=== PATIENT | male | born 1960 | race Caucasian/White ===

== ENCOUNTER 2016-07-14 14:32 | Inpatient (IN) | payer OTHER ==
[2016-07-14] MEDS ORDERED: LORazepam 1 MG TAB PO STA (15:02)
[2016-07-14] MEDS ORDERED: SODIUM CHLORIDE 0.9% 1,000 ML with MVI, ADULT NO.4 WITH VIT K 10 ML, THIAMINE 100 MG, F... IV ONE ×4 (15:30)
[2016-07-14 15:39] LABS: Basophils # (A) 0.1 k/uL (0-0.2); Basophils % (A) 1 %; CH 34.1; CHCM 32.8; Eosinophils # (A) 0.1 k/uL (0-0.7); Eosinophils % (A) 2 %; HCT 47.3 % (39.0-53.0); HDW 2.07; HGB 15.2 gm/dL (13.0-17.5); Luc # (Auto) 0.29; Luc % (Auto) 4; Lymphocytes # (A) 1.9 k/uL (1.0-4.8); Lymphocytes % (A) 24 %; MCH 33.6 pg (25.0-35.0); MCHC 32.3 g/dL (31.0-37.0); MCV 104.2 fL (80.0-100.0); Macrocytosis Moderate; Mean Platelet Volume 6.5; Monocytes # (A) 0.5 k/uL (0-1.0); Monocytes % (A) 6 %; Neutrophils # (A) 5.1 k/uL (1.3-7.7); Neutrophils % (A) 64 %; RBC 4.54 m/uL (4.30-5.90); RDW 14.6 % (11.5-15.5)
[2016-07-14] MEDS ORDERED: ZIPRASIDONE 20 MG VIAL IM STA (15:41)
[2016-07-14 15:44] LABS: Prothrombin Time 10.6 sec (9.0-12.0)
[2016-07-14 15:54] LABS: ALT 37 U/L (21-72); AST 37 U/L (17-59); Alkaline Phosphatase 118 U/L (38-126); Anion Gap 19 mmol/L; Blood Urea Nitrogen 12 mg/dL (9-20); Calcium 8.3 mg/dL (8.4-10.2); Carbon Dioxide 15 mmol/L (22-30); Chloride 101 mmol/L (98-107); Glucose 88 mg/dL (74-99); Magnesium 1.9 mg/dL (1.6-2.3); Non-African American GFR(MDRD) 57 (>60 ml/min/1.73 sqM); Potassium 4.6 mmol/L (3.5-5.1); Sodium 135 mmol/L (137-145); Total Bilirubin 0.7 mg/dL (0.2-1.3)
[2016-07-14 16:12] LABS: Alcohol 365 mg/dL
--- NOTE | 2016-07-14 16:19 | ED ---
Psych HPI - General Chief Complaint: Psychiatric Symptoms Stated Complaint: Mental Health Time Seen by Provider: 07/14/16 14:45 Source: patient, police, RN notes reviewed Mode of arrival: ambulatory - History of Present Illness Initial Comments: This is a 56-year-old male history of alcoholism was brought in by [place] police department for evaluation for hallucinations. Patient apparently is a known drinker but he call police today because he stated people were in his house worshiping Satan and he was trying to get them on of his living room. He was brought in under petition. He denies any abnormalities at this time denies any fevers chills or sweats does admit to drinking. Denies any trauma denies any other problems. MD Complaint: altered mental status - Related Data Home Medications Medication Instructions Recorded Confirmed busPIRone HCL 15 mg PO 5XD 04/22/16 07/14/16 LORazepam [Ativan] 1 mg PO BID 07/14/16 07/14/16 Pantoprazole Sodium [Protonix] 40 mg PO DAILY 07/14/16 07/14/16 Zolpidem [Ambien] 10 mg PO HS 07/14/16 07/14/16 Allergies Allergy/AdvReac Type Severity Reaction Status Date / Time tramadol Allergy Mild Itching Verified 07/14/16 16:00 Review of Systems ROS Statement: Those systems with pertinent positive or pertinent negative responses have been documented in the HPI. ROS Other: All systems not noted in ROS Statement are negative. Past Medical History Past Medical History: GERD/Reflux, Osteoarthritis (OA), Seizure Disorder Additional Past Medical History / Comment(s): RECENT URI, DONE WITH ANTIBIOTICS , STILL ON STEROIDS. 1 SEIZURE APPROX 2010, alcoholism History of Any Multi-Drug Resistant Organisms: None Reported Past Surgical History: Appendectomy, Hernia Repair, Orthopedic Surgery, Tonsillectomy Additional Past Surgical History / Comment(s): multiple hernia surg., knee arthroscopies, Past Anesthesia/Blood Transfusion Reactions: No Reported Reaction Past Psychological History: Anxiety, Depression Additional Psychological History / Comment(s): Depression history and current depression from family issues currently Smoking Status: Former smoker Past Alcohol Use History: Abuse, Daily, Heavy Additional Past Alcohol Use History / Comment(s): States he stopped smoking and drinking . STATES HE IS DRINKING 2 BEERS A DAY. Past Drug Use History: Cocaine, Prescription Drug Abuse - Past Family History Father Family Medical History: Coronary Artery Disease (CAD), Myocardial Infarction (ID ) Mother Family Medical History: Cancer General Exam - General Exam Comments Initial Comments: This is a well-developed well-nourished awake alert oriented 3 male he is anxious. He does have the smell of alcohol on his breath Limitations: no limitations General appearance: alert, anxious Head exam: Present: atraumatic, normocephalic, normal inspection Eye exam: Present: normal appearance, PERRL, EOMI. Absent: scleral icterus, conjunctival injection, periorbital swelling ENT exam: Present: normal exam, mucous membranes moist Neck exam: Present: normal inspection. Absent: tenderness, meningismus, lymphadenopathy Respiratory exam: Present: normal lung sounds bilaterally. Absent: respiratory distress, wheezes, rales, rhonchi, stridor Cardiovascular Exam: Present: normal rhythm, tachycardia, normal heart sounds. Absent: systolic murmur, diastolic murmur, rubs, gallop, clicks GI/Abdominal exam: Present: soft, normal bowel sounds. Absent: distended, tenderness, guarding, rebound, rigid Extremities exam: Present: normal inspection, full ROM, normal capillary refill. Absent: tenderness, pedal edema, joint swelling, calf tenderness Back exam: Present: normal inspection Neurological exam: Present: alert, oriented X3, CN II-XII intact Psychiatric exam: Present: agitated, anxious, manic Skin exam: Present: warm, dry, intact, normal color. Absent: rash Course Vital Signs 07/14/16 14:36 Temperature 97.4 F L Pulse Rate 116 H Respiratory 20 Rate Blood Pressure 142/91 O2 Sat by Pulse 93 L Oximetry - Reevaluation(s) Reevaluation #1: 07/14/16 18:16 Patient did require chemical sedation due to erratic behavior and some threatening behavior toward staff. He did respond well to Geodon and Ativan. Medical Decision Making - Medical Decision Making I did discuss the findings with Dr. Sainz. Patient be admitted for evaluation for alcohol withdrawal syndrome hallucinosis and psychosis. She is a heavy drinker the fears for withdrawal syndrome. Due to the interstitial markings patient did state he smokes and likely has "bad lungs" shot of Rocephin. - Lab Data Result diagrams: 07/14/16 15:25 07/14/16 15:25 Lab Results 07/14/16 07/14/16 07/14/16 Range/Units 15:25 15:25 15:25 WBC 8.0 (3.8-10.6) k/uL RBC 4.54 (4.30-5.90) m/uL Hgb 15.2 (13.0-17.5) gm/dL Hct 47.3 (39.0-53.0) % MCV 104.2 H (80.0-100.0) fL MCH 33.6 (25.0-35.0) pg MCHC 32.3 (31.0-37.0) g/dL RDW 14.6 (11.5-15.5) % Plt Count 255 (150-450) k/uL Neutrophils % 64 % Lymphocytes % 24 % Monocytes % 6 % Eosinophils % 2 % Basophils % 1 % Neutrophils # 5.1 (1.3-7.7) k/uL Lymphocytes # 1.9 (1.0-4.8) k/uL Monocytes # 0.5 (0-1.0) k/uL Eosinophils # 0.1 (0-0.7) k/uL Basophils # 0.1 (0-0.2) k/uL Macrocytosis Moderate PT 10.6 (9.0-12.0) sec INR 1.0 (<1.1) Sodium 135 L (137-145) mmol/L Potassium 4.6 (3.5-5.1) mmol/L Chloride 101 (98-107) mmol/L Carbon Dioxide 15 L (22-30) mmol/L Anion Gap 19 mmol/L BUN 12 (9-20) mg/dL Creatinine 1.30 H (0.66-1.25) mg/dL Est GFR (MDRD) Af Amer >60 (>60 ml/min/1.73 sqM) Est GFR (MDRD) Non-Af 57 (>60 ml/min/1.73 sqM) Glucose 88 (74-99) mg/dL Calcium 8.3 L (8.4-10.2) mg/dL Magnesium 1.9 (1.6-2.3) mg/dL Total Bilirubin 0.7 (0.2-1.3) mg/dL AST 37 (17-59) U/L ALT 37 (21-72) U/L Alkaline Phosphatase 118 (38-126) U/L Ammonia (<30) umol/L Total Protein 7.0 (6.3-8.2) g/dL Albumin 4.0 (3.5-5.0) g/dL Serum Alcohol 365 mg/dL 07/14/16 Range/Units 15:25 WBC (3.8-10.6) k/uL RBC (4.30-5.90) m/uL Hgb (13.0-17.5) gm/dL Hct (39.0-53.0) % MCV (80.0-100.0) fL MCH (25.0-35.0) pg MCHC (31.0-37.0) g/dL RDW (11.5-15.5) % Plt Count (150-450) k/uL Neutrophils % % Lymphocytes % % Monocytes % % Eosinophils % % Basophils % % Neutrophils # (1.3-7.7) k/uL Lymphocytes # (1.0-4.8) k/uL Monocytes # (0-1.0) k/uL Eosinophils # (0-0.7) k/uL Basophils # (0-0.2) k/uL Macrocytosis PT (9.0-12.0) sec INR (<1.1) Sodium (137-145) mmol/L Potassium (3.5-5.1) mmol/L Chloride (98-107) mmol/L Carbon Dioxide (22-30) mmol/L Anion Gap mmol/L BUN (9-20) mg/dL Creatinine (0.66-1.25) mg/dL Est GFR (MDRD) Af Amer (>60 ml/min/1.73 sqM) Est GFR (MDRD) Non-Af (>60 ml/min/1.73 sqM) Glucose (74-99) mg/dL Calcium (8.4-10.2) mg/dL Magnesium (1.6-2.3) mg/dL Total Bilirubin (0.2-1.3) mg/dL AST (17-59) U/L ALT (21-72) U/L Alkaline Phosphatase (38-126) U/L Ammonia 21 (<30) umol/L Total Protein (6.3-8.2) g/dL Albumin (3.5-5.0) g/dL Serum Alcohol mg/dL - Radiology Data Radiology results: report reviewed (CAT scan was reviewed no acute findings. X- ray shows some evidence of increased interstitial markings.), image reviewed Disposition Clinical Impression: Acute psychosis, Alcohol withdrawal, Alcohol intoxication, Acute anxiety Disposition: ADMITTED IP TO THIS HOSP Condition: Stable
--- NOTE | 2016-07-14 18:05 | XR ---
EXAMINATION TYPE: XR chest 1V portable DATE OF EXAM: 07/14/2016 5:56 PM COMPARISON: 02/02/2016 HISTORY: Altered mental status TECHNIQUE: Single frontal view of the chest is obtained. FINDINGS: Heart size is normal. There is coarse interstitial density in both lungs with some optimal inspiration. There are no definite hilar masses. There is slight blunting of costophrenic angles. IMPRESSION: There are new interstitial pulmonary infiltrates and pleural reaction compared to last e xam. No gross heart failure.
--- NOTE | 2016-07-14 18:15 | CT ---
EXAMINATION TYPE: CT brain wo con DATE OF EXAM: 07/14/2016 6:06 PM COMPARISON: 12/21/2015 HISTORY: Patient unresponsive at time of exam. Altered mental status. CT DLP: 873.6 mGycm Automated exposure control for dose reduction was used. FINDINGS: There is cerebral cortical atrophy. There is no mass effect nor midline shift. There is mild enlargem ent of the ventricles. The calvarium is intact. There is no sign of intracranial hemorrhage. IMPRESSION: Cerebral atrophy and normal pressure type hydrocephalus. No acute intracranial abnormality. No change compared to last exam.
[2016-07-14] MEDS ORDERED: NALOXONE 0.4 MG/ML 1 ML VIAL IV PRN (18:19)
[2016-07-14] MEDS ORDERED: LORazepam 2 MG/ML SYRINGE IV PRN ×3 (18:22)
[2016-07-14] MEDS ORDERED: THIAMINE 100 MG/ML 2 ML VIAL IM STA (18:22)
[2016-07-14] MEDS ORDERED: ZIPRASIDONE 20 MG VIAL IM PRN (18:23)
[2016-07-14] MEDS ORDERED: SODIUM CHLORIDE 0.9% 1,000 ML IV SCH (18:30)
[2016-07-14] MEDS ORDERED: THIAMINE 100 MG TAB PO SCH (19:00)
[2016-07-15 03:31] LABS: Glucose,Whole Blood 47 mg/dL (75-99)
[2016-07-15 03:31] LABS: Glucose,Whole Blood 50 mg/dL (75-99)
[2016-07-15] MEDS: busPIRone HCl 5 MG TAB PO SCH ×3 (03:43→06:12)
[2016-07-15 03:52] LABS: Glucose,Whole Blood 66 mg/dL (75-99)
[2016-07-15 04:09] LABS: Glucose,Whole Blood 99 mg/dL (75-99)
[2016-07-15 07:28] LABS: Glucose,Whole Blood 74 mg/dL (75-99)
[2016-07-15] MEDS ORDERED: PANTOPRAZOLE 40 MG TABLET PO SCH (07:30)
[2016-07-15 09:01] VITALS: BP 115/68; PULSE 95; RESP 18; TEMP 99.4
--- NOTE | 2016-07-15 09:08 | P.CN ---
Psychiatric Consult - . Consult date: 07/15/16 Consult:: IDENTIFYING DATA: Mr. Villalpando is a 56-year-old male who has a history of alcohol use disorder. HISTORY OF PRESENT ILLNESS: The [place] police brought Mr. Villalpando to the ED for evaluation of hallucinations. According to the ED assessment he called the police because he stated people were just house worshiping Satan and he was trying to get them out of the home. The police completed a petition for hospitalization. Ms Villalpando stated that he stopped drinking about 2 days prior to admission. On the day of admission he alleged several people working on a lattice along his carport. He did not know where he believes that they're a fairly related with a local mu-ism. He stated that they were not helping him but would not leave his property. Therefore, he called the police. He stated that the people had left before the police arrived giving the police the impression that he was "hallucinating". During our interview he denied that these people were worshiping Satan. He admitted that he has had periods of confusion and "hallucinations" at other times his life when he stopped drinking alcohol. We talked about his alcohol use problems and his past history of substance abuse treatment. He stated he has no interest in reentering a substance abuse treatment program. PAST PSYCHIATRIC HISTORY: He denied psychiatric hospitalizations. He has met with a mental health professional "in the past". SUBSTANCE USE HISTORY: He has been using alcohol "most of my life." He usually consumes 12 cans of beer per day. As mentioned above he had attempted to stop alcohol use 2 days prior to his admission. He has been involved in "4 or 5" substance abuse treatment programs; the most recent was last summer briefly at [facility]. His longest period of abstinence was 8 months in [address] monitored for abstinence following a assault and battery conviction. He lost his [place] driver's license in 2000 following multiple DUI convictions. He has attended AA in the past but is no interest in further participation in Alcoholics Anonymous. He denied use of other drugs to get high, help him sleep or changes mood. LEGAL HISTORY: He has had 3 DUI convictions the last was in 2000. He had an assault and battery charge and 2014. He denied felony charges or imprisonments. SOCIAL HISTORY: He is and has adult children. He lives alone in a trailer. 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 He alleges that his fiance an employment assistant drive him and his equipment to the painting jobs. MENTAL STATUS EXAM: He presented as a casually groomed tremulous-appearing middle-aged male. He was pleasant on approach and attended to the interview. He had no distinguishing features or prominent abnormalities. He had a distressed facial expression. He was alert and oriented to person, place and time. He had a moderate hand tremor bilaterally. His speech was spontaneous, dysarthric with decreased volume and rhythm. His affect was blunted. He denied suicidal ideation or wishes. She denied homicidal ideation. He denied depressive cognitions such as hopelessness, helplessness and worthlessness. He did not express obsessions, phobias, ideas reference or paranoid ideation. His thinking was concrete but his associations are coherent and logical. He did not express clang associations, perseveration, neologisms or blocking. He denied hallucinations and did not appear to be responding to internal stimuli during our interview.. IMPRESSIONS: Alcohol use disorder severe (dependence), alcohol withdrawal with perceptual disturbances PLAN: Continue CIWA protocol, continue Geodon 20 mg by mouth or IM twice a day when necessary for acute agitation, encourage participation in substance abuse treatment program and if agrees social work may assist with referral. There is no indication for transfer to the psychiatric unit at this time. Thank you for the consult. 07/15/16 08:47
--- NOTE | 2016-07-15 09:33 | P.HPIM ---
History of Present Illness History of alcoholism and alcohol intoxication was brought to the emergency room by [facility] for evaluation of hallucinations. Patient will be admitted for treatment of withdrawals. Psychiatric consultation ordered. This morning patient awake and alert some babbling noted with conversation but orientated. Noted bilateral hand tremors. Noted pneumonitis on chest x-ray Rocephin will be re started Review of Systems Neurological: Reports change in mentation, Reports confusion Psychiatric: Reports hallucinations Past Medical History Past Medical History: GERD/Reflux, Osteoarthritis (OA), Seizure Disorder, Syncope Additional Past Medical History / Comment(s): 1 SEIZURE APPROX 2010, alcoholism , alcohol withdrawal syndrome, delirium tremors, past acute psychosis, DJD, diverticular disease, SBO 2ndary to incarcerated R inguinal hernia. History of Any Multi-Drug Resistant Organisms: None Reported Past Surgical History: Appendectomy, Heart Catheterization, Hernia Repair, Joint Replacement, Orthopedic Surgery, Tonsillectomy Additional Past Surgical History / Comment(s): Colonoscopies and polypectomies, 10/21/15 normal cardiac cath, multiple inguinal hernia surg., bilateral knee arthroscopies and pt states bilateral knee arthroplasties. Past Anesthesia/Blood Transfusion Reactions: No Reported Reaction Past Psychological History: Anxiety, Depression Additional Psychological History / Comment(s): Depression history-pt states depression "same as always". Denies suicidal thoughts/plans or wishing he were . Pt lives alone. He uses no assistive device. He does not drive, his fiancee takes him to appointments. Smoking Status: Former smoker Past Alcohol Use History: Abuse, Daily, Heavy Additional Past Alcohol Use History / Comment(s): Pt states he normally drinks a 12 pack of beer a day. He states he stopped drinking liquor. Pt started smoking in 1973 and quit in 2013. Past Drug Use History: Cocaine Additional Drug Use History / Comment(s): Pt states in the past he had used cocaine but none for years. He denies ever abusing prescription drugs. - Past Family History Father Family Medical History: Coronary Artery Disease (CAD), Myocardial Infarction (AK ) Additional Family Medical History / Comment(s): Father of a AK at the age of 73 yrs. Mother Family Medical History: Cancer Additional Family Medical History / Comment(s): Mother had breast cancer. She is 81 yrs old and now healthy. Medications and Allergies Home Medications Medication Instructions Recorded Confirmed Type busPIRone HCL 15 mg PO 5XD 04/22/16 07/14/16 History LORazepam [Ativan] 1 mg PO BID 07/14/16 07/14/16 History Pantoprazole Sodium [Protonix] 40 mg PO DAILY 07/14/16 07/14/16 History Zolpidem [Ambien] 10 mg PO HS 07/14/16 07/14/16 History Allergies Allergy/AdvReac Type Severity Reaction Status Date / Time tramadol Allergy Mild Itching Verified 07/14/16 16:00 Physical Exam Vitals: Vital Signs Temp Pulse Pulse Resp BP BP Pulse Ox 07/15/16 07:00 99.4 F 95 18 115/68 92 L 07/14/16 22:51 97.6 F 101 H 17 123/69 96 07/14/16 19:31 97 F L 97 17 136/88 98 07/14/16 18:42 98.0 F 89 20 98/58 96 Intake and Output 07/14/16 07/15/16 07/15/16 22:59 06:59 14:59 Intake Total 200 1470 Output Total 700 Balance 200 770 Intake: Intake, IV Titration 200 780 Amount Sodium Chloride 0.9% 1, 200 700 000 ml @ 100 mls/hr IV . Q10H7M ONE with Mvi, Adult No.4 with Vit K 10 ml with Thiamine 100 mg with Folic Acid 1 mg Rx#: [id number] Sodium Chloride 0.9% 1, 80 000 ml @ 80 mls/hr IV . [id number] [facility] Rx#:[id number] Oral 690 Output: Urine 700 Other: Voiding Method Urinal - Constitutional General appearance: average body habitus, mild distress - EENT Eyes: PERRLA Ears: bilateral: normal - Neck Neck: normal ROM - Respiratory Respiratory: bilateral: CTA - Cardiovascular Rhythm: regular - Integumentary Integumentary: normal - Neurologic Bilateral hand tremors Neurologic: CNII-XII intact - Musculoskeletal Musculoskeletal: generalized weakness - Psychiatric Psychiatric: A&O x's 3 Results CBC & Chem 7: 07/14/16 15:25 07/14/16 15:25 Labs: Abnormal Lab Results - Last 24 Hours (Table) 07/14/16 07/15/16 07/15/16 Range/Units 22:00 03:15 03:16 POC Glucose (mg/dL) 47 L 50 L (75-99) mg/dL U Benzodiazepines Scrn Detected H (NotDetected) 07/15/16 07/15/16 Range/Units 03:39 07:14 POC Glucose (mg/dL) 66 L 74 L (75-99) mg/dL U Benzodiazepines Scrn (NotDetected) Chest x-ray: report reviewed CT Scan - head: report reviewed Thrombosis Risk Factor Assmnt - Choose All That Apply Any of the Below Risk Factors Present?: Yes Each Factor Represents 1 point: Age 41-60 years Other Risk Factors: No Other congenital or acquired thrombophilia - If yes, enter type in comment: No Thrombosis Risk Factor Assessment Total Risk Factor Score: 1 Thrombosis Risk Factor Assessment Level: Low Risk Assessment and Plan Plan: Assessment Acute psychosis alcohol withdrawal alcohol intoxication 365 Anxiety disorder Alcoholism GERD Seizure disorder Pneumonitis Plan Continue psychiatric evaluation Support alcohol withdrawal Rocephin restarted for a pneumonitis
--- NOTE | 2016-07-16 11:52 | P.DS ---
Providers Date of admission: 07/14/16 18:22 Expected date of discharge: 07/15/16 Attending physician: Carlos Sainz Consults: 07/15/16 07:10 Consult Physician Routine Consulting Provider: Tejas Antonio Reason/Comments: psycosis Do you want consulting provider notified?: Already Contacted Primary care physician: Carlos Sainz Hospital Course: 56-year-old male was admitted to the emergency room with impending DTs. Patient acute occult excavation 365. Patient was evaluated by psychiatry. History of physical was completed at 02 18. The patient left the hospital AGAINST MEDICAL ADVICE Assessment Acute alcohol intoxication level of 365 Acute psychosis alcohol withdrawal Acute anxiety Pneumonitis GERD Seizure disorder Plan Patient left AGAINST MEDICAL ADVICE Patient Condition at Discharge: Stable Plan - Discharge Summary Discharge Medication List busPIRone HCL 15 mg PO 5XD 04/22/16 [History] LORazepam [Ativan] 1 mg PO BID 07/14/16 [History] Pantoprazole Sodium [Protonix] 40 mg PO DAILY 07/14/16 [History] Zolpidem [Ambien] 10 mg PO HS 07/14/16 [History] Follow up Appointment(s)/Referral(s): Carlos Sainz MD [Primary Care Provider] - 1-2 days Discharge Disposition: Left Against Medical Advice
== END 2016-07-15 10:40 | disposition left against medical advice (07) | DRG 894 ==
LOC: EC 14:32 → 5MS5E 18:22
PROVIDERS: ADMIT Family Medicine; ATTEND Family Medicine
DX: F10.232 Alcohol dependence with withdrawal with perceptual disturbance (principal); J18.9 Pneumonia, unspecified organism; F23 Brief psychotic disorder; F32.9 Major depressive disorder, single episode, unspecified; F17.200 Nicotine dependence, unspecified, uncomplicated; Y90.8 Blood alcohol level of 240 mg/100 ml or more; F41.9 Anxiety disorder, unspecified; G40.909 Epilepsy, unspecified, not intractable, without status epilepticus; K21.9 Gastro-esophageal reflux disease without esophagitis; Z82.49 Family history of ischemic heart disease and other diseases of the circulatory system; Z79.899 Other long term (current) drug therapy; Z88.6 Allergy status to analgesic agent
CPT/HCPCS: 36415; 70450; 71010; 80053; 80306; 80320; 82075; 82140; 83735; 85025; 85610; 96365; 96366; 96372; 99285

== ENCOUNTER 2016-07-18 19:56 | Emergency (ER) | payer OTHER ==
[2016-07-18 20:20] VITALS: RESP 18
[2016-07-18] MEDS ORDERED: SODIUM CHLORIDE 0.9% 500 ML IV STA (20:44)
[2016-07-18] MEDS ORDERED: DIPH,PERTUS(ACELL)TETVAC-LF 0.5 ML VIAL IM ONE (20:45)
--- NOTE | 2016-07-18 20:57 | ED ---
General Adult HPI <Rio Fisher - Last Filed: 07/18/16 21:55> - General Source: patient Mode of arrival: EMS Limitations: no limitations <Alexx Roblero - Last Filed: 07/18/16 22:23> - General Chief complaint: Fall Stated complaint: Fall-Face Lac Time Seen by Provider: 07/18/16 20:35 - History of Present Illness Initial comments: 56-year-old male regular drinker at least sixpack a day was found face down with multiple abrasions on his face. He does not recall when he went down or why. He did not wake until he was brought in by EMS in the hospital. He has no headaches no dizziness no focal numbness or weakness no fever chills previous one seizure in the past. He is trying to cut down his drinking but is not quite as yet. No chest pain abdominal pain is had a recent cough for the last several weeks with no fever or chills. He is concerned he has pneumonia. ( Alexx Roblero) - Related Data Home Medications Medication Instructions Recorded Confirmed busPIRone HCL 15 mg PO Q5H 04/22/16 07/18/16 LORazepam [Ativan] 1 mg PO BID 07/14/16 07/18/16 Pantoprazole Sodium [Protonix] 40 mg PO DAILY 07/14/16 07/18/16 Zolpidem [Ambien] 10 mg PO HS 07/14/16 07/18/16 Previous Rx's Medication Instructions Recorded PHENobarbital 30 mg PO DIRECTED #20 tablet 07/18/16 Allergies Allergy/AdvReac Type Severity Reaction Status Date / Time tramadol Allergy Mild Itching Verified 07/18/16 20:20 Review of Systems ROS Other: All systems not noted in ROS Statement are negative. <Rio Fisher - Last Filed: 07/18/16 21:55> ROS Other: All systems not noted in ROS Statement are negative. Constitutional: Denies: fever, weakness ENT: Denies: ear pain Respiratory: Reports: cough Cardiovascular: Reports: chest pain (Mild pain in the left lower ribs) Gastrointestinal: Denies: abdominal pain, nausea, vomiting Skin: Reports: other Neurological: Denies: headache Psychiatric: Denies: anxiety Hematological/Lymphatic: Denies: easy bleeding, easy bruising <Alexx Roblero - Last Filed: 07/18/16 22:23> ROS Statement: Those systems with pertinent positive or pertinent negative responses have been documented in the HPI. Past Medical History Past Medical History: GERD/Reflux, Osteoarthritis (OA), Seizure Disorder, Syncope Additional Past Medical History / Comment(s): 1 SEIZURE APPROX 2010, alcoholism , alcohol withdrawal syndrome, delirium tremors, past acute psychosis, DJD, diverticular disease, SBO 2ndary to incarcerated R inguinal hernia. History of Any Multi-Drug Resistant Organisms: None Reported Past Surgical History: Appendectomy, Heart Catheterization, Hernia Repair, Joint Replacement, Orthopedic Surgery, Tonsillectomy Additional Past Surgical History / Comment(s): Colonoscopies and polypectomies, 10/21/15 normal cardiac cath, multiple inguinal hernia surg., bilateral knee arthroscopies and pt states bilateral knee arthroplasties. Past Anesthesia/Blood Transfusion Reactions: No Reported Reaction Past Psychological History: Anxiety, Depression Additional Psychological History / Comment(s): Depression history-pt states depression "same as always". Denies suicidal thoughts/plans or wishing he were . Pt lives alone. He uses no assistive device. He does not drive, his fiancee takes him to appointments. Smoking Status: Former smoker Past Alcohol Use History: Abuse, Daily, Heavy Additional Past Alcohol Use History / Comment(s): Pt states he normally drinks a 12 pack of beer a day. He states he stopped drinking liquor. Pt started smoking in 1973 and quit in 2013. Past Drug Use History: Cocaine Additional Drug Use History / Comment(s): Pt states in the past he had used cocaine but none for years. He denies ever abusing prescription drugs. - Past Family History Father Family Medical History: Coronary Artery Disease (CAD), Myocardial Infarction ([place] ) Additional Family Medical History / Comment(s): Father of a [place] at the age of 73 yrs. Mother Family Medical History: Cancer Additional Family Medical History / Comment(s): Mother had breast cancer. She is 81 yrs old and now healthy. <Alexx Roblero - Last Filed: 07/18/16 22:23> General Exam Limitations: no limitations General appearance: alert, in no apparent distress Head exam: Present: atraumatic Eye exam: Present: PERRL, EOMI ENT exam: Present: normal oropharynx Respiratory exam: Present: normal lung sounds bilaterally Cardiovascular Exam: Present: regular rate, normal heart sounds GI/Abdominal exam: Present: soft. Absent: distended, tenderness Neurological exam: Present: alert, oriented X3 (Abrasions over and Tylenol nose chin face with laceration along the jawline), CN II-XII intact Psychiatric exam: Present: normal affect, normal mood Skin exam: Present: warm, dry, other (Abrasion nose chin face, one inch laceration left chin) <Alexx Roblero - Last Filed: 07/18/16 22:23> Procedures <Rio Fisher - Last Filed: 07/18/16 21:55> <Alexx Roblero - Last Filed: 07/18/16 22:23> - Procedures Initial comment: Patient declined sutures. Laceration underneath the chin measuring approximately 2 cm in total length. Linear laceration. Area prepped and cleaned with saline. Wound edges approximated and closed with Dermabond. He tolerated well. (Rio Fisher) Medical Decision Making - Lab Data Result diagrams: 07/18/16 21:05 07/18/16 21:05 <Rio Fisher - Last Filed: 07/18/16 21:55> - Lab Data Result diagrams: 07/18/16 21:05 07/18/16 21:05 - EKG Data -: EKG Interpreted by Me - Radiology Data Radiology results: report reviewed <Alexx Roblero - Last Filed: 07/18/16 22:23> - Medical Decision Making Vision wishes to go home is alert oriented we'll have him use Tylenol for his rib will have him follow-up in [address] him on phenobarbital to prevent further seizures. Declines sutures. (Alexx Roblero) - Lab Data Lab Results 07/18/16 07/18/16 07/18/16 Range/Units 21:05 21:05 21:05 WBC 7.6 (3.8-10.6) k/uL RBC 4.71 (4.30-5.90) m/uL Hgb 15.9 (13.0-17.5) gm/dL Hct 48.7 (39.0-53.0) % MCV 103.4 H (80.0-100.0) fL MCH 33.8 (25.0-35.0) pg MCHC 32.7 (31.0-37.0) g/dL RDW 14.7 (11.5-15.5) % Plt Count 297 (150-450) k/uL Neutrophils % 61 % Lymphocytes % 27 % Monocytes % 4 % Eosinophils % 2 % Basophils % 2 % Neutrophils # 4.7 (1.3-7.7) k/uL Lymphocytes # 2.1 (1.0-4.8) k/uL Monocytes # 0.3 (0-1.0) k/uL Eosinophils # 0.2 (0-0.7) k/uL Basophils # 0.2 (0-0.2) k/uL Macrocytosis Slight PT 10.1 (9.0-12.0) sec INR 1.0 (<1.1) APTT 21.4 L (22.0-30.0) sec Sodium 139 (137-145) mmol/L Potassium 4.0 (3.5-5.1) mmol/L Chloride 102 (98-107) mmol/L Carbon Dioxide 22 (22-30) mmol/L Anion Gap 15 mmol/L BUN 10 (9-20) mg/dL Creatinine 0.89 (0.66-1.25) mg/dL Est GFR (MDRD) Af Amer >60 (>60 ml/min/1.73 sqM) Est GFR (MDRD) Non-Af >60 (>60 ml/min/1.73 sqM) Glucose 130 H (74-99) mg/dL Calcium 8.6 (8.4-10.2) mg/dL Total Bilirubin 0.5 (0.2-1.3) mg/dL AST 56 (17-59) U/L ALT 33 (21-72) U/L Alkaline Phosphatase 102 (38-126) U/L Total Creatine Kinase (55-170) U/L CK-MB (CK-2) (0.0-2.4) ng/mL CK-MB (CK-2) Rel Index Troponin I (0.000-0.034) ng/mL Total Protein 6.8 (6.3-8.2) g/dL Albumin 3.7 (3.5-5.0) g/dL 07/18/16 Range/Units 21:05 WBC (3.8-10.6) k/uL RBC (4.30-5.90) m/uL Hgb (13.0-17.5) gm/dL Hct (39.0-53.0) % MCV (80.0-100.0) fL MCH (25.0-35.0) pg MCHC (31.0-37.0) g/dL RDW (11.5-15.5) % Plt Count (150-450) k/uL Neutrophils % % Lymphocytes % % Monocytes % % Eosinophils % % Basophils % % Neutrophils # (1.3-7.7) k/uL Lymphocytes # (1.0-4.8) k/uL Monocytes # (0-1.0) k/uL Eosinophils # (0-0.7) k/uL Basophils # (0-0.2) k/uL Macrocytosis PT (9.0-12.0) sec INR (<1.1) APTT (22.0-30.0) sec Sodium (137-145) mmol/L Potassium (3.5-5.1) mmol/L Chloride (98-107) mmol/L Carbon Dioxide (22-30) mmol/L Anion Gap mmol/L BUN (9-20) mg/dL Creatinine (0.66-1.25) mg/dL Est GFR (MDRD) Af Amer (>60 ml/min/1.73 sqM) Est GFR (MDRD) Non-Af (>60 ml/min/1.73 sqM) Glucose (74-99) mg/dL Calcium (8.4-10.2) mg/dL Total Bilirubin (0.2-1.3) mg/dL AST (17-59) U/L ALT (21-72) U/L Alkaline Phosphatase (38-126) U/L Total Creatine Kinase 104 (55-170) U/L CK-MB (CK-2) 2.2 (0.0-2.4) ng/mL CK-MB (CK-2) Rel Index 2.1 Troponin I <0.012 (0.000-0.034) ng/mL Total Protein (6.3-8.2) g/dL Albumin (3.5-5.0) g/dL 07/18/16 20:55 EKG 07/18/20162013 ventricular rate 90 bpm, TN interval 156 ms, QRS duration 84 ms QT interval 356 ms normal sinus rhythm low voltage EKG (Alexx Roblero) - Radiology Data Fracture eighth rib, CT brain no acute (Alexx Roblero) Disposition <Rio Fisher - Last Filed: 07/18/16 21:55> Time of Disposition: 22:17 <Alexx Roblero - Last Filed: 07/18/16 22:23> Clinical Impression: Seizure, Alcohol withdrawal, Fracture, rib, Laceration of chin, Multiple abrasions Disposition: HOME SELF-CARE Condition: Good Instructions: Alcohol Withdrawal (ED), Laceration (ED), Rib Fracture (ED) Prescriptions: PHENobarbital 30 mg PO DIRECTED #20 tablet
[2016-07-18 21:18] LABS: Basophils # (A) 0.2 k/uL (0-0.2); Basophils % (A) 2 %; CH 34.1; CHCM 33.1; Eosinophils # (A) 0.2 k/uL (0-0.7); Eosinophils % (A) 2 %; HCT 48.7 % (39.0-53.0); HDW 2.08; HGB 15.9 gm/dL (13.0-17.5); Luc # (Auto) 0.22; Luc % (Auto) 3; Lymphocytes # (A) 2.1 k/uL (1.0-4.8); Lymphocytes % (A) 27 %; MCH 33.8 pg (25.0-35.0); MCHC 32.7 g/dL (31.0-37.0); MCV 103.4 fL (80.0-100.0); Macrocytosis Slight; Mean Platelet Volume 7.3; Monocytes # (A) 0.3 k/uL (0-1.0); Monocytes % (A) 4 %; Neutrophils # (A) 4.7 k/uL (1.3-7.7); Neutrophils % (A) 61 %; RBC 4.71 m/uL (4.30-5.90); RDW 14.7 % (11.5-15.5); WBC 7.6 k/uL (3.8-10.6); WBC (Perox) 7.59
[2016-07-18] MEDS ORDERED: busPIRone HCl 10 MG TAB PO STA (21:26)
[2016-07-18 21:31] LABS: ALT 33 U/L (21-72); AST 56 U/L (17-59); Alkaline Phosphatase 102 U/L (38-126); Anion Gap 15 mmol/L; Blood Urea Nitrogen 10 mg/dL (9-20); Calcium 8.6 mg/dL (8.4-10.2); Carbon Dioxide 22 mmol/L (22-30); Chloride 102 mmol/L (98-107); Creatine Kinase 104 U/L (55-170); Glucose 130 mg/dL (74-99); Non-African American GFR(MDRD) >60 (>60 ml/min/1.73 sqM); Sodium 139 mmol/L (137-145); Total Bilirubin 0.5 mg/dL (0.2-1.3); Total Protein 6.8 g/dL (6.3-8.2)
[2016-07-18 21:34] VITALS: PULSE 101
[2016-07-18 21:34] LABS: Partial Thromboplastin Time 21.4 sec (22.0-30.0); Prothrombin Time 10.1 sec (9.0-12.0)
--- NOTE | 2016-07-18 21:36 | CT ---
EXAMINATION TYPE: CT brain wo con DATE OF EXAM: 07/18/2016 9:25 PM COMPARISON: 07/14/2016 HISTORY: 56-year-old male complains of syncopal episode today. Patient has multiple facial and body lacerations. TECHNIQUE: Examination was done in axial plane without intravenous contrast. Coronal and sagittal r econstructions performed. CT DLP: 760.5 mGycm Automated exposure control for dose reduction was used. FINDINGS: There is no evidence of acute intracranial hemorrhage, acute ischemic changes, mass, mass-effect, or extra-axial fluid collection. There is no effacement of cerebral sulci or basal subarachnoid cister ns. There is no midline shift. Otero-white matter distinction is preserved. There is mild generalized atrophy and mild periventricular white matter hypodensities. There is mild to moderate hydrocephalus redemonstrated with evidence ratio of 0.40. Paranasal sinuses and mastoid air cells are well pneumatized. Orbits and globes are intact. IMPRESSION: 1. No acute intracranial abnormality seen. 2. Stable cbfr-[id number]-[id number] ventriculomegaly probably in part due to central cerebral atrophy. Correla te for a component of NPH.
--- NOTE | 2016-07-18 21:38 | XR ---
EXAMINATION TYPE: XR chest 2V DATE OF EXAM: 07/18/2016 9:24 PM COMPARISON: 07/14/2016 HISTORY: 56-year-old male with syncope, fall today TECHNIQUE: Frontal and lateral views FINDINGS: There is a mildly displaced fracture of the eighth posterolateral left rib. Mild diffuse interstitial and peribronchial opacities persist. No nina consolidation or pleural effusion. No pneumothorax. IMPRESSION: 1. Mildly displaced fracture of the left posterolateral eighth rib. 2. No underlying pleural effusion or pneumothorax. 3. However, there are interstitial and peribronchial densities. Correlate for possible etiologies inc luding mild CHF, bronchitis, uncontrolled asthma, or atypical pneumonias.
[2016-07-18 21:44] LABS: Creatine Kinase MB 2.2 ng/mL (0.0-2.4); Troponin I <0.012 ng/mL (0.000-0.034)
[2016-07-18] MEDS ORDERED: TOPICAL SKIN ADHESIVE 1 EACH AMP TOPICAL ONE (21:51)
[2016-07-18 22:24] VITALS: BP 105/94; TEMP 98.2
[2016-07-20 04:23] LABS: Glucose,Whole Blood 123 mg/dL (75-99)
== END 2016-07-18 22:33 | disposition home or self-care (01) ==
LOC: EC 19:56
DX: S22.32XA Fracture of one rib, left side, initial encounter for closed fracture (principal); S01.81XA Laceration without foreign body of other part of head, initial encounter; R56.9 Unspecified convulsions; F10.239 Alcohol dependence with withdrawal, unspecified; K21.9 Gastro-esophageal reflux disease without esophagitis; M19.90 Unspecified osteoarthritis, unspecified site; F32.9 Major depressive disorder, single episode, unspecified; F41.9 Anxiety disorder, unspecified; Z23 Encounter for immunization; Z87.891 Personal history of nicotine dependence; Z79.899 Other long term (current) drug therapy; Z88.6 Allergy status to analgesic agent; W19.XXXA Unspecified fall, initial encounter; Y92.89 Other specified places as the place of occurrence of the external cause
CPT/HCPCS: 36415; 70450; 71020; 80053; 82550; 82553; 84484; 85025; 85610; 85730; 90471; 90715; 93005; 99285

== ENCOUNTER 2016-10-27 08:27 | Emergency (ER) | payer MEDICARE, OTHER ==
[2016-10-27] MEDS ORDERED: LORazepam 2 MG/ML SYRINGE IV STA (08:56)
[2016-10-27] MEDS ORDERED: ONDANSETRON 4 MG/2 ML VIAL IVP STA (08:56)
[2016-10-27] MEDS ORDERED: SODIUM CHLORIDE 0.9% 1,000 ML IV STA ×2 (08:56)
--- NOTE | 2016-10-27 09:17 | ED ---
General Adult HPI - General Chief complaint: Nausea/Vomiting/Diarrhea Stated complaint: vomiting 6 weeks Time Seen by Provider: 10/27/16 08:47 Source: patient, RN notes reviewed Mode of arrival: wheelchair Limitations: no limitations - History of Present Illness Initial comments: Patient is a 56-year-old male who presents emergency room today with a chief complaint of nausea vomiting on and off over the last 6 weeks. He does admit that he had a difficult time eating. Does admit to being a daily drinker. States last drink was last night. Patient states that has had increased nausea vomiting difficult time keeping anything down. Does admit some abdominal pain worse on the left side of the abdomen. He denies any other complaints or associated symptoms at this time. Patient denies any recent fever, chills, shortness of breath, chest pain, back pain, numbness or tingling, dysuria or hematuria, constipation or diarrhea, headaches or visual changes, or any other complaints. - Related Data Home Medications Medication Instructions Recorded Confirmed Pantoprazole Sodium [Protonix] 40 mg PO BID 07/14/16 10/27/16 Zolpidem [Ambien] 10 mg PO HS 07/14/16 10/27/16 Hydrocodone/Acetaminophen [[place] 1 tab PO DAILY PRN 10/27/16 10/27/16 7.5-325 Tablet] busPIRone HCl [Buspar] 10 mg PO BID 10/27/16 10/27/16 Previous Rx's Medication Instructions Recorded ALPRAZolam [Xanax] 1 mg PO Q8HR #10 tab 10/27/16 Ondansetron Odt [Zofran ODT] 4 mg PO Q8HR PRN #20 tab 10/27/16 cloNIDine HCL [Catapres] 0.1 mg PO BID #6 tab 10/27/16 Allergies Allergy/AdvReac Type Severity Reaction Status Date / Time tramadol AdvReac Mild Itching Verified 10/27/16 09:37 Review of Systems ROS Statement: Those systems with pertinent positive or pertinent negative responses have been documented in the HPI. ROS Other: All systems not noted in ROS Statement are negative. Past Medical History Past Medical History: GERD/Reflux, Osteoarthritis (OA), Seizure Disorder, Syncope Additional Past Medical History / Comment(s): 1 SEIZURE APPROX 2010, alcoholism , alcohol withdrawal syndrome, delirium tremors, past acute psychosis, DJD, diverticular disease, SBO 2ndary to incarcerated R inguinal hernia. History of Any Multi-Drug Resistant Organisms: None Reported Past Surgical History: Appendectomy, Heart Catheterization, Hernia Repair, Joint Replacement, Orthopedic Surgery, Tonsillectomy Additional Past Surgical History / Comment(s): Colonoscopies and polypectomies, 10/21/15 normal cardiac cath, multiple inguinal hernia surg., bilateral knee arthroscopies and pt states bilateral knee arthroplasties. Past Anesthesia/Blood Transfusion Reactions: No Reported Reaction Past Psychological History: Anxiety, Depression Additional Psychological History / Comment(s): Depression history-pt states depression "same as always". Denies suicidal thoughts/plans or wishing he were . Pt lives alone. He uses no assistive device. He does not drive, his fiancee takes him to appointments. Smoking Status: Former smoker Past Alcohol Use History: Abuse, Daily, Heavy Additional Past Alcohol Use History / Comment(s): Pt states he normally drinks a 12 pack of beer a day. He states he stopped drinking liquor. Pt started smoking in 1973 and quit in 2013. Past Drug Use History: Cocaine Additional Drug Use History / Comment(s): Pt states in the past he had used cocaine but none for years. He denies ever abusing prescription drugs. - Past Family History Father Family Medical History: Coronary Artery Disease (CAD), Myocardial Infarction ([place] ) Additional Family Medical History / Comment(s): Father of a [place] at the age of 73 yrs. Mother Family Medical History: Cancer Additional Family Medical History / Comment(s): Mother had breast cancer. She is 81 yrs old and now healthy. General Exam - General Exam Comments Initial Comments: General: The patient is awake and alert, in no distress, and does not appear acutely ill. Eye: Pupils are equal, round and reactive to light, extra-ocular movements are intact. No nystagmus. There is normal conjunctiva bilaterally. No signs of icterus. Ears, nose, mouth and throat: There are moist mucous membranes and no oral lesions. Neck: The neck is supple, there is no tenderness or JVD. Cardiovascular: There is a regular rate and rhythm. No murmur, rub or gallop is appreciated. Respiratory: Lungs are clear to auscultation, respirations are non-labored, breath sounds are equal. No wheezes, stridor, rales, or rhonchi. Gastrointestinal: Normal appearance abdomen. Normal bowel sounds. Abdomen soft on palpation. Patient does have mild tenderness left upper and lower quadrants. No rebound tenderness. No Guarding. No CVA tenderness. Musculoskeletal: Normal ROM, no tenderness. Strength 5/5. Sensation intact. Pulses equal bilaterally 2+. Neurological: A&O x 3. CN II-XII intact, There are no obvious motor or sensory deficits. Coordination appears grossly intact. Speech is normal. Skin: Skin is warm and dry and no rashes or lesions are noted. Psychiatric: Cooperative, appropriate mood & affect, normal judgment. Limitations: no limitations Course Vital Signs 10/27/16 08:28 Temperature 97.8 F Pulse Rate 75 Respiratory 20 Rate Blood Pressure 141/82 O2 Sat by Pulse 95 Oximetry Medical Decision Making - Medical Decision Making Patient's CT of the abdomen and pelvis reviewed and shows no significant new or acute findings to account for the patient's clinical symptoms. Clock diverticulosis demonstrated without convincing evidence for acute diverticulitis early. Possible duodenitis similar to prior study. Patient labs been reviewed patient does admit to feeling better here in the emergency room after nausea medication. Patient will be discharged home advised follow- up with his family doctor in the next 1-2 days. Advised return if any symptoms increase or worsen or for any other concerns. patient does admit to being a daily drinker. He does admit that like to try to stop drinking. Will be given short prescription of Xanax to help withdrawals along with Catapres. - Lab Data Result diagrams: 10/27/16 09:42 10/27/16 09:42 Lab Results 10/27/16 10/27/16 10/27/16 Range/Units 09:42 09:42 12:08 WBC 5.7 (3.8-10.6) k/uL RBC 4.04 L (4.30-5.90) m/uL Hgb 14.3 (13.0-17.5) gm/dL Hct 43.8 (39.0-53.0) % MCV 108.4 H (80.0-100.0) fL MCH 35.3 H (25.0-35.0) pg MCHC 32.6 (31.0-37.0) g/dL RDW 14.2 (11.5-15.5) % Plt Count 187 (150-450) k/uL Manual Slide Review Performed RBC Morphology Normal Macrocytosis Marked Sodium 144 (137-145) mmol/L Potassium 3.1 L (3.5-5.1) mmol/L Chloride 106 (98-107) mmol/L Carbon Dioxide 22 (22-30) mmol/L Anion Gap 16 mmol/L BUN 6 L (9-20) mg/dL Creatinine 0.80 (0.66-1.25) mg/dL Est GFR (MDRD) Af Amer >60 (>60 ml/min/1.73 sqM) Est GFR (MDRD) Non-Af >60 (>60 ml/min/1.73 sqM) Glucose 78 (74-99) mg/dL Calcium 7.9 L (8.4-10.2) mg/dL Total Bilirubin 1.1 (0.2-1.3) mg/dL AST 93 H (17-59) U/L ALT 46 (21-72) U/L Alkaline Phosphatase 120 (38-126) U/L Total Protein 6.5 (6.3-8.2) g/dL Albumin 3.6 (3.5-5.0) g/dL Amylase 65 (30-110) U/L Lipase 251 (23-300) U/L Urine Color Yellow Urine Appearance Clear (Clear) Urine pH 6.5 (5.0-8.0) Ur Specific [place] 1.027 (1.001-1.035) Urine Protein Trace H (Negative) Urine Glucose (UA) Negative (Negative) Urine Ketones 1+ H (Negative) Urine Blood Negative (Negative) Urine Nitrite Negative (Negative) Urine Bilirubin Negative (Negative) Urine Urobilinogen <2.0 (<2.0) mg/dL Ur Leukocyte Esterase Negative (Negative) Serum Alcohol 106 mg/dL Disposition Clinical Impression: Abdominal pain, Duodenitis, Alcoholism Disposition: HOME SELF-CARE Condition: Good Instructions: Abdominal Pain (ED) Additional Instructions: please continue previous to prescribed as reflux medication. Please use nausea medication as prescribed and medications of Xanax and clonidine for withdrawal type symptoms from alcohol. Please follow family doctor over the next 2 days. Please return for any other concerns. Prescriptions: ALPRAZolam [Xanax] 1 mg PO Q8HR #10 tab cloNIDine HCL [Catapres] 0.1 mg PO BID #6 tab Ondansetron Odt [Zofran ODT] 4 mg PO Q8HR PRN #20 tab PRN Reason: Nausea Referrals: Claudette Edward DO [Primary Care Provider] - 1-2 days Time of Disposition: 12:41
--- NOTE | 2016-10-27 09:50 | XR ---
EXAMINATION TYPE: XR KUB DATE OF EXAM ORDERED: 10/27/2016 HISTORY: abdominal pain. COMPARISON: Previous study dated 12/07/2015. FINDINGS: There is evidence of a previous ventral hernia repair. There is mild levoscoliosis. The abdominal gas pattern is normal. There is no evidence of obstruction or free air. No unusual calc ifications are seen. There is degenerative changes in the hips and spine. IMPRESSION: NO ACUTE INTRA-ABDOMINAL ABNORMALITY.
[2016-10-27 10:11] LABS: CH 35.2; CHCM 32.6; HCT 43.8 % (39.0-53.0); HDW 2.04; HGB 14.3 gm/dL (13.0-17.5); MCH 35.3 pg (25.0-35.0); MCHC 32.6 g/dL (31.0-37.0); MCV 108.4 fL (80.0-100.0); Macrocytosis Marked; Mean Platelet Volume 7.1; RBC 4.04 m/uL (4.30-5.90); RDW 14.2 % (11.5-15.5); WBC 5.7 k/uL (3.8-10.6)
[2016-10-27 10:22] LABS: ALT 46 U/L (21-72); AST 93 U/L (17-59); Alkaline Phosphatase 120 U/L (38-126); Amylase 65 U/L (30-110); Anion Gap 16 mmol/L; Blood Urea Nitrogen 6 mg/dL (9-20); Calcium 7.9 mg/dL (8.4-10.2); Carbon Dioxide 22 mmol/L (22-30); Chloride 106 mmol/L (98-107); Glucose 78 mg/dL (74-99); Non-African American GFR(MDRD) >60 (>60 ml/min/1.73 sqM); Potassium 3.1 mmol/L (3.5-5.1); Sodium 144 mmol/L (137-145); Total Bilirubin 1.1 mg/dL (0.2-1.3); Total Protein 6.5 g/dL (6.3-8.2)
[2016-10-27 10:32] LABS: Alcohol 106 mg/dL
[2016-10-27] MEDS ORDERED: RX INFO: IV CONTRAST WAS GIVEN 1 EACH MISC MISCELLANE PRN (10:55)
[2016-10-27 11:18] LABS: Manual Review Performed; RBC Morphology Normal
--- NOTE | 2016-10-27 11:37 | CT ---
EXAMINATION TYPE: CT abdomen pelvis w con DATE OF EXAM: 10/27/2016 COMPARISON: CT abdomen and pelvis October 05, 2015 HISTORY: nausea and vomiting for 6 weeks, abdominal pain CT DLP: 499.6 mGycm, Automated Exposure Control for Dose Reduction was Utilized. CONTRAST: CT scan of the abdomen and pelvis is performed with oral and with IV Contrast, patient injected with 100 mL of Omnipaque 300. FINDINGS: LUNG BASES: There is emphysematous change with basilar fibrosis. LIVER/GB: Liver remains low dense consistent with fatty infiltration. PANCREAS: No significant abnormality is seen. SPLEEN: No significant abnormality is seen. ADRENALS: No significant abnormality is seen. KIDNEYS: A few subcentimeter low dense lesions throughout both kidneys are too small to further nadja cterize per presumed benign. BOWEL: Evaluation bowel is suboptimal secondary to lack of enteric contrast. There is no suspicious s mall or large bowel dilatation. Small hiatal hernia is redemonstrated. There is persistent moderate w all thickening of third portion of duodenal, cannot exclude duodenitis. Finding is similar to prior e xam. There are scattered diverticula throughout the colon. There is prominent sigmoid colonic diverti culosis without convincing CT evidence for diverticulitis. PROSTATE/SEMINAL VESICLES: Some central zone calcifications are seen in normal size prostate gland. LYMPH NODES: No greater than 1cm abdominal or pelvic lymph nodes are appreciated. OSSEOUS STRUCTURES: Multilevel spurring and disc space narrowing in the lumbar spine. There is promin ent Schmorl node and mild height loss involving superior L2 and L4 endplates. There is facet arthropa thy lower lumbar spine. OTHER: Coils in the right lower quadrant may be related to prior inguinal hernia repair surgery. No r ecurrent hernia is evident. IMPRESSION: No significant new or acute finding is seen to account for patient's clinical symptoms. Colonic diverticulosis redemonstrated without convincing evidence for acute diverticulitis currently. Possible duodenitis similar to prior study, clinical correlation advised.
[2016-10-27] MEDS ORDERED: POTASSIUM CHLORIDE ER 20 MEQ TAB.ER PO STA (11:54)
[2016-10-27] MEDS ORDERED: LORazepam 1 MG TAB PO STA (12:18)
[2016-10-27] MEDS ORDERED: ONDANSETRON ODT 4 MG TAB PO STA (12:18)
[2016-10-27 12:27] LABS: Appearance,Urine Clear (Clear); Bilirubin,Urine Negative (Negative); Glucose,Urine (UA) Negative (Negative); Ketones,Urine 1+ (Negative); Leukocyte Esterase,Urine Negative (Negative); Nitrite,Urine Negative (Negative); PH, Urine 6.5 (5.0-8.0); Protein,Urine Trace (Negative); Specific Gravity,Urine 1.027 (1.001-1.035); UA Billing (MACRO vs. MICRO) CHEM; Urobilinogen,Urine <2.0 mg/dL (<2.0)
[2016-10-27 13:19] VITALS: BP 146/90; PULSE 96; RESP 18; TEMP 97.6
== END 2016-10-27 13:19 | disposition home or self-care (01) ==
LOC: EC 08:27
DX: K29.80 Duodenitis without bleeding (principal); F10.20 Alcohol dependence, uncomplicated; F41.9 Anxiety disorder, unspecified; Z87.891 Personal history of nicotine dependence; Z90.49 Acquired absence of other specified parts of digestive tract; Z88.6 Allergy status to analgesic agent; Z79.899 Other long term (current) drug therapy
CPT/HCPCS: 99284; 96374; 96375; 96361 ×4; 36415; 80053; 82150; 83690; 85025; 81003; 80306; 80320; 74000; 74177; J2060; J2405; Q9967

== ENCOUNTER 2017-01-11 11:31 | Inpatient (IN) | payer MEDICARE, OTHER ==
[2017-01-11] MEDS ORDERED: THIAMINE 100 MG/ML 2 ML VIAL IM STA (12:18)
[2017-01-11] MEDS ORDERED: SODIUM CHLORIDE 0.9% 1,000 ML IV ONE (12:20)
[2017-01-11] MEDS ORDERED: ONDANSETRON 4 MG/2 ML VIAL IVP STA (12:20)
[2017-01-11] MEDS: LORazepam 2 MG/ML SYRINGE IV PRN ×8 (12:32→22:44)
[2017-01-11 12:33] LABS: Basophils % (A) 1 %; CH 36.5; CHCM 34.1; Eosinophils % (A) 0 %; HCT 47.2 % (39.0-53.0); HDW 2.06; HGB 15.7 gm/dL (13.0-17.5); Luc # (Auto) 0.11; Luc % (Auto) 2; Lymphocytes # (A) 0.5 k/uL (1.0-4.8); Lymphocytes % (A) 8 %; MCH 35.6 pg (25.0-35.0); MCHC 33.2 g/dL (31.0-37.0); MCV 107.2 fL (80.0-100.0); Macrocytosis Moderate; Mean Platelet Volume 8.2; Monocytes # (A) 0.6 k/uL (0-1.0); Monocytes % (A) 8 %; Neutrophils # (A) 5.3 k/uL (1.3-7.7); Neutrophils % (A) 81 %; RBC 4.41 m/uL (4.30-5.90); RDW 14.4 % (11.5-15.5); WBC 6.6 k/uL (3.8-10.6); WBC (Perox) 6.27
[2017-01-11 12:45] LABS: ALT 72 U/L (21-72); AST 134 U/L (17-59); Alcohol <10 mg/dL; Alkaline Phosphatase 158 U/L (38-126); Anion Gap 13 mmol/L; Blood Urea Nitrogen 7 mg/dL (9-20); Calcium 7.8 mg/dL (8.4-10.2); Carbon Dioxide 30 mmol/L (22-30); Chloride 94 mmol/L (98-107); Glucose 193 mg/dL (74-99); Non-African American GFR(MDRD) >60 (>60 ml/min/1.73 sqM); Phosphorous 4.1 mg/dL (2.5-4.5); Sodium 137 mmol/L (137-145); Total Bilirubin 1.6 mg/dL (0.2-1.3); Total Protein 6.4 g/dL (6.3-8.2)
[2017-01-11 12:53] LABS: Magnesium 0.6 mg/dL (1.6-2.3)
[2017-01-11] MEDS ORDERED: POTASSIUM CHLORIDE ER 20 MEQ TAB.ER PO STA (12:57)
[2017-01-11] MEDS ORDERED: POTASSIUM BICARB-CITRIC ACID 25 MEQ TABLET.EFF PO STA (13:11)
[2017-01-11] MEDS ORDERED: NALOXONE 0.4 MG/ML 1 ML VIAL IV PRN (13:21)
[2017-01-11] MEDS ORDERED: ONDANSETRON 4 MG/2 ML VIAL IVP PRN (13:21)
--- NOTE | 2017-01-11 13:26 | ED ---
General Adult HPI - General Chief complaint: Alcohol Stated complaint: DT Source: EMS Mode of arrival: EMS Limitations: no limitations - History of Present Illness Initial comments: 56 yo male with a pmh of alcoholism presenting for evaluation of dizziness with fall and tremors. He states his last drink was last night. When he woke up this morning he felt as though he was starting to go into DTs and tried to take a drink of wine but symptoms continued and worsened. Dizziness became so severe he fell without resulting injury. He states he has gone through DTs in the past and resulted in seizures. He has taken no medications prior to coming to ED. - Related Data Home Medications Medication Instructions Recorded Confirmed Naltrexone HCl [Revia] 50 mg PO DAILY 01/11/17 01/11/17 QUEtiapine [SEROquel] 100 mg PO HS 01/11/17 01/11/17 Previous Rx's Medication Instructions Recorded Ondansetron Odt [Zofran ODT] 4 mg PO Q8HR PRN #20 tab 10/27/16 cloNIDine HCL [Catapres] 0.1 mg PO BID #6 tab 10/27/16 Allergies Allergy/AdvReac Type Severity Reaction Status Date / Time tramadol AdvReac Mild Itching Verified 01/11/17 11:47 Review of Systems ROS Statement: Those systems with pertinent positive or pertinent negative responses have been documented in the HPI. ROS Other: All systems not noted in ROS Statement are negative. Constitutional: Denies: fever, chills Eyes: Denies: eye pain, eye discharge ENT: Denies: ear pain, throat pain Respiratory: Denies: cough, dyspnea Cardiovascular: Denies: chest pain, palpitations, dyspnea on exertion Endocrine: Denies: polydipsia, polyuria Gastrointestinal: Reports: nausea, vomiting. Denies: abdominal pain, diarrhea, constipation Genitourinary: Denies: urgency Musculoskeletal: Denies: as per HPI, back pain, arthralgia, myalgia Skin: Denies: rash, lesions Neurological: Reports: vertigo, other (tremors). Denies: weakness, numbness, paresthesias, confusion Psychiatric: Denies: anxiety, depression Hematological/Lymphatic: Denies: easy bleeding, easy bruising Past Medical History Past Medical History: GERD/Reflux, Osteoarthritis (OA), Seizure Disorder, Syncope Additional Past Medical History / Comment(s): 1 SEIZURE APPROX 2010, alcoholism , alcohol withdrawal syndrome, delirium tremors, past acute psychosis, DJD, diverticular disease, SBO 2ndary to incarcerated R inguinal hernia. History of Any Multi-Drug Resistant Organisms: None Reported Past Surgical History: Appendectomy, Heart Catheterization, Hernia Repair, Joint Replacement, Orthopedic Surgery, Tonsillectomy Additional Past Surgical History / Comment(s): Colonoscopies and polypectomies, 10/21/15 normal cardiac cath, multiple inguinal hernia surg., bilateral knee arthroscopies and pt states bilateral knee arthroplasties. Past Anesthesia/Blood Transfusion Reactions: No Reported Reaction Past Psychological History: Anxiety, Depression Smoking Status: Former smoker Past Alcohol Use History: Abuse, Daily, Heavy Past Drug Use History: Cocaine - Past Family History Father Family Medical History: Coronary Artery Disease (CAD), Myocardial Infarction ([place] ) Additional Family Medical History / Comment(s): Father of a [place] at the age of 73 yrs. Mother Family Medical History: Cancer Additional Family Medical History / Comment(s): Mother had breast cancer. She is 81 yrs old and now healthy. General Exam Limitations: no limitations General appearance: alert, anxious, in distress Head exam: Present: atraumatic, normocephalic, normal inspection Eye exam: Present: normal appearance, PERRL, EOMI. Absent: scleral icterus, conjunctival injection, periorbital swelling ENT exam: Present: normal exam, mucous membranes moist Neck exam: Present: normal inspection. Absent: tenderness, meningismus, lymphadenopathy Respiratory exam: Present: normal lung sounds bilaterally. Absent: respiratory distress, wheezes, rales, rhonchi, stridor Cardiovascular Exam: Present: normal rhythm, tachycardia, normal heart sounds. Absent: regular rate GI/Abdominal exam: Present: soft, normal bowel sounds. Absent: distended, tenderness, guarding, rebound, rigid Rectal exam: Present: deferred Extremities exam: Present: normal inspection, full ROM, normal capillary refill. Absent: tenderness, pedal edema, joint swelling, calf tenderness Back exam: Present: normal inspection Neurological exam: Present: alert, oriented X3, CN II-XII intact Psychiatric exam: Present: normal affect, normal mood Skin exam: Present: warm, dry, intact, normal color. Absent: rash Course Vital Signs 01/11/17 01/11/17 12:00 14:22 Temperature 98.7 F 99 F Pulse Rate 103 H 98 Respiratory 20 18 Rate Blood Pressure 159/94 144/89 O2 Sat by Pulse 92 L 98 Oximetry EKG Findings - EKG Comments: EKG Findings:: EKG shows normal sinus rhythm with low-voltage QRS, prolonged QT , and a ventricular rate of 94, LAZARO 136, QRS 82, QT/QTC 414/517. Medical Decision Making - Medical Decision Making 56 yo male with a pmh of alcoholism and last EtOH drink yesterday presenting for evaluation of withdrawal and concern for going into DTs. On PE he is tachycardic with tremors and noticably distressed. There is no indication of trauma from his fall. Labs obtained and showed multiple abnormalities. Will admit for treatment and prevention of DT. Admission order placed and bed request submitted. - Lab Data Result diagrams: 01/11/17 12:08 01/11/17 18:53 Lab Results 01/11/17 01/11/17 01/11/17 Range/Units 12:08 12:08 12:08 WBC 6.6 (3.8-10.6) k/uL RBC 4.41 (4.30-5.90) m/uL Hgb 15.7 (13.0-17.5) gm/dL Hct 47.2 (39.0-53.0) % MCV 107.2 H (80.0-100.0) fL MCH 35.6 H (25.0-35.0) pg MCHC 33.2 (31.0-37.0) g/dL RDW 14.4 (11.5-15.5) % Plt Count 130 L (150-450) k/uL Neutrophils % 81 % Lymphocytes % 8 % Monocytes % 8 % Eosinophils % 0 % Basophils % 1 % Neutrophils # 5.3 (1.3-7.7) k/uL Lymphocytes # 0.5 L (1.0-4.8) k/uL Monocytes # 0.6 (0-1.0) k/uL Eosinophils # 0.0 (0-0.7) k/uL Basophils # 0.0 (0-0.2) k/uL Macrocytosis Moderate Sodium 137 (137-145) mmol/L Potassium 3.0 L* (3.5-5.1) mmol/L Chloride 94 L (98-107) mmol/L Carbon Dioxide 30 (22-30) mmol/L Anion Gap 13 mmol/L BUN 7 L (9-20) mg/dL Creatinine 0.87 (0.66-1.25) mg/dL Est GFR (MDRD) Af Amer >60 (>60 ml/min/1.73 sqM) Est GFR (MDRD) Non-Af >60 (>60 ml/min/1.73 sqM) Glucose 193 H (74-99) mg/dL Calcium 7.8 L (8.4-10.2) mg/dL Phosphorus 4.1 (2.5-4.5) mg/dL Magnesium 0.6 L* (1.6-2.3) mg/dL Total Bilirubin 1.6 H (0.2-1.3) mg/dL AST 134 H (17-59) U/L ALT 72 (21-72) U/L Alkaline Phosphatase 158 H (38-126) U/L Total Protein 6.4 (6.3-8.2) g/dL Albumin 3.6 (3.5-5.0) g/dL Lipase 224 (23-300) U/L Serum Alcohol <10 mg/dL Disposition Clinical Impression: Alcohol withdrawal, Tremors of nervous system Disposition: ADMITTED IP TO THIS [facility] Decision to Admit Reason: Admit from EC Decision Date: 01/11/17 Decision Time: 13:26
[2017-01-11] MEDS: MAGNESIUM SULFATE-D5W PMX 1 GM in DEXTROSE/WATER 1 100ML.BAG IVPB SCH ×3 (13:38→23:57)
[2017-01-11] MEDS: SODIUM CHLORIDE 0.9% 1,000 ML IV SCH ×2 (13:39→14:57)
--- NOTE | 2017-01-11 15:23 | P.HPIM ---
History of Present Illness H&P Date: 01/11/17 Chief Complaint: Alcohol withdrawal This is a 56-year-old male, patient of Dr. Edward. He has a known past medical history of alcoholism, previous hospitalization for alcohol withdrawal and DTs, seizure from alcohol withdrawal, hypertension, anxiety and depression. Patient reports that he had one glass of wine this morning. Some days he drinks heavier than others. His alcohol level on admission was less then 10. However patient is having active DTs. Hands are tremoring. He was slightly tachycardic with a heart rate of 103. EKG shows a normal sinus rhythm with a prolonged QT interval 414/517 ms. Patient initially admitted to the fifth floor. We'll transfer him up to the sixth floor with telemetry monitoring. Patient denies any fever or chills or sweats. He does admit to vomiting and having 1 looser stool. Does admit to having right upper quadrant abdominal pain. Denies any chest pain or shortness of breath. Denies any burning with urination. Review of Systems Please refer to HPI otherwise unremarkable Past Medical History Past Medical History: GERD/Reflux, Osteoarthritis (OA), Seizure Disorder, Syncope Additional Past Medical History / Comment(s): 1 SEIZURE APPROX 2010, alcoholism , alcohol withdrawal syndrome, delirium tremors, past acute psychosis, DJD, diverticular disease, SBO 2ndary to incarcerated R inguinal hernia. History of Any Multi-Drug Resistant Organisms: None Reported Past Surgical History: Appendectomy, Heart Catheterization, Hernia Repair, Joint Replacement, Orthopedic Surgery, Tonsillectomy Additional Past Surgical History / Comment(s): Colonoscopies and polypectomies, 10/21/15 normal cardiac cath, multiple inguinal hernia surg., bilateral knee arthroscopies and pt states bilateral knee arthroplasties. Past Anesthesia/Blood Transfusion Reactions: No Reported Reaction Past Psychological History: Anxiety, Depression Smoking Status: Former smoker Past Alcohol Use History: Abuse, Daily, Heavy Past Drug Use History: Cocaine - Past Family History Father Family Medical History: Coronary Artery Disease (CAD), Myocardial Infarction ([place] ) Additional Family Medical History / Comment(s): Father of a [place] at the age of 73 yrs. Mother Family Medical History: Cancer Additional Family Medical History / Comment(s): Mother had breast cancer. She is 81 yrs old and now healthy. Medications and Allergies Home Medications Medication Instructions Recorded Confirmed Type Naltrexone HCl [Revia] 50 mg PO DAILY 01/11/17 01/11/17 History QUEtiapine [SEROquel] 100 mg PO HS 01/11/17 01/11/17 History Allergies Allergy/AdvReac Type Severity Reaction Status Date / Time tramadol AdvReac Mild Itching Verified 01/11/17 11:47 Physical Exam Vitals: Vital Signs Temp Pulse Resp BP Pulse Ox 01/11/17 14:22 99 F 98 18 144/89 98 01/11/17 12:00 98.7 F 103 H 20 159/94 92 L Intake and Output 01/11/17 01/11/17 01/11/17 06:59 14:59 22:59 Other: Weight 70.307 kg Patient Weight 01/12/17 06:59 Weight 70.307 kg Head normocephalic Neck supple Lungs clear to auscultation bilaterally no wheezing or crackles Heart regular rate and rhythm S1-S2, no rub or gallop Abdomen is soft nontender nondistended positive bowel sounds no hepatosplenomegaly Extremities no edema Neuro alert and orientated to 3. Hand tremors noted bilaterally Results CBC & Chem 7: 01/11/17 12:08 01/11/17 12:08 Labs: Abnormal Lab Results - Last 24 Hours (Table) 01/11/17 01/11/17 Range/Units 12:08 12:08 MCV 107.2 H (80.0-100.0) fL MCH 35.6 H (25.0-35.0) pg Plt Count 130 L (150-450) k/uL Lymphocytes # 0.5 L (1.0-4.8) k/uL Potassium 3.0 L* (3.5-5.1) mmol/L Chloride 94 L (98-107) mmol/L BUN 7 L (9-20) mg/dL Glucose 193 H (74-99) mg/dL Calcium 7.8 L (8.4-10.2) mg/dL Magnesium 0.6 L* (1.6-2.3) mg/dL Total Bilirubin 1.6 H (0.2-1.3) mg/dL AST 134 H (17-59) U/L Alkaline Phosphatase 158 H (38-126) U/L Assessment and Plan Plan: 1. Alcoholism with alcohol withdrawal: Berto patient to the sixth floor with telemetry monitoring. Patient started on the CIWA protocol with Ativan when necessary. Continue thiamine, multivitamin and folic acid. Place patient on seizure precautions. Continue IV fluids 2. Hypokalemia: Patient receiving potassium supplement. recheck potassium level at 6 PM 3. Hypomagnesemia: Patient receiving supplement. Repeat magnesium level at 6 PM 4. Acute Alcoholic hepatitis: Repeat labs in a.m. Continue with IV fluids 5. Previous history of seizure from alcohol withdrawal 6. Thrombocytopenia secondary to patient's alcoholism. Repeat labs in a.m. GI prophylaxis Protonix and DVT prophylaxis SCDs because of the thrombocytopenia Time with Patient: Greater than 30 (Greater than 50% of the total time spent in counseling and coordination of care.I performed an examination of the patient and discussed their management with the physician Accredited Farm Manager. I have reviewed the Physician Accredited Farm Manager's notes and agree with the documented findings and plan of care)
[2017-01-11 16:42] LABS: Glucose,Whole Blood 116 mg/dL (75-99)
[2017-01-11] MEDS ORDERED: FUROSEMIDE 10 MG/ML 4 ML VIAL ONE (18:31)
[2017-01-11] MEDS: THIAMINE 100 MG TAB PO SCH (20:38)
[2017-01-11] MEDS: QUEtiapine 50 MG TAB PO SCH (22:18)
[2017-01-11] MEDS: cloNIDine HCL 0.1 MG TAB PO SCH (22:19)
[2017-01-11] MEDS ORDERED: Magnesium Replacement Protocol 1 EACH MISC MISCELLANE PRN (22:42)
[2017-01-12] MEDS: MAGNESIUM SULFATE-D5W PMX 1 GM in DEXTROSE/WATER 1 100ML.BAG IVPB SCH (01:16)
[2017-01-12 05:55] LABS: Basophils % (A) 1 %; CH 34.8; CHCM 32.8; Eosinophils # (A) 0.1 k/uL (0-0.7); Eosinophils % (A) 2 %; HCT 41.2 % (39.0-53.0); HDW 2.03; HGB 14.1 gm/dL (13.0-17.5); Luc # (Auto) 0.11; Luc % (Auto) 2; Lymphocytes # (A) 1.1 k/uL (1.0-4.8); Lymphocytes % (A) 21 %; MCH 36.5 pg (25.0-35.0); MCHC 34.2 g/dL (31.0-37.0); MCV 106.6 fL (80.0-100.0); Macrocytosis Moderate; Monocytes # (A) 0.5 k/uL (0-1.0); Monocytes % (A) 9 %; Neutrophils # (A) 3.4 k/uL (1.3-7.7); Neutrophils % (A) 65 %; RBC 3.87 m/uL (4.30-5.90); RDW 13.7 % (11.5-15.5); WBC 5.2 k/uL (3.8-10.6)
[2017-01-12 06:06] LABS: ALT 57 U/L (21-72); AST 99 U/L (17-59); Alkaline Phosphatase 131 U/L (38-126); Blood Urea Nitrogen 6 mg/dL (9-20); Calcium 7.7 mg/dL (8.4-10.2); Carbon Dioxide 28 mmol/L (22-30); Glucose 85 mg/dL (74-99); Magnesium 2.1 mg/dL (1.6-2.3); Non-African American GFR(MDRD) >60 (>60 ml/min/1.73 sqM); Phosphorous 3.3 mg/dL (2.5-4.5); Potassium 3.5 mmol/L (3.5-5.1); Sodium 137 mmol/L (137-145); Total Bilirubin 1.8 mg/dL (0.2-1.3); Total Protein 5.5 g/dL (6.3-8.2)
[2017-01-12 06:16] LABS: Anion Gap 9 mmol/L; Chloride 100 mmol/L (98-107)
[2017-01-12] MEDS ORDERED: Potassium Replacement Protocol 1 EACH MISC MISCELLANE PRN (07:00)
[2017-01-12] MEDS: PANTOPRAZOLE 40 MG TABLET PO SCH (08:44)
[2017-01-12] MEDS: POTASSIUM CHLORIDE 10 MEQ, LIDOCAINE 2% INJ 10 MG in SODIUM CHLORIDE 0.9% 100 ML IV SCH ×2 (08:44→09:22)
[2017-01-12] MEDS: SODIUM CHLORIDE 0.9% 1,000 ML IV SCH ×2 (08:44→18:57)
[2017-01-12] MEDS: cloNIDine HCL 0.1 MG TAB PO SCH ×2 (08:45→21:04)
--- NOTE | 2017-01-12 09:05 | P.CNPUL ---
History of Present Illness Consult date: 01/12/17 Reason for consult: other (Alcohol withdrawal and impending DTs) History of present illness: This patient was transferred from medical floor to the ICU for elevated fever protocol patient has a long-standing history of on-call consumption, he consumes about 8-10 cans of beer almost on a daily basis This is a 56-year-old male, patient of Dr. Edward. He has a known past medical history of alcoholism , previous hospitalization for alcohol withdrawal and DTs, seizure from alcohol withdrawal, hypertension, anxiety and depression. His alcohol level on admission was less then 10. However patient is having active DTs. Hands are tremoring. He was slightly tachycardic with a heart rate of 103. EKG shows a normal sinus rhythm with a prolonged QT interval 414/517 ms. Patient initially admitted to the fifth floor. He does admit to vomiting and having 1 looser stool. Does admit to having right upper quadrant abdominal pain. Denies any chest pain or shortness of breath. Denies any burning with urination. Patient has not been drinking water and rehydrating himself, his urine output is minimal a bladder scan revealed a small amount of urine patient refused a desire to pass urine also dateline Foleys catheter placement Review of Systems Please refer to HPI otherwise unremarkable Past Medical History Past Medical History: GERD/Reflux, Osteoarthritis (OA), Seizure Disorder, Syncope Additional Past Medical History / Comment(s): 1 SEIZURE APPROX 2010, alcoholism , alcohol withdrawal syndrome, delirium tremors, past acute psychosis, DJD, diverticular disease, SBO 2ndary to incarcerated R inguinal hernia. History of Any Multi-Drug Resistant Organisms: None Reported Past Surgical History: Appendectomy, Heart Catheterization, Hernia Repair, Joint Replacement, Orthopedic Surgery, Tonsillectomy Additional Past Surgical History / Comment(s): Colonoscopies and polypectomies, 10/21/15 normal cardiac cath, multiple inguinal hernia surg., bilateral knee arthroscopies and pt states bilateral knee arthroplasties. Past Anesthesia/Blood Transfusion Reactions: No Reported Reaction Past Psychological History: Anxiety, Depression Smoking Status: Former smoker Past Alcohol Use History: Abuse, Daily, Heavy Past Drug Use History: Cocaine - Past Family History Father Family Medical History: Coronary Artery Disease (CAD), Myocardial Infarction ([place] ) Additional Family Medical History / Comment(s): Father of a [place] at the age of 73 yrs. Mother Family Medical History: Cancer Additional Family Medical History / Comment(s): Mother had breast cancer. She is 81 yrs old and now healthy. Medications and Allergies Home Medications Medication Instructions Recorded Confirmed Type Naltrexone HCl [Revia] 50 mg PO DAILY 01/11/17 01/11/17 History QUEtiapine [SEROquel] 100 mg PO HS 01/11/17 01/11/17 History Allergies Allergy/AdvReac Type Severity Reaction Status Date / Time tramadol AdvReac Mild Itching Verified 01/11/17 11:47 Physical Exam Vitals: Vital Signs Temp Pulse Resp BP Pulse Ox 01/11/17 14:22 99 F 98 18 144/89 98 01/11/17 12:00 98.7 F 103 H 20 159/94 92 L Intake and Output 01/11/17 01/11/17 01/11/17 06:59 14:59 22:59 Other: Weight 70.307 kg Patient Weight 01/12/17 06:59 Weight 70.307 kg Head atraumatic normocephalic head, HEENT examination otherwise unremarkable oral mucosa is dry Neck supple, no lymphadenopathy neck veins are prominent but no JVD is present no bruits present no thyromegaly Lungs clear to auscultation bilaterally no wheezing or crackles Heart regular rate and rhythm S1-S2, no rub or gallop Abdomen is soft nontender nondistended positive bowel sounds no hepatosplenomegaly Extremities no edema good for a full pulses Neuro alert and orientated to 3. Slow coordination and Hand tremors noted bilaterally Results CBC & Chem 7: 01/11/17 12:08 01/11/17 12:08 Labs: Abnormal Lab Results - Last 24 Hours (Table) 01/11/17 01/11/17 Range/Units 12:08 12:08 MCV 107.2 H (80.0-100.0) fL MCH 35.6 H (25.0-35.0) pg Plt Count 130 L (150-450) k/uL Lymphocytes # 0.5 L (1.0-4.8) k/uL Potassium 3.0 L* (3.5-5.1) mmol/L Chloride 94 L (98-107) mmol/L BUN 7 L (9-20) mg/dL Glucose 193 H (74-99) mg/dL Calcium 7.8 L (8.4-10.2) mg/dL Magnesium 0.6 L* (1.6-2.3) mg/dL Total Bilirubin 1.6 H (0.2-1.3) mg/dL AST 134 H (17-59) U/L Alkaline Phosphatase 158 H (38-126) U/L Assessment and Plan Plan: 1. Impending DTs with a history of Alcoholism with possible alcohol withdrawal : Would recommend to continue telemetry monitoring. Patient started on the CIWA protocol with Ativan when necessary. Continue thiamine, multivitamin and folic acid. Place patient on seizure precautions. Continue IV fluids, and dynamic status is stable patient has been monitored overnight was removed to a medical floor with telemetry and consider 2. Severe Hypokalemia: Patient receiving potassium supplement. recheck potassium level as appropriate 3. Hypomagnesemia: Patient receiving supplement. Repeat magnesium level as appropriate 4. Acute Alcoholic hepatitis: Monitor closely patient has been counseled 5. Previous history of seizure from alcohol withdrawal, continue seizure precautions 6. Thrombocytopenia secondary to patient's alcoholism. Monitor observe closely GI prophylaxis Protonix and DVT prophylaxis SCDs because of the thrombocytopenia Time with Patient: Greater than 30 Review of Systems All systems: negative Constitutional: Denies chills, Denies fever Eyes: denies blurred vision, denies pain Ears, nose, mouth and throat: Denies headache, Denies sore throat Cardiovascular: Denies chest pain, Denies shortness of breath Respiratory: Denies cough Gastrointestinal: Denies abdominal pain, Denies diarrhea, Denies nausea, Denies vomiting Musculoskeletal: Denies myalgias Integumentary: Denies pruritus, Denies rash Neurological: Denies numbness, Denies weakness Psychiatric: Denies anxiety, Denies depression Endocrine: Denies fatigue, Denies weight change Past Medical History Past Medical History: GERD/Reflux, Osteoarthritis (OA), Seizure Disorder, Syncope Additional Past Medical History / Comment(s): 1 SEIZURE APPROX 2010, alcoholism , alcohol withdrawal syndrome, delirium tremors, past acute psychosis, DJD, diverticular disease, SBO 2ndary to incarcerated R inguinal hernia. History of Any Multi-Drug Resistant Organisms: None Reported Past Surgical History: Appendectomy, Heart Catheterization, Hernia Repair, Joint Replacement, Orthopedic Surgery, Tonsillectomy Additional Past Surgical History / Comment(s): Colonoscopies and polypectomies, 10/21/15 normal cardiac cath, multiple inguinal hernia surg., bilateral knee arthroscopies and pt states bilateral knee arthroplasties. Past Anesthesia/Blood Transfusion Reactions: No Reported Reaction Past Psychological History: Anxiety, Depression Smoking Status: Former smoker Past Alcohol Use History: Abuse, Daily, Heavy Past Drug Use History: Cocaine - Past Family History Father Family Medical History: Coronary Artery Disease (CAD), Myocardial Infarction ([place] ) Additional Family Medical History / Comment(s): Father of a [place] at the age of 73 yrs. Mother Family Medical History: Cancer Additional Family Medical History / Comment(s): Mother had breast cancer. She is 81 yrs old and now healthy. Medications and Allergies Home Medications Medication Instructions Recorded Confirmed Type Naltrexone HCl [Revia] 50 mg PO DAILY 01/11/17 01/11/17 History QUEtiapine [SEROquel] 100 mg PO HS 01/11/17 01/11/17 History Allergies Allergy/AdvReac Type Severity Reaction Status Date / Time tramadol AdvReac Mild Itching Verified 01/11/17 11:47 Physical Exam Vitals: Vital Signs Temp Pulse Pulse Pulse Resp BP BP 01/12/17 08:00 97.6 F 77 26 H 122/86 01/12/17 07:00 72 29 H 110/79 01/12/17 06:00 73 17 92/70 01/12/17 05:00 67 15 101/77 01/12/17 04:00 96.6 F L 76 16 118/90 01/12/17 03:00 77 12 110/77 01/12/17 02:00 84 18 84/68 01/12/17 01:00 81 14 122/83 01/12/17 00:00 97.9 F 113 H 19 110/82 01/11/17 23:00 117 H 14 117/85 01/11/17 22:00 99 25 H 120/88 01/11/17 21:00 89 26 H 123/84 01/11/17 20:00 99.1 F 92 26 H 95/84 01/11/17 19:00 96 25 H 112/76 01/11/17 18:00 103 H 23 112/84 01/11/17 17:00 89 32 H 111/81 01/11/17 16:39 98.7 F 91 28 H 122/87 01/11/17 16:03 96 30 H 125/79 01/11/17 15:15 98.2 F 104 H 33 H 141/86 01/11/17 14:22 99 F 98 18 144/89 01/11/17 12:00 98.7 F 103 H 20 159/94 Pulse Ox 01/12/17 08:00 98 01/12/17 07:00 100 01/12/17 06:00 100 01/12/17 05:00 100 01/12/17 04:00 98 01/12/17 03:00 100 01/12/17 02:00 100 01/12/17 01:00 100 01/12/17 00:00 100 01/11/17 23:00 94 L 01/11/17 22:00 95 01/11/17 21:00 97 01/11/17 20:00 99 01/11/17 19:00 99 01/11/17 18:00 94 L 01/11/17 17:00 95 01/11/17 16:39 01/11/17 16:03 93 L 01/11/17 15:15 01/11/17 14:22 98 01/11/17 12:00 92 L Intake and Output 01/11/17 01/12/17 01/12/17 22:59 06:59 14:59 Intake Total 1050 1200 125 Balance 1050 1200 125 Intake: Intake, IV Titration 750 1200 125 Amount Magnesium Sulfate-D5w Pmx 200 1 gm In Dextrose/Water 1 100ml.bag @ 100 mls/hr IVPB Q1H [facility] Rx#: [id number] Sodium Chloride 0.9% 1, 750 1000 125 000 ml @ 125 mls/hr IV . Q8H [facility] Rx#:[id number] Oral 300 Other: Voiding Method Bedside Commode Bedside Commode Urinal Urinal # Voids 1 # Bowel Movements 1 Weight 70.6 kg - Constitutional General appearance: no acute distress - EENT Eyes: EOMI - Neck Neck: no lymphadenopathy - Gastrointestinal General gastrointestinal: no organomegaly, soft, no tenderness Results - Laboratory Findings CBC and BMP: 01/12/17 05:23 01/12/17 05:28 Abnormal lab findings: Abnormal Labs 01/11/17 01/11/17 01/11/17 12:08 12:08 16:40 RBC MCV 107.2 H MCH 35.6 H Plt Count 130 L Lymphocytes # 0.5 L Potassium 3.0 L* Chloride 94 L BUN 7 L Glucose 193 H POC Glucose (mg/dL) 116 H Calcium 7.8 L Magnesium 0.6 L* Total Bilirubin 1.6 H AST 134 H Alkaline Phosphatase 158 H Total Protein Albumin 01/12/17 01/12/17 05:23 05:28 RBC 3.87 L MCV 106.6 H MCH 36.5 H Plt Count 112 L Lymphocytes # Potassium Chloride BUN 6 L Glucose POC Glucose (mg/dL) Calcium 7.7 L Magnesium Total Bilirubin 1.8 H AST 99 H Alkaline Phosphatase 131 H Total Protein 5.5 L Albumin 2.9 L
[2017-01-12] MEDS: LORazepam 2 MG/ML SYRINGE IV PRN ×5 (09:17→22:51)
[2017-01-12 10:29] VITALS: BMI 23.6
[2017-01-12] MEDS: THIAMINE 100 MG TAB PO SCH ×2 (13:09→17:27)
[2017-01-12] MEDS: FOLIC ACID 1 MG TAB PO SCH (13:10)
[2017-01-12] MEDS: MULTIVITAMINS, THERA 1 EACH TAB PO SCH (13:10)
--- NOTE | 2017-01-12 17:26 | P.PN ---
Subjective Principal diagnosis: Patient is doing better today he is alert, responsive slightly confused, having mild tremors, complaining of having frequency with urination otherwise no complaints at this time per patient. Objective - Vital Signs Vital signs: Vital Signs Temp 98.1 F 01/12/17 15:11 Pulse 89 01/12/17 15:11 Resp 16 01/12/17 15:11 BP 171/82 01/12/17 15:11 Pulse Ox 95 01/12/17 15:11 Intake & Output 01/11/17 01/12/17 01/12/17 18:59 06:59 18:59 Intake Total 250 2000 475 Output Total 300 Balance 250 2000 175 Weight 70.307 kg 70.6 kg 70.6 kg Intake: Intake, IV Titration 250 1700 475 Amount Magnesium Sulfate-D5w Pmx 200 1 gm In Dextrose/Water 1 100ml.bag @ 100 mls/hr IVPB Q1H [facility] Rx#: [id number] Potassium Chloride 10 meq 100 Lidocaine 2% Inj 10 mg In Sodium Chloride 0.9% 100 ml @ 100 mls/hr IV Q1HR [facility] Rx#:[id number] Sodium Chloride 0.9% 1, 250 1500 375 000 ml @ 125 mls/hr IV . Q8H [facility] Rx#:[id number] Oral 300 Output: Urine 300 Other: Voiding Method Bedside Commode Urinal Urinal # Voids 1 1 # Bowel Movements 1 1 - Exam HEENT head normocephalic and atraumatic Neck is supple no JVD no goiter no lymphadenopathy Chest exam reveals a few scattered rhonchi no wheezing Cardiac exam reveals regular heart sounds no murmurs Abdomen is soft nontender no organomegaly Extremity exam reveals no edema, no cyanosis or clubbing Neurological examination reveals [id number] generalized tremors otherwise no focal deficit - Labs CBC & Chem 7: 01/12/17 05:23 01/12/17 05:28 Labs: Abnormal Lab Results - Last 24 Hours (Table) 01/12/17 01/12/17 Range/Units 05:23 05:28 RBC 3.87 L (4.30-5.90) m/uL MCV 106.6 H (80.0-100.0) fL MCH 36.5 H (25.0-35.0) pg Plt Count 112 L (150-450) k/uL BUN 6 L (9-20) mg/dL Calcium 7.7 L (8.4-10.2) mg/dL Total Bilirubin 1.8 H (0.2-1.3) mg/dL AST 99 H (17-59) U/L Alkaline Phosphatase 131 H (38-126) U/L Total Protein 5.5 L (6.3-8.2) g/dL Albumin 2.9 L (3.5-5.0) g/dL Assessment and Plan Plan: 1. Alcoholism with alcohol withdrawa, transfer patient to medical floor with telemetry monitoring. Patient started on the CIWA protocol with Ativan when necessary. Continue thiamine, multivitamin and folic acid. Place patient on seizure precautions. Continue IV fluids. Counseled in length today in regards to quitting alcohol use. 2. Hypokalemia: Patient receiving potassium supplement. recheck potassium level at 6 PM 3. Hypomagnesemia: Patient receiving supplement. Repeat magnesium level at 6 PM 4. Acute Alcoholic hepatitis: Repeat labs in a.m. Continue with IV fluids 5. Previous history of seizure from alcohol withdrawal 6. Thrombocytopenia secondary to patient's alcoholism. Repeat labs in a.m.
[2017-01-12] MEDS: QUEtiapine 50 MG TAB PO SCH (21:04)
[2017-01-13] MEDS: SODIUM CHLORIDE 0.9% 1,000 ML IV SCH ×4 (03:16→21:08)
[2017-01-13] MEDS: LORazepam 2 MG/ML SYRINGE IV PRN ×5 (04:24→23:53)
[2017-01-13] MEDS: PANTOPRAZOLE 40 MG TABLET PO SCH (07:46)
[2017-01-13] MEDS: cloNIDine HCL 0.1 MG TAB PO SCH ×2 (07:46→21:03)
[2017-01-13 08:39] LABS: Anion Gap 9 mmol/L; Blood Urea Nitrogen 5 mg/dL (9-20); Calcium 8.3 mg/dL (8.4-10.2); Carbon Dioxide 23 mmol/L (22-30); Chloride 104 mmol/L (98-107); Glucose 83 mg/dL (74-99); Non-African American GFR(MDRD) >60 (>60 ml/min/1.73 sqM); Sodium 136 mmol/L (137-145)
[2017-01-13 08:57] LABS: Basophils % (A) 1 %; CH 35.3; Eosinophils # (A) 0.2 k/uL (0-0.7); Eosinophils % (A) 4 %; HCT 44.2 % (39.0-53.0); HDW 2.08; HGB 14.7 gm/dL (13.0-17.5); Luc % (Auto) 3; Lymphocytes # (A) 1.3 k/uL (1.0-4.8); Lymphocytes % (A) 23 %; MCH 35.8 pg (25.0-35.0); MCHC 33.4 g/dL (31.0-37.0); MCV 107.3 fL (80.0-100.0); Macrocytosis Moderate; Mean Platelet Volume 7.9; Monocytes # (A) 0.5 k/uL (0-1.0); Monocytes % (A) 8 %; Neutrophils # (A) 3.6 k/uL (1.3-7.7); Neutrophils % (A) 61 %; RBC 4.12 m/uL (4.30-5.90); RDW 13.6 % (11.5-15.5); WBC 5.9 k/uL (3.8-10.6); WBC (Perox) 6.01
[2017-01-13] MEDS: THIAMINE 100 MG TAB PO SCH ×2 (11:38→16:06)
[2017-01-13] MEDS: MULTIVITAMINS, THERA 1 EACH TAB PO SCH (11:38)
[2017-01-13] MEDS: FOLIC ACID 1 MG TAB PO SCH (11:38)
[2017-01-13] MEDS ORDERED: Potassium Replacement Protocol 1 EACH MISC MISCELLANE PRN ×2 (13:05→15:48)
--- NOTE | 2017-01-13 13:07 | P.PN ---
Subjective Principal diagnosis: Patient is doing better today he is alert, responsive slightly confused, having mild tremors, improved since yesterday complaining of having frequency with urination otherwise no complaints at this time per patient. Objective - Vital Signs Vital signs: Vital Signs Temp 97.9 F 01/13/17 08:02 Pulse 81 01/13/17 08:02 Resp 18 01/13/17 08:02 BP 127/85 01/13/17 08:02 Pulse Ox 93 L 01/13/17 08:02 Intake & Output 01/12/17 01/13/17 01/13/17 18:59 06:59 18:59 Intake Total 475 240 Output Total 600 Balance -125 240 Weight 70.6 kg Intake: Intake, IV Titration 475 Amount Potassium Chloride 10 meq 100 Lidocaine 2% Inj 10 mg In Sodium Chloride 0.9% 100 ml @ 100 mls/hr IV Q1HR [facility] Rx#:[id number] Sodium Chloride 0.9% 1, 375 000 ml @ 125 mls/hr IV . Q8H [facility] Rx#:[id number] Oral 240 Output: Urine 600 Other: Voiding Method Urinal Urinal Urinal Diaper Diaper Incontinent Incontinent # Voids 3 1 - Exam HEENT head normocephalic and atraumatic Neck is supple no JVD no goiter no lymphadenopathy Chest exam reveals a few scattered rhonchi no wheezing Cardiac exam reveals regular heart sounds no murmurs Abdomen is soft nontender no organomegaly Extremity exam reveals no edema, no cyanosis or clubbing Neurological examination reveals [id number]-[id number] generalized tremors otherwise no focal deficit - Labs CBC & Chem 7: 01/13/17 07:39 01/13/17 07:39 Labs: Abnormal Lab Results - Last 24 Hours (Table) 01/12/17 01/13/17 01/13/17 Range/Units 19:58 07:39 07:39 RBC 4.12 L (4.30-5.90) m/uL MCV 107.3 H (80.0-100.0) fL MCH 35.8 H (25.0-35.0) pg Plt Count 103 L (150-450) k/uL Sodium 136 L (137-145) mmol/L Potassium 3.0 L* (3.5-5.1) mmol/L BUN 5 L (9-20) mg/dL Calcium 8.3 L (8.4-10.2) mg/dL Magnesium 1.5 L (1.6-2.3) mg/dL Assessment and Plan Plan: 1. Alcoholism with alcohol withdrawa, transfer patient to medical floor with telemetry monitoring. Patient started on the CIWA protocol with Ativan when necessary. Continue thiamine, multivitamin and folic acid. Place patient on seizure precautions. Continue IV fluids. Counseled in length today in regards to quitting alcohol use. 2. Hypokalemia: Patient receiving potassium supplement. recheck potassium level in am 3. Hypomagnesemia: Patient receiving supplement. Repeat magnesium level at 6 PM 4. Acute Alcoholic hepatitis: Repeat labs in a.m. Continue with IV fluids 5. Previous history of seizure from alcohol withdrawal 6. Thrombocytopenia secondary to patient's alcoholism. Repeat labs in a.m.
[2017-01-13] MEDS: POTASSIUM CHLORIDE ER 20 MEQ TAB.ER PO SCH ×2 (16:13→17:20)
[2017-01-13] MEDS: QUEtiapine 50 MG TAB PO SCH (21:03)
[2017-01-14] MEDS: LORazepam 2 MG/ML SYRINGE IV PRN ×9 (02:10→23:38)
[2017-01-14] MEDS: chlordiazePOXIDE 25 MG CAP PO PRN ×2 (03:18→08:16)
[2017-01-14] MEDS: SODIUM CHLORIDE 0.9% 1,000 ML IV SCH ×2 (06:37→14:21)
[2017-01-14] MEDS: MULTIVITAMINS, THERA 1 EACH TAB PO SCH (08:09)
[2017-01-14] MEDS: PANTOPRAZOLE 40 MG TABLET PO SCH (08:09)
[2017-01-14] MEDS: cloNIDine HCL 0.1 MG TAB PO SCH ×3 (08:09→21:26)
[2017-01-14] MEDS: FOLIC ACID 1 MG TAB PO SCH (08:09)
[2017-01-14] MEDS: THIAMINE 100 MG TAB PO SCH ×2 (08:09→18:01)
[2017-01-14 09:33] LABS: ALT 36 U/L (21-72); AST 58 U/L (17-59); Alkaline Phosphatase 107 U/L (38-126); Anion Gap 11 mmol/L; Blood Urea Nitrogen 7 mg/dL (9-20); Carbon Dioxide 19 mmol/L (22-30); Chloride 106 mmol/L (98-107); Glucose 73 mg/dL (74-99); Non-African American GFR(MDRD) >60 (>60 ml/min/1.73 sqM); Sodium 136 mmol/L (137-145); Total Bilirubin 1.9 mg/dL (0.2-1.3); Total Protein 5.8 g/dL (6.3-8.2)
--- NOTE | 2017-01-14 09:37 | P.PN ---
Subjective Principal diagnosis: Patient seen and evaluated examined during the rounds he is overall less tremulous and anxious he is being monitored for alcohol withdrawal and impending DTs a sitter is present breathing comfortably no obvious hemodynamic distress is present Objective - Vital Signs Vital signs: Vital Signs Temp 98.4 F 01/13/17 21:30 Pulse 95 01/14/17 00:00 Resp 19 01/14/17 00:00 BP 134/96 01/13/17 21:30 Pulse Ox 93 L 01/13/17 21:30 Intake & Output 01/13/17 01/14/17 01/14/17 18:59 06:59 18:59 Intake Total 480 100 Output Total 300 Balance 180 100 Weight 70.6 kg 70.6 kg Intake: Oral 480 100 Output: Urine 300 Other: Voiding Method Urinal Urinal Diaper Diaper Incontinent Incontinent # Voids 1 1 - Exam HEENT head normocephalic and atraumatic Neck is supple no JVD no goiter no lymphadenopathy Chest exam reveals a few scattered rhonchi no wheezing Cardiac exam reveals regular heart sounds no murmurs Abdomen is soft nontender no organomegaly Extremity exam reveals no edema, no cyanosis or clubbing Neurological examination reveals [id number] generalized tremors otherwise no focal deficit - Labs CBC & Chem 7: 01/13/17 07:39 01/13/17 18:28 Labs: Abnormal Lab Results - Last 24 Hours (Table) 01/13/17 Range/Units 07:39 Sodium 136 L (137-145) mmol/L Potassium 3.0 L* (3.5-5.1) mmol/L BUN 5 L (9-20) mg/dL Calcium 8.3 L (8.4-10.2) mg/dL Assessment and Plan Plan: 1. Alcoholism with alcohol withdrawa, monitor and OBSERVE patient closely at medical floor with telemetry monitoring. Patient started on the CIWA protocol with Ativan when necessary. Continue thiamine, multivitamin and folic acid. Place patient on seizure precautions. Continue IV fluids. Counseled in length today in regards to quitting alcohol use. 2. Hypokalemia: Patient receiving potassium supplement. recheck potassium periodically 3. Hypomagnesemia: Patient receiving supplement. Repeat magnesium level at 6 PM 4. Acute Alcoholic hepatitis: Monitor and observe 5. Previous history of seizure from alcohol withdrawal 6. Thrombocytopenia secondary to patient's alcoholism. Time with Patient: Greater than 30
[2017-01-14 09:43] LABS: Potassium 3.9 mmol/L (3.5-5.1)
--- NOTE | 2017-01-14 10:40 | P.PN ---
Subjective This is a 56-year-old male, patient of Dr. Edward. He has a known past medical history of alcoholism, previous hospitalization for alcohol withdrawal and DTs, seizure from alcohol withdrawal, hypertension, anxiety and depression. Patient reports that he had one glass of wine this morning. Some days he drinks heavier than others. His alcohol level on admission was less then 10. However patient is having active DTs. Hands are tremoring. He was slightly tachycardic with a heart rate of 103. EKG shows a normal sinus rhythm with a prolonged QT interval 414/517 ms. Patient initially admitted to the fifth floor. We'll transfer him up to the sixth floor with telemetry monitoring. Patient denies any fever or chills or sweats. He does admit to vomiting and having 1 looser stool. Does admit to having right upper quadrant abdominal pain. Denies any chest pain or shortness of breath. Denies any burning with urination. 01/14/2017 patient still having some tremors. He was able to be transferred out of the ICU yesterday. He had episode of being combative through the night. He has been receiving IV antibiotics and. Any a sitter at bedside. Patient does have some slurring of his words but he did receive Ativan this morning. He denies any chest pain shortness of breath. Denies any nausea or vomiting. reports improvement in his abdominal pain. Objective - Vital Signs Vital signs: Vital Signs Temp 98.4 F 01/13/17 21:30 Pulse 95 01/14/17 00:00 Resp 19 01/14/17 00:00 BP 134/96 01/13/17 21:30 Pulse Ox 93 L 01/13/17 21:30 Intake & Output 01/13/17 01/14/17 01/14/17 18:59 06:59 18:59 Intake Total 480 100 Output Total 300 Balance 180 100 Weight 70.6 kg 70.6 kg 70.6 kg Intake: Oral 480 100 Output: Urine 300 Other: Voiding Method Urinal Urinal Diaper Diaper Incontinent Incontinent # Voids 1 1 - Exam Head normocephalic Neck supple Lungs clear to auscultation bilaterally no wheezing or crackles Heart regular rate and rhythm S1-S2, no rub or gallop Abdomen is soft nontender nondistended positive bowel sounds no hepatosplenomegaly Extremities no edema Neuro confused with slurring speech, patient just received Ativan this morning. Slight tremor noted in hands bilaterally. - Labs CBC & Chem 7: 01/13/17 07:39 01/14/17 08:46 Labs: Abnormal Lab Results - Last 24 Hours (Table) 01/14/17 Range/Units 08:46 Sodium 136 L (137-145) mmol/L Carbon Dioxide 19 L (22-30) mmol/L BUN 7 L (9-20) mg/dL Creatinine 0.64 L (0.66-1.25) mg/dL Glucose 73 L (74-99) mg/dL Calcium 8.0 L (8.4-10.2) mg/dL Total Bilirubin 1.9 H (0.2-1.3) mg/dL Total Protein 5.8 L (6.3-8.2) g/dL Albumin 2.9 L (3.5-5.0) g/dL Assessment and Plan Plan: 1. Alcoholism with alcohol withdrawal: Patient is out of the ICU. Continue the CIWA protocol with Ativan when necessary. Continue thiamine, multivitamin and folic acid. Place patient on seizure precautions. Continue IV fluids 2. Hypokalemia: Improved 3. Hypomagnesemia: Repeat magnesium level 4. Acute Alcoholic hepatitis: Liver enzymes have shown improvement 5. Previous history of seizure from alcohol withdrawal 6. Thrombocytopenia secondary to patient's alcoholism. Repeat labs in a.m. GI prophylaxis Protonix and DVT prophylaxis SCDs because of the thrombocytopenia I performed an examination of the patient and discussed their management with the physician Validation Manager. I have reviewed the Physician Validation Manager's notes and agree with the documented findings and plan of care
[2017-01-14 12:30] LABS: Aty Lym Flag Slight; CH 36.3; CHCM 33.9; HCT 47.3 % (39.0-53.0); HDW 2.11; HGB 15.7 gm/dL (13.0-17.5); MCH 35.7 pg (25.0-35.0); MCHC 33.2 g/dL (31.0-37.0); MCV 107.5 fL (80.0-100.0); Macrocytosis Moderate; Mean Platelet Volume 9.6; RDW 14.4 % (11.5-15.5); WBC 7.3 k/uL (3.8-10.6); WBC (Perox) 7.08
[2017-01-14 14:59] LABS: Add Differential Manual Differential
[2017-01-14 15:00] LABS: Nucleated Red Blood Cells 0 /100 WBC (0-0); Total Cells Counted 100
[2017-01-14 15:01] LABS: Manual Review Performed
[2017-01-14] MEDS: QUEtiapine 50 MG TAB PO SCH ×2 (21:25→21:27)
[2017-01-15] MEDS: chlordiazePOXIDE 25 MG CAP PO PRN ×2 (00:06→18:37)
[2017-01-15] MEDS: LORazepam 2 MG/ML SYRINGE IV PRN ×2 (01:09→13:52)
[2017-01-15] MEDS: SODIUM CHLORIDE 0.9% 1,000 ML IV SCH ×2 (01:09→09:31)
[2017-01-15 08:05] LABS: Aty Lym Flag Slight; CHCM 32.9; HCT 47.4 % (39.0-53.0); HDW 2.16; HGB 15.2 gm/dL (13.0-17.5); MCH 35.3 pg (25.0-35.0); MCHC 32.1 g/dL (31.0-37.0); MCV 109.8 fL (80.0-100.0); Macrocytosis Marked; Mean Platelet Volume 7.9; RBC 4.31 m/uL (4.30-5.90); RDW 14.3 % (11.5-15.5); WBC 9.3 k/uL (3.8-10.6); WBC (Perox) 9.25
[2017-01-15 08:19] LABS: ALT 36 U/L (21-72); AST 29 U/L (17-59); Alkaline Phosphatase 105 U/L (38-126); Anion Gap 13 mmol/L; Blood Urea Nitrogen 6 mg/dL (9-20); Calcium 7.1 mg/dL (8.4-10.2); Carbon Dioxide 15 mmol/L (22-30); Chloride 109 mmol/L (98-107); Glucose 88 mg/dL (74-99); Non-African American GFR(MDRD) >60 (>60 ml/min/1.73 sqM); Sodium 137 mmol/L (137-145); Total Bilirubin 1.6 mg/dL (0.2-1.3); Total Protein 5.3 g/dL (6.3-8.2)
[2017-01-15 08:23] LABS: Magnesium 0.8 mg/dL (1.6-2.3); Potassium 2.9 mmol/L (3.5-5.1)
[2017-01-15] MEDS ORDERED: Potassium Replacement Protocol 1 EACH MISC MISCELLANE PRN ×2 (08:30→18:41)
[2017-01-15] MEDS ORDERED: Magnesium Replacement Protocol 1 EACH MISC MISCELLANE PRN (08:32)
[2017-01-15] MEDS: MAGNESIUM SULFATE-D5W PMX 1 GM in DEXTROSE/WATER 1 100ML.BAG IVPB SCH ×4 (09:11→15:31)
[2017-01-15] MEDS: POTASSIUM CHLORIDE 10 MEQ, LIDOCAINE 2% INJ 10 MG in SODIUM CHLORIDE 0.9% 100 ML IV SCH ×5 (09:11→20:46)
--- NOTE | 2017-01-15 09:11 | XR ---
EXAMINATION TYPE: XR elbow complete RT DATE OF EXAM: 01/15/2017 COMPARISON: NONE HISTORY: Pain FINDINGS: Three views of the elbow are obtained and limited by positioning. Demonstrate no pathologic joint eff usion. The osseous structures are intact. There is no acute fracture or dislocation. IMPRESSION: 1. No acute fracture or dislocation. If symptoms persist follow-up study in 7 to 10 days could be ob tained.
[2017-01-15] MEDS: MULTIVITAMINS, THERA 1 EACH TAB PO SCH (09:13)
[2017-01-15] MEDS: cloNIDine HCL 0.1 MG TAB PO SCH ×2 (09:13→20:47)
[2017-01-15] MEDS: THIAMINE 100 MG TAB PO SCH ×2 (09:13→18:37)
[2017-01-15] MEDS: PANTOPRAZOLE 40 MG TABLET PO SCH (09:13)
[2017-01-15] MEDS: FOLIC ACID 1 MG TAB PO SCH (09:19)
[2017-01-15 10:31] LABS: Add Differential Manual Differential
[2017-01-15 10:33] LABS: Manual Review Performed; Nucleated Red Blood Cells 0 /100 WBC (0-0); Total Cells Counted 100
--- NOTE | 2017-01-15 10:57 | P.PN ---
Subjective This is a 56-year-old male, patient of Dr. Edward. He has a known past medical history of alcoholism, previous hospitalization for alcohol withdrawal and DTs, seizure from alcohol withdrawal, hypertension, anxiety and depression. Patient reports that he had one glass of wine this morning. Some days he drinks heavier than others. His alcohol level on admission was less then 10. However patient is having active DTs. Hands are tremoring. He was slightly tachycardic with a heart rate of 103. EKG shows a normal sinus rhythm with a prolonged QT interval 414/517 ms. Patient initially admitted to the fifth floor. We'll transfer him up to the sixth floor with telemetry monitoring. Patient denies any fever or chills or sweats. He does admit to vomiting and having 1 looser stool. Does admit to having right upper quadrant abdominal pain. Denies any chest pain or shortness of breath. Denies any burning with urination. 01/14/2017 patient still having some tremors. He was able to be transferred out of the ICU yesterday. He had episode of being combative through the night. He has been receiving IV antibiotics and. Any a sitter at bedside. Patient does have some slurring of his words but he did receive Ativan this morning. He denies any chest pain shortness of breath. Denies any nausea or vomiting. reports improvement in his abdominal pain. 01/15/2017 patient is more awake and alert today. He is complaining of right elbow pain. Apparently he fell before he came in. X-ray of the elbow completed showing no evidence of fracture. Awaiting psychiatry and social work evaluation. Potassium and magnesium being replaced today. Patient has no other complaints. He is eating and drinking appropriately fluids will be hep- locked Objective - Vital Signs Vital signs: Vital Signs Temp 98.3 F 01/15/17 07:00 Pulse 114 H 01/15/17 07:00 Resp 18 01/15/17 07:00 BP 117/81 01/15/17 07:00 Pulse Ox 94 L 01/15/17 07:00 Intake & Output 01/14/17 01/15/17 01/15/17 18:59 06:59 18:59 Intake Total 100 Output Total 300 Balance 100 -300 Weight 70.6 kg 70.6 kg Intake: Oral 100 Output: Urine 300 Other: Voiding Method Urinal Urinal Diaper Diaper Incontinent Incontinent # Voids 1 - Exam Head normocephalic Neck supple Lungs clear to auscultation bilaterally no wheezing or crackles Heart regular rate and rhythm S1-S2, no rub or gallop Abdomen is soft nontender nondistended positive bowel sounds no hepatosplenomegaly Extremities no edema Neuro awake and alert and orientated to 2 areas confused on date - Labs CBC & Chem 7: 01/15/17 07:42 01/15/17 07:42 Labs: Abnormal Lab Results - Last 24 Hours (Table) 01/14/17 01/15/17 01/15/17 Range/Units 08:46 07:42 07:42 MCV 107.5 H 109.8 H (80.0-100.0) fL MCH 35.7 H 35.3 H (25.0-35.0) pg Plt Count 126 L (150-450) k/uL Lymphocytes # (Manual) 0.95 L (1.0-4.8) k/uL Potassium 2.9 L* (3.5-5.1) mmol/L Chloride 109 H (98-107) mmol/L Carbon Dioxide 15 L (22-30) mmol/L BUN 6 L (9-20) mg/dL Creatinine 0.64 L (0.66-1.25) mg/dL Calcium 7.1 L (8.4-10.2) mg/dL Magnesium 0.8 L* (1.6-2.3) mg/dL Total Bilirubin 1.6 H (0.2-1.3) mg/dL Total Protein 5.3 L (6.3-8.2) g/dL Albumin 2.6 L (3.5-5.0) g/dL Assessment and Plan Plan: 1. Alcoholism with alcohol withdrawal: Patient is out of the ICU. Continue the CIWA protocol with Ativan when necessary. Continue thiamine, multivitamin and folic acid. Place patient on seizure precautions. Awaiting psychiatry and social work evaluation 2. Hypokalemia: Replace per protocol. Repeat labs in a.m. 3. Hypomagnesemia: Replaced per protocol. Repeat labs in a.m. 4. Acute Alcoholic hepatitis: Liver enzymes have shown improvement 5. Previous history of seizure from alcohol withdrawal 6. Thrombocytopenia secondary to patient's alcoholism. Repeat labs in a.m. 7. Right elbow pain. X-ray shows no evidence of fracture. Keep elbow elevated apply ice. We'll order [place] 5/325 one every 6 hours as needed for pain GI prophylaxis Protonix and DVT prophylaxis SCDs because of the thrombocytopenia I performed an examination of the patient and discussed their management with the physician Art Handler. I have reviewed the Physician Art Handler's notes and agree with the documented findings and plan of care
[2017-01-15] MEDS: HYDROcodone/APAP 5-325MG 1 EACH TAB PO PRN (12:06)
--- NOTE | 2017-01-15 14:01 | XR ---
EXAMINATION TYPE: XR forearm RT DATE OF EXAM: 01/15/2017 CLINICAL HISTORY: pain TECHNIQUE: Frontal and lateral images of the right forearm are obtained. COMPARISON: None. FINDINGS: There is no acute fracture/dislocation evident. The joint spaces appear within normal limi ts. The overlying soft tissue appears unremarkable. IMPRESSION: There is no acute fracture or dislocation. ICD 10 NO FRACTURE, INITIAL EVALUATION
--- NOTE | 2017-01-15 14:01 | XR ---
EXAMINATION TYPE: XR wrist complete RT DATE OF EXAM: 01/15/2017 CLINICAL HISTORY: pain TECHNIQUE: Frontal, lateral and oblique images of the right wrist are obtained. COMPARISON: None. FINDINGS: There is no acute fracture/dislocation evident. The joint spaces appear within normal limits. The o verlying soft tissue appears unremarkable. IMPRESSION: There is no acute fracture or dislocation seen. ICD 10 NO FRACTURE, INITIAL EVALUATION
--- NOTE | 2017-01-15 14:02 | P.PN ---
Subjective Principal diagnosis: Patient seen and evaluated examined during the rounds he is overall less tremulous and anxious he is being monitored for alcohol withdrawal and impending DTs a sitter is present breathing comfortably no obvious hemodynamic distress is present Overall continued to progressively well no obvious distress present his electrolyte imbalances being replaced, patient does have some pain in the right arm and elbow for which x-rays has been performed Objective - Vital Signs Vital signs: Vital Signs Temp 100.9 F H 01/15/17 12:00 Pulse 100 01/15/17 12:00 Resp 20 01/15/17 12:00 BP 107/76 01/15/17 12:00 Pulse Ox 94 L 01/15/17 12:00 Intake & Output 01/14/17 01/15/17 01/15/17 18:59 06:59 18:59 Intake Total 100 Output Total 300 Balance 100 -300 Weight 70.6 kg 70.6 kg Intake: Oral 100 Output: Urine 300 Other: Voiding Method Urinal Urinal Urinal Diaper Diaper Diaper Incontinent Incontinent Incontinent # Voids 1 - Exam HEENT head normocephalic and atraumatic Neck is supple no JVD no goiter no lymphadenopathy Chest exam reveals a few scattered rhonchi no wheezing Cardiac exam reveals regular heart sounds no murmurs Abdomen is soft nontender no organomegaly Extremity exam reveals no edema, no cyanosis or clubbing Neurological examination reveals [id number] generalized tremors otherwise no focal deficit - Labs CBC & Chem 7: 01/15/17 07:42 01/15/17 07:42 Labs: Abnormal Lab Results - Last 24 Hours (Table) 01/14/17 01/15/17 01/15/17 Range/Units 08:46 07:42 07:42 MCV 109.8 H (80.0-100.0) fL MCH 35.3 H (25.0-35.0) pg Lymphocytes # (Manual) 0.95 L (1.0-4.8) k/uL Potassium 2.9 L* (3.5-5.1) mmol/L Chloride 109 H (98-107) mmol/L Carbon Dioxide 15 L (22-30) mmol/L BUN 6 L (9-20) mg/dL Creatinine 0.64 L (0.66-1.25) mg/dL Calcium 7.1 L (8.4-10.2) mg/dL Magnesium 0.8 L* (1.6-2.3) mg/dL Total Bilirubin 1.6 H (0.2-1.3) mg/dL Total Protein 5.3 L (6.3-8.2) g/dL Albumin 2.6 L (3.5-5.0) g/dL Assessment and Plan Plan: 1. Alcoholism with alcohol withdrawa, monitor and OBSERVE patient closely at medical floor with telemetry monitoring. Patient started on the CIWA protocol with Ativan when necessary. Continue thiamine, multivitamin and folic acid. Place patient on seizure precautions. Continue IV fluids. Counseled in length today in regards to quitting alcohol use. 2. Hypokalemia: Patient receiving potassium supplement. recheck potassium periodically 3. Hypomagnesemia: Patient receiving supplement. Repeat magnesium level at 6 PM 4. Acute Alcoholic hepatitis: Monitor and observe 5. Previous history of seizure from alcohol withdrawal 6. Thrombocytopenia secondary to patient's alcoholism. Time with Patient: Greater than 30
[2017-01-15 16:31] LABS: Magnesium 2.4 mg/dL (1.6-2.3); Potassium 3.1 mmol/L (3.5-5.1)
[2017-01-15] MEDS: QUEtiapine 50 MG TAB PO SCH (20:47)
[2017-01-16 06:41] LABS: Aty Lym Flag Slight; CH 35.4; CHCM 33.7; HCT 45.3 % (39.0-53.0); HDW 2.22; HGB 15.6 gm/dL (13.0-17.5); MCH 36.3 pg (25.0-35.0); MCHC 34.4 g/dL (31.0-37.0); MCV 105.6 fL (80.0-100.0); Macrocytosis Moderate; Mean Platelet Volume 7.6; RBC 4.29 m/uL (4.30-5.90); RDW 13.9 % (11.5-15.5); WBC 7.7 k/uL (3.8-10.6); WBC (Perox) 7.69
[2017-01-16 08:05] LABS: Anion Gap 8 mmol/L; Calcium 7.9 mg/dL (8.4-10.2); Carbon Dioxide 19 mmol/L (22-30); Chloride 110 mmol/L (98-107); Glucose 83 mg/dL (74-99); Non-African American GFR(MDRD) >60 (>60 ml/min/1.73 sqM); Sodium 137 mmol/L (137-145); Total Bilirubin 1.7 mg/dL (0.2-1.3); Total Protein 5.1 g/dL (6.3-8.2)
[2017-01-16 08:17] LABS: ALT 25 U/L (21-72); AST 23 U/L (17-59); Alkaline Phosphatase 94 U/L (38-126); Blood Urea Nitrogen 9 mg/dL (9-20); Magnesium 1.6 mg/dL (1.6-2.3); Potassium 3.4 mmol/L (3.5-5.1)
[2017-01-16 08:32] LABS: Add Differential Manual Differential
[2017-01-16 08:34] LABS: Manual Review Performed; Nucleated Red Blood Cells 0 /100 WBC (0-0); Total Cells Counted 100
[2017-01-16] MEDS: PANTOPRAZOLE 40 MG TABLET PO SCH (08:45)
[2017-01-16] MEDS: cloNIDine HCL 0.1 MG TAB PO SCH ×2 (08:45→21:04)
--- NOTE | 2017-01-16 11:02 | CONS ---
PURPOSE FOR CONSULTATION: Evaluation for alcoholism and acute withdrawal. HISTORY OF PRESENTING ILLNESS: The patient is a 56 -year-old male, He has a diagnosis of alcoholism. He has had a history of withdrawal related hallucinations. There is an indication that he may have had past history of delirium tremens. He was admitted from home. Apparently had had been falling at home. He was not able to provide a clear history himself. His drinking history and other social issues are uncertain. The patient was to able to accurately give details. He did suggest that he fell and his statement broke my arm about a week before tis admission. He was not able to clarify details of his admission. It is noted that in general, vital signs have been relatively stable with mild tachycardia below 110 throughout the hospitalization. His blood alcohol level on admission was negligible. He has had some degree of confusion though Dr. Holland indicated on the day after admission, he was alert, responsive, slightly confused. Nursing staff had reported that generally he has been doing fairly well in terms of his overall behavior. Nursing staff indicated that he was fairly well oriented, "oriented times 3 this morning," with only some mild confusion. It is noted that his CIWA scores today have been 10 or below. Most below 5 though he did have one score of 14. MENTAL STATUS: When I talked to the patient, he had fair eye contact. He was slow in his responses. He was fairly calm. He only answered with brief responses. He gave generally appropriate answers. He seemed somewhat anxious. He did not demonstrate significant tremor. His mood was quiet. He did not appear to be distressed. He was able to say it was Wednesday and the . He had trouble coming up with the year. He first said 10 and then 20. After that he said it was near the end of 18. He was able to say that the President was [employer]. He had trouble coming up with where he was at. ASSESSMENT AND PLAN: The patient is diagnosed with alcohol dependence and acute alcohol withdrawal. It is not clear the patient meets criteria for delirium tremors on this admission given that for the most part his orientation has been fairly appropriate. 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 I do not have adequate past history to be able to clarify though certainly this would account for some of the issues the patient has had over several of his hospitalizations when he was in acute withdrawal. It is unclear what his baseline cognitive function is. I would raise concern that at 12 noon today his temp was 100.9. The two most concerning vital signs related to risk for DTs would be elevated temperature and diaphoresis. At this point, neither has been clearly present though we do need to monitor. I would agree with current medication regimen and ongoing treatment for acute withdrawal. It appears to be appropriate to continue the patient on his current dose of Seroquel . I would encourage staff to contact psychiatric again over the weekend if there are any immediate issues that need to be addressed. I will do a follow-up review on Wednesday. JEAN
[2017-01-16] MEDS: THIAMINE 100 MG TAB PO SCH ×2 (12:53→17:43)
[2017-01-16] MEDS: MULTIVITAMINS, THERA 1 EACH TAB PO SCH (12:53)
[2017-01-16] MEDS: FOLIC ACID 1 MG TAB PO SCH (12:53)
--- NOTE | 2017-01-16 12:53 | P.PN ---
Subjective Principal diagnosis: Patient seen and evaluated examined during the rounds he is overall less tremulous and anxious he is being monitored for alcohol withdrawal and impending DTs a sitter is present breathing comfortably no obvious hemodynamic distress is present Overall continued to progressively well no obvious distress present his electrolyte imbalances being replaced, patient does have some pain in the right arm and elbow for which x-rays has been performed, patient is being rather by psychiatric service for alcoholism and withdrawal, the right wrist and forearm x -ray failed to reveal any significant fracture Objective - Vital Signs Vital signs: Vital Signs Temp 98.8 F 01/16/17 07:00 Pulse 98 01/16/17 07:00 Resp 18 01/16/17 07:00 BP 127/85 01/16/17 07:00 Pulse Ox 95 01/16/17 07:00 Intake & Output 01/15/17 01/16/17 01/16/17 18:59 06:59 18:59 Other: Voiding Method Urinal Bedside Commode Bedside Commode Diaper Urinal Urinal Incontinent Diaper Diaper Incontinent Incontinent - Exam HEENT head normocephalic and atraumatic Neck is supple no JVD no goiter no lymphadenopathy Chest exam reveals a few scattered rhonchi no wheezing Cardiac exam reveals regular heart sounds no murmurs Abdomen is soft nontender no organomegaly Extremity exam reveals no edema, no cyanosis or clubbing Neurological examination reveals icis-rp-[id number] generalized tremors otherwise no focal deficit - Labs CBC & Chem 7: 01/16/17 06:09 01/16/17 06:09 Labs: Abnormal Lab Results - Last 24 Hours (Table) 01/15/17 01/16/17 01/16/17 Range/Units 16:02 06:09 06:09 RBC 4.29 L (4.30-5.90) m/uL MCV 105.6 H (80.0-100.0) fL MCH 36.3 H (25.0-35.0) pg Plt Count 126 L (150-450) k/uL Monocytes # (Manual) 1.23 H (0-1.0) k/uL Sodium 136 L (137-145) mmol/L Potassium 3.1 L 3.4 L (3.5-5.1) mmol/L Chloride 108 H 110 H (98-107) mmol/L Carbon Dioxide 19 L 19 L (22-30) mmol/L Calcium 7.9 L (8.4-10.2) mg/dL Magnesium 2.4 H (1.6-2.3) mg/dL Total Bilirubin 1.7 H (0.2-1.3) mg/dL Total Protein 5.1 L (6.3-8.2) g/dL Albumin 2.5 L (3.5-5.0) g/dL Assessment and Plan Plan: 1. Alcoholism with alcohol withdrawa, monitor and OBSERVE patient closely at medical floor with telemetry monitoring. Patient started on the CIWA protocol with Ativan when necessary. Continue thiamine, multivitamin and folic acid. Place patient on seizure precautions. Continue IV fluids. Counseled in length today in regards to quitting alcohol use. 2. Hypokalemia: Patient receiving potassium supplement. recheck potassium periodically 3. Hypomagnesemia: Patient receiving supplement. Repeat magnesium level at 6 PM 4. Acute Alcoholic hepatitis: Monitor and observe 5. Previous history of seizure from alcohol withdrawal 6. Thrombocytopenia secondary to patient's alcoholism. Time with Patient: Greater than 30
--- NOTE | 2017-01-16 14:45 | P.PN ---
Subjective Principal diagnosis: Patient is doing better today he is alert, responsive slightly confused, having mild tremors, improved since yesterday complaining of having frequency with urination otherwise no complaints at this time per patient. This is a 56-year-old male, patient of Dr. Edward. He has a known past medical history of alcoholism, previous hospitalization for alcohol withdrawal and DTs, seizure from alcohol withdrawal, hypertension, anxiety and depression. Patient reports that he had one glass of wine this morning. Some days he drinks heavier than others. His alcohol level on admission was less then 10. However patient is having active DTs. Hands are tremoring. He was slightly tachycardic with a heart rate of 103. EKG shows a normal sinus rhythm with a prolonged QT interval 414/517 ms. Patient initially admitted to the fifth floor. We'll transfer him up to the sixth floor with telemetry monitoring. Patient denies any fever or chills or sweats. He does admit to vomiting and having 1 looser stool. Does admit to having right upper quadrant abdominal pain. Denies any chest pain or shortness of breath. Denies any burning with urination. Objective - Vital Signs Vital signs: Vital Signs Temp 98.8 F 01/16/17 07:00 Pulse 98 01/16/17 07:00 Resp 18 01/16/17 07:00 BP 127/85 01/16/17 07:00 Pulse Ox 95 01/16/17 07:00 Intake & Output 01/15/17 01/16/17 01/16/17 18:59 06:59 18:59 Other: Voiding Method Urinal Bedside Commode Bedside Commode Diaper Urinal Urinal Incontinent Diaper Diaper Incontinent Incontinent - Exam HEENT head normocephalic and atraumatic Neck is supple no JVD no goiter no lymphadenopathy Chest exam reveals a few scattered rhonchi no wheezing Cardiac exam reveals regular heart sounds no murmurs Abdomen is soft nontender no organomegaly Extremity exam reveals no edema, no cyanosis or clubbing Neurological examination reveals [id number] generalized tremors otherwise no focal deficit - Labs CBC & Chem 7: 01/16/17 06:09 01/16/17 06:09 Labs: Abnormal Lab Results - Last 24 Hours (Table) 01/15/17 01/16/17 01/16/17 Range/Units 16:02 06:09 06:09 RBC 4.29 L (4.30-5.90) m/uL MCV 105.6 H (80.0-100.0) fL MCH 36.3 H (25.0-35.0) pg Plt Count 126 L (150-450) k/uL Monocytes # (Manual) 1.23 H (0-1.0) k/uL Sodium 136 L (137-145) mmol/L Potassium 3.1 L 3.4 L (3.5-5.1) mmol/L Chloride 108 H 110 H (98-107) mmol/L Carbon Dioxide 19 L 19 L (22-30) mmol/L Calcium 7.9 L (8.4-10.2) mg/dL Magnesium 2.4 H (1.6-2.3) mg/dL Total Bilirubin 1.7 H (0.2-1.3) mg/dL Total Protein 5.1 L (6.3-8.2) g/dL Albumin 2.5 L (3.5-5.0) g/dL Assessment and Plan Plan: 1. Alcoholism with alcohol withdrawa, transfer patient to medical floor with telemetry monitoring. Patient started on the CIWA protocol with Ativan when necessary. Continue thiamine, multivitamin and folic acid. Place patient on seizure precautions. Continue IV fluids. Counseled in length today in regards to quitting alcohol use. 2. Hypokalemia: Patient receiving potassium supplement. recheck potassium level in am 3. Hypomagnesemia: Patient receiving supplement. Repeat magnesium level at 6 PM 4. Acute Alcoholic hepatitis: Repeat labs in a.m. Continue with IV fluids 5. Previous history of seizure from alcohol withdrawal 6. Thrombocytopenia secondary to patient's alcoholism. Repeat labs in a.m. 7. Generalized weakness patient and able to stand or walk continue physical therapy and will reassess on Wednesday if patient need to be transferred to a rehab unit
[2017-01-16] MEDS: QUEtiapine 50 MG TAB PO SCH (20:31)
[2017-01-17] MEDS: chlordiazePOXIDE 25 MG CAP PO PRN (04:37)
[2017-01-17 07:30] LABS: Aty Lym Flag Slight; Basophils # (A) 0.1 k/uL (0-0.2); Basophils % (A) 1 %; CH 35.5; CHCM 32.1; Eosinophils # (A) 0.1 k/uL (0-0.7); Eosinophils % (A) 1 %; HCT 45.8 % (39.0-53.0); HGB 14.8 gm/dL (13.0-17.5); Luc # (Auto) 0.58; Luc % (Auto) 7; Lymphocytes # (A) 1.1 k/uL (1.0-4.8); Lymphocytes % (A) 13 %; MCH 35.7 pg (25.0-35.0); MCHC 32.2 g/dL (31.0-37.0); Macrocytosis Marked; Mean Platelet Volume 8.4; Monocytes # (A) 1.2 k/uL (0-1.0); Monocytes % (A) 14 %; Neutrophils # (A) 5.8 k/uL (1.3-7.7); Neutrophils % (A) 65 %; RBC 4.13 m/uL (4.30-5.90); RDW 14.3 % (11.5-15.5); WBC 8.9 k/uL (3.8-10.6); WBC (Perox) 8.61
[2017-01-17 07:40] LABS: MCV 110.9 fL (80.0-100.0)
[2017-01-17] MEDS: PANTOPRAZOLE 40 MG TABLET PO SCH (08:52)
[2017-01-17] MEDS: cloNIDine HCL 0.1 MG TAB PO SCH ×3 (08:52→21:50)
[2017-01-17 09:47] LABS: ALT 30 U/L (21-72); AST 20 U/L (17-59); Alkaline Phosphatase 100 U/L (38-126); Anion Gap 9 mmol/L; Blood Urea Nitrogen 8 mg/dL (9-20); Calcium 8.3 mg/dL (8.4-10.2); Carbon Dioxide 21 mmol/L (22-30); Chloride 106 mmol/L (98-107); Glucose 105 mg/dL (74-99); Magnesium 1.3 mg/dL (1.6-2.3); Non-African American GFR(MDRD) >60 (>60 ml/min/1.73 sqM); Potassium 3.2 mmol/L (3.5-5.1); Sodium 136 mmol/L (137-145); Total Bilirubin 2.2 mg/dL (0.2-1.3); Total Protein 5.3 g/dL (6.3-8.2)
[2017-01-17] MEDS ORDERED: Magnesium Replacement Protocol 1 EACH MISC MISCELLANE PRN (11:57)
[2017-01-17] MEDS ORDERED: Potassium Replacement Protocol 1 EACH MISC MISCELLANE PRN (11:57)
--- NOTE | 2017-01-17 12:45 | P.PN ---
Subjective Principal diagnosis: Patient seen and evaluated examined during the rounds he is overall less tremulous and anxious he is being monitored for alcohol withdrawal and impending DTs a sitter is present breathing comfortably no obvious hemodynamic distress is present Overall continued to progressively well no obvious distress present his electrolyte imbalances being replaced, patient does have some pain in the right arm and elbow for which x-rays has been performed, patient is being rather by psychiatric service for alcoholism and withdrawal, the right wrist and forearm x -ray failed to reveal any significant fracture Objective - Vital Signs Vital signs: Vital Signs Temp 98.9 F 01/17/17 07:00 Pulse 86 01/17/17 07:00 Resp 18 01/17/17 07:00 BP 121/77 01/17/17 07:00 Pulse Ox 93 L 01/17/17 07:00 Intake & Output 01/16/17 01/17/17 01/17/17 18:59 06:59 18:59 Other: Voiding Method Bedside Commode Bedside Commode Bedside Commode Urinal Urinal Urinal Diaper Diaper Diaper Incontinent Incontinent Incontinent - Exam HEENT head normocephalic and atraumatic Neck is supple no JVD no goiter no lymphadenopathy Chest exam reveals a few scattered rhonchi no wheezing Cardiac exam reveals regular heart sounds no murmurs Abdomen is soft nontender no organomegaly Extremity exam reveals no edema, no cyanosis or clubbing Neurological examination reveals cixn-rt-xshnxqdy generalized tremors otherwise no focal deficit - Labs CBC & Chem 7: 01/17/17 06:55 01/17/17 09:14 Labs: Abnormal Lab Results - Last 24 Hours (Table) 01/17/17 01/17/17 Range/Units 06:55 09:14 RBC 4.13 L (4.30-5.90) m/uL MCV 110.9 H D (80.0-100.0) fL MCH 35.7 H (25.0-35.0) pg Monocytes # 1.2 H (0-1.0) k/uL Sodium 136 L (137-145) mmol/L Potassium 3.2 L (3.5-5.1) mmol/L Carbon Dioxide 21 L (22-30) mmol/L BUN 8 L (9-20) mg/dL Glucose 105 H (74-99) mg/dL Calcium 8.3 L (8.4-10.2) mg/dL Magnesium 1.3 L (1.6-2.3) mg/dL Total Bilirubin 2.2 H (0.2-1.3) mg/dL Total Protein 5.3 L (6.3-8.2) g/dL Albumin 2.6 L (3.5-5.0) g/dL Assessment and Plan Plan: 1. Alcoholism with alcohol withdrawa, monitor and OBSERVE patient closely at medical floor with telemetry monitoring. Patient started on the CIWA protocol with Ativan when necessary. Continue thiamine, multivitamin and folic acid. Place patient on seizure precautions. Continue IV fluids. Counseled in length today in regards to quitting alcohol use. 2. Hypokalemia: Patient receiving potassium supplement. recheck potassium periodically 3. Hypomagnesemia: Patient receiving supplement. Repeat magnesium level at 6 PM 4. Acute Alcoholic hepatitis: Monitor and observe 5. Previous history of seizure from alcohol withdrawal 6. Thrombocytopenia secondary to patient's alcoholism. Time with Patient: Greater than 30
[2017-01-17] MEDS: MAGNESIUM SULFATE-D5W PMX 1 GM in DEXTROSE/WATER 1 100ML.BAG IVPB SCH ×3 (13:15→15:41)
[2017-01-17] MEDS: POTASSIUM CHLORIDE ER 20 MEQ TAB.ER PO SCH ×2 (13:15→14:57)
[2017-01-17] MEDS: MULTIVITAMINS, THERA 1 EACH TAB PO SCH (13:16)
[2017-01-17] MEDS: FOLIC ACID 1 MG TAB PO SCH (13:16)
[2017-01-17] MEDS: THIAMINE 100 MG TAB PO SCH ×2 (13:16→15:42)
--- NOTE | 2017-01-17 17:47 | P.PN ---
Subjective Principal diagnosis: Patient is doing better today he is alert, responsive slightly confused, having mild tremors, improved since yesterday complaining of having frequency with urination otherwise no complaints at this time per patient. This is a 56-year-old male, patient of Dr. Edward. He has a known past medical history of alcoholism, previous hospitalization for alcohol withdrawal and DTs, seizure from alcohol withdrawal, hypertension, anxiety and depression. Patient reports that he had one glass of wine this morning. Some days he drinks heavier than others. His alcohol level on admission was less then 10. However patient is having active DTs. Hands are tremoring. He was slightly tachycardic with a heart rate of 103. EKG shows a normal sinus rhythm with a prolonged QT interval 414/517 ms. Patient initially admitted to the fifth floor. We'll transfer him up to the sixth floor with telemetry monitoring. Patient denies any fever or chills or sweats. He does admit to vomiting and having 1 looser stool. Does admit to having right upper quadrant abdominal pain. Denies any chest pain or shortness of breath. Denies any burning with urination. Objective - Vital Signs Vital signs: Vital Signs Temp 98.9 F 01/17/17 15:00 Pulse 87 01/17/17 15:00 Resp 16 01/17/17 15:00 BP 105/72 01/17/17 15:00 Pulse Ox 93 L 01/17/17 15:00 Intake & Output 01/16/17 01/17/17 01/17/17 18:59 06:59 18:59 Other: Voiding Method Bedside Commode Bedside Commode Bedside Commode Urinal Urinal Urinal Diaper Diaper Diaper Incontinent Incontinent Incontinent - Exam HEENT head normocephalic and atraumatic Neck is supple no JVD no goiter no lymphadenopathy Chest exam reveals a few scattered rhonchi no wheezing Cardiac exam reveals regular heart sounds no murmurs Abdomen is soft nontender no organomegaly Extremity exam reveals no edema, no cyanosis or clubbing Neurological examination reveals [id number]-[id number] generalized tremors otherwise no focal deficit - Labs CBC & Chem 7: 01/17/17 06:55 01/17/17 09:14 Labs: Abnormal Lab Results - Last 24 Hours (Table) 01/17/17 01/17/17 Range/Units 06:55 09:14 RBC 4.13 L (4.30-5.90) m/uL MCV 110.9 H D (80.0-100.0) fL MCH 35.7 H (25.0-35.0) pg Monocytes # 1.2 H (0-1.0) k/uL Sodium 136 L (137-145) mmol/L Potassium 3.2 L (3.5-5.1) mmol/L Carbon Dioxide 21 L (22-30) mmol/L BUN 8 L (9-20) mg/dL Glucose 105 H (74-99) mg/dL Calcium 8.3 L (8.4-10.2) mg/dL Magnesium 1.3 L (1.6-2.3) mg/dL Total Bilirubin 2.2 H (0.2-1.3) mg/dL Total Protein 5.3 L (6.3-8.2) g/dL Albumin 2.6 L (3.5-5.0) g/dL Assessment and Plan Plan: 1. Alcoholism with alcohol withdrawa, transfer patient to medical floor with telemetry monitoring. Patient started on the CIWA protocol with Ativan when necessary. Continue thiamine, multivitamin and folic acid. Place patient on seizure precautions. Continue IV fluids. Counseled in length today in regards to quitting alcohol use. 2. Hypokalemia: Patient receiving potassium supplement. recheck potassium level in am 3. Hypomagnesemia: Patient receiving supplement. Repeat magnesium level at 6 PM 4. Acute Alcoholic hepatitis: Repeat labs in a.m. Continue with IV fluids 5. Previous history of seizure from alcohol withdrawal 6. Thrombocytopenia secondary to patient's alcoholism. Repeat labs in a.m. 7. Generalized weakness patient and able to stand or walk continue physical therapy and will reassess on Wednesday if patient need to be transferred to a rehab unit Patient is improving gradually he is still extremely weak he is having bladder and bowel incontinence continue was current management patient may need rehab. At one of the long term prior to going home
[2017-01-17] MEDS: QUEtiapine 50 MG TAB PO SCH (21:38)
[2017-01-18 08:25] LABS: Aty Lym Flag Slight; CH 36.2; CHCM 33.7; HCT 41.3 % (39.0-53.0); HDW 2.24; HGB 13.6 gm/dL (13.0-17.5); MCH 35.5 pg (25.0-35.0); MCV 107.6 fL (80.0-100.0); Macrocytosis Moderate; Mean Platelet Volume 7.7; RBC 3.84 m/uL (4.30-5.90); RDW 13.6 % (11.5-15.5); WBC 8.5 k/uL (3.8-10.6)
[2017-01-18] MEDS: HYDROcodone/APAP 5-325MG 1 EACH TAB PO PRN ×2 (09:00→15:39)
[2017-01-18] MEDS: cloNIDine HCL 0.1 MG TAB PO SCH ×2 (09:00→22:39)
[2017-01-18] MEDS: PANTOPRAZOLE 40 MG TABLET PO SCH (09:02)
[2017-01-18 09:33] LABS: ALT 28 U/L (21-72); AST 22 U/L (17-59); Alkaline Phosphatase 96 U/L (38-126); Anion Gap 10 mmol/L; Blood Urea Nitrogen 6 mg/dL (9-20); Calcium 7.9 mg/dL (8.4-10.2); Carbon Dioxide 21 mmol/L (22-30); Chloride 105 mmol/L (98-107); Glucose 87 mg/dL (74-99); Magnesium 1.4 mg/dL (1.6-2.3); Non-African American GFR(MDRD) >60 (>60 ml/min/1.73 sqM); Potassium 3.2 mmol/L (3.5-5.1); Sodium 136 mmol/L (137-145); Total Bilirubin 1.9 mg/dL (0.2-1.3); Total Protein 5.1 g/dL (6.3-8.2)
[2017-01-18 09:50] LABS: Add Differential Manual Differential
[2017-01-18 09:54] LABS: Nucleated Red Blood Cells 0 /100 WBC (0-0); Total Cells Counted 100
[2017-01-18 09:55] LABS: Manual Review Performed
--- NOTE | 2017-01-18 10:29 | P.PN ---
Subjective Patient is being seen examined and evaluated today during rounds. He continues to be monitored for alcohol withdrawal and impending DTs. Currently family at bedside. The patient has less tremors and less anxiousness today. Currently the patient is resting up in bed on room air denies any cough congestion or shortness of breath. He is hemodynamically stable. He continues on CIWA protocol as well as electrolyte replacement protocols. The patient continues to gradually improve slowly. Currently the patient is being worked up to go to rehab facility upon discharge. Objective - Vital Signs Vital signs: Vital Signs Temp 98.8 F 01/18/17 07:00 Pulse 107 H 01/18/17 07:00 Resp 18 01/18/17 07:14 BP 116/68 01/18/17 07:00 Pulse Ox 94 L 01/18/17 07:00 Intake & Output 01/17/17 01/18/17 01/18/17 18:59 06:59 18:59 Other: Voiding Method Bedside Commode Bedside Commode Bedside Commode Urinal Urinal Urinal Diaper Diaper Diaper Incontinent Incontinent Incontinent - Exam GENERAL EXAM: Alert, active, comfortable in no apparent distress. HEAD: Normocephalic. EYES: Normal reaction of pupils, equal size. NOSE: Clear with pink turbinates. THROAT: No erythema or exudates. NECK: No masses, no JVD. CHEST: No chest wall deformity. LUNGS: Equal air entry with no crackles, wheeze, rhonchi or dullness. Bases diminished CVS: S1 and S2 normal with no audible mumurs, regular rhythm. ABDOMEN: No hepatosplenomegaly, normal bowel sounds, no guarding or rigidity. EXTREMITIES: No edema noted, pedal pulses palpable. SKIN: No rashes CENTRAL NERVOUS SYSTEM: No focal deficits, tone is normal in all 4 extremities. Some faint generalized tremors noted - Labs CBC & Chem 7: 01/18/17 07:54 01/18/17 07:50 Labs: Abnormal Lab Results - Last 24 Hours (Table) 01/18/17 01/18/17 Range/Units 07:50 07:54 RBC 3.84 L (4.30-5.90) m/uL MCV 107.6 H (80.0-100.0) fL MCH 35.5 H (25.0-35.0) pg Sodium 136 L (137-145) mmol/L Potassium 3.2 L (3.5-5.1) mmol/L Carbon Dioxide 21 L (22-30) mmol/L BUN 6 L (9-20) mg/dL Creatinine 0.62 L (0.66-1.25) mg/dL Calcium 7.9 L (8.4-10.2) mg/dL Magnesium 1.4 L (1.6-2.3) mg/dL Total Bilirubin 1.9 H (0.2-1.3) mg/dL Total Protein 5.1 L (6.3-8.2) g/dL Albumin 2.5 L (3.5-5.0) g/dL Assessment and Plan Plan: Assessment Alcohol dependence with alcohol withdrawals, maintained on CIWA protocol for impending DTs Hypokalemia Hypomagnesemia Acute alcoholic hepatitis History of seizures with alcohol withdrawal Thrombocytopenia Plan Patient could be cleared from a pulmonary/critical care standpoint for discharge to a rehabilitation facility in the near future. Medications have been reviewed and will be continued as ordered. Continue with pulmonary hygiene , coughing and deep breathing exercises, and supportive care. Supplemental oxygen to maintain oxygen saturations of 92% or better. Continue nebulizer treatments. GI and DVT prophylaxis. We will continue to monitor labs/results and adjust treatment as necessary. Further recommendations pending. I performed an examination of the patient and discussed their management with the nurse practitioner. I have reviewed the nurse practitioner's note and agree with the documented findings and plan of care.
[2017-01-18] MEDS ORDERED: POTASSIUM CHLORIDE ER 20 MEQ TAB.ER PO STA (10:41)
--- NOTE | 2017-01-18 10:45 | P.PN ---
Subjective This is a 56-year-old male, patient of Dr. Edward. He has a known past medical history of alcoholism, previous hospitalization for alcohol withdrawal and DTs, seizure from alcohol withdrawal, hypertension, anxiety and depression. Patient reports that he had one glass of wine this morning. Some days he drinks heavier than others. His alcohol level on admission was less then 10. However patient is having active DTs. Hands are tremoring. He was slightly tachycardic with a heart rate of 103. EKG shows a normal sinus rhythm with a prolonged QT interval 414/517 ms. Patient initially admitted to the fifth floor. We'll transfer him up to the sixth floor with telemetry monitoring. Patient denies any fever or chills or sweats. He does admit to vomiting and having 1 looser stool. Does admit to having right upper quadrant abdominal pain. Denies any chest pain or shortness of breath. Denies any burning with urination. 01/14/2017 patient still having some tremors. He was able to be transferred out of the ICU yesterday. He had episode of being combative through the night. He has been receiving IV antibiotics and. Any a sitter at bedside. Patient does have some slurring of his words but he did receive Ativan this morning. He denies any chest pain shortness of breath. Denies any nausea or vomiting. reports improvement in his abdominal pain. 01/15/2017 patient is more awake and alert today. He is complaining of right elbow pain. Apparently he fell before he came in. X-ray of the elbow completed showing no evidence of fracture. Awaiting psychiatry and social work evaluation. Potassium and magnesium being replaced today. Patient has no other complaints. He is eating and drinking appropriately fluids will be hep- locked 01/18/2017 patient complaining of some back pain. He just received [place]. Lying in bed comfortably. No distress. Denies any chest pain shortness breath. Denies any nausea or vomiting. Denies any bowel movement changes or urinary symptoms. Objective - Vital Signs Vital signs: Vital Signs Temp 98.8 F 01/18/17 07:00 Pulse 107 H 01/18/17 07:00 Resp 18 01/18/17 07:14 BP 116/68 01/18/17 07:00 Pulse Ox 94 L 01/18/17 07:00 Intake & Output 08/01/18/17 01/18/17 18:59 06:59 18:59 Other: Voiding Method Bedside Commode Bedside Commode Bedside Commode Urinal Urinal Urinal Diaper Diaper Diaper Incontinent Incontinent Incontinent - Exam Head normocephalic Neck supple Lungs clear to auscultation bilaterally no wheezing or crackles Heart regular rate and rhythm S1-S2, no rub or gallop Abdomen is soft nontender nondistended positive bowel sounds no hepatosplenomegaly Extremities no edema Neuro still having some confusion - Labs CBC & Chem 7: 01/18/17 07:54 01/18/17 07:50 Labs: Abnormal Lab Results - Last 24 Hours (Table) 01/18/17 01/18/17 Range/Units 07:50 07:54 RBC 3.84 L (4.30-5.90) m/uL MCV 107.6 H (80.0-100.0) fL MCH 35.5 H (25.0-35.0) pg Sodium 136 L (137-145) mmol/L Potassium 3.2 L (3.5-5.1) mmol/L Carbon Dioxide 21 L (22-30) mmol/L BUN 6 L (9-20) mg/dL Creatinine 0.62 L (0.66-1.25) mg/dL Calcium 7.9 L (8.4-10.2) mg/dL Magnesium 1.4 L (1.6-2.3) mg/dL Total Bilirubin 1.9 H (0.2-1.3) mg/dL Total Protein 5.1 L (6.3-8.2) g/dL Albumin 2.5 L (3.5-5.0) g/dL Assessment and Plan Plan: 1. Alcoholism with alcohol withdrawal: Patient is out of the ICU. Continue the CIWA protocol with Ativan when necessary. Continue thiamine, multivitamin and folic acid. Place patient on seizure precautions. Psychiatry consult appreciated. They will reevaluate patient today 2. Hypokalemia: Give K Dur 40 mEq 1. Repeat labs in a.m. 3. Hypomagnesemia: Give magnesium sulfate 2 g 1. Repeat labs in a.m. 4. Acute Alcoholic hepatitis: Liver enzymes have shown improvement 5. Previous history of seizure from alcohol withdrawal 6. Thrombocytopenia secondary to patient's alcoholism. Repeat labs in a.m. 7. Right elbow pain. X-ray shows no evidence of fracture. Keep elbow elevated apply ice. We'll order [place] 5/325 one every 6 hours as needed for pain Anticipating possible discharge to ECF when patient is medically stable GI prophylaxis Protonix and DVT prophylaxis SCDs because of the thrombocytopenia I performed an examination of the patient and discussed their management with the physician Certified Ophthalmic Technologist. I have reviewed the Physician Certified Ophthalmic Technologist's notes and agree with the documented findings and plan of care
[2017-01-18] MEDS: MAGNESIUM SULFATE-D5W PMX 1 GM in DEXTROSE/WATER 1 100ML.BAG IVPB SCH ×2 (11:20→15:41)
[2017-01-18] MEDS: THIAMINE 100 MG TAB PO SCH ×2 (12:54→18:08)
[2017-01-18] MEDS: FOLIC ACID 1 MG TAB PO SCH (12:54)
[2017-01-18] MEDS: MULTIVITAMINS, THERA 1 EACH TAB PO SCH (12:54)
--- NOTE | 2017-01-18 17:17 | XR ---
EXAMINATION TYPE: XR chest 1V portable DATE OF EXAM: 01/18/2017 COMPARISON: 07/29/2016 HISTORY: Facility placement TECHNIQUE: Single frontal view of the chest is obtained. FINDINGS: Heart and mediastinum are normal. There is coarse interstitial density in the left lower l obe. The right lung is clear. Heart is shifted slightly to the left side. IMPRESSION: There is new interstitial infiltrate and atelectasis in the left lung compared to last e xam. Normal heart. No heart failure.
[2017-01-18 20:21] LABS: Potassium 3.6 mmol/L (3.5-5.1)
[2017-01-18] MEDS ORDERED: Potassium Replacement Protocol 1 EACH MISC MISCELLANE PRN (21:41)
[2017-01-18] MEDS ORDERED: POTASSIUM CHLORIDE ER 20 MEQ TAB.ER PO SCH (22:00)
[2017-01-18] MEDS: QUEtiapine 50 MG TAB PO SCH (22:38)
[2017-01-18] MEDS: LORazepam 2 MG/ML SYRINGE IV PRN (23:04)
[2017-01-19 08:24] LABS: ALT 20 U/L (21-72); AST 20 U/L (17-59); Alkaline Phosphatase 85 U/L (38-126); Anion Gap 8 mmol/L; Basophils # (A) 0.1 k/uL (0-0.2); Basophils % (A) 1 %; Blood Urea Nitrogen 9 mg/dL (9-20); CH 35.1; CHCM 32.7; Calcium 8.3 mg/dL (8.4-10.2); Carbon Dioxide 21 mmol/L (22-30); Chloride 108 mmol/L (98-107); Eosinophils # (A) 0.2 k/uL (0-0.7); Eosinophils % (A) 3 %; Glucose 87 mg/dL (74-99); HCT 39.2 % (39.0-53.0); HGB 13.4 gm/dL (13.0-17.5); Luc # (Auto) 0.31; Luc % (Auto) 4; Lymphocytes # (A) 1.2 k/uL (1.0-4.8); Lymphocytes % (A) 16 %; MCH 36.5 pg (25.0-35.0); MCV 107.4 fL (80.0-100.0); Macrocytosis Moderate; Magnesium 1.5 mg/dL (1.6-2.3); Mean Platelet Volume 7.1; Monocytes # (A) 0.5 k/uL (0-1.0); Monocytes % (A) 7 %; Neutrophils # (A) 5.3 k/uL (1.3-7.7); Neutrophils % (A) 69 %; Non-African American GFR(MDRD) >60 (>60 ml/min/1.73 sqM); Potassium 3.8 mmol/L (3.5-5.1); RBC 3.65 m/uL (4.30-5.90); RDW 13.4 % (11.5-15.5); Sodium 137 mmol/L (137-145); Total Bilirubin 0.9 mg/dL (0.2-1.3); Total Protein 4.8 g/dL (6.3-8.2); WBC 7.7 k/uL (3.8-10.6); WBC (Perox) 7.71
[2017-01-19] MEDS: cloNIDine HCL 0.1 MG TAB PO SCH ×2 (08:29→22:17)
[2017-01-19] MEDS: PANTOPRAZOLE 40 MG TABLET PO SCH (08:29)
--- NOTE | 2017-01-19 08:56 | XR ---
EXAMINATION TYPE: XR shoulder limited RT , 2 VIEWS DATE OF EXAM ORDERED: 01/19/2017 HISTORY: Patient unable to move, possible fracture. COMPARISON: None. FINDINGS: No fracture or dislocation is seen. There appears to be a chronic AC joint separation on t he right. IMPRESSION: FINDINGS CONSISTENT WITH A CHRONIC RIGHT ACROMIOCLAVICULAR SEPARATION.
[2017-01-19] MEDS: FOLIC ACID 1 MG TAB PO SCH (11:31)
[2017-01-19] MEDS: MULTIVITAMINS, THERA 1 EACH TAB PO SCH (11:31)
[2017-01-19] MEDS: THIAMINE 100 MG TAB PO SCH ×2 (11:31→16:42)
--- NOTE | 2017-01-19 12:08 | P.PN ---
Subjective 01/18/17- Patient is being seen examined and evaluated today during rounds. He continues to be monitored for alcohol withdrawal and impending DTs. Currently family at bedside. The patient has less tremors and less anxiousness today. Currently the patient is resting up in bed on room air denies any cough congestion or shortness of breath. He is hemodynamically stable. He continues on CIWA protocol as well as electrolyte replacement protocols. The patient continues to gradually improve slowly. Currently the patient is being worked up to go to rehab facility upon discharge. 01/19/17- patient has been seen examined and evaluated today during rounds on the fifth floor. She continues to be on CIWA protocol. His alcohol withdrawal assessment per CIWA scale have been low. Between 0 and 3. Upon examination the patient's resting up in bed on room air, does state he does have some shortness of breath with exertion, however denies any cough or congestion at this time. Patient did have a chest x-ray on 01/18/2017 which did show a new interstitial infiltrate and atelectasis of the left lung compared to last exam, normal heart, and no heart failure present. Patient was started on breathing treatments. Of note patient did have some pain and guarding to his right arm which medical had ordered a stat x-ray, x-ray findings consistent with a chronic right acromioclavicular separation, patient states he did not have this before, the pain is new. Patient denies any recent falls or injuries to the area. Ortho has been consult it. Objective - Vital Signs Vital signs: Vital Signs Temp 98.5 F 01/19/17 07:00 Pulse 82 01/19/17 08:00 Resp 18 01/19/17 08:00 BP 106/66 01/19/17 07:00 Pulse Ox 95 01/19/17 07:00 Intake & Output 01/18/17 01/19/17 01/19/17 18:59 06:59 18:59 Intake Total 100 590 360 Output Total 300 Balance -200 590 360 Weight 70.6 kg 70.6 kg Intake: Intake, IV Titration 100 Amount Magnesium Sulfate-D5w Pmx 100 1 gm In Dextrose/Water 1 100ml.bag @ 100 mls/hr IVPB Q1H [facility] Rx#: [id number] Oral 590 360 Output: Urine 300 Other: Voiding Method Bedside Commode Bedside Commode Bedside Commode Urinal Urinal Urinal Diaper Diaper Diaper Incontinent Incontinent Incontinent # Voids 1 3 - Exam GENERAL EXAM: Alert, active, comfortable in no apparent distress. HEAD: Normocephalic. EYES: Normal reaction of pupils, equal size. NOSE: Clear with pink turbinates. THROAT: No erythema or exudates. NECK: No masses, no JVD. CHEST: No chest wall deformity. LUNGS: Equal air entry with no crackles, wheeze, rhonchi or dullness. Bases diminished CVS: S1 and S2 normal with no audible mumurs, regular rhythm. ABDOMEN: No hepatosplenomegaly, normal bowel sounds, no guarding or rigidity. EXTREMITIES: No edema noted, pedal pulses palpable. SKIN: No rashes CENTRAL NERVOUS SYSTEM: No focal deficits, tone is normal in all 4 extremities. Some faint generalized tremors noted - Labs CBC & Chem 7: 01/19/17 07:33 01/19/17 07:33 Labs: Abnormal Lab Results - Last 24 Hours (Table) 01/19/17 01/19/17 Range/Units 07:33 07:33 RBC 3.65 L (4.30-5.90) m/uL MCV 107.4 H (80.0-100.0) fL MCH 36.5 H (25.0-35.0) pg Chloride 108 H (98-107) mmol/L Carbon Dioxide 21 L (22-30) mmol/L Creatinine 0.61 L (0.66-1.25) mg/dL Calcium 8.3 L (8.4-10.2) mg/dL Magnesium 1.5 L (1.6-2.3) mg/dL ALT 20 L (21-72) U/L Total Protein 4.8 L (6.3-8.2) g/dL Albumin 2.3 L (3.5-5.0) g/dL Assessment and Plan Plan: Assessment Alcohol dependence with alcohol withdrawals, maintained on CIWA protocol for impending DTs Hypokalemia Hypomagnesemia Acute alcoholic hepatitis History of seizures with alcohol withdrawal Thrombocytopenia Plan Patient could be cleared from a pulmonary/critical care standpoint for discharge to a rehabilitation facility in the near future. Also has been consulted. Medications have been reviewed and will be continued as ordered. Continue with pulmonary hygiene, coughing and deep breathing exercises, and supportive care. Supplemental oxygen to maintain oxygen saturations of 92% or better. Continue nebulizer treatments. GI and DVT prophylaxis. Increase activity and ambulation as tolerated. We will continue to monitor labs/results and adjust treatment as necessary. Further recommendations pending. I performed an examination of the patient and discussed their management with the nurse practitioner. I have reviewed the nurse practitioner's note and agree with the documented findings and plan of care.
--- NOTE | 2017-01-19 12:24 | CONS ---
DATE OF SERVICE: 01/18/2017 PURPOSE FOR CONSULTATION: Evaluate for alcoholism and acute withdrawal. INTERVAL HISTORY: Patient has been doing fairly well from the standpoint of his alcohol withdrawal. He remains mildly confused. He is oriented to place and person. He struggles some with date. He is generally aware of his treatment issues. He has not had significant signs of alcohol withdrawal. His vital signs remain stable. CIWA scores have been near zero. He has not had significant problems with mood. He has some mild anxiety. He has fair appetite. He has been cooperative. He is now 7 days into alcohol withdrawal. When I saw the patient he was resting. He gave fair eye contract. Psychomotor activity was a little slowed. He responded to a few questions. He did not say a lot. He was a little tangential in his responses. His mood was even. He smiled a little. He did not appear to be distress. ASSESSMENT: The patient continues in acute alcohol withdrawal. He is beyond the risk period for delirium tremens. He continues with some level of confusion, but likely related to underlying cognitive issues as opposed to something acute relating to withdrawal. 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 He is fairly stable from psychiatric standpoint. It is noted that he received Librium at 0437 on the twenty-. It is unclear what the purpose was for that given that he is on protocol for Ativan for alcohol withdrawal. The use of Librium is redundant and does increase risk for side effects, which mainly is impaired cognitive and motor performance. My understanding is patient will be discharged to care facility in the next few days. MTDD
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
--- NOTE | 2017-01-19 17:22 | P.PN ---
Subjective Principal diagnosis: Patient is doing better today he is alert, responsive slightly confused, having mild tremors, improved since yesterday complaining of having frequency with urination otherwise no complaints at this time per patient. This is a 56-year-old male, patient of Dr. Edward. He has a known past medical history of alcoholism, previous hospitalization for alcohol withdrawal and DTs, seizure from alcohol withdrawal, hypertension, anxiety and depression. Patient reports that he had one glass of wine this morning. Some days he drinks heavier than others. His alcohol level on admission was less then 10. However patient is having active DTs. Hands are tremoring. He was slightly tachycardic with a heart rate of 103. EKG shows a normal sinus rhythm with a prolonged QT interval 414/517 ms. Patient initially admitted to the fifth floor. We'll transfer him up to the sixth floor with telemetry monitoring. Patient denies any fever or chills or sweats. He does admit to vomiting and having 1 looser stool. Does admit to having right upper quadrant abdominal pain. Denies any chest pain or shortness of breath. Denies any burning with urination. Objective - Vital Signs Vital signs: Vital Signs Temp 97.7 F 01/19/17 15:00 Pulse 101 H 01/19/17 15:28 Resp 18 01/19/17 15:28 BP 95/65 01/19/17 15:00 Pulse Ox 91 L 01/19/17 15:00 Intake & Output 01/18/17 01/19/17 01/19/17 18:59 06:59 18:59 Intake Total 100 590 720 Output Total 300 Balance -200 590 720 Weight 70.6 kg 70.6 kg Intake: Intake, IV Titration 100 Amount Magnesium Sulfate-D5w Pmx 100 1 gm In Dextrose/Water 1 100ml.bag @ 100 mls/hr IVPB Q1H [facility] Rx#: [id number] Oral 590 720 Output: Urine 300 Other: Voiding Method Bedside Commode Bedside Commode Bedside Commode Urinal Urinal Urinal Diaper Diaper Diaper Incontinent Incontinent Incontinent # Voids 1 3 - Exam HEENT head normocephalic and atraumatic Neck is supple no JVD no goiter no lymphadenopathy Chest exam reveals a few scattered rhonchi no wheezing Cardiac exam reveals regular heart sounds no murmurs Abdomen is soft nontender no organomegaly Extremity exam reveals no edema, no cyanosis or clubbing Neurological examination reveals [id number] generalized tremors otherwise no focal deficit - Labs CBC & Chem 7: 01/19/17 07:33 01/19/17 07:33 Labs: Abnormal Lab Results - Last 24 Hours (Table) 01/19/17 01/19/17 Range/Units 07:33 07:33 RBC 3.65 L (4.30-5.90) m/uL MCV 107.4 H (80.0-100.0) fL MCH 36.5 H (25.0-35.0) pg Chloride 108 H (98-107) mmol/L Carbon Dioxide 21 L (22-30) mmol/L Creatinine 0.61 L (0.66-1.25) mg/dL Calcium 8.3 L (8.4-10.2) mg/dL Magnesium 1.5 L (1.6-2.3) mg/dL ALT 20 L (21-72) U/L Total Protein 4.8 L (6.3-8.2) g/dL Albumin 2.3 L (3.5-5.0) g/dL Assessment and Plan Plan: 1. Alcoholism with alcohol withdrawa, transfer patient to medical floor with telemetry monitoring. Patient started on the CIWA protocol with Ativan when necessary. Continue thiamine, multivitamin and folic acid. Place patient on seizure precautions. Continue IV fluids. Counseled in length today in regards to quitting alcohol use. 2. Hypokalemia: Patient receiving potassium supplement. recheck potassium level in am 3. Hypomagnesemia: Patient receiving supplement. Repeat magnesium level at 6 PM 4. Acute Alcoholic hepatitis: Repeat labs in a.m. Continue with IV fluids 5. Previous history of seizure from alcohol withdrawal 6. Thrombocytopenia secondary to patient's alcoholism. Repeat labs in a.m. 7. Generalized weakness patient and able to stand or walk continue physical therapy and will reassess on Wednesday if patient need to be transferred to a rehab unit 8. R shoulder pain X Ray done patient seen by Orthopedic surgery, no intervention recommended at this time. Patient is improving gradually he is still extremely weak he is having bladder and bowel incontinence continue was current management patient may need rehab. [facility] to going [facility]
[2017-01-19] MEDS: IPRATROPIUM-ALBUTEROL 3 ML NEB INHALATION SCH ×2 (19:41)
[2017-01-19] MEDS ORDERED: Magnesium Replacement Protocol 1 EACH MISC MISCELLANE PRN (21:16)
[2017-01-19] MEDS: QUEtiapine 50 MG TAB PO SCH (22:17)
[2017-01-19] MEDS: MAGNESIUM SULFATE-D5W PMX 1 GM in DEXTROSE/WATER 1 100ML.BAG IVPB SCH (23:25)
[2017-01-20] MEDS: MAGNESIUM SULFATE-D5W PMX 1 GM in DEXTROSE/WATER 1 100ML.BAG IVPB SCH (00:30)
[2017-01-20 07:41] VITALS: BP 108/66; RESP 18
[2017-01-20 08:21] LABS: ALT 29 U/L (21-72); AST 19 U/L (17-59); Alkaline Phosphatase 85 U/L (38-126); Anion Gap 9 mmol/L; Blood Urea Nitrogen 9 mg/dL (9-20); Calcium 8.2 mg/dL (8.4-10.2); Carbon Dioxide 21 mmol/L (22-30); Chloride 106 mmol/L (98-107); Glucose 97 mg/dL (74-99); Magnesium 1.6 mg/dL (1.6-2.3); Non-African American GFR(MDRD) >60 (>60 ml/min/1.73 sqM); Potassium 3.5 mmol/L (3.5-5.1); Sodium 136 mmol/L (137-145); Total Bilirubin 0.5 mg/dL (0.2-1.3)
[2017-01-20 08:39] VITALS: TEMP 97.7
--- NOTE | 2017-01-20 08:48 | P.PN ---
Subjective Principal diagnosis: Alcohol withdrawal, Right shoulder pain This is a 56-year-old male admitted for alcohol withdrawal. Orthopedics is consulted for complaints of right shoulder pain. Today patient states his right shoulder pain has improved and he has improved range of motion to the right upper extremity. Patient denies any new symptoms today and denies any numbness, weakness or tingling. Objective - Vital Signs Vital signs: Vital Signs Temp 97.7 F 01/20/17 08:38 Pulse 95 01/20/17 07:00 Resp 18 01/20/17 07:00 BP 108/66 01/20/17 07:00 Pulse Ox 90 L 01/20/17 07:00 Intake & Output 01/19/17 01/20/17 01/20/17 18:59 06:59 18:59 Intake Total 720 590 Balance 720 590 Weight 70.6 kg Intake: Oral 720 590 Other: Voiding Method Bedside Commode Bedside Commode Urinal Urinal Diaper Diaper Incontinent # Voids 2 - Exam On exam there is chronic deformity of the right shoulder at the acromioclavicular joint. Patient has improved range of motion with less pain today. No swelling, erythema or ecchymosis. Patient has full range of motion of the elbow, wrist, hand and fingers. Neurovascular status is intact. - Labs CBC & Chem 7: 01/19/17 07:33 01/20/17 07:25 Labs: Abnormal Lab Results - Last 24 Hours (Table) 01/20/17 Range/Units 07:25 Sodium 136 L (137-145) mmol/L Carbon Dioxide 21 L (22-30) mmol/L Creatinine 0.63 L (0.66-1.25) mg/dL Calcium 8.2 L (8.4-10.2) mg/dL Total Protein 5.0 L (6.3-8.2) g/dL Albumin 2.4 L (3.5-5.0) g/dL Assessment and Plan (1) Chronic right shoulder pain Status: Acute (2) Acute pain of right shoulder Status: Acute Plan: #1. Continue pain control. #2. Ice or heat to the right upper extremity. #3. No surgical intervention planned at this time. #4. Patient may follow up as an outpatient as needed.
[2017-01-20] MEDS: IPRATROPIUM-ALBUTEROL 3 ML NEB INHALATION SCH (09:09)
[2017-01-20 09:21] VITALS: PULSE 98
--- NOTE | 2017-01-20 09:49 | P.PN ---
Subjective 01/18/17- Patient is being seen examined and evaluated today during rounds. He continues to be monitored for alcohol withdrawal and impending DTs. Currently family at bedside. The patient has less tremors and less anxiousness today. Currently the patient is resting up in bed on room air denies any cough congestion or shortness of breath. He is hemodynamically stable. He continues on CIWA protocol as well as electrolyte replacement protocols. The patient continues to gradually improve slowly. Currently the patient is being worked up to go to rehab facility upon discharge. 01/19/17- patient has been seen examined and evaluated today during rounds on the fifth floor. She continues to be on CIWA protocol. His alcohol withdrawal assessment per CIWA scale have been low. Between 0 and 3. Upon examination the patient's resting up in bed on room air, does state he does have some shortness of breath with exertion, however denies any cough or congestion at this time. Patient did have a chest x-ray on 01/18/2017 which did show a new interstitial infiltrate and atelectasis of the left lung compared to last exam, normal heart, and no heart failure present. Patient was started on breathing treatments. Of note patient did have some pain and guarding to his right arm which medical had ordered a stat x-ray, x-ray findings consistent with a chronic right acromioclavicular separation, patient states he did not have this before, the pain is new. Patient denies any recent falls or injuries to the area. Ortho has been consult it. 01/20/17- patient is being seen examined and evaluated today during rounds. Patient has continued to have a 0-1, CIWA scale. He has not required any Ativan or when necessary medications, in over 24 hours for any withdrawal symptoms. Upon examination the patient is resting up in bed on room air, continues to have some shortness of breath with exertion however this as improved from yesterday. Denies any cough or congestion. Patient is being set up to go to a rehab facility upon discharge. He is afebrile, no overnight events. No further complaints. Objective - Vital Signs Vital signs: Vital Signs Temp 97.7 F 01/20/17 08:38 Pulse 98 01/20/17 09:20 Resp 18 01/20/17 09:09 BP 108/66 01/20/17 07:00 Pulse Ox 90 L 01/20/17 07:00 Intake & Output 01/19/17 01/20/17 01/20/17 18:59 06:59 18:59 Intake Total 720 590 Balance 720 590 Weight 70.6 kg Intake: Oral 720 590 Other: Voiding Method Bedside Commode Bedside Commode Urinal Urinal Diaper Diaper Incontinent # Voids 2 - Exam GENERAL EXAM: Alert, active, comfortable in no apparent distress. HEAD: Normocephalic. EYES: Normal reaction of pupils, equal size. NOSE: Clear with pink turbinates. THROAT: No erythema or exudates. NECK: No masses, no JVD. CHEST: No chest wall deformity. LUNGS: Equal air entry with no crackles, wheeze, rhonchi or dullness. Bases diminished CVS: S1 and S2 normal with no audible mumurs, regular rhythm. ABDOMEN: No hepatosplenomegaly, normal bowel sounds, no guarding or rigidity. EXTREMITIES: No edema noted, pedal pulses palpable. SKIN: No rashes CENTRAL NERVOUS SYSTEM: No focal deficits, tone is normal in all 4 extremities. Some faint generalized tremors noted - Labs CBC & Chem 7: 01/19/17 07:33 01/20/17 07:25 Labs: Abnormal Lab Results - Last 24 Hours (Table) 01/20/17 Range/Units 07:25 Sodium 136 L (137-145) mmol/L Carbon Dioxide 21 L (22-30) mmol/L Creatinine 0.63 L (0.66-1.25) mg/dL Calcium 8.2 L (8.4-10.2) mg/dL Total Protein 5.0 L (6.3-8.2) g/dL Albumin 2.4 L (3.5-5.0) g/dL Assessment and Plan Plan: Assessment Alcohol dependence with alcohol withdrawals, maintained on CIWA protocol for impending DTs Hypokalemia Hypomagnesemia Acute alcoholic hepatitis History of seizures with alcohol withdrawal Thrombocytopenia Plan Patient could be cleared from a pulmonary/critical care standpoint for discharge to a rehabilitation facility. Plans are to go to [facility] today. Ortho has been consulted. Medications have been reviewed and will be continued as ordered. Continue with pulmonary hygiene, coughing and deep breathing exercises, and supportive care. Supplemental oxygen to maintain oxygen saturations of 92% or better. Continue nebulizer treatments. GI and DVT prophylaxis. Increase activity and ambulation as tolerated. We will continue to monitor labs/results and adjust treatment as necessary. Further recommendations pending. I performed an examination of the patient and discussed their management with the nurse practitioner. I have reviewed the nurse practitioner's note and agree with the documented findings and plan of care.
[2017-01-20] MEDS: PANTOPRAZOLE 40 MG TABLET PO SCH (09:56)
[2017-01-20] MEDS: FOLIC ACID 1 MG TAB PO SCH (09:56)
[2017-01-20] MEDS: cloNIDine HCL 0.1 MG TAB PO SCH (09:56)
[2017-01-20] MEDS: MULTIVITAMINS, THERA 1 EACH TAB PO SCH (09:56)
[2017-01-20] MEDS: THIAMINE 100 MG TAB PO SCH (09:56)
[2017-01-20] MEDS: HYDROcodone/APAP 5-325MG 1 EACH TAB PO PRN ×2 (10:00→14:50)
--- NOTE | 2017-01-20 13:29 | P.DS ---
Providers Date of admission: 01/11/17 13:21 Expected date of discharge: 01/20/17 Attending physician: Benita Holland Consults: 01/11/17 16:01 Consult Physician Routine Consulting Provider: Rowdy Roberts Consult Reason/Comments: ICU managment Do you want consulting provider notified?: Yes 01/14/17 15:48 Consult Physician Routine Consulting Provider: Ricco Clinton Consult Reason/Comments: Etoh abuse, aggressive behavior Do you want consulting provider notified?: Yes 01/19/17 08:58 Consult Physician Routine Consulting Provider: Warren Mathew Consult Reason/Comments: Right Collar Bone Fracture Do you want consulting provider notified?: Already Contacted Primary care physician: Claudette Edward [facility]ds Hospital Course: Diagnoses on discharge: 1. Alcoholism with alcohol withdrawal: Patient is out of the ICU. Continue the CIWA protocol with Ativan when necessary. Continue thiamine, multivitamin and folic acid. Place patient on seizure precautions. Psychiatry consult appreciated. They will reevaluate patient today 2. Hypokalemia: Give K Dur 40 mEq 1. Repeat labs in a.m. 3. Hypomagnesemia: Give magnesium sulfate 2 g 1. Repeat labs in a.m. 4. Acute Alcoholic hepatitis: Liver enzymes have shown improvement 5. Previous history of seizure from alcohol withdrawal 6. Thrombocytopenia secondary to patient's alcoholism. Repeat labs in a.m. 7. Right elbow and shoulder pain. Multiple X-ray shows no evidence of fracture. Keep elbow elevated apply ice. We'll order [place] 5/325 one every 6 hours as needed for pain. Patient evaluated by orthopedic surgery, no recommendation for any intervention at this time. Hospital course: This is a 56-year-old male, patient of Dr. Edward. He has a known past medical history of alcoholism, previous hospitalization for alcohol withdrawal and DTs, seizure from alcohol withdrawal, hypertension, anxiety and depression. Patient reports that he had one glass of wine this morning. Some days he drinks heavier than others. His alcohol level on admission was less then 10. However patient is having active DTs. Hands are tremoring. He was slightly tachycardic with a heart rate of 103. EKG shows a normal sinus rhythm with a prolonged QT interval 414/517 ms. Patient initially admitted to the fifth floor. We'll transfer him up to the sixth floor with telemetry monitoring. Patient denies any fever or chills or sweats. He does admit to vomiting and having 1 looser stool. Does admit to having right upper quadrant abdominal pain. Denies any chest pain or shortness of breath. Denies any burning with urination. 01/14/2017 patient still having some tremors. He was able to be transferred out of the ICU yesterday. He had episode of being combative through the night. He has been receiving IV antibiotics and. Any a sitter at bedside. Patient does have some slurring of his words but he did receive Ativan this morning. He denies any chest pain shortness of breath. Denies any nausea or vomiting. reports improvement in his abdominal pain. 01/15/2017 patient is more awake and alert today. He is complaining of right elbow pain. Apparently he fell before he came in. X-ray of the elbow completed showing no evidence of fracture. Awaiting psychiatry and social work evaluation. Potassium and magnesium being replaced today. Patient has no other complaints. He is eating and drinking appropriately fluids will be hep- locked 01/18/2017 patient complaining of some back pain. He just received [place]. Lying in bed comfortably. No distress. Denies any chest pain shortness breath. Denies any nausea or vomiting. Denies any bowel movement changes or urinary symptoms. 01/19/2017 Patient alert more oriented, seen by nidhi, no intervention recommended at this time. on 01/20/2017 patient improving continue current management transfer to [facility] for rehab today. Plan - Discharge Summary New Discharge Prescriptions: New clonazePAM [KlonoPIN] 0.5 mg PO Q4HR PRN #100 tablet PRN Reason: Agitation Folic Acid 1 mg PO DAILY@1200 tab HYDROcodone/APAP 5-325MG [L[place] 5-325] 1 each PO Q6HR PRN tab PRN Reason: Moderate Pain Ipratropium-Albuterol Nebulize [Duoneb 0.5 mg-3 mg/3 ml Soln] 3 ml INHALATION RT-TID neb Multivitamins, Thera [Multivitamin (formulary)] 1 each PO DAILY@1200 tab Pantoprazole [Protonix] 40 mg PO AC-BRKFST tab Thiamine [Vitamin B-1] 100 mg PO BID@1200,1700 tab Continue cloNIDine HCL [Catapres] 0.1 mg PO BID #6 tab Naltrexone HCl [Revia] 50 mg PO DAILY QUEtiapine [SEROquel] 100 mg PO HS Discontinued Ondansetron Odt [Zofran ODT] 4 mg PO Q8HR PRN #20 tab PRN Reason: Nausea Discharge Medication List cloNIDine HCL [Catapres] 0.1 mg PO BID #6 tab 10/27/16 [Rx] Naltrexone HCl [Revia] 50 mg PO DAILY 01/11/17 [History] QUEtiapine [SEROquel] 100 mg PO HS 01/11/17 [History] Folic Acid 1 mg PO DAILY@1200 tab 01/20/17 [Rx] HYDROcodone/APAP 5-325MG [[place] 5-325] 1 each PO Q6HR PRN tab 01/20/17 [Rx] Ipratropium-Albuterol Nebulize [Duoneb 0.5 mg-3 mg/3 ml Soln] 3 ml INHALATION RT -TID neb 01/20/17 [Rx] Multivitamins, Thera [Multivitamin (formulary)] 1 each PO DAILY@1200 tab [Rx] Pantoprazole [Protonix] 40 mg PO AC-BRKFST tab 01/20/17 [Rx] Thiamine [Vitamin B-1] 100 mg PO BID@1200,1700 tab 01/20/17 [Rx] clonazePAM [KlonoPIN] 0.5 mg PO Q4HR PRN #100 tablet 01/20/17 [Rx] Follow up Appointment(s)/Referral(s): Claudette Edward DO [Primary Care Provider] - 1-2 days Rowdy Roberts MD [STAFF PHYSICIAN] - 1 Week Bassem Traylor DO [Doctor of Osteopathic Medicine] - As Needed
== END 2017-01-20 16:50 | DRG 897 ==
LOC: EC 11:31 → 5MS5E 13:21 → 6ICU 16:20 → 5MS5E 01-12 10:57
PROVIDERS: ADMIT Internal Medicine; ATTEND Internal Medicine
DX: F10.231 Alcohol dependence with withdrawal delirium (principal); D69.59 Other secondary thrombocytopenia; K70.10 Alcoholic hepatitis without ascites; J98.11 Atelectasis; E83.42 Hypomagnesemia; E87.6 Hypokalemia; K21.9 Gastro-esophageal reflux disease without esophagitis; I10 Essential (primary) hypertension; F32.9 Major depressive disorder, single episode, unspecified; F41.9 Anxiety disorder, unspecified; G40.909 Epilepsy, unspecified, not intractable, without status epilepticus; G89.29 Other chronic pain; M24.411 Recurrent dislocation, right shoulder; M25.521 Pain in right elbow; M19.91 Primary osteoarthritis, unspecified site; K57.90 Diverticulosis of intestine, part unspecified, without perforation or abscess without bleeding; Z79.899 Other long term (current) drug therapy; Z96.653 Presence of artificial knee joint, bilateral; Z90.49 Acquired absence of other specified parts of digestive tract; Z87.891 Personal history of nicotine dependence; Z88.5 Allergy status to narcotic agent; W19.XXXA Unspecified fall, initial encounter; Y90.0 Blood alcohol level of less than 20 mg/100 ml; Y92.009 Unspecified place in unspecified non-institutional (private) residence as the place of occurrence of the external cause
CPT/HCPCS: 36415; 71010; 80048; 80051; 80053; 80320; 83690; 83735; 84100; 84132; 85025; 93005; 94640; 96361; 96365; 96372; 96375; 99285

== ENCOUNTER → 2017-06-29 | Outpatient (CLI) | payer MEDICARE ==
--- NOTE | 2017-06-29 11:56 | ECHOF ---
Referral Reason:R06.0 Edema of lower extremity, J44.9 MEASUREMENTS -------- HEIGHT: 172.7 cm WEIGHT: 77.1 kg BP: RVIDd: 3.2 cm (< 3.3) IVSd: 1.1 cm (0.6 - 1.1) LVIDd: 4.2 cm (3.9 - 5.3) LVPWd: 1.1 cm (0.6 - 1.1) IVSs: 1.2 cm LVIDs: 3.1 cm LVPWs: 1.2 cm Ao Diam: 3.5 cm (2.0 - 3.7) AV Cusp: 1.6 cm (1.5 - 2.6) LA Diam: 3.5 cm (2.7 - 3.8) MV EXCURSION: 13.883 mm (> 18.000) MV EF SLOPE: 104 mm/s (70 - 150) EPSS: 0.5 cm MV E Ej: 0.49 m/s MV DecT: 140 ms MV A Ej: 0.72 m/s MV E/A Ratio: 0.68 RAP: 5.00 mmHg RVSP: 28.25 mmHg FINDINGS -------- Sinus rhythm. This was a technically adequate study. The left ventricular size is normal. Left ventricular wall thickness is normal. Overall left vent ricular systolic function is normal with, an EF between 55 - 60 %. The right ventricle is normal in size and function. The left atrium is normal in size. The right atrium is normal in size. The aortic valve is trileaflet, and appears structurally normal. No aortic stenosis or regurgitation. The mitral valve is normal. Trace tricuspid regurgitation present. The right ventricular systolic pressure, as measured by Dopp ler, is 28.25mmHg. Trace/mild (physiologic) pulmonic regurgitation. There is no pericardial effusion. CONCLUSIONS -------- 1. Sinus rhythm. 2. This was a technically adequate study. 3. The left ventricular size is normal. 4. Left ventricular wall thickness is normal. 5. Overall left ventricular systolic function is normal with, an EF between 55 - 60 %. 6. The left atrium is normal in size. 7. The aortic valve is trileaflet, and appears structurally normal. No aortic stenosis or regurgitati on. 8. The mitral valve is normal. 9. Trace tricuspid regurgitation present. 10. The right ventricular systolic pressure, as measured by Doppler, is 28.25mmHg. 11. Trace/mild (physiologic) pulmonic regurgitation. 12. There is no pericardial effusion. PATROL MOTHER: Angie العلي RDCS
== END | disposition home or self-care (01) ==
LOC: RADECHMAIN 11:17
PROVIDERS: ATTEND Internal Medicine Critical Care Medicine
DX: R60.0 Localized edema (principal)
CPT/HCPCS: 93306

== ENCOUNTER → 2017-06-30 | Outpatient (CLI) | payer MEDICARE ==
--- NOTE | 2017-07-01 09:06 | US ---
EXAMINATION TYPE: US chest DATE OF EXAM: 06/30/2017 COMPARISON: NONE CLINICAL HISTORY: J44.9 Chronic obstructive pulmonary disease, unspe. COPD EXAM MEASUREMENTS: Right side NOT MARKED for possible thoracentesis outside the dept. Left side NOT MARKED for possible thoracentesis outside the dept. Pulmonologists are able to review the images in the patient?s EMR. IMPRESSIONS: No sizable pleural effusion
== END | disposition home or self-care (01) ==
LOC: RADUSMAIN 15:48
PROVIDERS: ATTEND Internal Medicine Critical Care Medicine
DX: J44.9 Chronic obstructive pulmonary disease, unspecified (principal)
CPT/HCPCS: 76604

== ENCOUNTER 2017-09-26 03:48 | Inpatient (IN) | payer MEDICARE, OTHER ==
[2017-09-26] MEDS ORDERED: THIAMINE 100 MG/ML 2 ML VIAL IM STA ×2 (04:02→05:32)
[2017-09-26] MEDS ORDERED: LORazepam 2 MG/ML INJ IV STA ×3 (04:02→06:39)
[2017-09-26] MEDS ORDERED: SODIUM CHLORIDE 0.9% 1,000 ML IV STA (04:02)
[2017-09-26 04:24] LABS: Anisocytosis Slight; Basophils # (A) 0.1 k/uL (0-0.2); Basophils % (A) 1 %; Eosinophils # (A) 0.1 k/uL (0-0.7); Eosinophils % (A) 1 %; HCT 46.8 % (39.0-53.0); HGB 16.2 gm/dL (13.0-17.5); Lymphocytes % (A) 4 %; MCH 32.3 pg (25.0-35.0); MCHC 34.6 g/dL (31.0-37.0); MCV 93.4 fL (80.0-100.0); Mean Platelet Volume 6.7; Monocytes # (A) 0.8 k/uL (0-1.0); Monocytes % (A) 4 %; Neutrophils # (A) 19.1 k/uL (1.3-7.7); Neutrophils % (A) 90 %; Platelet Count 225 k/uL (150-450); RBC 5.01 m/uL (4.30-5.90); RDW 16.7 % (11.5-15.5); WBC 21.4 k/uL (3.8-10.6)
[2017-09-26] MEDS ORDERED: IPRATROPIUM-ALBUTEROL 3 ML NEB INHALATION STA (04:30)
[2017-09-26 04:34] LABS: ALT 35 U/L (21-72); AST 70 U/L (17-59); Albumin 4.4 g/dL (3.5-5.0); Alcohol 58 mg/dL; Alkaline Phosphatase 141 U/L (38-126); Amylase 76 U/L (30-110); Anion Gap 28 mmol/L; Blood Urea Nitrogen 14 mg/dL (9-20); Calcium 9.4 mg/dL (8.4-10.2); Carbon Dioxide 30 mmol/L (22-30); Chloride 88 mmol/L (98-107); Glucose 114 mg/dL (74-99); Lipase 131 U/L (23-300); Magnesium 1.1 mg/dL (1.6-2.3); Potassium 3.5 mmol/L (3.5-5.1); Sodium 146 mmol/L (137-145); Total Bilirubin 1.8 mg/dL (0.2-1.3); Total Protein 7.5 g/dL (6.3-8.2)
[2017-09-26] MEDS ORDERED: methylPREDNISolone SOD SUCCI 125 MG/2 ML VIAL IV STA (04:56)
[2017-09-26] MEDS ORDERED: MAGNESIUM SULFATE-D5W PMX 1 GM in DEXTROSE/WATER 1 100ML.BAG IVPB ONE (04:57)
--- NOTE | 2017-09-26 05:11 | ED ---
Alcohol HPI - General Chief Complaint: Nausea/Vomiting/Diarrhea Stated Complaint: ETOH Withdrawl/Nausea/Vomiting Time Seen by Provider: 09/26/17 03:51 Source: patient Mode of arrival: EMS Limitations: no limitations - History of Present Illness Initial Comments: This patient is a 57-year-old man who presents with complaint that he believes is withdrawing from alcohol. Patient states that he is been drinking approximately a fifth of alcohol per day for as long as she can remember. The patient states that he stopped drinking about 12 hours ago, now he states that he is feeling very shaky and that he is having persistent nausea and vomiting. He has noted some coffee-ground emesis. Patient denies history of varices. MD Complaint: alcohol withdrawal -: hour(s) Previous Visits for Alcohol Intoxication?: Yes Recent Trauma: No Associated Symptoms: nausea, vomiting Treatments Prior to Arrival: none Chronic Alcohol Use: Yes - Related Data Home Medications Medication Instructions Recorded Confirmed Budesonide/Formoterol Fumarate 2 puff INHALATION RT-BID 09/26/17 09/26/17 [Symbicort 160-4.5 Mcg Inhaler] Furosemide [Lasix] 40 mg PO DAILY 09/26/17 09/26/17 QUEtiapine FUMARATE [SEROquel] 300 mg PO HS 09/26/17 09/26/17 QUEtiapine [SEROquel] 100 mg PO HS 09/26/17 09/26/17 Allergies Allergy/AdvReac Type Severity Reaction Status Date / Time tramadol AdvReac Mild Itching Verified 09/26/17 11:42 Review of Systems ROS Statement: Those systems with pertinent positive or pertinent negative responses have been documented in the HPI. ROS Other: All systems not noted in ROS Statement are negative. Constitutional: Denies: fever, chills Eyes: Denies: vision change Respiratory: Reports: cough, wheezes. Denies: dyspnea, hemoptysis Cardiovascular: Reports: palpitations. Denies: chest pain, edema, syncope Gastrointestinal: Reports: nausea, vomiting. Denies: abdominal pain, diarrhea Genitourinary: Denies: hematuria Musculoskeletal: Denies: back pain Skin: Denies: rash Neurological: Denies: headache, weakness, numbness Psychiatric: Reports: anxiety Hematological/Lymphatic: Denies: easy bleeding Past Medical History Past Medical History: GERD/Reflux, Osteoarthritis (OA), Seizure Disorder, Syncope Additional Past Medical History / Comment(s): 1 SEIZURE APPROX 2010, alcoholism , alcohol withdrawal syndrome, delirium tremors, past acute psychosis, DJD, diverticular disease, SBO 2ndary to incarcerated R inguinal hernia. History of Any Multi-Drug Resistant Organisms: None Reported Past Surgical History: Appendectomy, Heart Catheterization, Hernia Repair, Joint Replacement, Orthopedic Surgery, Tonsillectomy Additional Past Surgical History / Comment(s): Colonoscopies and polypectomies, 10/21/15 normal cardiac cath, multiple inguinal hernia surg., bilateral knee arthroscopies and pt states bilateral knee arthroplasties. Past Anesthesia/Blood Transfusion Reactions: No Reported Reaction Past Psychological History: Anxiety, Depression Smoking Status: Current every day smoker Past Alcohol Use History: Abuse, Daily, Heavy Past Drug Use History: Cocaine - Past Family History Father Family Medical History: Coronary Artery Disease (CAD), Myocardial Infarction (IN ) Additional Family Medical History / Comment(s): Father of a IN at the age of 73 yrs. Mother Family Medical History: Cancer Additional Family Medical History / Comment(s): Mother had breast cancer. She is 81 yrs old and now healthy. General Exam Limitations: no limitations General appearance: alert, anxious, other (Tremulous) Head exam: Present: atraumatic, normocephalic Eye exam: Present: normal appearance. Absent: scleral icterus, conjunctival injection ENT exam: Present: mucous membranes dry Neck exam: Present: normal inspection Respiratory exam: Present: wheezes, rhonchi. Absent: rales, stridor, chest wall tenderness, accessory muscle use, decreased breath sounds, prolonged expiratory Cardiovascular Exam: Present: normal rhythm, tachycardia, normal heart sounds. Absent: systolic murmur, diastolic murmur, rubs, gallop GI/Abdominal exam: Present: soft. Absent: distended, tenderness, guarding, rebound, rigid, organomegaly, mass, pulsatile mass Extremities exam: Present: normal inspection, normal capillary refill. Absent: pedal edema, calf tenderness Back exam: Present: normal inspection. Absent: CVA tenderness (R), CVA tenderness (L) Neurological exam: Present: alert Psychiatric exam: Present: anxious. Absent: homicidal ideation, suicidal ideation Skin exam: Present: warm, dry, intact, normal color. Absent: rash Course Vital Signs 09/26/17 09/26/17 09/26/17 03:51 04:32 04:51 Temperature 97.9 F Pulse Rate 131 H 127 H 124 H Pulse Rate [ Site Safety Representative ] Respiratory 22 22 20 Rate Blood Pressure 140/96 162/93 Blood Pressure [Left Arm] O2 Sat by Pulse 91 L 96 Oximetry 09/26/17 09/26/17 09/26/17 04:58 05:11 05:40 Temperature Pulse Rate 126 H 133 H Pulse Rate [ Site Safety Representative ] Respiratory 20 24 22 Rate Blood Pressure 141/89 Blood Pressure [Left Arm] O2 Sat by Pulse 97 Oximetry 09/26/17 09/26/17 09/26/17 06:14 06:33 06:50 Temperature 97.6 F Pulse Rate 128 H 130 H 128 H Pulse Rate [ Site Safety Representative ] Respiratory 22 16 20 Rate Blood Pressure 156/97 178/108 154/97 Blood Pressure [Left Arm] O2 Sat by Pulse 98 97 94 L Oximetry 09/26/17 09/26/17 09/26/17 07:07 07:29 07:53 Temperature Pulse Rate 129 H 123 H 120 H Pulse Rate [ Site Safety Representative ] Respiratory 20 18 14 Rate Blood Pressure 165/100 148/92 126/85 Blood Pressure [Left Arm] O2 Sat by Pulse 98 98 Oximetry 09/26/17 09/26/17 09/26/17 08:18 08:26 08:39 Temperature 98.2 F Pulse Rate 115 H 114 H Pulse Rate [ 91 Site Safety Representative ] Respiratory 20 14 16 Rate Blood Pressure 115/84 112/82 Blood Pressure 95/72 [Left Arm] O2 Sat by Pulse 99 98 98 Oximetry 09/26/17 09/26/17 09:24 09:46 Temperature 98.0 F Pulse Rate 101 H 96 Pulse Rate [ Site Safety Representative ] Respiratory 14 Rate Blood Pressure 110/78 Blood Pressure [Left Arm] O2 Sat by Pulse 99 Oximetry Procedures - Intubation Time Out Performed: Yes Sedative: Etomidate Paralytic: Succinylcholine Laryngoscope: You Size: 3 ET Tube Size: 6.5 ET Tube Uncuffed: No Tube Secured Depth (cm): 24 Tube Secured Location: teeth Tube Placement Confirmation: equal breath sounds bilaterally, no breath sounds over epigastrium, confirmation by capnometry Intubation Complications: difficult intubation Medical Decision Making - Medical Decision Making This patient's 57-year-old man who presents with alcohol withdrawal as chief complaint. Over his course in emergency department, the patient's room air sats would decrease into the upper 80s, and he seemed to be developing some stridorous air sounds. In addition the patient was being given increasing doses of Ativan for the withdrawal symptoms and there were concerns about airway protection. After discussion with the patient he does give verbal consent for intubation. I did initially make an attempt to intubate the patient with a standard sized tube at 8.5, however under direct learned endoscopy and then subsequently with the glide scope, there does appear to be some moderate edema of the epiglottis. The patient did recover from the initial dose of etomidate and succinylcholine, while preparations were made for management of difficult intubation. The second attempt at intubation with 6.5 endotracheal tube is performed, without complication, successfully via direct laryngoscopy, and this is documented in the procedure note. Case is discussed with the admitting physician, Dr. Malik, as the patient does not have a primary physician. Case discussed with Dr. Peterson, will be the wild life photographer on-call today. The orogastric tube is placed and does show coffee-ground emesis, no bright red blood, total of 500 mls is obtained. Consult for gastroenterology is obtained. - Lab Data Result diagrams: 09/26/17 16:54 09/26/17 16:54 Lab Results 09/26/17 09/26/17 Range/Units 04:05 04:05 WBC 21.4 H (3.8-10.6) k/uL RBC 5.01 (4.30-5.90) m/uL Hgb 16.2 (13.0-17.5) gm/dL Hct 46.8 (39.0-53.0) % MCV 93.4 (80.0-100.0) fL MCH 32.3 (25.0-35.0) pg MCHC 34.6 (31.0-37.0) g/dL RDW 16.7 H (11.5-15.5) % Plt Count 225 (150-450) k/uL Neutrophils % 90 % Lymphocytes % 4 % Monocytes % 4 % Eosinophils % 1 % Basophils % 1 % Neutrophils # 19.1 H (1.3-7.7) k/uL Lymphocytes # 1.0 (1.0-4.8) k/uL Monocytes # 0.8 (0-1.0) k/uL Eosinophils # 0.1 (0-0.7) k/uL Basophils # 0.1 (0-0.2) k/uL Anisocytosis Slight Sodium 146 H (137-145) mmol/L Potassium 3.5 (3.5-5.1) mmol/L Chloride 88 L (98-107) mmol/L Carbon Dioxide 30 (22-30) mmol/L Anion Gap 28 mmol/L BUN 14 (9-20) mg/dL Creatinine 0.90 (0.66-1.25) mg/dL Est GFR (CKD-EPI)AfAm >90 (>60 ml/min/1.73 sqM) Est GFR (CKD-EPI)NonAf >90 (>60 ml/min/1.73 sqM) Glucose 114 H (74-99) mg/dL Calcium 9.4 (8.4-10.2) mg/dL Magnesium 1.1 L (1.6-2.3) mg/dL Total Bilirubin 1.8 H (0.2-1.3) mg/dL AST 70 H (17-59) U/L ALT 35 (21-72) U/L Alkaline Phosphatase 141 H (38-126) U/L Total Protein 7.5 (6.3-8.2) g/dL Albumin 4.4 (3.5-5.0) g/dL Amylase 76 (30-110) U/L Lipase 131 (23-300) U/L Serum Alcohol 58 mg/dL - EKG Data -: EKG Interpreted by Mo EKG shows normal: sinus rhythm, axis (Normal), intervals (Normal), QRS complexes (Normal) Rate: tachycardia (Rate approximately 140 bpm) Interpretation: nonspecific ST-T wave changes Critical Care Time Critical Care Time: Yes (60 minutes) Disposition Clinical Impression: Hypomagnesemia, Alcohol withdrawal, Respiratory failure, GI bleeding Disposition: ADMITTED IP TO THIS HOSP Condition: Critical Is patient prescribed a controlled substance at d/c from ED?: No
--- NOTE | 2017-09-26 06:01 | XR ---
EXAM: XR Chest, 1 View CLINICAL HISTORY: ITS.REASON XR Reason: cough TECHNIQUE: Frontal view of the chest. COMPARISON: 01/18/17 FINDINGS: Lungs: Unremarkable. No consolidation. Pleural space: Unremarkable. No pneumothorax. Heart: Unremarkable. No cardiomegaly. Mediastinum: Unremarkable. Bones/joints: Unremarkable. IMPRESSION: No lobar consolidation or pulmonary edema.
[2017-09-26] MEDS: LORazepam 2 MG/ML INJ IV PRN ×5 (06:20→22:36)
[2017-09-26] MEDS: ETOMIDATE 2 MG/ML 10 ML VIAL IVP STA ×2 (06:46→07:15)
[2017-09-26] MEDS: SUCCINYLCHOLINE CHLORIDE VIAL 200 MG/10 ML VIAL IV STA ×2 (06:47→07:15)
[2017-09-26] MEDS ORDERED: MORPHINE SULFATE 4 MG/ML SYRINGE IV STA (07:20)
[2017-09-26] MEDS ORDERED: PROPOFOL 1,000 MG in EMPTY BAG 1 BAG IV ONE (07:24)
[2017-09-26] MEDS ORDERED: IPRATROPIUM-ALBUTEROL 3 ML NEB INHALATION PRN (07:26)
[2017-09-26] MEDS ORDERED: ACETAMINOPHEN SUPPOSITORY 650 MG SUPP RECTAL PRN (07:26)
[2017-09-26] MEDS ORDERED: NALOXONE 0.4 MG/ML 1 ML VIAL IV PRN ×2 (07:26→08:57)
[2017-09-26] MEDS ORDERED: SODIUM CHLORIDE 0.9% 1,000 ML IV SCH (07:30)
[2017-09-26] MEDS ORDERED: diphenhydrAMINE 50 MG/ML 1 ML VIAL IVP STA (07:35)
--- NOTE | 2017-09-26 07:35 | XR ---
EXAMINATION TYPE: XR chest 1V confirm line plcde DATE OF EXAM: 09/26/2017 HISTORY: Pain. REFERENCE: Previous study dated 09/26/2017. FINDINGS: The patient has been intubated. ET tube is in satisfactory position approximately 5 cm from the adair. The heart is enlarged. The lungs appear clear. Pleural spaces are clear. IMPRESSION: 1. SATISFACTORY ET TUBE PLACEMENT. 2. CARDIOMEGALY.
[2017-09-26] MEDS ORDERED: MAGNESIUM SULFATE-D5W PMX 1 GM in DEXTROSE/WATER 1 100ML.BAG IVPB SCH (07:45)
[2017-09-26] MEDS ORDERED: PANTOPRAZOLE 40 MG/10 ML VIAL IVP STA (07:57)
[2017-09-26 08:15] LABS: ABG Base Excess 7.4 mmol/L; ABG HCO3 33 mmol/L (21-25); ABG PCO2 59 mmHg (35-45); ABG PH 7.36 (7.35-7.45); ABG PO2 >400 mmHg (83-108); ABG TCO2 35 mmol/L (19-24)
[2017-09-26 08:26] LABS: Amorphous Sediment,Urine Rare /hpf; Appearance,Urine Clear (Clear); Bilirubin,Urine Negative (Negative); Blood,Urine Negative (Negative); Color,Urine Yellow; Glucose,Urine (UA) Negative (Negative); Hyaline Casts,Urine 12 /lpf (0-2); Ketones,Urine 2+ (Negative); Leukocyte Esterase,Urine Negative (Negative); Mucus,Urine Rare /hpf; Nitrite,Urine Negative (Negative); PH, Urine 6.5 (5.0-8.0); Protein,Urine 2+ (Negative); Specific Gravity,Urine 1.025 (1.001-1.035); Squamous Epithelial Cell,Urine <1 /hpf (0-4); WBC,Urine 3 /hpf (0-5)
[2017-09-26] MEDS ORDERED: diphenhydrAMINE 50 MG/ML 1 ML VIAL IVP SCH (09:00)
[2017-09-26] MEDS ORDERED: FAMOTIDINE 20 MG/2 ML VIAL IV SCH ×2 (09:00→21:00)
[2017-09-26] MEDS ORDERED: Potassium Replacement Protocol 1 EACH MISC MISCELLANE PRN ×2 (09:30→13:45)
[2017-09-26] MEDS ORDERED: Magnesium Replacement Protocol 1 EACH MISC MISCELLANE PRN (09:31)
[2017-09-26 09:47] LABS: Glucose,Whole Blood 135 mg/dL (75-99)
--- NOTE | 2017-09-26 10:08 | XR ---
EXAMINATION TYPE: XR chest 1V portable DATE OF EXAM: 09/26/2017 HISTORY: Tube placement. REFERENCE: Previous study from earlier today. FINDINGS: The patient is ET tube remains in place, unchanged in appearance. An NG tube has been passe d. Its tip is coiled in the stomach. The heart is mildly enlarged. Lungs appear clear. Pleural spaces are clear. IMPRESSION: SATISFACTORY NG TUBE PLACEMENT.
--- NOTE | 2017-09-26 10:11 | P.CNPUL ---
History of Present Illness Consult date: 09/26/17 Reason for consult: dyspnea, other Chief complaint: Stridor, respiratory failure History of present illness: Pulmonary consult dated 09/26/2017 57-year-old male who was seen in the emergency department with possible alcohol withdrawal. He apparently drinks about a fifth of alcohol per day. He drank last about 18 hours ago. He apparently was feeling very shaky with persistent nausea vomiting. He also was found have some coffee ground emesis. The patient was also noted to have some respiratory difficulty and also some possible stridor. It's not clear whether or not stridor began in the emergency room or preceded the ER visit. Anyway, the ER physician attempted to intubate the patient for declining respiratory status and was unable to do so. He told me on the phone that the epiglottis was swollen but not [id number]-red such as infectious epiglottitis. Anyway, he was finally able to intubate the patient cannot get standard 8 or 8 have to been but only a 6-1/2 tube. This may have been somewhat of a traumatic intubation. The patient was fluid resuscitated in the emergency room and transferred up to the ICU. Currently, the patient's on the volume assist control mode, rate is 14, tidal volume is 500, FiO2 is now 50 % previously 100% and PEEP of 5. Arterial blood gases on 100% show a PaO2 of greater than 400, a PaCO2 of 59 and a pH 7.36. The patient's currently on propofol at 35 mics per kilogram per minute and a saline IV at 150. Chest x- ray here in the ICU was without abnormality. The patient will be placed on Decadron for airway edema. The patient was also placed on DuoNeb's every 4 [id number]. Labs x-rays and other testing is ordered for the morning. Review of Systems ROS unobtainable: due to endotracheal tube (No additional review of systems could be obtained from this patient because he is currently intubated but before he was intubated, the patient was apparently apparently complaining of being shaky with nausea and vomiting.) Past Medical History Past Medical History: GERD/Reflux, Osteoarthritis (OA), Seizure Disorder, Syncope Additional Past Medical History / Comment(s): 1 SEIZURE APPROX 2010, alcoholism , alcohol withdrawal syndrome, delirium tremors, past acute psychosis, DJD, diverticular disease, SBO 2ndary to incarcerated R inguinal hernia. History of Any Multi-Drug Resistant Organisms: None Reported Past Surgical History: Appendectomy, Heart Catheterization, Hernia Repair, Joint Replacement, Orthopedic Surgery, Tonsillectomy Additional Past Surgical History / Comment(s): Colonoscopies and polypectomies, 10/21/15 normal cardiac cath, multiple inguinal hernia surg., bilateral knee arthroscopies and pt states bilateral knee arthroplasties. Past Anesthesia/Blood Transfusion Reactions: No Reported Reaction Past Psychological History: Anxiety, Depression Smoking Status: Current every day smoker Past Alcohol Use History: Abuse, Daily, Heavy Past Drug Use History: Cocaine - Past Family History Father Family Medical History: Coronary Artery Disease (CAD), Myocardial Infarction ([place] ) Additional Family Medical History / Comment(s): Father of a [place] at the age of 73 yrs. Mother Family Medical History: Cancer Additional Family Medical History / Comment(s): Mother had breast cancer. She is 81 yrs old and now healthy. Medications and Allergies Home Medications Medication Instructions Recorded Confirmed Type cloNIDine HCL [Catapres] 0.1 mg PO BID #6 tab 10/27/16 01/11/17 Rx Naltrexone HCl [Revia] 50 mg PO DAILY 01/11/17 01/11/17 History QUEtiapine [SEROquel] 100 mg PO HS 01/11/17 01/11/17 History Folic Acid 1 mg PO DAILY@1200 tab 01/20/17 Rx HYDROcodone/APAP 5-325MG [Westley 1 each PO Q6HR PRN tab 01/20/17 Rx 5-325] Ipratropium-Albuterol Nebulize 3 ml INHALATION RT-TID neb 01/20/17 Rx [Duoneb 0.5 mg-3 mg/3 ml Soln] Multivitamins, Thera [Multivitamin 1 each PO DAILY@1200 tab 01/20/17 Rx (formulary)] Pantoprazole [Protonix] 40 mg PO AC-BRKFST tab 01/20/17 Rx Thiamine [Vitamin B-1] 100 mg PO BID@1200,1700 tab 01/20/17 Rx clonazePAM [KlonoPIN] 0.5 mg PO Q4HR PRN #100 tablet 01/20/17 Rx Allergies Allergy/AdvReac Type Severity Reaction Status Date / Time tramadol AdvReac Mild Itching Verified 01/11/17 11:47 Physical Exam Osteopathic Statement: *. No significant issues noted on an osteopathic structural exam other than those noted in the History and Physical/Consult. Vitals: Vital Signs Temp Pulse Resp BP Pulse Ox 09/26/17 09:24 98.0 F 101 H 14 110/78 99 09/26/17 08:26 114 H 14 112/82 98 09/26/17 08:18 115 H 20 115/84 99 09/26/17 07:53 120 H 14 126/85 09/26/17 07:29 123 H 18 148/92 98 09/26/17 07:07 129 H 20 165/100 98 09/26/17 06:50 128 H 20 154/97 94 L 09/26/17 06:33 97.6 F 130 H 16 178/108 97 09/26/17 06:14 128 H 22 156/97 98 09/26/17 05:40 133 H 22 141/89 97 09/26/17 05:11 24 09/26/17 04:58 126 H 20 09/26/17 04:51 124 H 20 09/26/17 04:32 127 H 22 162/93 96 09/26/17 03:51 97.9 F 131 H 22 140/96 91 L Intake and Output 09/25/17 09/26/17 09/26/17 22:59 06:59 14:59 Intake Total 6.232 Balance 6.232 Intake: Intake, IV Titration 6.232 Amount Propofol 1,000 mg In 6.232 Empty Bag 1 bag @ Titrate IV .Q0M ONE Rx#: [id number] Other: Weight 77.111 kg No acute distress, sedated, oral NG tube and endotracheal tube in place.. HEENT examination is grossly unremarkable. Mucous membranes are moist. Neck supple. Full range of motion. No adenopathy thyromegaly or neck vein distention. Cardiovascular examination reveals regular rhythm rate. S1-S2 normal. No S3 or S4. No discernible murmur noted. Lungs reveal clear breath sounds. Her sounds are equal bilaterally. No adventitious lung sounds including wheezes rhonchi or crackles. Abdomen soft bowel sounds are heard. No masses or tenderness. Extremities are intact. No cyanosis clubbing or edema. Skin is without rash or lesion. Neurologic examination could not be performed. Results - Laboratory Findings CBC and BMP: 09/26/17 04:05 09/26/17 04:05 ABG ABG pH 7.36 (7.35-7.45) 09/26/17 08:11 ABG pCO2 59 mmHg (35-45) H 09/26/17 08:11 ABG pO2 >400 mmHg (83-108) H 09/26/17 08:11 ABG O2 Saturation 100.0 % (94-97) H 09/26/17 08:11 Abnormal lab findings: Abnormal Labs 09/26/17 09/26/17 09/26/17 04:05 04:05 07:37 WBC 21.4 H RDW 16.7 H Neutrophils # 19.1 H ABG pCO2 ABG pO2 ABG HCO3 ABG Total CO2 ABG O2 Saturation Sodium 146 H Chloride 88 L Glucose 114 H POC Glucose (mg/dL) Magnesium 1.1 L Total Bilirubin 1.8 H AST 70 H Alkaline Phosphatase 141 H Urine Protein 2+ H Urine Ketones 2+ H Amorphous Sediment Rare H Hyaline Casts 12 H Urine Mucus Rare H 09/26/17 09/26/17 08:11 09:45 WBC RDW Neutrophils # ABG pCO2 59 H ABG pO2 >400 H ABG HCO3 33 H ABG Total CO2 35 H ABG O2 Saturation 100.0 H Sodium Chloride Glucose POC Glucose (mg/dL) 135 H Magnesium Total Bilirubin AST Alkaline Phosphatase Urine Protein Urine Ketones Amorphous Sediment Hyaline Casts Urine Mucus - Diagnostic Findings Chest x-ray: image reviewed (Labs x-rays a medications are all reviewed.) Assessment and Plan Assessment: Assessment History of alcohol withdrawal syndrome/potential for delirium tremens. Status post intubation and mechanical ventilation, with some difficulty, for impending respiratory failure. Respiratory distress with upper airway obstruction/stridor, of unclear etiology. Possibility of ALLERGIC reaction and/or infectious epiglottitis. History of heavy alcohol abuse Possible COPD from previous tobacco use. History of seizure disorder History of DJD History of GERD History of diverticular disease Plan: Plan dated 09/26/2017 The patient's medications labs and x-rays are all reviewed. The FiO2 was dropped from 100-50%. The patient's baseline 2 mmHg. The patient will remain on propofol for now. Change the IV to half-normal saline. We'll put the patient on Decadron 6 mg every 6 hours. Additional recommendations and suggestions are forthcoming. Prognosis is guarded. We'll continue on the scene with scale. We'll provide Ativan for any signs or symptoms of alcohol withdrawal. Time with Patient: Greater than 30
[2017-09-26] MEDS ORDERED: DEXAMETHASONE SOD PHOSPHATE 4 MG/ML 1 ML VIAL IV PRN (10:12)
[2017-09-26] MEDS: CHLORHEXIDINE GLUCONATE 15 ML CUP MUCOUS MEM SCH ×2 (10:24→20:00)
[2017-09-26] MEDS: MAGNESIUM SULFATE-D5W PMX 1 GM in DEXTROSE/WATER 1 100ML.BAG IVPB SCH ×3 (10:25→12:22)
[2017-09-26] MEDS: POTASSIUM BICARBONATE/CIT AC 20 MEQ TABLET.EFF NG-TUBE SCH (10:25)
[2017-09-26] MEDS: SODIUM CHLORIDE 0.45% 1,000 ML IV SCH ×2 (10:26→17:05)
[2017-09-26 10:32] LABS: Amphetamine Screen,Urine Not Detected (NotDetected); Barbiturate Screen,Urine Not Detected (NotDetected); Benzodiazepines Screen,Urine Not Detected (NotDetected); Cocaine Screen,Urine Not Detected (NotDetected); Methadone Screen, Urine Not Detected (NotDetected); Opiate Screen,Urine Not Detected (NotDetected); Oxycodone Screen, Urine Not Detected (NotDetected); Phencyclidine Screen,Urine Not Detected (NotDetected); Tricyclic Antidepressant,Urine Not Detected (NotDetected); Urn Cannabinoid Scrn Not Detected (NotDetected)
[2017-09-26] MEDS ORDERED: methylPREDNISolone SOD SUCCI 125 MG/2 ML VIAL IV SCH (11:00)
[2017-09-26] MEDS: IPRATROPIUM-ALBUTEROL 3 ML NEB INHALATION SCH ×3 (11:48→19:59)
[2017-09-26] MEDS: AMPICILLIN-SULBACTAM 1.5 GM in SODIUM CHLORIDE 0.9% 50 ML IVPB SCH ×2 (12:20→17:07)
[2017-09-26] MEDS: PROPOFOL 1,000 MG in EMPTY BAG 1 BAG IV SCH ×2 (12:55→20:01)
[2017-09-26] MEDS: diphenhydrAMINE 50 MG/ML 1 ML VIAL IVP SCH ×2 (13:52→19:59)
[2017-09-26] MEDS ORDERED: POTASSIUM BICARBONATE/CIT AC 20 MEQ TABLET.EFF NG-TUBE SCH (14:00)
--- NOTE | 2017-09-26 14:32 | P.HPIM ---
History of Present Illness 57-year-old male who was seen in the emergency department with possible alcohol withdrawal. He apparently drinks about a fifth of alcohol per day. He drank last about 18 hours ago. He apparently was feeling very shaky with persistent nausea vomiting. He also was found have some coffee ground emesis. The patient was also noted to have some respiratory difficulty and also some possible stridor. Patient was difficult to intubate was subsequently intubated found to have a swollen epiglottis patient has been throwing up for couple days. She is presently intubated sedated on propofol 30 mcg , Decadron. Patient is on assist-control ventilation with PEEP of 5 and FiO2 of around the 40% now Review of Systems Unable to obtain due to his clinical condition. Past Medical History Past Medical History: GERD/Reflux, Osteoarthritis (OA), Seizure Disorder, Syncope Additional Past Medical History / Comment(s): 1 SEIZURE APPROX 2010, alcoholism , alcohol withdrawal syndrome, delirium tremors, past acute psychosis, DJD, diverticular disease, SBO 2ndary to incarcerated R inguinal hernia. History of Any Multi-Drug Resistant Organisms: None Reported Past Surgical History: Appendectomy, Heart Catheterization, Hernia Repair, Joint Replacement, Orthopedic Surgery, Tonsillectomy Additional Past Surgical History / Comment(s): Colonoscopies and polypectomies, 10/21/15 normal cardiac cath, multiple inguinal hernia surg., bilateral knee arthroscopies and pt states bilateral knee arthroplasties. Past Anesthesia/Blood Transfusion Reactions: No Reported Reaction Past Psychological History: Anxiety, Depression Smoking Status: Current every day smoker Past Alcohol Use History: Abuse, Daily, Heavy Past Drug Use History: Cocaine - Past Family History Father Family Medical History: Coronary Artery Disease (CAD), Myocardial Infarction ([place] ) Additional Family Medical History / Comment(s): Father of a [place] at the age of 73 yrs. Mother Family Medical History: Cancer Additional Family Medical History / Comment(s): Mother had breast cancer. She is 81 yrs old and now healthy. Medications and Allergies Home Medications Medication Instructions Recorded Confirmed Type Budesonide/Formoterol Fumarate 2 puff INHALATION RT-BID 09/26/17 09/26/17 History [Symbicort 160-4.5 Mcg Inhaler] Furosemide [Lasix] 40 mg PO DAILY 09/26/17 09/26/17 History QUEtiapine FUMARATE [SEROquel] 300 mg PO HS 09/26/17 09/26/17 History QUEtiapine [SEROquel] 100 mg PO HS 09/26/17 09/26/17 History Allergies Allergy/AdvReac Type Severity Reaction Status Date / Time tramadol AdvReac Mild Itching Verified 09/26/17 11:42 Physical Exam Vitals: Vital Signs Temp Pulse Pulse Resp BP BP Pulse Ox 09/26/17 14:00 81 16 86/69 98 09/26/17 13:50 75 15 86/69 98 09/26/17 13:40 78 16 84/65 98 09/26/17 13:30 81 15 86/64 97 09/26/17 13:20 80 15 86/64 97 09/26/17 13:10 92 15 87/65 97 09/26/17 13:00 82 16 91/66 96 09/26/17 12:50 83 16 91/66 96 09/26/17 12:40 82 16 97/74 97 09/26/17 12:30 82 13 114/88 98 09/26/17 12:20 88 19 114/88 100 09/26/17 12:11 82 09/26/17 12:10 78 14 90/67 99 09/26/17 12:00 91 14 91/67 99 09/26/17 11:50 84 14 91/67 99 09/26/17 11:40 95 14 94/68 98 09/26/17 11:30 114 H 14 93/70 98 09/26/17 11:20 96 13 93/70 98 09/26/17 11:10 92 14 95/72 98 09/26/17 11:00 95 14 91/72 98 09/26/17 10:50 97 14 91/72 97 09/26/17 10:40 97 14 93/75 97 09/26/17 10:30 99 14 96/73 97 09/26/17 10:20 102 H 16 98/75 97 09/26/17 10:10 102 H 15 139/81 97 09/26/17 10:00 103 H 16 118/84 96 09/26/17 09:50 98.2 F 101 H 24 118/84 99 09/26/17 09:46 96 09/26/17 09:24 98.0 F 101 H 14 110/78 99 09/26/17 08:39 98.2 F 91 16 95/72 98 09/26/17 08:26 114 H 14 112/82 98 09/26/17 08:18 115 H 20 115/84 99 09/26/17 07:53 120 H 14 126/85 09/26/17 07:29 123 H 18 148/92 98 09/26/17 07:07 129 H 20 165/100 98 09/26/17 06:50 128 H 20 154/97 94 L 09/26/17 06:33 97.6 F 130 H 16 178/108 97 09/26/17 06:14 128 H 22 156/97 98 09/26/17 05:40 133 H 22 141/89 97 09/26/17 05:11 24 09/26/17 04:58 126 H 20 09/26/17 04:51 124 H 20 09/26/17 04:32 127 H 22 162/93 96 09/26/17 03:51 97.9 F 131 H 22 140/96 91 L Intake and Output 09/25/17 09/26/17 09/26/17 22:59 06:59 14:59 Intake Total 1756.232 Output Total 335 Balance 1421.232 Intake: IV 1750 0.9 1000 Propofol 1,000 mg In 150 Empty Bag 1 bag @ Titrate IV .Q0M ON LICENSE OF [facility] Rx#: [id number] Sodium Chloride 0.45% 1, 600 000 ml @ 150 mls/hr IV . Q6H40M ON LICENSE OF [facility] Rx#:[id number] Intake, IV Titration 6.232 Amount Propofol 1,000 mg In 6.232 Empty Bag 1 bag @ Titrate IV .Q0M [facility] Rx#: [id number] Output: Urine 335 Other: Voiding Method Indwelling Catheter Weight 77.111 kg 73.8 kg PHYSICAL EXAMINATION: GENERAL: Patient is intubated sedated on RASS score of around -2 HBEENT: Normocephalic, atraumatic. No pharyngeal erythema. No thyromegaly. CARDIOVASCULAR: S1 and S2 present. No murmurs, rubs, or gallops. PULMONARY: Chest is clear to auscultation, no wheezing or crackles. ABDOMEN: Soft, nontender, nondistended, normoactive bowel sounds. No palpable organomegaly. MUSCULOSKELETAL: No joint swelling or deformity. EXTREMITIES: No cyanosis, clubbing, or pedal edema. NEUROLOGICAL: Unable to assess at this time SKIN: No rashes. Results CBC & Chem 7: 09/26/17 04:05 09/26/17 13:07 Labs: Abnormal Lab Results - Last 24 Hours (Table) 09/26/17 09/26/17 09/26/17 Range/Units 04:05 04:05 07:37 WBC 21.4 H (3.8-10.6) k/uL RDW 16.7 H (11.5-15.5) % Neutrophils # 19.1 H (1.3-7.7) k/uL ABG pCO2 (35-45) mmHg ABG pO2 (83-108) mmHg ABG HCO3 (21-25) mmol/L ABG Total CO2 (19-24) mmol/L ABG O2 Saturation (94-97) % Sodium 146 H (137-145) mmol/L Chloride 88 L (98-107) mmol/L Glucose 114 H (74-99) mg/dL POC Glucose (mg/dL) (75-99) mg/dL Magnesium 1.1 L (1.6-2.3) mg/dL Total Bilirubin 1.8 H (0.2-1.3) mg/dL AST 70 H (17-59) U/L Alkaline Phosphatase 141 H (38-126) U/L Urine Protein 2+ H (Negative) Urine Ketones 2+ H (Negative) Amorphous Sediment Rare H (None) /hpf Hyaline Casts 12 H (0-2) /lpf Urine Mucus Rare H (None) /hpf 09/26/17 09/26/17 Range/Units 08:11 09:45 WBC (3.8-10.6) k/uL RDW (11.5-15.5) % Neutrophils # (1.3-7.7) k/uL ABG pCO2 59 H (35-45) mmHg ABG pO2 >400 H (83-108) mmHg ABG HCO3 33 H (21-25) mmol/L ABG Total CO2 35 H (19-24) mmol/L ABG O2 Saturation 100.0 H (94-97) % Sodium (137-145) mmol/L Chloride (98-107) mmol/L Glucose (74-99) mg/dL POC Glucose (mg/dL) 135 H (75-99) mg/dL Magnesium (1.6-2.3) mg/dL Total Bilirubin (0.2-1.3) mg/dL AST (17-59) U/L Alkaline Phosphatase (38-126) U/L Urine Protein (Negative) Urine Ketones (Negative) Amorphous Sediment (None) /hpf Hyaline Casts (0-2) /lpf Urine Mucus (None) /hpf Microbiology - Last 24 Hours (Table) 09/26/17 07:00 Sputum Culture - Preliminary Sputum Assessment and Plan Plan: -Acute or respiratory failure, ventilator dependent presently secondary to epiglottitis either infectious or secondary to gastric acid related inflammation. Alcohol withdrawal may be contributing to his respiratory failure -Alcohol abuse and possibility of alcohol withdrawal: Patient is presently on propofol will also use as needed Ativan -Epiglottitis either infectious or inflammatory from nausea vomiting, patient was started on Unasyn, Decadron. -Possible alcoholic gastritis: Patient is on Protonix to be continued -Alcohol withdrawal seizures in the past -History of diverticular disease
[2017-09-26 15:30] LABS: Glucose,Whole Blood 112 mg/dL (75-99)
[2017-09-26] MEDS ORDERED: SODIUM CHLORIDE 0.9% 1,000 ML IV ONE (15:38)
[2017-09-26] MEDS ORDERED: THIAMINE 100 MG TAB PO SCH (17:00)
[2017-09-26] MEDS: DEXAMETHASONE SOD PHOSPHATE 4 MG/ML 1 ML VIAL IV SCH (17:04)
[2017-09-26 17:08] LABS: Anisocytosis Slight; Basophils % (A) 0 %; Eosinophils # (A) 0.2 k/uL (0-0.7); Eosinophils % (A) 1 %; HCT 39.2 % (39.0-53.0); Lymphocytes # (A) 0.3 k/uL (1.0-4.8); Lymphocytes % (A) 2 %; MCH 30.8 pg (25.0-35.0); MCHC 32.1 g/dL (31.0-37.0); Mean Platelet Volume 7.4; Monocytes # (A) 0.4 k/uL (0-1.0); Monocytes % (A) 3 %; Neutrophils # (A) 14.9 k/uL (1.3-7.7); Neutrophils % (A) 94 %; Platelet Count 148 k/uL (150-450); RBC 4.08 m/uL (4.30-5.90); RDW 16.6 % (11.5-15.5); WBC 15.8 k/uL (3.8-10.6)
[2017-09-26 17:12] LABS: HGB 12.6 gm/dL (13.0-17.5)
[2017-09-27] MEDS: SODIUM CHLORIDE 0.45% 1,000 ML IV SCH ×4 (00:10→21:44)
[2017-09-27] MEDS: QUEtiapine 100 MG TAB PO SCH ×2 (00:10→21:45)
[2017-09-27] MEDS: DEXAMETHASONE SOD PHOSPHATE 4 MG/ML 1 ML VIAL IV SCH ×5 (00:10→23:51)
[2017-09-27 00:24] LABS: Glucose,Whole Blood 131 mg/dL (75-99)
[2017-09-27] MEDS: AMPICILLIN-SULBACTAM 1.5 GM in SODIUM CHLORIDE 0.9% 50 ML IVPB SCH ×5 (00:27→23:50)
[2017-09-27] MEDS: LORazepam 2 MG/ML INJ IV PRN ×3 (00:30→18:46)
[2017-09-27] MEDS: IPRATROPIUM-ALBUTEROL 3 ML NEB INHALATION SCH ×7 (00:58→23:33)
[2017-09-27] MEDS: PROPOFOL 1,000 MG in EMPTY BAG 1 BAG IV SCH ×5 (02:10→21:45)
[2017-09-27] MEDS: LACTATED RINGERS 1,000 ML IV SCH ×2 (02:10→04:10)
[2017-09-27] MEDS: diphenhydrAMINE 50 MG/ML 1 ML VIAL IVP SCH ×4 (02:12→21:46)
[2017-09-27 05:21] LABS: ABG Base Excess 6.6 mmol/L; ABG HCO3 31 mmol/L (21-25); ABG Oxygen Saturation 97.7 % (94-97); ABG PCO2 47 mmHg (35-45); ABG PH 7.42 (7.35-7.45); ABG PO2 102 mmHg (83-108); ABG TCO2 33 mmol/L (19-24)
[2017-09-27 06:00] LABS: Anisocytosis Slight; Basophils % (A) 0 %; Eosinophils % (A) 0 %; HCT 36.4 % (39.0-53.0); HGB 11.4 gm/dL (13.0-17.5); Lymphocytes # (A) 0.3 k/uL (1.0-4.8); Lymphocytes % (A) 2 %; MCH 30.6 pg (25.0-35.0); MCHC 31.3 g/dL (31.0-37.0); MCV 97.7 fL (80.0-100.0); Macrocytosis Slight; Mean Platelet Volume 7.5; Monocytes # (A) 0.4 k/uL (0-1.0); Monocytes % (A) 3 %; Neutrophils % (A) 94 %; Platelet Count 131 k/uL (150-450); RBC 3.73 m/uL (4.30-5.90); RDW 16.7 % (11.5-15.5); WBC 13.8 k/uL (3.8-10.6)
[2017-09-27 06:19] LABS: ALT 27 U/L (21-72); AST 27 U/L (17-59); Albumin 2.6 g/dL (3.5-5.0); Alkaline Phosphatase 74 U/L (38-126); Anion Gap 13 mmol/L; Blood Urea Nitrogen 21 mg/dL (9-20); Carbon Dioxide 28 mmol/L (22-30); Chloride 97 mmol/L (98-107); Glucose 139 mg/dL (74-99); Magnesium 1.9 mg/dL (1.6-2.3); Phosphorus 3.5 mg/dL (2.5-4.5); Potassium 3.5 mmol/L (3.5-5.1); Sodium 138 mmol/L (137-145); Total Bilirubin 0.9 mg/dL (0.2-1.3)
[2017-09-27 06:24] LABS: Calcium 6.6 mg/dL (8.4-10.2)
[2017-09-27] MEDS: MAGNESIUM SULFATE-D5W PMX 1 GM in DEXTROSE/WATER 1 100ML.BAG IVPB SCH ×2 (06:59→08:07)
[2017-09-27] MEDS: ENOXAPARIN 40 MG/0.4 ML SYRINGE SQ SCH (08:47)
[2017-09-27] MEDS: PANTOPRAZOLE 40 MG/10 ML VIAL IVP SCH (08:52)
[2017-09-27] MEDS: CHLORHEXIDINE GLUCONATE 15 ML CUP MUCOUS MEM SCH ×2 (08:52→21:45)
[2017-09-27] MEDS: THIAMINE 100 MG/ML 2 ML VIAL IVP SCH (08:53)
--- NOTE | 2017-09-27 08:53 | XR ---
EXAMINATION TYPE: XR chest 1V portable DATE OF EXAM: 09/27/2017 COMPARISON: 09/26/2017 HISTORY: Tube placement TECHNIQUE: Single frontal view of the chest is obtained. FINDINGS: ET and NG tubes stable. Bilateral infiltrate and small effusion on the left. Coarsened int erstitium stable. No pneumothorax. Chronic arthropathy of the shoulders. Heart size stable. IMPRESSION: 1. Bilateral infiltrate and small left effusion are stable. Interstitial pneumonitis or venous conges tion in the differential diagnosis.
[2017-09-27] MEDS: POTASSIUM BICARBONATE/CIT AC 20 MEQ TABLET.EFF NG-TUBE SCH ×2 (09:05→10:57)
--- NOTE | 2017-09-27 10:31 | P.PN ---
Subjective Progress Note Date: 09/27/17 57-year-old male who was seen in the emergency department with possible alcohol withdrawal. He apparently drinks about a fifth of alcohol per day. He drank last about 18 hours ago. He apparently was feeling very shaky with persistent nausea vomiting. He also was found have some coffee ground emesis. The patient was also noted to have some respiratory difficulty and also some possible stridor. It's not clear whether or not stridor began in the emergency room or preceded the ER visit. Anyway, the ER physician attempted to intubate the patient for declining respiratory status and was unable to do so. He told me on the phone that the epiglottis was swollen but not kebede-red such as infectious epiglottitis. Anyway, he was finally able to intubated with a 6-1/ 2 tube. This may have been somewhat of a traumatic intubation. The patient was fluid resuscitated in the emergency room and transferred up to the ICU. Currently, the patient's on the volume assist control mode, rate is 14, tidal volume is 500, FiO2 is now 50% previously 100% and PEEP of 5. Arterial blood gases on 100% show a PaO2 of greater than 400, a PaCO2 of 59 and a pH 7.36. The patient's currently on propofol at 35 mics per kilogram per minute and a saline IV at 150. Chest x-ray here in the ICU was without abnormality. The patient will be placed on Decadron for airway edema. The patient was also placed on DuoNeb's every 4 [id number]. Labs x-rays and other testing is ordered for the morning. On today's evaluation of 09/27/2017, the patient remains intubated on a mechanical ventilator. The patient is an assist-control mode at the rate of 14 , tidal volume of 500, FiO2 of 50% and a PEEP of 5. I reviewed the chest x-ray from today. There is development of bilateral lower lobe pulmonary infiltrates most on the left and there is also some hazy infiltration of the left lung. ET tube is in a good location. The patient is having rest or secretions minimal at this point in time. He is covered with antibiotics and currently is on Unasyn. He is sedated with Diprivan and is calm and comfortable. No significant agitation at this point. Diprivan is running at the rate of 40 mics per KG per minute. He is also getting Ativan on a when necessary basis. He is on a CIWA scale, receiving Ativan every hours, 1-2 hours as needed. IV fluids is in the form of half normal saline at the rate of 150 mL an hour. His urine output is adequate. He has peripheral lines a total of 3. He is also on Decadron 4 questionable epiglottitis and he is also on Benadryl. As mentioned earlier intubation itself was somewhat traumatic. NG tube is in place and the output was approximately 50 mL over night. The patient is afebrile. No other significant events overnight. No seizure activity. Objective - Vital Signs Vital signs: Vital Signs Temp 97.1 F L 09/27/17 08:00 Pulse 58 L 09/27/17 10:00 Resp 13 09/27/17 10:00 BP 90/67 09/27/17 10:00 Pulse Ox 98 09/27/17 10:00 Intake & Output 09/26/17 09/27/17 09/27/17 18:59 06:59 18:59 Intake Total 2506.232 2992.653 933.734 Output Total 505 395 190 Balance 2001.232 2597.653 743.734 Weight 73.8 kg 80.2 kg Intake: IV 2500 2800 600 Ampicillin-Sulbactam 1.5 150 gm In Sodium Chloride 0.9 % 50 ml @ 100 mls/hr IVPB Q6HR [facility] Rx#:[id number] LR bolus 1000 1000 Propofol 1,000 mg In 150 Empty Bag 1 bag @ Titrate IV .Q0M [facility] Rx#: [id number] Sodium Chloride 0.45% 1, 1350 1650 600 000 ml @ 150 mls/hr IV . Q6H40M [facility] Rx#:[id number] Intake, IV Titration 6.232 192.653 293.734 Amount Magnesium Sulfate-D5w Pmx 200 1 gm In Dextrose/Water 1 100ml.bag @ 100 mls/hr IVPB Q1H [facility] Rx#: [id number] Propofol 1,000 mg In 6.232 Empty Bag 1 bag @ Titrate IV .Q0M [facility] Rx#: [id number] Propofol 1,000 mg In 192.653 93.734 Empty Bag 1 bag @ Titrate IV .Q0M [facility] Rx#: [id number] Other 40 Output: Gastric Drainage 30 Urine 505 365 190 Other: Voiding Method Indwelling Catheter Indwelling Catheter # Bowel Movements 0 - Exam No acute distress, sedated, oral NG tube and endotracheal tube in place.. The patient is intubated by a #6-1/2 orotracheal tube. HEENT examination is grossly unremarkable. Mucous membranes are moist. Head exam was generally normal. There was no scleral icterus or corneal arcus. Mucous membranes were moist. Neck supple. Full range of motion. No adenopathy thyromegaly or neck vein distention.Neck was supple and without jugular venous distension, thyromegaly, or carotid bruits. Carotids were easily palpable bilaterally. There was no adenopathy. Cardiovascular examination reveals regular rhythm rate. S1-S2 normal. No S3 or S4. No discernible murmur noted. Lungs reveal clear breath sounds. Her sounds are equal bilaterally. No adventitious lung sounds including wheezes rhonchi or crackles. Abdomen soft bowel sounds are heard. No masses or tenderness.Abdominal exam revealed normal bowel sounds. The abdomen was soft, non-tender, and without masses, organomegaly, or appreciable enlargement of the abdominal aorta. Extremities are intact. No cyanosis clubbing or edema. Skin is without rash or lesion.Examination of the skin revealed no evidence of significant rashes, suspicious appearing nevi or other concerning lesions. Neurologic examination could not be performed.The patient is sedated. Neurologic exam is nonfocal. Moving all 4 extremities to painful stimul - Labs CBC & Chem 7: 09/27/17 05:18 09/27/17 05:18 Labs: Abnormal Lab Results - Last 24 Hours (Table) 09/26/17 09/26/17 09/27/17 Range/Units 15:27 16:54 00:21 WBC 15.8 H (3.8-10.6) k/uL RBC 4.08 L (4.30-5.90) m/uL Hgb 12.6 L D (13.0-17.5) gm/dL Hct (39.0-53.0) % RDW 16.6 H (11.5-15.5) % Plt Count 148 L (150-450) k/uL Neutrophils # 14.9 H (1.3-7.7) k/uL Lymphocytes # 0.3 L (1.0-4.8) k/uL ABG pCO2 (35-45) mmHg ABG HCO3 (21-25) mmol/L ABG Total CO2 (19-24) mmol/L ABG O2 Saturation (94-97) % Chloride (98-107) mmol/L BUN (9-20) mg/dL Glucose (74-99) mg/dL POC Glucose (mg/dL) 112 H 131 H (75-99) mg/dL Calcium (8.4-10.2) mg/dL Total Protein (6.3-8.2) g/dL Albumin (3.5-5.0) g/dL 09/27/17 09/27/17 09/27/17 Range/Units :18 : 05:18 WBC 13.8 H (3.8-10.6) k/uL RBC 3.73 L (4.30-5.90) m/uL Hgb 11.4 L (13.0-17.5) gm/dL Hct 36.4 L (39.0-53.0) % RDW 16.7 H (11.5-15.5) % Plt Count 131 L (150-450) k/uL Neutrophils # 13.0 H (1.3-7.7) k/uL Lymphocytes # 0.3 L (1.0-4.8) k/uL ABG pCO2 47 H (35-45) mmHg ABG HCO3 31 H (21-25) mmol/L ABG Total CO2 33 H (19-24) mmol/L ABG O2 Saturation 97.7 H (94-97) % Chloride 97 L (98-107) mmol/L BUN 21 H (9-20) mg/dL Glucose 139 H (74-99) mg/dL POC Glucose (mg/dL) (75-99) mg/dL Calcium 6.6 L (8.4-10.2) mg/dL Total Protein 5.0 L (6.3-8.2) g/dL Albumin 2.6 L (3.5-5.0) g/dL Microbiology - Last 24 Hours (Table) 09/26/17 07:37 Blood Culture - Preliminary Blood No Growth after 24 hours 09/26/17 07:00 Gram Stain - Preliminary Sputum Sputum Culture - Preliminary Assessment and Plan Plan: 1 Altered mentation secondary to delirium tremens/alcohol withdrawal. Patient is known to be alcoholic. 2 acute hypoxic respiratory failure, questionable stridor at a time of the intubation, questionable epiglottitis at time of intubation. The patient's current intubated by 6.5 orotracheal tube. There is evidence of bilateral lower lobe pneumonia more so on the left. 3 acute bilateral lower lobe pneumonia, possible aspiration 4 History of heavy alcohol abuse 5 COPD from previous tobacco use. 6 History of seizure disorder 7 History of DJD 8 History of GERD 9 History of diverticular disease 10 hypokalemia, and hypomagnesemia and magnesium K levels are being replaced 11 coffee-ground gastric aspirate, questionable low-grade upper GI bleed. Plan Continue IV fluids with half-normal saline at the rate of 150 mL an hour. Continue thiamine. Continue sedation with Diprivan and use Ativan only on an as -needed basis. IV Unasyn as an empiric antibiotic coverage. Continue Decadron. Lovenox for DVT prophylaxis. IV Protonix for GI prophylaxis. Keep the patient nothing by mouth for today and will follow-up his progress and make further decision on feeding with the next 24 hours. No plans to extubate this patient for today. We'll continue to follow. Continue antibiotics. Repeat chest x-ray in the morning. Continue supportive care. Replace electrolytes. We'll continue to follow no make further recommendations based on his progress. Amylase and lipase and liver function studies are all within normal limits. Critical care evaluation,, >30 min. Case was discussed with a fiance at the bedside. Time with Patient: Greater than 30
[2017-09-27 11:23] LABS: Hemoglobin A1C 5.6 % (4.0-6.0)
[2017-09-27 11:40] LABS: Glucose,Whole Blood 161 mg/dL (75-99)
--- NOTE | 2017-09-27 14:38 | CONS ---
CONSULTATION DATE OF SERVICE: 09/27/2017 Patient is a 57-year-old white male admitted to the hospital with history of heavy alcohol abuse, admitted to the hospital with shaking, nausea, vomiting secondary to alcohol withdrawal. Apparently, he was brought into the emergency room and had some respiratory difficulty and altered mental status and he was intubated and presently remains sedated and on the vent. After he was intubated, he had an NG tube placed and there was 300 mL of coffee ground emesis that was aspirated. His initial hemoglobin was 16 but subsequently dropped to 12 g/dL. He is presently intubated, sedated on the vent. Only 50 mL of in the last 12 hours. His mother is at the bedside and most of the history was obtained from her. He does not recall him having any upper GI bleed in the past. PAST MEDICAL HISTORY: Significant for GERD, seizure disorder, heavy alcohol abuse. PAST SURGICAL HISTORY: Cardiac cath, appendectomy, hernia repair, tonsillectomy, colonoscopy. MEDICATIONS: At home include Symbicort, Lasix, Seroquel. ALLERGIES: To TRAMADOL. SOCIAL HISTORY: Chronic smoker. Heavy alcohol abuse as mentioned above for 40 years. FAMILY HISTORY: Father has coronary artery disease and [place] in a healthy. REVIEW OF SYSTEMS: Could not be obtained as patient is current on the vent and sedated. PHYSICAL EXAMINATION: He appears comfortable. Vital signs, blood pressure is 97/72, pulse rate 58, temperature 97.6. HEENT examination unremarkable. Conjunctivae pink, sclerae nonicteric. Oral cavity, no lesions. Neck, no JVD or lymph node enlargement. Chest was clear to auscultation. HEAR Regular rate and rhythm. Abdomen was soft, it was nontender, nondistended. Liver and spleen were not palpable. Bowel sounds are positive. No organomegaly. EXTREMITIES No pedal edema. SKIN: No rashes. NEURO: Sedated on the vent. LAB: WBC was 21.4 this morning is 13.8, hemoglobin is 11.4, platelets are 131 ALT AST 08/19/1969 and 39 respectively, alkaline phosphatase a CT serum alcohol 58. IMPRESSION: 1. Altered mental status//acute alcohol withdrawal. Presently sedated on the vent. 2. Upper GI bleed/coffee-ground emesis. Presently has NG tube in place and 300 mL of coffee-grounds emesis met the last 24 hours, dropped hemoglobin 16-12.6, but most of it is dilutional to presently has very minimal amount of coffee-ground material 92, most likely we are dealing with gastritis related to either alcohol use gastritis related to his gastritis and also recent bleeding. RECOMMENDATION: 1. Continue with IV Protonix 40 mg q.12 hours. 2. CBC on a daily basis. 3. We will consider a evaluation during this hospitalization if needed. Thank you for this consultation. Will follow him closely during his hospital stay. HATTIE / SAMANTHA: [id number] /
--- NOTE | 2017-09-27 16:43 | P.PN ---
Subjective Patient is admitted for all call withdrawal intubated at this time patient probably has aspiration coffee-ground emesis, gastroenterology will evaluate the patient patient had stridor secondary to epiglottitis your infectious or secondary to gastric acid. Patient is presently on Unasyn, Decadron remains intubated requiring 40 g of propofol. No overnight events Objective - Vital Signs Vital signs: Vital Signs Temp 97.6 F 09/27/17 12:00 Pulse 63 09/27/17 15:49 Resp 15 09/27/17 15:00 BP 137/96 09/27/17 15:00 Pulse Ox 100 09/27/17 15:00 Intake & Output 09/26/17 09/27/17 09/27/17 18:59 06:59 18:59 Intake Total 2506.232 2992.653 2090.542 Output Total 023 892 0595 Balance 2001.232 2597.653 890.542 Weight 73.8 kg 80.2 kg 80.2 kg Intake: IV 2500 2800 1500 Ampicillin-Sulbactam 1.5 150 gm In Sodium Chloride 0.9 % 50 ml @ 100 mls/hr IVPB Q6HR [facility] Rx#:[id number] LR bolus 1000 1000 Propofol 1,000 mg In 150 Empty Bag 1 bag @ Titrate IV .Q0M [facility] Rx#: [id number] Sodium Chloride 0.45% 1, 1350 1650 1500 000 ml @ 150 mls/hr IV . Q6H40M [facility] Rx#:[id number] Intake, IV Titration 6.232 192.653 510.542 Amount Ampicillin-Sulbactam 1.5 50 gm In Sodium Chloride 0.9 % 50 ml @ 100 mls/hr IVPB Q6HR [facility] Rx#:[id number] Magnesium Sulfate-D5w Pmx 200 1 gm In Dextrose/Water 1 100ml.bag @ 100 mls/hr IVPB Q1H [facility] Rx#: [id number] Propofol 1,000 mg In 6.232 Empty Bag 1 bag @ Titrate IV .Q0M [facility] Rx#: [id number] Propofol 1,000 mg In 192.653 260.542 Empty Bag 1 bag @ Titrate IV .Q0M [facility] Rx#: [id number] Other 80 Output: Gastric Drainage 30 Urine 627 217 9227 Other: Voiding Method Indwelling Catheter Indwelling Catheter Indwelling Catheter # Bowel Movements 0 0 - Exam PHYSICAL EXAMINATION: GENERAL: Patient is intubated sedated on RASS score of around -1, coffee-ground emesis from the NG tube HBEENT: Normocephalic, atraumatic. No pharyngeal erythema. No thyromegaly. CARDIOVASCULAR: S1 and S2 present. No murmurs, rubs, or gallops. PULMONARY: Chest is clear to auscultation, no wheezing or crackles. ABDOMEN: Soft, nontender, nondistended, normoactive bowel sounds. No palpable organomegaly. MUSCULOSKELETAL: No joint swelling or deformity. EXTREMITIES: No cyanosis, clubbing, or pedal edema. NEUROLOGICAL: Unable to assess at this time SKIN: No rashes. - Labs CBC & Chem 7: 09/27/17 05:18 09/27/17 05:18 Labs: Abnormal Lab Results - Last 24 Hours (Table) 09/26/17 09/27/17 09/27/17 Range/Units 16:54 00:21 05:18 WBC 15.8 H 13.8 H (3.8-10.6) k/uL RBC 4.08 L 3.73 L (4.30-5.90) m/uL Hgb 12.6 L D 11.4 L (13.0-17.5) gm/dL Hct 36.4 L (39.0-53.0) % RDW 16.6 H 16.7 H (11.5-15.5) % Plt Count 148 L 131 L (150-450) k/uL Neutrophils # 14.9 H 13.0 H (1.3-7.7) k/uL Lymphocytes # 0.3 L 0.3 L (1.0-4.8) k/uL ABG pCO2 (35-45) mmHg ABG HCO3 (21-25) mmol/L ABG Total CO2 (19-24) mmol/L ABG O2 Saturation (94-97) % Chloride (98-107) mmol/L BUN (9-20) mg/dL Glucose (74-99) mg/dL POC Glucose (mg/dL) 131 H (75-99) mg/dL Calcium (8.4-10.2) mg/dL Total Protein (6.3-8.2) g/dL Albumin (3.5-5.0) g/dL 09/27/17 09/27/17 09/27/17 Range/Units :08 10: 11:38 WBC (3.8-10.6) k/uL RBC (4.30-5.90) m/uL Hgb (13.0-17.5) gm/dL Hct (39.0-53.0) % RDW (11.5-15.5) % Plt Count (150-450) k/uL Neutrophils # (1.3-7.7) k/uL Lymphocytes # (1.0-4.8) k/uL ABG pCO2 47 H (35-45) mmHg ABG HCO3 31 H (21-25) mmol/L ABG Total CO2 33 H (19-24) mmol/L ABG O2 Saturation 97.7 H (94-97) % Chloride 97 L (98-107) mmol/L BUN 21 H (9-20) mg/dL Glucose 139 H (74-99) mg/dL POC Glucose (mg/dL) 161 H (75-99) mg/dL Calcium 6.6 L (8.4-10.2) mg/dL Total Protein 5.0 L (6.3-8.2) g/dL Albumin 2.6 L (3.5-5.0) g/dL Microbiology - Last 24 Hours (Table) 09/26/17 07:37 Blood Culture - Preliminary Blood No Growth after 24 hours 09/26/17 07:00 Gram Stain - Preliminary Sputum Sputum Culture - Preliminary Assessment and Plan Plan: -Acute or respiratory failure, ventilator dependent presently secondary to epiglottitis either infectious or secondary to gastric acid related inflammation. Alcohol withdrawal may be contributing to his respiratory failure -Alcohol abuse and possibility of alcohol withdrawal: Patient is presently on propofol will also use as needed Ativan -Epiglottitis either infectious or inflammatory from nausea vomiting, patient was started on Unasyn, Decadron. -Possible alcoholic gastritis: Patient is on Protonix to be continued -Alcohol withdrawal seizures in the past -History of diverticular disease
[2017-09-27 18:00] LABS: Glucose,Whole Blood 132 mg/dL (75-99)
[2017-09-27 18:29] LABS: Magnesium 2.5 mg/dL (1.6-2.3)
[2017-09-27 23:50] LABS: Glucose,Whole Blood 147 mg/dL (75-99)
[2017-09-28] MEDS: PROPOFOL 1,000 MG in EMPTY BAG 1 BAG IV SCH ×3 (02:41→21:30)
[2017-09-28] MEDS: SODIUM CHLORIDE 0.45% 1,000 ML IV SCH ×4 (02:41→15:14)
[2017-09-28] MEDS: diphenhydrAMINE 50 MG/ML 1 ML VIAL IVP SCH ×4 (02:42→20:54)
[2017-09-28] MEDS: IPRATROPIUM-ALBUTEROL 3 ML NEB INHALATION SCH ×6 (03:34→23:57)
[2017-09-28] MEDS: LORazepam 2 MG/ML INJ IV PRN ×5 (03:50→20:50)
[2017-09-28 04:23] LABS: ABG Base Excess 5.7 mmol/L; ABG HCO3 29 mmol/L (21-25); ABG Oxygen Saturation 98.4 % (94-97); ABG PCO2 40 mmHg (35-45); ABG PH 7.47 (7.35-7.45); ABG PO2 114 mmHg (83-108); ABG TCO2 31 mmol/L (19-24)
[2017-09-28] MEDS: DEXAMETHASONE SOD PHOSPHATE 4 MG/ML 1 ML VIAL IV SCH ×3 (05:44→17:20)
[2017-09-28] MEDS: AMPICILLIN-SULBACTAM 1.5 GM in SODIUM CHLORIDE 0.9% 50 ML IVPB SCH ×3 (05:44→17:22)
[2017-09-28 06:53] LABS: Glucose,Whole Blood 133 mg/dL (75-99)
[2017-09-28 07:00] LABS: Anisocytosis Slight; Basophils % (A) 0 %; Eosinophils # (A) 0.1 k/uL (0-0.7); Eosinophils % (A) 0 %; HCT 41.2 % (39.0-53.0); HGB 12.9 gm/dL (13.0-17.5); Hypochromasia Slight; Lymphocytes # (A) 0.4 k/uL (1.0-4.8); Lymphocytes % (A) 3 %; MCH 31.2 pg (25.0-35.0); MCHC 31.3 g/dL (31.0-37.0); MCV 99.7 fL (80.0-100.0); Macrocytosis Slight; Monocytes # (A) 0.6 k/uL (0-1.0); Monocytes % (A) 5 %; Neutrophils # (A) 10.9 k/uL (1.3-7.7); Neutrophils % (A) 91 %; Platelet Count 140 k/uL (150-450); RBC 4.14 m/uL (4.30-5.90); RDW 16.6 % (11.5-15.5); WBC 11.9 k/uL (3.8-10.6)
--- NOTE | 2017-09-28 08:36 | XR ---
EXAMINATION TYPE: XR chest 1V portable DATE OF EXAM: 09/28/2017 COMPARISON: 09/27/2017 HISTORY: Tube placement TECHNIQUE: Single frontal view of the chest is obtained. FINDINGS: ET and NG tubes stable. Bilateral infiltrate and small effusion on the left. Coarsened int erstitium stable. No pneumothorax. Chronic arthropathy of the shoulders. Heart size stable. IMPRESSION: Bilateral infiltrate and small left effusion are stable. Interstitial pneumonitis or viet ous congestion in the differential diagnosis.
[2017-09-28] MEDS: ENOXAPARIN 40 MG/0.4 ML SYRINGE SQ SCH (08:42)
[2017-09-28] MEDS: CHLORHEXIDINE GLUCONATE 15 ML CUP MUCOUS MEM SCH ×2 (08:42→20:55)
[2017-09-28] MEDS: THIAMINE 100 MG/ML 2 ML VIAL IVP SCH (08:43)
[2017-09-28] MEDS: PANTOPRAZOLE 40 MG/10 ML VIAL IVP SCH ×3 (08:43→20:55)
[2017-09-28 08:54] LABS: ALT 26 U/L (21-72); AST 23 U/L (17-59); Albumin 2.7 g/dL (3.5-5.0); Alkaline Phosphatase 65 U/L (38-126); Anion Gap 9 mmol/L; Blood Urea Nitrogen 15 mg/dL (9-20); Calcium 6.6 mg/dL (8.4-10.2); Carbon Dioxide 27 mmol/L (22-30); Chloride 101 mmol/L (98-107); Glucose 142 mg/dL (74-99); Potassium 3.7 mmol/L (3.5-5.1); Sodium 137 mmol/L (137-145); Total Bilirubin 0.6 mg/dL (0.2-1.3); Total Protein 5.1 g/dL (6.3-8.2)
--- NOTE | 2017-09-28 09:31 | P.PN ---
Subjective Progress Note Date: 09/28/17 Principal diagnosis: Alcohol withdrawal Intubated sedated. No reports of melena or hematochezia. Coffee-ground flecks via NG tube. Hemoglobin stable at 12.9. Objective - Vital Signs Vital signs: Vital Signs Temp 97.8 F 09/28/17 03:00 Pulse 71 09/28/17 07:00 Resp 18 09/28/17 07:00 BP 131/88 09/28/17 07:00 Pulse Ox 100 09/28/17 07:00 Intake & Output 09/27/17 09/28/17 09/28/17 18:59 06:59 18:59 Intake Total 2390.542 2141.267 150 Output Total 1600 1730 125 Balance 790.542 411.267 25 Weight 80.2 kg Intake: IV 1800 1950 150 Ampicillin-Sulbactam 1.5 150 gm In Sodium Chloride 0.9 % 50 ml @ 100 mls/hr IVPB Q6HR [facility] Rx#:[id number] Sodium Chloride 0.45% 1, 1800 1800 150 000 ml @ 150 mls/hr IV . Q6H40M [facility] Rx#:[id number] Intake, IV Titration 510.542 191.267 Amount Ampicillin-Sulbactam 1.5 50 gm In Sodium Chloride 0.9 % 50 ml @ 100 mls/hr IVPB Q6HR [facility] Rx#:[id number] Magnesium Sulfate-D5w Pmx 200 1 gm In Dextrose/Water 1 100ml.bag @ 100 mls/hr IVPB Q1H [facility] Rx#: [id number] Propofol 1,000 mg In 260.542 191.267 Empty Bag 1 bag @ Titrate IV .Q0M [facility] Rx#: [id number] Other 80 Output: Gastric Drainage 100 Urine 1500 1730 125 Other: Voiding Method Indwelling Catheter Indwelling Catheter # Bowel Movements 0 0 - Exam General appearance: The patient is intubated sedated.. HET: Head is normocephalic and atraumatic. Pupils are equal and reactive. Oropharynx is clear without lesions. NG tube with watery coffee-ground flecks bilious fluid. Neck: Supple without lymphadenopathy. Trachea midline. Heart: S1 S2. Regular rate and rhythm. Lungs: No crackles or wheezes are heard. Endotracheal tube intact. Abdomen: Soft, nontender, nondistended with bowel sounds. No peritoneal signs. No palpable organomegaly or masses. Extremities: Normal skin color and turgor. No cyanosis, rash, ulceration, clubbing, or edema. Radial and pedal pulses are 2/4 bilaterally. [place] with clear ingrid urine. Neurological: No focal deficits. Intubated sedated. - Labs CBC & Chem 7: 09/28/17 06:40 09/28/17 08:40 Labs: Abnormal Lab Results - Last 24 Hours (Table) 09/27/17 09/27/17 09/27/17 Range/Units 11:38 17:59 18:04 WBC (3.8-10.6) k/uL RBC (4.30-5.90) m/uL Hgb (13.0-17.5) gm/dL RDW (11.5-15.5) % Plt Count (150-450) k/uL Neutrophils # (1.3-7.7) k/uL Lymphocytes # (1.0-4.8) k/uL ABG pH (7.35-7.45) ABG pO2 (83-108) mmHg ABG HCO3 (21-25) mmol/L ABG Total CO2 (19-24) mmol/L ABG O2 Saturation (94-97) % POC Glucose (mg/dL) 161 H 132 H (75-99) mg/dL Magnesium 2.5 H (1.6-2.3) mg/dL 09/27/17 09/28/17 09/28/17 Range/Units 23:48 04:17 06:40 WBC 11.9 H (3.8-10.6) k/uL RBC 4.14 L (4.30-5.90) m/uL Hgb 12.9 L (13.0-17.5) gm/dL RDW 16.6 H (11.5-15.5) % Plt Count 140 L (150-450) k/uL Neutrophils # 10.9 H (1.3-7.7) k/uL Lymphocytes # 0.4 L (1.0-4.8) k/uL ABG pH 7.47 H (7.35-7.45) ABG pO2 114 H (83-108) mmHg ABG HCO3 29 H (21-25) mmol/L ABG Total CO2 31 H (19-24) mmol/L ABG O2 Saturation 98.4 H (94-97) % POC Glucose (mg/dL) 147 H (75-99) mg/dL Magnesium (1.6-2.3) mg/dL 09/28/17 Range/Units 06:52 WBC (3.8-10.6) k/uL RBC (4.30-5.90) m/uL Hgb (13.0-17.5) gm/dL RDW (11.5-15.5) % Plt Count (150-450) k/uL Neutrophils # (1.3-7.7) k/uL Lymphocytes # (1.0-4.8) k/uL ABG pH (7.35-7.45) ABG pO2 (83-108) mmHg ABG HCO3 (21-25) mmol/L ABG Total CO2 (19-24) mmol/L ABG O2 Saturation (94-97) % POC Glucose (mg/dL) 133 H (75-99) mg/dL Magnesium (1.6-2.3) mg/dL Microbiology - Last 24 Hours (Table) 09/26/17 07:37 Blood Culture - Preliminary Blood No Growth after 24 hours Assessment and Plan (1) Coffee ground emesis Narrative/Plan: Alcohol gastritis no evidence of melena or hematochezia. Mild component of acute blood loss anemia. History of underlying GERD. Current Visit: Yes Status: Acute Code(s): K92.0 - HEMATEMESIS SNOMED Code( s): 140546415 (2) Alcohol withdrawal Narrative/Plan: Altered mentation secondary to delirium tremens alcohol withdrawal history of EtOH abuse. Current Visit: Yes Status: Acute Code(s): F10.239 - ALCOHOL DEPENDENCE WITH WITHDRAWAL, UNSPECIFIED SNOMED Code(s): 410963340 (3) Respiratory failure Narrative/Plan: Acute hypoxic respiratory failure intubation possible stridor possible epiglottitis at time of intubation Current Visit: Yes Status: Acute Code(s): J96.90 - RESPIRATORY FAILURE, UNSP , UNSP W HYPOXIA OR HYPERCAPNIA SNOMED Code(s): 745569188 (4) ETOH abuse Current Visit: Yes Status: Chronic Code(s): F10.10 - ALCOHOL ABUSE, UNCOMPLICATED SNOMED Code(s): 98806465 (5) Alcohol intoxication Current Visit: No Status: Acute Code(s): F10.129 - ALCOHOL ABUSE WITH INTOXICATION, UNSPECIFIED SNOMED Code(s): 86821968 Plan: 1. Protonix 40 mg IV twice daily. Agreeable for trickle feeds per resident care aide evaluation today. Inpatient EGD contingent on clinical course not planned at this time. We'll continue to follow with you. CBC monitoring. Assessment and plan a care discussed with Dr. Henson
[2017-09-28 10:47] LABS: Magnesium 2.2 mg/dL (1.6-2.3); Phosphorus 2.7 mg/dL (2.5-4.5)
[2017-09-28] MEDS ORDERED: POTASSIUM BICARBONATE/CIT AC 20 MEQ TABLET.EFF NG-TUBE SCH (12:00)
[2017-09-28 12:02] LABS: Glucose,Whole Blood 146 mg/dL (75-99)
--- NOTE | 2017-09-28 12:39 | P.PN ---
Subjective Progress Note Date: 09/28/17 57-year-old male who was seen in the emergency department with possible alcohol withdrawal. He apparently drinks about a fifth of alcohol per day. He drank last about 18 hours ago. He apparently was feeling very shaky with persistent nausea vomiting. He also was found have some coffee ground emesis. The patient was also noted to have some respiratory difficulty and also some possible stridor. It's not clear whether or not stridor began in the emergency room or preceded the ER visit. Anyway, the ER physician attempted to intubate the patient for declining respiratory status and was unable to do so. He told me on the phone that the epiglottis was swollen but not kebede-red such as infectious epiglottitis. Anyway, he was finally able to intubated with a 6-1/ 2 tube. This may have been somewhat of a traumatic intubation. The patient was fluid resuscitated in the emergency room and transferred up to the ICU. Currently, the patient's on the volume assist control mode, rate is 14, tidal volume is 500, FiO2 is now 50% previously 100% and PEEP of 5. Arterial blood gases on 100% show a PaO2 of greater than 400, a PaCO2 of 59 and a pH 7.36. The patient's currently on propofol at 35 mics per kilogram per minute and a saline IV at 150. Chest x-ray here in the ICU was without abnormality. The patient will be placed on Decadron for airway edema. The patient was also placed on DuoNeb's every 4 [id number]. Labs x-rays and other testing is ordered for the morning. On today's evaluation of 09/27/2017, the patient remains intubated on a mechanical ventilator. The patient is an assist-control mode at the rate of 14 , tidal volume of 500, FiO2 of 50% and a PEEP of 5. I reviewed the chest x-ray from today. There is development of bilateral lower lobe pulmonary infiltrates most on the left and there is also some hazy infiltration of the left lung. ET tube is in a good location. The patient is having rest or secretions minimal at this point in time. He is covered with antibiotics and currently is on Unasyn. He is sedated with Diprivan and is calm and comfortable. No significant agitation at this point. Diprivan is running at the rate of 40 mics per KG per minute. He is also getting Ativan on a when necessary basis. He is on a CIWA scale, receiving Ativan every hours, 1-2 hours as needed. IV fluids is in the form of half normal saline at the rate of 150 mL an hour. His urine output is adequate. He has peripheral lines a total of 3. He is also on Decadron 4 questionable epiglottitis and he is also on Benadryl. As mentioned earlier intubation itself was somewhat traumatic. NG tube is in place and the output was approximately 50 mL over night. The patient is afebrile. No other significant events overnight. No seizure activity. On 09/28/2017 I'm seeing this patient for a follow-up. He remains intubated on a mechanical ventilator. A brief sedation holiday was given and the patient was quite agitated and restless and thrashing and I think there may be a component of the delirium tremens. Based on that, the patient placed back on propofol and currently is well sedated. We'll try to get another sedation holiday with the next 24 hours. Meanwhile, is being treated for an aspiration pneumonia. He is remains on an assist-control mode at the rate of 14, tidal volume of 500 and FiO2 of 35% and a PEEP of 5. Chest x-ray shows improvement in a lower lobe pulmonary infiltrate and the patient remains on IV Unasyn. No fever or chills. No night sweats. No significant orotracheal secretions. The blood gases from today showed a pH of 7.47 with a pCO2 of 40 and pO2 114. Renal function remains stable with a creatinine of 0.5. The net fluid balance is positive for 0.5 L on 09/27 and and possibly 1.2 L on 09/28/2017. He is hemodynamically stable. He is receiving half-normal saline at the rate of 150 mL an hour. The patient remains nothing by mouth. Enteral feeding with tube feeds will be started today. He remains on IV Protonix. Hemodynamically stable. Objective - Vital Signs Vital signs: Vital Signs Temp 97.9 F 09/28/17 12:00 Pulse 65 09/28/17 12:00 Resp 14 09/28/17 12:00 BP 103/73 09/28/17 12:00 Pulse Ox 97 09/28/17 12:00 Intake & Output 09/27/17 09/28/17 09/28/17 18:59 06:59 18:59 Intake Total 2390.542 2141.267 1050 Output Total 1600 1730 1160 Balance 790.542 411.267 -110 Weight 80.2 kg 83 kg Intake: IV 1800 1950 900 Ampicillin-Sulbactam 1.5 150 50 gm In Sodium Chloride 0.9 % 50 ml @ 100 mls/hr IVPB Q6HR [facility] Rx#:[id number] Sodium Chloride 0.45% 1, 1800 1800 850 000 ml @ 150 mls/hr IV . Q6H40M [facility] Rx#:[id number] Intake, IV Titration 510.542 191.267 100 Amount Ampicillin-Sulbactam 1.5 50 gm In Sodium Chloride 0.9 % 50 ml @ 100 mls/hr IVPB Q6HR [facility] Rx#:[id number] Magnesium Sulfate-D5w Pmx 200 1 gm In Dextrose/Water 1 100ml.bag @ 100 mls/hr IVPB Q1H [facility] Rx#: [id number] Propofol 1,000 mg In 260.542 191.267 100 Empty Bag 1 bag @ Titrate IV .Q0M [facility] Rx#: [id number] Tube Feeding 20 Other 80 30 Output: Gastric Drainage 100 150 Urine 1500 1730 1010 Other: Voiding Method Indwelling Catheter Indwelling Catheter Indwelling Catheter # Bowel Movements 0 0 0 - Exam No acute distress, sedated, oral NG tube and endotracheal tube in place.. The patient is intubated by a #6-1/2 orotracheal tube. HEENT examination is grossly unremarkable. Mucous membranes are moist. Head exam was generally normal. There was no scleral icterus or corneal arcus. Mucous membranes were moist. Neck supple. Full range of motion. No adenopathy thyromegaly or neck vein distention.Neck was supple and without jugular venous distension, thyromegaly, or carotid bruits. Carotids were easily palpable bilaterally. There was no adenopathy. Cardiovascular examination reveals regular rhythm rate. S1-S2 normal. No S3 or S4. No discernible murmur noted. Lungs reveal clear breath sounds. Her sounds are equal bilaterally. No adventitious lung sounds including wheezes rhonchi or crackles. Abdomen soft bowel sounds are heard. No masses or tenderness.Abdominal exam revealed normal bowel sounds. The abdomen was soft, non-tender, and without masses, organomegaly, or appreciable enlargement of the abdominal aorta. Extremities are intact. No cyanosis clubbing or edema. Skin is without rash or lesion.Examination of the skin revealed no evidence of significant rashes, suspicious appearing nevi or other concerning lesions. Neurologic examination could not be performed.The patient is sedated. Neurologic exam is nonfocal. Moving all 4 extremities to painful stimul - Labs CBC & Chem 7: 09/28/17 06:40 09/28/17 08:40 Labs: Abnormal Lab Results - Last 24 Hours (Table) 09/27/17 09/27/17 09/27/17 Range/Units 17:59 18:04 23:48 WBC (3.8-10.6) k/uL RBC (4.30-5.90) m/uL Hgb (13.0-17.5) gm/dL RDW (11.5-15.5) % Plt Count (150-450) k/uL Neutrophils # (1.3-7.7) k/uL Lymphocytes # (1.0-4.8) k/uL ABG pH (7.35-7.45) ABG pO2 (83-108) mmHg ABG HCO3 (21-25) mmol/L ABG Total CO2 (19-24) mmol/L ABG O2 Saturation (94-97) % Creatinine (0.66-1.25) mg/dL Glucose (74-99) mg/dL POC Glucose (mg/dL) 132 H 147 H (75-99) mg/dL Calcium (8.4-10.2) mg/dL Magnesium 2.5 H (1.6-2.3) mg/dL Total Protein (6.3-8.2) g/dL Albumin (3.5-5.0) g/dL 09/28/17 09/28/17 09/28/17 Range/Units 04:17 06:40 06:52 WBC 11.9 H (3.8-10.6) k/uL RBC 4.14 L (4.30-5.90) m/uL Hgb 12.9 L (13.0-17.5) gm/dL RDW 16.6 H (11.5-15.5) % Plt Count 140 L (150-450) k/uL Neutrophils # 10.9 H (1.3-7.7) k/uL Lymphocytes # 0.4 L (1.0-4.8) k/uL ABG pH 7.47 H (7.35-7.45) ABG pO2 114 H (83-108) mmHg ABG HCO3 29 H (21-25) mmol/L ABG Total CO2 31 H (19-24) mmol/L ABG O2 Saturation 98.4 H (94-97) % Creatinine (0.66-1.25) mg/dL Glucose (74-99) mg/dL POC Glucose (mg/dL) 133 H (75-99) mg/dL Calcium (8.4-10.2) mg/dL Magnesium (1.6-2.3) mg/dL Total Protein (6.3-8.2) g/dL Albumin (3.5-5.0) g/dL 09/28/17 09/28/17 Range/Units 08:40 12:00 WBC (3.8-10.6) k/uL RBC (4.30-5.90) m/uL Hgb (13.0-17.5) gm/dL RDW (11.5-15.5) % Plt Count (150-450) k/uL Neutrophils # (1.3-7.7) k/uL Lymphocytes # (1.0-4.8) k/uL ABG pH (7.35-7.45) ABG pO2 (83-108) mmHg ABG HCO3 (21-25) mmol/L ABG Total CO2 (19-24) mmol/L ABG O2 Saturation (94-97) % Creatinine 0.58 L (0.66-1.25) mg/dL Glucose 142 H (74-99) mg/dL POC Glucose (mg/dL) 146 H (75-99) mg/dL Calcium 6.6 L (8.4-10.2) mg/dL Magnesium (1.6-2.3) mg/dL Total Protein 5.1 L (6.3-8.2) g/dL Albumin 2.7 L (3.5-5.0) g/dL Microbiology - Last 24 Hours (Table) 09/26/17 07:00 Gram Stain - Final Sputum Sputum Culture - Final 09/26/17 07:37 Blood Culture - Preliminary Blood No Growth after 48 hours Assessment and Plan Plan: 1 Altered mentation secondary to delirium tremens/alcohol withdrawal. Patient is known to be alcoholic. The patient is currently intubated on a mechanical ventilator. A sedation holiday was given and the patient woke up yet he was quite restless and agitated and thrashing. Based on that, no further weaning was done and the patient was started back on Diprivan for sedation. He is probably going through delirium tremens. The patient will need another 24 hours for further weaning. 2 acute hypoxic respiratory failure, questionable stridor at a time of the intubation, questionable epiglottitis at time of intubation. The patient's current intubated by 6.5 orotracheal tube. There is evidence of bilateral lower lobe pneumonia more so on the left. The chest x-ray from today shows improvement of the lower lobe bilateral pulmonary infiltrates. Oxidation is also stated the cough and the patient has possibly leak around the orotracheal tube. 3 acute bilateral lower lobe pneumonia, possible aspiration, currently on Unasyn , improving 4 History of heavy alcohol abuse 5 COPD from previous tobacco use. 6 History of seizure disorder 7 History of DJD 8 History of GERD 9 History of diverticular disease 10 hypokalemia, and hypomagnesemia, recovered 11 coffee-ground gastric aspirate, questionable low-grade upper GI bleed. Plan No plans to wean this patient off the mechanical ventilator today. Kept on IV fluids with half-normal saline today to 40 mL an hour. Initiate tube feeds. Monitor the electrolytes and replace magnesium and potassium levels accordingly. Continued IV Unasyn. Start the patient enteral feeding for nutritional support. I do not think we should have a major problem extubated this patient knowing that he has a positive cough leak as evaluated at the bedside today. Nevertheless, the concern is his altered mentation and possible I have not extubated this patient and I will give another 24 hours and do another sedation holiday in the morning. Meanwhile, we'll start the patient on tube feeds. We'll continue to follow. No vent changes for today. Continue IV Unasyn. Continue IV Protonix. We'll follow. Critical care evaluation, more than 30 minutes. Time with Patient: Greater than 30
[2017-09-28] MEDS: QUEtiapine 100 MG TAB PO SCH (21:50)
--- NOTE | 2017-09-28 22:00 | PN ---
PROGRESS NOTE DATE OF SERVICE: 09/28/2017. HISTORY: This 57-year-old gentleman admitted with acute alcohol withdrawal has also had acute respiratory failure. Patient mechanically intubated, after extubation the patient is agitated and the extubation was not successful. Patient is being closely monitored at this time. The patient has received Ativan. Patient is mildly hypertensive. PAST MEDICAL HISTORY AND REVIEW OF SYSTEMS: Could not be taken, the patient is on mechanical vision, settings are noted. CURRENT MEDICATIONS: 1. Tylenol suppository. 2. DuoNeb q.i.d. and p.r.n. 3. Unasyn 1.5 every 6 hours. 4. Peridex. 5. Decadron 6 mg IV every 6 hours. 6. Benadryl. 7. Lovenox 40 mg subcu daily. 8. Ativan 1 mg p.r.n. as per protocol. 9. Protonix 40 mg IV b.i.d. 10.Reglan 10 mg p.o. at bedtime. PHYSICAL EXAM: Patient is alert, oriented. Pulse 68, blood pressure 140/81, respirations 16, temperature 97.9, pulse ox 100% on mechanical ventilation, 35% FiO2. HEENT: Oral mucosa moist. NECK: No JVD. CARDIOVASCULAR: S1, S2. RESPIRATORY: Breath sounds diminished in the bases. No rhonchi and crackles. ABDOMEN: Soft, nontender. EXTREMITIES: Legs no edema, no swelling. NERVOUS SYSTEM: Higher functions as mentioned earlier. Moves all 4 limbs. LYMPHATICS: No lymph nodes palpable in the neck or axilla. SKIN: No rashes. LABS: WBC 11.9, hemoglobin 12.9. ASSESSMENT: 1. Acute alcoholic withdrawal with acute hypoxic respiratory failure on mechanical ventilation. 2. Alcohol abuse. 3. Epiglottitis. 4. History of alcoholic gastritis. 5. Alcohol withdrawal seizures in the past. 6. History of diverticular disease. RECOMMENDATIONS: Recommend to continue current management and continue symptomatic treatment. Continue mechanical ventilation. Continue with the rest of medications. Ativan p.r.n. Closely follow with Dr. Flynn. Prognosis guarded because of multiple complex medical. Discussed with staff. See orders for details. Repeat labs will be ordered. Further recommendations to follow. MMODL / IJN: [id number] /
[2017-09-29] MEDS: AMPICILLIN-SULBACTAM 1.5 GM in SODIUM CHLORIDE 0.9% 50 ML IVPB SCH ×5 (00:32→23:58)
[2017-09-29] MEDS: DEXAMETHASONE SOD PHOSPHATE 4 MG/ML 1 ML VIAL IV SCH ×5 (00:45→23:59)
[2017-09-29 01:20] LABS: Glucose,Whole Blood 123 mg/dL (75-99)
[2017-09-29] MEDS: diphenhydrAMINE 50 MG/ML 1 ML VIAL IVP SCH ×4 (02:08→20:46)
[2017-09-29] MEDS: IPRATROPIUM-ALBUTEROL 3 ML NEB INHALATION SCH ×6 (03:42→23:53)
[2017-09-29 04:34] LABS: ABG Base Excess 7.4 mmol/L; ABG HCO3 31 mmol/L (21-25); ABG Oxygen Saturation 98.1 % (94-97); ABG PCO2 39 mmHg (35-45); ABG PO2 93 mmHg (83-108); ABG TCO2 32 mmol/L (19-24)
[2017-09-29 04:35] LABS: Anisocytosis Slight; HCT 42.7 % (39.0-53.0); HGB 14.3 gm/dL (13.0-17.5); MCH 32.7 pg (25.0-35.0); MCHC 33.5 g/dL (31.0-37.0); MCV 97.7 fL (80.0-100.0); Macrocytosis Slight; Mean Platelet Volume 9.1; Platelet Count 147 k/uL (150-450); RBC 4.37 m/uL (4.30-5.90); RDW 16.7 % (11.5-15.5); WBC 14.9 k/uL (3.8-10.6)
[2017-09-29 04:42] LABS: ALT 16 U/L (21-72); AST 42 U/L (17-59); Albumin 2.8 g/dL (3.5-5.0); Alkaline Phosphatase 51 U/L (38-126); Anion Gap 11 mmol/L; Blood Urea Nitrogen 17 mg/dL (9-20); Calcium 7.4 mg/dL (8.4-10.2); Carbon Dioxide 25 mmol/L (22-30); Chloride 103 mmol/L (98-107); Glucose 133 mg/dL (74-99); Magnesium 2.2 mg/dL (1.6-2.3); Phosphorus 3.1 mg/dL (2.5-4.5); Sodium 139 mmol/L (137-145); Total Protein 5.8 g/dL (6.3-8.2)
[2017-09-29 04:44] LABS: Potassium 5.4 mmol/L (3.5-5.1)
[2017-09-29 04:53] LABS: Band Neutrophils % 4 %; Lymphocytes # (M) 0.89 k/uL (1.0-4.8); Monocytes # (M) 0.75 k/uL (0-1.0); Neutrophils % (M) 87 %; Nucleated Red Blood Cells 0 /100 WBC (0-0); Total Cells Counted 200
[2017-09-29 04:54] LABS: Toxic Vacuolation Present
[2017-09-29] MEDS: PROPOFOL 1,000 MG in EMPTY BAG 1 BAG IV SCH ×2 (06:43→07:08)
[2017-09-29] MEDS ORDERED: FUROSEMIDE 10 MG/ML 4 ML VIAL IV STA (08:23)
[2017-09-29] MEDS: PANTOPRAZOLE 40 MG/10 ML VIAL IVP SCH ×2 (08:41→20:46)
[2017-09-29] MEDS: ENOXAPARIN 40 MG/0.4 ML SYRINGE SQ SCH (08:41)
[2017-09-29] MEDS: CHLORHEXIDINE GLUCONATE 15 ML CUP MUCOUS MEM SCH (08:41)
[2017-09-29] MEDS: THIAMINE 100 MG/ML 2 ML VIAL IVP SCH (08:42)
--- NOTE | 2017-09-29 09:08 | XR ---
EXAMINATION TYPE: XR chest 1V portable DATE OF EXAM: 09/29/2017 COMPARISON: 09/28/2017 HISTORY: Tube placement TECHNIQUE: Single frontal view of the chest is obtained. FINDINGS: ET and NG tubes stable. Bilateral infiltrate and small effusion on the left. Coarsened int erstitium stable. No pneumothorax. Chronic arthropathy of the shoulders. Heart size stable. IMPRESSION: Bilateral infiltrate and small left effusion are stable. Interstitial pneumonitis or viet ous congestion in the differential diagnosis.
--- NOTE | 2017-09-29 09:57 | P.PN ---
Subjective Progress Note Date: 09/29/17 Principal diagnosis: Alcohol withdrawal Extubated earlier this morning. Awake. Alert self time and place. Slightly drowsy. Afebrile. No bleeding. Hemoglobin stable. Denies abdominal pain. Objective - Vital Signs Vital signs: Vital Signs Temp 97.8 F 09/29/17 08:00 Pulse 79 09/29/17 09:00 Resp 21 09/29/17 09:00 BP 157/102 09/29/17 09:00 Pulse Ox 100 09/29/17 09:00 Intake & Output 09/28/17 09/29/17 09/29/17 18:59 06:59 18:59 Intake Total 1540 870 210.717 Output Total 2145 1125 800 Balance -605 -255 -589.283 Weight 83 kg Intake: IV 1190 530 170 Ampicillin-Sulbactam 1.5 100 50 50 gm In Sodium Chloride 0.9 % 50 ml @ 100 mls/hr IVPB Q6HR [facility] Rx#:[id number] Sodium Chloride 0.45% 1, 1090 480 120 000 ml @ 40 mls/hr IV . Q24H [facility] Rx#:[id number] Intake, IV Titration 200 100 30.717 Amount Propofol 1,000 mg In 200 100 30.717 Empty Bag 1 bag @ Titrate IV .Q0M [facility] Rx#: [id number] Tube Feeding 80 150 10 Other 70 90 Output: Gastric Drainage 150 Urine 1995 1125 800 Other: Voiding Method Indwelling Catheter Indwelling Catheter # Bowel Movements 0 - Exam General appearance: The patient is alert and no acute distress slightly drowsy. HET: Head is normocephalic and atraumatic. Pupils are equal and reactive. Oropharynx is clear without lesions. Neck: Supple without lymphadenopathy. Trachea midline. Heart: S1 S2. Regular rate and rhythm. Lungs: No crackles or wheezes are heard. Abdomen: Soft, nontender, nondistended with bowel sounds. No peritoneal signs. No palpable organomegaly or masses. Extremities: Normal skin color and turgor. No cyanosis, rash, ulceration, clubbing, or edema. Radial and pedal pulses are 2/4 bilaterally. Blackwell with clear ingrid urine. Neurological: No focal deficits. - Labs CBC & Chem 7: 09/29/17 03:48 09/29/17 03:48 Labs: Abnormal Lab Results - Last 24 Hours (Table) 09/28/17 09/29/17 09/29/17 Range/Units 12:00 01:18 03:48 WBC 14.9 H (3.8-10.6) k/uL RDW 16.7 H (11.5-15.5) % Plt Count 147 L (150-450) k/uL Neutrophils # (Manual) 13.50 H (1.3-7.7) k/uL Lymphocytes # (Manual) 0.89 L (1.0-4.8) k/uL ABG pH (7.35-7.45) ABG HCO3 (21-25) mmol/L ABG Total CO2 (19-24) mmol/L ABG O2 Saturation (94-97) % Potassium (3.5-5.1) mmol/L Creatinine (0.66-1.25) mg/dL Glucose (74-99) mg/dL POC Glucose (mg/dL) 146 H 123 H (75-99) mg/dL Calcium (8.4-10.2) mg/dL ALT (21-72) U/L Total Protein (6.3-8.2) g/dL Albumin (3.5-5.0) g/dL 09/29/17 09/29/17 Range/Units 03:48 04:30 WBC (3.8-10.6) k/uL RDW (11.5-15.5) % Plt Count (150-450) k/uL Neutrophils # (Manual) (1.3-7.7) k/uL Lymphocytes # (Manual) (1.0-4.8) k/uL ABG pH 7.50 H (7.35-7.45) ABG HCO3 31 H (21-25) mmol/L ABG Total CO2 32 H (19-24) mmol/L ABG O2 Saturation 98.1 H (94-97) % Potassium 5.4 H (3.5-5.1) mmol/L Creatinine 0.60 L (0.66-1.25) mg/dL Glucose 133 H (74-99) mg/dL POC Glucose (mg/dL) (75-99) mg/dL Calcium 7.4 L (8.4-10.2) mg/dL ALT 16 L (21-72) U/L Total Protein 5.8 L (6.3-8.2) g/dL Albumin 2.8 L (3.5-5.0) g/dL Microbiology - Last 24 Hours (Table) 09/26/17 07:00 Gram Stain - Final Sputum Sputum Culture - Final 09/26/17 07:37 Blood Culture - Preliminary Blood No Growth after 48 hours Assessment and Plan (1) Coffee ground emesis Narrative/Plan: Alcohol gastritis no evidence of melena or hematochezia. Mild component of acute blood loss anemia. History of underlying GERD. Current Visit: Yes Status: Acute Code(s): K92.0 - HEMATEMESIS SNOMED Code( s): 553447081 (2) Alcohol withdrawal Narrative/Plan: Altered mentation secondary to delirium tremens alcohol withdrawal history of EtOH abuse. Current Visit: Yes Status: Acute Code(s): F10.239 - ALCOHOL DEPENDENCE WITH WITHDRAWAL, UNSPECIFIED SNOMED Code(s): 787729847 (3) Respiratory failure Narrative/Plan: Acute hypoxic respiratory failure intubation possible stridor possible epiglottitis at time of intubation Current Visit: Yes Status: Acute Code(s): J96.90 - RESPIRATORY FAILURE, UNSP , UNSP W HYPOXIA OR HYPERCAPNIA SNOMED Code(s): 769896355 (4) ETOH abuse Current Visit: Yes Status: Chronic Code(s): F10.10 - ALCOHOL ABUSE, UNCOMPLICATED SNOMED Code(s): 89157578 (5) Alcohol intoxication Current Visit: No Status: Acute Code(s): F10.129 - ALCOHOL ABUSE WITH INTOXICATION, UNSPECIFIED SNOMED Code(s): 13165027 Plan: 1. Continue GI prophylaxis. We'll check ammonia level. Initiation of diet slowly and advance as tolerated. Inpatient EGD not planned at this time but contingent on clinical course. We'll continue to follow with you. Assessment and plan a care discussed with Dr. Henson
[2017-09-29 12:15] LABS: Glucose,Whole Blood 118 mg/dL (75-99)
[2017-09-29] MEDS: SODIUM CHLORIDE 0.45% 1,000 ML IV SCH (12:23)
--- NOTE | 2017-09-29 13:20 | P.PN ---
Subjective Progress Note Date: 09/29/17 57-year-old male who was seen in the emergency department with possible alcohol withdrawal. He apparently drinks about a fifth of alcohol per day. He drank last about 18 hours ago. He apparently was feeling very shaky with persistent nausea vomiting. He also was found have some coffee ground emesis. The patient was also noted to have some respiratory difficulty and also some possible stridor. It's not clear whether or not stridor began in the emergency room or preceded the ER visit. Anyway, the ER physician attempted to intubate the patient for declining respiratory status and was unable to do so. He told me on the phone that the epiglottis was swollen but not kebede-red such as infectious epiglottitis. Anyway, he was finally able to intubated with a 6-1/ 2 tube. This may have been somewhat of a traumatic intubation. The patient was fluid resuscitated in the emergency room and transferred up to the ICU. Currently, the patient's on the volume assist control mode, rate is 14, tidal volume is 500, FiO2 is now 50% previously 100% and PEEP of 5. Arterial blood gases on 100% show a PaO2 of greater than 400, a PaCO2 of 59 and a pH 7.36. The patient's currently on propofol at 35 mics per kilogram per minute and a saline IV at 150. Chest x-ray here in the ICU was without abnormality. The patient will be placed on Decadron for airway edema. The patient was also placed on DuoNeb's every 4 [id number]. Labs x-rays and other testing is ordered for the morning. On today's evaluation of 09/27/2017, the patient remains intubated on a mechanical ventilator. The patient is an assist-control mode at the rate of 14 , tidal volume of 500, FiO2 of 50% and a PEEP of 5. I reviewed the chest x-ray from today. There is development of bilateral lower lobe pulmonary infiltrates most on the left and there is also some hazy infiltration of the left lung. ET tube is in a good location. The patient is having rest or secretions minimal at this point in time. He is covered with antibiotics and currently is on Unasyn. He is sedated with Diprivan and is calm and comfortable. No significant agitation at this point. Diprivan is running at the rate of 40 mics per KG per minute. He is also getting Ativan on a when necessary basis. He is on a CIWA scale, receiving Ativan every hours, 1-2 hours as needed. IV fluids is in the form of half normal saline at the rate of 150 mL an hour. His urine output is adequate. He has peripheral lines a total of 3. He is also on Decadron 4 questionable epiglottitis and he is also on Benadryl. As mentioned earlier intubation itself was somewhat traumatic. NG tube is in place and the output was approximately 50 mL over night. The patient is afebrile. No other significant events overnight. No seizure activity. On 09/28/2017 I'm seeing this patient for a follow-up. He remains intubated on a mechanical ventilator. A brief sedation holiday was given and the patient was quite agitated and restless and thrashing and I think there may be a component of the delirium tremens. Based on that, the patient placed back on propofol and currently is well sedated. We'll try to get another sedation holiday with the next 24 hours. Meanwhile, is being treated for an aspiration pneumonia. He is remains on an assist-control mode at the rate of 14, tidal volume of 500 and FiO2 of 35% and a PEEP of 5. Chest x-ray shows improvement in a lower lobe pulmonary infiltrate and the patient remains on IV Unasyn. No fever or chills. No night sweats. No significant orotracheal secretions. The blood gases from today showed a pH of 7.47 with a pCO2 of 40 and pO2 114. Renal function remains stable with a creatinine of 0.5. The net fluid balance is positive for 0.5 L on 09/27 thousand and 18 and possibly 1.2 L on 09/28/2017. He is hemodynamically stable. He is receiving half-normal saline at the rate of 150 mL an hour. The patient remains nothing by mouth. Enteral feeding with tube feeds will be started today. He remains on IV Protonix. Hemodynamically stable. On 09/29/2017, the patient is being seen in follow-up. As mentioned earlier, this sedation holiday was given to this patient yesterday failed that the patient was agitated and he was not following commands. I thought he was still having a component of delirium tremens. Based on that, the procedure was aborted and another sedation holiday was given this morning which were quite fine as the patient was found to be much more alert and awake and following some simple commands. Note that the patient was intubated by #6.5 ET tube. The cuff leak test was positive and the patient showed adequate leaking around the orotracheal tube. He was on assist control mode at the rate of 14, tidal volume of 500 with an FiO2 of 35% and a PEEP of 5. Chest x-ray showed mild pulmonary asked her congestion and the patient is on IV Unasyn. Based on that, the patient was taken off the propofol. The patient was given IV Lasix. When he parameters were checked and following that a short smoked is breathing trial was done for approximately 5-10 minutes with a pressure support of 5 and PEEP of 5 and subsequently patient was extubated. He tolerated the extubation well without any major difficulties. Enteral feeding was discontinued and the NG tube was also removed. He is currently hemodynamically stable. He is receiving half-normal saline at rate of 40 mL an hour. He is on IV Protonix. He is on IV Unasyn. Deepali is also on board for any signs of delirium tremens. No other significant events over the past 24 hours. Objective - Vital Signs Vital signs: Vital Signs Temp 97.4 F L 09/29/17 12:00 Pulse 79 09/29/17 12:00 Resp 21 09/29/17 12:00 BP 139/91 09/29/17 12:00 Pulse Ox 98 09/29/17 12:00 Intake & Output 09/28/17 09/29/17 09/29/17 18:59 06:59 18:59 Intake Total 1540 870 330.717 Output Total 2145 1125 3200 Balance -605 -255 -2869.283 Weight 83 kg Intake: IV 1190 530 290 Ampicillin-Sulbactam 1.5 100 50 50 gm In Sodium Chloride 0.9 % 50 ml @ 100 mls/hr IVPB Q6HR [facility] Rx#:[id number] Sodium Chloride 0.45% 1, 1090 480 240 000 ml @ 40 mls/hr IV . Q24H [facility] Rx#:[id number] Intake, IV Titration 200 100 30.717 Amount Propofol 1,000 mg In 200 100 30.717 Empty Bag 1 bag @ Titrate IV .Q0M [facility] Rx#: [id number] Tube Feeding 80 150 10 Other 70 90 Output: Gastric Drainage 150 Urine 1995 1125 3200 Other: Voiding Method Indwelling Catheter Indwelling Catheter Indwelling Catheter # Bowel Movements 0 - Exam Patient is extubated and is calm and comfortable likely distress. Orotracheal and orogastric tube are both removed. Head exam was generally normal. There was no scleral icterus or corneal arcus. Mucous membranes were moist. Neck was supple and without jugular venous distension, thyromegaly, or carotid bruits. Carotids were easily palpable bilaterally. There was no adenopathy. Lungs sounds are diminished bilaterally along with some few scattered expiratory wheezes and few crackles Cardiac exam revealed the PMI to be normally situated and sized. The rhythm was regular and no extrasystoles were noted during several minutes of auscultation. The first and second heart sounds were normal and physiologic splitting of the second heart sound was noted. There were no murmurs, rubs, clicks, or gallops. Abdominal exam revealed normal bowel sounds. The abdomen was soft, non-tender, and without masses, organomegaly, or appreciable enlargement of the abdominal aorta. Examination of the extremities revealed easily palpable radial, femoral and pedal pulses. There was no cyanosis, clubbing or edema. Examination of the skin revealed no evidence of significant rashes, suspicious appearing nevi or other concerning lesions. Neurologic the patient is awake and alert and is following commands and moving all 4 extremities without any limitation. Cranial nerves are also intact. - Labs CBC & Chem 7: 09/29/17 03:48 09/29/17 03:48 Labs: Abnormal Lab Results - Last 24 Hours (Table) 09/29/17 09/29/17 09/29/17 Range/Units 01:18 03:48 03:48 WBC 14.9 H (3.8-10.6) k/uL RDW 16.7 H (11.5-15.5) % Plt Count 147 L (150-450) k/uL Neutrophils # (Manual) 13.50 H (1.3-7.7) k/uL Lymphocytes # (Manual) 0.89 L (1.0-4.8) k/uL ABG pH (7.35-7.45) ABG HCO3 (21-25) mmol/L ABG Total CO2 (19-24) mmol/L ABG O2 Saturation (94-97) % Potassium 5.4 H (3.5-5.1) mmol/L Creatinine 0.60 L (0.66-1.25) mg/dL Glucose 133 H (74-99) mg/dL POC Glucose (mg/dL) 123 H (75-99) mg/dL Calcium 7.4 L (8.4-10.2) mg/dL ALT 16 L (21-72) U/L Total Protein 5.8 L (6.3-8.2) g/dL Albumin 2.8 L (3.5-5.0) g/dL 09/29/17 09/29/17 Range/Units 04:30 12:12 WBC (3.8-10.6) k/uL RDW (11.5-15.5) % Plt Count (150-450) k/uL Neutrophils # (Manual) (1.3-7.7) k/uL Lymphocytes # (Manual) (1.0-4.8) k/uL ABG pH 7.50 H (7.35-7.45) ABG HCO3 31 H (21-25) mmol/L ABG Total CO2 32 H (19-24) mmol/L ABG O2 Saturation 98.1 H (94-97) % Potassium (3.5-5.1) mmol/L Creatinine (0.66-1.25) mg/dL Glucose (74-99) mg/dL POC Glucose (mg/dL) 118 H (75-99) mg/dL Calcium (8.4-10.2) mg/dL ALT (21-72) U/L Total Protein (6.3-8.2) g/dL Albumin (3.5-5.0) g/dL Microbiology - Last 24 Hours (Table) 09/26/17 07:37 Blood Culture - Preliminary Blood No Growth after 72 hours 09/26/17 07:00 Gram Stain - Final Sputum Sputum Culture - Final Assessment and Plan Plan: 1 Altered mentation secondary to delirium tremens/alcohol withdrawal, recovered and the patient is currently off sedation and mentation is gradually improving. 2 acute hypoxic respiratory failure, questionable stridor at a time of the intubation, questionable epiglottitis at time of intubation. The patient was extubated today without any major difficulties. A spontaneous breathing trial was given. Weaning parameters were checked. Patient was extubated. 3 acute bilateral lower lobe pneumonia, possible aspiration, currently on Unasyn , improving 4 History of heavy alcohol abuse 5 COPD from previous tobacco use. 6 History of seizure disorder 7 History of DJD 8 History of GERD 9 History of diverticular disease 10 hypokalemia, and hypomagnesemia, recovered 11 coffee-ground gastric aspirate, questionable low-grade upper GI bleed. Plan No post extubation stridor. The patient is being watched very closely in the ICU. Postextubation. The patient was given a dose of Lasix 40 mg IV push. We' ll introduce diet gradually as the patient is confirmed to be stable. Monitor mental status and look for any signs of the and tremors and treat accordingly. We'll continue to follow. 13 IV Protonix for GI prophylaxis. Continue subcu Lovenox. Ativan as needed. We'll follow. There is a critically care evaluation and extubation process took more than 30 minutes. Time with Patient: Greater than 30
[2017-09-29 17:49] LABS: Glucose,Whole Blood 150 mg/dL (75-99)
--- NOTE | 2017-09-29 18:19 | PN ---
PROGRESS NOTE DATE OF SERVICE: 09/29/2017 HISTORY OF PRESENT ILLNESS: This 57-year-old gentleman who was admitted with acute respiratory failure with alcohol withdrawal and delirium tremens extubated today. The patient is still confused and patient is mumbling. The patient was also on a CIWA protocol. Dr. Flynn is following the patient closely. Patient being closely monitored in ICU at this time. The patient unable to give a coherent history at this time. The Ativan p.r.n. as noted. Patient also was found to be slightly hypertensive previously. PAST MEDICAL HISTORY: Reviewed. REVIEW OF SYSTEMS: Could not be taken, as mentioned earlier. CURRENT MEDICATIONS: Reviewed include current medications are reviewed: 1. Tylenol suppository. 2. DuoNeb q.i.d. and p.r.n. 3. Unasyn 1.5 mg. 4. Decadron 6 mg IV q.6 hours. 5. Benadryl. 6. Lovenox. 7. Ativan. 8. Replacement protocol. 10.Vitamin B1. PHYSICAL EXAM: The patient is drowsy, confused. Pulse is 81, blood pressure 140/81, respiratory rate 14, temperature normal, pulse ox 94% on 2 L. HEENT conjunctivae normal. Oral mucosa moist. Neck is no jugular venous distention. No carotid bruit. No lymph enlargement. Cardiovascular System: S1, S2 muffled. Respirations: Breath sounds diminished in the bases. A few scattered rhonchi and crackles. ABDOMEN: Soft, nontender. Legs are no edema. No swelling. Central nervous system: Diffusely weak. LABS: WBC 14.9, hemoglobin 14.3. ASSESSMENT: 1. Acute alcohol withdrawal with acute hypoxic respiratory failure status post mechanical ventilation. 2. Change in mental status, acute metabolic encephalopathy secondary from alcohol withdrawal and delirium tremens. 3. History of alcoholic abuse. 5. History of alcoholic gastritis. 6. History of alcohol-withdrawal seizures in the past. 7. History of diverticular disease. RECOMMENDATIONS AND DISCUSSION: Recommend to continue current management. Continue symptomatic treatment. Continue with CIWA protocol and continue with Ativan p.r.n. The blood pressure is stable at this time. Continue with ensuring oxygenation. DVT prophylaxis. The patient is on Lovenox. Empiric antibiotics in the form of Unasyn. Thiamin. Prognosis guarded because of multiple complex medical issues. Further recommendations to follow. MMODL / IJN: [id number] / MTDD
[2017-09-29 20:53] LABS: Glucose,Whole Blood 135 mg/dL (75-99)
[2017-09-29] MEDS: INSULIN ASPART 100 UNIT/ML 1 ML 10 ML VIAL SQ SCH (21:48)
[2017-09-29] MEDS: QUEtiapine 100 MG TAB PO SCH (21:48)
[2017-09-30] MEDS: diphenhydrAMINE 50 MG/ML 1 ML VIAL IVP SCH ×2 (02:00→08:26)
[2017-09-30] MEDS: IPRATROPIUM-ALBUTEROL 3 ML NEB INHALATION SCH ×5 (04:07→19:18)
[2017-09-30 04:35] LABS: Anisocytosis Slight; Basophils % (A) 0 %; Eosinophils % (A) 0 %; HCT 41.5 % (39.0-53.0); HGB 13.8 gm/dL (13.0-17.5); Lymphocytes # (A) 0.5 k/uL (1.0-4.8); Lymphocytes % (A) 6 %; MCH 31.5 pg (25.0-35.0); MCHC 33.3 g/dL (31.0-37.0); MCV 94.7 fL (80.0-100.0); Mean Platelet Volume 7.7; Monocytes # (A) 0.5 k/uL (0-1.0); Monocytes % (A) 5 %; Neutrophils # (A) 7.9 k/uL (1.3-7.7); Neutrophils % (A) 87 %; Platelet Count 165 k/uL (150-450); RBC 4.39 m/uL (4.30-5.90); RDW 16.4 % (11.5-15.5); WBC 9.2 k/uL (3.8-10.6)
[2017-09-30 04:44] LABS: ALT 25 U/L (21-72); AST 25 U/L (17-59); Albumin 2.9 g/dL (3.5-5.0); Alkaline Phosphatase 59 U/L (38-126); Anion Gap 11 mmol/L; Blood Urea Nitrogen 16 mg/dL (9-20); Calcium 7.5 mg/dL (8.4-10.2); Carbon Dioxide 31 mmol/L (22-30); Chloride 95 mmol/L (98-107); Glucose 131 mg/dL (74-99); Magnesium 1.6 mg/dL (1.6-2.3); Phosphorus 3.6 mg/dL (2.5-4.5); Sodium 137 mmol/L (137-145); Total Bilirubin 0.7 mg/dL (0.2-1.3); Total Protein 5.4 g/dL (6.3-8.2)
[2017-09-30 04:52] LABS: Potassium 2.9 mmol/L (3.5-5.1)
[2017-09-30] MEDS: POTASSIUM CHLORIDE ER 20 MEQ TAB.ER PO SCH ×3 (06:00→08:25)
[2017-09-30] MEDS: DEXAMETHASONE SOD PHOSPHATE 4 MG/ML 1 ML VIAL IV SCH (06:14)
[2017-09-30] MEDS: MAGNESIUM SULFATE-D5W PMX 1 GM in DEXTROSE/WATER 1 100ML.BAG IVPB SCH ×2 (06:14→07:03)
[2017-09-30 06:49] LABS: Glucose,Whole Blood 139 mg/dL (75-99)
[2017-09-30] MEDS: AMPICILLIN-SULBACTAM 1.5 GM in SODIUM CHLORIDE 0.9% 50 ML IVPB SCH (07:03)
[2017-09-30] MEDS: INSULIN ASPART 100 UNIT/ML 1 ML 10 ML VIAL SQ SCH ×2 (07:04→11:28)
[2017-09-30] MEDS: ENOXAPARIN 40 MG/0.4 ML SYRINGE SQ SCH (08:24)
[2017-09-30] MEDS: PANTOPRAZOLE 40 MG/10 ML VIAL IVP SCH (08:24)
[2017-09-30] MEDS: THIAMINE 100 MG/ML 2 ML VIAL IVP SCH (08:25)
--- NOTE | 2017-09-30 08:55 | XR ---
EXAMINATION TYPE: XR chest 1V portable DATE OF EXAM: 09/30/2017 COMPARISON: 09/29/2017 HISTORY: Tube removal TECHNIQUE: Single frontal view of the chest is obtained. FINDINGS: ET and NG tubes have been removed. Left lower lobe infiltrate and small effusion noted. No pneumothorax. Arthropathy of the shoulders. Atherosclerotic change aorta. No overt failure. Underlyi ng COPD suspected. IMPRESSION: Stable left lower lobe infiltrate and small effusion
[2017-09-30] MEDS ORDERED: Potassium Replacement Protocol 1 EACH MISC MISCELLANE PRN (09:16)
[2017-09-30] MEDS: LORazepam 2 MG/ML INJ IV PRN ×4 (09:19→19:24)
[2017-09-30 09:58] VITALS: BMI 29.9
[2017-09-30] MEDS ORDERED: POTASSIUM CHLORIDE ER 20 MEQ TAB.ER PO SCH (10:00)
[2017-09-30 11:04] LABS: Glucose,Whole Blood 123 mg/dL (75-99)
[2017-09-30] MEDS: AMOXIC-POT CLAV 875-125MG 1 EACH TAB PO SCH ×2 (11:17→20:48)
[2017-09-30] MEDS: SODIUM CHLORIDE 0.45% 1,000 ML IV SCH (11:26)
--- NOTE | 2017-09-30 11:43 | P.PN ---
Subjective Progress Note Date: 09/30/17 Principal diagnosis: Alcohol withdrawal Transfer to medical floor today. Tolerating diet. No bleeding. Denies abdominal pain. Hemoglobin 13.8. Objective - Vital Signs Vital signs: Vital Signs Temp 98.2 F 09/30/17 08:00 Pulse 89 09/30/17 09:00 Resp 12 09/30/17 09:00 BP 111/77 09/30/17 09:00 Pulse Ox 92 L 09/30/17 09:00 Intake & Output 09/29/17 09/30/17 09/30/17 18:59 06:59 18:59 Intake Total 780.717 850 100 Output Total 4360 1175 120 Balance -3579.283 -325 -20 Weight 84 kg 84 kg Intake: IV 740 850 100 Ampicillin-Sulbactam 1.5 100 100 gm In Sodium Chloride 0.9 % 50 ml @ 100 mls/hr IVPB Q6HR [facility] Rx#:[id number] Magnesium Sulfate-D5w Pmx 200 1 gm In Dextrose/Water 1 100ml.bag @ 100 mls/hr IVPB Q1H [facility] Rx#: [id number] Sodium Chloride 0.45% 1, 520 440 80 000 ml @ 40 mls/hr IV . Q24H [facility] Rx#:[id number] normal saline 0.9% at KVO 120 110 20 Intake, IV Titration 30.717 Amount Propofol 1,000 mg In 30.717 Empty Bag 1 bag @ Titrate IV .Q0M [facility] Rx#: [id number] Tube Feeding 10 Output: Urine 4360 1175 120 Other: Voiding Method Indwelling Catheter Indwelling Catheter Indwelling Catheter # Bowel Movements 1 1 - Exam General appearance: The patient is alert, oriented, in no acute distress. HET: Head is normocephalic and atraumatic. Pupils are equal and reactive. Oropharynx is clear without lesions. Neck: Supple without lymphadenopathy. Trachea midline. Heart: S1 S2. Regular rate and rhythm. Lungs: No crackles or wheezes are heard. Abdomen: Soft, nontender, nondistended with bowel sounds. No peritoneal signs. No palpable organomegaly or masses. Extremities: Normal skin color and turgor. No cyanosis, rash, ulceration, clubbing, or edema. Radial and pedal pulses are 2/4 bilaterally. Neurological: No focal deficits. Strength and sensation are grossly intact. - Labs CBC & Chem 7: 09/30/17 03:58 09/30/17 03:58 Labs: Abnormal Lab Results - Last 24 Hours (Table) 09/29/17 09/29/17 09/29/17 Range/Units 12:12 17:47 20:51 RDW (11.5-15.5) % Neutrophils # (1.3-7.7) k/uL Lymphocytes # (1.0-4.8) k/uL Potassium (3.5-5.1) mmol/L Chloride (98-107) mmol/L Carbon Dioxide (22-30) mmol/L Creatinine (0.66-1.25) mg/dL Glucose (74-99) mg/dL POC Glucose (mg/dL) 118 H 150 H 135 H (75-99) mg/dL Calcium (8.4-10.2) mg/dL Total Protein (6.3-8.2) g/dL Albumin (3.5-5.0) g/dL 09/30/17 09/30/17 09/30/17 Range/Units 03:58 03:58 06:47 RDW 16.4 H (11.5-15.5) % Neutrophils # 7.9 H (1.3-7.7) k/uL Lymphocytes # 0.5 L (1.0-4.8) k/uL Potassium 2.9 L* (3.5-5.1) mmol/L Chloride 95 L (98-107) mmol/L Carbon Dioxide 31 H (22-30) mmol/L Creatinine 0.60 L (0.66-1.25) mg/dL Glucose 131 H (74-99) mg/dL POC Glucose (mg/dL) 139 H (75-99) mg/dL Calcium 7.5 L (8.4-10.2) mg/dL Total Protein 5.4 L (6.3-8.2) g/dL Albumin 2.9 L (3.5-5.0) g/dL 09/30/17 Range/Units 11:00 RDW (11.5-15.5) % Neutrophils # (1.3-7.7) k/uL Lymphocytes # (1.0-4.8) k/uL Potassium (3.5-5.1) mmol/L Chloride (98-107) mmol/L Carbon Dioxide (22-30) mmol/L Creatinine (0.66-1.25) mg/dL Glucose (74-99) mg/dL POC Glucose (mg/dL) 123 H (75-99) mg/dL Calcium (8.4-10.2) mg/dL Total Protein (6.3-8.2) g/dL Albumin (3.5-5.0) g/dL Microbiology - Last 24 Hours (Table) 09/26/17 07:37 Blood Culture - Preliminary Blood No Growth after 96 hours Assessment and Plan (1) Coffee ground emesis Narrative/Plan: Alcohol gastritis no evidence of melena or hematochezia. Mild component of acute blood loss anemia. History of underlying GERD. Current Visit: Yes Status: Acute Code(s): K92.0 - HEMATEMESIS SNOMED Code( s): 720407871 (2) Alcohol withdrawal Narrative/Plan: Altered mentation secondary to delirium tremens alcohol withdrawal history of EtOH abuse. Current Visit: Yes Status: Acute Code(s): F10.239 - ALCOHOL DEPENDENCE WITH WITHDRAWAL, UNSPECIFIED SNOMED Code(s): 536059938 (3) Respiratory failure Narrative/Plan: Acute hypoxic respiratory failure intubation possible stridor possible epiglottitis at time of intubation. Status post extubation resolved. Current Visit: Yes Status: Acute Code(s): J96.90 - RESPIRATORY FAILURE, UNSP , UNSP W HYPOXIA OR HYPERCAPNIA SNOMED Code(s): 797502746 (4) ETOH abuse Current Visit: Yes Status: Chronic Code(s): F10.10 - ALCOHOL ABUSE, UNCOMPLICATED SNOMED Code(s): 70963589 (5) Alcohol intoxication Current Visit: No Status: Acute Code(s): F10.129 - ALCOHOL ABUSE WITH INTOXICATION, UNSPECIFIED SNOMED Code(s): 42127021 Plan: 1. Protonix 40 mg daily. Diet as tolerated. Alcohol abstinence reinforced. We'll follow as needed. Assessment and plan a care discussed with Dr. Henson
--- NOTE | 2017-09-30 12:37 | P.PN ---
Subjective Progress Note Date: 09/30/17 Principal diagnosis: Altered mentation secondary to delirium tremens/alcohol withdrawal, recovered Progress Note Date: 09/29/17 57-year-old male who was seen in the emergency department with possible alcohol withdrawal. He apparently drinks about a fifth of alcohol per day. He drank last about 18 hours ago. He apparently was feeling very shaky with persistent nausea vomiting. He also was found have some coffee ground emesis. The patient was also noted to have some respiratory difficulty and also some possible stridor. It's not clear whether or not stridor began in the emergency room or preceded the ER visit. Anyway, the ER physician attempted to intubate the patient for declining respiratory status and was unable to do so. He told me on the phone that the epiglottis was swollen but not kebede-red such as infectious epiglottitis. Anyway, he was finally able to intubated with a 6-1/ 2 tube. This may have been somewhat of a traumatic intubation. The patient was fluid resuscitated in the emergency room and transferred up to the ICU. Currently, the patient's on the volume assist control mode, rate is 14, tidal volume is 500, FiO2 is now 50% previously 100% and PEEP of 5. Arterial blood gases on 100% show a PaO2 of greater than 400, a PaCO2 of 59 and a pH 7.36. The patient's currently on propofol at 35 mics per kilogram per minute and a saline IV at 150. Chest x-ray here in the ICU was without abnormality. The patient will be placed on Decadron for airway edema. The patient was also placed on DuoNeb's every 4 [id number]. Labs x-rays and other testing is ordered for the morning. On today's evaluation of 09/27/2017, the patient remains intubated on a mechanical ventilator. The patient is an assist-control mode at the rate of 14 , tidal volume of 500, FiO2 of 50% and a PEEP of 5. I reviewed the chest x-ray from today. There is development of bilateral lower lobe pulmonary infiltrates most on the left and there is also some hazy infiltration of the left lung. ET tube is in a good location. The patient is having rest or secretions minimal at this point in time. He is covered with antibiotics and currently is on Unasyn. He is sedated with Diprivan and is calm and comfortable. No significant agitation at this point. Diprivan is running at the rate of 40 mics per KG per minute. He is also getting Ativan on a when necessary basis. He is on a CIWA scale, receiving Ativan every hours, 1-2 hours as needed. IV fluids is in the form of half normal saline at the rate of 150 mL an hour. His urine output is adequate. He has peripheral lines a total of 3. He is also on Decadron 4 questionable epiglottitis and he is also on Benadryl. As mentioned earlier intubation itself was somewhat traumatic. NG tube is in place and the output was approximately 50 mL over night. The patient is afebrile. No other significant events overnight. No seizure activity. On 09/28/2017 I'm seeing this patient for a follow-up. He remains intubated on a mechanical ventilator. A brief sedation holiday was given and the patient was quite agitated and restless and thrashing and I think there may be a component of the delirium tremens. Based on that, the patient placed back on propofol and currently is well sedated. We'll try to get another sedation holiday with the next 24 hours. Meanwhile, is being treated for an aspiration pneumonia. He is remains on an assist-control mode at the rate of 14, tidal volume of 500 and FiO2 of 35% and a PEEP of 5. Chest x-ray shows improvement in a lower lobe pulmonary infiltrate and the patient remains on IV Unasyn. No fever or chills. No night sweats. No significant orotracheal secretions. The blood gases from today showed a pH of 7.47 with a pCO2 of 40 and pO2 114. Renal function remains stable with a creatinine of 0.5. The net fluid balance is positive for 0.5 L on 09/27 thousand and 18 and possibly 1.2 L on 09/28/2017. He is hemodynamically stable. He is receiving half-normal saline at the rate of 150 mL an hour. The patient remains nothing by mouth. Enteral feeding with tube feeds will be started today. He remains on IV Protonix. Hemodynamically stable. On 09/29/2017, the patient is being seen in follow-up. As mentioned earlier, this sedation holiday was given to this patient yesterday failed that the patient was agitated and he was not following commands. I thought he was still having a component of delirium tremens. Based on that, the procedure was aborted and another sedation holiday was given this morning which were quite fine as the patient was found to be much more alert and awake and following some simple commands. Note that the patient was intubated by #6.5 ET tube. The cuff leak test was positive and the patient showed adequate leaking around the orotracheal tube. He was on assist control mode at the rate of 14, tidal volume of 500 with an FiO2 of 35% and a PEEP of 5. Chest x-ray showed mild pulmonary asked her congestion and the patient is on IV Unasyn. Based on that, the patient was taken off the propofol. The patient was given IV Lasix. When he parameters were checked and following that a short smoked is breathing trial was done for approximately 5-10 minutes with a pressure support of 5 and PEEP of 5 and subsequently patient was extubated. He tolerated the extubation well without any major difficulties. Enteral feeding was discontinued and the NG tube was also removed. He is currently hemodynamically stable. He is receiving half-normal saline at rate of 40 mL an hour. He is on IV Protonix. He is on IV Unasyn. Ativan is also on board for any signs of delirium tremens. No other significant events over the past 24 hours. On 09/30/2017 patient seen in follow-up in the intensive care unit. He was successfully extubated yesterday, and is tolerating extubation very well, currently on 2 L per nasal cannula with O2 sat 90%. Awake, alert, oriented 3. Slight shakiness with his hands, but no evidence of delirium, agitation. He is tolerating full liquid diet, lung sounds are positive for a few scattered crackles and wheezes. His chest x-ray shows stable left lower lobe infiltrate and small pleural effusion. he is afebrile. Blood and urine cultures show no growth to date. Patient continues on IV Unasyn, this will be switched over to oral Augmentin today. Continues on nebulized treatments. Patient is stable, and can move out of the intensive care unit today to regular medical surgical floor. Objective - Vital Signs Vital signs: Vital Signs Temp 98.2 F 09/30/17 08:00 Pulse 78 09/30/17 11:58 Resp 12 09/30/17 09:00 BP 111/77 09/30/17 09:00 Pulse Ox 92 L 09/30/17 09:00 Intake & Output 09/29/17 09/30/17 09/30/17 18:59 06:59 18:59 Intake Total 780.717 850 100 Output Total 4360 1175 120 Balance -3579.283 -325 -20 Weight 84 kg 84 kg Intake: IV 740 850 100 Ampicillin-Sulbactam 1.5 100 100 gm In Sodium Chloride 0.9 % 50 ml @ 100 mls/hr IVPB Q6HR [facility] Rx#:[id number] Magnesium Sulfate-D5w Pmx 200 1 gm In Dextrose/Water 1 100ml.bag @ 100 mls/hr IVPB Q1H [facility] Rx#: [id number] Sodium Chloride 0.45% 1, 520 440 80 000 ml @ 40 mls/hr IV . Q24H [facility] Rx#:[id number] normal saline 0.9% at KVO 120 110 20 Intake, IV Titration 30.717 Amount Propofol 1,000 mg In 30.717 Empty Bag 1 bag @ Titrate IV .Q0M [facility] Rx#: [id number] Tube Feeding 10 Output: Urine 4360 1175 120 Other: Voiding Method Indwelling Catheter Indwelling Catheter Indwelling Catheter # Bowel Movements 1 1 - Exam Patient is extubated and is calm and comfortable likely distress. Orotracheal and orogastric tube are both removed. Head exam was generally normal. There was no scleral icterus or corneal arcus. Mucous membranes were moist. Neck was supple and without jugular venous distension, thyromegaly, or carotid bruits. Carotids were easily palpable bilaterally. There was no adenopathy. Lungs sounds are diminished bilaterally along with some few scattered expiratory wheezes and few crackles Cardiac exam revealed the PMI to be normally situated and sized. The rhythm was regular and no extrasystoles were noted during several minutes of auscultation. The first and second heart sounds were normal and physiologic splitting of the second heart sound was noted. There were no murmurs, rubs, clicks, or gallops. Abdominal exam revealed normal bowel sounds. The abdomen was soft, non-tender, and without masses, organomegaly, or appreciable enlargement of the abdominal aorta. Examination of the extremities revealed easily palpable radial, femoral and pedal pulses. There was no cyanosis, clubbing or edema. Examination of the skin revealed no evidence of significant rashes, suspicious appearing nevi or other concerning lesions. Neurologic the patient is awake and alert and is following commands and moving all 4 extremities without any limitation. Cranial nerves are also intact. - Labs CBC & Chem 7: 09/30/17 03:58 09/30/17 03:58 Labs: Abnormal Lab Results - Last 24 Hours (Table) 09/29/17 09/29/17 09/30/17 Range/Units 17:47 20:51 03:58 RDW 16.4 H (11.5-15.5) % Neutrophils # 7.9 H (1.3-7.7) k/uL Lymphocytes # 0.5 L (1.0-4.8) k/uL Potassium (3.5-5.1) mmol/L Chloride (98-107) mmol/L Carbon Dioxide (22-30) mmol/L Creatinine (0.66-1.25) mg/dL Glucose (74-99) mg/dL POC Glucose (mg/dL) 150 H 135 H (75-99) mg/dL Calcium (8.4-10.2) mg/dL Total Protein (6.3-8.2) g/dL Albumin (3.5-5.0) g/dL 09/30/17 09/30/17 09/30/17 Range/Units 03:58 06:47 11:00 RDW (11.5-15.5) % Neutrophils # (1.3-7.7) k/uL Lymphocytes # (1.0-4.8) k/uL Potassium 2.9 L* (3.5-5.1) mmol/L Chloride 95 L (98-107) mmol/L Carbon Dioxide 31 H (22-30) mmol/L Creatinine 0.60 L (0.66-1.25) mg/dL Glucose 131 H (74-99) mg/dL POC Glucose (mg/dL) 139 H 123 H (75-99) mg/dL Calcium 7.5 L (8.4-10.2) mg/dL Total Protein 5.4 L (6.3-8.2) g/dL Albumin 2.9 L (3.5-5.0) g/dL Microbiology - Last 24 Hours (Table) 09/26/17 07:37 Blood Culture - Preliminary Blood No Growth after 96 hours Assessment and Plan Plan: Assessment: 1 Altered mentation secondary to delirium tremens/alcohol withdrawal, recovered and the patient is currently off sedation and mentation is gradually improving. 2 acute hypoxic respiratory failure, questionable stridor at a time of the intubation, questionable epiglottitis at time of intubation. The patient was extubated today without any major difficulties. A spontaneous breathing trial was given. Weaning parameters were checked. Patient was extubated. 3 acute bilateral lower lobe pneumonia, possible aspiration, currently on Unasyn , improving 4 History of heavy alcohol abuse 5 COPD from previous tobacco use. 6 History of seizure disorder 7 History of DJD 8 History of GERD 9 History of diverticular disease 10 hypokalemia, and hypomagnesemia, recovered 11 coffee-ground gastric aspirate, questionable low-grade upper GI bleed. Plan: Continue encouraging deep breathing and coughing, increase activity as tolerated. We'll switch Unasyn to oral Augmentin today. Vital signs are stable , patient is afebrile, cultures showed no growth to date. No evidence of delirium, or agitation. Give 1 dose of IV Lasix today, she is stable to move out of the intensive care unit today we'll continue to follow I performed a history & physical examination of the patient and discussed their management with my nurse practitioner, Yennifer Irby. I reviewed the nurse practitioner's note and agree with the documented findings and plan of care. Lung sounds are some crackles and scattered wheezes. The findings and the impression was discussed with the patient. I attest to the documentation by the nurse practitioner. Time with Patient: Greater than 30
[2017-09-30] MEDS: QUEtiapine 100 MG TAB PO SCH (20:48)
--- NOTE | 2017-09-30 21:52 | PN ---
PROGRESS NOTE DATE OF SERVICE: 09/30/2017 This 57-year-old gentleman who was admitted with acute alcohol withdrawal and acute hypoxic respiratory failure had mechanical ventilation. Patient is extubated. He is mildly confused. No chest pain. No palpitations. No fever. On exam, alert and oriented x3. Pulse is 80, blood pressure 125/82, respiration 18, temperature 98.6, pulse ox 97% on room air. HEENT: Conjunctivae normal. NECK: No jugular venous distention. CARDIOVASCULAR SYSTEM: S1, S2 muffled. RESPIRATORY SYSTEM: Breath sounds diminished at the bases. A few scattered rhonchi and crackles. ABDOMEN: Soft, non-tender. LEGS: No edema. No swelling. NERVOUS SYSTEM: No focal deficit. LABS: Potassium 2.9. Other labs are noted. ASSESSMENT: 1. Acute alcohol withdrawal with acute hypoxic respiratory failure, status post mechanical ventilation. 2. Change in mental status, acute metabolic encephalopathy with alcohol withdrawal and early delirium tremens. 3. History of alcohol abuse. 4. Alcoholic gastritis. 5. Alcohol withdrawal seizures in the past. 6. History of diverticular disease. 7. Hypokalemia. RECOMMENDATIONS AND DISCUSSION: I recommend to continue current medication, continue with symptomatic treatment. Supplement potassium. Guarded prognosis. Further recommendations to follow. MMODL / IJN: [id number] /
[2017-09-30 22:33] VITALS: RESP 16
[2017-10-01] MEDS: LORazepam 2 MG/ML INJ IV PRN (07:19)
[2017-10-01] MEDS ORDERED: PANTOPRAZOLE 40 MG TABLET PO SCH (07:30)
[2017-10-01 07:58] LABS: ALT 32 U/L (21-72); AST 45 U/L (17-59); Albumin 2.6 g/dL (3.5-5.0); Alkaline Phosphatase 42 U/L (38-126); Anion Gap 8 mmol/L; Blood Urea Nitrogen 19 mg/dL (9-20); Calcium 7.7 mg/dL (8.4-10.2); Carbon Dioxide 29 mmol/L (22-30); Chloride 102 mmol/L (98-107); Glucose 88 mg/dL (74-99); Magnesium 1.7 mg/dL (1.6-2.3); Phosphorus 3.4 mg/dL (2.5-4.5); Sodium 139 mmol/L (137-145); Total Bilirubin 0.9 mg/dL (0.2-1.3); Total Protein 5.1 g/dL (6.3-8.2)
[2017-10-01 08:03] LABS: Anisocytosis Slight; Basophils % (A) 0 %; Eosinophils # (A) 0.1 k/uL (0-0.7); Eosinophils % (A) 1 %; HCT 40.5 % (39.0-53.0); HGB 13.6 gm/dL (13.0-17.5); Lymphocytes # (A) 2.3 k/uL (1.0-4.8); Lymphocytes % (A) 25 %; MCH 31.4 pg (25.0-35.0); MCHC 33.5 g/dL (31.0-37.0); MCV 93.7 fL (80.0-100.0); Mean Platelet Volume 8.5; Monocytes # (A) 0.9 k/uL (0-1.0); Monocytes % (A) 10 %; Neutrophils % (A) 63 %; Platelet Count 167 k/uL (150-450); RBC 4.32 m/uL (4.30-5.90); RDW 16.5 % (11.5-15.5); WBC 9.5 k/uL (3.8-10.6)
[2017-10-01 08:07] LABS: Potassium 3.9 mmol/L (3.5-5.1)
[2017-10-01 08:50] LABS: Toxic Vacuolation Present
[2017-10-01] MEDS: THIAMINE 100 MG/ML 2 ML VIAL IVP SCH (08:55)
[2017-10-01] MEDS: ENOXAPARIN 40 MG/0.4 ML SYRINGE SQ SCH (08:56)
[2017-10-01] MEDS: AMOXIC-POT CLAV 875-125MG 1 EACH TAB PO SCH (08:56)
[2017-10-01] MEDS: IPRATROPIUM-ALBUTEROL 3 ML NEB INHALATION SCH ×3 (09:30→17:21)
[2017-10-01] MEDS ORDERED: LORazepam 1 MG TAB PO PRN (12:16)
--- NOTE | 2017-10-01 14:27 | P.PN ---
Subjective Progress Note Date: 10/01/17 Principal diagnosis: Altered mentation secondary to delirium tremens/alcohol withdrawal, recovered Progress Note Date: 09/29/17 57-year-old male who was seen in the emergency department with possible alcohol withdrawal. He apparently drinks about a fifth of alcohol per day. He drank last about 18 hours ago. He apparently was feeling very shaky with persistent nausea vomiting. He also was found have some coffee ground emesis. The patient was also noted to have some respiratory difficulty and also some possible stridor. It's not clear whether or not stridor began in the emergency room or preceded the ER visit. Anyway, the ER physician attempted to intubate the patient for declining respiratory status and was unable to do so. He told me on the phone that the epiglottis was swollen but not kebede-red such as infectious epiglottitis. Anyway, he was finally able to intubated with a 6-1/ 2 tube. This may have been somewhat of a traumatic intubation. The patient was fluid resuscitated in the emergency room and transferred up to the ICU. Currently, the patient's on the volume assist control mode, rate is 14, tidal volume is 500, FiO2 is now 50% previously 100% and PEEP of 5. Arterial blood gases on 100% show a PaO2 of greater than 400, a PaCO2 of 59 and a pH 7.36. The patient's currently on propofol at 35 mics per kilogram per minute and a saline IV at 150. Chest x-ray here in the ICU was without abnormality. The patient will be placed on Decadron for airway edema. The patient was also placed on DuoNeb's every 4 [id number]. Labs x-rays and other testing is ordered for the morning. On today's evaluation of 09/27/2017, the patient remains intubated on a mechanical ventilator. The patient is an assist-control mode at the rate of 14 , tidal volume of 500, FiO2 of 50% and a PEEP of 5. I reviewed the chest x-ray from today. There is development of bilateral lower lobe pulmonary infiltrates most on the left and there is also some hazy infiltration of the left lung. ET tube is in a good location. The patient is having rest or secretions minimal at this point in time. He is covered with antibiotics and currently is on Unasyn. He is sedated with Diprivan and is calm and comfortable. No significant agitation at this point. Diprivan is running at the rate of 40 mics per KG per minute. He is also getting Ativan on a when necessary basis. He is on a CIWA scale, receiving Ativan every hours, 1-2 hours as needed. IV fluids is in the form of half normal saline at the rate of 150 mL an hour. His urine output is adequate. He has peripheral lines a total of 3. He is also on Decadron 4 questionable epiglottitis and he is also on Benadryl. As mentioned earlier intubation itself was somewhat traumatic. NG tube is in place and the output was approximately 50 mL over night. The patient is afebrile. No other significant events overnight. No seizure activity. On 09/28/2017 I'm seeing this patient for a follow-up. He remains intubated on a mechanical ventilator. A brief sedation holiday was given and the patient was quite agitated and restless and thrashing and I think there may be a component of the delirium tremens. Based on that, the patient placed back on propofol and currently is well sedated. We'll try to get another sedation holiday with the next 24 hours. Meanwhile, is being treated for an aspiration pneumonia. He is remains on an assist-control mode at the rate of 14, tidal volume of 500 and FiO2 of 35% and a PEEP of 5. Chest x-ray shows improvement in a lower lobe pulmonary infiltrate and the patient remains on IV Unasyn. No fever or chills. No night sweats. No significant orotracheal secretions. The blood gases from today showed a pH of 7.47 with a pCO2 of 40 and pO2 114. Renal function remains stable with a creatinine of 0.5. The net fluid balance is positive for 0.5 L on 09/27 thousand and 18 and possibly 1.2 L on 09/28/2017. He is hemodynamically stable. He is receiving half-normal saline at the rate of 150 mL an hour. The patient remains nothing by mouth. Enteral feeding with tube feeds will be started today. He remains on IV Protonix. Hemodynamically stable. On 09/29/2017, the patient is being seen in follow-up. As mentioned earlier, this sedation holiday was given to this patient yesterday failed that the patient was agitated and he was not following commands. I thought he was still having a component of delirium tremens. Based on that, the procedure was aborted and another sedation holiday was given this morning which were quite fine as the patient was found to be much more alert and awake and following some simple commands. Note that the patient was intubated by #6.5 ET tube. The cuff leak test was positive and the patient showed adequate leaking around the orotracheal tube. He was on assist control mode at the rate of 14, tidal volume of 500 with an FiO2 of 35% and a PEEP of 5. Chest x-ray showed mild pulmonary asked her congestion and the patient is on IV Unasyn. Based on that, the patient was taken off the propofol. The patient was given IV Lasix. When he parameters were checked and following that a short smoked is breathing trial was done for approximately 5-10 minutes with a pressure support of 5 and PEEP of 5 and subsequently patient was extubated. He tolerated the extubation well without any major difficulties. Enteral feeding was discontinued and the NG tube was also removed. He is currently hemodynamically stable. He is receiving half-normal saline at rate of 40 mL an hour. He is on IV Protonix. He is on IV Unasyn. Ativan is also on board for any signs of delirium tremens. No other significant events over the past 24 hours. On 09/30/2017 patient seen in follow-up in the intensive care unit. He was successfully extubated yesterday, and is tolerating extubation very well, currently on 2 L per nasal cannula with O2 sat 90%. Awake, alert, oriented 3. Slight shakiness with his hands, but no evidence of delirium, agitation. He is tolerating full liquid diet, lung sounds are positive for a few scattered crackles and wheezes. His chest x-ray shows stable left lower lobe infiltrate and small pleural effusion. he is afebrile. Blood and urine cultures show no growth to date. Patient continues on IV Unasyn, this will be switched over to oral Augmentin today. Continues on nebulized treatments. Patient is stable, and can move out of the intensive care unit today to regular medical surgical floor. On 10/01/2017 patient seen again in follow-up on medical surgical floor. Resting in bed, remains generally weak, his is at the bedside, and she is assisting him with his feeding. Denies any worsening dyspnea, reports mild anxiety, but no acute distress. No evidence of delirium, no shakiness. She has a loose congested cough, some scattered rhonchi noted. No wheezing. Remains on 2 L per nasal cannula with O2 sat 93%, vital signs are stable. Blood and sputum cultures are negative to date. Patient continues on oral Augmentin, otherwise bronchodilators. Increase patient's activity as tolerated , he will need a PT consult in regards to his severe generalized weakness. Objective - Vital Signs Vital signs: Vital Signs Temp 97.1 F L 10/01/17 07:51 Pulse 92 10/01/17 11:12 Resp 16 10/01/17 07:51 BP 118/82 10/01/17 07:51 Pulse Ox 93 L 10/01/17 07:51 Intake & Output 09/30/17 10/01/17 10/01/17 18:59 06:59 18:59 Intake Total 420 960 200 Output Total 120 Balance 300 960 200 Weight 84 kg 65.5 kg Intake: IV 420 480 0 Sodium Chloride 0.45% 1, 400 480 0 000 ml @ 40 mls/hr IV . Q24H [facility] Rx#:[id number] normal saline 0.9% at KVO 20 Oral 480 200 Output: Urine 120 Other: Voiding Method Urinal Urinal Urinal Diaper # Voids 1 # Bowel Movements 1 - Exam Patient is extubated and is calm and comfortable likely distress. Orotracheal and orogastric tube are both removed. Head exam was generally normal. There was no scleral icterus or corneal arcus. Mucous membranes were moist. Neck was supple and without jugular venous distension, thyromegaly, or carotid bruits. Carotids were easily palpable bilaterally. There was no adenopathy. Lungs sounds are diminished bilaterally along with some scattered rhonchi, no wheezes, patient has a loose nonproductive cough. Cardiac exam revealed the PMI to be normally situated and sized. The rhythm was regular and no extrasystoles were noted during several minutes of auscultation. The first and second heart sounds were normal and physiologic splitting of the second heart sound was noted. There were no murmurs, rubs, clicks, or gallops. Abdominal exam revealed normal bowel sounds. The abdomen was soft, non-tender, and without masses, organomegaly, or appreciable enlargement of the abdominal aorta. Examination of the extremities revealed easily palpable radial, femoral and pedal pulses. There was no cyanosis, clubbing or edema. Examination of the skin revealed no evidence of significant rashes, suspicious appearing nevi or other concerning lesions. Neurologic the patient is awake and alert and is following commands and moving all 4 extremities without any limitation. Cranial nerves are also intact. - Labs CBC & Chem 7: 10/01/17 07:14 10/01/17 07:14 Labs: Abnormal Lab Results - Last 24 Hours (Table) 10/01/17 10/01/17 Range/Units 07:14 07:14 RDW 16.5 H (11.5-15.5) % Calcium 7.7 L (8.4-10.2) mg/dL Total Protein 5.1 L (6.3-8.2) g/dL Albumin 2.6 L (3.5-5.0) g/dL Microbiology - Last 24 Hours (Table) 09/26/17 07:37 Blood Culture - Preliminary Blood No Growth after 120 hours Assessment and Plan Plan: Assessment: 1 Altered mentation secondary to delirium tremens/alcohol withdrawal, recovered and the patient is currently off sedation and mentation is gradually improving. 2 acute hypoxic respiratory failure, questionable stridor at a time of the intubation, questionable epiglottitis at time of intubation. The patient was extubated today without any major difficulties. A spontaneous breathing trial was given. Weaning parameters were checked. Patient was extubated. 3 acute bilateral lower lobe pneumonia, possible aspiration, currently on Unasyn , improving 4 History of heavy alcohol abuse 5 COPD from previous tobacco use. 6 History of seizure disorder 7 History of DJD 8 History of GERD 9 History of diverticular disease 10 hypokalemia, and hypomagnesemia, recovered 11 coffee-ground gastric aspirate, questionable low-grade upper GI bleed. Plan: Patient is doing well on medical surgical floor, no worsening dyspnea, no wheezing. Incentive spirometer to bedside, encourage pulmonary toileting. Increase activity as tolerated, patient is very generally weak. Will need physical therapy consult. Continue with current antibiotic coverage, continue nebulized treatments. I performed a history & physical examination of the patient and discussed their management with my nurse practitioner, Yennifer Irby. I reviewed the nurse practitioner's note and agree with the documented findings and plan of care. Lung sounds are some scattered rhonchi.. The findings and the impression was discussed with the patient. I attest to the documentation by the nurse practitioner. Time with Patient: Less than 30
--- NOTE | 2017-10-01 14:44 | DS ---
DISCHARGE SUMMARY FINAL DIAGNOSES: 1. Acute alcohol withdrawal and acute hypoxic respiratory failure, status post mechanical ventilation. 2. Change in mental status secondary to metabolic encephalopathy with alcohol withdrawal and also delirium tremens. 3. History of alcohol abuse. 4. Alcoholic gastritis. 5. Gait dysfunction. 6. Alcohol withdrawal seizures in the past. 7. History of diverticular disease. 8. Hypokalemia. DISCHARGED DISPOSITION: Patient will be discharged in a stable condition with guarded prognosis. Total time taken 35 minutes. Patient will be transferred [facility]. HISTORY OF PRESENT ILLNESS: This is a 57-year-old gentleman with a past medial history of multiple medical problems was admitted with alcohol withdrawal and acute hypoxic respiratory failure. Patient mechanically intubated, patient extubated. Patient was extremely weak and tremulous and tired and Ativan was continued. Patient improved significantly. Patient will be discharged in a stable condition with guarded prognosis. Vitals are stable. CARDIOVASCULAR SYSTEM: S1, S2. ABDOMEN: Soft. NERVOUS SYSTEM: No focal deficits. Discharge diet is cardiac diet. Activity limited until followup. Follow up with primary physician in 2-3 days. MEDICATIONS ARE: 1. Tylenol 650 q.6 p.r.n. 2. Ventolin 2 puffs q.i.d. p.r.n. 3. Augmentin 875 mg 1 p.o. b.i.d. 4. Symbicort 2 puffs b.i.d. 5. Folic acid 1 mg daily. 6. Lasix 40 mg p.o. daily. 7. Ativan 1 mg p.o. t.i.d. p.r.n. 8. Multivitamin 1 p.o. daily. 9. Seroquel 400 mg q.h.s. 10.Thiamine 100 mg p.o. daily. MMODL / IJN: [id number] /
[2017-10-01 16:28] VITALS: BP 110/79; TEMP 97.9
[2017-10-01 17:22] VITALS: PULSE 86
== END 2017-10-01 17:56 | DRG 896 ==
LOC: EC 03:48 → 6ICU 07:29 → 5MS5E 09-30 10:37
PROVIDERS: ADMIT Internal Medicine; ATTEND Internal Medicine
PROC: 5A1945Z Respiratory Ventilation, 24-96 Consecutive Hours (ICD-10-PCS; principal; 2017-09-26)
PROC: 0BH18EZ Insertion of Endotracheal Airway into Trachea, Via Natural or Artificial Opening Endoscopic (ICD-10-PCS; 2017-09-26)
PROC: 0D9670Z Drainage of Stomach with Drainage Device, Via Natural or Artificial Opening (ICD-10-PCS; 2017-09-26)
PROC: 3E0G76Z Introduction of Nutritional Substance into Upper GI, Via Natural or Artificial Opening (ICD-10-PCS; 2017-09-27)
DX: F10.231 Alcohol dependence with withdrawal delirium (principal); J96.01 Acute respiratory failure with hypoxia; J69.0 Pneumonitis due to inhalation of food and vomit; G93.41 Metabolic encephalopathy; K29.21 Alcoholic gastritis with bleeding; J05.10 Acute epiglottitis without obstruction; D62 Acute posthemorrhagic anemia; E83.42 Hypomagnesemia; J44.9 Chronic obstructive pulmonary disease, unspecified; Z78.1 Physical restraint status; T88.4XXA Failed or difficult intubation, initial encounter; E87.6 Hypokalemia; G40.909 Epilepsy, unspecified, not intractable, without status epilepticus; K21.9 Gastro-esophageal reflux disease without esophagitis; F32.9 Major depressive disorder, single episode, unspecified; F41.9 Anxiety disorder, unspecified; K57.90 Diverticulosis of intestine, part unspecified, without perforation or abscess without bleeding; R26.9 Unspecified abnormalities of gait and mobility; F17.200 Nicotine dependence, unspecified, uncomplicated; M19.91 Primary osteoarthritis, unspecified site; Z79.51 Long term (current) use of inhaled steroids; Z79.899 Other long term (current) drug therapy; Z96.653 Presence of artificial knee joint, bilateral; Z86.59 Personal history of other mental and behavioral disorders; Z86.010 Personal history of colon polyps; Z88.5 Allergy status to narcotic agent; Z82.49 Family history of ischemic heart disease and other diseases of the circulatory system; Z80.3 Family history of malignant neoplasm of breast
CPT/HCPCS: 31500; 36415; 36600; 71045; 80053; 80306; 80320; 81001; 82140; 82150; 82805; 83036; 83690; 83735; 84100; 84132; 85025; 87040; 87070; 87205; 94002; 94003; 94640; 96361; 96365; 96372; 96374; 96375; 96376; 99291

== ENCOUNTER 2017-10-16 10:26 | Emergency (ER) | payer MEDICARE ==
[2017-10-16] MEDS ORDERED: ONDANSETRON 4 MG/2 ML VIAL IVP STA (10:42)
[2017-10-16] MEDS ORDERED: PANTOPRAZOLE 40 MG/10 ML VIAL IVP STA (10:42)
[2017-10-16] MEDS ORDERED: SODIUM CHLORIDE 0.9% 1,000 ML IV STA (10:42)
[2017-10-16 11:31] LABS: Anisocytosis Slight; Basophils # (A) 0.1 k/uL (0-0.2); Basophils % (A) 1 %; Eosinophils # (A) 0.1 k/uL (0-0.7); Eosinophils % (A) 1 %; HCT 44.1 % (39.0-53.0); HGB 14.5 gm/dL (13.0-17.5); Lymphocytes # (A) 1.3 k/uL (1.0-4.8); Lymphocytes % (A) 11 %; MCH 31.6 pg (25.0-35.0); MCHC 32.9 g/dL (31.0-37.0); Mean Platelet Volume 6.1; Monocytes # (A) 0.6 k/uL (0-1.0); Monocytes % (A) 5 %; Neutrophils % (A) 81 %; RDW 16.6 % (11.5-15.5); WBC 12.3 k/uL (3.8-10.6)
--- NOTE | 2017-10-16 11:31 | XR ---
EXAMINATION TYPE: XR chest 2V DATE OF EXAM: 10/16/2017 COMPARISON: 09/30/2017 HISTORY: Abdominal pain and vomiting TECHNIQUE: Frontal and lateral views of the chest are obtained. FINDINGS: There is no focal air space opacity, pleural effusion, or pneumothorax seen. Diffuse inter stitial prominence is new from the prior exam. Eventration of the right hemidiaphragm is again seen. The cardiac silhouette size is within normal limits. The osseous structures are intact. Chronic di slocation of the right acromio clavicular joint is noted. IMPRESSION: New diffuse interstitial prominence that may relate to early interstitial edema or atypi augie pneumonia.
[2017-10-16 11:32] LABS: Platelet Count 528 k/uL (150-450)
--- NOTE | 2017-10-16 11:36 | XR ---
EXAMINATION TYPE: XR KUB DATE OF EXAM: 10/16/2017 11:25 AM CLINICAL HISTORY: Abdominal pain and vomiting TECHNIQUE: Single upright image of the abdomen is obtained. COMPARISON: 10/27/2016 FINDINGS: Scattered gas is seen in non-distended small bowel loops. Gas and fecal material is seen in nondilated colon. There is no visceromegaly, pneumoperitoneum, or abnormal calcification appreciated . Overall there is a paucity of bowel gas. The lung bases are clear and the osseous structures are in tact. Surgical coils are noted within the pelvis. There is a levoscoliosis of the lumbar spine. Mild multilevel degenerative changes of the lumbar spine and femoral acetabular joints are seen. IMPRESSION: Nonobstructive bowel gas pattern.
[2017-10-16 11:41] LABS: INR 1.1 (<1.2); Partial Thromboplastin Time 24.2 sec (22.0-30.0); Prothrombin Time 10.5 sec (9.0-12.0)
[2017-10-16 11:42] LABS: Albumin 3.6 g/dL (3.5-5.0); Amylase 52 U/L (30-110); Anion Gap 15 mmol/L; Calcium 8.3 mg/dL (8.4-10.2); Carbon Dioxide 32 mmol/L (22-30); Chloride 93 mmol/L (98-107); Glucose 111 mg/dL (74-99); Lipase 60 U/L (23-300); Sodium 140 mmol/L (137-145); Total Bilirubin 0.9 mg/dL (0.2-1.3); Total Protein 6.3 g/dL (6.3-8.2)
[2017-10-16 11:43] LABS: Blood Urea Nitrogen 6 mg/dL (9-20); Potassium 4.1 mmol/L (3.5-5.1)
[2017-10-16 11:44] LABS: ALT 24 U/L (21-72); AST 25 U/L (17-59); Alkaline Phosphatase 113 U/L (38-126)
[2017-10-16 13:15] LABS: Appearance,Urine Clear (Clear); Bilirubin,Urine Negative (Negative); Blood,Urine Negative (Negative); Color,Urine Yellow; Glucose,Urine (UA) Negative (Negative); Hyaline Casts,Urine 7 /lpf (0-2); Ketones,Urine Negative (Negative); Leukocyte Esterase,Urine Trace (Negative); Mucus,Urine Few /hpf; Nitrite,Urine Negative (Negative); PH, Urine 7.5 (5.0-8.0); Protein,Urine 1+ (Negative); RBC,Urine <1 /hpf (0-5); Squamous Epithelial Cell,Urine <1 /hpf (0-4); WBC,Urine 6 /hpf (0-5)
[2017-10-16] MEDS ORDERED: FUROSEMIDE 10 MG/ML 4 ML VIAL IV STA (13:21)
--- NOTE | 2017-10-16 13:24 | ED ---
General Adult HPI - General Chief complaint: GI Bleed Stated complaint: Vomiting Time Seen by Provider: 10/16/17 10:38 Source: patient, RN notes reviewed Mode of arrival: wheelchair Limitations: no limitations - History of Present Illness Initial comments: Patient is a 57-year-old male presented to the emergency room today with chief complaint of nausea vomiting started last night. Patient does admit that the nausea is still present but vomiting seemed to be somewhat improving over the last hour. Patient denies any specific abdominal pain. Patient denies any other associated symptoms or complaints. He states he has had similar symptoms in the past. He does admit to being a daily drinker. Patient denies any recent fever, chills, shortness of breath, chest pain, back pain, numbness or tingling , dysuria or hematuria, constipation or diarrhea, headaches or visual changes, or any other complaints. - Related Data Home Medications Medication Instructions Recorded Confirmed Budesonide/Formoterol Fumarate 2 puff INHALATION RT-BID 09/26/17 10/16/17 [Symbicort 160-4.5 Mcg Inhaler] Furosemide [Lasix] 40 mg PO DAILY 09/26/17 10/16/17 QUEtiapine FUMARATE [SEROquel] 300 mg PO HS 09/26/17 10/16/17 QUEtiapine [SEROquel] 100 mg PO HS 09/26/17 10/16/17 Previous Rx's Medication Instructions Recorded Acetaminophen Suppository [Tylenol 650 mg RECTAL Q4HR PRN supp 10/01/17 Suppository] Albuterol Inhaler [Ventolin Hfa 2 puff INHALATION RT-Q8H #1 inhaler 10/01/17 Inhaler] Folic Acid 1 mg PO DAILY #30 tablet 10/01/17 LORazepam [Ativan] 1 mg PO TID PRN #20 tab 10/01/17 Multivitamins, Thera [Multivitamin] 1 tab PO DAILY #30 tablet 10/01/17 Thiamine [Vitamin B-1] 100 mg PO DAILY #30 tablet 10/01/17 Azithromycin [Zithromax Z-pack] 0 mg PO DIRECTED #6 tab 10/16/17 Ondansetron Odt [Zofran ODT] 4 mg PO Q8HR PRN #20 tab 10/16/17 Allergies Allergy/AdvReac Type Severity Reaction Status Date / Time tramadol AdvReac Mild Itching Verified 10/16/17 10:34 Review of Systems ROS Statement: Those systems with pertinent positive or pertinent negative responses have been documented in the HPI. ROS Other: All systems not noted in ROS Statement are negative. Past Medical History Past Medical History: GERD/Reflux, Osteoarthritis (OA), Seizure Disorder, Syncope Additional Past Medical History / Comment(s): 1 SEIZURE APPROX 2010, alcoholism , alcohol withdrawal syndrome, delirium tremors, past acute psychosis, DJD, diverticular disease, SBO 2ndary to incarcerated R inguinal hernia. History of Any Multi-Drug Resistant Organisms: None Reported Past Surgical History: Appendectomy, Heart Catheterization, Hernia Repair, Joint Replacement, Orthopedic Surgery, Tonsillectomy Additional Past Surgical History / Comment(s): Colonoscopies and polypectomies, 10/21/15 normal cardiac cath, multiple inguinal hernia surg., bilateral knee arthroscopies and pt states bilateral knee arthroplasties. Past Anesthesia/Blood Transfusion Reactions: No Reported Reaction Past Psychological History: Anxiety, Depression Smoking Status: Current every day smoker Past Alcohol Use History: Abuse, Daily, Heavy Past Drug Use History: Cocaine - Past Family History Father Family Medical History: Coronary Artery Disease (CAD), Myocardial Infarction (UT ) Additional Family Medical History / Comment(s): Father of a UT at the age of 73 yrs. Mother Family Medical History: Cancer Additional Family Medical History / Comment(s): Mother had breast cancer. She is 81 yrs old and now healthy. General Exam - General Exam Comments Initial Comments: General: The patient is awake and alert, in no distress, and does not appear acutely ill. Eye: Pupils are equal, round and reactive to light, extra-ocular movements are intact. No nystagmus. There is normal conjunctiva bilaterally. No signs of icterus. Ears, nose, mouth and throat: There are moist mucous membranes and no oral lesions. Neck: The neck is supple, there is no tenderness or JVD. Cardiovascular: There is a regular rate and rhythm. No murmur, rub or gallop is appreciated. Respiratory: Lungs are clear to auscultation, respirations are non-labored, breath sounds are equal. No wheezes, stridor, rales, or rhonchi. Gastrointestinal: Soft, non-distended, non-tender abdomen without masses or organomegaly noted. There is no rebound or guarding present. No CVA tenderness. Musculoskeletal: Normal ROM, no tenderness. Strength 5/5. Sensation intact. Pulses equal bilaterally 2+. Neurological: A&O x 3. CN II-XII intact, There are no obvious motor or sensory deficits. Coordination appears grossly intact. Speech is normal. Skin: Skin is warm and dry and no rashes or lesions are noted. Psychiatric: Cooperative, appropriate mood & affect, normal judgment. Limitations: no limitations Course Vital Signs 10/16/17 10/16/17 10/16/17 10:32 11:18 12:14 Temperature 98.2 F Pulse Rate 102 H 93 Respiratory 20 19 19 Rate Blood Pressure 139/92 121/84 O2 Sat by Pulse 96 98 Oximetry 10/16/17 13:10 Temperature Pulse Rate 82 Respiratory 17 Rate Blood Pressure 120/81 O2 Sat by Pulse 99 Oximetry Medical Decision Making - Medical Decision Making Case discussed in detail with attending physician Dr. Hill. Patient reexamined at this time shows no signs of distress resting comfortably. Patient's labs been reviewed. Patient doing well at this time. States he would like to be discharged home. Will be given nausea medication. Patient's chest x-ray does reduce reveal possible edema or early infiltrate. Patient does take Lasix was unable taken today due to the nausea vomiting. Given his 40 mg IV. He'll be discharged home on azithromycin. Advised return if any symptoms increase worsen. - Lab Data Result diagrams: 10/16/17 11:08 10/16/17 11:08 Lab Results 10/16/17 10/16/17 10/16/17 Range/Units 11:08 11:08 11:08 WBC 12.3 H (3.8-10.6) k/uL RBC 4.60 (4.30-5.90) m/uL Hgb 14.5 (13.0-17.5) gm/dL Hct 44.1 (39.0-53.0) % MCV 96.0 (80.0-100.0) fL MCH 31.6 (25.0-35.0) pg MCHC 32.9 (31.0-37.0) g/dL RDW 16.6 H (11.5-15.5) % Plt Count 528 H D (150-450) k/uL Neutrophils % 81 % Lymphocytes % 11 % Monocytes % 5 % Eosinophils % 1 % Basophils % 1 % Neutrophils # 10.0 H (1.3-7.7) k/uL Lymphocytes # 1.3 (1.0-4.8) k/uL Monocytes # 0.6 (0-1.0) k/uL Eosinophils # 0.1 (0-0.7) k/uL Basophils # 0.1 (0-0.2) k/uL Anisocytosis Slight PT 10.5 (9.0-12.0) sec INR 1.1 (<1.2) APTT 24.2 (22.0-30.0) sec Sodium 140 (137-145) mmol/L Potassium 4.1 (3.5-5.1) mmol/L Chloride 93 L (98-107) mmol/L Carbon Dioxide 32 H (22-30) mmol/L Anion Gap 15 mmol/L BUN 6 L (9-20) mg/dL Creatinine 0.72 (0.66-1.25) mg/dL Est GFR (CKD-EPI)AfAm >90 (>60 ml/min/1.73 sqM) Est GFR (CKD-EPI)NonAf >90 (>60 ml/min/1.73 sqM) Glucose 111 H (74-99) mg/dL Calcium 8.3 L (8.4-10.2) mg/dL Total Bilirubin 0.9 (0.2-1.3) mg/dL AST 25 (17-59) U/L ALT 24 (21-72) U/L Alkaline Phosphatase 113 (38-126) U/L Total Protein 6.3 (6.3-8.2) g/dL Albumin 3.6 (3.5-5.0) g/dL Amylase 52 (30-110) U/L Lipase 60 (23-300) U/L Urine Color Urine Appearance (Clear) Urine pH (5.0-8.0) Ur Specific [place] (1.001-1.035) Urine Protein (Negative) Urine Glucose (UA) (Negative) Urine Ketones (Negative) Urine Blood (Negative) Urine Nitrite (Negative) Urine Bilirubin (Negative) Urine Urobilinogen (<2.0) mg/dL Ur Leukocyte Esterase (Negative) Urine RBC (0-5) /hpf Urine WBC (0-5) /hpf Ur Squamous Epith Cells (0-4) /hpf Hyaline Casts (0-2) /lpf Urine Mucus (None) /hpf 10/16/17 Range/Units 13:00 WBC (3.8-10.6) k/uL RBC (4.30-5.90) m/uL Hgb (13.0-17.5) gm/dL Hct (39.0-53.0) % MCV (80.0-100.0) fL MCH (25.0-35.0) pg MCHC (31.0-37.0) g/dL RDW (11.5-15.5) % Plt Count (150-450) k/uL Neutrophils % % Lymphocytes % % Monocytes % % Eosinophils % % Basophils % % Neutrophils # (1.3-7.7) k/uL Lymphocytes # (1.0-4.8) k/uL Monocytes # (0-1.0) k/uL Eosinophils # (0-0.7) k/uL Basophils # (0-0.2) k/uL Anisocytosis PT (9.0-12.0) sec INR (<1.2) APTT (22.0-30.0) sec Sodium (137-145) mmol/L Potassium (3.5-5.1) mmol/L Chloride (98-107) mmol/L Carbon Dioxide (22-30) mmol/L Anion Gap mmol/L BUN (9-20) mg/dL Creatinine (0.66-1.25) mg/dL Est GFR (CKD-EPI)AfAm (>60 ml/min/1.73 sqM) Est GFR (CKD-EPI)NonAf (>60 ml/min/1.73 sqM) Glucose (74-99) mg/dL Calcium (8.4-10.2) mg/dL Total Bilirubin (0.2-1.3) mg/dL AST (17-59) U/L ALT (21-72) U/L Alkaline Phosphatase (38-126) U/L Total Protein (6.3-8.2) g/dL Albumin (3.5-5.0) g/dL Amylase (30-110) U/L Lipase (23-300) U/L Urine Color Yellow Urine Appearance Clear (Clear) Urine pH 7.5 (5.0-8.0) Ur Specific [place] 1.020 (1.001-1.035) Urine Protein 1+ H (Negative) Urine Glucose (UA) Negative (Negative) Urine Ketones Negative (Negative) Urine Blood Negative (Negative) Urine Nitrite Negative (Negative) Urine Bilirubin Negative (Negative) Urine Urobilinogen 3.0 (<2.0) mg/dL Ur Leukocyte Esterase Trace H (Negative) Urine RBC <1 (0-5) /hpf Urine WBC 6 H (0-5) /hpf Ur Squamous Epith Cells <1 (0-4) /hpf Hyaline Casts 7 H (0-2) /lpf Urine Mucus Few H (None) /hpf Disposition Clinical Impression: Nausea & vomiting, Community acquired pneumonia Disposition: HOME SELF-CARE Condition: Good Instructions: Acute Nausea and Vomiting (ED) Additional Instructions: Please use medication as discussed. Please follow-up with family doctor in the next 2 days of symptoms have not improved. Please return to emergency room if the symptoms increase or worsen or for any other concerns. Prescriptions: Azithromycin [Zithromax Z-pack] 0 mg PO DIRECTED #6 tab Ondansetron Odt [Zofran ODT] 4 mg PO Q8HR PRN #20 tab PRN Reason: Nausea Is patient prescribed a controlled substance at d/c from ED?: No Referrals: Claudette Edward DO [Primary Care Provider] - 1-2 days Time of Disposition: 13:23
[2017-10-16 13:42] VITALS: BP 125/77; PULSE 75; RESP 18; TEMP 98
== END 2017-10-16 13:42 | disposition home or self-care (01) ==
LOC: EC 10:26
DX: J18.9 Pneumonia, unspecified organism (principal); K21.9 Gastro-esophageal reflux disease without esophagitis; F32.9 Major depressive disorder, single episode, unspecified; F17.200 Nicotine dependence, unspecified, uncomplicated; Z95.818 Presence of other cardiac implants and grafts; Z79.51 Long term (current) use of inhaled steroids; Z79.899 Other long term (current) drug therapy; Z88.6 Allergy status to analgesic agent
CPT/HCPCS: 36415; 80053; 82150; 83690; 85025; 85610; 85730; 81001; 71046; 74018; 99284; 96374; 96375 ×2; 96361; J1940; J2405; C9113

== ENCOUNTER 2017-10-18 19:05 | Emergency (ER) | payer MEDICARE ==
[2017-10-18] MEDS ORDERED: THIAMINE 100 MG/ML 2 ML VIAL IM STA (19:22)
[2017-10-18] MEDS ORDERED: LORazepam 2 MG/ML INJ IV PRN ×3 (19:22)
[2017-10-18] MEDS ORDERED: ONDANSETRON 4 MG/2 ML VIAL IVP STA (19:22)
[2017-10-18] MEDS ORDERED: SODIUM CHLORIDE 0.9% 1,000 ML IV STA ×3 (19:23→21:58)
[2017-10-18] MEDS ORDERED: PANTOPRAZOLE 40 MG/10 ML VIAL IVP STA (19:24)
--- NOTE | 2017-10-18 19:26 | ED ---
Nausea/Vomiting/Diarrhea HPI - General Chief complaint: Nausea/Vomiting/Diarrhea Stated complaint: nausea/vomiting Time Seen by Provider: 10/18/17 19:08 Source: EMS, RN notes reviewed, old records reviewed Mode of arrival: EMS Limitations: no limitations - History of Present Illness Initial comments: Patient is a 57-year-old male with a history of chronic alcohol abuse presents the emergency department today with 2 days of nausea and vomiting. Patient reports that he was seen in the emergency department 2 days ago for similar complaints. Patient states that his last drink was yesterday evening but he is not sure. Patient reports that today he has been having the shakes. Denies any coffee-ground episodes. Patient relates that he has had a history of severe withdrawals in the past and due to severe nausea and vomiting and be intubated in the past. Patient relates that he does have history of COPD. He was recently discharged from the hospital and has been taking his antibiotics, azithromycin for community acquired pneumonia. - Related Data Home Medications Medication Instructions Recorded Confirmed Budesonide/Formoterol Fumarate 2 puff INHALATION RT-BID 09/26/17 10/16/17 [Symbicort 160-4.5 Mcg Inhaler] Furosemide [Lasix] 40 mg PO DAILY 09/26/17 10/16/17 QUEtiapine FUMARATE [SEROquel] 300 mg PO HS 09/26/17 10/16/17 QUEtiapine [SEROquel] 100 mg PO HS 09/26/17 10/16/17 Previous Rx's Medication Instructions Recorded Acetaminophen Suppository [Tylenol 650 mg RECTAL Q4HR PRN supp 10/01/17 Suppository] Albuterol Inhaler [Ventolin Hfa 2 puff INHALATION RT-Q8H #1 inhaler 10/01/17 Inhaler] Folic Acid 1 mg PO DAILY #30 tablet 10/01/17 LORazepam [Ativan] 1 mg PO TID PRN #20 tab 10/01/17 Multivitamins, Thera [Multivitamin] 1 tab PO DAILY #30 tablet 10/01/17 Thiamine [Vitamin B-1] 100 mg PO DAILY #30 tablet 10/01/17 Azithromycin [Zithromax Z-pack] 0 mg PO DIRECTED #6 tab 10/16/17 Ondansetron Odt [Zofran ODT] 4 mg PO Q8HR PRN #20 tab 10/16/17 Ondansetron Odt [Zofran Odt] 4 mg PO Q8HR PRN #12 tab 10/18/17 chlordiazePOXIDE HCl [Librium] 25 mg PO QID #10 capsule 10/18/17 Allergies Allergy/AdvReac Type Severity Reaction Status Date / Time tramadol AdvReac Mild Itching Verified 10/18/17 19:21 Review of Systems ROS Statement: Those systems with pertinent positive or pertinent negative responses have been documented in the HPI. ROS Other: All systems not noted in ROS Statement are negative. Past Medical History Past Medical History: GERD/Reflux, Osteoarthritis (OA), Seizure Disorder, Syncope Additional Past Medical History / Comment(s): 1 SEIZURE APPROX 2010, alcoholism , alcohol withdrawal syndrome, delirium tremors, past acute psychosis, DJD, diverticular disease, SBO 2ndary to incarcerated R inguinal hernia. History of Any Multi-Drug Resistant Organisms: None Reported Past Surgical History: Appendectomy, Heart Catheterization, Hernia Repair, Joint Replacement, Orthopedic Surgery, Tonsillectomy Additional Past Surgical History / Comment(s): Colonoscopies and polypectomies, 10/21/15 normal cardiac cath, multiple inguinal hernia surg., bilateral knee arthroscopies and pt states bilateral knee arthroplasties. Past Anesthesia/Blood Transfusion Reactions: No Reported Reaction Past Psychological History: Anxiety, Depression Smoking Status: Current every day smoker Past Alcohol Use History: Abuse, Daily, Heavy Past Drug Use History: Cocaine - Past Family History Father Family Medical History: Coronary Artery Disease (CAD), Myocardial Infarction ([place] ) Additional Family Medical History / Comment(s): Father of a [place] at the age of 73 yrs. Mother Family Medical History: Cancer Additional Family Medical History / Comment(s): Mother had breast cancer. She is 81 yrs old and now healthy. General Exam - General Exam Comments Initial Comments: This patient's a 57-year-old male. Alert and oriented. Limitations: no limitations General appearance: alert, in no apparent distress Head exam: Present: atraumatic, normocephalic, normal inspection Eye exam: Present: normal appearance, PERRL, EOMI. Absent: scleral icterus, conjunctival injection, periorbital swelling ENT exam: Present: normal exam, mucous membranes moist Neck exam: Present: normal inspection Respiratory exam: Present: wheezes. Absent: normal lung sounds bilaterally, respiratory distress, rales, rhonchi, stridor Cardiovascular Exam: Present: regular rate, normal rhythm, normal heart sounds. Absent: systolic murmur, diastolic murmur, rubs, gallop, clicks GI/Abdominal exam: Present: soft, normal bowel sounds, other (Bruise under her umbilicus.). Absent: distended, tenderness, guarding, rebound, rigid Extremities exam: Present: normal inspection, full ROM, normal capillary refill. Absent: tenderness, pedal edema, joint swelling, calf tenderness Back exam: Present: normal inspection Neurological exam: Present: alert, oriented X3, CN II-XII intact Course Vital Signs 10/18/17 10/18/17 10/18/17 19:10 20:20 21:00 Temperature 99.1 F Pulse Rate 118 H 107 H Respiratory 19 18 18 Rate Blood Pressure 90/67 112/78 O2 Sat by Pulse 91 L 96 100 Oximetry 10/18/17 10/18/17 10/18/17 21:56 23:01 23:24 Temperature 98.3 F Pulse Rate 97 95 96 Respiratory 18 18 18 Rate Blood Pressure 130/87 126/76 126/78 O2 Sat by Pulse 97 96 94 L Oximetry Medical Decision Making - Medical Decision Making Patient is a 57-year-old male with a history of chronic alcohol abuse presents the emergency department today with 2 days of nausea and vomiting. Patient reports that he was seen in the emergency department 2 days ago for similar complaints. Patient states that his last drink was yesterday evening but he is not sure. Patient reports that today he has been having the shakes. Patient labs were completed. He does have elevated alctic acid. ETOH of 107. Patient was given 2 L of fluids and zofran. He reports he feels better at this time, and wants to go home. I discussed wanted to repeat lactic and patietn refuses another blood draw. CXR shows no acute changes, KUB is normal. Patient was discharged with azithromycin 2 days ago. Patient advised to follow up and will be advised to stop drinking. Will discharge with librium. Patient will be discharged home at this tie. - Lab Data Result diagrams: 10/18/17 21:16 10/18/17 21:16 Lab Results 10/18/17 10/18/17 10/18/17 Range/Units 21:00 21:16 21:16 WBC 10.4 (3.8-10.6) k/uL RBC 4.49 (4.30-5.90) m/uL Hgb 14.1 (13.0-17.5) gm/dL Hct 43.8 (39.0-53.0) % MCV 97.7 (80.0-100.0) fL MCH 31.4 (25.0-35.0) pg MCHC 32.2 (31.0-37.0) g/dL RDW 17.0 H (11.5-15.5) % Plt Count 451 H (150-450) k/uL Neutrophils % 72 % Lymphocytes % 19 % Monocytes % 4 % Eosinophils % 2 % Basophils % 1 % Neutrophils # 7.4 (1.3-7.7) k/uL Lymphocytes # 1.9 (1.0-4.8) k/uL Monocytes # 0.4 (0-1.0) k/uL Eosinophils # 0.3 (0-0.7) k/uL Basophils # 0.1 (0-0.2) k/uL Anisocytosis Slight Macrocytosis Slight PT (9.0-12.0) sec INR (<1.2) APTT (22.0-30.0) sec Sodium 141 (137-145) mmol/L Potassium 3.3 L (3.5-5.1) mmol/L Chloride 94 L (98-107) mmol/L Carbon Dioxide 31 H (22-30) mmol/L Anion Gap 16 mmol/L BUN 5 L (9-20) mg/dL Creatinine 0.80 (0.66-1.25) mg/dL Est GFR (CKD-EPI)AfAm >90 (>60 ml/min/1.73 sqM) Est GFR (CKD-EPI)NonAf >90 (>60 ml/min/1.73 sqM) Glucose 93 (74-99) mg/dL Lactic Ac Sepsis Rflx Plasma Lactic Acid Chet (0.7-2.0) mmol/L Calcium 7.7 L (8.4-10.2) mg/dL Magnesium 1.3 L (1.6-2.3) mg/dL Total Bilirubin 0.3 (0.2-1.3) mg/dL AST 15 L (17-59) U/L ALT 19 L (21-72) U/L Alkaline Phosphatase 92 (38-126) U/L Troponin I (0.000-0.034) ng/mL Total Protein 5.5 L (6.3-8.2) g/dL Albumin 2.9 L (3.5-5.0) g/dL Amylase 36 (30-110) U/L Lipase 56 (23-300) U/L Urine Color Light Yellow Urine Appearance Clear (Clear) Urine pH 7.0 (5.0-8.0) Ur Specific [place] 1.004 (1.001-1.035) Urine Protein Negative (Negative) Urine Glucose (UA) Negative (Negative) Urine Ketones Negative (Negative) Urine Blood Negative (Negative) Urine Nitrite Negative (Negative) Urine Bilirubin Negative (Negative) Urine Urobilinogen <2.0 (<2.0) mg/dL Ur Leukocyte Esterase Negative (Negative) Serum Alcohol 107 mg/dL 10/18/17 10/18/17 10/18/17 Range/Units 21:16 21:16 21:16 WBC (3.8-10.6) k/uL RBC (4.30-5.90) m/uL Hgb (13.0-17.5) gm/dL Hct (39.0-53.0) % MCV (80.0-100.0) fL MCH (25.0-35.0) pg MCHC (31.0-37.0) g/dL RDW (11.5-15.5) % Plt Count (150-450) k/uL Neutrophils % % Lymphocytes % % Monocytes % % Eosinophils % % Basophils % % Neutrophils # (1.3-7.7) k/uL Lymphocytes # (1.0-4.8) k/uL Monocytes # (0-1.0) k/uL Eosinophils # (0-0.7) k/uL Basophils # (0-0.2) k/uL Anisocytosis Macrocytosis PT 10.8 (9.0-12.0) sec INR 1.1 (<1.2) APTT 22.2 (22.0-30.0) sec Sodium (137-145) mmol/L Potassium (3.5-5.1) mmol/L Chloride (98-107) mmol/L Carbon Dioxide (22-30) mmol/L Anion Gap mmol/L BUN (9-20) mg/dL Creatinine (0.66-1.25) mg/dL Est GFR (CKD-EPI)AfAm (>60 ml/min/1.73 sqM) Est GFR (CKD-EPI)NonAf (>60 ml/min/1.73 sqM) Glucose (74-99) mg/dL Lactic Ac Sepsis Rflx Plasma Lactic Acid Chet 3.1 H* (0.7-2.0) mmol/L Calcium (8.4-10.2) mg/dL Magnesium (1.6-2.3) mg/dL Total Bilirubin (0.2-1.3) mg/dL AST (17-59) U/L ALT (21-72) U/L Alkaline Phosphatase (38-126) U/L Troponin I <0.012 (0.000-0.034) ng/mL Total Protein (6.3-8.2) g/dL Albumin (3.5-5.0) g/dL Amylase (30-110) U/L Lipase (23-300) U/L Urine Color Urine Appearance (Clear) Urine pH (5.0-8.0) Ur Specific [place] (1.001-1.035) Urine Protein (Negative) Urine Glucose (UA) (Negative) Urine Ketones (Negative) Urine Blood (Negative) Urine Nitrite (Negative) Urine Bilirubin (Negative) Urine Urobilinogen (<2.0) mg/dL Ur Leukocyte Esterase (Negative) Serum Alcohol mg/dL 10/18/17 Range/Units 21:55 WBC (3.8-10.6) k/uL RBC (4.30-5.90) m/uL Hgb (13.0-17.5) gm/dL Hct (39.0-53.0) % MCV (80.0-100.0) fL MCH (25.0-35.0) pg MCHC (31.0-37.0) g/dL RDW (11.5-15.5) % Plt Count (150-450) k/uL Neutrophils % % Lymphocytes % % Monocytes % % Eosinophils % % Basophils % % Neutrophils # (1.3-7.7) k/uL Lymphocytes # (1.0-4.8) k/uL Monocytes # (0-1.0) k/uL Eosinophils # (0-0.7) k/uL Basophils # (0-0.2) k/uL Anisocytosis Macrocytosis PT (9.0-12.0) sec INR (<1.2) APTT (22.0-30.0) sec Sodium (137-145) mmol/L Potassium (3.5-5.1) mmol/L Chloride (98-107) mmol/L Carbon Dioxide (22-30) mmol/L Anion Gap mmol/L BUN (9-20) mg/dL Creatinine (0.66-1.25) mg/dL Est GFR (CKD-EPI)AfAm (>60 ml/min/1.73 sqM) Est GFR (CKD-EPI)NonAf (>60 ml/min/1.73 sqM) Glucose (74-99) mg/dL Lactic Ac Sepsis Rflx Y Plasma Lactic Acid Chet (0.7-2.0) mmol/L Calcium (8.4-10.2) mg/dL Magnesium (1.6-2.3) mg/dL Total Bilirubin (0.2-1.3) mg/dL AST (17-59) U/L ALT (21-72) U/L Alkaline Phosphatase (38-126) U/L Troponin I (0.000-0.034) ng/mL Total Protein (6.3-8.2) g/dL Albumin (3.5-5.0) g/dL Amylase (30-110) U/L Lipase (23-300) U/L Urine Color Urine Appearance (Clear) Urine pH (5.0-8.0) Ur Specific [place] (1.001-1.035) Urine Protein (Negative) Urine Glucose (UA) (Negative) Urine Ketones (Negative) Urine Blood (Negative) Urine Nitrite (Negative) Urine Bilirubin (Negative) Urine Urobilinogen (<2.0) mg/dL Ur Leukocyte Esterase (Negative) Serum Alcohol mg/dL 10/18/17 22:19 EKG performed at 2128 shows normal sinus rhythm, low-voltage QRS. Prolonged QT. Abnormal EKG noted. Ventricular rate 92 bpm. WI interval is 1:30 milliseconds. QRS duration 84. QT QTc is 396/49. - Radiology Data Radiology results: report reviewed KUB is negative and for any acute radiographic process. Chest x-ray shows interstitial pulmonary pattern redrawn strata. Biapical pleural capping greater on the right. Disposition Clinical Impression: Nausea & vomiting, ETOH abuse Disposition: HOME SELF-CARE Condition: Good Instructions: Acute Nausea and Vomiting (ED) Additional Instructions: Patient advised to follow-up with primary care provider and return to emergency department if any alarming signs or symptoms occur. Rest, remain hydrated. Prescriptions: chlordiazePOXIDE HCl [Librium] 25 mg PO QID #10 capsule Ondansetron Odt [Zofran Odt] 4 mg PO Q8HR PRN #12 tab PRN Reason: Nausea Is patient prescribed a controlled substance at d/c from ED?: No When asked, does pt state using other controlled substances?: No If prescribed controlled substance>3 days was MAPS reviewed?: No If opioid is for acute pain is fill amount 7 days or less?: No If Rx opioid, was Start Talking consent form obtained?: No Referrals: Claudette Edward DO [Primary Care Provider] - 1-2 days Time of Disposition: 23:23
--- NOTE | 2017-10-18 20:16 | XR ---
EXAMINATION: XR chest 2V DATE AND TIME: 10/18/2017 7:39 PM ORDERING PROVIDER: Luiza Rao CLINICAL INDICATION: Pain nausea vomiting TECHNIQUE: PA and lateral COMPARISON: 10/16/2017 DESCRIPTION: The mild interstitial pulmonary pattern previously reported is redemonstrated, perhaps l ess conspicuous presently. The lungs are otherwise clear and well-expanded, without silhouetting of t he pleural reflections. The pleural spaces are negative for air or fluid, but biapical pleural capping is redemonstrated, wit h overlying ribs intact. The cardiac silhouette is not enlarged. The skeletal structures are negative for acute findings. The soft tissues are unremarkable. IMPRESSION: 1. Interstitial pulmonary pattern redemonstrated. 2. Biapical pleural capping, greater on the right.
--- NOTE | 2017-10-18 20:21 | XR ---
EXAMINATION TYPE: XR KUB 2 upright views DATE OF EXAM: 10/18/2017 COMPARISON: NONE HISTORY: Nausea and vomiting TECHNIQUE: 2 upright views FINDINGS: There is no pneumoperitoneum or pneumatosis. The bowel gas pattern is normal. No focal soft tissue finding. No acute skeletal finding. Multilevel lumbar spondylosis is noted in addition to multilevel old ascit es rib fractures. IMPRESSION: No acute radiographic process.
[2017-10-18 20:32] VITALS: RESP 18
[2017-10-18 21:09] LABS: Appearance,Urine Clear (Clear); Bilirubin,Urine Negative (Negative); Blood,Urine Negative (Negative); Color,Urine Light Yellow; Glucose,Urine (UA) Negative (Negative); Ketones,Urine Negative (Negative); Leukocyte Esterase,Urine Negative (Negative); Nitrite,Urine Negative (Negative); Protein,Urine Negative (Negative); Specific Gravity,Urine 1.004 (1.001-1.035); Urobilinogen,Urine <2.0 mg/dL (<2.0)
[2017-10-18 21:39] LABS: Anisocytosis Slight; Basophils # (A) 0.1 k/uL (0-0.2); Basophils % (A) 1 %; Eosinophils # (A) 0.3 k/uL (0-0.7); Eosinophils % (A) 2 %; HCT 43.8 % (39.0-53.0); HGB 14.1 gm/dL (13.0-17.5); INR 1.1 (<1.2); Lymphocytes # (A) 1.9 k/uL (1.0-4.8); Lymphocytes % (A) 19 %; MCH 31.4 pg (25.0-35.0); MCHC 32.2 g/dL (31.0-37.0); MCV 97.7 fL (80.0-100.0); Macrocytosis Slight; Mean Platelet Volume 6.2; Monocytes # (A) 0.4 k/uL (0-1.0); Monocytes % (A) 4 %; Neutrophils # (A) 7.4 k/uL (1.3-7.7); Neutrophils % (A) 72 %; Partial Thromboplastin Time 22.2 sec (22.0-30.0); Platelet Count 451 k/uL (150-450); Prothrombin Time 10.8 sec (9.0-12.0); RBC 4.49 m/uL (4.30-5.90); WBC 10.4 k/uL (3.8-10.6)
[2017-10-18 21:42] LABS: ALT 19 U/L (21-72); AST 15 U/L (17-59); Albumin 2.9 g/dL (3.5-5.0); Alkaline Phosphatase 92 U/L (38-126); Amylase 36 U/L (30-110); Anion Gap 16 mmol/L; Blood Urea Nitrogen 5 mg/dL (9-20); Calcium 7.7 mg/dL (8.4-10.2); Carbon Dioxide 31 mmol/L (22-30); Chloride 94 mmol/L (98-107); Glucose 93 mg/dL (74-99); Lipase 56 U/L (23-300); Magnesium 1.3 mg/dL (1.6-2.3); Potassium 3.3 mmol/L (3.5-5.1); Sodium 141 mmol/L (137-145); Total Bilirubin 0.3 mg/dL (0.2-1.3); Total Protein 5.5 g/dL (6.3-8.2)
[2017-10-18 21:53] LABS: Alcohol 107 mg/dL
[2017-10-18 23:27] VITALS: BP 126/78; PULSE 96; TEMP 98.3
[2017-10-19] MEDS ORDERED: THIAMINE 100 MG TAB PO SCH (12:00)
== END 2017-10-18 23:34 | disposition home or self-care (01) ==
LOC: EC 19:05
DX: R11.2 Nausea with vomiting, unspecified (principal); F10.20 Alcohol dependence, uncomplicated; Y90.5 Blood alcohol level of 100-119 mg/100 ml; J44.9 Chronic obstructive pulmonary disease, unspecified; F32.9 Major depressive disorder, single episode, unspecified; F17.200 Nicotine dependence, unspecified, uncomplicated; Z90.49 Acquired absence of other specified parts of digestive tract; Z95.5 Presence of coronary angioplasty implant and graft; Z88.5 Allergy status to narcotic agent; Z79.51 Long term (current) use of inhaled steroids; Z79.899 Other long term (current) drug therapy
CPT/HCPCS: 99285; 96374; 96375; 96361 ×3; 96372; 36415; 93005; 80053; 82150; 83605; 83690; 83735; 84484; 85025; 85610; 85730; 81003; 80320; 71046; 74018; J3411; J2405; C9113

== ENCOUNTER 2017-12-01 08:50 | Inpatient (IN) | payer MEDICARE ==
[2017-12-01] MEDS ORDERED: SODIUM CHLORIDE 0.9% 1,000 ML IV STA ×2 (08:57)
--- NOTE | 2017-12-01 09:08 | ED ---
Weakness HPI - General Chief complaint: Weakness Stated complaint: Weakness, JOE Time Seen by Provider: 12/01/17 08:53 Source: patient, EMS Mode of arrival: EMS Limitations: no limitations - History of Present Illness Initial comments: 57 years old male, he fell trying to reach his oxygen he denies any injury from the fall no loss of consciousness no head injury no neck injury he felt weak had a hard time getting up ambulance crew noticed his O2 sat was 78 and now they helped him with the oxygen and it went above 99) but he still quite tachycardic reexamination his heart rate was 131. He is complaining about generalized weakness no headaches no neck stiffness no chest pain he said it does hurt when he tries to take a deep breath no abdominal pain no frequency urgency dysuria no symptoms of TIA or CVA - Related Data Home Medications Medication Instructions Recorded Confirmed Albuterol Inhaler [Ventolin Hfa 2 puff INHALATION RT-Q6H PRN 12/01/17 12/01/17 Inhaler] Fluticasone/Vilanterol [Breo 1 puff INHALATION RT-DAILY 12/01/17 12/01/17 Ellipta 100-25 Mcg Inhaler] Furosemide [Lasix] 40 mg PO DAILY 12/01/17 12/01/17 Gabapentin [Neurontin] 300 mg PO BID 12/01/17 12/01/17 Ibuprofen [Advil] 200 mg PO Q6HR PRN 12/01/17 12/01/17 Magnesium Chloride [Slow Mag] 64 mg PO DAILY 12/01/17 12/01/17 Menthol [Biofreeze] 1 applic TOPICAL DAILY PRN 12/01/17 12/01/17 Naltrexone HCl [Revia] 50 mg PO DAILY 12/01/17 12/01/17 Pantoprazole Sodium [Protonix] 40 mg PO DAILY 12/01/17 12/01/17 Potassium Chloride ER [K-Dur 20] 40 meq PO DAILY 12/01/17 12/01/17 QUEtiapine [SEROquel] 200 mg PO BID 12/01/17 12/01/17 busPIRone HCl [Buspar] 10 mg PO DAILY 12/01/17 12/01/17 Previous Rx's Medication Instructions Recorded Ondansetron Odt [Zofran ODT] 4 mg PO Q8HR PRN #20 tab 10/16/17 Allergies Allergy/AdvReac Type Severity Reaction Status Date / Time tramadol AdvReac Mild Itching Verified 12/01/17 08:58 Review of Systems ROS Statement: Those systems with pertinent positive or pertinent negative responses have been documented in the HPI. ROS Other: All systems not noted in ROS Statement are negative. Past Medical History Past Medical History: GERD/Reflux, Osteoarthritis (OA), Seizure Disorder, Syncope Additional Past Medical History / Comment(s): 1 SEIZURE APPROX 2010, alcoholism , alcohol withdrawal syndrome, delirium tremors, past acute psychosis, DJD, diverticular disease, SBO 2ndary to incarcerated R inguinal hernia. History of Any Multi-Drug Resistant Organisms: None Reported Past Surgical History: Appendectomy, Heart Catheterization, Hernia Repair, Joint Replacement, Orthopedic Surgery, Tonsillectomy Additional Past Surgical History / Comment(s): Colonoscopies and polypectomies, 10/21/15 normal cardiac cath, multiple inguinal hernia surg., bilateral knee arthroscopies and pt states bilateral knee arthroplasties. Past Anesthesia/Blood Transfusion Reactions: No Reported Reaction Past Psychological History: Anxiety, Depression Smoking Status: Current every day smoker Past Alcohol Use History: Abuse, Daily, Heavy Past Drug Use History: Cocaine - Past Family History Father Family Medical History: Coronary Artery Disease (CAD), Myocardial Infarction ([place] ) Additional Family Medical History / Comment(s): Father of a [place] at the age of 73 yrs. Mother Family Medical History: Cancer Additional Family Medical History / Comment(s): Mother had breast cancer. She is 81 yrs old and now healthy. General Exam - General Exam Comments Initial Comments: General: The patient is awake and alert, in no distress, and does not appear acutely ill. Skin: Skin is warm and dry and no rashes or lesions are noted. Eye: Pupils are equal, round and reactive to light, extra-ocular movements are intact; there is normal conjunctiva bilaterally. Ears, nose, mouth and throat: There are moist mucous membranes and no oral lesions. Neck: The neck is supple, there is no tenderness or JVD. Cardiovascular: There is a regular rate and rhythm. No murmur, rub or gallop is appreciated. Respiratory: To auscultation bilateral, no wheezing no rhonchi no distress respiratory weir noticed Gastrointestinal: Soft, non-distended, non-tender abdomen without masses or organomegaly noted. There is no rebound or guarding present. Bowel sounds are unremarkable. Back: There is no tenderness to palpation in the midline. There is no obvious deformity. Musculoskeletal: Normal ROM, no tenderness, There is no pedal edema. There is no calf tenderness or swelling. No cords were appreciated. Neurological: CN II-XII intact, Cranial nerves III through XII are intact. There are no obvious motor or sensory deficits. Coordination appears grossly intact. Speech is normal. Psychiatric: Cooperative, appropriate mood & affect, normal judgment. Limitations: no limitations Course Vital Signs 12/01/17 12/01/17 12/01/17 08:52 09:00 09:27 Temperature 96.8 F L Pulse Rate 132 H 130 H Respiratory 22 22 Rate Blood Pressure 100/67 O2 Sat by Pulse 95 Oximetry 12/01/17 12/01/17 09:45 12:25 Temperature Pulse Rate 120 H 126 H Respiratory 16 16 Rate Blood Pressure 105/66 124/76 O2 Sat by Pulse 94 L 93 L Oximetry unFortunately we were not able to get blood draw done , first few attempts for the blood draw failed patient refused the blood draw then we applied some topical lidocaine he agreed with that and that is why his labs are delayed significantly IV anesthesia came and they established a small gauge IV, and an IV is not enough to to push the contrast for CT angiogram I have ordered a VQ scan is troponin is elevated he be admitted under Dr. Holland's service he is also has elevated white count and concerned about sepsis though his chest x-ray looks fine urine analysis we couldn't get any urine sample from him potassium is low as well potassium couldn't be compensated he will be given 40 mEq of potassium by mouth concerned about his tachycardia we have ordered the blood cultures and urine cultures and the patient is. At 1529 lab called me and informed him about his lactate being 5.1 but cannot can't name at 2 L of fluid she is already on Rocephin 2 g IV added - Reevaluation(s) Reevaluation #1: We failed to establish the IV I offered ultrasound guided IV attempt , he refused and we have got in touch with anesthesia for that helped with the IV and the blood draw Time For the IV 12/01/17 12:19 EKG Findings - EKG Comments: EKG Findings:: EKG reveals sinus tachycardia ventricular rate is 131 VA interval is 120 QRS duration is 88 QT/QTc is 382/564 review of this EKG does not reveal any ST elevation noticed some mom ST depression in V5 and V6 Medical Decision Making - Lab Data Result diagrams: 12/01/17 13:53 12/01/17 13:53 Lab Results 12/01/17 12/01/17 12/01/17 Range/Units 13:53 13:53 13:53 WBC 16.6 H (3.8-10.6) k/uL RBC 4.68 (4.30-5.90) m/uL Hgb 15.9 (13.0-17.5) gm/dL Hct 47.5 (39.0-53.0) % MCV 101.7 H (80.0-100.0) fL MCH 34.0 (25.0-35.0) pg MCHC 33.4 (31.0-37.0) g/dL RDW 17.2 H (11.5-15.5) % Plt Count 202 (150-450) k/uL Neutrophils % 91 % Lymphocytes % 4 % Monocytes % 4 % Eosinophils % 0 % Basophils % 0 % Neutrophils # 15.1 H (1.3-7.7) k/uL Lymphocytes # 0.7 L (1.0-4.8) k/uL Monocytes # 0.6 (0-1.0) k/uL Eosinophils # 0.0 (0-0.7) k/uL Basophils # 0.0 (0-0.2) k/uL Anisocytosis Slight Macrocytosis Moderate PT 13.9 H (9.0-12.0) sec INR 1.5 H (<1.2) APTT 27.8 (22.0-30.0) sec D-Dimer 6.44 H (<0.60) mg/L FEU Sodium 135 L (137-145) mmol/L Potassium 3.1 L (3.5-5.1) mmol/L Chloride 91 L (98-107) mmol/L Carbon Dioxide 26 (22-30) mmol/L Anion Gap 18 mmol/L BUN 6 L (9-20) mg/dL Creatinine 1.00 (0.66-1.25) mg/dL Est GFR (CKD-EPI)AfAm >90 (>60 ml/min/1.73 sqM) Est GFR (CKD-EPI)NonAf 83 (>60 ml/min/1.73 sqM) Glucose 169 H (74-99) mg/dL Plasma Lactic Acid Chet (0.7-2.0) mmol/L Calcium 7.4 L (8.4-10.2) mg/dL Total Bilirubin 1.2 (0.2-1.3) mg/dL AST 20 (17-59) U/L ALT 17 L (21-72) U/L Alkaline Phosphatase 255 H (38-126) U/L Total Creatine Kinase (55-170) U/L CK-MB (CK-2) (0.0-2.4) ng/mL CK-MB (CK-2) Rel Index Troponin I (0.000-0.034) ng/mL Total Protein 6.2 L (6.3-8.2) g/dL Albumin 3.1 L (3.5-5.0) g/dL 12/01/17 12/01/17 Range/Units 13:53 13:53 WBC (3.8-10.6) k/uL RBC (4.30-5.90) m/uL Hgb (13.0-17.5) gm/dL Hct (39.0-53.0) % MCV (80.0-100.0) fL MCH (25.0-35.0) pg MCHC (31.0-37.0) g/dL RDW (11.5-15.5) % Plt Count (150-450) k/uL Neutrophils % % Lymphocytes % % Monocytes % % Eosinophils % % Basophils % % Neutrophils # (1.3-7.7) k/uL Lymphocytes # (1.0-4.8) k/uL Monocytes # (0-1.0) k/uL Eosinophils # (0-0.7) k/uL Basophils # (0-0.2) k/uL Anisocytosis Macrocytosis PT (9.0-12.0) sec INR (<1.2) APTT (22.0-30.0) sec D-Dimer (<0.60) mg/L FEU Sodium (137-145) mmol/L Potassium (3.5-5.1) mmol/L Chloride (98-107) mmol/L Carbon Dioxide (22-30) mmol/L Anion Gap mmol/L BUN (9-20) mg/dL Creatinine (0.66-1.25) mg/dL Est GFR (CKD-EPI)AfAm (>60 ml/min/1.73 sqM) Est GFR (CKD-EPI)NonAf (>60 ml/min/1.73 sqM) Glucose (74-99) mg/dL Plasma Lactic Acid Chet 5.1 H* (0.7-2.0) mmol/L Calcium (8.4-10.2) mg/dL Total Bilirubin (0.2-1.3) mg/dL AST (17-59) U/L ALT (21-72) U/L Alkaline Phosphatase (38-126) U/L Total Creatine Kinase 74 (55-170) U/L CK-MB (CK-2) 1.8 (0.0-2.4) ng/mL CK-MB (CK-2) Rel Index 2.4 Troponin I 0.376 H* (0.000-0.034) ng/mL Total Protein (6.3-8.2) g/dL Albumin (3.5-5.0) g/dL Disposition Clinical Impression: Tachycardia, Leukocytosis, Sepsis, Elevated troponin Disposition: ADMITTED IP TO THIS HOSP Referrals: Claudette Edward DO [Primary Care Provider] - 1-2 days
[2017-12-01] MEDS ORDERED: IPRATROPIUM 0.5 MG/2.5 ML NEBU INHALATION STA (09:13)
[2017-12-01] MEDS ORDERED: ALBUTEROL NEBULIZED 2.5 MG/3 ML INHALATION STA (09:13)
[2017-12-01] MEDS ORDERED: methylPREDNISolone SOD SUCCI 125 MG/2 ML VIAL IV STA (09:14)
[2017-12-01] MEDS ORDERED: LIDOCAINE-PRILOCAINE 2.5-2.5% CREAM 5 GM TUBE TOPICAL ONE (09:56)
--- NOTE | 2017-12-01 10:35 | XR ---
EXAMINATION TYPE: XR chest 2V DATE OF EXAM: 12/01/2017 COMPARISON: Prior chest x-ray 10/18/2017 HISTORY: Weakness and shortness of breath, COPD TECHNIQUE: Frontal and lateral views of the chest are obtained. FINDINGS: Similar findings to prior exam. Interstitial prominence is again noted. Heart size is stab le. Patient is rotated. There are overlying cardiac leads. No evident pneumothorax. Apical pleural th ickening is stable. Increased density is present at the left costophrenic angle, suspect rib fracture as on prior at the eighth and ninth ribs. IMPRESSION: Blunting of the left costophrenic angle likely due to pleural reaction from associated r ib fractures. Suspect interstitial lung disease. No focal pneumonia evident.
[2017-12-01] MEDS ORDERED: LIDOCAINE-PRILOCAINE 2.5-2.5% CREAM 5 GM TUBE TOPICAL STA (11:41)
[2017-12-01] MEDS ORDERED: MORPHINE SULFATE 2 MG/ML SYRINGE IM STA (11:56)
[2017-12-01] MEDS: LABETALOL 5 MG/ML VIAL MDV IVP SCH ×2 (12:26→12:27)
[2017-12-01 14:18] LABS: Anisocytosis Slight; Basophils % (A) 0 %; Eosinophils % (A) 0 %; HCT 47.5 % (39.0-53.0); HGB 15.9 gm/dL (13.0-17.5); Lymphocytes # (A) 0.7 k/uL (1.0-4.8); Lymphocytes % (A) 4 %; MCHC 33.4 g/dL (31.0-37.0); MCV 101.7 fL (80.0-100.0); Macrocytosis Moderate; Mean Platelet Volume 6.7; Monocytes # (A) 0.6 k/uL (0-1.0); Monocytes % (A) 4 %; Neutrophils # (A) 15.1 k/uL (1.3-7.7); Neutrophils % (A) 91 %; Platelet Count 202 k/uL (150-450); RBC 4.68 m/uL (4.30-5.90); RDW 17.2 % (11.5-15.5); WBC 16.6 k/uL (3.8-10.6)
[2017-12-01 14:45] LABS: INR 1.5 (<1.2); Partial Thromboplastin Time 27.8 sec (22.0-30.0); Prothrombin Time 13.9 sec (9.0-12.0)
[2017-12-01 14:47] LABS: D-Dimer 6.44 mg/L FEU (<0.60)
[2017-12-01] MEDS ORDERED: cefTRIAXone 2,000 MG in SODIUM CHLORIDE 0.9% 100 ML IVPB STA (14:48)
[2017-12-01 14:49] LABS: ALT 17 U/L (21-72); AST 20 U/L (17-59); Albumin 3.1 g/dL (3.5-5.0); Alkaline Phosphatase 255 U/L (38-126); Anion Gap 18 mmol/L; Blood Urea Nitrogen 6 mg/dL (9-20); Calcium 7.4 mg/dL (8.4-10.2); Carbon Dioxide 26 mmol/L (22-30); Chloride 91 mmol/L (98-107); Glucose 169 mg/dL (74-99); Potassium 3.1 mmol/L (3.5-5.1); Sodium 135 mmol/L (137-145); Total Bilirubin 1.2 mg/dL (0.2-1.3); Total Protein 6.2 g/dL (6.3-8.2)
[2017-12-01] MEDS ORDERED: cefTRIAXone IN SWFI 2,000 MG/20 ML SYRINGE IVP STA (14:51)
[2017-12-01 15:10] LABS: Creatine Kinase MB 1.8 ng/mL (0.0-2.4)
[2017-12-01 15:14] LABS: Troponin I 0.376 ng/mL (0.000-0.034)
[2017-12-01] MEDS ORDERED: SODIUM CHLORIDE 0.9% 2,000 ML IV ONE (15:32)
[2017-12-01] MEDS ORDERED: MORPHINE SULFATE 2 MG/ML SYRINGE IV PRN (15:35)
[2017-12-01] MEDS ORDERED: NITROGLYCERIN SL TABS 0.4 MG TAB SUBLINGUAL PRN (15:35)
[2017-12-01] MEDS ORDERED: ONDANSETRON ODT 4 MG TAB PO PRN (15:40)
[2017-12-01] MEDS ORDERED: IBUPROFEN 200 MG TAB PO PRN (15:40)
[2017-12-01] MEDS ORDERED: METHYL SALICYLATE/MENTHOL CREAM 5 OZ TOPICAL PRN (15:40)
--- NOTE | 2017-12-01 16:39 | NM ---
EXAMINATION TYPE: NM pul vent and perfuse DATE OF EXAM: 12/01/2017 COMPARISON: Chest x-ray earlier today HISTORY: Shortness of breath, history of COPD. TECHNIQUE: Utilizing inhalation of 33.2 mCi Tc 99m DTPA aerosol and intravenous injection of 5.32 mC i of Tc 99m MAA, ventilation and perfusion images are acquired post injection in multiple projections . FINDINGS: Ventilation images show marked central clumping consistent with underlying COPD. there are multiple s mall to moderate matching defects bilaterally involving upper and lower lungs. There is no convincing evidence of mismatched defects. IMPRESSION: Intermediate or indeterminate probability for pulmonary embolism.
[2017-12-01 17:16] LABS: VBG PH 7.43 (7.31-7.41)
[2017-12-01 17:19] LABS: Appearance,Urine Cloudy (Clear); Bilirubin,Urine Negative (Negative); Blood,Urine Negative (Negative); Color,Urine Yellow; Glucose,Urine (UA) Negative (Negative); Hyaline Casts,Urine 169 /lpf (0-2); Ketones,Urine Negative (Negative); Leukocyte Esterase,Urine Negative (Negative); Mucus,Urine Few /hpf; Nitrite,Urine Negative (Negative); Protein,Urine 2+ (Negative); RBC,Urine 1 /hpf (0-5); Specific Gravity,Urine 1.018 (1.001-1.035); Squamous Epithelial Cell,Urine 1 /hpf (0-4); Urobilinogen,Urine <2.0 mg/dL (<2.0); WBC,Urine 7 /hpf (0-5)
[2017-12-01] MEDS ORDERED: AZITHROMYCIN 500 MG in DEXTROSE 5% IN WATER 250 ML IVPB STA ×2 (18:22)
[2017-12-01] MEDS: SODIUM CHLORIDE 0.9% 1,000 ML IV SCH (18:40)
--- NOTE | 2017-12-01 19:21 | CT ---
EXAMINATION TYPE: CT chest angio for PE DATE OF EXAM: 12/01/2017 COMPARISON: None HISTORY: Patient complains of difficulty breathing. CT DLP: 289.6 mGycm Automated exposure control for dose reduction was used. CONTRAST: CT Chest for pulmonary embolism performed with with IV Contrast, patient injected with 100 mL of Isov ue 370. FINDINGS: There are 3-D post processed images. There is diffuse bullous pulmonary emphysema. There are extensive filling defects in the left pulmona ry artery which is completely occluded by thrombus. There are large emboli in the right upper lobe an d right lower lobe pulmonary artery. There is evidence for right heart strain with some bulging of th e right ventricle towards the left ventricle. There is no pericardial effusion. There is no pleural e ffusion. There is mild pleural thickening in both lung jordan. There is honeycomb pattern in the ry phery of both lungs. IMPRESSION: Large massive bilateral pulmonary emboli. 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 T here is evidence for right heart strain. Pulmonary emphysema and pulmonary interstitial fibrosis. This exam was discussed with the RN supervis or at 7:15 PM.
[2017-12-01] MEDS ORDERED: HEPARIN SODIUM,PORCINE 10,000 UNIT/ML 1 ML VIAL IV ONE (19:27)
[2017-12-01] MEDS ORDERED: HEPARIN SODIUM,PORCINE 5,000 UNIT/ML 1 ML VIAL IV PRN (19:27)
[2017-12-01] MEDS ORDERED: HEPARIN SOD,PORK IN 0.45% NACL 25,000 UNIT in 0.45% NACL 1 500ML.BAG IV SCH (19:30)
[2017-12-01 20:09] LABS: Anisocytosis Slight; Basophils % (A) 0 %; Eosinophils % (A) 0 %; Hypochromasia Slight; Lymphocytes # (A) 0.4 k/uL (1.0-4.8); Lymphocytes % (A) 3 %; MCH 33.8 pg (25.0-35.0); MCHC 32.6 g/dL (31.0-37.0); MCV 103.9 fL (80.0-100.0); Macrocytosis Moderate; Monocytes # (A) 0.3 k/uL (0-1.0); Monocytes % (A) 2 %; Neutrophils # (A) 13.3 k/uL (1.3-7.7); Neutrophils % (A) 95 %; Platelet Count 152 k/uL (150-450); RBC 4.43 m/uL (4.30-5.90); RDW 16.7 % (11.5-15.5)
[2017-12-01 20:18] LABS: INR 1.3 (<1.2); Partial Thromboplastin Time 28.1 sec (22.0-30.0); Prothrombin Time 11.9 sec (9.0-12.0)
[2017-12-01] MEDS ORDERED: QUEtiapine 200 MG TAB PO SCH (21:00)
[2017-12-01] MEDS ORDERED: GABAPENTIN 300 MG CAP PO SCH (21:00)
[2017-12-01 21:08] LABS: Creatine Kinase MB 2.5 ng/mL (0.0-2.4)
[2017-12-01 21:10] LABS: Troponin I 0.308 ng/mL (0.000-0.034)
[2017-12-01 21:57] LABS: Glucose,Whole Blood 291 mg/dL (75-99)
[2017-12-01] MEDS: ALBUTEROL NEBULIZED 2.5 MG/3 ML INHALATION PRN (23:43)
[2017-12-02] MEDS ORDERED: SODIUM CHLORIDE 0.9% 1,000 ML IV ONE ×2 (01:42→02:54)
[2017-12-02] MEDS ORDERED: NOREPINEPHRIN 4 MG-0.9% NS PMX 4 MG/250 ML ML IV SCH (01:45)
[2017-12-02 02:09] VITALS: TEMP 97.5
[2017-12-02 02:15] LABS: ABG Base Excess -1.3 mmol/L; ABG HCO3 23 mmol/L (21-25); ABG Oxygen Saturation 94.9 % (94-97); ABG PCO2 36 mmHg (35-45); ABG PH 7.42 (7.35-7.45); ABG PO2 74 mmHg (83-108); ABG TCO2 24 mmol/L (19-24)
[2017-12-02] MEDS ORDERED: ACETAMINOPHEN IV (For NPO) 1,000 MG in EMPTY BAG 1 BAG IVPB PRN (02:36)
[2017-12-02 02:40] LABS: Anisocytosis Slight; Basophils % (A) 0 %; Eosinophils % (A) 0 %; HCT 44.7 % (39.0-53.0); HGB 14.3 gm/dL (13.0-17.5); Hypochromasia Slight; Lymphocytes # (A) 0.9 k/uL (1.0-4.8); Lymphocytes % (A) 6 %; MCH 33.7 pg (25.0-35.0); MCV 105.3 fL (80.0-100.0); Macrocytosis Moderate; Mean Platelet Volume 7.7; Monocytes # (A) 0.8 k/uL (0-1.0); Monocytes % (A) 5 %; Neutrophils % (A) 88 %; Platelet Count 101 k/uL (150-450); RBC 4.25 m/uL (4.30-5.90); RDW 16.5 % (11.5-15.5); WBC 15.8 k/uL (3.8-10.6)
[2017-12-02] MEDS: PIPERACILLIN-TAZOBACTAM 3.375 GM in DEXTROSE/WATER 1 50ML.BAG IVPB SCH ×2 (02:55→08:44)
[2017-12-02] MEDS: SODIUM CHLORIDE 0.9% 1,000 ML IV SCH (02:55)
[2017-12-02 03:00] LABS: Albumin 2.3 g/dL (3.5-5.0); Anion Gap 17 mmol/L; Carbon Dioxide 19 mmol/L (22-30); Chloride 96 mmol/L (98-107); Glucose 198 mg/dL (74-99); Sodium 132 mmol/L (137-145); Total Bilirubin 0.7 mg/dL (0.2-1.3); Total Protein 5.2 g/dL (6.3-8.2)
[2017-12-02 03:07] LABS: Calcium 6.5 mg/dL (8.4-10.2)
[2017-12-02 03:08] LABS: AST 25 U/L (17-59); Blood Urea Nitrogen 9 mg/dL (9-20); Magnesium 1.2 mg/dL (1.6-2.3); Phosphorus 3.3 mg/dL (2.5-4.5); Potassium 3.4 mmol/L (3.5-5.1)
[2017-12-02 03:09] LABS: ALT 14 U/L (21-72); Alkaline Phosphatase 161 U/L (38-126)
[2017-12-02 03:20] LABS: Creatine Kinase MB 2.8 ng/mL (0.0-2.4)
[2017-12-02 03:55] LABS: Troponin I 0.218 ng/mL (0.000-0.034)
[2017-12-02] MEDS: MAGNESIUM SULFATE-D5W PMX 1 GM in DEXTROSE/WATER 1 100ML.BAG IVPB SCH ×2 (06:56→08:30)
[2017-12-02] MEDS: ALBUTEROL NEBULIZED 2.5 MG/3 ML INHALATION PRN (07:04)
[2017-12-02] MEDS ORDERED: PANTOPRAZOLE 40 MG TABLET PO SCH (07:30)
--- NOTE | 2017-12-02 07:43 | P.CRDCN ---
History of Present Illness Consult date: 12/02/17 Chief complaint: Shortness of breath History of present illness: This is a 57-year-old gentleman with no significant cardiac history but history of chronic hypoxic respiratory failure secondary to COPD and the patient is on oxygen at home 24 hours where he is on 2 L of oxygen, presented to the emergency room after he passed out at home. The patient has not been feeling well for the last few weeks. He has been more short of breath. No cough or sputum and no fever or chills. No chest pain or chest discomfort. Over the last 24 hours the shortness of breath has gotten worse and yesterday he was at home with his friend when he passed out. Again he did not have any symptoms of chest pain or chest discomfort before he passed out. Clearly his shortness of breath was quite worse for the last 24 hours. The patient was brought to the emergency room where the chest x-ray showed no acute abnormalities. The d- dimer came in to be elevated and subsequently the patient underwent a CTA of the chest which revealed bilateral PE with complete occlusion of the left pulmonary artery. The patient was tachycardic in the ER. The EKG showed sinus tachycardia. The troponin is a slightly elevated. The patient underwent an echocardiogram that side which I reviewed today and that showed severe lead dilated right ventricle and evidence of right ventricular strain. Currently the patient is in mild acute respiratory distress. He is on Ventimask satting in the lower 90s. Beside that he is hemodynamically unstable and requiring small dose of Levothroid. The heart rate has been in the 100 beats per minutes. The patient does not have any history of coronary artery disease or congestive heart failure or cardiac arrhythmia in the past. He never seen by a child care supervisor in the past. He does not have any diabetes or hypertension or dyslipidemia. Unfortunately he continues to smoke. Past Medical History Past Medical History: GERD/Reflux, Osteoarthritis (OA), Seizure Disorder, Syncope Additional Past Medical History / Comment(s): 1 SEIZURE APPROX 2010, alcoholism , alcohol withdrawal syndrome, delirium tremors, past acute psychosis, DJD, diverticular disease, SBO 2ndary to incarcerated R inguinal hernia.hands tremors. History of Any Multi-Drug Resistant Organisms: None Reported Past Surgical History: Appendectomy, Heart Catheterization, Hernia Repair, Joint Replacement, Orthopedic Surgery, Tonsillectomy Additional Past Surgical History / Comment(s): Colonoscopies and polypectomies, 10/21/15 normal cardiac cath, multiple inguinal hernia surg., bilateral knee arthroscopies and pt states bilateral knee arthroplasties. Past Anesthesia/Blood Transfusion Reactions: No Reported Reaction Smoking Status: Current every day smoker - Past Family History Father Family Medical History: Coronary Artery Disease (CAD), Myocardial Infarction (ME ) Additional Family Medical History / Comment(s): Father of a ME at the age of 73 yrs. Mother Family Medical History: Cancer Additional Family Medical History / Comment(s): Mother had breast cancer. She is 81 yrs old and now healthy. Medications and Allergies Home Medications Medication Instructions Recorded Confirmed Type Ondansetron Odt [Zofran ODT] 4 mg PO Q8HR PRN #20 tab 10/16/17 12/01/17 Rx Albuterol Inhaler [Ventolin Hfa 2 puff INHALATION RT-Q6H PRN 12/01/17 12/01/17 History Inhaler] Fluticasone/Vilanterol [Breo 1 puff INHALATION RT-DAILY 12/01/17 12/01/17 History Ellipta 100-25 Mcg Inhaler] Furosemide [Lasix] 40 mg PO DAILY 12/01/17 12/01/17 History Gabapentin [Neurontin] 300 mg PO BID 12/01/17 12/01/17 History Ibuprofen [Advil] 200 mg PO Q6HR PRN 12/01/17 12/01/17 History Magnesium Chloride [Slow Mag] 64 mg PO DAILY 12/01/17 12/01/17 History Menthol [Biofreeze] 1 applic TOPICAL DAILY PRN 12/01/17 12/01/17 History Naltrexone HCl [Revia] 50 mg PO DAILY 12/01/17 12/01/17 History Pantoprazole Sodium [Protonix] 40 mg PO DAILY 12/01/17 12/01/17 History Potassium Chloride ER [K-Dur 20] 40 meq PO DAILY 12/01/17 12/01/17 History QUEtiapine [SEROquel] 200 mg PO BID 12/01/17 12/01/17 History busPIRone HCl [Buspar] 10 mg PO DAILY 12/01/17 12/01/17 History Allergies Allergy/AdvReac Type Severity Reaction Status Date / Time tramadol AdvReac Mild Itching Verified 12/01/17 08:58 Physical Exam Vitals: Vital Signs Temp Pulse Resp BP Pulse Ox 12/02/17 07:30 101 H 21 110/85 93 L 12/02/17 07:28 99 12/02/17 07:08 90 100 12/02/17 07:00 92 14 99/75 99 12/02/17 06:30 94 14 99/76 99 12/02/17 06:00 97 16 111/79 99 12/02/17 05:30 97 15 81/68 99 12/02/17 05:00 99 16 85/69 98 12/02/17 04:30 101 H 15 84/66 95 12/02/17 04:00 97.5 F L 104 H 16 82/65 96 12/02/17 03:30 169 H 15 77/63 96 12/02/17 03:00 112 H 16 90/69 100 12/02/17 02:30 72 28 H 87/61 88 L 12/02/17 02:00 97.5 F L 108 H 24 99 12/02/17 01:30 106 H 16 78/65 96 12/02/17 01:00 110 H 18 76/63 97 12/02/17 00:30 110 H 21 85/67 96 12/02/17 00:00 97.8 F 126 H 16 99/71 88 L 12/01/17 23:51 105 H 12/01/17 23:43 115 H 12/01/17 23:30 117 H 28 H 82/61 94 L 12/01/17 23:00 118 H 23 90/64 96 12/01/17 22:30 121 H 19 97/74 97 12/01/17 22:00 97.4 F L 123 H 24 86/67 95 12/01/17 21:41 122/60 12/01/17 18:41 120 H 16 113/58 93 L 12/01/17 17:00 120 H 16 135/88 93 L 12/01/17 12:25 126 H 16 124/76 93 L 12/01/17 09:45 120 H 16 105/66 94 L 12/01/17 09:27 130 H 12/01/17 09:00 22 12/01/17 08:52 96.8 F L 132 H 22 100/67 95 Intake and Output 12/01/17 12/02/17 12/02/17 22:59 06:59 14:59 Intake Total 310 3050.136 125 Output Total 300 Balance 310 2750.136 125 Intake: IV 250 2787.5 125 Piperacillin-Tazobactam 3 37.5 .375 gm In Dextrose/Water 1 50ml.bag @ 12.5 mls/hr IVPB Q8HR [facility] Rx#: [id number] Sodium Chloride 0.9% 1, 250 2750 125 000 ml @ 125 mls/hr IV . Q8H [facility] Rx#:[id number] Intake, IV Titration 202.636 Amount Heparin Sod,Pork in 0.45% 185.886 NaCl 25,000 unit In 0.45 % NaCl 1 500ml.bag @ 18 UNITS/KG/HR 26.94 mls/hr IV .[id number] [facility] Rx#: [id number] Norepinephrin 4 mg-0.9% 16.75 Ns Pmx 4 mg In 250 ml @ Titrate IV .Q0M [facility] Rx#: [id number] Oral 60 60 Output: Urine 300 Other: Voiding Method Diaper Weight 82.3 kg - Constitutional General appearance: mild distress - Respiratory Respiratory: bilateral: CTA - Cardiovascular Rhythm: regular Heart sounds: normal: S1, S2 Results 12/02/17 02:25 12/02/17 02:25 Cardiac Enzymes 12/01/17 12/01/17 12/01/17 Range/Units 13:53 13:53 19:42 AST 20 (17-59) U/L CK-MB (CK-2) 1.8 2.5 H* (0.0-2.4) ng/mL Troponin I 0.376 H* 0.308 H* (0.000-0.034) ng/mL 12/02/17 12/02/17 Range/Units 02:25 02:25 AST 25 (17-59) U/L CK-MB (CK-2) 2.8 H* (0.0-2.4) ng/mL Troponin I 0.218 H* (0.000-0.034) ng/mL Coagulation 12/01/17 12/01/17 12/02/17 Range/Units 13:53 19:42 02:25 PT 13.9 H 11.9 (9.0-12.0) sec APTT 27.8 28.1 >200.0 H* (22.0-30.0) sec CBC 12/01/17 12/01/17 12/02/17 Range/Units 13:53 19:42 02:25 WBC 16.6 H 14.0 H 15.8 H (3.8-10.6) k/uL RBC 4.68 4.43 4.25 L (4.30-5.90) m/uL Hgb 15.9 15.0 14.3 (13.0-17.5) gm/dL Hct 47.5 46.0 44.7 (39.0-53.0) % Plt Count 202 152 101 L (150-450) k/uL Comprehensive Metabolic Panel 12/01/17 12/02/17 Range/Units 13:53 02:25 Sodium 135 L 132 L (137-145) mmol/L Potassium 3.1 L 3.4 L (3.5-5.1) mmol/L Chloride 91 L 96 L (98-107) mmol/L Carbon Dioxide 26 19 L (22-30) mmol/L BUN 6 L 9 (9-20) mg/dL Creatinine 1.00 1.00 (0.66-1.25) mg/dL Glucose 169 H 198 H (74-99) mg/dL Calcium 7.4 L 6.5 L* (8.4-10.2) mg/dL AST 20 25 (17-59) U/L ALT 17 L 14 L (21-72) U/L Alkaline Phosphatase 255 H 161 H (38-126) U/L Total Protein 6.2 L 5.2 L (6.3-8.2) g/dL Albumin 3.1 L 2.3 L (3.5-5.0) g/dL Current Medications Generic Name Dose Route Start Last Admin Trade Name Freq PRN Reason Stop Dose Admin Albuterol Sulfate 2.5 mg 12/01/17 15:40 12/02/17 07:04 Ventolin Nebulized INHALATION 2.5 mg RT-Q6H PRN Administration Shortness Of Breath Aspirin 325 mg 12/02/17 09:00 Aspirin PO DAILY [facility] Budesonide/Formoterol Fumarate 2 puff 12/02/17 08:00 12/02/17 07:04 Symbicort 80-4.5 Mcg Inhaler INHALATION 2 puff RT-BID [facility] Administration Buspirone HCl 10 mg 12/02/17 09:00 Buspar PO DAILY [facility] Furosemide 40 mg 12/02/17 09:00 Lasix PO DAILY [facility] Gabapentin 300 mg 12/01/17 21:00 12/01/17 23:28 Neurontin PO 300 mg BID [facility] Administration Heparin Sodium (Porcine) 0 unit 12/01/17 19:27 Heparin IV PER PROTOCOL PRN Low PTT Protocol Sodium Chloride 1,000 mls @ 125 mls/hr 12/01/17 18:15 12/02/17 02:55 Saline 0.9% IV 125 mls/hr .Q8H [facility] Administration Heparin Sodium/Sodium Chloride 500 mls @ 26.94 mls/hr 12/01/17 19:30 04:23 25,000 unit/ Sodium Chloride IV 15 units/kg/hr .[id number] [facility] 22.45 mls/hr Titration Protocol 18 UNITS/KG/HR Norepinephrine Bitartrate 4 mg in 250 mls @ 0 mls/hr 12/02/17 01:45 12/02/17 05:53 Levophed-0.9% Nacl 4 Mg/250ml Pmx IV 6 mcg/min .Q0M [facility] 22.5 mls/hr Titration Protocol Titrate Acetaminophen 1,000 mg/ IV 100 mls @ 400 mls/hr 12/02/17 02:36 12/02/17 04:24 Solution IVPB 12/02/17 18:14 400 mls/hr Q6HR PRN Administration Mild Pain Piperacillin/Tazobactam/ 50 mls @ 12.5 mls/hr 12/02/17 02:45 12/02/17 02:55 Dextrose 3.375 gm/ IV Solution IVPB 12.5 mls/hr Q8HR [facility] Administration Magnesium Sulfate/Dextrose 1 100 mls @ 100 mls/hr 12/02/17 05:45 12/02/17 06: 56 gm/ IV Solution IVPB 12/02/17 08:44 100 mls/hr Q1H [facility] Administration Ibuprofen 200 mg 12/01/17 15:40 Advil PO Q6HR PRN Mild Pain Magnesium Oxide 400 mg 12/02/17 09:00 Mag-Ox PO DAILY [facility] Methyl Salicylate 1 applic 12/01/17 15:40 Thera-Gesic Cream TOPICAL DAILY PRN Pain Morphine Sulfate 4 mg 12/01/17 15:35 Morphine Sulfate (Inj) IV Q5M PRN Moderate-Severe Chest Pain Naltrexone HCl 50 mg 12/02/17 09:00 Revia PO DAILY [facility] Nitroglycerin 0.4 mg 12/01/17 15:35 Nitrostat SUBLINGUAL Q5M PRN Chest Pain Ondansetron HCl 4 mg 12/01/17 15:40 Zofran Odt PO Q8HR PRN Nausea Pantoprazole Sodium 40 mg 12/02/17 07:30 Protonix PO AC-BRKFST [facility] Potassium Chloride 40 meq 12/02/17 09:00 K-Dur 20 PO DAILY [facility] Potassium Chloride 20 meq 12/02/17 08:00 K-Dur 20 PO 12/02/17 09:01 Q1HR [facility] Protocol Quetiapine Fumarate 200 mg 12/01/17 21:00 12/01/17 23:28 Seroquel PO 200 mg BID [facility] Administration Intake and Output 12/01/17 12/02/17 12/02/17 22:59 06:59 14:59 Intake Total 310 3050.136 125 Output Total 300 Balance 310 2750.136 125 Intake: IV 250 2787.5 125 Piperacillin-Tazobactam 3 37.5 .375 gm In Dextrose/Water 1 50ml.bag @ 12.5 mls/hr IVPB Q8HR [facility] Rx#: [id number] Sodium Chloride 0.9% 1, 250 2750 125 000 ml @ 125 mls/hr IV . Q8H [facility] Rx#:[id number] Intake, IV Titration 202.636 Amount Heparin Sod,Pork in 0.45% 185.886 NaCl 25,000 unit In 0.45 % NaCl 1 500ml.bag @ 18 UNITS/KG/HR 26.94 mls/hr IV .[id number] [facility] Rx#: [id number] Norepinephrin 4 mg-0.9% 16.75 Ns Pmx 4 mg In 250 ml @ Titrate IV .Q0M [facility] Rx#: [id number] Oral 60 60 Output: Urine 300 Other: Voiding Method Diaper Weight 82.3 kg 12/02/17 02:25 12/02/17 02:25 Assessment and Plan Assessment: Assessment #1 massive PE #2 hemodynamic instability secondary to the above #3 hypotension and tachycardia secondary to BE #4 chronic hypoxic respiratory failure #5 known COPD Plan #1 continue the IV heparin for now #2 the patient is in process to be transferred to the current [facility] to have the EKO #3 continue blood pressure support using Levophed #4 the echocardiogram bedside was reviewed and revealed severely dilated right ventricle was evidence of RV strain #5 if there is any delay in transferring the patient he might benefit from systemic TPA. Thank you for allowing us participate in his care and we'll continue following up with the patient
[2017-12-02] MEDS ORDERED: POTASSIUM CHLORIDE ER 20 MEQ TAB.ER PO SCH ×2 (08:00→09:00)
[2017-12-02] MEDS ORDERED: SYMBICORT 80-4.5 MCG INHALER INHALATION SCH (08:00)
[2017-12-02] MEDS ORDERED: Potassium Replacement Protocol 1 EACH MISC MISCELLANE PRN (08:28)
[2017-12-02] MEDS ORDERED: NALTREXONE HCL 50 MG TAB PO SCH (09:00)
[2017-12-02] MEDS ORDERED: MAGNESIUM OXIDE 400 MG TAB PO SCH (09:00)
[2017-12-02] MEDS ORDERED: FUROSEMIDE 40 MG TAB PO SCH (09:00)
[2017-12-02] MEDS ORDERED: ASPIRIN 325 MG TAB PO SCH (09:00)
[2017-12-02] MEDS ORDERED: POTASSIUM CHLORIDE 10 MEQ in WATER FOR INJECTION 1 100ML.BAG IVPB SCH (09:00)
[2017-12-02] MEDS ORDERED: busPIRone HCl 10 MG TAB PO SCH (09:00)
--- NOTE | 2017-12-02 09:05 | P.HPIM ---
History of Present Illness H&P Date: 12/02/17 Chief Complaint: Shortness of breath This is a 57-year-old male, patient of Dr. Currie. He has a known past medical history of COPD, chronic respiratory failure home O2 dependent, nicotine dependence and alcohol abuse. Patient presents to the emergency room after having increasing shortness of breath and passing out at home. Patient reports that he passed out a couple times. And he has not been feeling good for the last few weeks. Denies any cough or chest pain. Shortness of breath continued to worsen and came into the emergency room for further evaluation and treatment. Chest x-ray showed no acute abnormalities. D-dimer was elevated and patient underwent a computed tomography scan of the chest that revealed bilateral PE with complete occlusion of the left pulmonary artery. Patient has been tachycardic had elevated troponins. Cardiology and pulmonary consulted. He was omitted to the ICU. Patient underwent an echocardiogram which reviewed by cardiology showed severe dilated right ventricle and evidence of a right ventricular strain. Patient did require to be placed on Ventimask and did require small doses of Levophed. Patient history been seen by cardiology and pulmonary service. They have a lactic acid level VII.9 which is down to 4.2 after fluids. He will be transferred to [facility] to have the EK oh. Patient is already on IV heparin. Patient denies any nausea vomiting, bowel movement changes urinary symptoms any fevers chills or sweats. Review of Systems Please refer to HPI otherwise unremarkable Past Medical History Past Medical History: GERD/Reflux, Osteoarthritis (OA), Seizure Disorder, Syncope Additional Past Medical History / Comment(s): 1 SEIZURE APPROX 2010, alcoholism , alcohol withdrawal syndrome, delirium tremors, past acute psychosis, DJD, diverticular disease, SBO 2ndary to incarcerated R inguinal hernia.hands tremors. History of Any Multi-Drug Resistant Organisms: None Reported Past Surgical History: Appendectomy, Heart Catheterization, Hernia Repair, Joint Replacement, Orthopedic Surgery, Tonsillectomy Additional Past Surgical History / Comment(s): Colonoscopies and polypectomies, 10/21/15 normal cardiac cath, multiple inguinal hernia surg., bilateral knee arthroscopies and pt states bilateral knee arthroplasties. Past Anesthesia/Blood Transfusion Reactions: No Reported Reaction Smoking Status: Current every day smoker - Past Family History Father Family Medical History: Coronary Artery Disease (CAD), Myocardial Infarction (AZ ) Additional Family Medical History / Comment(s): Father of a [place] at the age of 73 yrs. Mother Family Medical History: Cancer Additional Family Medical History / Comment(s): Mother had breast cancer. She is 81 yrs old and now healthy. Medications and Allergies Home Medications Medication Instructions Recorded Confirmed Type Ondansetron Odt [Zofran ODT] 4 mg PO Q8HR PRN #20 tab 10/16/17 12/01/17 Rx Albuterol Inhaler [Ventolin Hfa 2 puff INHALATION RT-Q6H PRN 12/01/17 12/01/17 History Inhaler] Fluticasone/Vilanterol [Breo 1 puff INHALATION RT-DAILY 12/01/17 12/01/17 History Ellipta 100-25 Mcg Inhaler] Furosemide [Lasix] 40 mg PO DAILY 12/01/17 12/01/17 History Gabapentin [Neurontin] 300 mg PO BID 12/01/17 12/01/17 History Ibuprofen [Advil] 200 mg PO Q6HR PRN 12/01/17 12/01/17 History Magnesium Chloride [Slow Mag] 64 mg PO DAILY 12/01/17 12/01/17 History Menthol [Biofreeze] 1 applic TOPICAL DAILY PRN 12/01/17 12/01/17 History Naltrexone HCl [Revia] 50 mg PO DAILY 12/01/17 12/01/17 History Pantoprazole Sodium [Protonix] 40 mg PO DAILY 12/01/17 12/01/17 History Potassium Chloride ER [K-Dur 20] 40 meq PO DAILY 12/01/17 12/01/17 History QUEtiapine [SEROquel] 200 mg PO BID 12/01/17 12/01/17 History busPIRone HCl [Buspar] 10 mg PO DAILY 12/01/17 12/01/17 History Allergies Allergy/AdvReac Type Severity Reaction Status Date / Time tramadol AdvReac Mild Itching Verified 12/01/17 08:58 Physical Exam Vitals: Vital Signs Temp Pulse Resp BP Pulse Ox 12/02/17 07:30 101 H 21 110/85 93 L 12/02/17 07:28 99 12/02/17 07:08 90 100 12/02/17 07:00 92 14 99/75 99 12/02/17 06:30 94 14 99/76 99 12/02/17 06:00 97 16 111/79 99 12/02/17 05:30 97 15 81/68 99 12/02/17 05:00 99 16 85/69 98 12/02/17 04:30 101 H 15 84/66 95 12/02/17 04:00 97.5 F L 104 H 16 82/65 96 12/02/17 03:30 169 H 15 77/63 96 12/02/17 03:00 112 H 16 90/69 100 12/02/17 02:30 72 28 H 87/61 88 L 12/02/17 02:00 97.5 F L 108 H 24 99 12/02/17 01:30 106 H 16 78/65 96 12/02/17 01:00 110 H 18 76/63 97 12/02/17 00:30 110 H 21 85/67 96 12/02/17 00:00 97.8 F 126 H 16 99/71 88 L 12/01/17 23:51 105 H 12/01/17 23:43 115 H 12/01/17 23:30 117 H 28 H 82/61 94 L 12/01/17 23:00 118 H 23 90/64 96 12/01/17 22:30 121 H 19 97/74 97 12/01/17 22:00 97.4 F L 123 H 24 86/67 95 12/01/17 21:41 122/60 12/01/17 18:41 120 H 16 113/58 93 L 12/01/17 17:00 120 H 16 135/88 93 L 12/01/17 12:25 126 H 16 124/76 93 L 12/01/17 09:45 120 H 16 105/66 94 L 12/01/17 09:27 130 H 12/01/17 09:00 22 Intake and Output 12/01/17 12/02/17 12/02/17 22:59 06:59 14:59 Intake Total 310 3050.136 185 Output Total 300 Balance 310 2750.136 185 Intake: IV 250 2787.5 125 Piperacillin-Tazobactam 3 37.5 .375 gm In Dextrose/Water 1 50ml.bag @ 12.5 mls/hr IVPB Q8HR [facility] Rx#: [id number] Sodium Chloride 0.9% 1, 250 2750 125 000 ml @ 125 mls/hr IV . Q8H [facility] Rx#:[id number] Intake, IV Titration 202.636 60 Amount Heparin Sod,Pork in 0.45% 185.886 NaCl 25,000 unit In 0.45 % NaCl 1 500ml.bag @ 18 UNITS/KG/HR 26.94 mls/hr IV .[id number] [facility] Rx#: [id number] Norepinephrin 4 mg-0.9% 16.75 60 Ns Pmx 4 mg In 250 ml @ Titrate IV .Q0M [facility] Rx#: [id number] Oral 60 60 Output: Urine 300 Other: Voiding Method Diaper Weight 82.3 kg Head normocephalic Neck supple Lungs clear to auscultation bilaterally no wheezing or crackles Heart regular rate and rhythm S1-S2, no rub or gallop Abdomen is soft nontender nondistended positive bowel sounds no hepatosplenomegaly Extremities no edema Neuro alert and orientated to 3 Results CBC & Chem 7: 12/02/17 02:25 12/02/17 02:25 Labs: Abnormal Lab Results - Last 24 Hours (Table) 12/01/17 12/01/17 12/01/17 Range/Units 13:53 13:53 13:53 WBC 16.6 H (3.8-10.6) k/uL RBC (4.30-5.90) m/uL MCV 101.7 H (80.0-100.0) fL RDW 17.2 H (11.5-15.5) % Plt Count (150-450) k/uL Neutrophils # 15.1 H (1.3-7.7) k/uL Lymphocytes # 0.7 L (1.0-4.8) k/uL PT 13.9 H (9.0-12.0) sec INR 1.5 H (<1.2) APTT (22.0-30.0) sec D-Dimer 6.44 H (<0.60) mg/L FEU ABG pO2 (83-108) mmHg VBG pH (7.31-7.41) Sodium 135 L (137-145) mmol/L Potassium 3.1 L (3.5-5.1) mmol/L Chloride 91 L (98-107) mmol/L Carbon Dioxide (22-30) mmol/L BUN 6 L (9-20) mg/dL Glucose 169 H (74-99) mg/dL POC Glucose (mg/dL) (75-99) mg/dL Plasma Lactic Acid Chet (0.7-2.0) mmol/L Calcium 7.4 L (8.4-10.2) mg/dL Magnesium (1.6-2.3) mg/dL ALT 17 L (21-72) U/L Alkaline Phosphatase 255 H (38-126) U/L CK-MB (CK-2) (0.0-2.4) ng/mL Troponin I (0.000-0.034) ng/mL Total Protein 6.2 L (6.3-8.2) g/dL Albumin 3.1 L (3.5-5.0) g/dL Urine Protein (Negative) Urine WBC (0-5) /hpf Hyaline Casts (0-2) /lpf Urine Mucus (None) /hpf 12/01/17 12/01/17 12/01/17 Range/Units 13:53 13:53 17:00 WBC (3.8-10.6) k/uL RBC (4.30-5.90) m/uL MCV (80.0-100.0) fL RDW (11.5-15.5) % Plt Count (150-450) k/uL Neutrophils # (1.3-7.7) k/uL Lymphocytes # (1.0-4.8) k/uL PT (9.0-12.0) sec INR (<1.2) APTT (22.0-30.0) sec D-Dimer (<0.60) mg/L FEU ABG pO2 (83-108) mmHg VBG pH 7.43 H (7.31-7.41) Sodium (137-145) mmol/L Potassium (3.5-5.1) mmol/L Chloride (98-107) mmol/L Carbon Dioxide (22-30) mmol/L BUN (9-20) mg/dL Glucose (74-99) mg/dL POC Glucose (mg/dL) (75-99) mg/dL Plasma Lactic Acid Chet 5.1 H* (0.7-2.0) mmol/L Calcium (8.4-10.2) mg/dL Magnesium (1.6-2.3) mg/dL ALT (21-72) U/L Alkaline Phosphatase (38-126) U/L CK-MB (CK-2) (0.0-2.4) ng/mL Troponin I 0.376 H* (0.000-0.034) ng/mL Total Protein (6.3-8.2) g/dL Albumin (3.5-5.0) g/dL Urine Protein (Negative) Urine WBC (0-5) /hpf Hyaline Casts (0-2) /lpf Urine Mucus (None) /hpf 12/01/17 12/01/17 12/01/17 Range/Units 17:00 18:30 19:42 WBC (3.8-10.6) k/uL RBC (4.30-5.90) m/uL MCV (80.0-100.0) fL RDW (11.5-15.5) % Plt Count (150-450) k/uL Neutrophils # (1.3-7.7) k/uL Lymphocytes # (1.0-4.8) k/uL PT (9.0-12.0) sec INR (<1.2) APTT (22.0-30.0) sec D-Dimer (<0.60) mg/L FEU ABG pO2 (83-108) mmHg VBG pH (7.31-7.41) Sodium (137-145) mmol/L Potassium (3.5-5.1) mmol/L Chloride (98-107) mmol/L Carbon Dioxide (22-30) mmol/L BUN (9-20) mg/dL Glucose (74-99) mg/dL POC Glucose (mg/dL) (75-99) mg/dL Plasma Lactic Acid Chet 6.1 H* (0.7-2.0) mmol/L Calcium (8.4-10.2) mg/dL Magnesium (1.6-2.3) mg/dL ALT (21-72) U/L Alkaline Phosphatase (38-126) U/L CK-MB (CK-2) 2.5 H* (0.0-2.4) ng/mL Troponin I 0.308 H* (0.000-0.034) ng/mL Total Protein (6.3-8.2) g/dL Albumin (3.5-5.0) g/dL Urine Protein 2+ H (Negative) Urine WBC 7 H (0-5) /hpf Hyaline Casts 169 H (0-2) /lpf Urine Mucus Few H (None) /hpf 12/01/17 12/01/17 12/01/17 Range/Units 19:42 19:42 21:55 WBC 14.0 H (3.8-10.6) k/uL RBC (4.30-5.90) m/uL MCV 103.9 H (80.0-100.0) fL RDW 16.7 H (11.5-15.5) % Plt Count (150-450) k/uL Neutrophils # 13.3 H (1.3-7.7) k/uL Lymphocytes # 0.4 L (1.0-4.8) k/uL PT (9.0-12.0) sec INR 1.3 H (<1.2) APTT (22.0-30.0) sec D-Dimer (<0.60) mg/L FEU ABG pO2 (83-108) mmHg VBG pH (7.31-7.41) Sodium (137-145) mmol/L Potassium (3.5-5.1) mmol/L Chloride (98-107) mmol/L Carbon Dioxide (22-30) mmol/L BUN (9-20) mg/dL Glucose (74-99) mg/dL POC Glucose (mg/dL) 291 H (75-99) mg/dL Plasma Lactic Acid Chet (0.7-2.0) mmol/L Calcium (8.4-10.2) mg/dL Magnesium (1.6-2.3) mg/dL ALT (21-72) U/L Alkaline Phosphatase (38-126) U/L CK-MB (CK-2) (0.0-2.4) ng/mL Troponin I (0.000-0.034) ng/mL Total Protein (6.3-8.2) g/dL Albumin (3.5-5.0) g/dL Urine Protein (Negative) Urine WBC (0-5) /hpf Hyaline Casts (0-2) /lpf Urine Mucus (None) /hpf 12/01/17 12/02/17 12/02/17 Range/Units 22:35 02:17 02:25 WBC (3.8-10.6) k/uL RBC (4.30-5.90) m/uL MCV (80.0-100.0) fL RDW (11.5-15.5) % Plt Count (150-450) k/uL Neutrophils # (1.3-7.7) k/uL Lymphocytes # (1.0-4.8) k/uL PT (9.0-12.0) sec INR (<1.2) APTT (22.0-30.0) sec D-Dimer (<0.60) mg/L FEU ABG pO2 74 L (83-108) mmHg VBG pH (7.31-7.41) Sodium (137-145) mmol/L Potassium (3.5-5.1) mmol/L Chloride (98-107) mmol/L Carbon Dioxide (22-30) mmol/L BUN (9-20) mg/dL Glucose (74-99) mg/dL POC Glucose (mg/dL) (75-99) mg/dL Plasma Lactic Acid Chet 7.9 H* (0.7-2.0) mmol/L Calcium (8.4-10.2) mg/dL Magnesium (1.6-2.3) mg/dL ALT (21-72) U/L Alkaline Phosphatase (38-126) U/L CK-MB (CK-2) 2.8 H* (0.0-2.4) ng/mL Troponin I 0.218 H* (0.000-0.034) ng/mL Total Protein (6.3-8.2) g/dL Albumin (3.5-5.0) g/dL Urine Protein (Negative) Urine WBC (0-5) /hpf Hyaline Casts (0-2) /lpf Urine Mucus (None) /hpf 12/02/17 12/02/17 12/02/17 Range/Units 02:25 02:25 02:25 WBC 15.8 H (3.8-10.6) k/uL RBC 4.25 L (4.30-5.90) m/uL MCV 105.3 H (80.0-100.0) fL RDW 16.5 H (11.5-15.5) % Plt Count 101 L (150-450) k/uL Neutrophils # 14.0 H (1.3-7.7) k/uL Lymphocytes # 0.9 L (1.0-4.8) k/uL PT (9.0-12.0) sec INR (<1.2) APTT >200.0 H* (22.0-30.0) sec D-Dimer (<0.60) mg/L FEU ABG pO2 (83-108) mmHg VBG pH (7.31-7.41) Sodium 132 L (137-145) mmol/L Potassium 3.4 L (3.5-5.1) mmol/L Chloride 96 L (98-107) mmol/L Carbon Dioxide 19 L (22-30) mmol/L BUN (9-20) mg/dL Glucose 198 H (74-99) mg/dL POC Glucose (mg/dL) (75-99) mg/dL Plasma Lactic Acid Chet (0.7-2.0) mmol/L Calcium 6.5 L* (8.4-10.2) mg/dL Magnesium 1.2 L (1.6-2.3) mg/dL ALT 14 L (21-72) U/L Alkaline Phosphatase 161 H (38-126) U/L CK-MB (CK-2) (0.0-2.4) ng/mL Troponin I (0.000-0.034) ng/mL Total Protein 5.2 L (6.3-8.2) g/dL Albumin 2.3 L (3.5-5.0) g/dL Urine Protein (Negative) Urine WBC (0-5) /hpf Hyaline Casts (0-2) /lpf Urine Mucus (None) /hpf 12/02/17 Range/Units 02:25 WBC (3.8-10.6) k/uL RBC (4.30-5.90) m/uL MCV (80.0-100.0) fL RDW (11.5-15.5) % Plt Count (150-450) k/uL Neutrophils # (1.3-7.7) k/uL Lymphocytes # (1.0-4.8) k/uL PT (9.0-12.0) sec INR (<1.2) APTT (22.0-30.0) sec D-Dimer (<0.60) mg/L FEU ABG pO2 (83-108) mmHg VBG pH (7.31-7.41) Sodium (137-145) mmol/L Potassium (3.5-5.1) mmol/L Chloride (98-107) mmol/L Carbon Dioxide (22-30) mmol/L BUN (9-20) mg/dL Glucose (74-99) mg/dL POC Glucose (mg/dL) (75-99) mg/dL Plasma Lactic Acid Chet 4.2 H* (0.7-2.0) mmol/L Calcium (8.4-10.2) mg/dL Magnesium (1.6-2.3) mg/dL ALT (21-72) U/L Alkaline Phosphatase (38-126) U/L CK-MB (CK-2) (0.0-2.4) ng/mL Troponin I (0.000-0.034) ng/mL Total Protein (6.3-8.2) g/dL Albumin (3.5-5.0) g/dL Urine Protein (Negative) Urine WBC (0-5) /hpf Hyaline Casts (0-2) /lpf Urine Mucus (None) /hpf Thrombosis Risk Factor Assmnt - Choose All That Apply Any of the Below Risk Factors Present?: Yes Each Factor Represents 1 point: Abnormal pulmonary function (COPD), Age 41-60 years, Obesity (BMI >25) Other Risk Factors: No Other congenital or acquired thrombophilia - If yes, enter type in comment: No Thrombosis Risk Factor Assessment Total Risk Factor Score: 3 Thrombosis Risk Factor Assessment Level: Moderate Risk Assessment and Plan Assessment: 1. Large massive bilateral pulmonary emboli. There is complete occlusion of the left pulmonary artery and evidence for right heart strain noted on CAT scan. Her cardiology echo had revealed severely dilated right ventricle with evidence of right ventricular strain. Patient will be transferred to [facility] to have the EKO. Continue with IV heparin 2. Acute on chronic hypoxic respiratory failure. Secondary to PE and known history of COPD 3. Syncopal episode likely secondary to the bilateral PE 4. Hypotension and tachycardia secondary to PE 5. History of COPD stable 6. History of nicotine dependence 7. History of alcohol dependency Patient will be transferred to [facility] this morning Time with Patient: Greater than 30 (Greater than 60% of the total time spent in counseling and coordination of care.I performed an examination of the patient and discussed their management with the physician Pharmaceutical Plant Operator. I have reviewed the Physician Pharmaceutical Plant Operator's notes and agree with the documented findings and plan of care)
--- NOTE | 2017-12-02 09:06 | P.DS ---
Providers Date of admission: 12/01/17 15:35 Expected date of discharge: 12/02/17 Attending physician: Benita Holland Consults: 12/01/17 15:35 Consult Physician Urgent Consulting Provider: Gaston Hummel Consult Reason/Comments: Elevated troponin Do you want consulting provider notified?: Yes 12/01/17 18:12 Consult Physician Stat Consulting Provider: Garfield Flynn Consult Reason/Comments: Intermediate probability for pulmonary embolism noticed on the VQ scan Do you want consulting provider notified?: Yes 12/02/17 01:43 Consult Physician Stat Consulting Provider: Pipe Porras Consult Reason/Comments: PE Do you want consulting provider notified?: Already Contacted [facility]: Discharge diagnosis 1. Large massive bilateral pulmonary emboli. There is complete occlusion of the left pulmonary artery and evidence for right heart strain noted on CAT scan. Her cardiology echo had revealed severely dilated right ventricle with evidence of right ventricular strain. Patient will be transferred to [facility] to have the EKO. Continue with IV heparin 2. Acute on chronic hypoxic respiratory failure. Secondary to PE and known history of COPD 3. Syncopal episode likely secondary to the bilateral PE 4. Hypotension and tachycardia secondary to PE 5. History of COPD stable 6. History of nicotine dependence 7. History of alcohol dependency Patient will be transferred to [facility] this morning Hospital course This is a 57-year-old male, patient of Dr. Currie. He has a known past medical history of COPD, chronic respiratory failure home O2 dependent, nicotine dependence and alcohol abuse. Patient presents to the emergency room after having increasing shortness of breath and passing out at home. Patient reports that he passed out a couple times. And he has not been feeling good for the last few weeks. Denies any cough or chest pain. Shortness of breath continued to worsen and came into the emergency room for further evaluation and treatment. Chest x-ray showed no acute abnormalities. D-dimer was elevated and patient underwent a computed tomography scan of the chest that revealed bilateral PE with complete occlusion of the left pulmonary artery. Patient has been tachycardic had elevated troponins. Cardiology and pulmonary consulted. He was omitted to the ICU. Patient underwent an echocardiogram which reviewed by cardiology showed severe dilated right ventricle and evidence of a right ventricular strain. Patient did require to be placed on Ventimask and did require small doses of Levophed. Patient history been seen by cardiology and pulmonary service. They have a lactic acid level VII.9 which is down to 4.2 after fluids. He will be transferred to [facility] to have the EKO. He will require a facility with higher level of care. Patient is already on IV heparin. Patient denies any nausea vomiting, bowel movement changes urinary symptoms any fevers chills or sweats. I performed an examination of the patient and discussed their management with the physician Winterizer. I have reviewed the Physician Winterizer's notes and agree with the documented findings and plan of care Patient Condition at Discharge: Stable Plan - Discharge Summary Discharge Rx Participant: No New Discharge Prescriptions: No Action Ondansetron Odt [Zofran ODT] 4 mg PO Q8HR PRN #20 tab PRN Reason: Nausea QUEtiapine [SEROquel] 200 mg PO BID Potassium Chloride ER [K-Dur 20] 40 meq PO DAILY Pantoprazole Sodium [Protonix] 40 mg PO DAILY Naltrexone HCl [Revia] 50 mg PO DAILY Menthol [Biofreeze] 1 applic TOPICAL DAILY PRN PRN Reason: Pain Magnesium Chloride [Slow Mag] 64 mg PO DAILY Ibuprofen [Advil] 200 mg PO Q6HR PRN PRN Reason: Pain Gabapentin [Neurontin] 300 mg PO BID Fluticasone/Vilanterol [Breo Ellipta 100-25 Mcg Inhaler] 1 puff INHALATION RT -DAILY busPIRone HCl [Buspar] 10 mg PO DAILY Albuterol Inhaler [Ventolin Hfa Inhaler] 2 puff INHALATION RT-Q6H PRN PRN Reason: Shortness Of Breath Furosemide [Lasix] 40 mg PO DAILY Discharge Medication List Ondansetron Odt [Zofran ODT] 4 mg PO Q8HR PRN #20 tab 10/16/17 [Rx] Albuterol Inhaler [Ventolin Hfa Inhaler] 2 puff INHALATION RT-Q6H PRN 12/01/17 [ History] Fluticasone/Vilanterol [Breo Ellipta 100-25 Mcg Inhaler] 1 puff INHALATION RT- DAILY 12/01/17 [History] Furosemide [Lasix] 40 mg PO DAILY 12/01/17 [History] Gabapentin [Neurontin] 300 mg PO BID 12/01/17 [History] Ibuprofen [Advil] 200 mg PO Q6HR PRN 12/01/17 [History] Magnesium Chloride [Slow Mag] 64 mg PO DAILY 12/01/17 [History] Menthol [Biofreeze] 1 applic TOPICAL DAILY PRN 12/01/17 [History] Naltrexone HCl [Revia] 50 mg PO DAILY 12/01/17 [History] Pantoprazole Sodium [Protonix] 40 mg PO DAILY 12/01/17 [History] Potassium Chloride ER [K-Dur 20] 40 meq PO DAILY 12/01/17 [History] QUEtiapine [SEROquel] 200 mg PO BID 12/01/17 [History] busPIRone HCl [Buspar] 10 mg PO DAILY 12/01/17 [History] Follow up Appointment(s)/Referral(s): Claudette Edward DO [Primary Care Provider] - 1-2 days
[2017-12-02 09:17] VITALS: BP 109/82; PULSE 105; RESP 35
--- NOTE | 2017-12-02 09:25 | P.CNPUL ---
History of Present Illness Consult date: 12/02/17 Requesting physician: Benita Holland Reason for consult: dyspnea, hypoxemia, pulmonary embolism Chief complaint: Dyspnea, lightheadedness, fall, large bilateral pulmonary emboli History of present illness: Mr. Villalpando is a 67-year-old White male patient of Dr. Holland, was brought to the emergency department on 12/02/2017 per EMS for increased dyspnea, lightheadedness, fall at home. Patient was at home yesterday on 12/01/2017, and she was walking to turn his oxygen on, he became very lightheaded, short of breath, and he sustained a fall, hitting his left knee on the dresser. Did not lose consciousness, or hit his head. Patient is chronically short of breath due to his history of severe emphysema/COPD, however he was in respiratory distress this episode. Patient's baseline FEV1 is in the order of 51%. Patient 's medical history is positive for alcoholism, frequent falls, rib fractures secondary to falls, osteoarthritis, history of pneumonias, anemia. Patient has chronic and ongoing nicotine dependence, he used to smoke 2 packs a day for over 57 years, he is currently down to 1 pack a day. His usual inhalers include Spiriva and Symbicort. Patient was hospitalized in September for acute hypoxic respiratory failure related to altered mentation secondary to delirium tremens/alcohol withdrawal. Patient was also treated for acute bilateral aspiration pneumonia, recovered and was sent to the subacute rehab, and subsequently discharged home. He denies any recent surgery, he does state he was ill for a few days at home, with intermittent vomiting, he did have some abdominal wall tenderness on both sides of the abdomen, which is now resolved. He states he has had intermittent vomiting for over a year, but in the last 3 days his oral intake has been decreased. Patient has a history of GERD, diverticular disease. Patient states he is drinking 3-4 beers a day. Patient is a poor historian, his recollection of events is not in chronological order. When the EMS arrived patient was hypoxemic with O2 sat at 78%, patient was quite tachycardic with a heart rate of 131 BPM, in sinus mechanism. he was complaining about generalized weakness, and was complaining of not being able to take deep breaths related to pain. He denies any history of malignancy. Denies any fever or chills. Chest x-ray showed blunting of the left costophrenic angle, and there were suspected old rib fractures at the eighth and ninth rib on the left. Pulmonary perfusion scan was indeterminate probability for pulmonary embolism. Patient had leukocytosis with a PVC of 16.6 , hemoglobin of 15.9, INR of 1.5, d-dimer was elevated at 6.44. Sodium is 135, potassium is 3.1, chloride is 91, BUN is 6, creatinine is 1. Plasma lactic acid was elevated at 5.1, and subsequently did increased to 7.9, troponins were positive at 0.376, AST was 20, ALT was 17, alkaline phosphatase was 255. CT angios were completed, and showed large massive bilateral pulmonary emboli, complete occlusion of the left pulmonary artery, and evidence of right heart strain. This was on the background of diffuse bullous pulmonary emphysema. Patient was started on high intensity heparin infusion, he did become hypotensive, requiring fluid boluses, and the patient received a total of 4 L of 0.9 normal saline, and vasopressor support form of norepinephrine which is currently infusing at 4 mics per minutes. Heparin drip is at 15 units per kilo per hour, and maintenance IV fluid is 0.9 normal saline at a rate of 125 ML per hour. Current the patient is in the intensive care unit, he is awake, alert, denies any chest pain, denies any acute distress, denies any hemoptysis, denies any cough or sputum production, no fever or chills. No vomiting, no nausea, no diarrhea. No lightheadedness. Planning of some left leg tenderness, and he states his legs have been more swollen lately, and the patient is on Lasix. He states he had a ultrasound of the left leg a week ago, and it was negative for a DVT. Patient is in sinus rhythm on the monitor with a rate of 99-101 BPM, his blood pressure is 110/85 on mics of levothyroid, FiO2 is at 5 L per nasal cannula and his pulse ox is 93%, lung sounds are diminished, no rhonchi or wheezes noted, abdomen is distended but soft. Transfer arrangements were initiated for transfer to [facility] for the EKO procedure. Review of Systems All systems: negative Constitutional: Reports weakness, Denies chills, Denies fever Eyes: denies blurred vision, denies pain Ears, nose, mouth and throat: Denies headache, Denies sore throat Cardiovascular: Reports decreased exercise tolerance, Reports dyspnea on exertion, Reports edema, Reports leg edema, Denies chest pain, Denies shortness of breath Respiratory: Reports dyspnea, Reports home oxygen, Reports pain on inspiration, Reports respiratory infections, Denies cough Gastrointestinal: Reports bloating, Reports dyspepsia, Reports indigestion, Denies abdominal pain, Denies diarrhea, Denies nausea, Denies vomiting Musculoskeletal: Denies myalgias Integumentary: Denies pruritus, Denies rash Neurological: Reports gait dysfunction, Reports lack of coordination, Denies numbness, Denies weakness Psychiatric: Denies anxiety, Denies depression Endocrine: Denies fatigue, Denies weight change Past Medical History Past Medical History: GERD/Reflux, Osteoarthritis (OA), Seizure Disorder, Syncope Additional Past Medical History / Comment(s): 1 SEIZURE APPROX 2010, alcoholism , alcohol withdrawal syndrome, delirium tremors, past acute psychosis, DJD, diverticular disease, SBO 2ndary to incarcerated R inguinal hernia.hands tremors. History of Any Multi-Drug Resistant Organisms: None Reported Past Surgical History: Appendectomy, Heart Catheterization, Hernia Repair, Joint Replacement, Orthopedic Surgery, Tonsillectomy Additional Past Surgical History / Comment(s): Colonoscopies and polypectomies, 10/21/15 normal cardiac cath, multiple inguinal hernia surg., bilateral knee arthroscopies and pt states bilateral knee arthroplasties. Past Anesthesia/Blood Transfusion Reactions: No Reported Reaction Smoking Status: Current every day smoker - Past Family History Father Family Medical History: Coronary Artery Disease (CAD), Myocardial Infarction (NC ) Additional Family Medical History / Comment(s): Father of a NC at the age of 73 yrs. Mother Family Medical History: Cancer Additional Family Medical History / Comment(s): Mother had breast cancer. She is 81 yrs old and now healthy. Medications and Allergies Home Medications Medication Instructions Recorded Confirmed Type Ondansetron Odt [Zofran ODT] 4 mg PO Q8HR PRN #20 tab 10/16/17 12/01/17 Rx Albuterol Inhaler [Ventolin Hfa 2 puff INHALATION RT-Q6H PRN 12/01/17 12/01/17 History Inhaler] Fluticasone/Vilanterol [Breo 1 puff INHALATION RT-DAILY 12/01/17 12/01/17 History Ellipta 100-25 Mcg Inhaler] Furosemide [Lasix] 40 mg PO DAILY 12/01/17 12/01/17 History Gabapentin [Neurontin] 300 mg PO BID 12/01/17 12/01/17 History Ibuprofen [Advil] 200 mg PO Q6HR PRN 12/01/17 12/01/17 History Magnesium Chloride [Slow Mag] 64 mg PO DAILY 12/01/17 12/01/17 History Menthol [Biofreeze] 1 applic TOPICAL DAILY PRN 12/01/17 12/01/17 History Naltrexone HCl [Revia] 50 mg PO DAILY 12/01/17 12/01/17 History Pantoprazole Sodium [Protonix] 40 mg PO DAILY 12/01/17 12/01/17 History Potassium Chloride ER [K-Dur 20] 40 meq PO DAILY 12/01/17 12/01/17 History QUEtiapine [SEROquel] 200 mg PO BID 12/01/17 12/01/17 History busPIRone HCl [Buspar] 10 mg PO DAILY 12/01/17 12/01/17 History Allergies Allergy/AdvReac Type Severity Reaction Status Date / Time tramadol AdvReac Mild Itching Verified 12/01/17 08:58 Physical Exam Vitals: Vital Signs Temp Pulse Resp BP Pulse Ox 12/02/17 07:30 101 H 21 110/85 93 L 12/02/17 07:28 99 12/02/17 07:08 90 100 12/02/17 07:00 92 14 99/75 99 12/02/17 06:30 94 14 99/76 99 12/02/17 06:00 97 16 111/79 99 12/02/17 05:30 97 15 81/68 99 12/02/17 05:00 99 16 85/69 98 12/02/17 04:30 101 H 15 84/66 95 12/02/17 04:00 97.5 F L 104 H 16 82/65 96 12/02/17 03:30 169 H 15 77/63 96 12/02/17 03:00 112 H 16 90/69 100 12/02/17 02:30 72 28 H 87/61 88 L 12/02/17 02:00 97.5 F L 108 H 24 99 12/02/17 01:30 106 H 16 78/65 96 12/02/17 01:00 110 H 18 76/63 97 12/02/17 00:30 110 H 21 85/67 96 12/02/17 00:00 97.8 F 126 H 16 99/71 88 L 12/01/17 23:51 105 H 12/01/17 23:43 115 H 12/01/17 23:30 117 H 28 H 82/61 94 L 12/01/17 23:00 118 H 23 90/64 96 12/01/17 22:30 121 H 19 97/74 97 12/01/17 22:00 97.4 F L 123 H 24 86/67 95 12/01/17 21:41 122/60 12/01/17 18:41 120 H 16 113/58 93 L 12/01/17 17:00 120 H 16 135/88 93 L 12/01/17 12:25 126 H 16 124/76 93 L 12/01/17 09:45 120 H 16 105/66 94 L 12/01/17 09:27 130 H 12/01/17 09:00 22 12/01/17 08:52 96.8 F L 132 H 22 100/67 95 Intake and Output 12/01/17 12/02/17 12/02/17 22:59 06:59 14:59 Intake Total 310 3050.136 185 Output Total 300 Balance 310 2750.136 185 Intake: IV 250 2787.5 125 Piperacillin-Tazobactam 3 37.5 .375 gm In Dextrose/Water 1 50ml.bag @ 12.5 mls/hr IVPB Q8HR [facility] Rx#: [id number] Sodium Chloride 0.9% 1, 250 2750 125 000 ml @ 125 mls/hr IV . Q8H [facility] Rx#:[id number] Intake, IV Titration 202.636 60 Amount Heparin Sod,Pork in 0.45% 185.886 NaCl 25,000 unit In 0.45 % NaCl 1 500ml.bag @ 18 UNITS/KG/HR 26.94 mls/hr IV .[id number] [facility] Rx#: [id number] Norepinephrin 4 mg-0.9% 16.75 60 Ns Pmx 4 mg In 250 ml @ Titrate IV .Q0M [facility] Rx#: [id number] Oral 60 60 Output: Urine 300 Other: Voiding Method Diaper Weight 82.3 kg GENERAL EXAM: Alert, pleasant 57-year-old white male, comfortable in no apparent distress. Currently on 5 L per nasal cannula with O2 sat at 93%. HEAD: Normocephalic/atraumatic. EYES: Normal reaction of pupils, equal size. Conjunctiva pink, sclera white. NOSE: Clear with pink turbinates. THROAT: No erythema or exudates. NECK: No masses, no JVD, no thyroid enlargement, no adenopathy. CHEST: No chest wall deformity. Symmetrical expansion. LUNGS: Equal air entry with no crackles, wheeze, rhonchi or dullness. Overall diminished breath sounds bilaterally CVS: Regular rate and rhythm, normal S1 and S2, no gallops, no murmurs, no rubs ABDOMEN: Soft, nontender, slightly distended. No hepatosplenomegaly, normal bowel sounds, no guarding or rigidity. EXTREMITIES: No clubbing, no edema, no cyanosis, 2+ pulses and upper and lower extremities. MUSCULOSKELETAL: Muscle strength and tone normal. There is a healed left knee scar, left leg is slightly swollen, and tender to palpation, and there is evidence of chronic venous stasis discoloration on bilateral lower extremities, no swelling in the right leg. Bilateral knees have limited flexion, particularly in the left knee. SPINE: No scoliosis or deformity SKIN: No rashes CENTRAL NERVOUS SYSTEM: Alert and oriented -2. No focal deficits, tone is normal in all 4 extremities. PSYCHIATRIC: Alert and oriented -2. Patient is a poor historian, and his recollection of events is in poor chronological order Results - Laboratory Findings CBC and BMP: 12/02/17 02:25 12/02/17 02:25 ABG ABG pH 7.42 (7.35-7.45) 12/02/17 02:17 ABG pCO2 36 mmHg (35-45) 12/02/17 02:17 ABG pO2 74 mmHg (83-108) L 12/02/17 02:17 ABG O2 Saturation 94.9 % (94-97) 12/02/17 02:17 PT/INR, D-dimer PT 11.9 sec (9.0-12.0) 12/01/17 19:42 INR 1.3 (<1.2) H 12/01/17 19:42 D-Dimer 6.44 mg/L FEU (<0.60) H 12/01/17 13:53 Abnormal lab findings: Abnormal Labs 12/01/17 12/01/17 12/01/17 13:53 13:53 13:53 WBC 16.6 H RBC MCV 101.7 H RDW 17.2 H Plt Count Neutrophils # 15.1 H Lymphocytes # 0.7 L PT 13.9 H INR 1.5 H APTT D-Dimer 6.44 H ABG pO2 VBG pH Sodium 135 L Potassium 3.1 L Chloride 91 L Carbon Dioxide BUN 6 L Glucose 169 H POC Glucose (mg/dL) Plasma Lactic Acid Chet Calcium 7.4 L Magnesium ALT 17 L Alkaline Phosphatase 255 H CK-MB (CK-2) Troponin I Total Protein 6.2 L Albumin 3.1 L Urine Protein Urine WBC Hyaline Casts Urine Mucus 12/01/17 12/01/17 12/01/17 13:53 13:53 17:00 WBC RBC MCV RDW Plt Count Neutrophils # Lymphocytes # PT INR APTT D-Dimer ABG pO2 VBG pH 7.43 H Sodium Potassium Chloride Carbon Dioxide BUN Glucose POC Glucose (mg/dL) Plasma Lactic Acid Chet 5.1 H* Calcium Magnesium ALT Alkaline Phosphatase CK-MB (CK-2) Troponin I 0.376 H* Total Protein Albumin Urine Protein Urine WBC Hyaline Casts Urine Mucus 12/01/17 12/01/17 12/01/17 17:00 18:30 19:42 WBC RBC MCV RDW Plt Count Neutrophils # Lymphocytes # PT INR APTT D-Dimer ABG pO2 VBG pH Sodium Potassium Chloride Carbon Dioxide BUN Glucose POC Glucose (mg/dL) Plasma Lactic Acid Chet 6.1 H* Calcium Magnesium ALT Alkaline Phosphatase CK-MB (CK-2) 2.5 H* Troponin I 0.308 H* Total Protein Albumin Urine Protein 2+ H Urine WBC 7 H Hyaline Casts 169 H Urine Mucus Few H 12/01/17 12/01/17 12/01/17 19:42 19:42 21:55 WBC 14.0 H RBC MCV 103.9 H RDW 16.7 H Plt Count Neutrophils # 13.3 H Lymphocytes # 0.4 L PT INR 1.3 H APTT D-Dimer ABG pO2 VBG pH Sodium Potassium Chloride Carbon Dioxide BUN Glucose POC Glucose (mg/dL) 291 H Plasma Lactic Acid Chet Calcium Magnesium ALT Alkaline Phosphatase CK-MB (CK-2) Troponin I Total Protein Albumin Urine Protein Urine WBC Hyaline Casts Urine Mucus 12/01/17 12/02/17 12/02/17 22:35 02:17 02:25 WBC RBC MCV RDW Plt Count Neutrophils # Lymphocytes # PT INR APTT D-Dimer ABG pO2 74 L VBG pH Sodium Potassium Chloride Carbon Dioxide BUN Glucose POC Glucose (mg/dL) Plasma Lactic Acid Chet 7.9 H* Calcium Magnesium ALT Alkaline Phosphatase CK-MB (CK-2) 2.8 H* Troponin I 0.218 H* Total Protein Albumin Urine Protein Urine WBC Hyaline Casts Urine Mucus 12/02/17 12/02/17 12/02/17 02:25 02:25 02:25 WBC 15.8 H RBC 4.25 L MCV 105.3 H RDW 16.5 H Plt Count 101 L Neutrophils # 14.0 H Lymphocytes # 0.9 L PT INR APTT >200.0 H* D-Dimer ABG pO2 VBG pH Sodium 132 L Potassium 3.4 L Chloride 96 L Carbon Dioxide 19 L BUN Glucose 198 H POC Glucose (mg/dL) Plasma Lactic Acid Chet Calcium 6.5 L* Magnesium 1.2 L ALT 14 L Alkaline Phosphatase 161 H CK-MB (CK-2) Troponin I Total Protein 5.2 L Albumin 2.3 L Urine Protein Urine WBC Hyaline Casts Urine Mucus 12/02/17 02:25 WBC RBC MCV RDW Plt Count Neutrophils # Lymphocytes # PT INR APTT D-Dimer ABG pO2 VBG pH Sodium Potassium Chloride Carbon Dioxide BUN Glucose POC Glucose (mg/dL) Plasma Lactic Acid Chet 4.2 H* Calcium Magnesium ALT Alkaline Phosphatase CK-MB (CK-2) Troponin I Total Protein Albumin Urine Protein Urine WBC Hyaline Casts Urine Mucus - Diagnostic Findings Chest x-ray: report reviewed, image reviewed CT scan - chest: report reviewed, image reviewed Additional studies: EKG reviewed Assessment and Plan Plan: Assessment: #1. Acute large bilateral pulmonary embolisms, with complete occlusion of the left pulmonary artery, and evidence of right ventricular strain. Patient presented with acute shortness of breath, acute on chronic hypoxemic respiratory failure, lightheadedness, fall at home, tachycardia #2. Acute on chronic hypoxemic respiratory failure secondary to above #3. Evidence of right ventricular heart strain, due to the acute PEs #4. Positive troponins, hypertension, lactic acidosis due to the above #5. Mild leukocytosis, possibly reactive #6. Underlying history of COPD, and his baseline FEV1 is around 51% of predicted, patient has chronic hypoxemic respiratory failure #7. Recent hospitalization for aspiration pneumonia, acute delirium tremens/ alcohol withdrawal, requiring intubation and mechanical ventilation, and the patient had recovered, and was discharged to subacute rehab, and subsequently discharged home #8. Chronic and ongoing nicotine addiction, patient carries over 100 pack year smoking history, 2 packs a day for over 57 years, currently down to 1 pack a day #9. Alcohol abuse, with history of delirium tremens, withdrawal, recurrent falls, and prior history of fractured ribs #10. GERD, diverticulitis #11. History of seizure disorder #12. Hypokalemia, hypomagnesemia, probably related to underlying EtOH abuse Plan: Patient initiated on high intensity heparin infusion,has been fluid resuscitated , and is currently on norepinephrine drip for hemodynamic support. Currently in no acute distress, less tachycardic, and less dyspneic, mentation is at his baseline. Case was discussed with vascular surgery from [facility] , and transferred has been arranged for transfer there for the EKO procedure. I performed a history & physical examination of the patient and discussed their management with my nurse practitioner, Yennifer Irby. I reviewed the nurse practitioner's note and agree with the documented findings and plan of care. Lung sounds are diminished. The findings and the impression was discussed with the patient. I attest to the documentation by the nurse practitioner. Critical care time is 30 minutes Time with Patient: Greater than 30
[2017-12-02] MEDS: POTASSIUM CHLORIDE ER 20 MEQ TAB.ER PO SCH (09:27)
--- NOTE | 2017-12-02 09:31 | XR ---
EXAMINATION TYPE: XR chest 1V portable DATE OF EXAM: 12/02/2017 COMPARISON: Prior chest x-ray and chest CT 12/01/2017 HISTORY: Pulmonary embolism, abnormal chest x-ray TECHNIQUE: Single frontal view of the chest is obtained. FINDINGS: There is no focal air space opacity, pleural effusion, or pneumothorax seen. The cardiac silhouette size is within normal limits. Emphysematous changes are present extremities underlying int erstitial lung disease and probable chronic pleural reaction, prominent epicardial fat pad. The osse ous structures are intact. IMPRESSION: Similar findings.
--- NOTE | 2017-12-02 11:13 | ECHOF ---
Referral Reason:right heart strain MEASUREMENTS -------- HEIGHT: 172.7 cm WEIGHT: 82.1 kg BP: 99/76 RVIDd: 4.6 cm (< 3.3) IVSd: 1.0 cm (0.6 - 1.1) LVIDd: 4.0 cm (3.9 - 5.3) LVPWd: 0.9 cm (0.6 - 1.1) IVSs: 1.2 cm LVIDs: 3.0 cm LVPWs: 1.1 cm Ao Diam: 3.4 cm (2.0 - 3.7) AV Cusp: 1.8 cm (1.5 - 2.6) LA Diam: 4.4 cm (2.7 - 3.8) MV EXCURSION: 14.230 mm (> 18.000) MV EF SLOPE: 70 mm/s (70 - 150) EPSS: 1.0 cm MV E Ej: 0.56 m/s MV DecT: 229 ms MV A Ej: 0.73 m/s MV E/A Ratio: 0.78 RAP: 15.00 mmHg RVSP: 55.62 mmHg FINDINGS -------- Sinus rhythm. This was a technically good study. LV size, wall thickness and systolic function are normal, with an EF greater than 55%. The left viet tricular size is normal. The right ventricle is severely enlarged. The right ventricular septal wall is flattened in diastol e and systole which is consistent with right ventricular volume and pressure overload. The left atrial size is normal. The right atrial size is normal. The aortic valve is trileaflet, and appears structurally normal. No aortic stenosis or regurgitation. Mild mitral regurgitation is present. Mild tricuspid regurgitation present. There is moderate pulmonary hypertension. The right ventric ular systolic pressure, as measured by Doppler, is 55.62mmHg. Trace/mild (physiologic) pulmonic regurgitation. The aortic root size is normal. Echo free space represents a pericardial fat pad. CONCLUSIONS -------- 1. LV size, wall thickness and systolic function are normal, with an EF greater than 55%. 2. The left ventricular size is normal. 3. The right ventricle is severely enlarged. 4. The right ventricular septal wall is flattened in diastole and systole which is consistent with r ight ventricular volume and pressure overload. 5. The left atrial size is normal. 6. The right atrial size is normal. 7. The aortic valve is trileaflet, and appears structurally normal. No aortic stenosis or regurgitati on. 8. Mild mitral regurgitation is present. 9. Mild tricuspid regurgitation present. 10. There is moderate pulmonary hypertension. 11. The right ventricular systolic pressure, as measured by Doppler, is 55.62mmHg. 12. Trace/mild (physiologic) pulmonic regurgitation. 13. The aortic root size is normal. 14. Echo free space represents a pericardial fat pad. PLANS EXAMINER: Shayla Velásquez RDCS
== END 2017-12-02 09:37 | disposition short-term general hospital (02) | DRG 175 ==
LOC: EC 08:50 → 6SEL 15:35 → 6ICU 20:25
PROVIDERS: ADMIT Internal Medicine; ATTEND Internal Medicine
DX: I26.99 Other pulmonary embolism without acute cor pulmonale (principal); J96.21 Acute and chronic respiratory failure with hypoxia; E87.2 Acidosis; I11.9 Hypertensive heart disease without heart failure; G40.909 Epilepsy, unspecified, not intractable, without status epilepticus; F17.210 Nicotine dependence, cigarettes, uncomplicated; E83.42 Hypomagnesemia; E87.6 Hypokalemia; J43.9 Emphysema, unspecified; K21.9 Gastro-esophageal reflux disease without esophagitis; F32.9 Major depressive disorder, single episode, unspecified; F41.9 Anxiety disorder, unspecified; K57.90 Diverticulosis of intestine, part unspecified, without perforation or abscess without bleeding; M19.90 Unspecified osteoarthritis, unspecified site; I95.9 Hypotension, unspecified; R77.9 Abnormality of plasma protein, unspecified; F10.20 Alcohol dependence, uncomplicated; Z96.653 Presence of artificial knee joint, bilateral; Z99.81 Dependence on supplemental oxygen; Z79.899 Other long term (current) drug therapy; Z90.49 Acquired absence of other specified parts of digestive tract; Z87.01 Personal history of pneumonia (recurrent); Z86.010 Personal history of colon polyps; Z80.3 Family history of malignant neoplasm of breast; Z82.49 Family history of ischemic heart disease and other diseases of the circulatory system; W19.XXXA Unspecified fall, initial encounter; Y92.009 Unspecified place in unspecified non-institutional (private) residence as the place of occurrence of the external cause
CPT/HCPCS: 36415; 36600; 71045; 71046; 71275; 78582; 80053; 81001; 82550; 82553; 82803; 82805; 83605; 83735; 84100; 84484; 85025; 85379; 85610; 85730; 87040; 93005; 93306; 94640; 96361; 96365; 96366; 96368; 96372; 96375; 96376; 99285

== ENCOUNTER 2018-01-28 11:59 | Inpatient (IN) | payer MEDICARE ==
[2018-01-28] MEDS ORDERED: ONDANSETRON ODT 4 MG TAB PO STA (12:48)
[2018-01-28] MEDS ORDERED: SODIUM CHLORIDE 0.9% 1,000 ML IV ONE (12:49)
[2018-01-28] MEDS ORDERED: METOCLOPRAMIDE 5 MG/ML 2 ML VIAL IVP STA (13:43)
--- NOTE | 2018-01-28 13:56 | XR ---
EXAMINATION TYPE: XR chest 2V DATE OF EXAM: 01/28/2018 COMPARISON: Chest x-ray December [address] December 01, 2017. HISTORY: Chest pain per order. TECHNIQUE: Frontal and lateral views of the chest are obtained. FINDINGS: There is chronic emphysematous change with chronic left basilar opacity or scarring latera lly. No new focal airspace opacity, pleural effusion, or pneumothorax is seen. The cardiac silhouett e size is within normal limits. There is right AC joint separation presumed chronic with well-defined ossific fragmentation noted. IMPRESSION: Chronic changes without acute pulmonary process.
--- NOTE | 2018-01-28 13:59 | XR ---
EXAMINATION TYPE: XR KUB DATE OF EXAM: 01/28/2018 1:38 PM CLINICAL HISTORY: Abdominal pain per order. Vomiting and diarrhea. TECHNIQUE: Two Upright KUB images of the abdomen are obtained. COMPARISON: Abdominal x-ray October 18, 2017. FINDINGS: There is some paucity of bowel gas. Gas is seen in nondistended stomach. Scattered gas is s een in nondistended small and large bowel loops. No pneumoperitoneum is present. Surgical coils right pelvis are likely from prior inguinal hernia repair surgery. Mild to moderate multilevel anterior sp urring in the lumbar spine is present with slight levoconvex scoliotic curvature redemonstrated IMPRESSION: Overall nonspecific but strongly favor nonobstructive bowel gas pattern.
[2018-01-28] MEDS ORDERED: HYDROcodone/APAP 5-325MG 1 EACH TAB PO STA (14:18)
[2018-01-28 14:20] LABS: ALT 16 U/L (21-72); AST 14 U/L (17-59); Albumin 2.6 g/dL (3.5-5.0); Alkaline Phosphatase 263 U/L (38-126); Blood Urea Nitrogen 5 mg/dL (9-20); Calcium 7.9 mg/dL (8.4-10.2); Chloride 84 mmol/L (98-107); Glucose 115 mg/dL (74-99); Lipase 42 U/L (23-300); Magnesium 1.7 mg/dL (1.6-2.3); Sodium 135 mmol/L (137-145); Total Bilirubin 0.7 mg/dL (0.2-1.3); Total Protein 5.9 g/dL (6.3-8.2)
[2018-01-28 14:24] LABS: Anisocytosis Slight; Basophils # (A) 0.1 k/uL (0-0.2); Basophils % (A) 0 %; Eosinophils # (A) 0.1 k/uL (0-0.7); Eosinophils % (A) 1 %; HCT 41.2 % (39.0-53.0); HGB 12.7 gm/dL (13.0-17.5); Lymphocytes # (A) 1.6 k/uL (1.0-4.8); Lymphocytes % (A) 11 %; MCH 32.1 pg (25.0-35.0); MCHC 30.9 g/dL (31.0-37.0); MCV 103.9 fL (80.0-100.0); Macrocytosis Moderate; Mean Platelet Volume 6.3; Monocytes # (A) 0.9 k/uL (0-1.0); Monocytes % (A) 6 %; Neutrophils # (A) 11.3 k/uL (1.3-7.7); Neutrophils % (A) 79 %; Platelet Count 527 k/uL (150-450); RBC 3.97 m/uL (4.30-5.90); RDW 18.5 % (11.5-15.5); WBC 14.2 k/uL (3.8-10.6)
[2018-01-28 14:27] LABS: Anion Gap 9 mmol/L
[2018-01-28 14:32] LABS: Potassium 2.7 mmol/L (3.5-5.1)
[2018-01-28 14:33] LABS: Carbon Dioxide 42 mmol/L (22-30)
[2018-01-28] MEDS ORDERED: NALOXONE 0.4 MG/ML 1 ML VIAL IV PRN (16:12)
[2018-01-28] MEDS ORDERED: FAMOTIDINE 20 MG TAB PO PRN (16:12)
[2018-01-28] MEDS ORDERED: ACETAMINOPHEN TAB 325 MG TAB PO PRN (16:12)
--- NOTE | 2018-01-28 16:12 | ED ---
General Adult HPI <Andrew Retana - Last Filed: 01/28/18 16:33> - General Source: patient Mode of arrival: wheelchair Limitations: no limitations <EduardvolodymyrMamie Jessica - Last Filed: 01/28/18 20:53> - General Chief complaint: Nausea/Vomiting/Diarrhea Stated complaint: Vomiting Time Seen by Provider: 01/28/18 12:29 - History of Present Illness Initial comments: This a 58-year-old male with past medical history of chronic alcohol abuse, osteoarthritis, hypokalemia, hypochloremia, COPD, pulmonary embolism in November of 2017 and vomiting states his entire life, this has been a chronic issue for him and he has been seen here multiple times in the past. With past hospitalizations for it. Patient states he has had about 20 episodes of vomiting since midnight. And he has had a few episodes of diarrhea. He denies hematemesis, melena or hematochezia. Patient denies any abdominal pain, stating that he has these isolated events of only nausea or vomiting. And states that this is identical to previous episodes. Pt did admit to left knee pain, he states he isn't following this with Dr. Laird and Dr. Phipps. He states that the knee is actually feeling better and has for the past 8 weeks. However he is still experiencing left knee pain, he is able to fully range at the left knee, denies any erythema, warmth. Patient denies any chest pain, shorts breath, dizziness, headache, syncope, dyspnea with exertion, lower extremity edema, pleuritic chest pain, visual changes, headache, numbness, tingling, paresthesia, seizure-like activity, tremor, hallucinations, fever, chills remainder of ROS negative. Upon presentation to ER today patient's heart rate elevated 107. Remainder of vital signs stable. (Mamie Omalley) - Related Data Home Medications Medication Instructions Recorded Confirmed Menthol [Biofreeze] 1 applic TOPICAL DAILY PRN 12/01/17 01/28/18 Potassium Chloride ER [K-Dur 20] 20 meq PO BID 12/01/17 01/28/18 busPIRone HCl [Buspar] 10 mg PO BID PRN 12/01/17 01/28/18 Acetaminophen Tab [Tylenol Tab] 650 mg PO Q6H PRN 01/28/18 01/28/18 Albuterol Nebulized [Ventolin 2.5 mg INHALATION RT-Q4H 01/28/18 01/28/18 Nebulized] Amino Acids/Protein Hydrolys 30 ml PO DAILY 01/28/18 01/28/18 [Pro-Stat Supplement] Aspercreme W/ Lidocain Cream 4 1 applic TOPICAL Q8H PRN 01/28/18 01/28/18 Joslyn-Lanta Susp 200-200-20/5ml 30 ml PO Q6H PRN 01/28/18 01/28/18 Hydrocodone/Acetaminophen [Adams 1 tab PO Q8H PRN 01/28/18 01/28/18 5-325] Kaopectate Suspensi 202mg/15ml 404 mg PO Q4H PRN 01/28/18 01/28/18 Magnesium 400 mg PO BID 01/28/18 01/28/18 Melatonin 3 mg PO HS PRN 01/28/18 01/28/18 Omeprazole 20 mg PO DAILY 01/28/18 01/28/18 Promethazine [Phenergan] 12.5 mg PO Q8HR PRN 01/28/18 01/28/18 Rivaroxaban [Xarelto] 20 mg PO HS 01/28/18 01/28/18 Thiamine HCl [Vitamin B-1] 100 mg PO HS 01/28/18 01/28/18 Allergies Allergy/AdvReac Type Severity Reaction Status Date / Time tramadol AdvReac Mild Itching Verified 01/28/18 16:08 Review of Systems ROS Other: All systems not noted in ROS Statement are negative. <Andrew Retana - Last Filed: 01/28/18 16:33> ROS Other: All systems not noted in ROS Statement are negative. Constitutional: Denies: fever, chills, night sweats Eyes: Denies: vision change ENT: Denies: hearing loss Respiratory: Denies: cough, dyspnea, wheezes, hemoptysis, stridor Cardiovascular: Denies: chest pain, palpitations, dyspnea on exertion, edema Endocrine: Denies: fatigue Gastrointestinal: Reports: nausea, vomiting, diarrhea. Denies: abdominal pain, constipation, hematemesis, melena, hematochezia Genitourinary: Denies: urgency, dysuria, frequency, hematuria, testicular pain Musculoskeletal: Reports: joint swelling, arthralgia. Denies: back pain Skin: Denies: rash, lesions, change in color Neurological: Denies: headache, weakness, numbness, confusion, abnormal gait, vertigo <Mamie Omalley - Last Filed: 01/28/18 20:53> ROS Statement: Those systems with pertinent positive or pertinent negative responses have been documented in the HPI. Past Medical History Past Medical History: GERD/Reflux, Osteoarthritis (OA), Seizure Disorder, Syncope Additional Past Medical History / Comment(s): 1 SEIZURE APPROX 2010, alcoholism , alcohol withdrawal syndrome, delirium tremors, past acute psychosis, DJD, diverticular disease, SBO 2ndary to incarcerated R inguinal hernia.hands tremors. History of Any Multi-Drug Resistant Organisms: None Reported Past Surgical History: Appendectomy, Heart Catheterization, Hernia Repair, Joint Replacement, Orthopedic Surgery, Tonsillectomy Additional Past Surgical History / Comment(s): Colonoscopies and polypectomies, 10/21/15 normal cardiac cath, multiple inguinal hernia surg., bilateral knee arthroscopies and pt states bilateral knee arthroplasties. Past Anesthesia/Blood Transfusion Reactions: No Reported Reaction Past Psychological History: Anxiety, Depression Smoking Status: Current every day smoker Past Alcohol Use History: Daily Past Drug Use History: None Reported - Past Family History Father Family Medical History: Coronary Artery Disease (CAD), Myocardial Infarction (NH ) Additional Family Medical History / Comment(s): Father of a NH at the age of 73 yrs. Mother Family Medical History: Cancer Additional Family Medical History / Comment(s): Mother had breast cancer. She is 81 yrs old and now healthy. <Shantel Omalleyjavier Lopez - Last Filed: 01/28/18 20:53> General Exam <Andrew Retana - Last Filed: 01/28/18 16:33> Limitations: no limitations <Mamie Omalley Jessica - Last Filed: 01/28/18 20:53> - General Exam Comments Initial Comments: General: The patient is awake and alert, in no distress, and does not appear acutely ill. Eye: Pupils are equal, round and reactive to light, extra-ocular movements are intact. No nystagmus. There is normal conjunctiva bilaterally. No signs of icterus. Ears, nose, mouth and throat: There are moist mucous membranes and no oral lesions. Neck: The neck is supple, there is no tenderness or JVD. Cardiovascular: There is a regular rate and rhythm. No murmur, rub or gallop is appreciated. Respiratory: Lungs are clear to auscultation, respirations are non-labored, breath sounds are equal. No wheezes, stridor, rales, or rhonchi. Gastrointestinal: Soft, non-distended, non-tender abdomen without masses or organomegaly noted. No tenderness to deep palpation. There is no rebound or guarding present. No CVA tenderness. Bowel sounds are unremarkable. Musculoskeletal: Decreased ROM of the left knee, tender to palpation and significant left knee effusion no erythema or warmth. Strength 5/5. Sensation intact. DP and radial pulses equal bilaterally 2+. Intentional tremor noted on examination. Neurological: A&O x 3. CN II-XII intact, There are no obvious motor or sensory deficits. Coordination appears grossly intact. Speech is normal. Skin: Skin is warm and dry and no rashes or lesions are noted. Psychiatric: Cooperative, appropriate mood & affect, normal judgment. (Mamie Omalley) Vital Signs 01/28/18 01/28/18 12:06 14:15 Temperature 98.4 F Pulse Rate 107 H 95 Respiratory 20 16 Rate Blood Pressure 101/73 103/71 O2 Sat by Pulse 97 99 Oximetry Medical Decision Making - Lab Data Result diagrams: 01/28/18 13:50 01/28/18 13:50 <Andrew Retana - Last Filed: 01/28/18 16:33> - Lab Data Result diagrams: 01/28/18 13:50 01/28/18 13:50 <Mamie Omalley - Last Filed: 01/28/18 20:53> - Medical Decision Making Patient reevaluated by myself, Dr. Retana. Patient resting comfortably in bed and does feel better with medication. Abdomen soft and nontender. Patient is updated on results and plan. Case was discussed in detail with Dr. Holland, who will admit for Dr. Gonzalez. He would also like ultrasound done. Labs were rechecked in the morning. Patient provided with potassium. (Andrew Retana) CBC, CMP, lipase EKG, CXR obtained revealing elevated Alk Phos of 263 elevated from labs from 09/2017. Pt does have hx chronic alcoholism. CO2 elevated at 41 , no anion gap and potassium of 2.7. Pt was given 40mE of oral KCl and 20mE IVPB. In addition pt had elevated WBC at 14. Pt placed on 2L O2 given CO2 findings. Pt was given reglan for nausea, and did not have any additional episodes of emesis during his stay. In addition pt was given 1,000mL bolus os 0.9% NS. All laboratory findings were compared with previous visits, it appears pt has chronically low Cl and potassium and is supposed to take 40mE BID of KDur daily. pt states that today he did not take his medication. EKG revealed no acute findings, and similar in comparison with last EKG in EMR, which also revealed prolonged QTc. CXR WNL, no acute cardiopulmonary process. Given electrolyte abnormalities, after discussing case with Dr. Retana we feel pt should be admitted for further evaluation and mgmt. accepted admission. He requested U/S for elevated Alk Phos which revealed no gallstones or biliary obstruction. Pt was transferred to the floor in stable condition. (Mamie Omalley) - Lab Data Lab Results 01/28/18 01/28/18 01/28/18 Range/Units 13:50 13:50 13:50 WBC 14.2 H (3.8-10.6) k/uL RBC 3.97 L (4.30-5.90) m/uL Hgb 12.7 L (13.0-17.5) gm/dL Hct 41.2 (39.0-53.0) % MCV 103.9 H (80.0-100.0) fL MCH 32.1 (25.0-35.0) pg MCHC 30.9 L (31.0-37.0) g/dL RDW 18.5 H (11.5-15.5) % Plt Count 527 H (150-450) k/uL Neutrophils % 79 % Lymphocytes % 11 % Monocytes % 6 % Eosinophils % 1 % Basophils % 0 % Neutrophils # 11.3 H (1.3-7.7) k/uL Lymphocytes # 1.6 (1.0-4.8) k/uL Monocytes # 0.9 (0-1.0) k/uL Eosinophils # 0.1 (0-0.7) k/uL Basophils # 0.1 (0-0.2) k/uL Anisocytosis Slight Macrocytosis Moderate Sodium 135 L (137-145) mmol/L Potassium 2.7 L* (3.5-5.1) mmol/L Chloride 84 L (98-107) mmol/L Carbon Dioxide 42 H* (22-30) mmol/L Anion Gap 9 mmol/L BUN 5 L (9-20) mg/dL Creatinine 0.66 (0.66-1.25) mg/dL Est GFR (CKD-EPI)AfAm >90 (>60 ml/min/1.73 sqM) Est GFR (CKD-EPI)NonAf >90 (>60 ml/min/1.73 sqM) Glucose 115 H (74-99) mg/dL Calcium 7.9 L (8.4-10.2) mg/dL Magnesium 1.7 (1.6-2.3) mg/dL Total Bilirubin 0.7 (0.2-1.3) mg/dL AST 14 L (17-59) U/L ALT 16 L (21-72) U/L Alkaline Phosphatase 263 H (38-126) U/L Total Protein 5.9 L (6.3-8.2) g/dL Albumin 2.6 L (3.5-5.0) g/dL Amylase 33 (30-110) U/L Lipase 42 (23-300) U/L Disposition <Andrew Retana - Last Filed: 01/28/18 16:33> Is patient prescribed a controlled substance at d/c from ED?: No Time of Disposition: 16:12 Decision Date: 01/28/18 Decision Time: 15:00 <Mamie Omalley - Last Filed: 01/28/18 20:53> Clinical Impression: Hypokalemia, Nausea & vomiting, Hypochloremia, QT prolongation Disposition: ADMITTED IP TO THIS HOSP Condition: Stable
[2018-01-28] MEDS ORDERED: POTASSIUM CHLORIDE ER 20 MEQ TAB.ER PO STA (16:16)
[2018-01-28] MEDS ORDERED: POTASSIUM CHLORIDE 20 MEQ in WATER FOR INJECTION 1 100ML.BAG IVPB STA (16:17)
--- NOTE | 2018-01-28 16:34 | US ---
EXAMINATION TYPE: US abdomen limited DATE OF EXAM: 01/28/2018 COMPARISON: CT CLINICAL HISTORY: Evaluate pancreas and gallbladder. Abdominal pain EXAM MEASUREMENTS: Liver Length: 14.4 cm Gallbladder Wall: 0.2 cm CBD: 0.4 cm Right Kidney: 9.5 x 4.9 x 4.4 cm Exam limited due to extensive midline bowel gas. Pancreas: not visualized due to midline bowel gas Liver: wnl Gallbladder: No stones seen Evidence for sonographic Laird's sign: No CBD: wnl Right Kidney: No hydronephrosis or masses seen IMPRESSION: No gallstones or dilated ducts. Pancreas is somewhat obscured by bowel gas.
[2018-01-28] MEDS: SODIUM CHLORIDE 0.9% 1,000 ML IV SCH (17:55)
[2018-01-28] MEDS: IBUPROFEN 400 MG TAB PO PRN (18:02)
[2018-01-28] MEDS ORDERED: LIDOCAINE 4% CREAM 5 GM TUBE TOPICAL PRN (18:26)
[2018-01-28] MEDS ORDERED: BISMUTH SUBSALICYLATE PO PRN (18:26)
[2018-01-28] MEDS ORDERED: MELATONIN 3 MG TABLET PO PRN (18:26)
[2018-01-28] MEDS ORDERED: METHYL SALICYLATE/MENTHOL CREAM 5 OZ TOPICAL PRN (18:26)
[2018-01-28] MEDS: THIAMINE 100 MG TAB PO SCH (20:01)
[2018-01-28] MEDS: MAGNESIUM OXIDE 400 MG TAB PO SCH (20:01)
[2018-01-28] MEDS: POTASSIUM CHLORIDE ER 20 MEQ TAB.ER PO SCH (20:01)
[2018-01-28] MEDS: ALBUTEROL NEBULIZED 2.5 MG/3 ML INHALATION SCH (21:08)
[2018-01-28] MEDS: HYDROcodone/APAP 5-325MG 1 EACH TAB PO PRN (23:13)
[2018-01-28] MEDS ORDERED: Potassium Replacement Protocol 1 EACH MISC MISCELLANE PRN (23:39)
[2018-01-28] MEDS ORDERED: ZOLPIDEM 5 MG TAB PO PRN (23:47)
[2018-01-29] MEDS: ALBUTEROL NEBULIZED 2.5 MG/3 ML INHALATION SCH ×7 (00:40→23:44)
[2018-01-29] MEDS: POTASSIUM CHLORIDE ER 20 MEQ TAB.ER PO SCH ×4 (00:41→20:36)
[2018-01-29] MEDS: PANTOPRAZOLE 40 MG TABLET PO SCH (06:18)
[2018-01-29] MEDS: SODIUM CHLORIDE 0.9% 1,000 ML IV SCH (06:39)
[2018-01-29 07:16] LABS: Anion Gap 6 mmol/L; Blood Urea Nitrogen 6 mg/dL (9-20); Calcium 7.4 mg/dL (8.4-10.2); Carbon Dioxide 33 mmol/L (22-30); Chloride 97 mmol/L (98-107); Glucose 111 mg/dL (74-99); Potassium 3.7 mmol/L (3.5-5.1); Sodium 136 mmol/L (137-145)
[2018-01-29] MEDS ORDERED: POTASSIUM CHLORIDE ER 20 MEQ TAB.ER PO SCH (08:00)
[2018-01-29] MEDS: RIVAROXABAN 20 MG TAB PO SCH (08:39)
[2018-01-29] MEDS: MAGNESIUM OXIDE 400 MG TAB PO SCH ×2 (08:39→20:36)
[2018-01-29] MEDS ORDERED: NON-FORMULARY DRUG (Amino Acids/Protein Hydrolys [Pro-Stat Supplement] 30 ML) PO SCH (09:00)
[2018-01-29] MEDS: busPIRone HCl 10 MG TAB PO PRN (09:26)
--- NOTE | 2018-01-29 13:23 | P.HPIM ---
History of Present Illness H&P Date: 01/29/18 This a 58-year-old male who presented to [facility] emergency room was a chief complaint of nausea vomiting and diarrhea for about 36 hours prior to presentation he denies any abdominal pain Patient states he has had about 20 episodes of vomiting since midnight. And he has had a few episodes of diarrhea. He denies hematemesis, melena or hematochezia. Patient had a diagnosis of DVT and pulmonary embolism 6-8 weeks ago he was transferred to [facility] and underwent a procedure on his lung it's not clear from his description whether this is a thrombectomy or TPA infusion will try to obtain records. Patient also has known history of left knee surgery 2 months ago. Past Medical History Past Medical History: GERD/Reflux, Osteoarthritis (OA), Seizure Disorder, Syncope Additional Past Medical History / Comment(s): 1 SEIZURE APPROX 2010, alcoholism , alcohol withdrawal syndrome, delirium tremors, past acute psychosis, DJD, diverticular disease, SBO 2ndary to incarcerated R inguinal hernia.hands tremors. History of Any Multi-Drug Resistant Organisms: None Reported Past Surgical History: Appendectomy, Heart Catheterization, Hernia Repair, Joint Replacement, Orthopedic Surgery, Tonsillectomy Additional Past Surgical History / Comment(s): Colonoscopies and polypectomies, 10/21/15 normal cardiac cath, multiple inguinal hernia surg., bilateral knee arthroscopies and pt states bilateral knee arthroplasties. Past Anesthesia/Blood Transfusion Reactions: No Reported Reaction Past Psychological History: Anxiety, Depression Smoking Status: Current every day smoker Past Alcohol Use History: Daily Past Drug Use History: None Reported - Past Family History Father Family Medical History: Coronary Artery Disease (CAD), Myocardial Infarction (DE ) Additional Family Medical History / Comment(s): Father of a DE at the age of 73 yrs. Mother Family Medical History: Cancer Additional Family Medical History / Comment(s): Mother had breast cancer. She is 81 yrs old and now healthy. Medications and Allergies Home Medications Medication Instructions Recorded Confirmed Type Menthol [Biofreeze] 1 applic TOPICAL DAILY PRN 12/01/17 01/28/18 History Potassium Chloride ER [K-Dur 20] 20 meq PO BID 12/01/17 01/28/18 History busPIRone HCl [Buspar] 10 mg PO BID PRN 12/01/17 01/28/18 History Acetaminophen Tab [Tylenol Tab] 650 mg PO Q6H PRN 01/28/18 01/28/18 History Albuterol Nebulized [Ventolin 2.5 mg INHALATION RT-Q4H 01/28/18 01/28/18 History Nebulized] Amino Acids/Protein Hydrolys 30 ml PO DAILY 01/28/18 01/28/18 History [Pro-Stat Supplement] Aspercreme W/ Lidocain Cream 4 1 applic TOPICAL Q8H PRN 01/28/18 01/28/18 History Joslyn-Lanta Susp 200-200-20/5ml 30 ml PO Q6H PRN 01/28/18 01/28/18 History Hydrocodone/Acetaminophen [Bend 1 tab PO Q8H PRN 01/28/18 01/28/18 History 5-325] Kaopectate Suspensi 202mg/15ml 404 mg PO Q4H PRN 01/28/18 01/28/18 History Magnesium 400 mg PO BID 01/28/18 01/28/18 History Melatonin 3 mg PO HS PRN 01/28/18 01/28/18 History Omeprazole 20 mg PO DAILY 01/28/18 01/28/18 History Promethazine [Phenergan] 12.5 mg PO Q8HR PRN 01/28/18 01/28/18 History Rivaroxaban [Xarelto] 20 mg PO HS 01/28/18 01/28/18 History Thiamine HCl [Vitamin B-1] 100 mg PO HS 01/28/18 01/28/18 History Allergies Allergy/AdvReac Type Severity Reaction Status Date / Time tramadol AdvReac Mild Itching Verified 01/28/18 16:08 Physical Exam Vitals: Vital Signs Temp Pulse Pulse Resp BP BP Pulse Ox 01/29/18 11:44 96.9 F L 95 20 114/83 97 01/29/18 11:17 80 01/29/18 11:05 80 01/29/18 08:00 96.9 F L 86 20 116/79 94 L 01/29/18 04:00 97.3 F L 87 16 114/72 92 L 01/29/18 00:00 97.1 F L 89 16 101/70 96 01/28/18 21:18 89 01/28/18 21:08 90 01/28/18 20:00 98.1 F 92 16 106/69 94 L 01/28/18 17:50 98.1 F 94 16 112/76 92 L 01/28/18 17:33 98.0 F 91 16 112/78 95 01/28/18 14:15 95 16 103/71 99 Intake and Output 01/28/18 01/29/18 01/29/18 22:59 06:59 14:59 Intake Total 750 120 Balance 750 120 Intake: Intake, IV Titration 750 Amount Potassium Chloride 20 meq 100 In Water For Injection 1 100ml.bag @ 50 mls/hr IVPB ONCE STA Rx#: [id number] Sodium Chloride 0.9% 1, 650 000 ml @ 75 mls/hr IV . [id number] [facility] Rx#:[id number] Oral 120 Other: Voiding Method Urinal # Voids 1 # Bowel Movements 4 Weight 73.5 kg In general patient is alert and oriented 3 in no apparent distress HEENT head normocephalic and atraumatic Neck is supple no JVD no goiter no lymphadenopathy Chest exam reveals a few scattered rhonchi no wheezing Cardiac exam reveals regular heart sounds S1 and S2 no gallops no murmurs Abdomen is soft nontender no organomegaly with normal bowel sounds Extremity exam reveals no edema no cyanosis Neurological examination reveals no gross focal deficit Results CBC & Chem 7: 01/28/18 13:50 01/29/18 06:18 Labs: Abnormal Lab Results - Last 24 Hours (Table) 01/28/18 01/28/18 01/28/18 Range/Units 13:50 13:50 22:06 WBC 14.2 H (3.8-10.6) k/uL RBC 3.97 L (4.30-5.90) m/uL Hgb 12.7 L (13.0-17.5) gm/dL MCV 103.9 H (80.0-100.0) fL MCHC 30.9 L (31.0-37.0) g/dL RDW 18.5 H (11.5-15.5) % Plt Count 527 H (150-450) k/uL Neutrophils # 11.3 H (1.3-7.7) k/uL Sodium 135 L (137-145) mmol/L Potassium 2.7 L* 3.4 L (3.5-5.1) mmol/L Chloride 84 L (98-107) mmol/L Carbon Dioxide 42 H* (22-30) mmol/L BUN 5 L (9-20) mg/dL Creatinine (0.66-1.25) mg/dL Glucose 115 H (74-99) mg/dL Calcium 7.9 L (8.4-10.2) mg/dL AST 14 L (17-59) U/L ALT 16 L (21-72) U/L Alkaline Phosphatase 263 H (38-126) U/L Total Protein 5.9 L (6.3-8.2) g/dL Albumin 2.6 L (3.5-5.0) g/dL 01/29/18 Range/Units 06:18 WBC (3.8-10.6) k/uL RBC (4.30-5.90) m/uL Hgb (13.0-17.5) gm/dL MCV (80.0-100.0) fL MCHC (31.0-37.0) g/dL RDW (11.5-15.5) % Plt Count (150-450) k/uL Neutrophils # (1.3-7.7) k/uL Sodium 136 L (137-145) mmol/L Potassium (3.5-5.1) mmol/L Chloride 97 L (98-107) mmol/L Carbon Dioxide 33 H (22-30) mmol/L BUN 6 L (9-20) mg/dL Creatinine 0.63 L (0.66-1.25) mg/dL Glucose 111 H (74-99) mg/dL Calcium 7.4 L (8.4-10.2) mg/dL AST (17-59) U/L ALT (21-72) U/L Alkaline Phosphatase (38-126) U/L Total Protein (6.3-8.2) g/dL Albumin (3.5-5.0) g/dL Thrombosis Risk Factor Assmnt - Choose All That Apply Any of the Below Risk Factors Present?: Yes Each Factor Represents 1 point: Abnormal pulmonary function (COPD), Age 41-60 years, Swollen legs (current) Other Risk Factors: Yes Each Risk Factor Represents 3 Points: History of DVT/PE Other congenital or acquired thrombophilia - If yes, enter type in comment: No Thrombosis Risk Factor Assessment Total Risk Factor Score: 6 Thrombosis Risk Factor Assessment Level: High Risk Assessment and Plan Plan: #1 episodes of nausea and vomiting and diarrhea, likely related to gastroenteritis cause is unclear viral versus alcohol-induced, patient counseled in length in regards to alcohol cessation, at this time he is maintained on Pepcid and Protonix will continue, gastroenterology consult was requested, abdomen x-ray, abdomen ultrasound, amylase lipase, AST and a LT are old normal, alkaline phosphatase is elevated at 263 #2 severe hypokalemia with potassium of 2.7 correcting #3 underlying history of daily alcohol use patient was counseled in length in regards to stopping alcohol use #4 tobacco abuse patient was counseled in length in regard to smoking cessation counseling more than 5 minutes #5 recent history of DVT and pulmonary embolism maintained on Xarelto continue #6 early alcohol withdrawal well Will start Ativan when necessary #7 medication and labs were reviewed patient was counseled in length Awaiting gastroenterology input Will recheck labs in a.m.
[2018-01-29] MEDS: LORazepam 2 MG/ML INJ IV PRN ×3 (14:14→23:03)
[2018-01-29] MEDS: NICOTINE 21MG/24HR PATCH TRANSDERM SCH (16:39)
[2018-01-29] MEDS: HYDROcodone/APAP 5-325MG 1 EACH TAB PO PRN (20:36)
[2018-01-29] MEDS: THIAMINE 100 MG TAB PO SCH (23:08)
[2018-01-30] MEDS: LORazepam 2 MG/ML INJ IV PRN ×14 (02:49→23:12)
[2018-01-30] MEDS: ALBUTEROL NEBULIZED 2.5 MG/3 ML INHALATION SCH ×6 (04:10→22:44)
[2018-01-30] MEDS ORDERED: LORazepam 2 MG/ML INJ IV PRN (04:20)
[2018-01-30] MEDS: SODIUM CHLORIDE 0.9% 1,000 ML IV SCH ×3 (06:05→23:50)
[2018-01-30] MEDS: PANTOPRAZOLE 40 MG TABLET PO SCH (06:49)
[2018-01-30 08:17] LABS: Anisocytosis Slight; Basophils # (A) 0.1 k/uL (0-0.2); Basophils % (A) 1 %; Eosinophils # (A) 0.4 k/uL (0-0.7); Eosinophils % (A) 4 %; HGB 10.8 gm/dL (13.0-17.5); Lymphocytes # (A) 2.2 k/uL (1.0-4.8); Lymphocytes % (A) 21 %; MCH 32.7 pg (25.0-35.0); MCHC 31.7 g/dL (31.0-37.0); MCV 103.2 fL (80.0-100.0); Macrocytosis Moderate; Mean Platelet Volume 6.7; Monocytes # (A) 0.9 k/uL (0-1.0); Monocytes % (A) 9 %; Neutrophils # (A) 6.5 k/uL (1.3-7.7); Neutrophils % (A) 62 %; Platelet Count 440 k/uL (150-450); RBC 3.29 m/uL (4.30-5.90); RDW 18.2 % (11.5-15.5); WBC 10.5 k/uL (3.8-10.6)
[2018-01-30] MEDS: MAGNESIUM OXIDE 400 MG TAB PO SCH ×2 (08:42→20:06)
[2018-01-30] MEDS: POTASSIUM CHLORIDE ER 20 MEQ TAB.ER PO SCH ×2 (08:42→20:06)
[2018-01-30] MEDS: THIAMINE 100 MG TAB PO SCH ×3 (08:42→20:06)
[2018-01-30] MEDS: NICOTINE 21MG/24HR PATCH TRANSDERM SCH (08:42)
[2018-01-30 09:12] LABS: ALT 21 U/L (21-72); AST 20 U/L (17-59); Albumin 2.3 g/dL (3.5-5.0); Alkaline Phosphatase 173 U/L (38-126); Anion Gap 7 mmol/L; Blood Urea Nitrogen 5 mg/dL (9-20); Calcium 7.7 mg/dL (8.4-10.2); Carbon Dioxide 28 mmol/L (22-30); Chloride 101 mmol/L (98-107); Glucose 84 mg/dL (74-99); Potassium 3.9 mmol/L (3.5-5.1); Sodium 136 mmol/L (137-145); Total Bilirubin 0.8 mg/dL (0.2-1.3); Total Protein 5.3 g/dL (6.3-8.2)
--- NOTE | 2018-01-30 14:39 | P.CONS ---
History of Present Illness - Reason for Consult Consult date: 01/29/18 Vomiting - History of Present Illness The patient is a 58-year-old male who presented to the emergency department with the complaint of nausea, vomiting and diarrhea off 36 hours duration. He denied any hematemesis or hematochezia. No fever, chills or significant abdominal pain. No recent travel or use of antibiotics or any change in his medications. The patient has history of DVT 2 months ago around the time he had his left knee surgery. He has history of COPD and osteoarthritis and has history of alcohol excessive use in the past. Review of Systems Constitutional: Denies fever, chills or unintentional weight loss Neurologic: No headaches, double vision or other sensory or motor changes. History of seizure disorder Cardiopulmonary: No chest pain, shortness of breath or palpitations Gastrointestinal: See present illness above Genitourinary: Denies hematuria, dysuria or frequency Endocrine: No history of diabetes or thyroid disease Musculoskeletal: History of osteoarthritis Skin: No rashes Hematologic: No anemia or bleeding tendency Psychiatric: History of acute psychosis Past Medical History Past Medical History: GERD/Reflux, Osteoarthritis (OA), Seizure Disorder, Syncope Additional Past Medical History / Comment(s): 1 SEIZURE APPROX 2010, alcoholism , alcohol withdrawal syndrome, delirium tremors, past acute psychosis, DJD, diverticular disease, SBO 2ndary to incarcerated R inguinal hernia.hands tremors. History of Any Multi-Drug Resistant Organisms: None Reported Past Surgical History: Appendectomy, Heart Catheterization, Hernia Repair, Joint Replacement, Orthopedic Surgery, Tonsillectomy Additional Past Surgical History / Comment(s): Colonoscopies and polypectomies, 10/21/15 normal cardiac cath, multiple inguinal hernia surg., bilateral knee arthroscopies and pt states bilateral knee arthroplasties. Past Anesthesia/Blood Transfusion Reactions: No Reported Reaction Past Psychological History: Anxiety, Depression Smoking Status: Current every day smoker Past Alcohol Use History: Daily Past Drug Use History: None Reported - Past Family History Father Family Medical History: Coronary Artery Disease (CAD), Myocardial Infarction (OR ) Additional Family Medical History / Comment(s): Father of a OR at the age of 73 yrs. Mother Family Medical History: Cancer Additional Family Medical History / Comment(s): Mother had breast cancer. She is 81 yrs old and now healthy. Medications and Allergies Home Medications Medication Instructions Recorded Confirmed Type Menthol [Biofreeze] 1 applic TOPICAL DAILY PRN 12/01/17 01/28/18 History Potassium Chloride ER [K-Dur 20] 20 meq PO BID 12/01/17 01/28/18 History busPIRone HCl [Buspar] 10 mg PO BID PRN 12/01/17 01/28/18 History Acetaminophen Tab [Tylenol Tab] 650 mg PO Q6H PRN 01/28/18 01/28/18 History Albuterol Nebulized [Ventolin 2.5 mg INHALATION RT-Q4H 01/28/18 01/28/18 History Nebulized] Amino Acids/Protein Hydrolys 30 ml PO DAILY 01/28/18 01/28/18 History [Pro-Stat Supplement] Aspercreme W/ Lidocain Cream 4 1 applic TOPICAL Q8H PRN 01/28/18 01/28/18 History Joslyn-Lanta Susp 200-200-20/5ml 30 ml PO Q6H PRN 01/28/18 01/28/18 History Hydrocodone/Acetaminophen [[place] 1 tab PO Q8H PRN 01/28/18 01/28/18 History 5-325] Kaopectate Suspensi 202mg/15ml 404 mg PO Q4H PRN 01/28/18 01/28/18 History Magnesium 400 mg PO BID 01/28/18 01/28/18 History Melatonin 3 mg PO HS PRN 01/28/18 01/28/18 History Omeprazole 20 mg PO DAILY 01/28/18 01/28/18 History Promethazine [Phenergan] 12.5 mg PO Q8HR PRN 01/28/18 01/28/18 History Rivaroxaban [Xarelto] 20 mg PO HS 01/28/18 01/28/18 History Thiamine HCl [Vitamin B-1] 100 mg PO HS 01/28/18 01/28/18 History Allergies Allergy/AdvReac Type Severity Reaction Status Date / Time tramadol AdvReac Mild Itching Verified 01/28/18 16:08 Physical Exam Vitals: Vital Signs Temp Pulse Pulse Resp BP BP Pulse Ox 01/29/18 11:44 96.9 F L 95 20 114/83 97 01/29/18 11:17 80 01/29/18 11:05 80 01/29/18 08:00 96.9 F L 86 20 116/79 94 L 01/29/18 04:00 97.3 F L 87 16 114/72 92 L 01/29/18 00:00 97.1 F L 89 16 101/70 96 01/28/18 21:18 89 01/28/18 21:08 90 01/28/18 20:00 98.1 F 92 16 106/69 94 L 01/28/18 17:50 98.1 F 94 16 112/76 92 L 01/28/18 17:33 98.0 F 91 16 112/78 95 Intake and Output 01/29/18 01/29/18 01/29/18 06:59 14:59 22:59 Intake Total 750 720 Output Total 200 Balance 750 520 Intake: Intake, IV Titration 750 600 Amount Potassium Chloride 20 meq 100 In Water For Injection 1 100ml.bag @ 50 mls/hr IVPB ONCE STA Rx#: [id number] Sodium Chloride 0.9% 1, 650 600 000 ml @ 75 mls/hr IV . [id number] [facility] Rx#:[id number] Oral 120 Output: Urine 200 Other: # Voids 1 # Bowel Movements 4 Weight 73.5 kg General: Appeared stated age, very pleasant in no acute distress Head and neck: Normocephalic and atraumatic, conjunctivae pink and sclerae not icteric. Mucous membranes moist and pink. No masses in the neck or tracheal shift Lungs: Clear to auscultation with no dullness to percussion Heart: Regular, no abnormal sounds, murmurs, gallops or friction rubs Abdomen: Soft, no masses or organomegalies, no tenderness. Bowel sounds present Extremities: No clubbing, cyanosis or edema Neurologic: Alert and oriented 3, cranial nerves grossly intact, no gross sensory or motor abnormalities Results CBC & Chem 7: 01/30/18 07:51 01/30/18 07:51 Labs: Abnormal Lab Results - Last 24 Hours (Table) 01/28/18 01/29/18 Range/Units 22:06 06:18 Sodium 136 L (137-145) mmol/L Potassium 3.4 L (3.5-5.1) mmol/L Chloride 97 L (98-107) mmol/L Carbon Dioxide 33 H (22-30) mmol/L BUN 6 L (9-20) mg/dL Creatinine 0.63 L (0.66-1.25) mg/dL Glucose 111 H (74-99) mg/dL Calcium 7.4 L (8.4-10.2) mg/dL Assessment and Plan Assessment: Nausea, vomiting and diarrhea of acute onset, likely secondary to gastroenteritis. Other etiologies including ischemic or self-limited colitis, alcohol-related gastritis and diarrhea to be kept in mind. Will monitor closely for alcohol withdrawal likel you have suggested. Plan: Agree with your current management. Will continue to observe closely and I will consider endoscopic evaluation and additional testing based on his course. We will follow with you with interest.
--- NOTE | 2018-01-30 14:44 | P.PN ---
Subjective Progress Note Date: 01/30/18 This a 58-year-old male who presented to [facility] emergency room was a chief complaint of nausea vomiting and diarrhea for about 36 hours prior to presentation he denies any abdominal pain Patient states he has had about 20 episodes of vomiting since midnight. And he has had a few episodes of diarrhea. He denies hematemesis, melena or hematochezia. Patient had a diagnosis of DVT and pulmonary embolism 6-8 weeks ago he was transferred to [facility] and underwent a procedure on his lung it's not clear from his description whether this is a thrombectomy or TPA infusion will try to obtain records. Patient also has known history of left knee surgery 2 months ago. On 01/30/2018 patient today is confused having significant episodes of shaking, he has evidence of early delirium tremens, he is maintained on CIWA protocol and receiving IV Ativan every hour at this time he is also receiving IV fluid Objective - Vital Signs Vital signs: Vital Signs Temp 97.2 F L 01/30/18 12:00 Pulse 110 H 01/30/18 12:00 Resp 18 01/30/18 12:00 BP 126/92 01/30/18 12:00 Pulse Ox 91 L 01/30/18 12:00 Intake & Output 01/29/18 01/30/18 01/30/18 18:59 06:59 18:59 Intake Total 957 650 Output Total 200 Balance 757 650 Weight 75.1 kg Intake: Intake, IV Titration 600 650 Amount Sodium Chloride 0.9% 1, 600 650 000 ml @ 75 mls/hr IV . [id number] [facility] Rx#:[id number] Oral 357 Output: Urine 200 Other: Voiding Method Urinal # Voids 1 2 - Exam In general patient is alert and oriented 3 in no apparent distress HEENT head normocephalic and atraumatic Neck is supple no JVD no goiter no lymphadenopathy Chest exam reveals a few scattered rhonchi no wheezing Cardiac exam reveals regular heart sounds S1 and S2 no gallops no murmurs Abdomen is soft nontender no organomegaly with normal bowel sounds Extremity exam reveals no edema no cyanosis Neurological examination reveals no gross focal deficit - Labs CBC & Chem 7: 01/30/18 07:51 01/30/18 07:51 Labs: Abnormal Lab Results - Last 24 Hours (Table) 01/30/18 01/30/18 Range/Units 07:51 07:51 RBC 3.29 L (4.30-5.90) m/uL Hgb 10.8 L (13.0-17.5) gm/dL Hct 34.0 L (39.0-53.0) % MCV 103.2 H (80.0-100.0) fL RDW 18.2 H (11.5-15.5) % Sodium 136 L (137-145) mmol/L BUN 5 L (9-20) mg/dL Creatinine 0.63 L (0.66-1.25) mg/dL Calcium 7.7 L (8.4-10.2) mg/dL Alkaline Phosphatase 173 H (38-126) U/L Total Protein 5.3 L (6.3-8.2) g/dL Albumin 2.3 L (3.5-5.0) g/dL Assessment and Plan Plan: #1 episodes of nausea and vomiting and diarrhea, likely related to gastroenteritis cause is unclear viral versus alcohol-induced, patient counseled in length in regards to alcohol cessation, at this time he is maintained on Pepcid and Protonix will continue, gastroenterology consult was requested, abdomen x-ray, abdomen ultrasound, amylase lipase, AST and a LT are old normal, alkaline phosphatase is elevated at 263 #2 severe hypokalemia with potassium of 2.7 corrected #3 underlying history of daily alcohol use patient was counseled in length in regards to stopping alcohol use, today patient has evidence of delirium tremens he is maintained on IV Ativan and IV fluid and IV thiamine will continue to monitor closely #4 tobacco abuse patient was counseled in length in regard to smoking cessation counseling more than 5 minutes #5 recent history of DVT and pulmonary embolism maintained on Xarelto continue #6 medication and labs were reviewed patient was counseled in length Awaiting gastroenterology input Will recheck labs in a.m.
[2018-01-30] MEDS: RIVAROXABAN 20 MG TAB PO SCH (16:53)
[2018-01-30] MEDS ORDERED: ALBUTEROL NEBULIZED 2.5 MG/3 ML INHALATION PRN (22:44)
[2018-01-31] MEDS: LORazepam 2 MG/ML INJ IV PRN ×10 (00:24→21:15)
[2018-01-31] MEDS: HYDROcodone/APAP 5-325MG 1 EACH TAB PO PRN (07:49)
[2018-01-31] MEDS: NICOTINE 21MG/24HR PATCH TRANSDERM SCH (07:52)
[2018-01-31] MEDS: PANTOPRAZOLE 40 MG TABLET PO SCH (07:52)
[2018-01-31] MEDS: POTASSIUM CHLORIDE ER 20 MEQ TAB.ER PO SCH ×2 (07:52→21:06)
[2018-01-31] MEDS: MAGNESIUM OXIDE 400 MG TAB PO SCH ×2 (07:52→21:07)
[2018-01-31] MEDS: SODIUM CHLORIDE 0.9% 1,000 ML IV SCH ×2 (07:52→12:48)
[2018-01-31] MEDS: ALBUTEROL NEBULIZED 2.5 MG/3 ML INHALATION SCH ×4 (08:20→21:38)
[2018-01-31] MEDS: IBUPROFEN 400 MG TAB PO PRN (09:18)
--- NOTE | 2018-01-31 10:31 | P.PN ---
Subjective Progress Note Date: 01/31/18 This a 58-year-old male who presented to [facility] emergency room was a chief complaint of nausea vomiting and diarrhea for about 36 hours prior to presentation he denies any abdominal pain Patient states he has had about 20 episodes of vomiting since midnight. And he has had a few episodes of diarrhea. He denies hematemesis, melena or hematochezia. Patient had a diagnosis of DVT and pulmonary embolism 6-8 weeks ago he was transferred to [facility] and underwent a procedure on his lung it's not clear from his description whether this is a thrombectomy or TPA infusion will try to obtain records. Patient also has known history of left knee surgery 2 months ago. On 01/30/2018 patient today is confused having significant episodes of shaking, he has evidence of early delirium tremens, he is maintained on CIWA protocol and receiving IV Ativan every hour at this time he is also receiving IV fluid On 01/31/2018 patient remains confused and having symptoms of alcohol withdrawal. Patient is currently on the CIWA protocal. Social work and physical therapy services also consulted due to patient stating this on his own. Per nursing staff patient is a 2 person assist. Patient denies chest pain or shortness breath. patient denies nausea vomiting or diarrhea. Patient denies any burning or frequency. Objective - Vital Signs Vital signs: Vital Signs Temp 98.2 F 01/31/18 07:18 Pulse 104 H 01/31/18 08:32 Resp 18 01/31/18 07:18 BP 113/73 01/31/18 07:18 Pulse Ox 92 L 01/31/18 07:18 Intake & Output 01/30/18 01/31/18 01/31/18 18:59 06:59 18:59 Intake Total 1317 536 Output Total 50 0 150 Balance 1267 536 -150 Weight 75.1 kg Intake: Intake, IV Titration 600 300 Amount Sodium Chloride 0.9% 1, 600 300 000 ml @ 100 mls/hr IV . Q10H [facility] Rx#:[id number] Oral 717 236 Output: Urine 50 0 150 Other: Voiding Method Urinal Incontinent # Voids 1 2 1 # Bowel Movements 4 - Exam Head normocephalic Neck supple Lungs clear to auscultation bilaterally no wheezing or crackles Heart regular rate and rhythm S1-S2, no rub or gallop Abdomen is soft nontender nondistended positive bowel sounds no hepatosplenomegaly Extremities no edema Neuro reveals no gross focal deficit. - Labs CBC & Chem 7: 01/30/18 07:51 01/30/18 07:51 Assessment and Plan Assessment: #1 episodes of nausea and vomiting and diarrhea, likely related to gastroenteritis cause is unclear viral versus alcohol-induced, patient counseled in length in regards to alcohol cessation, at this time he is maintained on Pepcid and Protonix will continue, gastroenterology consult was requested, abdomen x-ray, abdomen ultrasound, amylase lipase, AST and a LT are old normal, alkaline phosphatase is elevated at 263. Per GI services, nausea, vomiting and diarrhea. Acute onset likely secondary to gastroenteritis and will consider endoscopic evaluation and additional testing based on his course. #2 severe hypokalemia with potassium of 2.7 corrected #3 underlying history of daily alcohol use patient was counseled in length in regards to stopping alcohol use, today patient has evidence of delirium tremens he is maintained on IV Ativan and IV fluid and IV thiamine will continue to monitor closely #4 tobacco abuse patient was counseled in length in regard to smoking cessation counseling more than 5 minutes #5 recent history of DVT and pulmonary embolism maintained on Xarelto continue #6 medication and labs were reviewed patient was counseled in length Physical therapy and social work has been consulted. Patient states he lives alone. Per nursing staff patient is currently a 2 person assist DVT prophylaxis Xarelto. GI prophylaxis Pepcid I performed an examination of the patient and discussed their management with the Nurse Practitioner. I have reviewed the Nurse Practitioner's notes and agree with the documented findings and plan of care
[2018-01-31 11:30] LABS: ALT 20 U/L (21-72); AST 14 U/L (17-59); Albumin 2.2 g/dL (3.5-5.0); Alkaline Phosphatase 161 U/L (38-126); Anion Gap 6 mmol/L; Blood Urea Nitrogen 5 mg/dL (9-20); Calcium 7.8 mg/dL (8.4-10.2); Carbon Dioxide 25 mmol/L (22-30); Chloride 105 mmol/L (98-107); Glucose 80 mg/dL (74-99); Potassium 4.1 mmol/L (3.5-5.1); Sodium 136 mmol/L (137-145); Total Bilirubin 0.6 mg/dL (0.2-1.3); Total Protein 5.3 g/dL (6.3-8.2)
[2018-01-31 11:32] LABS: Anisocytosis Slight; Basophils # (A) 0.1 k/uL (0-0.2); Basophils % (A) 1 %; Eosinophils # (A) 0.5 k/uL (0-0.7); Eosinophils % (A) 6 %; HCT 35.9 % (39.0-53.0); HGB 11.1 gm/dL (13.0-17.5); Hypochromasia Moderate; Lymphocytes # (A) 1.7 k/uL (1.0-4.8); Lymphocytes % (A) 20 %; MCH 33.4 pg (25.0-35.0); MCHC 30.8 g/dL (31.0-37.0); Macrocytosis Marked; Mean Platelet Volume 6.6; Monocytes # (A) 0.6 k/uL (0-1.0); Monocytes % (A) 7 %; Neutrophils # (A) 5.4 k/uL (1.3-7.7); Neutrophils % (A) 65 %; Platelet Count 409 k/uL (150-450); RBC 3.31 m/uL (4.30-5.90); RDW 18.5 % (11.5-15.5); WBC 8.3 k/uL (3.8-10.6)
[2018-01-31 11:36] LABS: MCV 108.5 fL (80.0-100.0)
[2018-01-31 12:08] LABS: Poikilocytosis (M) Present; Polychromasia Present
[2018-01-31] MEDS: THIAMINE 100 MG TAB PO SCH ×3 (12:34→21:06)
--- NOTE | 2018-01-31 15:37 | XR ---
Left knee HISTORY: Left knee swelling 3 views of the left knee Correlation to prior exam 10/26/2014 Patient is status post left knee arthroplasty. Soft tissue swelling is present. There is a joint effu noe. IMPRESSION: Joint effusion. Postop changes.
[2018-01-31] MEDS: RIVAROXABAN 20 MG TAB PO SCH (17:38)
--- NOTE | 2018-01-31 18:15 | P.PN ---
Subjective Progress Note Date: 01/31/18 Principal diagnosis: Nausea vomiting diarrhea Patient lying in bed with no further symptoms or signs of nausea and vomiting. He is currently confused and asking to go home. Objective - Vital Signs Vital signs: Vital Signs Temp 97.5 F L 01/31/18 13:38 Pulse 90 01/31/18 16:12 Resp 18 01/31/18 16:00 BP 107/74 01/31/18 13:38 Pulse Ox 95 01/31/18 16:02 Intake & Output 01/30/18 01/31/18 01/31/18 18:59 06:59 18:59 Intake Total 1317 536 120 Output Total 50 0 300 Balance 1267 536 -180 Weight 75.1 kg Intake: Intake, IV Titration 600 300 Amount Sodium Chloride 0.9% 1, 600 300 000 ml @ 100 mls/hr IV . Q10H [facility] Rx#:[id number] Oral 717 236 120 Output: Urine 50 0 300 Other: Voiding Method Urinal Incontinent # Voids 1 2 1 # Bowel Movements 4 - Exam On physical examination, patient appears comfortable in no apparent distress. HEAD: Normocephalic, atraumatic. EYES: No scleral icterus. No conjunctival injection. MOUTH: No lesions, tongue midline. NECK: Trachea midline, no gross abnormalities. CHEST: Clear to auscultation with no wheezing or rhonchi appreciated. HEART: Regular rate and rhythm. ABDOMEN: Soft. Bowel sounds are positive. No organomegaly. No guarding or rigidity. EXTREMITIES: No pedal edema. SKIN: No rashes, no jaundice. NEUROLOGIC: Alert and oriented but confused. No focal deficits. No asterixis but tremulousness noted likely secondary to alcohol withdrawal. - Labs CBC & Chem 7: 01/31/18 10:55 01/31/18 10:55 Labs: Abnormal Lab Results - Last 24 Hours (Table) 01/31/18 01/31/18 01/31/18 Range/Units 10:55 10:55 10:55 RBC 3.31 L (4.30-5.90) m/uL Hgb 11.1 L (13.0-17.5) gm/dL Hct 35.9 L (39.0-53.0) % MCV 108.5 H D (80.0-100.0) fL MCHC 30.8 L (31.0-37.0) g/dL RDW 18.5 H (11.5-15.5) % Sodium 136 L (137-145) mmol/L BUN 5 L (9-20) mg/dL Creatinine 0.65 L (0.66-1.25) mg/dL Calcium 7.8 L (8.4-10.2) mg/dL AST 14 L (17-59) U/L ALT 20 L (21-72) U/L Alkaline Phosphatase 161 H (38-126) U/L C-Reactive Protein 89.2 H (<10.0) mg/L Total Protein 5.3 L (6.3-8.2) g/dL Albumin 2.2 L (3.5-5.0) g/dL Assessment and Plan (1) Nausea & vomiting Narrative/Plan: May be secondary to acute viral gastroenteritis or alcohol use. Currently improved. Current Visit: Yes Status: Acute Code(s): R11.2 - NAUSEA WITH VOMITING, UNSPECIFIED SNOMED Code(s): 74453091 (2) Alcohol withdrawal Narrative/Plan: Currently patient is undergoing alcohol withdrawal and is in [facility] protocol Current Visit: No Status: Acute Code(s): F10.239 - ALCOHOL DEPENDENCE WITH WITHDRAWAL, UNSPECIFIED SNOMED Code(s): 602205685 Plan: Supportive care Fluids and electrolyte replacement [facility] protocol Continue to monitor Okay for diet when mentation allows We'll continue to follow Thank you for allowing us to participate in the care of this patient
[2018-01-31] MEDS: busPIRone HCl 10 MG TAB PO PRN (18:21)
[2018-02-01] MEDS: SODIUM CHLORIDE 0.9% 1,000 ML IV SCH ×2 (06:38→09:25)
[2018-02-01] MEDS: ALBUTEROL NEBULIZED 2.5 MG/3 ML INHALATION SCH ×4 (08:30→19:26)
[2018-02-01] MEDS: PANTOPRAZOLE 40 MG TABLET PO SCH (09:23)
[2018-02-01] MEDS: NICOTINE 21MG/24HR PATCH TRANSDERM SCH (09:23)
[2018-02-01] MEDS: MAGNESIUM OXIDE 400 MG TAB PO SCH ×2 (09:23→22:17)
[2018-02-01] MEDS: POTASSIUM CHLORIDE ER 20 MEQ TAB.ER PO SCH (09:24)
[2018-02-01] MEDS: busPIRone HCl 10 MG TAB PO PRN ×2 (09:24→22:11)
[2018-02-01 10:10] LABS: Anisocytosis Slight; Basophils # (A) 0.1 k/uL (0-0.2); Basophils % (A) 1 %; Eosinophils # (A) 0.5 k/uL (0-0.7); Eosinophils % (A) 5 %; HCT 33.7 % (39.0-53.0); HGB 10.6 gm/dL (13.0-17.5); Hypochromasia Moderate; Lymphocytes # (A) 2.1 k/uL (1.0-4.8); Lymphocytes % (A) 21 %; MCHC 31.5 g/dL (31.0-37.0); Macrocytosis Marked; Mean Platelet Volume 7.6; Monocytes # (A) 0.8 k/uL (0-1.0); Monocytes % (A) 8 %; Neutrophils # (A) 6.3 k/uL (1.3-7.7); Neutrophils % (A) 63 %; Platelet Count 412 k/uL (150-450); RBC 3.12 m/uL (4.30-5.90); RDW 18.3 % (11.5-15.5)
[2018-02-01 10:24] LABS: ALT 21 U/L (21-72); AST 17 U/L (17-59); Alkaline Phosphatase 123 U/L (38-126); Anion Gap 4 mmol/L; Blood Urea Nitrogen 7 mg/dL (9-20); Calcium 7.7 mg/dL (8.4-10.2); Carbon Dioxide 22 mmol/L (22-30); Chloride 112 mmol/L (98-107); Glucose 90 mg/dL (74-99); Sodium 138 mmol/L (137-145); Total Bilirubin 0.4 mg/dL (0.2-1.3); Total Protein 4.8 g/dL (6.3-8.2)
--- NOTE | 2018-02-01 10:36 | P.CNOR ---
History of Present Illness - [facility] Consult date: 02/01/18 Requesting physician: Aravind Laird Consult reason: joint pain History of present illness: Patient is a pleasant 58-year-old male seen at bedside this morning. Orthopedics is consulted for his left knee pain and effusion. Patient has been admitted to internal medicine suffering from delirium tremens. He states that he injured his left knee approximately 2 months ago when he fell back on it and describes a hyperflexion type injury. He states it has been painful and swollen for the past 2 months. He is status post left total knee arthroplasty performed by Dr. Laird 2 years ago. He denies calf pain, numbness or tingling. He is also currently denying fever or chills. He has no other complaints this morning. Review of Systems All systems: negative Constitutional: Denies chills, Denies fever Eyes: denies blurred vision, denies pain Ears, nose, mouth and throat: Denies headache, Denies sore throat Cardiovascular: Denies chest pain, Denies shortness of breath Respiratory: Denies cough Gastrointestinal: Denies abdominal pain, Denies diarrhea, Denies nausea, Denies vomiting Musculoskeletal: Denies myalgias Integumentary: Denies pruritus, Denies rash Neurological: Denies numbness, Denies weakness Psychiatric: Denies anxiety, Denies depression Endocrine: Denies fatigue, Denies weight change Past Medical History Past Medical History: GERD/Reflux, Osteoarthritis (OA), Seizure Disorder, Syncope Additional Past Medical History / Comment(s): 1 SEIZURE APPROX 2010, alcoholism , alcohol withdrawal syndrome, delirium tremors, past acute psychosis, DJD, diverticular disease, SBO 2ndary to incarcerated R inguinal hernia.hands tremors. History of Any Multi-Drug Resistant Organisms: None Reported Past Surgical History: Appendectomy, Heart Catheterization, Hernia Repair, Joint Replacement, Orthopedic Surgery, Tonsillectomy Additional Past Surgical History / Comment(s): Colonoscopies and polypectomies, 10/21/15 normal cardiac cath, multiple inguinal hernia surg., bilateral knee arthroscopies and pt states bilateral knee arthroplasties. Past Anesthesia/Blood Transfusion Reactions: No Reported Reaction Past Psychological History: Anxiety, Depression Smoking Status: Current every day smoker Past Alcohol Use History: Daily Past Drug Use History: None Reported - Past Family History Father Family Medical History: Coronary Artery Disease (CAD), Myocardial Infarction (OR ) Additional Family Medical History / Comment(s): Father of a OR at the age of 73 yrs. Mother Family Medical History: Cancer Additional Family Medical History / Comment(s): Mother had breast cancer. She is 81 yrs old and now healthy. Medications and Allergies Home Medications Medication Instructions Recorded Confirmed Type Menthol [Biofreeze] 1 applic TOPICAL DAILY PRN 12/01/17 01/28/18 History Potassium Chloride ER [K-Dur 20] 20 meq PO BID 12/01/17 01/28/18 History busPIRone HCl [Buspar] 10 mg PO BID PRN 12/01/17 01/28/18 History Acetaminophen Tab [Tylenol Tab] 650 mg PO Q6H PRN 01/28/18 01/28/18 History Albuterol Nebulized [Ventolin 2.5 mg INHALATION RT-Q4H 01/28/18 01/28/18 History Nebulized] Amino Acids/Protein Hydrolys 30 ml PO DAILY 01/28/18 01/28/18 History [Pro-Stat Supplement] Aspercreme W/ Lidocain Cream 4 1 applic TOPICAL Q8H PRN 01/28/18 01/28/18 History Joslyn-Lanta Susp 200-200-20/5ml 30 ml PO Q6H PRN 01/28/18 01/28/18 History Hydrocodone/Acetaminophen [[place] 1 tab PO Q8H PRN 01/28/18 01/28/18 History 5-325] Kaopectate Suspensi 202mg/15ml 404 mg PO Q4H PRN 01/28/18 01/28/18 History Magnesium 400 mg PO BID 01/28/18 01/28/18 History Melatonin 3 mg PO HS PRN 01/28/18 01/28/18 History Omeprazole 20 mg PO DAILY 01/28/18 01/28/18 History Promethazine [Phenergan] 12.5 mg PO Q8HR PRN 01/28/18 01/28/18 History Rivaroxaban [Xarelto] 20 mg PO HS 01/28/18 01/28/18 History Thiamine HCl [Vitamin B-1] 100 mg PO HS 01/28/18 01/28/18 History Allergies Allergy/AdvReac Type Severity Reaction Status Date / Time tramadol AdvReac Mild Itching Verified 01/28/18 16:08 Physical Examination Inspection of the left lower extremity shows a large joint effusion at the knee. Well-healed surgical wound. The knee is not red or overly hot to touch. It is tender to palpation. He extends to -5 and flexes to 90 with pain. Knee appears to be ligamentously stable. there is no deformity. There are no wounds or evidence of abscess. Calf is soft and nontender. 2+ plus dorsalis pedis pulse and less than 2 second capillary refill is present. Neurovascular status intact throughout the left lower extremity. Results x-ray of the left knee shows hardware components in place. No malalignment. There is no evidence of fracture or dislocation. There is effusion - Labs Labs: Abnormal Lab Results - Last 24 Hours (Table) 01/31/18 01/31/18 01/31/18 Range/Units 10:55 10:55 10:55 RBC 3.31 L (4.30-5.90) m/uL Hgb 11.1 L (13.0-17.5) gm/dL Hct 35.9 L (39.0-53.0) % MCV 108.5 H D (80.0-100.0) fL MCHC 30.8 L (31.0-37.0) g/dL RDW 18.5 H (11.5-15.5) % ESR 61 H (0-15) mm/hr Sodium 136 L (137-145) mmol/L BUN 5 L (9-20) mg/dL Creatinine 0.65 L (0.66-1.25) mg/dL Calcium 7.8 L (8.4-10.2) mg/dL AST 14 L (17-59) U/L ALT 20 L (21-72) U/L Alkaline Phosphatase 161 H (38-126) U/L C-Reactive Protein (<10.0) mg/L Total Protein 5.3 L (6.3-8.2) g/dL Albumin 2.2 L (3.5-5.0) g/dL 01/31/18 02/01/18 Range/Units 10:55 09:18 RBC 3.12 L (4.30-5.90) m/uL Hgb 10.6 L (13.0-17.5) gm/dL Hct 33.7 L (39.0-53.0) % MCV 108.0 H (80.0-100.0) fL MCHC (31.0-37.0) g/dL RDW 18.3 H (11.5-15.5) % ESR (0-15) mm/hr Sodium (137-145) mmol/L BUN (9-20) mg/dL Creatinine (0.66-1.25) mg/dL Calcium (8.4-10.2) mg/dL AST (17-59) U/L ALT (21-72) U/L Alkaline Phosphatase (38-126) U/L C-Reactive Protein 89.2 H (<10.0) mg/L Total Protein (6.3-8.2) g/dL Albumin (3.5-5.0) g/dL H & H 01/28/18 01/30/18 01/31/18 Range/Units 13:50 07:51 10:55 Hgb 12.7 L 10.8 L 11.1 L (13.0-17.5) gm/dL Hct 41.2 34.0 L 35.9 L (39.0-53.0) % 02/01/18 Range/Units 09: Hgb 10.6 L (13.0-17.5) gm/dL Hct 33.7 L (39.0-53.0) % Result Diagrams: 02/01/18 09:18 01/31/18 10:55 Assessment and Plan (1) Effusion, left knee Narrative/Plan: Patient does not appear to have an acute left knee infection. His white blood cell count was normal. The joint is not hot and red. He does have an effusion however and recommended initial measures including thigh AURELIO hose with a compressive Thor wrap and utilizing ice. We will monitor while he is an inpatient and he is to follow up as an outpatient with Dr. Laird for further evaluation and recommendations. Current Visit: Yes Status: Acute Priority: Medium Code(s): M25.462 - EFFUSION, LEFT KNEE SNOMED Code(s): 650678047 Time with Patient: Less than 30
[2018-02-01 10:37] LABS: Potassium 5.3 mmol/L (3.5-5.1)
--- NOTE | 2018-02-01 10:46 | P.PN ---
Subjective Progress Note Date: 02/01/18 This a 58-year-old male who presented to [facility] emergency room was a chief complaint of nausea vomiting and diarrhea for about 36 hours prior to presentation he denies any abdominal pain Patient states he has had about 20 episodes of vomiting since midnight. And he has had a few episodes of diarrhea. He denies hematemesis, melena or hematochezia. Patient had a diagnosis of DVT and pulmonary embolism 6-8 weeks ago he was transferred to [facility] and underwent a procedure on his lung it's not clear from his description whether this is a thrombectomy or TPA infusion will try to obtain records. Patient also has known history of left knee surgery 2 months ago. On 01/30/2018 patient today is confused having significant episodes of shaking, he has evidence of early delirium tremens, he is maintained on CIWA protocol and receiving IV Ativan every hour at this time he is also receiving IV fluid On 01/31/2018 patient remains confused and having symptoms of alcohol withdrawal. Patient is currently on the CIWA protocal. Social work and physical therapy services also consulted due to patient stating he lives on his own. Per nursing staff patient is a 2 person assist. Patient denies chest pain or shortness breath. patient denies nausea vomiting or diarrhea. Patient denies any burning or frequency. On 02/01/2018 patient remains confused displaying symptoms of alcohol withdrawal. Orthopedic services consulted for increased left knee swelling yesterday. Patient has increased shortness of breath. Chest x-ray ordered and pulmonary services have been consulted. Patient having low-grade temperatures. Blood and urine and sputum cultures have been ordered. Due to patient's increased confusion head CT and ammonia level ordered. At this time patient denies chest pain. Denies nausea vomiting or diarrhea. Denies any urinary burning or frequency. Objective - Vital Signs Vital signs: Vital Signs Temp 99.5 F 02/01/18 07:00 Pulse 102 H 02/01/18 08:44 Resp 22 02/01/18 08:30 BP 118/84 02/01/18 07:00 Pulse Ox 95 02/01/18 08:30 Intake & Output 01/31/18 02/01/18 02/01/18 18:59 06:59 18:59 Intake Total 120 Output Total 300 Balance -180 Weight 75.1 kg Intake: Oral 120 Output: Urine 300 Other: Voiding Method Urinal Urinal Incontinent Incontinent # Voids 2 2 # Bowel Movements 4 - Exam Head normocephalic Neck supple Lungs expiratory wheezing throughout Heart regular rate and rhythm S1-S2, no rub or gallop Abdomen is soft nontender nondistended positive bowel sounds no hepatosplenomegaly Extremities no edema Neuro reveals no gross focal deficit. - Labs CBC & Chem 7: 02/01/18 09:18 02/01/18 09:18 Labs: Abnormal Lab Results - Last 24 Hours (Table) 01/31/18 01/31/18 01/31/18 Range/Units 10:55 10:55 10:55 RBC 3.31 L (4.30-5.90) m/uL Hgb 11.1 L (13.0-17.5) gm/dL Hct 35.9 L (39.0-53.0) % MCV 108.5 H D (80.0-100.0) fL MCHC 30.8 L (31.0-37.0) g/dL RDW 18.5 H (11.5-15.5) % ESR 61 H (0-15) mm/hr Sodium 136 L (137-145) mmol/L Potassium (3.5-5.1) mmol/L Chloride (98-107) mmol/L BUN 5 L (9-20) mg/dL Creatinine 0.65 L (0.66-1.25) mg/dL Calcium 7.8 L (8.4-10.2) mg/dL AST 14 L (17-59) U/L ALT 20 L (21-72) U/L Alkaline Phosphatase 161 H (38-126) U/L C-Reactive Protein (<10.0) mg/L Total Protein 5.3 L (6.3-8.2) g/dL Albumin 2.2 L (3.5-5.0) g/dL 01/31/18 02/01/18 02/01/18 Range/Units 10:55 09:18 09:18 RBC 3.12 L (4.30-5.90) m/uL Hgb 10.6 L (13.0-17.5) gm/dL Hct 33.7 L (39.0-53.0) % MCV 108.0 H (80.0-100.0) fL MCHC (31.0-37.0) g/dL RDW 18.3 H (11.5-15.5) % ESR (0-15) mm/hr Sodium (137-145) mmol/L Potassium 5.3 H (3.5-5.1) mmol/L Chloride 112 H (98-107) mmol/L BUN 7 L (9-20) mg/dL Creatinine 0.65 L (0.66-1.25) mg/dL Calcium 7.7 L (8.4-10.2) mg/dL AST (17-59) U/L ALT (21-72) U/L Alkaline Phosphatase (38-126) U/L C-Reactive Protein 89.2 H (<10.0) mg/L Total Protein 4.8 L (6.3-8.2) g/dL Albumin 2.0 L (3.5-5.0) g/dL Assessment and Plan Assessment: #1 episodes of nausea and vomiting and diarrhea, likely related to gastroenteritis cause is unclear viral versus alcohol-induced, patient counseled in length in regards to alcohol cessation, at this time he is maintained on Pepcid and Protonix will continue, gastroenterology consult was requested, abdomen x-ray, abdomen ultrasound, amylase lipase, AST and a LT are old normal, alkaline phosphatase is elevated at 263. Per GI services, nausea, vomiting and diarrhea. Acute onset likely secondary to gastroenteritis and will consider endoscopic evaluation and additional testing based on his course. #2 severe hypokalemia with potassium of 2.7 corrected #3 underlying history of daily alcohol use patient was counseled in length in regards to stopping alcohol use, today patient has evidence of delirium tremens he is maintained on IV Ativan and IV fluid and IV thiamine will continue to monitor closely #4 tobacco abuse patient was counseled in length in regard to smoking cessation counseling more than 5 minutes #5 recent history of DVT and pulmonary embolism maintained on Xarelto continue #6 increase left knee swelling x-rays any completed showing joint effusion. Postop changes. Dr. Laird per orthopedic service is consulted. Orthopedic service is recommending AURELIO hose with compressive Thor wrap and ice. #7 increased shortness of breath with wheezing. Per nursing staff patient does wear 2 L at home. Two-view chest x-ray has been ordered. Dr. Hernandez per pulmonary services consulted. #8 increased confusion. Patient remains on alcohol withdrawal protocol. Head CT has been ordered along with ammonia level. #9 Low grade elevated temperatures. Blood, urine and sputum cultures ordered. Physical therapy and social work has been consulted. Patient states he lives alone. Per nursing staff patient is currently a 2 person assist DVT prophylaxis Xarelto. GI prophylaxis Pepcid I performed an examination of the patient and discussed their management with the Nurse Practitioner. I have reviewed the Nurse Practitioner's notes and agree with the documented findings and plan of care
[2018-02-01] MEDS: HYDROcodone/APAP 5-325MG 1 EACH TAB PO PRN (10:49)
[2018-02-01] MEDS ORDERED: FUROSEMIDE 10 MG/ML 4 ML VIAL IV STA (10:58)
[2018-02-01] MEDS: methylPREDNISolone SOD SUCCI 125 MG/2 ML VIAL IV SCH ×3 (12:24→23:50)
[2018-02-01] MEDS: THIAMINE 100 MG TAB PO SCH ×3 (12:25→22:11)
--- NOTE | 2018-02-01 12:57 | P.CNPUL ---
History of Present Illness Consult date: 02/01/18 Reason for consult: dyspnea History of present illness: 58-year-old male patient known to me from previous admissions and the patient is known to have COPD and chronic alcoholism and a recent hospitalization for DVT and massive pulmonary embolism for which the patient was placed on anticoagulation. The patient was readmitted to the hospital on 01/28/2018 because of complaints of nausea vomiting and diarrhea of 36 hours duration prior to his admission to the hospital. He denied having any abdominal pain. He apparently had 20 episodes of emesis prior to his hospital admission. He also had few episodes of diarrhea. He denied having any hematemesis. No melena. No hematochezia. The patient subsequently started having episodes of confusion during this current hospital stay. He had evidence of early delirium tremens. He was placed on the CIWA protocol. He was receiving Ativan every few hours and he was also receiving IV fluids. Subsequently he continued to be confused and continued to have symptoms of alcohol withdrawal. The protocol was continued. The patient denied having any chest pain or shortness of breath. His nausea vomiting and diarrhea had subsided. Subsequently the patient had a fall and orthopedic surgery was consulted regarding the left knee swelling. Noted the patient is also on anticoagulation. No hemarthrosis was noted. I was asked to evaluate this patient because of worsening shortness of breath. I came and found the patient a mild degree of respiratory distress even at rest. He was actively bronchospastic and wheezy. He denied having any chest pain. No pleurisy. No hemoptysis. No reported history of aspiration per nursing staff. A immediate chest x-ray was done. The patient was given a dose of Lasix 40 mg 9 that he was receiving IV fluids at the order of 100 mL an hour. He was started on IV Solu-Medrol. Ammonia level was sent. He did communicate with me and he did not seem to be agitated or confused at the time of my evaluation this morning. Note that this patient is a chronic alcoholic. The patient admits to drinking approximately fifth of alcohol on a daily basis. He also has history of respiratory failure due to pneumonia, COPD, seizure disorder, acid reflux, osteoarthritis, diverticular disease, upper GI bleed and history of pulmonary embolism currently on anticoagulation with Xarelto. Note that he has been also involved in delirium tremens in the past. Review of Systems Constitutional: Reports weakness, Denies chills, Denies fever Eyes: denies blurred vision, denies pain Ears, nose, mouth and throat: Denies headache, Denies sore throat Cardiovascular: Reports decreased exercise tolerance, Reports dyspnea on exertion, Reports edema, Reports leg edema, Denies chest pain, Denies shortness of breath Respiratory: Reports dyspnea, Reports home oxygen, Reports pain on inspiration, Reports respiratory infections, Denies cough, has increased bronchospasm and wheezing. Gastrointestinal: Reports bloating, Reports dyspepsia, Reports indigestion, Denies abdominal pain, he was having excessive nausea and emesis and diarrhea that recovered and subsided since admission. Musculoskeletal: Denies myalgias Integumentary: Denies pruritus, Denies rash Neurological: Reports gait dysfunction, Reports lack of coordination, Denies numbness, has chronic weakness and ataxia and loss and coordination is at the high risk of falls. Psychiatric: Denies anxiety, Denies depression Endocrine: fatigue, Denies weight change Past Medical History Past Medical History: GERD/Reflux, Osteoarthritis (OA), Seizure Disorder, Syncope Additional Past Medical History / Comment(s): Alcoholism, recent hospitalization for bilateral pulmonary embolism with clot occluding the left pulmonary artery and evidence of right ventricular strain pattern maintained on anticoagulation, COPD, chronic hypoxic respiratory failure, FEV1 of 51% of predicted with chronic hypoxic respiratory failure, chronic smoker carries more than on the PACU smoking history, alcoholism, history of delirium tremens, history of recurrent falls, history of rib fractures related to falls, GERD, diverticulosis, seizure disorder, osteoarthritis, history of small bowel obstruction secondary to incarcerated right inguinal hernia, History of Any Multi-Drug Resistant Organisms: None Reported Past Surgical History: Appendectomy, Heart Catheterization, Hernia Repair, Joint Replacement, Orthopedic Surgery, Tonsillectomy Additional Past Surgical History / Comment(s): Colonoscopies and polypectomies, 10/21/15 normal cardiac cath, multiple inguinal hernia surg., bilateral knee arthroscopies and pt states bilateral knee arthroplasties. Past Anesthesia/Blood Transfusion Reactions: No Reported Reaction Past Psychological History: Anxiety, Depression Smoking Status: Current every day smoker Past Alcohol Use History: Daily Past Drug Use History: None Reported - Past Family History Father Family Medical History: Coronary Artery Disease (CAD), Myocardial Infarction (CO ) Additional Family Medical History / Comment(s): Father of a CO at the age of 73 yrs. Mother Family Medical History: Cancer Additional Family Medical History / Comment(s): Mother had breast cancer. She is 81 yrs old and now healthy. Medications and Allergies Home Medications Medication Instructions Recorded Confirmed Type Menthol [Biofreeze] 1 applic TOPICAL DAILY PRN 12/01/17 01/28/18 History Potassium Chloride ER [K-Dur 20] 20 meq PO BID 12/01/17 01/28/18 History busPIRone HCl [Buspar] 10 mg PO BID PRN 12/01/17 01/28/18 History Acetaminophen Tab [Tylenol Tab] 650 mg PO Q6H PRN 01/28/18 01/28/18 History Albuterol Nebulized [Ventolin 2.5 mg INHALATION RT-Q4H 01/28/18 01/28/18 History Nebulized] Amino Acids/Protein Hydrolys 30 ml PO DAILY 01/28/18 01/28/18 History [Pro-Stat Supplement] Aspercreme W/ Lidocain Cream 4 1 applic TOPICAL Q8H PRN 01/28/18 01/28/18 History Joslyn-[place] Susp 200-200-20/5ml 30 ml PO Q6H PRN 01/28/18 01/28/18 History Hydrocodone/Acetaminophen [[place] 1 tab PO Q8H PRN 01/28/18 01/28/18 History 5-325] Kaopectate Suspensi 202mg/15ml 404 mg PO Q4H PRN 01/28/18 01/28/18 History Magnesium 400 mg PO BID 01/28/18 01/28/18 History Melatonin 3 mg PO HS PRN 01/28/18 01/28/18 History Omeprazole 20 mg PO DAILY 01/28/18 01/28/18 History Promethazine [Phenergan] 12.5 mg PO Q8HR PRN 01/28/18 01/28/18 History Rivaroxaban [Xarelto] 20 mg PO HS 01/28/18 01/28/18 History Thiamine HCl [Vitamin B-1] 100 mg PO HS 01/28/18 01/28/18 History Allergies Allergy/AdvReac Type Severity Reaction Status Date / Time tramadol AdvReac Mild Itching Verified 01/28/18 16:08 Physical Exam Vitals: Vital Signs Temp Pulse Pulse Pulse Resp BP Pulse Ox 02/01/18 08:44 102 H 02/01/18 08:30 104 H 22 95 02/01/18 07:00 99.5 F 104 H 17 118/84 93 L 01/31/18 23:00 99.7 F H 104 H 24 128/87 93 L 01/31/18 21:50 90 01/31/18 21:38 88 01/31/18 16:12 90 01/31/18 16:02 94 95 01/31/18 16:00 107 H 102 H 18 01/31/18 13:38 97.5 F L 102 H 18 107/74 94 L Intake and Output 01/31/18 02/01/18 02/01/18 22:59 06:59 14:59 Output Total 150 300 Balance -150 -300 Output: Urine 150 300 Other: Voiding Method Urinal Incontinent # Voids 2 2 # Bowel Movements 4 Weight 75.1 kg GENERAL EXAM: Alert, pleasant 57-year-old white male, comfortable in mild respiratory distress. Currently on 2 L per nasal cannula with O2 sat at 93%. HEAD: Normocephalic/atraumatic. EYES: Normal reaction of pupils, equal size. Conjunctiva pink, sclera white. NOSE: Clear with pink turbinates. THROAT: No erythema or exudates. NECK: No masses, no JVD, no thyroid enlargement, no adenopathy. CHEST: No chest wall deformity. Symmetrical expansion. LUNGS: Equal air entry with no crackles, rhonchi or dullness. Overall diminished breath sounds bilaterally and the patient is diffuse expiratory wheezes throughout the lung jordan bilaterally and there is prolongation of expiratory phase of breathing. CVS: Regular rate and rhythm, normal S1 and S2, no gallops, no murmurs, no rubs ABDOMEN: Soft, nontender, slightly distended. No hepatosplenomegaly, normal bowel sounds, no guarding or rigidity. EXTREMITIES: No clubbing, no edema, no cyanosis, 2+ pulses and upper and lower extremities. MUSCULOSKELETAL: Muscle strength is weak and tone normal. There is a healed left knee scar, left leg is slightly swollen, and tender to palpation, and there is evidence of chronic venous stasis discoloration on bilateral lower extremities,no swelling in the right leg. Bilateral knees have limited flexion , particularly in the left knee. The patient had a trauma and currently has a icepack and the left knee is a bit swollen compared to the right and appropriate dressing is applied. SPINE: No scoliosis or deformity SKIN: No rashes CENTRAL NERVOUS SYSTEM: Alert and oriented -2. No focal deficits, tone is normal in all 4 extremities. PSYCHIATRIC: Alert and oriented -2. Patient is a poor historian, and his recollection of events is in poor chronological order Results - Laboratory Findings CBC and BMP: 02/01/18 09:18 02/01/18 09:18 Abnormal lab findings: Abnormal Labs 01/28/18 01/28/18 01/28/18 13:50 13:50 22:06 WBC 14.2 H RBC 3.97 L Hgb 12.7 L Hct MCV 103.9 H MCHC 30.9 L RDW 18.5 H Plt Count 527 H Neutrophils # 11.3 H ESR Sodium 135 L Potassium 2.7 L* 3.4 L Chloride 84 L Carbon Dioxide 42 H* BUN 5 L Creatinine Glucose 115 H Calcium 7.9 L AST 14 L ALT 16 L Alkaline Phosphatase 263 H C-Reactive Protein Total Protein 5.9 L Albumin 2.6 L 01/29/18 01/30/18 01/30/18 06:18 07:51 07:51 WBC RBC 3.29 L Hgb 10.8 L Hct 34.0 L MCV 103.2 H MCHC RDW 18.2 H Plt Count Neutrophils # ESR Sodium 136 L 136 L Potassium Chloride 97 L Carbon Dioxide 33 H BUN 6 L 5 L Creatinine 0.63 L 0.63 L Glucose 111 H Calcium 7.4 L 7.7 L AST ALT Alkaline Phosphatase 173 H C-Reactive Protein Total Protein 5.3 L Albumin 2.3 L 01/31/18 01/31/18 01/31/18 10:55 10:55 10:55 WBC RBC 3.31 L Hgb 11.1 L Hct 35.9 L MCV 108.5 H D MCHC 30.8 L RDW 18.5 H Plt Count Neutrophils # ESR 61 H Sodium 136 L Potassium Chloride Carbon Dioxide BUN 5 L Creatinine 0.65 L Glucose Calcium 7.8 L AST 14 L ALT 20 L Alkaline Phosphatase 161 H C-Reactive Protein Total Protein 5.3 L Albumin 2.2 L 01/31/18 02/01/18 02/01/18 10:55 09:18 09:18 WBC RBC 3.12 L Hgb 10.6 L Hct 33.7 L MCV 108.0 H MCHC RDW 18.3 H Plt Count Neutrophils # ESR Sodium Potassium 5.3 H Chloride 112 H Carbon Dioxide BUN 7 L Creatinine 0.65 L Glucose Calcium 7.7 L AST ALT Alkaline Phosphatase C-Reactive Protein 89.2 H Total Protein 4.8 L Albumin 2.0 L Assessment and Plan Plan: Assessment 1 acute shortness of breath, currently under investigation. Possibly an acute COPD exacerbation as the patient has known history of COPD and is currently acutely bronchospastic and wheezy. Rule out aspiration. Rule out pulmonary edema as the patient has been aggressively resuscitated with IV fluids. Awaiting chest x-ray. Meanwhile the patient was started on bronchodilators and systemic steroids. Aspiration precautions. Further, this is to follow based on x-ray findings. The patient was given a dose of Lasix meanwhile 40 mg IV push. Patient is also on long-term anticoagulation regarding massive bilateral pulmonary embolism 2 recent hospitalization for large bilateral pulmonary embolism with rapid ventricular strain pattern currently on anticoagulation 3 COPD with chronic hypoxic history failure, baseline FEV1 is 51% of predicted 4 chronic alcoholism 5 delirium tremens currently well treated 6 nausea and emesis and diarrhea, subsided 7 recurrent falls 8 rib fractures, history of 9 seizure disorder probably alcoholic back in 2010 10 diverticulosis 11 acid reflux 12 debility seconds above-mentioned comorbidities 13 Left knee effusion, secondary to trauma him a or sores on the case. No signs of any acute infection. The joint is not hot or red. There is effusion however and high AURELIO hose and compression Thor wraps were applied. Plan stat chest x-ray. Give 40 of Lasix IV push. Continue with IV fluids. Continue Xarelto. Add IV Solu Medrol. Watch for signs of delirium tremens. Aspiration precautions. We'll continue to follow.
--- NOTE | 2018-02-01 13:14 | CT ---
EXAMINATION TYPE: CT brain wo con DATE OF EXAM: 02/01/2018 HISTORY: Patient appears lethargic and weakness, confusion CT DLP: 1040.7 mGycm. Automated Exposure Control for Dose Reduction was Utilized. TECHNIQUE: CT scan of the head is performed without contrast. COMPARISON: CT brain July 18, 2016. FINDINGS: There is no acute intracranial hemorrhage or midline shift identified. There is diffuse v entricular and sulcal prominence consistent with diffuse age-related cerebral atrophy. Degree of vent ricular prominence is slightly more prominent than degree of sulcal effacement and a normal pressure hydrocephalus is not excluded though there is no significant change in size from prior CT. Third and fourth ventricle are stable and prominent. There is low-attenuation in the periventricular white margie er consistent with chronic small vessel ischemic change. The globes are intact and the visualized si nuses are clear. IMPRESSION: No acute intracranial hemorrhage or midline shift. There is mild to moderate diffuse ag e-related cerebral atrophy and mild chronic small vessel ischemic change with [id number] hydroc ephalus all redemonstrated. No significant interval change.
--- NOTE | 2018-02-01 13:47 | XR ---
EXAMINATION TYPE: XR chest 2V DATE OF EXAM: 02/01/2018 COMPARISON: Prior chest x-ray 01/28/2018 HISTORY: Increased shortness of breath TECHNIQUE: Frontal and lateral views of the chest are obtained. FINDINGS: Interstitium is increased. There is blunting of the left costophrenic angle is on prior ex am. Heart size is stable. Pulmonary vascularity and apoorva not significantly changed. IMPRESSION: No acute cardiopulmonary process. Emphysema, interstitial lung disease.
[2018-02-01] MEDS: RIVAROXABAN 20 MG TAB PO SCH (17:34)
[2018-02-01] MEDS: LORazepam 2 MG/ML INJ IV PRN (17:34)
[2018-02-01 18:50] LABS: Appearance,Urine Clear (Clear); Bilirubin,Urine Negative (Negative); Blood,Urine Negative (Negative); Color,Urine Yellow; Glucose,Urine (UA) Negative (Negative); Ketones,Urine Negative (Negative); Leukocyte Esterase,Urine Negative (Negative); Nitrite,Urine Negative (Negative); Protein,Urine Negative (Negative); Specific Gravity,Urine 1.014 (1.001-1.035); Urobilinogen,Urine <2.0 mg/dL (<2.0)
[2018-02-02] MEDS: SODIUM CHLORIDE 0.9% 1,000 ML IV SCH (03:35)
[2018-02-02] MEDS: methylPREDNISolone SOD SUCCI 125 MG/2 ML VIAL IV SCH ×2 (06:27→11:37)
[2018-02-02] MEDS: ALBUTEROL NEBULIZED 2.5 MG/3 ML INHALATION SCH ×4 (07:56→20:13)
[2018-02-02] MEDS: MAGNESIUM OXIDE 400 MG TAB PO SCH ×2 (09:14→21:08)
[2018-02-02] MEDS: PANTOPRAZOLE 40 MG TABLET PO SCH (09:14)
[2018-02-02] MEDS: NICOTINE 21MG/24HR PATCH TRANSDERM SCH (09:14)
[2018-02-02 09:25] LABS: Anisocytosis Slight; Basophils % (A) 0 %; Eosinophils % (A) 0 %; HCT 36.7 % (39.0-53.0); HGB 11.5 gm/dL (13.0-17.5); Hypochromasia Moderate; Lymphocytes # (A) 1.1 k/uL (1.0-4.8); Lymphocytes % (A) 10 %; MCH 33.8 pg (25.0-35.0); MCHC 31.3 g/dL (31.0-37.0); MCV 108.2 fL (80.0-100.0); Macrocytosis Marked; Mean Platelet Volume 7.2; Monocytes # (A) 0.3 k/uL (0-1.0); Monocytes % (A) 3 %; Neutrophils # (A) 8.9 k/uL (1.3-7.7); Neutrophils % (A) 86 %; Platelet Count 523 k/uL (150-450); RDW 17.9 % (11.5-15.5); WBC 10.4 k/uL (3.8-10.6)
[2018-02-02] MEDS: busPIRone HCl 10 MG TAB PO PRN ×2 (09:41→21:08)
[2018-02-02 09:45] LABS: Polychromasia Present
[2018-02-02 09:46] LABS: Poikilocytosis (M) Present
[2018-02-02 10:32] LABS: ALT 10 U/L (21-72); AST 18 U/L (17-59); Albumin 2.6 g/dL (3.5-5.0); Alkaline Phosphatase 126 U/L (38-126); Anion Gap 6 mmol/L; Blood Urea Nitrogen 9 mg/dL (9-20); Calcium 8.3 mg/dL (8.4-10.2); Carbon Dioxide 21 mmol/L (22-30); Chloride 111 mmol/L (98-107); Glucose 167 mg/dL (74-99); Sodium 138 mmol/L (137-145); Total Bilirubin 0.5 mg/dL (0.2-1.3); Total Protein 6.1 g/dL (6.3-8.2)
--- NOTE | 2018-02-02 11:11 | P.PN ---
Subjective Progress Note Date: 02/02/18 This a 58-year-old male who presented to [facility] emergency room was a chief complaint of nausea vomiting and diarrhea for about 36 hours prior to presentation he denies any abdominal pain Patient states he has had about 20 episodes of vomiting since midnight. And he has had a few episodes of diarrhea. He denies hematemesis, melena or hematochezia. Patient had a diagnosis of DVT and pulmonary embolism 6-8 weeks ago he was transferred to [facility] and underwent a procedure on his lung it's not clear from his description whether this is a thrombectomy or TPA infusion will try to obtain records. Patient also has known history of left knee surgery 2 months ago. On 01/30/2018 patient today is confused having significant episodes of shaking, he has evidence of early delirium tremens, he is maintained on CIWA protocol and receiving IV Ativan every hour at this time he is also receiving IV fluid On 01/31/2018 patient remains confused and having symptoms of alcohol withdrawal. Patient is currently on the CIWA protocal. Social work and physical therapy services also consulted due to patient stating he lives on his own. Per nursing staff patient is a 2 person assist. Patient denies chest pain or shortness breath. patient denies nausea vomiting or diarrhea. Patient denies any burning or frequency. On 02/01/2018 patient remains confused displaying symptoms of alcohol withdrawal. Orthopedic services consulted for increased left knee swelling yesterday. Patient has increased shortness of breath. Chest x-ray ordered and pulmonary services have been consulted. Patient having low-grade temperatures. Blood and urine and sputum cultures have been ordered. Due to patient's increased confusion head CT and ammonia level ordered. At this time patient denies chest pain. Denies nausea vomiting or diarrhea. Denies any urinary burning or frequency. On 02/02/2018 patient is currently resting comfortably in bed. Breathing seems improved from yesterday. Patient is still slightly confused but improving. Remains on alcohol withdrawal protocol. At this time patient denies chest pain or shortness of breath. Denies nausea vomiting or diarrhea. Denies any urinary burning or frequency. Objective - Vital Signs Vital signs: Vital Signs Temp 97.0 F L 02/02/18 06:36 Pulse 89 02/02/18 08:05 Resp 24 02/02/18 08:55 BP 144/89 02/02/18 06:36 Pulse Ox 99 02/02/18 06:36 Intake & Output 02/01/18 02/02/18 02/02/18 18:59 06:59 18:59 Intake Total 200 Output Total 300 Balance -100 Intake: Oral 200 Output: Urine 300 Other: Voiding Method Urinal Urinal Urinal Diaper Diaper Diaper Incontinent Incontinent Incontinent # Voids 6 2 # Bowel Movements 1 1 1 - Exam Head normocephalic Neck supple Lungs expiratory wheezing throughout Heart regular rate and rhythm S1-S2, no rub or gallop Abdomen is soft nontender nondistended positive bowel sounds no hepatosplenomegaly Extremities no edema Neuro reveals no gross focal deficit. - Labs CBC & Chem 7: 02/02/18 09:00 02/02/18 09:00 Labs: Abnormal Lab Results - Last 24 Hours (Table) 02/01/18 02/02/18 02/02/18 Range/Units : 09:00 09:00 RBC 3.12 L 3.40 L (4.30-5.90) m/uL Hgb 10.6 L 11.5 L (13.0-17.5) gm/dL Hct 33.7 L 36.7 L (39.0-53.0) % MCV 108.0 H 108.2 H (80.0-100.0) fL RDW 18.3 H 17.9 H (11.5-15.5) % Plt Count 523 H (150-450) k/uL Neutrophils # 8.9 H (1.3-7.7) k/uL Chloride 111 H (98-107) mmol/L Carbon Dioxide 21 L (22-30) mmol/L Creatinine 0.64 L (0.66-1.25) mg/dL Glucose 167 H (74-99) mg/dL Calcium 8.3 L (8.4-10.2) mg/dL ALT 10 L (21-72) U/L Total Protein 6.1 L (6.3-8.2) g/dL Albumin 2.6 L (3.5-5.0) g/dL Microbiology - Last 24 Hours (Table) 02/01/18 16:00 Gram Stain - Preliminary Sputum Sputum Culture - Preliminary 02/01/18 11:30 Urine Culture - Preliminary Urine,Clean Catch Assessment and Plan Assessment: #1 episodes of nausea and vomiting and diarrhea, likely related to gastroenteritis cause is unclear viral versus alcohol-induced, patient counseled in length in regards to alcohol cessation, at this time he is maintained on Pepcid and Protonix will continue, gastroenterology consult was requested, abdomen x-ray, abdomen ultrasound, amylase lipase, AST and a LT are old normal, alkaline phosphatase is elevated at 263. Per GI services, nausea, vomiting and diarrhea. Acute onset likely secondary to gastroenteritis and will consider endoscopic evaluation and additional testing based on his course. #2 severe hypokalemia with potassium of 2.7 corrected. Potassium now elevated 5.0. Continue to monitor closely #3 underlying history of daily alcohol use patient was counseled in length in regards to stopping alcohol use, today patient has evidence of delirium tremens he is maintained on IV Ativan and IV fluid and IV thiamine will continue to monitor closely #4 tobacco abuse patient was counseled in length in regard to smoking cessation counseling more than 5 minutes #5 recent history of DVT and pulmonary embolism maintained on Xarelto continue #6 increase left knee swelling x-rays any completed showing joint effusion. Postop changes. Dr. Laird per orthopedic service is consulted. Orthopedic service is recommending AURELIO hose with compressive Thor wrap and ice. #7 increased shortness of breath with wheezing. Per nursing staff patient does wear 2 L at home. Two-view chest x-ray completed showing no acute cardiopulmonary process. Emphysema. Interstitial lung disease. Patient received 1 time dose of 40 Lasix per pulmonary. Patient currently on Solu- Medrol [address] David lópez for pulmonary services. #8 increased confusion. Patient remains on alcohol withdrawal protocol. Head CT completed showing no acute intracranial hemorrhage or midline shift. There is mild to moderate diffuse age-related cerebral atrophy and mild chronic small vessel ischemic change with mild to moderate hydrocephalus all demonstrate. No significant interval change. Ammonia level less than 9. #9 Low grade elevated temperatures. Blood, urine and sputum cultures ordered. Physical therapy and social work has been consulted. Patient states he lives alone. Per nursing staff patient is currently a 2 person assist DVT prophylaxis Xarelto. GI prophylaxis Pepcid I performed an examination of the patient and discussed their management with the Nurse Practitioner. I have reviewed the Nurse Practitioner's notes and agree with the documented findings and plan of care
[2018-02-02] MEDS: HYDROcodone/APAP 5-325MG 1 EACH TAB PO PRN (11:36)
[2018-02-02] MEDS: THIAMINE 100 MG TAB PO SCH ×3 (11:37→21:08)
--- NOTE | 2018-02-02 11:56 | P.PN ---
Subjective Progress Note Date: 02/02/18 Principal diagnosis: nausea vomiting diarrhea No further episodes of nausea vomiting diarrhea. Requesting discharge. Alert oriented 3. Denies abdominal pain. Objective - Vital Signs Vital signs: Vital Signs Temp 97.0 F L 02/02/18 06:36 Pulse 92 02/02/18 11:48 Resp 24 02/02/18 08:55 BP 144/89 02/02/18 06:36 Pulse Ox 99 02/02/18 06:36 Intake & Output 02/01/18 02/02/18 02/02/18 18:59 06:59 18:59 Intake Total 200 Output Total 300 Balance -100 Intake: Oral 200 Output: Urine 300 Other: Voiding Method Urinal Urinal Urinal Diaper Diaper Diaper Incontinent Incontinent Incontinent # Voids 6 2 # Bowel Movements 1 1 1 - Exam General appearance: The patient is alert, oriented, in no acute distress. HET: Head is normocephalic and atraumatic. Pupils are equal and reactive. Oropharynx is clear without lesions. Neck: Supple without lymphadenopathy. Trachea midline. Heart: S1 S2. Regular rate and rhythm. Lungs: No crackles or wheezes are heard. Abdomen: Soft, nontender, nondistended with bowel sounds. No peritoneal signs. No palpable organomegaly or masses. Extremities: Normal skin color and turgor. No cyanosis, rash, ulceration, clubbing, or edema. Radial and pedal pulses are 2/4 bilaterally. Neurological: No focal deficits. Strength and sensation are grossly intact. - Labs CBC & Chem 7: 02/02/18 09:00 02/02/18 09:00 Labs: Abnormal Lab Results - Last 24 Hours (Table) 02/02/18 02/02/18 Range/Units 09: 09:00 RBC 3.40 L (4.30-5.90) m/uL Hgb 11.5 L (13.0-17.5) gm/dL Hct 36.7 L (39.0-53.0) % MCV 108.2 H (80.0-100.0) fL RDW 17.9 H (11.5-15.5) % Plt Count 523 H (150-450) k/uL Neutrophils # 8.9 H (1.3-7.7) k/uL Chloride 111 H (98-107) mmol/L Carbon Dioxide 21 L (22-30) mmol/L Creatinine 0.64 L (0.66-1.25) mg/dL Glucose 167 H (74-99) mg/dL Calcium 8.3 L (8.4-10.2) mg/dL ALT 10 L (21-72) U/L Total Protein 6.1 L (6.3-8.2) g/dL Albumin 2.6 L (3.5-5.0) g/dL Microbiology - Last 24 Hours (Table) 02/01/18 16:00 Gram Stain - Preliminary Sputum Sputum Culture - Preliminary 02/01/18 11:30 Urine Culture - Preliminary Urine,Clean Catch Assessment and Plan (1) Nausea and vomiting Narrative/Plan: may be secondary to acute viral gastroenteritis possible alcohol usage. Clinically improving. Current Visit: Yes Status: Acute Code(s): R11.2 - NAUSEA WITH VOMITING, UNSPECIFIED SNOMED Code(s): 23060765 (2) ETOH abuse Current Visit: Yes Status: Acute Code(s): F10.10 - ALCOHOL ABUSE, UNCOMPLICATED SNOMED Code(s): 78073509 (3) Alcohol withdrawal Narrative/Plan: Mentation improved. Current Visit: No Status: Acute Code(s): F10.239 - ALCOHOL DEPENDENCE WITH WITHDRAWAL, UNSPECIFIED SNOMED Code(s): 231325935 Plan: 1. Alcohol abstinence reinforced. Symptomatic supportive measures. Diet as tolerated. DC per medicine. We'll follow as needed. Assessment and plan of care discussed with Dr. Gale
--- NOTE | 2018-02-02 12:18 | XR ---
EXAMINATION TYPE: XR chest 1V portable DATE OF EXAM: 02/02/2018 COMPARISON: Prior chest x-ray 02/01/2018 HISTORY: Post diuresis, abnormal chest x-ray TECHNIQUE: Single frontal view of the chest is obtained. FINDINGS: There is no focal air space opacity, pleural effusion, or pneumothorax seen. Some minimal blunting the left costophrenic angle is stable. The cardiac silhouette size is within normal limits. The osseous structures are intact. IMPRESSION: No acute process.
--- NOTE | 2018-02-02 13:43 | P.PN ---
Subjective Progress Note Date: 02/02/18 Principal diagnosis: Acute shortness of breath, likely related to pulmonary edema secondary to aggressive fluid resuscitation. 58-year-old male patient known to me from previous admissions and the patient is known to have COPD and chronic alcoholism and a recent hospitalization for DVT and massive pulmonary embolism for which the patient was placed on anticoagulation. The patient was readmitted to the hospital on 01/28/2018 because of complaints of nausea vomiting and diarrhea of 36 hours duration prior to his admission to the hospital. He denied having any abdominal pain. He apparently had 20 episodes of emesis prior to his hospital admission. He also had few episodes of diarrhea. He denied having any hematemesis. No melena. No hematochezia. The patient subsequently started having episodes of confusion during this current hospital stay. He had evidence of early delirium tremens. He was placed on the CIWA protocol. He was receiving Ativan every few hours and he was also receiving IV fluids. Subsequently he continued to be confused and continued to have symptoms of alcohol withdrawal. The protocol was continued. The patient denied having any chest pain or shortness of breath. His nausea vomiting and diarrhea had subsided. Subsequently the patient had a fall and orthopedic surgery was consulted regarding the left knee swelling. Noted the patient is also on anticoagulation. No hemarthrosis was noted. I was asked to evaluate this patient because of worsening shortness of breath. I came and found the patient a mild degree of respiratory distress even at rest. He was actively bronchospastic and wheezy. He denied having any chest pain. No pleurisy. No hemoptysis. No reported history of aspiration per nursing staff. A immediate chest x-ray was done. The patient was given a dose of Lasix 40 mg 9 that he was receiving IV fluids at the order of 100 mL an hour. He was started on IV Solu-Medrol. Ammonia level was sent. He did communicate with me and he did not seem to be agitated or confused at the time of my evaluation this morning. Note that this patient is a chronic alcoholic. The patient admits to drinking approximately fifth of alcohol on a daily basis. He also has history of respiratory failure due to pneumonia, COPD, seizure disorder, acid reflux, osteoarthritis, diverticular disease, upper GI bleed and history of pulmonary embolism currently on anticoagulation with Xarelto. Note that he has been also involved in delirium tremens in the past. On 02/02/2018 patient seen in follow-up on medical surgical floor. Yesterday we gave him a dose of IV Lasix, he diuresed, and on today's exam she verbalizes feeling easier, denies any chest pain. On 2 L per nasal cannula his pulse ox is 99%, patient is afebrile. He states his edema in bilateral lower extremities is improving as well. Yesterday's chest x-ray showed emphysema, and interstitial lung disease. Blunting of the left costophrenic angle. Today' s chest x-ray shows no acute process. And minimal blunting of the left costophrenic angle which is stable. Denies any abdominal pain. No nausea, no vomiting, no diarrhea. Today's blood work shows WBC of 10.4, hemoglobin of 11.5 , sodium is 138, potassium is 5.0, chloride is 111, CO2 is 21, renal profile is within normal limits. Objective - Vital Signs Vital signs: Vital Signs Temp 97.0 F L 02/02/18 06:36 Pulse 92 02/02/18 11:48 Resp 24 02/02/18 08:55 BP 144/89 02/02/18 06:36 Pulse Ox 99 02/02/18 06:36 Intake & Output 02/01/18 02/02/18 02/02/18 18:59 06:59 18:59 Intake Total 200 Output Total 300 Balance -100 Intake: Oral 200 Output: Urine 300 Other: Voiding Method Urinal Urinal Urinal Diaper Diaper Diaper Incontinent Incontinent Incontinent # Voids 6 2 # Bowel Movements 1 1 1 - Exam GENERAL EXAM: Alert, pleasant 57-year-old white male, comfortable in mild respiratory distress. Currently on 2 L per nasal cannula with O2 sat at 93%. HEAD: Normocephalic/atraumatic. EYES: Normal reaction of pupils, equal size. Conjunctiva pink, sclera white. NOSE: Clear with pink turbinates. THROAT: No erythema or exudates. NECK: No masses, no JVD, no thyroid enlargement, no adenopathy. CHEST: No chest wall deformity. Symmetrical expansion. LUNGS: Equal air entry with no crackles, rhonchi or dullness. Overall diminished breath sounds bilaterally with bibasilar crackles, no wheezing on today's exam. CVS: Regular rate and rhythm, normal S1 and S2, no gallops, no murmurs, no rubs ABDOMEN: Soft, nontender, slightly distended. No hepatosplenomegaly, normal bowel sounds, no guarding or rigidity. EXTREMITIES: No clubbing, no edema, no cyanosis, 2+ pulses and upper and lower extremities. MUSCULOSKELETAL: Muscle strength is weak and tone normal. There is a healed left knee scar, left leg is slightly swollen, and tender to palpation, and there is evidence of chronic venous stasis discoloration on bilateral lower extremities,no swelling in the right leg. Bilateral knees have limited flexion , particularly in the left knee. The patient had a trauma and currently has a icepack and the left knee is a bit swollen compared to the right and appropriate dressing is applied. SPINE: No scoliosis or deformity SKIN: No rashes CENTRAL NERVOUS SYSTEM: Alert and oriented -2. No focal deficits, tone is normal in all 4 extremities. PSYCHIATRIC: Alert and oriented -2. Patient is a poor historian, and his recollection of events is in poor chronological order - Labs CBC & Chem 7: 02/02/18 09:00 02/02/18 09:00 Labs: Abnormal Lab Results - Last 24 Hours (Table) 02/02/18 02/02/18 Range/Units 09:00 09:00 RBC 3.40 L (4.30-5.90) m/uL Hgb 11.5 L (13.0-17.5) gm/dL Hct 36.7 L (39.0-53.0) % MCV 108.2 H (80.0-100.0) fL RDW 17.9 H (11.5-15.5) % Plt Count 523 H (150-450) k/uL Neutrophils # 8.9 H (1.3-7.7) k/uL Chloride 111 H (98-107) mmol/L Carbon Dioxide 21 L (22-30) mmol/L Creatinine 0.64 L (0.66-1.25) mg/dL Glucose 167 H (74-99) mg/dL Calcium 8.3 L (8.4-10.2) mg/dL ALT 10 L (21-72) U/L Total Protein 6.1 L (6.3-8.2) g/dL Albumin 2.6 L (3.5-5.0) g/dL Microbiology - Last 24 Hours (Table) 02/01/18 10:50 Blood Culture - Preliminary Blood No Growth after 24 hours 02/01/18 16:00 Gram Stain - Preliminary Sputum Sputum Culture - Preliminary 02/01/18 11:30 Urine Culture - Preliminary Urine,Clean Catch Assessment and Plan Plan: 1 acute shortness of breath, currently under investigation. Possibly an acute COPD exacerbation as the patient has known history of COPD and is currently acutely bronchospastic and wheezy. Rule out aspiration. Rule out pulmonary edema as the patient has been aggressively resuscitated with IV fluids. Awaiting chest x-ray. Meanwhile the patient was started on bronchodilators and systemic steroids. Aspiration precautions. Further, this is to follow based on x-ray findings. The patient was given a dose of Lasix meanwhile 40 mg IV push. Patient is also on long-term anticoagulation regarding massive bilateral pulmonary embolism 2 recent hospitalization for large bilateral pulmonary embolism with rapid ventricular strain pattern currently on anticoagulation 3 COPD with chronic hypoxic history failure, baseline FEV1 is 51% of predicted 4 chronic alcoholism 5 delirium tremens currently well treated 6 nausea and emesis and diarrhea, subsided 7 recurrent falls 8 rib fractures, history of 9 seizure disorder probably alcoholic back in 2010 10 diverticulosis 11 acid reflux 12 debility seconds above-mentioned comorbidities 13 Left knee effusion, secondary to trauma him a or sores on the case. No signs of any acute infection. The joint is not hot or red. There is effusion however and high AURELIO hose and compression Thor wraps were applied. Plan: Patient diuresed, and his breathing has improved. Today's chest x-ray has been reviewed, shows no acute process. Bilateral lower extremity has improved as well, no wheezing and today's exam. No leucocytosis, patient is afebrile. We' ll decrease the Solu-Medrol down to 40 mg every 8 hours. Continue the nebulized bronchodilators. I performed a history & physical examination of the patient and discussed their management with my nurse practitioner, Yennifer Irby. I reviewed the nurse practitioner's note and agree with the documented findings and plan of care. Lung sounds are positive for bibasilar crackles. The findings and the impression was discussed with the patient. I attest to the documentation by the nurse practitioner. Time with Patient: Less than 30
[2018-02-02] MEDS: methylPREDNISolone SOD SUCCI 40 MG/ML 1 ML VIAL IV SCH (17:08)
[2018-02-02] MEDS: RIVAROXABAN 20 MG TAB PO SCH (17:08)
[2018-02-03] MEDS: SODIUM CHLORIDE 0.9% 1,000 ML IV SCH (00:56)
[2018-02-03] MEDS: methylPREDNISolone SOD SUCCI 40 MG/ML 1 ML VIAL IV SCH ×3 (00:56→15:23)
--- NOTE | 2018-02-03 02:23 | P.CNNES ---
History of Present Illness Consult date: 02/02/18 Reason for Consult: Patient being evaluated for possible hydrocephalus. History of Present Illness: This patient is a 58-year-old right-handed white male who was brought to the emergency room at [facility] on 01/28/2018 for evaluation of shortness of breath and symptoms of pulmonary edema. The patient has a known history of severe COPD and chronic alcoholism. He was recently admitted to hospital for treatment of DVT and massive pulmonary embolism for which she was placed on anticoagulation. The patient is currently taking Xarelto for long- term anticoagulation. Patient states that he does have a history of alcohol is him in the past. He has been admitted to [facility] at least twice over the last many years. He has been trying to stop his drinking altogether but this has been very difficult. The patient was also complaining of increased nausea vomiting along with diarrhea for the past 36 hours. He denies any abdominal pain. He has had multiple episodes of emesis since admission to hospital. The patient is being closely monitored for his known history of alcohol is him. He was placed on the CIWA protocol for delirium tremens. Seems to be tolerating this protocol quite well. The patient does have severe COPD and emphysema. He has been receiving breathing treatments 4 times a day during this stay. He is also been treated with IV Lasix for fluid retention. The patient was very lethargic yesterday and was hard to arouse. He was sent for a computed tomography scan of the brain on 03/2018. This CAT scan revealed no acute intracranial hemorrhage or midline shift. There was mild to moderate diffuse age-related atrophy and chronic small vessel ischemic changes with mild to moderate hydrocephalus are all redemonstrated. This was compared to his previous CAT scan of the brain that was done on 07/18/2016 which came back negative for any acute findings. We did review the actual CAT scan films today. There is some degree of ventriculomegaly but not out of proportion as compared to the cortical atrophy which was also noted. The ventricles are not ballooning out to raises suspicion of severe NPH. The patient also clinically does not demonstrate the classical triad for this condition as well. This classical triad for NPH would include dementia, gait ataxia, and urinary incontinence. As noted this patient does not demonstrate any of the classical clinical features. We have recommended the patient consider close monitoring for these classical symptoms. At this time his neurological examination is not at all suggesting underlying NPH for this patient. The patient may benefit from a therapeutic lumbar puncture to see if there is any significant improvement for him. This is also quite doubtful to show any specific change. It is still unclear what causes obtundation yesterday. We will continue close neurological follow-up with the patient during this examination. Review of Systems Constitutional: Denies chills, Denies fever Eyes: denies blurred vision, denies pain Cardiovascular: Denies chest pain, Denies shortness of breath Respiratory: Denies cough Gastrointestinal: Denies abdominal pain, Denies diarrhea, Denies nausea, Denies vomiting Integumentary: Denies pruritus, Denies rash Neurological: Denies numbness, Denies weakness Psychiatric: Denies anxiety, Denies depression Endocrine: Denies fatigue, Denies weight change Past Medical History Past Medical History: GERD/Reflux, Osteoarthritis (OA), Seizure Disorder, Syncope Additional Past Medical History / Comment(s): Alcoholism, recent hospitalization for bilateral pulmonary embolism with clot occluding the left pulmonary artery and evidence of right ventricular strain pattern maintained on anticoagulation, COPD, chronic hypoxic respiratory failure, FEV1 of 51% of predicted with chronic hypoxic respiratory failure, chronic smoker carries more than on the PACU smoking history, alcoholism, history of delirium tremens, history of recurrent falls, history of rib fractures related to falls, GERD, diverticulosis, seizure disorder, osteoarthritis, history of small bowel obstruction secondary to incarcerated right inguinal hernia, History of Any Multi-Drug Resistant Organisms: None Reported Past Surgical History: Appendectomy, Heart Catheterization, Hernia Repair, Joint Replacement, Orthopedic Surgery, Tonsillectomy Additional Past Surgical History / Comment(s): Colonoscopies and polypectomies, 10/21/15 normal cardiac cath, multiple inguinal hernia surg., bilateral knee arthroscopies and pt states bilateral knee arthroplasties. Past Anesthesia/Blood Transfusion Reactions: No Reported Reaction Past Psychological History: Anxiety, Depression Smoking Status: Current every day smoker Past Alcohol Use History: Daily Past Drug Use History: None Reported - Past Family History Father Family Medical History: Coronary Artery Disease (CAD), Myocardial Infarction (MA ) Additional Family Medical History / Comment(s): Father of a MA at the age of 73 yrs. Mother Family Medical History: Cancer Additional Family Medical History / Comment(s): Mother had breast cancer. She is 81 yrs old and now healthy. Medications and Allergies Home Medications Medication Instructions Recorded Confirmed Type Menthol [Biofreeze] 1 applic TOPICAL DAILY PRN 12/01/17 01/28/18 History Potassium Chloride ER [K-Dur 20] 20 meq PO BID 12/01/17 01/28/18 History busPIRone HCl [Buspar] 10 mg PO BID PRN 12/01/17 01/28/18 History Acetaminophen Tab [Tylenol Tab] 650 mg PO Q6H PRN 01/28/18 01/28/18 History Albuterol Nebulized [Ventolin 2.5 mg INHALATION RT-Q4H 01/28/18 01/28/18 History Nebulized] Amino Acids/Protein Hydrolys 30 ml PO DAILY 01/28/18 01/28/18 History [Pro-Stat Supplement] Aspercreme W/ Lidocain Cream 4 1 applic TOPICAL Q8H PRN 01/28/18 01/28/18 History Joslyn-Lanta Susp 200-200-20/5ml 30 ml PO Q6H PRN 01/28/18 01/28/18 History Hydrocodone/Acetaminophen [[place] 1 tab PO Q8H PRN 01/28/18 01/28/18 History 5-325] Kaopectate Suspensi 202mg/15ml 404 mg PO Q4H PRN 01/28/18 01/28/18 History Magnesium 400 mg PO BID 01/28/18 01/28/18 History Melatonin 3 mg PO HS PRN 01/28/18 01/28/18 History Omeprazole 20 mg PO DAILY 01/28/18 01/28/18 History Promethazine [Phenergan] 12.5 mg PO Q8HR PRN 01/28/18 01/28/18 History Rivaroxaban [Xarelto] 20 mg PO HS 01/28/18 01/28/18 History Thiamine HCl [Vitamin B-1] 100 mg PO HS 01/28/18 01/28/18 History Allergies Allergy/AdvReac Type Severity Reaction Status Date / Time tramadol AdvReac Mild Itching Verified 01/28/18 16:08 Physical Examination - Vital Signs Vital Signs: Vital Signs Temp Pulse Pulse Resp BP Pulse Ox 02/02/18 20:23 110 H 02/02/18 20:13 104 H 02/02/18 16:43 108 H 02/02/18 16:27 120 H 02/02/18 16:00 18 02/02/18 14:33 96.8 F L 121 H 18 112/73 96 02/02/18 11:48 92 02/02/18 11:40 90 02/02/18 08:55 24 02/02/18 08:05 89 02/02/18 07:56 88 02/02/18 06:36 97.0 F L 99 24 144/89 99 02/01/18 23:00 97.1 F L 93 16 132/91 95 Intake and Output 02/02/18 02/02/18 02/02/18 06:59 14:59 22:59 Other: Voiding Method Urinal Urinal Diaper Diaper Incontinent Incontinent # Voids 2 2 # Bowel Movements 1 1 - Constitutional General appearance: average body habitus, cooperative - EENT EENT: PERRL, mucous membranes moist - Respiratory Respiratory: lungs clear, normal breath sounds - Cardiovascular Cardiovascular: regular rate, normal S1, normal S2 Extremities: no peripheral edema bilaterally - Gastrointestinal Gastrointestinal: normoactive bowel sounds - Integumentary Integumentary: normal - Neurologic Speech examination: intact Sensorimotor examination: intact Detailed motor examination: full strength in all major muscle groups Detailed sensory examination: intact Reflex and gait examination: intact Reflexes: 1+: ankle, bicep, knee, tricep - Musculoskeletal Musculoskeletal: no pain - Psychiatric Psychiatric: mood/affect appropriate, cooperative Results - Laboratory Findings CBC and BMP: 02/02/18 09:00 02/02/18 09:00 Abnormal Lab Findings: Abnormal Labs 01/28/18 01/28/18 01/28/18 13:50 13:50 22:06 WBC 14.2 H RBC 3.97 L Hgb 12.7 L Hct MCV 103.9 H MCHC 30.9 L RDW 18.5 H Plt Count 527 H Neutrophils # 11.3 H ESR Sodium 135 L Potassium 2.7 L* 3.4 L Chloride 84 L Carbon Dioxide 42 H* BUN 5 L Creatinine Glucose 115 H Calcium 7.9 L AST 14 L ALT 16 L Alkaline Phosphatase 263 H C-Reactive Protein Total Protein 5.9 L Albumin 2.6 L 01/29/18 01/30/18 01/30/18 06:18 07:51 07:51 WBC RBC 3.29 L Hgb 10.8 L Hct 34.0 L MCV 103.2 H MCHC RDW 18.2 H Plt Count Neutrophils # ESR Sodium 136 L 136 L Potassium Chloride 97 L Carbon Dioxide 33 H BUN 6 L 5 L Creatinine 0.63 L 0.63 L Glucose 111 H Calcium 7.4 L 7.7 L AST ALT Alkaline Phosphatase 173 H C-Reactive Protein Total Protein 5.3 L Albumin 2.3 L 01/31/18 01/31/18 01/31/18 10:55 10:55 10:55 WBC RBC 3.31 L Hgb 11.1 L Hct 35.9 L MCV 108.5 H D MCHC 30.8 L RDW 18.5 H Plt Count Neutrophils # ESR 61 H Sodium 136 L Potassium Chloride Carbon Dioxide BUN 5 L Creatinine 0.65 L Glucose Calcium 7.8 L AST 14 L ALT 20 L Alkaline Phosphatase 161 H C-Reactive Protein Total Protein 5.3 L Albumin 2.2 L 01/31/18 02/01/18 02/01/18 10:55 09:18 09:18 WBC RBC 3.12 L Hgb 10.6 L Hct 33.7 L MCV 108.0 H MCHC RDW 18.3 H Plt Count Neutrophils # ESR Sodium Potassium 5.3 H Chloride 112 H Carbon Dioxide BUN 7 L Creatinine 0.65 L Glucose Calcium 7.7 L AST ALT Alkaline Phosphatase C-Reactive Protein 89.2 H Total Protein 4.8 L Albumin 2.0 L 02/02/18 02/02/18 09:00 09:00 WBC RBC 3.40 L Hgb 11.5 L Hct 36.7 L MCV 108.2 H MCHC RDW 17.9 H Plt Count 523 H Neutrophils # 8.9 H ESR Sodium Potassium Chloride 111 H Carbon Dioxide 21 L BUN Creatinine 0.64 L Glucose 167 H Calcium 8.3 L AST ALT 10 L Alkaline Phosphatase C-Reactive Protein Total Protein 6.1 L Albumin 2.6 L Assessment and Plan (1) Hydrocephalus Current Visit: Yes Status: Acute Code(s): G91.9 - HYDROCEPHALUS, UNSPECIFIED SNOMED Code(s): 066635548 (2) Alcohol withdrawal syndrome Current Visit: No Status: Acute Code(s): F10.239 - ALCOHOL DEPENDENCE WITH WITHDRAWAL, UNSPECIFIED SNOMED Code(s): 722237550 (3) Delirium tremens Current Visit: No Status: Acute Code(s): F10.231 - ALCOHOL DEPENDENCE WITH WITHDRAWAL DELIRIUM SNOMED Code(s): 0514849 (4) Syncope Current Visit: No Status: Acute Code(s): R55 - SYNCOPE AND COLLAPSE SNOMED Code(s): 538817041 Plan: This patient is a 58-year-old right-handed white male who was admitted to [facility] for treatment of shortness of breath and pulmonary edema. He suddenly became lethargic yesterday and was sent for a computed tomography scan of the brain. CAT scan of the brain revealed mild to moderate enlargement of the ventricles. There was concern for possibility of normal pressure hydrocephalus. The patient clinically is not manifesting symptoms to suggest underlying NPH. His CAT scan was compared to her previous CAT scan of the brain that was done on 07/18/2016 and there is been no significant interval change. Overall the patient seems to be relieved that there is no major findings at this time. We have recommended to consider reevaluation at [facility]. We would suggest social work to get involved if the patient so desires. The patient has no previous history of stroke. Once he is cross the line in terms of orthopedic requirements for no weightbearing or x-rays to be done we can wait until this happens in January. We have discussed all of these findings today in detail with the patient. His daughter was also at bedside and she was also updated on his overall condition. She is aware of his guarded condition due to the 2 areas of hemorrhage within the stroke. The patient has to be closely monitored for hemorrhagic transformation. The daughter is aware of his very guarded condition at this time due to his multiple complex medical issues. This patient 's overall prognosis at this time remains very guarded. We did recommend the patient to be maintained on his current anticoagulant. He is taking Xarelto at this time. We have advised the patient that should he develop worsening symptoms of the classical triad associated with NPH he may contact our office. We may also consider referring him to a specialty clinic in [place] if necessary. We have discussed all of these options today in detail with the patient. His overall prognosis at this time remains very guarded. Time with Patient: Greater than 30
[2018-02-03] MEDS: ALBUTEROL NEBULIZED 2.5 MG/3 ML INHALATION SCH ×4 (07:12→19:45)
[2018-02-03] MEDS: NICOTINE 21MG/24HR PATCH TRANSDERM SCH (07:18)
[2018-02-03] MEDS: HYDROcodone/APAP 5-325MG 1 EACH TAB PO PRN ×2 (07:18→17:40)
[2018-02-03] MEDS: PANTOPRAZOLE 40 MG TABLET PO SCH (07:18)
[2018-02-03] MEDS: MAGNESIUM OXIDE 400 MG TAB PO SCH ×2 (07:19→20:30)
[2018-02-03 09:33] LABS: Anisocytosis Slight; Basophils % (A) 0 %; Eosinophils # (A) 0.1 k/uL (0-0.7); Eosinophils % (A) 1 %; HCT 34.5 % (39.0-53.0); HGB 10.8 gm/dL (13.0-17.5); Hypochromasia Moderate; Lymphocytes # (A) 0.6 k/uL (1.0-4.8); Lymphocytes % (A) 5 %; MCH 33.6 pg (25.0-35.0); MCHC 31.3 g/dL (31.0-37.0); MCV 107.3 fL (80.0-100.0); Macrocytosis Marked; Mean Platelet Volume 6.9; Monocytes # (A) 0.4 k/uL (0-1.0); Monocytes % (A) 3 %; Neutrophils # (A) 11.6 k/uL (1.3-7.7); Neutrophils % (A) 91 %; Platelet Count 577 k/uL (150-450); RBC 3.22 m/uL (4.30-5.90); RDW 18.1 % (11.5-15.5); WBC 12.7 k/uL (3.8-10.6)
[2018-02-03 09:43] LABS: ALT 13 U/L (21-72); AST 18 U/L (17-59); Albumin 2.5 g/dL (3.5-5.0); Alkaline Phosphatase 104 U/L (38-126); Anion Gap 6 mmol/L; Blood Urea Nitrogen 12 mg/dL (9-20); Calcium 8.5 mg/dL (8.4-10.2); Carbon Dioxide 23 mmol/L (22-30); Chloride 111 mmol/L (98-107); Glucose 149 mg/dL (74-99); Potassium 4.1 mmol/L (3.5-5.1); Sodium 140 mmol/L (137-145); Total Bilirubin 0.3 mg/dL (0.2-1.3); Total Protein 5.8 g/dL (6.3-8.2)
[2018-02-03] MEDS: busPIRone HCl 10 MG TAB PO PRN ×2 (10:56→22:58)
--- NOTE | 2018-02-03 11:09 | P.PN ---
Subjective Progress Note Date: 02/03/18 This a 58-year-old male who presented to [facility] emergency room was a chief complaint of nausea vomiting and diarrhea for about 36 hours prior to presentation he denies any abdominal pain Patient states he has had about 20 episodes of vomiting since midnight. And he has had a few episodes of diarrhea. He denies hematemesis, melena or hematochezia. Patient had a diagnosis of DVT and pulmonary embolism 6-8 weeks ago he was transferred to [facility] and underwent a procedure on his lung it's not clear from his description whether this is a thrombectomy or TPA infusion will try to obtain records. Patient also has known history of left knee surgery 2 months ago. On 01/30/2018 patient today is confused having significant episodes of shaking, he has evidence of early delirium tremens, he is maintained on CIWA protocol and receiving IV Ativan every hour at this time he is also receiving IV fluid On 01/31/2018 patient remains confused and having symptoms of alcohol withdrawal. Patient is currently on the CIWA protocal. Social work and physical therapy services also consulted due to patient stating he lives on his own. Per nursing staff patient is a 2 person assist. Patient denies chest pain or shortness breath. patient denies nausea vomiting or diarrhea. Patient denies any burning or frequency. On 02/01/2018 patient remains confused displaying symptoms of alcohol withdrawal. Orthopedic services consulted for increased left knee swelling yesterday. Patient has increased shortness of breath. Chest x-ray ordered and pulmonary services have been consulted. Patient having low-grade temperatures. Blood and urine and sputum cultures have been ordered. Due to patient's increased confusion head CT and ammonia level ordered. At this time patient denies chest pain. Denies nausea vomiting or diarrhea. Denies any urinary burning or frequency. On 02/02/2018 patient is currently resting comfortably in bed. Breathing seems improved from yesterday. Patient is still slightly confused but improving. Remains on alcohol withdrawal protocol. At this time patient denies chest pain or shortness of breath. Denies nausea vomiting or diarrhea. Denies any urinary burning or frequency. On 02/03/2018 patient is currently resting comfortably in bed. Patient is alert and oriented 2. Patient denies chest pain or shortness of breath. Patient denies nausea vomiting or diarrhea. Patient denies any urinary burning or frequency Objective - Vital Signs Vital signs: Vital Signs Temp 97.0 F L 02/03/18 07:21 Pulse 102 H 02/03/18 07:22 Resp 18 02/03/18 07:21 BP 125/76 02/03/18 07:21 Pulse Ox 94 L 02/03/18 07:21 Intake & Output 02/02/18 02/03/18 02/03/18 18:59 06:59 18:59 Intake Total 750 Output Total 400 Balance 350 Intake: Oral 750 Output: Urine 400 Other: Voiding Method Urinal Urinal Urinal Diaper Diaper Diaper Incontinent Incontinent Incontinent # Voids 2 2 # Bowel Movements 1 1 - Exam Head normocephalic Neck supple Lungs expiratory wheezing throughout Heart regular rate and rhythm S1-S2, no rub or gallop Abdomen is soft nontender nondistended positive bowel sounds no hepatosplenomegaly Extremities no edema Neuro reveals no gross focal deficit. - Labs CBC & Chem 7: 02/03/18 09:01 02/03/18 09:01 Labs: Abnormal Lab Results - Last 24 Hours (Table) 02/03/18 02/03/18 Range/Units 09:01 09:01 WBC 12.7 H (3.8-10.6) k/uL RBC 3.22 L (4.30-5.90) m/uL Hgb 10.8 L (13.0-17.5) gm/dL Hct 34.5 L (39.0-53.0) % MCV 107.3 H (80.0-100.0) fL RDW 18.1 H (11.5-15.5) % Plt Count 577 H (150-450) k/uL Neutrophils # 11.6 H (1.3-7.7) k/uL Lymphocytes # 0.6 L (1.0-4.8) k/uL Chloride 111 H (98-107) mmol/L Creatinine 0.60 L (0.66-1.25) mg/dL Glucose 149 H (74-99) mg/dL ALT 13 L (21-72) U/L Total Protein 5.8 L (6.3-8.2) g/dL Albumin 2.5 L (3.5-5.0) g/dL Microbiology - Last 24 Hours (Table) 02/01/18 11:30 Urine Culture - Preliminary Urine,Clean Catch Gram Neg Bacilli 02/01/18 10:50 Blood Culture - Preliminary Blood No Growth after 24 hours 02/01/18 16:00 Gram Stain - Preliminary Sputum Sputum Culture - Preliminary Assessment and Plan Assessment: #1 episodes of nausea and vomiting and diarrhea, likely related to gastroenteritis cause is unclear viral versus alcohol-induced, patient counseled in length in regards to alcohol cessation, at this time he is maintained on Pepcid and Protonix will continue, gastroenterology consult was requested, abdomen x-ray, abdomen ultrasound, amylase lipase, AST and a LT are old normal, alkaline phosphatase is elevated at 263. Per GI services, nausea, vomiting and diarrhea. Acute onset likely secondary to gastroenteritis and will consider endoscopic evaluation and additional testing based on his course. #2 severe hypokalemia with potassium of 2.7 corrected. Potassium now elevated 5.0. Continue to monitor closely #3 underlying history of daily alcohol use patient was counseled in length in regards to stopping alcohol use, today patient has evidence of delirium tremens he is maintained on IV Ativan and IV fluid and IV thiamine will continue to monitor closely #4 tobacco abuse patient was counseled in length in regard to smoking cessation counseling more than 5 minutes #5 recent history of DVT and pulmonary embolism maintained on Xarelto continue #6 increase left knee swelling x-rays any completed showing joint effusion. Postop changes. Dr. Laird per orthopedic service is consulted. Orthopedic service is recommending AURELIO hose with compressive Thor wrap and ice. #7 increased shortness of breath with wheezing. Per nursing staff patient does wear 2 L at home. Two-view chest x-ray completed showing no acute cardiopulmonary process. Emphysema. Interstitial lung disease. Patient received 1 time dose of 40 Lasix per pulmonary. Patient currently on Solu- Medrol [address] David lópez for pulmonary services. IV steroids have been decreased to 40 mg every 8 hours #8 increased confusion. Patient remains on alcohol withdrawal protocol. Head CT completed showing no acute intracranial hemorrhage or midline shift. There is mild to moderate diffuse age-related cerebral atrophy and mild chronic small vessel ischemic change with mild to moderate hydrocephalus all demonstrate. No significant interval change. Ammonia level less than 9. 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 #9 Low grade elevated temperatures. Blood, urine and sputum cultures ordered. Urine culture showing negative bacilli. Patient started on Rocephin. Physical therapy and social work has been consulted. Patient states he lives alone. Per nursing staff patient is currently a 2 person assist DVT prophylaxis Xarelto. GI prophylaxis Pepcid I performed an examination of the patient and discussed their management with the Nurse Practitioner. I have reviewed the Nurse Practitioner's notes and agree with the documented findings and plan of care
[2018-02-03] MEDS: PROMETHAZINE 25 MG TAB PO PRN (11:38)
[2018-02-03] MEDS: THIAMINE 100 MG TAB PO SCH ×3 (11:41→20:30)
--- NOTE | 2018-02-03 15:54 | P.PN ---
Subjective Progress Note Date: 02/03/18 Principal diagnosis: Acute shortness of breath, likely related to pulmonary edema secondary to aggressive fluid resuscitation. 58-year-old male patient known to me from previous admissions and the patient is known to have COPD and chronic alcoholism and a recent hospitalization for DVT and massive pulmonary embolism for which the patient was placed on anticoagulation. The patient was readmitted to the hospital on 01/28/2018 because of complaints of nausea vomiting and diarrhea of 36 hours duration prior to his admission to the hospital. He denied having any abdominal pain. He apparently had 20 episodes of emesis prior to his hospital admission. He also had few episodes of diarrhea. He denied having any hematemesis. No melena. No hematochezia. The patient subsequently started having episodes of confusion during this current hospital stay. He had evidence of early delirium tremens. He was placed on the CIWA protocol. He was receiving Ativan every few hours and he was also receiving IV fluids. Subsequently he continued to be confused and continued to have symptoms of alcohol withdrawal. The protocol was continued. The patient denied having any chest pain or shortness of breath. His nausea vomiting and diarrhea had subsided. Subsequently the patient had a fall and orthopedic surgery was consulted regarding the left knee swelling. Noted the patient is also on anticoagulation. No hemarthrosis was noted. I was asked to evaluate this patient because of worsening shortness of breath. I came and found the patient a mild degree of respiratory distress even at rest. He was actively bronchospastic and wheezy. He denied having any chest pain. No pleurisy. No hemoptysis. No reported history of aspiration per nursing staff. A immediate chest x-ray was done. The patient was given a dose of Lasix 40 mg 9 that he was receiving IV fluids at the order of 100 mL an hour. He was started on IV Solu-Medrol. Ammonia level was sent. He did communicate with me and he did not seem to be agitated or confused at the time of my evaluation this morning. Note that this patient is a chronic alcoholic. The patient admits to drinking approximately fifth of alcohol on a daily basis. He also has history of respiratory failure due to pneumonia, COPD, seizure disorder, acid reflux, osteoarthritis, diverticular disease, upper GI bleed and history of pulmonary embolism currently on anticoagulation with Xarelto. Note that he has been also involved in delirium tremens in the past. On 02/02/2018 patient seen in follow-up on medical surgical floor. Yesterday we gave him a dose of IV Lasix, he diuresed, and on today's exam she verbalizes feeling easier, denies any chest pain. On 2 L per nasal cannula his pulse ox is 99%, patient is afebrile. He states his edema in bilateral lower extremities is improving as well. Yesterday's chest x-ray showed emphysema, and interstitial lung disease. Blunting of the left costophrenic angle. Today' s chest x-ray shows no acute process. And minimal blunting of the left costophrenic angle which is stable. Denies any abdominal pain. No nausea, no vomiting, no diarrhea. Today's blood work shows WBC of 10.4, hemoglobin of 11.5 , sodium is 138, potassium is 5.0, chloride is 111, CO2 is 21, renal profile is within normal limits. On 02/03/2018 patient seen in follow-up on medical surgical floor. No acute complaints, no worsening shortness of breath, he is calm and comfortable, awake and alert, aspirations are even and nonlabored, he is on 2 L per nasal cannula, his pulse ox of 95%, his lung sounds are clear. Patient states he was a bit wheezy last night, which was relieved with breathing treatments, patient is being treated for acute urinary tract infection, and preliminary urine cultures positive for gram-negative bacilli, currently he is on Rocephin. No evidence of delirium. Patient was given IV Lasix on 02/01/2018, and his dyspnea has improved as well as his lower extremity edema. Objective - Vital Signs Vital signs: Vital Signs Temp 97.8 F 02/03/18 14:09 Pulse 98 02/03/18 15:45 Resp 20 02/03/18 14:09 BP 118/76 02/03/18 14:09 Pulse Ox 95 02/03/18 14:09 Intake & Output 02/02/18 02/03/18 02/03/18 18:59 06:59 18:59 Intake Total 750 240 Output Total 400 Balance 350 240 Intake: Oral 750 240 Output: Urine 400 Other: Voiding Method Urinal Urinal Urinal Diaper Diaper Diaper Incontinent Incontinent Incontinent # Voids 2 2 2 # Bowel Movements 1 1 - Exam GENERAL EXAM: Alert, pleasant 57-year-old white male, comfortable in mild respiratory distress. Currently on 2 L per nasal cannula with O2 sat at 93%. HEAD: Normocephalic/atraumatic. EYES: Normal reaction of pupils, equal size. Conjunctiva pink, sclera white. NOSE: Clear with pink turbinates. THROAT: No erythema or exudates. NECK: No masses, no JVD, no thyroid enlargement, no adenopathy. CHEST: No chest wall deformity. Symmetrical expansion. LUNGS: Equal air entry with no crackles, rhonchi or dullness. Overall diminished breath sounds bilaterally with bibasilar crackles, no wheezing on today's exam. CVS: Regular rate and rhythm, normal S1 and S2, no gallops, no murmurs, no rubs ABDOMEN: Soft, nontender, slightly distended. No hepatosplenomegaly, normal bowel sounds, no guarding or rigidity. EXTREMITIES: No clubbing, no edema, no cyanosis, 2+ pulses and upper and lower extremities. MUSCULOSKELETAL: Muscle strength is weak and tone normal. There is a healed left knee scar, left leg is slightly swollen, and tender to palpation, and there is evidence of chronic venous stasis discoloration on bilateral lower extremities,no swelling in the right leg. Bilateral knees have limited flexion , particularly in the left knee. The patient had a trauma and currently has a icepack and the left knee is a bit swollen compared to the right and appropriate dressing is applied. SPINE: No scoliosis or deformity SKIN: No rashes CENTRAL NERVOUS SYSTEM: Alert and oriented -2. No focal deficits, tone is normal in all 4 extremities. PSYCHIATRIC: Alert and oriented -2. Patient is a poor historian, and his recollection of events is in poor chronological order - Labs CBC & Chem 7: 02/03/18 09:02/03/18 09:01 Labs: Abnormal Lab Results - Last 24 Hours (Table) 02/03/18 02/03/18 Range/Units 09: 09: WBC 12.7 H (3.8-10.6) k/uL RBC 3.22 L (4.30-5.90) m/uL Hgb 10.8 L (13.0-17.5) gm/dL Hct 34.5 L (39.0-53.0) % MCV 107.3 H (80.0-100.0) fL RDW 18.1 H (11.5-15.5) % Plt Count 577 H (150-450) k/uL Neutrophils # 11.6 H (1.3-7.7) k/uL Lymphocytes # 0.6 L (1.0-4.8) k/uL Chloride 111 H (98-107) mmol/L Creatinine 0.60 L (0.66-1.25) mg/dL Glucose 149 H (74-99) mg/dL ALT 13 L (21-72) U/L Total Protein 5.8 L (6.3-8.2) g/dL Albumin 2.5 L (3.5-5.0) g/dL Microbiology - Last 24 Hours (Table) 02/01/18 10:50 Blood Culture - Preliminary Blood No Growth after 48 hours 02/01/18 11:30 Urine Culture - Preliminary Urine,Clean Catch Gram Neg Bacilli Assessment and Plan Plan: 1 acute shortness of breath, due to an acute COPD exacerbation as the patient has known history of COPD and is currently acutely bronchospastic and wheezy. Rule out aspiration. Rule out pulmonary edema as the patient has been aggressively resuscitated with IV fluids. Awaiting chest x-ray. Meanwhile the patient was started on bronchodilators and systemic steroids. Aspiration precautions. Further, this is to follow based on x-ray findings. The patient was given a dose of Lasix meanwhile 40 mg IV push. Patient is also on long- term anticoagulation regarding massive bilateral pulmonary embolism 2 recent hospitalization for large bilateral pulmonary embolism with rapid ventricular strain pattern currently on anticoagulation 3 COPD with chronic hypoxic history failure, baseline FEV1 is 51% of predicted 4 chronic alcoholism 5 delirium tremens currently well treated 6 nausea and emesis and diarrhea, subsided 7 recurrent falls 8 rib fractures, history of 9 seizure disorder probably alcoholic back in 2010 10 diverticulosis 11 acid reflux 12 debility seconds above-mentioned comorbidities 13 Left knee effusion, secondary to trauma him a or sores on the case. No signs of any acute infection. The joint is not hot or red. There is effusion however and high AURELIO hose and compression Thor wraps were applied. Plan: Patient remains stable from pulmonary standpoint, no worsening shortness of breath, patient has been diuresed, and his dyspnea seemed to have improved in response to diuretics, as well as systemic steroids and nebulized bronchodilators. We will switch the IV Solu-Medrol to oral prednisone starting tomorrow. Continue nebulized bronchodilators. I performed a history & physical examination of the patient and discussed their management with my nurse practitioner, Yennifer Irby. I reviewed the nurse practitioner's note and agree with the documented findings and plan of care. Lung sounds are positive for bibasilar crackles. The findings and the impression was discussed with the patient. I attest to the documentation by the nurse practitioner. Time with Patient: Less than 30
--- NOTE | 2018-02-03 16:32 | P.CONS ---
History of Present Illness - Chief Complaint Medical debility - History of Present Illness I had the opportunity to see patient for inpatient rehab consultation with regard to medical debility. He was admitted to [facility] January 28 with nausea , emesis, diarrhea. Note studies KUB nonspecific nonobstructive gas pattern. Abdominal ultrasound negative for gallstones. Head CT with mild to moderate age related atrophy and white matter change. Chest x-ray negative. Seen by Dr. Monge recommends only conservative treatment for the GI. Seen by Dr. Aravind Laird for left knee pain and recommend only Thor wrap were AURELIO hose. Seen by Dr. Flynn or shortness of breath recommend only conservative treatment. Seen by Dr. Angulo for possible NPH which appears to be doubtful, clinically. PT and OT prescribed but are not seen patient yet. Previous functional history as elicited from patient: 58-year-old right-handed white male who is and lives in a trailer home alone. On disability. Describes independent with own cooking laundry, sitdown shower and gait without device although E does have a roller walker and a wheelchair. His license 17 years ago. Was a pack a day smoker and at least 3 drinks a day but quit both. Dr. Edward is PMD. Family history father with VT and stroke. Review of Systems Review of systems: ENT: Denies sneezes or discharge. Eyes: Denies discharge or photophobia. Cardiac: Denies chest pain or palpitation. Pulmonary: Mild shortness of breath. Gastrointestinal: Reports GI symptoms clearing up/cleared up. Genitourinary: Denies discharge or frequency. Musculoskeletal: Denies muscle or bone aches. Neurologic: Denies motor or sensory change. Endocrine: Denies shakes or sweats. Oncology: Denies cancers. Dermatologic: Denies rash, itching, pruritus. ALLERGY/immunology: Denies sneezes, rashes. Past Medical History Past Medical History: GERD/Reflux, Osteoarthritis (OA), Seizure Disorder, Syncope Additional Past Medical History / Comment(s): Alcoholism, recent hospitalization for bilateral pulmonary embolism with clot occluding the left pulmonary artery and evidence of right ventricular strain pattern maintained on anticoagulation, COPD, chronic hypoxic respiratory failure, FEV1 of 51% of predicted with chronic hypoxic respiratory failure, chronic smoker carries more than on the PACU smoking history, alcoholism, history of delirium tremens, history of recurrent falls, history of rib fractures related to falls, GERD, diverticulosis, seizure disorder, osteoarthritis, history of small bowel obstruction secondary to incarcerated right inguinal hernia, History of Any Multi-Drug Resistant Organisms: None Reported Past Surgical History: Appendectomy, Heart Catheterization, Hernia Repair, Joint Replacement, Orthopedic Surgery, Tonsillectomy Additional Past Surgical History / Comment(s): Colonoscopies and polypectomies, 10/21/15 normal cardiac cath, multiple inguinal hernia surg., bilateral knee arthroscopies and pt states bilateral knee arthroplasties. Past Anesthesia/Blood Transfusion Reactions: No Reported Reaction Past Psychological History: Anxiety, Depression Smoking Status: Current every day smoker Past Alcohol Use History: Daily Past Drug Use History: None Reported - Past Family History Father Family Medical History: Coronary Artery Disease (CAD), Myocardial Infarction (VT ) Additional Family Medical History / Comment(s): Father of a VT at the age of 73 yrs. Mother Family Medical History: Cancer Additional Family Medical History / Comment(s): Mother had breast cancer. She is 81 yrs old and now healthy. Medications and Allergies Home Medications Medication Instructions Recorded Confirmed Type Menthol [Biofreeze] 1 applic TOPICAL DAILY PRN 12/01/17 01/28/18 History Potassium Chloride ER [K-Dur 20] 20 meq PO BID 12/01/17 01/28/18 History busPIRone HCl [Buspar] 10 mg PO BID PRN 12/01/17 01/28/18 History Acetaminophen Tab [Tylenol Tab] 650 mg PO Q6H PRN 01/28/18 01/28/18 History Albuterol Nebulized [Ventolin 2.5 mg INHALATION RT-Q4H 01/28/18 01/28/18 History Nebulized] Amino Acids/Protein Hydrolys 30 ml PO DAILY 01/28/18 01/28/18 History [Pro-Stat Supplement] Aspercreme W/ Lidocain Cream 4 1 applic TOPICAL Q8H PRN 01/28/18 01/28/18 History Joslyn-Lanta Susp 200-200-20/5ml 30 ml PO Q6H PRN 01/28/18 01/28/18 History Hydrocodone/Acetaminophen [Brent 1 tab PO Q8H PRN 01/28/18 01/28/18 History 5-325] Kaopectate Suspensi 202mg/15ml 404 mg PO Q4H PRN 01/28/18 01/28/18 History Magnesium 400 mg PO BID 01/28/18 01/28/18 History Melatonin 3 mg PO HS PRN 01/28/18 01/28/18 History Omeprazole 20 mg PO DAILY 01/28/18 01/28/18 History Promethazine [Phenergan] 12.5 mg PO Q8HR PRN 01/28/18 01/28/18 History Rivaroxaban [Xarelto] 20 mg PO HS 01/28/18 01/28/18 History Thiamine HCl [Vitamin B-1] 100 mg PO HS 01/28/18 01/28/18 History Allergies Allergy/AdvReac Type Severity Reaction Status Date / Time tramadol AdvReac Mild Itching Verified 01/28/18 16:08 Physical Exam Vitals: Vital Signs Temp Pulse Pulse Resp BP Pulse Ox 02/03/18 15:45 98 02/03/18 15:33 100 02/03/18 14:09 97.8 F 108 H 20 118/76 95 02/03/18 11:14 93 02/03/18 11:04 92 02/03/18 07:22 102 H 02/03/18 07:21 97.0 F L 84 18 125/76 94 L 02/03/18 07:12 100 02/03/18 07:10 18 02/03/18 01:50 108 H 02/03/18 01:42 104 H 02/02/18 23:00 96.9 F L 100 20 128/82 95 02/02/18 20:23 110 H 02/02/18 20:13 104 H 02/02/18 16:43 108 H Intake and Output 02/03/18 02/03/18 02/03/18 06:59 14:59 22:59 Intake Total 350 240 Output Total 400 Balance -50 240 Intake: Oral 350 240 Output: Urine 400 Other: Voiding Method Urinal Diaper Incontinent # Voids 2 # Bowel Movements 1 Skin: Good color, texture, turgor. Note left lower leg and foot in Thor wrap. General: Medium build and comfortable appearance. Head: Normocephalic, atraumatic. Eyes: Symmetric. Pupils equal round. Ears: Symmetric. Hearing within normal limits. Mouth: Clear. Neck: Supple. Carotid without bruit. Cardiac: Regular rate and rhythm. Lungs: Clear anteriorly and posteriorly. Abdomen: Soft active nontender. Extremities: Normal tone. Left lower leg and foot wrapped in Thor wrap and patient requested not be touched. Neurological: Mental status: Alert, cooperative, pleasant. Cranial nerves: Symmetric facial tone and trapezius. Motor: Normal and active movement all 4 limbs including left leg and ankle. Sensation: Intact throughout. DTRs: Symmetric and equal throughout. Mobility: Not attempt to sit or stand his left leg is uncomfortable. Results CBC & Chem 7: 02/03/18 09:02/03/18 09:01 Labs: Abnormal Lab Results - Last 24 Hours (Table) 02/03/18 02/03/18 Range/Units 09: 09:01 WBC 12.7 H (3.8-10.6) k/uL RBC 3.22 L (4.30-5.90) m/uL Hgb 10.8 L (13.0-17.5) gm/dL Hct 34.5 L (39.0-53.0) % MCV 107.3 H (80.0-100.0) fL RDW 18.1 H (11.5-15.5) % Plt Count 577 H (150-450) k/uL Neutrophils # 11.6 H (1.3-7.7) k/uL Lymphocytes # 0.6 L (1.0-4.8) k/uL Chloride 111 H (98-107) mmol/L Creatinine 0.60 L (0.66-1.25) mg/dL Glucose 149 H (74-99) mg/dL ALT 13 L (21-72) U/L Total Protein 5.8 L (6.3-8.2) g/dL Albumin 2.5 L (3.5-5.0) g/dL Microbiology - Last 24 Hours (Table) 02/01/18 10:50 Blood Culture - Preliminary Blood No Growth after 48 hours 02/01/18 11:30 Urine Culture - Preliminary Urine,Clean Catch Gram Neg Bacilli Assessment and Plan (1) ETOH abuse Current Visit: Yes Status: Acute Code(s): F10.10 - ALCOHOL ABUSE, UNCOMPLICATED SNOMED Code(s): 52084980 Plan: Impression: 1. Medical debility. 2. History of tobacco and alcohol abuse. 3. GERD. 4. Osteoarthritis. 5. History of syncope. 6. History of seizure. Comments and plan: At this time PT and OT are ordered. Await their initiation. Patient however his strongly voiced that he intends only to return to home as discharge plan.
[2018-02-03] MEDS: RIVAROXABAN 20 MG TAB PO SCH (17:37)
[2018-02-03 23:05] VITALS: BP 143/92; RESP 16; TEMP 97.1
[2018-02-04] MEDS: SODIUM CHLORIDE 0.9% 1,000 ML IV SCH (02:39)
[2018-02-04] MEDS: HYDROcodone/APAP 5-325MG 1 EACH TAB PO PRN ×2 (05:03→14:29)
[2018-02-04 08:01] LABS: Anisocytosis Slight; Basophils % (A) 0 %; Eosinophils % (A) 0 %; HCT 33.9 % (39.0-53.0); HGB 10.7 gm/dL (13.0-17.5); Hypochromasia Moderate; Lymphocytes # (A) 1.2 k/uL (1.0-4.8); Lymphocytes % (A) 11 %; MCH 33.8 pg (25.0-35.0); MCHC 31.7 g/dL (31.0-37.0); MCV 106.6 fL (80.0-100.0); Macrocytosis Marked; Mean Platelet Volume 7.3; Monocytes # (A) 0.6 k/uL (0-1.0); Monocytes % (A) 6 %; Neutrophils # (A) 8.4 k/uL (1.3-7.7); Neutrophils % (A) 81 %; Platelet Count 539 k/uL (150-450); RBC 3.18 m/uL (4.30-5.90); RDW 18.1 % (11.5-15.5); WBC 10.4 k/uL (3.8-10.6)
[2018-02-04] MEDS: PANTOPRAZOLE 40 MG TABLET PO SCH (08:51)
[2018-02-04] MEDS: THIAMINE 100 MG TAB PO SCH (08:51)
[2018-02-04] MEDS: MAGNESIUM OXIDE 400 MG TAB PO SCH (08:51)
[2018-02-04 08:52] LABS: ALT 20 U/L (21-72); AST 24 U/L (17-59); Albumin 2.4 g/dL (3.5-5.0); Alkaline Phosphatase 86 U/L (38-126); Anion Gap 7 mmol/L; Blood Urea Nitrogen 16 mg/dL (9-20); Calcium 8.5 mg/dL (8.4-10.2); Carbon Dioxide 21 mmol/L (22-30); Chloride 113 mmol/L (98-107); Glucose 87 mg/dL (74-99); Sodium 141 mmol/L (137-145); Total Bilirubin 0.3 mg/dL (0.2-1.3); Total Protein 5.4 g/dL (6.3-8.2)
[2018-02-04] MEDS: NICOTINE 21MG/24HR PATCH TRANSDERM SCH (08:52)
[2018-02-04] MEDS: ALBUTEROL NEBULIZED 2.5 MG/3 ML INHALATION SCH ×2 (08:55→12:22)
[2018-02-04] MEDS ORDERED: predniSONE 20 MG TAB PO SCH (09:00)
--- NOTE | 2018-02-04 09:03 | P.PN ---
Subjective Progress Note Date: 02/03/18 Patient resting comfortably with no new complaints. Neurology was consulted yesterday for evaluation of possible normal pressure hydrocephalus. We reviewed his CAT scan films in detail and he does show some degree of ventriculomegaly but does not have significant ballooning of the ventricles. His clinical exam also is not consistent with NPH at this time. The patient is being evaluated for shortness of breath and acute COPD exacerbation. He does not have evidence at this time to suggest dementia and gait ataxia. He does have difficulty with his left knee pain and with effusion and this is being followed by orthopedic surgery. We have reviewed the results of his CAT scan in detail with the patient. He is being closely treated for alcohol withdrawal. He has mild delirium tremens symptoms but seems to be making very good progress. We will continue close neurological follow-up for the patient during this admission. Objective - Vital Signs Vital signs: Vital Signs Temp 97.1 F L 02/03/18 23:04 Pulse 83 02/03/18 23:04 Resp 16 02/03/18 23:04 BP 143/92 02/03/18 23:04 Pulse Ox 99 02/03/18 23:04 Intake & Output 02/03/18 02/03/18 02/04/18 06:59 18:59 06:59 Intake Total 750 240 100 Output Total 400 Balance 350 240 100 Intake: Oral 750 240 100 Output: Urine 400 Other: Voiding Method Urinal Urinal Diaper Incontinent Incontinent # Voids 2 2 # Bowel Movements 1 - Exam Physical examination: PHYSICAL EXAMINATION: Patient is resting comfortably in bed. VITAL SIGNS: Blood pressure is [142/92]. Heart rate is [83]. Respiration is [16] . Temperature is [97.1]. HEENT: Head is atraumatic, neck is supple, there were no carotid bruits. CHEST: Lungs are clear to auscultation and percussion. CARDIAC: S1, S2 normal rate and rhythm. There is no murmur. ABDOMEN: Soft and nontender. Bowel sounds are present. EXTREMITIES: There is no pedal edema. Peripheral pulses are present. Neurological examination: This patient's neurological examination is unchanged from yesterday. He is alert and oriented 3. He has no evidence of underlying dementia at this time. He has no clinical findings for gait ataxia. He does have left knee swelling and pain. He has no evidence of urinary incontinence. We will continue close neurological follow-up with the patient during this admission. - Labs CBC & Chem 7: 02/04/18 07:50 02/04/18 07:50 Labs: Abnormal Lab Results - Last 24 Hours (Table) 02/03/18 02/03/18 Range/Units 09:01 09:01 WBC 12.7 H (3.8-10.6) k/uL RBC 3.22 L (4.30-5.90) m/uL Hgb 10.8 L (13.0-17.5) gm/dL Hct 34.5 L (39.0-53.0) % MCV 107.3 H (80.0-100.0) fL RDW 18.1 H (11.5-15.5) % Plt Count 577 H (150-450) k/uL Neutrophils # 11.6 H (1.3-7.7) k/uL Lymphocytes # 0.6 L (1.0-4.8) k/uL Chloride 111 H (98-107) mmol/L Creatinine 0.60 L (0.66-1.25) mg/dL Glucose 149 H (74-99) mg/dL ALT 13 L (21-72) U/L Total Protein 5.8 L (6.3-8.2) g/dL Albumin 2.5 L (3.5-5.0) g/dL Microbiology - Last 24 Hours (Table) 02/01/18 10:50 Blood Culture - Preliminary Blood No Growth after 48 hours 02/01/18 11:30 Urine Culture - Preliminary Urine,Clean Catch Gram Neg Bacilli Assessment and Plan (1) Hydrocephalus Current Visit: Yes Status: Acute Code(s): G91.9 - HYDROCEPHALUS, UNSPECIFIED SNOMED Code(s): 971055247 (2) Alcohol withdrawal syndrome Current Visit: No Status: Acute Code(s): F10.239 - ALCOHOL DEPENDENCE WITH WITHDRAWAL, UNSPECIFIED SNOMED Code(s): 133221461 (3) Delirium tremens Current Visit: No Status: Acute Code(s): F10.231 - ALCOHOL DEPENDENCE WITH WITHDRAWAL DELIRIUM SNOMED Code(s): 5786921 (4) Syncope Current Visit: No Status: Acute Code(s): R55 - SYNCOPE AND COLLAPSE SNOMED Code(s): 925351532 Plan: This patient is a 58-year-old male who is being closely monitored for possibility of NPH. We did review his computed tomography scan of the brain films in detail with him. His neurological examination at this time is nonfocal. He does not demonstrate classical features for NPH. Review of his CAT scan also does not reveal significant findings for NPH. We will continue to monitor his neurological status closely during this admission. His overall prognosis remains guarded. We will continue close neurological follow-up for the patient during this admission. Would increase activity as he tolerates with evaluation from physical therapy. His overall condition remains stable at this time.
[2018-02-04] MEDS: busPIRone HCl 10 MG TAB PO PRN (09:12)
[2018-02-04] MEDS: PROMETHAZINE 25 MG TAB PO PRN (09:12)
[2018-02-04] MEDS ORDERED: CIPROFLOXACIN HCL 500 MG TAB PO SCH (10:30)
[2018-02-04 12:24] VITALS: PULSE 72
--- NOTE | 2018-02-04 13:51 | P.DS ---
Providers Date of admission: 01/28/18 15:36 Expected date of discharge: 02/04/18 Attending physician: Benita Holland Consults: 01/31/18 14:41 Consult Physician Routine Consulting Provider: Aravind Laird Consult Reason/Comments: Left knee swelling history of left knee replacement Do you want consulting provider notified?: Yes 02/01/18 10:19 Consult Physician Routine Consulting Provider: Garfield Flynn Consult Reason/Comments: increase shortness of breath Do you want consulting provider notified?: Yes 02/02/18 14:19 Consult Physician Routine Consulting Provider: Joe Kimble Consult Reason/Comments: mild-to moderate hydrocephalus Do you want consulting provider notified?: Yes 02/03/18 13:08 Consult Physician Routine Consulting Provider: Wilmer Brock Consult Reason/Comments: inpatient rehab eval Do you want consulting provider notified?: Yes Primary care physician: [facility] Course: Discharge diagnosis #1 episodes of nausea and vomiting and diarrhea, likely related to gastroenteritis cause is unclear viral versus alcohol-induced, patient counseled in length in regards to alcohol cessation, at this time he is maintained on Pepcid and Protonix will continue, gastroenterology consult was requested, abdomen x-ray, abdomen ultrasound, amylase lipase, AST and a LT are old normal, alkaline phosphatase is elevated at 263. Per GI services, nausea, vomiting and diarrhea. Acute onset likely secondary to gastroenteritis and will consider endoscopic evaluation and additional testing based on his course. She has been cleared for discharge from GI standpoint. #2 severe hypokalemia with potassium of 2.7 corrected. Potassium now elevated 5.0. Continue to monitor closely. Potassium will be discontinued upon discharge #3 underlying history of daily alcohol use patient was counseled in length in regards to stopping alcohol use, today patient has evidence of delirium tremens he is maintained on IV Ativan and IV fluid and IV thiamine will continue to monitor closely #4 tobacco abuse patient was counseled in length in regard to smoking cessation counseling more than 5 minutes #5 recent history of DVT and pulmonary embolism maintained on Xarelto continue #6 increase left knee swelling x-rays any completed showing joint effusion. Postop changes. Dr. Laird per orthopedic service is consulted. Orthopedic service is recommending AURELIO hose with compressive Thor wrap and ice. #7 increased shortness of breath with wheezing. Per nursing staff patient does wear 2 L at home. Two-view chest x-ray completed showing no acute cardiopulmonary process. Emphysema. Interstitial lung disease. Patient received 1 time dose of 40 Lasix per pulmonary. Patient currently on Solu- Medrol [address] David lópez for pulmonary services. IV steroids have been decreased to 40 mg every 8 hours #8 increased confusion. Patient remains on alcohol withdrawal protocol. Head CT completed showing no acute intracranial hemorrhage or midline shift. There is mild to moderate diffuse age-related cerebral atrophy and mild chronic small vessel ischemic change with mild to moderate hydrocephalus all demonstrate. No significant interval change. Ammonia level less than 9. Per neurology patient is not manifesting symptoms suggested as underlining NPHand CAT scan of the brain show no significant interval change from prior CT done in 07/18/2016. Patient will follow-up outpatient with neurology services. #9 Low grade elevated temperatures. Blood, urine and sputum cultures ordered. Urine culture showing negative bacilli. Urine culture completed growing Proteus vulgaris and klebsiella oxytoca. patient will be discharged home on Cipro for 7 days Hospital Course This a 58-year-old male who presented to [facility] emergency room was a chief complaint of nausea vomiting and diarrhea for about 36 hours prior to presentation he denies any abdominal pain Patient states he has had about 20 episodes of vomiting since midnight. And he has had a few episodes of diarrhea. He denies hematemesis, melena or hematochezia. Patient had a diagnosis of DVT and pulmonary embolism 6-8 weeks ago he was transferred to [facility] and underwent a procedure on his lung it's not clear from his description whether this is a thrombectomy or TPA infusion will try to obtain records. Patient also has known history of left knee surgery 2 months ago. On 01/30/2018 patient today is confused having significant episodes of shaking, he has evidence of early delirium tremens, he is maintained on CIWA protocol and receiving IV Ativan every hour at this time he is also receiving IV fluid On 01/31/2018 patient remains confused and having symptoms of alcohol withdrawal. Patient is currently on the CIWA protocal. Social work and physical therapy services also consulted due to patient stating he lives on his own. Per nursing staff patient is a 2 person assist. Patient denies chest pain or shortness breath. patient denies nausea vomiting or diarrhea. Patient denies any burning or frequency. On 02/01/2018 patient remains confused displaying symptoms of alcohol withdrawal. Orthopedic services consulted for increased left knee swelling yesterday. Patient has increased shortness of breath. Chest x-ray ordered and pulmonary services have been consulted. Patient having low-grade temperatures. Blood and urine and sputum cultures have been ordered. Due to patient's increased confusion head CT and ammonia level ordered. At this time patient denies chest pain. Denies nausea vomiting or diarrhea. Denies any urinary burning or frequency. On 02/02/2018 patient is currently resting comfortably in bed. Breathing seems improved from yesterday. Patient is still slightly confused but improving. Remains on alcohol withdrawal protocol. At this time patient denies chest pain or shortness of breath. Denies nausea vomiting or diarrhea. Denies any urinary burning or frequency. On 02/03/2018 patient is currently resting comfortably in bed. Patient is alert and oriented 2. Patient denies chest pain or shortness of breath. Patient denies nausea vomiting or diarrhea. Patient denies any urinary burning or frequency On 02/04/2018 patient is eager to go home. Per nursing staff patient has been able to get up with minimum assistance to Bactrim. Patient declines any rehab at this time. Patient will be DC'd home on ciprofloxacin twice a day for 7 days for urinary tract infection. Patient follow-up outpatient with neurology and pulmonary services. Patient will be DC'd home on prednisone taper. Patient to follow-up closely with primary care provider. Patient educated in depth about alcohol cessation and the importance of no longer consuming alcohol. At this time patient denies chest pain or shortness breath. Denies any nausea vomiting or diarrhea. Denies any urinary symptoms. Patient has been cleared for discharge from consulting providers. I performed an examination of the patient and discussed their management with the Nurse Practitioner. I have reviewed the Nurse Practitioner's notes and agree with the documented findings and plan of care Patient Condition at Discharge: Stable Plan - Discharge Summary Discharge Rx Participant: No New Discharge Prescriptions: New Ciprofloxacin HCl [Cipro] 500 mg PO BID 7 Days #14 tab Nicotine 21Mg/24Hr Patch [Habitrol] 1 patch TRANSDERM DAILY #30 patch predniSONE 10 mg PO DIRECTED #30 tab Continue Menthol [Biofreeze] 1 applic TOPICAL DAILY PRN PRN Reason: Pain busPIRone HCl [Buspar] 10 mg PO BID PRN PRN Reason: Anxiety Acetaminophen Tab [Tylenol] 650 mg PO Q6H PRN PRN Reason: Pain Albuterol Nebulized [Ventolin Nebulized] 2.5 mg INHALATION RT-Q4H Aspercreme W/ Lidocain Cream 4 1 applic TOPICAL Q8H PRN PRN Reason: Pain Hydrocodone/Acetaminophen [Kalaheo 5-325] 1 tab PO Q8H PRN PRN Reason: Pain Magnesium 400 mg PO BID Melatonin 3 mg PO HS PRN PRN Reason: Insomnia Omeprazole 20 mg PO DAILY Promethazine [Phenergan] 12.5 mg PO Q8HR PRN PRN Reason: Nausea And Vomiting Rivaroxaban [Xarelto] 20 mg PO HS Thiamine HCl [Vitamin B-1] 100 mg PO HS Kaopectate Suspensi 202mg/15ml 404 mg PO Q4H PRN PRN Reason: Diarrhea Amino Acids/Protein Hydrolys [Pro-Stat Supplement] 30 ml PO DAILY Joslyn-Lanta Susp 200-200-20/5ml 30 ml PO Q6H PRN PRN Reason: Heartburn Discontinued Potassium Chloride ER [K-Dur 20] 20 meq PO BID Discharge Medication List Menthol [Biofreeze] 1 applic TOPICAL DAILY PRN 12/01/17 [History] busPIRone HCl [Buspar] 10 mg PO BID PRN 12/01/17 [History] Acetaminophen Tab [Tylenol] 650 mg PO Q6H PRN 01/28/18 [History] Albuterol Nebulized [Ventolin Nebulized] 2.5 mg INHALATION RT-Q4H 01/28/18 [ History] Amino Acids/Protein Hydrolys [Pro-Stat Supplement] 30 ml PO DAILY 01/28/18 [ History] Aspercreme W/ Lidocain Cream 4 1 applic TOPICAL Q8H PRN 01/28/18 [History] Joslyn-Lanta Susp 200-200-20/5ml 30 ml PO Q6H PRN 01/28/18 [History] Hydrocodone/Acetaminophen [Kalaheo 5-325] 1 tab PO Q8H PRN 01/28/18 [History] Kaopectate Suspensi 202mg/15ml 404 mg PO Q4H PRN 01/28/18 [History] Magnesium 400 mg PO BID 01/28/18 [History] Melatonin 3 mg PO HS PRN 01/28/18 [History] Omeprazole 20 mg PO DAILY 01/28/18 [History] Promethazine [Phenergan] 12.5 mg PO Q8HR PRN 01/28/18 [History] Rivaroxaban [Xarelto] 20 mg PO HS 01/28/18 [History] Thiamine HCl [Vitamin B-1] 100 mg PO HS 01/28/18 [History] Ciprofloxacin HCl [Cipro] 500 mg PO BID 7 Days #14 tab 02/04/18 [Rx] Nicotine 21Mg/24Hr Patch [Habitrol] 1 patch TRANSDERM DAILY #30 patch 02/04/18 [ Rx] predniSONE 10 mg PO DIRECTED #30 tab 02/04/18 [Rx] Follow up Appointment(s)/Referral(s): Claudette Edward DO [Primary Care Provider] - 02/09/18 2:30 pm (Appointment with Dr Carson) [facility],Nurse [NON-STAFF] - Garfield Flynn MD [STAFF PHYSICIAN] - 1 Week Joe Kimble MD [STAFF PHYSICIAN] - 1 Week Patient Instructions/Handouts: Abuse of Alcohol (DC) Activity/Diet/Wound Care/Special Instructions: Regular diet. NO alcohol, references provided. Activity as tolerated, fall precautions. Discharge Disposition: HOME WITH HOME HEALTH SERVICES
--- NOTE | 2018-02-04 14:01 | P.PN ---
Subjective Progress Note Date: 02/04/18 Principal diagnosis: Acute shortness of breath, likely related to pulmonary edema secondary to aggressive fluid resuscitation. 58-year-old male patient known to me from previous admissions and the patient is known to have COPD and chronic alcoholism and a recent hospitalization for DVT and massive pulmonary embolism for which the patient was placed on anticoagulation. The patient was readmitted to the hospital on 01/28/2018 because of complaints of nausea vomiting and diarrhea of 36 hours duration prior to his admission to the hospital. He denied having any abdominal pain. He apparently had 20 episodes of emesis prior to his hospital admission. He also had few episodes of diarrhea. He denied having any hematemesis. No melena. No hematochezia. The patient subsequently started having episodes of confusion during this current hospital stay. He had evidence of early delirium tremens. He was placed on the CIWA protocol. He was receiving Ativan every few hours and he was also receiving IV fluids. Subsequently he continued to be confused and continued to have symptoms of alcohol withdrawal. The protocol was continued. The patient denied having any chest pain or shortness of breath. His nausea vomiting and diarrhea had subsided. Subsequently the patient had a fall and orthopedic surgery was consulted regarding the left knee swelling. Noted the patient is also on anticoagulation. No hemarthrosis was noted. I was asked to evaluate this patient because of worsening shortness of breath. I came and found the patient a mild degree of respiratory distress even at rest. He was actively bronchospastic and wheezy. He denied having any chest pain. No pleurisy. No hemoptysis. No reported history of aspiration per nursing staff. A immediate chest x-ray was done. The patient was given a dose of Lasix 40 mg 9 that he was receiving IV fluids at the order of 100 mL an hour. He was started on IV Solu-Medrol. Ammonia level was sent. He did communicate with me and he did not seem to be agitated or confused at the time of my evaluation this morning. Note that this patient is a chronic alcoholic. The patient admits to drinking approximately fifth of alcohol on a daily basis. He also has history of respiratory failure due to pneumonia, COPD, seizure disorder, acid reflux, osteoarthritis, diverticular disease, upper GI bleed and history of pulmonary embolism currently on anticoagulation with Xarelto. Note that he has been also involved in delirium tremens in the past. On 02/02/2018 patient seen in follow-up on medical surgical floor. Yesterday we gave him a dose of IV Lasix, he diuresed, and on today's exam she verbalizes feeling easier, denies any chest pain. On 2 L per nasal cannula his pulse ox is 99%, patient is afebrile. He states his edema in bilateral lower extremities is improving as well. Yesterday's chest x-ray showed emphysema, and interstitial lung disease. Blunting of the left costophrenic angle. Today' s chest x-ray shows no acute process. And minimal blunting of the left costophrenic angle which is stable. Denies any abdominal pain. No nausea, no vomiting, no diarrhea. Today's blood work shows WBC of 10.4, hemoglobin of 11.5 , sodium is 138, potassium is 5.0, chloride is 111, CO2 is 21, renal profile is within normal limits. On 02/03/2018 patient seen in follow-up on medical surgical floor. No acute complaints, no worsening shortness of breath, he is calm and comfortable, awake and alert, aspirations are even and nonlabored, he is on 2 L per nasal cannula, his pulse ox of 95%, his lung sounds are clear. Patient states he was a bit wheezy last night, which was relieved with breathing treatments, patient is being treated for acute urinary tract infection, and preliminary urine cultures positive for gram-negative bacilli, currently he is on Rocephin. No evidence of delirium. Patient was given IV Lasix on 02/01/2018, and his dyspnea has improved as well as his lower extremity edema. On 02/04/2018 patient seen in follow-up on medical surgical floor. No shortness of breath, no chest pain. Room air pulse ox is 99%, patient is afebrile, respirations are even and nonlabored, no cough, no chest congestion, no sputum production. Urine cultures were positive for Proteus vulgaris and Klebsiella oxytoca, and the patient was switched to ciprofloxacin from Rocephin for evidence of susceptibility of both organisms. IV steroids have been transitioned to oral prednisone, patient remains on nebulized bronchodilators. Overall is stable, and discharge planning is pending for discharge home sometime today Objective - Vital Signs Vital signs: Vital Signs Temp 97.1 F L 09/13/18 23:04 Pulse 72 02/04/18 12:33 Resp 16 02/03/18 23:04 BP 143/92 02/03/18 23:04 Pulse Ox 99 02/03/18 23:04 Intake & Output 02/03/18 02/04/18 02/04/18 18:59 06:59 18:59 Intake Total 240 100 240 Output Total 200 Balance 240 -100 240 Intake: Oral 240 100 240 Output: Urine 200 Other: Voiding Method Urinal Urinal Incontinent Incontinent # Voids 2 2 - Exam GENERAL EXAM: Alert, pleasant 57-year-old white male, comfortable in mild respiratory distress. Currently on 2 L per nasal cannula with O2 sat at 93%. HEAD: Normocephalic/atraumatic. EYES: Normal reaction of pupils, equal size. Conjunctiva pink, sclera white. NOSE: Clear with pink turbinates. THROAT: No erythema or exudates. NECK: No masses, no JVD, no thyroid enlargement, no adenopathy. CHEST: No chest wall deformity. Symmetrical expansion. LUNGS: Equal air entry with no crackles, rhonchi or dullness. Overall diminished breath sounds bilaterally with bibasilar crackles, no wheezing on today's exam. CVS: Regular rate and rhythm, normal S1 and S2, no gallops, no murmurs, no rubs ABDOMEN: Soft, nontender, slightly distended. No hepatosplenomegaly, normal bowel sounds, no guarding or rigidity. EXTREMITIES: No clubbing, no edema, no cyanosis, 2+ pulses and upper and lower extremities. MUSCULOSKELETAL: Muscle strength is weak and tone normal. There is a healed left knee scar, left leg is slightly swollen, and tender to palpation, and there is evidence of chronic venous stasis discoloration on bilateral lower extremities,no swelling in the right leg. Bilateral knees have limited flexion , particularly in the left knee. The patient had a trauma and currently has a icepack and the left knee is a bit swollen compared to the right and appropriate dressing is applied. SPINE: No scoliosis or deformity SKIN: No rashes CENTRAL NERVOUS SYSTEM: Alert and oriented -2. No focal deficits, tone is normal in all 4 extremities. PSYCHIATRIC: Alert and oriented -2. Patient is a poor historian, and his recollection of events is in poor chronological order - Labs CBC & Chem 7: 02/04/18 07:50 02/04/18 07:50 Labs: Abnormal Lab Results - Last 24 Hours (Table) 02/04/18 02/04/18 Range/Units 07:50 07:50 RBC 3.18 L (4.30-5.90) m/uL Hgb 10.7 L (13.0-17.5) gm/dL Hct 33.9 L (39.0-53.0) % MCV 106.6 H (80.0-100.0) fL RDW 18.1 H (11.5-15.5) % Plt Count 539 H (150-450) k/uL Neutrophils # 8.4 H (1.3-7.7) k/uL Chloride 113 H (98-107) mmol/L Carbon Dioxide 21 L (22-30) mmol/L ALT 20 L (21-72) U/L Total Protein 5.4 L (6.3-8.2) g/dL Albumin 2.4 L (3.5-5.0) g/dL Microbiology - Last 24 Hours (Table) 02/01/18 10:50 Blood Culture - Preliminary Blood No Growth after 72 hours 02/01/18 16:00 Gram Stain - Final Sputum Sputum Culture - Final 02/01/18 11:30 Urine Culture - Final Urine,Clean Catch Proteus vulgaris Klebsiella oxytoca Assessment and Plan Plan: 1 acute shortness of breath, due to an acute COPD exacerbation as the patient has known history of COPD and is currently acutely bronchospastic, patient responded well to bronchodilators, systemic steroids, and IV diuretics. Possibilities included possible aspiration, fluid overload from aggressive fluid resuscitation and acute exacerbation of COPD. Patient is also on long- term anticoagulation regarding massive bilateral pulmonary embolism 2 recent hospitalization for large bilateral pulmonary embolism with rapid ventricular strain pattern currently on anticoagulation 3 COPD with chronic hypoxic history failure, baseline FEV1 is 51% of predicted 4 chronic alcoholism 5 delirium tremens currently well treated 6 nausea and emesis and diarrhea, subsided 7 recurrent falls 8 rib fractures, history of 9 seizure disorder probably alcoholic back in 2010 10 diverticulosis 11 acid reflux 12 debility seconds above-mentioned comorbidities 13 Left knee effusion, secondary to trauma him a or sores on the case. No signs of any acute infection. The joint is not hot or red. There is effusion however and high AURELIO hose and compression Thor wraps were applied. Plan: Patient is doing well, no acute complaints, no worsening shortness of breath, he responded well to systemic steroids, nebulized bronchodilators, and a single dose of IV Lasix. IV steroids have been transitioned to oral prednisone, and is currently being treated for evidence of urinary tract infection with cultures positive for Proteus vulgaris and Klebsiella oxytoca, currently on ciprofloxacin. From pulmonary perspective patient is doing well, and could be considered for discharge home today. I performed a history & physical examination of the patient and discussed their management with my nurse practitioner, Yennifer Irby. I reviewed the nurse practitioner's note and agree with the documented findings and plan of care. Lung sounds are positive for bibasilar crackles. The findings and the impression was discussed with the patient. I attest to the documentation by the nurse practitioner. Time with Patient: Less than 30
--- NOTE | 2018-02-10 14:55 | CDI ---
Last Revision, April 2017 Documentation Clarification Form Date: 02/10/2018 2:34:18 PM From: Tana RaeCronin, VINCENT, CCDS Admit Date: 01/28/2018 3:36:00 PM Patient Name: Addy Villalpando Visit Number: [id number] Discharge Date: 02/04/2018 ATTENTION: The Clinical Documentation Specialists (CDI) and [facility] Coding Staff appreciate your assistance in clarifying documentation. Please respond to the clarification below the line at the bottom and electronically sign. The CDI & [facility] Coding staff will review the response and follow-up if needed. Please note: Queries are made part of the Legal Health Record. If you have any questions, please contact the author of this message via ITS. Dr. Garfield Flynn MD: Per the pulmonary progress note 02/02: "Acute shortness of breath, likely related to pulmonary edema secondary to aggressive fluid resuscitation." History & Clinical Indicators: Patient was admitted with complaint of nausea, vomiting & diarrhea x36 hours. Recently admitted to [facility] with a DVT & PE and is status post a possible thrombectomy or TPA infusion. History of alcoholism & alcohol withdrawal with DTs, COPD & current smoker. Pulmonary consulted on 02/01 d/t worsening SOB, was in mild respiratory distress , bronchospastic & wheezy. Lab findings as of 02/02: Hgb 10.8, Pl Ct 577, Gluc 149, Total protein 5.8 & Albumin 2.5. Radiology findings: 01/28 CXR: chronic emphysematous change. 02/02 CXR: negative. Vital Signs: P 107, R 20, BP 101/73, PO 97 ra - 91 on 2Lnc on 01/30. Treatment: IV fluid bolus x1, IV Kcl, IV Lasix, IV Solumedrol, O2 In your professional opinion, please clarify the acuity of the pulmonary edema was: Acute pulmonary edema Chronic pulmonary edema Acute on chronic pulmonary edema Other, please specify Unable to determine Also please document your opinion regarding the status of the pulmonary edema as An expected outcome of the patient's fluid resuscitation An unexpected outcome of the patient's fluid resuscitation Inherent to the fluid resuscitation Other Unable to determine Acute pulmonary edemaAcute Acute pulmonary edema, An unexpected outcome of the patient 's fluid resuscitation [facility]
== END 2018-02-04 15:22 | disposition home health service (06) | DRG 391 ==
LOC: EC 11:59 → 6SEL 15:36 → 4MS4W 01-30 23:47
PROVIDERS: ADMIT Internal Medicine; ATTEND Internal Medicine
DX: K52.9 Noninfective gastroenteritis and colitis, unspecified (principal); J81.0 Acute pulmonary edema; F10.231 Alcohol dependence with withdrawal delirium; G91.9 Hydrocephalus, unspecified; J96.11 Chronic respiratory failure with hypoxia; J84.9 Interstitial pulmonary disease, unspecified; N39.0 Urinary tract infection, site not specified; G93.89 Other specified disorders of brain; J43.9 Emphysema, unspecified; E87.8 Other disorders of electrolyte and fluid balance, not elsewhere classified; K29.20 Alcoholic gastritis without bleeding; E87.6 Hypokalemia; G31.9 Degenerative disease of nervous system, unspecified; G40.909 Epilepsy, unspecified, not intractable, without status epilepticus; K57.90 Diverticulosis of intestine, part unspecified, without perforation or abscess without bleeding; K21.9 Gastro-esophageal reflux disease without esophagitis; M25.462 Effusion, left knee; R25.1 Tremor, unspecified; M19.91 Primary osteoarthritis, unspecified site; R29.6 Repeated falls; F17.210 Nicotine dependence, cigarettes, uncomplicated; Z71.6 Tobacco abuse counseling; Z71.41 Alcohol abuse counseling and surveillance of alcoholic; Z79.01 Long term (current) use of anticoagulants; Z79.899 Other long term (current) drug therapy; Z88.5 Allergy status to narcotic agent; Z90.49 Acquired absence of other specified parts of digestive tract; Z86.711 Personal history of pulmonary embolism; Z96.653 Presence of artificial knee joint, bilateral; Z86.010 Personal history of colon polyps; Z86.718 Personal history of other venous thrombosis and embolism; Z86.59 Personal history of other mental and behavioral disorders; Z87.81 Personal history of (healed) traumatic fracture; Z91.81 History of falling; Z82.49 Family history of ischemic heart disease and other diseases of the circulatory system; Z80.3 Family history of malignant neoplasm of breast; Z82.3 Family history of stroke; W19.XXXA Unspecified fall, initial encounter
CPT/HCPCS: 36415; 70450; 71045; 71046; 74018; 76705; 80048; 80053; 81003; 82140; 82150; 83690; 83735; 84132; 85025; 85652; 86140; 87040; 87070; 87077; 87086; 87186; 87205; 87324; 93005; 94640; 94760; 96361; 96374; 99285

== ENCOUNTER 2018-02-16 18:30 | Observation (INO) | payer MEDICARE ==
[2018-02-16] MEDS ORDERED: METOCLOPRAMIDE 5 MG/ML 2 ML VIAL IVP STA (19:04)
[2018-02-16] MEDS ORDERED: LORazepam 2 MG/ML INJ IV STA (19:06)
--- NOTE | 2018-02-16 19:08 | ED ---
General Adult HPI - General Chief complaint: Nausea/Vomiting/Diarrhea Stated complaint: vomiting Time Seen by Provider: 02/16/18 18:40 Source: patient, RN notes reviewed Mode of arrival: wheelchair Limitations: no limitations - History of Present Illness Initial comments: This is a 58-year-old male who has a past medical history significant for pulmonary embolism for which she is on Xarelto, alcoholism and he continues to drink, is a smoker, and has had severe withdrawal symptoms in the past. Patient also had hypokalemia and hypomagnesemia. Patient comes in today because he stopped drinking yesterday and has not drank at all today because he is been vomiting all morning. Patient states he only stopped vomiting about couple of hours ago. Patient denies any chest pain difficulty breathing shortness of breath. Patient denies any fever chills or cough. Patient denies headache patient denies numbness weakness. Patient denies lightheadedness dizziness or near syncopal episode. Patient denies any abdominal pain patient denies any diarrhea. Patient denies any dysuria hematuria urinary frequency. Patient denies any injury or trauma. - Related Data Home Medications Medication Instructions Recorded Confirmed Menthol [Biofreeze] 1 applic TOPICAL DAILY PRN 12/01/17 01/28/18 busPIRone HCl [Buspar] 10 mg PO BID PRN 12/01/17 01/28/18 Acetaminophen Tab [Tylenol] 650 mg PO Q6H PRN 01/28/18 01/28/18 Albuterol Nebulized [Ventolin 2.5 mg INHALATION RT-Q4H 01/28/18 01/28/18 Nebulized] Amino Acids/Protein Hydrolys 30 ml PO DAILY 01/28/18 01/28/18 [Pro-Stat Supplement] Aspercreme W/ Lidocain Cream 4 1 applic TOPICAL Q8H PRN 01/28/18 01/28/18 Joslyn-[place] Susp 200-200-20/5ml 30 ml PO Q6H PRN 01/28/18 01/28/18 Hydrocodone/Acetaminophen [[place] 1 tab PO Q8H PRN 01/28/18 01/28/18 5-325] Kaopectate Suspensi 202mg/15ml 404 mg PO Q4H PRN 01/28/18 01/28/18 Magnesium 400 mg PO BID 01/28/18 01/28/18 Melatonin 3 mg PO HS PRN 01/28/18 01/28/18 Omeprazole 20 mg PO DAILY 01/28/18 01/28/18 Promethazine [Phenergan] 12.5 mg PO Q8HR PRN 01/28/18 01/28/18 Rivaroxaban [Xarelto] 20 mg PO HS 01/28/18 01/28/18 Thiamine HCl [Vitamin B-1] 100 mg PO HS 01/28/18 01/28/18 Previous Rx's Medication Instructions Recorded Ciprofloxacin HCl [Cipro] 500 mg PO BID 7 Days #14 tab 02/04/18 Nicotine 21Mg/24Hr Patch [Habitrol] 1 patch TRANSDERM DAILY #30 patch 02/04/18 predniSONE 10 mg PO DIRECTED #30 tab 02/04/18 Allergies Allergy/AdvReac Type Severity Reaction Status Date / Time tramadol AdvReac Mild Itching Verified 02/16/18 18:44 Review of Systems ROS Statement: Those systems with pertinent positive or pertinent negative responses have been documented in the HPI. ROS Other: All systems not noted in ROS Statement are negative. Past Medical History Past Medical History: GERD/Reflux, Osteoarthritis (OA), Seizure Disorder, Syncope Additional Past Medical History / Comment(s): Alcoholism, recent hospitalization for bilateral pulmonary embolism with clot occluding the left pulmonary artery and evidence of right ventricular strain pattern maintained on anticoagulation, COPD, chronic hypoxic respiratory failure, FEV1 of 51% of predicted with chronic hypoxic respiratory failure, chronic smoker carries more than on the PACU smoking history, alcoholism, history of delirium tremens, history of recurrent falls, history of rib fractures related to falls, GERD, diverticulosis, seizure disorder, osteoarthritis, history of small bowel obstruction secondary to incarcerated right inguinal hernia, History of Any Multi-Drug Resistant Organisms: None Reported Past Surgical History: Appendectomy, Heart Catheterization, Hernia Repair, Joint Replacement, Orthopedic Surgery, Tonsillectomy Additional Past Surgical History / Comment(s): Colonoscopies and polypectomies, 10/21/15 normal cardiac cath, multiple inguinal hernia surg., bilateral knee arthroscopies and pt states bilateral knee arthroplasties. Past Anesthesia/Blood Transfusion Reactions: No Reported Reaction Past Psychological History: Anxiety, Depression Smoking Status: Current every day smoker Past Alcohol Use History: Daily Past Drug Use History: None Reported - Past Family History Father Family Medical History: Coronary Artery Disease (CAD), Myocardial Infarction (DC ) Additional Family Medical History / Comment(s): Father of a DC at the age of 73 yrs. Mother Family Medical History: Cancer Additional Family Medical History / Comment(s): Mother had breast cancer. She is 81 yrs old and now healthy. General Exam - General Exam Comments Initial Comments: GENERAL: Patient is well-developed and well-nourished. Patient is nontoxic and well- hydrated and is in mild distress. ENT: Neck is soft and supple. No significant lymphadenopathy is noted. Oropharynx is clear. Moist mucous membranes. Neck has full range of motion without eliciting any pain. EYES: The sclera were anicteric and conjunctiva were pink and moist. Extraocular movements were intact and pupils were equal round and reactive to light. Eyelids were unremarkable. PULMONARY: Unlabored respirations. Good breath sounds bilaterally. No audible rales rhonchi or wheezing was noted. CARDIOVASCULAR: There is a regular rate and rhythm without any murmurs gallops or rubs. ABDOMEN: Soft and nontender with normal bowel sounds. No palpable organomegaly was noted. There is no palpable pulsatile mass. SKIN: Skin is clear with no lesions or rashes and otherwise unremarkable. NEUROLOGIC: Patient is alert and oriented x3. Cranial nerves II through XII are grossly intact. Motor and sensory are also intact. Normal speech, volume and content. Symmetrical smile. MUSCULOSKELETAL: Normal extremities with adequate strength and full range of motion. 1+ edema to the ankles bilaterally LYMPHATICS: No significant lymphadenopathy is noted PSYCHIATRIC: Normal psychiatric evaluation. Limitations: no limitations Course Vital Signs 02/16/18 18:42 Temperature 97.7 F Pulse Rate 108 H Respiratory 18 Rate Blood Pressure 143/91 O2 Sat by Pulse 95 Oximetry Medical Decision Making - Medical Decision Making EKG shows sinus tachycardia at 101 bpm NE interval 120 QRS 74 Q-T intervals 4: 30 QTC is 557. Patient also has some T-wave inversions in leads V1 and V2 V3 and V4. - Lab Data Result diagrams: 02/16/18 19:51 02/16/18 19:51 Lab Results 02/16/18 02/16/18 02/16/18 Range/Units 19:51 19:51 19:51 WBC 18.8 H (3.8-10.6) k/uL RBC 3.78 L (4.30-5.90) m/uL Hgb 12.5 L (13.0-17.5) gm/dL Hct 39.4 (39.0-53.0) % MCV 104.3 H (80.0-100.0) fL MCH 33.0 (25.0-35.0) pg MCHC 31.6 (31.0-37.0) g/dL RDW 17.2 H (11.5-15.5) % Plt Count 498 H (150-450) k/uL Neutrophils % 86 % Lymphocytes % 7 % Monocytes % 5 % Eosinophils % 1 % Basophils % 0 % Neutrophils # 16.2 H (1.3-7.7) k/uL Lymphocytes # 1.3 (1.0-4.8) k/uL Monocytes # 1.0 (0-1.0) k/uL Eosinophils # 0.1 (0-0.7) k/uL Basophils # 0.0 (0-0.2) k/uL Hypochromasia Moderate Anisocytosis Slight Macrocytosis Moderate PT 11.1 (9.0-12.0) sec INR 1.1 (<1.2) APTT 29.3 (22.0-30.0) sec Sodium 138 (137-145) mmol/L Potassium 4.3 (3.5-5.1) mmol/L Chloride 106 (98-107) mmol/L Carbon Dioxide 24 (22-30) mmol/L Anion Gap 8 mmol/L BUN 11 (9-20) mg/dL Creatinine 0.59 L (0.66-1.25) mg/dL Est GFR (CKD-EPI)AfAm >90 (>60 ml/min/1.73 sqM) Est GFR (CKD-EPI)NonAf >90 (>60 ml/min/1.73 sqM) Glucose 95 (74-99) mg/dL Calcium 8.4 (8.4-10.2) mg/dL Magnesium 1.8 (1.6-2.3) mg/dL Total Bilirubin 1.2 (0.2-1.3) mg/dL AST 23 (17-59) U/L ALT 12 L (21-72) U/L Alkaline Phosphatase 141 H (38-126) U/L Troponin I (0.000-0.034) ng/mL Total Protein 5.7 L (6.3-8.2) g/dL Albumin 2.8 L (3.5-5.0) g/dL Serum Alcohol <10 mg/dL 02/16/18 Range/Units 19:51 WBC (3.8-10.6) k/uL RBC (4.30-5.90) m/uL Hgb (13.0-17.5) gm/dL Hct (39.0-53.0) % MCV (80.0-100.0) fL MCH (25.0-35.0) pg MCHC (31.0-37.0) g/dL RDW (11.5-15.5) % Plt Count (150-450) k/uL Neutrophils % % Lymphocytes % % Monocytes % % Eosinophils % % Basophils % % Neutrophils # (1.3-7.7) k/uL Lymphocytes # (1.0-4.8) k/uL Monocytes # (0-1.0) k/uL Eosinophils # (0-0.7) k/uL Basophils # (0-0.2) k/uL Hypochromasia Anisocytosis Macrocytosis PT (9.0-12.0) sec INR (<1.2) APTT (22.0-30.0) sec Sodium (137-145) mmol/L Potassium (3.5-5.1) mmol/L Chloride (98-107) mmol/L Carbon Dioxide (22-30) mmol/L Anion Gap mmol/L BUN (9-20) mg/dL Creatinine (0.66-1.25) mg/dL Est GFR (CKD-EPI)AfAm (>60 ml/min/1.73 sqM) Est GFR (CKD-EPI)NonAf (>60 ml/min/1.73 sqM) Glucose (74-99) mg/dL Calcium (8.4-10.2) mg/dL Magnesium (1.6-2.3) mg/dL Total Bilirubin (0.2-1.3) mg/dL AST (17-59) U/L ALT (21-72) U/L Alkaline Phosphatase (38-126) U/L Troponin I <0.012 (0.000-0.034) ng/mL Total Protein (6.3-8.2) g/dL Albumin (3.5-5.0) g/dL Serum Alcohol mg/dL Disposition Clinical Impression: Alcohol abuse, Leukocytosis, Acute vomiting Disposition: ADMITTED IP TO THIS HOSP Referrals: Claudette Edward DO [Primary Care Provider] - 1-2 days Time of Disposition: 21:01
[2018-02-16] MEDS ORDERED: SODIUM CHLORIDE 0.9% 1,000 ML with MVI, ADULT NO.4 WITH VIT K 10 ML, THIAMINE 100 MG, F... IV ONE ×4 (19:30)
[2018-02-16 20:01] LABS: Anisocytosis Slight; Basophils % (A) 0 %; Eosinophils # (A) 0.1 k/uL (0-0.7); Eosinophils % (A) 1 %; HCT 39.4 % (39.0-53.0); HGB 12.5 gm/dL (13.0-17.5); Hypochromasia Moderate; Lymphocytes # (A) 1.3 k/uL (1.0-4.8); Lymphocytes % (A) 7 %; MCHC 31.6 g/dL (31.0-37.0); MCV 104.3 fL (80.0-100.0); Macrocytosis Moderate; Mean Platelet Volume 6.7; Monocytes % (A) 5 %; Neutrophils # (A) 16.2 k/uL (1.3-7.7); Neutrophils % (A) 86 %; Platelet Count 498 k/uL (150-450); RBC 3.78 m/uL (4.30-5.90); RDW 17.2 % (11.5-15.5); WBC 18.8 k/uL (3.8-10.6)
[2018-02-16 20:13] LABS: INR 1.1 (<1.2); Partial Thromboplastin Time 29.3 sec (22.0-30.0); Prothrombin Time 11.1 sec (9.0-12.0)
[2018-02-16 20:18] LABS: ALT 12 U/L (21-72); AST 23 U/L (17-59); Albumin 2.8 g/dL (3.5-5.0); Alcohol <10 mg/dL; Alkaline Phosphatase 141 U/L (38-126); Anion Gap 8 mmol/L; Blood Urea Nitrogen 11 mg/dL (9-20); Calcium 8.4 mg/dL (8.4-10.2); Carbon Dioxide 24 mmol/L (22-30); Chloride 106 mmol/L (98-107); Glucose 95 mg/dL (74-99); Magnesium 1.8 mg/dL (1.6-2.3); Potassium 4.3 mmol/L (3.5-5.1); Sodium 138 mmol/L (137-145); Total Bilirubin 1.2 mg/dL (0.2-1.3); Total Protein 5.7 g/dL (6.3-8.2)
--- NOTE | 2018-02-16 20:49 | XR ---
EXAMINATION TYPE: XR chest 2V DATE OF EXAM: 02/16/2018 COMPARISON: NONE HISTORY: Difficulty breathing TECHNIQUE: Frontal and lateral views of the chest are obtained. FINDINGS: There is some coarsening of interstitial markings. There is fracture left lateral eighth r ib. There is no pneumothorax. Heart and mediastinum are normal. There is no pleural effusion. There a re chest leads. IMPRESSION: Coarse lung markings are increased compared to old exam. 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
[2018-02-16] MEDS ORDERED: SODIUM CHLORIDE 0.9% 1,000 ML IV ONE (21:02)
[2018-02-16] MEDS ORDERED: LORazepam 2 MG/ML INJ IV PRN ×2 (21:03)
[2018-02-16] MEDS ORDERED: THIAMINE 100 MG/ML 2 ML VIAL IM STA (21:03)
[2018-02-16 21:07] LABS: Amorphous Sediment,Urine Rare /hpf; Appearance,Urine Clear (Clear); Bilirubin,Urine Negative (Negative); Blood,Urine Negative (Negative); Color,Urine Yellow; Glucose,Urine (UA) Negative (Negative); Ketones,Urine 2+ (Negative); Leukocyte Esterase,Urine Negative (Negative); Mucus,Urine Few /hpf; Nitrite,Urine Negative (Negative); Protein,Urine 1+ (Negative); RBC,Urine 2 /hpf (0-5); Specific Gravity,Urine 1.018 (1.001-1.035); Squamous Epithelial Cell,Urine <1 /hpf (0-4); WBC,Urine 3 /hpf (0-5)
[2018-02-16 21:58] LABS: Creatine Kinase MB 1.1 ng/mL (0.0-2.4)
[2018-02-16] MEDS ORDERED: ONDANSETRON 4 MG TAB PO PRN (22:30)
[2018-02-16] MEDS: NICOTINE 21MG/24HR PATCH TRANSDERM SCH (23:13)
[2018-02-16] MEDS: HYDROcodone/APAP 5-325MG 1 EACH TAB PO PRN (23:14)
[2018-02-16] MEDS: METOCLOPRAMIDE 5 MG/ML 2 ML VIAL IVP SCH (23:14)
[2018-02-16] MEDS: MAGNESIUM OXIDE 400 MG TAB PO SCH (23:15)
[2018-02-16] MEDS: RIVAROXABAN 20 MG TAB PO SCH (23:25)
[2018-02-16] MEDS: QUEtiapine 100 MG TAB PO SCH (23:25)
[2018-02-17] MEDS: ALBUTEROL NEBULIZED 2.5 MG/3 ML INHALATION SCH ×6 (01:05→20:58)
[2018-02-17] MEDS: METOCLOPRAMIDE 5 MG/ML 2 ML VIAL IVP SCH ×2 (06:32→11:10)
[2018-02-17] MEDS: HYDROcodone/APAP 5-325MG 1 EACH TAB PO PRN ×3 (06:38→20:07)
[2018-02-17 07:43] LABS: Anisocytosis Slight; HGB 10.8 gm/dL (13.0-17.5); Hypochromasia Moderate; MCH 33.5 pg (25.0-35.0); MCHC 31.7 g/dL (31.0-37.0); MCV 105.5 fL (80.0-100.0); Macrocytosis Marked; Mean Platelet Volume 7.1; Platelet Count 402 k/uL (150-450); RBC 3.22 m/uL (4.30-5.90); RDW 17.8 % (11.5-15.5)
[2018-02-17 07:50] LABS: ALT 20 U/L (21-72); AST 15 U/L (17-59); Albumin 2.5 g/dL (3.5-5.0); Alkaline Phosphatase 112 U/L (38-126); Anion Gap 5 mmol/L; Blood Urea Nitrogen 11 mg/dL (9-20); Calcium 7.7 mg/dL (8.4-10.2); Carbon Dioxide 26 mmol/L (22-30); Chloride 108 mmol/L (98-107); Glucose 81 mg/dL (74-99); Potassium 3.7 mmol/L (3.5-5.1); Sodium 139 mmol/L (137-145); Total Protein 5.3 g/dL (6.3-8.2)
[2018-02-17] MEDS: NICOTINE 21MG/24HR PATCH TRANSDERM SCH (08:46)
[2018-02-17] MEDS: predniSONE 10 MG TAB PO SCH (08:46)
[2018-02-17] MEDS: MAGNESIUM OXIDE 400 MG TAB PO SCH ×2 (08:46→20:07)
[2018-02-17] MEDS: PANTOPRAZOLE 40 MG TABLET PO SCH (08:46)
[2018-02-17] MEDS ORDERED: RIVAROXABAN 20 MG TAB PO SCH (09:00)
[2018-02-17] MEDS: busPIRone HCl 10 MG TAB PO PRN ×2 (09:13→20:37)
[2018-02-17] MEDS: LORazepam 2 MG/ML INJ IV PRN ×3 (11:09→23:34)
[2018-02-17] MEDS: THIAMINE 100 MG TAB PO SCH ×2 (11:09→17:07)
[2018-02-17] MEDS ORDERED: FOLIC ACID 1 MG TAB PO SCH (12:00)
--- NOTE | 2018-02-17 14:11 | P.HPIM ---
History of Present Illness H&P Date: 02/17/18 Chief Complaint: Nausea and vomiting This is a 58-year-old male with a known past medical history of alcohol abuse, PE and DVT on Xarelto and nicotine dependence. Patient presents to the emergency room with complaints of nausea and vomiting. His last drink was Wednesday morning. There were concerns about him possibly going into alcohol. He has had issues with withdrawal symptoms in the past requiring hospitalization. Patient has had no further vomiting. He's had a few small loose stools. Stool for C. diff has been ordered. Patient denies any chest pain or shortness of breath. Was started on a regular diet this afternoon. Lunch was his first regular meal. He was tachycardic with a heart rate of 101. He has been requiring Ativan. Alcohol level is less than 10. White count on admission 18.8 down to 11. Hemoglobin 12.5 down to 10.8. Review of Systems Please refer to HPI otherwise unremarkable Past Medical History Past Medical History: Deep Vein Thrombosis (DVT), GERD/Reflux, Osteoarthritis ( OA), Pulmonary Embolus (PE), Seizure Disorder, Syncope Additional Past Medical History / Comment(s): Alcoholism, recent hospitalization for bilateral pulmonary embolism with clot occluding the left pulmonary artery and evidence of right ventricular strain pattern maintained on anticoagulation, COPD, chronic hypoxic respiratory failure, FEV1 of 51% of predicted with chronic hypoxic respiratory failure, chronic smoker carries more than on the PACU smoking history, alcoholism, history of delirium tremens, history of recurrent falls, history of rib fractures related to falls, GERD, diverticulosis, seizure disorder, osteoarthritis, history of small bowel obstruction secondary to incarcerated right inguinal hernia, History of Any Multi-Drug Resistant Organisms: None Reported Past Surgical History: Appendectomy, Heart Catheterization, Hernia Repair, Joint Replacement, Orthopedic Surgery, Tonsillectomy Additional Past Surgical History / Comment(s): Colonoscopies and polypectomies, 10/21/15 normal cardiac cath, multiple inguinal hernia surg., bilateral knee arthroscopies and pt states bilateral knee arthroplasties. Past Anesthesia/Blood Transfusion Reactions: No Reported Reaction Past Psychological History: Anxiety, Depression Smoking Status: Current every day smoker Past Alcohol Use History: Daily Additional Past Alcohol Use History / Comment(s): Pt states he currently drinks 2-25 ounce cans of beer per day wed thru (drank heavier in past). He states he stopped drinking liquor. Past Drug Use History: None Reported Additional Drug Use History / Comment(s): Pt states in the past he had used cocaine but none for 20years. He denies ever abusing prescription drugs. - Past Family History Father Family Medical History: Coronary Artery Disease (CAD), Myocardial Infarction (OR ) Additional Family Medical History / Comment(s): Father of a OR at the age of 73 yrs. Mother Family Medical History: Cancer Additional Family Medical History / Comment(s): Mother had breast cancer. She is 81 yrs old and now healthy. Medications and Allergies Home Medications Medication Instructions Recorded Confirmed Type busPIRone HCl [Buspar] 10 mg PO BID PRN 12/01/17 02/16/18 History Albuterol Nebulized [Ventolin 2.5 mg INHALATION RT-Q4H 01/28/18 02/16/18 History Nebulized] Magnesium 400 mg PO BID 01/28/18 02/16/18 History Omeprazole 20 mg PO DAILY 01/28/18 02/16/18 History Thiamine HCl [Vitamin B-1] 100 mg PO HS 01/28/18 02/16/18 History Folic Acid 1 mg PO DAILY 02/16/18 02/16/18 History Ondansetron [Zofran] 4 mg PO TID PRN 02/16/18 02/16/18 History QUEtiapine FUMARATE 100 mg PO HS 02/16/18 02/16/18 History Rivaroxaban [Xarelto] 20 mg PO DAILY 02/16/18 02/16/18 History predniSONE See Taper PO DAILY 02/16/18 02/17/18 History Potassium Chloride [Klor-Con 20] 20 meq PO BID 02/17/18 02/17/18 History Allergies Allergy/AdvReac Type Severity Reaction Status Date / Time tramadol AdvReac Mild Itching Verified 02/16/18 22:05 Physical Exam Vitals: Vital Signs Temp Pulse Pulse Resp BP BP Pulse Ox 02/17/18 13:39 78 02/17/18 13:28 76 02/17/18 08:05 78 02/17/18 07:55 77 02/17/18 07:53 18 02/17/18 07:20 97.5 F L 110 H 18 121/81 92 L 02/17/18 03:21 18 02/16/18 23:05 98.4 F 101 H 18 145/90 93 L 02/16/18 22:25 18 02/16/18 21:42 97.8 F 104 H 18 144/89 94 L 02/16/18 21:23 97.8 F 109 H 20 147/87 94 L 02/16/18 18:42 97.7 F 108 H 18 143/91 95 Intake and Output 02/16/18 02/17/18 02/17/18 22:59 06:59 14:59 Intake Total 1500 120 Balance 1500 120 Intake: IV 1500 Sodium Chloride 0.9% 1, 500 000 ml @ 100 mls/hr IV . Q10H ONE Rx#:[id number] Sodium Chloride 0.9% 1, 1000 000 ml @ 250 mls/hr IV . Q4H3M ONE with Mvi, Adult No.4 with Vit K 10 ml with Thiamine 100 mg with Folic Acid 1 mg Rx#: [id number] Oral 120 Other: Voiding Method Toilet Toilet Toilet # Voids 4 Weight 72.6 kg Head normocephalic Neck supple Lungs clear to auscultation bilaterally no wheezing or crackles Heart regular rate and rhythm S1-S2, no rub or gallop Abdomen is soft nontender nondistended positive bowel sounds no hepatosplenomegaly Extremities no edema Neuro alert and orientated to 3 fine hand tremor bilaterally Results CBC & Chem 7: 02/17/18 06:48 02/17/18 06:48 Labs: Abnormal Lab Results - Last 24 Hours (Table) 02/16/18 02/16/18 02/16/18 Range/Units 19:17 19:51 19:51 WBC 18.8 H (3.8-10.6) k/uL RBC 3.78 L (4.30-5.90) m/uL Hgb 12.5 L (13.0-17.5) gm/dL Hct (39.0-53.0) % MCV 104.3 H (80.0-100.0) fL RDW 17.2 H (11.5-15.5) % Plt Count 498 H (150-450) k/uL Neutrophils # 16.2 H (1.3-7.7) k/uL Chloride (98-107) mmol/L Creatinine 0.59 L (0.66-1.25) mg/dL Calcium (8.4-10.2) mg/dL AST (17-59) U/L ALT 12 L (21-72) U/L Alkaline Phosphatase 141 H (38-126) U/L Total Creatine Kinase 26 L (55-170) U/L Total Protein 5.7 L (6.3-8.2) g/dL Albumin 2.8 L (3.5-5.0) g/dL Urine Protein (Negative) Urine Ketones (Negative) Amorphous Sediment (None) /hpf Urine Mucus (None) /hpf 02/16/18 02/17/18 02/17/18 Range/Units 20:45 06:48 06:48 WBC 11.0 H (3.8-10.6) k/uL RBC 3.22 L (4.30-5.90) m/uL Hgb 10.8 L (13.0-17.5) gm/dL Hct 34.0 L (39.0-53.0) % MCV 105.5 H (80.0-100.0) fL RDW 17.8 H (11.5-15.5) % Plt Count (150-450) k/uL Neutrophils # (1.3-7.7) k/uL Chloride 108 H (98-107) mmol/L Creatinine (0.66-1.25) mg/dL Calcium 7.7 L (8.4-10.2) mg/dL AST 15 L (17-59) U/L ALT 20 L (21-72) U/L Alkaline Phosphatase (38-126) U/L Total Creatine Kinase (55-170) U/L Total Protein 5.3 L (6.3-8.2) g/dL Albumin 2.5 L (3.5-5.0) g/dL Urine Protein 1+ H (Negative) Urine Ketones 2+ H (Negative) Amorphous Sediment Rare H (None) /hpf Urine Mucus Few H (None) /hpf Thrombosis Risk Factor Assmnt - Choose All That Apply Any of the Below Risk Factors Present?: Yes Each Factor Represents 1 point: Abnormal pulmonary function (COPD), Age 41-60 years Other Risk Factors: Yes Each Risk Factor Represents 3 Points: History of DVT/PE Other congenital or acquired thrombophilia - If yes, enter type in comment: No Thrombosis Risk Factor Assessment Total Risk Factor Score: 5 Thrombosis Risk Factor Assessment Level: High Risk Assessment and Plan Assessment: 1. Nausea and vomiting: Possibly related to alcohol withdrawal or a gastroenteritis. Continue with IV fluids. Continue Zofran and Protonix. We' ll discontinue Reglan at this time 2. Alcohol abuse with possible alcohol withdrawal. Continue with the [facility] protocol with Ativan, multivitamin and thiamine. Place patient on telemetry monitoring 3. History of PE and DVT continue Xarelto 4. Nicotine dependence: Discussed smoking cessation for greater than 3 minutes. Continue nicotine patch 5. Leukocytosis: Urinalysis negative. Chest x-ray showing no pneumonia. Possibly related to alcohol withdrawal or a gastroenteritis. Continue to monitor. Improving with no antibiotics. 6. Diarrhea check stool for C. diff GI prophylaxis Protonix and DVT prophylaxis Time with Patient: Greater than 30 (Greater than 60% of the total time spent in counseling and coordination of care.I performed an examination of the patient and discussed their management with the physician Supervisor Curing Room. I have reviewed the Physician Supervisor Curing Room's notes and agree with the documented findings and plan of care)
[2018-02-17] MEDS: SODIUM CHLORIDE 0.9% 1,000 ML IV SCH (14:13)
[2018-02-17] MEDS ORDERED: LORazepam 0.5 MG TAB PO PRN (15:13)
[2018-02-17] MEDS ORDERED: LORazepam 0.5 MG TAB PO SCH (16:00)
[2018-02-17] MEDS: RIVAROXABAN 20 MG TAB PO SCH (17:07)
[2018-02-17 19:50] LABS: Iron Saturation 40.47 (15.00-50.00)
[2018-02-17] MEDS: ONDANSETRON 4 MG/2 ML VIAL IVP PRN (20:06)
[2018-02-17] MEDS: QUEtiapine 100 MG TAB PO SCH (20:08)
[2018-02-17] MEDS ORDERED: THIAMINE 100 MG TAB PO SCH (21:00)
[2018-02-18] MEDS: ALBUTEROL NEBULIZED 2.5 MG/3 ML INHALATION SCH ×4 (01:03→11:08)
[2018-02-18] MEDS: ONDANSETRON 4 MG/2 ML VIAL IVP PRN (03:41)
[2018-02-18] MEDS: LORazepam 2 MG/ML INJ IV PRN ×2 (03:41→08:14)
[2018-02-18] MEDS: HYDROcodone/APAP 5-325MG 1 EACH TAB PO PRN (05:21)
[2018-02-18 07:47] LABS: ALT 12 U/L (21-72); AST 16 U/L (17-59); Albumin 2.7 g/dL (3.5-5.0); Alkaline Phosphatase 102 U/L (38-126); Anion Gap 9 mmol/L; Blood Urea Nitrogen 6 mg/dL (9-20); Carbon Dioxide 23 mmol/L (22-30); Chloride 108 mmol/L (98-107); Glucose 89 mg/dL (74-99); Potassium 3.5 mmol/L (3.5-5.1); Sodium 140 mmol/L (137-145); Total Bilirubin 0.4 mg/dL (0.2-1.3); Total Protein 5.6 g/dL (6.3-8.2)
[2018-02-18 08:08] LABS: Anisocytosis Slight; HCT 35.6 % (39.0-53.0); HGB 10.9 gm/dL (13.0-17.5); Hypochromasia Marked; MCHC 30.6 g/dL (31.0-37.0); Macrocytosis Marked; Mean Platelet Volume 6.5; Platelet Count 375 k/uL (150-450); RDW 17.6 % (11.5-15.5); WBC 12.7 k/uL (3.8-10.6)
[2018-02-18] MEDS: PANTOPRAZOLE 40 MG TABLET PO SCH (08:14)
[2018-02-18] MEDS: NICOTINE 21MG/24HR PATCH TRANSDERM SCH (08:14)
[2018-02-18] MEDS: predniSONE 10 MG TAB PO SCH (08:14)
[2018-02-18] MEDS: MAGNESIUM OXIDE 400 MG TAB PO SCH (08:14)
[2018-02-18 08:15] VITALS: BP 130/88; RESP 18; TEMP 97.4
[2018-02-18] MEDS: SODIUM CHLORIDE 0.9% 1,000 ML IV SCH (08:15)
[2018-02-18 08:44] LABS: Band Neutrophils % 1 %; Eosinophils # (M) 0.13 k/uL (0-0.7); Lymphocytes # (M) 1.91 k/uL (1.0-4.8); Monocytes # (M) 0.76 k/uL (0-1.0); Neutrophils % (M) 77 %; Nucleated Red Blood Cells 0 /100 WBC (0-0); Total Cells Counted 100
[2018-02-18] MEDS ORDERED: POTASSIUM CHLORIDE ER 20 MEQ TAB.ER PO STA (10:54)
[2018-02-18 11:23] VITALS: PULSE 96
--- NOTE | 2018-02-18 11:48 | P.DS ---
Providers Date of admission: 02/16/18 21:02 Expected date of discharge: 02/18/18 Attending physician: Benita Holland Primary care physician: Claudette [facility] Course: Discharge diagnosis 1. Nausea and vomiting: Possibly related to alcohol withdrawal or a gastroenteritis. Improved. Tolerating diet. 2. Alcohol abuse with possible alcohol withdrawal. Will give patient Ativan 0.5 mg 1 every 8 hours as needed for anxiety dispensing 3 days 3. History of PE and DVT continue Xarelto 4. Nicotine dependence: Discussed smoking cessation for greater than 3 minutes. Continue nicotine patch 5. Leukocytosis: Urinalysis negative. Chest x-ray showing no pneumonia. Possibly related to alcohol withdrawal or a gastroenteritis. Continue to monitor. Improving with no antibiotics. Also patient is on prednisone 6. Diarrhea resolved. Unable to check stool for C. diff 7. Sinus tachycardia likely related to the alcohol withdrawal and his anxiety. Add metoprolol succinate 25 mg daily 8. Anemia with no evidence of bleeding. Possibly diluted from the IV fluids. Hemoglobin at discharge 10.9. Which is up from yesterday at 10.8. Recommend repeating a CBC in 1 week. And further workup recommended if anemia continues to persist Hospital course This is a 58-year-old male with a known past medical history of alcohol abuse, PE and DVT on Xarelto and nicotine dependence. Patient presents to the emergency room with complaints of nausea and vomiting. His last drink was Wednesday. There were concerns about him possibly going into alcohol. He has had issues with withdrawal symptoms in the past requiring hospitalization. Patient has had no further vomiting. He's had a few small loose stools. Stool for C. diff has been ordered. Patient denies any chest pain or shortness of breath. Was started on a regular diet this afternoon. Lunch was his first regular meal. He was tachycardic with a heart rate of 101. He has been requiring Ativan. Alcohol level is less than 10. White count on admission 18.8 down to 11. Hemoglobin 12.5 down to 10.8. patient's symptoms improved. Likely his symptoms were related to alcohol withdrawal. There may have been underlying gastroenteritis. He was given IV fluids and Zofran and Protonix. Nausea vomiting have resolved. He has tolerated diet. Diarrhea has also resolved. White count at discharge 12.7. However, he has been receiving prednisone which she takes at home. as stated above patient is showing improvement. He is eager for discharge home due to his son's health issues. He has not required any IV Ativan per the [facility] protocol. The patient is requesting the IV Ativan for his anxiety. Patient will be given a 3 day prescription of oral Ativan. We'll have him follow up with his PCP within the next week. Encouraged patient to refrain from any alcohol use as well as discussed smoking cessation. Patient declined consult for social work and alcohol rehab programs. Patient states he has been through this before and knows of the facilities and how to contact them. Patient is medically stable for discharge. We'll have him follow up with Dr. Edward in 1 week I performed an examination of the patient and discussed their management with the physician Ski Tow Operator. I have reviewed the Physician Ski Tow Operator's notes and agree with the documented findings and plan of care Patient Condition at Discharge: Stable Plan - Discharge Summary Discharge Rx Participant: No New Discharge Prescriptions: New LORazepam [Ativan] 0.5 mg PO Q8HR PRN #9 tab PRN Reason: Anxiety Metoprolol Succinate [Toprol XL] 25 mg PO DAILY #30 tab Multivitamins, Thera [Multivitamin (formulary)] 1 each PO DAILY@1200 #30 tab Continue busPIRone HCl [Buspar] 10 mg PO BID PRN PRN Reason: Anxiety Albuterol Nebulized [Ventolin Nebulized] 2.5 mg INHALATION RT-Q4H Magnesium 400 mg PO BID Omeprazole 20 mg PO DAILY Thiamine HCl [Vitamin B-1] 100 mg PO HS Folic Acid 1 mg PO DAILY Ondansetron [Zofran] 4 mg PO TID PRN PRN Reason: Nausea And Vomiting QUEtiapine FUMARATE 100 mg PO HS predniSONE See Taper PO DAILY Rivaroxaban [Xarelto] 20 mg PO DAILY Potassium Chloride [Klor-Con 20] 20 meq PO BID Discharge Medication List busPIRone HCl [Buspar] 10 mg PO BID PRN 12/01/17 [History] Albuterol Nebulized [Ventolin Nebulized] 2.5 mg INHALATION RT-Q4H 01/28/18 [ History] Magnesium 400 mg PO BID 01/28/18 [History] Omeprazole 20 mg PO DAILY 01/28/18 [History] Thiamine HCl [Vitamin B-1] 100 mg PO HS 01/28/18 [History] Folic Acid 1 mg PO DAILY 02/16/18 [History] Ondansetron [Zofran] 4 mg PO TID PRN 02/16/18 [History] QUEtiapine FUMARATE 100 mg PO HS 02/16/18 [History] Rivaroxaban [Xarelto] 20 mg PO DAILY 02/16/18 [History] predniSONE See Taper PO DAILY 02/16/18 [History] Potassium Chloride [Klor-Con 20] 20 meq PO BID 02/17/18 [History] LORazepam [Ativan] 0.5 mg PO Q8HR PRN #9 tab 02/18/18 [Rx] Metoprolol Succinate [Toprol XL] 25 mg PO DAILY #30 tab 02/18/18 [Rx] Multivitamins, Thera [Multivitamin (formulary)] 1 each PO DAILY@1200 #30 tab [Rx] Follow up Appointment(s)/Referral(s): Claudette Edward DO [Primary Care Provider] - 1 Week Ambulatory/Diagnostic Orders: Complete Blood Count w/diff [LAB.AMB] Time Frame: 1 Week, Location: None Selected Complete Blood Count w/diff [LAB.AMB] Time Frame: 1 Week, Location: None Selected Activity/Diet/Wound Care/Special Instructions: Diet: regular Activity: as tolerated No alcohol Discharge Disposition: HOME SELF-CARE
[2018-02-18] MEDS ORDERED: MULTIVITAMINS, THERA 1 EACH TAB PO SCH (12:00)
== END 2018-02-18 11:57 | disposition home or self-care (01) ==
LOC: EC 18:30 → 3OBS 21:02
PROVIDERS: ADMIT Internal Medicine; ATTEND Internal Medicine
DX: R11.2 Nausea with vomiting, unspecified (principal); F10.20 Alcohol dependence, uncomplicated; D64.9 Anemia, unspecified; F41.9 Anxiety disorder, unspecified; F32.9 Major depressive disorder, single episode, unspecified; K21.9 Gastro-esophageal reflux disease without esophagitis; G40.909 Epilepsy, unspecified, not intractable, without status epilepticus; M19.90 Unspecified osteoarthritis, unspecified site; J44.9 Chronic obstructive pulmonary disease, unspecified; J96.11 Chronic respiratory failure with hypoxia; K57.90 Diverticulosis of intestine, part unspecified, without perforation or abscess without bleeding; R00.0 Tachycardia, unspecified; R19.7 Diarrhea, unspecified; D72.829 Elevated white blood cell count, unspecified; E87.6 Hypokalemia; E83.42 Hypomagnesemia; F17.200 Nicotine dependence, unspecified, uncomplicated; Z79.01 Long term (current) use of anticoagulants; Z79.899 Other long term (current) drug therapy; Z88.5 Allergy status to narcotic agent; Z86.711 Personal history of pulmonary embolism; R29.6 Repeated falls; Z86.718 Personal history of other venous thrombosis and embolism; Z91.81 History of falling; Z87.81 Personal history of (healed) traumatic fracture; Z96.653 Presence of artificial knee joint, bilateral; Z82.49 Family history of ischemic heart disease and other diseases of the circulatory system; Z80.3 Family history of malignant neoplasm of breast
CPT/HCPCS: 96361 ×2; 96375 ×2; 96376 ×3; 96365; 96366; 96372; 99285; 36415; 94640 ×4; 93005; 80053 ×3; 82607; 82728; 82550; 82553; 82746; 83540; 83550; 83735; 84484; 85025 ×2; 85027; 85610; 85730; 81001; 71046; G0378 ×3; G0480; S4990 ×3; J2060 ×3; J2765 ×2; J3411; J2405 ×2; J7512 ×2; 80320

== ENCOUNTER 2018-02-18 18:02 | Emergency (ER) | payer MEDICARE ==
[2018-02-18 18:23] VITALS: BP 150/99; PULSE 121; RESP 18; TEMP 97.7
[2018-02-18] MEDS ORDERED: PANTOPRAZOLE 40 MG/10 ML VIAL IVP STA (18:42)
[2018-02-18] MEDS ORDERED: LORazepam 2 MG/ML INJ IV STA (18:42)
[2018-02-18] MEDS ORDERED: SODIUM CHLORIDE 0.9% 500 ML IV STA (18:42)
[2018-02-18] MEDS ORDERED: SODIUM CHLORIDE 0.9% 1,000 ML IV STA ×2 (18:42)
[2018-02-18] MEDS ORDERED: ONDANSETRON 4 MG/2 ML VIAL IVP STA (18:42)
--- NOTE | 2018-02-18 19:04 | ED ---
General Adult HPI - General Chief complaint: Recheck/Abnormal Lab/Rx Stated complaint: HALLUCINATIONS Time Seen by Provider: 02/18/18 18:27 Source: patient, RN notes reviewed, old records reviewed Mode of arrival: ambulatory Limitations: no limitations - History of Present Illness Initial comments: This is a 50-year-old male the ER for evaluation. Patient states she is going through withdrawal from alcohol Like help for this problem. Patient is recent hospital admission for alcohol withdrawal into his discharge earlier today coming back to ER now for evaluation. Patient does admit to drinking today. He denies significant delusions currently. Denies hallucinations. He has had no seizures. - Related Data Home Medications Medication Instructions Recorded Confirmed busPIRone HCl [Buspar] 10 mg PO BID PRN 12/01/17 02/18/18 Albuterol Nebulized [Ventolin 2.5 mg INHALATION RT-Q4H 01/28/18 02/18/18 Nebulized] Magnesium 400 mg PO BID 01/28/18 02/18/18 Omeprazole 20 mg PO DAILY 01/28/18 02/18/18 Thiamine HCl [Vitamin B-1] 100 mg PO HS 01/28/18 02/18/18 Folic Acid 1 mg PO DAILY 02/16/18 02/18/18 Ondansetron [Zofran] 4 mg PO TID PRN 02/16/18 02/18/18 QUEtiapine FUMARATE 100 mg PO HS 02/16/18 02/18/18 Rivaroxaban [Xarelto] 20 mg PO DAILY 02/16/18 02/18/18 predniSONE See Taper PO DAILY 02/16/18 02/18/18 Potassium Chloride [Klor-Con 20] 20 meq PO BID 02/17/18 02/18/18 Previous Rx's Medication Instructions Recorded LORazepam [Ativan] 0.5 mg PO Q8HR PRN #9 tab 02/18/18 Metoprolol Succinate [Toprol XL] 25 mg PO DAILY #30 tab 02/18/18 Multivitamins, Thera [Multivitamin 1 each PO DAILY@1200 #30 tab 02/18/18 (formulary)] Allergies Allergy/AdvReac Type Severity Reaction Status Date / Time tramadol AdvReac Mild Itching Verified 02/18/18 18:23 Review of Systems ROS Statement: Those systems with pertinent positive or pertinent negative responses have been documented in the HPI. ROS Other: All systems not noted in ROS Statement are negative. Past Medical History Past Medical History: Deep Vein Thrombosis (DVT), GERD/Reflux, Osteoarthritis ( OA), Pulmonary Embolus (PE), Seizure Disorder, Syncope Additional Past Medical History / Comment(s): Alcoholism, recent hospitalization for bilateral pulmonary embolism with clot occluding the left pulmonary artery and evidence of right ventricular strain pattern maintained on anticoagulation, COPD, chronic hypoxic respiratory failure, FEV1 of 51% of predicted with chronic hypoxic respiratory failure, chronic smoker carries more than on the PACU smoking history, alcoholism, history of delirium tremens, history of recurrent falls, history of rib fractures related to falls, GERD, diverticulosis, seizure disorder, osteoarthritis, history of small bowel obstruction secondary to incarcerated right inguinal hernia, History of Any Multi-Drug Resistant Organisms: None Reported Past Surgical History: Appendectomy, Heart Catheterization, Hernia Repair, Joint Replacement, Orthopedic Surgery, Tonsillectomy Additional Past Surgical History / Comment(s): Colonoscopies and polypectomies, 10/21/15 normal cardiac cath, multiple inguinal hernia surg., bilateral knee arthroscopies and pt states bilateral knee arthroplasties. Past Anesthesia/Blood Transfusion Reactions: No Reported Reaction Past Psychological History: Anxiety, Depression Smoking Status: Current every day smoker Past Alcohol Use History: Daily, Heavy Past Drug Use History: None Reported - Past Family History Father Family Medical History: Coronary Artery Disease (CAD), Myocardial Infarction ([place] ) Additional Family Medical History / Comment(s): Father of a [place] at the age of 73 yrs. Mother Family Medical History: Cancer Additional Family Medical History / Comment(s): Mother had breast cancer. She is 81 yrs old and now healthy. General Exam Limitations: no limitations General appearance: alert, in no apparent distress Head exam: Present: atraumatic, normocephalic, normal inspection Eye exam: Present: normal appearance, PERRL, EOMI. Absent: scleral icterus, conjunctival injection, periorbital swelling ENT exam: Present: normal exam, mucous membranes moist Neck exam: Present: normal inspection. Absent: tenderness, meningismus, lymphadenopathy Respiratory exam: Present: normal lung sounds bilaterally. Absent: respiratory distress, wheezes, rales, rhonchi, stridor Cardiovascular Exam: Present: regular rate, normal rhythm, normal heart sounds. Absent: systolic murmur, diastolic murmur, rubs, gallop, clicks GI/Abdominal exam: Present: soft, normal bowel sounds. Absent: distended, tenderness, guarding, rebound, rigid Extremities exam: Present: normal inspection, full ROM, normal capillary refill. Absent: tenderness, pedal edema, joint swelling, calf tenderness Back exam: Present: normal inspection Neurological exam: Present: alert, oriented X3, CN II-XII intact Psychiatric exam: Present: normal affect, normal mood Skin exam: Present: warm, dry, intact, normal color. 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
== END 2018-02-18 19:15 | disposition home or self-care (01) ==
LOC: EC 18:02
DX: F10.239 Alcohol dependence with withdrawal, unspecified (principal); F10.229 Alcohol dependence with intoxication, unspecified; J44.9 Chronic obstructive pulmonary disease, unspecified; J96.11 Chronic respiratory failure with hypoxia; K21.9 Gastro-esophageal reflux disease without esophagitis; F32.9 Major depressive disorder, single episode, unspecified; F17.200 Nicotine dependence, unspecified, uncomplicated; Z88.5 Allergy status to narcotic agent; Z79.01 Long term (current) use of anticoagulants; Z79.52 Long term (current) use of systemic steroids; Z79.899 Other long term (current) drug therapy; Z86.711 Personal history of pulmonary embolism; Z86.718 Personal history of other venous thrombosis and embolism; Z86.79 Personal history of other diseases of the circulatory system
CPT/HCPCS: 99285

== ENCOUNTER 2018-02-25 13:46 | Inpatient (IN) | payer MEDICARE ==
[2018-02-25] MEDS ORDERED: BISACODYL 10 MG SUPP RECTAL PRN (13:47)
[2018-02-25] MEDS ORDERED: HYDROcodone/APAP 7.5-325MG 1 EACH TAB PO PRN (13:47)
[2018-02-25] MEDS ORDERED: NA PHOS,M-B/NA PHOS,DI-BA 133 ML ENEMA RECTAL PRN (13:47)
[2018-02-25] MEDS ORDERED: traMADol 50 MG TAB PO PRN (13:47)
[2018-02-25] MEDS ORDERED: MAGNESIUM HYDROXIDE 2,400 MG/10 ML CUP PO PRN (13:47)
[2018-02-25] MEDS ORDERED: HYDROmorphone 1 MG/ML 1 ML SYRINGE IVP PRN (13:47)
[2018-02-25] MEDS ORDERED: NALOXONE 0.4 MG/ML 1 ML VIAL IV PRN (13:47)
[2018-02-25] MEDS ORDERED: HYDROcodone/APAP 5-325MG 1 EACH TAB PO PRN (13:47)
[2018-02-25] MEDS ORDERED: VANCOMYCIN IV PER PHARMACY 1 EACH MISC MISCELLANE PRN (14:21)
[2018-02-25] MEDS ORDERED: VANCOMYCIN 1,250 MG in SODIUM CHLORIDE 0.9% 250 ML IVPB ONE (16:00)
[2018-02-25] MEDS ORDERED: ONDANSETRON 4 MG TAB PO PRN (18:58)
[2018-02-25] MEDS: HYDROcodone/APAP 10-325MG 1 EACH TAB PO PRN (21:19)
[2018-02-25] MEDS: POTASSIUM CHLORIDE ER 20 MEQ TAB.ER PO SCH (21:20)
[2018-02-25] MEDS: SENNOSIDES-DOCUSATE SODIUM 1 EACH TAB PO SCH (21:22)
[2018-02-25] MEDS: THIAMINE 100 MG TAB PO SCH (21:22)
[2018-02-25] MEDS: MAGNESIUM OXIDE 400 MG TAB PO SCH (21:22)
[2018-02-25] MEDS: LACTATED RINGERS 1,000 ML IV SCH (21:25)
[2018-02-25 23:11] LABS: Anisocytosis Slight; Basophils % (A) 0 %; Eosinophils # (A) 0.3 k/uL (0-0.7); Eosinophils % (A) 3 %; HCT 38.4 % (39.0-53.0); HGB 11.5 gm/dL (13.0-17.5); Hypochromasia Marked; Lymphocytes # (A) 1.5 k/uL (1.0-4.8); Lymphocytes % (A) 17 %; MCH 31.6 pg (25.0-35.0); MCHC 29.9 g/dL (31.0-37.0); Macrocytosis Marked; Mean Platelet Volume 6.4; Monocytes # (A) 0.8 k/uL (0-1.0); Monocytes % (A) 9 %; Neutrophils % (A) 68 %; Platelet Count 295 k/uL (150-450); RBC 3.63 m/uL (4.30-5.90); RDW 16.9 % (11.5-15.5); WBC 8.8 k/uL (3.8-10.6)
[2018-02-25 23:12] LABS: MCV 105.9 fL (80.0-100.0)
[2018-02-25 23:16] LABS: INR 1.8 (<1.2); Prothrombin Time 16.4 sec (9.0-12.0)
[2018-02-25 23:35] LABS: ALT 14 U/L (21-72); AST 15 U/L (17-59); Albumin 2.4 g/dL (3.5-5.0); Alkaline Phosphatase 106 U/L (38-126); Anion Gap 7 mmol/L; Blood Urea Nitrogen 10 mg/dL (9-20); Calcium 7.8 mg/dL (8.4-10.2); Carbon Dioxide 32 mmol/L (22-30); Chloride 97 mmol/L (98-107); Glucose 107 mg/dL (74-99); Potassium 3.7 mmol/L (3.5-5.1); Sodium 136 mmol/L (137-145); Total Bilirubin 0.4 mg/dL (0.2-1.3); Total Protein 5.2 g/dL (6.3-8.2)
[2018-02-26 00:24] LABS: C Reactive Protein 133.2 mg/L (<10.0)
--- NOTE | 2018-02-26 01:42 | P.HPOR ---
History of Present Illness H&P Date: 02/25/18 Chief Complaint: Septic left knee s/p arthroplasty Patient is a 58 year old male who presented to the office for recheck of his left knee. He is status post left total knee arthroplasty, performed on . He has history of right total knee arthroplasty as well. Patient returns to the office with complaint of increased pain and swelling about his knee left knee for at least four months per his history. He states that he has had multiple hospitalizations for alcohol withdrawal as well as pulmonary embolism recently. No fevers, chills or any other constitutional symptoms. Patient states his pain level is at 10/10. He continues to have pain, stiffness, swelling and weakness. He is having difficulty with weight bearing on the left knee secondary to pain. He did have a vague history of a remote fall which he did not seeks treatment for. We will check the hospital record for recent hospitalizations as patient is a seemingly poor historian. He is being admitted for IV antibiotics, infectious disease consultation, medical management, [facility] protocol and pending surgical intervention Review of Systems All systems: negative Constitutional: Denies chills, Denies fever Eyes: denies blurred vision, denies pain Ears, nose, mouth and throat: Denies headache, Denies sore throat Cardiovascular: Denies chest pain, Denies shortness of breath Respiratory: Denies cough Gastrointestinal: Denies abdominal pain, Denies diarrhea, Denies nausea, Denies vomiting Musculoskeletal: Denies myalgias Integumentary: Denies pruritus, Denies rash Neurological: Denies numbness, Denies weakness Psychiatric: Denies anxiety, Denies depression Endocrine: Denies fatigue, Denies weight change Past Medical History Past Medical History: Deep Vein Thrombosis (DVT), GERD/Reflux, Osteoarthritis ( OA), Pulmonary Embolus (PE), Seizure Disorder, Syncope Additional Past Medical History / Comment(s): pt statedhe had a recent flu 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 at 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 of this admit.Alcoholism, recent hospitalization for bilateral pulmonary embolism with clot occluding the left pulmonary artery and evidence of right ventricular strain pattern maintained on anticoagulation, COPD, chronic hypoxic respiratory failure, FEV1 of 51% of predicted with chronic hypoxic respiratory failure, chronic smoker carries more than on the PACU smoking history, alcoholism, history of delirium tremens, history of recurrent falls, history of rib fractures related to falls, GERD, diverticulosis, seizure disorder, osteoarthritis, history of small bowel obstruction secondary to incarcerated right inguinal hernia, History of Any Multi-Drug Resistant Organisms: MRSA Date of last positivie culture/infection: 02/21/18 MDRO Source:: SYNOVIAL FLUID Past Surgical History: Appendectomy, Heart Catheterization, Hernia Repair, Joint Replacement, Orthopedic Surgery, Tonsillectomy Additional Past Surgical History / Comment(s): Colonoscopies and polypectomies, 10/21/15 normal cardiac cath, multiple inguinal hernia surg., bilateral knee arthroscopies and pt states bilateral knee arthroplasties."had blood clots removed from lungs at [facility], i'not sure what they did" Past Anesthesia/Blood Transfusion Reactions: No Reported Reaction Smoking Status: Current every day smoker - Past Family History Father Family Medical History: Coronary Artery Disease (CAD), Myocardial Infarction ([place] ) Additional Family Medical History / Comment(s): Father of a [place] at the age of 73 yrs. Mother Family Medical History: Cancer Additional Family Medical History / Comment(s): Mother had breast cancer. She is 81 yrs old and now healthy. Medications and Allergies Home Medications Medication Instructions Recorded Confirmed Type busPIRone HCl [Buspar] 10 mg PO BID PRN 12/01/17 02/25/18 History Albuterol Nebulized [Ventolin 2.5 mg INHALATION RT-Q4H 01/28/18 02/25/18 History Nebulized] Magnesium 400 mg PO BID 01/28/18 02/25/18 History Omeprazole 20 mg PO DAILY 01/28/18 02/25/18 History Thiamine HCl [Vitamin B-1] 100 mg PO HS 01/28/18 02/25/18 History Folic Acid 1 mg PO DAILY 02/16/18 02/25/18 History Ondansetron [Zofran] 4 mg PO TID PRN 02/16/18 02/25/18 History QUEtiapine FUMARATE 100 mg PO HS 02/16/18 02/25/18 History Rivaroxaban [Xarelto] 20 mg PO DAILY 02/16/18 02/25/18 History Potassium Chloride [Klor-Con 20] 20 meq PO BID 02/17/18 02/25/18 History LORazepam [Ativan] 0.5 mg PO Q8HR PRN #9 tab 02/18/18 02/25/18 Rx Metoprolol Succinate [Toprol XL] 25 mg PO DAILY #30 tab 02/18/18 02/25/18 Rx HYDROcodone/APAP 7.5-325MG [[place] 1 tab PO Q4-6H PRN 02/25/18 02/25/18 History 7.5-325] Multivitamins, Thera [Multivitamin 1 tab PO DAILY@1200 02/25/18 02/25/18 History (formulary)] Allergies Allergy/AdvReac Type Severity Reaction Status Date / Time tramadol AdvReac Mild Itching Verified 02/25/18 17:13 Physical Examination Inspection of the left lower extremity shows a left knee effusion. There is a well healed surgical wound at the knee. The knee is ligamentously stable. Neurovascular status is intact throughout the left lower extremity with gross motor and sensation. Calf is soft an nontender. 2+ DP pulses and less than 2 sec cap refill present Results - Labs Labs: Abnormal Lab Results - Last 24 Hours (Table) 02/25/18 02/25/18 02/25/18 Range/Units 23:00 23:00 23:00 RBC 3.63 L (4.30-5.90) m/uL Hgb 11.5 L (13.0-17.5) gm/dL Hct 38.4 L (39.0-53.0) % MCV 105.9 H (80.0-100.0) fL MCHC 29.9 L (31.0-37.0) g/dL RDW 16.9 H (11.5-15.5) % PT 16.4 H (9.0-12.0) sec INR 1.8 H (<1.2) Sodium 136 L (137-145) mmol/L Chloride 97 L (98-107) mmol/L Carbon Dioxide 32 H (22-30) mmol/L Glucose 107 H (74-99) mg/dL Calcium 7.8 L (8.4-10.2) mg/dL AST 15 L (17-59) U/L ALT 14 L (21-72) U/L C-Reactive Protein 133.2 H (<10.0) mg/L Total Protein 5.2 L (6.3-8.2) g/dL Albumin 2.4 L (3.5-5.0) g/dL H & H 02/25/18 Range/Units 23:00 Hgb 11.5 L (13.0-17.5) gm/dL Hct 38.4 L (39.0-53.0) % Coagulation 02/25/18 Range/Units 23:00 INR 1.8 H (<1.2) Result Diagrams: 02/25/18 23:00 02/25/18 23:00 Assessment and Plan (1) Alcohol withdrawal Narrative/Plan: Patient is being admitted for medical management, CIWA protocol, Infectious disease consultation, and pending surgical intervention regarding his left knee. Labs including CBC, CMP, CRP, Blood cultures, PT/INR have been ordered. Pending clearance, plan is to undergo surgical intervention for his septic left knee at the beginning of next week. Current Visit: No Status: Acute Code(s): F10.239 - ALCOHOL DEPENDENCE WITH WITHDRAWAL, UNSPECIFIED SNOMED Code(s): 967737076 (2) Alcohol withdrawal syndrome Current Visit: No Status: Acute Code(s): F10.239 - ALCOHOL DEPENDENCE WITH WITHDRAWAL, UNSPECIFIED SNOMED Code(s): 980623642 (3) ETOH abuse Current Visit: No Status: Acute Code(s): F10.10 - ALCOHOL ABUSE, UNCOMPLICATED SNOMED Code(s): 18783494 (4) Effusion, left knee Current Visit: No Status: Acute Priority: Medium Code(s): M25.462 - EFFUSION, LEFT KNEE SNOMED Code(s): 962285437 (5) Pulmonary embolism Current Visit: No Status: Acute Code(s): I26.99 - OTHER PULMONARY EMBOLISM WITHOUT ACUTE COR PULMONALE SNOMED Code(s): 71858975 (6) Smoker Current Visit: No Status: Acute Code(s): F17.200 - NICOTINE DEPENDENCE, UNSPECIFIED, UNCOMPLICATED SNOMED Code(s): 71061438 (7) Status post left knee replacement Current Visit: No Status: Acute Code(s): Z96.652 - PRESENCE OF LEFT ARTIFICIAL KNEE JOINT SNOMED Code(s): 9863996620830 Time with Patient: Less than 30
[2018-02-26] MEDS: LACTATED RINGERS 1,000 ML IV SCH ×2 (02:42→19:22)
[2018-02-26] MEDS: HYDROcodone/APAP 10-325MG 1 EACH TAB PO PRN ×3 (05:33→20:26)
[2018-02-26 06:55] LABS: Anisocytosis Slight; Basophils % (A) 1 %; Eosinophils # (A) 0.3 k/uL (0-0.7); Eosinophils % (A) 4 %; HCT 34.1 % (39.0-53.0); Hypochromasia Moderate; INR 1.5 (<1.2); Lymphocytes # (A) 1.5 k/uL (1.0-4.8); Lymphocytes % (A) 20 %; MCH 33.1 pg (25.0-35.0); MCHC 32.1 g/dL (31.0-37.0); Macrocytosis Moderate; Mean Platelet Volume 6.7; Monocytes # (A) 0.6 k/uL (0-1.0); Monocytes % (A) 8 %; Neutrophils # (A) 4.9 k/uL (1.3-7.7); Neutrophils % (A) 66 %; Platelet Count 287 k/uL (150-450); Prothrombin Time 14.1 sec (9.0-12.0); RBC 3.31 m/uL (4.30-5.90); RDW 17.3 % (11.5-15.5); WBC 7.4 k/uL (3.8-10.6)
[2018-02-26] MEDS ORDERED: VANCOMYCIN 1,250 MG in SODIUM CHLORIDE 0.9% 250 ML IVPB SCH (07:00)
[2018-02-26 07:04] LABS: Anion Gap 5 mmol/L; Blood Urea Nitrogen 9 mg/dL (9-20); Calcium 7.7 mg/dL (8.4-10.2); Carbon Dioxide 32 mmol/L (22-30); Chloride 100 mmol/L (98-107); Glucose 100 mg/dL (74-99); Sodium 137 mmol/L (137-145)
[2018-02-26] MEDS: DIAZEPAM 5 MG TAB PO PRN (09:18)
[2018-02-26] MEDS: LORazepam 0.5 MG TAB PO PRN ×2 (09:18→16:54)
[2018-02-26] MEDS: MAGNESIUM OXIDE 400 MG TAB PO SCH ×2 (09:19→20:26)
[2018-02-26] MEDS: RIVAROXABAN 20 MG TAB PO SCH ×2 (09:19→10:47)
[2018-02-26] MEDS: FOLIC ACID 1 MG TAB PO SCH (09:19)
[2018-02-26] MEDS: POTASSIUM CHLORIDE ER 20 MEQ TAB.ER PO SCH ×2 (09:19→20:26)
[2018-02-26] MEDS: METOPROLOL SUCCINATE (ER) 25 MG TAB.ER.24H PO SCH (09:21)
[2018-02-26] MEDS ORDERED: MULTIVITAMINS, THERA 1 EACH TAB PO SCH (12:00)
[2018-02-26] MEDS: MULTIVITAMINS, THERA 1 EACH TAB PO SCH (14:02)
[2018-02-26] MEDS: hydrOXYzine PAMOATE 25 MG CAP PO PRN (14:07)
--- NOTE | 2018-02-26 15:17 | XR ---
EXAMINATION TYPE: XR chest 1V portable DATE OF EXAM: 02/26/2018 COMPARISON: 02/16/2018 HISTORY: Central line placement TECHNIQUE: Single frontal view of the chest is obtained. FINDINGS: Left-sided central line is placed with its distal tip appropriately in the cavoatrial junc tion. Chronic obscuration of the left costophrenic angle is appreciated. Remainder the lungs are trice r. Cardiomediastinal silhouette is upper limits of normal. Osseous structures are grossly intact. No appreciable pneumothorax. IMPRESSION: 1. Appropriately placed left-sided central line terminating in the cavoatrial junction. 2. Persistent left basilar opacity favored to represent chronic atelectasis and/or scarring.
--- NOTE | 2018-02-26 15:28 | P.PN ---
Progress Note - Text Progress Note Date: 02/26/18 Patient is a pleasant 58-year-old male who is seen and examined bedside following evaluation for his known septic left knee status post total knee arthroplasty. He has some pain at the knee but feels his pain has improved since his admittance. Patient has significant difficulty with IV access. IV access was able to be obtained and vancomycin was able to be administered. Shortly after the IV filled. Orders placed and Dr. Flynn was able to place a central line. Dr. Laird has discussed the patient in detail with Dr. Ren in infectious disease. Dr. Laird would like IV antibiotics to be managed by Dr. Ren in infectious disease. Stat consult has been placed with Dr. Ren in infectious disease as well as Dr. Holland and medicine. Patient is known to have previously undergone multiple admissions for delirium tremens. He currently has a small tremor with the right upper extremity. We will plan for Dr. Holland to treat patient from a medical standpoint for the possibility of delirium tremens as well as other medical diagnoses including anticoagulation treatment. Dr. Laird is currently planning for surgical intervention this coming 02/28/2018, or 03/01/2018, at which time he is planning for irrigation and debridement with placement of articulating antibiotic cement spacer. Patient's past medical history does include pulmonary embolism and deep vein thrombosis. Physical Exam: Patient is awake, alert, and oriented 3 Vital signs stable Good chest excursion with deep inspiration and expiration Abdomen soft nontender Small tremor at the right upper extremity Evidence of swelling over the left knee Some pain and evidence of warmth over the left knee with palpation No significant of erythema or active drainage over the left knee Patient is able to perform dorsiflexion and plantarflexion of the left lower extremity without significant difficulty Mild pain with palpation over the entire lower extremity extending below the knee to the ankle Evidence of well-healed incisions over the bilateral anterior knees Assessment: Septic left knee status post left knee total arthroplasty Left knee pain History of delirium tremens with multiple admissions for treatment History of pulmonary embolism and deep vein thrombosis Plan: 1. Patient has been discussed in detail with Dr. Aravind Laird. Dr. Aravind Laird has discussed this patient detail with Dr. Ren in infectious disease. We are currently planning for conservative treatment prior to surgical intervention as early as this coming 02/28/2018, or 2018. He's had significant difficulty with IV site placement. Dr. Flynn has been able to place a central line. We will defer all prescribed IV antibiotic medications to Dr. Ren in infectious disease. We'll most likely plan for surgical intervention with irrigation and debridement of the left knee with placement of articulating antibiotic cement spacer in the next 2-3 days. We will continue follow patient closely. Continue pain control medications as prescribed. 2. Consultation has been placed for Dr. Ren in infectious disease 3. Oscitation has been placed for Dr. Holland and medicine; will plan for medicine to manage the patient's other medical diagnoses including anticoagulation and the possibility of delirium tremens, which the patient has been treated for multiple times previously
--- NOTE | 2018-02-26 16:15 | P.CONS ---
History of Present Illness - Reason for Consult Consult date: 02/26/18 - History of Present Illness Addy Villalpando, is a 58 year old male who presented to the Orthopedic Surgery office for recheck of his left knee. He is status post left total knee arthroplasty, 4 months ago . Patient was complaining of of increased pain and swelling in the left knee. Patient had multiple hospitalizations for alcohol withdrawal as well as pulmonary embolism recently. Patient was complaining of pain and swelling in the left knee.He is having difficulty with weight bearing on the left knee secondary to pain. He did have a vague history of a remote fall which he did not seeks treatment for. He was evaluated by orthopedic surgery and was admitted directly to [facility], he was started on IV antibiotic vancomycin, and is scheduled for surgery on the left knee on Wednesday. Past Medical History Past Medical History: Deep Vein Thrombosis (DVT), GERD/Reflux, Osteoarthritis ( OA), Pulmonary Embolus (PE), Seizure Disorder, Syncope Additional Past Medical History / Comment(s): pt statedhe had a recent flu vaccine-technical proposal writer unable to verify date at time of this admit.Alcoholism, recent hospitalization for bilateral pulmonary embolism with clot occluding the left pulmonary artery and evidence of right ventricular strain pattern maintained on anticoagulation, COPD, chronic hypoxic respiratory failure, FEV1 of 51% of predicted with chronic hypoxic respiratory failure, chronic smoker carries more than on the PACU smoking history, alcoholism, history of delirium tremens, history of recurrent falls, history of rib fractures related to falls, GERD, diverticulosis, seizure disorder, osteoarthritis, history of small bowel obstruction secondary to incarcerated right inguinal hernia, History of Any Multi-Drug Resistant Organisms: MRSA Year Discovered:: 02/21/18 MDRO Source:: SYNOVIAL FLUID Past Surgical History: Appendectomy, Heart Catheterization, Hernia Repair, Joint Replacement, Orthopedic Surgery, Tonsillectomy Additional Past Surgical History / Comment(s): Colonoscopies and polypectomies, 10/21/15 normal cardiac cath, multiple inguinal hernia surg., bilateral knee arthroscopies and pt states bilateral knee arthroplasties."had blood clots removed from lungs at [facility], i'not sure what they did" Past Anesthesia/Blood Transfusion Reactions: No Reported Reaction Smoking Status: Current every day smoker - Past Family History Father Family Medical History: Coronary Artery Disease (CAD), Myocardial Infarction ([place] ) Additional Family Medical History / Comment(s): Father of a [place] at the age of 73 yrs. Mother Family Medical History: Cancer Additional Family Medical History / Comment(s): Mother had breast cancer. She is 81 yrs old and now healthy. Medications and Allergies Home Medications Medication Instructions Recorded Confirmed Type busPIRone HCl [Buspar] 10 mg PO BID PRN 12/01/17 02/25/18 History Albuterol Nebulized [Ventolin 2.5 mg INHALATION RT-Q4H 01/28/18 02/25/18 History Nebulized] Magnesium 400 mg PO BID 01/28/18 02/25/18 History Omeprazole 20 mg PO DAILY 01/28/18 02/25/18 History Thiamine HCl [Vitamin B-1] 100 mg PO HS 01/28/18 02/25/18 History Folic Acid 1 mg PO DAILY 02/16/18 02/25/18 History Ondansetron [Zofran] 4 mg PO TID PRN 02/16/18 02/25/18 History QUEtiapine FUMARATE 100 mg PO HS 02/16/18 02/25/18 History Rivaroxaban [Xarelto] 20 mg PO DAILY 02/16/18 02/25/18 History Potassium Chloride [Klor-Con 20] 20 meq PO BID 02/17/18 02/25/18 History LORazepam [Ativan] 0.5 mg PO Q8HR PRN #9 tab 02/18/18 02/25/18 Rx Metoprolol Succinate [Toprol XL] 25 mg PO DAILY #30 tab 02/18/18 02/25/18 Rx HYDROcodone/APAP 7.5-325MG [Lamar 1 tab PO Q4-6H PRN 02/25/18 02/25/18 History 7.5-325] Multivitamins, Thera [Multivitamin 1 tab PO DAILY@1200 02/25/18 02/25/18 History (formulary)] Allergies Allergy/AdvReac Type Severity Reaction Status Date / Time tramadol AdvReac Mild Itching Verified 02/25/18 17:13 Physical Exam Vitals: Vital Signs Temp Pulse Resp BP Pulse Ox 02/26/18 07:44 94 L 02/26/18 07:00 97.3 F L 92 18 108/68 75 L 02/26/18 00:14 97.7 F 109 H 16 90/61 92 L 02/25/18 21:17 97.0 F L 91 16 95/65 100 02/25/18 17:28 98.5 F 97 16 100/70 89 L Intake and Output 02/26/18 02/26/18 02/26/18 06:59 14:59 22:59 Intake Total 360 Output Total 650 800 Balance -650 -440 Intake: Oral 360 Output: Urine 650 800 At this time patient is alert and oriented 3 in no apparent distress HEENT head normocephalic and atraumatic Neck is supple no JVD no goiter no lymphadenopathy Chest exam reveals a few scattered crackles no wheezing cardiac exam reveals regular heart sounds no gallops no murmurs Extremity exam reveals no edema no cyanosis or clubbing there is significant swelling tenderness and movement limitation in the left knee Neurological examination reveals no gross focal deficit Results CBC & Chem 7: 02/26/18 06:05 02/26/18 06:05 Labs: Abnormal Lab Results - Last 24 Hours (Table) 02/25/18 02/25/18 02/25/18 Range/Units 23:00 23:00 23:00 RBC 3.63 L (4.30-5.90) m/uL Hgb 11.5 L (13.0-17.5) gm/dL Hct 38.4 L (39.0-53.0) % MCV 105.9 H (80.0-100.0) fL MCHC 29.9 L (31.0-37.0) g/dL RDW 16.9 H (11.5-15.5) % PT 16.4 H (9.0-12.0) sec INR 1.8 H (<1.2) Sodium 136 L (137-145) mmol/L Chloride 97 L (98-107) mmol/L Carbon Dioxide 32 H (22-30) mmol/L Glucose 107 H (74-99) mg/dL Calcium 7.8 L (8.4-10.2) mg/dL AST 15 L (17-59) U/L ALT 14 L (21-72) U/L C-Reactive Protein 133.2 H (<10.0) mg/L Total Protein 5.2 L (6.3-8.2) g/dL Albumin 2.4 L (3.5-5.0) g/dL 02/26/18 02/26/18 02/26/18 Range/Units 06:05 06:05 06:05 RBC 3.31 L (4.30-5.90) m/uL Hgb 11.0 L (13.0-17.5) gm/dL Hct 34.1 L (39.0-53.0) % MCV 103.0 H (80.0-100.0) fL MCHC (31.0-37.0) g/dL RDW 17.3 H (11.5-15.5) % PT 14.1 H (9.0-12.0) sec INR 1.5 H (<1.2) Sodium (137-145) mmol/L Chloride (98-107) mmol/L Carbon Dioxide 32 H (22-30) mmol/L Glucose 100 H (74-99) mg/dL Calcium 7.7 L (8.4-10.2) mg/dL AST (17-59) U/L ALT (21-72) U/L C-Reactive Protein (<10.0) mg/L Total Protein (6.3-8.2) g/dL Albumin (3.5-5.0) g/dL Assessment and Plan Plan: #1 left knee pain and swelling patient is admitted by orthopedic surgery and was started on IV antibiotic vancomycin, he is scheduled for surgery on Wednesday #2 recent history of pulmonary embolism at this time Xarelto was discontinued he was started on Lovenox 1 mg/kg every 12 hours will discontinue that on Wednesday evening in anticipation for surgery on Wednesday #3 underlying history of excessive use alcohol, with previous history of alcohol Mr. lopez he was started on CIWA protocol #4 difficulty obtaining peripheral access consultation for PICC line placement was initiated however this is not available on the weekend in this hospital Dr. Flynn proceeded with triple-lumen placement in the left subclavian area At this time medication and labs were reviewed continue with current management Plan is for left knee surgery on Wednesday will follow closely
[2018-02-26] MEDS: VANCOMYCIN 1,250 MG in SODIUM CHLORIDE 0.9% 250 ML IVPB SCH (16:48)
[2018-02-26] MEDS: SENNOSIDES-DOCUSATE SODIUM 1 EACH TAB PO SCH (20:26)
[2018-02-26] MEDS: THIAMINE 100 MG TAB PO SCH (20:26)
[2018-02-26] MEDS: ENOXAPARIN 80 MG/0.8 ML SYRINGE SQ SCH (20:27)
[2018-02-27] MEDS: LACTATED RINGERS 1,000 ML IV SCH ×3 (00:09→18:32)
[2018-02-27] MEDS: VANCOMYCIN 1,250 MG in SODIUM CHLORIDE 0.9% 250 ML IVPB SCH ×3 (00:16→17:23)
[2018-02-27] MEDS: LORazepam 0.5 MG TAB PO PRN (00:26)
--- NOTE | 2018-02-27 00:49 | P.CONS ---
History of Present Illness - Reason for Consult Consult date: 02/26/18 - Chief Complaint Pain left knee - History of Present Illness 58-year-old male presents to the hospital for further evaluation of the significant pain and swelling to his left knee. The patient has a history of degenerative joint disease and underwent a left total knee arthroplasty in 2014. The patient has had a decline of his overall health in the interim is complicated by chronic alcoholism and ongoing tobacco abuse. The patient apparently 4 months ago had an indistinct trauma to the knee and this been having difficulties with swelling since that point in time. It was worsening and constantly sought care with his orthopedic surgeon recently. An aspiration to the joint was obtained and a somewhat purulent material was found. Consequently the patient was sent to Hospital and consultations have been requested. The aspiration is already started to show evidence of MRSA infection. Antibiotic therapy with vancomycin was advised and the patient will be planned for surgical intervention soon. Medical consultation to help with his alcohol withdrawal. Patient is also given significant advice about smoking cessation and the importance of that to help him with healing of his orthopedic issues. The patient is denying high-grade fevers, chills or rigors but does not feel well overall. Emmanuel's health has been declining over the last few years. Review of Systems 58-year-old male feeling poorly HEENT:Denies headache or acute visual change. Denies sinus or mouth discomforts. Denies neck stiffness or pain. Denies significant oral cavity pain. Denies difficulty on swallowing. Lungs: Is a chronic smoker and has difficulties with some chronic cough but no sputum production or hemoptysis Cardiovascular: Denies significant shortness of breath, chest pain, chest wall pain, orthopnea, dyspnea on exertion, syncope Gastrointestinal:Denies nausea, vomiting, diarrhea, constipation, hematemesis, melena, hematochezia. No no significant change of bowel habit noticed. Musculoskeletal: Has evidence of the ongoing difficulties with the pain and swelling to his left knee which has reduced the range of motion. He is having difficulty with ambulation because of the pain and swelling. Skin: Denies new rash or lesions. No new ulcers or wounds are related.. Neuro: Denies headache or visual change. Denies any new onset weakness or difficulty with ambulation. Denies falls or seizures. Psychiatric:Denies anxiety or depression. Endocrine: Denies significant fatigue, denies significant weight loss or weight gain. Past Medical History Past Medical History: Deep Vein Thrombosis (DVT), GERD/Reflux, Osteoarthritis ( OA), Pulmonary Embolus (PE), Seizure Disorder, Syncope Additional Past Medical History / Comment(s): pt statedhe had a recent flu vaccine-health underwriter unable to verify date at time of this admit.Alcoholism, recent hospitalization for bilateral pulmonary embolism with clot occluding the left pulmonary artery and evidence of right ventricular strain pattern maintained on anticoagulation, COPD, chronic hypoxic respiratory failure, FEV1 of 51% of predicted with chronic hypoxic respiratory failure, chronic smoker carries more than on the PACU smoking history, alcoholism, history of delirium tremens, history of recurrent falls, history of rib fractures related to falls, GERD, diverticulosis, seizure disorder, osteoarthritis, history of small bowel obstruction secondary to incarcerated right inguinal hernia, History of Any Multi-Drug Resistant Organisms: MRSA Year Discovered:: 02/21/18 MDRO Source:: SYNOVIAL FLUID Past Surgical History: Appendectomy, Heart Catheterization, Hernia Repair, Joint Replacement, Orthopedic Surgery, Tonsillectomy Additional Past Surgical History / Comment(s): Colonoscopies and polypectomies, 10/21/15 normal cardiac cath, multiple inguinal hernia surg., bilateral knee arthroscopies and pt states bilateral knee arthroplasties."had blood clots removed from lungs at [facility], i'not sure what they did" Past Anesthesia/Blood Transfusion Reactions: No Reported Reaction Additional Psychological History / Comment(s): lives independently. Difficulties with alcohol abuse that her current multiple admissions recently with difficulties with alcohol withdrawal. Chronic tobacco use. Medically disabled. No experience. No international travel. No animal exposures Smoking Status: Current every day smoker - Past Family History Father Family Medical History: Coronary Artery Disease (CAD), Myocardial Infarction ([place] ) Additional Family Medical History / Comment(s): Father of a [place] at the age of 73 yrs. Mother Family Medical History: Cancer Additional Family Medical History / Comment(s): Mother had breast cancer. She is 81 yrs old and now healthy. Medications and Allergies Home Medications and Allergies Comment(s): Current Medications Hydrocodone Bitart/Acetaminophen (Lindrith 10) 1 each PO Q6H PRN PRN Reason: Pain Scale 6 to 10 Last Admin: 02/26/18 20:26 Dose: 1 each Hydrocodone Bitart/Acetaminophen (Lindrith 5-325) 1 each PO Q6HR PRN PRN Reason: Pain Scale 1 to 5 Bisacodyl (Dulcolax) 10 mg RECTAL DAILY PRN PRN Reason: Constipation Diazepam (Valium) 2.5 mg PO Q8HR PRN PRN Reason: Mild Spasms Last Admin: 02/26/18 09:18 Dose: 2.5 mg Enoxaparin Sodium (Lovenox) 80 mg SQ Q12HR [facility] Last Admin: 02/26/18 20:27 Dose: 80 mg Folic Acid (Folic Acid) 1 mg PO DAILY [facility] Last Admin: 02/26/18 09:19 Dose: 1 mg Hydromorphone HCl (Dilaudid) 0.25 mg IVP Q3HR PRN PRN Reason: Pain Scale 1 to 3 Hydromorphone HCl (Dilaudid) 0.5 mg IVP Q3HR PRN PRN Reason: Pain Scale 4 to 6 Hydromorphone HCl (Dilaudid) 1 mg IVP Q3HR PRN PRN Reason: Pain Scale 7 to 10 Hydroxyzine Pamoate (Vistaril) 25 mg PO Q4HR PRN PRN Reason: Nausea, Anxiety, Pain Control Last Admin: 02/26/18 14:07 Dose: 25 mg Lactated Ringer's (Lactated Ringers) 1,000 mls @ 100 mls/hr IV .Q10H [facility] Last Admin: 02/27/18 00:09 Dose: 100 mls/hr Vancomycin HCl 1,250 mg/ (Sodium Chloride) 250 mls @ 125 mls/hr IVPB Q8H [facility] Last Admin: 02/27/18 00:16 Dose: 125 mls/hr Lorazepam (Ativan) 0.5 mg PO Q8HR PRN PRN Reason: Anxiety Last Admin: 02/27/18 00:26 Dose: 0.5 mg Lorazepam (Ativan) 1 mg IV Q2HR PRN PRN Reason: CIWA 8 or 9 Lorazepam (Ativan) 1 mg IV Q1HR PRN PRN Reason: CIWA 10 to 15 Lorazepam (Ativan) 2 mg IV Q10M PRN PRN Reason: CIWA 16 or higher Stop: 02/28/18 12:45 Magnesium Hydroxide (Milk Of Magnesia) 2,400 mg PO DAILY PRN PRN Reason: Constipation Magnesium Oxide (Mag-Ox) 400 mg PO BID [facility] Last Admin: 02/26/18 20:26 Dose: 400 mg Metoprolol Succinate (Toprol Xl) 25 mg PO DAILY [facility] Last Admin: 02/26/18 09:21 Dose: Not Given Miscellaneous Information (Pharmacy To Dose Iv Vancomycin) 1 each MISCELLANE DIRECTED PRN PRN Reason: Per Protocol Multivitamins (Theragran) 1 each PO DAILY@1200 [facility] Last Admin: 02/26/18 14:02 Dose: 1 each Naloxone HCl (Narcan) 0.2 mg IV Q2M PRN PRN Reason: Opioid Reversal Ondansetron HCl (Zofran) 4 mg IVP Q8HR PRN PRN Reason: Nausea And Vomiting Ondansetron HCl (Zofran) 4 mg PO TID PRN PRN Reason: Nausea And Vomiting Potassium Chloride (K-Dur 20) 20 meq PO BID [facility] Last Admin: 02/26/18 20:26 Dose: 20 meq Senna/Docusate Sodium (Senokot-S) 2 each PO HS [facility] Last Admin: 02/26/18 20:26 Dose: 2 each Sodium Biphosphate/Sodium Phosphate (Fleet Adult) 133 ml RECTAL DAILY PRN PRN Reason: Constipation Temazepam (Restoril) 15 mg PO HS PRN PRN Reason: Insomnia Thiamine HCl (Vitamin B-1) 100 mg PO [facility] Last Admin: 02/26/18 20:26 Dose: 100 mg Tramadol HCl (Ultram) 50 mg PO Q6HR PRN PRN Reason: Pain Scale 1 to 5 Home Medications Medication Instructions Recorded Confirmed Type busPIRone HCl [Buspar] 10 mg PO BID PRN 12/01/17 02/25/18 History Albuterol Nebulized [Ventolin 2.5 mg INHALATION RT-Q4H 01/28/18 02/25/18 History Nebulized] Magnesium 400 mg PO BID 01/28/18 02/25/18 History Omeprazole 20 mg PO DAILY 01/28/18 02/25/18 History Thiamine HCl [Vitamin B-1] 100 mg PO HS 01/28/18 02/25/18 History Folic Acid 1 mg PO DAILY 02/16/18 02/25/18 History Ondansetron [Zofran] 4 mg PO TID PRN 02/16/18 02/25/18 History QUEtiapine FUMARATE 100 mg PO HS 02/16/18 02/25/18 History Rivaroxaban [Xarelto] 20 mg PO DAILY 02/16/18 02/25/18 History Potassium Chloride [Klor-Con 20] 20 meq PO BID 02/17/18 02/25/18 History LORazepam [Ativan] 0.5 mg PO Q8HR PRN #9 tab 02/18/18 02/25/18 Rx Metoprolol Succinate [Toprol XL] 25 mg PO DAILY #30 tab 02/18/18 02/25/18 Rx HYDROcodone/APAP 7.5-325MG [Lindrith 1 tab PO Q4-6H PRN 02/25/18 02/25/18 History 7.5-325] Multivitamins, Thera [Multivitamin 1 tab PO DAILY@1200 02/25/18 02/25/18 History (formulary)] Allergies Allergy/AdvReac Type Severity Reaction Status Date / Time tramadol AdvReac Mild Itching Verified 02/25/18 17:13 Physical Exam Vitals: Vital Signs Temp Pulse Resp BP Pulse Ox 02/27/18 00:07 97.9 F 88 16 108/80 96 02/26/18 19:07 97.4 F L 88 16 112/67 100 02/26/18 14:20 97.0 F L 85 18 96/62 93 L 02/26/18 07:44 94 L 02/26/18 07:00 97.3 F L 92 18 108/68 75 L Intake and Output 02/26/18 02/26/18 02/27/18 14:59 22:59 06:59 Intake Total 360 487 Output Total 800 300 Balance -440 187 Intake: Oral 360 487 Output: Urine 800 300 58-year-old male in no acute distress looks older than his stated age HEENT: Anicteric conjunctiva are pink and moist nasal mucosa grossly intact without significant lesions, there is no thrush. Dentition is quite poor for age Neck: The neck is supple without significant lymphadenopathy or thyromegaly. Lungs: There is symmetrical bilateral air entry however expiratory wheezes are scattered throughout the lung jordan no nina bronchial sounds no dullness or egophony Heart: Regular rate and rhythm with an audible S1-S2, no S3 soft S4 there is no significant murmur click or rub, PMI was nondisplaced. Abdomen: Positive bowel sounds soft and nontender without palpable masses or organomegaly. There was no guarding or rebound. No evidence of ascites Extremities: The upper extremities have excellent pulses they are symmetric, no significant petechiae or telangiectasia. No splinter hemorrhages were noted. The right lower extremity reveals evidence of no acute abnormalities. Left lower extremity shows evidence of the extensive swelling to the left knee. The knee itself is warm with erythema and there is a palpable effusion. It is quite tender to manipulation. There is distinct pain to any attempts for range of motion. There is not a distinct amount of ascending erythema. There is no significant inguinal lymphadenopathy and no other lymphadenopathy is noted. Neuro: Awake alert oriented to person place and time. There are no acute new gross focal sensory motor deficits. Results CBC & Chem 7: 02/26/18 06:05 02/26/18 06:05 Labs: Abnormal Lab Results - Last 24 Hours (Table) 02/26/18 02/26/18 02/26/18 Range/Units 06:05 06:05 06:05 RBC 3.31 L (4.30-5.90) m/uL Hgb 11.0 L (13.0-17.5) gm/dL Hct 34.1 L (39.0-53.0) % MCV 103.0 H (80.0-100.0) fL RDW 17.3 H (11.5-15.5) % PT 14.1 H (9.0-12.0) sec INR 1.5 H (<1.2) Carbon Dioxide 32 H (22-30) mmol/L Glucose 100 H (74-99) mg/dL Calcium 7.7 L (8.4-10.2) mg/dL Laboratory Results WBC 7.4 k/uL (3.8-10.6) 02/26/18 06:05 RBC 3.31 m/uL (4.30-5.90) L 02/26/18 06:05 Hgb 11.0 gm/dL (13.0-17.5) L 02/26/18 06:05 Hct 34.1 % (39.0-53.0) L 02/26/18 06:05 MCV 103.0 fL (80.0-100.0) H 02/26/18 06:05 MCH 33.1 pg (25.0-35.0) 02/26/18 06:05 MCHC 32.1 g/dL (31.0-37.0) 02/26/18 06:05 RDW 17.3 % (11.5-15.5) H 02/26/18 06:05 Plt Count 287 k/uL (150-450) 02/26/18 06:05 Neutrophils % 66 % 02/26/18 06:05 Lymphocytes % 20 % 02/26/18 06:05 Monocytes % 8 % 02/26/18 06:05 Eosinophils % 4 % 02/26/18 06:05 Basophils % 1 % 02/26/18 06:05 Neutrophils # 4.9 k/uL (1.3-7.7) 02/26/18 06:05 Lymphocytes # 1.5 k/uL (1.0-4.8) 02/26/18 06:05 Monocytes # 0.6 k/uL (0-1.0) 02/26/18 06:05 Eosinophils # 0.3 k/uL (0-0.7) 02/26/18 06:05 Basophils # 0.0 k/uL (0-0.2) 02/26/18 06:05 Hypochromasia Moderate 02/26/18 06:05 Anisocytosis Slight 02/26/18 06:05 Macrocytosis Moderate 02/26/18 06:05 PT 14.1 sec (9.0-12.0) H 02/26/18 06:05 INR 1.5 (<1.2) H 02/26/18 06:05 Sodium 137 mmol/L (137-145) 02/26/18 06:05 Potassium 4.0 mmol/L (3.5-5.1) 02/26/18 06:05 Chloride 100 mmol/L (98-107) 02/26/18 06:05 Carbon Dioxide 32 mmol/L (22-30) H 02/26/18 06:05 Anion Gap 5 mmol/L 02/26/18 06:05 BUN 9 mg/dL (9-20) 02/26/18 06:05 Creatinine 0.66 mg/dL (0.66-1.25) 02/26/18 06:05 Est GFR (CKD-EPI)AfAm >90 (>60 ml/min/1.73 sqM) 02/26/18 06:05 Est GFR (CKD-EPI)NonAf >90 (>60 ml/min/1.73 sqM) 02/26/18 06:05 Glucose 100 mg/dL (74-99) H 02/26/18 06:05 Calcium 7.7 mg/dL (8.4-10.2) L 02/26/18 06:05 Total Bilirubin 0.4 mg/dL (0.2-1.3) 02/25/18 23:00 AST 15 U/L (17-59) L 02/25/18 23:00 ALT 14 U/L (21-72) L 02/25/18 23:00 Alkaline Phosphatase 106 U/L (38-126) 02/25/18 23:00 C-Reactive Protein 133.2 mg/L (<10.0) H 02/25/18 23:00 Total Protein 5.2 g/dL (6.3-8.2) L 02/25/18 23:00 Albumin 2.4 g/dL (3.5-5.0) L 02/25/18 23:00 Outpatient culture left knee synovium with MRSA. Vanco KIRSTY of 1 Assessment and Plan (1) Septic arthritis of knee, left Narrative/Plan: 58-year-old male with severe general joint disease who is status post left total knee arthroplasty from 2014. The patient has developed over the last several months increasing pain to the knee. He eventually went and saw his orthopedic surgeon. In the officer was evidence of swelling to the joints and aspiration was performed. This is now showing evidence of MRSA infection. The patient consequently has been admitted in his plan for medical stabilization and then for the extraction of the left total knee arthroplasty and placement of an antibiotic spacer. The patient will require a protracted course of intravenous antibiotic therapy. He is in understanding that he will likely need to go to rehab, most likely for the entire time presented back therapy unless other arrangements can be made later on. He desires assistance for smoking cessation. Medical services helping with his alcohol withdrawal. We will ensure that he is having adequate protein supplementation and a multivitamin should be added to help with his healing. The patient is instructed that there are limited number of times that the knee can be intervened, and if this process does not go well there is a risk for an amputation. He will need to be highly cooperative to allow a good outcome. Current Visit: Yes Status: Acute Code(s): M00.9 - PYOGENIC ARTHRITIS, UNSPECIFIED SNOMED Code(s): 967431572 (2) Status post total left knee replacement Current Visit: No Status: Acute Code(s): Z96.652 - PRESENCE OF LEFT ARTIFICIAL KNEE JOINT SNOMED Code(s): 3591958709948 (3) MRSA infection Current Visit: Yes Status: Acute Code(s): A49.02 - METHICILLIN RESIS STAPH INFECTION, UNSP SITE SNOMED Code(s): 206386634 (4) Alcoholism Current Visit: Yes Status: Acute Code(s): F10.20 - ALCOHOL DEPENDENCE, UNCOMPLICATED SNOMED Code(s): 5840276
[2018-02-27] MEDS ORDERED: NICOTINE POLACRILEX 2 MG GUM BUCCAL PRN (00:50)
[2018-02-27] MEDS ORDERED: KETOROLAC 30 MG/ML 1 ML VIAL IVP PRN (00:52)
[2018-02-27] MEDS: HYDROcodone/APAP 10-325MG 1 EACH TAB PO PRN (02:58)
[2018-02-27] MEDS: LORazepam 2 MG/ML INJ IV PRN ×11 (06:46→21:24)
[2018-02-27] MEDS: HYDROcodone/APAP 5-325MG 1 EACH TAB PO PRN (07:38)
[2018-02-27 08:03] LABS: Anisocytosis Slight; Basophils % (A) 1 %; Eosinophils # (A) 0.5 k/uL (0-0.7); Eosinophils % (A) 7 %; HCT 32.9 % (39.0-53.0); HGB 9.9 gm/dL (13.0-17.5); Hypochromasia Marked; Lymphocytes # (A) 1.7 k/uL (1.0-4.8); Lymphocytes % (A) 26 %; MCH 31.9 pg (25.0-35.0); MCV 106.3 fL (80.0-100.0); Macrocytosis Marked; Mean Platelet Volume 6.7; Monocytes # (A) 0.4 k/uL (0-1.0); Monocytes % (A) 6 %; Neutrophils # (A) 3.9 k/uL (1.3-7.7); Neutrophils % (A) 58 %; Platelet Count 345 k/uL (150-450); RBC 3.09 m/uL (4.30-5.90); RDW 17.3 % (11.5-15.5); WBC 6.6 k/uL (3.8-10.6)
[2018-02-27 08:06] LABS: INR 1.2 (<1.2); Prothrombin Time 11.2 sec (9.0-12.0)
[2018-02-27 08:12] LABS: Anion Gap 3 mmol/L; Blood Urea Nitrogen 7 mg/dL (9-20); Calcium 7.5 mg/dL (8.4-10.2); Carbon Dioxide 32 mmol/L (22-30); Chloride 103 mmol/L (98-107); Glucose 87 mg/dL (74-99); Potassium 4.1 mmol/L (3.5-5.1); Sodium 138 mmol/L (137-145)
--- NOTE | 2018-02-27 08:49 | OP ---
OPERATIVE REPORT TRIPLE LUMEN CATHETER PLACEMENT: PREOP DIAGNOSIS: Failed IV access, septic knee. POSTOP DIAGNOSIS: Failed IV access, septic knee. Indication Hemodynamic monitoring/Intravenous access. A time-out was completed verifying correct patient, procedure, site, positioning, and implant(s) or special equipment if applicable. The patient was placed in a dependent position appropriate for triple lumen catheter placement based on the vein to be cannulated. The patient's left shoulder was prepped and draped in sterile fashion. 1% Lidocaine was used to anesthetize the surrounding skin area. A triple lumen 9F Cordis catheter was introduced into the subclavian vein using Seldinger technique. The catheter was threaded smoothly over the guide wire and appropriate blood return was obtained. Each lumen of the catheter was evacuated of air and flushed with sterile saline. The catheter was then sutured in place to the skin and a sterile dressing applied. Perfusion to the extremity distal to the point of catheter insertion was checked and found to be adequate. No bedside complications or bleeding. No pneumothorax. MMODL / IJN: [id number] /
[2018-02-27] MEDS: METOPROLOL SUCCINATE (ER) 25 MG TAB.ER.24H PO SCH (09:21)
[2018-02-27] MEDS: FOLIC ACID 1 MG TAB PO SCH (09:21)
[2018-02-27] MEDS: POTASSIUM CHLORIDE ER 20 MEQ TAB.ER PO SCH ×3 (09:21→23:49)
[2018-02-27] MEDS: MAGNESIUM OXIDE 400 MG TAB PO SCH ×3 (09:21→23:42)
[2018-02-27] MEDS: ENOXAPARIN 80 MG/0.8 ML SYRINGE SQ SCH ×2 (09:24→23:37)
--- NOTE | 2018-02-27 10:41 | P.PN ---
Subjective Progress Note Date: 02/27/18 Addy Villalpando, is a 58 year old male who presented to the Orthopedic Surgery office for recheck of his left knee. He is status post left total knee arthroplasty, 4 months ago . Patient was complaining of of increased pain and swelling in the left knee. Patient had multiple hospitalizations for alcohol withdrawal as well as pulmonary embolism recently. Patient was complaining of pain and swelling in the left knee.He is having difficulty with weight bearing on the left knee secondary to pain. He did have a vague history of a remote fall which he did not seeks treatment for. He was evaluated by orthopedic surgery and was admitted directly to [facility], he was started on IV antibiotic vancomycin, and is scheduled for surgery on the left knee on Wednesday. On 02/28/2018 patient was seen and examined, he is alert and oriented 3 in no apparent distress sitting at the edge of his bed there is no fever or chills no headache or dizziness no chest pain no shortness of breath no cough no nausea or vomiting no abdominal pain no diarrhea and no urinary symptoms ane in the knee is well-controlled at this time. Objective - Vital Signs Vital signs: Vital Signs Temp 97.3 F L 02/27/18 07:32 Pulse 93 02/27/18 07:32 Resp 18 02/27/18 07:32 BP 114/79 02/27/18 07:32 Pulse Ox 98 02/27/18 07:32 Intake & Output 02/26/18 02/27/18 02/27/18 18:59 06:59 18:59 Intake Total 847 240 Output Total 800 500 Balance 47 -500 240 Intake: Oral 847 240 Output: Urine 800 500 - Exam At this time patient is alert and oriented 3 in no apparent distress HEENT head normocephalic and atraumatic Neck is supple no JVD no goiter no lymphadenopathy Chest exam reveals a few scattered crackles no wheezing cardiac exam reveals regular heart sounds no gallops no murmurs Extremity exam reveals no edema no cyanosis or clubbing there is significant swelling tenderness and movement limitation in the left knee Neurological examination reveals no gross focal deficit - Labs CBC & Chem 7: 02/27/18 07:36 02/27/18 07:36 Labs: Abnormal Lab Results - Last 24 Hours (Table) 02/27/18 02/27/18 02/27/18 Range/Units 07:36 07:36 07:36 RBC 3.09 L (4.30-5.90) m/uL Hgb 9.9 L (13.0-17.5) gm/dL Hct 32.9 L (39.0-53.0) % MCV 106.3 H (80.0-100.0) fL MCHC 30.0 L (31.0-37.0) g/dL RDW 17.3 H (11.5-15.5) % INR 1.2 H (<1.2) Carbon Dioxide 32 H (22-30) mmol/L BUN 7 L (9-20) mg/dL Calcium 7.5 L (8.4-10.2) mg/dL Microbiology - Last 24 Hours (Table) 02/25/18 23:00 Blood Culture - Preliminary Blood No Growth after 24 hours Assessment and Plan Plan: #1 left knee pain and swelling patient is admitted by orthopedic surgery and was started on IV antibiotic vancomycin, he is scheduled for surgery on Wednesday #2 recent history of pulmonary embolism at this time Xarelto was discontinued he was started on Lovenox 1 mg/kg every 12 hours will discontinue that on Wednesday evening in anticipation for surgery on Wednesday #3 underlying history of excessive use alcohol, with previous history of alcohol Mr. lopez he was started on CIWA protocol #4 difficulty obtaining peripheral access consultation for PICC line placement was initiated however this is not available on the weekend in this hospital Dr. Flynn proceeded with triple-lumen placement in the left subclavian area At this time medication and labs were reviewed continue with current management Plan is for left knee surgery on Wednesday will follow closely
--- NOTE | 2018-02-27 11:05 | P.PN ---
Progress Note - Text Progress Note Date: 02/27/18 Patient is a pleasant 58-year-old male who is seen and examined bedside following evaluation for his known septic left knee status post total knee arthroplasty. He is seen with Dr. Laird. His symptoms have not changed in regards to his left knee since yesterday. He continues to have some pain at the knee. Patient has significant difficulty with IV access. Yesterday IV access was able to be obtained and vancomycin was able to be administered. Shortly after the IV failed Orders placed and Dr. Flynn was able to place a central line. Since that time, patient has been able to continue receiving vancomycin as prescribed. Patient has been seen and examined by Dr. Ren in infectious disease. Patient is being followed by Dr. Holland and medicine. Patient is known to have previously undergone multiple admissions for delirium tremens. He is currently experiencing delirium tremens and is receiving medication per medicine for management. We will plan for Dr. Holland to treat patient from a medical standpoint for the possibility of delirium tremens as well as other medical diagnoses including anticoagulation treatment. Dr. Laird is currently planning for surgical intervention this coming Wednesday, 01/2018, at which time he is planning for irrigation and debridement with placement of articulating antibiotic cement spacer. Patient's past medical history does include pulmonary embolism and deep vein thrombosis. Will plan to hold Lovenox after his dosing Wednesday. Physical Exam: Patient is awake, alert, and oriented 3 Vital signs stable Good chest excursion with deep inspiration and expiration Abdomen soft nontender Small tremor at the right upper extremity Evidence of swelling over the left knee Some pain and evidence of warmth over the left knee with palpation No significant of erythema or active drainage over the left knee Patient is able to perform dorsiflexion and plantarflexion of the left lower extremity without significant difficulty Mild pain with palpation over the entire lower extremity extending below the knee to the ankle Evidence of well-healed incisions over the bilateral anterior knees Assessment: Septic left knee status post left knee total arthroplasty Left knee pain Delirium tremens History of delirium tremens with multiple admissions for treatment History of pulmonary embolism and deep vein thrombosis Plan: 1. Patient has been seen and examined today by myself and Dr. Aravind Laird. Dr. Aravind Laird previously discussed this patient detail with Dr. Ren in infectious disease. We are currently planning for conservative treatment prior to surgical intervention this coming till 03/01/2018. At that time we will plan for surgical intervention with irrigation and debridement of the left knee with placement of articulating antibiotic spacer. He will continue with vancomycin IV as prescribed through his central line. IV antibiotic medications may be changed and managed by Dr. Ren in infectious disease. We will continue follow patient closely. Continue pain control medications as prescribed. 2. Dr. Ren in infectious disease will continue to follow the patient closely 3. Dr. Holland in medicine to manage the patient's other medical diagnoses including anticoagulation and treatment of delirium tremens; we will plan to hold Lovenox in anticipation for surgical intervention following his Wednesday morning dosing
[2018-02-27] MEDS: MULTIVITAMINS, THERA 1 EACH TAB PO SCH (12:45)
[2018-02-27] MEDS ORDERED: diphenhydrAMINE 50 MG/ML 1 ML VIAL IVP STA (16:35)
[2018-02-27] MEDS: HYDROmorphone 1 MG/ML 1 ML SYRINGE IVP PRN (20:07)
[2018-02-27] MEDS ORDERED: HALOPERIDOL LACTATE 5 MG/ML 1 ML VIAL IM PRN (21:18)
[2018-02-27] MEDS: diphenhydrAMINE 50 MG/ML 1 ML VIAL IVP PRN (21:25)
[2018-02-27] MEDS: SENNOSIDES-DOCUSATE SODIUM 1 EACH TAB PO SCH ×2 (23:37→23:49)
[2018-02-27] MEDS: THIAMINE 100 MG TAB PO SCH ×2 (23:37→23:49)
[2018-02-28] MEDS: LORazepam 2 MG/ML INJ IV PRN ×4 (01:52→16:28)
[2018-02-28] MEDS: VANCOMYCIN 1,250 MG in SODIUM CHLORIDE 0.9% 250 ML IVPB SCH ×3 (04:04→21:12)
[2018-02-28 04:41] LABS: Anisocytosis Slight; Basophils % (A) 0 %; Eosinophils # (A) 0.5 k/uL (0-0.7); Eosinophils % (A) 6 %; HCT 31.3 % (39.0-53.0); HGB 9.5 gm/dL (13.0-17.5); Hypochromasia Marked; Lymphocytes # (A) 1.7 k/uL (1.0-4.8); Lymphocytes % (A) 24 %; MCHC 30.3 g/dL (31.0-37.0); MCV 105.5 fL (80.0-100.0); Macrocytosis Marked; Mean Platelet Volume 6.8; Monocytes # (A) 0.5 k/uL (0-1.0); Monocytes % (A) 7 %; Neutrophils # (A) 4.4 k/uL (1.3-7.7); Neutrophils % (A) 61 %; Platelet Count 356 k/uL (150-450); RBC 2.97 m/uL (4.30-5.90); RDW 17.1 % (11.5-15.5); WBC 7.3 k/uL (3.8-10.6)
[2018-02-28 04:48] LABS: INR 1.1 (<1.2); Prothrombin Time 10.9 sec (9.0-12.0)
[2018-02-28 04:52] LABS: ALT 22 U/L (21-72); AST 13 U/L (17-59); Albumin 1.9 g/dL (3.5-5.0); Alkaline Phosphatase 84 U/L (38-126); Anion Gap 2 mmol/L; Blood Urea Nitrogen 6 mg/dL (9-20); Calcium 7.6 mg/dL (8.4-10.2); Carbon Dioxide 27 mmol/L (22-30); Chloride 106 mmol/L (98-107); Glucose 77 mg/dL (74-99); Potassium 4.6 mmol/L (3.5-5.1); Sodium 135 mmol/L (137-145); Total Bilirubin 0.5 mg/dL (0.2-1.3); Total Protein 4.2 g/dL (6.3-8.2)
[2018-02-28] MEDS: HYDROmorphone 1 MG/ML 1 ML SYRINGE IVP PRN (07:50)
[2018-02-28] MEDS: POTASSIUM CHLORIDE ER 20 MEQ TAB.ER PO SCH ×2 (08:49→21:23)
[2018-02-28] MEDS: MAGNESIUM OXIDE 400 MG TAB PO SCH ×2 (08:49→21:23)
[2018-02-28] MEDS: FOLIC ACID 1 MG TAB PO SCH (08:49)
[2018-02-28] MEDS: ENOXAPARIN 80 MG/0.8 ML SYRINGE SQ SCH (08:49)
[2018-02-28] MEDS: LACTATED RINGERS 1,000 ML IV SCH ×2 (08:50→11:25)
[2018-02-28] MEDS: METOPROLOL SUCCINATE (ER) 25 MG TAB.ER.24H PO SCH (08:50)
[2018-02-28] MEDS: MULTIVITAMINS, THERA 1 EACH TAB PO SCH (11:49)
--- NOTE | 2018-02-28 13:12 | P.PN ---
Subjective Progress Note Date: 02/28/18 Addy Villalpando, is a 58 year old male who presented to the Orthopedic Surgery office for recheck of his left knee. He is status post left total knee arthroplasty, 4 months ago . Patient was complaining of of increased pain and swelling in the left knee. Patient had multiple hospitalizations for alcohol withdrawal as well as pulmonary embolism recently. Patient was complaining of pain and swelling in the left knee.He is having difficulty with weight bearing on the left knee secondary to pain. He did have a vague history of a remote fall which he did not seeks treatment for. He was evaluated by orthopedic surgery and was admitted directly to [facility], he was started on IV antibiotic vancomycin, and is scheduled for surgery on the left knee on Wednesday. On 02/27/2018 patient was seen and examined, he is alert and oriented 3 in no apparent distress sitting at the edge of his bed there is no fever or chills no headache or dizziness no chest pain no shortness of breath no cough no nausea or vomiting no abdominal pain no diarrhea and no urinary symptoms ane in the knee is well-controlled at this time. 02/28/2018 patient still requiring the IV Ativan for withdrawal-like symptoms. Patient is easily agitated. Reports that he does not need to be here in the hospital. That he wants to leave right away. Patient has been receiving the IV Ativan. Aspiration culture of the left knee completed on 02/25/2018 shows presumptive MRSA. He is currently on IV vancomycin. Orthopedics are planning an I&D on Wednesday with antibiotic spacer. Objective - Vital Signs Vital signs: Vital Signs Temp 97.9 F 02/28/18 12:00 Pulse 105 H 02/28/18 12:00 Resp 18 02/28/18 12:00 BP 135/89 02/28/18 12:00 Pulse Ox 93 L 02/28/18 12:00 Intake & Output 02/27/18 02/28/18 02/28/18 18:59 06:59 18:59 Intake Total 1040 1100 600 Output Total 0 250 Balance 1040 1100 350 Weight 83.9 kg Intake: IV 1100 600 Lactated Ringers 1,000 ml 1100 600 @ 100 mls/hr IV .Q10H ALVA Rx#:[id number] Intake, IV Titration 800 Amount Lactated Ringers 1,000 ml 800 @ 100 mls/hr IV .Q10H ALVA Rx#:[id number] Oral 240 Output: Urine 0 250 Other: Voiding Method Incontinent Urinal # Voids 3 0 1 - Exam Head normocephalic Neck supple Lungs clear to auscultation bilaterally no wheezing or crackles Heart regular rate and rhythm S1-S2, no rub or gallop Abdomen is soft nontender nondistended positive bowel sounds no hepatosplenomegaly Extremities right knee swollen Neuro alert and orientated to 3 - Labs CBC & Chem 7: 02/28/18 04:15 02/28/18 04:15 Labs: Abnormal Lab Results - Last 24 Hours (Table) 02/28/18 02/28/18 Range/Units 04:15 04:15 RBC 2.97 L (4.30-5.90) m/uL Hgb 9.5 L (13.0-17.5) gm/dL Hct 31.3 L (39.0-53.0) % MCV 105.5 H (80.0-100.0) fL MCHC 30.3 L (31.0-37.0) g/dL RDW 17.1 H (11.5-15.5) % Sodium 135 L (137-145) mmol/L BUN 6 L (9-20) mg/dL Creatinine 0.62 L (0.66-1.25) mg/dL Calcium 7.6 L (8.4-10.2) mg/dL AST 13 L (17-59) U/L Total Protein 4.2 L (6.3-8.2) g/dL Albumin 1.9 L (3.5-5.0) g/dL Microbiology - Last 24 Hours (Table) 02/25/18 23:00 Blood Culture - Preliminary Blood No Growth after 48 hours Assessment and Plan Assessment: #1 septic arthritis of the left knee: Aspiration culture from 02/25/2018 growing presumptive MRSA. Patient remains on IV vancomycin. He is scheduled for surgery tomorrow for an I&D and antibiotic spacer. Infectious disease is following. #2 recent history of pulmonary embolism at this time Xarelto was discontinued. Patient's Lovenox discontinued for anticipation for surgery tomorrow #3 alcohol dependence with evidence of delirium tremens. Continue the CIWA protocol with Ativan and multivitamin, thiamine and folic acid #4 anemia check iron studies and B12 level. MCV is 105.5 #5 severe protein calorie malnutrition present on admission. Add ensure I performed an examination of the patient and discussed their management with the physician Transition Rn. I have reviewed the Physician Transition Rn's notes and agree with the documented findings and plan of care
--- NOTE | 2018-02-28 16:01 | P.PN ---
Subjective Progress Note Date: 02/28/18 Principal diagnosis: Septic left knee s/p TKA Patient is a pleasant 58-year-old male who is seen and examined bedside today. He has known septic left knee status post total knee arthroplasty. He continues to have some pain at the knee. He is receiving IV vancomycin and being managed for DTs/alcohol withdrawal and multiple comorbidities. Plan is to proceed with surgical intevention tomorrow afternoon. He has no new complaints today. Objective - Vital Signs Vital signs: Vital Signs Temp 97.9 F 02/28/18 12:00 Pulse 85 02/28/18 15:00 Resp 8 L 02/28/18 15:00 BP 118/78 02/28/18 15:00 Pulse Ox 99 02/28/18 15:00 Intake & Output 02/27/18 02/28/18 02/28/18 18:59 06:59 18:59 Intake Total 1040 1100 1150 Output Total 0 250 Balance 1040 1100 900 Weight 83.9 kg Intake: IV 1100 1150 Lactated Ringers 1,000 ml 1100 900 @ 100 mls/hr IV .Q10H [facility]VA Rx#:[id number] Vancomycin 1,250 mg In 250 Sodium Chloride 0.9% 250 ml @ 125 mls/hr IVPB Q8H [facility]VA Rx#:[id number] Intake, IV Titration 800 Amount Lactated Ringers 1,000 ml 800 @ 100 mls/hr IV .Q10H ALVA Rx#:[id number] Oral 240 Output: Urine 0 250 Other: Voiding Method Incontinent Urinal # Voids 3 0 1 - Exam Evidence of effusion at the left knee, Some pain and evidence of warmth over the left knee with palpation No significant of erythema or active drainage over the left knee Patient is able to perform dorsiflexion and plantarflexion of the left lower extremity without significant difficulty. 2+ DP pulses and less than 2 sec cap refill present - Constitutional General appearance: Present: no acute distress - Labs CBC & Chem 7: 02/28/18 04:15 02/28/18 04:15 Labs: Abnormal Lab Results - Last 24 Hours (Table) 02/28/18 02/28/18 Range/Units 04:15 04:15 RBC 2.97 L (4.30-5.90) m/uL Hgb 9.5 L (13.0-17.5) gm/dL Hct 31.3 L (39.0-53.0) % MCV 105.5 H (80.0-100.0) fL MCHC 30.3 L (31.0-37.0) g/dL RDW 17.1 H (11.5-15.5) % Sodium 135 L (137-145) mmol/L BUN 6 L (9-20) mg/dL Creatinine 0.62 L (0.66-1.25) mg/dL Calcium 7.6 L (8.4-10.2) mg/dL AST 13 L (17-59) U/L Total Protein 4.2 L (6.3-8.2) g/dL Albumin 1.9 L (3.5-5.0) g/dL Microbiology - Last 24 Hours (Table) 02/25/18 23:00 Blood Culture - Preliminary Blood No Growth after 48 hours Assessment and Plan (1) Alcohol withdrawal Narrative/Plan: Plan is to undergo surgical intervention for his septic left knee WednesdayMar 01. Continue medical management, [facility] protocol, Infectious disease consultation. Case has been boarded and he is to be NPO after MN. Hold am anticoagulation Current Visit: No Status: Acute Code(s): F10.239 - ALCOHOL DEPENDENCE WITH WITHDRAWAL, UNSPECIFIED SNOMED Code(s): 018758412 (2) Alcohol withdrawal syndrome Current Visit: No Status: Acute Code(s): F10.239 - ALCOHOL DEPENDENCE WITH WITHDRAWAL, UNSPECIFIED SNOMED Code(s): 447506812 (3) ETOH abuse Current Visit: No Status: Acute Code(s): F10.10 - ALCOHOL ABUSE, UNCOMPLICATED SNOMED Code(s): 89077640 (4) Effusion, left knee Current Visit: No Status: Acute Priority: Medium Code(s): M25.462 - EFFUSION, LEFT KNEE SNOMED Code(s): 420648769 (5) Pulmonary embolism Current Visit: No Status: Acute Code(s): I26.99 - OTHER PULMONARY EMBOLISM WITHOUT ACUTE COR PULMONALE SNOMED Code(s): 23191608 (6) Smoker Current Visit: No Status: Acute Code(s): F17.200 - NICOTINE DEPENDENCE, UNSPECIFIED, UNCOMPLICATED SNOMED Code(s): 63154113 (7) Status post left knee replacement Current Visit: No Status: Acute Code(s): Z96.652 - PRESENCE OF LEFT ARTIFICIAL KNEE JOINT SNOMED Code(s): 8734151422381 Time with Patient: Less than 30
[2018-02-28 19:43] LABS: Iron Saturation 23.38 (15.00-50.00)
[2018-02-28] MEDS: SENNOSIDES-DOCUSATE SODIUM 1 EACH TAB PO SCH (21:23)
[2018-02-28] MEDS: THIAMINE 100 MG TAB PO SCH (21:23)
--- NOTE | 2018-02-28 21:33 | P.PN ---
Subjective Progress Note Date: 02/28/18 58-year-old male presents to the hospital for further evaluation of the significant pain and swelling to his left knee. The patient has a history of degenerative joint disease and underwent a left total knee arthroplasty in 2014. The patient has had a decline of his overall health in the interim is complicated by chronic alcoholism and ongoing tobacco abuse. The patient apparently 4 months ago had an indistinct trauma to the knee and this been having difficulties with swelling since that point in time. It was worsening and constantly sought care with his orthopedic surgeon recently. An aspiration to the joint was obtained and a somewhat purulent material was found. Consequently the patient was sent to Hospital and consultations have been requested. The aspiration is already started to show evidence of MRSA infection. Antibiotic therapy with vancomycin was advised and the patient will be planned for surgical intervention soon. Medical consultation to help with his alcohol withdrawal. Patient is also given significant advice about smoking cessation and the importance of that to help him with healing of his orthopedic issues. The patient is denying high-grade fevers, chills or rigors but does not feel well overall. Patient states health has been declining over the last few years. 02/28/2018 the patient has had a significant change in that he went into delirium tremens and required transfer to selective care/ICU. He is now received a large amount of benzodiazepines and he is now much more calm and less angry and more cooperative. He will be transferred back to the surgical unit. There are plans for surgical intervention tomorrow for extraction of the infected total knee arthroplasty. Objective - Vital Signs Vital signs: Vital Signs Temp 99.1 F 02/28/18 16:00 Pulse 77 02/28/18 18:00 Resp 12 02/28/18 18:00 BP 103/70 02/28/18 18:00 Pulse Ox 98 02/28/18 18:00 Intake & Output 02/28/18 02/28/18 03/01/18 06:59 18:59 06:59 Intake Total 1100 1450 Output Total 0 250 Balance 1100 1200 Weight 83.9 kg Intake: IV 1100 1450 Lactated Ringers 1,000 ml 1100 1200 @ 100 mls/hr IV .Q10H [facility]VA Rx#:[id number] Vancomycin 1,250 mg In 250 Sodium Chloride 0.9% 250 ml @ 125 mls/hr IVPB Q8H [facility] Rx#:[id number] Output: Urine 0 250 Other: Voiding Method Incontinent Urinal # Voids 0 1 - Exam 58-year-old male in no acute distress looks older than his stated age HEENT: Anicteric conjunctiva are pink and moist nasal mucosa grossly intact without significant lesions, there is no thrush. Dentition is quite poor for age Neck: The neck is supple without significant lymphadenopathy or thyromegaly. Lungs: There is symmetrical bilateral air entry however expiratory wheezes are scattered throughout the lung jordan no nina bronchial sounds no dullness or egophony Heart: Regular rate and rhythm with an audible S1-S2, no S3 soft S4 there is no significant murmur click or rub, PMI was nondisplaced. Abdomen: Positive bowel sounds soft and nontender without palpable masses or organomegaly. There was no guarding or rebound. No evidence of ascites Extremities: The upper extremities have excellent pulses they are symmetric, no significant petechiae or telangiectasia. No splinter hemorrhages were noted. The right lower extremity reveals evidence of no acute abnormalities. Left lower extremity shows evidence of the extensive swelling to the left knee. The knee itself is warm with erythema and there is a palpable effusion. It is quite tender to manipulation. There is distinct pain to any attempts for range of motion. There is not a distinct amount of ascending erythema. There is no significant inguinal lymphadenopathy and no other lymphadenopathy is noted. Neuro: Patient is awake and alert he is receiving a large amount of Ativan and is now cooperative but sedate. - Labs CBC & Chem 7: 02/28/18 04:15 02/28/18 04:15 Labs: Abnormal Lab Results - Last 24 Hours (Table) 02/28/18 02/28/18 02/28/18 Range/Units 04:15 04:15 04:15 RBC 2.97 L (4.30-5.90) m/uL Hgb 9.5 L (13.0-17.5) gm/dL Hct 31.3 L (39.0-53.0) % MCV 105.5 H (80.0-100.0) fL MCHC 30.3 L (31.0-37.0) g/dL RDW 17.1 H (11.5-15.5) % Sodium 135 L (137-145) mmol/L BUN 6 L (9-20) mg/dL Creatinine 0.62 L (0.66-1.25) mg/dL Calcium 7.6 L (8.4-10.2) mg/dL Iron 47 L (65-175) ug/dL TIBC 201 L (228-460) ug/dL AST 13 L (17-59) U/L Total Protein 4.2 L (6.3-8.2) g/dL Albumin 1.9 L (3.5-5.0) g/dL Microbiology - Last 24 Hours (Table) 02/25/18 23:00 Blood Culture - Preliminary Blood No Growth after 48 hours Laboratory Results WBC 7.3 k/uL (3.8-10.6) 02/28/18 04:15 RBC 2.97 m/uL (4.30-5.90) L 02/28/18 04:15 Hgb 9.5 gm/dL (13.0-17.5) L 02/28/18 04:15 Hct 31.3 % (39.0-53.0) L 02/28/18 04:15 MCV 105.5 fL (80.0-100.0) H 02/28/18 04:15 MCH 32.0 pg (25.0-35.0) 02/28/18 04:15 MCHC 30.3 g/dL (31.0-37.0) L 02/28/18 04:15 RDW 17.1 % (11.5-15.5) H 02/28/18 04:15 Plt Count 356 k/uL (150-450) 02/28/18 04:15 Neutrophils % 61 % 02/28/18 04:15 Lymphocytes % 24 % 02/28/18 04:15 Monocytes % 7 % 02/28/18 04:15 Eosinophils % 6 % 02/28/18 04:15 Basophils % 0 % 02/28/18 04:15 Neutrophils # 4.4 k/uL (1.3-7.7) 02/28/18 04:15 Lymphocytes # 1.7 k/uL (1.0-4.8) 02/28/18 04:15 Monocytes # 0.5 k/uL (0-1.0) 02/28/18 04:15 Eosinophils # 0.5 k/uL (0-0.7) 02/28/18 04:15 Basophils # 0.0 k/uL (0-0.2) 02/28/18 04:15 Hypochromasia Marked 02/28/18 04:15 Anisocytosis Slight 02/28/18 04:15 Macrocytosis Marked 02/28/18 04:15 PT 10.9 sec (9.0-12.0) 02/28/18 04:15 INR 1.1 (<1.2) 02/28/18 04:15 Sodium 135 mmol/L (137-145) L 02/28/18 04:15 Potassium 4.6 mmol/L (3.5-5.1) 02/28/18 04:15 Chloride 106 mmol/L (98-107) 02/28/18 04:15 Carbon Dioxide 27 mmol/L (22-30) 02/28/18 04:15 Anion Gap 2 mmol/L 02/28/18 04:15 BUN 6 mg/dL (9-20) L 02/28/18 04:15 Creatinine 0.62 mg/dL (0.66-1.25) L 02/28/18 04:15 Est GFR (CKD-EPI)AfAm >90 (>60 ml/min/1.73 sqM) 02/28/18 04:15 Est GFR (CKD-EPI)NonAf >90 (>60 ml/min/1.73 sqM) 02/28/18 04:15 Glucose 77 mg/dL (74-99) 02/28/18 04:15 Calcium 7.6 mg/dL (8.4-10.2) L 02/28/18 04:15 Iron 47 ug/dL (65-175) L 02/28/18 04:15 TIBC 201 ug/dL (228-460) L 02/28/18 04:15 Iron Saturation 23.38 (15.00-50.00) 02/28/18 04:15 Ferritin 54.5 ng/mL (22.0-322.0) 02/28/18 04:15 Total Bilirubin 0.5 mg/dL (0.2-1.3) 02/28/18 04:15 AST 13 U/L (17-59) L 02/28/18 04:15 ALT 22 U/L (21-72) 02/28/18 04:15 Alkaline Phosphatase 84 U/L (38-126) 02/28/18 04:15 C-Reactive Protein 133.2 mg/L (<10.0) H 02/25/18 23:00 Total Protein 4.2 g/dL (6.3-8.2) L 02/28/18 04:15 Albumin 1.9 g/dL (3.5-5.0) L 02/28/18 04:15 Vitamin B12 464.0 pg/mL (200.0-944.0) 02/28/18 04:15 Vancomycin Trough 19.3 ug/mL 02/27/18 15:04 Microbiology 02/25/18 23:00 Blood Blood Culture - Preliminary No Growth after 48 hours Assessment and Plan (1) Septic arthritis of knee, left Narrative/Plan: 58-year-old male with severe general joint disease who is status post left total knee arthroplasty from 2014. The patient has developed over the last several months increasing pain to the knee. He eventually went and saw his orthopedic surgeon. In the officer was evidence of swelling to the joints and aspiration was performed. This is now showing evidence of MRSA infection. The patient consequently has been admitted in his plan for medical stabilization and then for the extraction of the left total knee arthroplasty and placement of an antibiotic spacer. The patient will require a protracted course of intravenous antibiotic therapy. He is in understanding that he will likely need to go to rehab, most likely for the entire time presented back therapy unless other arrangements can be made later on. He desires assistance for smoking cessation. Medical services helping with his alcohol withdrawal. We will ensure that he is having adequate protein supplementation and a multivitamin should be added to help with his healing. The patient is instructed that there are limited number of times that the knee can be intervened, and if this process does not go well there is a risk for an amputation. He will need to be highly cooperative to allow a good outcome. 02/28/2018 the patient is seen in the intensive care unit where he was transferred because of his delirium tremens. He is doing somewhat better at this time with a large amount of benzodiazepines that he has received but is now on a tapering dose. Is related to be going to the operating tomorrow for the extraction of the infected total knee arthroplasty and placement of the antibiotic spacer. Continue antibiotic therapy for the MRSA infection. When he is stable he will need IV access to be placed and will require likely placement in rehab to receive his course of outpatient intravenous antibiotic therapy. Current Visit: Yes Status: Acute Code(s): M00.9 - PYOGENIC ARTHRITIS, UNSPECIFIED SNOMED Code(s): 228352957 (2) Status post total left knee replacement Current Visit: No Status: Acute Code(s): Z96.652 - PRESENCE OF LEFT ARTIFICIAL KNEE JOINT SNOMED Code(s): 5490783580444 (3) MRSA infection Current Visit: Yes Status: Acute Code(s): A49.02 - METHICILLIN RESIS STAPH INFECTION, UNSP SITE SNOMED Code(s): 051333682 (4) Alcoholism Current Visit: Yes Status: Acute Code(s): F10.20 - ALCOHOL DEPENDENCE, UNCOMPLICATED SNOMED Code(s): 0986948
[2018-03-01] MEDS ORDERED: VANCOMYCIN TROUGH DUE 1 EACH MISC MISCELLANE ONE (03:00)
[2018-03-01] MEDS: LORazepam 2 MG/ML INJ IV PRN ×5 (03:35→23:17)
[2018-03-01] MEDS: VANCOMYCIN 1,250 MG in SODIUM CHLORIDE 0.9% 250 ML IVPB SCH (04:18)
[2018-03-01] MEDS: LACTATED RINGERS 1,000 ML IV SCH ×3 (06:43→18:01)
[2018-03-01] MEDS ORDERED: VANCOMYCIN IV PER PHARMACY 1 EACH MISC MISCELLANE PRN (08:09)
[2018-03-01] MEDS: MAGNESIUM OXIDE 400 MG TAB PO SCH ×2 (09:05→21:18)
[2018-03-01] MEDS: POTASSIUM CHLORIDE ER 20 MEQ TAB.ER PO SCH ×2 (09:05→21:19)
[2018-03-01] MEDS: FOLIC ACID 1 MG TAB PO SCH (09:05)
[2018-03-01] MEDS: METOPROLOL SUCCINATE (ER) 25 MG TAB.ER.24H PO SCH (09:21)
[2018-03-01] MEDS: hydrOXYzine PAMOATE 25 MG CAP PO PRN (09:31)
[2018-03-01 10:11] LABS: Anisocytosis Slight; Basophils % (A) 1 %; Eosinophils # (A) 0.4 k/uL (0-0.7); Eosinophils % (A) 6 %; HCT 30.3 % (39.0-53.0); HGB 9.5 gm/dL (13.0-17.5); Hypochromasia Moderate; Lymphocytes # (A) 1.2 k/uL (1.0-4.8); Lymphocytes % (A) 17 %; MCH 32.2 pg (25.0-35.0); MCHC 31.4 g/dL (31.0-37.0); MCV 102.5 fL (80.0-100.0); Macrocytosis Moderate; Mean Platelet Volume 6.8; Monocytes # (A) 0.6 k/uL (0-1.0); Monocytes % (A) 8 %; Neutrophils # (A) 4.6 k/uL (1.3-7.7); Neutrophils % (A) 65 %; Platelet Count 392 k/uL (150-450); RBC 2.96 m/uL (4.30-5.90); RDW 17.3 % (11.5-15.5)
[2018-03-01 10:24] LABS: Anion Gap 10 mmol/L; Blood Urea Nitrogen 5 mg/dL (9-20); Calcium 7.8 mg/dL (8.4-10.2); Carbon Dioxide 19 mmol/L (22-30); Chloride 107 mmol/L (98-107); Glucose 77 mg/dL (74-99); Potassium 4.3 mmol/L (3.5-5.1); Sodium 136 mmol/L (137-145)
[2018-03-01 10:25] LABS: INR 1.1 (<1.2); Prothrombin Time 10.6 sec (9.0-12.0)
--- NOTE | 2018-03-01 10:59 | P.PN ---
Subjective Progress Note Date: 03/01/18 Addy Villalpando, is a 58 year old male who presented to the Orthopedic Surgery office for recheck of his left knee. He is status post left total knee arthroplasty, 4 months ago . Patient was complaining of of increased pain and swelling in the left knee. Patient had multiple hospitalizations for alcohol withdrawal as well as pulmonary embolism recently. Patient was complaining of pain and swelling in the left knee.He is having difficulty with weight bearing on the left knee secondary to pain. He did have a vague history of a remote fall which he did not seeks treatment for. He was evaluated by orthopedic surgery and was admitted directly to [facility], he was started on IV antibiotic vancomycin, and is scheduled for surgery on the left knee on Wednesday. On 02/27/2018 patient was seen and examined, he is alert and oriented 3 in no apparent distress sitting at the edge of his bed there is no fever or chills no headache or dizziness no chest pain no shortness of breath no cough no nausea or vomiting no abdominal pain no diarrhea and no urinary symptoms ane in the knee is well-controlled at this time. 02/28/2018 patient still requiring the IV Ativan for withdrawal-like symptoms. Patient is easily agitated. Reports that he does not need to be here in the hospital. That he wants to leave right away. Patient has been receiving the IV Ativan. Aspiration culture of the left knee completed on 02/25/2018 shows presumptive MRSA. He is currently on IV vancomycin. Orthopedics are planning an I&D on Wednesday with antibiotic spacer. 03/01/2018 patient is scheduled for surgery today for an I&D. He did require 1 dose of IV Ativan yesterday. Nursing staff gave Vistaril this morning for his anxiety. He is no longer having tachycardia. Hemoglobin 9.5 iron low at 47. He'll be started on ferrous sulfate 325 mg twice a day. Denies any chest pain or shortness breath. Denies any nausea or vomiting. Denies any bowel movement changes or urinary symptoms Objective - Vital Signs Vital signs: Vital Signs Temp 98.1 F 03/01/18 07:55 Pulse 95 03/01/18 07:55 Resp 18 03/01/18 07:55 BP 112/73 03/01/18 07:55 Pulse Ox 95 03/01/18 07:55 Intake & Output 02/28/18 03/01/18 03/01/18 18:59 06:59 18:59 Intake Total 1450 Output Total 250 Balance 1200 Intake: IV 1450 Lactated Ringers 1,000 ml 1200 @ 100 mls/hr IV .Q10H [facility] Rx#:[id number] Vancomycin 1,250 mg In 250 Sodium Chloride 0.9% 250 ml @ 125 mls/hr IVPB Q8H [facility] Rx#:[id number] Output: Urine 250 Other: Voiding Method Urinal Urinal Urinal # Voids 1 # Bowel Movements 1 - Exam Head normocephalic Neck supple Lungs clear to auscultation bilaterally no wheezing or crackles Heart regular rate and rhythm S1-S2, no rub or gallop Abdomen is soft nontender nondistended positive bowel sounds no hepatosplenomegaly Extremities right knee swollen Neuro alert and orientated to 3 - Labs CBC & Chem 7: 03/01/18 09:41 03/01/18 09:41 Labs: Abnormal Lab Results - Last 24 Hours (Table) 02/28/18 03/01/18 03/01/18 Range/Units 04:15 03:24 09:41 RBC 2.96 L (4.30-5.90) m/uL Hgb 9.5 L (13.0-17.5) gm/dL Hct 30.3 L (39.0-53.0) % MCV 102.5 H (80.0-100.0) fL RDW 17.3 H (11.5-15.5) % Sodium (137-145) mmol/L Carbon Dioxide (22-30) mmol/L BUN (9-20) mg/dL Calcium (8.4-10.2) mg/dL Iron 47 L (65-175) ug/dL TIBC 201 L (228-460) ug/dL Vancomycin Trough 30.8 H* ug/mL 03/01/18 Range/Units 09:41 RBC (4.30-5.90) m/uL Hgb (13.0-17.5) gm/dL Hct (39.0-53.0) % MCV (80.0-100.0) fL RDW (11.5-15.5) % Sodium 136 L (137-145) mmol/L Carbon Dioxide 19 L (22-30) mmol/L BUN 5 L (9-20) mg/dL Calcium 7.8 L (8.4-10.2) mg/dL Iron (65-175) ug/dL TIBC (228-460) ug/dL Vancomycin Trough ug/mL Microbiology - Last 24 Hours (Table) 02/25/18 23:00 Blood Culture - Preliminary Blood No Growth after 72 hours Assessment and Plan Assessment: #1 septic arthritis of the left knee: Aspiration culture from 02/25/2018 growing presumptive MRSA. Patient remains on IV vancomycin. He is scheduled for surgery today for an I&D and antibiotic spacer. Orthopedics and Infectious disease is following. #2 recent history of pulmonary embolism. Currently off of anticoagulation. We will clarify with orthopedics if Xarelto can be restarted today after surgery #3 alcohol dependence with evidence of delirium tremens. Continue the CIWA protocol with Ativan and multivitamin, thiamine and folic acid #4 iron Deficiency anemia: Start ferrous sulfate 325 mg twice a day #5 severe protein calorie malnutrition present on admission. Add ensure I performed an examination of the patient and discussed their management with the physician Sales Force Developer. I have reviewed the Physician Sales Force Developer's notes and agree with the documented findings and plan of care
[2018-03-01] MEDS: MULTIVITAMINS, THERA 1 EACH TAB PO SCH (13:16)
[2018-03-01] MEDS ORDERED: IV FLUID CONTINUATION 1,000 ML IV ONE (14:28)
[2018-03-01 15:10] VITALS: BMI 28.1
[2018-03-01] MEDS ORDERED: HYDROmorphone (PF) 1 MG/ML ONE ×2 (15:15)
[2018-03-01] MEDS ORDERED: PROPOFOL 10 MG/ML 20 ML VIAL IV ONE ×2 (15:15)
[2018-03-01] MEDS ORDERED: GLYCOPYRROLATE 0.2 MG/ML 2 ML VIAL ONE ×2 (15:15)
[2018-03-01] MEDS ORDERED: ROCURONIUM BROMIDE 10 MG/ML 10 ML VIAL IV ONE ×2 (15:15)
[2018-03-01] MEDS ORDERED: SUCCINYLCHOLINE CHLORIDE 100 MG/5 ML SYR IV ONE ×2 (15:15)
[2018-03-01] MEDS ORDERED: fentaNYL (PF) 50 MCG/ML 2 ML AMP ONE ×2 (15:15)
[2018-03-01] MEDS ORDERED: PHENYLEPHRINE-0.9% NACL SYG 1 MG/10 ML SYRINGE ONE ×2 (15:15)
[2018-03-01] MEDS ORDERED: NEOSTIGMINE 1 MG/ML 10 ML VIAL ONE ×2 (15:15)
[2018-03-01] MEDS ORDERED: LACTATED RINGERS 1,000 ML IV ONE (15:30)
[2018-03-01] MEDS ORDERED: ceFAZolin 3,000 MG in SODIUM CHLORIDE 0.9% IRRIGATIO 3,000 ML IRRIGATION ONE (15:48)
[2018-03-01] MEDS ORDERED: VANCOMYCIN 1,000 MG VIAL MISCELLANE ONE (15:49)
[2018-03-01] MEDS ORDERED: TOBRAMYCIN SULFATE 1.2 GM VIAL MISCELLANE ONE ×2 (15:49)
--- NOTE | 2018-03-01 16:18 | P.OP ---
Date of Procedure: 03/01/18 Preoperative Diagnosis: Infected left total knee arthroplasty Postoperative Diagnosis: Infected left total knee arthroplasty Procedure(s) Performed: Stage I revision left total knee arthroplasty with removal of components and placement of an antibiotic articulating spacer Implants: Remedy Femoral component medium Remedy Tibial component medium [place] antibiotic cement Simplex P with Tobramycin Anesthesia: EMRE Surgeon: Bassem Traylor Cpa Tax #1: Aravind Laird Cpa Tax #2: Alba Martinez Estimated Blood Loss (ml): 200 Pathology: other (Cultures 2) Condition: stable Disposition: PACU Indications for Procedure: This is a 58-year-old male who is a patient of Dr. Laird. He's had a prior left total knee arthroplasty performed by Dr. Laird on 10/26/2014. He has subsequently developed pain and swelling in the knee, with an aspirate showing MRSA. Patient was admitted to the hospital by Dr. Laird and a plan for a stage I revision with removal of components and placement of articulating spacer was made. Due to the complexity of the surgery, Dr. Laird is asked myself to assist in performing the surgery. I reviewed the chart, examined the patient, and discussed the plan with the patient at length. He is agreeable to the plan of a stage I revision with removal of components and placement of articulating spacer and informed consent was obtained. Operative Findings: The operative findings are consistent with an infected left total knee arthroplasty. Description of Procedure: Patient was seen in the preoperative area consent was reviewed and operative site was marked with a skin marker. An adductor canal pain catheter was placed by anesthesia in the preoperative area. Patient was then brought to the operating room and given preoperative antibiotics intravenously. A general anesthetic was administered by the anesthesia department. A tourniquet was placed on the upper thigh and the lower extremity was prepped and draped in usual sterile fashion. A universal timeout was then performed which confirmed the patient's name, surgical site, ALLERGIES, and consent. The lower extremity was then elevated, but not exsanguinated and tourniquet was inflated to 250 mmHg. A standard and anterior midline approach to the knee was performed. The skin and subcutaneous tissue was dissected down to the patellar tendon. The prior surgical scar was excised. A medial parapatellar arthrotomy was then performed, with a moderate amount of purulent material encountered. This was then cultured 2 The knee was then extended, the patellar was everted , and the knee was again flexed. Next, using a small oscillating saw and osteotome, the implant cement interface was then disrupted between the femur, tibia, and patella. The implants were then removed with minimal bone loss. The bone was then freshened with a saw. Bone was then copiously irrigated with pulsatile lavage, as well as the soft tissues. Next, the spacer was sized and a trial spacer was placed. Trial was then removed and the final size spacer was opened. Antibiotic cement was then opened and mixed as well. The spacer was then lightly cemented in place. After the cemented hardened, the knee was able to be taken through range of motion of 0-90 and was fairly stable. Also, Stimulan antibiotic beads were placed. The tourniquet was released, and hemostasis was obtained. A second gram of transexamic acid was given. The knee was again irrigated. The knee was again taken through range of motion and found to be stable throughout all range of motion of 0-90, and the patella tracked normally. The fascia was then closed with #2 strata fix suture. The subcutaneous tissue was closed with 3-0 Vicryl and 3-0 strata fix. [place] were used for the skin and placed with the knee in flexion. The patient was placed in a sterile silver dressing. Patient was then transferred to recovery room in stable condition. The hair or beauty salon assistant FAY Gilliland was required due the complexity surgery and the need for a skilled surgical elastic knitter. She assisted in positioning, draping, retraction, and closure of the wound.
[2018-03-01] MEDS ORDERED: NALOXONE 0.4 MG/ML 1 ML VIAL IV PRN (16:56)
[2018-03-01] MEDS ORDERED: VANCOMYCIN 1,250 MG in SODIUM CHLORIDE 0.9% 250 ML IVPB ONE (16:56)
[2018-03-01] MEDS: HYDROmorphone 1 MG/ML 1 ML SYRINGE IVP PRN ×5 (17:01→23:34)
[2018-03-01] MEDS: SODIUM CHLORIDE 0.9% 1,000 ML IV SCH ×2 (17:50→23:36)
--- NOTE | 2018-03-01 18:02 | XR ---
PROCEDURE: XR knee limited LT - 2V DATE AND TIME: 03/01/2018 5:17 PM CLINICAL INDICATION: PHH; evaluation for postop abnormality and alignment TECHNIQUE: Department protocol. COMPARISON: 01/31/2018 FINDINGS: AP and lateral views were obtained. Anterior midline staple line noted from the distal femoral shaft level to the proximal tibial shaft l evel. Postprocedural changes are evident. Alignment pattern appears anatomic. IMPRESSION: Postoperative evaluation.
[2018-03-01] MEDS: FERROUS SULFATE 325 MG TAB PO SCH (21:18)
[2018-03-01] MEDS: THIAMINE 100 MG TAB PO SCH (21:18)
[2018-03-01] MEDS: SENNOSIDES-DOCUSATE SODIUM 1 EACH TAB PO SCH (21:19)
[2018-03-02] MEDS: LORazepam 2 MG/ML INJ IV PRN ×3 (00:39→22:28)
[2018-03-02] MEDS: HYDROcodone/APAP 5-325MG 1 EACH TAB PO PRN (00:59)
[2018-03-02] MEDS: ONDANSETRON 4 MG/2 ML VIAL IVP PRN ×3 (03:15→17:19)
[2018-03-02] MEDS: HYDROmorphone 1 MG/ML 1 ML SYRINGE IVP PRN ×3 (05:15→20:24)
[2018-03-02] MEDS: LACTATED RINGERS 1,000 ML IV SCH (07:25)
[2018-03-02] MEDS: METOPROLOL SUCCINATE (ER) 25 MG TAB.ER.24H PO SCH (08:14)
[2018-03-02] MEDS: MAGNESIUM OXIDE 400 MG TAB PO SCH ×2 (08:14→21:58)
[2018-03-02] MEDS: POTASSIUM CHLORIDE ER 20 MEQ TAB.ER PO SCH (08:14)
[2018-03-02] MEDS: FERROUS SULFATE 325 MG TAB PO SCH ×2 (08:15→21:58)
[2018-03-02] MEDS: FOLIC ACID 1 MG TAB PO SCH (08:15)
[2018-03-02] MEDS ORDERED: RIVAROXABAN 10 MG TAB PO SCH (09:00)
[2018-03-02] MEDS: LORazepam 0.5 MG TAB PO PRN (10:35)
--- NOTE | 2018-03-02 10:49 | P.PN ---
Subjective Progress Note Date: 03/02/18 This is a 58-year-old male who is status post stage I revision left total knee arthroplasty with removal of components of placement of an antibiotic spacer. This is postoperative day #1. Patient states that his pain is well controlled. Patient states that he has not been out of bed yet. Patient does complain of heartburn today. Patient denies any fever/chills, numbness, weakness, tingling, abdominal pain, shortness of breath or chest pain. Objective - Vital Signs Vital signs: Vital Signs Temp 98.4 F 03/02/18 07:00 Pulse 126 H 03/02/18 00:53 Resp 16 03/02/18 07:00 BP 147/84 03/02/18 07:00 Pulse Ox 96 03/02/18 07:00 Intake & Output 03/01/18 03/02/18 03/02/18 18:59 06:59 18:59 Intake Total 901 1750 Output Total 200 Balance 701 1750 Weight 83.9 kg Intake: IV 901 600 Lactated Ringers 1,000 ml 600 @ 100 mls/hr IV .Q10H [facility] Rx#:[id number] Intake, IV Titration 650 Amount Sodium Chloride 0.9% 1, 650 000 ml @ 65 mls/hr IV . [id number] [facility] Rx#:[id number] Oral 500 Output: Estimated Blood Loss 200 Other: Voiding Method Urinal Urinal # Voids 3 - Exam Vital signs are stable. Patient is in no acute distress and is alert and oriented 3. Calf is soft and nontender to palpation. Dressing is clean, dry, and intact. Patient has full foot and ankle motion without pain or difficulty. Neurovascular status and circulatory status are intact. - Labs CBC & Chem 7: 03/01/18 09:41 03/01/18 09:41 Labs: Abnormal Lab Results - Last 24 Hours (Table) 03/01/18 03/01/18 Range/Units 09:41 09:41 RBC 2.96 L (4.30-5.90) m/uL Hgb 9.5 L (13.0-17.5) gm/dL Hct 30.3 L (39.0-53.0) % MCV 102.5 H (80.0-100.0) fL RDW 17.3 H (11.5-15.5) % Sodium 136 L (137-145) mmol/L Carbon Dioxide 19 L (22-30) mmol/L BUN 5 L (9-20) mg/dL Calcium 7.8 L (8.4-10.2) mg/dL Microbiology - Last 24 Hours (Table) 03/01/18 16:21 Gram Stain - Preliminary Knee - Left Wound Culture - Preliminary 03/01/18 16:21 Gram Stain - Preliminary Knee - Left Wound Culture - Preliminary 03/01/18 16:21 Anaerobic Culture - Preliminary Knee - Left 03/01/18 16:21 Anaerobic Culture - Preliminary Knee - Left 02/25/18 23:00 Blood Culture - Preliminary Blood No Growth after 96 hours Assessment and Plan Assessment: Status post stage I revision left total knee arthroplasty with removal of components and placement of antibiotic spacer. History of pulmonary embolism Alcohol dependence with delirium tremens Iron deficiency anemia (1) History of total knee arthroplasty Current Visit: Yes Status: Acute Code(s): Z96.659 - PRESENCE OF UNSPECIFIED ARTIFICIAL KNEE JOINT SNOMED Code(s): 6217151123528 (2) Alcoholism Current Visit: Yes Status: Acute Code(s): F10.20 - ALCOHOL DEPENDENCE, UNCOMPLICATED SNOMED Code(s): 8916319 (3) MRSA infection Current Visit: Yes Status: Acute Code(s): A49.02 - METHICILLIN RESIS STAPH INFECTION, UNSP SITE SNOMED Code(s): 229091279 (4) Septic arthritis of knee, left Current Visit: Yes Status: Acute Code(s): M00.9 - PYOGENIC ARTHRITIS, UNSPECIFIED SNOMED Code(s): 011713958 Plan: 1. Weightbearing as tolerated to the left lower extremity. 2. Daily dressing changes. 3. Cultures are pending. 4. Appreciate input from internal medicine and infectious disease. 5. Xarelto for DVT prophylaxis. 6. Continue routine postoperative care and pain control. 7. Discharge planning.
[2018-03-02] MEDS: MULTIVITAMINS, THERA 1 EACH TAB PO SCH (11:32)
[2018-03-02 11:39] LABS: Anisocytosis Slight; Basophils % (A) 0 %; Eosinophils % (A) 0 %; HCT 30.8 % (39.0-53.0); HGB 9.5 gm/dL (13.0-17.5); Hypochromasia Moderate; Lymphocytes # (A) 1.2 k/uL (1.0-4.8); Lymphocytes % (A) 11 %; MCH 32.3 pg (25.0-35.0); MCHC 30.9 g/dL (31.0-37.0); MCV 104.4 fL (80.0-100.0); Macrocytosis Moderate; Mean Platelet Volume 7.1; Monocytes # (A) 1.2 k/uL (0-1.0); Monocytes % (A) 11 %; Neutrophils % (A) 74 %; Platelet Count 453 k/uL (150-450); RBC 2.95 m/uL (4.30-5.90); RDW 17.2 % (11.5-15.5); WBC 10.8 k/uL (3.8-10.6)
--- NOTE | 2018-03-02 11:44 | P.PN ---
Subjective Progress Note Date: 03/02/18 Addy Villalpando, is a 58 year old male who presented to the Orthopedic Surgery office for recheck of his left knee. He is status post left total knee arthroplasty, 4 months ago . Patient was complaining of of increased pain and swelling in the left knee. Patient had multiple hospitalizations for alcohol withdrawal as well as pulmonary embolism recently. Patient was complaining of pain and swelling in the left knee.He is having difficulty with weight bearing on the left knee secondary to pain. He did have a vague history of a remote fall which he did not seeks treatment for. He was evaluated by orthopedic surgery and was admitted directly to [facility], he was started on IV antibiotic vancomycin, and is scheduled for surgery on the left knee on Wednesday. On 02/27/2018 patient was seen and examined, he is alert and oriented 3 in no apparent distress sitting at the edge of his bed there is no fever or chills no headache or dizziness no chest pain no shortness of breath no cough no nausea or vomiting no abdominal pain no diarrhea and no urinary symptoms ane in the knee is well-controlled at this time. 02/28/2018 patient still requiring the IV Ativan for withdrawal-like symptoms. Patient is easily agitated. Reports that he does not need to be here in the hospital. That he wants to leave right away. Patient has been receiving the IV Ativan. Aspiration culture of the left knee completed on 02/25/2018 shows presumptive MRSA. He is currently on IV vancomycin. Orthopedics are planning an I&D on Wednesday with antibiotic spacer. 03/01/2018 patient is scheduled for surgery today for an I&D. He did require 1 dose of IV Ativan yesterday. Nursing staff gave Vistaril this morning for his anxiety. He is no longer having tachycardia. Hemoglobin 9.5 iron low at 47. He'll be started on ferrous sulfate 325 mg twice a day. Denies any chest pain or shortness breath. Denies any nausea or vomiting. Denies any bowel movement changes or urinary symptoms On 03/02/2018 patient is status post I&D postop day 1. Patient is currently resting comfortably in bed. Patient did require 3 doses of Ativan throughout night due to withdrawal. This time patient denies chest pain or shortness breath. Patient denies nausea vomiting or diarrhea. Patient denies any urinary burning or frequency Objective - Vital Signs Vital signs: Vital Signs Temp 98.4 F 03/02/18 07:00 Pulse 126 H 03/02/18 00:53 Resp 16 03/02/18 08:56 BP 147/84 03/02/18 07:00 Pulse Ox 96 03/02/18 07:00 Intake & Output 03/01/18 03/02/18 03/02/18 18:59 06:59 18:59 Intake Total 901 1750 Output Total 200 Balance 701 1750 Weight 83.9 kg 83.9 kg Intake: IV 901 600 Lactated Ringers 1,000 ml 600 @ 100 mls/hr IV .Q10H [facility] Rx#:[id number] Intake, IV Titration 650 Amount Sodium Chloride 0.9% 1, 650 000 ml @ 65 mls/hr IV . [id number] [facility] Rx#:[id number] Oral 500 Output: Estimated Blood Loss 200 Other: Voiding Method Urinal Urinal Urinal # Voids 3 - Exam Head normocephalic Neck supple Lungs clear to auscultation bilaterally no wheezing or crackles Heart regular rate and rhythm S1-S2, no rub or gallop Abdomen is soft nontender nondistended positive bowel sounds no hepatosplenomegaly Extremities no edema. Right knee dressing clean dry and intact Neuro alert and orientated to 3 - Labs CBC & Chem 7: 03/01/18 09:41 03/01/18 09:41 Labs: Microbiology - Last 24 Hours (Table) 03/01/18 16:21 Gram Stain - Preliminary Knee - Left Wound Culture - Preliminary 03/01/18 16:21 Gram Stain - Preliminary Knee - Left Wound Culture - Preliminary 03/01/18 16:21 Anaerobic Culture - Preliminary Knee - Left 03/01/18 16:21 Anaerobic Culture - Preliminary Knee - Left 02/25/18 23:00 Blood Culture - Preliminary Blood No Growth after 96 hours Assessment and Plan Assessment: #1 septic arthritis of the left knee: Aspiration culture from 02/25/2018 growing presumptive MRSA. Patient remains on IV vancomycin. He is scheduled for surgery today for an I&D and antibiotic spacer. Orthopedics and Infectious disease is following. Patient status post day 1 revision of total left knee arthroplasty with removal of components placement and antibiotic spacer placement. #2 recent history of pulmonary embolism. Currently off of anticoagulation. We will clarify with orthopedics if Xarelto can be restarted today after surgery. Xarelto has been restarted per ortho services #3 alcohol dependence with evidence of delirium tremens. Continue the CIWA protocol with Ativan and multivitamin, thiamine and folic acid #4 iron Deficiency anemia: Start ferrous sulfate 325 mg twice a day #5 severe protein calorie malnutrition present on admission. Add ensure #6 Tachycardia possibly related to fever and infection. EKG has been ordered. patient ordered for cardiac monitoring DVT prophylaxis Xarelto. GI prophylaxis Protonix I performed an examination of the patient and discussed their management with the Nurse Practitioner. I have reviewed the Nurse Practitioner's notes and agree with the documented findings and plan of care
[2018-03-02 11:48] LABS: Anion Gap 12 mmol/L; Blood Urea Nitrogen 6 mg/dL (9-20); Calcium 8.5 mg/dL (8.4-10.2); Carbon Dioxide 19 mmol/L (22-30); Chloride 105 mmol/L (98-107); Glucose 87 mg/dL (74-99); Potassium 5.3 mmol/L (3.5-5.1); Sodium 136 mmol/L (137-145)
[2018-03-02 11:54] LABS: Vancomycin,Random 11.3 ug/mL
[2018-03-02 12:01] LABS: INR 1.2 (<1.2); Prothrombin Time 11.4 sec (9.0-12.0)
[2018-03-02] MEDS ORDERED: MAG HYDROX/AL HYDROX/SIMETH 30 ML CUP PO PRN (12:37)
[2018-03-02] MEDS ORDERED: PANTOPRAZOLE 40 MG TABLET PO SCH (12:42)
[2018-03-02 13:33] LABS: Anisocytosis Slight; Basophils % (A) 0 %; Eosinophils % (A) 0 %; HCT 30.7 % (39.0-53.0); HGB 9.4 gm/dL (13.0-17.5); Hypochromasia Moderate; Lymphocytes # (A) 0.9 k/uL (1.0-4.8); Lymphocytes % (A) 9 %; MCH 31.9 pg (25.0-35.0); MCHC 30.7 g/dL (31.0-37.0); MCV 103.7 fL (80.0-100.0); Macrocytosis Moderate; Monocytes % (A) 10 %; Neutrophils # (A) 8.3 k/uL (1.3-7.7); Neutrophils % (A) 78 %; Platelet Count 453 k/uL (150-450); RBC 2.96 m/uL (4.30-5.90); RDW 17.2 % (11.5-15.5); WBC 10.6 k/uL (3.8-10.6)
[2018-03-02] MEDS: VANCOMYCIN 1,500 MG in SODIUM CHLORIDE 0.9% 250 ML IVPB SCH (17:06)
[2018-03-02] MEDS: PANTOPRAZOLE 40 MG/10 ML VIAL IVP SCH (21:57)
[2018-03-02] MEDS: THIAMINE 100 MG TAB PO SCH (21:58)
[2018-03-02] MEDS: SENNOSIDES-DOCUSATE SODIUM 1 EACH TAB PO SCH (21:58)
--- NOTE | 2018-03-02 23:55 | P.PN ---
Subjective Progress Note Date: 03/02/18 58-year-old male presents to the hospital for further evaluation of the significant pain and swelling to his left knee. The patient has a history of degenerative joint disease and underwent a left total knee arthroplasty in 2014. The patient has had a decline of his overall health in the interim is complicated by chronic alcoholism and ongoing tobacco abuse. The patient apparently 4 months ago had an indistinct trauma to the knee and this been having difficulties with swelling since that point in time. It was worsening and constantly sought care with his orthopedic surgeon recently. An aspiration to the joint was obtained and a somewhat purulent material was found. Consequently the patient was sent to Hospital and consultations have been requested. The aspiration is already started to show evidence of MRSA infection. Antibiotic therapy with vancomycin was advised and the patient will be planned for surgical intervention soon. Medical consultation to help with his alcohol withdrawal. Patient is also given significant advice about smoking cessation and the importance of that to help him with healing of his orthopedic issues. The patient is denying high-grade fevers, chills or rigors but does not feel well overall. Patient states health has been declining over the last few years. 02/28/2018 the patient has had a significant change in that he went into delirium tremens and required transfer to selective care/ICU. He is now received a large amount of benzodiazepines and he is now much more calm and less angry and more cooperative. He will be transferred back to the surgical unit. There are plans for surgical intervention tomorrow for extraction of the infected total knee arthroplasty. 03/02/2018 patient is status post extraction of the total total knee arthroplasty and antibiotic spacer placement. His delirium tremens have improved but he still is quite confused. Pain is well-controlled. He relates he needs his films with him call his but the battery has . I find the endodontics dentist for his phone looked up the phone is at 96%. Objective - Vital Signs Vital signs: Vital Signs Temp 100.2 F H 03/02/18 19:00 Pulse 120 H 03/02/18 19:00 Resp 16 03/02/18 19:00 BP 102/73 03/02/18 19:00 Pulse Ox 94 L 03/02/18 19:00 Intake & Output 03/02/18 03/02/18 03/03/18 06:59 18:59 06:59 Intake Total 1750 Balance 1750 Weight 83.9 kg Intake: IV 600 Lactated Ringers 1,000 ml 600 @ 100 mls/hr IV .Q10H [facility] Rx#:[id number] Intake, IV Titration 650 Amount Sodium Chloride 0.9% 1, 650 000 ml @ 65 mls/hr IV . [id number] [facility] Rx#:[id number] Oral 500 Other: Voiding Method Urinal Urinal # Voids 3 1 - Exam 58-year-old male in no acute distress looks older than his stated age HEENT: Anicteric conjunctiva are pink and moist nasal mucosa grossly intact without significant lesions, there is no thrush. Dentition is quite poor for age Neck: The neck is supple without significant lymphadenopathy or thyromegaly. Lungs: There is symmetrical bilateral air entry however expiratory wheezes are scattered throughout the lung jordan no nina bronchial sounds no dullness or egophony Heart: Regular rate and rhythm with an audible S1-S2, no S3 soft S4 there is no significant murmur click or rub, PMI was nondisplaced. Abdomen: Positive bowel sounds soft and nontender without palpable masses or organomegaly. There was no guarding or rebound. No evidence of ascites Extremities: The upper extremities have excellent pulses they are symmetric, no significant petechiae or telangiectasia. No splinter hemorrhages were noted. The right lower extremity reveals evidence of no acute abnormalities. Left lower extremity shows evidence of the extensive swelling to the left knee. The knee itself is warm with erythema and there is a palpable effusion. It is quite tender to manipulation. There is distinct pain to any attempts for range of motion. There is not a distinct amount of ascending erythema. There is no significant inguinal lymphadenopathy and no other lymphadenopathy is noted. Neuro: Patient is awake and alert he still remains confused and receiving Ativan. - Labs CBC & Chem 7: 03/02/18 13:07 03/02/18 10:08 Labs: Abnormal Lab Results - Last 24 Hours (Table) 03/02/18 03/02/18 03/02/18 Range/Units 10:08 10: 10:08 WBC 10.8 H (3.8-10.6) k/uL RBC 2.95 L (4.30-5.90) m/uL Hgb 9.5 L (13.0-17.5) gm/dL Hct 30.8 L (39.0-53.0) % MCV 104.4 H (80.0-100.0) fL MCHC 30.9 L (31.0-37.0) g/dL RDW 17.2 H (11.5-15.5) % Plt Count 453 H (150-450) k/uL Neutrophils # 8.0 H (1.3-7.7) k/uL Lymphocytes # (1.0-4.8) k/uL Monocytes # 1.2 H (0-1.0) k/uL INR 1.2 H (<1.2) Sodium 136 L (137-145) mmol/L Potassium 5.3 H (3.5-5.1) mmol/L Carbon Dioxide 19 L (22-30) mmol/L BUN 6 L (9-20) mg/dL 03/02/18 Range/Units 13:07 WBC (3.8-10.6) k/uL RBC 2.96 L (4.30-5.90) m/uL Hgb 9.4 L (13.0-17.5) gm/dL Hct 30.7 L (39.0-53.0) % MCV 103.7 H (80.0-100.0) fL MCHC 30.7 L (31.0-37.0) g/dL RDW 17.2 H (11.5-15.5) % Plt Count 453 H (150-450) k/uL Neutrophils # 8.3 H (1.3-7.7) k/uL Lymphocytes # 0.9 L (1.0-4.8) k/uL Monocytes # (0-1.0) k/uL INR (<1.2) Sodium (137-145) mmol/L Potassium (3.5-5.1) mmol/L Carbon Dioxide (22-30) mmol/L BUN (9-20) mg/dL Microbiology - Last 24 Hours (Table) 03/01/18 16:21 Gram Stain - Preliminary Knee - Left Wound Culture - Preliminary Presumptive MRSA 03/01/18 16:21 Gram Stain - Preliminary Knee - Left Wound Culture - Preliminary 03/01/18 16:21 Anaerobic Culture - Preliminary Knee - Left 03/01/18 16:21 Anaerobic Culture - Preliminary Knee - Left 02/25/18 23:00 Blood Culture - Preliminary Blood No Growth after 96 hours Laboratory Results WBC 10.6 k/uL (3.8-10.6) 03/02/18 13:07 RBC 2.96 m/uL (4.30-5.90) L 03/02/18 13:07 Hgb 9.4 gm/dL (13.0-17.5) L 03/02/18 13:07 Hct 30.7 % (39.0-53.0) L 03/02/18 13:07 MCV 103.7 fL (80.0-100.0) H 03/02/18 13:07 MCH 31.9 pg (25.0-35.0) 03/02/18 13:07 MCHC 30.7 g/dL (31.0-37.0) L 03/02/18 13:07 RDW 17.2 % (11.5-15.5) H 03/02/18 13:07 Plt Count 453 k/uL (150-450) H 03/02/18 13:07 Neutrophils % 78 % 03/02/18 13:07 Lymphocytes % 9 % 03/02/18 13:07 Monocytes % 10 % 03/02/18 13:07 Eosinophils % 0 % 03/02/18 13:07 Basophils % 0 % 03/02/18 13:07 Neutrophils # 8.3 k/uL (1.3-7.7) H 03/02/18 13:07 Lymphocytes # 0.9 k/uL (1.0-4.8) L 03/02/18 13:07 Monocytes # 1.0 k/uL (0-1.0) 03/02/18 13:07 Eosinophils # 0.0 k/uL (0-0.7) 03/02/18 13:07 Basophils # 0.0 k/uL (0-0.2) 03/02/18 13:07 Hypochromasia Moderate 03/02/18 13:07 Anisocytosis Slight 03/02/18 13:07 Macrocytosis Moderate 03/02/18 13:07 PT 11.4 sec (9.0-12.0) 03/02/18 10:08 INR 1.2 (<1.2) H 03/02/18 10:08 Sodium 136 mmol/L (137-145) L 03/02/18 10:08 Potassium 5.3 mmol/L (3.5-5.1) H 03/02/18 10:08 Chloride 105 mmol/L (98-107) 03/02/18 10:08 Carbon Dioxide 19 mmol/L (22-30) L 03/02/18 10:08 Anion Gap 12 mmol/L 03/02/18 10:08 BUN 6 mg/dL (9-20) L 03/02/18 10:08 Creatinine 0.90 mg/dL (0.66-1.25) 03/02/18 10:08 Est GFR (CKD-EPI)AfAm >90 (>60 ml/min/1.73 sqM) 03/02/18 10:08 Est GFR (CKD-EPI)NonAf >90 (>60 ml/min/1.73 sqM) 03/02/18 10:08 Glucose 87 mg/dL (74-99) 03/02/18 10:08 Calcium 8.5 mg/dL (8.4-10.2) 03/02/18 10:08 Iron 47 ug/dL (65-175) L 02/28/18 04:15 TIBC 201 ug/dL (228-460) L 02/28/18 04:15 Iron Saturation 23.38 (15.00-50.00) 02/28/18 04:15 Ferritin 54.5 ng/mL (22.0-322.0) 02/28/18 04:15 Total Bilirubin 0.5 mg/dL (0.2-1.3) 02/28/18 04:15 AST 13 U/L (17-59) L 02/28/18 04:15 ALT 22 U/L (21-72) 02/28/18 04:15 Alkaline Phosphatase 84 U/L (38-126) 02/28/18 04:15 C-Reactive Protein 133.2 mg/L (<10.0) H 02/25/18 23:00 Total Protein 4.2 g/dL (6.3-8.2) L 02/28/18 04:15 Albumin 1.9 g/dL (3.5-5.0) L 02/28/18 04:15 Vitamin B12 464.0 pg/mL (200.0-944.0) 02/28/18 04:15 Vancomycin Trough 30.8 ug/mL H* 03/01/18 03:24 Random Vancomycin 11.3 ug/mL 03/02/18 10:08 Microbiology 03/01/18 16:21 Knee - Left Gram Stain - Preliminary 03/01/18 16:21 Knee - Left Wound Culture - Preliminary Presumptive MRSA 03/01/18 16:21 Knee - Left Gram Stain - Preliminary 03/01/18 16:21 Knee - Left Wound Culture - Preliminary 03/01/18 16:21 Knee - Left Anaerobic Culture - Preliminary 03/01/18 16:21 Knee - Left Anaerobic Culture - Preliminary 02/25/18 23:00 Blood Blood Culture - Preliminary No Growth after 96 hours Assessment and Plan (1) Septic arthritis of knee, left Narrative/Plan: 58-year-old male with severe general joint disease who is status post left total knee arthroplasty from 2014. The patient has developed over the last several months increasing pain to the knee. He eventually went and saw his orthopedic surgeon. In the officer was evidence of swelling to the joints and aspiration was performed. This is now showing evidence of MRSA infection. The patient consequently has been admitted in his plan for medical stabilization and then for the extraction of the left total knee arthroplasty and placement of an antibiotic spacer. The patient will require a protracted course of intravenous antibiotic therapy. He is in understanding that he will likely need to go to rehab, most likely for the entire time presented back therapy unless other arrangements can be made later on. He desires assistance for smoking cessation. Medical services helping with his alcohol withdrawal. We will ensure that he is having adequate protein supplementation and a multivitamin should be added to help with his healing. The patient is instructed that there are limited number of times that the knee can be intervened, and if this process does not go well there is a risk for an amputation. He will need to be highly cooperative to allow a good outcome. 02/28/2018 the patient is seen in the intensive care unit where he was transferred because of his delirium tremens. He is doing somewhat better at this time with a large amount of benzodiazepines that he has received but is now on a tapering dose. Is related to be going to the operating tomorrow for the extraction of the infected total knee arthroplasty and placement of the antibiotic spacer. Continue antibiotic therapy for the MRSA infection. When he is stable he will need IV access to be placed and will require likely placement in rehab to receive his course of outpatient intravenous antibiotic therapy. 03/02/2018 patient is status post extraction of the left total knee arthroplasty and antibiotic spacer has been placed. Patient continues to have some improvement of his mental status but is certainly not at baseline. He remains on CWIA protocol. When he is more stable will need IV access placed and then hopefully placement in rehab to receive his course of intravenous antibiotic therapy. Smoking cessation is again discussed Current Visit: Yes Status: Acute Code(s): M00.9 - PYOGENIC ARTHRITIS, UNSPECIFIED SNOMED Code(s): 825891224 (2) Status post total left knee replacement Current Visit: No Status: Acute Code(s): Z96.652 - PRESENCE OF LEFT ARTIFICIAL KNEE JOINT SNOMED Code(s): 9644072066121 (3) MRSA infection Current Visit: Yes Status: Acute Code(s): A49.02 - METHICILLIN RESIS STAPH INFECTION, UNSP SITE SNOMED Code(s): 119704931 (4) Alcoholism Current Visit: Yes Status: Acute Code(s): F10.20 - ALCOHOL DEPENDENCE, UNCOMPLICATED SNOMED Code(s): 6711036
[2018-03-03] MEDS: ONDANSETRON 4 MG/2 ML VIAL IVP PRN ×2 (00:38→06:46)
[2018-03-03] MEDS: LORazepam 2 MG/ML INJ IV PRN ×3 (02:08→09:07)
[2018-03-03 03:49] LABS: Anisocytosis Slight; HCT 21.1 % (39.0-53.0); Hypochromasia Moderate; MCHC 31.2 g/dL (31.0-37.0); MCV 102.5 fL (80.0-100.0); Macrocytosis Moderate; Mean Platelet Volume 7.2; Platelet Count 479 k/uL (150-450); RBC 2.06 m/uL (4.30-5.90); RDW 17.8 % (11.5-15.5); WBC 14.4 k/uL (3.8-10.6)
[2018-03-03 03:59] LABS: HGB 6.6 gm/dL (13.0-17.5)
[2018-03-03 04:29] LABS: Band Neutrophils % 1 %; Basophils # (M) 0.14 k/uL (0-0.2); Lymphocytes # (M) 2.45 k/uL (1.0-4.8); Monocytes # (M) 2.02 k/uL (0-1.0); Neutrophils % (M) 67 %; Nucleated Red Blood Cells 0 /100 WBC (0-0); Total Cells Counted 100
[2018-03-03 04:30] LABS: Polychromasia Present
[2018-03-03 05:01] LABS: Glucose,Whole Blood 120 mg/dL (75-99)
[2018-03-03] MEDS ORDERED: SODIUM CHLORIDE 0.9% 1,000 ML IV ONE ×3 (05:14→09:14)
[2018-03-03 05:27] LABS: INR 1.7 (<1.2); Prothrombin Time 15.5 sec (9.0-12.0)
[2018-03-03 05:29] LABS: Albumin 1.5 g/dL (3.5-5.0); Calcium 7.8 mg/dL (8.4-10.2); Magnesium 1.7 mg/dL (1.6-2.3); Phosphorus 3.2 mg/dL (2.5-4.5); Total Bilirubin 0.3 mg/dL (0.2-1.3); Total Protein 3.4 g/dL (6.3-8.2)
[2018-03-03 05:34] LABS: Potassium 6.3 mmol/L (3.5-5.1)
[2018-03-03] MEDS: MAGNESIUM SULFATE-D5W PMX 1 GM in DEXTROSE/WATER 1 100ML.BAG IVPB SCH ×2 (05:46→06:43)
[2018-03-03 05:55] LABS: Appearance,Urine Cloudy (Clear); Bacteria,Urine Few /hpf; Bilirubin,Urine 1+ (Negative); Blood,Urine Negative (Negative); Color,Urine Yellow; Glucose,Urine (UA) Negative (Negative); Hyaline Casts,Urine 5 /lpf (0-2); Ketones,Urine 2+ (Negative); Leukocyte Esterase,Urine Negative (Negative); Mucus,Urine Rare /hpf; Nitrite,Urine Negative (Negative); Protein,Urine 1+ (Negative); RBC,Urine 3 /hpf (0-5); Specific Gravity,Urine 1.018 (1.001-1.035); Squamous Epithelial Cell,Urine 2 /hpf (0-4); WBC,Urine 1 /hpf (0-5)
--- NOTE | 2018-03-03 06:27 | XR ---
EXAMINATION TYPE: XR chest 1V portable DATE OF EXAM: 03/03/2018 CLINICAL HISTORY: Difficulty breathing and hypoxia progress study. TECHNIQUE: Single AP portable semiupright view of the chest is obtained. COMPARISON: Chest x-ray from 5 days earlier and older studies. FINDINGS: There is stable left subclavian central venous catheter. There is chronic left basilar opa city. Right lung remains clear. Cardiac silhouette size is stable and within normal limits. Backgroun d chronic parenchymal changes noted. Osseous structures are intact. IMPRESSION: Overall stable findings, chronic parenchymal changes with small left pleural effusion a nd/or pleural thickening and associated left basilar scarring and/or atelectasis all redemonstrated. No new suspicious acute pulmonary process.
[2018-03-03] MEDS: SODIUM CHLORIDE 0.9% 1,000 ML IV ONE ×2 (06:51→07:26)
[2018-03-03] MEDS: VANCOMYCIN 1,500 MG in SODIUM CHLORIDE 0.9% 250 ML IVPB SCH (07:05)
[2018-03-03] MEDS ORDERED: PANTOPRAZOLE 40 MG TABLET PO SCH (07:30)
[2018-03-03] MEDS ORDERED: INSULIN REGULAR 100 UNIT/ML VIAL IV ONE (07:37)
[2018-03-03] MEDS ORDERED: DEXTROSE 50%-WATER 50 ML SYRINGE IVP STA (07:38)
[2018-03-03] MEDS ORDERED: SODIUM BICARB 8.4% 50 ML SYR (1 MEQ/ML) IV ONE (07:38)
--- NOTE | 2018-03-03 08:10 | P.PN ---
Subjective Progress Note Date: 03/03/18 This is a 58-year-old male who is status post stage I revision left total knee arthroplasty with removal of components of placement of an antibiotic spacer. This is postoperative day #2. Patient was transferred to the ICU for GI bleed and is currently receving two units of RBCs. Patient denies any pain in the left knee. Patient denies any fever/chills, numbness, weakness, tingling, abdominal pain, shortness of breath or chest pain. Objective - Vital Signs Vital signs: Vital Signs Temp 100.4 F H 03/03/18 07:19 Pulse 122 H 03/03/18 07:19 Resp 28 H 03/03/18 07:19 BP 86/53 03/03/18 07:19 Pulse Ox 97 03/03/18 07:19 Intake & Output 03/02/18 03/03/18 03/03/18 18:59 06:59 18:59 Intake Total 1000 1000 Output Total 30 410 Balance 970 590 Weight 83.9 kg Intake: IV 1000 1000 Sodium Chloride 0.9% 1, 1000 1000 000 ml @ 999 mls/hr IV . Q1H1M [facility] Rx#:[id number] Blood Product 0 Rc As-1 Unit 0 [id number] Output: Urine 30 10 Emesis 400 Other: Voiding Method Urinal Urinal # Voids 1 - Exam Patient is in no acute distress and patient is alert. Calf is soft and nontender to palpation. Dressing is clean, dry, and intact. Patient has full foot and ankle motion without pain or difficulty. Neurovascular status and circulatory status are intact. - Labs CBC & Chem 7: 03/03/18 03:30 03/03/18 05:12 Labs: Abnormal Lab Results - Last 24 Hours (Table) 03/02/18 03/02/18 03/02/18 Range/Units 10:08 10:08 10:08 WBC 10.8 H (3.8-10.6) k/uL RBC 2.95 L (4.30-5.90) m/uL Hgb 9.5 L (13.0-17.5) gm/dL Hct 30.8 L (39.0-53.0) % MCV 104.4 H (80.0-100.0) fL MCHC 30.9 L (31.0-37.0) g/dL RDW 17.2 H (11.5-15.5) % Plt Count 453 H (150-450) k/uL Neutrophils # 8.0 H (1.3-7.7) k/uL Neutrophils # (Manual) (1.3-7.7) k/uL Lymphocytes # (1.0-4.8) k/uL Monocytes # 1.2 H (0-1.0) k/uL Monocytes # (Manual) (0-1.0) k/uL PT (9.0-12.0) sec INR 1.2 H (<1.2) Sodium 136 L (137-145) mmol/L Potassium 5.3 H (3.5-5.1) mmol/L Chloride (98-107) mmol/L Carbon Dioxide 19 L (22-30) mmol/L BUN 6 L (9-20) mg/dL Creatinine (0.66-1.25) mg/dL Glucose (74-99) mg/dL POC Glucose (mg/dL) (75-99) mg/dL Calcium (8.4-10.2) mg/dL AST (17-59) U/L Alkaline Phosphatase (38-126) U/L Total Protein (6.3-8.2) g/dL Albumin (3.5-5.0) g/dL Urine Protein (Negative) Urine Ketones (Negative) Urine Bilirubin (Negative) Urine Bacteria (None) /hpf Hyaline Casts (0-2) /lpf Urine Mucus (None) /hpf Crossmatch 03/02/18 03/03/18 03/03/18 Range/Units 13:07 03:30 05:00 WBC 14.4 H (3.8-10.6) k/uL RBC 2.96 L 2.06 L (4.30-5.90) m/uL Hgb 9.4 L 6.6 L* D (13.0-17.5) gm/dL Hct 30.7 L 21.1 L (39.0-53.0) % MCV 103.7 H 102.5 H (80.0-100.0) fL MCHC 30.7 L (31.0-37.0) g/dL RDW 17.2 H 17.8 H (11.5-15.5) % Plt Count 453 H 479 H (150-450) k/uL Neutrophils # 8.3 H (1.3-7.7) k/uL Neutrophils # (Manual) 9.70 H (1.3-7.7) k/uL Lymphocytes # 0.9 L (1.0-4.8) k/uL Monocytes # (0-1.0) k/uL Monocytes # (Manual) 2.02 H (0-1.0) k/uL PT (9.0-12.0) sec INR (<1.2) Sodium (137-145) mmol/L Potassium (3.5-5.1) mmol/L Chloride (98-107) mmol/L Carbon Dioxide (22-30) mmol/L BUN (9-20) mg/dL Creatinine (0.66-1.25) mg/dL Glucose (74-99) mg/dL POC Glucose (mg/dL) 120 H (75-99) mg/dL Calcium (8.4-10.2) mg/dL AST (17-59) U/L Alkaline Phosphatase (38-126) U/L Total Protein (6.3-8.2) g/dL Albumin (3.5-5.0) g/dL Urine Protein (Negative) Urine Ketones (Negative) Urine Bilirubin (Negative) Urine Bacteria (None) /hpf Hyaline Casts (0-2) /lpf Urine Mucus (None) /hpf Crossmatch 03/03/18 03/03/18 03/03/18 Range/Units 05:05 05:12 05:12 WBC (3.8-10.6) k/uL RBC (4.30-5.90) m/uL Hgb (13.0-17.5) gm/dL Hct (39.0-53.0) % MCV (80.0-100.0) fL MCHC (31.0-37.0) g/dL RDW (11.5-15.5) % Plt Count (150-450) k/uL Neutrophils # (1.3-7.7) k/uL Neutrophils # (Manual) (1.3-7.7) k/uL Lymphocytes # (1.0-4.8) k/uL Monocytes # (0-1.0) k/uL Monocytes # (Manual) (0-1.0) k/uL PT 15.5 H (9.0-12.0) sec INR 1.7 H (<1.2) Sodium (137-145) mmol/L Potassium 6.3 H* (3.5-5.1) mmol/L Chloride 109 H (98-107) mmol/L Carbon Dioxide (22-30) mmol/L BUN 29 H (9-20) mg/dL Creatinine 1.67 H (0.66-1.25) mg/dL Glucose 112 H (74-99) mg/dL POC Glucose (mg/dL) (75-99) mg/dL Calcium 7.8 L (8.4-10.2) mg/dL AST 12 L (17-59) U/L Alkaline Phosphatase 35 L (38-126) U/L Total Protein 3.4 L (6.3-8.2) g/dL Albumin 1.5 L (3.5-5.0) g/dL Urine Protein (Negative) Urine Ketones (Negative) Urine Bilirubin (Negative) Urine Bacteria (None) /hpf Hyaline Casts (0-2) /lpf Urine Mucus (None) /hpf Crossmatch See Detail 03/03/18 Range/Units 05:30 WBC (3.8-10.6) k/uL RBC (4.30-5.90) m/uL Hgb (13.0-17.5) gm/dL Hct (39.0-53.0) % MCV (80.0-100.0) fL MCHC (31.0-37.0) g/dL RDW (11.5-15.5) % Plt Count (150-450) k/uL Neutrophils # (1.3-7.7) k/uL Neutrophils # (Manual) (1.3-7.7) k/uL Lymphocytes # (1.0-4.8) k/uL Monocytes # (0-1.0) k/uL Monocytes # (Manual) (0-1.0) k/uL PT (9.0-12.0) sec INR (<1.2) Sodium (137-145) mmol/L Potassium (3.5-5.1) mmol/L Chloride (98-107) mmol/L Carbon Dioxide (22-30) mmol/L BUN (9-20) mg/dL Creatinine (0.66-1.25) mg/dL Glucose (74-99) mg/dL POC Glucose (mg/dL) (75-99) mg/dL Calcium (8.4-10.2) mg/dL AST (17-59) U/L Alkaline Phosphatase (38-126) U/L Total Protein (6.3-8.2) g/dL Albumin (3.5-5.0) g/dL Urine Protein 1+ H (Negative) Urine Ketones 2+ H (Negative) Urine Bilirubin 1+ H (Negative) Urine Bacteria Few H (None) /hpf Hyaline Casts 5 H (0-2) /lpf Urine Mucus Rare H (None) /hpf Crossmatch Microbiology - Last 24 Hours (Table) 02/25/18 23:00 Blood Culture - Preliminary Blood No Growth after 120 hours 03/01/18 16:21 Gram Stain - Preliminary Knee - Left Wound Culture - Preliminary Presumptive MRSA 03/01/18 16:21 Gram Stain - Preliminary Knee - Left Wound Culture - Preliminary Assessment and Plan Assessment: Status post stage I revision left total knee arthroplasty with removal of components and placement of antibiotic spacer. History of pulmonary embolism Alcohol dependence with delirium tremens Iron deficiency anemia (1) History of total knee arthroplasty Current Visit: Yes Status: Acute Code(s): Z96.659 - PRESENCE OF UNSPECIFIED ARTIFICIAL KNEE JOINT SNOMED Code(s): 0136621153475 (2) Alcoholism Current Visit: Yes Status: Acute Code(s): F10.20 - ALCOHOL DEPENDENCE, UNCOMPLICATED SNOMED Code(s): 9783518 (3) MRSA infection Current Visit: Yes Status: Acute Code(s): A49.02 - METHICILLIN RESIS STAPH INFECTION, UNSP SITE SNOMED Code(s): 922559332 (4) Septic arthritis of knee, left Current Visit: Yes Status: Acute Code(s): M00.9 - PYOGENIC ARTHRITIS, UNSPECIFIED SNOMED Code(s): 780175353 Plan: 1. Weightbearing as tolerated to the left lower extremity. 2. Daily dressing changes. 3. Cultures are pending. 4. Appreciate input from internal medicine and infectious disease. 5. Xarelto for DVT prophylaxis. 6. Continue routine postoperative care and pain control.
[2018-03-03] MEDS: PANTOPRAZOLE 40 MG/10 ML VIAL IVP SCH (08:29)
--- NOTE | 2018-03-03 08:34 | P.CONS ---
History of Present Illness - Reason for Consult Consult date: 03/03/18 coffee ground emesis Requesting physician: Benita Holland - Chief Complaint coffee ground emesis - History of Present Illness 58 y/o male PMH PE maintained on Xarelto, ETOH abuse, left TKA October 2017 admitted 02/25/18 with septic left knee. Presently on CIWA protocol; confused. History ontained from medical records and nursing staff. Yesterday afternoon had small coffee ground emesis. Hemoglobin on admission was 11.5 yesterday after emesis 9.4. Earlier this morning around 0400 had 400 ml coffee ground emesis transferred to ICU where he had another 400 ml coffee ground emesis at 0630. Hemoglobin decreased to 6.6 he is receiving 2 units of blood and 2 units of FFP and IV sandostatin requested. INR 1.7. K+ 6.3. BUN 29. Creatinine 1.6. Last dose of Xarelto 10 mg 03/02/18. T-max 101.6. NGT inserted presently 800 ml black colored emesis in canister. 2 black colored BMs this morning. SBP 70's-80's received 3L fluid. Unsure if he has a history of PUD or esophageal varices. Unsure if he has a history of EGD. Review of Systems Unable to obtain secondary to confusion medical records review for information Constitutional: Admitted with fever, denies chills, sweats, weight gain, or loss. HEENT: Negative for migraines, blurred vision or loss, earaches, drainage, tinnitus, oral mucosal lesions, dysphagia, or odynophagia. Cardiac: Negative for chest pain, arrhythmias, or palpitation. Respiratory: Negative for shortness of breath, hemoptysis, cough, or sputum production. Gastrointestinal: See HPI for pertinent findings. Genitourinary: Negative for hematuria, urgency, frequency, polyuria, dysuria, or penile discharge. Musculoskeletal: Negative for muscle aches, swelling, arthritis, and arthralgias. Neurologic: Negative for stroke or TIA. Endocrine: Negative for thyroid problems. Skin: Negative for rash or itching. Psychiatric: Negative history for depression and anxiety Past Medical History Past Medical History: Deep Vein Thrombosis (DVT), GERD/Reflux, Osteoarthritis ( OA), Pulmonary Embolus (PE), Seizure Disorder, Syncope Additional Past Medical History / Comment(s): pt statedhe had a recent flu vaccine-copy writer unable to verify date at time of this admit.Alcoholism, recent hospitalization for bilateral pulmonary embolism with clot occluding the left pulmonary artery and evidence of right ventricular strain pattern maintained on anticoagulation, COPD, chronic hypoxic respiratory failure, FEV1 of 51% of predicted with chronic hypoxic respiratory failure, chronic smoker carries more than on the PACU smoking history, alcoholism, history of delirium tremens, history of recurrent falls, history of rib fractures related to falls, GERD, diverticulosis, seizure disorder, osteoarthritis, history of small bowel obstruction secondary to incarcerated right inguinal hernia, History of Any Multi-Drug Resistant Organisms: MRSA Year Discovered:: 03/01/18 MDRO Source:: KNEE Past Surgical History: Appendectomy, Heart Catheterization, Hernia Repair, Joint Replacement, Orthopedic Surgery, Tonsillectomy Additional Past Surgical History / Comment(s): Colonoscopies and polypectomies, 10/21/15 normal cardiac cath, multiple inguinal hernia surg., bilateral knee arthroscopies and pt states bilateral knee arthroplasties."had blood clots removed from lungs at [facility], i'not sure what they did" Past Anesthesia/Blood Transfusion Reactions: No Reported Reaction Additional Psychological History / Comment(s): lives independently. Difficulties with alcohol abuse that her current multiple admissions recently with difficulties with alcohol withdrawal. Chronic tobacco use. Medically disabled. No experience. No international travel. No animal exposures Smoking Status: Current every day smoker - Past Family History Father Family Medical History: Coronary Artery Disease (CAD), Myocardial Infarction (NH ) Additional Family Medical History / Comment(s): Father of a NH at the age of 73 yrs. Mother Family Medical History: Cancer Additional Family Medical History / Comment(s): Mother had breast cancer. She is 81 yrs old and now healthy. Medications and Allergies Home Medications Medication Instructions Recorded Confirmed Type busPIRone HCl [Buspar] 10 mg PO BID PRN 12/01/17 02/25/18 History Albuterol Nebulized [Ventolin 2.5 mg INHALATION RT-Q4H 01/28/18 02/25/18 History Nebulized] Magnesium 400 mg PO BID 01/28/18 02/25/18 History Omeprazole 20 mg PO DAILY 01/28/18 02/25/18 History Thiamine HCl [Vitamin B-1] 100 mg PO HS 01/28/18 02/25/18 History Folic Acid 1 mg PO DAILY 02/16/18 02/25/18 History Ondansetron [Zofran] 4 mg PO TID PRN 02/16/18 02/25/18 History QUEtiapine FUMARATE 100 mg PO HS 02/16/18 02/25/18 History Rivaroxaban [Xarelto] 20 mg PO DAILY 02/16/18 02/25/18 History Potassium Chloride [Klor-Con 20] 20 meq PO BID 02/17/18 02/25/18 History LORazepam [Ativan] 0.5 mg PO Q8HR PRN #9 tab 02/18/18 02/25/18 Rx Metoprolol Succinate [Toprol XL] 25 mg PO DAILY #30 tab 02/18/18 02/25/18 Rx HYDROcodone/APAP 7.5-325MG [[place] 1 tab PO Q4-6H PRN 02/25/18 02/25/18 History 7.5-325] Multivitamins, Thera [Multivitamin 1 tab PO DAILY@1200 02/25/18 02/25/18 History (formulary)] Allergies Allergy/AdvReac Type Severity Reaction Status Date / Time tramadol AdvReac Mild Itching Verified 02/25/18 17:13 Physical Exam Vitals: Vital Signs Temp Pulse Pulse Pulse Resp BP BP 03/03/18 08:31 98.1 F 127 H 18 85/52 03/03/18 08:30 124 H 35 H 85/52 03/03/18 08:20 124 H 45 H 79/53 03/03/18 08:10 120 H 94 H 03/03/18 08:00 120 H 36 H 78/57 03/03/18 07:50 124 H 28 H 142/112 03/03/18 07:40 120 H 42 H 92/55 03/03/18 07:30 128 H 40 H 156/95 03/03/18 07:20 120 H 37 H 03/03/18 07:19 100.4 F H 122 H 28 H 86/53 03/03/18 07:10 124 H 26 H 60/46 03/03/18 07:00 123 H 23 87/55 03/03/18 06:50 127 H 39 H 103/81 03/03/18 06:49 100.9 F H 125 H 28 H 87/55 03/03/18 06:40 123 H 25 H 03/03/18 06:39 100.1 F H 124 H 26 H 87/48 03/03/18 06:30 130 H 31 H 100/50 03/03/18 06:20 128 H 36 H 81/56 03/03/18 06:10 122 H 27 H 92/55 03/03/18 06:00 124 H 86/54 03/03/18 05:40 124 H 79/53 03/03/18 05:30 128 H 88/51 03/03/18 05:20 126 H 03/03/18 05:10 125 H 76/47 03/03/18 05:03 126 H 03/03/18 00:31 97.1 F L 124 H 16 135/86 03/03/18 00:15 16 03/02/18 20:20 120 H 16 03/02/18 19:00 100.2 F H 120 H 16 102/73 03/02/18 16:00 16 03/02/18 14:29 98.1 F 99 16 154/91 03/02/18 08:56 16 Pulse Ox 03/03/18 08:31 91 L 03/03/18 08:30 100 03/03/18 08:20 100 03/03/18 08:10 96 03/03/18 08:00 100 03/03/18 07:50 97 03/03/18 07:40 96 03/03/18 07:30 75 L 03/03/18 07:20 63 L 03/03/18 07:19 97 03/03/18 07:10 92 L 03/03/18 07:00 03/03/18 06:50 94 L 03/03/18 06:49 97 03/03/18 06:40 03/03/18 06:39 88 L 03/03/18 06:30 88 L 03/03/18 06:20 03/03/18 06:10 82 L 03/03/18 06:00 03/03/18 05:40 03/03/18 05:30 81 L 03/03/18 05:20 03/03/18 05:10 100 03/03/18 05:03 79 L 03/03/18 00:31 98 03/03/18 00:15 03/02/18 20:20 03/02/18 19:00 94 L 03/02/18 16:00 03/02/18 14:29 95 03/02/18 08:56 Intake and Output 03/02/18 03/03/18 03/03/18 22:59 06:59 14:59 Intake Total 1000 1000 Output Total 30 410 Balance 970 590 Intake: IV 1000 1000 Sodium Chloride 0.9% 1, 1000 1000 000 ml @ 999 mls/hr IV . Q1H1M ONE Rx#:[id number] Blood Product 0 Rc As-1 Unit 0 [id number] Output: Urine 30 10 Emesis 400 Other: Voiding Method Urinal # Voids 1 1 Weight 83.9 kg General appearance: The patient is awake and confused. HET: Head is normocephalic and atraumatic. Pupils are equal and reactive. Oropharynx is clear without lesions. NG tube with black colored emesis. Neck: Supple without lymphadenopathy. Trachea midline. Heart: S1 S2. Regular rate and rhythm. Lungs: No crackles or wheezes are heard. Abdomen: Soft, nontender, nondistended with bowel sounds. No peritoneal signs. No palpable organomegaly or masses. [place] with clear ingrid urine. Extremities: Normal skin color and turgor. No cyanosis, rash, ulceration, clubbing, or edema. Radial and pedal pulses are 2/4 bilaterally. Neurological: Confused moving all extremities. Results CBC & Chem 7: 03/03/18 11:50 03/03/18 13:30 Labs: Abnormal Lab Results - Last 24 Hours (Table) 03/02/18 03/02/18 03/02/18 Range/Units 10:08 10:08 10:08 WBC 10.8 H (3.8-10.6) k/uL RBC 2.95 L (4.30-5.90) m/uL Hgb 9.5 L (13.0-17.5) gm/dL Hct 30.8 L (39.0-53.0) % MCV 104.4 H (80.0-100.0) fL MCHC 30.9 L (31.0-37.0) g/dL RDW 17.2 H (11.5-15.5) % Plt Count 453 H (150-450) k/uL Neutrophils # 8.0 H (1.3-7.7) k/uL Neutrophils # (Manual) (1.3-7.7) k/uL Lymphocytes # (1.0-4.8) k/uL Monocytes # 1.2 H (0-1.0) k/uL Monocytes # (Manual) (0-1.0) k/uL PT (9.0-12.0) sec INR 1.2 H (<1.2) Sodium 136 L (137-145) mmol/L Potassium 5.3 H (3.5-5.1) mmol/L Chloride (98-107) mmol/L Carbon Dioxide 19 L (22-30) mmol/L BUN 6 L (9-20) mg/dL Creatinine (0.66-1.25) mg/dL Glucose (74-99) mg/dL POC Glucose (mg/dL) (75-99) mg/dL Calcium (8.4-10.2) mg/dL AST (17-59) U/L Alkaline Phosphatase (38-126) U/L Total Protein (6.3-8.2) g/dL Albumin (3.5-5.0) g/dL Urine Protein (Negative) Urine Ketones (Negative) Urine Bilirubin (Negative) Urine Bacteria (None) /hpf Hyaline Casts (0-2) /lpf Urine Mucus (None) /hpf Crossmatch 03/02/18 03/03/18 03/03/18 Range/Units 13:07 03:30 05:00 WBC 14.4 H (3.8-10.6) k/uL RBC 2.96 L 2.06 L (4.30-5.90) m/uL Hgb 9.4 L 6.6 L* D (13.0-17.5) gm/dL Hct 30.7 L 21.1 L (39.0-53.0) % MCV 103.7 H 102.5 H (80.0-100.0) fL MCHC 30.7 L (31.0-37.0) g/dL RDW 17.2 H 17.8 H (11.5-15.5) % Plt Count 453 H 479 H (150-450) k/uL Neutrophils # 8.3 H (1.3-7.7) k/uL Neutrophils # (Manual) 9.70 H (1.3-7.7) k/uL Lymphocytes # 0.9 L (1.0-4.8) k/uL Monocytes # (0-1.0) k/uL Monocytes # (Manual) 2.02 H (0-1.0) k/uL PT (9.0-12.0) sec INR (<1.2) Sodium (137-145) mmol/L Potassium (3.5-5.1) mmol/L Chloride (98-107) mmol/L Carbon Dioxide (22-30) mmol/L BUN (9-20) mg/dL Creatinine (0.66-1.25) mg/dL Glucose (74-99) mg/dL POC Glucose (mg/dL) 120 H (75-99) mg/dL Calcium (8.4-10.2) mg/dL AST (17-59) U/L Alkaline Phosphatase (38-126) U/L Total Protein (6.3-8.2) g/dL Albumin (3.5-5.0) g/dL Urine Protein (Negative) Urine Ketones (Negative) Urine Bilirubin (Negative) Urine Bacteria (None) /hpf Hyaline Casts (0-2) /lpf Urine Mucus (None) /hpf Crossmatch 03/03/18 03/03/18 03/03/18 Range/Units 05:05 05:12 05:12 WBC (3.8-10.6) k/uL RBC (4.30-5.90) m/uL Hgb (13.0-17.5) gm/dL Hct (39.0-53.0) % MCV (80.0-100.0) fL MCHC (31.0-37.0) g/dL RDW (11.5-15.5) % Plt Count (150-450) k/uL Neutrophils # (1.3-7.7) k/uL Neutrophils # (Manual) (1.3-7.7) k/uL Lymphocytes # (1.0-4.8) k/uL Monocytes # (0-1.0) k/uL Monocytes # (Manual) (0-1.0) k/uL PT 15.5 H (9.0-12.0) sec INR 1.7 H (<1.2) Sodium (137-145) mmol/L Potassium 6.3 H* (3.5-5.1) mmol/L Chloride 109 H (98-107) mmol/L Carbon Dioxide (22-30) mmol/L BUN 29 H (9-20) mg/dL Creatinine 1.67 H (0.66-1.25) mg/dL Glucose 112 H (74-99) mg/dL POC Glucose (mg/dL) (75-99) mg/dL Calcium 7.8 L (8.4-10.2) mg/dL AST 12 L (17-59) U/L Alkaline Phosphatase 35 L (38-126) U/L Total Protein 3.4 L (6.3-8.2) g/dL Albumin 1.5 L (3.5-5.0) g/dL Urine Protein (Negative) Urine Ketones (Negative) Urine Bilirubin (Negative) Urine Bacteria (None) /hpf Hyaline Casts (0-2) /lpf Urine Mucus (None) /hpf Crossmatch See Detail 03/03/18 Range/Units 05:30 WBC (3.8-10.6) k/uL RBC (4.30-5.90) m/uL Hgb (13.0-17.5) gm/dL Hct (39.0-53.0) % MCV (80.0-100.0) fL MCHC (31.0-37.0) g/dL RDW (11.5-15.5) % Plt Count (150-450) k/uL Neutrophils # (1.3-7.7) k/uL Neutrophils # (Manual) (1.3-7.7) k/uL Lymphocytes # (1.0-4.8) k/uL Monocytes # (0-1.0) k/uL Monocytes # (Manual) (0-1.0) k/uL PT (9.0-12.0) sec INR (<1.2) Sodium (137-145) mmol/L Potassium (3.5-5.1) mmol/L Chloride (98-107) mmol/L Carbon Dioxide (22-30) mmol/L BUN (9-20) mg/dL Creatinine (0.66-1.25) mg/dL Glucose (74-99) mg/dL POC Glucose (mg/dL) (75-99) mg/dL Calcium (8.4-10.2) mg/dL AST (17-59) U/L Alkaline Phosphatase (38-126) U/L Total Protein (6.3-8.2) g/dL Albumin (3.5-5.0) g/dL Urine Protein 1+ H (Negative) Urine Ketones 2+ H (Negative) Urine Bilirubin 1+ H (Negative) Urine Bacteria Few H (None) /hpf Hyaline Casts 5 H (0-2) /lpf Urine Mucus Rare H (None) /hpf Crossmatch Microbiology - Last 24 Hours (Table) 02/25/18 23:00 Blood Culture - Preliminary Blood No Growth after 120 hours 03/01/18 16:21 Gram Stain - Preliminary Knee - Left Wound Culture - Preliminary Presumptive MRSA 03/01/18 16:21 Gram Stain - Preliminary Knee - Left Wound Culture - Preliminary Assessment and Plan (1) Acute upper GI bleed Narrative/Plan: Acute symptomatic acute blood loss anemia with coffee ground emesis melena in a patient admitted with septic knee, history of pulmonary embolism maintained on Xarelto with underlying ETOH abuse withdrawal. Possible esophageal variceal bleed possible peptic ulcer disease. Current Visit: Yes Status: Acute Code(s): K92.2 - GASTROINTESTINAL HEMORRHAGE, UNSPECIFIED SNOMED Code(s): 25831231 (2) Acute blood loss anemia Current Visit: Yes Status: Acute Code(s): D62 - ACUTE POSTHEMORRHAGIC ANEMIA SNOMED Code(s): 523504603 (3) Hx pulmonary embolism Current Visit: Yes Status: Acute Code(s): Z86.711 - PERSONAL HISTORY OF PULMONARY EMBOLISM SNOMED Code(s): 360055139 (4) Coagulopathy Current Visit: Yes Status: Acute Code(s): D68.9 - COAGULATION DEFECT, UNSPECIFIED SNOMED Code(s): 36009621 (5) Coffee ground emesis Current Visit: Yes Status: Acute Code(s): K92.0 - HEMATEMESIS SNOMED Code( s): 34343770 (6) Melena Current Visit: Yes Status: Acute Code(s): K92.1 - MELENA SNOMED Code(s): 7938430 (7) EtOH dependence Current Visit: Yes Status: Acute Code(s): F10.20 - ALCOHOL DEPENDENCE, UNCOMPLICATED SNOMED Code(s): 21255559 (8) Withdrawal symptoms, alcohol Current Visit: Yes Status: Acute Code(s): F10.239 - ALCOHOL DEPENDENCE WITH WITHDRAWAL, UNSPECIFIED SNOMED Code(s): 148809293 (9) History of total knee arthroplasty Current Visit: Yes Status: Acute Code(s): Z96.659 - PRESENCE OF UNSPECIFIED ARTIFICIAL KNEE JOINT SNOMED Code(s): 9511319001903 (10) Septic arthritis of knee, left Current Visit: Yes Status: Acute Code(s): M00.9 - PYOGENIC ARTHRITIS, UNSPECIFIED SNOMED Code(s): 855390882 Plan: 1. Protonix 40 mg IV BID. 2. NPO. EGD evaluation. 3. CBC Q6HR 4. IV Sandostatin. 5. IV antibiotics. 6. Blood and FFP transfusion. The substation operator helper generation has discussed the risks, benefits and alternative therapies for the above-mentioned procedure and for both sedation/analgesia as well as necessary blood product administration, if indicated, as they pertain to this patient. The patient's spouse has indicated understanding and acceptance of the risks and procedures discussed. Thank you for this kind referral and the opportunity to participate in the care of your patient. This consultation was discussed with Dr. Henson. The impression and plan of care have been directed as dictated.
[2018-03-03] MEDS ORDERED: OCTREOTIDE 200 MCG in SODIUM CHLORIDE 0.9% 100 ML IV SCH (08:45)
[2018-03-03] MEDS: SODIUM CHLORIDE 0.9% 1,000 ML IV SCH ×2 (09:41→10:50)
[2018-03-03] MEDS: METOPROLOL SUCCINATE (ER) 25 MG TAB.ER.24H PO SCH (09:42)
[2018-03-03] MEDS: FOLIC ACID 1 MG TAB PO SCH (09:42)
[2018-03-03] MEDS: FERROUS SULFATE 325 MG TAB PO SCH ×2 (09:42→23:27)
[2018-03-03 10:10] LABS: Calcium 7.4 mg/dL (8.4-10.2); Potassium 4.8 mmol/L (3.5-5.1)
--- NOTE | 2018-03-03 10:23 | P.PN ---
Subjective Progress Note Date: 03/03/18 Addy Villalpando, is a 58 year old male who presented to the Orthopedic Surgery office for recheck of his left knee. He is status post left total knee arthroplasty, 4 months ago . Patient was complaining of of increased pain and swelling in the left knee. Patient had multiple hospitalizations for alcohol withdrawal as well as pulmonary embolism recently. Patient was complaining of pain and swelling in the left knee.He is having difficulty with weight bearing on the left knee secondary to pain. He did have a vague history of a remote fall which he did not seeks treatment for. He was evaluated by orthopedic surgery and was admitted directly to [facility], he was started on IV antibiotic vancomycin, and is scheduled for surgery on the left knee on Wednesday. On 02/27/2018 patient was seen and examined, he is alert and oriented 3 in no apparent distress sitting at the edge of his bed there is no fever or chills no headache or dizziness no chest pain no shortness of breath no cough no nausea or vomiting no abdominal pain no diarrhea and no urinary symptoms ane in the knee is well-controlled at this time. 02/28/2018 patient still requiring the IV Ativan for withdrawal-like symptoms. Patient is easily agitated. Reports that he does not need to be here in the hospital. That he wants to leave right away. Patient has been receiving the IV Ativan. Aspiration culture of the left knee completed on 02/25/2018 shows presumptive MRSA. He is currently on IV vancomycin. Orthopedics are planning an I&D on Wednesday with antibiotic spacer. 03/01/2018 patient is scheduled for surgery today for an I&D. He did require 1 dose of IV Ativan yesterday. Nursing staff gave Vistaril this morning for his anxiety. He is no longer having tachycardia. Hemoglobin 9.5 iron low at 47. He'll be started on ferrous sulfate 325 mg twice a day. Denies any chest pain or shortness breath. Denies any nausea or vomiting. Denies any bowel movement changes or urinary symptoms On 03/02/2018 patient is status post I&D postop day 1. Patient is currently resting comfortably in bed. Patient did require 3 doses of Ativan throughout night due to withdrawal. This time patient denies chest pain or shortness breath. Patient denies nausea vomiting or diarrhea. Patient denies any urinary burning or frequency 03/03/2018 patient required a transfer to the ICU due to upper GI bleed. Patient had coffee-ground emesis. NG tube was inserted. Hemoglobin down to 6.6 INR 1.7 she is on IV Sandostatin. GI is following and patient is scheduled for EGD. He is also receiving blood transfusion and FFP. Nephrology is also following the patient. She is having low-grade temps 100.4 this morning. White count is up to 14.4 and he is still tachycardic and blood pressure 85/52. Objective - Vital Signs Vital signs: Vital Signs Temp 100.1 F H 03/03/18 09:42 Pulse 111 H 03/03/18 10:00 Resp 24 03/03/18 10:00 BP 107/68 03/03/18 10:00 Pulse Ox 100 03/03/18 10:00 Intake & Output 03/02/18 03/03/18 03/03/18 18:59 06:59 18:59 Intake Total 1000 4585.24 Output Total 30 1310 Balance 970 3275.24 Weight 83.9 kg Intake: IV 1000 4025.24 Octreotide 200 mcg In 25.24 Sodium Chloride 0.9% 100 ml @ 25 MCG/HR 12.62 mls/ hr IV .Q8H1M [facility] Rx#: [id number] Sodium Chloride 0.9% 1, 1000 4000 000 ml @ 999 mls/hr IV . Q1H1M [facility] Rx#:[id number] Intake, IV Titration 250 Amount Vancomycin 1,500 mg In 250 Sodium Chloride 0.9% 250 ml @ 125 mls/hr IVPB Q24HR [facility] Rx#:[id number] Blood Product 0 310 Rc As-1 Unit 0 310 [id number] Rc As-1 Unit 0 [id number] Output: Gastric Drainage 750 Urine 30 160 Emesis 400 Other: Voiding Method Urinal Urinal # Voids 1 - Exam Head normocephalic Neck supple Lungs clear to auscultation bilaterally no wheezing or crackles Heart regular rate and rhythm S1-S2, no rub or gallop Abdomen is soft nontender nondistended positive bowel sounds no hepatosplenomegaly Extremities right knee dressing clean dry and intact Neuro alert and orientated to 3 - Labs CBC & Chem 7: 03/03/18 03:30 03/03/18 05:12 Labs: Abnormal Lab Results - Last 24 Hours (Table) 03/02/18 03/02/18 03/02/18 Range/Units 10:08 10:08 10:08 WBC 10.8 H (3.8-10.6) k/uL RBC 2.95 L (4.30-5.90) m/uL Hgb 9.5 L (13.0-17.5) gm/dL Hct 30.8 L (39.0-53.0) % MCV 104.4 H (80.0-100.0) fL MCHC 30.9 L (31.0-37.0) g/dL RDW 17.2 H (11.5-15.5) % Plt Count 453 H (150-450) k/uL Neutrophils # 8.0 H (1.3-7.7) k/uL Neutrophils # (Manual) (1.3-7.7) k/uL Lymphocytes # (1.0-4.8) k/uL Monocytes # 1.2 H (0-1.0) k/uL Monocytes # (Manual) (0-1.0) k/uL PT (9.0-12.0) sec INR 1.2 H (<1.2) Sodium 136 L (137-145) mmol/L Potassium 5.3 H (3.5-5.1) mmol/L Chloride (98-107) mmol/L Carbon Dioxide 19 L (22-30) mmol/L BUN 6 L (9-20) mg/dL Creatinine (0.66-1.25) mg/dL Glucose (74-99) mg/dL POC Glucose (mg/dL) (75-99) mg/dL Calcium (8.4-10.2) mg/dL AST (17-59) U/L Alkaline Phosphatase (38-126) U/L Total Protein (6.3-8.2) g/dL Albumin (3.5-5.0) g/dL Urine Protein (Negative) Urine Ketones (Negative) Urine Bilirubin (Negative) Urine Bacteria (None) /hpf Hyaline Casts (0-2) /lpf Urine Mucus (None) /hpf Crossmatch 03/02/18 03/03/18 03/03/18 Range/Units 13:07 03:30 05:00 WBC 14.4 H (3.8-10.6) k/uL RBC 2.96 L 2.06 L (4.30-5.90) m/uL Hgb 9.4 L 6.6 L* D (13.0-17.5) gm/dL Hct 30.7 L 21.1 L (39.0-53.0) % MCV 103.7 H 102.5 H (80.0-100.0) fL MCHC 30.7 L (31.0-37.0) g/dL RDW 17.2 H 17.8 H (11.5-15.5) % Plt Count 453 H 479 H (150-450) k/uL Neutrophils # 8.3 H (1.3-7.7) k/uL Neutrophils # (Manual) 9.70 H (1.3-7.7) k/uL Lymphocytes # 0.9 L (1.0-4.8) k/uL Monocytes # (0-1.0) k/uL Monocytes # (Manual) 2.02 H (0-1.0) k/uL PT (9.0-12.0) sec INR (<1.2) Sodium (137-145) mmol/L Potassium (3.5-5.1) mmol/L Chloride (98-107) mmol/L Carbon Dioxide (22-30) mmol/L BUN (9-20) mg/dL Creatinine (0.66-1.25) mg/dL Glucose (74-99) mg/dL POC Glucose (mg/dL) 120 H (75-99) mg/dL Calcium (8.4-10.2) mg/dL AST (17-59) U/L Alkaline Phosphatase (38-126) U/L Total Protein (6.3-8.2) g/dL Albumin (3.5-5.0) g/dL Urine Protein (Negative) Urine Ketones (Negative) Urine Bilirubin (Negative) Urine Bacteria (None) /hpf Hyaline Casts (0-2) /lpf Urine Mucus (None) /hpf Crossmatch 03/03/18 03/03/18 03/03/18 Range/Units 05:05 05:12 05:12 WBC (3.8-10.6) k/uL RBC (4.30-5.90) m/uL Hgb (13.0-17.5) gm/dL Hct (39.0-53.0) % MCV (80.0-100.0) fL MCHC (31.0-37.0) g/dL RDW (11.5-15.5) % Plt Count (150-450) k/uL Neutrophils # (1.3-7.7) k/uL Neutrophils # (Manual) (1.3-7.7) k/uL Lymphocytes # (1.0-4.8) k/uL Monocytes # (0-1.0) k/uL Monocytes # (Manual) (0-1.0) k/uL PT 15.5 H (9.0-12.0) sec INR 1.7 H (<1.2) Sodium (137-145) mmol/L Potassium 6.3 H* (3.5-5.1) mmol/L Chloride 109 H (98-107) mmol/L Carbon Dioxide (22-30) mmol/L BUN 29 H (9-20) mg/dL Creatinine 1.67 H (0.66-1.25) mg/dL Glucose 112 H (74-99) mg/dL POC Glucose (mg/dL) (75-99) mg/dL Calcium 7.8 L (8.4-10.2) mg/dL AST 12 L (17-59) U/L Alkaline Phosphatase 35 L (38-126) U/L Total Protein 3.4 L (6.3-8.2) g/dL Albumin 1.5 L (3.5-5.0) g/dL Urine Protein (Negative) Urine Ketones (Negative) Urine Bilirubin (Negative) Urine Bacteria (None) /hpf Hyaline Casts (0-2) /lpf Urine Mucus (None) /hpf Crossmatch See Detail 03/03/18 Range/Units 05:30 WBC (3.8-10.6) k/uL RBC (4.30-5.90) m/uL Hgb (13.0-17.5) gm/dL Hct (39.0-53.0) % MCV (80.0-100.0) fL MCHC (31.0-37.0) g/dL RDW (11.5-15.5) % Plt Count (150-450) k/uL Neutrophils # (1.3-7.7) k/uL Neutrophils # (Manual) (1.3-7.7) k/uL Lymphocytes # (1.0-4.8) k/uL Monocytes # (0-1.0) k/uL Monocytes # (Manual) (0-1.0) k/uL PT (9.0-12.0) sec INR (<1.2) Sodium (137-145) mmol/L Potassium (3.5-5.1) mmol/L Chloride (98-107) mmol/L Carbon Dioxide (22-30) mmol/L BUN (9-20) mg/dL Creatinine (0.66-1.25) mg/dL Glucose (74-99) mg/dL POC Glucose (mg/dL) (75-99) mg/dL Calcium (8.4-10.2) mg/dL AST (17-59) U/L Alkaline Phosphatase (38-126) U/L Total Protein (6.3-8.2) g/dL Albumin (3.5-5.0) g/dL Urine Protein 1+ H (Negative) Urine Ketones 2+ H (Negative) Urine Bilirubin 1+ H (Negative) Urine Bacteria Few H (None) /hpf Hyaline Casts 5 H (0-2) /lpf Urine Mucus Rare H (None) /hpf Crossmatch Microbiology - Last 24 Hours (Table) 02/25/18 23:00 Blood Culture - Preliminary Blood No Growth after 120 hours 03/01/18 16:21 Gram Stain - Preliminary Knee - Left Wound Culture - Preliminary Presumptive MRSA Assessment and Plan Assessment: #1 septic arthritis of the left knee: Aspiration culture from 02/25/2018 growing presumptive MRSA. Patient remains on IV vancomycin. Culture growing presumptive MRSA. Status post stage I revision left total knee arthroplasty with removal of components and placement of antibiotic articulating spacer. ID following #2 recent history of pulmonary embolism. Had been on Xarelto #3 alcohol dependence with evidence of delirium tremens. Continue the CIWA protocol with Ativan and multivitamin, thiamine and folic acid #4 iron Deficiency anemia: Start ferrous sulfate 325 mg twice a day #5 severe protein calorie malnutrition present on admission. Add ensure #6 acute GI bleed with coffee-ground emesis causing acute blood loss anemia. Patient is scheduled for EGD with GI service. Xarelto discontinued. Need to rule out esophageal variceal bleed and possible peptic ulcer disease. Patient on Sandostatin. She is receiving blood transfusion and FFP. Hemoglobin 6.6. NG tube in place #7 coagulopathy #8 hyperkalemia likely related to acute kidney injury. Being corrected. Await repeat potassium level #9 acute kidney injury creatinine 1.67. Followed closely by nephrology. Continue with IV fluids #10 hypotension patient receiving IV fluid boluses. Secondary to GI bleed I performed an e and esophageal variceal bleed and possible peptic ulcer disease. Patient is currently on Sandostatinxamination of the patient and discussed their management with the physician Cheese Cook. I have reviewed the Physician Cheese Cook's notes and agree with the documented findings and plan of care
[2018-03-03 10:35] LABS: Glucose,Whole Blood 75 mg/dL (75-99)
[2018-03-03 11:16] LABS: Magnesium 2.3 mg/dL (1.6-2.3); Phosphorus 2.3 mg/dL (2.5-4.5)
[2018-03-03] MEDS: MULTIVITAMINS, THERA 1 EACH TAB PO SCH (11:33)
[2018-03-03] MEDS ORDERED: ACETAMINOPHEN IV (For NPO) 1,000 MG in EMPTY BAG 1 BAG IVPB PRN (11:45)
[2018-03-03 12:20] LABS: Anisocytosis Slight; Basophils % (A) 0 %; Eosinophils % (A) 0 %; HCT 25.9 % (39.0-53.0); Hypochromasia Slight; Lymphocytes # (A) 1.5 k/uL (1.0-4.8); Lymphocytes % (A) 14 %; MCH 30.9 pg (25.0-35.0); MCHC 32.2 g/dL (31.0-37.0); Macrocytosis Slight; Mean Platelet Volume 7.1; Monocytes # (A) 1.1 k/uL (0-1.0); Monocytes % (A) 10 %; Neutrophils # (A) 7.6 k/uL (1.3-7.7); Neutrophils % (A) 72 %; Platelet Count 373 k/uL (150-450); RDW 18.1 % (11.5-15.5); WBC 10.7 k/uL (3.8-10.6)
[2018-03-03 12:25] LABS: HGB 8.3 gm/dL (13.0-17.5)
[2018-03-03 12:26] LABS: MCV 95.8 fL (80.0-100.0)
--- NOTE | 2018-03-03 13:19 | P.CNPUL ---
History of Present Illness Consult date: 03/03/18 Reason for consult: other (Upper GI bleeding and hypotension) Chief complaint: Left knee pain and infection History of present illness: This is a 58-year-old white male with history of multiple medical problems, status post left total knee arthroplasty 4 months ago. recently evaluated at the orthopedics office on 02/25/2018, and he was complaining of left knee pain for at least 4 months. He was also complaining of swelling, patient had recent episode of deep vein thromboses and pulmonary embolism, this was treated at [facility] in [place] and he underwent pulmonary thrombectomy. Patient was discharged home on anticoagulation therapy for his DVT and pulmonary embolism. This was roughly about 2-1/2 months ago. At any rate the patient has been compliant with therapy, he is known to have history of alcoholism. Upon evaluation at the orthopedics office, otherwise other history a concern that he may have a septic knee joint. Patient was admitted to the hospital, started on antibiotics in the form of vancomycin, on 03/01/2018, patient underwent revision of left total knee arthroplasty and removal of components placement of an antibiotic articulating spacer. This was done mostly because the aspirate from his left knee was positive for MRSA. Antibiotics were being managed mostly by Dr. Ren. On 02/26/2018, patient had a central placement by Dr. Flynn. Early this morning the patient developed an episode of upper GI bleeding with coffee-ground emesis, hypotension, transferred to the ICU, and I was asked to see him on consultation. Patient received fluid boluses for low blood pressure received so far 2 units of packed RBCs, and 2 units of fresh frozen plasma. Hemoglobin earlier was 6.3 however it is 8.3 now after 2 units of packed RBCs were given. A nasogastric tube was placed, and a significant amount of coffee-ground material was obtained. Patient was seen by GI on consultation, and I believe he is scheduled to undergo EGD today. Considering his history of alcoholism, there is a major concern about possible dysphagia varices, there is also a concern about gastric ulcer disease, and being on anticoagulation therapy which is presently on hold makes the picture more complicated. Now that anticoagulation is on hold, and the patient had recent deep vein thromboses and massive pulmonary embolism I believe the patient should have a inferior vena cava filter placed as soon as possible. Hence I will consult vascular surgery to evaluate for IVC filter placement. Patient has been on Xarelto, he has history of alcohol abuse, left total knee arthroplasty done in October of 2017, presently on Ciwa protocol, and he is intermittently confused requiring Ativan as per protocol. Looking back at the patient's hemoglobin on admission it was 11.5. Has been gradually dropping down since admission to 6.3 today. His last dose of Xarelto was actually on 03/02/2018. When nasogastric tube was placed, there was at least 800 MLS of black colored emesis noted. I saw the patient shortly after he arrived to the ICU, recommended fluid boluses, I recommended blood transfusion, recommended serum ammonia level, recommended vascular surgery consultation for IVC filter placement since there is absent contraindication to anticoagulation therapy at this point. Review of Systems ROS unobtainable: due to mental status Past Medical History Past Medical History: Deep Vein Thrombosis (DVT), GERD/Reflux, Osteoarthritis ( OA), Pulmonary Embolus (PE), Seizure Disorder, Syncope Additional Past Medical History / Comment(s): pt statedhe had a recent flu vaccine-filing writer unable to verify date at time of this admit.Alcoholism, recent hospitalization for bilateral pulmonary embolism with clot occluding the left pulmonary artery and evidence of right ventricular strain pattern maintained on anticoagulation, COPD, chronic hypoxic respiratory failure, FEV1 of 51% of predicted with chronic hypoxic respiratory failure, chronic smoker carries more than on the PACU smoking history, alcoholism, history of delirium tremens, history of recurrent falls, history of rib fractures related to falls, GERD, diverticulosis, seizure disorder, osteoarthritis, history of small bowel obstruction secondary to incarcerated right inguinal hernia, History of Any Multi-Drug Resistant Organisms: MRSA Date of last positivie culture/infection: 03/01/18 MDRO Source:: KNEE Past Surgical History: Appendectomy, Heart Catheterization, Hernia Repair, Joint Replacement, Orthopedic Surgery, Tonsillectomy Additional Past Surgical History / Comment(s): Colonoscopies and polypectomies, 10/21/15 normal cardiac cath, multiple inguinal hernia surg., bilateral knee arthroscopies and pt states bilateral knee arthroplasties."had [facility], i'not sure what they did" Past Anesthesia/Blood Transfusion Reactions: No Reported Reaction Additional Psychological History / Comment(s): lives independently. Difficulties with alcohol abuse that her current multiple admissions recently with difficulties with alcohol withdrawal. Chronic tobacco use. Medically disabled. No experience. No international travel. No animal exposures Smoking Status: Current every day smoker - Past Family History Father Family Medical History: Coronary Artery Disease (CAD), Myocardial Infarction (SC ) Additional Family Medical History / Comment(s): Father of a SC at the age of 73 yrs. Mother Family Medical History: Cancer Additional Family Medical History / Comment(s): Mother had breast cancer. She is 81 yrs old and now healthy. Medications and Allergies Home Medications Medication Instructions Recorded Confirmed Type busPIRone HCl [Buspar] 10 mg PO BID PRN 12/01/17 02/25/18 History Albuterol Nebulized [Ventolin 2.5 mg INHALATION RT-Q4H 01/28/18 02/25/18 History Nebulized] Magnesium 400 mg PO BID 01/28/18 02/25/18 History Omeprazole 20 mg PO DAILY 01/28/18 02/25/18 History Thiamine HCl [Vitamin B-1] 100 mg PO HS 01/28/18 02/25/18 History Folic Acid 1 mg PO DAILY 02/16/18 02/25/18 History Ondansetron [Zofran] 4 mg PO TID PRN 02/16/18 02/25/18 History QUEtiapine FUMARATE 100 mg PO HS 02/16/18 02/25/18 History Rivaroxaban [Xarelto] 20 mg PO DAILY 02/16/18 02/25/18 History Potassium Chloride [Klor-Con 20] 20 meq PO BID 02/17/18 02/25/18 History LORazepam [Ativan] 0.5 mg PO Q8HR PRN #9 tab 02/18/18 02/25/18 Rx Metoprolol Succinate [Toprol XL] 25 mg PO DAILY #30 tab 02/18/18 02/25/18 Rx HYDROcodone/APAP 7.5-325MG [[place] 1 tab PO Q4-6H PRN 02/25/18 02/25/18 History 7.5-325] Multivitamins, Thera [Multivitamin 1 tab PO DAILY@1200 02/25/18 02/25/18 History (formulary)] Allergies Allergy/AdvReac Type Severity Reaction Status Date / Time tramadol AdvReac Mild Itching Verified 02/25/18 17:13 Physical Exam Vitals: Vital Signs Temp Pulse Pulse Pulse Resp BP BP 03/03/18 12:44 100.7 F H 105 H 26 H 98/61 03/03/18 12:34 100.9 F H 109 H 27 H 102/59 03/03/18 12:20 100.9 F H 108 H 23 104/61 03/03/18 12:00 101.3 F H 109 H 29 H 109/61 03/03/18 11:50 104 H 20 112/67 03/03/18 11:40 101.3 F H 106 H 17 104/61 03/03/18 11:30 100.7 F H 105 H 25 H 102/66 03/03/18 11:20 107 H 20 97/63 03/03/18 11:18 100.8 F H 106 H 24 97/63 03/03/18 11:10 107 H 26 H 95/57 03/03/18 11:00 107 H 27 H 116/65 03/03/18 10:50 105 H 29 H 101/65 03/03/18 10:40 106 H 25 H 91/62 03/03/18 10:30 106 H 26 H 98/61 03/03/18 10:20 108 H 25 H 102/58 03/03/18 10:12 101.3 F H 106 H 18 91/62 03/03/18 10:10 110 H 25 H 111/61 03/03/18 10:00 111 H 24 107/68 03/03/18 09:50 109 H 24 108/86 03/03/18 09:42 100.1 F H 107 H 16 108/86 03/03/18 09:40 114 H 22 91/61 03/03/18 09:32 100.7 F H 111 H 26 H 91/61 03/03/18 09:30 115 H 29 H 03/03/18 09:20 117 H 26 H 83/53 03/03/18 09:16 101.1 F H 114 H 18 99/64 03/03/18 09:10 122 H 26 H 100/62 03/03/18 09:00 123 H 26 H 03/03/18 08:50 121 H 26 H 73/63 03/03/18 08:40 126 H 30 H 85/66 03/03/18 08:31 98.1 F 127 H 18 85/52 03/03/18 08:30 124 H 35 H 85/52 03/03/18 08:20 124 H 45 H 79/53 03/03/18 08:10 120 H 94 H 03/03/18 08:00 98.3 F 120 H 36 H 78/57 03/03/18 07:50 124 H 28 H 142/112 03/03/18 07:40 120 H 42 H 92/55 03/03/18 07:30 128 H 40 H 156/95 03/03/18 07:20 120 H 37 H 03/03/18 07:19 100.4 F H 122 H 28 H 86/53 03/03/18 07:10 124 H 26 H 60/46 03/03/18 07:00 123 H 23 87/55 03/03/18 06:50 127 H 39 H 103/81 03/03/18 06:49 100.9 F H 125 H 28 H 87/55 03/03/18 06:40 123 H 25 H 03/03/18 06:39 100.1 F H 124 H 26 H 87/48 03/03/18 06:30 130 H 31 H 100/50 03/03/18 06:20 128 H 36 H 81/56 03/03/18 06:10 122 H 27 H 92/55 03/03/18 06:00 124 H 86/54 03/03/18 05:40 124 H 79/53 03/03/18 05:30 128 H 88/51 03/03/18 05:20 126 H 03/03/18 05:10 125 H 76/47 03/03/18 05:03 126 H 03/03/18 00:31 97.1 F L 124 H 16 135/86 03/03/18 00:15 16 03/02/18 20:20 120 H 16 03/02/18 19:00 100.2 F H 120 H 16 102/73 03/02/18 16:00 16 03/02/18 14:29 98.1 F 99 16 154/91 Pulse Ox 03/03/18 12:44 100 03/03/18 12:34 100 03/03/18 12:20 100 03/03/18 12:00 100 03/03/18 11:50 100 03/03/18 11:40 100 03/03/18 11:30 100 03/03/18 11:20 100 03/03/18 11:18 100 03/03/18 11:10 100 03/03/18 11:00 100 03/03/18 10:50 100 03/03/18 10:40 100 03/03/18 10:30 100 03/03/18 10:20 100 03/03/18 10:12 100 03/03/18 10:10 100 03/03/18 10:00 100 03/03/18 09:50 100 03/03/18 09:42 03/03/18 09:40 100 03/03/18 09:32 100 03/03/18 09:30 100 03/03/18 09:20 100 03/03/18 09:16 99 03/03/18 09:10 100 03/03/18 09:00 98 03/03/18 08:50 03/03/18 08:40 98 03/03/18 08:31 91 L 03/03/18 08:30 100 03/03/18 08:20 100 03/03/18 08:10 96 03/03/18 08:00 100 03/03/18 07:50 97 03/03/18 07:40 96 03/03/18 07:30 75 L 03/03/18 07:20 63 L 03/03/18 07:19 97 03/03/18 07:10 92 L 03/03/18 07:00 03/03/18 06:50 94 L 03/03/18 06:49 97 03/03/18 06:40 03/03/18 06:39 88 L 03/03/18 06:30 88 L 03/03/18 06:20 03/03/18 06:10 82 L 03/03/18 06:00 03/03/18 05:40 03/03/18 05:30 81 L 03/03/18 05:20 03/03/18 05:10 100 03/03/18 05:03 79 L 03/03/18 00:31 98 03/03/18 00:15 03/02/18 20:20 03/02/18 19:00 94 L 03/02/18 16:00 03/02/18 14:29 95 Intake and Output 03/02/18 03/03/18 03/03/18 22:59 06:59 14:59 Intake Total 1000 5521.10 Output Total 30 1430 Balance 970 4091.10 Intake: IV 1000 4363.10 Octreotide 200 mcg In 63.10 Sodium Chloride 0.9% 100 ml @ 25 MCG/HR 12.62 mls/ hr IV .Q8H1M [facility] Rx#: [id number] Sodium Chloride 0.9% 1, 300 000 ml @ 100 mls/hr IV . Q10H [facility] Rx#:[id number] Sodium Chloride 0.9% 1, 1000 4000 000 ml @ 999 mls/hr IV . Q1H1M [facility] Rx#:[id number] Intake, IV Titration 250 Amount Vancomycin 1,500 mg In 250 Sodium Chloride 0.9% 250 ml @ 125 mls/hr IVPB Q24HR [facility] Rx#:[id number] Blood Product 0 908 Ffp 24 Cpd Unit 0 [id number] Ffp 24 Cpd Unit 288 [id number] Rc As-1 Unit 0 310 [id number] Rc As-1 Unit 310 [id number] Output: Gastric Drainage 750 Urine 30 280 Emesis 400 Other: Voiding Method Urinal Indwelling Catheter # Voids 1 1 Weight 83.9 kg General appearance: Revealed a 58-year-old white male, confused, in no distress , arousable, follows simple instructions, but clearly confused. HET: Head is normocephalic and atraumatic. PERRLA, EOMI, no icterus, nasogastric tube is noted with black emesis. Neck: Short obese neck, no neck masses, no JVD, no stridor.. Heart: Distant S1 S2. Regular rate and rhythm, no murmur was appreciated. Lungs: Diminished breath sounds at the bases, no rhonchi, no wheezes. Abdomen: Obese, soft, nontender, no megaly, no rebound, no guarding, positive bowel sounds. Extremities: No clubbing edema or cyanosis, good pulses bilaterally, no rashes. Right knee is wrapped with sterile dressing, seems to be swollen, tender to palpation. Neurological: Confused moving all extremities. Follows simple instructions only. Psychiatric: Depressed mood, blunt affect, poor mental status. Lymphatics: No lymphadenopathy. Results - Laboratory Findings CBC and BMP: 03/03/18 11:50 03/03/18 09:34 PT/INR, D-dimer PT 15.5 sec (9.0-12.0) H 03/03/18 05:12 INR 1.7 (<1.2) H 03/03/18 05:12 Abnormal lab findings: Abnormal Labs 02/25/18 02/25/18 02/25/18 23:00 23:00 23:00 WBC RBC 3.63 L Hgb 11.5 L Hct 38.4 L MCV 105.9 H MCHC 29.9 L RDW 16.9 H Plt Count Neutrophils # Neutrophils # (Manual) Lymphocytes # Monocytes # Monocytes # (Manual) PT 16.4 H INR 1.8 H Sodium 136 L Potassium Chloride 97 L Carbon Dioxide 32 H BUN Creatinine Glucose 107 H POC Glucose (mg/dL) Calcium 7.8 L Phosphorus Iron TIBC AST 15 L ALT 14 L Alkaline Phosphatase C-Reactive Protein 133.2 H Total Protein 5.2 L Albumin 2.4 L Urine Protein Urine Ketones Urine Bilirubin Urine Bacteria Hyaline Casts Urine Mucus Vancomycin Trough Crossmatch 02/26/18 02/26/18 02/26/18 06:05 06:05 06:05 WBC RBC 3.31 L Hgb 11.0 L Hct 34.1 L MCV 103.0 H MCHC RDW 17.3 H Plt Count Neutrophils # Neutrophils # (Manual) Lymphocytes # Monocytes # Monocytes # (Manual) PT 14.1 H INR 1.5 H Sodium Potassium Chloride Carbon Dioxide 32 H BUN Creatinine Glucose 100 H POC Glucose (mg/dL) Calcium 7.7 L Phosphorus Iron TIBC AST ALT Alkaline Phosphatase C-Reactive Protein Total Protein Albumin Urine Protein Urine Ketones Urine Bilirubin Urine Bacteria Hyaline Casts Urine Mucus Vancomycin Trough Crossmatch 02/27/18 02/27/18 02/27/18 07:36 07:36 07:36 WBC RBC 3.09 L Hgb 9.9 L Hct 32.9 L MCV 106.3 H MCHC 30.0 L RDW 17.3 H Plt Count Neutrophils # Neutrophils # (Manual) Lymphocytes # Monocytes # Monocytes # (Manual) PT INR 1.2 H Sodium Potassium Chloride Carbon Dioxide 32 H BUN 7 L Creatinine Glucose POC Glucose (mg/dL) Calcium 7.5 L Phosphorus Iron TIBC AST ALT Alkaline Phosphatase C-Reactive Protein Total Protein Albumin Urine Protein Urine Ketones Urine Bilirubin Urine Bacteria Hyaline Casts Urine Mucus Vancomycin Trough Crossmatch 02/28/18 02/28/18 02/28/18 04:15 04:15 04:15 WBC RBC 2.97 L Hgb 9.5 L Hct 31.3 L MCV 105.5 H MCHC 30.3 L RDW 17.1 H Plt Count Neutrophils # Neutrophils # (Manual) Lymphocytes # Monocytes # Monocytes # (Manual) PT INR Sodium 135 L Potassium Chloride Carbon Dioxide BUN 6 L Creatinine 0.62 L Glucose POC Glucose (mg/dL) Calcium 7.6 L Phosphorus Iron 47 L TIBC 201 L AST 13 L ALT Alkaline Phosphatase C-Reactive Protein Total Protein 4.2 L Albumin 1.9 L Urine Protein Urine Ketones Urine Bilirubin Urine Bacteria Hyaline Casts Urine Mucus Vancomycin Trough Crossmatch 03/01/18 03/01/18 03/01/18 03:24 09:41 09:41 WBC RBC 2.96 L Hgb 9.5 L Hct 30.3 L MCV 102.5 H MCHC RDW 17.3 H Plt Count Neutrophils # Neutrophils # (Manual) Lymphocytes # Monocytes # Monocytes # (Manual) PT INR Sodium 136 L Potassium Chloride Carbon Dioxide 19 L BUN 5 L Creatinine Glucose POC Glucose (mg/dL) Calcium 7.8 L Phosphorus Iron TIBC AST ALT Alkaline Phosphatase C-Reactive Protein Total Protein Albumin Urine Protein Urine Ketones Urine Bilirubin Urine Bacteria Hyaline Casts Urine Mucus Vancomycin Trough 30.8 H* Crossmatch 03/02/18 03/02/18 03/02/18 10:08 10:08 10:08 WBC 10.8 H RBC 2.95 L Hgb 9.5 L Hct 30.8 L MCV 104.4 H MCHC 30.9 L RDW 17.2 H Plt Count 453 H Neutrophils # 8.0 H Neutrophils # (Manual) Lymphocytes # Monocytes # 1.2 H Monocytes # (Manual) PT INR 1.2 H Sodium 136 L Potassium 5.3 H Chloride Carbon Dioxide 19 L BUN 6 L Creatinine Glucose POC Glucose (mg/dL) Calcium Phosphorus Iron TIBC AST ALT Alkaline Phosphatase C-Reactive Protein Total Protein Albumin Urine Protein Urine Ketones Urine Bilirubin Urine Bacteria Hyaline Casts Urine Mucus Vancomycin Trough Crossmatch 03/02/18 03/03/18 03/03/18 13:07 03:30 05:00 WBC 14.4 H RBC 2.96 L 2.06 L Hgb 9.4 L 6.6 L* D Hct 30.7 L 21.1 L MCV 103.7 H 102.5 H MCHC 30.7 L RDW 17.2 H 17.8 H Plt Count 453 H 479 H Neutrophils # 8.3 H Neutrophils # (Manual) 9.70 H Lymphocytes # 0.9 L Monocytes # Monocytes # (Manual) 2.02 H PT INR Sodium Potassium Chloride Carbon Dioxide BUN Creatinine Glucose POC Glucose (mg/dL) 120 H Calcium Phosphorus Iron TIBC AST ALT Alkaline Phosphatase C-Reactive Protein Total Protein Albumin Urine Protein Urine Ketones Urine Bilirubin Urine Bacteria Hyaline Casts Urine Mucus Vancomycin Trough Crossmatch 03/03/18 03/03/18 03/03/18 05:05 05:12 05:12 WBC RBC Hgb Hct MCV MCHC RDW Plt Count Neutrophils # Neutrophils # (Manual) Lymphocytes # Monocytes # Monocytes # (Manual) PT 15.5 H INR 1.7 H Sodium Potassium 6.3 H* Chloride 109 H Carbon Dioxide BUN 29 H Creatinine 1.67 H Glucose 112 H POC Glucose (mg/dL) Calcium 7.8 L Phosphorus Iron TIBC AST 12 L ALT Alkaline Phosphatase 35 L C-Reactive Protein Total Protein 3.4 L Albumin 1.5 L Urine Protein Urine Ketones Urine Bilirubin Urine Bacteria Hyaline Casts Urine Mucus Vancomycin Trough Crossmatch See Detail 03/03/18 03/03/18 03/03/18 05:30 09:34 11:50 WBC 10.7 H RBC 2.70 L Hgb 8.3 L D Hct 25.9 L MCV MCHC RDW 18.1 H Plt Count Neutrophils # Neutrophils # (Manual) Lymphocytes # Monocytes # 1.1 H Monocytes # (Manual) PT INR Sodium Potassium Chloride 114 H Carbon Dioxide BUN 31 H Creatinine 1.60 H Glucose 65 L POC Glucose (mg/dL) Calcium 7.4 L Phosphorus 2.3 L Iron TIBC AST ALT Alkaline Phosphatase C-Reactive Protein Total Protein Albumin Urine Protein 1+ H Urine Ketones 2+ H Urine Bilirubin 1+ H Urine Bacteria Few H Hyaline Casts 5 H Urine Mucus Rare H Vancomycin Trough Crossmatch - Diagnostic Findings Chest x-ray: image reviewed (Minimal left basilar scarring otherwise unremarkable. No acute process noted) Assessment and Plan Assessment: Impression: 1 acute upper GI bleeding, differential diagnoses includes esophageal varices, erosive gastritis, peptic ulcer disease. 2 acute blood loss and anemia secondary to 1. 3 acute septic left knee joint,/pyogenic arthritis, recent left arthroplasty patient is status post revision and removal of hardware. Placement of antibiotic spacer. This is secondary to MRSA. 4 hypotension most likely secondary to GI blood losses, however the possibility of sepsis is not entirely ruled out. Patient does have significant left knee infection. 5 history of massive pulmonary embolism requiring thrombectomy/embolectomy done recently at [facility]. Patient has been on Xarelto which is now on hold, patient will require IVC filter placement. 6 alcohol dependence and alcoholism, patient is high risk for alcohol withdrawal hence he is now on the CIWA protocol. 7 multiple comorbidities including osteoarthritis, seizure disorder, chronic hypoxic respiratory failure and underlying COPD which is presently inactive, chronic smoker, history of recurrent episodes of alcohol withdrawal, history of rib fractures related to falls, history of incarcerated right inguinal hernia Recommendation: Continue blood transfusion and maintain hemoglobin above 7. Continue Protonix, awaiting GI input regarding EGD today hopefully. Continue antibiotics for his septic knee joint, monitor blood pressure closely, continue CIWA protocol for alcohol withdrawal, would also recommend vascular surgery evaluation, I would strongly recommend a Juan M filter placement. In the meantime continue to hold Xarelto. Prognosis is definitely poor and guarded. We'll continue to follow. Discussed his condition with at bedside. Time with Patient: Greater than 30
[2018-03-03] MEDS ORDERED: SODIUM CHLORIDE 0.9% 500 ML IV ONE (13:25)
[2018-03-03] MEDS ORDERED: MIDAZOLAM 2 MG/2 ML VIAL ONE (13:26)
[2018-03-03] MEDS ORDERED: LIDOCAINE 1% INJ 10MG/ML (20 ML MDV) ONE (13:26)
[2018-03-03] MEDS ORDERED: FUROSEMIDE 10 MG/ML 2 ML VIAL IV ONE (13:30)
--- NOTE | 2018-03-03 13:51 | P.PCN ---
Date of Procedure: 03/03/18 Procedure(s) Performed: BRIEF HISTORY: Patient is a 58-year-old, pleasant, white male, scheduled for an upper endoscopy in the intensive care unit for liver lesion of acute upper GI bleed. Patient had multiple episodes of coffee-ground emesis starting yesterday evening and Dr. Stover from 11-6.5 g/dL. Head NG tube placed this morning shortly after he was transferred to the intensive care unit an approximately 1 L of coffee-ground material was aspirated. Patient has history of heavy alcohol abuse. He has long-standing history of GERD and has been on Protonix 40 mg twice daily. He has been on Xarelto for PE which has been on hold. He scheduled for an upper endoscopy at the bedside. PROCEDURE PERFORMED: Esophagogastroduodenoscopy. PREOPERATIVE DIAGNOSIS: Acute upper GI bleed. IV sedation per anesthesia. PROCEDURE: After informed consent was obtained, the patient was brought into the endoscopy unit. IV sedation was administered by Anesthesia under continuous monitoring. Initially the Olympus GIF-140 video endoscope was inserted into the mouth. Esophagus intubated without any difficulty. It was gradually advanced into the stomach and duodenum and carefully examined. The bulb and the second part of the duodenum appeared normal. The scope at this time was withdrawn to the stomach, adequately insufflated with air, and upon careful examination, mucosa of the antrum, body, cardia and the fundus appeared normal. No gastric varices seen. The scope was then withdrawn into the esophagus. Moderate size hernia. The GE junction was located at 36 cm from the incisors. There were linear erosions or ulcerations noted in the mid and distal esophagus extending from 25-36 cm to the incisors consistent with LA grade D reflux esophagitis. There was no active bleeding identified. There were no esophageal varices seen. Rest of the esophagus appeared normal and the patient tolerated the procedure well. IMPRESSION: 1. Linear erosions or ulcerations in the mid and distal esophagus consistent with LA grade D reflux esophagitis. 2. Moderate size hiatal hernia. RECOMMENDATIONS: The findings of this examination were discussed with the patient as well as his family. He will be started on clear liquid diet and monitor CBC every 6 hours. Continue with Prilosec 20 mg every 12 hours. Hold the Xarelto for 2-3 days.
--- NOTE | 2018-03-03 14:50 | US ---
EXAMINATION TYPE: US venous doppler duplex LE DATE OF EXAM: 03/03/2018 2:37 PM COMPARISON: US 10/28/2014 CLINICAL HISTORY: possible filter placement, hx of DVT and PE. SIDE PERFORMED: Bilateral TECHNIQUE: The lower extremity deep venous system is examined utilizing real time linear array sonog jackie with graded compression, doppler sonography and color-flow sonography. VESSELS IMAGED: External Iliac Vein (EIV) Common Femoral Vein Deep Femoral Vein Greater Saphenous Vein * Femoral Vein Popliteal Vein Small Saphenous Vein * Proximal Calf Veins (* superficial vessels) There is normal flow, compressibility, vascular waveforms. Right Leg: Appears negative for DVT Left Leg: Appears negative for DVT Within the right groin, there is a fluid collection visualized measuring 3.6 x 2.5 x 3.5 cm of unknow n etiology. Per RN, no recent procedures within the right groin. Subcutaneous edema channels are noted incidentally. IMPRESSION: No evident deep venous thrombosis at or above the knees. Indeterminate right groin flui d collection.
[2018-03-03 18:00] LABS: Anisocytosis Slight; Basophils % (A) 0 %; Eosinophils % (A) 0 %; HCT 23.2 % (39.0-53.0); HGB 7.2 gm/dL (13.0-17.5); Hypochromasia Marked; Lymphocytes # (A) 1.6 k/uL (1.0-4.8); Lymphocytes % (A) 16 %; MCH 30.4 pg (25.0-35.0); MCHC 30.8 g/dL (31.0-37.0); MCV 98.7 fL (80.0-100.0); Macrocytosis Slight; Mean Platelet Volume 7.2; Monocytes # (A) 0.9 k/uL (0-1.0); Monocytes % (A) 8 %; Neutrophils # (A) 7.4 k/uL (1.3-7.7); Neutrophils % (A) 72 %; Platelet Count 361 k/uL (150-450); Poikilocytosis Slight; RBC 2.35 m/uL (4.30-5.90); RDW 18.4 % (11.5-15.5); WBC 10.4 k/uL (3.8-10.6)
[2018-03-03 19:09] LABS: Glucose,Whole Blood 147 mg/dL (75-99)
--- NOTE | 2018-03-03 21:10 | CONS ---
CONSULTATION REASON FOR CONSULT: Renal failure, hyperkalemia. HISTORY OF PRESENT ILLNESS: The patient is a 58-year-old male who was brought in to the hospital initially on 02/26/2018 by Orthopedics for left knee arthroplasty infection. His total left knee arthroplasty was performed on 10/26/2014 initially. On 03/01/2018 patient had stage I revision of left total knee arthroplasty with removal of components and placement of antibiotic spacer. While patient was on the regular floor he developed significant coffee-ground emesis and currently has an NG tube in place and continues to have active bleeding. His hemoglobin was down to 6.6 g/dL. Serum creatinine was 1.6. Previous creatinine was 0.9 on 03/02/2018, which was yesterday, and 0.67 prior to that. Blood pressure has been low, with systolic in the 80s. Patient is receiving fluid boluses. He has not been started on pressors yet. Urine output has picked up. Initial potassium was at 6.3. It is now down to 4.8. PAST MEDICAL HISTORY: 1. Osteoarthritis. 2. Hypertension. 3. Recent left knee arthroplasty revision. 4. History of DVT and PE. 5. Seizure disorder. 6. History of EtOH abuse. 7. Diverticulosis. 8. Bowel obstruction with incarcerated right inguinal hernia. PAST SURGICAL HISTORY: 1. Hernia repair. 2. Cardiac catheterization. 3. Appendicostomy. 4. Left knee arthroplasty. 5. Tonsillectomy. 6. Colonoscopies. 7. Polypectomy. SOCIAL HISTORY: Positive for smoking. No history of drug abuse or alcohol abuse. MEDICATIONS: Medications at home included: 1. Magnesium. 2. Omeprazole. 3. Folic acid. 4. Zofran. 5. Xarelto. 6. [place]. 7. Multivitamins. ALLERGIES: ALLERGIES include TRAMADOL. REVIEW OF SYSTEMS: As per HPI. Other systems negative. PHYSICAL EXAMINATION: Patient is comfortable, awake. He is not in any acute distress. Blood pressure this morning 98/61, heart rate of 100 per minute. He had a temperature of 101.3. EXAMINATION OF THE HEART: S1, S2. EXAMINATION OF LUNGS: Bilateral breath sounds are heard. ABDOMEN: Soft, non-tender. Examination of lower extremities shows no significant edema. Left knee is currently dressed. DIALYSIS EQUIPMENT TECHNICIAN exam shows patient is moving all 4 extremities. LABS: Sodium 142, potassium 4.8, BUN 31, serum creatinine 1.6. UA shows 1+ protein, 2+ ketones, negative blood. Hemoglobin was 8.3 g/dL. ASSESSMENT: 1. Acute kidney injury secondary to hypotension, hypoperfusion. Initially patient was oliguric, currently nonoliguric, with improvement in urine output as the blood pressure has improved. I would avoid continued dosing of vancomycin, given his significant renal failure. 2. Acute gastrointestinal bleed, being transfused packed red blood cells. GI is on consult. Anticoagulation is on hold. 3. Hypotension secondary to acute anemia and gastrointestinal bleed. Receiving fluid boluses. Start pressors if blood pressure remains low. 4. Hyperkalemia associated with acute kidney injury and gastrointestinal bleed. Will repeat labs. I will give one dose of Lasix if he remains hyperkalemic. PLAN: Continue IV fluids. Avoid vancomycin. Repeat labs in a.m. Thank you for this consultation. We will continue to follow the patient with you during his hospitalization. MMODL / IJN: [id number] /
[2018-03-03 22:32] LABS: Anisocytosis Slight; Basophils % (A) 1 %; Eosinophils # (A) 0.1 k/uL (0-0.7); Eosinophils % (A) 1 %; Hypochromasia Moderate; Lymphocytes # (A) 1.5 k/uL (1.0-4.8); Lymphocytes % (A) 17 %; MCH 32.1 pg (25.0-35.0); MCHC 33.4 g/dL (31.0-37.0); MCV 96.1 fL (80.0-100.0); Macrocytosis Slight; Mean Platelet Volume 7.4; Monocytes # (A) 0.6 k/uL (0-1.0); Monocytes % (A) 7 %; Neutrophils # (A) 6.3 k/uL (1.3-7.7); Neutrophils % (A) 72 %; Platelet Count 357 k/uL (150-450); Poikilocytosis Slight; RBC 2.19 m/uL (4.30-5.90); RDW 18.5 % (11.5-15.5); WBC 8.8 k/uL (3.8-10.6)
--- NOTE | 2018-03-03 22:56 | CONS ---
CONSULTATION This is a 58-year-old gentleman whom I have seen in consult in the intensive care unit at the request of Dr. Hermosillo, mail room. REASON FOR CONSULTATION: Placement of vena cava filter. This patient recently had DVT and a large pulmonary embolism. The patient went for pulmonary embolectomy at [facility]. Patient has a history of acute upper GI bleed with acute blood loss. The patient has history of alcoholism. Also patient had a left total knee which was infected. Patient had left total knee surgery with spacer placement with IV antibiotic. On examination, patient was seen in the intensive care unit. NECK: No bruit appreciated. No mass palpable. First and second sounds are present. LUNGS: Diminished breath sounds bilaterally. Abdomen is obese, non-tender. Femoral pulses are present. Discussed with Dr. Hermosillo and we will discuss with the family placement of a filter because patient was on Xarelto for PE and DVT and he had a massive GI bleed. We will discuss this with the family. If they agree, we will proceed. Risks and complications include bleeding, infection, thrombosis, migration. If all agree, we will proceed. We will make those arrangements. MMODL / IJN: [id number] /
[2018-03-03] MEDS: THIAMINE 100 MG TAB PO SCH (23:28)
[2018-03-03] MEDS: SENNOSIDES-DOCUSATE SODIUM 1 EACH TAB PO SCH (23:28)
[2018-03-04] MEDS ORDERED: FUROSEMIDE 10 MG/ML 2 ML VIAL IV ONE (00:15)
[2018-03-04 02:57] LABS: Glucose,Whole Blood 127 mg/dL (75-99)
[2018-03-04] MEDS: PANTOPRAZOLE 40 MG/10 ML VIAL IVP SCH ×3 (03:57→20:45)
[2018-03-04] MEDS: SODIUM CHLORIDE 0.9% 1,000 ML IV SCH ×4 (03:57→22:49)
[2018-03-04 05:21] LABS: Anisocytosis Slight; Basophils % (A) 1 %; Eosinophils # (A) 0.2 k/uL (0-0.7); Eosinophils % (A) 3 %; HCT 25.1 % (39.0-53.0); HGB 8.4 gm/dL (13.0-17.5); Hypochromasia Slight; Lymphocytes # (A) 1.1 k/uL (1.0-4.8); Lymphocytes % (A) 13 %; MCH 31.5 pg (25.0-35.0); MCHC 33.4 g/dL (31.0-37.0); MCV 94.4 fL (80.0-100.0); Macrocytosis Slight; Mean Platelet Volume 7.1; Monocytes # (A) 0.4 k/uL (0-1.0); Monocytes % (A) 5 %; Neutrophils % (A) 76 %; Platelet Count 352 k/uL (150-450); Poikilocytosis Moderate; RBC 2.66 m/uL (4.30-5.90); RDW 19.2 % (11.5-15.5); WBC 7.9 k/uL (3.8-10.6)
[2018-03-04 05:36] LABS: Magnesium 1.8 mg/dL (1.6-2.3); Phosphorus 3.2 mg/dL (2.5-4.5)
[2018-03-04] MEDS ORDERED: Magnesium Replacement Protocol 1 EACH MISC MISCELLANE PRN (06:29)
--- NOTE | 2018-03-04 08:51 | XR ---
EXAMINATION TYPE: XR chest 1V DATE OF EXAM: 03/04/2018 COMPARISON: 03/03/2018 HISTORY: Shortness of breath TECHNIQUE: Single frontal view of the chest is obtained. FINDINGS: Left-sided PICC line seen with left lower lobe infiltrate and small effusion. Right lung c lear. No pneumothorax. Heart size stable. Chronic appearing AC joint separation on the right. Arthrop athy of the left shoulder. IMPRESSION: 1. Increasing left lower lobe infiltrate and small effusion.
--- NOTE | 2018-03-04 09:20 | P.PN ---
Subjective Progress Note Date: 03/04/18 This is a 58-year-old male who is status post stage I revision left total knee arthroplasty with removal of components of placement of an antibiotic spacer. This is postoperative day #3. Patient is also status post EGD due to GI bleed and this is postoperative day #1. Evidence for reflux esophagitis was found. Patient is scheduled for placement of a vena cava filter today due to past history of DVT and pulmonary embolism. Xarelto is currently being held. Patient denies any fever/chills, numbness, weakness, tingling, abdominal pain, shortness of breath or chest pain. Objective - Vital Signs Vital signs: Vital Signs Temp 99.2 F 03/04/18 04:00 Pulse 81 03/04/18 07:10 Resp 27 H 03/04/18 07:10 BP 99/61 03/04/18 07:10 Pulse Ox 100 03/04/18 07:10 Intake & Output 03/03/18 03/04/18 03/04/18 18:59 06:59 18:59 Intake Total 6832.96 1620 100 Output Total 1905 1645 50 Balance 4927.96 -25 50 Weight 83.9 kg Intake: IV 5350.96 1000 100 Octreotide 200 mcg In 100.96 Sodium Chloride 0.9% 100 ml @ 25 MCG/HR 12.62 mls/ hr IV .Q8H1M [facility] Rx#: [id number] Sodium Chloride 0.9% 1, 900 1000 100 000 ml @ 100 mls/hr IV . Q10H [facility] Rx#:[id number] Sodium Chloride 0.9% 1, 4000 000 ml @ 999 mls/hr IV . Q1H1M [facility] Rx#:[id number] Intake, IV Titration 250 Amount Vancomycin 1,500 mg In 250 Sodium Chloride 0.9% 250 ml @ 125 mls/hr IVPB Q24HR [facility] Rx#:[id number] Blood Product 1232 620 Ffp 24 Cpd Unit 324 [id number] Ffp 24 Cpd Unit 288 [id number] Rc As-1 Unit 310 [id number] Rc As-1 Unit 310 [id number] Rc As-1 Unit 310 [id number] Output: Gastric Drainage 1000 Urine 505 1645 50 Emesis 400 Other: Voiding Method Indwelling Catheter Indwelling Catheter # Bowel Movements 0 - Exam Patient is in no acute distress and patient is alert. Calf is soft and nontender to palpation. Dressing is removed revealing a mild amount of bloody and yellow-green drainage. No active drainage. [place] are intact. Patient has full foot and ankle motion without pain or difficulty. Neurovascular status and circulatory status are intact. - Labs CBC & Chem 7: 03/04/18 05:15 03/04/18 05:15 Labs: Abnormal Lab Results - Last 24 Hours (Table) 03/03/18 03/03/18 03/03/18 Range/Units 05:05 09:34 11:50 WBC 10.7 H (3.8-10.6) k/uL RBC 2.70 L (4.30-5.90) m/uL Hgb 8.3 L D (13.0-17.5) gm/dL Hct 25.9 L (39.0-53.0) % MCHC (31.0-37.0) g/dL RDW 18.1 H (11.5-15.5) % Monocytes # 1.1 H (0-1.0) k/uL Chloride 114 H (98-107) mmol/L BUN 31 H (9-20) mg/dL Creatinine 1.60 H (0.66-1.25) mg/dL Glucose 65 L (74-99) mg/dL POC Glucose (mg/dL) (75-99) mg/dL Calcium 7.4 L (8.4-10.2) mg/dL Phosphorus 2.3 L (2.5-4.5) mg/dL Crossmatch See Detail 03/03/18 03/03/18 03/03/18 Range/Units 17:44 19:08 22:20 WBC (3.8-10.6) k/uL RBC 2.35 L 2.19 L (4.30-5.90) m/uL Hgb 7.2 L 7.0 L (13.0-17.5) gm/dL Hct 23.2 L 21.0 L (39.0-53.0) % MCHC 30.8 L (31.0-37.0) g/dL RDW 18.4 H 18.5 H (11.5-15.5) % Monocytes # (0-1.0) k/uL Chloride (98-107) mmol/L BUN (9-20) mg/dL Creatinine (0.66-1.25) mg/dL Glucose (74-99) mg/dL POC Glucose (mg/dL) 147 H (75-99) mg/dL Calcium (8.4-10.2) mg/dL Phosphorus (2.5-4.5) mg/dL Crossmatch 03/04/18 03/04/18 03/04/18 Range/Units 02:55 05:15 05:15 WBC (3.8-10.6) k/uL RBC 2.66 L (4.30-5.90) m/uL Hgb 8.4 L (13.0-17.5) gm/dL Hct 25.1 L (39.0-53.0) % MCHC (31.0-37.0) g/dL RDW 19.2 H (11.5-15.5) % Monocytes # (0-1.0) k/uL Chloride 114 H (98-107) mmol/L BUN 32 H (9-20) mg/dL Creatinine 1.65 H (0.66-1.25) mg/dL Glucose 116 H (74-99) mg/dL POC Glucose (mg/dL) 127 H (75-99) mg/dL Calcium 8.0 L (8.4-10.2) mg/dL Phosphorus (2.5-4.5) mg/dL Crossmatch Microbiology - Last 24 Hours (Table) 02/25/18 23:00 Blood Culture - Final Blood No Growth after 144 hours 03/01/18 16:21 Anaerobic Culture - Preliminary Knee - Left 03/01/18 16:21 Anaerobic Culture - Preliminary Knee - Left 03/01/18 16:21 Gram Stain - Final Knee - Left Wound Culture - Final Methicillin resist S. aureus 03/01/18 16:21 Gram Stain - Final Knee - Left Wound Culture - Final Methicillin resist S. aureus 03/03/18 05:30 Urine Culture - Preliminary Urine,Catheterized Assessment and Plan Assessment: Status post stage I revision left total knee arthroplasty with removal of components and placement of antibiotic spacer. History of pulmonary embolism. Alcohol dependence with delirium tremens. Iron deficiency anemia. (1) History of total knee arthroplasty Current Visit: Yes Status: Acute Code(s): Z96.659 - PRESENCE OF UNSPECIFIED ARTIFICIAL KNEE JOINT SNOMED Code(s): 9606958823147 (2) Alcoholism Current Visit: Yes Status: Acute Code(s): F10.20 - ALCOHOL DEPENDENCE, UNCOMPLICATED SNOMED Code(s): 0306242 (3) MRSA infection Current Visit: Yes Status: Acute Code(s): A49.02 - METHICILLIN RESIS STAPH INFECTION, UNSP SITE SNOMED Code(s): 930069163 (4) Septic arthritis of knee, left Current Visit: Yes Status: Acute Code(s): M00.9 - PYOGENIC ARTHRITIS, UNSPECIFIED SNOMED Code(s): 378620985 (5) Acute blood loss anemia Current Visit: Yes Status: Acute Code(s): D62 - ACUTE POSTHEMORRHAGIC ANEMIA SNOMED Code(s): 695977104 (6) Acute upper GI bleed Current Visit: Yes Status: Acute Code(s): K92.2 - GASTROINTESTINAL HEMORRHAGE, UNSPECIFIED SNOMED Code(s): 44255362 (7) Coffee ground emesis Current Visit: Yes Status: Acute Code(s): K92.0 - HEMATEMESIS SNOMED Code( s): 93289133 (8) EtOH dependence Current Visit: Yes Status: Acute Code(s): F10.20 - ALCOHOL DEPENDENCE, UNCOMPLICATED SNOMED Code(s): 54961545 Plan: 1. Weightbearing as tolerated to the left lower extremity. 2. Daily dressing changes. 3. Cultures are positive for MRSA. 4. Appreciate input from internal medicine and infectious disease. 5. Xarelto is currently on hold for GI bleed and vena cava filter placement. 6. Continue routine postoperative care and pain control.
[2018-03-04] MEDS: MAGNESIUM SULFATE-D5W PMX 1 GM in DEXTROSE/WATER 1 100ML.BAG IVPB SCH ×2 (09:21→14:53)
[2018-03-04] MEDS: VANCOMYCIN 1,500 MG in SODIUM CHLORIDE 0.9% 250 ML IVPB SCH (09:21)
[2018-03-04] MEDS: FOLIC ACID 1 MG TAB PO SCH (09:48)
[2018-03-04] MEDS: FERROUS SULFATE 325 MG TAB PO SCH ×2 (09:48→20:44)
[2018-03-04] MEDS: METOPROLOL SUCCINATE (ER) 25 MG TAB.ER.24H PO SCH (09:49)
--- NOTE | 2018-03-04 11:16 | P.PN ---
Subjective Progress Note Date: 03/04/18 Principal diagnosis: Left knee pyogenic arthritis, upper GI bleeding, alcohol withdrawal. his is a 58-year-old white male with history of multiple medical problems, status post left total knee arthroplasty 4 months ago. recently evaluated at the orthopedics office on 02/25/2018, and he was complaining of left knee pain for at least 4 months. He was also complaining of swelling, patient had recent episode of deep vein thromboses and pulmonary embolism, this was treated at [facility] in [place] and he underwent pulmonary thrombectomy. Patient was discharged home on anticoagulation therapy for his DVT and pulmonary embolism. This was roughly about 2-1/2 months ago. At any rate the patient has been compliant with therapy, he is known to have history of alcoholism. Upon evaluation at the orthopedics office, otherwise other history a concern that he may have a septic knee joint. Patient was admitted to the hospital, started on antibiotics in the form of vancomycin, on 03/01/2018, patient underwent revision of left total knee arthroplasty and removal of components placement of an antibiotic articulating spacer. This was done mostly because the aspirate from his left knee was positive for MRSA. Antibiotics were being managed mostly by Dr. Ren. On 02/26/2018, patient had a central placement by Dr. Flynn. Early this morning the patient developed an episode of upper GI bleeding with coffee-ground emesis, hypotension, transferred to the ICU, and I was asked to see him on consultation. Patient received fluid boluses for low blood pressure received so far 2 units of packed RBCs, and 2 units of fresh frozen plasma. Hemoglobin earlier was 6.3 however it is 8.3 now after 2 units of packed RBCs were given. A nasogastric tube was placed, and a significant amount of coffee-ground material was obtained. Patient was seen by GI on consultation, and I believe he is scheduled to undergo EGD today. Considering his history of alcoholism, there is a major concern about possible dysphagia varices, there is also a concern about gastric ulcer disease, and being on anticoagulation therapy which is presently on hold makes the picture more complicated. Now that anticoagulation is on hold, and the patient had recent deep vein thromboses and massive pulmonary embolism I believe the patient should have a inferior vena cava filter placed as soon as possible. Hence I will consult vascular surgery to evaluate for IVC filter placement. Patient has been on Xarelto, he has history of alcohol abuse, left total knee arthroplasty done in October of 2017, presently on [place] protocol, and he is intermittently confused requiring Ativan as per protocol. Looking back at the patient's hemoglobin on admission it was 11.5. Has been gradually dropping down since admission to 6.3 today. His last dose of Xarelto was actually on 03/02/2018. When nasogastric tube was placed, there was at least 800 MLS of black colored emesis noted. I saw the patient shortly after he arrived to the ICU, recommended fluid boluses, I recommended blood transfusion, recommended serum ammonia level, recommended vascular surgery consultation for IVC filter placement since there is absent contraindication to anticoagulation therapy at this point. Reevaluated on 03/04/2018, patient is status post stage I revision of left knee arthroplasty with removal of hardware, and placement of an antibiotic spacer. Postoperative day #3. While inpatient, the patient developed upper GI bleeding , underwent EGD, postoperative day #1, and he was found to have mostly evidence of reflux esophagitis. Patient required a total of 3 units of packed RBCs which were transfused, and 2 units of fresh frozen plasma. Hemoglobin today is 8.4. Considering his recent history of deep vein thromboses and pulmonary embolism, and supposedly he had massive pulmonary emboli, patient could not be placed on anticoagulation therapy at this point because of the GI bleeding, and his anticoagulation therapy is presently on hold, I did recommend vascular surgery evaluation, and IVC filter placement. This is supposed to take place today. Over the last 24 hours, the patient seems to be a bit better, no active bleeding is noted, his nasogastric tube has been removed. Continues to have some black stools. Remains on alcohol withdrawal protocol with seems to be working well, not requiring much sedation over the last 12 hours. Electrolytes are normal BUN however is 32 creatinine is 1.65. His baseline creatinine on admission was 0.71, however over the last 2 days that has been significantly elevated creatinine, and that is felt to be acute kidney injury secondary to hypotension, acute tubular necrosis. When patient was transferred to the ICU, he was noted to have systolic blood pressure in the 70s. Responded to fluids and blood transfusion. Objective - Vital Signs Vital signs: Vital Signs Temp 98.2 F 03/04/18 08:00 Pulse 90 03/04/18 10:00 Resp 26 H 03/04/18 10:00 BP 97/61 03/04/18 10:00 Pulse Ox 99 03/04/18 10:00 Intake & Output 03/03/18 03/04/18 03/04/18 18:59 06:59 18:59 Intake Total 6832.96 1620 475 Output Total 1905 1645 695 Balance 4927.96 -25 -220 Weight 83.9 kg 83.9 kg Intake: IV 5350.96 1000 475 Octreotide 200 mcg In 100.96 Sodium Chloride 0.9% 100 ml @ 25 MCG/HR 12.62 mls/ hr IV .Q8H1M [facility] Rx#: [id number] Sodium Chloride 0.9% 1, 900 1000 350 000 ml @ 75 mls/hr IV . [id number] COUNT [facility]CLUDES [facility] Rx#:[id number] Sodium Chloride 0.9% 1, 4000 000 ml @ 999 mls/hr IV . Q1H1M [facility] Rx#:[id number] Vancomycin 1,500 mg In 125 Sodium Chloride 0.9% 250 ml @ 125 mls/hr IVPB Q24HR COUNT [facility] Rx#:[id number] Intake, IV Titration 250 Amount Vancomycin 1,500 mg In 250 Sodium Chloride 0.9% 250 ml @ 125 mls/hr IVPB Q24HR COUNT [facility]CLUDES [facility] Rx#:[id number] Blood Product 1232 620 Ffp 24 Cpd Unit 324 [id number] Ffp 24 Cpd Unit 288 [id number] Rc As-1 Unit 310 [id number] Rc As-1 Unit 310 [id number] Rc As-1 Unit 310 [id number] Output: Gastric Drainage 1000 Urine 505 1645 695 Emesis 400 Other: Voiding Method Indwelling Catheter Indwelling Catheter Indwelling Catheter # Bowel Movements 0 - Exam General appearance: Revealed a 58-year-old white male, alert oriented 3 today, his confusion has resolved. HET: Head is normocephalic and atraumatic. PERRLA, EOMI, no icterus, nasogastric tube has been removed. Neck: Short obese neck, no neck masses, no JVD, no stridor.. Heart: Distant S1 S2. Regular rate and rhythm, no murmur was appreciated. Lungs: Diminished breath sounds at the bases, no rhonchi, no wheezes. Abdomen: Obese, soft, nontender, no megaly, no rebound, no guarding, positive bowel sounds. Extremities: No clubbing edema or cyanosis, good pulses bilaterally, no rashes. Right knee is wrapped with sterile dressing, seems to be swollen, tender to palpation. Neurological: Alert oriented 3, no gross focal neurologic deficit noted today. Psychiatric: Depressed mood, blunt affect, poor mental status. Lymphatics: No lymphadenopathy. - Labs CBC & Chem 7: 03/04/18 05:15 03/04/18 05:15 Labs: Abnormal Lab Results - Last 24 Hours (Table) 03/03/18 03/03/18 03/03/18 Range/Units 05:05 09:34 11:50 WBC 10.7 H (3.8-10.6) k/uL RBC 2.70 L (4.30-5.90) m/uL Hgb 8.3 L D (13.0-17.5) gm/dL Hct 25.9 L (39.0-53.0) % MCHC (31.0-37.0) g/dL RDW 18.1 H (11.5-15.5) % Monocytes # 1.1 H (0-1.0) k/uL Chloride (98-107) mmol/L BUN (9-20) mg/dL Creatinine (0.66-1.25) mg/dL Glucose (74-99) mg/dL POC Glucose (mg/dL) (75-99) mg/dL Calcium (8.4-10.2) mg/dL Phosphorus 2.3 L (2.5-4.5) mg/dL Crossmatch See Detail 03/03/18 03/03/18 03/03/18 Range/Units 17:44 19:08 22:20 WBC (3.8-10.6) k/uL RBC 2.35 L 2.19 L (4.30-5.90) m/uL Hgb 7.2 L 7.0 L (13.0-17.5) gm/dL Hct 23.2 L 21.0 L (39.0-53.0) % MCHC 30.8 L (31.0-37.0) g/dL RDW 18.4 H 18.5 H (11.5-15.5) % Monocytes # (0-1.0) k/uL Chloride (98-107) mmol/L BUN (9-20) mg/dL Creatinine (0.66-1.25) mg/dL Glucose (74-99) mg/dL POC Glucose (mg/dL) 147 H (75-99) mg/dL Calcium (8.4-10.2) mg/dL Phosphorus (2.5-4.5) mg/dL Crossmatch 03/04/18 03/04/18 03/04/18 Range/Units 02:55 05:15 05:15 WBC (3.8-10.6) k/uL RBC 2.66 L (4.30-5.90) m/uL Hgb 8.4 L (13.0-17.5) gm/dL Hct 25.1 L (39.0-53.0) % MCHC (31.0-37.0) g/dL RDW 19.2 H (11.5-15.5) % Monocytes # (0-1.0) k/uL Chloride 114 H (98-107) mmol/L BUN 32 H (9-20) mg/dL Creatinine 1.65 H (0.66-1.25) mg/dL Glucose 116 H (74-99) mg/dL POC Glucose (mg/dL) 127 H (75-99) mg/dL Calcium 8.0 L (8.4-10.2) mg/dL Phosphorus (2.5-4.5) mg/dL Crossmatch Microbiology - Last 24 Hours (Table) 03/01/18 16:21 Gram Stain - Final Knee - Left Wound Culture - Final Methicillin resist S. aureus 02/25/18 23:00 Blood Culture - Final Blood No Growth after 144 hours 03/01/18 16:21 Anaerobic Culture - Preliminary Knee - Left 03/01/18 16:21 Anaerobic Culture - Preliminary Knee - Left 03/01/18 16:21 Gram Stain - Final Knee - Left Wound Culture - Final Methicillin resist S. aureus 03/03/18 05:30 Urine Culture - Preliminary Urine,Catheterized Assessment and Plan Assessment: Impression: 1 acute upper GI bleeding, secondary to reflux esophagitis. 2 acute blood loss and anemia secondary to 1. 3 acute septic left knee joint,/pyogenic arthritis, recent left arthroplasty patient is status post revision and removal of hardware. Placement of antibiotic spacer. This is secondary to MRSA. 4 acute sepsis and septic knee joint. With hypotension could also be related to his GI blood loss. 5 history of massive pulmonary embolism requiring thrombectomy/embolectomy done recently at [facility]. Patient has been on Xarelto which is now on hold, patient will require IVC filter placement. 6 alcohol dependence and alcoholism, patient is high risk for alcohol withdrawal hence he is now on the CIWA protocol. 7 multiple comorbidities including osteoarthritis, seizure disorder, chronic hypoxic respiratory failure and underlying COPD which is presently inactive, chronic smoker, history of recurrent episodes of alcohol withdrawal, history of rib fractures related to falls, history of incarcerated right inguinal hernia Recommendation: Continue present supportive care measures, plan to transfer the patient out of the ICU today, recommended IVC filter placement. And supposedly that would be done by Dr. De La Cruz today. Continue alcohol withdrawal protocol, continue antibiotics for his septic joint secondary to MRSA. Overall long-term prognosis remains extremely poor and guarded, we will continue to follow the patient on a regular basis. Time with Patient: Less than 30
--- NOTE | 2018-03-04 11:48 | P.PN ---
Subjective Progress Note Date: 03/04/18 Addy Villalpando, is a 58 year old male who presented to the Orthopedic Surgery office for recheck of his left knee. He is status post left total knee arthroplasty, 4 months ago . Patient was complaining of of increased pain and swelling in the left knee. Patient had multiple hospitalizations for alcohol withdrawal as well as pulmonary embolism recently. Patient was complaining of pain and swelling in the left knee.He is having difficulty with weight bearing on the left knee secondary to pain. He did have a vague history of a remote fall which he did not seeks treatment for. He was evaluated by orthopedic surgery and was admitted directly to [facility], he was started on IV antibiotic vancomycin, and is scheduled for surgery on the left knee on Wednesday. On 02/27/2018 patient was seen and examined, he is alert and oriented 3 in no apparent distress sitting at the edge of his bed there is no fever or chills no headache or dizziness no chest pain no shortness of breath no cough no nausea or vomiting no abdominal pain no diarrhea and no urinary symptoms ane in the knee is well-controlled at this time. 02/28/2018 patient still requiring the IV Ativan for withdrawal-like symptoms. Patient is easily agitated. Reports that he does not need to be here in the hospital. That he wants to leave right away. Patient has been receiving the IV Ativan. Aspiration culture of the left knee completed on 02/25/2018 shows presumptive MRSA. He is currently on IV vancomycin. Orthopedics are planning an I&D on Wednesday with antibiotic spacer. 03/01/2018 patient is scheduled for surgery today for an I&D. He did require 1 dose of IV Ativan yesterday. Nursing staff gave Vistaril this morning for his anxiety. He is no longer having tachycardia. Hemoglobin 9.5 iron low at 47. He'll be started on ferrous sulfate 325 mg twice a day. Denies any chest pain or shortness breath. Denies any nausea or vomiting. Denies any bowel movement changes or urinary symptoms On 03/02/2018 patient is status post I&D postop day 1. Patient is currently resting comfortably in bed. Patient did require 3 doses of Ativan throughout night due to withdrawal. This time patient denies chest pain or shortness breath. Patient denies nausea vomiting or diarrhea. Patient denies any urinary burning or frequency 03/03/2018 patient required a transfer to the ICU due to upper GI bleed. Patient had coffee-ground emesis. NG tube was inserted. Hemoglobin down to 6.6 INR 1.7 she is on IV Sandostatin. GI is following and patient is scheduled for EGD. He is also receiving blood transfusion and FFP. Nephrology is also following the patient. She is having low-grade temps 100.4 this morning. White count is up to 14.4 and he is still tachycardic and blood pressure 85/52. 03/04/2018 patient status post EGD showing linear erosions or ulcerations in the mid and distal esophagus consistent with LA grade D reflux esophagitis and also a moderate size hiatal hernia. He continues on IV Protonix. NG tube was removed no further episodes of vomiting. Any scheduled to be transferred out of the ICU today. Was seen by vascular surgery he is scheduled for Juan M filter placement due to his history of PE and DVT. He can no longer take the Xarelto due to his severe GI bleed. Blood pressures are showing improvement after IV fluids. Patient also received a total of 3 units of RBCs and 2 units of FFP Objective - Vital Signs Vital signs: Vital Signs Temp 99.0 F 03/04/18 11:31 Pulse 83 03/04/18 11:31 Resp 22 03/04/18 11:31 BP 101/66 03/04/18 11:31 Pulse Ox 97 03/04/18 11:31 Intake & Output 03/03/18 03/04/18 03/04/18 18:59 06:59 18:59 Intake Total 6832.96 1620 475 Output Total 1905 1645 695 Balance 4927.96 -25 -220 Weight 83.9 kg 83.9 kg Intake: IV 5350.96 1000 475 Octreotide 200 mcg In 100.96 Sodium Chloride 0.9% 100 ml @ 25 MCG/HR 12.62 mls/ hr IV .Q8H1M [facility] Rx#: [id number] Sodium Chloride 0.9% 1, 900 1000 350 000 ml @ 75 mls/hr IV . [id number] [facility] Rx#:[id number] Sodium Chloride 0.9% 1, 4000 000 ml @ 999 mls/hr IV . Q1H1M [facility] Rx#:[id number] Vancomycin 1,500 mg In 125 Sodium Chloride 0.9% 250 ml @ 125 mls/hr IVPB Q24HR [facility] Rx#:[id number] Intake, IV Titration 250 Amount Vancomycin 1,500 mg In 250 Sodium Chloride 0.9% 250 ml @ 125 mls/hr IVPB Q24HR [facility] Rx#:[id number] Blood Product 1232 620 Ffp 24 Cpd Unit 324 [id number] Ffp 24 Cpd Unit 288 [id number] Rc As-1 Unit 310 [id number] Rc As-1 Unit 310 [id number] Rc As-1 Unit 310 [id number] Output: Gastric Drainage 1000 Urine 505 1645 695 Emesis 400 Other: Voiding Method Indwelling Catheter Indwelling Catheter Indwelling Catheter # Bowel Movements 0 - Exam Head normocephalic Neck supple Lungs clear to auscultation bilaterally no wheezing or crackles Heart regular rate and rhythm S1-S2, no rub or gallop Abdomen is soft nontender nondistended positive bowel sounds no hepatosplenomegaly Extremities right knee dressing clean dry and intact. +1 edema bilateral lower extremities Neuro resting comfortably - Labs CBC & Chem 7: 03/04/18 05:15 03/04/18 05:15 Labs: Abnormal Lab Results - Last 24 Hours (Table) 03/03/18 03/03/18 03/03/18 Range/Units 05:05 11:50 17:44 WBC 10.7 H (3.8-10.6) k/uL RBC 2.70 L 2.35 L (4.30-5.90) m/uL Hgb 8.3 L D 7.2 L (13.0-17.5) gm/dL Hct 25.9 L 23.2 L (39.0-53.0) % MCHC 30.8 L (31.0-37.0) g/dL RDW 18.1 H 18.4 H (11.5-15.5) % Monocytes # 1.1 H (0-1.0) k/uL Chloride (98-107) mmol/L BUN (9-20) mg/dL Creatinine (0.66-1.25) mg/dL Glucose (74-99) mg/dL POC Glucose (mg/dL) (75-99) mg/dL Calcium (8.4-10.2) mg/dL Crossmatch See Detail 1003/03/18 03/04/18 Range/Units 19:08 22:20 02:55 WBC (3.8-10.6) k/uL RBC 2.19 L (4.30-5.90) m/uL Hgb 7.0 L (13.0-17.5) gm/dL Hct 21.0 L (39.0-53.0) % MCHC (31.0-37.0) g/dL RDW 18.5 H (11.5-15.5) % Monocytes # (0-1.0) k/uL Chloride (98-107) mmol/L BUN (9-20) mg/dL Creatinine (0.66-1.25) mg/dL Glucose (74-99) mg/dL POC Glucose (mg/dL) 147 H 127 H (75-99) mg/dL Calcium (8.4-10.2) mg/dL Crossmatch 03/04/18 03/04/18 Range/Units 05:15 05:15 WBC (3.8-10.6) k/uL RBC 2.66 L (4.30-5.90) m/uL Hgb 8.4 L (13.0-17.5) gm/dL Hct 25.1 L (39.0-53.0) % MCHC (31.0-37.0) g/dL RDW 19.2 H (11.5-15.5) % Monocytes # (0-1.0) k/uL Chloride 114 H (98-107) mmol/L BUN 32 H (9-20) mg/dL Creatinine 1.65 H (0.66-1.25) mg/dL Glucose 116 H (74-99) mg/dL POC Glucose (mg/dL) (75-99) mg/dL Calcium 8.0 L (8.4-10.2) mg/dL Crossmatch Microbiology - Last 24 Hours (Table) 03/01/18 16:21 Gram Stain - Final Knee - Left Wound Culture - Final Methicillin resist S. aureus 02/25/18 23:00 Blood Culture - Final Blood No Growth after 144 hours 03/01/18 16:21 Anaerobic Culture - Preliminary Knee - Left 03/01/18 16:21 Anaerobic Culture - Preliminary Knee - Left 03/01/18 16:21 Gram Stain - Final Knee - Left Wound Culture - Final Methicillin resist S. aureus 03/03/18 05:30 Urine Culture - Preliminary Urine,Catheterized Assessment and Plan Assessment: #1 septic arthritis of the left knee: Aspiration culture from 02/25/2018 growing presumptive MRSA. Patient remains on IV vancomycin. Culture from aspiration growing MRSA. Status post stage I revision left total knee arthroplasty with removal of components and placement of antibiotic articulating spacer. ID following #2 recent history of pulmonary embolism and DVT. Patient is scheduled today for Juan M filter placement with Dr. Martinez. Patient no longer a candidate for anticoagulation. Xarelto discontinued #3 alcohol dependence with evidence of delirium tremens. Continue the CIWA protocol with Ativan and multivitamin, thiamine and folic acid #4 iron Deficiency anemia: Start ferrous sulfate 325 mg twice a day #5 severe protein calorie malnutrition present on admission. Add ensure #6 acute GI bleed with coffee-ground emesis causing acute blood loss anemia. Secondary to linear erosions or ulcerations in the mid distal esophagus consistent with reflux esophagitis. Continue Protonix. Hemoglobin 8.4 after blood transfusions. #7 coagulopathy #8 hyperkalemia likely related to acute kidney injury. Resolved #9 acute kidney injury creatinine 1.67. Followed closely by nephrology. Continue with IV fluids #10 hypotension Secondary to GI bleed. Improved with IV fluids. #11 fever spikes. He did have a T-max of 101.3. Check blood culture. Infectious disease following Patient will be transferred out of the ICU today. I performed an examination of the patient and discussed their management with the physician Od Grinder Operator. I have reviewed the Physician Od Grinder Operator's notes and agree with the documented findings and plan of care
--- NOTE | 2018-03-04 12:13 | P.PN ---
Subjective Progress Note Date: 03/04/18 Principal diagnosis: Hematemesis GI bleed 88-year-old gentleman history of heavy EtOH abuse PE maintained on anticoagulation admitted with septic left knee development of acute hematemesis. He underwent EGD evaluation yesterday with findings of linear erosions or ulcerations the mid and distal esophagus consistent with LA grade D reflux esophagitis without evidence of varices moderate hiatal hernia. He received 3 units of blood yesterday 2 units of FFP. No further bleeding. No melena hematemesis hematochezia. More awake alert today. Hemoglobin 8.4. Objective - Vital Signs Vital signs: Vital Signs Temp 99.0 F 03/04/18 11:31 Pulse 83 03/04/18 11:31 Resp 22 03/04/18 11:31 BP 101/66 03/04/18 11:31 Pulse Ox 97 03/04/18 11:31 Intake & Output 03/03/18 03/04/18 03/04/18 18:59 06:59 18:59 Intake Total 6832.96 1620 475 Output Total 1905 1645 695 Balance 4927.96 -25 -220 Weight 83.9 kg 83.9 kg Intake: IV 5350.96 1000 475 Octreotide 200 mcg In 100.96 Sodium Chloride 0.9% 100 ml @ 25 MCG/HR 12.62 mls/ hr IV .Q8H1M [facility] Rx#: [id number] Sodium Chloride 0.9% 1, 900 1000 350 000 ml @ 75 mls/hr IV . [id number] [facility] Rx#:[id number] Sodium Chloride 0.9% 1, 4000 000 ml @ 999 mls/hr IV . Q1H1M [facility] Rx#:[id number] Vancomycin 1,500 mg In 125 Sodium Chloride 0.9% 250 ml @ 125 mls/hr IVPB Q24HR [facility] Rx#:[id number] Intake, IV Titration 250 Amount Vancomycin 1,500 mg In 250 Sodium Chloride 0.9% 250 ml @ 125 mls/hr IVPB Q24HR [facility] Rx#:[id number] Blood Product 1232 620 Ffp 24 Cpd Unit 324 [id number] Ffp 24 Cpd Unit 288 [id number] Rc As-1 Unit 310 [id number] Rc As-1 Unit 310 [id number] Rc As-1 Unit 310 [id number] Output: Gastric Drainage 1000 Urine 505 1645 695 Emesis 400 Other: Voiding Method Indwelling Catheter Indwelling Catheter Indwelling Catheter # Bowel Movements 0 - Exam General appearance: The patient is alert, in no acute distress. HET: Head is normocephalic and atraumatic. Pupils are equal and reactive. Oropharynx is clear without lesions. Neck: Supple without lymphadenopathy. Trachea midline. Heart: S1 S2. Regular rate and rhythm. Lungs: No crackles or wheezes are heard. Abdomen: Soft, nontender, nondistended with bowel sounds. No peritoneal signs. No palpable organomegaly or masses. Extremities: Left knee dressing. Normal skin color and turgor. No cyanosis, rash, ulceration, clubbing, or edema. Radial and pedal pulses are 2/4 bilaterally. Neurological: No focal deficits. Strength and sensation are grossly intact. - Labs CBC & Chem 7: 03/04/18 05:15 03/04/18 05:15 Labs: Abnormal Lab Results - Last 24 Hours (Table) 03/03/18 03/03/18 03/03/18 Range/Units 05:05 11:50 17:44 WBC 10.7 H (3.8-10.6) k/uL RBC 2.70 L 2.35 L (4.30-5.90) m/uL Hgb 8.3 L D 7.2 L (13.0-17.5) gm/dL Hct 25.9 L 23.2 L (39.0-53.0) % MCHC 30.8 L (31.0-37.0) g/dL RDW 18.1 H 18.4 H (11.5-15.5) % Monocytes # 1.1 H (0-1.0) k/uL Chloride (98-107) mmol/L BUN (9-20) mg/dL Creatinine (0.66-1.25) mg/dL Glucose (74-99) mg/dL POC Glucose (mg/dL) (75-99) mg/dL Calcium (8.4-10.2) mg/dL Crossmatch See Detail 03/03/18 03/03/18 03/04/18 Range/Units 19:08 22:20 02:55 WBC (3.8-10.6) k/uL RBC 2.19 L (4.30-5.90) m/uL Hgb 7.0 L (13.0-17.5) gm/dL Hct 21.0 L (39.0-53.0) % MCHC (31.0-37.0) g/dL RDW 18.5 H (11.5-15.5) % Monocytes # (0-1.0) k/uL Chloride (98-107) mmol/L BUN (9-20) mg/dL Creatinine (0.66-1.25) mg/dL Glucose (74-99) mg/dL POC Glucose (mg/dL) 147 H 127 H (75-99) mg/dL Calcium (8.4-10.2) mg/dL Crossmatch 03/04/18 03/04/18 Range/Units 05:15 05:15 WBC (3.8-10.6) k/uL RBC 2.66 L (4.30-5.90) m/uL Hgb 8.4 L (13.0-17.5) gm/dL Hct 25.1 L (39.0-53.0) % MCHC (31.0-37.0) g/dL RDW 19.2 H (11.5-15.5) % Monocytes # (0-1.0) k/uL Chloride 114 H (98-107) mmol/L BUN 32 H (9-20) mg/dL Creatinine 1.65 H (0.66-1.25) mg/dL Glucose 116 H (74-99) mg/dL POC Glucose (mg/dL) (75-99) mg/dL Calcium 8.0 L (8.4-10.2) mg/dL Crossmatch Microbiology - Last 24 Hours (Table) 03/01/18 16:21 Gram Stain - Final Knee - Left Wound Culture - Final Methicillin resist S. aureus 02/25/18 23:00 Blood Culture - Final Blood No Growth after 144 hours 03/01/18 16:21 Anaerobic Culture - Preliminary Knee - Left 03/01/18 16:21 Anaerobic Culture - Preliminary Knee - Left 03/01/18 16:21 Gram Stain - Final Knee - Left Wound Culture - Final Methicillin resist S. aureus 03/03/18 05:30 Urine Culture - Preliminary Urine,Catheterized Assessment and Plan (1) Acute upper GI bleed Narrative/Plan: Acute upper GI bleed secondary to LA grade D reflux esophagitis mid to distal linear esophageal ulcerations exacerbated by anticoagulation status post EGD. Current Visit: Yes Status: Acute Code(s): K92.2 - GASTROINTESTINAL HEMORRHAGE, UNSPECIFIED SNOMED Code(s): 41816661 (2) Acute blood loss anemia Current Visit: Yes Status: Acute Code(s): D62 - ACUTE POSTHEMORRHAGIC ANEMIA SNOMED Code(s): 590647800 (3) Hx pulmonary embolism Current Visit: Yes Status: Acute Code(s): Z86.711 - PERSONAL HISTORY OF PULMONARY EMBOLISM SNOMED Code(s): 465009769 (4) Coagulopathy Current Visit: Yes Status: Acute Code(s): D68.9 - COAGULATION DEFECT, UNSPECIFIED SNOMED Code(s): 79237826 (5) Coffee ground emesis Current Visit: Yes Status: Acute Code(s): K92.0 - HEMATEMESIS SNOMED Code( s): 90524591 (6) Melena Current Visit: Yes Status: Acute Code(s): K92.1 - MELENA SNOMED Code(s): 9756347 (7) EtOH dependence Current Visit: Yes Status: Acute Code(s): F10.20 - ALCOHOL DEPENDENCE, UNCOMPLICATED SNOMED Code(s): 32486838 (8) Withdrawal symptoms, alcohol Current Visit: Yes Status: Acute Code(s): F10.239 - ALCOHOL DEPENDENCE WITH WITHDRAWAL, UNSPECIFIED SNOMED Code(s): 538424978 (9) History of total knee arthroplasty Current Visit: Yes Status: Acute Code(s): Z96.659 - PRESENCE OF UNSPECIFIED ARTIFICIAL KNEE JOINT SNOMED Code(s): 7642945763380 (10) Septic arthritis of knee, left Current Visit: Yes Status: Acute Code(s): M00.9 - PYOGENIC ARTHRITIS, UNSPECIFIED SNOMED Code(s): 290183494 Plan: 1. Protonix 40 mg IV BID. 2. Clear liquids advance as tolerated. 3. CBC daily. 4. Hold anticoagulation 5. IV antibiotics. Assessment and plan a care discussed with Dr. Rincon
[2018-03-04] MEDS ORDERED: MIDAZOLAM 2 MG/2 ML VIAL IV ONE ×2 (13:05)
[2018-03-04] MEDS ORDERED: IV FLUID CONTINUATION 1,000 ML IV ONE (13:05)
[2018-03-04] MEDS ORDERED: LIDOCAINE 1% INJ 10MG/ML (20 ML MDV) SQ ONE (13:12)
[2018-03-04] MEDS ORDERED: IOPAMIDOL-250 100ML BTL INTRAARTER ONE (13:36)
[2018-03-04] MEDS ORDERED: IOPAMIDOL-250 100ML BTL IV ONE (13:36)
--- NOTE | 2018-03-04 14:00 | PN ---
PROGRESS NOTE Patient is seen for followup for acute kidney injury. His renal function is stable with creatinine at 1.6. He was brought to the ICU with the active GI bleed. Hemoglobin has gone down to 6.6. The patient was hypotensive yesterday with systolic blood pressure in the 80s. He received multiple fluid boluses as well as packed RBCs transfusion. Urine output was minimal. Initially, currently it has picked up. The bleeding seems to have subsided currently. Patient is being transferred out of the ICU. PHYSICAL EXAMINATION: Blood pressure this morning 97/61, heart rate 90 per minute. He is afebrile. Examination of the heart, S1, S2. Examination of the lungs, bilateral breath sounds are heard. Abdomen is soft, nontender. Exam of the lower extremities shows no significant edema. His left knee is currently dressed. LABS: His sodium 141, potassium 4.0, chloride 114, BUN 32, serum creatinine 1.65, hemoglobin 8.4 g/dL. ASSESSMENT: 1. Acute kidney injury secondary to hypotension, hypoperfusion currently nonoliguric with improved urine output. Serum creatinine is still at 1.6; however, given the significant improvement in urine output,. expect renal function to continue to improve over the next few days. 2. Left septic knee, post arthroplasty status post removal of hardware and antibiotic spacer placement. 3. Acute gastrointestinal bleed and status post packed RBCs transfusion. No active bleeding noted. 4. Acute blood loss anemia. 5. Pulmonary embolism, maintained on anticoagulation, currently on hold. 6. Gastrointestinal bleed, status post EGD, which showed linear erosions or ulcerations in the mid and distal esophagus. PLAN: Decrease IV fluids. Repeat labs in a.m. Continue to avoid nephrotoxic agents. MMODL / IJN: [id number] /
[2018-03-04] MEDS: HYDROcodone/APAP 10-325MG 1 EACH TAB PO PRN (14:22)
[2018-03-04] MEDS: MULTIVITAMINS, THERA 1 EACH TAB PO SCH (14:53)
--- NOTE | 2018-03-04 20:24 | OP ---
OPERATIVE REPORT PREOP DIAGNOSIS: Deep vein thrombosis stump with PE and with GI bleed. PROCEDURE: 1. Vena cavogram. 2. Placement of a Juan M filter infrarenal. PROCEDURE: This patient has history of PE and DVT in the past. The patient was put on Xarelto. Came with upper and lower GI bleeding. Xarelto was stopped and I was consulted for placement of the filter. The patient was brought to the quality assurance/r&d lab technician. Right groin was prepped and drapes were applied in usual sterile manner. Ultrasound-guided micropuncture into the right femoral vein. Micropuncture guidewire was passed and 4- [place] dilator on top of the guidewire. Then we passed a regular guidewire and we put 5- [place] sheath. On the top of the guidewire we put the pigtail catheter which was parked in the iliac vein on the right side and venacavogram was performed. Both renal were visualized. Vena cava was visualized. There was no clot seen in the vena cava. Both renal veins were visualized. After that, the sheath was removed and dilator was advanced on the top of the guidewire. Then we advanced the dilator sheath on the top of the guidewire. Through the sheath we did use the Juan M filter which was deployed below the renal vein and it was in excellent position and the guidewire sheath was removed. Pressure was held. Patient tolerated the procedure well. MMODL / IJN: [id number] /
[2018-03-04] MEDS: HYDROmorphone 1 MG/ML 1 ML SYRINGE IVP PRN (20:29)
[2018-03-04] MEDS: THIAMINE 100 MG TAB PO SCH (20:44)
[2018-03-04] MEDS: SENNOSIDES-DOCUSATE SODIUM 1 EACH TAB PO SCH (20:45)
[2018-03-04] MEDS: LORazepam 0.5 MG TAB PO PRN (22:48)
--- NOTE | 2018-03-05 00:44 | P.PN ---
Subjective Progress Note Date: 03/04/18 58-year-old male presents to the hospital for further evaluation of the significant pain and swelling to his left knee. The patient has a history of degenerative joint disease and underwent a left total knee arthroplasty in 2014. The patient has had a decline of his overall health in the interim is complicated by chronic alcoholism and ongoing tobacco abuse. The patient apparently 4 months ago had an indistinct trauma to the knee and this been having difficulties with swelling since that point in time. It was worsening and constantly sought care with his orthopedic surgeon recently. An aspiration to the joint was obtained and a somewhat purulent material was found. Consequently the patient was sent to Hospital and consultations have been requested. The aspiration is already started to show evidence of MRSA infection. Antibiotic therapy with vancomycin was advised and the patient will be planned for surgical intervention soon. Medical consultation to help with his alcohol withdrawal. Patient is also given significant advice about smoking cessation and the importance of that to help him with healing of his orthopedic issues. The patient is denying high-grade fevers, chills or rigors but does not feel well overall. Patient states health has been declining over the last few years. 02/28/2018 the patient has had a significant change in that he went into delirium tremens and required transfer to selective care/ICU. He is now received a large amount of benzodiazepines and he is now much more calm and less angry and more cooperative. He will be transferred back to the surgical unit. There are plans for surgical intervention tomorrow for extraction of the infected total knee arthroplasty. 03/02/2018 patient is status post extraction of the total total knee arthroplasty and antibiotic spacer placement. His delirium tremens have improved but he still is quite confused. Pain is well-controlled. He relates he needs his films with him call his but the battery has . I find the stain applicator for his phone looked up the phone is at 96%. 03/04/2018 the patient continues to have slow improvement of his neurological status. He is sitting somewhat upright eating his dinner without difficulty. He is able to self feed. And he is minimally conversational. He does not seem to be terribly uncomfortable but does have pain in the left knee where there was the extraction of the infected total knee arthroplasty and antibiotic spacer. Objective - Vital Signs Vital signs: Vital Signs Temp 97.6 F 03/04/18 20:40 Pulse 90 03/04/18 20:40 Resp 18 03/04/18 20:40 BP 97/67 03/04/18 20:40 Pulse Ox 96 03/04/18 20:40 Intake & Output 03/04/18 03/04/18 03/05/18 06:59 18:59 06:59 Intake Total 1620 550 180 Output Total 1645 895 Balance -25 -345 180 Weight 83.9 kg 83.9 kg Intake: IV 1000 550 Sodium Chloride 0.9% 1, 1000 350 000 ml @ 75 mls/hr IV . [id number] [facility] Rx#:[id number] Vancomycin 1,500 mg In 125 Sodium Chloride 0.9% 250 ml @ 125 mls/hr IVPB Q24HR [facility] Rx#:[id number] Oral 180 Blood Product 620 Rc As-1 Unit 310 [id number] Output: Urine 1645 895 Other: Voiding Method Indwelling Catheter Indwelling Catheter # Bowel Movements 0 - Exam 58-year-old male in no acute distress looks older than his stated age HEENT: Anicteric conjunctiva are pink and moist nasal mucosa grossly intact without significant lesions, there is no thrush. Dentition is quite poor for age Neck: The neck is supple without significant lymphadenopathy or thyromegaly. Lungs: There is symmetrical bilateral air entry however expiratory wheezes are scattered throughout the lung jordan no nina bronchial sounds no dullness or egophony Heart: Regular rate and rhythm with an audible S1-S2, no S3 soft S4 there is no significant murmur click or rub, PMI was nondisplaced. Abdomen: Positive bowel sounds soft and nontender without palpable masses or organomegaly. There was no guarding or rebound. No evidence of ascites Extremities: The upper extremities have excellent pulses they are symmetric, no significant petechiae or telangiectasia. No splinter hemorrhages were noted. The right lower extremity reveals evidence of no acute abnormalities. Left lower extremity shows evidence of the extensive swelling to the left knee. The knee itself is warm with erythema and there is a palpable effusion. It is quite tender to manipulation. There is distinct pain to any attempts for range of motion. There is not a distinct amount of ascending erythema. There is no significant inguinal lymphadenopathy and no other lymphadenopathy is noted. Neuro: Patient is awake and alert he still remains confused and receiving Ativan. - Labs CBC & Chem 7: 03/04/18 05:15 10/12/18 05:15 Labs: Abnormal Lab Results - Last 24 Hours (Table) 03/03/18 03/04/18 03/04/18 Range/Units 05:05 02:55 05:15 RBC 2.66 L (4.30-5.90) m/uL Hgb 8.4 L (13.0-17.5) gm/dL Hct 25.1 L (39.0-53.0) % RDW 19.2 H (11.5-15.5) % Chloride (98-107) mmol/L BUN (9-20) mg/dL Creatinine (0.66-1.25) mg/dL Glucose (74-99) mg/dL POC Glucose (mg/dL) 127 H (75-99) mg/dL Calcium (8.4-10.2) mg/dL Crossmatch See Detail 03/04/18 Range/Units 05:15 RBC (4.30-5.90) m/uL Hgb (13.0-17.5) gm/dL Hct (39.0-53.0) % RDW (11.5-15.5) % Chloride 114 H (98-107) mmol/L BUN 32 H (9-20) mg/dL Creatinine 1.65 H (0.66-1.25) mg/dL Glucose 116 H (74-99) mg/dL POC Glucose (mg/dL) (75-99) mg/dL Calcium 8.0 L (8.4-10.2) mg/dL Crossmatch Microbiology - Last 24 Hours (Table) 03/03/18 05:30 Urine Culture - Final Urine,Catheterized 03/01/18 16:21 Gram Stain - Final Knee - Left Wound Culture - Final Methicillin resist S. aureus 02/25/18 23:00 Blood Culture - Final Blood No Growth after 144 hours 03/01/18 16:21 Anaerobic Culture - Preliminary Knee - Left 03/01/18 16:21 Anaerobic Culture - Preliminary Knee - Left 03/01/18 16:21 Gram Stain - Final Knee - Left Wound Culture - Final Methicillin resist S. aureus Laboratory Results WBC 7.9 k/uL (3.8-10.6) 03/04/18 05:15 RBC 2.66 m/uL (4.30-5.90) L 03/04/18 05:15 Hgb 8.4 gm/dL (13.0-17.5) L 03/04/18 05:15 Hct 25.1 % (39.0-53.0) L 03/04/18 05:15 MCV 94.4 fL (80.0-100.0) 03/04/18 05:15 MCH 31.5 pg (25.0-35.0) 03/04/18 05:15 MCHC 33.4 g/dL (31.0-37.0) 03/04/18 05:15 RDW 19.2 % (11.5-15.5) H 03/04/18 05:15 Plt Count 352 k/uL (150-450) 03/04/18 05:15 Neutrophils % 76 % 03/04/18 05:15 Neutrophils % (Manual) 67 % 03/03/18 03:30 Band Neutrophils % 1 % 03/03/18 03:30 Lymphocytes % 13 % 03/04/18 05:15 Lymphocytes % (Manual) 17 % 03/03/18 03:30 Monocytes % 5 % 03/04/18 05:15 Monocytes % (Manual) 14 % 03/03/18 03:30 Eosinophils % 3 % 03/04/18 05:15 Basophils % 1 % 03/04/18 05:15 Basophils % (Manual) 1 % 03/03/18 03:30 Neutrophils # 6.0 k/uL (1.3-7.7) 03/04/18 05:15 Neutrophils # (Manual) 9.70 k/uL (1.3-7.7) H 03/03/18 03:30 Lymphocytes # 1.1 k/uL (1.0-4.8) 03/04/18 05:15 Lymphocytes # (Manual) 2.45 k/uL (1.0-4.8) 03/03/18 03:30 Monocytes # 0.4 k/uL (0-1.0) 03/04/18 05:15 Monocytes # (Manual) 2.02 k/uL (0-1.0) H 03/03/18 03:30 Eosinophils # 0.2 k/uL (0-0.7) 03/04/18 05:15 Basophils # 0.0 k/uL (0-0.2) 03/04/18 05:15 Basophils # (Manual) 0.14 k/uL (0-0.2) 03/03/18 03:30 Nucleated RBCs 0 /100 WBC (0-0) 03/03/18 03:30 Manual Slide Review Performed 03/03/18 03:30 Polychromasia Present 03/03/18 03:30 Hypochromasia Slight 03/04/18 05:15 Poikilocytosis Moderate 03/04/18 05:15 Anisocytosis Slight 03/04/18 05:15 Macrocytosis Slight 03/04/18 05:15 PT 15.5 sec (9.0-12.0) H 03/03/18 05:12 INR 1.7 (<1.2) H 03/03/18 05:12 Sodium 141 mmol/L (137-145) 03/04/18 05:15 Potassium 4.0 mmol/L (3.5-5.1) 03/04/18 05:15 Chloride 114 mmol/L (98-107) H 03/04/18 05:15 Carbon Dioxide 25 mmol/L (22-30) 03/04/18 05:15 Anion Gap 2 mmol/L 03/04/18 05:15 BUN 32 mg/dL (9-20) H 03/04/18 05:15 Creatinine 1.65 mg/dL (0.66-1.25) H 03/04/18 05:15 Est GFR (CKD-EPI)AfAm 52 (>60 ml/min/1.73 sqM) 03/04/18 05:15 Est GFR (CKD-EPI)NonAf 45 (>60 ml/min/1.73 sqM) 03/04/18 05:15 Glucose 116 mg/dL (74-99) H 03/04/18 05:15 POC Glucose (mg/dL) 127 mg/dL (75-99) H 03/04/18 02:55 POC Glu Grades 1 Thru 6 Home Teacher ID Luiza Cristina 03/04/18 02:55 Plasma Lactic Acid Chet 1.1 mmol/L (0.7-2.0) 03/03/18 05:12 Calcium 8.0 mg/dL (8.4-10.2) L 03/04/18 05:15 Phosphorus 3.2 mg/dL (2.5-4.5) 03/04/18 05:15 Magnesium 1.8 mg/dL (1.6-2.3) 03/04/18 05:15 Iron 47 ug/dL (65-175) L 02/28/18 04:15 TIBC 201 ug/dL (228-460) L 02/28/18 04:15 Iron Saturation 23.38 (15.00-50.00) 02/28/18 04:15 Ferritin 54.5 ng/mL (22.0-322.0) 02/28/18 04:15 Total Bilirubin 0.3 mg/dL (0.2-1.3) 03/03/18 05:12 AST 12 U/L (17-59) L 03/03/18 05:12 ALT 24 U/L (21-72) 03/03/18 05:12 Alkaline Phosphatase 35 U/L (38-126) L 03/03/18 05:12 Ammonia 13 umol/L (<30) 03/03/18 12:10 C-Reactive Protein 133.2 mg/L (<10.0) H 02/25/18 23:00 Total Protein 3.4 g/dL (6.3-8.2) L 03/03/18 05:12 Albumin 1.5 g/dL (3.5-5.0) L 03/03/18 05:12 Vitamin B12 464.0 pg/mL (200.0-944.0) 02/28/18 04:15 Urine Color Yellow 03/03/18 05:30 Urine Appearance Cloudy (Clear) 03/03/18 05:30 Urine pH 6.0 (5.0-8.0) 03/03/18 05:30 Ur Specific [place] 1.018 (1.001-1.035) 03/03/18 05:30 Urine Protein 1+ (Negative) H 03/03/18 05:30 Urine Glucose (UA) Negative (Negative) 03/03/18 05:30 Urine Ketones 2+ (Negative) H 03/03/18 05:30 Urine Blood Negative (Negative) 03/03/18 05:30 Urine Nitrite Negative (Negative) 03/03/18 05:30 Urine Bilirubin 1+ (Negative) H 03/03/18 05:30 Urine Urobilinogen 2.0 mg/dL (<2.0) 03/03/18 05:30 Ur Leukocyte Esterase Negative (Negative) 03/03/18 05:30 Urine RBC 3 /hpf (0-5) 03/03/18 05:30 Urine WBC 1 /hpf (0-5) 03/03/18 05:30 Ur Squamous Epith Cells 2 /hpf (0-4) 03/03/18 05:30 Urine Bacteria Few /hpf (None) H 03/03/18 05:30 Hyaline Casts 5 /lpf (0-2) H 03/03/18 05:30 Urine Mucus Rare /hpf (None) H 03/03/18 05:30 Vancomycin Trough 30.8 ug/mL H* 03/01/18 03:24 Random Vancomycin 11.3 ug/mL 03/02/18 10:08 Blood Type A Positive 03/03/18 05:05 Blood Type Recheck No 03/03/18 05:05 Antibody Screen NEGATIVE 03/03/18 05:05 Crossmatch See Detail 03/03/18 05:05 Transfuse Plasma 03/03/2018 03/03/18 08:25 Spec Expiration Date 03/06/2018 - 2886 03/03/18 05:05 Microbiology 03/03/18 05:30 Urine,Catheterized Urine Culture - Final 03/01/18 16:21 Knee - Left Gram Stain - Final 03/01/18 16:21 Knee - Left Wound Culture - Final Methicillin resist S. aureus 02/25/18 23:00 Blood Blood Culture - Final No Growth after 144 hours 03/01/18 16:21 Knee - Left Anaerobic Culture - Preliminary 03/01/18 16:21 Knee - Left Anaerobic Culture - Preliminary 03/01/18 16:21 Knee - Left Gram Stain - Final 03/01/18 16:21 Knee - Left Wound Culture - Final Methicillin resist S. aureus Assessment and Plan (1) Septic arthritis of knee, left Narrative/Plan: 58-year-old male with severe general joint disease who is status post left total knee arthroplasty from 2014. The patient has developed over the last several months increasing pain to the knee. He eventually went and saw his orthopedic surgeon. In the officer was evidence of swelling to the joints and aspiration was performed. This is now showing evidence of MRSA infection. The patient consequently has been admitted in his plan for medical stabilization and then for the extraction of the left total knee arthroplasty and placement of an antibiotic spacer. The patient will require a protracted course of intravenous antibiotic therapy. He is in understanding that he will likely need to go to rehab, most likely for the entire time presented back therapy unless other arrangements can be made later on. He desires assistance for smoking cessation. Medical services helping with his alcohol withdrawal. We will ensure that he is having adequate protein supplementation and a multivitamin should be added to help with his healing. The patient is instructed that there are limited number of times that the knee can be intervened, and if this process does not go well there is a risk for an amputation. He will need to be highly cooperative to allow a good outcome. 02/28/2018 the patient is seen in the intensive care unit where he was transferred because of his delirium tremens. He is doing somewhat better at this time with a large amount of benzodiazepines that he has received but is now on a tapering dose. Is related to be going to the operating tomorrow for the extraction of the infected total knee arthroplasty and placement of the antibiotic spacer. Continue antibiotic therapy for the MRSA infection. When he is stable he will need IV access to be placed and will require likely placement in rehab to receive his course of outpatient intravenous antibiotic therapy. 03/02/2018 patient is status post extraction of the left total knee arthroplasty and antibiotic spacer has been placed. Patient continues to have some improvement of his mental status but is certainly not at baseline. He remains on CWIA protocol. When he is more stable will need IV access placed and then hopefully placement in rehab to receive his course of intravenous antibiotic therapy. Smoking cessation is again discussed 03/04/2018 patient is starting to have some improvement status post left total knee arthroplasty extraction and antibiotic spacer implantation. Pain is doing better. He developed a gastrointestinal bleed within the base of his chronic alcoholism. Was seen by gastroenterology and endoscopy was performed he is no longer having active bleeding. However he is on Xarelto which is now being held because of this an IVC filter has been placed today. He is tolerating that well. His delirium tremens and alcohol withdrawal appear to be improving at this time. Continue to work towards discharge planning for his long course of intravenous antibiotic therapy for the MRSA infection of his knee. He has had some increase in his crit and possibly from ATN from hypotension. He is on vancomycin therapy. If there is any further increase of his creatinine would transitioning from vancomycin to daptomycin. We'll likely go to ECF at discharge. Current Visit: Yes Status: Acute Code(s): M00.9 - PYOGENIC ARTHRITIS, UNSPECIFIED SNOMED Code(s): 260221472 (2) Status post total left knee replacement Current Visit: No Status: Acute Code(s): Z96.652 - PRESENCE OF LEFT ARTIFICIAL KNEE JOINT SNOMED Code(s): 7859621920521 (3) MRSA infection Current Visit: Yes Status: Acute Code(s): A49.02 - METHICILLIN RESIS STAPH INFECTION, UNSP SITE SNOMED Code(s): 115106733 (4) Alcoholism Current Visit: Yes Status: Acute Code(s): F10.20 - ALCOHOL DEPENDENCE, UNCOMPLICATED SNOMED Code(s): 0833207
[2018-03-05] MEDS: HYDROcodone/APAP 10-325MG 1 EACH TAB PO PRN ×3 (06:22→22:59)
[2018-03-05 06:26] LABS: Anisocytosis Slight; Basophils % (A) 0 %; Eosinophils # (A) 0.4 k/uL (0-0.7); Eosinophils % (A) 5 %; HCT 23.1 % (39.0-53.0); HGB 7.6 gm/dL (13.0-17.5); Hypochromasia Slight; Lymphocytes # (A) 1.7 k/uL (1.0-4.8); Lymphocytes % (A) 23 %; MCHC 32.8 g/dL (31.0-37.0); MCV 94.6 fL (80.0-100.0); Macrocytosis Slight; Mean Platelet Volume 7.1; Monocytes # (A) 0.4 k/uL (0-1.0); Monocytes % (A) 5 %; Neutrophils # (A) 4.8 k/uL (1.3-7.7); Neutrophils % (A) 64 %; Platelet Count 381 k/uL (150-450); Poikilocytosis Moderate; RBC 2.44 m/uL (4.30-5.90); RDW 18.8 % (11.5-15.5); WBC 7.5 k/uL (3.8-10.6)
[2018-03-05 06:35] LABS: Magnesium 1.8 mg/dL (1.6-2.3); Phosphorus 3.1 mg/dL (2.5-4.5); Potassium 3.2 mmol/L (3.5-5.1)
--- NOTE | 2018-03-05 07:12 | P.PN ---
Subjective Progress Note Date: 03/05/18 Principal diagnosis: Infected left total knee Progress note dated 03/05/2018 This is a 58-year-old male with a history of acute upper GI bleed secondary to esophagitis, acute blood loss anemia, acute septic left knee joint status post recent left knee arthroplasty, MRSA sepsis, history of massive pulmonary embolism status post thrombectomy/embolectomy, status post IVC filter placement , chronic alcohol dependence and alcoholism, osteoarthritis, seizure disorder, chronic hypoxemic respiratory failure, COPD, rib fractures and history of incarcerated right inguinal hernia. The patient was in the intensive care unit was was recently transferred out. The patient did have a filter placement done by the vascular surgeon. The patient is resting comfortably over on the third floor. He appears to be in no distress. The patient denies any pain or discomfort. No difficulty breathing. The patient continues to remain on IV antibiotics. The patient apparently is not having any additional GI bleeding. Current labs white count of 7.5, hemoglobin 7.6, hematocrit 23.1 and a platelet count of 381,000. Sodium 142, potassium 3.2, chloride 112, CO2 26, anion gap normal, and BUN and creatinine were 26 and 1.65, respectively. Gram stain from the left knee shows evidence of methicillin-resistant staph aureus. Blood cultures and urine sampling is negative. Objective - Vital Signs Vital signs: Vital Signs Temp 97.6 F 03/04/18 20:40 Pulse 90 03/04/18 20:40 Resp 18 03/04/18 20:40 BP 97/67 03/04/18 20:40 Pulse Ox 96 03/04/18 20:40 Intake & Output 03/04/18 03/05/18 03/05/18 18:59 06:59 18:59 Intake Total 550 180 Output Total 895 400 Balance -345 -220 Weight 83.9 kg Intake: IV 550 Sodium Chloride 0.9% 1, 350 000 ml @ 75 mls/hr IV . [id number] [facility] Rx#:[id number] Vancomycin 1,500 mg In 125 Sodium Chloride 0.9% 250 ml @ 125 mls/hr IVPB Q24HR [facility] Rx#:[id number] Oral 180 Output: Urine 895 400 Other: Voiding Method Indwelling Catheter - Exam No acute distress, oriented 3. Awake and alert today. HEENT examination is grossly unremarkable. Mucous membranes are moist. No oral lesions. Neck supple. Full range of motion. No adenopathy thyromegaly or neck vein distention. Cardiovascular examination reveals regular rhythm rate. S1-S2 normal. No S3 or S4. No discernible murmur noted. Lungs reveal clear breath sounds. Her sounds are equal bilaterally. No adventitious lung sounds including wheezes rhonchi or crackles. Abdomen soft bowel sounds are heard. No masses or tenderness. Extremities are intact. No cyanosis clubbing or edema. Skin is without rash or lesion. Neurologic examination is brief but nonfocal. - Labs CBC & Chem 7: 03/05/18 06:15 03/05/18 06:15 Labs: Abnormal Lab Results - Last 24 Hours (Table) 03/03/18 03/05/18 03/05/18 Range/Units 05:05 06:15 06:15 RBC 2.44 L (4.30-5.90) m/uL Hgb 7.6 L (13.0-17.5) gm/dL Hct 23.1 L (39.0-53.0) % RDW 18.8 H (11.5-15.5) % Potassium 3.2 L (3.5-5.1) mmol/L Chloride 112 H (98-107) mmol/L BUN 26 H (9-20) mg/dL Creatinine 1.65 H (0.66-1.25) mg/dL Calcium 8.0 L (8.4-10.2) mg/dL Crossmatch See Detail Microbiology - Last 24 Hours (Table) 03/03/18 05:30 Urine Culture - Final Urine,Catheterized 03/01/18 16:21 Gram Stain - Final Knee - Left Wound Culture - Final Methicillin resist S. aureus Assessment and Plan Assessment: Assessment Acute upper GI bleeding secondary to esophagitis with acute blood loss anemia MRSA sepsis, secondary to acute septic left knee and recent left knee arthroplasty status post revision and removal of hardware History of massive pulmonary most him requiring thrombectomy/embolectomy for which the patient was placed on a factor X a inhibitor Status post IVC filter placement Chronic alcohol dependence and alcoholism with alcohol withdrawal syndrome, improved History of DJD History of seizure disorder Hypoxemic respiratory failure and underlying COPD History of chronic tobacco use History of alcohol withdrawal syndrome History of recent rib fracture secondary to fall Incarcerated right inguinal hernia Plan: Plan dated 03/05/2018 The patient was in the ICU but moved out recently. An IVC filter was placed by vascular surgery. The patient seemed be much more awake and alert. No respiratory issues to speak of. He is hoping to be discharge relatively soon and realizes that he likely will be discharged to some rehab facility or jail. The patient remains on vancomycin for his methicillin-resistant staph aureus sepsis. We will continue to follow. No additional recommendations are made. Prognosis is guarded. Time with Patient: Less than 30
[2018-03-05] MEDS ORDERED: VANCOMYCIN TROUGH DUE 1 EACH MISC MISCELLANE ONE (08:00)
[2018-03-05] MEDS: HYDROmorphone 1 MG/ML 1 ML SYRINGE IVP PRN ×2 (08:55→17:43)
[2018-03-05] MEDS: PANTOPRAZOLE 40 MG/10 ML VIAL IVP SCH ×2 (08:55→21:01)
[2018-03-05] MEDS: MULTIVITAMINS, THERA 1 EACH TAB PO SCH (08:56)
[2018-03-05] MEDS: METOPROLOL SUCCINATE (ER) 25 MG TAB.ER.24H PO SCH (08:56)
[2018-03-05] MEDS: LORazepam 0.5 MG TAB PO PRN ×2 (08:56→14:29)
[2018-03-05] MEDS: FERROUS SULFATE 325 MG TAB PO SCH ×2 (08:56→21:01)
[2018-03-05] MEDS: FOLIC ACID 1 MG TAB PO SCH (08:56)
--- NOTE | 2018-03-05 08:57 | P.PN ---
Subjective Progress Note Date: 03/05/18 Principal diagnosis: Status post stage I revision left knee This is a 58 year-old male post stage I revision left total knee arthroplasty with removal of components and placement of antibiotic spacer.. This is post- op day 4. The patient was evaluated at the bedside today. The patient denies nausea, vomiting, abdominal pain, shortness of breath, and chest pain this morning. He states his pain is controlled at this time. He should is also status post [place] filter placement yesterday. Xarelto is currently on hold due to recent GI bleed in the placement of the vena cava filter. IV antibiotics per Dr. Ren. Patient is currently awaiting subacute rehab when medically cleared. Objective - Vital Signs Vital signs: Vital Signs Temp 97.6 F 03/04/18 20:40 Pulse 90 03/04/18 20:40 Resp 18 03/04/18 20:40 BP 97/67 03/04/18 20:40 Pulse Ox 96 03/04/18 20:40 Intake & Output 03/04/18 03/05/18 03/05/18 18:59 06:59 18:59 Intake Total 550 180 Output Total 895 400 Balance -345 -220 Weight 83.9 kg Intake: IV 550 Sodium Chloride 0.9% 1, 350 000 ml @ 75 mls/hr IV . [id number] [facility] Rx#:[id number] Vancomycin 1,500 mg In 125 Sodium Chloride 0.9% 250 ml @ 125 mls/hr IVPB Q24HR [facility] Rx#:[id number] Oral 180 Output: Urine 895 400 Other: Voiding Method Indwelling Catheter - Exam The patient does not appear in acute distress. Alert and orientated x3. Dressing is clean dry and intact. Incision appears fine with no erythema or active drainage. Timothy are intact. Calf is soft and nontender. Good foot and ankle motion without difficulty. Sensation and circulatory status is intact. - Labs CBC & Chem 7: 03/05/18 06:15 03/05/18 06:15 Labs: Abnormal Lab Results - Last 24 Hours (Table) 03/03/18 03/05/18 03/05/18 Range/Units 05:05 06:15 06:15 RBC 2.44 L (4.30-5.90) m/uL Hgb 7.6 L (13.0-17.5) gm/dL Hct 23.1 L (39.0-53.0) % RDW 18.8 H (11.5-15.5) % Potassium 3.2 L (3.5-5.1) mmol/L Chloride 112 H (98-107) mmol/L BUN 26 H (9-20) mg/dL Creatinine 1.65 H (0.66-1.25) mg/dL Calcium 8.0 L (8.4-10.2) mg/dL Crossmatch See Detail Microbiology - Last 24 Hours (Table) 03/03/18 05:30 Urine Culture - Final Urine,Catheterized 03/01/18 16:21 Gram Stain - Final Knee - Left Wound Culture - Final Methicillin resist S. aureus Assessment and Plan (1) Acute upper GI bleed Current Visit: Yes Status: Acute Code(s): K92.2 - GASTROINTESTINAL HEMORRHAGE, UNSPECIFIED SNOMED Code(s): 65327414 (2) Alcoholism Current Visit: Yes Status: Acute Code(s): F10.20 - ALCOHOL DEPENDENCE, UNCOMPLICATED SNOMED Code(s): 9658029 (3) EtOH dependence Current Visit: Yes Status: Acute Code(s): F10.20 - ALCOHOL DEPENDENCE, UNCOMPLICATED SNOMED Code(s): 95763334 (4) History of total knee arthroplasty Current Visit: Yes Status: Acute Code(s): Z96.659 - PRESENCE OF UNSPECIFIED ARTIFICIAL KNEE JOINT SNOMED Code(s): 9575683732437 (5) MRSA infection Current Visit: Yes Status: Acute Code(s): A49.02 - METHICILLIN RESIS STAPH INFECTION, UNSP SITE SNOMED Code(s): 148859728 (6) Septic arthritis of knee, left Current Visit: Yes Status: Acute Code(s): M00.9 - PYOGENIC ARTHRITIS, UNSPECIFIED SNOMED Code(s): 702259307 Plan: 1. Continue pain control 2. Anticoagulation on hold, Juan M filter has been placed yesterday 3. Continue physical therapy and ambulation 4. Anticipate discharge to skilled rehab when cleared by internal medicine and infectious disease
[2018-03-05] MEDS: VANCOMYCIN 1,500 MG in SODIUM CHLORIDE 0.9% 250 ML IVPB SCH (10:33)
--- NOTE | 2018-03-05 15:13 | P.PN ---
Subjective Progress Note Date: 03/05/18 Addy Villalpando, is a 58 year old male who presented to the Orthopedic Surgery office for recheck of his left knee. He is status post left total knee arthroplasty, 4 months ago . Patient was complaining of of increased pain and swelling in the left knee. Patient had multiple hospitalizations for alcohol withdrawal as well as pulmonary embolism recently. Patient was complaining of pain and swelling in the left knee.He is having difficulty with weight bearing on the left knee secondary to pain. He did have a vague history of a remote fall which he did not seeks treatment for. He was evaluated by orthopedic surgery and was admitted directly to [facility], he was started on IV antibiotic vancomycin, and is scheduled for surgery on the left knee on Wednesday. On 02/27/2018 patient was seen and examined, he is alert and oriented 3 in no apparent distress sitting at the edge of his bed there is no fever or chills no headache or dizziness no chest pain no shortness of breath no cough no nausea or vomiting no abdominal pain no diarrhea and no urinary symptoms ane in the knee is well-controlled at this time. On 02/28/2018 patient was seen and examined, he is alert and oriented 3 in no apparent distress sitting at the edge of his bed there is no fever or chills no headache or dizziness no chest pain no shortness of breath no cough no nausea or vomiting no abdominal pain no diarrhea and no urinary symptoms ane in the knee is well-controlled at this time. 03/01/2018 patient is scheduled for surgery today for an I&D. He did require 1 dose of IV Ativan yesterday. Nursing staff gave Vistaril this morning for his anxiety. He is no longer having tachycardia. Hemoglobin 9.5 iron low at 47. He'll be started on ferrous sulfate 325 mg twice a day. Denies any chest pain or shortness breath. Denies any nausea or vomiting. Denies any bowel movement changes or urinary symptoms On 03/02/2018 patient is status post I&D postop day 1. Patient is currently resting comfortably in bed. Patient did require 3 doses of Ativan throughout night due to withdrawal. This time patient denies chest pain or shortness breath. Patient denies nausea vomiting or diarrhea. Patient denies any urinary burning or frequency 03/03/2018 patient required a transfer to the ICU due to upper GI bleed. Patient had coffee-ground emesis. NG tube was inserted. Hemoglobin down to 6.6 INR 1.7 she is on IV Sandostatin. GI is following and patient is scheduled for EGD. He is also receiving blood transfusion and FFP. Nephrology is also following the patient. She is having low-grade temps 100.4 this morning. White count is up to 14.4 and he is still tachycardic and blood pressure 85/52. 03/04/2018 patient status post EGD showing linear erosions or ulcerations in the mid and distal esophagus consistent with LA grade D reflux esophagitis and also a moderate size hiatal hernia. He continues on IV Protonix. NG tube was removed no further episodes of vomiting. Any scheduled to be transferred out of the ICU today. Was seen by vascular surgery he is scheduled for Juan M filter placement due to his history of PE and DVT. He can no longer take the Xarelto due to his severe GI bleed. Blood pressures are showing improvement after IV fluids. Patient also received a total of 3 units of RBCs and 2 units of FFP On 03/05/2018 patient is alert and oriented 3 in no apparent distress, he is complaining of knee pain and abdominal discomfort otherwise no complaints at this time no new episodes of nausea or vomiting hemoglobin today is down at 7.6 creatinine is stable at 1.65 Objective - Vital Signs Vital signs: Vital Signs Temp 97.5 F L 03/05/18 14:32 Pulse 93 03/05/18 14:32 Resp 18 03/05/18 14:35 BP 110/70 03/05/18 14:32 Pulse Ox 93 L 03/05/18 14:32 Intake & Output 03/04/18 03/05/18 03/05/18 18:59 06:59 18:59 Intake Total 550 180 Output Total 895 400 Balance -345 -220 Weight 83.9 kg Intake: IV 550 Sodium Chloride 0.9% 1, 350 000 ml @ 75 mls/hr IV . [id number] [facility] Rx#:[id number] Vancomycin 1,500 mg In 125 Sodium Chloride 0.9% 250 ml @ 125 mls/hr IVPB Q24HR [facility] Rx#:[id number] Oral 180 Output: Urine 895 400 Other: Voiding Method Indwelling Catheter - Exam At this time patient is alert and oriented 3 in no apparent distress HEENT head normocephalic and atraumatic Neck is supple no JVD no goiter no lymphadenopathy Chest exam reveals a few scattered crackles no wheezing cardiac exam reveals regular heart sounds no gallops no murmurs Extremity exam reveals no edema Neurological examination reveals no gross focal deficit - Labs CBC & Chem 7: 03/05/18 06:15 03/05/18 06:15 Labs: Abnormal Lab Results - Last 24 Hours (Table) 03/03/18 03/05/18 03/05/18 Range/Units 05:05 06:15 06:15 RBC 2.44 L (4.30-5.90) m/uL Hgb 7.6 L (13.0-17.5) gm/dL Hct 23.1 L (39.0-53.0) % RDW 18.8 H (11.5-15.5) % Potassium 3.2 L (3.5-5.1) mmol/L Chloride 112 H (98-107) mmol/L BUN 26 H (9-20) mg/dL Creatinine 1.65 H (0.66-1.25) mg/dL Calcium 8.0 L (8.4-10.2) mg/dL Crossmatch See Detail Microbiology - Last 24 Hours (Table) 03/03/18 05:30 Urine Culture - Final Urine,Catheterized Assessment and Plan Plan: #1 septic arthritis of the left knee: Aspiration culture from 02/25/2018 growing presumptive MRSA. Patient remains on IV vancomycin. Culture from aspiration growing MRSA. Status post stage I revision left total knee arthroplasty with removal of components and placement of antibiotic articulating spacer. ID following #2 recent history of pulmonary embolism and DVT. Patient is scheduled today for Juan M filter placement with Dr. Martinez. Patient no longer a candidate for anticoagulation. Xarelto discontinued #3 alcohol dependence with evidence of delirium tremens. Continue the CIWA protocol with Ativan and multivitamin, thiamine and folic acid #4 iron Deficiency anemia: Start ferrous sulfate 325 mg twice a day #5 severe protein calorie malnutrition present on admission. Add ensure #6 acute GI bleed with coffee-ground emesis causing acute blood loss anemia. Secondary to linear erosions or ulcerations in the mid distal esophagus consistent with reflux esophagitis. Continue Protonix. Hemoglobin 7.6 today #7 coagulopathy #8 hyperkalemia likely related to acute kidney injury. Resolved #9 acute kidney injury creatinine 1.67. Followed closely by nephrology. Continue with IV fluids #10 hypotension Secondary to GI bleed. Improved with IV fluids. #11 fever spikes. He did have a T-max of 101.3. Check blood culture. Infectious disease following #12 hypokalemia correcting Medication and labs reviewed continue with current management
[2018-03-05] MEDS ORDERED: Potassium Replacement Protocol 1 EACH MISC MISCELLANE PRN (15:18)
[2018-03-05] MEDS ORDERED: POTASSIUM CHLORIDE ER 20 MEQ TAB.ER PO STA ×3 (15:22→19:10)
--- NOTE | 2018-03-05 16:10 | P.PN ---
Subjective Progress Note Date: 03/05/18 Principal diagnosis: This is a 58-year-old male seen in consultation because of acute kidney injury after he became hypotensive postop left knee arthroplasty 4 days ago.. Additionally he had a Jack filter placement on 03/04/2018. He had GI bleed. His anticoagulant was never been on hold. His creatinine went up from 0.9 on 03/02/2018 to 1.67 on 03/03/2018 and remains at 1.65 as of this morning. He has mild cough he is a chronic smoker. He denies any shortness of breath nausea vomiting. Has poor appetite. His blood pressure is in the 101-110 range heart rate in the 90s. He is afebrile. Urine output is documented at 35 50 mL yesterday. Objective - Vital Signs Vital signs: Vital Signs Temp 97.5 F L 03/05/18 14:32 Pulse 93 03/05/18 14:32 Resp 18 03/05/18 14:35 BP 110/70 03/05/18 14:32 Pulse Ox 93 L 03/05/18 14:32 Intake & Output 03/04/18 03/05/18 03/05/18 18:59 06:59 18:59 Intake Total 550 180 Output Total 895 400 Balance -345 -220 Weight 83.9 kg Intake: IV 550 Sodium Chloride 0.9% 1, 350 000 ml @ 75 mls/hr IV . [id number] [facility] Rx#:[id number] Vancomycin 1,500 mg In 125 Sodium Chloride 0.9% 250 ml @ 125 mls/hr IVPB Q24HR [facility] Rx#:[id number] Oral 180 Output: Urine 895 400 Other: Voiding Method Indwelling Catheter On examination is awake alert and comfortable. HEENT exam no JVP neck is supple no facial asymmetry Lungs are clear to auscultation with an occasional coarse crackle at bases. Not clear but cough. Heart sounds are unremarkable for any murmur rub gallop Abdomen soft nontender Extremity exam was no edema Neurologically awake alert oriented. - Labs CBC & Chem 7: 03/05/18 06:15 03/05/18 06:15 Labs: Abnormal Lab Results - Last 24 Hours (Table) 03/03/18 03/05/18 03/05/18 Range/Units 05:05 06:15 06:15 RBC 2.44 L (4.30-5.90) m/uL Hgb 7.6 L (13.0-17.5) gm/dL Hct 23.1 L (39.0-53.0) % RDW 18.8 H (11.5-15.5) % Potassium 3.2 L (3.5-5.1) mmol/L Chloride 112 H (98-107) mmol/L BUN 26 H (9-20) mg/dL Creatinine 1.65 H (0.66-1.25) mg/dL Calcium 8.0 L (8.4-10.2) mg/dL Crossmatch See Detail Microbiology - Last 24 Hours (Table) 03/03/18 05:30 Urine Culture - Final Urine,Catheterized Assessment and Plan Assessment: Impression 1. Acute kidney injury from low 03/03/2018 blood pressure, creatinine stable then may be an element of vancomycin associated nephrotoxicity. Vanco trough level peaked at 30.8 on 03/01/2018 and the last one today is 21.7 2. Mild degree of hypokalemia as from low intake and possible diuresis from saline. Potassium is 3.2 3. Anemia hemoglobin 7.6, postop, with hardware removal and antibiotics spacer placement 4. Acute GI bleed off off anticoagulation 5. Status post Jack filter placement. 6. History of an embolism. Recommendation. 1. If possible consider discontinuing vancomycin because of the potential for nephrotoxicity. 2. Watch his lung status closely as he is some coughing and has occasional coarse crackle but he has COPD. Is a smoker. He might be going to see a chair but he has good urine output therefore I can just watch him for right now. 3. Watch hemoglobin and transfuse if necessary. 4. Replace potassium he will require about 40 mEq
[2018-03-05] MEDS: diphenhydrAMINE 50 MG/ML 1 ML VIAL IVP PRN (17:43)
--- NOTE | 2018-03-05 18:56 | XR ---
EXAMINATION TYPE: XR chest 1V DATE OF EXAM: 03/05/2018 CLINICAL HISTORY: Difficulty breathing progress study. TECHNIQUE: Single AP portable upright view of the chest is obtained. COMPARISON: Chest x-ray from one day earlier and older studies. FINDINGS: There is stable left subclavian central venous catheter. There is persistent left basilar opacity consistent with atelectasis and/or infiltrate and probable small left pleural effusion. Dimin ished inspiration on current study is seen. There is new central vascular congestion. Cardiac blood s ize is stable and upper limits of normal. Right-sided AC joint separation is redemonstrated. IMPRESSION: Mild new central vascular congestion is now felt present. Persistent small left pleural e ffusion and associated left basilar atelectasis and/or infiltrate.
[2018-03-05] MEDS ORDERED: POTASSIUM CHLORIDE ER 20 MEQ TAB.ER PO ONE (20:10)
[2018-03-05] MEDS: SODIUM CHLORIDE 0.9% 1,000 ML IV SCH (21:01)
[2018-03-05] MEDS: SENNOSIDES-DOCUSATE SODIUM 1 EACH TAB PO SCH (21:01)
[2018-03-05] MEDS: LORazepam 2 MG/ML INJ IV PRN ×2 (21:01→23:00)
[2018-03-05] MEDS: THIAMINE 100 MG TAB PO SCH (21:01)
[2018-03-05] MEDS ORDERED: POTASSIUM CHLORIDE 10 MEQ in WATER FOR INJECTION 1 100ML.BAG IVPB STA (22:09)
[2018-03-06] MEDS ORDERED: MAGNESIUM SULFATE-D5W PMX 1 GM in DEXTROSE/WATER 1 100ML.BAG IVPB ONE ×3 (03:30→04:30)
[2018-03-06] MEDS: METOPROLOL SUCCINATE (ER) 25 MG TAB.ER.24H PO SCH (09:13)
[2018-03-06] MEDS: FOLIC ACID 1 MG TAB PO SCH (09:13)
[2018-03-06] MEDS: LORazepam 0.5 MG TAB PO PRN ×2 (09:13→16:24)
[2018-03-06] MEDS: MULTIVITAMINS, THERA 1 EACH TAB PO SCH (09:14)
[2018-03-06] MEDS: VANCOMYCIN 1,250 MG in SODIUM CHLORIDE 0.9% 250 ML IVPB SCH (09:14)
[2018-03-06] MEDS: PANTOPRAZOLE 40 MG/10 ML VIAL IVP SCH ×2 (09:14→22:27)
[2018-03-06] MEDS: FERROUS SULFATE 325 MG TAB PO SCH ×2 (09:14→22:27)
[2018-03-06] MEDS: HYDROcodone/APAP 10-325MG 1 EACH TAB PO PRN ×2 (09:14→16:24)
--- NOTE | 2018-03-06 09:28 | P.PN ---
Subjective Progress Note Date: 03/06/18 Principal diagnosis: Status post stage I revision left knee This is a 58 year-old male post stage I revision left total knee arthroplasty with removal of components and placement of antibiotic spacer.. This is post- op day 5. The patient was evaluated at the bedside today. The patient denies nausea, vomiting, abdominal pain, shortness of breath, and chest pain this morning. He states his pain is controlled at this time. He is also status post Juan M filter placement 2 days ago. Xarelto is currently on hold due to recent GI bleed and the placement of the vena cava filter. IV antibiotics per Dr. Ren. Patient is currently awaiting subacute rehab when medically cleared. Objective - Vital Signs Vital signs: Vital Signs Temp 98.1 F 03/06/18 06:57 Pulse 98 03/06/18 06:57 Resp 12 03/06/18 06:57 BP 114/76 03/06/18 06:57 Pulse Ox 95 03/06/18 03:00 Intake & Output 03/05/18 03/06/18 03/06/18 18:59 06:59 18:59 Other: Voiding Method Diaper - Exam The patient does not appear in acute distress. Alert and orientated x3. Dressing is clean dry and intact. Incision appears fine with no erythema or active drainage. Timothy are intact. Calf is soft and nontender. Good foot and ankle motion without difficulty. Sensation and circulatory status is intact. - Labs CBC & Chem 7: 03/05/18 06:15 03/06/18 02:00 Labs: Abnormal Lab Results - Last 24 Hours (Table) 03/05/18 Range/Units 18:30 Potassium 3.4 L (3.5-5.1) mmol/L Microbiology - Last 24 Hours (Table) 03/04/18 20:38 Blood Culture - Preliminary Blood No Growth after 24 hours 03/01/18 16:21 Anaerobic Culture - Final Knee - Left 03/01/18 16:21 Anaerobic Culture - Final Knee - Left Assessment and Plan (1) Acute upper GI bleed Current Visit: Yes Status: Acute Code(s): K92.2 - GASTROINTESTINAL HEMORRHAGE, UNSPECIFIED SNOMED Code(s): 51654358 (2) Alcoholism Current Visit: Yes Status: Acute Code(s): F10.20 - ALCOHOL DEPENDENCE, UNCOMPLICATED SNOMED Code(s): 9220218 (3) EtOH dependence Current Visit: Yes Status: Acute Code(s): F10.20 - ALCOHOL DEPENDENCE, UNCOMPLICATED SNOMED Code(s): 77615498 (4) History of total knee arthroplasty Current Visit: Yes Status: Acute Code(s): Z96.659 - PRESENCE OF UNSPECIFIED ARTIFICIAL KNEE JOINT SNOMED Code(s): 2451496584269 (5) MRSA infection Current Visit: Yes Status: Acute Code(s): A49.02 - METHICILLIN RESIS STAPH INFECTION, UNSP SITE SNOMED Code(s): 016173626 (6) Septic arthritis of knee, left Current Visit: Yes Status: Acute Code(s): M00.9 - PYOGENIC ARTHRITIS, UNSPECIFIED SNOMED Code(s): 963410306 Plan: 1. Continue pain control 2. Anticoagulation on hold, Juan M filter has been placed 3. Continue physical therapy and ambulation 4. Anticipate discharge to skilled rehab when cleared by internal medicine and infectious disease
[2018-03-06] MEDS: SODIUM CHLORIDE 0.9% 1,000 ML IV SCH (10:58)
--- NOTE | 2018-03-06 11:45 | P.PN ---
Subjective Progress Note Date: 03/06/18 Principal diagnosis: Left knee pyogenic arthritis, upper GI bleeding, alcohol withdrawal. Reevaluated on 03/04/2018, patient is status post stage I revision of left knee arthroplasty with removal of hardware, and placement of an antibiotic spacer. Postoperative day #3. While inpatient, the patient developed upper GI bleeding , underwent EGD, postoperative day #1, and he was found to have mostly evidence of reflux esophagitis. Patient required a total of 3 units of packed RBCs which were transfused, and 2 units of fresh frozen plasma. Hemoglobin today is 8.4. Considering his recent history of deep vein thromboses and pulmonary embolism, and supposedly he had massive pulmonary emboli, patient could not be placed on anticoagulation therapy at this point because of the GI bleeding, and his anticoagulation therapy is presently on hold, I did recommend vascular surgery evaluation, and IVC filter placement. This is supposed to take place today. Over the last 24 hours, the patient seems to be a bit better, no active bleeding is noted, his nasogastric tube has been removed. Continues to have some black stools. Remains on alcohol withdrawal protocol with seems to be working well, not requiring much sedation over the last 12 hours. Electrolytes are normal BUN however is 32 creatinine is 1.65. His baseline creatinine on admission was 0.71, however over the last 2 days that has been significantly elevated creatinine, and that is felt to be acute kidney injury secondary to hypotension, acute tubular necrosis. When patient was transferred to the ICU, he was noted to have systolic blood pressure in the 70s. Responded to fluids and blood transfusion. Reevaluated today on 03/06/2018, patient is now postoperative day #5. He had revision left knee arthroplasty with removal of hardware, and placement of antibiotic spacer, patient had MRSA septic arthritis. Remains on antibiotics as per infectious disease on the case. While inpatient, the patient developed upper GI bleeding and he was found to have reflux esophagitis on EGD. Patient was admitted to the ICU for a brief period of time basically overnight, and he was treated for hypotension and symptoms of alcohol withdrawal. Today the patient is doing better, remains a bit anxious, remains on multiple meds, he had a inferior vena cava filter placed because of his absolute contraindication to anticoagulation therapy, and he had a recent DVT and pulmonary embolism/ massive. Today the patient denies shortness of breath, no cough, no wheezing, no nausea, no vomiting, no abdominal pain. Continues to have left knee pain. Objective - Vital Signs Vital signs: Vital Signs Temp 98.1 F 03/06/18 06:57 Pulse 98 03/06/18 06:57 Resp 12 03/06/18 06:57 BP 114/76 03/06/18 06:57 Pulse Ox 95 03/06/18 03:00 Intake & Output 03/05/18 03/06/18 03/06/18 18:59 06:59 18:59 Other: Voiding Method Diaper - Exam General appearance: Revealed a 58-year-old white male, anxious, in no distress. HET: Head is normocephalic and atraumatic. PERRLA, EOMI, no icterus, Neck: Short obese neck, no neck masses, no JVD, no stridor.. Heart: Distant S1 S2. Regular rate and rhythm, no murmur. Lungs: Good breath sound bilaterally, no crackles or rhonchi or wheezes. Abdomen: Obese, soft, nontender, no megaly, no rebound, no guarding, positive bowel sounds. Extremities: No clubbing edema or cyanosis, good pulses bilaterally, no rashes. Right knee is wrapped with sterile dressing, seems to be swollen, tender to palpation. Neurological: Alert oriented 3, no gross focal neurologic deficit Lymphatics: No lymphadenopathy Psychiatric: Blunted affect, intermittently confused, anxious, - Labs CBC & Chem 7: 03/05/18 06:15 03/06/18 02:00 Labs: Abnormal Lab Results - Last 24 Hours (Table) 03/05/18 Range/Units 18:30 Potassium 3.4 L (3.5-5.1) mmol/L Microbiology - Last 24 Hours (Table) 03/04/18 20:38 Blood Culture - Preliminary Blood No Growth after 24 hours 03/01/18 16:21 Anaerobic Culture - Final Knee - Left 03/01/18 16:21 Anaerobic Culture - Final Knee - Left Assessment and Plan Assessment: Impression: 1 acute upper GI bleeding, secondary to reflux esophagitis. 2 acute septic left knee joint,/pyogenic arthritis, recent left arthroplasty patient is status post revision and removal of hardware. Placement of antibiotic spacer. This is secondary to MRSA. 3 acute sepsis and septic knee joint. With hypotension could also be related to his GI blood loss. 5 history of massive pulmonary embolism requiring thrombectomy/embolectomy done recently at [facility]. Patient has been on Xarelto which is now on hold, patient will require IVC filter placement. 6 alcohol dependence and alcoholism, patient is high risk for alcohol withdrawal hence he is now on the CIWA protocol. 7 status post IVC filter placement. 8 multiple comorbidities including osteoarthritis, seizure disorder, chronic hypoxic respiratory failure and underlying COPD which is presently inactive, chronic smoker, history of recurrent episodes of alcohol withdrawal, history of rib fractures related to falls, history of incarcerated right inguinal hernia Recommendation: Continue present supportive care measures, including antibiotics , alcohol withdrawal protocol, nutritional support, IVC filter, consider discharge planning to a rehab facility next week, once cleared by orthopedics and by infectious disease on the case. Time with Patient: Less than 30
--- NOTE | 2018-03-06 13:38 | P.PN ---
Subjective Progress Note Date: 03/06/18 Addy Villalpando, is a 58 year old male who presented to the Orthopedic Surgery office for recheck of his left knee. He is status post left total knee arthroplasty, 4 months ago . Patient was complaining of of increased pain and swelling in the left knee. Patient had multiple hospitalizations for alcohol withdrawal as well as pulmonary embolism recently. Patient was complaining of pain and swelling in the left knee.He is having difficulty with weight bearing on the left knee secondary to pain. He did have a vague history of a remote fall which he did not seeks treatment for. He was evaluated by orthopedic surgery and was admitted directly to [facility], he was started on IV antibiotic vancomycin, and is scheduled for surgery on the left knee on Wednesday. On 02/27/2018 patient was seen and examined, he is alert and oriented 3 in no apparent distress sitting at the edge of his bed there is no fever or chills no headache or dizziness no chest pain no shortness of breath no cough no nausea or vomiting no abdominal pain no diarrhea and no urinary symptoms ane in the knee is well-controlled at this time. On 02/28/2018 patient was seen and examined, he is alert and oriented 3 in no apparent distress sitting at the edge of his bed there is no fever or chills no headache or dizziness no chest pain no shortness of breath no cough no nausea or vomiting no abdominal pain no diarrhea and no urinary symptoms ane in the knee is well-controlled at this time. 03/01/2018 patient is scheduled for surgery today for an I&D. He did require 1 dose of IV Ativan yesterday. Nursing staff gave Vistaril this morning for his anxiety. He is no longer having tachycardia. Hemoglobin 9.5 iron low at 47. He'll be started on ferrous sulfate 325 mg twice a day. Denies any chest pain or shortness breath. Denies any nausea or vomiting. Denies any bowel movement changes or urinary symptoms On 03/02/2018 patient is status post I&D postop day 1. Patient is currently resting comfortably in bed. Patient did require 3 doses of Ativan throughout night due to withdrawal. This time patient denies chest pain or shortness breath. Patient denies nausea vomiting or diarrhea. Patient denies any urinary burning or frequency 03/03/2018 patient required a transfer to the ICU due to upper GI bleed. Patient had coffee-ground emesis. NG tube was inserted. Hemoglobin down to 6.6 INR 1.7 she is on IV Sandostatin. GI is following and patient is scheduled for EGD. He is also receiving blood transfusion and FFP. Nephrology is also following the patient. She is having low-grade temps 100.4 this morning. White count is up to 14.4 and he is still tachycardic and blood pressure 85/52. 03/04/2018 patient status post EGD showing linear erosions or ulcerations in the mid and distal esophagus consistent with LA grade D reflux esophagitis and also a moderate size hiatal hernia. He continues on IV Protonix. NG tube was removed no further episodes of vomiting. Any scheduled to be transferred out of the ICU today. Was seen by vascular surgery he is scheduled for Juan M filter placement due to his history of PE and DVT. He can no longer take the Xarelto due to his severe GI bleed. Blood pressures are showing improvement after IV fluids. Patient also received a total of 3 units of RBCs and 2 units of FFP On 03/05/2018 patient is alert and oriented 3 in no apparent distress, he is complaining of knee pain and abdominal discomfort otherwise no complaints at this time no new episodes of nausea or vomiting hemoglobin today is down at 7.6 creatinine is stable at 1.65 On 03/06/2018 patient is feeling better alert and oriented 3 lying comfortably in bed denies any pain or discomfort denies any shortness of breath labs are still pending today Objective - Vital Signs Vital signs: Vital Signs Temp 98.1 F 03/06/18 06:57 Pulse 98 03/06/18 06:57 Resp 12 03/06/18 06:57 BP 114/76 03/06/18 06:57 Pulse Ox 95 03/06/18 03:00 Intake & Output 03/05/18 03/06/18 03/06/18 18:59 06:59 18:59 Other: Voiding Method Diaper - Exam At this time patient is alert and oriented 3 in no apparent distress HEENT head normocephalic and atraumatic Neck is supple no JVD no goiter no lymphadenopathy Chest exam reveals a few scattered crackles no wheezing cardiac exam reveals regular heart sounds no gallops no murmurs Extremity exam reveals no edema Neurological examination reveals no gross focal deficit - Labs CBC & Chem 7: 03/05/18 06:15 03/06/18 02:00 Labs: Abnormal Lab Results - Last 24 Hours (Table) 03/05/18 Range/Units 18:30 Potassium 3.4 L (3.5-5.1) mmol/L Microbiology - Last 24 Hours (Table) 03/04/18 20:38 Blood Culture - Preliminary Blood No Growth after 24 hours 03/01/18 16:21 Anaerobic Culture - Final Knee - Left 03/01/18 16:21 Anaerobic Culture - Final Knee - Left Assessment and Plan Plan: #1 septic arthritis of the left knee: Aspiration culture from 02/25/2018 growing presumptive MRSA. Patient remains on IV vancomycin. Culture from aspiration growing MRSA. Status post stage I revision left total knee arthroplasty with removal of components and placement of antibiotic articulating spacer. ID following #2 recent history of pulmonary embolism and DVT. Patient is scheduled today for [place] filter placement with Dr. Martinez. Patient no longer a candidate for anticoagulation. Xarelto discontinued #3 alcohol dependence with evidence of delirium tremens. Continue the CIWA protocol with Ativan and multivitamin, thiamine and folic acid #4 iron Deficiency anemia: Start ferrous sulfate 325 mg twice a day #5 severe protein calorie malnutrition present on admission. Add ensure #6 acute GI bleed with coffee-ground emesis causing acute blood loss anemia. Secondary to linear erosions or ulcerations in the mid distal esophagus consistent with reflux esophagitis. Continue Protonix. Hemoglobin 7.6 today #7 coagulopathy #8 hyperkalemia likely related to acute kidney injury. Resolved #9 acute kidney injury creatinine 1.67. Followed closely by nephrology. Continue with IV fluids #10 hypotension Secondary to GI bleed. Improved with IV fluids. #11 fever spikes. He did have a T-max of 101.3. Check blood culture. Infectious disease following #12 hypokalemia correcting Medication and labs reviewed continue with current management Possible discharge in the next 1-2 days awaiting further infectious disease recommendation for antibiotic on discharge Will recheck labs including CBC in a.m.
--- NOTE | 2018-03-06 14:20 | P.PN ---
Subjective Progress Note Date: 03/06/18 Principal diagnosis: This is a 58-year-old male seen in consultation because of acute kidney injury after he became hypotensive postop left knee arthroplasty 5 days ago.. Additionally he had a [place] filter placement on 03/04/2018. He had GI bleed. His anticoagulant has been on hold, he has had history of pulmonary embolism in the past. His creatinine went up from 0.9 on 03/02/2018 to 1.67 on 03/03/2018 and remains at 1.65 yesterday 03/05/2018. He feels much better this morning. He is maintained fair amount of urine over the last 2 days. 3.5 L and 1.2 L. He denies any nausea vomiting headache fever chills cough shortness of breath. No abdominal pain no dysuria frequency. He has mild cough he is a chronic smoker. He denies any shortness of breath nausea vomiting. Has poor appetite. His blood pressure is in the 101-110 range heart rate in the 90s. He is afebrile. Objective - Vital Signs Vital signs: Vital Signs Temp 98.1 F 03/06/18 06:57 Pulse 98 03/06/18 06:57 Resp 12 03/06/18 06:57 BP 114/76 03/06/18 06:57 Pulse Ox 95 03/06/18 03:00 Intake & Output 03/05/18 03/06/18 03/06/18 18:59 06:59 18:59 Other: Voiding Method Diaper Examination awake alert oriented comfortable HEENT exam no JVP neck is supple no facial asymmetry Lungs clear to auscultation good air entry bilaterally Heart sounds unremarkable for any murmur rub gallop Abdomen soft nontender no organomegaly status masses Extremity exam was trace edema Neurologically awake alert oriented. He has dressing on his left knee. - Labs CBC & Chem 7: 03/05/18 06:15 03/06/18 02:00 Labs: Abnormal Lab Results - Last 24 Hours (Table) 03/05/18 Range/Units 18:30 Potassium 3.4 L (3.5-5.1) mmol/L Microbiology - Last 24 Hours (Table) 03/04/18 20:38 Blood Culture - Preliminary Blood No Growth after 24 hours 03/01/18 16:21 Anaerobic Culture - Final Knee - Left 03/01/18 16:21 Anaerobic Culture - Final Knee - Left Assessment and Plan Assessment: Impression 1. Acute kidney injury from low blood pressure, creatinine stable, additionally he might have an element of vancomycin associated nephrotoxicity. Vanco trough level peaked at 30.8 on 03/01/2018 and the last one yesterday on is 21.7 2. Mild degree of hypokalemia as from low intake and possible diuresis from saline. Potassium was 3.2, with replacement is been resolved and potassium is 4.1 today. 3. Anemia hemoglobin 7.6, postop hardware removal and antibiotics spacer placement 4. Acute GI bleed off off anticoagulation 5. Status post Juan M filter placement. 6. History of an pulmonary embolism. 7. Posttreatment recent chest x-ray dated yesterday 03/05/2018 is suggestive of possible CHF Recommendation. 1. If possible consider discontinuing vancomycin because of the potential for nephrotoxicity. 2. Repeat labs. 3. As his lungs are clear today there is no need for any diuretics.
[2018-03-06 16:46] LABS: Anisocytosis Slight; Basophils % (A) 0 %; Eosinophils # (A) 0.4 k/uL (0-0.7); Eosinophils % (A) 4 %; HCT 24.1 % (39.0-53.0); HGB 7.4 gm/dL (13.0-17.5); Hypochromasia Marked; Lymphocytes # (A) 1.3 k/uL (1.0-4.8); Lymphocytes % (A) 13 %; MCH 29.9 pg (25.0-35.0); MCHC 30.6 g/dL (31.0-37.0); MCV 97.7 fL (80.0-100.0); Macrocytosis Slight; Mean Platelet Volume 6.9; Monocytes # (A) 0.5 k/uL (0-1.0); Monocytes % (A) 5 %; Neutrophils # (A) 7.8 k/uL (1.3-7.7); Neutrophils % (A) 77 %; Platelet Count 468 k/uL (150-450); Poikilocytosis Slight; RBC 2.47 m/uL (4.30-5.90); RDW 18.4 % (11.5-15.5); WBC 10.1 k/uL (3.8-10.6)
[2018-03-06 16:55] LABS: Albumin 1.8 g/dL (3.5-5.0); Calcium 8.1 mg/dL (8.4-10.2); Potassium 3.9 mmol/L (3.5-5.1); Total Bilirubin 0.4 mg/dL (0.2-1.3); Total Protein 4.1 g/dL (6.3-8.2)
[2018-03-06] MEDS: HYDROmorphone 1 MG/ML 1 ML SYRINGE IVP PRN (22:27)
[2018-03-06] MEDS: THIAMINE 100 MG TAB PO SCH (22:28)
[2018-03-06] MEDS: SENNOSIDES-DOCUSATE SODIUM 1 EACH TAB PO SCH (22:28)
[2018-03-07] MEDS: SODIUM CHLORIDE 0.9% 1,000 ML IV SCH ×2 (01:48→07:56)
[2018-03-07] MEDS: HYDROmorphone 1 MG/ML 1 ML SYRINGE IVP PRN (02:53)
[2018-03-07] MEDS: HYDROcodone/APAP 10-325MG 1 EACH TAB PO PRN ×3 (04:41→18:38)
--- NOTE | 2018-03-07 07:09 | IR ---
Fluoroscopy HISTORY: Deep venous thrombosis 2.4 minutes fluoroscopy time supplied to the referring clinician. 488 intraoperative C-arm images do cument the procedure. See dictated report from vascular surgery.
[2018-03-07] MEDS: PANTOPRAZOLE 40 MG/10 ML VIAL IVP SCH ×2 (07:46→20:59)
[2018-03-07] MEDS: VANCOMYCIN 1,250 MG in SODIUM CHLORIDE 0.9% 250 ML IVPB SCH (07:46)
[2018-03-07] MEDS: FERROUS SULFATE 325 MG TAB PO SCH ×2 (07:47→20:59)
[2018-03-07] MEDS: METOPROLOL SUCCINATE (ER) 25 MG TAB.ER.24H PO SCH (07:47)
[2018-03-07] MEDS: FOLIC ACID 1 MG TAB PO SCH (07:47)
[2018-03-07] MEDS: LORazepam 0.5 MG TAB PO PRN ×2 (07:56→21:00)
--- NOTE | 2018-03-07 10:12 | P.PN ---
Subjective Progress Note Date: 03/07/18 This is a 58-year-old male who is status post stage I revision left total knee arthroplasty with removal of components of placement of an antibiotic spacer. This is postoperative day #6. Patient is seen and evaluated at bedside with Dr. Bassem Traylor. Patient is also status post placement of a Juan M filter 3 days ago. Xarelto is currently on hold due to [place] filter placement and recent GI bleed. Patient states that his pain is controlled today. Patient denies any fever/chills, numbness, weakness, tingling, abdominal pain, shortness of breath or chest pain. Objective - Vital Signs Vital signs: Vital Signs Temp 97.8 F 03/07/18 07:00 Pulse 84 03/07/18 07:00 Resp 16 03/07/18 07:00 BP 117/81 03/07/18 07:00 Pulse Ox 99 03/07/18 07:00 Intake & Output 03/06/18 03/07/18 03/07/18 18:59 06:59 18:59 Intake Total 240 Balance 240 Intake: Oral 240 Other: Voiding Method Diaper # Voids 1 # Bowel Movements 1 - Exam Patient is in no acute distress and patient is alert. Calf is soft and nontender to palpation. Dressing is clean, dry and intact. Patient has full foot and ankle motion without pain or difficulty. Neurovascular status and circulatory status are intact. - Labs CBC & Chem 7: 03/06/18 16:30 03/06/18 16:30 Labs: Abnormal Lab Results - Last 24 Hours (Table) 03/06/18 03/06/18 Range/Units 16:30 16:30 RBC 2.47 L (4.30-5.90) m/uL Hgb 7.4 L (13.0-17.5) gm/dL Hct 24.1 L (39.0-53.0) % MCHC 30.6 L (31.0-37.0) g/dL RDW 18.4 H (11.5-15.5) % Plt Count 468 H (150-450) k/uL Neutrophils # 7.8 H (1.3-7.7) k/uL Chloride 113 H (98-107) mmol/L Creatinine 1.46 H (0.66-1.25) mg/dL Calcium 8.1 L (8.4-10.2) mg/dL AST 14 L (17-59) U/L ALT 15 L (21-72) U/L Total Protein 4.1 L (6.3-8.2) g/dL Albumin 1.8 L (3.5-5.0) g/dL Microbiology - Last 24 Hours (Table) 03/04/18 20:38 Blood Culture - Preliminary Blood No Growth after 48 hours Assessment and Plan Assessment: Status post stage I revision left total knee arthroplasty with removal of components and placement of antibiotic spacer. History of pulmonary embolism. Alcohol dependence with delirium tremens. Iron deficiency anemia. (1) History of total knee arthroplasty Current Visit: Yes Status: Acute Code(s): Z96.659 - PRESENCE OF UNSPECIFIED ARTIFICIAL KNEE JOINT SNOMED Code(s): 9984568109774 (2) Alcoholism Current Visit: Yes Status: Acute Code(s): F10.20 - ALCOHOL DEPENDENCE, UNCOMPLICATED SNOMED Code(s): 0925728 (3) MRSA infection Current Visit: Yes Status: Acute Code(s): A49.02 - METHICILLIN RESIS STAPH INFECTION, UNSP SITE SNOMED Code(s): 080657720 (4) Septic arthritis of knee, left Current Visit: Yes Status: Acute Code(s): M00.9 - PYOGENIC ARTHRITIS, UNSPECIFIED SNOMED Code(s): 684048803 (5) Acute blood loss anemia Current Visit: Yes Status: Acute Code(s): D62 - ACUTE POSTHEMORRHAGIC ANEMIA SNOMED Code(s): 364843189 (6) Acute upper GI bleed Current Visit: Yes Status: Acute Code(s): K92.2 - GASTROINTESTINAL HEMORRHAGE, UNSPECIFIED SNOMED Code(s): 21766366 (7) Coffee ground emesis Current Visit: Yes Status: Acute Code(s): K92.0 - HEMATEMESIS SNOMED Code( s): 03057272 (8) EtOH dependence Current Visit: Yes Status: Acute Code(s): F10.20 - ALCOHOL DEPENDENCE, UNCOMPLICATED SNOMED Code(s): 81959603 Plan: 1. Weightbearing as tolerated to the left lower extremity. 2. Daily dressing changes. 3. Cultures are positive for MRSA. 4. Appreciate input from internal medicine and infectious disease. 5. Xarelto is currently on hold for GI bleed and vena cava filter placement. 6. Continue routine postoperative care and pain control. IV antibiotics per infectious disease. 7. Likely discharge to rehab when cleared medically.
[2018-03-07 11:00] LABS: Anisocytosis Slight; Basophils # (A) 0.1 k/uL (0-0.2); Basophils % (A) 1 %; Eosinophils # (A) 0.3 k/uL (0-0.7); Eosinophils % (A) 3 %; Hypochromasia Marked; Lymphocytes # (A) 1.4 k/uL (1.0-4.8); Lymphocytes % (A) 11 %; MCH 30.9 pg (25.0-35.0); MCHC 30.9 g/dL (31.0-37.0); MCV 99.9 fL (80.0-100.0); Macrocytosis Moderate; Mean Platelet Volume 7.4; Monocytes # (A) 0.5 k/uL (0-1.0); Monocytes % (A) 4 %; Neutrophils # (A) 10.3 k/uL (1.3-7.7); Neutrophils % (A) 80 %; Platelet Count 565 k/uL (150-450); RBC 3.01 m/uL (4.30-5.90); RDW 18.1 % (11.5-15.5); WBC 12.8 k/uL (3.8-10.6)
[2018-03-07 11:08] LABS: Albumin 2.1 g/dL (3.5-5.0); Calcium 8.2 mg/dL (8.4-10.2); Potassium 3.9 mmol/L (3.5-5.1); Total Bilirubin 0.4 mg/dL (0.2-1.3); Total Protein 4.7 g/dL (6.3-8.2)
[2018-03-07 11:10] LABS: HGB 9.3 gm/dL (13.0-17.5)
--- NOTE | 2018-03-07 11:28 | P.PN ---
Subjective Progress Note Date: 03/07/18 Addy Villalpando, is a 58 year old male who presented to the Orthopedic Surgery office for recheck of his left knee. He is status post left total knee arthroplasty, 4 months ago . Patient was complaining of of increased pain and swelling in the left knee. Patient had multiple hospitalizations for alcohol withdrawal as well as pulmonary embolism recently. Patient was complaining of pain and swelling in the left knee.He is having difficulty with weight bearing on the left knee secondary to pain. He did have a vague history of a remote fall which he did not seeks treatment for. He was evaluated by orthopedic surgery and was admitted directly to [facility], he was started on IV antibiotic vancomycin, and is scheduled for surgery on the left knee on Wednesday. On 02/27/2018 patient was seen and examined, he is alert and oriented 3 in no apparent distress sitting at the edge of his bed there is no fever or chills no headache or dizziness no chest pain no shortness of breath no cough no nausea or vomiting no abdominal pain no diarrhea and no urinary symptoms ane in the knee is well-controlled at this time. 02/28/2018 patient still requiring the IV Ativan for withdrawal-like symptoms. Patient is easily agitated. Reports that he does not need to be here in the hospital. That he wants to leave right away. Patient has been receiving the IV Ativan. Aspiration culture of the left knee completed on 02/25/2018 shows presumptive MRSA. He is currently on IV vancomycin. Orthopedics are planning an I&D on Wednesday with antibiotic spacer. 03/01/2018 patient is scheduled for surgery today for an I&D. He did require 1 dose of IV Ativan yesterday. Nursing staff gave Vistaril this morning for his anxiety. He is no longer having tachycardia. Hemoglobin 9.5 iron low at 47. He'll be started on ferrous sulfate 325 mg twice a day. Denies any chest pain or shortness breath. Denies any nausea or vomiting. Denies any bowel movement changes or urinary symptoms On 03/02/2018 patient is status post I&D postop day 1. Patient is currently resting comfortably in bed. Patient did require 3 doses of Ativan throughout night due to withdrawal. This time patient denies chest pain or shortness breath. Patient denies nausea vomiting or diarrhea. Patient denies any urinary burning or frequency 03/03/2018 patient required a transfer to the ICU due to upper GI bleed. Patient had coffee-ground emesis. NG tube was inserted. Hemoglobin down to 6.6 INR 1.7 she is on IV Sandostatin. GI is following and patient is scheduled for EGD. He is also receiving blood transfusion and FFP. Nephrology is also following the patient. She is having low-grade temps 100.4 this morning. White count is up to 14.4 and he is still tachycardic and blood pressure 85/52. 03/04/2018 patient status post EGD showing linear erosions or ulcerations in the mid and distal esophagus consistent with LA grade D reflux esophagitis and also a moderate size hiatal hernia. He continues on IV Protonix. NG tube was removed no further episodes of vomiting. Any scheduled to be transferred out of the ICU today. Was seen by vascular surgery he is scheduled for [place] filter placement due to his history of PE and DVT. He can no longer take the Xarelto due to his severe GI bleed. Blood pressures are showing improvement after IV fluids. Patient also received a total of 3 units of RBCs and 2 units of FFP On 03/05/2018 patient is alert and oriented 3 in no apparent distress, he is complaining of knee pain and abdominal discomfort otherwise no complaints at this time no new episodes of nausea or vomiting hemoglobin today is down at 7.6 creatinine is stable at 1.65 On 03/06/2018 patient is feeling better alert and oriented 3 lying comfortably in bed denies any pain or discomfort denies any shortness of breath labs are still pending today 03/07/2018 patient lying in bed comfortably. Status post [place] filter on Wednesday. No further episodes of vomiting. Hemoglobin is up to 9.3. Patient has had increase in his white count to 12.8, platelets elevated at 565. He has no new complaints. Awaiting on infectious disease discharge antibiotic recommendations. Patient will require ECF placement. Patient denies any chest pain or shortness of breath. Denies any nausea or vomiting. Denies any bowel movement changes or urinary symptoms. Objective - Vital Signs Vital signs: Vital Signs Temp 97.8 F 03/07/18 07:00 Pulse 84 03/07/18 07:00 Resp 16 03/07/18 07:00 BP 117/81 03/07/18 07:00 Pulse Ox 99 03/07/18 07:00 Intake & Output 03/06/18 03/07/18 03/07/18 18:59 06:59 18:59 Intake Total 240 Balance 240 Intake: Oral 240 Other: Voiding Method Diaper Urinal Diaper # Voids 1 # Bowel Movements 1 - Exam Head normocephalic Neck supple Lungs clear to auscultation bilaterally no wheezing or crackles Heart regular rate and rhythm S1-S2, no rub or gallop Abdomen is soft nontender nondistended positive bowel sounds no hepatosplenomegaly Extremities right knee dressing clean dry and intact. +1 edema bilateral lower extremities Neuro resting comfortably - Labs CBC & Chem 7: 03/07/18 10:21 03/07/18 10:21 Labs: Abnormal Lab Results - Last 24 Hours (Table) 03/06/18 03/06/18 03/07/18 Range/Units 16:30 16:30 10:21 WBC 12.8 H (3.8-10.6) k/uL RBC 2.47 L 3.01 L (4.30-5.90) m/uL Hgb 7.4 L 9.3 L D (13.0-17.5) gm/dL Hct 24.1 L 30.0 L (39.0-53.0) % MCHC 30.6 L 30.9 L (31.0-37.0) g/dL RDW 18.4 H 18.1 H (11.5-15.5) % Plt Count 468 H 565 H (150-450) k/uL Neutrophils # 7.8 H 10.3 H (1.3-7.7) k/uL Chloride 113 H (98-107) mmol/L Carbon Dioxide (22-30) mmol/L Creatinine 1.46 H (0.66-1.25) mg/dL Calcium 8.1 L (8.4-10.2) mg/dL AST 14 L (17-59) U/L ALT 15 L (21-72) U/L Total Protein 4.1 L (6.3-8.2) g/dL Albumin 1.8 L (3.5-5.0) g/dL 03/07/18 Range/Units 10:21 WBC (3.8-10.6) k/uL RBC (4.30-5.90) m/uL Hgb (13.0-17.5) gm/dL Hct (39.0-53.0) % MCHC (31.0-37.0) g/dL RDW (11.5-15.5) % Plt Count (150-450) k/uL Neutrophils # (1.3-7.7) k/uL Chloride 113 H (98-107) mmol/L Carbon Dioxide 21 L (22-30) mmol/L Creatinine 1.43 H (0.66-1.25) mg/dL Calcium 8.2 L (8.4-10.2) mg/dL AST 16 L (17-59) U/L ALT 11 L (21-72) U/L Total Protein 4.7 L (6.3-8.2) g/dL Albumin 2.1 L (3.5-5.0) g/dL Microbiology - Last 24 Hours (Table) 03/04/18 20:38 Blood Culture - Preliminary Blood No Growth after 48 hours Assessment and Plan Assessment: #1 septic arthritis of the left knee: Aspiration culture from 02/25/2018 growing presumptive MRSA. Patient remains on IV vancomycin. Culture from aspiration growing MRSA. Status post stage I revision left total knee arthroplasty with removal of components and placement of antibiotic articulating spacer. ID following we'll await their antibiotic recommendations. #2 recent history of pulmonary embolism and DVT. Status post Juan M filter placement. Patient no longer a candidate for anticoagulation. Xarelto discontinued #3 alcohol dependence with evidence of delirium tremens. Continue the CIWA protocol with Ativan and multivitamin, thiamine and folic acid #4 iron Deficiency anemia: ferrous sulfate 325 mg twice a day #5 severe protein calorie malnutrition present on admission. Add ensure #6 acute GI bleed with coffee-ground emesis causing acute blood loss anemia. Secondary to linear erosions or ulcerations in the mid distal esophagus consistent with reflux esophagitis. Continue Protonix. Hemoglobin stable #7 coagulopathy #8 hyperkalemia likely related to acute kidney injury. Resolved #9 acute kidney injury creatinine 1.43. Followed closely by nephrology. Continue with IV fluids #10 hypotension Secondary to GI bleed. Improved with IV fluids. #11 leukocytosis: We'll monitor. Infectious disease following. Continue IV antibiotics. #12 hypomagnesium patient received magnesium supplement. Repeat magnesium level Await further recommendations per infectious disease. Patient will require ECF placement at discharge. Continue to monitor WBCs I performed an examination of the patient and discussed their management with the physician Mortgage Analyst. I have reviewed the Physician Mortgage Analyst's notes and agree with the documented findings and plan of care
[2018-03-07] MEDS: MULTIVITAMINS, THERA 1 EACH TAB PO SCH (12:18)
[2018-03-07] MEDS ORDERED: ALBUMIN HUMAN 25% 50 ML in EMPTY BAG 1 BAG IVPB ONE (12:22)
[2018-03-07] MEDS ORDERED: FUROSEMIDE 10 MG/ML 2 ML VIAL IV ONE (12:24)
--- NOTE | 2018-03-07 13:11 | P.PN ---
Subjective Progress Note Date: 03/07/18 Principal diagnosis: Left knee pyogenic arthritis, upper GI bleeding, alcohol withdrawal Reevaluated on 03/04/2018, patient is status post stage I revision of left knee arthroplasty with removal of hardware, and placement of an antibiotic spacer. Postoperative day #3. While inpatient, the patient developed upper GI bleeding , underwent EGD, postoperative day #1, and he was found to have mostly evidence of reflux esophagitis. Patient required a total of 3 units of packed RBCs which were transfused, and 2 units of fresh frozen plasma. Hemoglobin today is 8.4. Considering his recent history of deep vein thromboses and pulmonary embolism, and supposedly he had massive pulmonary emboli, patient could not be placed on anticoagulation therapy at this point because of the GI bleeding, and his anticoagulation therapy is presently on hold, I did recommend vascular surgery evaluation, and IVC filter placement. This is supposed to take place today. Over the last 24 hours, the patient seems to be a bit better, no active bleeding is noted, his nasogastric tube has been removed. Continues to have some black stools. Remains on alcohol withdrawal protocol with seems to be working well, not requiring much sedation over the last 12 hours. Electrolytes are normal BUN however is 32 creatinine is 1.65. His baseline creatinine on admission was 0.71, however over the last 2 days that has been significantly elevated creatinine, and that is felt to be acute kidney injury secondary to hypotension, acute tubular necrosis. When patient was transferred to the ICU, he was noted to have systolic blood pressure in the 70s. Responded to fluids and blood transfusion. Reevaluated today on 03/06/2018, patient is now postoperative day #5. He had revision left knee arthroplasty with removal of hardware, and placement of antibiotic spacer, patient had MRSA septic arthritis. Remains on antibiotics as per infectious disease on the case. While inpatient, the patient developed upper GI bleeding and he was found to have reflux esophagitis on EGD. Patient was admitted to the ICU for a brief period of time basically overnight, and he was treated for hypotension and symptoms of alcohol withdrawal. Today the patient is doing better, remains a bit anxious, remains on multiple meds, he had a inferior vena cava filter placed because of his absolute contraindication to anticoagulation therapy, and he had a recent DVT and pulmonary embolism/ massive. Today the patient denies shortness of breath, no cough, no wheezing, no nausea, no vomiting, no abdominal pain. Continues to have left knee pain. On 03/07/2018 patient seen in follow-up on selective care unit. He is awake and alert, although seems to be confused. In no acute distress, afebrile, left knee fluid culture was positive for MRSA. Blood cultures were negative. Patient is on vancomycin. Vital signs remain stable, lung sounds are clear to auscultation. Patient is incontinent of urine and stool. No further GI bleeding, today's hemoglobin is 9.3 Objective - Vital Signs Vital signs: Vital Signs Temp 97.8 F 03/07/18 07:00 Pulse 84 03/07/18 07:00 Resp 16 03/07/18 07:00 BP 117/81 03/07/18 07:00 Pulse Ox 99 03/07/18 07:00 Intake & Output 03/06/18 03/07/18 03/07/18 18:59 06:59 18:59 Intake Total 240 Balance 240 Intake: Oral 240 Other: Voiding Method Diaper Urinal Diaper # Voids 1 # Bowel Movements 1 - Exam General appearance: Revealed a 58-year-old white male, awake and alert, confused HET: Head is normocephalic and atraumatic. PERRLA, EOMI, no icterus, Neck: Short obese neck, no neck masses, no JVD, no stridor.. Heart: Distant S1 S2. Regular rate and rhythm, no murmur. Lungs: Good breath sound bilaterally, no crackles or rhonchi or wheezes. Abdomen: Obese, soft, nontender, no megaly, no rebound, no guarding, positive bowel sounds. Extremities: No clubbing edema or cyanosis, good pulses bilaterally, no rashes. Right knee is wrapped with sterile dressing, seems to be swollen, tender to palpation. Neurological: Alert oriented 3, no gross focal neurologic deficit Lymphatics: No lymphadenopathy Psychiatric: Blunted affect, intermittently confused, anxious, - Labs CBC & Chem 7: 03/07/18 10:21 03/07/18 10:21 Labs: Abnormal Lab Results - Last 24 Hours (Table) 03/06/18 03/06/18 03/07/18 Range/Units 16:30 16:30 10:21 WBC 12.8 H (3.8-10.6) k/uL RBC 2.47 L 3.01 L (4.30-5.90) m/uL Hgb 7.4 L 9.3 L D (13.0-17.5) gm/dL Hct 24.1 L 30.0 L (39.0-53.0) % MCHC 30.6 L 30.9 L (31.0-37.0) g/dL RDW 18.4 H 18.1 H (11.5-15.5) % Plt Count 468 H 565 H (150-450) k/uL Neutrophils # 7.8 H 10.3 H (1.3-7.7) k/uL Chloride 113 H (98-107) mmol/L Carbon Dioxide (22-30) mmol/L Creatinine 1.46 H (0.66-1.25) mg/dL Calcium 8.1 L (8.4-10.2) mg/dL AST 14 L (17-59) U/L ALT 15 L (21-72) U/L Total Protein 4.1 L (6.3-8.2) g/dL Albumin 1.8 L (3.5-5.0) g/dL 03/07/18 Range/Units 10:21 WBC (3.8-10.6) k/uL RBC (4.30-5.90) m/uL Hgb (13.0-17.5) gm/dL Hct (39.0-53.0) % MCHC (31.0-37.0) g/dL RDW (11.5-15.5) % Plt Count (150-450) k/uL Neutrophils # (1.3-7.7) k/uL Chloride 113 H (98-107) mmol/L Carbon Dioxide 21 L (22-30) mmol/L Creatinine 1.43 H (0.66-1.25) mg/dL Calcium 8.2 L (8.4-10.2) mg/dL AST 16 L (17-59) U/L ALT 11 L (21-72) U/L Total Protein 4.7 L (6.3-8.2) g/dL Albumin 2.1 L (3.5-5.0) g/dL Microbiology - Last 24 Hours (Table) 03/04/18 20:38 Blood Culture - Preliminary Blood No Growth after 48 hours Assessment and Plan Plan: Assessment: 1 acute upper GI bleeding, secondary to reflux esophagitis. 2 acute septic left knee joint,/pyogenic arthritis, recent left arthroplasty patient is status post revision and removal of hardware. Placement of antibiotic spacer. This is secondary to MRSA. 3 acute sepsis and septic knee joint. With hypotension could also be related to his GI blood loss. 5 history of massive pulmonary embolism requiring thrombectomy/embolectomy done recently at [facility]. Patient has been on Xarelto which is now on hold, patient will require IVC filter placement. 6 alcohol dependence and alcoholism, patient is high risk for alcohol withdrawal hence he is now on the CIWA protocol. 7 status post IVC filter placement. 8 multiple comorbidities including osteoarthritis, seizure disorder, chronic hypoxic respiratory failure and underlying COPD which is presently inactive, chronic smoker, history of recurrent episodes of alcohol withdrawal, history of rib fractures related to falls, history of incarcerated right inguinal hernia Plan: Continue same antibiotic coverage, he is hemodynamically stable, afebrile, no episodes of hematemesis, melena or hematochezia. No active critical care issues at this time. No shortness of breath, no chest pain. We will continue with the patient on as-needed basis. I performed a history & physical examination of the patient and discussed their management with my nurse practitioner, Yennifer Irby. I reviewed the nurse practitioner's note and agree with the documented findings and plan of care. Lung sounds are clear. The findings and the impression was discussed with the patient. I attest to the documentation by the nurse practitioner. Time with Patient: Less than 30
[2018-03-07] MEDS ORDERED: MAGNESIUM SULFATE-D5W PMX 1 GM in DEXTROSE/WATER 1 100ML.BAG IVPB ONE (14:00)
[2018-03-07 16:12] LABS: Calcium 8.3 mg/dL (8.4-10.2)
[2018-03-07 16:14] LABS: Potassium 3.7 mmol/L (3.5-5.1)
[2018-03-07] MEDS: THIAMINE 100 MG TAB PO SCH (20:59)
[2018-03-07] MEDS: SENNOSIDES-DOCUSATE SODIUM 1 EACH TAB PO SCH (21:04)
[2018-03-08] MEDS: HYDROcodone/APAP 10-325MG 1 EACH TAB PO PRN ×3 (05:19→17:51)
[2018-03-08] MEDS: LORazepam 0.5 MG TAB PO PRN ×2 (07:56→19:36)
[2018-03-08] MEDS: FOLIC ACID 1 MG TAB PO SCH (07:56)
[2018-03-08] MEDS: MULTIVITAMINS, THERA 1 EACH TAB PO SCH (07:56)
[2018-03-08] MEDS: FERROUS SULFATE 325 MG TAB PO SCH ×2 (07:56→20:35)
[2018-03-08] MEDS: PANTOPRAZOLE 40 MG/10 ML VIAL IVP SCH (07:56)
[2018-03-08] MEDS: METOPROLOL SUCCINATE (ER) 25 MG TAB.ER.24H PO SCH (07:56)
[2018-03-08] MEDS: VANCOMYCIN 1,250 MG in SODIUM CHLORIDE 0.9% 250 ML IVPB SCH (07:59)
[2018-03-08] MEDS ORDERED: LIDOCAINE 1% INJ 10MG/ML (10 ML MDV) SQ ONE (09:33)
--- NOTE | 2018-03-08 11:48 | IR ---
PICC LINE PLACEMENT: HISTORY: Infection requiring long-term antibiotic therapy PROCEDURE: Ultrasound and fluoroscopic guidance of PICC line placement. COMPLICATIONS: None ANESTHESIA: 1. 1% Lidocaine locally. FINDINGS/TECHNIQUE: The procedure was explained to the patient. The risks, complications, benefits and alternatives were discussed and any questions were answered. Informed consent was obtained. The patient was placed supine on the fluoroscopic table and prepped and draped in the usual sterile [facility]. Utilizing a 21 gauge needle and sonographic and fluoroscopic guidance, access in the vein was achieved and there is placement of a 0.018 guidewire. The vein is patent. A 4-F sheath was placed o ana the guidewire. The guidewire and dilator were removed and a 4-F. PICC line was placed through th e sheath with the tip at the level of the SVC. The sheath was removed, the catheter was flushed and sutured into position. The patient was stable throughout the procedure and remained stable upon disc harge from the Department of Radiology. The vein puncture was patent under ultrasound. A chambers scale image was obtained to document patency of the vein punctured. All elements of the maximal barrier technique were utilized. FLUOROSCOPY TIME: 0.2 minutes and one image submitted IMPRESSION: Successful PICC line placement under ultrasound and fluoroscopic guidance.
[2018-03-08 12:06] LABS: Anisocytosis Slight; Basophils # (A) 0.1 k/uL (0-0.2); Basophils % (A) 1 %; Eosinophils # (A) 0.3 k/uL (0-0.7); Eosinophils % (A) 2 %; HCT 24.7 % (39.0-53.0); HGB 7.4 gm/dL (13.0-17.5); Hypochromasia Moderate; Lymphocytes # (A) 1.5 k/uL (1.0-4.8); Lymphocytes % (A) 11 %; MCH 29.4 pg (25.0-35.0); MCHC 30.1 g/dL (31.0-37.0); Macrocytosis Slight; Mean Platelet Volume 6.8; Monocytes # (A) 0.6 k/uL (0-1.0); Monocytes % (A) 4 %; Neutrophils # (A) 10.6 k/uL (1.3-7.7); Neutrophils % (A) 80 %; Platelet Count 642 k/uL (150-450); RBC 2.53 m/uL (4.30-5.90); RDW 17.9 % (11.5-15.5); WBC 13.3 k/uL (3.8-10.6)
[2018-03-08 12:09] LABS: MCV 97.5 fL (80.0-100.0)
--- NOTE | 2018-03-08 12:10 | P.DS ---
Providers Date of admission: 02/25/18 16:29 Expected date of discharge: 03/08/18 Attending physician: Aravind Laird Consults: 02/25/18 13:47 Consult Physician Stat Consulting Provider: Tejas Ren Consult Reason/Comments: septic total knee arthroplasty Do you want consulting provider notified?: Yes 02/25/18 13:57 Consult Physician Stat Consulting Provider: Benita Holland Consult Reason/Comments: CIWA protocol, medical management, pre op clearance Do you want consulting provider notified?: Yes 03/03/18 04:25 Consult Physician Routine Consulting Provider: Garfield Flynn Consult Reason/Comments: ICU Quality Engineer Medical Device Do you want consulting provider notified?: Yes 03/03/18 06:17 Consult Physician Stat Consulting Provider: Sue Doss Consult Reason/Comments: Urine output Do you want consulting provider notified?: Yes 03/03/18 12:42 Consult Physician Routine Consulting Provider: Jeffery Martinez Consult Reason/Comments: history of PE, filter placement Do you want consulting provider notified?: Yes 03/03/18 13:19 Consult Physician Stat Consulting Provider: Jeffery Martinez Consult Reason/Comments: ivc filter placement Do you want consulting provider notified?: Yes Primary care physician: Stated None - Discharge Diagnosis(es) (1) History of total knee arthroplasty Current Visit: Yes Status: Acute (2) Alcoholism Current Visit: Yes Status: Acute (3) MRSA infection Current Visit: Yes Status: Acute (4) Septic arthritis of knee, left Current Visit: Yes Status: Acute (5) Acute blood loss anemia Current Visit: Yes Status: Acute (6) Acute upper GI bleed Current Visit: Yes Status: Acute (7) Coffee ground emesis Current Visit: Yes Status: Acute (8) EtOH dependence Current Visit: Yes Status: Acute (9) History of pulmonary embolism Current Visit: Yes Status: Acute (10) Coagulopathy Current Visit: Yes Status: Acute Hospital Course: This is a 58-year-old male who is admitted for stage I revision left total knee arthroplasty with removal of components and placement of an antibiotic spacer. On presentation the patient was found to have swelling and pain of the left knee. An aspiration of the left knee revealed MRSA. After discussion and consideration patient elects to proceed with stage I revision left total knee arthroplasty with removal of components and placement of antibiotic spacer. The patient is seen preoperatively by Dr. Laird and medically cleared for surgery by internal medicine. Patient is admitted to [facility] on 09/2017 and stage I revision left total knee arthroplasty with removal of components and placement of antibiotic spacer is performed on 03/01/2018. During the course of his hospital stay, the patient developed a GI bleed on postoperative day #1 and underwent EGD. Due to patient's history of pulmonary embolism and DVT a Dupree filter was placed as his Xarelto was discontinued due to GI bleed. Patient also underwent placement of a PICC line for IV antibiotics per infectious disease. Labs and vital signs are stable on day of discharge. Cultures are positive for MRSA. On day of discharge patient's knee incision is healing well. There is minimal erythema. There is no drainage noted at this time. There is minimal soft tissue swelling to the knee. Patient has full foot and ankle motion without difficulty or pain. Calf is soft and nontender to palpation. Neurovascular status to the left lower extremity is intact. Patient is discharged to rehab in good condition. Please see med rec for accurate list of home medications. Plan - Discharge Summary Discharge Rx Participant: Yes New Discharge Prescriptions: New HYDROcodone/APAP 5-325MG [[place] 5-325] 1 - 2 tab PO Q4-6H PRN #84 tab PRN Reason: Pain Sennosides [Senokot] 1 tab PO BID #60 tablet No Action busPIRone HCl [Buspar] 10 mg PO BID PRN PRN Reason: Anxiety Albuterol Nebulized [Ventolin Nebulized] 2.5 mg INHALATION RT-Q4H Magnesium 400 mg PO BID Omeprazole 20 mg PO DAILY Thiamine HCl [Vitamin B-1] 100 mg PO HS Folic Acid 1 mg PO DAILY Ondansetron [Zofran] 4 mg PO TID PRN PRN Reason: Nausea And Vomiting QUEtiapine FUMARATE 100 mg PO HS Rivaroxaban [Xarelto] 20 mg PO DAILY Potassium Chloride [Klor-Con 20] 20 meq PO BID LORazepam [Ativan] 0.5 mg PO Q8HR PRN #9 tab PRN Reason: Anxiety Metoprolol Succinate [Toprol XL] 25 mg PO DAILY #30 tab HYDROcodone/APAP 7.5-325MG [[place] 7.5-325] 1 tab PO Q4-6H PRN PRN Reason: Pain Multivitamins, Thera [Multivitamin (formulary)] 1 tab PO DAILY@1200 Discharge Medication List busPIRone HCl [Buspar] 10 mg PO BID PRN 12/01/17 [History] Albuterol Nebulized [Ventolin Nebulized] 2.5 mg INHALATION RT-Q4H 01/28/18 [ History] Magnesium 400 mg PO BID 01/28/18 [History] Omeprazole 20 mg PO DAILY 01/28/18 [History] Thiamine HCl [Vitamin B-1] 100 mg PO HS 01/28/18 [History] Folic Acid 1 mg PO DAILY 02/16/18 [History] Ondansetron [Zofran] 4 mg PO TID PRN 02/16/18 [History] QUEtiapine FUMARATE 100 mg PO HS 02/16/18 [History] Rivaroxaban [Xarelto] 20 mg PO DAILY 02/16/18 [History] Potassium Chloride [Klor-Con 20] 20 meq PO BID 02/17/18 [History] LORazepam [Ativan] 0.5 mg PO Q8HR PRN #9 tab 02/18/18 [Rx] Metoprolol Succinate [Toprol XL] 25 mg PO DAILY #30 tab 02/18/18 [Rx] HYDROcodone/APAP 7.5-325MG [[place] 7.5-325] 1 tab PO Q4-6H PRN 02/25/18 [History] Multivitamins, Thera [Multivitamin (formulary)] 1 tab PO DAILY@1200 02/25/18 [ History] HYDROcodone/APAP 5-325MG [[place] 5-325] 1 - 2 tab PO Q4-6H PRN #84 tab 03/08/18 [ Rx] Sennosides [Senokot] 1 tab PO BID #60 tablet 03/08/18 [Rx] Follow up Appointment(s)/Referral(s): Ascencion Mak MD [STAFF PHYSICIAN] - 1 Week (Patient to call office wednesday to make an apt) Aravind Laird MD [STAFF PHYSICIAN] - 10 Days Activity/Diet/Wound Care/Special Instructions: Weightbearing as tolerated with a walker. Daily dressing changes, keep incision clean and dry. May shower if no drainage from incision. IV antibiotics per infectious disease. Please call [facility] with questions or concerns, [phone]. Discharge Disposition: TRANSFER TO SNF/ECF
[2018-03-08 12:28] LABS: Calcium 7.7 mg/dL (8.4-10.2); Potassium 3.2 mmol/L (3.5-5.1)
[2018-03-08] MEDS ORDERED: POTASSIUM CHLORIDE ER 20 MEQ TAB.ER PO STA (12:33)
--- NOTE | 2018-03-08 13:22 | P.PN ---
Subjective Patient is seen in follow-up for acute kidney injury. Renal function is stable with creatinine at 1.45 today. Admits to good urine output. No vomiting or diarrhea. Patient recently had an antibiotic spacer placed for left knee infection. He also had a Juan M filter placed this admission. He is maintained on IV vancomycin. Vancomycin level was high at 30.8 on March 01 and was down to 21.7 on March 05. Vital signs are stable. General: The patient appeared well nourished and normally developed. HEENT: Head exam is unremarkable. Neck is without jugular venous distension. LUNGS: Lungs are clear to auscultation and percussion. Breath sounds decreased. HEART: Rate and Rhythm are regular. First and second heart sounds normal. No murmurs, rubs or gallops. ABDOMEN: Abdominal exam reveals normal bowel sounds. Non-tender and non- distended. No evidence of peritonitis. EXTREMITITES: No clubbing, cyanosis, or edema. Objective - Vital Signs Vital signs: Vital Signs Temp 98.7 F 03/08/18 08:00 Pulse 89 03/08/18 08:00 Resp 18 03/08/18 08:00 BP 134/77 03/08/18 08:00 Pulse Ox 100 03/08/18 08:00 Intake & Output 03/07/18 03/08/18 03/08/18 18:59 06:59 18:59 Intake Total 640 900 Output Total 400 Balance 240 900 Weight 83.9 kg Intake: IV 400 Sodium Chloride 0.9% 1, 400 000 ml @ 50 mls/hr IV . Q20H [facility] Rx#:[id number] Intake, IV Titration 400 Amount Albumin Human 25% 50 ml 50 In Empty Bag 1 bag @ 100 mls/hr IVPB ONCE ONE Rx#: [id number] Magnesium Sulfate-D5w Pmx 100 1 gm In Dextrose/Water 1 100ml.bag @ 100 mls/hr IVPB ONCE ONE Rx#: [id number] Vancomycin 1,250 mg In 250 Sodium Chloride 0.9% 250 ml @ 125 mls/hr IVPB Q24HR [facility] Rx#:[id number] Oral 240 500 Output: Urine 400 Other: Voiding Method Urinal Urinal Urinal Diaper Diaper Diaper # Voids 3 # Bowel Movements 1 - Labs CBC & Chem 7: 03/08/18 11:50 03/08/18 11:50 Labs: Abnormal Lab Results - Last 24 Hours (Table) 03/07/18 03/08/18 03/08/18 Range/Units 15:34 08:01 11:50 WBC (3.8-10.6) k/uL RBC (4.30-5.90) m/uL Hgb (13.0-17.5) gm/dL Hct (39.0-53.0) % MCHC (31.0-37.0) g/dL RDW (11.5-15.5) % Plt Count (150-450) k/uL Neutrophils # (1.3-7.7) k/uL Potassium 3.2 L (3.5-5.1) mmol/L Chloride 111 H 109 H (98-107) mmol/L Creatinine 1.40 H 1.45 H (0.66-1.25) mg/dL Calcium 8.3 L 7.7 L (8.4-10.2) mg/dL Magnesium 1.4 L (1.6-2.3) mg/dL 03/08/18 Range/Units 11:50 WBC 13.3 H (3.8-10.6) k/uL RBC 2.53 L (4.30-5.90) m/uL Hgb 7.4 L D (13.0-17.5) gm/dL Hct 24.7 L (39.0-53.0) % MCHC 30.1 L (31.0-37.0) g/dL RDW 17.9 H (11.5-15.5) % Plt Count 642 H (150-450) k/uL Neutrophils # 10.6 H (1.3-7.7) k/uL Potassium (3.5-5.1) mmol/L Chloride (98-107) mmol/L Creatinine (0.66-1.25) mg/dL Calcium (8.4-10.2) mg/dL Magnesium (1.6-2.3) mg/dL Microbiology - Last 24 Hours (Table) 03/04/18 20:38 Blood Culture - Preliminary Blood No Growth after 72 hours Assessment and Plan Plan: Assessment: 1. Nonoliguric acute kidney injury secondary to ATN secondary to hypotension and vancomycin toxicity. Creatinine stable at 1.45 today. 2. Septic arthritis of the left knee maintained on IV antibiotics. Culture positive for MRSA. Status post placement of antibiotic spacer. 3. History of DVT status post Juan M filter placement this admission. 4. Hypokalemia secondary to hypomagnesemia. 5. Hypomagnesemia currently being replaced. Protonix will also lead to hypomagnesemia by impairing its absorption. 6. Acute GI bleed status post blood transfusion. Maintain on Protonix. Plan: Replace potassium. 60 mg yesterday. Replace magnesium. 2 g IV today. Maintain normal saline at 50 mL an hour until discharge. Consider alternative to vancomycin due to impaired renal function. If he does continue with vancomycin, level will need to be monitored closely and dose will need to be adjusted for renal function.
[2018-03-08] MEDS ORDERED: ALBUMIN HUMAN 25% 50 ML in EMPTY BAG 1 BAG IVPB ONE (13:30)
[2018-03-08] MEDS ORDERED: FUROSEMIDE 10 MG/ML 2 ML VIAL IV ONE (14:00)
[2018-03-08] MEDS ORDERED: SODIUM FERRIC GLUCONAT-SUCROSE 125 MG in SODIUM CHLORIDE 0.9% 100 ML IVPB ONE (14:00)
--- NOTE | 2018-03-08 14:08 | P.PN ---
Subjective Progress Note Date: 03/08/18 Addy Villalpando, is a 58 year old male who presented to the Orthopedic Surgery office for recheck of his left knee. He is status post left total knee arthroplasty, 4 months ago . Patient was complaining of of increased pain and swelling in the left knee. Patient had multiple hospitalizations for alcohol withdrawal as well as pulmonary embolism recently. Patient was complaining of pain and swelling in the left knee.He is having difficulty with weight bearing on the left knee secondary to pain. He did have a vague history of a remote fall which he did not seeks treatment for. He was evaluated by orthopedic surgery and was admitted directly to [facility], he was started on IV antibiotic vancomycin, and is scheduled for surgery on the left knee on Wednesday. On 02/27/2018 patient was seen and examined, he is alert and oriented 3 in no apparent distress sitting at the edge of his bed there is no fever or chills no headache or dizziness no chest pain no shortness of breath no cough no nausea or vomiting no abdominal pain no diarrhea and no urinary symptoms ane in the knee is well-controlled at this time. 02/28/2018 patient still requiring the IV Ativan for withdrawal-like symptoms. Patient is easily agitated. Reports that he does not need to be here in the hospital. That he wants to leave right away. Patient has been receiving the IV Ativan. Aspiration culture of the left knee completed on 02/25/2018 shows presumptive MRSA. He is currently on IV vancomycin. Orthopedics are planning an I&D on Wednesday with antibiotic spacer. 03/01/2018 patient is scheduled for surgery today for an I&D. He did require 1 dose of IV Ativan yesterday. Nursing staff gave Vistaril this morning for his anxiety. He is no longer having tachycardia. Hemoglobin 9.5 iron low at 47. He'll be started on ferrous sulfate 325 mg twice a day. Denies any chest pain or shortness breath. Denies any nausea or vomiting. Denies any bowel movement changes or urinary symptoms On 03/02/2018 patient is status post I&D postop day 1. Patient is currently resting comfortably in bed. Patient did require 3 doses of Ativan throughout night due to withdrawal. This time patient denies chest pain or shortness breath. Patient denies nausea vomiting or diarrhea. Patient denies any urinary burning or frequency 03/03/2018 patient required a transfer to the ICU due to upper GI bleed. Patient had coffee-ground emesis. NG tube was inserted. Hemoglobin down to 6.6 INR 1.7 she is on IV Sandostatin. GI is following and patient is scheduled for EGD. He is also receiving blood transfusion and FFP. Nephrology is also following the patient. She is having low-grade temps 100.4 this morning. White count is up to 14.4 and he is still tachycardic and blood pressure 85/52. 03/04/2018 patient status post EGD showing linear erosions or ulcerations in the mid and distal esophagus consistent with LA grade D reflux esophagitis and also a moderate size hiatal hernia. He continues on IV Protonix. NG tube was removed no further episodes of vomiting. Any scheduled to be transferred out of the ICU today. Was seen by vascular surgery he is scheduled for Juan M filter placement due to his history of PE and DVT. He can no longer take the Xarelto due to his severe GI bleed. Blood pressures are showing improvement after IV fluids. Patient also received a total of 3 units of RBCs and 2 units of FFP On 03/05/2018 patient is alert and oriented 3 in no apparent distress, he is complaining of knee pain and abdominal discomfort otherwise no complaints at this time no new episodes of nausea or vomiting hemoglobin today is down at 7.6 creatinine is stable at 1.65 On 03/06/2018 patient is feeling better alert and oriented 3 lying comfortably in bed denies any pain or discomfort denies any shortness of breath labs are still pending today 03/07/2018 patient lying in bed comfortably. Status post [place] filter on Wednesday. No further episodes of vomiting. Hemoglobin is up to 9.3. Patient has had increase in his white count to 12.8, platelets elevated at 565. He has no new complaints. Awaiting on infectious disease discharge antibiotic recommendations. Patient will require ECF placement. Patient denies any chest pain or shortness of breath. Denies any nausea or vomiting. Denies any bowel movement changes or urinary symptoms. 03/08/2018 patient has PICC line in place in the right arm. Orthopedics have cleared him for discharge. He is to go to [facility] for rehab. Patient still having scrotal edema did note some improvement after Lasix and albumin. Patient denies any chest pain or shortness of breath. Denies any nausea vomiting. Has been having bowel movements. Denies any burning with urination. Hemoglobin has dropped from 9.3-7.4. White count is up to 13.3. Platelets 642. We'll hold discharge for now and give IV Lasix with albumin to help with the scrotal edema. He likely will require another dose of these medications tomorrow. Also will give IV iron for his hemoglobin of 7.4 Objective - Vital Signs Vital signs: Vital Signs Temp 98.7 F 03/08/18 08:00 Pulse 89 03/08/18 08:00 Resp 18 03/08/18 08:00 BP 134/77 03/08/18 08:00 Pulse Ox 100 03/08/18 08:00 Intake & Output 03/07/18 03/08/18 03/08/18 18:59 06:59 18:59 Intake Total 640 900 Output Total 400 Balance 240 900 Weight 83.9 kg Intake: IV 400 Sodium Chloride 0.9% 1, 400 000 ml @ 50 mls/hr IV . Q20H [facility] Rx#:[id number] Intake, IV Titration 400 Amount Albumin Human 25% 50 ml 50 In Empty Bag 1 bag @ 100 mls/hr IVPB ONCE ONE Rx#: [id number] Magnesium Sulfate-D5w Pmx 100 1 gm In Dextrose/Water 1 100ml.bag @ 100 mls/hr IVPB ONCE ONE Rx#: [id number] Vancomycin 1,250 mg In 250 Sodium Chloride 0.9% 250 ml @ 125 mls/hr IVPB Q24HR [facility] Rx#:[id number] Oral 240 500 Output: Urine 400 Other: Voiding Method Urinal Urinal Urinal Diaper Diaper Diaper # Voids 3 # Bowel Movements 1 - Exam Head normocephalic Neck supple Lungs clear to auscultation bilaterally no wheezing or crackles Heart regular rate and rhythm S1-S2, no rub or gallop Abdomen is soft nontender nondistended positive bowel sounds no hepatosplenomegaly Extremities right knee dressing clean dry and intact. +1 edema bilateral lower extremities. Scrotal edema present Neuro awake and alert answering questions - Labs CBC & Chem 7: 03/08/18 11:50 03/08/18 11:50 Labs: Abnormal Lab Results - Last 24 Hours (Table) 10/03/08/18 03/08/18 Range/Units 15:34 08:01 11:50 WBC (3.8-10.6) k/uL RBC (4.30-5.90) m/uL Hgb (13.0-17.5) gm/dL Hct (39.0-53.0) % MCHC (31.0-37.0) g/dL RDW (11.5-15.5) % Plt Count (150-450) k/uL Neutrophils # (1.3-7.7) k/uL Potassium 3.2 L (3.5-5.1) mmol/L Chloride 111 H 109 H (98-107) mmol/L Creatinine 1.40 H 1.45 H (0.66-1.25) mg/dL Calcium 8.3 L 7.7 L (8.4-10.2) mg/dL Magnesium 1.4 L (1.6-2.3) mg/dL 03/08/18 Range/Units 11:50 WBC 13.3 H (3.8-10.6) k/uL RBC 2.53 L (4.30-5.90) m/uL Hgb 7.4 L D (13.0-17.5) gm/dL Hct 24.7 L (39.0-53.0) % MCHC 30.1 L (31.0-37.0) g/dL RDW 17.9 H (11.5-15.5) % Plt Count 642 H (150-450) k/uL Neutrophils # 10.6 H (1.3-7.7) k/uL Potassium (3.5-5.1) mmol/L Chloride (98-107) mmol/L Creatinine (0.66-1.25) mg/dL Calcium (8.4-10.2) mg/dL Magnesium (1.6-2.3) mg/dL Microbiology - Last 24 Hours (Table) 03/04/18 20:38 Blood Culture - Preliminary Blood No Growth after 72 hours Assessment and Plan Assessment: #1 septic arthritis of the left knee: Aspiration culture from 02/25/2018 growing presumptive MRSA. Patient remains on IV vancomycin. Culture from aspiration growing MRSA. Status post stage I revision left total knee arthroplasty with removal of components and placement of antibiotic articulating spacer. Discussed with Dr. Ren yesterday he is recommending vancomycin pharmacy to dose to be continued 42 days from surgical date. PICC line is now in place. Also, discussed with Dr. Ren regarding patient's kidney function and the vancomycin. At this time he wants to continue with vancomycin and will monitor closely and have pharmacy to dose for renal #2 recent history of pulmonary embolism and DVT. Status post [place] filter placement. Patient no longer a candidate for anticoagulation. Xarelto discontinued #3 alcohol dependence with evidence of delirium tremens. Continue the CIWA protocol with Ativan and multivitamin, thiamine and folic acid #4 iron Deficiency anemia: ferrous sulfate 325 mg twice a day. #5 severe protein calorie malnutrition present on admission. Add ensure #6 acute GI bleed with coffee-ground emesis causing acute blood loss anemia. Secondary to linear erosions or ulcerations in the mid distal esophagus consistent with reflux esophagitis. Continue Protonix. Hemoglobin has dropped to 7.4 with no active signs of bleeding. He has known iron deficiency anemia. Will give a dose of IV iron #7 coagulopathy #8 hyperkalemia likely related to acute kidney injury. Resolved #9 acute kidney injury creatinine 1.45. Followed closely by nephrology. Continue with IV fluids #10 hypotension Secondary to GI bleed. Improved with IV fluids. #11 leukocytosis: We'll monitor. Infectious disease following. Continue IV antibiotics. #12 hypomagnesium on give magnesium supplement of 2 g the. Repeat magnesium in a.m. #13 scrotal edema due to severe protein calorie malnutrition patient received IV albumin and Lasix yesterday. Scrotal edema still present #14 hypokalemia: Patient given potassium 60 mEq 1 per nephrology. Follow up on potassium level in a.m. Patient is not medically stable for discharge yet. Patient will receive IV Lasix with IV albumin due to the scrotal edema. Also will give a dose of IV iron for his anemia. Anticipating discharge closer to to [facility] I performed an examination of the patient and discussed their management with the physician [place]. I have reviewed the Physician [place]'s notes and agree with the documented findings and plan of care
[2018-03-08] MEDS: MAGNESIUM SULFATE-D5W PMX 1 GM in DEXTROSE/WATER 1 100ML.BAG IVPB SCH ×2 (16:26→17:52)
[2018-03-08] MEDS: SODIUM CHLORIDE 0.9% 1,000 ML IV SCH ×2 (16:26→20:36)
[2018-03-08] MEDS: SENNOSIDES-DOCUSATE SODIUM 1 EACH TAB PO SCH (20:35)
[2018-03-08] MEDS: THIAMINE 100 MG TAB PO SCH (20:35)
[2018-03-08] MEDS: PANTOPRAZOLE 40 MG TABLET PO SCH (20:35)
[2018-03-08] MEDS: TEMAZEPAM 15 MG CAP PO PRN (22:38)
[2018-03-09] MEDS: HYDROcodone/APAP 10-325MG 1 EACH TAB PO PRN ×4 (01:27→20:29)
[2018-03-09] MEDS: ONDANSETRON 4 MG/2 ML VIAL IVP PRN (01:32)
[2018-03-09] MEDS ORDERED: VANCOMYCIN TROUGH DUE 1 EACH MISC MISCELLANE ONE (08:00)
[2018-03-09] MEDS: LORazepam 0.5 MG TAB PO PRN ×2 (08:30→22:00)
[2018-03-09] MEDS: FOLIC ACID 1 MG TAB PO SCH (08:30)
[2018-03-09] MEDS: FERROUS SULFATE 325 MG TAB PO SCH ×2 (08:30→20:29)
[2018-03-09] MEDS: PANTOPRAZOLE 40 MG TABLET PO SCH ×2 (08:30→20:29)
[2018-03-09] MEDS: METOPROLOL SUCCINATE (ER) 25 MG TAB.ER.24H PO SCH (08:30)
--- NOTE | 2018-03-09 08:37 | P.PN ---
Subjective Progress Note Date: 03/09/18 This is a 58-year-old male who is status post stage I revision left total knee arthroplasty with removal of components and placement of an antibiotic spacer. Patient reports pain with walking. Patient denies any new complaints today. Patient denies any fever/chills, numbness, weakness, tingling, abdominal pain, shortness of breath or chest pain. Objective - Vital Signs Vital signs: Vital Signs Temp 98.1 F 03/09/18 08:22 Pulse 88 03/09/18 08:22 Resp 18 03/09/18 08:22 BP 118/83 03/09/18 08:22 Pulse Ox 94 L 03/09/18 08:22 Intake & Output 03/08/18 03/09/18 03/09/18 18:59 06:59 18:59 Intake Total 490 980 Output Total 475 Balance 490 505 Weight 83.9 kg Intake: IV 400 Sodium Chloride 0.9% 1, 400 000 ml @ 50 mls/hr IV . Q20H [facility] Rx#:[id number] Intake, IV Titration 250 100 Amount Sodium Ferric Gluconat- 100 Sucrose 125 mg In Sodium Chloride 0.9% 100 ml @ 100 mls/hr IVPB ONCE ONE Rx#:[id number] Vancomycin 1,250 mg In 250 Sodium Chloride 0.9% 250 ml @ 125 mls/hr IVPB Q24HR [facility] Rx#:[id number] Oral 240 480 Output: Urine 475 Other: Voiding Method Urinal Urinal Urinal Diaper Diaper Diaper # Voids 5 # Bowel Movements 1 - Exam Patient is in no acute distress and patient is alert. Calf is soft and nontender to palpation. Dressing is clean, dry and intact. Patient has full foot and ankle motion without pain or difficulty. Neurovascular status and circulatory status are intact. - Labs CBC & Chem 7: 03/08/18 11:50 03/08/18 11:50 Labs: Abnormal Lab Results - Last 24 Hours (Table) 03/08/18 03/08/18 03/08/18 Range/Units 08:01 11:50 11:50 WBC 13.3 H (3.8-10.6) k/uL RBC 2.53 L (4.30-5.90) m/uL Hgb 7.4 L D (13.0-17.5) gm/dL Hct 24.7 L (39.0-53.0) % MCHC 30.1 L (31.0-37.0) g/dL RDW 17.9 H (11.5-15.5) % Plt Count 642 H (150-450) k/uL Neutrophils # 10.6 H (1.3-7.7) k/uL Potassium 3.2 L (3.5-5.1) mmol/L Chloride 109 H (98-107) mmol/L Creatinine 1.45 H (0.66-1.25) mg/dL Calcium 7.7 L (8.4-10.2) mg/dL Magnesium 1.4 L (1.6-2.3) mg/dL Microbiology - Last 24 Hours (Table) 03/04/18 20:38 Blood Culture - Preliminary Blood No Growth after 96 hours Assessment and Plan Assessment: Status post stage I revision left total knee arthroplasty with removal of components and placement of antibiotic spacer. History of pulmonary embolism. Alcohol dependence with delirium tremens. Iron deficiency anemia. (1) History of total knee arthroplasty Current Visit: Yes Status: Acute Code(s): Z96.659 - PRESENCE OF UNSPECIFIED ARTIFICIAL KNEE JOINT SNOMED Code(s): 8857692636441 (2) Alcoholism Current Visit: Yes Status: Acute Code(s): F10.20 - ALCOHOL DEPENDENCE, UNCOMPLICATED SNOMED Code(s): 0191579 (3) MRSA infection Current Visit: Yes Status: Acute Code(s): A49.02 - METHICILLIN RESIS STAPH INFECTION, UNSP SITE SNOMED Code(s): 850937936 (4) Septic arthritis of knee, left Current Visit: Yes Status: Acute Code(s): M00.9 - PYOGENIC ARTHRITIS, UNSPECIFIED SNOMED Code(s): 857182334 (5) Acute blood loss anemia Current Visit: Yes Status: Acute Code(s): D62 - ACUTE POSTHEMORRHAGIC ANEMIA SNOMED Code(s): 652741570 (6) Acute upper GI bleed Current Visit: Yes Status: Acute Code(s): K92.2 - GASTROINTESTINAL HEMORRHAGE, UNSPECIFIED SNOMED Code(s): 40688403 (7) Coffee ground emesis Current Visit: Yes Status: Acute Code(s): K92.0 - HEMATEMESIS SNOMED Code( s): 54018896 (8) EtOH dependence Current Visit: Yes Status: Acute Code(s): F10.20 - ALCOHOL DEPENDENCE, UNCOMPLICATED SNOMED Code(s): 31253664 (9) History of pulmonary embolism Current Visit: Yes Status: Acute Code(s): Z86.711 - PERSONAL HISTORY OF PULMONARY EMBOLISM SNOMED Code(s): 856328349 (10) Coagulopathy Current Visit: Yes Status: Acute Code(s): D68.9 - COAGULATION DEFECT, UNSPECIFIED SNOMED Code(s): 47892002 Plan: 1. Weightbearing as tolerated to the left lower extremity. 2. Daily dressing changes. 3. Cultures are positive for MRSA. IV antibiotics per infectious disease. 4. Appreciate input from internal medicine. 5. DVT prophylaxis with Xarelto is discontinued due to GI bleed during this admission. Patient is status post [place] filter placement. 6. Continue routine postoperative care and pain control. 7. Anticipate discharge to rehab when cleared medically.
[2018-03-09] MEDS ORDERED: VANCOMYCIN 1,250 MG in SODIUM CHLORIDE 0.9% 250 ML IVPB SCH (09:00)
[2018-03-09 09:09] LABS: Anisocytosis Slight; Basophils % (A) 1 %; Eosinophils # (A) 0.3 k/uL (0-0.7); Eosinophils % (A) 4 %; Hypochromasia Moderate; Lymphocytes % (A) 14 %; MCH 30.9 pg (25.0-35.0); MCV 96.4 fL (80.0-100.0); Macrocytosis Slight; Monocytes # (A) 0.4 k/uL (0-1.0); Monocytes % (A) 5 %; Neutrophils # (A) 5.7 k/uL (1.3-7.7); Neutrophils % (A) 76 %; RBC 1.74 m/uL (4.30-5.90); WBC 7.5 k/uL (3.8-10.6)
[2018-03-09 09:16] LABS: HGB 5.4 gm/dL (13.0-17.5)
[2018-03-09 09:17] LABS: HCT 16.8 % (39.0-53.0)
[2018-03-09 09:18] LABS: Platelet Count 70 k/uL (150-450)
[2018-03-09 10:19] LABS: Anisocytosis Slight; Basophils # (A) 0.1 k/uL (0-0.2); Basophils % (A) 1 %; Eosinophils # (A) 0.4 k/uL (0-0.7); Eosinophils % (A) 3 %; HCT 25.9 % (39.0-53.0); Hypochromasia Moderate; Lymphocytes # (A) 1.8 k/uL (1.0-4.8); Lymphocytes % (A) 12 %; MCH 30.6 pg (25.0-35.0); MCV 98.9 fL (80.0-100.0); Macrocytosis Slight; Mean Platelet Volume 6.7; Monocytes # (A) 0.8 k/uL (0-1.0); Monocytes % (A) 5 %; Neutrophils % (A) 78 %; RBC 2.62 m/uL (4.30-5.90); RDW 18.3 % (11.5-15.5); WBC 15.3 k/uL (3.8-10.6)
[2018-03-09 10:22] LABS: Platelet Count 752 k/uL (150-450)
[2018-03-09 10:47] LABS: Calcium 8.3 mg/dL (8.4-10.2); Magnesium 1.7 mg/dL (1.6-2.3); Potassium 4.5 mmol/L (3.5-5.1)
[2018-03-09] MEDS ORDERED: FUROSEMIDE 10 MG/ML 4 ML VIAL IV STA (10:57)
--- NOTE | 2018-03-09 11:00 | P.PN ---
Subjective Patient is seen in follow-up for acute kidney injury. Renal function is slightly worse with creatinine at 1.49 today. Admits to good urine output. No vomiting or diarrhea. Patient recently had an antibiotic spacer placed for left knee infection. He also had a Juan M filter placed this admission. He is maintained on IV vancomycin. Vancomycin level was high at 30.8 on March 01 and was down to 21.7 on March 05 and 22.9 this morning. He did receive albumin and Lasix yesterday. Swelling is improved. Vital signs are stable. General: The patient appeared well nourished and normally developed. HEENT: Head exam is unremarkable. Neck is without jugular venous distension. LUNGS: Lungs are clear to auscultation and percussion. Breath sounds decreased. HEART: Rate and Rhythm are regular. First and second heart sounds normal. No murmurs, rubs or gallops. ABDOMEN: Abdominal exam reveals normal bowel sounds. Non-tender and non- distended. No evidence of peritonitis. EXTREMITITES: 1+ edema. Scrotal edema noted. Objective - Vital Signs Vital signs: Vital Signs Temp 98.1 F 03/09/18 08:22 Pulse 88 03/09/18 08:22 Resp 18 03/09/18 08:22 BP 118/83 03/09/18 08:22 Pulse Ox 94 L 03/09/18 08:22 Intake & Output 03/08/18 03/09/18 03/09/18 18:59 06:59 18:59 Intake Total 490 980 Output Total 475 Balance 490 505 Weight 83.9 kg Intake: IV 400 Sodium Chloride 0.9% 1, 400 000 ml @ 50 mls/hr IV . Q20H [facility] Rx#:[id number] Intake, IV Titration 250 100 Amount Sodium Ferric Gluconat- 100 Sucrose 125 mg In Sodium Chloride 0.9% 100 ml @ 100 mls/hr IVPB ONCE ONE Rx#:[id number] Vancomycin 1,250 mg In 250 Sodium Chloride 0.9% 250 ml @ 125 mls/hr IVPB Q24HR [facility] Rx#:[id number] Oral 240 480 Output: Urine 475 Other: Voiding Method Urinal Urinal Urinal Diaper Diaper Diaper # Voids 5 # Bowel Movements 1 - Labs CBC & Chem 7: 03/09/18 09:53 03/09/18 07:55 Labs: Abnormal Lab Results - Last 24 Hours (Table) 03/08/18 03/08/18 03/08/18 Range/Units 08:01 11:50 11:50 WBC 13.3 H (3.8-10.6) k/uL RBC 2.53 L (4.30-5.90) m/uL Hgb 7.4 L D (13.0-17.5) gm/dL Hct 24.7 L (39.0-53.0) % MCHC 30.1 L (31.0-37.0) g/dL RDW 17.9 H (11.5-15.5) % Plt Count 642 H (150-450) k/uL Neutrophils # 10.6 H (1.3-7.7) k/uL Potassium 3.2 L (3.5-5.1) mmol/L Chloride 109 H (98-107) mmol/L Carbon Dioxide (22-30) mmol/L Creatinine 1.45 H (0.66-1.25) mg/dL Calcium 7.7 L (8.4-10.2) mg/dL Magnesium 1.4 L (1.6-2.3) mg/dL 03/09/18 03/09/18 03/09/18 Range/Units 07:55 07:55 09:53 WBC 15.3 H (3.8-10.6) k/uL RBC 1.74 L 2.62 L (4.30-5.90) m/uL Hgb 5.4 L* D 8.0 L D (13.0-17.5) gm/dL Hct 16.8 L* 25.9 L (39.0-53.0) % MCHC (31.0-37.0) g/dL RDW 18.0 H 18.3 H (11.5-15.5) % Plt Count 70 L D 752 H D (150-450) k/uL Neutrophils # 12.0 H (1.3-7.7) k/uL Potassium (3.5-5.1) mmol/L Chloride 114 H (98-107) mmol/L Carbon Dioxide 21 L (22-30) mmol/L Creatinine 1.49 H (0.66-1.25) mg/dL Calcium 8.3 L (8.4-10.2) mg/dL Magnesium (1.6-2.3) mg/dL Microbiology - Last 24 Hours (Table) 03/04/18 20:38 Blood Culture - Preliminary Blood No Growth after 96 hours Assessment and Plan Plan: Assessment: 1. Nonoliguric acute kidney injury secondary to ATN secondary to hypotension and vancomycin toxicity. Creatinine slightly worse at 1.49 today. 2. Septic arthritis of the left knee maintained on IV antibiotics. Culture positive for MRSA. Status post placement of antibiotic spacer. 3. History of DVT status post Juan M filter placement this admission. 4. Hypokalemia secondary to hypomagnesemia. Improved post replacement. 5. Hypomagnesemia currently being replaced. Protonix will also lead to hypomagnesemia by impairing its absorption. Improved post replacement. 6. Acute GI bleed status post blood transfusion. Maintained on Protonix. Hemoglobin 8.0 today. Hemoglobin 5.4 was a fingerstick. Plan: Hep-Lock IV fluids. Lasix 40 mg IV once today. Add Aranesp. I will hold off on IV iron due to infection. Consider alternative to vancomycin due to impaired renal function. If he does continue with vancomycin, level will need to be monitored closely and dose will need to be adjusted for renal function.
--- NOTE | 2018-03-09 11:15 | P.PN ---
Subjective Progress Note Date: 03/09/18 Addy Villalpando, is a 58 year old male who presented to the Orthopedic Surgery office for recheck of his left knee. He is status post left total knee arthroplasty, 4 months ago . Patient was complaining of of increased pain and swelling in the left knee. Patient had multiple hospitalizations for alcohol withdrawal as well as pulmonary embolism recently. Patient was complaining of pain and swelling in the left knee.He is having difficulty with weight bearing on the left knee secondary to pain. He did have a vague history of a remote fall which he did not seeks treatment for. He was evaluated by orthopedic surgery and was admitted directly to [facility], he was started on IV antibiotic vancomycin, and is scheduled for surgery on the left knee on Wednesday. On 02/27/2018 patient was seen and examined, he is alert and oriented 3 in no apparent distress sitting at the edge of his bed there is no fever or chills no headache or dizziness no chest pain no shortness of breath no cough no nausea or vomiting no abdominal pain no diarrhea and no urinary symptoms ane in the knee is well-controlled at this time. 02/28/2018 patient still requiring the IV Ativan for withdrawal-like symptoms. Patient is easily agitated. Reports that he does not need to be here in the hospital. That he wants to leave right away. Patient has been receiving the IV Ativan. Aspiration culture of the left knee completed on 02/25/2018 shows presumptive MRSA. He is currently on IV vancomycin. Orthopedics are planning an I&D on Wednesday with antibiotic spacer. 03/01/2018 patient is scheduled for surgery today for an I&D. He did require 1 dose of IV Ativan yesterday. Nursing staff gave Vistaril this morning for his anxiety. He is no longer having tachycardia. Hemoglobin 9.5 iron low at 47. He'll be started on ferrous sulfate 325 mg twice a day. Denies any chest pain or shortness breath. Denies any nausea or vomiting. Denies any bowel movement changes or urinary symptoms On 03/02/2018 patient is status post I&D postop day 1. Patient is currently resting comfortably in bed. Patient did require 3 doses of Ativan throughout night due to withdrawal. This time patient denies chest pain or shortness breath. Patient denies nausea vomiting or diarrhea. Patient denies any urinary burning or frequency 03/03/2018 patient required a transfer to the ICU due to upper GI bleed. Patient had coffee-ground emesis. NG tube was inserted. Hemoglobin down to 6.6 INR 1.7 she is on IV Sandostatin. GI is following and patient is scheduled for EGD. He is also receiving blood transfusion and FFP. Nephrology is also following the patient. She is having low-grade temps 100.4 this morning. White count is up to 14.4 and he is still tachycardic and blood pressure 85/52. 03/04/2018 patient status post EGD showing linear erosions or ulcerations in the mid and distal esophagus consistent with LA grade D reflux esophagitis and also a moderate size hiatal hernia. He continues on IV Protonix. NG tube was removed no further episodes of vomiting. Any scheduled to be transferred out of the ICU today. Was seen by vascular surgery he is scheduled for Juan M filter placement due to his history of PE and DVT. He can no longer take the Xarelto due to his severe GI bleed. Blood pressures are showing improvement after IV fluids. Patient also received a total of 3 units of RBCs and 2 units of FFP On 03/05/2018 patient is alert and oriented 3 in no apparent distress, he is complaining of knee pain and abdominal discomfort otherwise no complaints at this time no new episodes of nausea or vomiting hemoglobin today is down at 7.6 creatinine is stable at 1.65 On 03/06/2018 patient is feeling better alert and oriented 3 lying comfortably in bed denies any pain or discomfort denies any shortness of breath labs are still pending today 03/07/2018 patient lying in bed comfortably. Status post [place] filter on Wednesday. No further episodes of vomiting. Hemoglobin is up to 9.3. Patient has had increase in his white count to 12.8, platelets elevated at 565. He has no new complaints. Awaiting on infectious disease discharge antibiotic recommendations. Patient will require ECF placement. Patient denies any chest pain or shortness of breath. Denies any nausea or vomiting. Denies any bowel movement changes or urinary symptoms. 03/08/2018 patient has PICC line in place in the right arm. Orthopedics have cleared him for discharge. He is to go to [facility] for rehab. Patient still having scrotal edema did note some improvement after Lasix and albumin. Patient denies any chest pain or shortness of breath. Denies any nausea vomiting. Has been having bowel movements. Denies any burning with urination. Hemoglobin has dropped from 9.3-7.4. White count is up to 13.3. Platelets 642. We'll hold discharge for now and give IV Lasix with albumin to help with the scrotal edema. He likely will require another dose of these medications tomorrow. Also will give IV iron for his hemoglobin of 7.4 On 03/09/2018 patient is currently resting comfortably in bed. Patient states he is feeling much improved. Patient denies chest pain or shortness of breath. Patient denies nausea vomiting or diarrhea. Repeat hemoglobin improving to 8.0. Objective - Vital Signs Vital signs: Vital Signs Temp 98.1 F 03/09/18 08:22 Pulse 88 03/09/18 08:22 Resp 18 03/09/18 08:22 BP 118/83 03/09/18 08:22 Pulse Ox 94 L 03/09/18 08:22 Intake & Output 03/08/18 03/09/18 03/09/18 18:59 06:59 18:59 Intake Total 490 980 Output Total 475 Balance 490 505 Weight 83.9 kg Intake: IV 400 Sodium Chloride 0.9% 1, 400 000 ml @ 50 mls/hr IV . Q20H [facility] Rx#:[id number] Intake, IV Titration 250 100 Amount Sodium Ferric Gluconat- 100 Sucrose 125 mg In Sodium Chloride 0.9% 100 ml @ 100 mls/hr IVPB ONCE ONE Rx#:[id number] Vancomycin 1,250 mg In 250 Sodium Chloride 0.9% 250 ml @ 125 mls/hr IVPB Q24HR [facility] Rx#:[id number] Oral 240 480 Output: Urine 475 Other: Voiding Method Urinal Urinal Urinal Diaper Diaper Diaper # Voids 5 # Bowel Movements 1 - Exam Head normocephalic Neck supple Lungs clear to auscultation bilaterally no wheezing or crackles Heart regular rate and rhythm S1-S2, no rub or gallop Abdomen is soft nontender nondistended positive bowel sounds no hepatosplenomegaly Extremities right knee dressing clean dry and intact. +1 edema bilateral lower extremities. Scrotal edema present Neuro awake and alert answering questions - Labs CBC & Chem 7: 03/09/18 09:53 03/09/18 07:55 Labs: Abnormal Lab Results - Last 24 Hours (Table) 03/08/18 03/08/18 03/09/18 Range/Units 11:50 11:50 07:55 WBC 13.3 H (3.8-10.6) k/uL RBC 2.53 L (4.30-5.90) m/uL Hgb 7.4 L D (13.0-17.5) gm/dL Hct 24.7 L (39.0-53.0) % MCHC 30.1 L (31.0-37.0) g/dL RDW 17.9 H (11.5-15.5) % Plt Count 642 H (150-450) k/uL Neutrophils # 10.6 H (1.3-7.7) k/uL Potassium 3.2 L (3.5-5.1) mmol/L Chloride 109 H 114 H (98-107) mmol/L Carbon Dioxide 21 L (22-30) mmol/L Creatinine 1.45 H 1.49 H (0.66-1.25) mg/dL Calcium 7.7 L 8.3 L (8.4-10.2) mg/dL 03/09/18 03/09/18 Range/Units 07:55 09:53 WBC 15.3 H (3.8-10.6) k/uL RBC 1.74 L 2.62 L (4.30-5.90) m/uL Hgb 5.4 L* D 8.0 L D (13.0-17.5) gm/dL Hct 16.8 L* 25.9 L (39.0-53.0) % MCHC (31.0-37.0) g/dL RDW 18.0 H 18.3 H (11.5-15.5) % Plt Count 70 L D 752 H D (150-450) k/uL Neutrophils # 12.0 H (1.3-7.7) k/uL Potassium (3.5-5.1) mmol/L Chloride (98-107) mmol/L Carbon Dioxide (22-30) mmol/L Creatinine (0.66-1.25) mg/dL Calcium (8.4-10.2) mg/dL Microbiology - Last 24 Hours (Table) 03/04/18 20:38 Blood Culture - Preliminary Blood No Growth after 96 hours Assessment and Plan Assessment: #1 septic arthritis of the left knee: Aspiration culture from 02/25/2018 growing presumptive MRSA. Patient remains on IV vancomycin. Culture from aspiration growing MRSA. Status post stage I revision left total knee arthroplasty with removal of components and placement of antibiotic articulating spacer. Discussed with Dr. Ren yesterday he is recommending vancomycin pharmacy to dose to be continued 42 days from surgical date. PICC line is now in place. Also, discussed with Dr. Ren regarding patient's kidney function and the vancomycin. At this time he wants to continue with vancomycin and will monitor closely and have pharmacy to dose for renal #2 recent history of pulmonary embolism and DVT. Status post [place] filter placement. Patient no longer a candidate for anticoagulation. Xarelto discontinued #3 alcohol dependence with evidence of delirium tremens. Continue the CIWA protocol with Ativan and multivitamin, thiamine and folic acid #4 iron Deficiency anemia: ferrous sulfate 325 mg twice a day. #5 severe protein calorie malnutrition present on admission. Add ensure #6 acute GI bleed with coffee-ground emesis causing acute blood loss anemia. Secondary to linear erosions or ulcerations in the mid distal esophagus consistent with reflux esophagitis. Continue Protonix. Hemoglobin has dropped to 7.4 with no active signs of bleeding. He has known iron deficiency anemia. Will give a dose of IV iron. Repeat hemoglobin 8.0 #7 coagulopathy #8 hyperkalemia likely related to acute kidney injury. Resolved #9 acute kidney injury creatinine 1.45. Followed closely by nephrology. Continue with IV fluids #10 hypotension Secondary to GI bleed. Improved with IV fluids. #11 leukocytosis: We'll monitor. Infectious disease following. Continue IV antibiotics. #12 hypomagnesium on give magnesium supplement of 2 g the. Repeat magnesium in a.m. repeat magnesium 1.7 #13 scrotal edema due to severe protein calorie malnutrition patient received IV albumin and Lasix yesterday. Scrotal edema still present #14 hypokalemia: Patient given potassium 60 mEq 1 per nephrology. Follow up on potassium level in a.m. repeat potassium 4.5 Patient is not medically stable for discharge yet. Anticipating discharge closer to to [facility] I performed an examination of the patient and discussed their management with the physician Construction Recruiter. I have reviewed the Physician Construction Recruiter's notes and agree with the documented findings and plan of care
[2018-03-09] MEDS: VANCOMYCIN 1,000 MG in SODIUM CHLORIDE 0.9% 250 ML IVPB SCH (11:29)
[2018-03-09] MEDS: MULTIVITAMINS, THERA 1 EACH TAB PO SCH (11:29)
[2018-03-09] MEDS ORDERED: DARBEPOETIN ALFA 40 MCG/0.4 ML SYRINGE SQ SCH (12:00)
[2018-03-09] MEDS: SENNOSIDES-DOCUSATE SODIUM 1 EACH TAB PO SCH (20:28)
[2018-03-09] MEDS: THIAMINE 100 MG TAB PO SCH (20:29)
[2018-03-09] MEDS: TEMAZEPAM 15 MG CAP PO PRN (22:06)
[2018-03-10] MEDS: PANTOPRAZOLE 40 MG TABLET PO SCH (08:08)
[2018-03-10] MEDS: hydrOXYzine PAMOATE 25 MG CAP PO PRN ×2 (08:08→14:02)
[2018-03-10] MEDS: FERROUS SULFATE 325 MG TAB PO SCH (08:08)
[2018-03-10] MEDS: ONDANSETRON 4 MG/2 ML VIAL IVP PRN ×2 (08:08→13:02)
[2018-03-10] MEDS: METOPROLOL SUCCINATE (ER) 25 MG TAB.ER.24H PO SCH (08:08)
[2018-03-10] MEDS: HYDROcodone/APAP 10-325MG 1 EACH TAB PO PRN ×2 (08:09→14:01)
[2018-03-10] MEDS: FOLIC ACID 1 MG TAB PO SCH (08:09)
[2018-03-10 08:24] VITALS: RESP 12
--- NOTE | 2018-03-10 09:07 | P.PN ---
Subjective Progress Note Date: 03/10/18 This is a 58-year-old male who is status post stage I revision left total knee arthroplasty with removal of components and placement of an antibiotic spacer, EGD and Juan M filter placement. Patient is seen and evaluated at bedside. Patient states that he has been out of bed and into a chair. Patient denies any new complaints today. Patient denies any fever/chills, numbness, weakness, tingling, abdominal pain, shortness of breath or chest pain. Objective - Vital Signs Vital signs: Vital Signs Temp 97 F L 03/10/18 07:00 Pulse 65 03/10/18 07:00 Resp 12 03/10/18 07:00 BP 106/65 03/10/18 07:00 Pulse Ox 94 L 03/10/18 07:00 Intake & Output 03/09/18 03/10/18 03/10/18 18:59 06:59 18:59 Intake Total 200 550 Output Total 200 300 Balance 200 350 -300 Intake: IV 200 Sodium Chloride 0.9% 1, 200 000 ml @ 50 mls/hr IV . Q20H [facility] Rx#:[id number] Oral 550 Output: Urine 200 300 Other: Voiding Method Urinal Urinal Diaper Diaper # Voids 250 - Exam Patient is in no acute distress and patient is alert. Calf is soft and nontender to palpation. Dressing is clean, dry and intact. Patient has full foot and ankle motion without pain or difficulty. Neurovascular status and circulatory status are intact. - Labs CBC & Chem 7: 03/09/18 09:53 03/09/18 07:55 Labs: Abnormal Lab Results - Last 24 Hours (Table) 03/09/18 03/09/18 03/09/18 Range/Units 07:55 07:55 09:53 WBC 15.3 H (3.8-10.6) k/uL RBC 1.74 L 2.62 L (4.30-5.90) m/uL Hgb 5.4 L* D 8.0 L D (13.0-17.5) gm/dL Hct 16.8 L* 25.9 L (39.0-53.0) % RDW 18.0 H 18.3 H (11.5-15.5) % Plt Count 70 L D 752 H D (150-450) k/uL Neutrophils # 12.0 H (1.3-7.7) k/uL Chloride 114 H (98-107) mmol/L Carbon Dioxide 21 L (22-30) mmol/L Creatinine 1.49 H (0.66-1.25) mg/dL Calcium 8.3 L (8.4-10.2) mg/dL Microbiology - Last 24 Hours (Table) 03/04/18 20:38 Blood Culture - Preliminary Blood No Growth after 120 hours Assessment and Plan Assessment: Status post stage I revision left total knee arthroplasty with removal of components and placement of antibiotic spacer. History of pulmonary embolism. Alcohol dependence with delirium tremens. Iron deficiency anemia. (1) History of total knee arthroplasty Current Visit: Yes Status: Acute Code(s): Z96.659 - PRESENCE OF UNSPECIFIED ARTIFICIAL KNEE JOINT SNOMED Code(s): 9650187805592 (2) Alcoholism Current Visit: Yes Status: Acute Code(s): F10.20 - ALCOHOL DEPENDENCE, UNCOMPLICATED SNOMED Code(s): 2262157 (3) MRSA infection Current Visit: Yes Status: Acute Code(s): A49.02 - METHICILLIN RESIS STAPH INFECTION, UNSP SITE SNOMED Code(s): 546750002 (4) Septic arthritis of knee, left Current Visit: Yes Status: Acute Code(s): M00.9 - PYOGENIC ARTHRITIS, UNSPECIFIED SNOMED Code(s): 396567233 (5) Acute blood loss anemia Current Visit: Yes Status: Acute Code(s): D62 - ACUTE POSTHEMORRHAGIC ANEMIA SNOMED Code(s): 503792430 (6) Acute upper GI bleed Current Visit: Yes Status: Acute Code(s): K92.2 - GASTROINTESTINAL HEMORRHAGE, UNSPECIFIED SNOMED Code(s): 40219914 (7) Coffee ground emesis Current Visit: Yes Status: Acute Code(s): K92.0 - HEMATEMESIS SNOMED Code( s): 76813292 (8) EtOH dependence Current Visit: Yes Status: Acute Code(s): F10.20 - ALCOHOL DEPENDENCE, UNCOMPLICATED SNOMED Code(s): 00572035 (9) History of pulmonary embolism Current Visit: Yes Status: Acute Code(s): Z86.711 - PERSONAL HISTORY OF PULMONARY EMBOLISM SNOMED Code(s): 628161154 (10) Coagulopathy Current Visit: Yes Status: Acute Code(s): D68.9 - COAGULATION DEFECT, UNSPECIFIED SNOMED Code(s): 89708027 Plan: 1. Weightbearing as tolerated to the left lower extremity. 2. Daily dressing changes. 3. Cultures are positive for MRSA. IV antibiotics per infectious disease. 4. Appreciate input from internal medicine. 5. DVT prophylaxis with Xarelto is discontinued due to GI bleed during this admission. Patient is status post Juan M filter placement. 6. Continue routine postoperative care and pain control. 7. Anticipate discharge to rehab when cleared medically.
[2018-03-10 09:34] LABS: Anisocytosis Slight; Basophils # (A) 0.1 k/uL (0-0.2); Basophils % (A) 1 %; Eosinophils # (A) 0.3 k/uL (0-0.7); Eosinophils % (A) 3 %; HCT 26.5 % (39.0-53.0); HGB 8.4 gm/dL (13.0-17.5); Hypochromasia Moderate; Lymphocytes # (A) 2.2 k/uL (1.0-4.8); Lymphocytes % (A) 17 %; MCH 30.9 pg (25.0-35.0); MCHC 31.7 g/dL (31.0-37.0); MCV 97.6 fL (80.0-100.0); Macrocytosis Slight; Mean Platelet Volume 6.7; Monocytes # (A) 0.7 k/uL (0-1.0); Monocytes % (A) 6 %; Neutrophils % (A) 72 %; Platelet Count 793 k/uL (150-450); RBC 2.72 m/uL (4.30-5.90); WBC 12.6 k/uL (3.8-10.6)
[2018-03-10 09:57] LABS: Calcium 7.8 mg/dL (8.4-10.2); Magnesium 1.3 mg/dL (1.6-2.3); Potassium 3.2 mmol/L (3.5-5.1)
[2018-03-10] MEDS ORDERED: POTASSIUM CHLORIDE ER 20 MEQ TAB.ER PO STA (10:06)
--- NOTE | 2018-03-10 10:27 | P.PN ---
Subjective Patient is seen in follow-up for acute kidney injury. Renal function is worse with creatinine at 1.68 today. Patient did receive a dose of IV Lasix yesterday. Admits to good urine output. No vomiting or diarrhea. Patient recently had an antibiotic spacer placed for left knee infection. He also had a Juan M filter placed this admission. He is maintained on IV vancomycin. Vancomycin level was high at 30.8 on March 01 and was 22.9 yesterday. Edema improved. Vital signs are stable. General: The patient appeared well nourished and normally developed. HEENT: Head exam is unremarkable. Neck is without jugular venous distension. LUNGS: Lungs are clear to auscultation and percussion. Breath sounds decreased. HEART: Rate and Rhythm are regular. First and second heart sounds normal. No murmurs, rubs or gallops. ABDOMEN: Abdominal exam reveals normal bowel sounds. Non-tender and non- distended. No evidence of peritonitis. EXTREMITITES: Trace edema. Objective - Vital Signs Vital signs: Vital Signs Temp 97 F L 03/10/18 07:00 Pulse 65 03/10/18 07:00 Resp 12 03/10/18 07:00 BP 106/65 03/10/18 07:00 Pulse Ox 94 L 03/10/18 07:00 Intake & Output 03/09/18 03/10/18 03/10/18 18:59 06:59 18:59 Intake Total 200 550 Output Total 200 300 Balance 200 350 -300 Intake: IV 200 Sodium Chloride 0.9% 1, 200 000 ml @ 50 mls/hr IV . Q20H [facility] Rx#:[id number] Oral 550 Output: Urine 200 300 Other: Voiding Method Urinal Urinal Diaper Diaper # Voids 250 - Labs CBC & Chem 7: 03/10/18 09:15 03/10/18 09:15 Labs: Abnormal Lab Results - Last 24 Hours (Table) 03/09/18 03/10/18 03/10/18 Range/Units 07:55 09:15 09:15 WBC 12.6 H (3.8-10.6) k/uL RBC 2.72 L (4.30-5.90) m/uL Hgb 8.4 L (13.0-17.5) gm/dL Hct 26.5 L (39.0-53.0) % RDW 18.0 H (11.5-15.5) % Plt Count 793 H (150-450) k/uL Neutrophils # 9.0 H (1.3-7.7) k/uL Potassium 3.2 L (3.5-5.1) mmol/L Chloride 114 H (98-107) mmol/L Carbon Dioxide 21 L (22-30) mmol/L BUN 6 L (9-20) mg/dL Creatinine 1.49 H 1.68 H (0.66-1.25) mg/dL Calcium 8.3 L 7.8 L (8.4-10.2) mg/dL Magnesium 1.3 L (1.6-2.3) mg/dL Microbiology - Last 24 Hours (Table) 03/04/18 20:38 Blood Culture - Preliminary Blood No Growth after 120 hours Assessment and Plan Plan: Assessment: 1. Nonoliguric acute kidney injury secondary to ATN secondary to hypotension and vancomycin toxicity. Creatinine elevated at 1.68 today which is due to diuresis. 2. Septic arthritis of the left knee maintained on IV antibiotics. Culture positive for MRSA. Status post placement of antibiotic spacer. 3. History of DVT status post [place] filter placement this admission. 4. Hypokalemia secondary to diuresis and hypomagnesemia. 5. Hypomagnesemia secondary to diuresis. Protonix will also lead to hypomagnesemia by impairing its absorption. 6. Acute GI bleed status post blood transfusion. Maintained on Protonix. Hemoglobin 8.4 today. Plan: Hold off on diuretics today. Encourage oral intake. Maintain Aranesp. I will hold off on IV iron due to infection. Consider alternative to vancomycin due to impaired renal function. If he does continue with vancomycin, level will need to be monitored closely and dose will need to be adjusted for renal function. Replace potassium. 60 mg once today. Replace magnesium. 3 g IV today.
[2018-03-10] MEDS: VANCOMYCIN 1,000 MG in SODIUM CHLORIDE 0.9% 250 ML IVPB SCH (11:29)
[2018-03-10] MEDS: MULTIVITAMINS, THERA 1 EACH TAB PO SCH (11:42)
[2018-03-10] MEDS: MAGNESIUM SULFATE-D5W PMX 1 GM in DEXTROSE/WATER 1 100ML.BAG IVPB SCH ×3 (13:02→14:27)
--- NOTE | 2018-03-10 13:30 | P.DS ---
Providers Date of admission: 02/25/18 16:29 Expected date of discharge: 03/10/18 Attending physician: Aravind Laird Consults: 02/25/18 13:47 Consult Physician Stat Consulting Provider: Tejas Ren Consult Reason/Comments: septic total knee arthroplasty Do you want consulting provider notified?: Yes 02/25/18 13:57 Consult Physician Stat Consulting Provider: Benita Holland Consult Reason/Comments: CIWA protocol, medical management, pre op clearance Do you want consulting provider notified?: Yes 03/03/18 04:25 Consult Physician Routine Consulting Provider: Garfield Flynn Consult Reason/Comments: ICU Guest Service Supervisor Do you want consulting provider notified?: Yes 03/03/18 06:17 Consult Physician Stat Consulting Provider: Sue Doss Consult Reason/Comments: Urine output Do you want consulting provider notified?: Yes 03/03/18 12:42 Consult Physician Routine Consulting Provider: Jeffery Martinez Consult Reason/Comments: history of PE, filter placement Do you want consulting provider notified?: Yes 03/03/18 13:19 Consult Physician Stat Consulting Provider: Jeffery Martinez Consult Reason/Comments: ivc filter placement Do you want consulting provider notified?: Yes Primary care physician: Stated None Hospital Course: discharge diagnosis #1 septic arthritis of the left knee: Aspiration culture from 02/25/2018 growing presumptive MRSA. Patient remains on IV vancomycin. Culture from aspiration growing MRSA. Status post stage I revision left total knee arthroplasty with removal of components and placement of antibiotic articulating spacer. . At this time he wants to continue with vancomycin and will monitor closely and have pharmacy to dose for renal . Continue vancomycin pharmacy to dose for 42 more days via PICC line.monitor kidney function closely. Weekly labs have been ordered per ID. Also will check a CBC and BMP in 3 days #2 recent history of pulmonary embolism and DVT. Status post [place] filter placement. Patient no longer a candidate for anticoagulationsecondary GI bleed. Xarelto discontinued #3 alcohol dependence with evidence of delirium tremens. Continue the CIWA protocol with Ativan and multivitamin, thiamine and folic acid #4 iron Deficiency anemia: ferrous sulfate 325 mg twice a day. #5 severe protein calorie malnutrition present on admission. continue ensure #6 acute GI bleed with coffee-ground emesis causing acute blood loss anemia. Secondary to linear erosions or ulcerations in the mid distal esophagus consistent with reflux esophagitis. Continue Protonix. Hemoglobin has dropped to 7.4 with no active signs of bleeding. He has known iron deficiency anemia. Repeat hemoglobin 8.4. #7 coagulopathy #8 hyperkalemia likely related to acute kidney injury. Resolved #9 acute kidney injury creatinine 1.45. Followed closely by nephrology. Continue with IV fluids #10 hypotension Secondary to GI bleed. Improved with IV fluids. #11 leukocytosis: We'll monitor. Infectious disease following. Continue IV antibiotics. #12 hypomagnesium : Magnesium 1.3. Patient receiving IV magnesium. Will resume oral magnesium 4 mg twice a day. #13 scrotal edema due to severe protein calorie malnutrition patient received IV albumin and Lasix yesterday. Scrotal edema still present #14 hypokalemia: patient received potassium supplement prior to discharge. We will continue K-Dur 20 milliequivalents twice a day. Hospital course Addy Villalpando, is a 58 year old male who presented to the Orthopedic Surgery office for recheck of his left knee. He is status post left total knee arthroplasty, 4 months ago . Patient was complaining of of increased pain and swelling in the left knee. Patient had multiple hospitalizations for alcohol withdrawal as well as pulmonary embolism recently. Patient was complaining of pain and swelling in the left knee.He is having difficulty with weight bearing on the left knee secondary to pain. He did have a vague history of a remote fall which he did not seeks treatment for. He was evaluated by orthopedic surgery and was admitted directly to [facility], he was started on IV antibiotic vancomycin, and is scheduled for surgery on the left knee on Wednesday. On 02/27/2018 patient was seen and examined, he is alert and oriented 3 in no apparent distress sitting at the edge of his bed there is no fever or chills no headache or dizziness no chest pain no shortness of breath no cough no nausea or vomiting no abdominal pain no diarrhea and no urinary symptoms ane in the knee is well-controlled at this time. 02/28/2018 patient still requiring the IV Ativan for withdrawal-like symptoms. Patient is easily agitated. Reports that he does not need to be here in the hospital. That he wants to leave right away. Patient has been receiving the IV Ativan. Aspiration culture of the left knee completed on 02/25/2018 shows presumptive MRSA. He is currently on IV vancomycin. Orthopedics are planning an I&D on Wednesday with antibiotic spacer. 03/01/2018 patient is scheduled for surgery today for an I&D. He did require 1 dose of IV Ativan yesterday. Nursing staff gave Vistaril this morning for his anxiety. He is no longer having tachycardia. Hemoglobin 9.5 iron low at 47. He'll be started on ferrous sulfate 325 mg twice a day. Denies any chest pain or shortness breath. Denies any nausea or vomiting. Denies any bowel movement changes or urinary symptoms On 03/02/2018 patient is status post I&D postop day 1. Patient is currently resting comfortably in bed. Patient did require 3 doses of Ativan throughout night due to withdrawal. This time patient denies chest pain or shortness breath. Patient denies nausea vomiting or diarrhea. Patient denies any urinary burning or frequency 03/03/2018 patient required a transfer to the ICU due to upper GI bleed. Patient had coffee-ground emesis. NG tube was inserted. Hemoglobin down to 6.6 INR 1.7 she is on IV Sandostatin. GI is following and patient is scheduled for EGD. He is also receiving blood transfusion and FFP. Nephrology is also following the patient. She is having low-grade temps 100.4 this morning. White count is up to 14.4 and he is still tachycardic and blood pressure 85/52. 03/04/2018 patient status post EGD showing linear erosions or ulcerations in the mid and distal esophagus consistent with LA grade D reflux esophagitis and also a moderate size hiatal hernia. He continues on IV Protonix. NG tube was removed no further episodes of vomiting. Any scheduled to be transferred out of the ICU today. Was seen by vascular surgery he is scheduled for Juan M filter placement due to his history of PE and DVT. He can no longer take the Xarelto due to his severe GI bleed. Blood pressures are showing improvement after IV fluids. Patient also received a total of 3 units of RBCs and 2 units of FFP On 03/05/2018 patient is alert and oriented 3 in no apparent distress, he is complaining of knee pain and abdominal discomfort otherwise no complaints at this time no new episodes of nausea or vomiting hemoglobin today is down at 7.6 creatinine is stable at 1.65 On 03/06/2018 patient is feeling better alert and oriented 3 lying comfortably in bed denies any pain or discomfort denies any shortness of breath labs are still pending today 03/07/2018 patient lying in bed comfortably. Status post [place] filter on Wednesday. No further episodes of vomiting. Hemoglobin is up to 9.3. Patient has had increase in his white count to 12.8, platelets elevated at 565. He has no new complaints. Awaiting on infectious disease discharge antibiotic recommendations. Patient will require ECF placement. Patient denies any chest pain or shortness of breath. Denies any nausea or vomiting. Denies any bowel movement changes or urinary symptoms. 03/08/2018 patient has PICC line in place in the right arm. Orthopedics have cleared him for discharge. He is to go to [facility] for rehab. Patient still having scrotal edema did note some improvement after Lasix and albumin. Patient denies any chest pain or shortness of breath. Denies any nausea vomiting. Has been having bowel movements. Denies any burning with urination. Hemoglobin has dropped from 9.3-7.4. White count is up to 13.3. Platelets 642. We'll hold discharge for now and give IV Lasix with albumin to help with the scrotal edema. He likely will require another dose of these medications tomorrow. Also will give IV iron for his hemoglobin of 7.4 On 03/09/2018 patient is currently resting comfortably in bed. Patient states he is feeling much improved. Patient denies chest pain or shortness of breath. Patient denies nausea vomiting or diarrhea. Repeat hemoglobin improving to 8.0. Patient is medically stable for discharge. On 03/10/2018. Discharge held that he could receive another dose of IV Lasix and IV albumin due to his severe protein calorie medication and scrotal edema. This has shown improvement. He is medically stable to be discharged to [address] [place] [address] [facility]. He will continue vancomycin for MRSA sepsis in the knee. Continue the vancomycin 42 days per infectious disease recommendations. Monitor CBC and BMP closely well on the vancomycin. During this admission he also had a Juan M filter placed due to his history of PE and could not tolerate the Xarelto due to the GI bleed. We'll continue with the Protonix 40 mg twice a day. However need to continue to monitor magnesium closely because the Protopic to effects the absorption of the magnesium. He'll be on magnesium supplement and potassium supplement. I performed an examination of the patient and discussed their management with the physician Stroboroma Operator. I have reviewed the Physician Stroboroma Operator's notes and agree with the documented findings and plan of care Patient Condition at Discharge: Stable Plan - Discharge Summary Discharge Rx Participant: Yes New Discharge Prescriptions: New HYDROcodone/APAP 5-325MG [Citra 5-325] 1 - 2 tab PO Q4-6H PRN #84 tab PRN Reason: Pain Sennosides [Senokot] 1 tab PO BID #60 tablet Vancomycin 1,000 mg IVPB Q24HR #42 bag Ferrous Sulfate [Iron (65 MG Elemental)] 325 mg PO BID tab Nicotine Polacrilex [Nicorette] 2 mg BUCCAL Q2HR PRN gum PRN Reason: Nicotine Cravings Pantoprazole [Protonix] 40 mg PO BID #0 tablet.dr Continue busPIRone HCl [Buspar] 10 mg PO BID PRN PRN Reason: Anxiety Albuterol Nebulized [Ventolin Nebulized] 2.5 mg INHALATION RT-Q4H Magnesium 400 mg PO BID Thiamine HCl [Vitamin B-1] 100 mg PO HS Folic Acid 1 mg PO DAILY Ondansetron [Zofran] 4 mg PO TID PRN PRN Reason: Nausea And Vomiting QUEtiapine FUMARATE 100 mg PO HS Potassium Chloride [Klor-Con 20] 20 meq PO BID Metoprolol Succinate [Toprol XL] 25 mg PO DAILY #30 tab Multivitamins, Thera [Multivitamin (formulary)] 1 tab PO DAILY@1200 LORazepam [Ativan] 0.5 mg PO Q8HR PRN #9 tab PRN Reason: Anxiety Discontinued Omeprazole 20 mg PO DAILY Rivaroxaban [Xarelto] 20 mg PO DAILY HYDROcodone/APAP 7.5-325MG [Citra 7.5-325] 1 tab PO Q4-6H PRN PRN Reason: Pain Discharge Medication List busPIRone HCl [Buspar] 10 mg PO BID PRN 12/01/17 [History] Albuterol Nebulized [Ventolin Nebulized] 2.5 mg INHALATION RT-Q4H 01/28/18 [ History] Magnesium 400 mg PO BID 01/28/18 [History] Thiamine HCl [Vitamin B-1] 100 mg PO HS 01/28/18 [History] Folic Acid 1 mg PO DAILY 02/16/18 [History] Ondansetron [Zofran] 4 mg PO TID PRN 02/16/18 [History] QUEtiapine FUMARATE 100 mg PO HS 02/16/18 [History] Potassium Chloride [Klor-Con 20] 20 meq PO BID 02/17/18 [History] Metoprolol Succinate [Toprol XL] 25 mg PO DAILY #30 tab 02/18/18 [Rx] Multivitamins, Thera [Multivitamin (formulary)] 1 tab PO DAILY@1200 02/25/18 [ History] HYDROcodone/APAP 5-325MG [Citra 5-325] 1 - 2 tab PO Q4-6H PRN #84 tab 03/08/18 [ Rx] Sennosides [Senokot] 1 tab PO BID #60 tablet 03/08/18 [Rx] Ferrous Sulfate [Iron (65 MG Elemental)] 325 mg PO BID tab 03/10/18 [Rx] LORazepam [Ativan] 0.5 mg PO Q8HR PRN #9 tab 03/10/18 [Rx] Nicotine Polacrilex [Nicorette] 2 mg BUCCAL Q2HR PRN gum 03/10/18 [Rx] Pantoprazole [Protonix] 40 mg PO BID #0 tablet.dr 03/10/18 [Rx] Vancomycin 1,000 mg IVPB Q24HR #42 bag 03/10/18 [Rx] Follow up Appointment(s)/Referral(s): Ascencion Mak MD [STAFF PHYSICIAN] - 1 Week (Patient to call office wednesday to make an apt) Aravind Laird MD [STAFF PHYSICIAN] - 03/21/18 2:30 pm Michelet Gaspar DO [STAFF PHYSICIAN] - 1 Week Ambulatory/Diagnostic Orders: Basic Metabolic Panel [LAB.AMB] Location: None Selected Complete Blood Count w/diff [LAB.AMB] Location: None Selected C Reactive Protein [LAB.AMB] Location: None Selected Erythrocyte Sedimentation Rate [LAB.AMB] Location: None Selected Vancomycin,Trough [LAB.AMB] Location: None Selected Activity/Diet/Wound Care/Special Instructions: Weightbearing as tolerated with a walker. Daily dressing changes, keep incision clean and dry. May shower if no drainage from incision. IV antibiotics per infectious disease. Please call [facility] with questions or concerns, [phone]. Monitor Renal function closely while on Vancomycin follow up with PCP in 1 week Discharge Disposition: TRANSFER TO SNF/ECF
[2018-03-10 15:55] VITALS: BP 102/57; PULSE 763; TEMP 97.4
[2018-03-10] MEDS: DIAZEPAM 5 MG TAB PO PRN (16:26)
== END 2018-03-10 16:51 | DRG 463 ==
LOC: 3SUR 16:29 → 6ICU 02-27 18:48 → 3SUR 02-28 19:08 → 6ICU 03-03 05:01 → 3SUR 03-04 11:06 → 4SSUR 03-06 07:19
PROVIDERS: ADMIT Orthopaedic Surgery Sports Medicine; ATTEND Orthopaedic Surgery Sports Medicine
PROC: 0SHD08Z Insertion of Spacer into Left Knee Joint, Open Approach (ICD-10-PCS; 2018-03-01)
PROC: 0SPD0JZ Removal of Synthetic Substitute from Left Knee Joint, Open Approach (ICD-10-PCS; principal; 2018-03-01 16:00)
PROC: 0DJ08ZZ Inspection of Upper Intestinal Tract, Via Natural or Artificial Opening Endoscopic (ICD-10-PCS; 2018-03-03)
PROC: 30243K1 Transfusion of Nonautologous Frozen Plasma into Central Vein, Percutaneous Approach (ICD-10-PCS; 2018-03-03)
PROC: 30243N1 Transfusion of Nonautologous Red Blood Cells into Central Vein, Percutaneous Approach (ICD-10-PCS; 2018-03-03)
PROC: 06H03DZ Insertion of Intraluminal Device into Inferior Vena Cava, Percutaneous Approach (ICD-10-PCS; 2018-03-07)
PROC: 02HV33Z Insertion of Infusion Device into Superior Vena Cava, Percutaneous Approach (ICD-10-PCS; 2018-03-08)
DX: T84.54XA Infection and inflammatory reaction due to internal left knee prosthesis, initial encounter (principal); A41.02 Sepsis due to Methicillin resistant Staphylococcus aureus; E43 Unspecified severe protein-calorie malnutrition; N17.0 Acute kidney failure with tubular necrosis; K22.11 Ulcer of esophagus with bleeding; M00.062 Staphylococcal arthritis, left knee; D62 Acute posthemorrhagic anemia; D68.9 Coagulation defect, unspecified; F10.231 Alcohol dependence with withdrawal delirium; J96.11 Chronic respiratory failure with hypoxia; B95.62 Methicillin resistant Staphylococcus aureus infection as the cause of diseases classified elsewhere; E83.42 Hypomagnesemia; E87.5 Hyperkalemia; E87.6 Hypokalemia; F41.9 Anxiety disorder, unspecified; G40.909 Epilepsy, unspecified, not intractable, without status epilepticus; I10 Essential (primary) hypertension; J44.9 Chronic obstructive pulmonary disease, unspecified; K21.0 Gastro-esophageal reflux disease with esophagitis; K44.9 Diaphragmatic hernia without obstruction or gangrene; N50.89 Other specified disorders of the male genital organs; R32 Unspecified urinary incontinence; T36.8X5A Adverse effect of other systemic antibiotics, initial encounter; T50.2X5A Adverse effect of carbonic-anhydrase inhibitors, benzothiadiazides and other diuretics, initial encounter; K57.90 Diverticulosis of intestine, part unspecified, without perforation or abscess without bleeding; R15.9 Full incontinence of feces; M19.90 Unspecified osteoarthritis, unspecified site; R05 Cough; F17.210 Nicotine dependence, cigarettes, uncomplicated; Z86.718 Personal history of other venous thrombosis and embolism; Z86.711 Personal history of pulmonary embolism; Z86.14 Personal history of Methicillin resistant Staphylococcus aureus infection; Z90.49 Acquired absence of other specified parts of digestive tract; Z79.01 Long term (current) use of anticoagulants; Z79.899 Other long term (current) drug therapy; Z91.81 History of falling; Z88.5 Allergy status to narcotic agent; Z80.3 Family history of malignant neoplasm of breast; Z82.49 Family history of ischemic heart disease and other diseases of the circulatory system; Y79.2 Prosthetic and other implants, materials and accessory orthopedic devices associated with adverse incidents; Y83.1 Surgical operation with implant of artificial internal device as the cause of abnormal reaction of the patient, or of later complication, without mention of misadventure at the time of the procedure
CPT/HCPCS: 36569; 37191; 43235; 71045; 76937; 77001; 80048; 80053; 80202; 81001; 82140; 82607; 82728; 83540; 83550; 83605; 83735; 84100; 84132; 85025; 85610; 86140; 86850; 86900; 86901; 86920; 87040; 87070; 87075; 87077; 87086; 87186; 87205; 89050; 89060; 93970

== ENCOUNTER → 2018-05-02 | Outpatient (CLI) | payer MEDICARE ==
[2018-05-02 10:15] LABS: Partial Thromboplastin Time 32.4 sec (22.0-30.0); Prothrombin Time 10.9 sec (9.0-12.0)
[2018-05-02 10:25] LABS: HCT 40.6 % (39.0-53.0); Hypochromasia Marked; MCH 30.1 pg (25.0-35.0); MCHC 29.8 g/dL (31.0-37.0); Macrocytosis Slight; Mean Platelet Volume 6.4; Platelet Count 416 k/uL (150-450); RBC 4.02 m/uL (4.30-5.90); RDW 15.4 % (11.5-15.5); WBC 8.6 k/uL (3.8-10.6)
[2018-05-02 10:28] LABS: HGB 12.1 gm/dL (13.0-17.5)
[2018-05-02 10:36] LABS: Albumin 2.9 g/dL (3.5-5.0); Calcium 8.6 mg/dL (8.4-10.2); Potassium 4.8 mmol/L (3.5-5.1); Total Bilirubin 0.3 mg/dL (0.2-1.3)
[2018-05-02 11:19] LABS: Appearance,Urine Clear (Clear); Bilirubin,Urine Negative (Negative); Blood,Urine Negative (Negative); Color,Urine Yellow; Glucose,Urine (UA) Negative (Negative); Ketones,Urine Negative (Negative); Leukocyte Esterase,Urine Negative (Negative); Nitrite,Urine Negative (Negative); PH, Urine 5.5 (5.0-8.0); Protein,Urine Negative (Negative); Specific Gravity,Urine 1.018 (1.001-1.035); Urobilinogen,Urine <2.0 mg/dL (<2.0)
== END ==
LOC: LABPAT 09:09
PROVIDERS: ATTEND Orthopaedic Surgery
DX: Z01.812 Encounter for preprocedural laboratory examination (principal); Z51.81 Encounter for therapeutic drug level monitoring; Z79.01 Long term (current) use of anticoagulants
CPT/HCPCS: 80053; 81003; 85027; 85610; 85730; 87070

== ENCOUNTER 2018-05-13 05:49 | Inpatient (IN) | payer MEDICARE ==
[2018-05-06 14:22] VITALS: BMI 24.3
[~2018-05-13 05:49] MED LIST: ACETAMINOPHEN TAB 500 MG TAB PO ONE; DEXAMETHASONE SOD PHOSPHATE 10 MG/ML 1 ML VIAL IV ONE; HYDROmorphone 0.5 MG/0.5 ML SYRINGE IVP PRN; MELOXICAM 7.5 MG TAB PO ONE; MIDAZOLAM (PF) 2 MG/2 ML VIAL IV PRN; ONDANSETRON 4 MG/2 ML VIAL IVP ONE; SCOPOLAMINE 1.5MG/72HR PATCH TRANSDERM ONE; TRANEXAMIC ACID 1,000 MG in SODIUM CHLORIDE 0.9% 50 ML IVPB ONE; ceFAZolin IN SWFI 2 GM/20 ML SYRINGE IVP ONE
[2018-05-13] MEDS ORDERED: ROPIVACAINE 246.25 MG, EPINEPHrine 0.5 MG, KETOROLAC 30 MG, cloNIDine HCL/PF 80 MCG, WA... MISCELLANE ONE ×5 (06:20)
[2018-05-13] MEDS ORDERED: LIDOCAINE 1% 20 ML VIAL (10MG/ML) FOR IV START INTRADERMA ONE (06:22)
[2018-05-13] MEDS: LACTATED RINGERS 1,000 ML IV SCH (06:22)
[2018-05-13] MEDS ORDERED: ONDANSETRON 4 MG/2 ML VIAL IVP PRN (07:04)
[2018-05-13] MEDS ORDERED: NA PHOS,M-B/NA PHOS,DI-BA 133 ML ENEMA RECTAL PRN (07:04)
[2018-05-13] MEDS ORDERED: NALOXONE 0.4 MG/ML 1 ML VIAL IV PRN (07:04)
[2018-05-13] MEDS ORDERED: HYDROmorphone 0.5 MG/0.5 ML SYRINGE IVP PRN (07:04)
[2018-05-13] MEDS ORDERED: BISACODYL 10 MG SUPP RECTAL PRN (07:04)
[2018-05-13] MEDS ORDERED: MAGNESIUM HYDROXIDE 2,400 MG/10 ML CUP PO PRN (07:04)
[2018-05-13] MEDS ORDERED: HYDROcodone/APAP 7.5-325MG 1 EACH TAB PO PRN ×2 (07:04→09:27)
[2018-05-13] MEDS ORDERED: PROPOFOL 10 MG/ML 20 ML VIAL IV ONE (07:06)
[2018-05-13] MEDS ORDERED: ePHEDrine SULFATE/0.9% NACL/PF 50 MG/5 ML SYRINGE IV ONE (07:06)
[2018-05-13] MEDS ORDERED: HYDROmorphone (PF) 1 MG/ML ONE (07:06)
[2018-05-13] MEDS ORDERED: fentaNYL (PF) 50 MCG/ML 2 ML AMP ONE (07:06)
[2018-05-13] MEDS ORDERED: PHENYLEPHRINE-0.9% NACL SYG 1 MG/10 ML SYRINGE ONE (07:06)
[2018-05-13] MEDS ORDERED: BUPIVACAINE (PF) 0.5% 30 ML VIAL ONE (07:06)
[2018-05-13] MEDS ORDERED: MIDAZOLAM 2 MG/2 ML VIAL ONE (07:06)
[2018-05-13] MEDS ORDERED: TRANEXAMIC ACID 1,000 MG/10 ML VIAL ONE (07:06)
[2018-05-13] MEDS ORDERED: SODIUM CHLORIDE 0.9% 100 ML BAG ONE (07:06)
[2018-05-13] MEDS ORDERED: TOBRAMYCIN SULFATE 1.2 GM VIAL MISCELLANE ONE (08:04)
[2018-05-13] MEDS ORDERED: VANCOMYCIN 1,000 MG VIAL MISCELLANE ONE (08:04)
[2018-05-13] MEDS ORDERED: LACTATED RINGERS 1,000 ML IV ONE (08:06)
--- NOTE | 2018-05-13 08:51 | P.OP ---
Date of Procedure: 05/13/18 Preoperative Diagnosis: Infection left total knee arthroplasty, status post stage I revision with an antibiotic spacer Postoperative Diagnosis: Persistent infection left knee, status post stage I revision with antibiotic spacer Procedure(s) Performed: Repeat stage I revision left total knee with removal of prior antibiotic spacer and placement of new antibiotic spacer for persistent infection Implants: [employer] large knee antibiotic spacer Stimulan antibiotic beads Butler antibiotic Simplex P cement with tobramycin Anesthesia: spinal Surgeon: Bassem Traylor Fence Making Machine Operator #1: Alba Martinez Estimated Blood Loss (ml): 100 Pathology: other (Cultures 2, frozen section) Condition: stable Disposition: PACU Indications for Procedure: This is a 58-year-old gentleman that was seen by me by request of my partner Dr. Laird. He has a history of having an MRSA infection in his left total knee , treated with removal of the total knee and placement of antibiotic spacer approximately 8 weeks ago. He was seen in the office, at that time felt the infection was most likely cleared and boarded for stage II revision of his left total knee. He is aware of the possibility of recurrent infection, especially since his original infection was MRSA. Informed consent was obtained. Operative Findings: The operative findings are consistent with a recurrent infection of his left total knee. Was gross purulence in the knee, as well as a positive frozen section for acute inflammation. Description of Procedure: Patient was seen in the preoperative area consent was reviewed and operative site was marked with a skin marker. Patient was then brought to the operating room and given preoperative antibiotics intravenously. A spinal anesthetic was administered by the anesthesia department. A tourniquet was placed on the upper thigh and the lower extremity was prepped and draped in usual sterile fashion. A gram of transexamic acid was given. A universal timeout was then performed which confirmed the patient's name, surgical site, ALLERGIES, and consent. The lower extremity was then exsanguinated and tourniquet was inflated to 250 mmHg. A standard and anterior midline approach to the knee was performed. The skin and subcutaneous tissue was dissected down to the patellar tendon, with the prior scar being excised. A medial parapatellar arthrotomy was then performed. A moderate amount of purulent fluid was encountered, and this was cultured 2. The knee was then extended, the patellar was everted, and the knee was again flexed. A sample of synovium was then sent for frozen section, which was found to be positive for acute inflammation. Next, the prior antibiotic spacer was removed with an osteotome and a mallet without incident There was minimal bone loss encountered. Using a Rominger, an extensive debridement that was performed of the soft tissue as well as the bone. The knee was copiously irrigated with antibiotic solution with pulsatile lavage. Next, the antibiotic spacer was opened as well as the cement which was mixed and the antibiotic stimulan beads were made. The posterior structures were injected with the ropivacaine solution. The knee was also irrigated with Irrisept solution. The components were then opened, the cement was mixed, and the components were then lightly cemented in place. The cement was allowed to harden with the knee in full extension. While the cement was hardening, the remaining soft tissues were then injected with a ropivacaine solution, which consisted of 246.25 mg of ropivacaine, 0.5 mg of epinephrine, 30 mg of Toradol, 80 g of clonidine, and 48.45 mL of sterile water, for a total of 100 mL of fluid injected. After the cemented hardened. The tourniquet was released, and hemostasis was obtained. A second gram of transexamic acid was given. The knee was again irrigated. The fascia was then closed with #2 strata fix suture. The subcutaneous tissue was closed with 3-0 Vicryl and isabela for the skin. The patient was placed in a sterile silver dressing. Patient was then transferred to recovery room in stable condition. The ophthalmic medical assistant FAY Gilliland was required due the complexity surgery and the need for a skilled salesperson surgical appliances. She assisted in positioning, draping, retraction, and closure of the wound.
--- NOTE | 2018-05-13 09:53 | XR ---
EXAMINATION TYPE: XR knee limited LT DATE OF EXAM: 05/13/2018 COMPARISON: NONE TECHNIQUE: Two views submitted HISTORY: Post op FINDINGS: There is a prosthetic knee in near anatomic alignment. There is soft tissue edema and emphysema. Cody rgical isabela are seen and there is radiopaque densities overlying the anterior margin the femur and tibia which may be related the antibiotic pellets. Correlate clinically. There is some lucency of th e proximal tibia. This is nonspecific could be related to previous surgery or infection. IMPRESSION: 1. Postoperative change. Appears in near-anatomic alignment
--- NOTE | 2018-05-13 14:11 | P.CONS ---
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 He completed antibiotic treatment vancomycin. And he had a stage I revision of the left total knee arthroplasty with removal of components and placement of antibiotic spacer in February 2018. Patient went to senior living. He completed antibiotic treatment. He presented back to the hospital for possible stage II revision of the left total knee arthroplasty. However, they had to do a repeat stage I revision of the left total knee with removal of prior antibiotic spacer and placement of new antibiotic spacer for persistent infection. Patient is currently on IV Kefzol. Infectious disease has been consulted. Cultures have been obtained. Pain is controlled. Patient denies any chest pain or shortness of breath. Denies any nausea or vomiting. Denies any bowel movement changes or urinary symptoms. Denies any fever chills or sweats. Also note that patient does have a past medical history of alcohol abuse. He states that it's been over 3 months since she's had alcoholic beverage. Patient does have a history of PE and DVT and had undergone Juan M filter placement in February 2018. At that time Xarelto was discontinued due to GI bleed with office ground emesis. Secondary to Linear erosions or ulcerations in the mid distal esophagus consistence with reflux esophagitis on EGD. And he was maintained on Protonix. But apparently patient has been restarted on Xarelto on the outpatient setting. He also has a history of iron deficiency anemia. We have been consulted for medical management. Medications have been reviewed and reconciled. Review of Systems Please refer to HPI otherwise unremarkable Past Medical History Past Medical History: COPD, Deep Vein Thrombosis (DVT), GERD/Reflux, Osteoarthritis (OA), Pulmonary Embolus (PE), Seizure Disorder, Syncope Additional Past Medical History / Comment(s): LAST SEIZURE 3 YRS AGO., EMPHYSEMA & COPD- STATES OXYGEN PRN AT NIGHT.,HX OF RESPIRATORY FAILURE, HX OF HEAVY ALCOHOL USE., HX OF FALLS, RIB FX., DIVERTICULOSIS, SMALL BOWEL OBST DUE TO INCARCERATED RIGHT INGUINAL HERNIA., PAIN IN HEELS., STATES INFECTION IN LEFT KNEE AND WAS RECEIVING IV ANTIBIOTIC THRU PICC LINE AT [facility] - DISCHARGED 04/13/18., USING WHEELCHAIR. History of Any Multi-Drug Resistant Organisms: MRSA Year Discovered:: 03/01/18 MDRO Source:: KNEE Past Surgical History: Appendectomy, Heart Catheterization, Hernia Repair, Joint Replacement, Orthopedic Surgery, Tonsillectomy Additional Past Surgical History / Comment(s): Colonoscopies and polypectomies, 10/21/15 cardiac cath, Right inguinal hernia x3, Left inguinal hernia x1., bilateral knee arthroscopies., Felipe Total Knees, hardware removed left knee. " had blood clots removed from lungs at [facility]. Past Anesthesia/Blood Transfusion Reactions: No Reported Reaction Past Psychological History: Anxiety, Depression Additional Psychological History / Comment(s): . Smoking Status: Heavy tobacco smoker Past Alcohol Use History: Daily, Heavy Additional Past Alcohol Use History / Comment(s): STATES HX OF HEAVY ALCOHOL USE , VODKA AND BEER. STATES NO ALCOHOL FOR 2 MONTHS. SMOKES 1 PPD., SMOKING SINCE 14 YEARS OLD. Past Drug Use History: None Reported Additional Drug Use History / Comment(s): Pt states in the past he had used cocaine but none for 20years. He denies ever abusing prescription drugs. - Past Family History Father Family Medical History: Coronary Artery Disease (CAD), Myocardial Infarction (ND ) Additional Family Medical History / Comment(s): Father of a ND at the age of 73 yrs. Mother Family Medical History: Cancer Additional Family Medical History / Comment(s): BREAST CA Medications and Allergies Home Medications Medication Instructions Recorded Confirmed Type Albuterol Nebulized [Ventolin 2.5 mg INHALATION RT-Q4H PRN 01/28/18 05/13/18 History Nebulized] Multivitamins, Thera [Multivitamin 1 tab PO DAILY 02/25/18 05/13/18 History (formulary)] Gabapentin [Neurontin] 300 mg PO BID 05/06/18 05/13/18 History HYDROcodone/APAP 7.5-325MG [[place] 1 tab PO Q4-6H PRN 05/06/18 05/13/18 History 7.5-325] Magnesium (Unknown Dose) 1 tab PO DAILY 05/06/18 05/13/18 History Pantoprazole [Protonix] 40 mg PO HS 05/06/18 05/13/18 History Potassium (Unknown Dose) 1 tab PO BID 05/06/18 05/13/18 History Rivaroxaban [Xarelto] 20 mg PO DAILY 05/06/18 05/13/18 History Loperamide [Imodium] 2 mg PO QID PRN 05/09/18 05/13/18 History HYDROcodone/APAP 7.5-325MG [[place] 1 - 2 tab PO Q4-6H PRN #84 tab 05/13/18 Rx 7.5-325] Sennosides [Senokot] 1 tab PO BID #60 tablet 05/13/18 Rx Allergies Allergy/AdvReac Type Severity Reaction Status Date / Time tramadol AdvReac Mild Itching Verified 05/13/18 06:06 Physical Exam Vitals: Vital Signs Temp Pulse Resp BP Pulse Ox 05/13/18 12:42 16 05/13/18 12:00 80 105/70 05/13/18 11:45 88 104/68 05/13/18 11:30 83 104/69 05/13/18 11:15 83 104/70 05/13/18 11:00 80 115/79 05/13/18 10:45 83 113/78 05/13/18 10:30 80 113/74 05/13/18 10:15 78 106/73 05/13/18 10:00 98.8 F 79 16 107/71 94 L 05/13/18 09:45 78 16 102/76 97 05/13/18 09:30 80 16 103/71 96 05/13/18 09:15 63 14 112/68 100 05/13/18 09:10 96.6 F L 79 16 114/73 96 05/13/18 06:09 97.8 F 95 16 143/86 98 Intake and Output 05/12/18 05/13/18 05/13/18 22:59 06:59 14:59 Intake Total 400 1018 Output Total 100 Balance 400 918 Intake: IV 400 900 Oral 118 Output: Estimated Blood Loss 100 Other: Weight 72.575 kg Head normocephalic Neck supple Lungs clear to auscultation bilaterally no wheezing or crackles Heart regular rate and rhythm S1-S2, no rub or gallop Abdomen is soft nontender nondistended positive bowel sounds no hepatosplenomegaly Extremities no edema. Left knee is Thor wrapped. Patient has full sensation in his left toes. Neuro alert and orientated to 3 Assessment and Plan Assessment: 1. Persistent infection of the left knee status post repeat stage I revision left total knee with removal of prior antibiotic spacer and placement of new antibiotic spacer. Infectious disease has been placed on consult. Continue antibiotics. Cultures have been obtained. patient did complete 8 weeks of vancomycin IV in the outpatient setting 2. history of PE and DVT status post Juan M filter in February 2018 due to GI bleeding 3. History of GI bleed due to linear erosions or ulcerations in the mid distal esophagus consistent with reflux esophagitis continue Protonix. 4. History of alcohol abuse. Patient has not had alcoholic beverage in 3 months Thank you for this consultation. We will continue to follow along with you. Check CBC and CMP in a.m. Medications have been reviewed and reconciled Time with Patient: Greater than 30 (.Greater than 50% of the total time spent in counseling and coordination of care.I performed an examination of the patient and discussed their management with the physician [employer] Salesperson. I have reviewed the Physician [employer] Salesperson's notes and agree with the documented findings and plan of care)
[2018-05-13] MEDS: HYDROmorphone 1 MG/ML 1 ML SYRINGE IVP PRN ×2 (14:53→19:41)
[2018-05-13] MEDS: ceFAZolin IN SWFI 2 GM/20 ML SYRINGE IVP SCH ×2 (14:54→22:51)
[2018-05-13] MEDS: SODIUM CHLORIDE 0.9% 1,000 ML IV SCH ×2 (15:02→20:39)
[2018-05-13] MEDS: PANTOPRAZOLE 40 MG TABLET PO SCH (16:41)
[2018-05-13] MEDS: SUCRALFATE 1 GM TAB PO SCH ×2 (16:41→20:37)
[2018-05-13] MEDS: ALPRAZolam 0.25 MG TAB PO PRN (16:42)
[2018-05-13] MEDS: HYDROcodone/APAP 7.5-325MG 1 EACH TAB PO PRN ×2 (16:49→22:50)
[2018-05-13] MEDS ORDERED: SUCRALFATE 1 GM TAB PO SCH (17:30)
[2018-05-13] MEDS: MAGNESIUM OXIDE 400 MG TAB PO SCH (20:37)
[2018-05-13] MEDS: GABAPENTIN 300 MG CAP PO SCH (20:37)
[2018-05-13] MEDS: POTASSIUM CHLORIDE ER 20 MEQ TAB.ER PO SCH (20:37)
[2018-05-13] MEDS: SENNOSIDES-DOCUSATE SODIUM 1 EACH TAB PO SCH (20:37)
[2018-05-13] MEDS ORDERED: PANTOPRAZOLE 40 MG TABLET PO SCH (21:00)
[2018-05-13] MEDS: hydrOXYzine PAMOATE 25 MG CAP PO PRN (22:50)
--- NOTE | 2018-05-14 00:23 | P.CONS ---
History of Present Illness - Reason for Consult Consult date: 05/13/18 - Chief Complaint Left knee pain - History of Present Illness 58-year-old male who has a history of degenerative joint disease when or what left total knee arthroplasty in 2014. He had advanced degenerative joint disease and it was affecting his quality of life. Between that time in February 2018 he had ongoing significant medical difficulties related to his alcoholism and tobacco use and eventually the left knee failed and had evidence of infection. The patient consequently required hospitalization for removal of the total knee arthroplasty and placement of an antibiotic spacer. This hospitalization was very complicated in that he developed alcohol withdrawal and required stay in intensive care unit where he was treated for his delirium tremens as well as a sepsis from his infected left total knee arthroplasty. He was treated possible for many days and eventually was transferred [facility] for his antibiotic therapy and rehab. At the time of the consult I reviewed records, contacted my office for there was no evidence of any interactions with the office. The patient presents for the extraction of the antibiotic spacer with potential reimplantation. However the time of surgery there is evidence of ongoing active inflammation in the spacer was replaced with another antibiotic spacer. With this the infectious diseases consultation was requested. The patient is calm and comfortable at this point in time. Relates that he is still smoking. He's had weight loss while he has been at the rehab facility and then discharged to his home. He does relate that he is no longer drinking alcohol. He has expected postoperative pain but no other complaints. Review of Systems HEENT:Denies headache or acute visual change. Denies sinus or mouth discomforts. Denies neck stiffness or pain. Denies significant oral cavity pain. Denies difficulty on swallowing. Lungs: Denies significant shortness of breath, cough, sputum production, or hemoptysis. Cardiovascular: Denies significant shortness of breath, chest pain, chest wall pain, orthopnea, dyspnea on exertion, syncope Gastrointestinal:Denies nausea, vomiting, diarrhea, constipation, hematemesis, melena, hematochezia. No no significant change of bowel habit noticed. Musculoskeletal: Complains of left knee pain no other acute changes Skin: Denies new rash or lesions. No new ulcers or wounds are related.. Neuro: Denies headache or visual change. Denies any new onset weakness or difficulty with ambulation. Denies falls or seizures. Psychiatric:Denies anxiety or depression. Endocrine: Does have some fatigue and has lost weight since his last hospital stay Past Medical History Past Medical History: COPD, Deep Vein Thrombosis (DVT), GERD/Reflux, Osteoarthritis (OA), Pulmonary Embolus (PE), Seizure Disorder, Syncope Additional Past Medical History / Comment(s): LAST SEIZURE 3 YRS AGO., EMPHYSEMA & COPD- STATES OXYGEN PRN AT NIGHT.,HX OF RESPIRATORY FAILURE, HX OF HEAVY ALCOHOL USE., HX OF FALLS, RIB FX., DIVERTICULOSIS, SMALL BOWEL OBST DUE TO INCARCERATED RIGHT INGUINAL HERNIA., PAIN IN HEELS., STATES INFECTION IN LEFT KNEE AND WAS RECEIVING IV ANTIBIOTIC THRU PICC LINE AT [facility] - DISCHARGED 04/13/18., USING WHEELCHAIR. History of Any Multi-Drug Resistant Organisms: MRSA Year Discovered:: 03/01/18 MDRO Source:: KNEE Past Surgical History: Appendectomy, Heart Catheterization, Hernia Repair, Joint Replacement, Orthopedic Surgery, Tonsillectomy Additional Past Surgical History / Comment(s): Colonoscopies and polypectomies, 10/21/15 cardiac cath, Right inguinal hernia x3, Left inguinal hernia x1., bilateral knee arthroscopies., Felipe Total Knees, hardware removed left knee. " had blood clots removed from lungs at [facility]. Past Anesthesia/Blood Transfusion Reactions: No Reported Reaction Past Psychological History: Anxiety, Depression Additional Psychological History / Comment(s): . Lives independently. Elderly mother. Significant other with health concerns. Ongoing tobacco use. Relates no alcohol use since his last hospital stay. Smoking Status: Heavy tobacco smoker Past Alcohol Use History: Daily, Heavy Additional Past Alcohol Use History / Comment(s): STATES HX OF HEAVY ALCOHOL USE , VODKA AND BEER. STATES NO ALCOHOL FOR 2 MONTHS. SMOKES 1 PPD., SMOKING SINCE 14 YEARS OLD. Past Drug Use History: None Reported Additional Drug Use History / Comment(s): Pt states in the past he had used cocaine but none for 20years. He denies ever abusing prescription drugs. - Past Family History Father Family Medical History: Coronary Artery Disease (CAD), Myocardial Infarction (NE ) Additional Family Medical History / Comment(s): Father of a NE at the age of 73 yrs. Mother Family Medical History: Cancer Additional Family Medical History / Comment(s): BREAST CA Medications and Allergies Home Medications and Allergies Comment(s): Current Medications Hydrocodone Bitart/Acetaminophen ([place] 7.5-325) 1 each PO Q6H PRN PRN Reason: Pain Scale 1 to 5 Hydrocodone Bitart/Acetaminophen ([place] 7.5-325) 2 each PO Q6H PRN PRN Reason: Pain Scale 6 to 10 Last Admin: 05/13/18 22:50 Dose: 2 each Albuterol Sulfate (Ventolin Nebulized) 2.5 mg INHALATION RT-Q4H PRN PRN Reason: Shortness Of Breath Alprazolam (Xanax) 0.25 mg PO BID PRN PRN Reason: Anxiety Last Admin: 05/13/18 16:42 Dose: 0.25 mg Bisacodyl (Dulcolax) 10 mg RECTAL DAILY PRN PRN Reason: Constipation Diazepam (Valium) 2.5 mg PO Q8HR PRN PRN Reason: Mild Spasms Gabapentin (Neurontin) 300 mg PO BID [facility] Last Admin: 05/13/18 20:37 Dose: 300 mg Hydromorphone HCl (Dilaudid) 0.5 mg IVP Q5M PRN PRN Reason: Pain Control Stop: 05/14/18 05:49 Hydromorphone HCl (Dilaudid) 0.25 mg IVP Q3HR PRN PRN Reason: Pain Scale 1 to 3 Hydromorphone HCl (Dilaudid) 0.5 mg IVP Q3HR PRN PRN Reason: Pain Scale 4 to 6 Hydromorphone HCl (Dilaudid) 1 mg IVP Q3HR PRN PRN Reason: Pain Scale 7 to 10 Last Admin: 05/13/18 19:41 Dose: 1 mg Hydroxyzine Pamoate (Vistaril) 25 mg PO Q4HR PRN PRN Reason: Nausea, Anxiety, Pain Control Last Admin: 05/13/18 22:50 Dose: 25 mg Lactated Ringer's (Lactated Ringers) 1,000 mls @ 20 mls/hr IV .Q24H [facility] Last Admin: 05/13/18 06:22 Dose: 1,000 mls Sodium Chloride (Saline 0.9%) 1,000 mls @ 65 mls/hr IV .[id number] [facility] Last Admin: 05/13/18 20:39 Dose: 65 mls/hr Magnesium Hydroxide (Milk Of Magnesia) 2,400 mg PO DAILY PRN PRN Reason: Constipation Magnesium Oxide (Mag-Ox) 400 mg PO BID [facility] Last Admin: 05/13/18 20:37 Dose: 400 mg Midazolam HCl (Versed Pf) 2 mg IV ONCE PRN PRN Reason: Anxiety Stop: 05/14/18 05:49 Multivitamins (Theragran) 1 each PO 1200 ALVA Naloxone HCl (Narcan) 0.2 mg IV Q2M PRN PRN Reason: Opioid Reversal Nicotine (Habitrol 14mg/24hr Patch) 1 patch TRANSDERM DAILY [facility] Ondansetron HCl (Zofran) 4 mg IVP Q8HR PRN PRN Reason: Nausea And Vomiting Pantoprazole Sodium (Protonix) 40 mg PO AC-BID [facility] Last Admin: 05/13/18 16:41 Dose: 40 mg Potassium Chloride (K-Dur 20) 20 meq PO BID [facility] Last Admin: 05/13/18 20:37 Dose: 20 meq Rivaroxaban (Xarelto) 20 mg PO DAILY [facility] Senna/Docusate Sodium (Senokot-S) 2 each PO HS [facility] Last Admin: 05/13/18 20:37 Dose: 2 each Sodium Biphosphate/Sodium Phosphate (Fleet Adult) 133 ml RECTAL DAILY PRN PRN Reason: Constipation Sucralfate (Carafate) 1 gm PO QID [facility] Last Admin: 05/13/18 20:37 Dose: 1 gm Home Medications Medication Instructions Recorded Confirmed Type Albuterol Nebulized [Ventolin 2.5 mg INHALATION RT-Q4H PRN 01/28/18 05/13/18 History Nebulized] Multivitamins, Thera [Multivitamin 1 tab PO DAILY 02/25/18 05/13/18 History (formulary)] Gabapentin [Neurontin] 300 mg PO BID 05/06/18 05/13/18 History HYDROcodone/APAP 7.5-325MG [[place] 1 tab PO Q4-6H PRN 05/06/18 05/13/18 History 7.5-325] Magnesium (Unknown Dose) 1 tab PO DAILY 05/06/18 05/13/18 History Pantoprazole [Protonix] 40 mg PO HS 05/06/18 05/13/18 History Potassium (Unknown Dose) 1 tab PO BID 05/06/18 05/13/18 History Rivaroxaban [Xarelto] 20 mg PO DAILY 05/06/18 05/13/18 History Loperamide [Imodium] 2 mg PO QID PRN 05/09/18 05/13/18 History DAPTOmycin [Cubicin] 500 mg IV DAILY #40 bag 05/13/18 Rx HYDROcodone/APAP 7.5-325MG [[place] 1 - 2 tab PO Q4-6H PRN #84 tab 05/13/18 Rx 7.5-325] Sennosides [Senokot] 1 tab PO BID #60 tablet 05/13/18 Rx Allergies Allergy/AdvReac Type Severity Reaction Status Date / Time tramadol AdvReac Mild Itching Verified 05/13/18 06:06 Physical Exam Vitals: Vital Signs Temp Pulse Pulse Resp BP Pulse Ox 05/13/18 20:00 81 18 05/13/18 19:56 97.5 F L 81 18 118/75 95 05/13/18 16:50 16 05/13/18 12:42 16 05/13/18 12:00 80 105/70 05/13/18 11:45 88 104/68 05/13/18 11:30 83 104/69 05/13/18 11:15 83 104/70 05/13/18 11:00 80 115/79 05/13/18 10:45 83 113/78 05/13/18 10:30 80 113/74 05/13/18 10:15 78 106/73 05/13/18 10:00 98.8 F 79 16 107/71 94 L 05/13/18 09:45 78 16 102/76 97 05/13/18 09:30 80 16 103/71 96 05/13/18 09:15 63 14 112/68 100 05/13/18 09:10 96.6 F L 79 16 114/73 96 05/13/18 06:09 97.8 F 95 16 143/86 98 Intake and Output 05/13/18 05/13/18 05/14/18 14:59 22:59 06:59 Intake Total 1018 118 Output Total 100 200 Balance 918 -82 Intake: IV 900 Oral 118 118 Output: Urine 200 Estimated Blood Loss 100 Other: Voiding Method Urinal # Voids 0 Weight 72.575 kg 58-year-old male with some complaints of left knee pain after surgery HEENT: Anicteric conjunctiva are pink and moist nasal mucosa grossly intact without significant lesions, there is no thrush. Neck: The neck is supple without significant lymphadenopathy or thyromegaly. Lungs: Symmetrical air entry is noted expiratory wheezes are scattered no nina bronchial sounds no dullness or egophony Heart: Regular rate and rhythm with an audible S1-S2, no S3 no S4. There is no significant murmur click or rub, PMI was nondisplaced. Abdomen: Positive bowel sounds soft and nontender without palpable masses or organomegaly. There was no guarding or rebound. Extremities: The upper extremities have excellent pulses they are symmetric, no significant petechiae or telangiectasia. No splinter hemorrhages were noted. The right lower extremity without acute changes. Left lower extremity reveals evidence of the recent surgical intervention to the left knee given the short temperance and surgery the dressing is not removed. There is no significant swelling distal ureter proximal to the surgical site. No lymphadenopathy. Neuro: Awake alert oriented to person place and time. There are no acute new gross focal sensory motor deficits. Results Labs: Microbiology - Last 24 Hours (Table) 05/13/18 07:50 Gram Stain - Preliminary Knee - Left Wound Culture - Preliminary 05/13/18 07:55 Anaerobic Culture - Preliminary Knee - Left 05/13/18 07:50 Anaerobic Culture - Preliminary Knee - Left 05/13/18 07:55 Wound Culture - Preliminary Knee - Left Microbiology 05/13/18 07:50 Knee - Left Gram Stain - Preliminary 05/13/18 07:50 Knee - Left Wound Culture - Preliminary 05/13/18 07:55 Knee - Left Anaerobic Culture - Preliminary 05/13/18 07:50 Knee - Left Anaerobic Culture - Preliminary 05/13/18 07:55 Knee - Left Wound Culture - Preliminary Assessment and Plan (1) Status post total left knee replacement Narrative/Plan: 58-year-old male presents to Hospital for the revision of the antibiotic spacer to the left total knee arthroplasty site. The patient completed his course of antibiotic therapy and was in the home setting after his rehab stay and antibiotic therapy. Is no review of the office records shows no interaction after his discharge from the hospital last time. There is evidence of ongoing active infection at the site and consequently a new antibiotic spacer was placed. He apparently was treated with a full course of vancomycin therapy and now would be a failure. With determine the best possible option likely will use daptomycin since he has potential of doing this as an outpatient to receive his intravenous antibiotic therapy. He does not desire to go back to the extended care facility. We discussed importance of smoking cessation for healing especially an orthopedic cases . Adequate protein intake and a multivitamin requested He relates he is no longer drinking alcohol and is strongly advised to not restart given his current level of illness. We'll need to have IV access placed as he gets ready for his discharge plan. We have asked for the care management team to evaluate the possibility of daptomycin the outpatient setting. Current Visit: No Status: Acute Code(s): Z96.652 - PRESENCE OF LEFT ARTIFICIAL KNEE JOINT SNOMED Code(s): [id number]
[2018-05-14] MEDS: HYDROcodone/APAP 7.5-325MG 1 EACH TAB PO PRN ×4 (03:55→22:11)
[2018-05-14] MEDS: LACTATED RINGERS 1,000 ML IV SCH (06:20)
[2018-05-14] MEDS: PANTOPRAZOLE 40 MG TABLET PO SCH ×2 (07:25→17:38)
[2018-05-14] MEDS: HYDROmorphone 0.5 MG/0.5 ML SYRINGE IVP PRN ×4 (07:31→21:02)
[2018-05-14 07:41] LABS: Albumin 2.2 g/dL (3.5-5.0); Potassium 5.1 mmol/L (3.5-5.1); Total Bilirubin 0.1 mg/dL (0.2-1.3); Total Protein 4.9 g/dL (6.3-8.2)
[2018-05-14 07:48] LABS: Basophils % (A) 0 %; Eosinophils % (A) 0 %; HCT 33.2 % (39.0-53.0); HGB 10.2 gm/dL (13.0-17.5); Hypochromasia Moderate; Lymphocytes # (A) 0.9 k/uL (1.0-4.8); Lymphocytes % (A) 5 %; MCH 29.9 pg (25.0-35.0); MCHC 30.6 g/dL (31.0-37.0); MCV 97.6 fL (80.0-100.0); Mean Platelet Volume 7.1; Monocytes # (A) 0.7 k/uL (0-1.0); Monocytes % (A) 4 %; Neutrophils # (A) 17.1 k/uL (1.3-7.7); Neutrophils % (A) 91 %; Platelet Count 483 k/uL (150-450); RDW 14.5 % (11.5-15.5); WBC 18.9 k/uL (3.8-10.6)
[2018-05-14 07:55] LABS: C Reactive Protein 141.9 mg/L (<10.0)
[2018-05-14] MEDS: ALBUTEROL NEBULIZED 2.5 MG/3 ML INHALATION PRN ×3 (09:22→17:05)
[2018-05-14] MEDS: MAGNESIUM OXIDE 400 MG TAB PO SCH ×2 (10:38→21:02)
[2018-05-14] MEDS: SUCRALFATE 1 GM TAB PO SCH ×4 (10:38→21:02)
[2018-05-14] MEDS: GABAPENTIN 300 MG CAP PO SCH ×2 (10:38→21:02)
[2018-05-14] MEDS: MULTIVITAMINS, THERA 1 EACH TAB PO SCH (10:38)
[2018-05-14] MEDS: RIVAROXABAN 20 MG TAB PO SCH (10:38)
[2018-05-14] MEDS: NICOTINE 14MG/24HR PATCH TRANSDERM SCH (10:38)
[2018-05-14] MEDS: POTASSIUM CHLORIDE ER 20 MEQ TAB.ER PO SCH ×2 (10:39→21:02)
--- NOTE | 2018-05-14 11:37 | P.PN ---
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 He completed antibiotic treatment vancomycin. And he had a stage I revision of the left total knee arthroplasty with removal of components and placement of antibiotic spacer in February 2018. Patient went to retirement. He completed antibiotic treatment. He presented back to the hospital for possible stage II revision of the left total knee arthroplasty. However, they had to do a repeat stage I revision of the left total knee with removal of prior antibiotic spacer and placement of new antibiotic spacer for persistent infection. Patient is currently on IV Kefzol. Infectious disease has been consulted. Cultures have been obtained. Pain is controlled. Patient denies any chest pain or shortness of breath. Denies any nausea or vomiting. Denies any bowel movement changes or urinary symptoms. Denies any fever chills or sweats. Also note that patient does have a past medical history of alcohol abuse. He states that it's been over 3 months since she's had alcoholic beverage. 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 At that time Xarelto was discontinued due to GI bleed with office ground emesis. Secondary to Linear erosions or ulcerations in the mid distal esophagus consistence with reflux esophagitis on EGD. And he was maintained on Protonix. But apparently patient has been restarted on Xarelto on the outpatient setting. He also has a history of iron deficiency anemia. We have been consulted for medical management. Medications have been reviewed and reconciled. On 05/14/2018 patient is alert and oriented 3 in no apparent distress, there is no fever or chills no headache or dizziness no chest pain no shortness of breath no cough no nausea or vomiting no abdominal pain no diarrhea and no urinary symptoms, he is complaining of pain in his left knee, receiving pain medication with reasonable control. Objective - Vital Signs Vital signs: Vital Signs Temp 98 F 05/14/18 07:00 Pulse 96 05/14/18 09:36 Resp 16 05/14/18 07:39 BP 108/72 05/14/18 07:00 Pulse Ox 94 L 05/14/18 09:26 Intake & Output 05/13/18 05/14/18 05/14/18 18:59 06:59 18:59 Intake Total 1136 Output Total 300 400 Balance 836 -400 Weight 72.575 kg Intake: IV 900 Oral 236 Output: Urine 200 400 Estimated Blood Loss 100 Other: Voiding Method Urinal Urinal # Voids 0 2 - Exam Head normocephalic and atraumatic Neck supple no JVD no goiter Lungs clear to auscultation bilaterally no wheezing or crackles Heart regular rate and rhythm S1-S2, no rub or gallop Abdomen is soft nontender nondistended positive bowel sounds no hepatosplenomegaly Extremities no edema. Left knee is Thor wrapped. Patient has full sensation in his left toes. Neuro alert and orientated to 3 no gross focal deficit - Labs CBC & Chem 7: 05/14/18 06:51 05/14/18 06:51 Labs: Abnormal Lab Results - Last 24 Hours (Table) 05/14/18 05/14/18 Range/Units 06:51 06:51 WBC 18.9 H (3.8-10.6) k/uL RBC 3.40 L (4.30-5.90) m/uL Hgb 10.2 L (13.0-17.5) gm/dL Hct 33.2 L (39.0-53.0) % MCHC 30.6 L (31.0-37.0) g/dL Plt Count 483 H (150-450) k/uL Neutrophils # 17.1 H (1.3-7.7) k/uL Lymphocytes # 0.9 L (1.0-4.8) k/uL Sodium 132 L (137-145) mmol/L Glucose 141 H (74-99) mg/dL Total Bilirubin 0.1 L (0.2-1.3) mg/dL AST 11 L (17-59) U/L ALT 13 L (21-72) U/L Creatine Kinase 28 L (55-170) U/L C-Reactive Protein 141.9 H (<10.0) mg/L Total Protein 4.9 L (6.3-8.2) g/dL Albumin 2.2 L (3.5-5.0) g/dL Microbiology - Last 24 Hours (Table) 05/13/18 07:55 Gram Stain - Preliminary Knee - Left Wound Culture - Preliminary 05/13/18 07:50 Gram Stain - Preliminary Knee - Left Wound Culture - Preliminary 05/13/18 07:55 Anaerobic Culture - Preliminary Knee - Left 05/13/18 07:50 Anaerobic Culture - Preliminary Knee - Left Assessment and Plan Plan: 1. Persistent infection of the left knee status post repeat stage I revision left total knee with removal of prior antibiotic spacer and placement of new antibiotic spacer. Infectious disease has been placed on consult. Continue antibiotics. Cultures have been obtained. patient did complete 8 weeks of vancomycin IV in the outpatient setting 2. history of PE and DVT status post [place] filter in February 2018 due to GI bleeding, patient is resumed on Xarelto 20 mg daily Will monitor hemoglobin closely 3. History of GI bleed due to linear erosions or ulcerations in the mid distal esophagus consistent with reflux esophagitis continue Protonix. 4. History of alcohol abuse. Patient has not had alcoholic beverage in 3 months
--- NOTE | 2018-05-14 11:44 | P.PN ---
Progress Note - Text Progress Note Date: 05/14/18 Patient is a very pleasant 58-year-old male who is examined at bedside for follow-up evaluation for his left knee. He is status post repeat stage I revision of left total knee with removal of prior antibiotic spacer with placement of new antibiotic spacer for persistent infection. He states his pain in his left knee has been well-controlled. He continues to be nonweightbearing on the left lower extremity but is able to weight-bear as tolerated per orthopedics. He states due to his persistent infection he has been relying on a wheelchair over the past 3 months. He is encouraged to work with physical therapy to increase mobility and ambulation. He is currently being seen by medicine and Dr. Ren infectious disease. He is currently on Xarelto per medicine. 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 He also has a history of previous GI bleed. He has an IVC filter in place. Previously he had a PICC line in place which he received antibiotic medication for his left knee infection. He was discharged to [facility] rehabilitation facility. He states at this time he would like to try to avoid be discharged to rehabilitation facility given the cost. He states he was seen and examined by Dr. Ren yesterday who will be working to see if there is an appropriate antibiotic the patient may receive take in the outpatient setting that would not require him to be in a rehabilitation facility at discharge. Cultures of the left knee were taken during surgical intervention and these results are pending. Physical Exam: Status post surgical day number 1 Patient is awake, alert, and oriented 3 Vital signs stable Good chest excursion with deep inspiration and expiration No signs or symptoms of DVT; no calf pain Dressing over the left knee is clean, dry, and intact; no erythema, purulence, or signs of infection No active draining from the incision site Patient has full foot and ankle motion without difficulty bilateral lower extremities Dorsiflexion, plantar flexion, and extensor hallucis longus positive sustained bilaterally Neurovascular status left lower extremity intact Capillary refill lower extremity is bilaterally less than 2 seconds Pertinent studies: Left knee Gram stain: Preliminary Left knee wound culture: Preliminary Left knee anaerobic culture: Preliminary Assessment: Status post stage I revision of left total knee with removal of prior antibiotic spacer with placement of new antibiotic spacer for persistent infection Left knee pain History of DVT and pulmonary embolism History of GI bleed Plan: 1. Patient is encouraged to continue working with physical therapy to increase mobility and ambulation. He may weight-bear as tolerated on the left lower extremity with the aid of a walker. May continue with daily dressing changes as needed over the left knee. Patient may shower if the incision site over the left knee remains clean, dry, and intact. [place] are currently intact and will be planned to be removed in approximately 14 days. We will continue to follow patient closely. We will plan for discharge once patient is cleared by medicine and infectious disease. At that time patient will plan to follow with Dr. Bassem Traylor in 2 weeks for further evaluation at [facility]. 2. Patient will continue to be followed by Dr. Ren in infectious disease and will determine appropriate plan for antibiotic treatment in the outpatient setting; culture results are currently pending 3. Patient will continue to be seen and examined by medicine for his other medical diagnoses including history of DVT and pulmonary embolism with history of GI bleed; patient currently on Xarelto as prescribed by medicine 4. We will continue to follow patient closely
[2018-05-14] MEDS: ALPRAZolam 0.25 MG TAB PO PRN ×2 (13:12→22:45)
[2018-05-14] MEDS: SODIUM CHLORIDE 0.9% 1,000 ML IV SCH (15:36)
[2018-05-14] MEDS: SENNOSIDES-DOCUSATE SODIUM 1 EACH TAB PO SCH (21:02)
[2018-05-15] MEDS: SODIUM CHLORIDE 0.9% 1,000 ML IV SCH ×2 (02:01→22:26)
[2018-05-15] MEDS: HYDROmorphone 0.5 MG/0.5 ML SYRINGE IVP PRN ×2 (02:04→05:42)
[2018-05-15] MEDS: LACTATED RINGERS 1,000 ML IV SCH (02:25)
[2018-05-15] MEDS: HYDROcodone/APAP 7.5-325MG 1 EACH TAB PO PRN ×6 (03:58→23:56)
[2018-05-15 06:58] LABS: Basophils % (A) 0 %; Eosinophils # (A) 0.1 k/uL (0-0.7); Eosinophils % (A) 1 %; HCT 30.8 % (39.0-53.0); HGB 9.1 gm/dL (13.0-17.5); Hypochromasia Marked; Lymphocytes # (A) 1.8 k/uL (1.0-4.8); Lymphocytes % (A) 10 %; MCH 28.7 pg (25.0-35.0); MCHC 29.5 g/dL (31.0-37.0); MCV 97.4 fL (80.0-100.0); Mean Platelet Volume 6.6; Monocytes # (A) 0.9 k/uL (0-1.0); Monocytes % (A) 5 %; Neutrophils # (A) 13.9 k/uL (1.3-7.7); Neutrophils % (A) 82 %; Platelet Count 552 k/uL (150-450); RBC 3.16 m/uL (4.30-5.90); RDW 14.7 % (11.5-15.5); WBC 16.8 k/uL (3.8-10.6)
[2018-05-15 07:10] LABS: Albumin 2.1 g/dL (3.5-5.0); Calcium 9.5 mg/dL (8.4-10.2); Potassium 4.4 mmol/L (3.5-5.1); Total Bilirubin 0.2 mg/dL (0.2-1.3); Total Protein 4.7 g/dL (6.3-8.2)
[2018-05-15] MEDS: DIAZEPAM 5 MG TAB PO PRN (08:23)
[2018-05-15] MEDS: POTASSIUM CHLORIDE ER 20 MEQ TAB.ER PO SCH ×2 (08:24→20:39)
[2018-05-15] MEDS: RIVAROXABAN 20 MG TAB PO SCH (08:24)
[2018-05-15] MEDS: MAGNESIUM OXIDE 400 MG TAB PO SCH ×2 (08:24→20:39)
[2018-05-15] MEDS: MULTIVITAMINS, THERA 1 EACH TAB PO SCH (08:24)
[2018-05-15] MEDS: SUCRALFATE 1 GM TAB PO SCH ×4 (08:24→22:25)
[2018-05-15] MEDS: GABAPENTIN 300 MG CAP PO SCH ×2 (08:24→20:39)
[2018-05-15] MEDS: PANTOPRAZOLE 40 MG TABLET PO SCH ×2 (08:24→17:34)
[2018-05-15] MEDS: NICOTINE 14MG/24HR PATCH TRANSDERM SCH (08:27)
[2018-05-15] MEDS: hydrOXYzine PAMOATE 25 MG CAP PO PRN ×5 (10:00→23:56)
--- NOTE | 2018-05-15 10:43 | P.PN ---
Progress Note - Text Progress Note Date: 05/15/18 Patient is a very pleasant 58-year-old male who is examined at bedside for follow-up evaluation for his left knee. He is status post repeat stage I revision of left total knee with removal of prior antibiotic spacer with placement of new antibiotic spacer for persistent infection. He has not had any significant changes compared to yesterday. He states his pain in his left knee has been adequately controlled. He said some exacerbation of pain in his left knee but states it has been controlled with medication. He continues to be nonweightbearing on the left lower extremity but is able to weight-bear as tolerated per orthopedics. He states due to his persistent infection he has been relying on a wheelchair over the past 3 months. He is encouraged to work with physical therapy to increase mobility and ambulation. He is currently being seen by medicine and Dr. Ren infectious disease. Patient states he was not seen by Dr. Ren yesterday. He is currently on Xarelto per medicine. 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 He also has a history of previous GI bleed. He has an IVC filter in place. Previously he had a PICC line in place which he received antibiotic medication for his left knee infection. He was discharged to [facility] rehabilitation facility. He states at this time he would like to try to avoid be discharged to rehabilitation facility given the cost. He states he was seen and examined by Dr. Ren yesterday who will be working to see if there is an appropriate antibiotic the patient may receive take in the outpatient setting that would not require him to be in a rehabilitation facility at discharge. Cultures of the left knee were taken during surgical intervention and these results are pending. Physical Exam: Status post surgical day number 1 Patient is awake, alert, and oriented 3 Vital signs stable Good chest excursion with deep inspiration and expiration No signs or symptoms of DVT; no calf pain Dressing over the left knee is clean, dry, and intact; no erythema, purulence, or signs of infection No active draining from the incision site Patient has full foot and ankle motion without difficulty bilateral lower extremities Dorsiflexion, plantar flexion, and extensor hallucis longus positive sustained bilaterally Neurovascular status left lower extremity intact Capillary refill lower extremity is bilaterally less than 2 seconds Pertinent studies: CBC taken on 05/15/2018: WBC 16.8 RBC 3.16 Hemoglobin 9.1 Hematocrit 30.8 Platelet count 552 Neutrophils 13.9 Left knee Gram stain: Preliminary Left knee wound culture: Preliminary Left knee anaerobic culture: Preliminary Assessment: Status post stage I revision of left total knee with removal of prior antibiotic spacer with placement of new antibiotic spacer for persistent infection Left knee pain History of DVT and pulmonary embolism History of GI bleed Plan: 1. We will continue with the plan as previously set forth. Patient is encouraged to continue working with physical therapy to increase mobility and ambulation. He may weight-bear as tolerated on the left lower extremity with the aid of a walker. May continue with daily dressing changes as needed over the left knee. Patient may shower if the incision site over the left knee remains clean, dry, and intact. [place] are currently intact and will be planned to be removed in approximately 14 days. We will continue to follow patient closely. We will plan for discharge once patient is cleared by medicine and infectious disease. At that time patient will plan to follow with Dr. Bassme Traylor in 2 weeks for further evaluation at [facility]. 2. Patient will continue to be followed by Dr. Ren in infectious disease and will determine appropriate plan for antibiotic treatment in the outpatient setting; culture results are currently pending 3. Patient will continue to be seen and examined by medicine for his other medical diagnoses including history of DVT and pulmonary embolism with history of GI bleed; patient currently on Xarelto as prescribed by medicine 4. We will continue to follow patient closely
--- NOTE | 2018-05-15 11:51 | P.PN ---
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 He completed antibiotic treatment vancomycin. And he had a stage I revision of the left total knee arthroplasty with removal of components and placement of antibiotic spacer in February 2018. Patient went to alf. He completed antibiotic treatment. He presented back to the hospital for possible stage II revision of the left total knee arthroplasty. However, they had to do a repeat stage I revision of the left total knee with removal of prior antibiotic spacer and placement of new antibiotic spacer for persistent infection. Patient is currently on IV Kefzol. Infectious disease has been consulted. Cultures have been obtained. Pain is controlled. Patient denies any chest pain or shortness of breath. Denies any nausea or vomiting. Denies any bowel movement changes or urinary symptoms. Denies any fever chills or sweats. Also note that patient does have a past medical history of alcohol abuse. He states that it's been over 3 months since she's had alcoholic beverage. Patient does have a history of PE and DVT and had undergone [place] filter placement in February 2018. At that time Xarelto was discontinued due to GI bleed with office ground emesis. Secondary to Linear erosions or ulcerations in the mid distal esophagus consistence with reflux esophagitis on EGD. And he was maintained on Protonix. But apparently patient has been restarted on Xarelto on the outpatient setting. He also has a history of iron deficiency anemia. We have been consulted for medical management. Medications have been reviewed and reconciled. On 05/14/2018 patient is alert and oriented 3 in no apparent distress, there is no fever or chills no headache or dizziness no chest pain no shortness of breath no cough no nausea or vomiting no abdominal pain no diarrhea and no urinary symptoms, he is complaining of pain in his left knee, receiving pain medication with reasonable control. On 05/15/2018 patient is still complaining of left lower extremity pain otherwise he denies any complaints there is no fever or chills no headache or dizziness no chest pain no shortness of breath no cough no nausea or vomiting no abdominal pain no diarrhea and no urinary symptoms. Objective - Vital Signs Vital signs: Vital Signs Temp 98.1 F 05/15/18 07:00 Pulse 84 05/15/18 07:00 Resp 18 05/15/18 07:00 BP 123/80 05/15/18 07:00 Pulse Ox 98 05/15/18 07:00 Intake & Output 05/14/18 05/15/18 05/15/18 18:59 06:59 18:59 Intake Total 1000 910 Output Total 1500 Balance 1000 -590 Intake: Intake, IV Titration 1000 910 Amount Sodium Chloride 0.9% 1, 1000 910 000 ml @ 65 mls/hr IV . [id number] [facility]VA Rx#:[id number] Output: Urine 1500 Other: Voiding Method Urinal Urinal Urinal # Voids 1 - Exam Head normocephalic and atraumatic Neck supple no JVD no goiter Lungs clear to auscultation bilaterally no wheezing or crackles Heart regular rate and rhythm S1-S2, no rub or gallop Abdomen is soft nontender nondistended positive bowel sounds no hepatosplenomegaly Extremities no edema. Left knee is Thor wrapped. Patient has full sensation in his left toes. Neuro alert and orientated to 3 no gross focal deficit - Labs CBC & Chem 7: 05/15/18 06:26 05/15/18 06:26 Labs: Abnormal Lab Results - Last 24 Hours (Table) 05/14/18 05/15/18 05/15/18 Range/Units 06:51 06:26 06:26 WBC 16.8 H (3.8-10.6) k/uL RBC 3.16 L (4.30-5.90) m/uL Hgb 9.1 L (13.0-17.5) gm/dL Hct 30.8 L (39.0-53.0) % MCHC 29.5 L (31.0-37.0) g/dL Plt Count 552 H (150-450) k/uL Neutrophils # 13.9 H (1.3-7.7) k/uL ESR 36 H (0-15) mm/hr Chloride 108 H (98-107) mmol/L AST 15 L (17-59) U/L ALT 14 L (21-72) U/L Total Protein 4.7 L (6.3-8.2) g/dL Albumin 2.1 L (3.5-5.0) g/dL Assessment and Plan Plan: 1. Persistent infection of the left knee status post repeat stage I revision left total knee with removal of prior antibiotic spacer and placement of new antibiotic spacer. Infectious disease has been placed on consult. Continue antibiotics. Cultures have been obtained. patient did complete 8 weeks of vancomycin IV in the outpatient setting 2. history of PE and DVT status post [place] filter in February 2018 due to GI bleeding, patient is resumed on Xarelto 20 mg daily Will monitor hemoglobin closely 3. History of GI bleed due to linear erosions or ulcerations in the mid distal esophagus consistent with reflux esophagitis continue Protonix. 4. History of alcohol abuse. Patient has not had alcoholic beverage in 3 months At this time will proceed with PICC line placement, continue was current antibiotic recheck labs in a.m.
[2018-05-15] MEDS: DAPTOmycin 500 MG in SODIUM CHLORIDE 0.9% 50 ML IVPB SCH (16:53)
[2018-05-15] MEDS: ALPRAZolam 0.25 MG TAB PO PRN (19:43)
[2018-05-15] MEDS: SENNOSIDES-DOCUSATE SODIUM 1 EACH TAB PO SCH (20:43)
--- NOTE | 2018-05-16 00:37 | CONS ---
CONSULTATION DATE OF CONSULT: 05/15/2018. REASON FOR FOLLOWUP: Antibiotic recommendation. HISTORY OF PRESENT ILLNESS: The patient is a 58-year-old male with a past medical history significant for a left knee septic arthritis secondary to the MRSA, for which the patient has received a 6-week course of IV vancomycin with removal of previous left knee surgery with placement of antibiotic spacer. The patient said he completed his vancomycin therapy on 04/13/2018 and was off antibiotic therapy for almost a month. The patient presented to the hospital on 05/13 for placement of a new knee, however, at the time of surgery was noticed to have evidence of persistent inflammation. Hence, the patient got a new antibiotic spacer. Apparently the patient is supposed to be started on daptomycin, however, I was contacted by the patient's nurse that he is not on antibiotics and to evaluate the patient in absence of Dr. Ren. The patient is currently afebrile. He did have pain to the left knee area especially with walking or hanging down. Intensity 7 to 8 out of 10. The patient denies having any chest pain or shortness of breath or cough. No abdominal pain. No diarrhea. REVIEW OF SYSTEMS: Positive points have been mentioned in HPI, other systems have been negative. PAST MEDICAL AND SURGICAL HISTORY: Reviewed. No change in medications. PHYSICAL EXAMINATION: Blood pressure 104/71, pulse of 80, temperature 98.3, he is 99% on room air. GENERAL DESCRIPTION: A middle-aged male up in the chair in no distress. HEENT: Pallor. No scleral icterus. Oral mucosa is dry. No pharyngeal erythema or thrush. NECK: Trachea central. No thyromegaly. LUNGS: Unlabored breathing. Clear to auscultation anteriorly. No wheeze or crackle. HEART: S1, S2. Regular rate and rhythm. ABDOMEN: Soft. EXTREMITIES: No edema of the feet. Left knee is currently dressed. No significant redness with swelling or any drainage. NEUROLOGIC: The patient is awake alert, in no acute distress. LABS: Hemoglobin 9.1, white count 10.8. BUN of 14, creatinine 1.18. Wound cultures MRSA, sensitive to Vancomycin. DIAGNOSTIC IMPRESSION AND PLAN: Patient with MRSA left knee septic arthritis. The patient is status post arthroplasty with antibiotic spacer placement, apparently has failed a course off vancomycin, now status post removal of antibiotic spacer. The patient had placement of new antibiotic spacer. Blood cultures . PLAN: 1. Start the patient on daptomycin IV piggyback daily. 2. Repeat IV antibiotics. 3. We will follow culture and make adjustment in medication if needed. Thank you for this consultation. Will follow the patient along with you. HATTIE / IJN: [id number] /
[2018-05-16] MEDS: hydrOXYzine PAMOATE 25 MG CAP PO PRN ×5 (03:59→19:44)
[2018-05-16] MEDS: HYDROcodone/APAP 7.5-325MG 1 EACH TAB PO PRN ×5 (03:59→19:44)
[2018-05-16] MEDS: DIAZEPAM 5 MG TAB PO PRN (04:50)
[2018-05-16] MEDS: LACTATED RINGERS 1,000 ML IV SCH (06:16)
[2018-05-16] MEDS: PANTOPRAZOLE 40 MG TABLET PO SCH ×2 (07:04→17:56)
[2018-05-16] MEDS: SUCRALFATE 1 GM TAB PO SCH ×4 (07:04→21:46)
[2018-05-16] MEDS: RIVAROXABAN 20 MG TAB PO SCH (09:02)
[2018-05-16] MEDS: NICOTINE 14MG/24HR PATCH TRANSDERM SCH (09:02)
[2018-05-16] MEDS: MULTIVITAMINS, THERA 1 EACH TAB PO SCH (09:03)
[2018-05-16] MEDS: GABAPENTIN 300 MG CAP PO SCH ×2 (09:03→21:45)
[2018-05-16 09:04] LABS: Basophils # (A) 0.1 k/uL (0-0.2); Basophils % (A) 0 %; Eosinophils # (A) 0.5 k/uL (0-0.7); Eosinophils % (A) 4 %; HCT 34.9 % (39.0-53.0); HGB 10.4 gm/dL (13.0-17.5); Hypochromasia Marked; Lymphocytes # (A) 2.5 k/uL (1.0-4.8); Lymphocytes % (A) 18 %; MCH 29.6 pg (25.0-35.0); MCHC 29.9 g/dL (31.0-37.0); Mean Platelet Volume 6.6; Monocytes # (A) 0.8 k/uL (0-1.0); Monocytes % (A) 6 %; Neutrophils # (A) 9.7 k/uL (1.3-7.7); Neutrophils % (A) 71 %; Platelet Count 597 k/uL (150-450); RBC 3.52 m/uL (4.30-5.90); RDW 14.6 % (11.5-15.5); WBC 13.8 k/uL (3.8-10.6)
[2018-05-16 09:06] LABS: Prothrombin Time 10.3 sec (9.0-12.0)
[2018-05-16 09:30] LABS: Albumin 2.3 g/dL (3.5-5.0); Calcium 10.8 mg/dL (8.4-10.2); Potassium 5.5 mmol/L (3.5-5.1); Total Bilirubin 0.2 mg/dL (0.2-1.3); Total Protein 5.2 g/dL (6.3-8.2)
--- NOTE | 2018-05-16 09:45 | P.PN ---
Progress Note - Text Progress Note Date: 05/16/18 Patient is a very pleasant 58-year-old male who is examined at bedside for follow-up evaluation for his left knee. He is status post repeat stage I revision of left total knee with removal of prior antibiotic spacer with placement of new antibiotic spacer for persistent infection. Yesterday his IV in the right upper extremity came out. They had significant difficulty with obtaining a new IV site. There were finally able to obtain a site of the left ring finger. Dr. Holland in medicine has ordered a PICC line to be placed today. Patient was seen and examined yesterday by Dr. Hill and infectious disease. He was started on daptomycin. Culture results came back yesterday as well. Dr. Hill will plan on working to prescribe appropriate antibiotic treatment in the outpatient setting. Due to loss of his IV site for extended period of time, that a lot of the IV was discontinued yesterday. [place] 7.5 mg/ 325 mg was increased to 1-2 tabs every 4 hours for pain control. He states his pain in his left knee has been adequately controlled but has significant difficulty with mobility due to his pain. He states he does have significant pain when the left leg is hanging at the bedside while sitting. He said some exacerbation of pain in his left knee but states it has been controlled with medication. He continues to be nonweightbearing on the left lower extremity but is able to weight-bear as tolerated per orthopedics. He states due to his persistent infection he has been relying on a wheelchair over the past 3 months. He is encouraged to work with physical therapy to increase mobility and ambulation. He is currently on Xarelto per medicine. 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 He also has a history of previous GI bleed. He has an IVC filter in place. Previously he had a PICC line in place which he received antibiotic medication for his left knee infection. He was discharged to [facility] rehabilitation facility. He states again today at this time he would like to try to avoid be discharged to rehabilitation facility given the cost. Cultures of the left knee were taken during surgical intervention and these results were finalized yesterday. Physical Exam: Status post surgical day number 3 Patient is awake, alert, and oriented 3 Vital signs stable Good chest excursion with deep inspiration and expiration No signs or symptoms of DVT; no calf pain Dressing over the left knee is intact with some mild drainage over the top of the incision site; no significant erythema around the knee Some mild draining from the incision site; Patient has full foot and ankle motion without difficulty bilateral lower extremities Dorsiflexion, plantar flexion, and extensor hallucis longus positive sustained bilaterally Neurovascular status left lower extremity intact Capillary refill lower extremity is bilaterally less than 2 seconds Pertinent studies: Left knee Gram stain and culture final: Methicillin resistant staph aureus Left knee Gram stain and culture final: Methicillin resistant staph aureus Assessment: Status post stage I revision of left total knee with removal of prior antibiotic spacer with placement of new antibiotic spacer for persistent infection Left knee wound culture results positive for methicillin resistant staph aureus Left knee pain History of DVT and pulmonary embolism History of GI bleed Plan: 1. We will continue with the plan as previously set forth. Patient is encouraged to continue working with physical therapy to increase mobility and ambulation. He may weight-bear as tolerated on the left lower extremity with the aid of a walker. May continue with daily dressing changes as needed over the left knee. Patient may shower if the incision site over the left knee remains clean, dry, and intact. Timothy are currently intact and will be planned to be removed in approximately 14 days. We will continue to follow patient closely. We will plan for discharge once patient is cleared by medicine and infectious disease. At that time patient will plan to follow with Dr. Bassem Traylor in 2 weeks for further evaluation at [facility]. 2. Patient will continue to be followed by Dr. Ren/Dr. Hill in infectious disease and will determine appropriate plan for antibiotic treatment in the outpatient setting; culture results have been finalized for methicillin resistant staph aureus 3. Patient currently scheduled for PICC line placement today as ordered by medicine 4. Continue pain control with oral [place] 7.5 mg/325 mg 1-2 tabs every 4 hours as needed for pain; Dilaudid has been discontinued 5. Patient will continue to be seen and examined by medicine for his other medical diagnoses including history of DVT and pulmonary embolism with history of GI bleed; patient currently on Xarelto as prescribed by medicine 6. We will continue to follow patient closely; patient will most likely remain in hospital until this coming 05/18/2018, at which time we may plan for discharge if his pain is adequately controlled, he has received PICC line, and appropriate antibiotic regimen has been set forth by infectious disease for the outpatient setting
[2018-05-16] MEDS: POTASSIUM CHLORIDE ER 20 MEQ TAB.ER PO SCH (11:24)
--- NOTE | 2018-05-16 11:41 | CDI ---
Documentation Clarification Form Date: 05/16/2018 From: Aleyda Chawla Email: Admit Date: 05/16/2018 7:52:00 AM Patient Name: Addy Villalpando Visit Number: [id number] Discharge Date: ATTENTION: The Clinical Documentation Specialists (CDI) and [facility] Coding Staff appreciate your assistance in clarifying documentation. Please respond to the clarification below the line at the bottom and electronically sign. The CDI & [facility] Coding staff will review the response and follow-up if needed. Please note: Queries are made part of the Legal Health Record. If you have any questions, please contact the author of this message via ITS. Dr. Benita Harris render your opinion on the clincial significance, if any of Serum Sodium 132, 136 and 137 History/Risk Factors: admitted with chronically infected Knee s/p knee replacement, revision planned with abx spacer exchanged performed and pt failed out pt vancomycin. PT medical hx of heavy etoh abuse, smoking Clinical indicators: Na 132, 137 and 136 Abnormal (CDI insert radiology study/ laboratory result/pathology report): Treatment: IV NS @ 65 cc/ hr , lab monitoring Clinical significance of diagnostic testing and treatment CANNOT be assumed or coded without physician documentation of significance if any. Please clarify clinical significance, if any, of Serum Sodium level of 132 : Abnormal Lab Value not clinically significant Hyponatremia clinically significant and treated Unable to determine Other, please specify (Last Revision: February 2017) MTDD
[2018-05-16] MEDS: MAGNESIUM OXIDE 400 MG TAB PO SCH (11:59)
--- NOTE | 2018-05-16 12:22 | P.PN ---
Subjective Progress Note Date: 05/16/18 This is a 58-year-old male with a known past medical history of left knee septic arthritis in which cultures had grown MRSA. He completed antibiotic treatment vancomycin. And he had a stage I revision of the left total knee arthroplasty with removal of components and placement of antibiotic spacer in February 2018. Patient went to intermediate. He completed antibiotic treatment. He presented back to the hospital for possible stage II revision of the left total knee arthroplasty. However, they had to do a repeat stage I revision of the left total knee with removal of prior antibiotic spacer and placement of new antibiotic spacer for persistent infection. Patient is currently on IV Kefzol. Infectious disease has been consulted. Cultures have been obtained. Pain is controlled. Patient denies any chest pain or shortness of breath. Denies any nausea or vomiting. Denies any bowel movement changes or urinary symptoms. Denies any fever chills or sweats. Also note that patient does have a past medical history of alcohol abuse. He states that it's been over 3 months since she's had alcoholic beverage. Patient does have a history of PE and DVT and had undergone [place] filter placement in February 2018. At that time Xarelto was discontinued due to GI bleed with office ground emesis. Secondary to Linear erosions or ulcerations in the mid distal esophagus consistence with reflux esophagitis on EGD. And he was maintained on Protonix. But apparently patient has been restarted on Xarelto on the outpatient setting. He also has a history of iron deficiency anemia. We have been consulted for medical management. Medications have been reviewed and reconciled. On 05/14/2018 patient is alert and oriented 3 in no apparent distress, there is no fever or chills no headache or dizziness no chest pain no shortness of breath no cough no nausea or vomiting no abdominal pain no diarrhea and no urinary symptoms, he is complaining of pain in his left knee, receiving pain medication with reasonable control. On 05/15/2018 patient is still complaining of left lower extremity pain otherwise he denies any complaints there is no fever or chills no headache or dizziness no chest pain no shortness of breath no cough no nausea or vomiting no abdominal pain no diarrhea and no urinary symptoms. 05/16/2018 patient has no new complaints. He is scheduled for PICC line placement. Wound cultures did grow MRSA in the left knee. Vancomycin discontinued patient placed on daptomycin per infectious disease. Objective - Vital Signs Vital signs: Vital Signs Temp 98.3 F 05/16/18 07:00 Pulse 81 05/16/18 07:00 Resp 18 05/16/18 07:00 BP 124/85 05/16/18 07:00 Pulse Ox 99 05/16/18 07:00 Intake & Output 05/15/18 05/16/18 05/16/18 18:59 06:59 18:59 Intake Total 500 730 Output Total 300 Balance 500 430 Intake: Intake, IV Titration 500 Amount Sodium Chloride 0.9% 1, 500 000 ml @ 65 mls/hr IV . [id number] ALVA Rx#:[id number] Oral 730 Output: Urine 300 Other: Voiding Method Urinal Urinal # Voids 1 - Exam Head normocephalic Neck supple Lungs clear to auscultation bilaterally no wheezing or crackles Heart regular rate and rhythm S1-S2, no rub or gallop Abdomen is soft nontender nondistended positive bowel sounds no hepatosplenomegaly Extremities no edema. Left knee is Thor wrapped Neuro alert and orientated to 3 - Labs CBC & Chem 7: 05/16/18 07:59 05/16/18 07:59 Labs: Abnormal Lab Results - Last 24 Hours (Table) 05/16/18 05/16/18 Range/Units 07:59 07:59 WBC 13.8 H (3.8-10.6) k/uL RBC 3.52 L (4.30-5.90) m/uL Hgb 10.4 L (13.0-17.5) gm/dL Hct 34.9 L (39.0-53.0) % MCHC 29.9 L (31.0-37.0) g/dL Plt Count 597 H (150-450) k/uL Neutrophils # 9.7 H (1.3-7.7) k/uL Sodium 136 L (137-145) mmol/L Potassium 5.5 H (3.5-5.1) mmol/L Chloride 108 H (98-107) mmol/L Glucose 73 L (74-99) mg/dL Calcium 10.8 H (8.4-10.2) mg/dL Total Protein 5.2 L (6.3-8.2) g/dL Albumin 2.3 L (3.5-5.0) g/dL Microbiology - Last 24 Hours (Table) 05/13/18 07:55 Gram Stain - Final Knee - Left Wound Culture - Final Methicillin resist S. aureus 05/13/18 07:50 Gram Stain - Final Knee - Left Wound Culture - Final Methicillin resist S. aureus 05/13/18 07:55 Anaerobic Culture - Preliminary Knee - Left 05/13/18 07:50 Anaerobic Culture - Preliminary Knee - Left Assessment and Plan Assessment: 1. Left knee septic arthritis with MRSA. status post repeat stage I revision left total knee with removal of prior antibiotic spacer and placement of new antibiotic spacer. Failed treatment with vancomycin. Infectious disease is following. Currently on daptomycin. Scheduled for PICC line placement today 2. history of PE and DVT status post [place] filter in February 2018 due to GI bleeding 3. History of GI bleed due to linear erosions or ulcerations in the mid distal esophagus consistent with reflux esophagitis continue Protonix and Carafate 4. History of alcohol abuse. Patient has not had alcoholic beverage in 3 months GI prophylaxis Protonix and DVT prophylaxis Mercedes I performed an examination of the patient and discussed their management with the physician Guitar Maker. I have reviewed the Physician Guitar Maker's notes and agree with the documented findings and plan of care
[2018-05-16] MEDS: DAPTOmycin 500 MG in SODIUM CHLORIDE 0.9% 50 ML IVPB SCH (16:46)
[2018-05-16] MEDS: SODIUM CHLORIDE 0.9% 1,000 ML IV SCH (16:53)
[2018-05-16] MEDS: SENNOSIDES-DOCUSATE SODIUM 1 EACH TAB PO SCH (20:41)
[2018-05-16] MEDS: ALPRAZolam 0.25 MG TAB PO PRN (21:46)
[2018-05-17] MEDS: HYDROcodone/APAP 7.5-325MG 1 EACH TAB PO PRN ×6 (03:16→22:07)
[2018-05-17] MEDS: hydrOXYzine PAMOATE 25 MG CAP PO PRN ×4 (03:16→16:19)
[2018-05-17] MEDS: SODIUM CHLORIDE 0.9% 1,000 ML IV SCH ×2 (03:46→20:37)
--- NOTE | 2018-05-17 07:23 | PN ---
PROGRESS NOTE DATE OF SERVICE: 05/16/2018. REASON FOR FOLLOWUP: Left knee septic arthritis MRSA. INTERVAL HISTORY: The patient is currently afebrile. He is breathing comfortably. Continues complaining of pain to the left knee area with slight movement or . No chest pain, shortness of breath. No cough. No abdominal pain. No diarrhea. PHYSICAL EXAMINATION: Blood pressure 104/67, pulse of 96, temperature 97.7. General description is a middle- aged male lying in bed in no distress. Respiratory system: Unlabored breathing. Clear to auscultation anteriorly. Heart S1, S2. Regular rate and rhythm. Abdomen soft. No tenderness. Left knee currently dressed. Minimal swelling. No drainage. LABS: Hemoglobin 10.4, white count down to 13.8. The left knee culture currently showing MRSA. Blood cultures have been negative. DIAGNOSTIC IMPRESSION AND PLAN: Patient with MRSA, left knee septic arthritis, failing a course of IV vancomycin therapy, status post new antibiotic spacer placement. Plan at this time is to continue with daptomycin 500 mg IV piggyback daily waiting for the PICC line and outpatient antibiotic for discharge. Continue supportive care. MMODL / IJN: [id number] /
[2018-05-17] MEDS: NICOTINE 14MG/24HR PATCH TRANSDERM SCH (07:37)
[2018-05-17] MEDS: SUCRALFATE 1 GM TAB PO SCH ×4 (07:38→22:07)
[2018-05-17] MEDS: GABAPENTIN 300 MG CAP PO SCH ×2 (07:38→22:07)
[2018-05-17] MEDS: RIVAROXABAN 20 MG TAB PO SCH (07:38)
[2018-05-17] MEDS: PANTOPRAZOLE 40 MG TABLET PO SCH ×2 (07:38→18:02)
[2018-05-17] MEDS: MULTIVITAMINS, THERA 1 EACH TAB PO SCH (07:38)
[2018-05-17 08:51] LABS: Basophils # (A) 0.1 k/uL (0-0.2); Basophils % (A) 0 %; Eosinophils # (A) 0.7 k/uL (0-0.7); Eosinophils % (A) 5 %; HCT 33.2 % (39.0-53.0); HGB 10.2 gm/dL (13.0-17.5); Hypochromasia Slight; Lymphocytes # (A) 2.2 k/uL (1.0-4.8); Lymphocytes % (A) 16 %; MCH 29.2 pg (25.0-35.0); MCHC 30.8 g/dL (31.0-37.0); MCV 94.9 fL (80.0-100.0); Mean Platelet Volume 6.8; Monocytes # (A) 0.8 k/uL (0-1.0); Monocytes % (A) 6 %; Neutrophils # (A) 9.6 k/uL (1.3-7.7); Neutrophils % (A) 70 %; Platelet Count 678 k/uL (150-450); RDW 14.7 % (11.5-15.5); WBC 13.6 k/uL (3.8-10.6)
[2018-05-17 09:02] LABS: ALT 18 U/L (21-72); AST 27 U/L (17-59); Albumin 2.6 g/dL (3.5-5.0); Alkaline Phosphatase 101 U/L (38-126); Anion Gap 5 mmol/L; Blood Urea Nitrogen 19 mg/dL (9-20); Calcium 11.1 mg/dL (8.4-10.2); Carbon Dioxide 26 mmol/L (22-30); Chloride 107 mmol/L (98-107); Glucose 87 mg/dL (74-99); Magnesium 1.4 mg/dL (1.6-2.3); Potassium 4.9 mmol/L (3.5-5.1); Sodium 138 mmol/L (137-145); Total Bilirubin 0.2 mg/dL (0.2-1.3); Total Protein 5.8 g/dL (6.3-8.2)
--- NOTE | 2018-05-17 13:55 | P.PN ---
Progress Note - Text Progress Note Date: 05/17/18 Patient is a very pleasant 58-year-old male who is examined at bedside for follow-up evaluation for his left knee. He is status post repeat stage I revision of left total knee with removal of prior antibiotic spacer with placement of new antibiotic spacer for persistent infection. He is being seen examined yesterday, a left upper extremity midline PICC line site was obtained and placed. Patient continues to be seen and examined by Dr. Hill in infectious disease. He was started on daptomycin. Culture results came back previously as well. Dr. Hill will plan on working to prescribe appropriate antibiotic treatment in the outpatient setting. Due to loss of his IV site for extended period of time, Dilaudid IV was discontinued previously. Patient continues to receive [place] 7.5 mg/325 mg every 1-2 tabs every 4 hours for pain control. He states his pain in his left knee has been adequately controlled but has significant difficulty with mobility due to his pain. He states he does have significant pain when the left leg is hanging at the bedside while sitting. He said some exacerbation of pain in his left knee but states it has been controlled with medication. He continues to be nonweightbearing on the left lower extremity but is able to weight-bear as tolerated per orthopedics. He states due to his persistent infection he has been relying on a wheelchair over the past 3 months. He is encouraged to work with physical therapy to increase mobility and ambulation. He is currently on Xarelto per medicine. 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 He also has a history of previous GI bleed. He has an IVC filter in place. Previously he had a PICC line in place which he received antibiotic medication for his left knee infection. He was discharged to [facility] rehabilitation facility. He continues to state at this time he would like to try to avoid be discharged to rehabilitation facility given the cost. Cultures of the left knee were taken during surgical intervention and these results were finalized yesterday. Physical Exam: Status post surgical day number 4 Patient is awake, alert, and oriented 3 Vital signs stable Good chest excursion with deep inspiration and expiration No signs or symptoms of DVT; no calf pain Dressing over the left knee is intact with some mild drainage over the top of the incision site; no significant erythema around the knee Some mild draining from the incision site; Patient has full foot and ankle motion without difficulty bilateral lower extremities Dorsiflexion, plantar flexion, and extensor hallucis longus positive sustained bilaterally Neurovascular status left lower extremity intact Capillary refill lower extremity is bilaterally less than 2 seconds [address] line in place left upper extremity Pertinent studies: Left knee Gram stain and culture final: Methicillin resistant staph aureus Left knee Gram stain and culture final: Methicillin resistant staph aureus CBC taken on 05/17/2018: WBC 13.6 Neutrophils 9.6 Assessment: Status post stage I revision of left total knee with removal of prior antibiotic spacer with placement of new antibiotic spacer for persistent infection Left knee wound culture results positive for methicillin resistant staph aureus Left knee pain History of DVT and pulmonary embolism History of GI bleed Plan: 1. We will continue with the plan as previously set forth. Patient is encouraged to continue working with physical therapy to increase mobility and ambulation. He may weight-bear as tolerated on the left lower extremity with the aid of a walker. May continue with daily dressing changes as needed over the left knee. Patient may shower if the incision site over the left knee remains clean, dry, and intact. Timothy are currently intact and will be planned to be removed in approximately 14 days. We will continue to follow patient closely. We will plan for discharge once patient is cleared by medicine and infectious disease. At that time patient will plan to follow with Dr. Bassem Traylor in 2 weeks for further evaluation at [facility]. 2. Patient will continue to be followed by Dr. Ren/Dr. Hill in infectious disease and will determine appropriate plan for antibiotic treatment in the outpatient setting; culture results have been finalized for methicillin resistant staph aureus 3. PICC line placement is been obtained 4. Continue pain control with oral [place] 7.5 mg/325 mg 1-2 tabs every 4 hours as needed for pain; Dilaudid has been discontinued 5. Patient will continue to be seen and examined by medicine for his other medical diagnoses including history of DVT and pulmonary embolism with history of GI bleed; patient currently on Xarelto as prescribed by medicine 6. We will continue to follow patient closely; patient will most likely remain in hospital until this coming 05/18/2018, at which time we may plan for discharge if his pain is adequately controlled, he has received PICC line, and appropriate antibiotic regimen has been set forth by infectious disease for the outpatient setting
[2018-05-17] MEDS: DAPTOmycin 500 MG in SODIUM CHLORIDE 0.9% 50 ML IVPB SCH (16:11)
[2018-05-17] MEDS: LACTATED RINGERS 1,000 ML IV SCH (17:55)
[2018-05-17] MEDS: SENNOSIDES-DOCUSATE SODIUM 1 EACH TAB PO SCH (22:07)
[2018-05-18] MEDS: LACTATED RINGERS 1,000 ML IV SCH (05:58)
--- NOTE | 2018-05-18 07:51 | PN ---
PROGRESS NOTE DATE OF SERVICE: 05/17/2018. REASON FOR FOLLOWUP: Left knee septic arthritis and MRSA. INTERVAL HISTORY: The patient is currently afebrile, has been breathing comfortably. Denies having any chest pain or shortness of breath, no abdominal pain. Did have pain in the left knee area with minimal movement and the patient did say he has inability to move or use any weight on that leg. PHYSICAL EXAMINATION: Blood pressure is 94/58 with a pulse of 91, temperature 97.3, he is 95% on room air. General description is a middle-aged male, lying in bed in no distress. RESPIRATORY SYSTEM: Unlabored breathing, clear to auscultation anteriorly. HEART: S1, S2. Regular rate and rhythm. ABDOMEN: Soft, no tenderness. Left leg is currently dressed up. Minimal swelling, no redness, no drainage. LABS: Hemoglobin is 10.2, white count of 13.6, BUN of 19, creatinine 1.02. DIAGNOSTIC IMPRESSION AND PLAN: Patient with left knee septic arthritis, methicillin-resistant Staphylococcus aureus, failing on course of IV vancomycin. The patient is currently on daptomycin. She is currently 500 mg a day. Waiting for the outpatient antibiotic arrangement before discharge. Continue supportive care. MMODL / IJN: [id number] /
[2018-05-18] MEDS: HYDROcodone/APAP 7.5-325MG 1 EACH TAB PO PRN ×4 (08:12→21:15)
[2018-05-18] MEDS: RIVAROXABAN 20 MG TAB PO SCH (08:12)
[2018-05-18] MEDS: NICOTINE 14MG/24HR PATCH TRANSDERM SCH (08:12)
[2018-05-18] MEDS: SUCRALFATE 1 GM TAB PO SCH ×4 (08:12→21:15)
[2018-05-18] MEDS: PANTOPRAZOLE 40 MG TABLET PO SCH ×2 (08:16→17:16)
[2018-05-18] MEDS: GABAPENTIN 300 MG CAP PO SCH ×2 (08:16→21:15)
--- NOTE | 2018-05-18 08:30 | P.DS ---
Providers Date of admission: 05/16/18 07:52 Expected date of discharge: 05/18/18 Attending physician: Bassem Traylor Consults: 05/13/18 07:04 Consult Physician Routine Consulting Provider: Claudette Edward Consult Reason/Comments: medical management and anticoagulation. IVC filter, h/o GI bleed. Do you want consulting provider notified?: Yes 05/13/18 07:09 Consult Physician Routine Consulting Provider: Jeffery Martinez Consult Reason/Comments: anticoagulation, h/o IVC filter placement. 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 Patient previously underwent stage I revision left total knee with placement of an antibiotic spacer. When the infection was felt to be cleared the patient was scheduled for stage II revision left total knee arthroplasty. The patient presents for evaluation. After discussion and consideration patient elects to proceed with stage II revision left total knee arthroplasty. The patient is seen preoperatively by Dr. Traylor and medically cleared for surgery by their primary care physician and infectious disease. Patient is admitted to [facility] on 05/13/2018 for stage II revision left total knee arthroplasty. Intraoperatively there were findings for gross purulence and a positive frozen section for acute inflammation. Therefore, stage I revision left total knee arthroplasty with removal of prior antibiotic spacer and placement of a new antibiotic spacer was performed for persistent infection. The patient is doing well postoperatively. Labs and vital signs are stable on day of discharge. Patient is on Xarelto for DVT prophylaxis per internal medicine. Cultures are positive for MRSA. Patient had a PICC line placed during this admission. IV antibiotics have been managed by infectious disease. Patient has been refusing physical therapy. On day of discharge patient's knee incision is healing well. There is minimal erythema. There is no drainage noted at this time. There is minimal soft tissue swelling to the knee. Patient has full foot and ankle motion without difficulty or pain. Calf is soft and nontender to palpation. Neurovascular status to the left lower extremity is intact. Patient is discharged home in good condition. Please see med rec for accurate list of home medications. Plan - Discharge Summary Discharge Rx Participant: Yes New Discharge Prescriptions: New HYDROcodone/APAP 7.5-325MG [[place] 7.5-325] 1 - 2 tab PO Q4-6H PRN #84 tab PRN Reason: Pain Sennosides [Senokot] 1 tab PO BID #60 tablet DAPTOmycin [Cubicin] 500 mg IV DAILY #40 bag No Action Albuterol Nebulized [Ventolin Nebulized] 2.5 mg INHALATION RT-Q4H PRN PRN Reason: Shortness Of Breath Multivitamins, Thera [Multivitamin (formulary)] 1 tab PO DAILY HYDROcodone/APAP 7.5-325MG [[place] 7.5-325] 1 tab PO Q4-6H PRN PRN Reason: Pain Pantoprazole [Protonix] 40 mg PO HS Potassium (Unknown Dose) 1 tab PO BID Magnesium (Unknown Dose) 1 tab PO DAILY Rivaroxaban [Xarelto] 20 mg PO DAILY Gabapentin [Neurontin] 300 mg PO BID Loperamide [Imodium] 2 mg PO QID PRN PRN Reason: Diarrhea Metoprolol Succinate (ER) [Toprol Xl] 25 mg PO DAILY QUEtiapine [SEROquel] 100 mg PO BID Discharge Medication List Albuterol Nebulized [Ventolin Nebulized] 2.5 mg INHALATION RT-Q4H PRN 01/28/18 [ History] Multivitamins, Thera [Multivitamin (formulary)] 1 tab PO DAILY 02/25/18 [History ] Gabapentin [Neurontin] 300 mg PO BID 05/06/18 [History] HYDROcodone/APAP 7.5-325MG [[place] 7.5-325] 1 tab PO Q4-6H PRN 05/06/18 [History] Magnesium (Unknown Dose) 1 tab PO DAILY 05/06/18 [History] Pantoprazole [Protonix] 40 mg PO HS 05/06/18 [History] Potassium (Unknown Dose) 1 tab PO BID 05/06/18 [History] Rivaroxaban [Xarelto] 20 mg PO DAILY 05/06/18 [History] Loperamide [Imodium] 2 mg PO QID PRN 05/09/18 [History] DAPTOmycin [Cubicin] 500 mg IV DAILY #40 bag 05/13/18 [Rx] HYDROcodone/APAP 7.5-325MG [[place] 7.5-325] 1 - 2 tab PO Q4-6H PRN #84 tab [Rx] Sennosides [Senokot] 1 tab PO BID #60 tablet 05/13/18 [Rx] Metoprolol Succinate (ER) [Toprol Xl] 25 mg PO DAILY 05/16/18 [History] QUEtiapine [SEROquel] 100 mg PO BID 05/16/18 [History] Follow up Appointment(s)/Referral(s): [facility], [NON-STAFF] - Bassem Traylor DO [Doctor of Osteopathic Medicine] - 2 Weeks Activity/Diet/Wound Care/Special Instructions: Weightbearing as tolerated with a walker. Daily dressing changes, keep incision clean and dry. May shower if no drainage from incision. [place] to be removed in 14 days. Please follow up with [facility] and call with questions or concerns , [phone]. Discharge Disposition: HOME WITH HOME HEALTH SERVICES
[2018-05-18 11:55] LABS: Basophils # (A) 0.1 k/uL (0-0.2); Basophils % (A) 0 %; Eosinophils # (A) 0.6 k/uL (0-0.7); Eosinophils % (A) 4 %; HGB 11.7 gm/dL (13.0-17.5); Hypochromasia Marked; Lymphocytes # (A) 2.2 k/uL (1.0-4.8); Lymphocytes % (A) 14 %; MCH 29.4 pg (25.0-35.0); MCHC 29.9 g/dL (31.0-37.0); MCV 98.3 fL (80.0-100.0); Mean Platelet Volume 6.2; Monocytes # (A) 0.6 k/uL (0-1.0); Monocytes % (A) 4 %; Neutrophils # (A) 12.8 k/uL (1.3-7.7); Neutrophils % (A) 78 %; Platelet Count 611 k/uL (150-450); RBC 3.97 m/uL (4.30-5.90); RDW 14.4 % (11.5-15.5); WBC 16.5 k/uL (3.8-10.6)
[2018-05-18 12:13] LABS: Albumin 2.8 g/dL (3.5-5.0); Calcium 11.4 mg/dL (8.4-10.2); Magnesium 1.3 mg/dL (1.6-2.3); Potassium 4.5 mmol/L (3.5-5.1); Total Bilirubin 0.6 mg/dL (0.2-1.3); Total Protein 6.1 g/dL (6.3-8.2)
[2018-05-18] MEDS: MULTIVITAMINS, THERA 1 EACH TAB PO SCH (12:32)
--- NOTE | 2018-05-18 16:54 | PN ---
PROGRESS NOTE DATE OF SERVICE: 05/18/2018. REASON FOR FOLLOWUP: Left knee septic arthritis, MRSA. INTERVAL HISTORY: The patient is afebrile. He is currently breathing comfortably. Currently complaining of pain to the left knee area. He is currently waiting for placement. No chest pain, shortness of breath or cough. PHYSICAL EXAMINATION: Blood pressure is 106/73 with a pulse of 84, temperature is 97.7. He is 97% on room air. General description is a middle-aged male lying in bed in no distress. RESPIRATORY SYSTEM: Unlabored breathing. Clear to auscultation anteriorly. HEART: S1, S2. Regular rate and rhythm. ABDOMEN: Soft. No tenderness. LEFT KNEE: Currently with some swelling but no redness or any drainage. LABS: Hemoglobin 11.7, white count 16.5. BUN of 16, creatinine 1.06. DIAGNOSTIC IMPRESSION AND PLAN: Patient with left knee septic arthritis, failing course of IV vancomycin. Currently waiting for placement and IV antibiotic arrangement. The patient is on daptomycin 500 mg a day, to continue for at least 6 weeks with close outpatient followup, weekly monitoring of CBC and BMP and sed rate along with CPK, and he will follow up with Dr. Ren in the outpatient setting. MMODL / IJN: [id number] /
[2018-05-18] MEDS: DAPTOmycin 500 MG in SODIUM CHLORIDE 0.9% 50 ML IVPB SCH (17:16)
[2018-05-18] MEDS: SODIUM CHLORIDE 0.9% 1,000 ML IV SCH (21:07)
[2018-05-18] MEDS: SENNOSIDES-DOCUSATE SODIUM 1 EACH TAB PO SCH (21:15)
[2018-05-19] MEDS: SODIUM CHLORIDE 0.9% 1,000 ML IV SCH ×2 (02:34→19:41)
[2018-05-19] MEDS: LACTATED RINGERS 1,000 ML IV SCH (04:47)
[2018-05-19] MEDS: NICOTINE 14MG/24HR PATCH TRANSDERM SCH (07:39)
[2018-05-19] MEDS: SUCRALFATE 1 GM TAB PO SCH ×4 (07:40→20:16)
[2018-05-19] MEDS: HYDROcodone/APAP 7.5-325MG 1 EACH TAB PO PRN ×3 (07:40→18:52)
[2018-05-19] MEDS: GABAPENTIN 300 MG CAP PO SCH ×2 (07:40→20:16)
[2018-05-19] MEDS: PANTOPRAZOLE 40 MG TABLET PO SCH ×2 (07:40→16:45)
[2018-05-19] MEDS: MULTIVITAMINS, THERA 1 EACH TAB PO SCH (07:40)
[2018-05-19 08:10] LABS: Basophils # (A) 0.1 k/uL (0-0.2); Basophils % (A) 1 %; Eosinophils # (A) 0.7 k/uL (0-0.7); Eosinophils % (A) 5 %; HCT 34.1 % (39.0-53.0); HGB 10.2 gm/dL (13.0-17.5); Hypochromasia Marked; Lymphocytes % (A) 15 %; MCH 29.2 pg (25.0-35.0); MCHC 29.9 g/dL (31.0-37.0); MCV 97.5 fL (80.0-100.0); Mean Platelet Volume 6.5; Monocytes # (A) 0.8 k/uL (0-1.0); Monocytes % (A) 6 %; Neutrophils # (A) 9.6 k/uL (1.3-7.7); Neutrophils % (A) 71 %; Platelet Count 634 k/uL (150-450); RDW 14.4 % (11.5-15.5); WBC 13.5 k/uL (3.8-10.6)
[2018-05-19 08:17] LABS: ALT 14 U/L (21-72); AST 14 U/L (17-59); Albumin 2.4 g/dL (3.5-5.0); Alkaline Phosphatase 85 U/L (38-126); Anion Gap 7 mmol/L; Blood Urea Nitrogen 16 mg/dL (9-20); Calcium 10.4 mg/dL (8.4-10.2); Carbon Dioxide 25 mmol/L (22-30); Chloride 105 mmol/L (98-107); Glucose 89 mg/dL (74-99); Magnesium 1.2 mg/dL (1.6-2.3); Sodium 137 mmol/L (137-145); Total Bilirubin 0.4 mg/dL (0.2-1.3); Total Protein 5.4 g/dL (6.3-8.2)
--- NOTE | 2018-05-19 08:27 | P.PN ---
Subjective Progress Note Date: 05/19/18 This is a 58 year-old male who is status post stage I revision left total knee with placement of antibiotic spacer. This is postoperative day #6. Patient does complain of pain in the left knee today, but states that he has been out of bed to go to the bathroom and back. Patient denies any new complaints today. Patient states that he is now considering ECF placement. Patient denies any fever/chills, numbness, weakness, tingling, abdominal pain, shortness of breath or chest pain. Objective - Vital Signs Vital signs: Vital Signs Temp 98 F 05/19/18 07:54 Pulse 89 05/19/18 07:54 Resp 16 05/19/18 07:54 BP 100/70 05/19/18 07:54 Pulse Ox 96 05/19/18 08:04 Intake & Output 05/18/18 05/19/18 05/19/18 18:59 06:59 18:59 Other: Voiding Method Toilet Toilet Urinal Urinal # Voids 2 # Bowel Movements 1 - Exam Vital signs are stable. Patient is lying comfortably in bed. Patient is in no acute distress and is alert and oriented 3. Calf is soft and nontender to palpation. Dressing is clean, dry, and intact. Patient has full foot and ankle motion without pain or difficulty. Neurovascular status and circulatory status are intact. - Labs CBC & Chem 7: 05/19/18 07:24 05/19/18 07:24 Labs: Abnormal Lab Results - Last 24 Hours (Table) 05/18/18 05/18/18 05/19/18 Range/Units 11:32 11:32 07:24 WBC 16.5 H 13.5 H (3.8-10.6) k/uL RBC 3.97 L 3.50 L (4.30-5.90) m/uL Hgb 11.7 L 10.2 L (13.0-17.5) gm/dL Hct 34.1 L (39.0-53.0) % MCHC 29.9 L 29.9 L (31.0-37.0) g/dL Plt Count 611 H 634 H (150-450) k/uL Neutrophils # 12.8 H 9.6 H (1.3-7.7) k/uL Sodium 136 L (137-145) mmol/L Carbon Dioxide 21 L (22-30) mmol/L Calcium 11.4 H (8.4-10.2) mg/dL Magnesium 1.3 L (1.6-2.3) mg/dL AST (17-59) U/L ALT 19 L (21-72) U/L Total Protein 6.1 L (6.3-8.2) g/dL Albumin 2.8 L (3.5-5.0) g/dL 05/19/18 Range/Units 07:24 WBC (3.8-10.6) k/uL RBC (4.30-5.90) m/uL Hgb (13.0-17.5) gm/dL Hct (39.0-53.0) % MCHC (31.0-37.0) g/dL Plt Count (150-450) k/uL Neutrophils # (1.3-7.7) k/uL Sodium (137-145) mmol/L Carbon Dioxide (22-30) mmol/L Calcium 10.4 H (8.4-10.2) mg/dL Magnesium 1.2 L (1.6-2.3) mg/dL AST 14 L (17-59) U/L ALT 14 L (21-72) U/L Total Protein 5.4 L (6.3-8.2) g/dL Albumin 2.4 L (3.5-5.0) g/dL Microbiology - Last 24 Hours (Table) 05/15/18 15:56 Blood Culture - Preliminary Blood No Growth after 72 hours Assessment and Plan (1) Infection of total left knee replacement Current Visit: Yes Status: Acute Code(s): T84.54XA - INFECT/INFLM REACTION DUE TO INTERNAL LEFT KNEE PROSTH, INIT; Z96.652 - PRESENCE OF LEFT ARTIFICIAL KNEE JOINT SNOMED Code(s): 892274877 (2) Status post revision of total replacement of left knee Current Visit: Yes Status: Acute Code(s): Z96.652 - PRESENCE OF LEFT ARTIFICIAL KNEE JOINT SNOMED Code(s): 075004448333922 (3) MRSA infection Current Visit: No Status: Acute Code(s): A49.02 - METHICILLIN RESIS STAPH INFECTION, UNSP SITE SNOMED Code(s): 024527610 Plan: 1. Patient is to be weightbearing as tolerated to the left lower extremity. 2. Daily dressing changes. 3. Continue routine postoperative care and pain control. 4. Patient is awaiting PICC line placement. IV antibiotics per infectious disease. 5. Patient is on Xarelto for DVT prophylaxis per internal medicine. Appreciate input from internal medicine. 6. Anticipate discharge home or to ECF in the next 1-2 days.
[2018-05-19] MEDS: RIVAROXABAN 20 MG TAB PO SCH (08:49)
[2018-05-19] MEDS ORDERED: LIDOCAINE 1% INJ 10MG/ML (20 ML MDV) SQ ONE (10:00)
[2018-05-19] MEDS: DAPTOmycin 500 MG in SODIUM CHLORIDE 0.9% 50 ML IVPB SCH (16:46)
--- NOTE | 2018-05-19 20:04 | P.PN ---
Subjective Progress Note Date: 05/19/18 Principal diagnosis: Left knee septic arthritis with MRSA, history of DVT PE status post IVC filter, history of GI bleed, history of alcohol consumption 05/19/2018, patient seen eval reexamined during the rounds clinically patient the continue to have issues with pain, patient has been found to have low magnesium level for which magnesium infusion has been given, ID service has been following this patient as well, this patient was seen eval reexamined today noted that he slipped off of the list I've discussed with RN so that patient can be put back on the list Objective - Vital Signs Vital signs: Vital Signs Temp 98 F 05/19/18 07:54 Pulse 89 05/19/18 07:54 Resp 16 05/19/18 16:00 BP 100/70 05/19/18 07:54 Pulse Ox 96 05/19/18 08:04 Intake & Output 05/19/18 05/19/18 05/20/18 06:59 18:59 06:59 Intake Total 850 Output Total 200 Balance 650 Intake: Oral 850 Output: Urine 200 Other: Voiding Method Toilet Toilet Urinal Urinal - Constitutional General appearance: Present: average body habitus, cooperative, disheveled, no acute distress - EENT Eyes: Present: EOMI, PERRLA, poor dentition, normal appearance Ears: bilateral: normal - Neck Carotids: bilateral: upstroke normal Thyroid: bilateral: normal size - Respiratory Respiratory: bilateral: CTA - Cardiovascular Rhythm: regular Heart sounds: normal: S1, S2 - Gastrointestinal General gastrointestinal: Present: normal bowel sounds, soft - Integumentary Integumentary Comment(s): Left knee is Thor wrapped Integumentary: Present: normal turgor - Neurologic Neurologic: Present: CNII-XII intact - Musculoskeletal Musculoskeletal: Present: gait normal, generalized weakness, strength equal bilaterally - Psychiatric Psychiatric: Present: A&O x's 3, appropriate affect, intact judgment & insight - Labs CBC & Chem 7: 05/19/18 07:24 05/19/18 07:24 Labs: Abnormal Lab Results - Last 24 Hours (Table) 05/19/18 05/19/18 Range/Units 07:24 07:24 WBC 13.5 H (3.8-10.6) k/uL RBC 3.50 L (4.30-5.90) m/uL Hgb 10.2 L (13.0-17.5) gm/dL Hct 34.1 L (39.0-53.0) % MCHC 29.9 L (31.0-37.0) g/dL Plt Count 634 H (150-450) k/uL Neutrophils # 9.6 H (1.3-7.7) k/uL Calcium 10.4 H (8.4-10.2) mg/dL Magnesium 1.2 L (1.6-2.3) mg/dL AST 14 L (17-59) U/L ALT 14 L (21-72) U/L Total Protein 5.4 L (6.3-8.2) g/dL Albumin 2.4 L (3.5-5.0) g/dL Microbiology - Last 24 Hours (Table) 05/15/18 15:56 Blood Culture - Preliminary Blood No Growth after 96 hours Assessment and Plan Assessment: Left knee septic arthritis with MRSA status post new antibiotic spacer placement Sepsis associated with the left knee septic arthritis Hypomagnesemia History of DVT PE in the past status post IVC filter now on Xarelto History of alcohol consumption Borderline hypercalcemia Plan: Continue gentle hydration Pain management Antibiotics as per infectious disease services Replace magnesium Time with Patient: Greater than 30
[2018-05-19] MEDS: SENNOSIDES-DOCUSATE SODIUM 1 EACH TAB PO SCH (20:16)
--- NOTE | 2018-05-19 22:59 | PN ---
PROGRESS NOTE DATE OF SERVICE: 05/19/2018. REASON FOR FOLLOWUP: Left knee septic arthritis MRSA. INTERVAL HISTORY: The patient is currently afebrile. He is breathing comfortably. Did not complain of pain to the left knee with no worsening. Pain controlled with pain medication. Denies any chest pain, shortness of breath, cough or abdominal pain. He is waiting for placement. PHYSICAL EXAMINATION: Blood pressure 98/60 with a pulse of 89, temperature 97.8. He is 98% on room air. GENERAL DESCRIPTION: A middle-aged male lying in bed in no distress. RESPIRATORY SYSTEM: Unlabored breathing. Clear to auscultation anteriorly. HEART: S1, S2. Regular rate and rhythm. ABDOMEN: Soft, no tenderness. LABS: BUN of 15, creatinine 1.04. Hemoglobin is 10.2, white count 13.5. Blood culture has been negative. DIAGNOSTIC IMPRESSION AND PLAN: Patient with MRSA septic arthritis, failing one course of IV vancomycin, currently on daptomycin. She is currently waiting for placement for outpatient IV antibiotic therapy. Once antibiotic arranged, may be able to go home from ID standpoint with weekly monitoring of CBC, BMP and CPK. Continue supportive care. MMODL / IJN: [id number] /
[2018-05-20] MEDS: HYDROcodone/APAP 7.5-325MG 1 EACH TAB PO PRN ×4 (00:06→13:09)
[2018-05-20 03:31] VITALS: RESP 16
[2018-05-20] MEDS: LACTATED RINGERS 1,000 ML IV SCH (05:52)
[2018-05-20 07:27] VITALS: BP 106/64; PULSE 70; TEMP 97.4
[2018-05-20 07:43] LABS: Albumin 2.3 g/dL (3.5-5.0); Calcium 9.4 mg/dL (8.4-10.2); Potassium 3.8 mmol/L (3.5-5.1); Total Bilirubin 0.2 mg/dL (0.2-1.3); Total Protein 5.2 g/dL (6.3-8.2)
[2018-05-20 08:04] LABS: Basophils % (A) 0 %; Eosinophils # (A) 0.7 k/uL (0-0.7); Eosinophils % (A) 7 %; HCT 32.1 % (39.0-53.0); Hypochromasia Slight; Lymphocytes # (A) 2.4 k/uL (1.0-4.8); Lymphocytes % (A) 25 %; MCH 29.7 pg (25.0-35.0); MCHC 31.1 g/dL (31.0-37.0); MCV 95.4 fL (80.0-100.0); Mean Platelet Volume 6.8; Monocytes # (A) 0.9 k/uL (0-1.0); Monocytes % (A) 10 %; Neutrophils # (A) 5.3 k/uL (1.3-7.7); Neutrophils % (A) 56 %; Platelet Count 543 k/uL (150-450); RBC 3.36 m/uL (4.30-5.90); RDW 14.5 % (11.5-15.5); WBC 9.5 k/uL (3.8-10.6)
--- NOTE | 2018-05-20 08:21 | P.PN ---
Subjective Progress Note Date: 05/20/18 This is a 58 year-old male who is status post stage I revision left total knee with placement of antibiotic spacer. This is postoperative day #7. Patient states that he has been out of bed with physical therapy, but just to the commode and back. Patient denies any new complaints today. Patient states that he is now considering ECF placement. Patient denies any fever/chills, numbness, weakness, tingling, abdominal pain, shortness of breath or chest pain. Objective - Vital Signs Vital signs: Vital Signs Temp 97.4 F L 05/20/18 07:27 Pulse 70 05/20/18 07:27 Resp 16 05/20/18 07:27 BP 106/64 05/20/18 07:27 Pulse Ox 94 L 05/20/18 07:27 Intake & Output 05/19/18 05/20/18 05/20/18 18:59 06:59 18:59 Intake Total 850 Output Total 200 900 Balance 650 -900 Intake: Oral 850 Output: Urine 200 900 Other: Voiding Method Toilet Toilet Urinal Urinal - Exam Vital signs are stable. Patient is lying comfortably in bed. Patient is in no acute distress and is alert and oriented 3. Calf is soft and nontender to palpation. Incision is clean, dry, and intact. Patient has full foot and ankle motion without pain or difficulty. Neurovascular status and circulatory status are intact. - Labs CBC & Chem 7: 05/20/18 06:47 05/20/18 06:47 Labs: Abnormal Lab Results - Last 24 Hours (Table) 05/20/18 05/20/18 Range/Units 06:47 06:47 RBC 3.36 L (4.30-5.90) m/uL Hgb 10.0 L (13.0-17.5) gm/dL Hct 32.1 L (39.0-53.0) % Plt Count 543 H (150-450) k/uL AST 11 L (17-59) U/L ALT 11 L (21-72) U/L Total Protein 5.2 L (6.3-8.2) g/dL Albumin 2.3 L (3.5-5.0) g/dL Microbiology - Last 24 Hours (Table) 05/15/18 15:56 Blood Culture - Preliminary Blood No Growth after 96 hours Assessment and Plan (1) Infection of total left knee replacement Current Visit: Yes Status: Acute Code(s): T84.54XA - INFECT/INFLM REACTION DUE TO INTERNAL LEFT KNEE PROSTH, INIT; Z96.652 - PRESENCE OF LEFT ARTIFICIAL KNEE JOINT SNOMED Code(s): 189567525 (2) Status post revision of total replacement of left knee Current Visit: Yes Status: Acute Code(s): Z96.652 - PRESENCE OF LEFT ARTIFICIAL KNEE JOINT SNOMED Code(s): 449352113814692 (3) MRSA infection Current Visit: No Status: Acute Code(s): A49.02 - METHICILLIN RESIS STAPH INFECTION, UNSP SITE SNOMED Code(s): 293273773 Plan: 1. Patient is to be weightbearing as tolerated to the left lower extremity. 2. Daily dressing changes. 3. Continue routine postoperative care and pain control. 4. Patient is status post PICC line placement. IV antibiotics per infectious disease. 5. Patient is on Xarelto for DVT prophylaxis per internal medicine. Appreciate input from internal medicine. 6. Anticipate discharge home or to ECF in the next 1-2 days.
[2018-05-20] MEDS: NICOTINE 14MG/24HR PATCH TRANSDERM SCH (08:26)
[2018-05-20] MEDS: GABAPENTIN 300 MG CAP PO SCH (08:28)
[2018-05-20] MEDS: SUCRALFATE 1 GM TAB PO SCH ×2 (08:28→13:09)
[2018-05-20] MEDS: MULTIVITAMINS, THERA 1 EACH TAB PO SCH (08:28)
[2018-05-20] MEDS: RIVAROXABAN 20 MG TAB PO SCH (08:28)
[2018-05-20] MEDS: PANTOPRAZOLE 40 MG TABLET PO SCH (08:28)
--- NOTE | 2018-05-20 08:53 | IR ---
EXAMINATION TYPE: IR cvc insert >=5 years DATE OF EXAM: 05/19/2018 COMPARISON: NONE CLINICAL HISTORY: Septic arthritis Needs long-term intravenous access for antibiotics. PROCEDURE: After informed consent, the skin overlying the right brachial vein was localized with ultrasound and noted to be compressible and patent. An ultrasound image was obtained and submitted on the patient's chart. The overlying skin was prepped and draped and Lidocaine was used for local anesthesia. A sk in mohan was made with a scalpel. Access was gained to the vein under ultrasound guidance with a 21 g auge needle and a 0.018 inch wire was advanced. Access site was dilated with Peel-Away sheath and ca theter tailored to the appropriate length and advanced such that the distal tip is at the cavoatrial junction. Spot image was obtained verifying placement. Catheter was fixed to the skin and a sterile dressing was placed following hemostasis. Catheter was aspirated and flushed with saline. Patient was discharged in stable condition without complication. Maximal barrier technique is utilized. Ultr asound image is documented on the chart. Ultrasound used with sterile technique. Fluoro time and fluoroscopic images submitted to document procedure: 0.5 minutes fluoroscopy time, 28 2 intraoperative images IMPRESSION: STATUS POST ULTRASOUND AND FLUOROSCOPIC GUIDED PICC LINE PLACEMENT, READY FOR USE. THIS PROCEDURE WAS PERFORMED BY THE UNDERSIGNED.
--- NOTE | 2018-05-20 11:14 | P.DS ---
Providers Date of admission: 05/16/18 07:52 Expected date of discharge: 05/20/18 Attending physician: Bassem Traylor Consults: 05/13/18 07:04 Consult Physician Routine Consulting Provider: Benita Holland Consult Reason/Comments: medical management and anticoagulation. IVC filter, h/o GI bleed. Do you want consulting provider notified?: Already Contacted 05/13/18 07:09 Consult Physician Routine Consulting Provider: Jeffery Martinez Consult Reason/Comments: anticoagulation, h/o IVC filter placement. 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 Patient previously underwent stage I revision left total knee with placement of an antibiotic spacer. When the infection was felt to be cleared the patient was scheduled for stage II revision left total knee arthroplasty. The patient presents for evaluation. After discussion and consideration patient elects to proceed with stage II revision left total knee arthroplasty. The patient is seen preoperatively by Dr. Traylor and medically cleared for surgery by their primary care physician and infectious disease. Patient is admitted to [facility] on 05/13/2018 for stage II revision left total knee arthroplasty. Intraoperatively there were findings for gross purulence and a positive frozen section for acute inflammation. Therefore, stage I revision left total knee arthroplasty with removal of prior antibiotic spacer and placement of a new antibiotic spacer was performed for persistent infection. The patient is doing well postoperatively. Labs and vital signs are stable on day of discharge. Patient is on Xarelto for DVT prophylaxis per internal medicine. Cultures are positive for MRSA. Patient had a PICC line placed during this admission. IV antibiotics have been managed by infectious disease. On day of discharge patient's knee incision is healing well. There is minimal erythema. There is no drainage noted at this time. There is minimal soft tissue swelling to the knee. Patient has full foot and ankle motion without difficulty or pain. Calf is soft and nontender to palpation. Neurovascular status to the left lower extremity is intact. Patient is discharged to [facility] in good condition. Please see med rec for accurate list of home medications. Plan - Discharge Summary Discharge Rx Participant: Yes New Discharge Prescriptions: New HYDROcodone/APAP 7.5-325MG [[place] 7.5-325] 1 - 2 tab PO Q4-6H PRN #84 tab PRN Reason: Pain Sennosides [Senokot] 1 tab PO BID #60 tablet DAPTOmycin [Cubicin] 500 mg IV DAILY #40 bag No Action Albuterol Nebulized [Ventolin Nebulized] 2.5 mg INHALATION RT-Q4H PRN PRN Reason: Shortness Of Breath Multivitamins, Thera [Multivitamin (formulary)] 1 tab PO DAILY HYDROcodone/APAP 7.5-325MG [[place] 7.5-325] 1 tab PO Q4-6H PRN PRN Reason: Pain Pantoprazole [Protonix] 40 mg PO HS Potassium (Unknown Dose) 1 tab PO BID Magnesium (Unknown Dose) 1 tab PO DAILY Rivaroxaban [Xarelto] 20 mg PO DAILY Gabapentin [Neurontin] 300 mg PO BID Loperamide [Imodium] 2 mg PO QID PRN PRN Reason: Diarrhea Metoprolol Succinate (ER) [Toprol Xl] 25 mg PO DAILY QUEtiapine [SEROquel] 100 mg PO BID Discharge Medication List Albuterol Nebulized [Ventolin Nebulized] 2.5 mg INHALATION RT-Q4H PRN 01/28/18 [ History] Multivitamins, Thera [Multivitamin (formulary)] 1 tab PO DAILY 02/25/18 [History ] Gabapentin [Neurontin] 300 mg PO BID 05/06/18 [History] HYDROcodone/APAP 7.5-325MG [[place] 7.5-325] 1 tab PO Q4-6H PRN 05/06/18 [History] Magnesium (Unknown Dose) 1 tab PO DAILY 05/06/18 [History] Pantoprazole [Protonix] 40 mg PO HS 05/06/18 [History] Potassium (Unknown Dose) 1 tab PO BID 05/06/18 [History] Rivaroxaban [Xarelto] 20 mg PO DAILY 05/06/18 [History] Loperamide [Imodium] 2 mg PO QID PRN 05/09/18 [History] DAPTOmycin [Cubicin] 500 mg IV DAILY #40 bag 05/13/18 [Rx] HYDROcodone/APAP 7.5-325MG [[place] 7.5-325] 1 - 2 tab PO Q4-6H PRN #84 tab [Rx] Sennosides [Senokot] 1 tab PO BID #60 tablet 05/13/18 [Rx] Metoprolol Succinate (ER) [Toprol Xl] 25 mg PO DAILY 05/16/18 [History] QUEtiapine [SEROquel] 100 mg PO BID 05/16/18 [History] Follow up Appointment(s)/Referral(s): [facility], [NON-STAFF] - Bassem Traylor DO [Doctor of Osteopathic Medicine] - 06/01/18 1:25 pm Activity/Diet/Wound Care/Special Instructions: Weightbearing as tolerated with a walker. Daily dressing changes, keep incision clean and dry. May shower if no drainage from incision. [place] to be removed in 14 days. Please follow up with [facility] and call with questions or concerns , [phone]. Discharge Disposition: TRANSFER TO SNF/ECF
--- NOTE | 2018-05-20 16:34 | P.PN ---
Subjective Progress Note Date: 05/20/18 Principal diagnosis: Left knee septic arthritis with MRSA, history of DVT PE status post IVC filter, history of GI bleed, history of alcohol consumption 05/20/2018, patient seen eval examined during the rounds clinically patient has been doing relatively better, patient is being placed in extended care facility labs from today has been reviewed, white cell count down to 9500, labs reviewed medications reviewed platelet count continue to improve as well 05/19/2018, patient seen eval reexamined during the rounds clinically patient the continue to have issues with pain, patient has been found to have low magnesium level for which magnesium infusion has been given, ID service has been following this patient as well, this patient was seen eval reexamined today noted that he slipped off of the list I've discussed with RN so that patient can be put back on the list Objective - Vital Signs Vital signs: Vital Signs Temp 97.4 F L 05/20/18 07:27 Pulse 70 05/20/18 08:06 Resp 16 05/20/18 08:06 BP 106/64 05/20/18 07:27 Pulse Ox 94 L 05/20/18 07:27 Intake & Output 05/19/18 05/20/18 05/20/18 18:59 06:59 18:59 Intake Total 850 350 Output Total 200 900 Balance 650 -900 350 Intake: Oral 850 350 Output: Urine 200 900 Other: Voiding Method Toilet Toilet Toilet Urinal Urinal Urinal - Exam - Constitutional General appearance: Present: average body habitus, cooperative, disheveled, no acute distress - EENT Eyes: Present: EOMI, PERRLA, poor dentition, normal appearance Ears: bilateral: normal - Neck Carotids: bilateral: upstroke normal Thyroid: bilateral: normal size - Respiratory Respiratory: bilateral: CTA - Cardiovascular Rhythm: regular Heart sounds: normal: S1, S2 - Gastrointestinal General gastrointestinal: Present: normal bowel sounds, soft - Integumentary Integumentary Comment(s): Left knee is Thor wrapped Integumentary: Present: normal turgor - Neurologic Neurologic: Present: CNII-XII intact - Musculoskeletal Musculoskeletal: Present: gait normal, generalized weakness, strength equal bilaterally - Psychiatric Psychiatric: Present: A&O x's 3, appropriate affect, intact judgment & insight - Labs CBC & Chem 7: 05/20/18 06:47 05/20/18 06:47 Labs: Abnormal Lab Results - Last 24 Hours (Table) 05/20/18 05/20/18 Range/Units 06:47 06:47 RBC 3.36 L (4.30-5.90) m/uL Hgb 10.0 L (13.0-17.5) gm/dL Hct 32.1 L (39.0-53.0) % Plt Count 543 H (150-450) k/uL AST 11 L (17-59) U/L ALT 11 L (21-72) U/L Total Protein 5.2 L (6.3-8.2) g/dL Albumin 2.3 L (3.5-5.0) g/dL Microbiology - Last 24 Hours (Table) 05/15/18 15:56 Blood Culture - Preliminary Blood No Growth after 96 hours Assessment and Plan Assessment: Left knee septic arthritis with MRSA status post new antibiotic spacer placement Sepsis associated with the left knee septic arthritis Hypomagnesemia History of DVT PE in the past status post IVC filter now on Xarelto History of alcohol consumption Borderline hypercalcemia Plan: Continue gentle hydration Pain management Antibiotics as per infectious disease services Agree with discharge planning to ECF Replace magnesium Time with Patient: Greater than 30
--- NOTE | 2018-05-20 21:57 | PN ---
PROGRESS NOTE DATE OF SERVICE: 05/20/2018 REASON FOR FOLLOWUP: Left knee septic arthritis. INTERVAL HISTORY: The patient was seen on rounds early this afternoon. The patient has been afebrile. He continues to complain of pain to the left knee, even though it has slight improvement. Denies having any chest pain, shortness of breath or cough, and no abdominal pain or diarrhea. He is currently waiting for placement. PHYSICAL EXAMINATION: Blood pressure 106/64, pulse of 70, temperature 97.4. He is 94% on room air. General description is a middle-aged male lying in bed in no distress. RESPIRATORY SYSTEM: Unlabored breathing. Clear to auscultation anteriorly. HEART: S1, S2. Regular rate and rhythm. ABDOMEN: Soft. No tenderness. LEFT KNEE: Currently dressed up. No obvious drainage on the dressing. LABS: Hemoglobin is 10, white count normalized to 9.5 with a BUN of 15, creatinine 1.13. Blood culture has been negative. DIAGNOSTIC IMPRESSION AND PLAN: Patient with methicillin-resistant Staphylococcus aeruginosa left knee septic arthritis, failing one course of the IV vancomycin, status post another antibiotic spacer placement. Plan at this time is to continue with daptomycin 500 mg daily for a total of 6 weeks with weekly monitoring of CBC, BMP, CPK. He intends to follow up with Dr. Ren in a week. Continue with supportive care. MMODL / IJN: [id number] /
== END 2018-05-20 14:43 | DRG 486 ==
LOC: OR 05:49 → EDSTATUS 07:30 → 4SSUR 09:19 → OR 05-16 07:52
PROVIDERS: ADMIT Orthopaedic Surgery; ATTEND Orthopaedic Surgery
PROC: 0SRC0EZ Replacement of Right Knee Joint with Articulating Spacer, Open Approach (ICD-10-PCS; 2018-05-13)
PROC: 02HV33Z Insertion of Infusion Device into Superior Vena Cava, Percutaneous Approach (ICD-10-PCS; principal; 2018-05-20)
DX: T84.54XA Infection and inflammatory reaction due to internal left knee prosthesis, initial encounter (principal); M00.061 Staphylococcal arthritis, right knee; E83.42 Hypomagnesemia; E83.52 Hypercalcemia; E87.5 Hyperkalemia; F17.200 Nicotine dependence, unspecified, uncomplicated; B95.62 Methicillin resistant Staphylococcus aureus infection as the cause of diseases classified elsewhere; G40.909 Epilepsy, unspecified, not intractable, without status epilepticus; T84.53XA Infection and inflammatory reaction due to internal right knee prosthesis, initial encounter; Y79.2 Prosthetic and other implants, materials and accessory orthopedic devices associated with adverse incidents; J43.9 Emphysema, unspecified; K21.0 Gastro-esophageal reflux disease with esophagitis; M19.90 Unspecified osteoarthritis, unspecified site; Y83.1 Surgical operation with implant of artificial internal device as the cause of abnormal reaction of the patient, or of later complication, without mention of misadventure at the time of the procedure; Z53.20 Procedure and treatment not carried out because of patient's decision for unspecified reasons; Z79.01 Long term (current) use of anticoagulants; Z80.3 Family history of malignant neoplasm of breast; Z82.49 Family history of ischemic heart disease and other diseases of the circulatory system; Z86.14 Personal history of Methicillin resistant Staphylococcus aureus infection; Z86.711 Personal history of pulmonary embolism; Z86.718 Personal history of other venous thrombosis and embolism; Z91.81 History of falling; Z79.891 Long term (current) use of opiate analgesic; Z79.899 Other long term (current) drug therapy; B95.7 Other staphylococcus as the cause of diseases classified elsewhere
CPT/HCPCS: 36569; 76937; 77001; 80053; 82550; 83735; 85025; 85610; 85652; 86140; 87040; 87070; 87075; 87077; 87186; 87205; 88305; 88312; 88331; 94640; 94760

== ENCOUNTER 2018-07-19 17:44 | Inpatient (IN) | payer MEDICARE, OTHER ==
[2018-07-19] MEDS ORDERED: SODIUM CHLORIDE 0.9% 1,000 ML IV STA (18:12)
[2018-07-19] MEDS ORDERED: SODIUM CHLORIDE 0.9% 500 ML 500 ML IV SCH (18:15)
[2018-07-19] MEDS ORDERED: MORPHINE SULFATE 4 MG/ML SYRINGE IV STA (18:31)
--- NOTE | 2018-07-19 18:45 | ED ---
General Adult HPI - General Source: EMS, RN notes reviewed, old records reviewed Mode of arrival: EMS Limitations: no limitations <Juan Lynn - Last Filed: 07/20/18 03:27> <Eboni Maldonado - Last Filed: 07/20/18 08:10> - General Chief complaint: Extremity Injury, Lower Stated complaint: Knee infection Time Seen by Provider: 07/19/18 17:56 - History of Present Illness Initial comments: 58-year-old male patient past medical history of alcohol abuse, pulmonary embolism, NSTEMI, septic arthritis of left knee presents to ED with 2 days of left knee pain and swelling. Patient was treated for joint infection of left knee after total knee replacement for approximately [address] Ren. Approximate 4 days ago patient was discharged from Dr. Ren care for resolution of left joint infection. Patient is scheduled for a joint aspiration of his left knee in 3 days by his surgeon Dr. Mace. Patient reports that for the last 2 days his left knee has become swollen, warm, painful. Patient was previously ambulatory with pain in her left knee. However patient has now nonambulatory. Patient not been previously evaluated for this problem. Patient denies all other complaints. Patient denies fever chills, nausea vomiting diarrhea, abdominal pain, chest pain, shortness of breath. Systemic: Pt denies fatigue, fever/chills, rash. Pt denies weakness, night sweats, weight loss. Neuro: Pt denies headache, visual disturbances, syncope or pre-syncope. HEENT: Pt denies ocular discharge or irritation, otalgia, rhinorrhea, pharyngitis or notable lymphadenopathy. Cardiopulmonary: Pt denies chest pain, SOB, heart palpitations, dyspnea on exertion. Abdominal/GI: Pt denies abdominal pain, n/v/d. : Pt denies dysuria, burning w/ urination, frequency/urgency. Denies new onset urinary or bowel incontinence. MSK: Pt denies loss of strength or function in extremities. Neuro: Pt denies new onset weakness, paresthesias. (Juan Lynn) - Related Data Home Medications Medication Instructions Recorded Confirmed HYDROcodone/APAP 7.5-325MG [[place] 1 tab PO Q6H PRN 05/06/18 07/19/18 7.5-325] Pantoprazole [Protonix] 40 mg PO DAILY 05/06/18 07/19/18 Rivaroxaban [Xarelto] 20 mg PO DAILY 05/06/18 07/19/18 QUEtiapine [SEROquel] 100 mg PO HS 05/16/18 07/19/18 ALPRAZolam [Xanax] 0.5 mg PO TID PRN 07/19/18 07/19/18 Magnesium Oxide [Mag-Ox] 400 mg PO DAILY 07/19/18 07/19/18 Allergies Allergy/AdvReac Type Severity Reaction Status Date / Time tramadol AdvReac Mild Itching Verified 07/19/18 18:48 Review of Systems ROS Other: All systems not noted in ROS Statement are negative. <Juan Lynn - Last Filed: 07/20/18 03:27> ROS Other: All systems not noted in ROS Statement are negative. <Eboni Maldonado - Last Filed: 07/20/18 08:10> ROS Statement: Those systems with pertinent positive or pertinent negative responses have been documented in the HPI. 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.Alcoholism, recent hospitalization for bilateral pulmonary embolism with clot occluding the left pulmonary artery and evidence of right ventricular strain pattern maintained on anticoagulation, COPD, chronic hypoxic respiratory failure, FEV1 of 51% of predicted with chronic hypoxic respiratory failure, chronic smoker carries more than on the PACU smoking history, alcoholism, history of delirium tremens, history of recurrent falls, history of rib fractures related to falls, GERD, diverticulosis, seizure disorder, osteoarthritis, history of small bowel obstruction secondary to incarcerated right inguinal hernia, History of Any Multi-Drug Resistant Organisms: MRSA Date of last positivie culture/infection: 05/13/18 MDRO Source:: KNEE Past Surgical History: Orthopedic Surgery Additional Past Surgical History / Comment(s): Colonoscopies and polypectomies, 10/21/15 normal cardiac cath, multiple inguinal hernia surg., bilateral knee arthroscopies and pt states bilateral knee arthroplasties."had blood clots removed from lungs at [facility], i'not sure what they did" Past Anesthesia/Blood Transfusion Reactions: No Reported Reaction Past Psychological History: Anxiety, Depression Smoking Status: Heavy tobacco smoker Past Alcohol Use History: Daily, Heavy Past Drug Use History: None Reported - Past Family History Father Family Medical History: Coronary Artery Disease (CAD), Myocardial Infarction (ME ) Additional Family Medical History / Comment(s): Father of a ME at the age of 73 yrs. Mother Family Medical History: Cancer Additional Family Medical History / Comment(s): BREAST CA <Juan Lynn - Last Filed: 07/20/18 03:27> General Exam Limitations: no limitations <Juan Lynn - Last Filed: 07/20/18 03:27> <Eboni Maldonado - Last Filed: 07/20/18 08:10> - General Exam Comments Initial Comments: Constitutional: NAD, AOX3, Pt has pleasant affect. HEENT: NC/AT, trachea midline, neck supple, no lymphadenopathy. Posterior pharynx non erythematous, without exudates. External ears appear normal, without discharge. Mucous membranes moist. Eyes PERRLA, EOM intact. There is no scleral icterus. No pallor noted. Cardiopulmonary: RRR, no murmurs, rubs or gallops, no JVD noted. Lungs CTAB in anterior and posterior jordan. No peripheral edema. Abdominal exam: Abdomen soft and non-distended. Abdomen non-tender to palpation in all 4 quadrants. Bowel sounds active in LLQ. No hepatosplenomegaly. No ecchymosis Neuro: CN II-XII grossly intact. No nuchal rigidity. MSK: L knee moderately edematous, warm to touch. No significant erythema, no drainage. Range of motion limited secondary to pain. +1 distal pulses bilaterally. (Juan Lynn) Vital Signs 07/19/18 07/19/18 07/19/18 17:55 18:59 21:00 Temperature 98.1 F 98.3 F Pulse Rate 90 74 98 Respiratory 18 20 18 Rate Blood Pressure 120/79 107/68 118/78 O2 Sat by Pulse 98 99 95 Oximetry 07/19/18 07/19/18 22:00 23:00 Temperature 98.7 F Pulse Rate 94 93 Respiratory 20 20 Rate Blood Pressure 120/78 142/79 O2 Sat by Pulse 99 95 Oximetry Medical Decision Making - Lab Data Result diagrams: 07/19/18 18:40 07/19/18 18:40 <Juan Lynn - Last Filed: 07/20/18 03:27> - Lab Data Result diagrams: 07/19/18 18:40 07/19/18 18:40 <Eboni Maldonado - Last Filed: 07/20/18 08:10> - Medical Decision Making 58-year-old male patient past medical history of alcohol abuse, pulmonary embolism, NSTEMI, septic arthritis of left knee presents to ED with 2 days of left knee pain and swelling. Patient was treated for joint infection of left knee after total knee replacement for approximately [address] Ren. Approximate 4 days ago patient was discharged from Dr. Ren care for resolution of left joint infection. Patient is scheduled for a joint aspiration of his left knee in 3 days by his surgeon Dr. Mace. Patient reports that for the last 2 days his left knee has become swollen, warm, painful. Patient was previously ambulatory with pain in her left knee. However patient has now nonambulatory. Patient not been previously evaluated for this problem. Patient denies all other complaints. Patient vital signs stable, afebrile. Physical exam displayed: L knee moderately edematous, warm to touch. No significant erythema, no drainage. Range of motion limited secondary to pain. Laboratory investigations revealed mild leukocytosis. CMP noncompressive. ESR elevated at 104, CRP elevated at 180. Plain films of tibia /fibula, knee, chest x-ray did not display acute pathology. Venous Doppler bilaterally did not display any signs of DVT. Patient was started on daptomycin. Pt was additionally put on CIWA due to hx of ETOHism. PT to be admitted to Dr. Holland with Dr. Ren consult. Case discussed in depth with Dr. Maldonado. (Juan Lynn) The history and physical exam were done by the midlevel provider. I was consulted for this patient's care. I reviewed the case with the midlevel provider and based on their presentation of the patient, I agree with the assessment, medical decision making and plan of care as documented. I discussed patient care Dr. Holland who accepts the admission with consult to orthopedics and Dr. Ren for infectious disease. (Eboni Maldonado) - Lab Data Lab Results 07/19/18 07/19/18 07/19/18 Range/Units 18:40 18:40 18:40 WBC 12.2 H (3.8-10.6) k/uL RBC 3.48 L (4.30-5.90) m/uL Hgb 10.1 L (13.0-17.5) gm/dL Hct 33.1 L (39.0-53.0) % MCV 95.4 (80.0-100.0) fL MCH 29.0 (25.0-35.0) pg MCHC 30.4 L (31.0-37.0) g/dL RDW 16.6 H (11.5-15.5) % Plt Count 475 H (150-450) k/uL Neutrophils % 76 % Lymphocytes % 13 % Monocytes % 7 % Eosinophils % 2 % Basophils % 1 % Neutrophils # 9.2 H (1.3-7.7) k/uL Lymphocytes # 1.5 (1.0-4.8) k/uL Monocytes # 0.9 (0-1.0) k/uL Eosinophils # 0.3 (0-0.7) k/uL Basophils # 0.1 (0-0.2) k/uL Hypochromasia Moderate Anisocytosis Slight ESR (0-15) mm/hr PT (9.0-12.0) sec INR (<1.2) APTT (22.0-30.0) sec Sodium 135 L (137-145) mmol/L Potassium 4.5 (3.5-5.1) mmol/L Chloride 104 (98-107) mmol/L Carbon Dioxide 23 (22-30) mmol/L Anion Gap 8 mmol/L BUN 10 (9-20) mg/dL Creatinine 0.76 (0.66-1.25) mg/dL Est GFR (CKD-EPI)AfAm >90 (>60 ml/min/1.73 sqM) Est GFR (CKD-EPI)NonAf >90 (>60 ml/min/1.73 sqM) Glucose 89 (74-99) mg/dL Plasma Lactic Acid Chet 0.7 (0.7-2.0) mmol/L Calcium 8.8 (8.4-10.2) mg/dL Total Bilirubin 1.0 (0.2-1.3) mg/dL AST 20 (17-59) U/L ALT 24 (21-72) U/L Alkaline Phosphatase 94 (38-126) U/L Troponin I (0.000-0.034) ng/mL C-Reactive Protein (<10.0) mg/L Total Protein 5.8 L (6.3-8.2) g/dL Albumin 2.8 L (3.5-5.0) g/dL Urine Color Urine Appearance (Clear) Urine pH (5.0-8.0) Ur Specific Gregory (1.001-1.035) Urine Protein (Negative) Urine Glucose (UA) (Negative) Urine Ketones (Negative) Urine Blood (Negative) Urine Nitrite (Negative) Urine Bilirubin (Negative) Urine Urobilinogen (<2.0) mg/dL Ur Leukocyte Esterase (Negative) 07/19/18 07/19/18 07/19/18 Range/Units 18:40 18:40 18:40 WBC (3.8-10.6) k/uL RBC (4.30-5.90) m/uL Hgb (13.0-17.5) gm/dL Hct (39.0-53.0) % MCV (80.0-100.0) fL MCH (25.0-35.0) pg MCHC (31.0-37.0) g/dL RDW (11.5-15.5) % Plt Count (150-450) k/uL Neutrophils % % Lymphocytes % % Monocytes % % Eosinophils % % Basophils % % Neutrophils # (1.3-7.7) k/uL Lymphocytes # (1.0-4.8) k/uL Monocytes # (0-1.0) k/uL Eosinophils # (0-0.7) k/uL Basophils # (0-0.2) k/uL Hypochromasia Anisocytosis ESR (0-15) mm/hr PT 11.0 (9.0-12.0) sec INR 1.0 (<1.2) APTT 33.7 H (22.0-30.0) sec Sodium (137-145) mmol/L Potassium (3.5-5.1) mmol/L Chloride (98-107) mmol/L Carbon Dioxide (22-30) mmol/L Anion Gap mmol/L BUN (9-20) mg/dL Creatinine (0.66-1.25) mg/dL Est GFR (CKD-EPI)AfAm (>60 ml/min/1.73 sqM) Est GFR (CKD-EPI)NonAf (>60 ml/min/1.73 sqM) Glucose (74-99) mg/dL Plasma Lactic Acid Chet (0.7-2.0) mmol/L Calcium (8.4-10.2) mg/dL Total Bilirubin (0.2-1.3) mg/dL AST (17-59) U/L ALT (21-72) U/L Alkaline Phosphatase (38-126) U/L Troponin I <0.012 (0.000-0.034) ng/mL C-Reactive Protein 180.7 H (<10.0) mg/L Total Protein (6.3-8.2) g/dL Albumin (3.5-5.0) g/dL Urine Color Urine Appearance (Clear) Urine pH (5.0-8.0) Ur Specific Gregory (1.001-1.035) Urine Protein (Negative) Urine Glucose (UA) (Negative) Urine Ketones (Negative) Urine Blood (Negative) Urine Nitrite (Negative) Urine Bilirubin (Negative) Urine Urobilinogen (<2.0) mg/dL Ur Leukocyte Esterase (Negative) 07/19/18 07/19/18 Range/Units 18:40 19:26 WBC (3.8-10.6) k/uL RBC (4.30-5.90) m/uL Hgb (13.0-17.5) gm/dL Hct (39.0-53.0) % MCV (80.0-100.0) fL MCH (25.0-35.0) pg MCHC (31.0-37.0) g/dL RDW (11.5-15.5) % Plt Count (150-450) k/uL Neutrophils % % Lymphocytes % % Monocytes % % Eosinophils % % Basophils % % Neutrophils # (1.3-7.7) k/uL Lymphocytes # (1.0-4.8) k/uL Monocytes # (0-1.0) k/uL Eosinophils # (0-0.7) k/uL Basophils # (0-0.2) k/uL Hypochromasia Anisocytosis ESR 104 H (0-15) mm/hr PT (9.0-12.0) sec INR (<1.2) APTT (22.0-30.0) sec Sodium (137-145) mmol/L Potassium (3.5-5.1) mmol/L Chloride (98-107) mmol/L Carbon Dioxide (22-30) mmol/L Anion Gap mmol/L BUN (9-20) mg/dL Creatinine (0.66-1.25) mg/dL Est GFR (CKD-EPI)AfAm (>60 ml/min/1.73 sqM) Est GFR (CKD-EPI)NonAf (>60 ml/min/1.73 sqM) Glucose (74-99) mg/dL Plasma Lactic Acid Chet (0.7-2.0) mmol/L Calcium (8.4-10.2) mg/dL Total Bilirubin (0.2-1.3) mg/dL AST (17-59) U/L ALT (21-72) U/L Alkaline Phosphatase (38-126) U/L Troponin I (0.000-0.034) ng/mL C-Reactive Protein (<10.0) mg/L Total Protein (6.3-8.2) g/dL Albumin (3.5-5.0) g/dL Urine Color Light Yellow Urine Appearance Clear (Clear) Urine pH 6.0 (5.0-8.0) Ur Specific Gregory 1.004 (1.001-1.035) Urine Protein Negative (Negative) Urine Glucose (UA) Negative (Negative) Urine Ketones Negative (Negative) Urine Blood Negative (Negative) Urine Nitrite Negative (Negative) Urine Bilirubin Negative (Negative) Urine Urobilinogen <2.0 (<2.0) mg/dL Ur Leukocyte Esterase Negative (Negative) Disposition Is patient prescribed a controlled substance at d/c from ED?: No <Juan Lynn - Last Filed: 07/20/18 03:27> <Eboni Maldonado - Last Filed: 07/20/18 08:10> Clinical Impression: Infection of left knee Disposition: ADMITTED IP TO THIS HOSP Condition: Serious
[2018-07-19] MEDS ORDERED: THIAMINE 100 MG/ML 2 ML VIAL IM STA (18:48)
[2018-07-19] MEDS ORDERED: LORazepam 2 MG/ML INJ IV PRN ×3 (18:48)
[2018-07-19 19:20] LABS: Anisocytosis Slight; Basophils # (A) 0.1 k/uL (0-0.2); Basophils % (A) 1 %; Eosinophils # (A) 0.3 k/uL (0-0.7); Eosinophils % (A) 2 %; HCT 33.1 % (39.0-53.0); HGB 10.1 gm/dL (13.0-17.5); Hypochromasia Moderate; Lymphocytes # (A) 1.5 k/uL (1.0-4.8); Lymphocytes % (A) 13 %; MCHC 30.4 g/dL (31.0-37.0); MCV 95.4 fL (80.0-100.0); Mean Platelet Volume 6.4; Monocytes # (A) 0.9 k/uL (0-1.0); Monocytes % (A) 7 %; Neutrophils # (A) 9.2 k/uL (1.3-7.7); Neutrophils % (A) 76 %; Platelet Count 475 k/uL (150-450); RBC 3.48 m/uL (4.30-5.90); RDW 16.6 % (11.5-15.5); WBC 12.2 k/uL (3.8-10.6)
[2018-07-19 19:31] LABS: Partial Thromboplastin Time 33.7 sec (22.0-30.0)
[2018-07-19 19:38] LABS: ALT 24 U/L (21-72); AST 20 U/L (17-59); Albumin 2.8 g/dL (3.5-5.0); Alkaline Phosphatase 94 U/L (38-126); Anion Gap 8 mmol/L; Blood Urea Nitrogen 10 mg/dL (9-20); Calcium 8.8 mg/dL (8.4-10.2); Carbon Dioxide 23 mmol/L (22-30); Chloride 104 mmol/L (98-107); Glucose 89 mg/dL (74-99); Potassium 4.5 mmol/L (3.5-5.1); Sodium 135 mmol/L (137-145); Total Protein 5.8 g/dL (6.3-8.2)
[2018-07-19 19:40] LABS: Appearance,Urine Clear (Clear); Bilirubin,Urine Negative (Negative); Blood,Urine Negative (Negative); Color,Urine Light Yellow; Glucose,Urine (UA) Negative (Negative); Ketones,Urine Negative (Negative); Leukocyte Esterase,Urine Negative (Negative); Nitrite,Urine Negative (Negative); Protein,Urine Negative (Negative); Specific Gravity,Urine 1.004 (1.001-1.035); Urobilinogen,Urine <2.0 mg/dL (<2.0)
--- NOTE | 2018-07-19 20:21 | XR ---
Left tibia and fibula 3 views. History infection and pain. Comparison 01/31/2018. FINDINGS: There is been removal of the left knee prosthesis. There is replacement with bone cement. The ankle j oint show soft tissue swelling. I see no fracture. I see no focal bone destruction. IMPRESSION: Revision of the knee prosthesis with removal of the metal hardware. No evidence of osteomyelitis.
--- NOTE | 2018-07-19 20:23 | XR ---
Left knee 3 views. History pain. Comparison 05/12/2018. FINDINGS: There is been removal of the metal prosthesis. There is replacement with bone cement. There is small knee joint effusion. I see no focal bone destruction. Bones are in anatomic position. IMPRESSION: No change compared to last exam. No focal bone destruction seen to suggest osteomyelitis.
--- NOTE | 2018-07-19 20:24 | XR ---
EXAMINATION TYPE: XR chest 2V DATE OF EXAM: 07/19/2018 COMPARISON: 03/05/2018 HISTORY: Short of breath TECHNIQUE: Frontal and lateral views of the chest are obtained. FINDINGS: There is no heart failure nor confluent pneumonic infiltrate. Costophrenic angles are trice r. There is slight coarsening of interstitial markings. IMPRESSION: Inspiration improved compared to last exam. No heart failure. Mild pulmonary fibrosis.
[2018-07-19] MEDS ORDERED: ACETAMINOPHEN TAB 325 MG TAB PO PRN (22:06)
[2018-07-19] MEDS ORDERED: IBUPROFEN 400 MG TAB PO PRN (22:06)
[2018-07-19] MEDS ORDERED: NALOXONE 0.4 MG/ML 1 ML VIAL IV PRN (22:06)
--- NOTE | 2018-07-19 22:36 | US ---
EXAM: US Duplex Bilateral Lower Extremity Veins CLINICAL HISTORY: ITS.REASON US Reason: Pain TECHNIQUE: Real-time duplex ultrasound scan of the bilateral lower extremity veins integrating B-mode two-dimensional vascular structure, Doppler spectral analysis, color flow Doppler imaging and compression. COMPARISON: No relevant prior studies available. FINDINGS: Right deep veins: No sonographic evidence for thrombosis. The imaged veins demonstrate normal color flow, are normally compressible, with normal phasic flow and/or augmentation response. Right superficial veins: No thrombus in the visualized right great saphenous vein. Left deep veins: No sonographic evidence for thrombosis. The imaged veins demonstrate normal color flow, are normally compressible, with normal phasic flow and/or augmentation response. Left superficial veins: No thrombus in the visualized left great saphenous vein. Soft tissues: No acute findings. No popliteal cyst. IMPRESSION: No sonographic evidence for deep venous thrombosis in the lower extremities.
[2018-07-19] MEDS: THIAMINE 100 MG TAB PO SCH (22:58)
[2018-07-19] MEDS: SODIUM CHLORIDE 0.9% 1,000 ML IV SCH (22:58)
[2018-07-19] MEDS: MORPHINE SULFATE 4 MG/ML SYRINGE IV PRN (23:33)
--- NOTE | 2018-07-20 05:17 | ED ---
Medical Decision Making - Lab Data Result diagrams: 07/19/18 18:40 07/19/18 18:40 Lab Results 07/19/18 07/19/18 07/19/18 Range/Units 18:40 18:40 18:40 WBC 12.2 H (3.8-10.6) k/uL RBC 3.48 L (4.30-5.90) m/uL Hgb 10.1 L (13.0-17.5) gm/dL Hct 33.1 L (39.0-53.0) % MCV 95.4 (80.0-100.0) fL MCH 29.0 (25.0-35.0) pg MCHC 30.4 L (31.0-37.0) g/dL RDW 16.6 H (11.5-15.5) % Plt Count 475 H (150-450) k/uL Neutrophils % 76 % Lymphocytes % 13 % Monocytes % 7 % Eosinophils % 2 % Basophils % 1 % Neutrophils # 9.2 H (1.3-7.7) k/uL Lymphocytes # 1.5 (1.0-4.8) k/uL Monocytes # 0.9 (0-1.0) k/uL Eosinophils # 0.3 (0-0.7) k/uL Basophils # 0.1 (0-0.2) k/uL Hypochromasia Moderate Anisocytosis Slight ESR (0-15) mm/hr PT (9.0-12.0) sec INR (<1.2) APTT (22.0-30.0) sec Sodium 135 L (137-145) mmol/L Potassium 4.5 (3.5-5.1) mmol/L Chloride 104 (98-107) mmol/L Carbon Dioxide 23 (22-30) mmol/L Anion Gap 8 mmol/L BUN 10 (9-20) mg/dL Creatinine 0.76 (0.66-1.25) mg/dL Est GFR (CKD-EPI)AfAm >90 (>60 ml/min/1.73 sqM) Est GFR (CKD-EPI)NonAf >90 (>60 ml/min/1.73 sqM) Glucose 89 (74-99) mg/dL Plasma Lactic Acid Chet 0.7 (0.7-2.0) mmol/L Calcium 8.8 (8.4-10.2) mg/dL Total Bilirubin 1.0 (0.2-1.3) mg/dL AST 20 (17-59) U/L ALT 24 (21-72) U/L Alkaline Phosphatase 94 (38-126) U/L Troponin I (0.000-0.034) ng/mL C-Reactive Protein (<10.0) mg/L Total Protein 5.8 L (6.3-8.2) g/dL Albumin 2.8 L (3.5-5.0) g/dL Urine Color Urine Appearance (Clear) Urine pH (5.0-8.0) Ur Specific [employer] (1.001-1.035) Urine Protein (Negative) Urine Glucose (UA) (Negative) Urine Ketones (Negative) Urine Blood (Negative) Urine Nitrite (Negative) Urine Bilirubin (Negative) Urine Urobilinogen (<2.0) mg/dL Ur Leukocyte Esterase (Negative) 07/19/18 07/19/18 07/19/18 Range/Units 18:40 18:40 18:40 WBC (3.8-10.6) k/uL RBC (4.30-5.90) m/uL Hgb (13.0-17.5) gm/dL Hct (39.0-53.0) % MCV (80.0-100.0) fL MCH (25.0-35.0) pg MCHC (31.0-37.0) g/dL RDW (11.5-15.5) % Plt Count (150-450) k/uL Neutrophils % % Lymphocytes % % Monocytes % % Eosinophils % % Basophils % % Neutrophils # (1.3-7.7) k/uL Lymphocytes # (1.0-4.8) k/uL Monocytes # (0-1.0) k/uL Eosinophils # (0-0.7) k/uL Basophils # (0-0.2) k/uL Hypochromasia Anisocytosis ESR (0-15) mm/hr PT 11.0 (9.0-12.0) sec INR 1.0 (<1.2) APTT 33.7 H (22.0-30.0) sec Sodium (137-145) mmol/L Potassium (3.5-5.1) mmol/L Chloride (98-107) mmol/L Carbon Dioxide (22-30) mmol/L Anion Gap mmol/L BUN (9-20) mg/dL Creatinine (0.66-1.25) mg/dL Est GFR (CKD-EPI)AfAm (>60 ml/min/1.73 sqM) Est GFR (CKD-EPI)NonAf (>60 ml/min/1.73 sqM) Glucose (74-99) mg/dL Plasma Lactic Acid Chet (0.7-2.0) mmol/L Calcium (8.4-10.2) mg/dL Total Bilirubin (0.2-1.3) mg/dL AST (17-59) U/L ALT (21-72) U/L Alkaline Phosphatase (38-126) U/L Troponin I <0.012 (0.000-0.034) ng/mL C-Reactive Protein 180.7 H (<10.0) mg/L Total Protein (6.3-8.2) g/dL Albumin (3.5-5.0) g/dL Urine Color Urine Appearance (Clear) Urine pH (5.0-8.0) Ur Specific [employer] (1.001-1.035) Urine Protein (Negative) Urine Glucose (UA) (Negative) Urine Ketones (Negative) Urine Blood (Negative) Urine Nitrite (Negative) Urine Bilirubin (Negative) Urine Urobilinogen (<2.0) mg/dL Ur Leukocyte Esterase (Negative) 07/19/18 07/19/18 Range/Units 18:40 19:26 WBC (3.8-10.6) k/uL RBC (4.30-5.90) m/uL Hgb (13.0-17.5) gm/dL Hct (39.0-53.0) % MCV (80.0-100.0) fL MCH (25.0-35.0) pg MCHC (31.0-37.0) g/dL RDW (11.5-15.5) % Plt Count (150-450) k/uL Neutrophils % % Lymphocytes % % Monocytes % % Eosinophils % % Basophils % % Neutrophils # (1.3-7.7) k/uL Lymphocytes # (1.0-4.8) k/uL Monocytes # (0-1.0) k/uL Eosinophils # (0-0.7) k/uL Basophils # (0-0.2) k/uL Hypochromasia Anisocytosis ESR 104 H (0-15) mm/hr PT (9.0-12.0) sec INR (<1.2) APTT (22.0-30.0) sec Sodium (137-145) mmol/L Potassium (3.5-5.1) mmol/L Chloride (98-107) mmol/L Carbon Dioxide (22-30) mmol/L Anion Gap mmol/L BUN (9-20) mg/dL Creatinine (0.66-1.25) mg/dL Est GFR (CKD-EPI)AfAm (>60 ml/min/1.73 sqM) Est GFR (CKD-EPI)NonAf (>60 ml/min/1.73 sqM) Glucose (74-99) mg/dL Plasma Lactic Acid Chet (0.7-2.0) mmol/L Calcium (8.4-10.2) mg/dL Total Bilirubin (0.2-1.3) mg/dL AST (17-59) U/L ALT (21-72) U/L Alkaline Phosphatase (38-126) U/L Troponin I (0.000-0.034) ng/mL C-Reactive Protein (<10.0) mg/L Total Protein (6.3-8.2) g/dL Albumin (3.5-5.0) g/dL Urine Color Light Yellow Urine Appearance Clear (Clear) Urine pH 6.0 (5.0-8.0) Ur Specific [employer] 1.004 (1.001-1.035) Urine Protein Negative (Negative) Urine Glucose (UA) Negative (Negative) Urine Ketones Negative (Negative) Urine Blood Negative (Negative) Urine Nitrite Negative (Negative) Urine Bilirubin Negative (Negative) Urine Urobilinogen <2.0 (<2.0) mg/dL Ur Leukocyte Esterase Negative (Negative) - EKG Data -: EKG Interpreted by Me (and dr gill) EKG Comments: Ventricular rate 89, WA interval 132, QRS 78, QT/QTC 388/472. Normal sinus rhythm. Low voltage QRS, no concern for acute ischemia. Disposition Clinical Impression: Infection of left knee Disposition: ADMITTED IP TO THIS HOSP Condition: Serious Is patient prescribed a controlled substance at d/c from ED?: No
[2018-07-20] MEDS: MORPHINE SULFATE 4 MG/ML SYRINGE IV PRN ×2 (06:08→22:02)
[2018-07-20 08:28] LABS: Anisocytosis Slight; Basophils # (A) 0.1 k/uL (0-0.2); Basophils % (A) 1 %; Eosinophils # (A) 0.3 k/uL (0-0.7); Eosinophils % (A) 3 %; HCT 31.5 % (39.0-53.0); HGB 9.5 gm/dL (13.0-17.5); Hypochromasia Marked; Lymphocytes # (A) 1.5 k/uL (1.0-4.8); Lymphocytes % (A) 13 %; MCH 29.1 pg (25.0-35.0); MCHC 30.2 g/dL (31.0-37.0); MCV 96.3 fL (80.0-100.0); Mean Platelet Volume 6.4; Monocytes % (A) 9 %; Neutrophils # (A) 8.2 k/uL (1.3-7.7); Neutrophils % (A) 73 %; Platelet Count 478 k/uL (150-450); RBC 3.27 m/uL (4.30-5.90); RDW 16.4 % (11.5-15.5); WBC 11.3 k/uL (3.8-10.6)
[2018-07-20 08:57] LABS: Anion Gap 8 mmol/L; Blood Urea Nitrogen 8 mg/dL (9-20); Calcium 8.6 mg/dL (8.4-10.2); Carbon Dioxide 22 mmol/L (22-30); Chloride 109 mmol/L (98-107); Glucose 82 mg/dL (74-99); Potassium 4.2 mmol/L (3.5-5.1); Sodium 139 mmol/L (137-145)
[2018-07-20] MEDS ORDERED: ALPRAZolam 0.5 MG TAB PO PRN (08:59)
--- NOTE | 2018-07-20 09:34 | P.CONS ---
History of Present Illness - Reason for Consult Consult date: 07/20/18 Chronic postop infection, established patient - History of Present Illness 58-year-old male who has a history of degenerative joint disease status post left total knee arthroplasty in 2014. Between that time in February 2018 he had ongoing significant medical difficulties related to his alcoholism and tobacco use and eventually the left knee failed and had evidence of infection. The patient consequently required hospitalization for removal of the total knee arthroplasty and placement of an antibiotic spacer. This hospitalization was very complicated in that he developed alcohol withdrawal and required stay in intensive care unit where he was treated for his delirium tremens as well as a sepsis from his infected left total knee arthroplasty. He was treated for many days and eventually was transferred to the [facility] in [place] for his antibiotic therapy and rehab. In April 2018 he underwent removal of the initial antibiotic spacer which was replaced with a new antibiotic spacer due to persistent infection. Patient was discharged on daptomycin for approximately 7 weeks and on last Wednesday he was checked in the office and was taken off antibiotics. He states he was fine for 2 days and then developed chills and pain with worsening pain to the left knee to the point that he was nonambulatory. He states his appetite has been okay. He denies any new injury, twisting, repetitive motion to the knee. He came into [facility] emergency center for evaluation. X-rays of the left tib-fib and knee showed no focal bone destruction to suggest osteomyelitis. Check stat x-ray shows no heart failure. Mild pulmonary fibrosis. Patient was admitted to the [facility] floor and continued on daptomycin. Consult in place for Dr. Traylor. Plan was for left knee aspiration this Wednesday and joint replacement on August 02. Review of Systems All systems: negative Constitutional: Reports chills, Reports fatigue, Denies anorexia, Denies fever, Denies poor appetite Eyes: denies blurred vision, denies pain Ears, nose, mouth and throat: Denies dental pain, Denies dysphagia, Denies headache, Denies mouth pain, Denies sore throat, Denies vertigo Cardiovascular: Denies chest pain, Denies decreased exercise tolerance, Denies dyspnea on exertion, Denies edema, Denies shortness of breath, Denies syncope Respiratory: Denies cough, Denies cough with sputum, Denies dyspnea, Denies excessive sputum, Denies hemoptysis, Denies home oxygen, Denies wheezing Gastrointestinal: Denies abdominal pain, Denies diarrhea, Denies loss of appetite, Denies nausea, Denies vomiting Genitourinary: Denies dysuria, Denies urinary frequency Musculoskeletal: Denies frequent falls, Denies myalgias Musculoskeletal: left: knee pain, knee stiffness, knee swelling Integumentary: Reports color changes, Denies pruritus, Denies rash, Denies wounds Neurological: Denies aphasia, Denies change in mentation, Denies numbness, Denies seizures, Denies weakness Psychiatric: Denies anxiety, Denies depression Endocrine: Denies fatigue, Denies weight change Past Medical History Past Medical History: Deep Vein Thrombosis (DVT), GERD/Reflux, Osteoarthritis ( OA), Pulmonary Embolus (PE), Seizure Disorder, Syncope Additional Past Medical History / Comment(s): pt statedhe had a recent flu vaccine-board writer unable to verify date at time of this admit.Alcoholism, recent hospitalization for bilateral pulmonary embolism with clot occluding the left pulmonary artery and evidence of right ventricular strain pattern maintained on anticoagulation, COPD, chronic hypoxic respiratory failure, FEV1 of 51% of predicted with chronic hypoxic respiratory failure, chronic smoker carries more than on the PACU smoking history, alcoholism, history of delirium tremens, history of recurrent falls, history of rib fractures related to falls, GERD, diverticulosis, seizure disorder, osteoarthritis, history of small bowel obstruction secondary to incarcerated right inguinal hernia, History of Any Multi-Drug Resistant Organisms: MRSA Year Discovered:: 05/13/18 MDRO Source:: KNEE Past Surgical History: Orthopedic Surgery Additional Past Surgical History / Comment(s): Colonoscopies and polypectomies, 10/21/15 normal cardiac cath, multiple inguinal hernia surg., bilateral knee arthroscopies and pt states bilateral knee arthroplasties."had blood clots removed from lungs at [facility], i'not sure what they did" Past Anesthesia/Blood Transfusion Reactions: No Reported Reaction Past Psychological History: Anxiety, Depression Smoking Status: Heavy tobacco smoker Past Alcohol Use History: Daily, Heavy Additional Past Alcohol Use History / Comment(s): Patient is a smoker of a half a pack of cigarettes per day since she was 14 years of age. He does have history of heavy alcohol use with factor and beer but states he has not been drinking at all. He is . He lives independently. Past Drug Use History: None Reported - Past Family History Father Family Medical History: Coronary Artery Disease (CAD), Myocardial Infarction (ID ) Additional Family Medical History / Comment(s): Father of a ID at the age of 73 yrs. Mother Family Medical History: Cancer Additional Family Medical History / Comment(s): BREAST CA Medications and Allergies Home Medications Medication Instructions Recorded Confirmed Type HYDROcodone/APAP 7.5-325MG [Talent 1 tab PO Q6H PRN 05/06/18 07/19/18 History 7.5-325] Pantoprazole [Protonix] 40 mg PO DAILY 05/06/18 07/19/18 History Rivaroxaban [Xarelto] 20 mg PO DAILY 05/06/18 07/19/18 History QUEtiapine [SEROquel] 100 mg PO HS 05/16/18 07/19/18 History ALPRAZolam [Xanax] 0.5 mg PO TID PRN 07/19/18 07/19/18 History Magnesium Oxide [Mag-Ox] 400 mg PO DAILY 07/19/18 07/19/18 History Allergies Allergy/AdvReac Type Severity Reaction Status Date / Time tramadol AdvReac Mild Itching Verified 07/19/18 18:48 Physical Exam Vitals: Vital Signs Temp Pulse Pulse Resp BP BP Pulse Ox 07/19/18 23:25 97.6 F 101 H 18 113/75 94 L 07/19/18 23:00 98.7 F 93 20 142/79 95 07/19/18 22:00 94 20 120/78 99 07/19/18 21:00 98.3 F 98 18 118/78 95 07/19/18 18:59 74 20 107/68 99 07/19/18 17:55 98.1 F 90 18 120/79 98 Intake and Output 07/19/18 07/20/18 07/20/18 22:59 06:59 14:59 Intake Total 480 Output Total 380 Balance 100 Intake: Intake, IV Titration 480 Amount Sodium Chloride 0.9% 1, 480 000 ml @ 80 mls/hr IV . [id number] [facility] Rx#:[id number] Output: Urine 380 Other: Weight 72.575 kg Gen: 58-year-old male appears to be uncomfortable due to left knee pain HEENT: Anicteric conjunctiva are pink and oral mucous membranes are somewhat dry , grossly intact without significant lesions, there is no thrush. Neck: The neck is supple without significant lymphadenopathy or thyromegaly. Lungs: Symmetrical air entry is noted scattered expiratory wheeze. Heart: Regular rate and rhythm with an audible S1-S2, no S3 no S4. There is no significant murmur click or rub, PMI was nondisplaced. Abdomen: Positive bowel sounds soft and nontender without palpable masses or organomegaly. There was no guarding or rebound. Extremities: The upper extremities have excellent pulses they are symmetric, no significant petechiae or telangiectasia. No splinter hemorrhages were noted. PICC line in place to the right upper arm. The right foot shows some erythema, warmth and edema. Dorsalis pedis +1 bilaterally. Left knee shows extensive scars with erythema, edema, warmth, tenderness. No open wound. Neuro: Awake alert oriented to person place and time. There are no acute new gross focal sensory motor deficits. Results Results: Laboratory Results WBC 11.3 k/uL (3.8-10.6) H 07/20/18 08:04 RBC 3.27 m/uL (4.30-5.90) L 07/20/18 08:04 Hgb 9.5 gm/dL (13.0-17.5) L 07/20/18 08:04 Hct 31.5 % (39.0-53.0) L 07/20/18 08:04 MCV 96.3 fL (80.0-100.0) 07/20/18 08:04 MCH 29.1 pg (25.0-35.0) 07/20/18 08:04 MCHC 30.2 g/dL (31.0-37.0) L 07/20/18 08:04 RDW 16.4 % (11.5-15.5) H 07/20/18 08:04 Plt Count 478 k/uL (150-450) H 07/20/18 08:04 Neutrophils % 73 % 07/20/18 08:04 Lymphocytes % 13 % 07/20/18 08:04 Monocytes % 9 % 07/20/18 08:04 Eosinophils % 3 % 07/20/18 08:04 Basophils % 1 % 07/20/18 08:04 Neutrophils # 8.2 k/uL (1.3-7.7) H 07/20/18 08:04 Lymphocytes # 1.5 k/uL (1.0-4.8) 07/20/18 08:04 Monocytes # 1.0 k/uL (0-1.0) 07/20/18 08:04 Eosinophils # 0.3 k/uL (0-0.7) 07/20/18 08:04 Basophils # 0.1 k/uL (0-0.2) 07/20/18 08:04 Hypochromasia Marked 07/20/18 08:04 Anisocytosis Slight 07/20/18 08:04 ESR 104 mm/hr (0-15) H 07/19/18 18:40 PT 11.0 sec (9.0-12.0) 07/19/18 18:40 INR 1.0 (<1.2) 07/19/18 18:40 APTT 33.7 sec (22.0-30.0) H 07/19/18 18:40 Sodium 139 mmol/L (137-145) 07/20/18 08:04 Potassium 4.2 mmol/L (3.5-5.1) 07/20/18 08:04 Chloride 109 mmol/L (98-107) H 07/20/18 08:04 Carbon Dioxide 22 mmol/L (22-30) 07/20/18 08:04 Anion Gap 8 mmol/L 07/20/18 08:04 BUN 8 mg/dL (9-20) L 07/20/18 08:04 Creatinine 0.77 mg/dL (0.66-1.25) 07/20/18 08:04 Est GFR (CKD-EPI)AfAm >90 (>60 ml/min/1.73 sqM) 07/20/18 08:04 Est GFR (CKD-EPI)NonAf >90 (>60 ml/min/1.73 sqM) 07/20/18 08:04 Glucose 82 mg/dL (74-99) 07/20/18 08:04 Plasma Lactic Acid Chet 0.7 mmol/L (0.7-2.0) 07/19/18 18:40 Calcium 8.6 mg/dL (8.4-10.2) 07/20/18 08:04 Total Bilirubin 1.0 mg/dL (0.2-1.3) 07/19/18 18:40 AST 20 U/L (17-59) 07/19/18 18:40 ALT 24 U/L (21-72) 07/19/18 18:40 Alkaline Phosphatase 94 U/L (38-126) 07/19/18 18:40 Troponin I <0.012 ng/mL (0.000-0.034) 07/19/18 18:40 C-Reactive Protein 180.7 mg/L (<10.0) H 07/19/18 18:40 Total Protein 5.8 g/dL (6.3-8.2) L 07/19/18 18:40 Albumin 2.8 g/dL (3.5-5.0) L 07/19/18 18:40 Urine Color Light Yellow 07/19/18 19:26 Urine Appearance Clear (Clear) 07/19/18 19:26 Urine pH 6.0 (5.0-8.0) 07/19/18 19:26 Ur Specific [place] 1.004 (1.001-1.035) 07/19/18 19:26 Urine Protein Negative (Negative) 07/19/18 19:26 Urine Glucose (UA) Negative (Negative) 07/19/18 19: Urine Ketones Negative (Negative) 07/19/18 19: Urine Blood Negative (Negative) 07/19/18 19:26 Urine Nitrite Negative (Negative) 07/19/18 19: Urine Bilirubin Negative (Negative) 07/19/18 19:26 Urine Urobilinogen <2.0 mg/dL (<2.0) 07/19/18 19:26 Ur Leukocyte Esterase Negative (Negative) 07/19/18 19:26 CBC & Chem 7: 07/20/18 08:04 07/20/18 08:04 Labs: Abnormal Lab Results - Last 24 Hours (Table) 07/19/18 07/19/18 07/19/18 Range/Units 18:40 18:40 18:40 WBC 12.2 H (3.8-10.6) k/uL RBC 3.48 L (4.30-5.90) m/uL Hgb 10.1 L (13.0-17.5) gm/dL Hct 33.1 L (39.0-53.0) % MCHC 30.4 L (31.0-37.0) g/dL RDW 16.6 H (11.5-15.5) % Plt Count 475 H (150-450) k/uL Neutrophils # 9.2 H (1.3-7.7) k/uL ESR (0-15) mm/hr APTT 33.7 H (22.0-30.0) sec Sodium 135 L (137-145) mmol/L Chloride (98-107) mmol/L BUN (9-20) mg/dL C-Reactive Protein (<10.0) mg/L Total Protein 5.8 L (6.3-8.2) g/dL Albumin 2.8 L (3.5-5.0) g/dL 07/19/18 07/19/18 07/20/18 Range/Units 18:40 18:40 08:04 WBC 11.3 H (3.8-10.6) k/uL RBC 3.27 L (4.30-5.90) m/uL Hgb 9.5 L (13.0-17.5) gm/dL Hct 31.5 L (39.0-53.0) % MCHC 30.2 L (31.0-37.0) g/dL RDW 16.4 H (11.5-15.5) % Plt Count 478 H (150-450) k/uL Neutrophils # 8.2 H (1.3-7.7) k/uL ESR 104 H (0-15) mm/hr APTT (22.0-30.0) sec Sodium (137-145) mmol/L Chloride (98-107) mmol/L BUN (9-20) mg/dL C-Reactive Protein 180.7 H (<10.0) mg/L Total Protein (6.3-8.2) g/dL Albumin (3.5-5.0) g/dL 07/20/18 Range/Units 08:04 WBC (3.8-10.6) k/uL RBC (4.30-5.90) m/uL Hgb (13.0-17.5) gm/dL Hct (39.0-53.0) % MCHC (31.0-37.0) g/dL RDW (11.5-15.5) % Plt Count (150-450) k/uL Neutrophils # (1.3-7.7) k/uL ESR (0-15) mm/hr APTT (22.0-30.0) sec Sodium (137-145) mmol/L Chloride 109 H (98-107) mmol/L BUN 8 L (9-20) mg/dL C-Reactive Protein (<10.0) mg/L Total Protein (6.3-8.2) g/dL Albumin (3.5-5.0) g/dL Assessment and Plan Plan: This is a 58-year-old male presents to Hospital status post revision with antibiotic spacer to the left total knee arthroplasty. Patient has completed recent course of IV antibiotics and was planned for aspiration Wednesday and joint replacement on August 02. Patient presents with continued left knee septic arthritis. Patient is currently on daptomycin which will be continued. Blood culture is status received. CRP was ordered by ER. He has PICC line in place to the right upper arm. Continue supportive care. Further recommendations as patient progresses. The above dictated assessment and findings were discussed with Dr. Ren. The impression and plan of care have been directed as dictated. Morena Shine nurse practitioner acting as scribe for Dr. Ren.
--- NOTE | 2018-07-20 11:01 | P.HPIM ---
History of Present Illness H&P Date: 07/20/18 This is a 58-year-old male patient of Dr. Edward. Patient presented to the hospital with complaints of increased left knee pain and swelling for the past 2 days. Patient has been treated for joint infection of the left knee status post total left knee replacement. Patient has been getting treated for infection for the past [address] Ren. Patient is scheduled for joint aspiration of the left knee Dr. traylor this Wednesday. Patient reports that he was unable to bear any weight on the knee. Patient has a additional medical history of alcohol abuse, pulmonary embolism in which he is on Zaroxolyn , non-STEMI, osteoarthritis, seizure disorder, COPD, syncope, anxiety and depression. Chest x-ray completed ER showing inspiration improved compared to last exam no heart failure mild pulmonary fibrosis. Knee x-ray completed showing no change compared to last exam no focal bone destruction seen to suggest osteomyelitis. Tibia-fibula x-ray completed showing revision of the knee prosthetic with removal of the metal hardware no evidence of osteomyelitis. Venous Doppler ultrasound completed showing no sonographic evidence for DVT in lower extremity. EKG completed showing normal sinus rhythm low voltage QRS. Patient has been started on daptomycin for IV antibiotics. Dr. Ren has been consulted. Blood culture has been ordered. Dr. pagan also consulted for orthopedic surgery. Patient also started on alcohol withdrawal protocol. Patient does report his last drink was a couple days ago. At this time patient denies any chest pain or shortness breath. Patient denies nausea vomiting or diarrhea. Patient denies any urinary burning or frequency. Patient is complaining of left knee pain. At this time will hold patient's Xarleto and start patient on Lovenox 1 mg/kg twice a day until evaluated by surgical services. 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 unable to verify date at time of this admit.Alcoholism, recent hospitalization for bilateral pulmonary embolism with clot occluding the left pulmonary artery and evidence of right ventricular strain pattern maintained on anticoagulation, COPD, chronic hypoxic respiratory failure, FEV1 of 51% of predicted with chronic hypoxic respiratory failure, chronic smoker carries more than on the PACU smoking history, alcoholism, history of delirium tremens, history of recurrent falls, history of rib fractures related to falls, GERD, diverticulosis, seizure disorder, osteoarthritis, history of small bowel obstruction secondary to incarcerated right inguinal hernia, History of Any Multi-Drug Resistant Organisms: MRSA Date of last positivie culture/infection: 05/13/18 MDRO Source:: KNEE Past Surgical History: Orthopedic Surgery Additional Past Surgical History / Comment(s): Colonoscopies and polypectomies, 10/21/15 normal cardiac cath, multiple inguinal hernia surg., bilateral knee arthroscopies and pt states bilateral knee arthroplasties."had blood clots removed from lungs at [facility], i'not sure what they did" Past Anesthesia/Blood Transfusion Reactions: No Reported Reaction Past Psychological History: Anxiety, Depression Smoking Status: Heavy tobacco smoker Past Alcohol Use History: Daily, Heavy Additional Past Alcohol Use History / Comment(s): Patient is a smoker of a half a pack of cigarettes per day since she was 14 years of age. He does have history of heavy alcohol use with factor and beer but states he has not been drinking at all. He is . He lives independently. Past Drug Use History: None Reported - Past Family History Father Family Medical History: Coronary Artery Disease (CAD), Myocardial Infarction (SD ) Additional Family Medical History / Comment(s): Father of a SD at the age of 73 yrs. Mother Family Medical History: Cancer Additional Family Medical History / Comment(s): BREAST CA Medications and Allergies Home Medications Medication Instructions Recorded Confirmed Type HYDROcodone/APAP 7.5-325MG [[place] 1 tab PO Q6H PRN 05/06/18 07/19/18 History 7.5-325] Pantoprazole [Protonix] 40 mg PO DAILY 05/06/18 07/19/18 History Rivaroxaban [Xarelto] 20 mg PO DAILY 05/06/18 07/19/18 History QUEtiapine [SEROquel] 100 mg PO HS 05/16/18 07/19/18 History ALPRAZolam [Xanax] 0.5 mg PO TID PRN 07/19/18 07/19/18 History Magnesium Oxide [Mag-Ox] 400 mg PO DAILY 07/19/18 07/19/18 History Allergies Allergy/AdvReac Type Severity Reaction Status Date / Time tramadol AdvReac Mild Itching Verified 07/19/18 18:48 Physical Exam Vitals: Vital Signs Temp Pulse Pulse Resp BP BP Pulse Ox 07/19/18 23:25 97.6 F 101 H 18 113/75 94 L 07/19/18 23:00 98.7 F 93 20 142/79 95 07/19/18 22:00 94 20 120/78 99 07/19/18 21:00 98.3 F 98 18 118/78 95 07/19/18 18:59 74 20 107/68 99 07/19/18 17:55 98.1 F 90 18 120/79 98 Intake and Output 07/19/18 07/20/18 07/20/18 22:59 06:59 14:59 Intake Total 480 Output Total 380 Balance 100 Intake: Intake, IV Titration 480 Amount Sodium Chloride 0.9% 1, 480 000 ml @ 80 mls/hr IV . [id number] [facility] Rx#:[id number] Output: Urine 380 Other: Weight 72.575 kg Head normocephalic Neck supple Lungs clear to auscultation bilaterally no wheezing or crackles Heart regular rate and rhythm S1-S2, no rub or gallop Abdomen is soft nontender nondistended positive bowel sounds no hepatosplenomegaly Extremities left knee edema and erythema Neuro alert and orientated to 3 Results CBC & Chem 7: 07/20/18 08:04 07/20/18 08:04 Labs: Abnormal Lab Results - Last 24 Hours (Table) 07/19/18 07/19/18 07/19/18 Range/Units 18:40 18:40 18:40 WBC 12.2 H (3.8-10.6) k/uL RBC 3.48 L (4.30-5.90) m/uL Hgb 10.1 L (13.0-17.5) gm/dL Hct 33.1 L (39.0-53.0) % MCHC 30.4 L (31.0-37.0) g/dL RDW 16.6 H (11.5-15.5) % Plt Count 475 H (150-450) k/uL Neutrophils # 9.2 H (1.3-7.7) k/uL ESR (0-15) mm/hr APTT 33.7 H (22.0-30.0) sec Sodium 135 L (137-145) mmol/L Chloride (98-107) mmol/L BUN (9-20) mg/dL C-Reactive Protein (<10.0) mg/L Total Protein 5.8 L (6.3-8.2) g/dL Albumin 2.8 L (3.5-5.0) g/dL 07/19/18 07/19/18 07/20/18 Range/Units 18:40 18:40 08:04 WBC 11.3 H (3.8-10.6) k/uL RBC 3.27 L (4.30-5.90) m/uL Hgb 9.5 L (13.0-17.5) gm/dL Hct 31.5 L (39.0-53.0) % MCHC 30.2 L (31.0-37.0) g/dL RDW 16.4 H (11.5-15.5) % Plt Count 478 H (150-450) k/uL Neutrophils # 8.2 H (1.3-7.7) k/uL ESR 104 H (0-15) mm/hr APTT (22.0-30.0) sec Sodium (137-145) mmol/L Chloride (98-107) mmol/L BUN (9-20) mg/dL C-Reactive Protein 180.7 H (<10.0) mg/L Total Protein (6.3-8.2) g/dL Albumin (3.5-5.0) g/dL 07/20/18 Range/Units 08:04 WBC (3.8-10.6) k/uL RBC (4.30-5.90) m/uL Hgb (13.0-17.5) gm/dL Hct (39.0-53.0) % MCHC (31.0-37.0) g/dL RDW (11.5-15.5) % Plt Count (150-450) k/uL Neutrophils # (1.3-7.7) k/uL ESR (0-15) mm/hr APTT (22.0-30.0) sec Sodium (137-145) mmol/L Chloride 109 H (98-107) mmol/L BUN 8 L (9-20) mg/dL C-Reactive Protein (<10.0) mg/L Total Protein (6.3-8.2) g/dL Albumin (3.5-5.0) g/dL Thrombosis Risk Factor Assmnt - Choose All That Apply Any of the Below Risk Factors Present?: Yes Each Factor Represents 1 point: Age 41-60 years Other Risk Factors: No Other congenital or acquired thrombophilia - If yes, enter type in comment: No Thrombosis Risk Factor Assessment Total Risk Factor Score: 1 Thrombosis Risk Factor Assessment Level: Low Risk Assessment and Plan Assessment: 1. 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 Left knee x-ray completed showing no change compared to last exam. No focal bone destruction seen to suggest osteomyelitis. X-ray tibia and fibula completed showing revision of the knee status removal of metal hardware. No evidence of osteo myelitis. Venous Doppler showing no sonographic evidence for DVT in the lower extremities. Patient has been followed by Dr. Ren. Patient currently started on daptomycin for IV antibiotics. Blood culture has been ordered. Infectious disease is following. Dr. Traylor for Orthopedic surgery has been consulted 2. History of PE and DVT status post [place] filter in February 2018 due to GI bleeding. Patient's home Xarelto dose currently on hold until surgical services evaluate. Patient started on Lovenox 1 mg/kg twice a day 3. History of GI bleed due to linear erosions or ulcerations in the mid distal esophagus consistent with reflux esophagitis 4. History of alcohol abuse. Patient started on alcohol withdrawal protocol 5. History of COPD no exacerbation at this time DVT prophylaxis Lovenox. GI prophylaxis Protonix Time with Patient: Greater than 30 (Greater than 60% of the total time spent in counseling and coordination of care. I performed an examination of the patient and discussed their management with the Nurse Practitioner. I have reviewed the Nurse Practitioner's notes and agree with the documented findings and plan of care)
--- NOTE | 2018-07-20 11:08 | P.CNOR ---
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 Past medical history is significant for alcoholism, tobacco use, GERD, seizure disorder, syncope and COPD. Patient originally underwent left total knee arthroplasty on 10/26/2014. Patient first developed signs of infection in the summer of 2017 and the first stage I revision left total knee arthroplasty with placement of antibiotic spacer was done on 03/01/2018. Stage II revision left total knee arthroplasty was scheduled for 05/13/2018, but was unable to be done due to persistent infection of the left knee. Therefore, patient underwent a stage I revision left total knee with placement of a new antibiotic spacer on 05/13/2018. Patient has been on daptomycin via PICC line per infectious disease. Patient is currently on Xarelto. Patient has a history of DVT and pulmonary embolism and underwent placement of a [place] filter on 03/04/[address] Martinez. Patient states that he has been off of his antibiotics since 07/15/2018 in preparation for stage II revision left total knee arthroplasty scheduled for 08/02/[address] Bassem Traylor. Patient states that yesterday he presented to the emergency room via EMS due to increasing pain in the left knee. Patient states that he was unable to walk due to the pain. Patient denies any injury, shortness breath, chest pain, fever /chills, numbness, tingling or weakness. Review of Systems See HPI. 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 unable to verify date at time of this admit.Alcoholism, recent hospitalization for bilateral pulmonary embolism with clot occluding the left pulmonary artery and evidence of right ventricular strain pattern maintained on anticoagulation, COPD, chronic hypoxic respiratory failure, FEV1 of 51% of predicted with chronic hypoxic respiratory failure, chronic smoker carries more than on the PACU smoking history, alcoholism, history of delirium tremens, history of recurrent falls, history of rib fractures related to falls, GERD, diverticulosis, seizure disorder, osteoarthritis, history of small bowel obstruction secondary to incarcerated right inguinal hernia, History of Any Multi-Drug Resistant Organisms: MRSA Year Discovered:: 05/13/18 MDRO Source:: KNEE Past Surgical History: Orthopedic Surgery Additional Past Surgical History / Comment(s): Colonoscopies and polypectomies, 10/21/15 normal cardiac cath, multiple inguinal hernia surg., bilateral knee arthroscopies and pt states bilateral knee arthroplasties."had blood clots removed [facility] lungs at [facility], i'not sure what they did" Past Anesthesia/Blood Transfusion Reactions: No Reported Reaction Past Psychological History: Anxiety, Depression Smoking Status: Heavy tobacco smoker Past Alcohol Use History: Daily, Heavy Past Drug Use History: None Reported - Past Family History Father Family Medical History: Coronary Artery Disease (CAD), Myocardial Infarction (ND ) Additional Family Medical History / Comment(s): Father of a ND at the age of 73 yrs. Mother Family Medical History: Cancer Additional Family Medical History / Comment(s): BREAST CA Medications and Allergies Home Medications Medication Instructions Recorded Confirmed Type HYDROcodone/APAP 7.5-325MG [[place] 1 tab PO Q6H PRN 05/06/18 07/19/18 History 7.5-325] Pantoprazole [Protonix] 40 mg PO DAILY 05/06/18 07/19/18 History Rivaroxaban [Xarelto] 20 mg PO DAILY 05/06/18 07/19/18 History QUEtiapine [SEROquel] 100 mg PO HS 05/16/18 07/19/18 History ALPRAZolam [Xanax] 0.5 mg PO TID PRN 07/19/18 07/19/18 History Magnesium Oxide [Mag-Ox] 400 mg PO DAILY 07/19/18 07/19/18 History Allergies Allergy/AdvReac Type Severity Reaction Status Date / Time tramadol AdvReac Mild Itching Verified 07/19/18 18:48 Physical Examination Vital signs are stable. Patient is in no acute distress and is alert and oriented 3. There is mild swelling of the left knee. No erythema. Incision is well-healed and intact. Patient has limited range of motion of the left knee due to pain. Left knee is tender to palpation. Calf is soft and nontender to palpation. Sensation intact. Neurovascular status and circulatory status are intact. Exams of the head, neck, bilateral upper extremities and right lower extremity are within normal limits. Results A Doppler ultrasound of the left lower extremity is negative for DVT. X-rays of the left tibia, fibula and left knee show antibiotic spacer in good position and alignment. - Labs Labs: Abnormal Lab Results - Last 24 Hours (Table) 07/19/18 07/19/18 07/19/18 Range/Units 18:40 18:40 18:40 WBC 12.2 H (3.8-10.6) k/uL RBC 3.48 L (4.30-5.90) m/uL Hgb 10.1 L (13.0-17.5) gm/dL Hct 33.1 L (39.0-53.0) % MCHC 30.4 L (31.0-37.0) g/dL RDW 16.6 H (11.5-15.5) % Plt Count 475 H (150-450) k/uL Neutrophils # 9.2 H (1.3-7.7) k/uL ESR (0-15) mm/hr APTT 33.7 H (22.0-30.0) sec Sodium 135 L (137-145) mmol/L Chloride (98-107) mmol/L BUN (9-20) mg/dL C-Reactive Protein (<10.0) mg/L Total Protein 5.8 L (6.3-8.2) g/dL Albumin 2.8 L (3.5-5.0) g/dL 07/19/18 07/19/18 07/20/18 Range/Units 18:40 18:40 08:04 WBC 11.3 H (3.8-10.6) k/uL RBC 3.27 L (4.30-5.90) m/uL Hgb 9.5 L (13.0-17.5) gm/dL Hct 31.5 L (39.0-53.0) % MCHC 30.2 L (31.0-37.0) g/dL RDW 16.4 H (11.5-15.5) % Plt Count 478 H (150-450) k/uL Neutrophils # 8.2 H (1.3-7.7) k/uL ESR 104 H (0-15) mm/hr APTT (22.0-30.0) sec Sodium (137-145) mmol/L Chloride (98-107) mmol/L BUN (9-20) mg/dL C-Reactive Protein 180.7 H (<10.0) mg/L Total Protein (6.3-8.2) g/dL Albumin (3.5-5.0) g/dL 07/20/18 Range/Units 08:04 WBC (3.8-10.6) k/uL RBC (4.30-5.90) m/uL Hgb (13.0-17.5) gm/dL Hct (39.0-53.0) % MCHC (31.0-37.0) g/dL RDW (11.5-15.5) % Plt Count (150-450) k/uL Neutrophils # (1.3-7.7) k/uL ESR (0-15) mm/hr APTT (22.0-30.0) sec Sodium (137-145) mmol/L Chloride 109 H (98-107) mmol/L BUN 8 L (9-20) mg/dL C-Reactive Protein (<10.0) mg/L Total Protein (6.3-8.2) g/dL Albumin (3.5-5.0) g/dL H & H 07/19/18 07/20/18 Range/Units 18:40 08:04 Hgb 10.1 L 9.5 L (13.0-17.5) gm/dL Hct 33.1 L 31.5 L (39.0-53.0) % Coagulation 07/19/18 Range/Units 18:40 INR 1.0 (<1.2) Result Diagrams: 07/20/18 08:04 07/20/18 08:04 Assessment and Plan Assessment: Persistent infection of left knee. Status post stage 1 revision with placement of new antibiotic spacer on 2017. Plan: 1. Weightbearing as tolerated to the left lower extremity. 2. Continue pain control. 3. Continue IV antibiotics per infectious disease. Patient has an elevated white blood cell count, ESR and CRP. Patient is afebrile. 4. Appreciate input from infectious disease and internal medicine. 5. No surgical intervention planned at this time. Will continue to follow the patient closely. Further suggestions pending patient progress.
[2018-07-20] MEDS ORDERED: KETOROLAC 30 MG/ML 1 ML VIAL IVP SCH (12:00)
[2018-07-20] MEDS: THIAMINE 100 MG TAB PO SCH ×2 (12:20→17:07)
[2018-07-20] MEDS: HYDROcodone/APAP 7.5-325MG 1 EACH TAB PO PRN ×2 (12:28→18:20)
[2018-07-20] MEDS: SODIUM CHLORIDE 0.9% 1,000 ML IV SCH (14:10)
[2018-07-20 15:03] VITALS: BMI 24.3
--- NOTE | 2018-07-20 20:39 | P.CON ---
Consult Note - . Consult date: 07/20/18 Assessment/Plan:: 58-year-old male who has a history of degenerative joint disease status post left total knee arthroplasty in 2014. Between that time in February 2018 he had ongoing significant medical difficulties related to his alcoholism and tobacco use and eventually the left knee failed and had evidence of infection. The patient consequently required hospitalization for removal of the total knee arthroplasty and placement of an antibiotic spacer. This hospitalization was very complicated in that he developed alcohol withdrawal and required stay in intensive care unit where he was treated for his delirium tremens as well as a sepsis from his infected left total knee arthroplasty. He was treated for many days and eventually was transferred to the [facility] in [place] for his antibiotic therapy and rehab. In April 2018 he underwent removal of the initial antibiotic spacer which was replaced with a new antibiotic spacer due to persistent infection. Patient was discharged on daptomycin for approximately 7 weeks and on last Wednesday he was checked in the office and was taken off antibiotics. He states he was fine for 2 days and then developed chills and pain with worsening pain to the left knee to the point that he was nonambulatory. He states his appetite has been okay. He denies any new injury, twisting, repetitive motion to the knee. He came into [facility] emergency center for evaluation. X-rays of the left tib-fib and knee showed no focal bone destruction to suggest osteomyelitis. Check stat x-ray shows no heart failure. Mild pulmonary fibrosis. [facility] and continued on daptomycin. Consult in place for Dr. Traylor. Plan was for left knee aspiration this Wednesday and joint replacement on August 02. Please see the consult note as dictated by nurse practitioner Mrs. Morena Shine. This 50-year-old male is known to the service regarding the ongoing difficulties with infection regarding his left total knee arthroplasty. He is never treated with 2 courses of antibiotic therapy. Recently completed his second course and has had the rapid increase of pain and swelling to the left knee. There likely is failure of ongoing antibiotic therapy. The case is discussed with the orthopedic team. An aspiration will be performed try to reduce the amount of pain he has from the effusion to the knee. We'll also give further microbiological data. The patient is a great risk for limb loss to today refractory infection of the left knee. Patient likely will be transferred to a tertiary care center for further intervention into this complex process. Patient is aware that we would be happy to assume his antibiotic care with you returns to our community. I with evaluation, assessment and plan is dictated by nurse practitioner Mrs Morena Shine.
[2018-07-20] MEDS ORDERED: QUEtiapine 100 MG TAB PO SCH (21:00)
[2018-07-20] MEDS: ENOXAPARIN 80 MG/0.8 ML SYRINGE SQ SCH (22:06)
[2018-07-21] MEDS: SODIUM CHLORIDE 0.9% 1,000 ML IV SCH ×2 (00:13→09:35)
[2018-07-21] MEDS ORDERED: SODIUM CHLORIDE 0.9% 500 ML 500 ML IV ONE ×3 (00:34→10:22)
[2018-07-21 00:50] VITALS: RESP 18
--- NOTE | 2018-07-21 01:35 | XR ---
EXAM: XR Left Shoulder Complete, 2 or More Views XR Right Shoulder Complete, 2 or More Views CLINICAL HISTORY: increased bilateral shoulder pain. bony prominence TECHNIQUE: Two or more views of the bilateral shoulders. COMPARISON: Right shoulder 01/19/2017 FINDINGS: Bones/joints: The appearance of the right acromioclavicular joint is similar to previous examination with superior positioning of the distal clavicle in relation to the acromion. Hypertrophic degenerative changes are noted with heterotopic calcifications. Less prominent degenerative changes are noted involving a left acromioclavicular joint with less dramatic superior positioning of the distal clavicle. The humeral heads remain in the glenoid fossa bilaterally. No acute osseous traumatic injury. No dislocation. Soft tissues: Unremarkable. Tubes, lines and devices: A right arm PICC is incidentally noted. IMPRESSION: 1. Degenerative changes of the right acromioclavicular joint with superior positioning of the distal right clavicle in relation to the acromion is similar to examination dated January 19, 2017. Underlying degenerative changes are similar. 2. Less dramatic degenerative changes are noted involving the left acromioclavicular joint without Significant superior displacement of the distal left clavicle. 3. No acute osseous traumatic injury of the shoulders or displacement of the glenohumeral joints.
[2018-07-21] MEDS: HYDROcodone/APAP 7.5-325MG 1 EACH TAB PO PRN ×2 (01:47→07:03)
[2018-07-21 05:11] LABS: Anisocytosis Slight; Basophils # (A) 0.1 k/uL (0-0.2); Basophils % (A) 1 %; Eosinophils # (A) 0.4 k/uL (0-0.7); Eosinophils % (A) 4 %; HCT 30.2 % (39.0-53.0); HGB 9.2 gm/dL (13.0-17.5); Hypochromasia Marked; Lymphocytes # (A) 2.1 k/uL (1.0-4.8); Lymphocytes % (A) 18 %; MCH 29.9 pg (25.0-35.0); MCHC 30.5 g/dL (31.0-37.0); MCV 97.8 fL (80.0-100.0); Macrocytosis Slight; Mean Platelet Volume 6.3; Monocytes # (A) 1.1 k/uL (0-1.0); Monocytes % (A) 9 %; Neutrophils # (A) 8.1 k/uL (1.3-7.7); Neutrophils % (A) 66 %; Platelet Count 459 k/uL (150-450); RBC 3.08 m/uL (4.30-5.90); RDW 16.3 % (11.5-15.5); WBC 12.1 k/uL (3.8-10.6)
[2018-07-21 05:25] LABS: ALT 21 U/L (21-72); AST 13 U/L (17-59); Albumin 2.2 g/dL (3.5-5.0); Alkaline Phosphatase 83 U/L (38-126); Anion Gap 7 mmol/L; Blood Urea Nitrogen 8 mg/dL (9-20); Calcium 7.9 mg/dL (8.4-10.2); Carbon Dioxide 20 mmol/L (22-30); Chloride 110 mmol/L (98-107); Glucose 106 mg/dL (74-99); Potassium 3.7 mmol/L (3.5-5.1); Sodium 137 mmol/L (137-145); Total Bilirubin 0.5 mg/dL (0.2-1.3); Total Protein 4.8 g/dL (6.3-8.2)
[2018-07-21] MEDS ORDERED: LIDOCAINE 2% INJ 20 MG/ML (20 ML MDV) SQ STA (07:26)
[2018-07-21] MEDS: THIAMINE 100 MG TAB PO SCH (08:59)
[2018-07-21] MEDS: ENOXAPARIN 80 MG/0.8 ML SYRINGE SQ SCH (08:59)
[2018-07-21] MEDS ORDERED: PANTOPRAZOLE 40 MG TABLET PO SCH (09:00)
[2018-07-21] MEDS ORDERED: MAGNESIUM OXIDE 400 MG TAB PO SCH (09:00)
[2018-07-21] MEDS: MORPHINE SULFATE 4 MG/ML SYRINGE IV PRN ×2 (09:08→14:08)
--- NOTE | 2018-07-21 09:32 | P.PN ---
Subjective Progress Note Date: 07/21/18 This is a 58 year-old male who is admitted for persistent left knee infection. Patient states that his knee continues to be painful, but he denies any new complaints. Patient denies any fever/chills, numbness, weakness, tingling, abdominal pain, shortness of breath or chest pain. Objective - Vital Signs Vital signs: Vital Signs Temp 97.5 F L 07/21/18 07:00 Pulse 109 H 07/21/18 07:00 Resp 18 07/21/18 07:41 BP 105/71 07/21/18 07:00 Pulse Ox 96 07/21/18 07:00 Intake & Output 07/20/18 07/21/18 07/21/18 18:59 06:59 18:59 Intake Total 640 1140 360 Output Total 1200 Balance 640 -60 360 Weight 72.575 kg Intake: Intake, IV Titration 640 1140 Amount Sodium Chloride 0.9% 1, 640 640 000 ml @ 80 mls/hr IV . [id number] [facility] Rx#:[id number] Sodium Chloride 0.9% 500 500 ml 500 ml @ 999 mls/hr IV .Q31M [facility] Rx#:[id number] Oral 360 Output: Urine 1200 Other: Voiding Method Urinal # Voids 3 - Exam On exam there is moderate swelling of the left knee. There is no erythema. Patient has limited range of motion due to pain. Calf is soft and nontender to palpation. Patient has full foot and ankle motion without pain or difficulty. Sensation is intact. Neurovascular status and circulatory status are intact. - Labs CBC & Chem 7: 07/21/18 04:46 07/21/18 04:46 Labs: Abnormal Lab Results - Last 24 Hours (Table) 07/20/18 07/21/18 07/21/18 Range/Units 08:04 04:46 04:46 WBC 12.1 H (3.8-10.6) k/uL RBC 3.08 L (4.30-5.90) m/uL Hgb 9.2 L (13.0-17.5) gm/dL Hct 30.2 L (39.0-53.0) % MCHC 30.5 L (31.0-37.0) g/dL RDW 16.3 H (11.5-15.5) % Plt Count 459 H (150-450) k/uL Neutrophils # 8.1 H (1.3-7.7) k/uL Monocytes # 1.1 H (0-1.0) k/uL Chloride 109 H 110 H (98-107) mmol/L Carbon Dioxide 20 L (22-30) mmol/L BUN 8 L 8 L (9-20) mg/dL Glucose 106 H (74-99) mg/dL Calcium 7.9 L (8.4-10.2) mg/dL AST 13 L (17-59) U/L Total Protein 4.8 L (6.3-8.2) g/dL Albumin 2.2 L (3.5-5.0) g/dL Microbiology - Last 24 Hours (Table) 07/19/18 18:40 Blood Culture - Preliminary Blood No Growth after 24 hours Assessment and Plan Assessment: Persistent infection of left knee. Status post stage 1 revision with placement of new antibiotic spacer on 2017. Plan: 1. Weightbearing as tolerated to the left lower extremity. 2. Continue pain control. 3. Continue IV antibiotics per infectious disease. 4. Appreciate input from infectious disease and internal medicine. 5. Left knee aspiration is performed at bedside today. The knee is prepped with chlorhexidine. 3ml of 2% Xylocaine is used for local anesthestic. An 18 gauge needle is used for aspiration using sterile technique and <1ml of blood is obtained. Patient tolerated the procedure well. 6. Recommend transfer to a larger facility for further management. Patient may need a more extensive surgery due to continued infection of the left knee.
--- NOTE | 2018-07-21 12:07 | P.DS ---
Providers Date of admission: 07/21/18 07:58 Expected date of discharge: 07/21/18 Attending physician: Benita Holland Consults: 07/19/18 21:38 Consult Physician Routine Consulting Provider: Tejas Ren Consult Reason/Comments: chronic post op infection - established patient Do you want consulting provider notified?: Yes, Notify in am 07/19/18 21:56 Consult Physician Stat Consulting Provider: Bassem Traylor Consult Reason/Comments: Joint infection L knee s/p tka and hardware removal Do you want consulting provider notified?: Yes Primary care physician: Claudette [facility] Hospital Course: Discharge diagnosis 1. 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 Left knee x-ray completed showing no change compared to last exam. No focal bone destruction seen to suggest osteomyelitis. X-ray tibia and fibula completed showing revision of the knee status removal of metal hardware. No evidence of osteo myelitis. Venous Doppler showing no sonographic evidence for DVT in the lower extremities. Patient has been followed by Dr. Ren. Patient currently started on daptomycin for IV antibiotics. Blood culture has been ordered. Infectious disease is following. Dr. Traylor for Orthopedic surgery has been consulted. Discussed case with infectious disease and orthopedic services. Recommending transfer to tertiary hospital for further evaluation due to patient 's chronic left knee infection. 2. History of PE and DVT status post Juan M filter in February 2018 due to GI bleeding. Patient's home Xarelto dose currently on hold until surgical services evaluate. Patient started on Lovenox 1 mg/kg twice a day 3. History of GI bleed due to linear erosions or ulcerations in the mid distal esophagus consistent with reflux esophagitis 4. History of alcohol abuse. Patient started on alcohol withdrawal protocol 5. History of COPD no exacerbation at this time Hospital course This is a 58-year-old male patient of Dr. Edward. Patient presented to the hospital with complaints of increased left knee pain and swelling for the past 2 days. Patient has been treated for joint infection of the left knee status post total left knee replacement. Patient has been getting treated for infection for the past [address] Ren. Patient is scheduled for joint aspiration of the left knee Dr. traylor this Wednesday. Patient reports that he was unable to bear any weight on the knee. Patient has a additional medical history of alcohol abuse, pulmonary embolism in which he is on Zaroxolyn , non-STEMI, osteoarthritis, seizure disorder, COPD, syncope, anxiety and depression. Chest x-ray completed ER showing inspiration improved compared to last exam no heart failure mild pulmonary fibrosis. Knee x-ray completed showing no change compared to last exam no focal bone destruction seen to suggest osteomyelitis. Tibia-fibula x-ray completed showing revision of the knee prosthetic with removal of the metal hardware no evidence of osteomyelitis. Venous Doppler ultrasound completed showing no sonographic evidence for DVT in lower extremity. EKG completed showing normal sinus rhythm low voltage QRS. Patient has been started on daptomycin for IV antibiotics. Dr. Ren has been consulted. Blood culture has been ordered. Dr. pagan also consulted for orthopedic surgery. Patient also started on alcohol withdrawal protocol. Patient does report his last drink was a couple days ago. At this time patient denies any chest pain or shortness breath. Patient denies nausea vomiting or diarrhea. Patient denies any urinary burning or frequency. Patient is complaining of left knee pain. At this time will hold patient's Xarleto and start patient on Lovenox 1 mg/kg twice a day until evaluated by surgical services. On 07/21/2018 discussed case with orthopedic and infectious disease recommending transfer due to patient's chronic infection. Patient to be transferred to [facility]. Patient's heart rate elevated at 109. Patient was given 500 mL bolus 2. Patient also presented cardiac telemetry monitoring. Blood pressure low throughout the night improved with boluses. Current blood pressure 105/71. This time patient denies chest pain or shortness of breath. Patient denies nausea vomiting or diarrhea. Patient denies any urinary burning or frequency. Patient is still complaining of some left knee pain. I performed an examination of the patient and discussed their management with the Nurse Practitioner. I have reviewed the Nurse Practitioner's notes and agree with the documented findings and plan of care Patient Condition at Discharge: Stable Plan - Discharge Summary Discharge Rx Participant: No New Discharge Prescriptions: No Action HYDROcodone/APAP 7.5-325MG [[place] 7.5-325] 1 tab PO Q6H PRN PRN Reason: Pain Pantoprazole [Protonix] 40 mg PO DAILY Rivaroxaban [Xarelto] 20 mg PO DAILY QUEtiapine [SEROquel] 100 mg PO HS Magnesium Oxide [Mag-Ox] 400 mg PO DAILY ALPRAZolam [Xanax] 0.5 mg PO TID PRN PRN Reason: Anxiety Discharge Medication List HYDROcodone/APAP 7.5-325MG [[place] 7.5-325] 1 tab PO Q6H PRN 05/06/18 [History] Pantoprazole [Protonix] 40 mg PO DAILY 05/06/18 [History] Rivaroxaban [Xarelto] 20 mg PO DAILY 05/06/18 [History] QUEtiapine [SEROquel] 100 mg PO HS 05/16/18 [History] ALPRAZolam [Xanax] 0.5 mg PO TID PRN 07/19/18 [History] Magnesium Oxide [Mag-Ox] 400 mg PO DAILY 07/19/18 [History] Follow up Appointment(s)/Referral(s): Claudette Edward DO [Primary Care Provider] - 1-2 days Activity/Diet/Wound Care/Special Instructions: Patient to be transferred to [facility] per orthopedic and infectious disease recommendation Discharge Disposition: OTHER INSTITUTION NOT DEFINED
[2018-07-21 13:12] VITALS: BP 110/73; PULSE 103
[2018-07-21 14:04] VITALS: TEMP 98.3
== END 2018-07-21 15:00 | disposition short-term general hospital (02) | DRG 549 ==
LOC: EC 17:44 → 4SSUR 21:37 → OBSVTOIN 07-21 07:58
PROVIDERS: ADMIT Internal Medicine; ATTEND Internal Medicine
DX: M00.9 Pyogenic arthritis, unspecified (principal); F10.239 Alcohol dependence with withdrawal, unspecified; J96.11 Chronic respiratory failure with hypoxia; T84.093S Other mechanical complication of internal left knee prosthesis, sequela; F17.210 Nicotine dependence, cigarettes, uncomplicated; F32.9 Major depressive disorder, single episode, unspecified; F41.9 Anxiety disorder, unspecified; G40.909 Epilepsy, unspecified, not intractable, without status epilepticus; I25.2 Old myocardial infarction; J44.9 Chronic obstructive pulmonary disease, unspecified; J84.10 Pulmonary fibrosis, unspecified; K21.9 Gastro-esophageal reflux disease without esophagitis; Z79.01 Long term (current) use of anticoagulants; Z79.899 Other long term (current) drug therapy; Z80.3 Family history of malignant neoplasm of breast; Z82.49 Family history of ischemic heart disease and other diseases of the circulatory system; Z86.711 Personal history of pulmonary embolism; Z86.718 Personal history of other venous thrombosis and embolism; M19.90 Unspecified osteoarthritis, unspecified site; Z88.5 Allergy status to narcotic agent; Z95.828 Presence of other vascular implants and grafts; Z87.11 Personal history of peptic ulcer disease; Z86.010 Personal history of colon polyps; Z86.14 Personal history of Methicillin resistant Staphylococcus aureus infection
CPT/HCPCS: 36415; 71046; 80048; 80053; 81003; 83605; 84484; 85025; 85610; 85652; 85730; 86140; 87040; 93005; 93970; 96361; 96365; 96372; 96375; 99285

== ENCOUNTER → 2018-08-13 | Outpatient (CLI) | payer MEDICARE, OTHER ==
[2018-08-13 12:12] LABS: Anisocytosis Slight; Basophils % (A) 1 %; Eosinophils # (A) 0.4 k/uL (0-0.7); Eosinophils % (A) 5 %; HCT 36.2 % (39.0-53.0); HGB 10.9 gm/dL (13.0-17.5); Hypochromasia Marked; Lymphocytes # (A) 1.7 k/uL (1.0-4.8); Lymphocytes % (A) 20 %; MCHC 30.1 g/dL (31.0-37.0); MCV 96.4 fL (80.0-100.0); Macrocytosis Slight; Mean Platelet Volume 6.2; Monocytes # (A) 0.6 k/uL (0-1.0); Monocytes % (A) 7 %; Neutrophils # (A) 5.3 k/uL (1.3-7.7); Neutrophils % (A) 65 %; Platelet Count 375 k/uL (150-450); RBC 3.75 m/uL (4.30-5.90); RDW 17.3 % (11.5-15.5); WBC 8.2 k/uL (3.8-10.6)
[2018-08-13 14:10] LABS: Erythrocyte Sedimentation Rate 28 mm/hr (0-15)
[2018-08-13 16:59] LABS: Albumin 3.3 g/dL (3.80-4.90); Albumin/Globulin Ratio 1.18 (1.60-3.17); Anion Gap 11.3 mmol/L (4.00-12.00); C Reactive Protein 2.4 mg/dL (0.0-0.8); Calcium 8.9 mg/dL (8.7-10.3); Carbon Dioxide 21.7 mmol/L (21.6-31.8); Globulin 2.8 g/dL (1.6-3.3); Total Bilirubin 0.3 mg/dL (0.3-1.2); Total Protein 6.1 g/dL (6.2-8.2)
== END ==
LOC: LABWHC1 10:29
PROVIDERS: ATTEND Internal Medicine Infectious Disease
DX: T84.54XA Infection and inflammatory reaction due to internal left knee prosthesis, initial encounter (principal)
CPT/HCPCS: 36415; 80053; 85025; 85652; 86140

== ENCOUNTER → 2018-10-12 | Outpatient (CLI) | payer MEDICARE, OTHER ==
[2018-10-12 16:24] LABS: Anisocytosis Slight; Basophils # (A) 0.1 k/uL (0-0.2); Basophils % (A) 1 %; Eosinophils # (A) 0.2 k/uL (0-0.7); Eosinophils % (A) 2 %; HCT 28.1 % (39.0-53.0); HGB 8.2 gm/dL (13.0-17.5); Hypochromasia Marked; Lymphocytes # (A) 1.9 k/uL (1.0-4.8); Lymphocytes % (A) 17 %; MCH 26.5 pg (25.0-35.0); MCHC 29.2 g/dL (31.0-37.0); Mean Platelet Volume 7.4; Monocytes # (A) 0.9 k/uL (0-1.0); Monocytes % (A) 9 %; Neutrophils # (A) 7.7 k/uL (1.3-7.7); Neutrophils % (A) 70 %; Platelet Count 381 k/uL (150-450); Poikilocytosis Slight; RBC 3.09 m/uL (4.30-5.90); RDW 17.2 % (11.5-15.5)
[2018-10-12 17:18] LABS: Erythrocyte Sedimentation Rate 50 mm/hr (0-15)
[2018-10-12 18:25] LABS: Appearance,BF Bloody; Color,BF Red; Nucleated Cells, Body Fluid 3500 /uL; RBC, Body Fluid 312000 /uL
[2018-10-12 18:27] LABS: Mononuclear WBC,Body Fluid 18 %; Polynuclear WBC,Body Fluid 82 %; Total Cells Counted,Body Fluid 100
== END ==
LOC: LABWHC1 14:14
PROVIDERS: ATTEND Orthopaedic Surgery
DX: Z48.89 Encounter for other specified surgical aftercare (principal); M25.462 Effusion, left knee; F10.229 Alcohol dependence with intoxication, unspecified; A41.2 Sepsis due to unspecified staphylococcus; A41.02 Sepsis due to Methicillin resistant Staphylococcus aureus; I82.402 Acute embolism and thrombosis of unspecified deep veins of left lower extremity; F17.200 Nicotine dependence, unspecified, uncomplicated; Z96.652 Presence of left artificial knee joint
CPT/HCPCS: 36415; 85025; 85652; 86140; 87070; 87075; 87205; 89050; 89060

== ENCOUNTER 2018-11-23 19:58 | Observation (INO) | payer MEDICARE, OTHER ==
[2018-11-23] MEDS ORDERED: MORPHINE SULFATE 4 MG/ML SYRINGE IVP STA (21:00)
[2018-11-23 22:39] LABS: Anisocytosis Slight; Basophils # (A) 0.1 k/uL (0-0.2); Basophils % (A) 1 %; Eosinophils # (A) 0.2 k/uL (0-0.7); Eosinophils % (A) 2 %; HCT 26.4 % (39.0-53.0); HGB 7.2 gm/dL (13.0-17.5); Hypochromasia Marked; Lymphocytes # (A) 1.6 k/uL (1.0-4.8); Lymphocytes % (A) 15 %; MCH 23.2 pg (25.0-35.0); MCHC 27.2 g/dL (31.0-37.0); Mean Platelet Volume 7.5; Monocytes # (A) 0.8 k/uL (0-1.0); Monocytes % (A) 8 %; Neutrophils # (A) 7.5 k/uL (1.3-7.7); Neutrophils % (A) 72 %; Platelet Count 540 k/uL (150-450); Poikilocytosis Moderate; RBC 3.09 m/uL (4.30-5.90); RDW 17.8 % (11.5-15.5); WBC 10.5 k/uL (3.8-10.6)
[2018-11-23 22:55] LABS: ALT 13 U/L (21-72); AST 10 U/L (17-59); African American GFR (CKD) >90 (>60 ml/min/1.73 sqM); Albumin 2.7 g/dL (3.5-5.0); Alkaline Phosphatase 95 U/L (38-126); Anion Gap 8 mmol/L; Blood Urea Nitrogen 16 mg/dL (9-20); Calcium 8.1 mg/dL (8.4-10.2); Carbon Dioxide 23 mmol/L (22-30); Chloride 110 mmol/L (98-107); Glucose 77 mg/dL (74-99); Non-African American GFR(CKD) >90 (>60 ml/min/1.73 sqM); Potassium 4.1 mmol/L (3.5-5.1); Sodium 141 mmol/L (137-145); Total Bilirubin 0.5 mg/dL (0.2-1.3); Total Protein 5.7 g/dL (6.3-8.2)
[2018-11-23 22:58] LABS: MCV 85.4 fL (80.0-100.0)
--- NOTE | 2018-11-23 23:07 | US ---
EXAM: US Duplex Left Lower Extremity Veins CLINICAL HISTORY: ITS.REASON US Reason: Pain TECHNIQUE: Real-time duplex ultrasound scan of the left lower extremity veins integrating B-mode two-dimensional vascular structure, Doppler spectral analysis, color flow Doppler imaging and compression. COMPARISON: None available FINDINGS: Technically limited due to severe edema. No evidence of common femoral - popliteal deep venous thrombosis. Limited visualization of calf veins. No evidence of venous thrombosis involving imaged greater saphenous vein. Left groin hypoechoic density measuring 2.5 x 1.4 x 1.1 cm suggesting mildly enlarged inguinal lymph node. IMPRESSION: No evidence of common femoral - popliteal deep venous thrombosis. Mildly enlarged left inguinal lymph node.
--- NOTE | 2018-11-23 23:47 | ED ---
Extremity Problem HPI - General Chief complaint: Extremity Problem,Nontraumatic Stated complaint: L leg pain Time Seen by Provider: 11/23/18 20:31 Source: patient, EMS Mode of arrival: EMS Limitations: no limitations - History of Present Illness Initial comments: 50-year-old male presenting today for chief complaint of left leg pain x 16 months. Patient states he has had leg pain for the past 16 months. He states initially began with a postoperative infection after a total knee arthroplasty performed by Dr. Bassem Spear. He states that the hardware had to be removed and there has beenan antibiotics spacer placed. He states he ambulates via wheel chair. Patient states he is mostly bedbound/wheelchair bound. Patient does admit to history of pulmonary embolism and is on xarelto he states he is compliant. Patient denies any chest pain or shortness of breath. Patient states he has been colder than usual for the past week. Patient states that he was no longer able to tolerate the pain he states has been ongoing to Present emergency department this evening for pain management. Patient states he does have swelling on and off of the lower extremities bilaterally. He states this is been persistent since his surgery. Patient denies any specific increased within the last 2 weeks. Patient denies any unusual characteristic of the pain he states is just been persistent for the past 16 months. Patient states the [place] 7.5 mg to not seem to be helping. Patient denies any fevers, or flulike symptoms. Remaining review of systems negative upon arrival patient's vital signs within acceptable limits. - Related Data Home Medications Medication Instructions Recorded Confirmed HYDROcodone/APAP 7.5-325MG [[place] 1 tab PO Q6H PRN 05/06/18 11/23/18 7.5-325] Pantoprazole [Protonix] 40 mg PO DAILY 05/06/18 11/23/18 Rivaroxaban [Xarelto] 20 mg PO DAILY 05/06/18 11/23/18 ALPRAZolam [Xanax] 0.5 mg PO TID PRN 07/19/18 11/23/18 Magnesium Oxide [Mag-Ox] 400 mg PO DAILY 07/19/18 11/23/18 Thiamine HCl [Vitamin B-1] 100 mg PO DAILY 11/23/18 11/23/18 Allergies Allergy/AdvReac Type Severity Reaction Status Date / Time tramadol AdvReac Mild Itching Verified 11/23/18 20:25 Review of Systems ROS Statement: Those systems with pertinent positive or pertinent negative responses have been documented in the HPI. ROS Other: All systems not noted in ROS Statement are negative. Past Medical History Past Medical History: Deep Vein Thrombosis (DVT), GERD/Reflux, Osteoarthritis (OA), Pulmonary Embolus (PE), Seizure Disorder, Syncope Additional Past Medical History / Comment(s): Alcoholism, recent hospitalization for bilateral pulmonary embolism with clot occluding the left pulmonary artery and evidence of right ventricular strain pattern maintained on anticoagulation, COPD, chronic hypoxic respiratory failure, FEV1 of 51% of predicted with chronic hypoxic respiratory failure, chronic smoker carries more than on the PACU smo kerrie history, alcoholism, history of delirium tremens, history of recurrent falls, history of rib fractures related to falls, GERD, diverticulosis, seizure disorder, osteoarthritis, history of small bowel obstruction secondary to incarcerated right inguinal hernia, History of Any Multi-Drug Resistant Organisms: MRSA Date of last positivie culture/infection: 05/13/18 MDRO Source:: KNEE Past Surgical History: Orthopedic Surgery Additional Past Surgical History / Comment(s): Colonoscopies and polypectomies, 10/21/15 normal cardiac cath, multiple inguinal hernia surg., bilateral knee arthroscopies and pt states bilateral knee arthroplasties."had blood clots removed from lungs at [facility], i'not sure what they did" Past Anesthesia/Blood Transfusion Reactions: No Reported Reaction Past Psychological History: Anxiety, Depression Smoking Status: Current every day smoker Past Alcohol Use History: Occasional Past Drug Use History: None Reported - Past Family History Father Family Medical History: Coronary Artery Disease (CAD), Myocardial Infarction (MD) Additional Family Medical History / Comment(s): Father of a MD at the age of 73 yrs. Mother Family Medical History: Cancer Additional Family Medical History / Comment(s): BREAST CA General Exam - General Exam Comments Initial Comments: General: The patient is awake and alert, in no distress Eye: +3 mm pupils are equal, round and reactive to light, extra-ocular movements are intact. No nystagmus. There is normal conjunctiva bilaterally. No signs of icterus. Ears, nose, mouth and throat: There are pale, moist mucous membranes and no oral lesions. Neck: The neck is supple, there is no tenderness or JVD. Cardiovascular: There is a regular rate and rhythm. No murmur, rub or gallop is appreciated. Respiratory: Lungs are clear to auscultation, respirations are non-labored, breath sounds are equal. No wheezes, stridor, rales, or rhonchi. Gastrointestinal: Soft, non-distended, non-tender abdomen without masses or organomegaly noted. There is no rebound or guarding present. No CVA tenderness. Bowel sounds are unremarkable. Musculoskeletal: Normal ROM, no tenderness. Strength 5/5. Sensation intact. Neurological: A&O x 3. CN II-XII intact, There are no obvious motor or sensory deficits. Coordination appears grossly intact. Speech is normal. Skin: Skin is warm and dry and no rashes or lesions are noted. B/l LE edema, No erythema of the knee b/l. Soft tissue swelling of knees b/l. Pain with movement of left knee. +2 DP pulses. Psychiatric: Cooperative, appropriate mood & affect, normal judgment. Limitations: no limitations Course Vital Signs 11/23/18 11/23/18 11/23/18 20:02 20:30 21:00 Temperature 98.7 F Pulse Rate 81 77 80 Pulse Rate [ Pulse Oximetery ] Respiratory 19 18 18 Rate Blood Pressure 104/73 104/73 106/84 Blood Pressure [Left Arm] O2 Sat by Pulse 97 98 94 L Oximetry 11/23/18 11/23/18 11/23/18 21:30 22:00 22:30 Temperature Pulse Rate 79 78 80 Pulse Rate [ Pulse Oximetery ] Respiratory 19 20 19 Rate Blood Pressure 110/77 104/71 108/70 Blood Pressure [Left Arm] O2 Sat by Pulse 96 97 90 L Oximetry 11/23/18 11/24/18 11/24/18 23:17 01:30 02:30 Temperature Pulse Rate 78 85 94 Pulse Rate [ Pulse Oximetery ] Respiratory 19 18 21 Rate Blood Pressure 107/73 116/71 112/72 Blood Pressure [Left Arm] O2 Sat by Pulse 99 95 97 Oximetry 11/24/18 11/24/18 03:30 04:00 Temperature 97.8 F Pulse Rate 97 Pulse Rate [ 64 Pulse Oximetery ] Respiratory 20 19 Rate Blood Pressure 105/50 Blood Pressure 102/70 [Left Arm] O2 Sat by Pulse 89 L 96 Oximetry - Reevaluation(s) Reevaluation #1: Signed patient out to Dr. León, added labs (PT/PTT/INR, type screen, occult blood, EKG, CTA pending) he will interpret results and performed further care management/ultimate disposition. 11/23/18 23:55 Medical Decision Making - Lab Data Result diagrams: 11/25/18 12:29 11/25/18 12:29 Lab Results 11/23/18 11/23/18 11/23/18 Range/Units 21:35 21:35 21:35 WBC 10.5 (3.8-10.6) k/uL RBC 3.09 L (4.30-5.90) m/uL Hgb 7.2 L (13.0-17.5) gm/dL Hct 26.4 L (39.0-53.0) % MCV 85.4 D (80.0-100.0) fL MCH 23.2 L (25.0-35.0) pg MCHC 27.2 L (31.0-37.0) g/dL RDW 17.8 H (11.5-15.5) % Plt Count 540 H (150-450) k/uL Neutrophils % 72 % Lymphocytes % 15 % Monocytes % 8 % Eosinophils % 2 % Basophils % 1 % Neutrophils # 7.5 (1.3-7.7) k/uL Lymphocytes # 1.6 (1.0-4.8) k/uL Monocytes # 0.8 (0-1.0) k/uL Eosinophils # 0.2 (0-0.7) k/uL Basophils # 0.1 (0-0.2) k/uL Hypochromasia Marked Poikilocytosis Moderate Anisocytosis Slight PT (9.0-12.0) sec INR (<1.2) APTT (22.0-30.0) sec D-Dimer (<0.60) mg/L FEU Sodium 141 (137-145) mmol/L Potassium 4.1 (3.5-5.1) mmol/L Chloride 110 H (98-107) mmol/L Carbon Dioxide 23 (22-30) mmol/L Anion Gap 8 mmol/L BUN 16 (9-20) mg/dL Creatinine 0.91 (0.66-1.25) mg/dL Est GFR (CKD-EPI)AfAm >90 (>60 ml/min/1.73 sqM) Est GFR (CKD-EPI)NonAf >90 (>60 ml/min/1.73 sqM) Glucose 77 (74-99) mg/dL Calcium 8.1 L (8.4-10.2) mg/dL Total Bilirubin 0.5 (0.2-1.3) mg/dL AST 10 L (17-59) U/L ALT 13 L (21-72) U/L Alkaline Phosphatase 95 (38-126) U/L NT-Pro-B Natriuret Pep pg/mL Total Protein 5.7 L (6.3-8.2) g/dL Albumin 2.7 L (3.5-5.0) g/dL Stool Occult Blood (Negative) Blood Type A Positive Blood Type Recheck No Antibody Screen NEGATIVE Spec Expiration Date 11/26/2018 - 233411/23/18 11/23/18 11/23/18 Range/Units 21:35 21:35 21:35 WBC (3.8-10.6) k/uL RBC (4.30-5.90) m/uL Hgb (13.0-17.5) gm/dL Hct (39.0-53.0) % MCV (80.0-100.0) fL MCH (25.0-35.0) pg MCHC (31.0-37.0) g/dL RDW (11.5-15.5) % Plt Count (150-450) k/uL Neutrophils % % Lymphocytes % % Monocytes % % Eosinophils % % Basophils % % Neutrophils # (1.3-7.7) k/uL Lymphocytes # (1.0-4.8) k/uL Monocytes # (0-1.0) k/uL Eosinophils # (0-0.7) k/uL Basophils # (0-0.2) k/uL Hypochromasia Poikilocytosis Anisocytosis PT 11.9 (9.0-12.0) sec INR 1.1 (<1.2) APTT 26.4 (22.0-30.0) sec D-Dimer 1.54 H (<0.60) mg/L FEU Sodium (137-145) mmol/L Potassium (3.5-5.1) mmol/L Chloride (98-107) mmol/L Carbon Dioxide (22-30) mmol/L Anion Gap mmol/L BUN (9-20) mg/dL Creatinine (0.66-1.25) mg/dL Est GFR (CKD-EPI)AfAm (>60 ml/min/1.73 sqM) Est GFR (CKD-EPI)NonAf (>60 ml/min/1.73 sqM) Glucose (74-99) mg/dL Calcium (8.4-10.2) mg/dL Total Bilirubin (0.2-1.3) mg/dL AST (17-59) U/L ALT (21-72) U/L Alkaline Phosphatase (38-126) U/L NT-Pro-B Natriuret Pep 7500 pg/mL Total Protein (6.3-8.2) g/dL Albumin (3.5-5.0) g/dL Stool Occult Blood (Negative) Blood Type Blood Type Recheck Antibody Screen Spec Expiration Date 11/23/18 Range/Units 23:25 WBC (3.8-10.6) k/uL RBC (4.30-5.90) m/uL Hgb (13.0-17.5) gm/dL Hct (39.0-53.0) % MCV (80.0-100.0) fL MCH (25.0-35.0) pg MCHC (31.0-37.0) g/dL RDW (11.5-15.5) % Plt Count (150-450) k/uL Neutrophils % % Lymphocytes % % Monocytes % % Eosinophils % % Basophils % % Neutrophils # (1.3-7.7) k/uL Lymphocytes # (1.0-4.8) k/uL Monocytes # (0-1.0) k/uL Eosinophils # (0-0.7) k/uL Basophils # (0-0.2) k/uL Hypochromasia Poikilocytosis Anisocytosis PT (9.0-12.0) sec INR (<1.2) APTT (22.0-30.0) sec D-Dimer (<0.60) mg/L FEU Sodium (137-145) mmol/L Potassium (3.5-5.1) mmol/L Chloride (98-107) mmol/L Carbon Dioxide (22-30) mmol/L Anion Gap mmol/L BUN (9-20) mg/dL Creatinine (0.66-1.25) mg/dL Est GFR (CKD-EPI)AfAm (>60 ml/min/1.73 sqM) Est GFR (CKD-EPI)NonAf (>60 ml/min/1.73 sqM) Glucose (74-99) mg/dL Calcium (8.4-10.2) mg/dL Total Bilirubin (0.2-1.3) mg/dL AST (17-59) U/L ALT (21-72) U/L Alkaline Phosphatase (38-126) U/L NT-Pro-B Natriuret Pep pg/mL Total Protein (6.3-8.2) g/dL Albumin (3.5-5.0) g/dL Stool Occult Blood Positive (Negative) Blood Type Blood Type Recheck Antibody Screen Spec Expiration Date Disposition Clinical Impression: Left leg pain, Anemia Disposition: ADMITTED IP TO THIS [facility] Condition: Stable Is patient prescribed a controlled substance at d/c from ED?: No Time of Disposition: 14:11 (Patient was admitted by Dr. León-- unsure of time of final disposition) Decision to Admit Reason: Admit from EC
[2018-11-24 00:21] LABS: INR 1.1 (<1.2); Partial Thromboplastin Time 26.4 sec (22.0-30.0); Prothrombin Time 11.9 sec (9.0-12.0)
[2018-11-24] MEDS ORDERED: ENOXAPARIN 80 MG/0.8 ML SYRINGE SQ STA (01:45)
[2018-11-24] MEDS: MORPHINE SULFATE 4 MG/ML SYRINGE IVP PRN ×5 (02:30→20:10)
[2018-11-24] MEDS ORDERED: NALOXONE 0.4 MG/ML 1 ML VIAL IV PRN (02:52)
[2018-11-24] MEDS ORDERED: ONDANSETRON 4 MG/2 ML VIAL IVP PRN (02:52)
[2018-11-24] MEDS ORDERED: MORPHINE SULFATE 4 MG/ML SYRINGE IV PRN (02:52)
[2018-11-24] MEDS ORDERED: ALPRAZolam 0.5 MG TAB PO PRN (02:55)
[2018-11-24 05:05] VITALS: BMI 23.8
[2018-11-24] MEDS: SODIUM CHLORIDE 0.9% 1,000 ML IV SCH (05:05)
[2018-11-24] MEDS ORDERED: HEPARIN SODIUM,PORCINE 5,000 UNIT/ML 1 ML VIAL SQ SCH (08:00)
[2018-11-24] MEDS: HYDROcodone/APAP 5-325MG 1 EACH TAB PO PRN ×3 (08:15→17:53)
--- NOTE | 2018-11-24 10:01 | P.CNOR ---
History of Present Illness - HPI Consult date: 11/24/18 History of present illness: This is a 58-year-old male who is admitted for left knee pain. 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 Patient underwent his second stage I revision with placement of a new antibiotic spacer on 05/13/2018 due to persistent infection. Patient's past medical history is significant for history of GI bleed, COPD, DVT, GERD, pulmonary embolism, seizure disorder, alcoholism and syncope. Patient is a well-known patient to [facility]. Patient states that he could not stand the pain in the left knee any longer so he came to the emergency room. Patient states that the [place] he has been taking is not strong enough. Patient states that he is scheduled to see Dr. Ren next week in preparation for his upcoming stage II revision left total knee arthroplasty. Patient currently takes Xarelto. Patient denies any fever/chills, numbness, weakness, tingling, abdominal pain, shortness of breath or chest pain. Review of Systems See HPI. Past Medical History Past Medical History: Deep Vein Thrombosis (DVT), GERD/Reflux, Osteoarthritis (OA), Pulmonary Embolus (PE), Seizure Disorder, Syncope Additional Past Medical History / Comment(s): Alcoholism, recent hospitalization for bilateral pulmonary embolism with clot occluding the left pulmonary artery and evidence of right ventricular strain pattern maintained on anticoagulation, COPD, chronic hypoxic respiratory failure, FEV1 of 51% of predicted with chronic hypoxic respiratory failure, chronic smoker carries more than on the PACU smoking history, alcoholism, history of delirium tremens, history of recurrent falls, history of rib fractures related to falls, GERD, diverticulosis, seizure disorder, osteoarthritis, history of small bowel obstruction secondary to incarcerated right inguinal hernia, History of Any Multi-Drug Resistant Organisms: MRSA Year Discovered:: 05/13/18 MDRO Source:: KNEE Past Surgical History: Orthopedic Surgery Additional Past Surgical History / Comment(s): Colonoscopies and polypectomies, 10/21/15 normal cardiac cath, multiple inguinal hernia surg., bilateral knee arthroscopies and pt states bilateral knee arthroplasties."had blood clots removed from lungs at [facility], i'not sure what they did" Past Anesthesia/Blood Transfusion Reactions: No Reported Reaction Past Psychological History: Anxiety, Depression Smoking Status: Current every day smoker Past Alcohol Use History: Occasional Past Drug Use History: None Reported - Past Family History Father Family Medical History: Coronary Artery Disease (CAD), Myocardial Infarction (IA) Additional Family Medical History / Comment(s): Father of a IA at the age of 73 yrs. Mother Family Medical History: Cancer Additional Family Medical History / Comment(s): BREAST CA Medications and Allergies Home Medications Medication Instructions Recorded Confirmed Type HYDROcodone/APAP 7.5-325MG [[place] 1 tab PO Q6H PRN 05/06/18 11/23/18 History 7.5-325] Pantoprazole [Protonix] 40 mg PO DAILY 05/06/18 11/23/18 History Rivaroxaban [Xarelto] 20 mg PO DAILY 05/06/18 11/23/18 History ALPRAZolam [Xanax] 0.5 mg PO TID PRN 07/19/18 11/23/18 History Magnesium Oxide [Mag-Ox] 400 mg PO DAILY 07/19/18 11/23/18 History Thiamine HCl [Vitamin B-1] 100 mg PO DAILY 11/23/18 11/23/18 History Allergies Allergy/AdvReac Type Severity Reaction Status Date / Time tramadol AdvReac Mild Itching Verified 11/23/18 20:25 Physical Examination On exam patient is lying comfortably in bed in no acute distress. The left knee is mildly swollen. Incision is well-healed with no erythema, drainage or warmth. There is mild swelling of bilateral lower extremities. Skin is intact. Sensation intact. Bilateral lower extremities are warm and well perfused. Patient has bilateral full foot and ankle motion without pain or difficulty. Neurovascular status and circulatory status are intact. Results A venous Doppler ultrasound is negative for DVT in the left lower extremity. - Labs Labs: Abnormal Lab Results - Last 24 Hours (Table) 11/23/18 11/23/18 11/23/18 Range/Units 21:35 21:35 21:35 RBC 3.09 L (4.30-5.90) m/uL Hgb 7.2 L (13.0-17.5) gm/dL Hct 26.4 L (39.0-53.0) % MCH 23.2 L (25.0-35.0) pg MCHC 27.2 L (31.0-37.0) g/dL RDW 17.8 H (11.5-15.5) % Plt Count 540 H (150-450) k/uL D-Dimer 1.54 H (<0.60) mg/L FEU Chloride 110 H (98-107) mmol/L Calcium 8.1 L (8.4-10.2) mg/dL AST 10 L (17-59) U/L ALT 13 L (21-72) U/L Total Protein 5.7 L (6.3-8.2) g/dL Albumin 2.7 L (3.5-5.0) g/dL H & H 11/23/18 Range/Units 21:35 Hgb 7.2 L (13.0-17.5) gm/dL Hct 26.4 L (39.0-53.0) % Coagulation 11/23/18 Range/Units 21:35 INR 1.1 (<1.2) Result Diagrams: 11/23/18 21:35 11/23/18 21:35 Assessment and Plan (1) 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 Current Visit: Yes Status: Acute Code(s): Z86.19 - PERSONAL HISTORY OF OTHER INFECTIOUS AND PARASITIC DISEASES; Z98.890 - OTHER SPECIFIED POSTPROCEDURAL STATES SNOMED Code(s): 209903312 (2) Pain in left knee Current Visit: Yes Status: Acute Code(s): M25.562 - PAIN IN LEFT KNEE SNOM ED Code(s): 66372291 (3) History of MRSA infection Current Visit: Yes Status: Acute Code(s): Z86.14 - PERSONAL HISTORY OF METHICILLIN RESIS STAPH INFECTION SNOMED Code(s): 194331155 (4) History of pulmonary embolism Current Visit: No Status: Acute Code(s): Z86.711 - PERSONAL HISTORY OF PULMONARY EMBOLISM SNOMED Code(s): 726147910 (5) History of total knee arthroplasty Current Visit: No Status: Acute Code(s): Z96.659 - PRESENCE OF UNSPECIFIED ARTIFICIAL KNEE JOINT SNOMED Code(s): 4493763767049 Plan: 1. Continue pain control. 2. Appreciate input from medicine. 3. No surgical intervention planned. We will continue to follow.
[2018-11-24] MEDS: GABAPENTIN 300 MG CAP PO SCH ×2 (11:04→20:09)
[2018-11-24] MEDS: FAMOTIDINE 20 MG TAB PO SCH ×2 (11:04→20:09)
[2018-11-24] MEDS: RIVAROXABAN 20 MG TAB PO SCH (11:04)
[2018-11-24] MEDS: THIAMINE 100 MG TAB PO SCH (11:04)
[2018-11-24] MEDS: MAGNESIUM OXIDE 400 MG TAB PO SCH (11:04)
--- NOTE | 2018-11-24 11:51 | P.HPIM ---
History of Present Illness H&P Date: 11/24/18 Chief Complaint: Elevated d-dimer, leg pain Addy Villalpando is a 58 yo M with PMH significant for GI bleed, COPD, DVT, GERD, pulmonary embolism, seizure disorder, alcoholism and syncope who presented to the ED complaining of chronic leg pain of more than a year duration. He states initially began with a postoperative infection after a total knee arthroplasty. He states that the hardware had to be removed and subsequently had an antibiotic spacer placed. Patient notes since this complication he has been mostly bedbound/wheelchair bound. Patient does admit to history of pulmonary embolism and is compliant on Xarelto. He does endorse intermittent swelling of the legs bilaterally. He states this is been persistent since his surgery. Patient does not feel his leg pain has changed in intensity or character recently, just has been present so long. He takes [place] 7.5 mg which he does not feel is helping. Patient denies any fevers, chills, chest pain or shortness of breath. In the ED, vitals were stable and labs significant for Hgb 7 and d-dimer 1.5. LE doppler negative for DVT. Pt was unable to have IV established for CTA so is admitted to obs to rule out PE. Review of Systems All systems: negative Constitutional: Denies chills, Denies fever Eyes: denies blurred vision, denies pain Ears, nose, mouth and throat: Denies headache, Denies sore throat Cardiovascular: Denies chest pain, Denies shortness of breath Respiratory: Denies cough Gastrointestinal: Denies abdominal pain, Denies diarrhea, Denies nausea, Denies vomiting Musculoskeletal: Denies myalgias Integumentary: Denies pruritus, Denies rash Neurological: Denies numbness, Denies weakness Psychiatric: Denies anxiety, Denies depression Endocrine: Denies fatigue, Denies weight change Hematologic/Lymphatic: Reports lymphedema Past Medical History Past Medical History: Deep Vein Thrombosis (DVT), GERD/Reflux, Osteoarthritis (OA), Pulmonary Embolus (PE), Seizure Disorder, Syncope Additional Past Medical History / Comment(s): Alcoholism, recent hospitalization for bilateral pulmonary embolism with clot occluding the left pulmonary artery and evidence of right ventricular strain pattern maintained on anticoagulation, COPD, chronic hypoxic respiratory failure, FEV1 of 51% of predicted with chronic hypoxic respiratory failure, chronic smoker carries more than on the PACU smoking history, alcoholism, history of delirium tremens, history of recurrent falls, history of rib fractures related to falls, GERD, diverticulosis, seizure disorder, osteoarthritis, history of small bowel obstruction secondary to incarcerated right inguinal hernia, History of Any Multi-Drug Resistant Organisms: MRSA Date of last positivie culture/infection: 05/13/18 MDRO Source:: KNEE Past Surgical History: Orthopedic Surgery Additional Past Surgical History / Comment(s): Colonoscopies and polypectomies, 10/21/15 normal cardiac cath, multiple inguinal hernia surg., bilateral knee art hroscopies and pt states bilateral knee arthroplasties."had blood clots removed from lungs at [facility], i'not sure what they did" Past Anesthesia/Blood Transfusion Reactions: No Reported Reaction Past Psychological History: Anxiety, Depression Smoking Status: Current every day smoker Past Alcohol Use History: Occasional Past Drug Use History: None Reported - Past Family History Father Family Medical History: Coronary Artery Disease (CAD), Myocardial Infarction (SD) Additional Family Medical History / Comment(s): Father of a SD at the age of 73 yrs. Mother Family Medical History: Cancer Additional Family Medical History / Comment(s): BREAST CA Medications and Allergies Home Medications Medication Instructions Recorded Confirmed Type HYDROcodone/APAP 7.5-325MG [[place] 1 tab PO Q6H PRN 05/06/18 11/23/18 History 7.5-325] Pantoprazole [Protonix] 40 mg PO DAILY 05/06/18 11/23/18 History Rivaroxaban [Xarelto] 20 mg PO DAILY 05/06/18 11/23/18 History ALPRAZolam [Xanax] 0.5 mg PO TID PRN 07/19/18 11/23/18 History Magnesium Oxide [Mag-Ox] 400 mg PO DAILY 07/19/18 11/23/18 History Thiamine HCl [Vitamin B-1] 100 mg PO DAILY 11/23/18 11/23/18 History Allergies Allergy/AdvReac Type Severity Reaction Status Date / Time tramadol AdvReac Mild Itching Verified 11/23/18 20:25 Physical Exam Vitals: Vital Signs Temp Pulse Pulse Resp BP BP Pulse Ox 11/24/18 08:30 97.5 F L 86 18 108/71 97 11/24/18 04:00 97.8 F 64 19 102/70 96 11/24/18 03:30 97 20 105/50 89 L 11/24/18 02:30 94 21 112/72 97 11/24/18 01:30 85 18 116/71 95 11/23/18 23:17 78 19 107/73 99 11/23/18 22:30 80 19 108/70 90 L 11/23/18 22:00 78 20 104/71 97 11/23/18 21:30 79 19 110/77 96 11/23/18 21:00 80 18 106/84 94 L 11/23/18 20:30 77 18 104/73 98 11/23/18 20:02 98.7 F 81 19 104/73 97 Intake and Output 11/23/18 11/24/18 11/24/18 22:59 06:59 14:59 Intake Total 50 Output Total 225 Balance -175 Intake: Amount of Fluid Infused ( 50 ml) Output: Urine 225 Other: # Voids 0 # Bowel Movements 0 Weight 72.575 kg 72 kg - Constitutional General appearance: no acute distress - EENT Eyes: EOMI, PERRLA - Neck Neck: no lymphadenopathy, no thyromegaly - Respiratory Respiratory: bilateral: CTA, negative: rales, rhonchi - Cardiovascular Rhythm: regular Heart sounds: normal: S1, S2 Abnormal Heart Sounds: no systolic murmur - Gastrointestinal General gastrointestinal: normal bowel sounds, no organomegaly, soft, no t enderness - Integumentary Integumentary: normal, no rash - Neurologic Neurologic: CNII-XII intact - Musculoskeletal BLE with 2+ edema, tenderness to palpation throughout leg. No erythema or focal tenderness Musculoskeletal: generalized weakness - Psychiatric Psychiatric: A&O x's 3, appropriate affect Results CBC & Chem 7: 11/23/18 21:35 11/23/18 21:35 Labs: Abnormal Lab Results - Last 24 Hours (Table) 11/23/18 11/23/18 11/23/18 Range/Units 21:35 21:35 21:35 RBC 3.09 L (4.30-5.90) m/uL Hgb 7.2 L (13.0-17.5) gm/dL Hct 26.4 L (39.0-53.0) % MCH 23.2 L (25.0-35.0) pg MCHC 27.2 L (31.0-37.0) g/dL RDW 17.8 H (11.5-15.5) % Plt Count 540 H (150-450) k/uL D-Dimer 1.54 H (<0.60) mg/L FEU Chloride 110 H (98-107) mmol/L Calcium 8.1 L (8.4-10.2) mg/dL AST 10 L (17-59) U/L ALT 13 L (21-72) U/L Total Protein 5.7 L (6.3-8.2) g/dL Albumin 2.7 L (3.5-5.0) g/dL Thrombosis Risk Factor Assmnt - Choose All That Apply Any of the Below Risk Factors Present?: Yes Each Factor Represents 1 point: Age 41-60 years, Medical pt on bed rest, Swollen legs (current) Other Risk Factors: Yes Each Risk Factor Represents 2 Points: Major surgery Each Risk Factor Represents 3 Points: History of DVT/PE Other congenital or acquired thrombophilia - If yes, enter type in comment: No Thrombosis Risk Factor Assessment Total Risk Factor Score: 8 Thrombosis Risk Factor Assessment Level: High Risk Assessment and Plan Assessment: 1. Bilateral leg pain. Continue his prn norco and will add gabapentin 300 mg bid 2. History of removal of joint prosthesis due to infection. Ortho consulted, no acute intervention. He will keep scheduled outpatient appt 3. Elevated d-dimer. History of pulmonary embolism. Pt is anticoagulated on xarelto. Doppler negative for DVT. Will establish IV access to complete V/Q scan 4.
[2018-11-25] MEDS: SODIUM CHLORIDE 0.9% 1,000 ML IV SCH (05:39)
--- NOTE | 2018-11-25 07:59 | P.PN ---
Subjective Progress Note Date: 11/25/18 This is a 58-year-old male who is admitted for left knee pain and elevated d- dimer. Orthopedics is consulted due to history of MRSA infection of his left total knee. Patient is a well-known patient of [facility]. Patient states that his left knee continues to be painful today, but he denies any new concerns or complaints. Patient denies any fever/chills, numbness, weakness, tingling, abdominal pain, shortness of breath or chest pain. Objective - Vital Signs Vital signs: Vital Signs Temp 97.6 F 11/25/18 03:35 Pulse 89 11/25/18 03:35 Resp 18 11/25/18 03:35 BP 118/67 11/25/18 03:35 Pulse Ox 100 11/25/18 03:35 Intake & Output 11/24/18 11/25/18 11/25/18 18:59 06:59 18:59 Intake Total 240 Output Total 400 75 Balance -160 -75 Weight 73 kg Intake: Oral 240 Output: Urine 400 75 Other: Voiding Method Urinal # Voids 1 1 # Bowel Movements 0 - Exam On exam patient is lying comfortably in bed in no acute distress. The left knee is mildly swollen. Incision is well-healed with no erythema, drainage or warmth. There is mild swelling of bilateral lower extremities. Skin is intact. Sensation intact. Bilateral lower extremities are warm and well perfused. Patient has bilateral full foot and ankle motion without pain or difficulty. Neurovascular status and circulatory status are intact. - Labs CBC & Chem 7: 11/23/18 21:35 11/23/18 21:35 Assessment and Plan (1) 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 Current Visit: Yes Status: Acute Code(s): Z86.19 - PERSONAL HISTORY OF OTHER INFECTIOUS AND PARASITIC DISEASES; Z98.890 - OTHER SPECIFIED POSTPROCEDURAL STATES SNOMED Code(s): 222545114 (2) Pain in left knee Current Visit: Yes Status: Acute Code(s): M25.562 - PAIN IN LEFT KNEE SNOMED Code(s): 47289835 (3) History of MRSA infection Current Visit: Yes Status: Acute Code(s): Z86.14 - PERSONAL HISTORY OF METHICILLIN RESIS STAPH INFECTION SNOMED Code(s): 551418946 (4) History of pulmonary embolism Current Visit: No Status: Acute Code(s): Z86.711 - PERSONAL HISTORY OF PULMONARY EMBOLISM SNOMED Code(s): 303137128 (5) History of total knee arthroplasty Current Visit: No Status: Acute Code(s): Z96.659 - PRESENCE OF UNSPECIFIED ARTIFICIAL KNEE JOINT SNOMED Code(s): 3366192888350 Plan: 1. Continue pain control. 2. Appreciate input from medicine. 3. No surgical intervention planned. Patient may follow up as an outpatient with [facility].
[2018-11-25] MEDS: THIAMINE 100 MG TAB PO SCH (08:13)
[2018-11-25] MEDS: MAGNESIUM OXIDE 400 MG TAB PO SCH (08:13)
[2018-11-25] MEDS: FAMOTIDINE 20 MG TAB PO SCH ×2 (08:13→20:13)
[2018-11-25] MEDS: RIVAROXABAN 20 MG TAB PO SCH (08:13)
[2018-11-25] MEDS: GABAPENTIN 300 MG CAP PO SCH (08:13)
[2018-11-25] MEDS: HYDROcodone/APAP 5-325MG 1 EACH TAB PO PRN ×2 (08:13→20:14)
--- NOTE | 2018-11-25 11:37 | XR ---
EXAMINATION TYPE: XR chest 2V DATE OF EXAM: 11/25/2018 COMPARISON: 07/19/2018 HISTORY: 58-year-old male history of PE, shortness of breath TECHNIQUE: AP and lateral views FINDINGS: Heart normal size. Aorta and pulmonary vasculature within normal limits. Mild interstitial prominence . Trace effusions on the lateral view. IMPRESSION: Trace effusions on the lateral view. Mild interstitial prominence. Correlate to exclude mild pulmonar y vascular congestion.
--- NOTE | 2018-11-25 12:07 | NM ---
EXAMINATION TYPE: NM pul vent and perfuse DATE OF EXAM: 11/25/2018 COMPARISON: Chest x-ray 11/25/2018 HISTORY: Shortness of breath TECHNIQUE: Utilizing inhalation of 69.4 mCi Tc 99m DTPA aerosol and intravenous injection of 5.47 mC i of Tc 99m MAA, ventilation and perfusion images are acquired post injection in multiple projections . FINDINGS: Exam is limited by central clumping of radiotracer on the ventilation images. There is marked asymmetry on both ventilation and perfusion images with reduced uptake involving the left lung. Despite the limitation exam with multiple matched defects noted. There does appear to be a large perfusion defect involving the left upper lobe. IMPRESSION: Assessment for probability is limited due to clumping of radiotracer centrally and a markedly limited exam however, there does appear to be a large perfusion defect within the left upper lobe. Intermedi ate to high probability for pulmonary embolism is suspected.
--- NOTE | 2018-11-25 12:33 | P.PN ---
Subjective Progress Note Date: 11/25/18 Pt seen and evaluated at bedside. He went for V/Q scan today which was technically difficult but did result with intermediate to high concern for SHAHZAD PE. His chronic leg pain is improved with gabapentin. He denies chest pain or shortness of breath. Objective - Vital Signs Vital signs: Vital Signs Temp 98.4 F 11/25/18 08:00 Pulse 86 11/25/18 08:00 Resp 18 11/25/18 08:00 BP 105/68 11/25/18 08:00 Pulse Ox 98 11/25/18 08:00 Intake & Output 11/24/18 11/25/18 11/25/18 18:59 06:59 18:59 Intake Total 240 Output Total 400 75 Balance -160 -75 Weight 73 kg Intake: Oral 240 Output: Urine 400 75 Other: Voiding Method Urinal Urinal # Voids 1 1 1 # Bowel Movements 0 - Exam General: well developed, well nourished, tired but NAD HEENT: NC/AT, mucus membranes moist Lungs: CTAB, normal respiratory effort CV: RRR, no murmur Ext: LLE tenderness improved. 2+ edema bilaterally - Labs CBC & Chem 7: 11/23/18 21:35 11/23/18 21:35 Assessment and Plan Assessment: 1. Elevated d-dimer. History of pulmonary embolism. Pt is anticoagulated on xarelto. Doppler negative for DVT. V/Q scan with intermediate to high probability for PE. Switch Xarelto to therapeutic dose lovenox. Proceed with CTA 2. Bilateral leg pain. Improved with addition of gabapentin. Cont [place] 3. History of removal of joint prosthesis due to infection. Ortho consulted, no acute intervention. He will keep scheduled outpatient appt (1) Elevated d-dimer Current Visit: Yes Status: Acute Code(s): R79.89 - OTHER SPECIFIED ABNORMAL FINDINGS OF BLOOD CHEMISTRY SNOMED Code(s): 377732016 (2) 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 Current Visit: Yes Status: Acute Code(s): Z86.19 - PERSONAL HISTORY OF OTHER INFECTIOUS AND PARASITIC DISEASES; Z98.890 - OTHER SPECIFIED POSTPROCEDURAL STATES SNOMED Code(s): 424734937 (3) Pain of left leg Current Visit: Yes Status: Acute Code(s): M79.605 - PAIN IN LEFT LEG SNOMED Code(s): 948367176
--- NOTE | 2018-11-25 13:16 | CT ---
EXAMINATION TYPE: CT angio chest DATE OF EXAM: 11/25/2018 COMPARISON: 10/10/2009 HISTORY: abnormal vq scan CT DLP: 408.5 mGycm CONTRAST: CT chest with contrast and 3D reconstruction with MIP imaging is performed with IV Contrast, patient injected with 100 mL of Isovue 370. Contrast-enhanced CT of the chest was performed through the course of the pulmonary arteries with solomon g and mediastinal window settings submitted. 3D reconstruction with MIP imaging was also performed. PULMONARY ARTERIES: The pulmonary arteries and their major tributaries are patent. I do not see jerome dence for sizable filling defect to suggest pulmonary embolic process. LUNGS: Right basilar atelectasis. Tiny effusions. Upper lobe emphysematous change and mild subpleural fibrosis. MEDIASTINUM: Thoracic aorta is of normal caliber,however, evaluation is limited given timing of the contrast bolus. If there is concern for thoracic aortic pathology consider ANDER. Correlate clinicall y . The heart is not enlarged. No evidence for mediastinal mass. No mediastinal lymph nodes greater than 1cm. HILAR STRUCTURES: No evidence for mass. No hilar lymph nodes greater than 1 cm. UPPER ABDOMEN: No significant abnormality is seen. IMPRESSION: 1. No evidence for Pulmonary embolism at this time.
[2018-11-25 13:18] LABS: Anisocytosis Slight; HCT 29.1 % (39.0-53.0); HGB 7.7 gm/dL (13.0-17.5); Hypochromasia Marked; MCH 23.1 pg (25.0-35.0); MCHC 26.5 g/dL (31.0-37.0); MCV 87.1 fL (80.0-100.0); Platelet Count 503 k/uL (150-450); Poikilocytosis Slight; RBC 3.35 m/uL (4.30-5.90); RDW 17.1 % (11.5-15.5); WBC 11.3 k/uL (3.8-10.6)
[2018-11-25 13:47] LABS: African American GFR (CKD) >90 (>60 ml/min/1.73 sqM); Anion Gap 10 mmol/L; Blood Urea Nitrogen 10 mg/dL (9-20); Calcium 8.2 mg/dL (8.4-10.2); Carbon Dioxide 26 mmol/L (22-30); Chloride 107 mmol/L (98-107); Glucose 75 mg/dL (74-99); Non-African American GFR(CKD) >90 (>60 ml/min/1.73 sqM); Potassium 3.9 mmol/L (3.5-5.1); Sodium 143 mmol/L (137-145)
--- NOTE | 2018-11-25 14:55 | P.DS ---
Providers Date of admission: 11/24/18 02:52 Expected date of discharge: 11/25/18 Attending physician: Reggie Edward MD Consults: 11/24/18 02:53 Consult Physician Routine Consulting Provider: Bassem Traylor Consult Reason/Comments: Your patient Do you want consulting provider notified?: Yes Primary care physician: Claudette Edward - Discharge Diagnosis(es) (1) Elevated d-dimer Current Visit: Yes Status: Acute (2) 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 Current Visit: Yes Status: Acute (3) Pain of left leg Current Visit: Yes Status: Acute Hospital Course: Addy Villalpando is a 58 yo M with PMH significant for GI bleed, COPD, DVT, GERD, pulmonary embolism, seizure disorder, alcoholism and syncope who presented to the ED complaining of chronic leg pain of more than a year duration. His symptoms initially began with a postoperative infection after a total knee arthroplasty. Patient notes since this complication he has been mostly bedbound/wheelchair bound. Patient does admit to history of pulmonary embolism and is compliant on Xarelto. He does endorse intermittent swelling of the legs bilaterally. He states this is been persistent since his surgery. Patient does not feel his leg pain has changed in intensity or character recently, just has been present so long. He takes [place] 7.5 mg which he does not feel is helping. Patient denied any fevers, chills, chest pain or shortness of breath. In the ED, vitals were stable and labs significant for Hgb 7 and d-dimer 1.5. LE doppler negative for DVT. Pt was unable to have IV established for CTA so is admitted to obs to rule out PE. Orthopedic surgery was consulted to evaluate his knee and determined no need for inpatient intervention. On 11/25 pt had a midline placed and was able to complete V/Q scan which was indeterminate. A CTA was then performed which was negative for PE. During his stay his pain was controlled with home [place] as well as gabapentin 300 mg bid. He is discharged home in stable condition and recommended to follow up with PCP and Ortho. He was given a 10 day script of gabapentin at discharge. Discharge Exam General: alert, well developed, NAD HEENT: normocephalic, mucus membranes moist Lungs: Clear marni, normal respiratory effort CV: RRR, no murmur Abd: soft, nontender, no organomegaly Ext: Tender to light touch amrni LE, 2+ edema BLE Neuro: CN II-XII intact, str 5/5 Patient Condition at Discharge: Stable Plan - Discharge Summary Discharge Rx Participant: Yes New Discharge Prescriptions: New Gabapentin [Neurontin] 300 mg PO BID 10 Days #20 cap Continue HYDROcodone/APAP 7.5-325MG [[place] 7.5-325] 1 tab PO Q6H PRN PRN Reason: Pain Pantoprazole [Protonix] 40 mg PO DAILY Rivaroxaban [Xarelto] 20 mg PO DAILY Magnesium Oxide [Mag-Ox] 400 mg PO DAILY ALPRAZolam [Xanax] 0.5 mg PO TID PRN PRN Reason: Anxiety Thiamine HCl [Vitamin B-1] 100 mg PO DAILY Discharge Medication List HYDROcodone/APAP 7.5-325MG [[place] 7.5-325] 1 tab PO Q6H PRN 05/06/18 [History] Pantoprazole [Protonix] 40 mg PO DAILY 05/06/18 [History] Rivaroxaban [Xarelto] 20 mg PO DAILY 05/06/18 [History] ALPRAZolam [Xanax] 0.5 mg PO TID PRN 07/19/18 [History] Magnesium Oxide [Mag-Ox] 400 mg PO DAILY 07/19/18 [History] Thiamine HCl [Vitamin B-1] 100 mg PO DAILY 11/23/18 [History] Gabapentin [Neurontin] 300 mg PO BID 10 Days #20 cap 11/25/18 [Rx] Follow up Appointment(s)/Referral(s): Claudette Edward DO [Primary Care Provider] - 1-2 days Discharge Disposition: HOME SELF-CARE
[2018-11-25] MEDS ORDERED: ENOXAPARIN 80 MG/0.8 ML SYRINGE SQ SCH (21:00)
[2018-11-25] MEDS: ACETAMINOPHEN TAB 325 MG TAB PO PRN (23:30)
[2018-11-26] MEDS: HYDROcodone/APAP 5-325MG 1 EACH TAB PO PRN ×2 (03:14→10:32)
[2018-11-26] MEDS: SODIUM CHLORIDE 0.9% 1,000 ML IV SCH (04:28)
[2018-11-26] MEDS: ACETAMINOPHEN TAB 325 MG TAB PO PRN (06:06)
[2018-11-26] MEDS ORDERED: RIVAROXABAN 20 MG TAB PO ONE (08:00)
[2018-11-26 08:09] VITALS: BP 146/97; PULSE 92; RESP 16; TEMP 97.9
[2018-11-26] MEDS: MAGNESIUM OXIDE 400 MG TAB PO SCH (08:33)
[2018-11-26] MEDS: THIAMINE 100 MG TAB PO SCH (08:33)
[2018-11-26] MEDS: FAMOTIDINE 20 MG TAB PO SCH (08:33)
== END 2018-11-26 11:06 | disposition home or self-care (01) ==
LOC: EC 19:58 → 3SCARD 11-24 02:52 → 4SSUR 11-25 22:34
PROVIDERS: ADMIT Family Medicine; ATTEND Family Medicine
DX: M79.605 Pain in left leg (principal); G40.909 Epilepsy, unspecified, not intractable, without status epilepticus; J44.9 Chronic obstructive pulmonary disease, unspecified; F41.9 Anxiety disorder, unspecified; R79.1 Abnormal coagulation profile; D64.9 Anemia, unspecified; J96.11 Chronic respiratory failure with hypoxia; F32.9 Major depressive disorder, single episode, unspecified; Z91.81 History of falling; F17.200 Nicotine dependence, unspecified, uncomplicated; M19.90 Unspecified osteoarthritis, unspecified site; G89.29 Other chronic pain; K57.90 Diverticulosis of intestine, part unspecified, without perforation or abscess without bleeding; K21.9 Gastro-esophageal reflux disease without esophagitis; Z86.718 Personal history of other venous thrombosis and embolism; Z86.711 Personal history of pulmonary embolism; Z86.14 Personal history of Methicillin resistant Staphylococcus aureus infection; Z86.010 Personal history of colon polyps; Z96.653 Presence of artificial knee joint, bilateral; Z79.01 Long term (current) use of anticoagulants; Z79.899 Other long term (current) drug therapy; Z99.3 Dependence on wheelchair; Z74.01 Bed confinement status; Z80.3 Family history of malignant neoplasm of breast; Z82.49 Family history of ischemic heart disease and other diseases of the circulatory system
CPT/HCPCS: 96376 ×2; 93005; 96372; 96374; 99284; 36415; 36410; 76937; 86900; 86901; 85379; 83880; 80053; 80048; 85025; 85027; 85610; 85730; 86850; 82272; 71046; 93971; 71275; 78582; G0378 ×4; A9540; A9567; J2270 ×2; J1650; Q9967; 76380

== ENCOUNTER 2018-12-12 20:22 | Inpatient (IN) | payer MEDICARE, OTHER ==
[2018-12-12 20:43] LABS: Glucose,Whole Blood 50 mg/dL (75-99)
[2018-12-12] MEDS ORDERED: MORPHINE SULFATE 4 MG/ML SYRINGE IM STA (21:40)
[2018-12-12 22:04] LABS: Albumin 4.3 g/dL (3.5-5.0); C Reactive Protein 66.2 mg/L (<10.0); Calcium 8.5 mg/dL (8.4-10.2); Potassium 4.8 mmol/L (3.5-5.1); Total Bilirubin 0.8 mg/dL (0.2-1.3); Total Protein 8.4 g/dL (6.3-8.2)
[2018-12-12 22:18] LABS: Anisocytosis Slight; Basophils # (A) 0.1 k/uL (0-0.2); Basophils % (A) 1 %; Eosinophils % (A) 0 %; HCT 37.6 % (39.0-53.0); Hypochromasia Marked; Lymphocytes % (A) 14 %; MCH 21.6 pg (25.0-35.0); MCHC 25.8 g/dL (31.0-37.0); MCV 83.8 fL (80.0-100.0); Mean Platelet Volume 6.8; Microcytosis Slight; Monocytes # (A) 0.4 k/uL (0-1.0); Monocytes % (A) 6 %; Neutrophils # (A) 5.7 k/uL (1.3-7.7); Neutrophils % (A) 78 %; Platelet Count 462 k/uL (150-450); Poikilocytosis Slight; RBC 4.49 m/uL (4.30-5.90); RDW 19.4 % (11.5-15.5); WBC 7.3 k/uL (3.8-10.6)
[2018-12-12 22:20] LABS: HGB 9.7 gm/dL (13.0-17.5)
--- NOTE | 2018-12-12 22:27 | XR ---
EXAM: XR Left Knee, 3 views CLINICAL HISTORY: ITS.REASON XR Reason: Pain TECHNIQUE: Three views of the left knee. COMPARISON: 07/19/2018 FINDINGS: Bones/joints: Lucency along the anterior aspect of the femoral component of the prosthesis. Large knee effusion. No acute fracture or malalignment. Left knee arthroplasty. Soft tissues: Unremarkable. IMPRESSION: 1. Lucency along the anterior aspect of the femoral component of the prosthesis may be related to loosening. 2. Large knee effusion.
--- NOTE | 2018-12-12 22:30 | ED ---
Extremity Problem HPI - General Chief complaint: Extremity Problem,Nontraumatic Stated complaint: Vomiting Time Seen by Provider: 12/12/18 20:57 Source: patient, EMS Mode of arrival: EMS - History of Present Illness Initial comments: The patient is a 58-year-old male with past medical history of left total knee arthroplasty who presents to the emergency room with reported increasing pain and swelling in his left knee. The patient did have the procedure performed by Dr. Traylor. Subsequently the patient developed MRSA infection. He did have a stagewide revisiting performed. Stage one was performed in March of last year. He did remove the hardware placed and had an antibiotic spacer put in. The patient reports that he was on antibiotics. He has not had an infection in 6 months. He has been taking Warren at home for his chronic pain. States that he ran out 2 days ago. He does have a prescription waiting for him at the pharmacy however he has been unable to drive to go get it. Over the past day he has reported increasing swelling, redness and warmth to his left knee. He was concerned for recurrent infection therefore called EMS. The patient states the pain has been so severe he has been unable to eat. He has had intractable nausea and vomiting. An Accu-Chek is performed upon patient's arrival and he is notably hypoglycemic. No history of diabetes. He denies any fevers or chills. He does take Xarelto. Denies missing any doses. Her no other alleviating, precipitating or modifying factors - Related Data Home Medications Medication Instructions Recorded Confirmed Pantoprazole [Protonix] 40 mg PO DAILY 05/06/18 12/12/18 Rivaroxaban [Xarelto] 20 mg PO DAILY 05/06/18 12/12/18 Magnesium Oxide [Mag-Ox] 400 mg PO DAILY 07/19/18 12/12/18 Thiamine HCl [Vitamin B-1] 100 mg PO DAILY 11/23/18 12/12/18 Folic Acid 1 mg PO DAILY 12/12/18 12/12/18 Previous Rx's Medication Instructions Recorded Artificial Tears-Hypromellose 2 drops BOTH EYES QID PRN bottle 12/19/18 [Artificial Tear Drops] Ferrous Sulfate [Iron (65 MG 325 mg PO W/LUNCH tab 12/19/18 Elemental)] Gabapentin [Neurontin] 100 mg PO BID #6 cap 07/29/19 HYDROcodone/APAP 7.5-325MG [Warren 1 tab PO Q6H PRN #12 tab 12/19/18 7.5-325] Multivitamins, Thera [Multivitamin 1 tab PO DAILY #1 tablet 12/19/18 (formulary)] Nicotine 21Mg/24Hr Patch [Habitrol] 1 patch TRANSDERM DAILY patch 12/19/18 Sennosides-Docusate Sodium 2 each PO BID tab 12/19/18 [Senokot-S] Vancomycin HCl in 5 % Dextrose 1 gm IV DIRECTED #30 plast..bag 12/19/18 [Vancomycin 1 Gram/250 ml-D5w] Allergies Allergy/AdvReac Type Severity Reaction Status Date / Time tramadol AdvReac Mild Itching Verified 12/12/18 20:42 Review of Systems ROS Statement: Those systems with pertinent positive or pertinent negative responses have been documented in the HPI. ROS Other: All systems not noted in ROS Statement are negative. Past Medical History Past Medical History: Deep Vein Thrombosis (DVT), GERD/Reflux, Osteoarthritis (OA), Pulmonary Embolus (PE), Seizure Disorder, Syncope Additional Past Medical History / Comment(s): Alcoholism, recent hospitalization for bilateral pulmonary embolism with clot occluding the left pulmonary artery and evidence of right ventricular strain pattern maintained on anticoagulation, COPD, chronic hypoxic respiratory failure, FEV1 of 51% of predicted with chronic hypoxic respiratory failure, chronic smoker carries more than on the PACU smoking history, alcoholism, history of delirium tremens, history of recurrent falls, history of rib fractures related to falls, GERD, diverticulosis, seizure disorder, osteoarthritis, history of small bowel obstruction secondary to incarcerated right inguinal hernia, History of Any Multi-Drug Resistant Organisms: MRSA Date of last positivie culture/infection: 05/13/18 MDRO Source:: KNEE Past Surgical History: Orthopedic Surgery Additional Past Surgical History / Comment(s): Colonoscopies and polypectomies, 10/21/15 normal cardiac cath, multiple inguinal hernia surg., bilateral knee arthroscopies and pt states bilateral knee arthroplasties."had blood clots removed [facility] at [facility], i'not sure what they did". Knee surge ry- 7 surgeries on the left knee Past Anesthesia/Blood Transfusion Reactions: No Reported Reaction Past Psychological History: Anxiety, Depression Smoking Status: Current every day smoker Past Alcohol Use History: Occasional Past Drug Use History: None Reported - Past Family History Father Family Medical History: Coronary Artery Disease (CAD), Myocardial Infarction (NH) Additional Family Medical History / Comment(s): Father of a NH at the age of 73 yrs. Mother Family Medical History: Cancer Additional Family Medical History / Comment(s): BREAST CA General Exam General appearance: alert, in no apparent distress Head exam: Present: atraumatic, normocephalic, normal inspection Eye exam: Present: normal appearance, PERRL, EOMI. Absent: scleral icterus, conjunctival injection, periorbital swelling ENT exam: Present: normal exam, mucous membranes moist Neck exam: Present: normal inspection. Absent: tenderness, meningismus, lymphadenopathy Respiratory exam: Present: normal lung sounds bilaterally. Absent: respiratory distress, wheezes, rales, rhonchi, stridor Cardiovascular Exam: Present: regular rate, normal rhythm, normal heart sounds. Absent: systolic murmur, diastolic murmur, rubs, gallop, clicks GI/Abdominal exam: Present: soft, normal bowel sounds. Absent: distended, tenderness, guarding, rebound, rigid Extremities exam: Present: normal inspection, full ROM, normal capillary refill. Absent: tenderness, pedal edema, joint swelling, calf tenderness Back exam: Present: normal inspection Neurological exam: Present: alert, oriented X3, CN II-XII intact Psychiatric exam: Present: normal affect, normal mood Skin exam: Present: warm, dry, normal color, other (b/l le edema. The patient has markedly swelling of his left knee. There is a large joint effusion. It is warm to the touch. He has decreased and painful range of motion. He has intact 2+ point discrimination and soft touch. Intact reflexes. 2+ DP and PT pulses). Absent: rash Course Vital Signs 12/12/18 12/13/18 12/13/18 20:24 01:45 05:10 Temperature 98.7 F 98 F Pulse Rate 101 H 90 92 Pulse Rate [ Pulse Oximetery ] Respiratory 18 18 17 Rate Blood Pressure 115/82 107/71 115/87 Blood Pressure [Right Arm] O2 Sat by Pulse 93 L 98 97 Oximetry 12/13/18 12/13/18 12/13/18 06:25 09:09 13:45 Temperature 98.2 F 97.5 F L 98.7 F Pulse Rate 87 Pulse Rate [ 87 79 Pulse Oximetery ] Respiratory 18 20 20 Rate Blood Pressure 113/75 Blood Pressure 113/73 107/77 [Right Arm] O2 Sat by Pulse 100 98 98 Oximetry 12/13/18 15:09 Temperature 97.6 F Pulse Rate Pulse Rate [ 81 Pulse Oximetery ] Respiratory 18 Rate Blood Pressure Blood Pressure 105/71 [Right Arm] O2 Sat by Pulse 93 L Oximetry Procedures - Joint Aspiration/Injection Consent Obtained: verbal consent Indications: R/O septic arthritis Side of Body: left Joint Aspirated: knee Ultrasound Guidance: No Skin Prep: sterile prep and drape Local Anesthesia Used: Lidocaine 1% Amount of Anesthesia Used (mLs): 10 (cc) Needle Size Used: 20G Syringe Size Used: 10cc Fluid Obtained: clear Total Fluid Obtained (mls): 15 (cc) Patient Tolerated Procedure: well Complications: none Medical Decision Making - Medical Decision Making Upon arrival the patient was placed into room 16. He is hooked up to continuous pulse ox and cardiac monitoring. A 12-lead EKG is performed. We did obtain IV access. The patient was given amp of dextrose for his hypoglycemia. He is reevaluated and does have improvement in his glucose level. I did recommend laboratory studies. A x-ray of the patient's left knee was performed. Upon return results are discussed with the patient. There is a lucency present within the patient's left knee concerning for loosening of the hardware. She does have a large joint effusion. As the patient is reporting that his ex tremity has been warm to the touch with increasing swelling him I am concerned for recurrent infection. Because of this I did call and discuss the case with Dr. Woods. He did recommend that I perform a joint aspiration. The patient did agree to the procedure. The area was cleansed with a ChloraPrep. I then used 1% lidocaine without epinephrine to anesthetize the site. Approximately 10 mL was utilized. I did aspirate 15 mL of fluid. The fluid will be sent for analysis. I did recommend hospital admission for which patient did agree. I will admit the patient to Dr. Edward. I did page him and I am currently awaiting callback. I did place ortho on consult. The patient remained in s table condition awaiting transport to floor - Differential Diagnosis acute/chronic left knee pain, joint effusion, hx mrsa, acute hypoglycemia - Lab Data Result diagrams: 12/18/18 11:30 12/19/18 06:00 Lab Results 12/12/18 12/12/18 12/12/18 Range/Units 20:40 21:25 21:25 WBC 7.3 (3.8-10.6) k/uL RBC 4.49 (4.30-5.90) m/uL Hgb 9.7 L D (13.0-17.5) gm/dL Hct 37.6 L (39.0-53.0) % MCV 83.8 (80.0-100.0) fL MCH 21.6 L (25.0-35.0) pg MCHC 25.8 L (31.0-37.0) g/dL RDW 19.4 H (11.5-15.5) % Plt Count 462 H (150-450) k/uL Neutrophils % 78 % Lymphocytes % 14 % Monocytes % 6 % Eosinophils % 0 % Basophils % 1 % Neutrophils # 5.7 (1.3-7.7) k/uL Lymphocytes # 1.0 (1.0-4.8) k/uL Monocytes # 0.4 (0-1.0) k/uL Eosinophils # 0.0 (0-0.7) k/uL Basophils # 0.1 (0-0.2) k/uL Hypochromasia Marked Poikilocytosis Slight Anisocytosis Slight Microcytosis Slight ESR 17 H (0-15) mm/hr PT (9.0-12.0) sec INR (<1.2) APTT (22.0-30.0) sec Sodium 140 (137-145) mmol/L Potassium 4.8 (3.5-5.1) mmol/L Chloride 100 (98-107) mmol/L Carbon Dioxide 14 L (22-30) mmol/L Anion Gap 26 mmol/L BUN 16 (9-20) mg/dL Creatinine 1.07 (0.66-1.25) mg/dL Est GFR (CKD-EPI)AfAm 89 (>60 ml/min/1.73 sqM) Est GFR (CKD-EPI)NonAf 77 (>60 ml/min/1.73 sqM) Glucose 45 L* (74-99) mg/dL POC Glucose (mg/dL) 50 L (75-99) mg/dL POC Glu [employer] Supply Aide ID Moise Pierce Plasma Lactic Acid Chet (0.7-2.0) mmol/L Calcium 8.5 (8.4-10.2) mg/dL Total Bilirubin 0.8 (0.2-1.3) mg/dL AST 31 (17-59) U/L ALT 9 L (21-72) U/L Alkaline Phosphatase 179 H (38-126) U/L Creatine Kinase 71 (55-170) U/L C-Reactive Protein 66.2 H (<10.0) mg/L Total Protein 8.4 H (6.3-8.2) g/dL Albumin 4.3 (3.5-5.0) g/dL Fluid Source Fluid Color Fluid Appearance Fluid RBC /uL Fluid Nucleated Cells /uL Fluid Polynuclear WBCs % Fluid Mononuclear WBCs % Synovial Crystals (None Seen) 12/12/18 12/12/18 12/13/18 Range/Units 23:03 23:03 00:34 WBC (3.8-10.6) k/uL RBC (4.30-5.90) m/uL Hgb (13.0-17.5) gm/dL Hct (39.0-53.0) % MCV (80.0-100.0) fL MCH (25.0-35.0) pg MCHC (31.0-37.0) g/dL RDW (11.5-15.5) % Plt Count (150-450) k/uL Neutrophils % % Lymphocytes % % Monocytes % % Eosinophils % % Basophils % % Neutrophils # (1.3-7.7) k/uL Lymphocytes # (1.0-4.8) k/uL Monocytes # (0-1.0) k/uL Eosinophils # (0-0.7) k/uL Basophils # (0-0.2) k/uL Hypochromasia Poikilocytosis Anisocytosis Microcytosis ESR (0-15) mm/hr PT 13.9 H (9.0-12.0) sec INR 1.4 H (<1.2) APTT 35.5 H (22.0-30.0) sec Sodium (137-145) mmol/L Potassium (3.5-5.1) mmol/L Chloride (98-107) mmol/L Carbon Dioxide (22-30) mmol/L Anion Gap mmol/L BUN (9-20) mg/dL Creatinine (0.66-1.25) mg/dL Est GFR (CKD-EPI)AfAm (>60 ml/min/1.73 sqM) Est GFR (CKD-EPI)NonAf (>60 ml/min/1.73 sqM) Glucose (74-99) mg/dL POC Glucose (mg/dL) 51 L (75-99) mg/dL POC Glu [employer] Supply Aide ID Moise Pierce Plasma Lactic Acid Chet 1.8 (0.7-2.0) mmol/L Calcium (8.4-10.2) mg/dL Total Bilirubin (0.2-1.3) mg/dL AST (17-59) U/L ALT (21-72) U/L Alkaline Phosphatase (38-126) U/L Creatine Kinase (55-170) U/L C-Reactive Protein (<10.0) mg/L Total Protein (6.3-8.2) g/dL Albumin (3.5-5.0) g/dL Fluid Source Fluid Color Fluid Appearance Fluid RBC /uL Fluid Nucleated Cells /uL Fluid Polynuclear WBCs % Fluid Mononuclear WBCs % Synovial Crystals (None Seen) 12/13/18 12/13/18 12/13/18 Range/Units 01:44 02:54 02:54 WBC (3.8-10.6) k/uL RBC (4.30-5.90) m/uL Hgb (13.0-17.5) gm/dL Hct (39.0-53.0) % MCV (80.0-100.0) fL MCH (25.0-35.0) pg MCHC (31.0-37.0) g/dL RDW (11.5-15.5) % Plt Count (150-450) k/uL Neutrophils % % Lymphocytes % % Monocytes % % Eosinophils % % Basophils % % Neutrophils # (1.3-7.7) k/uL Lymphocytes # (1.0-4.8) k/uL Monocytes # (0-1.0) k/uL Eosinophils # (0-0.7) k/uL Basophils # (0-0.2) k/uL Hypochromasia Poikilocytosis Anisocytosis Microcytosis ESR (0-15) mm/hr PT (9.0-12.0) sec INR (<1.2) APTT (22.0-30.0) sec Sodium (137-145) mmol/L Potassium (3.5-5.1) mmol/L Chloride (98-107) mmol/L Carbon Dioxide (22-30) mmol/L Anion Gap mmol/L BUN (9-20) mg/dL Creatinine (0.66-1.25) mg/dL Est GFR (CKD-EPI)AfAm (>60 ml/min/1.73 sqM) Est GFR (CKD-EPI)NonAf (>60 ml/min/1.73 sqM) Glucose (74-99) mg/dL POC Glucose (mg/dL) 110 H (75-99) mg/dL POC Glu Central Supply Aide ID Eboni Rao Plasma Lactic Acid Chet (0.7-2.0) mmol/L Calcium (8.4-10.2) mg/dL Total Bilirubin (0.2-1.3) mg/dL AST (17-59) U/L ALT (21-72) U/L Alkaline Phosphatase (38-126) U/L Creatine Kinase (55-170) U/L C-Reactive Protein (<10.0) mg/L Total Protein (6.3-8.2) g/dL Albumin (3.5-5.0) g/dL Fluid Source Synovial Fluid Color Red Fluid Appearance [place] 10187 /uL Fluid Nucleated Cells 85601 /uL Fluid Polynuclear WBCs 95 % Fluid Mononuclear WBCs 5 % Synovial Crystals None Seen (None Seen) 12/13/18 12/13/18 12/13/18 Range/Units 05:07 05:09 07:34 WBC (3.8-10.6) k/uL RBC (4.30-5.90) m/uL Hgb (13.0-17.5) gm/dL Hct (39.0-53.0) % MCV (80.0-100.0) fL MCH (25.0-35.0) pg MCHC (31.0-37.0) g/dL RDW (11.5-15.5) % Plt Count (150-450) k/uL Neutrophils % % Lymphocytes % % Monocytes % % Eosinophils % % Basophils % % Neutrophils # (1.3-7.7) k/uL Lymphocytes # (1.0-4.8) k/uL Monocytes # (0-1.0) k/uL Eosinophils # (0-0.7) k/uL Basophils # (0-0.2) k/uL Hypochromasia Poikilocytosis Anisocytosis Microcytosis ESR (0-15) mm/hr PT (9.0-12.0) sec INR (<1.2) APTT (22.0-30.0) sec Sodium (137-145) mmol/L Potassium (3.5-5.1) mmol/L Chloride (98-107) mmol/L Carbon Dioxide (22-30) mmol/L Anion Gap mmol/L BUN (9-20) mg/dL Creatinine (0.66-1.25) mg/dL Est GFR (CKD-EPI)AfAm (>60 ml/min/1.73 sqM) Est GFR (CKD-EPI)NonAf (>60 ml/min/1.73 sqM) Glucose (74-99) mg/dL POC Glucose (mg/dL) 62 L 74 L 71 L (75-99) mg/dL POC Glu Central Supply Aide MASSIMO Rao, Eboni Rao, Kasey Aranda Plasma Lactic Acid Chet (0.7-2.0) mmol/L Calcium (8.4-10.2) mg/dL Total Bilirubin (0.2-1.3) mg/dL AST (17-59) U/L ALT (21-72) U/L Alkaline Phosphatase (38-126) U/L Creatine Kinase (55-170) U/L C-Reactive Protein (<10.0) mg/L Total Protein (6.3-8.2) g/dL Albumin (3.5-5.0) g/dL Fluid Source Fluid Color Fluid Appearance Fluid RBC /uL Fluid Nucleated Cells /uL Fluid Polynuclear WBCs % Fluid Mononuclear WBCs % Synovial Crystals (None Seen) 12/13/18 12/13/18 12/13/18 Range/Units 09:14 11:14 13:44 WBC (3.8-10.6) k/uL RBC (4.30-5.90) m/uL Hgb (13.0-17.5) gm/dL Hct (39.0-53.0) % MCV (80.0-100.0) fL MCH (25.0-35.0) pg MCHC (31.0-37.0) g/dL RDW (11.5-15.5) % Plt Count (150-450) k/uL Neutrophils % % Lymphocytes % % Monocytes % % Eosinophils % % Basophils % % Neutrophils # (1.3-7.7) k/uL Lymphocytes # (1.0-4.8) k/uL Monocytes # (0-1.0) k/uL Eosinophils # (0-0.7) k/uL Basophils # (0-0.2) k/uL Hypochromasia Poikilocytosis Anisocytosis Microcytosis ESR (0-15) mm/hr PT (9.0-12.0) sec INR (<1.2) APTT (22.0-30.0) sec Sodium (137-145) mmol/L Potassium (3.5-5.1) mmol/L Chloride (98-107) mmol/L Carbon Dioxide (22-30) mmol/L Anion Gap mmol/L BUN (9-20) mg/dL Creatinine (0.66-1.25) mg/dL Est GFR (CKD-EPI)AfAm (>60 ml/min/1.73 sqM) Est GFR (CKD-EPI)NonAf (>60 ml/min/1.73 sqM) Glucose (74-99) mg/dL POC Glucose (mg/dL) 85 87 95 (75-99) mg/dL POC Glu Central Supply Aide ID Blue, Kasey Blue, Kasey Blue, Kasey Plasma Lactic Acid Chet (0.7-2.0) mmol/L Calcium (8.4-10.2) mg/dL Total Bilirubin (0.2-1.3) mg/dL AST (17-59) U/L ALT (21-72) U/L Alkaline Phosphatase (38-126) U/L Creatine Kinase (55-170) U/L C-Reactive Protein (<10.0) mg/L Total Protein (6.3-8.2) g/dL Albumin (3.5-5.0) g/dL Fluid Source Fluid Color Fluid Appearance Fluid RBC /uL Fluid Nucleated Cells /uL Fluid Polynuclear WBCs % Fluid Mononuclear WBCs % Synovial Crystals (None Seen) - EKG Data EKG Comments: EKG demonstrates a normal sinus rhythm with ventricular rate of 89. SD interval 124. QRS 82. QTC of 511. There is overall low voltage. No acute ST segment elevations or depressions concerning for ischemic changes Disposition Clinical Impression: Nausea & vomiting, History of MRSA infection, Pain in left knee, Status post revision of total replacement of left knee, Dehydration, Hypoglycemia Disposition: ADMITTED IP TO THIS HOSP Condition: Stable Is patient prescribed a controlled substance at d/c from ED?: No Decision to Admit Reason: Admit from EC Decision Date: 12/13/18 Decision Time: 02:30
[2018-12-12 23:00] LABS: Erythrocyte Sedimentation Rate 17 mm/hr (0-15)
[2018-12-12 23:37] LABS: INR 1.4 (<1.2); Partial Thromboplastin Time 35.5 sec (22.0-30.0); Prothrombin Time 13.9 sec (9.0-12.0)
[2018-12-13 00:36] LABS: Glucose,Whole Blood 51 mg/dL (75-99)
[2018-12-13] MEDS ORDERED: DEXTROSE 50% SYRINGE 50 ML IVP STA (00:36)
[2018-12-13 01:46] LABS: Glucose,Whole Blood 110 mg/dL (75-99)
[2018-12-13] MEDS ORDERED: LIDOCAINE 1% INJ 10MG/ML (20 ML MDV) SQ ONE (02:06)
[2018-12-13] MEDS ORDERED: NALOXONE 0.4 MG/ML 1 ML VIAL IV PRN (02:31)
[2018-12-13] MEDS: DEXTROSE 5%-0.9% NACL 1,000 ML IV SCH ×3 (03:15→16:11)
[2018-12-13] MEDS: MORPHINE SULFATE 4 MG/ML SYRINGE IV PRN ×2 (03:16→07:58)
[2018-12-13 03:51] LABS: Appearance,BF Cloudy; Color,BF Red; Nucleated Cells, Body Fluid 16600 /uL; RBC, Body Fluid 54200 /uL
[2018-12-13 04:41] LABS: Mononuclear WBC,Body Fluid 5 %; Polynuclear WBC,Body Fluid 95 %; Total Cells Counted,Body Fluid 100
[2018-12-13 05:09] LABS: Glucose,Whole Blood 62 mg/dL (75-99)
[2018-12-13 05:13] LABS: Glucose,Whole Blood 74 mg/dL (75-99)
[2018-12-13] MEDS ORDERED: VANCOMYCIN IV PER PHARMACY 1 EACH MISC MISCELLANE PRN (05:21)
[2018-12-13] MEDS ORDERED: VANCOMYCIN 1,250 MG in SODIUM CHLORIDE 0.9% 250 ML IVPB ONE (06:00)
[2018-12-13 07:37] LABS: Glucose,Whole Blood 71 mg/dL (75-99)
[2018-12-13] MEDS: THIAMINE 100 MG TAB PO SCH (07:57)
[2018-12-13] MEDS: PANTOPRAZOLE 40 MG TABLET PO SCH (07:57)
[2018-12-13] MEDS: RIVAROXABAN 20 MG TAB PO SCH (07:57)
[2018-12-13] MEDS: MAGNESIUM OXIDE 400 MG TAB PO SCH (07:57)
[2018-12-13] MEDS: FOLIC ACID 1 MG TAB PO SCH (07:57)
[2018-12-13] MEDS: ONDANSETRON 4 MG/2 ML VIAL IVP PRN (08:13)
[2018-12-13] MEDS ORDERED: GABAPENTIN 300 MG CAP PO SCH (09:00)
[2018-12-13 09:15] LABS: Glucose,Whole Blood 85 mg/dL (75-99)
[2018-12-13 11:17] LABS: Glucose,Whole Blood 87 mg/dL (75-99)
[2018-12-13] MEDS: hydrOXYzine PAMOATE 25 MG CAP PO PRN (11:37)
[2018-12-13] MEDS: HYDROcodone/APAP 7.5-325MG 1 EACH TAB PO PRN ×2 (11:52→18:07)
[2018-12-13 13:51] LABS: Glucose,Whole Blood 95 mg/dL (75-99)
--- NOTE | 2018-12-13 13:57 | P.HPIM ---
History of Present Illness H&P Date: 12/13/18 Chief Complaint: Leg pain Addy Villalpando is a 58 yo M with PMH significant for chronic knee pain s/p postoperative infection, COPD, DVT, GI bleed, PE, alcoholism, seizure disorder who presented to the ED complaining of acutely worsened pain of the L knee which has prevented him from being able to move at all. He states that for the past 17 months since his postoperative infection he has been in chronic severe pain which he rates as 8/10 on average and has been confined mostly to the bed or wheelchair. He states last night it was hurting so bad he had to call EMS. Pt was recently admitted approx 2 weeks ago for the same and at that time discharged with gabapentin for his knee pain. He states he has been taking this medication occasionally and is not sure if it is helping. Pt has been following with Dr. Traylor for the knee and states he has a revision procedure scheduled for approx 2 weeks. In the ED, vitals stable, CBC shows anemia to 10 and plt 400s, XR knee with anterior lucency and large effusion. This am, he complains of severe pain around the knee, exquisite sensitivity to light touch distally, and anxiety related to his pain. Review of Systems All systems: negative Constitutional: Reports chronic pain, Reports malaise, Reports weakness, Denies chills, Denies fever Eyes: denies blurred vision, denies pain Ears, nose, mouth and throat: Denies headache, Denies sore throat Cardiovascular: Denies chest pain, Denies shortness of breath Respiratory: Denies cough Gastrointestinal: Denies abdominal pain, Denies diarrhea, Denies nausea, Denies vomiting Musculoskeletal: Denies myalgias Musculoskeletal: left: as per HPI, foot pain, knee pain, knee stiffness, knee swelling Integumentary: Denies pruritus, Denies rash Neurological: Denies numbness, Denies weakness Psychiatric: Denies anxiety, Denies depression Endocrine: Denies fatigue, Denies weight change Past Medical History Past Medical History: Deep Vein Thrombosis (DVT), GERD/Reflux, Osteoarthritis (OA), Pulmonary Embolus (PE), Seizure Disorder, Syncope Additional Past Medical History / Comment(s): Alcoholism, recent hospitalization for bilateral pulmonary embolism with clot occluding the left pulmonary artery and evidence of right ventricular strain pattern maintained on anticoagulation, COPD, chronic hypoxic respiratory failure, FEV1 of 51% of predicted with chronic hypoxic respiratory failure, chronic smoker carries more than on the PACU smoking history, alcoholism, history of delirium tremens, history of recurrent falls, history of rib fractures related to falls, GERD, diverticulosis, seizure disorder, osteoarthritis, history of small bowel obstruction secondary to incarc erated right inguinal hernia, History of Any Multi-Drug Resistant Organisms: MRSA Date of last positivie culture/infection: 05/13/18 MDRO Source:: KNEE Past Surgical History: Orthopedic Surgery Additional Past Surgical History / Comment(s): Colonoscopies and polypectomies, 10/21/15 normal cardiac cath, multiple inguinal hernia surg., bilateral knee arthroscopies and pt states bilateral knee arthroplasties."had blood clots removed from lungs at [facility], i'not sure what they did". Knee surgery- 7 surgeries on the left knee Past Anesthesia/Blood Transfusion Reactions: No Reported Reaction Smoking Status: Current every day smoker - Past Family History Father Family Medical History: Coronary Artery Disease (CAD), Myocardial Infarction ([place]) Additional Family Medical History / Comment(s): Father of a [place] at the age of 73 yrs. Mother Family Medical History: Cancer Additional Family Medical History / Comment(s): BREAST CA Medications and Allergies Home Medications Medication Instructions Recorded Confirmed Type HYDROcodone/APAP 7.5-325MG [[place] 1 tab PO Q6H PRN 05/06/18 12/12/18 History 7.5-325] Pantoprazole [Protonix] 40 mg PO DAILY 05/06/18 12/12/18 History Rivaroxaban [Xarelto] 20 mg PO DAILY 05/06/18 12/12/18 History Magnesium Oxide [Mag-Ox] 400 mg PO DAILY 07/19/18 12/12/18 History Thiamine HCl [Vitamin B-1] 100 mg PO DAILY 11/23/18 12/12/18 History Folic Acid 1 mg PO DAILY 12/12/18 12/12/18 History Gabapentin [Neurontin] 300 mg PO BID 12/12/18 12/12/18 History Allergies Allergy/AdvReac Type Severity Reaction Status Date / Time tramadol AdvReac Mild Itching Verified 12/12/18 20:42 Physical Exam Vitals: Vital Signs Temp Pulse Pulse Resp BP BP Pulse Ox 12/13/18 09:09 97.5 F L 87 20 113/73 98 12/13/18 06:25 98.2 F 87 18 113/75 100 12/13/18 05:10 92 17 115/87 97 12/13/18 01:45 98 F 90 18 107/71 98 12/12/18 20:24 98.7 F 101 H 18 115/82 93 L Intake and Output 12/12/18 12/13/18 12/13/18 22:59 06:59 14:59 Output Total 175 Balance -175 Output: Urine 175 Other: Voiding Method Urinal # Voids 1 Weight 72.575 kg General: well nourished, well developed, NAD. Vitals reviewed Eyes: PERRL, EOMI, conjunctiva normal HENT: normocephalic, mucus membranes moist Neck: supple, no JVD Lungs: normal respiratory effort, no wheezes or rales CV: Regular rate and rhythm, no murmur. Peripheral pulses 1+ Abdomen: soft, nondistended, no organomegaly Ext: RLE no edema or tenderness. LLE: large knee effusion. Tenderness to light touch distal to knee. Trace edema distal RLE Lymph: no cervical or axillary LAD Skin: warm and dry. Neuro: A&Ox3, anxious Results CBC & Chem 7: 12/12/18 21:25 12/12/18 21:25 Labs: Abnormal Lab Results - Last 24 Hours (Table) 12/12/18 12/12/18 12/12/18 Range/Units 20:40 21:25 21:25 Hgb 9.7 L D (13.0-17.5) gm/dL Hct 37.6 L (39.0-53.0) % MCH 21.6 L (25.0-35.0) pg MCHC 25.8 L (31.0-37.0) g/dL RDW 19.4 H (11.5-15.5) % Plt Count 462 H (150-450) k/uL ESR 17 H (0-15) mm/hr PT (9.0-12.0) sec INR (<1.2) APTT (22.0-30.0) sec Carbon Dioxide 14 L (22-30) mmol/L Glucose 45 L* (74-99) mg/dL POC Glucose (mg/dL) 50 L (75-99) mg/dL ALT 9 L (21-72) U/L Alkaline Phosphatase 179 H (38-126) U/L C-Reactive Protein 66.2 H (<10.0) mg/L Total Protein 8.4 H (6.3-8.2) g/dL 12/12/18 12/13/18 12/13/18 Range/Units 23:03 00:34 01:44 Hgb (13.0-17.5) gm/dL Hct (39.0-53.0) % MCH (25.0-35.0) pg MCHC (31.0-37.0) g/dL RDW (11.5-15.5) % Plt Count (150-450) k/uL ESR (0-15) mm/hr PT 13.9 H (9.0-12.0) sec INR 1.4 H (<1.2) APTT 35.5 H (22.0-30.0) sec Carbon Dioxide (22-30) mmol/L Glucose (74-99) mg/dL POC Glucose (mg/dL) 51 L 110 H (75-99) mg/dL ALT (21-72) U/L Alkaline Phosphatase (38-126) U/L C-Reactive Protein (<10.0) mg/L Total Protein (6.3-8.2) g/dL 12/13/18 12/13/18 12/13/18 Range/Units 05:07 05:09 07:34 Hgb (13.0-17.5) gm/dL Hct (39.0-53.0) % MCH (25.0-35.0) pg MCHC (31.0-37.0) g/dL RDW (11.5-15.5) % Plt Count (150-450) k/uL ESR (0-15) mm/hr PT (9.0-12.0) sec INR (<1.2) APTT (22.0-30.0) sec Carbon Dioxide (22-30) mmol/L Glucose (74-99) mg/dL POC Glucose (mg/dL) 62 L 74 L 71 L (75-99) mg/dL ALT (21-72) U/L Alkaline Phosphatase (38-126) U/L C-Reactive Protein (<10.0) mg/L Total Protein (6.3-8.2) g/dL Microbiology - Last 24 Hours (Table) 12/13/18 02:54 Body Fluid Culture - Preliminary Aspirate Thrombosis Risk Factor Assmnt - Choose All That Apply Each Factor Represents 1 point: Abnormal pulmonary function (COPD), Age 41-60 years, Medical pt on bed rest, Sepsis (< 1month) Other Risk Factors: Yes Each Risk Factor Represents 2 Points: Patient confined to bed Each Risk Factor Represents 3 Points: History of DVT/PE Other congenital or acquired thrombophilia - If yes, enter type in comment: No Thrombosis Risk Factor Assessment Total Risk Factor Score: 9 Thrombosis Risk Factor Assessment Level: High Risk Assessment and Plan (1) Intractable neuropathic pain of knee Current Visit: Yes Status: Acute Code(s): M79.2 - NEURALGIA AND NEURITIS, UN SPECIFIED SNOMED Code(s): 443205655 (2) Status post revision of total replacement of left knee Current Visit: Yes Status: Acute Code(s): Z96.652 - PRESENCE OF LEFT ARTIFICIAL KNEE JOINT SNOMED Code(s): 474907564827577 (3) History of MRSA infection Current Visit: Yes Status: Acute Code(s): Z86.14 - PERSONAL HISTORY OF METHICILLIN RESIS STAPH INFECTION SNOMED Code(s): 448065872 (4) Pain in left knee Current Visit: Yes Status: Acute Code(s): M25.562 - PAIN IN LEFT KNEE SNOMED Code(s): 11573287 (5) 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 Current Visit: No Status: Acute Code(s): Z86.19 - PERSONAL HISTORY OF OTHER INFECTIOUS AND PARASITIC DISEASES; Z98.890 - OTHER SPECIFIED POSTPROCEDURAL STATES SNOMED Code(s): 883307851 (6) Anxiety Current Visit: Yes Status: Acute Code(s): F41.9 - ANXIETY DISORDER, UNSPECIFIED SNOMED Code(s): 03721379 (7) History of pulmonary embolism Current Visit: No Status: Acute Code(s): Z86.711 - PERSONAL HISTORY OF PULMONARY EMBOLISM SNOMED Code(s): 341230004 Plan: 1. Status post L knee TKA. S/p infection and revision. Pt follows with Dr. Traylor. Ortho consulted. No evidence of current infection 2. Intractable knee pain. Tenderness to light touch. Suspect his pain is neuropathic. Gabapentin 100 mg bid. Continue home norco 3. Hx PE. Continue xarelto 4. Anxiety about health. Vistaril tid prn
--- NOTE | 2018-12-13 15:54 | P.CNOR ---
History of Present Illness - HPI Consult date: 12/13/18 History of present illness: This is a 58-year-old male who is admitted for left knee pain. Patient's past medical history is significant for history of GI bleed, COPD, DVT, GERD, pulmonary embolism, seizure disorder, alcoholism and syncope. 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 Patient is a well-known patient to [facility]. Patient states that he came to the emergency room due to continued pain in the left knee along with vomiting. Aspiration of the left knee was performed in the emergency room and this fluid was sent for analysis. Patient denies any fever/chills, numbness, weakness or tingling. Review of Systems See HPI. Past Medical History Past Medical History: Deep Vein Thrombosis (DVT), GERD/Reflux, Osteoarthritis (OA), Pulmonary Embolus (PE), Seizure Disorder, Syncope Additional Past Medical History / Comment(s): Alcoholism, recent hospitalization for bilateral pulmonary embolism with clot occluding the left pulmonary artery and evidence of right ventricular strain pattern maintained on anticoagulation, COPD, chronic hypoxic respiratory failure, FEV1 of 51% of predicted with chronic hypoxic respiratory failure, chronic smoker carries more than on the PACU smoking history, alcoholism, history of delirium tremens, history of recurrent falls, history of rib fractures related to falls, GERD, diverticulosis, seizure disorder, osteoarthritis, history of small bowel obstruction secondary to incarcerated right inguinal hernia, History of Any Multi-Drug Resistant Organisms: MRSA Year Discovered:: 05/13/18 MDRO Source:: KNEE Past Surgical History: Orthopedic Surgery Additional Past Surgical History / Comment(s): Colonoscopies and polypectomies, 10/21/15 normal cardiac cath, multiple inguinal hernia surg., bilateral knee arthroscopies and pt states bilateral knee arthroplasties."had blood clots removed from lungs at [facility], i'not sure what they did". Knee surgery- 7 surgeries on the left knee Past Anesthesia/Blood Transfusion Reactions: No Reported Reaction Smoking Status: Current every day smoker - Past Family History Father Family Medical History: Coronary Artery Disease (CAD), Myocardial Infarction ([place]) Additional Family Medical History / Comment(s): Father of a [place] at the age of 73 yrs. Mother Family Medical History: Cancer Additional Family Medical History / Comment(s): BREAST CA Medications and Allergies Home Medications Medication Instructions Recorded Confirmed Type HYDROcodone/APAP 7.5-325MG [[place] 1 tab PO Q6H PRN 05/06/18 12/12/18 History 7.5-325] Pantoprazole [Protonix] 40 mg PO DAILY 05/06/18 12/12/18 History Rivaroxaban [Xarelto] 20 mg PO DAILY 05/06/18 12/12/18 History Magnesium Oxide [Mag-Ox] 400 mg PO DAILY 07/19/18 12/12/18 History Thiamine HCl [Vitamin B-1] 100 mg PO DAILY 11/23/18 12/12/18 History Folic Acid 1 mg PO DAILY 12/12/18 12/12/18 History Gabapentin [Neurontin] 300 mg PO BID 12/12/18 12/12/18 History Allergies Allergy/AdvReac Type Severity Reaction Status Date / Time tramadol AdvReac Mild Itching Verified 12/12/18 20:42 Physical Examination On exam patient is resting comfortably in bed in no acute distress. There is swelling of the left knee. There is no erythema or ecchymosis. Skin is intact. Patient has limited range of motion of the left knee due to pain and swelling. Calf is soft and nontender to palpation. Sensation intact. Neurovascular status and circulatory status are intact. Results X-rays of the left knee dated 12/12/2018 show antibiotic spacer in good position and alignment. Based on x-ray report there was thought to be a loosening of the femoral component, but this is caused from placement of a temporary antibiotic spacer in the left knee. Aspirate of the left knee is positive for rare gram-positive cocci. Culture is pending. - Labs Labs: Abnormal Lab Results - Last 24 Hours (Table) 12/12/18 12/12/18 12/12/18 Range/Units 20:40 21:25 21:25 Hgb 9.7 L D (13.0-17.5) gm/dL Hct 37.6 L (39.0-53.0) % MCH 21.6 L (25.0-35.0) pg MCHC 25.8 L (31.0-37.0) g/dL RDW 19.4 H (11.5-15.5) % Plt Count 462 H (150-450) k/uL ESR 17 H (0-15) mm/hr PT (9.0-12.0) sec INR (<1.2) APTT (22.0-30.0) sec Carbon Dioxide 14 L (22-30) mmol/L Glucose 45 L* (74-99) mg/dL POC Glucose (mg/dL) 50 L (75-99) mg/dL ALT 9 L (21-72) U/L Alkaline Phosphatase 179 H (38-126) U/L C-Reactive Protein 66.2 H (<10.0) mg/L Total Protein 8.4 H (6.3-8.2) g/dL 12/12/18 12/13/18 12/13/18 Range/Units 23:03 00:34 01:44 Hgb (13.0-17.5) gm/dL Hct (39.0-53.0) % MCH (25.0-35.0) pg MCHC (31.0-37.0) g/dL RDW (11.5-15.5) % Plt Count (150-450) k/uL ESR (0-15) mm/hr PT 13.9 H (9.0-12.0) sec INR 1.4 H (<1.2) APTT 35.5 H (22.0-30.0) sec Carbon Dioxide (22-30) mmol/L Glucose (74-99) mg/dL POC Glucose (mg/dL) 51 L 110 H (75-99) mg/dL ALT (21-72) U/L Alkaline Phosphatase (38-126) U/L C-Reactive Protein (<10.0) mg/L Total Protein (6.3-8.2) g/dL 12/13/18 12/13/18 12/13/18 Range/Units 05:07 05:09 07:34 Hgb (13.0-17.5) gm/dL Hct (39.0-53.0) % MCH (25.0-35.0) pg MCHC (31.0-37.0) g/dL RDW (11.5-15.5) % Plt Count (150-450) k/uL ESR (0-15) mm/hr PT (9.0-12.0) sec INR (<1.2) APTT (22.0-30.0) sec Carbon Dioxide (22-30) mmol/L Glucose (74-99) mg/dL POC Glucose (mg/dL) 62 L 74 L 71 L (75-99) mg/dL ALT (21-72) U/L Alkaline Phosphatase (38-126) U/L C-Reactive Protein (<10.0) mg/L Total Protein (6.3-8.2) g/dL Microbiology - Last 24 Hours (Table) 12/13/18 02:54 Gram Stain - Preliminary Aspirate Body Fluid Culture - Preliminary H & H 12/12/18 Range/Units 21:25 Hgb 9.7 L D (13.0-17.5) gm/dL Hct 37.6 L (39.0-53.0) % Coagulation 12/12/18 Range/Units 23:03 INR 1.4 H (<1.2) Result Diagrams: 12/12/18 21:25 12/12/18 21:25 Assessment and Plan (1) History of MRSA infection Current Visit: Yes Status: Acute Code(s): Z86.14 - PERSONAL HISTORY OF METHICILLIN RESIS STAPH INFECTION SNOMED Code(s): 639082059 (2) Pain in left knee Current Visit: Yes Status: Acute Code(s): M25.562 - PAIN IN LEFT KNEE SNOMED Code(s): 74986040 (3) 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 Current Visit: No Status: Acute Code(s): Z86.19 - PERSONAL HISTORY OF OTHER INFECTIOUS AND PARASITIC DISEASES; Z98.890 - OTHER SPECIFIED POSTPROCEDURAL STATES SNOMED Code(s): 307806255 Plan: 1. Awaiting culture results of left knee aspirate. 2. Appreciate input from infectious disease and internal medicine. 3. Continue pain control. 4. No surgical intervention planned. We will continue to follow the patient closely.
[2018-12-13 16:37] LABS: Glucose,Whole Blood 113 mg/dL (75-99)
[2018-12-13] MEDS: VANCOMYCIN 1,250 MG in SODIUM CHLORIDE 0.9% 250 ML IVPB SCH (17:51)
[2018-12-13] MEDS: MORPHINE SULFATE 4 MG/ML SYRINGE IVP PRN (18:52)
[2018-12-13 18:55] LABS: Glucose,Whole Blood 82 mg/dL (75-99)
[2018-12-13] MEDS: GABAPENTIN 100 MG CAP PO SCH (19:37)
[2018-12-13 21:16] LABS: Glucose,Whole Blood 158 mg/dL (75-99)
--- NOTE | 2018-12-13 23:45 | P.CONS ---
History of Present Illness - Reason for Consult Consult date: 12/13/18 Left knee septic arthritis Requesting physician: Reggie Edward - Chief Complaint Left knee pain swelling 2 days - History of Present Illness Patient is a 58-year-old male with a past medical history significant for left knee septic arthritis with MRSA the patient is status post left knee lumpectomy and placement of antibiotic spacer in April 2018 for the patient has completed as IV antibiotic therapy and is currently off antibiotics for a couple of months now patient is scheduled to have stage II procedure done 12/26/2018, patient is now presenting to [facility] ER with chief complaints of worsening left knee pain and swelling patient been getting worse for the last few days she denies any history of any trauma that he to give a history of falls are not specifically on his left knee, patient described the pain to be probably due to leaking almost 78 out of 10 and no radiation patient has significant swelling of the knee but no significant redness no open wound or any drainage denies having any high-grade fever or chills in the ER patient was noticed to be afebrile his white count has been normal sed rate is only 17 CRP was elevated at 66 x-rays of the knee did shows loosening of femoral component and large knee effusion patient subsequently did have aspirate of the knee effusion which is showing to be mostly RBC with white count of 16,000 blood culture came currently pending empirically started on vancomycin and infectious disease has been consulted for further recommendations regarding antibiotics Review of Systems CONSTITUTIONAL: Positive for weakness. Chills but denies high-grade Fever EYES: No complaint. ENT:No complaint. RESPIRATORY: No complaint. CARDIOVASCULAR: No complaint. GENITOURINARY: No complaint. GASTROINTESTINAL: No complaint. MUSCULOSKELETAL: As per history of present illness. INTEGUMENTARY: As per history of present illness. PSYCHOLOGICAL: No complaint. ENDOCRINE: No complaint. NEUROLOGIC: No complaint. Past Medical History Past Medical History: Deep Vein Thrombosis (DVT), GERD/Reflux, Osteoarthritis (OA), Pulmonary Embolus (PE), Seizure Disorder, Syncope Additional Past Medical History / Comment(s): Alcoholism, recent hospitalization for bilateral pulmonary embolism with clot occluding the left pulmonary artery and evidence of right ventricular strain pattern maintained on anticoagulation, COPD, chronic hypoxic respiratory failure, FEV1 of 51% of predicted with chronic hypoxic respiratory failure, chronic smoker carries more than on the PACU smoking history, alcoholism, history of delirium tremens, history of recurrent falls, history of rib fractures related to falls, GERD, diverticulosis, seizure disorder, osteoarthritis, history of small bowel obstruction secondary to incar cerated right inguinal hernia, History of Any Multi-Drug Resistant Organisms: MRSA Year Discovered:: 05/13/18 MDRO Source:: KNEE Past Surgical History: Orthopedic Surgery Additional Past Surgical History / Comment(s): Colonoscopies and polypectomies, 10/21/15 normal cardiac cath, multiple inguinal hernia surg., bilateral knee arthroscopies and pt states bilateral knee arthroplasties."had blood clots removed from lungs at [facility], i'not sure what they did". Knee surgery- 7 surgeries on the left knee Past Anesthesia/Blood Transfusion Reactions: No Reported Reaction Smoking Status: Current every day smoker - Past Family History Father Family Medical History: Coronary Artery Disease (CAD), Myocardial Infarction ([place]) Additional Family Medical History / Comment(s): Father of a [place] at the age of 73 yrs. Mother Family Medical History: Cancer Additional Family Medical History / Comment(s): BREAST CA Medications and Allergies Home Medications Medication Instructions Recorded Confirmed Type HYDROcodone/APAP 7.5-325MG [[place] 1 tab PO Q6H PRN 05/06/18 12/12/18 History 7.5-325] Pantoprazole [Protonix] 40 mg PO DAILY 05/06/18 12/12/18 History Rivaroxaban [Xarelto] 20 mg PO DAILY 05/06/18 12/12/18 History Magnesium Oxide [Mag-Ox] 400 mg PO DAILY 07/19/18 12/12/18 History Thiamine HCl [Vitamin B-1] 100 mg PO DAILY 11/23/18 12/12/18 History Folic Acid 1 mg PO DAILY 12/12/18 12/12/18 History Gabapentin [Neurontin] 300 mg PO BID 12/12/18 12/12/18 History Allergies Allergy/AdvReac Type Severity Reaction Status Date / Time tramadol AdvReac Mild Itching Verified 12/12/18 20:42 Physical Exam Vitals: Vital Signs Temp Pulse Pulse Resp BP BP Pulse Ox 12/13/18 15:09 97.6 F 81 18 105/71 93 L 12/13/18 13:45 98.7 F 79 20 107/77 98 12/13/18 09:09 97.5 F L 87 20 113/73 98 12/13/18 06:25 98.2 F 87 18 113/75 100 12/13/18 05:10 92 17 115/87 97 12/13/18 01:45 98 F 90 18 107/71 98 12/12/18 20:24 98.7 F 101 H 18 115/82 93 L Intake and Output 12/13/18 12/13/18 12/13/18 06:59 14:59 22:59 Output Total 175 Balance -175 Output: Urine 175 Other: Voiding Method Urinal # Voids 1 GENERAL DESCRIPTION: Middle-aged male lying in bed, no distress. No tachypnea or accessory muscle of respiration use. HEENT: Shows Pallor , no scleral icterus. Oral mucous membrane is dry. No pharyngeal erythema or thrush NECK: Trachea central, no thyromegaly. LUNGS: Unlabored breathing. Clear to auscultation anteriorly. No wheeze or crackle. HEART: S1, S2, regular rate and rhythm. No loud murmur ABDOMEN: Soft, no tenderness , guarding or rigidity, no organomegaly EXTREMITIES: Left he did have significant swelling no significant redness or warmth no open wound or any drainage SKIN: No rash, no masses palpable. NEUROLOGICAL: The patient is awake, alert, oriented x3, mood and affect normal. Results CBC & Chem 7: 12/12/18 21:25 12/12/18 21:25 Labs: Abnormal Lab Results - Last 24 Hours (Table) 12/12/18 12/12/18 12/12/18 Range/Units 20:40 21:25 21:25 Hgb 9.7 L D (13.0-17.5) gm/dL Hct 37.6 L (39.0-53.0) % MCH 21.6 L (25.0-35.0) pg MCHC 25.8 L (31.0-37.0) g/dL RDW 19.4 H (11.5-15.5) % Plt Count 462 H (150-450) k/uL ESR 17 H (0-15) mm/hr PT (9.0-12.0) sec INR (<1.2) APTT (22.0-30.0) sec Carbon Dioxide 14 L (22-30) mmol/L Glucose 45 L* (74-99) mg/dL POC Glucose (mg/dL) 50 L (75-99) mg/dL ALT 9 L (21-72) U/L Alkaline Phosphatase 179 H (38-126) U/L C-Reactive Protein 66.2 H (<10.0) mg/L Total Protein 8.4 H (6.3-8.2) g/dL 12/12/18 12/13/18 12/13/18 Range/Units 23:03 00:34 01:44 Hgb (13.0-17.5) gm/dL Hct (39.0-53.0) % MCH (25.0-35.0) pg MCHC (31.0-37.0) g/dL RDW (11.5-15.5) % Plt Count (150-450) k/uL ESR (0-15) mm/hr PT 13.9 H (9.0-12.0) sec INR 1.4 H (<1.2) APTT 35.5 H (22.0-30.0) sec Carbon Dioxide (22-30) mmol/L Glucose (74-99) mg/dL POC Glucose (mg/dL) 51 L 110 H (75-99) mg/dL ALT (21-72) U/L Alkaline Phosphatase (38-126) U/L C-Reactive Protein (<10.0) mg/L Total Protein (6.3-8.2) g/dL 12/13/18 12/13/18 12/13/18 Range/Units 05:07 05:09 07:34 Hgb (13.0-17.5) gm/dL Hct (39.0-53.0) % MCH (25.0-35.0) pg MCHC (31.0-37.0) g/dL RDW (11.5-15.5) % Plt Count (150-450) k/uL ESR (0-15) mm/hr PT (9.0-12.0) sec INR (<1.2) APTT (22.0-30.0) sec Carbon Dioxide (22-30) mmol/L Glucose (74-99) mg/dL POC Glucose (mg/dL) 62 L 74 L 71 L (75-99) mg/dL ALT (21-72) U/L Alkaline Phosphatase (38-126) U/L C-Reactive Protein (<10.0) mg/L Total Protein (6.3-8.2) g/dL Microbiology - Last 24 Hours (Table) 12/13/18 02:54 Gram Stain - Preliminary Aspirate Body Fluid Culture - Preliminary Assessment and Plan Assessment: 1-patient presented to hospital with significant swelling of his left knee with evidence of large knee effusion on the x-ray and was negative of the prosthesis and this patient currently with no fever or elevated white count sed rate is only 17 with a question of possible hemarthrosis rather than septic arthritis though cannot be entirely excluded with a previous culture positive for MRSA could be the likely pathogen Plan: 1-blood and left knee aspirate fluid cultures will be followed 2--vancomycin pharmacy to dose target trough of 15 while watching her kidney function and Vanco trough closely we will follow on clinical condition and culture to further adjust medication if needed Thank you for this consultation will follow this patient along with you Time with Patient: Greater than 30
[2018-12-14 00:56] LABS: Glucose,Whole Blood 133 mg/dL (75-99)
[2018-12-14] MEDS: DEXTROSE 5%-0.9% NACL 1,000 ML IV SCH ×2 (02:16→11:38)
[2018-12-14] MEDS: MORPHINE SULFATE 4 MG/ML SYRINGE IVP PRN ×3 (03:09→20:14)
[2018-12-14] MEDS ORDERED: HYDROcodone/APAP 7.5-325MG 1 EACH TAB PO ONE (05:45)
[2018-12-14 06:27] LABS: Glucose,Whole Blood 110 mg/dL (75-99)
[2018-12-14] MEDS: VANCOMYCIN 1,250 MG in SODIUM CHLORIDE 0.9% 250 ML IVPB SCH ×2 (07:39→17:39)
[2018-12-14] MEDS: PANTOPRAZOLE 40 MG TABLET PO SCH (07:40)
[2018-12-14] MEDS: MAGNESIUM OXIDE 400 MG TAB PO SCH (07:40)
[2018-12-14] MEDS: THIAMINE 100 MG TAB PO SCH (07:40)
[2018-12-14] MEDS: GABAPENTIN 100 MG CAP PO SCH ×2 (07:40→20:14)
[2018-12-14] MEDS: RIVAROXABAN 20 MG TAB PO SCH (07:40)
[2018-12-14] MEDS: FOLIC ACID 1 MG TAB PO SCH (07:41)
[2018-12-14 08:46] LABS: Glucose,Whole Blood 184 mg/dL (75-99)
--- NOTE | 2018-12-14 09:35 | P.PN ---
Subjective Progress Note Date: 12/14/18 This is a 58-year-old male who is admitted for left knee pain. Patient has a history of MRSA infection of the left knee. Patient reports continued pain in the left knee this morning. Patient denies any new or worsening symptoms. Objective - Vital Signs Vital signs: Vital Signs Temp 98.5 F 12/14/18 04:40 Pulse 87 12/14/18 04:40 Resp 20 12/14/18 04:40 BP 100/67 12/14/18 04:40 Pulse Ox 100 12/14/18 04:40 Intake & Output 12/13/18 12/14/18 12/14/18 18:59 06:59 18:59 Intake Total 700 Output Total 175 Balance -175 700 Intake: Oral 700 Output: Urine 175 Other: Voiding Method Urinal Urinal # Voids 1 1 - Exam On exam patient is resting comfortably in bed in no acute distress. There is moderate swelling of the left knee. There is no erythema or ecchymosis. Calf is soft and nontender to palpation. Sensation intact. Patient has good range of motion of the left foot and ankle. Neurovascular status and circulatory status are intact. - Labs CBC & Chem 7: 12/12/18 21:25 12/12/18 21:25 Labs: Abnormal Lab Results - Last 24 Hours (Table) 12/13/18 12/13/18 12/14/18 Range/Units 16:32 21:12 00:42 POC Glucose (mg/dL) 113 H 158 H 133 H (75-99) mg/dL 12/14/18 12/14/18 Range/Units 06:21 08:33 POC Glucose (mg/dL) 110 H 184 H (75-99) mg/dL Microbiology - Last 24 Hours (Table) 12/13/18 05:26 Blood Culture - Preliminary Blood No Growth after 24 hours 12/13/18 02:54 Gram Stain - Preliminary Aspirate Body Fluid Culture - Preliminary Assessment and Plan (1) History of MRSA infection Current Visit: Yes Status: Acute Code(s): Z86.14 - PERSONAL HISTORY OF METHICILLIN RESIS STAPH INFECTION SNOMED Code(s): 952501593 (2) Pain in left knee Current Visit: Yes Status: Acute Code(s): M25.562 - PAIN IN LEFT KNEE SNOMED Code(s): 49162408 (3) 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 Awaiting culture results of left knee aspirate. 2. Appreciate input from infectious disease and internal medicine. 3. Continue pain control. 4. No surgical intervention planned. We will continue to follow the patient closely.
--- NOTE | 2018-12-14 10:21 | P.PN ---
Subjective Progress Note Date: 12/14/18 Addy Villalpando is a 58 yo M with PMH significant for chronic knee pain s/p postoperative infection, COPD, DVT, GI bleed, PE, alcoholism, seizure disorder who presented to the ED complaining of acutely worsened pain of the L knee which has prevented him from being able to move at all. He states that for the past 17 months since his postoperative infection he has been in chronic severe pain which he rates as 8/10 on average and has been confined mostly to the bed or wheelchair. He states last night it was hurting so bad he had to call EMS. Pt was recently admitted approx 2 weeks ago for the same and at that time discharged with gabapentin for his knee pain. He states he has been taking this medication occasionally and is not sure if it is helping. Pt has been following with Dr. Traylor for the knee and states he has a revision procedure scheduled for approx 2 weeks. In the ED, vitals stable, CBC shows anemia to 10 and plt 400s, XR knee with anterior lucency and large effusion. This am, he complains of severe pain around the knee, exquisite sensitivity to light touch distally, and anxiety related to his pain. 12/14. Pt feels his knee is less tender to touch today but still complains of con stant severe pain. Knee aspirate does show gram positive cocci on preliminary gram stain. Blood culture with no growth. No fevers or chest pain. Objective - Vital Signs Vital signs: Vital Signs Temp 98.5 F 12/14/18 04:40 Pulse 87 12/14/18 04:40 Resp 20 12/14/18 04:40 BP 100/67 12/14/18 04:40 Pulse Ox 100 12/14/18 04:40 Intake & Output 12/13/18 12/14/18 12/14/18 18:59 06:59 18:59 Intake Total 700 240 Output Total 175 Balance -175 700 240 Intake: Oral 700 240 Output: Urine 175 Other: Voiding Method Urinal Urinal # Voids 1 1 - Exam Constitutional: well developed, anxious. Vitals reviewed HENT: mucus membranes moist CV: RRR, no murmur Lungs: clear throughout Ext: L knee with large effusion. Tender to light touch. Distal LLE nontender to light touch. No edema - Labs CBC & Chem 7: 12/12/18 21:25 12/12/18 21:25 Labs: Abnormal Lab Results - Last 24 Hours (Table) 12/13/18 12/13/18 12/14/18 Range/Units 16:32 21:12 00:42 POC Glucose (mg/dL) 113 H 158 H 133 H (75-99) mg/dL 12/14/18 12/14/18 Range/Units 06:21 08:33 POC Glucose (mg/dL) 110 H 184 H (75-99) mg/dL Microbiology - Last 24 Hours (Table) 12/13/18 05:26 Blood Culture - Preliminary Blood No Growth after 24 hours 12/13/18 02:54 Gram Stain - Preliminary Aspirate Body Fluid Culture - Preliminary Assessment and Plan (1) Intractable neuropathic pain of knee Current Visit: Yes Status: Acute Code(s): M79.2 - NEURALGIA AND NEURITIS, UNSPECIFIED SNOMED Code(s): 850075519 (2) Status post revision of total replacement of left knee Current Visit: Yes Status: Acute Code(s): Z96.652 - PRESENCE OF LEFT ARTIFICIAL KNEE JOINT SNOMED Code(s): 235786708805919 (3) History of MRSA infection Current Visit: Yes Status: Acute Code(s): Z86.14 - PERSONAL HISTORY OF METHICILLIN RESIS STAPH INFECTION SNOMED Code(s): 519716045 (4) Pain in left knee Current Visit: Yes Status: Acute Code(s): M25.562 - PAIN IN LEFT KNEE SNOMED Code(s): 57574432 (5) 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 Current Visit: No Status: Acute Code(s): Z86.19 - PERSONAL HISTORY OF OTHER INFECTIOUS AND PARASITIC DISEASES; Z98.890 - OTHER SPECIFIED POSTPROCEDURAL STATES SNOMED Code(s): 412319583 (6) Anxiety Current Visit: Yes Status: Acute Code(s): F41.9 - ANXIETY DISORDER, UNSPECIFIED SNOMED Code(s): 99520042 (7) History of pulmonary embolism Current Visit: No Status: Acute Code(s): Z86.711 - PERSONAL HISTORY OF PULMONARY EMBOLISM SNOMED Code(s): 734403655 (8) Septic arthritis of knee, left Current Visit: No Status: Acute Code(s): M00.9 - PYOGENIC ARTHRITIS, UNSPECIFIED SNOMED Code(s): 122147557 Plan: 1. Intractable knee pain. Tenderness to light touch. WBC 7 on admission. Prelim inary gram stain with gram positive cocci. ID consulted and continuing vancomycin. Pain control with Gabapentin and norco 2. Status post L knee TKA. S/p infection and revision. Pt follows with Dr. Yasir garcia. Ortho consulted 3. Hx PE. Continue xarelto 4. Anxiety about health. Vistaril tid prn
[2018-12-14] MEDS: HYDROcodone/APAP 7.5-325MG 1 EACH TAB PO PRN ×2 (10:36→18:04)
[2018-12-14 10:52] LABS: Glucose,Whole Blood 136 mg/dL (75-99)
[2018-12-14] MEDS: NICOTINE 21MG/24HR PATCH TRANSDERM SCH (12:22)
[2018-12-14 15:38] LABS: African American GFR (CKD) >90 (>60 ml/min/1.73 sqM); Anion Gap 8 mmol/L; Blood Urea Nitrogen 10 mg/dL (9-20); Carbon Dioxide 27 mmol/L (22-30); Chloride 103 mmol/L (98-107); Glucose 106 mg/dL (74-99); Potassium 3.8 mmol/L (3.5-5.1); Sodium 138 mmol/L (137-145)
[2018-12-14 16:04] LABS: Anisocytosis Slight; HCT 27.4 % (39.0-53.0); Hypochromasia Marked; MCH 21.7 pg (25.0-35.0); MCHC 25.8 g/dL (31.0-37.0); MCV 84.1 fL (80.0-100.0); Microcytosis Slight; Platelet Count 381 k/uL (150-450); Poikilocytosis Slight; RBC 3.25 m/uL (4.30-5.90); RDW 19.7 % (11.5-15.5)
--- NOTE | 2018-12-14 16:55 | PN ---
PROGRESS NOTE DATE OF SERVICE: 12/14/2018. REASON FOR FOLLOWUP: Left knee pain and a question of septic arthritis. INTERVAL HISTORY: The patient is currently afebrile. The patient pain to the left leg is currently controlled. Denies having any chest pain or shortness of breath, no cough. No abdominal pain. No diarrhea. PHYSICAL EXAMINATION: Blood pressure is 93/67 with a pulse of 91, temperature 98.3. He is 99% on 3 L nasal cannula. General description is a middle-aged male lying in bed in no distress. Respiratory system: Unlabored breathing. Clear to auscultation anteriorly. Heart S1, S2. Regular rate and rhythm. Abdomen soft, no tenderness. LABS: CRP 66.2, sedimentation rate is 117. The cultures from the left knee area currently pending. DIAGNOSTIC IMPRESSION AND PLAN: Patient admitted to the hospital with left knee pain, swelling with concern for possible hemarthrosis, loosening of prosthesis, septic arthritis, less likely but not entirely excluded. The patient is currently on vancomycin to continue while waiting for the culture to finalize. Continue supportive care. MMODL / IJN: [id number] /
[2018-12-14 16:59] LABS: Basophils # (M) 0.07 k/uL (0-0.2); Eosinophils # (M) 0.21 k/uL (0-0.7); Lymphocytes # (M) 1.75 k/uL (1.0-4.8); Monocytes # (M) 0.91 k/uL (0-1.0); Neutrophils % (M) 58 %; Nucleated Red Blood Cells 0 /100 WBC (0-0); Total Cells Counted 100
[2018-12-14 17:34] LABS: Glucose,Whole Blood 123 mg/dL (75-99)
[2018-12-14] MEDS: hydrOXYzine PAMOATE 25 MG CAP PO PRN (18:23)
[2018-12-14 20:52] LABS: Glucose,Whole Blood 116 mg/dL (75-99)
[2018-12-15] MEDS: HYDROcodone/APAP 7.5-325MG 1 EACH TAB PO PRN ×4 (01:49→23:26)
[2018-12-15] MEDS: hydrOXYzine PAMOATE 25 MG CAP PO PRN ×2 (01:52→17:25)
[2018-12-15] MEDS: DEXTROSE 5%-0.9% NACL 1,000 ML IV SCH ×3 (02:07→17:28)
[2018-12-15] MEDS: MORPHINE SULFATE 4 MG/ML SYRINGE IVP PRN ×3 (04:53→20:17)
[2018-12-15] MEDS ORDERED: VANCOMYCIN TROUGH DUE 1 EACH MISC MISCELLANE ONE (05:00)
[2018-12-15] MEDS: VANCOMYCIN 1,250 MG in SODIUM CHLORIDE 0.9% 250 ML IVPB SCH (06:15)
[2018-12-15 07:22] LABS: Glucose,Whole Blood 105 mg/dL (75-99)
[2018-12-15 07:22] LABS: African American GFR (CKD) >90 (>60 ml/min/1.73 sqM)
[2018-12-15 07:33] LABS: Anisocytosis Slight; Basophils # (A) 0.1 k/uL (0-0.2); Basophils % (A) 1 %; Eosinophils # (A) 0.6 k/uL (0-0.7); Eosinophils % (A) 7 %; HCT 30.3 % (39.0-53.0); HGB 7.8 gm/dL (13.0-17.5); Hypochromasia Marked; Lymphocytes # (A) 2.1 k/uL (1.0-4.8); Lymphocytes % (A) 27 %; MCH 22.8 pg (25.0-35.0); MCHC 25.7 g/dL (31.0-37.0); MCV 88.5 fL (80.0-100.0); Mean Platelet Volume 6.8; Monocytes # (A) 0.7 k/uL (0-1.0); Monocytes % (A) 9 %; Neutrophils # (A) 4.3 k/uL (1.3-7.7); Neutrophils % (A) 54 %; Platelet Count 325 k/uL (150-450); Poikilocytosis Slight; RBC 3.42 m/uL (4.30-5.90); RDW 18.6 % (11.5-15.5); WBC 7.9 k/uL (3.8-10.6)
[2018-12-15] MEDS: FOLIC ACID 1 MG TAB PO SCH (08:08)
[2018-12-15] MEDS: MAGNESIUM OXIDE 400 MG TAB PO SCH (08:08)
[2018-12-15] MEDS: GABAPENTIN 100 MG CAP PO SCH ×2 (08:08→20:17)
[2018-12-15] MEDS: NICOTINE 21MG/24HR PATCH TRANSDERM SCH (08:08)
[2018-12-15] MEDS: RIVAROXABAN 20 MG TAB PO SCH ×2 (08:09→09:25)
[2018-12-15] MEDS: THIAMINE 100 MG TAB PO SCH (08:09)
[2018-12-15] MEDS: PANTOPRAZOLE 40 MG TABLET PO SCH (08:09)
--- NOTE | 2018-12-15 08:58 | P.PN ---
Subjective Progress Note Date: 12/15/18 This is a 58-year-old male who is admitted for left knee pain. Patient has a history of MRSA infection of the left knee. Patient reports continued pain in the left knee this morning. Patient reports that the left knee is itchy. Patient denies any fever/chills, numbness, weakness, tingling, abdominal pain, shortness of breath or chest pain. Objective - Vital Signs Vital signs: Vital Signs Temp 97.8 F 12/15/18 04:40 Pulse 78 12/15/18 04:40 Resp 20 12/15/18 04:40 BP 93/65 12/15/18 04:40 Pulse Ox 100 12/15/18 04:40 Intake & Output 12/14/18 12/15/18 12/15/18 18:59 06:59 18:59 Intake Total 480 700 Balance 480 700 Intake: Oral 480 700 Other: # Voids 2 2 # Bowel Movements 0 - Exam On exam patient is resting comfortably in bed in no acute distress. There is moderate swelling of the left knee. There are mid excoriations over the left knee. There is no erythema or ecchymosis. Calf is soft and nontender to palpation. Sensation intact. Patient has good range of motion of the left foot and ankle. Neurovascular status and circulatory status are intact. - Labs CBC & Chem 7: 12/15/18 06:03 12/15/18 06:03 Labs: Abnormal Lab Results - Last 24 Hours (Table) 12/14/18 12/14/18 12/14/18 Range/Units 10:41 17:21 20:49 RBC (4.30-5.90) m/uL Hgb (13.0-17.5) gm/dL Hct (39.0-53.0) % MCH (25.0-35.0) pg MCHC (31.0-37.0) g/dL RDW (11.5-15.5) % Glucose (74-99) mg/dL POC Glucose (mg/dL) 136 H 123 H 116 H (75-99) mg/dL Calcium (8.4-10.2) mg/dL 12/14/18 12/14/18 12/15/18 Range/Units Unknown Unknown 06:03 RBC 3.25 L 3.42 L (4.30-5.90) m/uL Hgb 7.0 L D 7.8 L (13.0-17.5) gm/dL Hct 27.4 L 30.3 L (39.0-53.0) % MCH 21.7 L 22.8 L (25.0-35.0) pg MCHC 25.8 L 25.7 L (31.0-37.0) g/dL RDW 19.7 H 18.6 H (11.5-15.5) % Glucose 106 H (74-99) mg/dL POC Glucose (mg/dL) (75-99) mg/dL Calcium 8.0 L (8.4-10.2) mg/dL 12/15/18 Range/Units 07:14 RBC (4.30-5.90) m/uL Hgb (13.0-17.5) gm/dL Hct (39.0-53.0) % MCH (25.0-35.0) pg MCHC (31.0-37.0) g/dL RDW (11.5-15.5) % Glucose (74-99) mg/dL POC Glucose (mg/dL) 105 H (75-99) mg/dL Calcium (8.4-10.2) mg/dL Microbiology - Last 24 Hours (Table) 12/13/18 05:26 Blood Culture - Preliminary Blood No Growth after 48 hours Assessment and Plan (1) History of MRSA infection Current Visit: Yes Status: Acute Code(s): Z86.14 - PERSONAL HISTORY OF METHICILLIN RESIS STAPH INFECTION SNOMED Code(s): 105122316 (2) Pain in left knee Current Visit: Yes Status: Acute Code(s): M25.562 - PAIN IN LEFT KNEE SNOMED Code(s): 37684919 (3) 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 Awaiting culture results of left knee aspirate. 2. Appreciate input from infectious disease and internal medicine. 3. Continue pain control. 4. IV antibiotics per infectious disease. Patient had a midline place yesterday. 5. No surgical intervention planned. We will continue to follow the patient closely.
[2018-12-15] MEDS: ONDANSETRON 4 MG/2 ML VIAL IVP PRN (09:25)
[2018-12-15 11:55] LABS: Glucose,Whole Blood 119 mg/dL (75-99)
[2018-12-15 17:24] LABS: Glucose,Whole Blood 95 mg/dL (75-99)
[2018-12-15] MEDS: VANCOMYCIN 1,000 MG in SODIUM CHLORIDE 0.9% 250 ML IVPB SCH (20:16)
[2018-12-15] MEDS: FERROUS SULFATE 325 MG TAB PO SCH (20:17)
[2018-12-15] MEDS: SENNOSIDES-DOCUSATE SODIUM 1 EACH TAB PO SCH (20:17)
[2018-12-15 21:40] LABS: Glucose,Whole Blood 138 mg/dL (75-99)
--- NOTE | 2018-12-15 22:00 | P.PN ---
Subjective Progress Note Date: 12/15/18 Addy Villalpando is a 58 yo M with PMH significant for chronic knee pain s/p postoperative infection, COPD, DVT, GI bleed, PE, alcoholism, seizure disorder who presented to the ED complaining of acutely worsened pain of the L knee which has prevented him from being able to move at all. He states that for the past 17 months since his postoperative infection he has been in chronic severe pain which he rates as 8/10 on average and has been confined mostly to the bed or wheelchair. He states last night it was hurting so bad he had to call EMS. Pt was recently admitted approx 2 weeks ago for the same and at that time discharged with gabapentin for his knee pain. He states he has been taking this medication occasionally and is not sure if it is helping. Pt has been following with Dr. Traylor for the knee and states he has a revision procedure scheduled for approx 2 weeks. In the ED, vitals stable, CBC shows anemia to 10 and plt 400s, XR knee with anterior lucency and large effusion. This am, he complains of severe pain around the knee, exquisite sensitivity to light touch distally, and anxiety related to his pain. 12/14. Pt feels his knee is less tender to touch today but still complains of con stant severe pain. Knee aspirate does show gram positive cocci on preliminary gram stain. Blood culture with no growth. No fevers or chest pain. 12/15. Pt continuing to complain of severe pain in the L knee. He is wondering whether he will need a PICC and extended course of abx. Was able to ambulate with walker. Denies chest pain, fevers, sob. Objective - Vital Signs Vital signs: Vital Signs Temp 97.8 F 12/15/18 13:00 Pulse 86 12/15/18 13:00 Resp 16 12/15/18 13:00 BP 94/66 12/15/18 13:00 Pulse Ox 100 12/15/18 13:00 Intake & Output 12/15/18 12/15/18 12/16/18 06:59 18:59 06:59 Intake Total 700 400 Output Total 500 Balance 700 -100 Intake: Oral 700 400 Output: Urine 500 Other: # Voids 2 - Exam Constitutional: well developed, anxious. Vitals reviewed HENT: mucus membranes moist CV: RRR, no murmur Lungs: clear throughout Ext: L knee with large effusion. Tender to light touch. Distal LLE nontender to light touch. No edema - Labs CBC & Chem 7: 12/15/18 06:03 12/15/18 06:03 Labs: Abnormal Lab Results - Last 24 Hours (Table) 12/15/18 12/15/18 12/15/18 Range/Units 06:03 07:14 11:49 RBC 3.42 L (4.30-5.90) m/uL Hgb 7.8 L (13.0-17.5) gm/dL Hct 30.3 L (39.0-53.0) % MCH 22.8 L (25.0-35.0) pg MCHC 25.7 L (31.0-37.0) g/dL RDW 18.6 H (11.5-15.5) % POC Glucose (mg/dL) 105 H 119 H (75-99) mg/dL 12/15/18 Range/Units 21:35 RBC (4.30-5.90) m/uL Hgb (13.0-17.5) gm/dL Hct (39.0-53.0) % MCH (25.0-35.0) pg MCHC (31.0-37.0) g/dL RDW (11.5-15.5) % POC Glucose (mg/dL) 138 H (75-99) mg/dL Microbiology - Last 24 Hours (Table) 12/13/18 02:54 Gram Stain - Preliminary Aspirate Body Fluid Culture - Preliminary Presumptive MRSA 12/13/18 05:26 Blood Culture - Preliminary Blood No Growth after 48 hours Assessment and Plan (1) Intractable neuropathic pain of knee Current Visit: Yes Status: Acute Code(s): M79.2 - NEURALGIA AND NEURITIS, UNSPECIFIED SNOMED Code(s): 942432192 (2) Status post revision of total replacement of left knee Current Visit: Yes Status: Acute Code(s): Z96.652 - PRESENCE OF LEFT ARTIFICIAL KNEE JOINT SNOMED Code(s): 156072751365288 (3) History of MRSA infection Current Visit: Yes Status: Acute Code(s): Z86.14 - PERSONAL HISTORY OF METHICILLIN RESIS STAPH INFECTION SNOMED Code(s): 863137973 (4) Pain in left knee Current Visit: Yes Status: Acute Code(s): M25.562 - PAIN IN LEFT KNEE SNOMED Code(s): 79825814 (5) 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 Current Visit: No Status: Acute Code(s): Z86.19 - PERSONAL HISTORY OF OTHER INFECTIOUS AND PARASITIC DISEASES; Z98.890 - OTHER SPECIFIED POSTPROCEDURAL STATES SNOMED Code(s): 832013074 (6) Anxiety Current Visit: Yes Status: Acute Code(s): F41.9 - ANXIETY DISORDER, UNSPECIFIED SNOMED Code(s): 56926471 (7) History of pulmonary embolism Current Visit: No Status: Acute Code(s): Z86.711 - PERSONAL HISTORY OF PULMONARY EMBOLISM SNOMED Code(s): 634923458 (8) Septic arthritis of knee, left Current Visit: No Status: Acute Code(s): M00.9 - PYOGENIC ARTHRITIS, UNSPECIFIED SNOMED Code(s): 618666525 Plan: 1. Intractable knee pain. Rule out septic arthritis. Preliminary gram stain with gram pos cocci. ID consulted and continuing vancomycin. Pain control with Gabapentin and norco. 2. Status post L knee TKA. S/p infection and revision. Pt follows with Dr. Traylor. Ortho following 3. Hx PE. Continue xarelto. Hold before PICC 4. Anxiety about health. Vistaril tid prn
[2018-12-16] MEDS: hydrOXYzine PAMOATE 25 MG CAP PO PRN ×2 (01:28→14:44)
[2018-12-16] MEDS: DEXTROSE 5%-0.9% NACL 1,000 ML IV SCH ×2 (04:17→13:46)
[2018-12-16] MEDS: HYDROcodone/APAP 7.5-325MG 1 EACH TAB PO PRN ×4 (05:31→23:42)
[2018-12-16 07:25] LABS: Glucose,Whole Blood 113 mg/dL (75-99)
[2018-12-16] MEDS: MAGNESIUM OXIDE 400 MG TAB PO SCH (07:48)
[2018-12-16] MEDS: THIAMINE 100 MG TAB PO SCH (07:48)
[2018-12-16] MEDS: NICOTINE 21MG/24HR PATCH TRANSDERM SCH (07:48)
[2018-12-16] MEDS: FOLIC ACID 1 MG TAB PO SCH (07:48)
[2018-12-16] MEDS: GABAPENTIN 100 MG CAP PO SCH ×2 (07:48→20:52)
[2018-12-16] MEDS: SENNOSIDES-DOCUSATE SODIUM 1 EACH TAB PO SCH ×2 (07:48→20:51)
[2018-12-16] MEDS: PANTOPRAZOLE 40 MG TABLET PO SCH (07:49)
[2018-12-16] MEDS: FERROUS SULFATE 325 MG TAB PO SCH (07:49)
[2018-12-16] MEDS: VANCOMYCIN 1,000 MG in SODIUM CHLORIDE 0.9% 250 ML IVPB SCH ×2 (07:49→20:57)
[2018-12-16] MEDS: MORPHINE SULFATE 4 MG/ML SYRINGE IVP PRN ×2 (07:50→16:30)
--- NOTE | 2018-12-16 10:05 | P.PN ---
Subjective Progress Note Date: 12/16/18 This is a 58-year-old male who is admitted for left knee pain. Patient has a history of MRSA infection of the left knee. Patient reports continued pain in the left knee this morning. Patient is going for placement of a PICC line today. Cultures show presumptive MRSA. Patient denies any fever/chills, numbness, weakness, tingling, abdominal pain, shortness of breath or chest pain. Objective - Vital Signs Vital signs: Vital Signs Temp 98.3 F 12/16/18 07:32 Pulse 94 12/16/18 07:32 Resp 16 12/16/18 07:32 BP 88/68 12/16/18 07:32 Pulse Ox 94 L 12/16/18 07:32 Intake & Output 12/15/18 12/16/18 12/16/18 18:59 06:59 18:59 Intake Total 400 Output Total 500 825 Balance -100 -825 Intake: Oral 400 Output: Urine 500 825 Other: # Voids 1 - Exam On exam patient is resting comfortably in bed in no acute distress. There is moderate swelling of the left knee. There is no erythema or ecchymosis. Calf is soft and nontender to palpation. Sensation intact. Patient has good range of motion of the left foot and ankle. Neurovascular status and circulatory status are intact. - Labs CBC & Chem 7: 12/15/18 06:03 12/15/18 06:03 Labs: Abnormal Lab Results - Last 24 Hours (Table) 12/15/18 12/15/18 12/16/18 Range/Units 11:49 21:35 07:15 POC Glucose (mg/dL) 119 H 138 H 113 H (75-99) mg/dL Microbiology - Last 24 Hours (Table) 12/13/18 02:54 Gram Stain - Final Aspirate Body Fluid Culture - Final Methicillin resist S. 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 Cultures show presumptive MRSA. Patient is going for PICC line placement today. 2. Appreciate input from infectious disease and internal medicine. 3. Continue pain control. 4. IV antibiotics per infectious disease. 5. No surgical intervention planned. We will continue to follow the patient closely.
--- NOTE | 2018-12-16 10:57 | P.PN ---
Subjective Progress Note Date: 12/16/18 Addy Villalpando is a 58 yo M with PMH significant for chronic knee pain s/p postoperative infection, COPD, DVT, GI bleed, PE, alcoholism, seizure disorder who presented to the ED complaining of acutely worsened pain of the L knee which has prevented him from being able to move at all. He states that for the past 17 months since his postoperative infection he has been in chronic severe pain which he rates as 8/10 on average and has been confined mostly to the bed or wheelchair. He states last night it was hurting so bad he had to call EMS. Pt was recently admitted approx 2 weeks ago for the same and at that time discharged with gabapentin for his knee pain. He states he has been taking this medication occasionally and is not sure if it is helping. Pt has been following with Dr. Traylor for the knee and states he has a revision procedure scheduled for approx 2 weeks. In the ED, vitals stable, CBC shows anemia to 10 and plt 400s, XR knee with anterior lucency and large effusion. This am, he complains of severe pain around the knee, exquisite sensitivity to light touch distally, and anxiety related to his pain. 12/14. Pt feels his knee is less tender to touch today but still complains of con stant severe pain. Knee aspirate does show gram positive cocci on preliminary gram stain. Blood culture with no growth. No fevers or chest pain. 12/15. Pt continuing to complain of severe pain in the L knee. He is wondering whether he will need a PICC and extended course of abx. Was able to ambulate with walker. Denies chest pain, fevers, sob. 12/16. Pain is better today but still severe. He has continued to ambulate. Denies chest pain, fevers, sob. Culture does indicate MRSA arthritis. PICC for placement today. Objective - Vital Signs Vital signs: Vital Signs Temp 98.3 F 12/16/18 07:32 Pulse 94 12/16/18 07:32 Resp 16 12/16/18 07:32 BP 88/68 12/16/18 07:32 Pulse Ox 94 L 12/16/18 07:32 Intake & Output 12/15/18 12/16/18 12/16/18 18:59 06:59 18:59 Intake Total 400 Output Total 500 825 Balance -100 -825 Intake: Oral 400 Output: Urine 500 825 Other: # Voids 1 - Exam Constitutional: well developed, anxious. Vitals reviewed HENT: mucus membranes moist CV: RRR, no murmur Lungs: clear throughout Ext: L knee with large effusion. Tender to light touch. Distal LLE nontender to light touch. No edema - Labs CBC & Chem 7: 12/15/18 06:03 12/15/18 06:03 Labs: Abnormal Lab Results - Last 24 Hours (Table) 12/15/18 12/15/18 12/16/18 Range/Units 11:49 21:35 07:15 POC Glucose (mg/dL) 119 H 138 H 113 H (75-99) mg/dL Microbiology - Last 24 Hours (Table) 12/13/18 02:54 Gram Stain - Final Aspirate Body Fluid Culture - Final Methicillin resist S. aureus 12/13/18 05:26 Blood Culture - Preliminary Blood No Growth after 72 hours Assessment and Plan (1) Intractable neuropathic pain of knee Current Visit: Yes Status: Acute Code(s): M79.2 - NEURALGIA AND NEURITIS, UNSPECIFIED SNOMED Code(s): 451100716 (2) Status post revision of total replacement of left knee Current Visit: Yes Status: Acute Code(s): Z96.652 - PRESENCE OF LEFT ARTIFICIAL KNEE JOINT SNOMED Code(s): 247465572378733 (3) History of MRSA infection Current Visit: Yes Status: Acute Code(s): Z86.14 - PERSONAL HISTORY OF METHICILLIN RESIS STAPH INFECTION SNOMED Code(s): 848883286 (4) Pain in left knee Current Visit: Yes Status: Acute Code(s): M25.562 - PAIN IN LEFT KNEE SNOMED Code(s): 66824805 (5) 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 Current Visit: No Status: Acute Code(s): Z86.19 - PERSONAL HISTORY OF OTHER INFECTIOUS AND PARASITIC DISEASES; Z98.890 - OTHER SPECIFIED POSTPROCEDURAL STAT ES SNOMED Code(s): 632638469 (6) Anxiety Current Visit: Yes Status: Acute Code(s): F41.9 - ANXIETY DISORDER, UNSPECIFIED SNOMED Code(s): 65408439 (7) History of pulmonary embolism Current Visit: No Status: Acute Code(s): Z86.711 - PERSONAL HISTORY OF P ULMONARY EMBOLISM SNOMED Code(s): 414963390 (8) Septic arthritis of knee, left Current Visit: No Status: Acute Code(s): M00.9 - PYOGENIC ARTHRITIS, UNSPECIFIED SNOMED Code(s): 580254525 Plan: 1. Septic arthritis of L knee. Aspirate with MRSA. ID consulted and continuing vancomycin. Place PICC today. Pain control with Gabapentin and norco. 2. Status post L knee TKA. S/p infection and revision. Pt follows with Dr. Jaziel carreon. Ortho following 3. Hx PE. Continue xarelto. Hold before PICC, resume tomorrow 4. Anxiety about health. Vistaril tid prn
[2018-12-16] MEDS ORDERED: LIDOCAINE 1% INJ 10MG/ML (20 ML MDV) ONE (11:17)
[2018-12-16] MEDS ORDERED: LIDOCAINE 1% INJ 10MG/ML (20 ML MDV) SQ ONE (11:41)
[2018-12-16 12:04] LABS: Glucose,Whole Blood 103 mg/dL (75-99)
[2018-12-16 12:32] LABS: Anisocytosis Moderate; Basophils % (A) 1 %; Eosinophils # (A) 0.5 k/uL (0-0.7); Eosinophils % (A) 7 %; HCT 26.2 % (39.0-53.0); Hypochromasia Marked; Lymphocytes # (A) 1.4 k/uL (1.0-4.8); Lymphocytes % (A) 22 %; MCH 21.9 pg (25.0-35.0); MCHC 26.5 g/dL (31.0-37.0); Mean Platelet Volume 6.9; Microcytosis Slight; Monocytes # (A) 0.5 k/uL (0-1.0); Monocytes % (A) 8 %; Neutrophils # (A) 3.6 k/uL (1.3-7.7); Neutrophils % (A) 57 %; Platelet Count 257 k/uL (150-450); Poikilocytosis Slight; RBC 3.18 m/uL (4.30-5.90); RDW 20.1 % (11.5-15.5); WBC 6.3 k/uL (3.8-10.6)
[2018-12-16 12:35] LABS: African American GFR (CKD) >90 (>60 ml/min/1.73 sqM)
[2018-12-16 12:47] LABS: MCV 82.4 fL (80.0-100.0)
--- NOTE | 2018-12-16 13:23 | CDI ---
Documentation Clarification Form Date: 12/16/2018 From: Martha Weaver RN CCDS Admit Date: 12/13/2018 2:20:00 PM Patient Name: Addy Villalpando Visit Number: [id number] Discharge Date: ATTENTION: The Clinical Documentation Specialists (CDI) and [facility] Coding Staff appreciate your assistance in clarifying documentation. Please respond to the clarification below the line at the bottom and electronically sign. The CDI & [facility] Coding staff will review the response and follow-up if needed. Please note: Queries are made part of the Legal Health Record. If you have any questions, please contact the author of this message via ITS. Dr. Reggie Edward The patient presented to the ED with worsening pain and swelling of the left knee which has prevented him from being able to move. 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 Medical history of removal of joint prosthesis of left knee due to infection . Clinical Indicators: Lab findings: Gram Stain MRSA Radiology findings: knee xray lucency along the anterior aspect of the femoral component of the prosthesis may be related to loosening. Large knee effusion. Vital Signs: 115/82 101 98.7 18 93% ra Other Clinical Indicators: Treatment: Vancomcyin ivpb , Picc LIne Consults: Infectious Disease; Orthopedic surgery In your professional opinion, can you please clarify if the infection is ? o Left knee MRSA infection due to Prosthesis? o Left knee MRSA infection due to ? o Other, please specify o Unable to determine (Last Revision: August 2017) L knee MRSA infection due to prosthesis MTDD
--- NOTE | 2018-12-16 13:45 | IR ---
EXAMINATION TYPE: IR cvc insert >=5 years DATE OF EXAM: 12/16/2018 COMPARISON: NONE CLINICAL HISTORY: Infection Needs long-term intravenous access for antibiotics. PROCEDURE: After informed consent, the skin overlying the left brachial vein was localized with ultrasound and n oted to be compressible and patent. An ultrasound image was obtained and submitted on the patient's chart. The overlying skin was prepped and draped and Lidocaine was used for local anesthesia. A ski n mohan was made with a scalpel. Access was gained to the vein under ultrasound guidance with a 21 ga uge needle and a 0.018 inch wire was advanced. Access site was dilated with Peel-Away sheath and cat heter tailored to the appropriate length and advanced such that the distal tip is at the cavoatrial j unction. Spot image was obtained verifying placement. Catheter was fixed to the skin and a sterile dressing was placed following hemostasis. Catheter was aspirated and flushed with saline. Patient w as discharged in stable condition without complication. Maximal barrier technique is utilized. Ultra sound image is documented on the chart. Ultrasound used with sterile technique. Fluoro time and fluoroscopic images submitted to document procedure: 0.3 minutes fluoroscopy time, 32 intraoperative images document the procedure IMPRESSION: STATUS POST ULTRASOUND AND FLUOROSCOPIC GUIDED PICC LINE PLACEMENT, READY FOR USE. THIS PROCEDURE WAS PERFORMED BY THE UNDERSIGNED.
--- NOTE | 2018-12-16 14:00 | PN ---
PROGRESS NOTE DATE OF SERVICE: 12/13/2018 REASON FOR FOLLOWUP: Left knee septic arthritis. INTERVAL HISTORY: The patient is currently afebrile. Patient currently breathing comfortably. Denies having any chest pain or any cough. No abdominal pain or worsening pain to the left knee area. PHYSICAL EXAMINATION: Blood pressure is 88/68 with a pulse of 94, temperature 98.3, 94% 3 L nasal cannula. General description is a middle-aged male, lying in bed in no distress. RESPIRATORY SYSTEM: Unlabored breathing, clear to auscultation anteriorly. HEART: S1, S2. Regular rate and rhythm. ABDOMEN: Soft, no tenderness. Left knee with swelling. No significant, slightly warm to touch. LABS: Hemoglobin 7, white count of 6.3. The left knee aspirate culture positive for MRSA. Blood culture has been negative. DIAGNOSTIC IMPRESSION AND PLAN: Patient with MRSA left knee has been going on for a few months now with loosened and infected spacer. The patient did have surgical debridement and removal of the spacer and placement of new spacer for which the patient to be transferred to tertiary [facility] per Orthopedics. Care was discussed with the admitting physician who is working on a transfer. Vancomycin to continue. The patient will be evaluated by ID Service at [facility]. Continue supportive care. MMODL / IJN: [id number] /
[2018-12-16 17:25] LABS: Glucose,Whole Blood 105 mg/dL (75-99)
[2018-12-16 22:07] LABS: Glucose,Whole Blood 120 mg/dL (75-99)
[2018-12-17] MEDS: MORPHINE SULFATE 4 MG/ML SYRINGE IVP PRN ×3 (00:26→15:58)
[2018-12-17] MEDS: DEXTROSE 5%-0.9% NACL 1,000 ML IV SCH ×3 (02:37→22:56)
[2018-12-17] MEDS: HYDROcodone/APAP 7.5-325MG 1 EACH TAB PO PRN ×4 (06:11→21:54)
[2018-12-17 07:02] LABS: Glucose,Whole Blood 102 mg/dL (75-99)
[2018-12-17] MEDS: GABAPENTIN 100 MG CAP PO SCH ×2 (07:05→20:59)
[2018-12-17] MEDS: FOLIC ACID 1 MG TAB PO SCH (07:05)
[2018-12-17] MEDS: THIAMINE 100 MG TAB PO SCH (07:06)
[2018-12-17] MEDS: SENNOSIDES-DOCUSATE SODIUM 1 EACH TAB PO SCH ×2 (07:06→21:01)
[2018-12-17] MEDS: RIVAROXABAN 20 MG TAB PO SCH (07:06)
[2018-12-17] MEDS: VANCOMYCIN 1,000 MG in SODIUM CHLORIDE 0.9% 250 ML IVPB SCH ×2 (07:06→22:01)
[2018-12-17] MEDS: NICOTINE 21MG/24HR PATCH TRANSDERM SCH (07:06)
[2018-12-17] MEDS: PANTOPRAZOLE 40 MG TABLET PO SCH (07:06)
[2018-12-17] MEDS: FERROUS SULFATE 325 MG TAB PO SCH (07:06)
[2018-12-17] MEDS: MAGNESIUM OXIDE 400 MG TAB PO SCH (07:06)
--- NOTE | 2018-12-17 08:30 | P.PN ---
Subjective Progress Note Date: 12/17/18 This is a 58-year-old male who is admitted for left knee pain. Patient denies any new symptoms or complaints today. Patient denies any fever/chills, numbness, weakness, tingling, abdominal pain, shortness of breath or chest pain. Objective - Vital Signs Vital signs: Vital Signs Temp 98.0 F 12/17/18 04:49 Pulse 91 12/17/18 04:49 Resp 16 12/17/18 04:49 BP 103/75 12/17/18 04:49 Pulse Ox 93 L 12/17/18 04:49 Intake & Output 12/16/18 12/17/18 12/17/18 18:59 06:59 18:59 Intake Total 250 Balance 250 Intake: IV 250 Vancomycin 1,000 mg In 250 Sodium Chloride 0.9% 250 ml @ 125 mls/hr IVPB Q12HR ALVA Rx#:[id number] Other: Voiding Method Urinal Urinal # Voids 1 # Bowel Movements 1 - Exam On exam patient is resting comfortably in bed in no acute distress. There is moderate swelling of the left knee. There is no erythema or ecchymosis. Calf is soft and nontender to palpation. Sensation intact. Patient has good range of motion of the left foot and ankle. Neurovascular status and circulatory status are intact. - Labs CBC & Chem 7: 12/16/18 12:10 12/16/18 12:10 Labs: Abnormal Lab Results - Last 24 Hours (Table) 12/16/18 12/16/18 12/16/18 Range/Units 11:59 12:10 17:24 RBC 3.18 L (4.30-5.90) m/uL Hgb 7.0 L (13.0-17.5) gm/dL Hct 26.2 L (39.0-53.0) % MCH 21.9 L (25.0-35.0) pg MCHC 26.5 L (31.0-37.0) g/dL RDW 20.1 H (11.5-15.5) % POC Glucose (mg/dL) 103 H 105 H (75-99) mg/dL 12/16/18 12/17/18 Range/Units 22:05 06:56 RBC (4.30-5.90) m/uL Hgb (13.0-17.5) gm/dL Hct (39.0-53.0) % MCH (25.0-35.0) pg MCHC (31.0-37.0) g/dL RDW (11.5-15.5) % POC Glucose (mg/dL) 120 H 102 H (75-99) mg/dL Microbiology - Last 24 Hours (Table) 12/13/18 05:26 Blood Culture - Preliminary Blood No Growth after 96 hours 12/13/18 02:54 Gram Stain - Final Aspirate Body Fluid Culture - Final Methicillin resist S. aureus Assessment and Plan (1) History of MRSA infection Current Visit: Yes Status: Acute Code(s): Z86.14 - PERSONAL HISTORY OF METHICILLIN RESIS STAPH INFECTION SNOMED Code(s): 452255023 (2) Pain in left knee Current Visit: Yes Status: Acute Code(s): M25.562 - PAIN IN LEFT KNEE SNOMED Code(s): 48465379 (3) 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 Current Visit: No Status: Acute Code(s): Z86.19 - PERSONAL HISTORY OF OTHER INFECTIOUS AND PARASITIC DISEASES; Z98.890 - OTHER SPECIFIED POSTPROCEDURAL STATES SNOMED Code(s): 324731662 Plan: 1. Cultures are positive for MRSA. Patient had a PICC line placed yesterday. 2. Continue pain control. 3. IV antibiotics per infectious disease. 4. Patient is scheduled for discharge to [facility]. Case discussed with orthopedics at [facility] and patient will follow up with them as an outpatient next week for further surgical management.
[2018-12-17 11:08] LABS: African American GFR (CKD) >90 (>60 ml/min/1.73 sqM)
[2018-12-17 11:46] LABS: Anisocytosis Moderate; Basophils # (A) 0.1 k/uL (0-0.2); Basophils % (A) 1 %; Eosinophils # (A) 0.6 k/uL (0-0.7); Eosinophils % (A) 8 %; HCT 25.1 % (39.0-53.0); Hypochromasia Marked; Lymphocytes # (A) 1.8 k/uL (1.0-4.8); Lymphocytes % (A) 22 %; MCH 22.8 pg (25.0-35.0); MCHC 26.3 g/dL (31.0-37.0); MCV 86.8 fL (80.0-100.0); Mean Platelet Volume 6.9; Monocytes # (A) 0.7 k/uL (0-1.0); Monocytes % (A) 9 %; Neutrophils # (A) 4.5 k/uL (1.3-7.7); Neutrophils % (A) 57 %; Platelet Count 217 k/uL (150-450); Poikilocytosis Slight; RDW 20.1 % (11.5-15.5); WBC 7.9 k/uL (3.8-10.6)
[2018-12-17 11:52] LABS: HGB 6.6 gm/dL (13.0-17.5)
[2018-12-17 12:06] LABS: Glucose,Whole Blood 106 mg/dL (75-99)
[2018-12-17 17:07] LABS: Glucose,Whole Blood 117 mg/dL (75-99)
[2018-12-17] MEDS ORDERED: VANCOMYCIN TROUGH DUE 1 EACH MISC MISCELLANE ONE (20:00)
[2018-12-17 20:36] LABS: Glucose,Whole Blood 96 mg/dL (75-99)
[2018-12-17] MEDS: hydrOXYzine PAMOATE 25 MG CAP PO PRN (21:08)
--- NOTE | 2018-12-17 21:13 | PN ---
PROGRESS NOTE DATE OF SERVICE: 12/17/2018 I am covering for Dr. Edward. HISTORY OF PRESENT ILLNESS: This 58-year-old gentleman who presented with multiple medical problems including intractable neuropathic pain and revision of the left total knee has features of MRSA. The patient did have surgical debridement and surgical removal of pacer and placement of a new pacer apparently. The patient was also being planned to be transferred to [facility]. According to Dr. Edward, they recommended outpatient evaluation. The patient also had some weakness and the patient has also had a PICC line placement and IV antibiotic treatment. The possibility of ECF rehab also being considered at this time but apparently the patient does not have ECF days at this time. The multiple consultants including Infectious Disease and following the patient closely. PAST MEDICAL HISTORY: Reviewed. REVIEW OF SYSTEMS: CARDIOVASCULAR SYSTEM: No angina or palpitations. RESPIRATORY: As mentioned earlier. GI no nausea or vomiting. : As mentioned earlier. CENTRAL NERVOUS SYSTEM: No numbness or weakness. CURRENT MEDICATIONS ARE: Reviewed and include: 1. [place] 7.5 q.6h p.r.n. 2. Iron sulfate 320 mg. 3. Folic acid 1 mg daily. 4. Neurontin 100 mg b.i.d. 5. Restoril 25 mg q.h.s. 6. Magnesium oxide 400 mg. 7. Vancomycin. 8. Morphine sulfate q.8h p.r.n. 9. Narcan p.r.n. 10.Habitrol 21. 11.Zofran 4 mg q.4 p.r.n. 12.Protonix 40 mg. 13.Xarelto 20 mg p.o. daily. 14.Senokot-S 2 tablets p.o. b.i.d. 15.Vitamin B1, 100 mg daily. 16.Vancomycin. PHYSICAL EXAM: The patient is alert and oriented x3. Pulse 84. Blood pressure 91/60, respiration 16, temperature 98.4, pulse ox 94% on room air. HEENT: Conjunctivae normal. Oral mucosa moist. NECK is no jugular venous distention. No carotid bruit. No lymph node enlargement. Cardiovascular system: S1, S2 muffled. RESPIRATORY: Breath sounds diminished in the bases. A few scattered rhonchi and crackles. ABDOMEN: Soft, nontender. No mass palpable. LEGS: Status post left knee infection present. NERVOUS SYSTEM: Higher functions as mentioned earlier. Moves all four limbs. No focal motor or sensory deficits. Lymphatics: No lymph nodes palpable in the neck, axillae or groin. SKIN: No ulcer, rash or bleeding. JOINTS: No active deforming arthropathy. LABS: At this time shows WBC 7.8, hemoglobin 6.6. The patient's hemoglobin dropped to 6.6 today. ASSESSMENT: 1. Left knee infection with MRSA, status post antibiotic spacer removal and reinsertion. 2. Anemia, etiology uncertain, rule out blood loss anemia. 3. Intractable neuropathic pain of the left knee. 4. Gait dysfunction. 5. History of deep vein thrombosis. 6. History of pulmonary embolus. 7. History of seizure disorder. 8. History of syncope. 9. History of degenerative joint disease. 10.History of gastroesophageal reflux disease. 11.History of alcoholism. 12.History of bilateral pulmonary embolism. 13.History of nicotine dependence. 14.History of delirium tremens. 15.History of recurrent falls. 16.History of anxiety, depression. 17.History of continued ongoing nicotine dependence. 18.FULL CODE. RECOMMENDATIONS AND DISCUSSION: In this 58-year-old gentleman who was admitted with multiple complex medical issues, at this time, I recommend continue the antibiotics. Continue the symptomatic treatment. Patient is on IV vancomycin. PICC line has been inserted. Infectious Disease following the patient closely. I would recommend continue with current medications and also continue with DVT prophylaxis. The patient is also on Xarelto 20 mg daily. Pain medications. Smoking cessation recommendation. Otherwise as mentioned earlier, the patient apparently does not have any rehab days at this time. The possibility of IV antibiotics with infusion center with arrange transport is a possibility if by Infectious Disease. Otherwise, apparently the [facility] team would like the patient as an outpatient. We will continue to monitor involving Case Management and health and social care teacher and Dr. Edward will follow on Wednesday. See orders for the details. MMODL / IJN: [id number] /
[2018-12-18] MEDS: MORPHINE SULFATE 4 MG/ML SYRINGE IVP PRN ×3 (00:26→17:16)
[2018-12-18] MEDS: DEXTROSE 5%-0.9% NACL 1,000 ML IV SCH (05:35)
[2018-12-18 07:04] LABS: Glucose,Whole Blood 104 mg/dL (75-99)
[2018-12-18] MEDS: HYDROcodone/APAP 7.5-325MG 1 EACH TAB PO PRN ×3 (07:38→20:04)
[2018-12-18] MEDS: GABAPENTIN 100 MG CAP PO SCH ×2 (07:38→20:04)
[2018-12-18] MEDS: THIAMINE 100 MG TAB PO SCH (07:39)
[2018-12-18] MEDS: SENNOSIDES-DOCUSATE SODIUM 1 EACH TAB PO SCH ×2 (07:39→20:04)
[2018-12-18] MEDS: MAGNESIUM OXIDE 400 MG TAB PO SCH (07:39)
[2018-12-18] MEDS: NICOTINE 21MG/24HR PATCH TRANSDERM SCH (07:40)
[2018-12-18] MEDS: PANTOPRAZOLE 40 MG TABLET PO SCH (07:40)
[2018-12-18] MEDS: RIVAROXABAN 20 MG TAB PO SCH (07:40)
[2018-12-18] MEDS: FOLIC ACID 1 MG TAB PO SCH (07:40)
[2018-12-18 11:43] LABS: Anisocytosis Slight; HCT 29.1 % (39.0-53.0); Hypochromasia Marked; MCH 24.5 pg (25.0-35.0); MCHC 28.1 g/dL (31.0-37.0); MCV 87.1 fL (80.0-100.0); Platelet Count 214 k/uL (150-450); Poikilocytosis Marked; RBC 3.33 m/uL (4.30-5.90); RDW 19.8 % (11.5-15.5); WBC 8.4 k/uL (3.8-10.6)
[2018-12-18 11:47] LABS: African American GFR (CKD) >90 (>60 ml/min/1.73 sqM); Anion Gap 5 mmol/L; Blood Urea Nitrogen 10 mg/dL (9-20); Calcium 7.7 mg/dL (8.4-10.2); Carbon Dioxide 28 mmol/L (22-30); Chloride 104 mmol/L (98-107); Glucose 87 mg/dL (74-99); Potassium 3.8 mmol/L (3.5-5.1); Sodium 137 mmol/L (137-145)
[2018-12-18 11:50] LABS: HGB 8.2 gm/dL (13.0-17.5)
[2018-12-18] MEDS ORDERED: ARTIFICIAL TEARS-HYPROMELLOSE DROPS 15 ML BTL BOTH EYES PRN (11:54)
[2018-12-18 12:03] LABS: Glucose,Whole Blood 94 mg/dL (75-99)
[2018-12-18 12:28] VITALS: RESP 16
[2018-12-18] MEDS: FERROUS SULFATE 325 MG TAB PO SCH (13:13)
--- NOTE | 2018-12-18 13:28 | PN ---
PROGRESS NOTE DATE OF SERVICE: 12/17/2018. REASON FOR FOLLOW UP: Left knee septic arthritis MRSA. INTERVAL HISTORY: The patient is currently afebrile. The patient is breathing comfortably. Denies any chest pain. No shortness of breath or cough. No nausea. No abdominal pain. No edema. No worsening pain to the left knee area. PHYSICAL EXAMINATION: Blood pressure 103/70 with a pulse of 84. Temperature 97.7. He is 96% on room air. General description is a middle-aged male lying in bed in no distress. Respiratory system: Unlabored breathing. Clear to auscultation anteriorly. Heart S1, S2. Regular rate and rhythm. ABDOMEN: Soft, no tenderness. Left knee remains to be swollen. No redness. No open wound or any drainage. LABS: Hemoglobin 6.6, white count 7.9. DIAGNOSTIC IMPRESSION AND PLAN: Patient with left knee septic arthritis with a complicated history currently with infected antibiotic spacer. The patient had extensive surgery, removal of spacer, possible debridement of the in order to completely cover this infection on vancomycin. [facility]. Continue supportive care. MMODL / IJN: [id number] /
[2018-12-18] MEDS: VANCOMYCIN 1,000 MG in SODIUM CHLORIDE 0.9% 250 ML IVPB SCH (15:17)
[2018-12-18] MEDS: hydrOXYzine PAMOATE 25 MG CAP PO PRN (16:05)
[2018-12-18 17:20] LABS: Glucose,Whole Blood 96 mg/dL (75-99)
--- NOTE | 2018-12-18 20:34 | PN ---
PROGRESS NOTE I am covering for Dr. Edward. DATE OF SERVICE: 12/18/2018. This 58-year-old gentleman was admitted with multiple medical problems including infected left knee, also needing IV antibiotics. The culture showed MRSA. The patient is slated to go to ECF, but however the patient does not have any ECF days anymore. The patient apparently had an outpatient appointment at [facility] for further surgery at this time. No chest pain. No palpitations. No fever. The patient also had hemoglobin dropped yesterday, but after transfusion hemoglobin improved to 8.1 today. PHYSICAL EXAM: Alert and oriented x three. Pulse 88. Blood pressure 110/66, respirations 16, temperature 99.2, pulse ox 94% on room air. HEENT: Conjunctivae normal. Oral mucosa moist. NECK is no jugular venous distention. No carotid bruit. No lymph node enlargement . CARDIOVASCULAR SYSTEM: S1, S2 muffled. RESPIRATION: Breath sounds diminished in the bases. A few scattered rhonchi. No crackles. ABDOMEN: Soft. Nontender. LEGS: Left knee infection. NERVOUS SYSTEM: No focal deficits. LABS: WBC 8.4, hemoglobin is 8.2, and calcium 7.7. ASSESSMENT: 1. Left knee infection with MRSA, status post antibiotic spacer removal and reinsertion. 2. Anemia, etiology uncertain. Rule out blood loss anemia. 3. Neuropathic pain for the left knee. 4. Gait dysfunction. 5. History of deep vein thrombosis. 6. History of pulmonary embolism. 7. History of seizure disorder. 8. History of syncope. 9. History of degenerative joint disease. 10.History of gastroesophageal reflux disease. 11.History of alcoholism. 12.History of bilateral pulmonary embolism. 13.History of nicotine dependence. 14.History of delirium tremens. 15.History of recent falls. 16.Anxiety, depression. 17.Remote history of nicotine dependence. 18.FULL CODE. RECOMMENDATIONS AND DISCUSSION: I recommend to continue current medications, management and symptomatic treatment. Otherwise, at this time, we will await the Case Management and as well as manager social responsibility input for further recommendations and Dr. Edward will follow. MMODL / IJN: [id number] /
[2018-12-18 21:58] LABS: Glucose,Whole Blood 108 mg/dL (75-99)
[2018-12-19] MEDS: MORPHINE SULFATE 4 MG/ML SYRINGE IVP PRN ×2 (00:58→09:10)
[2018-12-19] MEDS: HYDROcodone/APAP 7.5-325MG 1 EACH TAB PO PRN ×2 (02:01→08:35)
[2018-12-19 05:26] VITALS: BP 97/58; PULSE 82; TEMP 97.7
[2018-12-19] MEDS: VANCOMYCIN 1,000 MG in SODIUM CHLORIDE 0.9% 250 ML IVPB SCH (05:52)
[2018-12-19 06:36] LABS: African American GFR (CKD) >90 (>60 ml/min/1.73 sqM)
[2018-12-19 07:14] LABS: Glucose,Whole Blood 93 mg/dL (75-99)
[2018-12-19] MEDS: MAGNESIUM OXIDE 400 MG TAB PO SCH (08:34)
[2018-12-19] MEDS: PANTOPRAZOLE 40 MG TABLET PO SCH (08:34)
[2018-12-19] MEDS: GABAPENTIN 100 MG CAP PO SCH (08:34)
[2018-12-19] MEDS: SENNOSIDES-DOCUSATE SODIUM 1 EACH TAB PO SCH ×2 (08:34→08:37)
[2018-12-19] MEDS: THIAMINE 100 MG TAB PO SCH (08:34)
[2018-12-19] MEDS: hydrOXYzine PAMOATE 25 MG CAP PO PRN (08:34)
[2018-12-19] MEDS: FOLIC ACID 1 MG TAB PO SCH (08:34)
[2018-12-19] MEDS: RIVAROXABAN 20 MG TAB PO SCH ×2 (08:36→12:15)
[2018-12-19] MEDS: NICOTINE 21MG/24HR PATCH TRANSDERM SCH (08:40)
--- NOTE | 2018-12-19 10:47 | P.DS ---
Providers Date of admission: 12/13/18 14:20 Expected date of discharge: 12/19/18 Attending physician: Reggie Edward MD Consults: 12/13/18 03:00 Consult Physician Urgent Consulting Provider: Bassem Traylor Consult Reason/Comments: acute/chronic left knee pain Do you want consulting provider notified?: Yes 12/13/18 15:42 Consult Physician Routine Consulting Provider: Kelechi Hill Consult Reason/Comments: left knee infection Do you want consulting provider notified?: Yes Primary care physician: Claudette Edward [facility] Course: Final Diagnoses: (1) Intractable neuropathic pain of knee Current Visit: Yes Status: Acute Code(s): M79.2 - NEURALGIA AND NEURITIS, UNSPECIFIED SNOMED Code(s): 231452183 (2) Status post revision of total replacement of left knee Current Visit: Yes Status: Acute Code(s): Z96.652 - PRESENCE OF LEFT ARTIFICIAL KNEE JOINT SNOMED Code(s): 023729831163174 (3) History of MRSA infection; left knee aspirate cx positive for MRSA Current Visit: Yes Status: Acute Code(s): Z86.14 - PERSONAL HISTORY OF METHICILLIN RESIS STAPH INFECTION SNOMED Code(s): 863797519 (4) Pain in left knee Current Visit: Yes Status: Acute Code(s): M25.562 - PAIN IN LEFT KNEE SNOMED Code(s): 82617279 (5) 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 Current Visit: No Status: Acute Code(s): Z86.19 - PERSONAL HISTORY OF OTHER INFECTIOUS AND PARASITIC DISEASES; Z98.890 - OTHER SPECIFIED POSTPROCEDURAL STATES SNOMED Code(s): 845586918 (6) Anxiety Current Visit: Yes Status: Acute Code(s): F41.9 - ANXIETY DISORDER, UNSPECIFIED SNOMED Code(s): 43951680 (7) History of pulmonary embolism Current Visit: No Status: Acute Code(s): Z86.711 - PERSONAL HISTORY OF PULMONARY EMBOLISM SNOMED Code(s): 426396533 (8) Septic arthritis of knee, left Current Visit: No Status: Acute Code(s): M00.9 - PYOGENIC ARTHRITIS, UNSPECIFIED SNOMED Code(s): 636865521 Hospital course:Addy Villalpando is a 58 yo M with PMH significant for chronic knee pain s/p postoperative infection, COPD, DVT, GI bleed, PE, alcoholism, seizure disorder who presented to the ED complaining of acutely worsened pain of the L knee which has prevented him from being able to move at all. He states that for the past 17 months since his postoperative infection he has been in chronic severe pain which he rates as 8/10 on average and has been confined mostly to the bed or wheelchair. He states last night it was hurting so bad he had to call EMS. Pt was recently admitted approx 2 weeks ago for the same and at that time discharged with gabapentin for his knee pain. He states he has been taking this medication occasionally and is not sure if it is helping. Pt has been following with Dr. Traylor for the knee and states he has a revision procedure scheduled for approx 2 weeks. In the ED, vitals stable, CBC shows anemia to 10 and plt 400s, XR knee with anterior lucency and large effusion. This am, he complains of severe pain around the knee, exquisite sensitivity to light touch distally, and anxiety related to his pain. Knee aspirate culture reporting MRSA. PICC line placed, maintained on vancomycin as per ID.Case discussed with orthopedics at [facility] and patient will follow up with them as an outpatient next week for further surgical management. Significant clinical improvement. Cleared by infectious disease, orthopedic surgery for discharge to subacute rehab. Patient is being discharged to [facility]. in stable condition with guarded prognosis. - Exam Constitutional: well developed, alert and oriented 3, no acute distress, anxious. CV: RRR, no murmur Lungs: clear throughout Ext: L knee with large effusion. Tender to light touch. Distal LLE nontender to light touch. improving edema. NEURO: No focal deficits The impression and plan of care has been dictated as directed. : I performed a history and examination of this patient, discussed the same with the dictator. I agree with the dictator's note ,documented as a scribe. Any additional findings or plans will be noted. Time taken: 35 minutes Patient Condition at Discharge: Stable Plan - Discharge Summary Discharge Rx Participant: No New Discharge Prescriptions: New Artificial Tears-Hypromellose [Artificial Tear Drops] 2 drops BOTH EYES QID PRN bottle PRN Reason: Dry Eye(S) Nicotine 21Mg/24Hr Patch [Habitrol] 1 patch TRANSDERM DAILY patch Ferrous Sulfate [Iron (65 MG Elemental)] 325 mg PO W/LUNCH tab Multivitamins, Thera [Multivitamin (formulary)] 1 tab PO DAILY #1 tablet Gabapentin [Neurontin] 100 mg PO BID #6 cap Sennosides-Docusate Sodium [Senokot-S] 2 each PO BID tab Continue Pantoprazole [Protonix] 40 mg PO DAILY Rivaroxaban [Xarelto] 20 mg PO DAILY Magnesium Oxide [Mag-Ox] 400 mg PO DAILY Thiamine HCl [Vitamin B-1] 100 mg PO DAILY Folic Acid 1 mg PO DAILY HYDROcodone/APAP 7.5-325MG [Agate 7.5-325] 1 tab PO Q6H PRN #12 tab PRN Reason: Pain Discontinued Gabapentin [Neurontin] 300 mg PO BID Discharge Medication List Pantoprazole [Protonix] 40 mg PO DAILY 05/06/18 [History] Rivaroxaban [Xarelto] 20 mg PO DAILY 05/06/18 [History] Magnesium Oxide [Mag-Ox] 400 mg PO DAILY 07/19/18 [History] Thiamine HCl [Vitamin B-1] 100 mg PO DAILY 11/23/18 [History] Folic Acid 1 mg PO DAILY 12/12/18 [History] Artificial Tears-Hypromellose [Artificial Tear Drops] 2 drops BOTH EYES QID PRN bottle 12/19/18 [Rx] Ferrous Sulfate [Iron (65 MG Elemental)] 325 mg PO W/LUNCH tab 12/19/18 [Rx] Gabapentin [Neurontin] 100 mg PO BID #6 cap 12/19/18 [Rx] HYDROcodone/APAP 7.5-325MG [Agate 7.5-325] 1 tab PO Q6H PRN #12 tab 12/19/18 [Rx] Multivitamins, Thera [Multivitamin (formulary)] 1 tab PO DAILY #1 tablet 12/19/18 [Rx] Nicotine 21Mg/24Hr Patch [Habitrol] 1 patch TRANSDERM DAILY patch 12/19/18 [Rx] Sennosides-Docusate Sodium [Senokot-S] 2 each PO BID tab 12/19/18 [Rx] Follow up Appointment(s)/Referral(s): Orhtopedic Surgery, @ [facility] [Other] - 1 Week Claudette Edward DO [Primary Care Provider] - 3 Days Kelechi Hill MD [STAFF PHYSICIAN] - 1 Week Activity/Diet/Wound Care/Special Instructions: Medi [place] antibiotics as per ID cbc,bmp in 3 days
--- NOTE | 2018-12-19 14:45 | PN ---
PROGRESS NOTE DATE OF SERVICE: 12/19/2018 REASON FOR FOLLOWUP: Left knee septic arthritis, MRSA. INTERVAL HISTORY: The patient is currently afebrile. Patient is breathing comfortably. Patient denies having any chest pain or shortness of breath or cough. No worse pain in left knee area. PHYSICAL EXAM: The blood pressure 97/58 with a pulse of 82, temperature 97.7, he is 92% on room air. General description is a middle-aged male, lying in bed in no distress. RESPIRATORY SYSTEM: Unlabored breathing, clear to auscultation anteriorly. HEART: S1, S2. Regular rate and rhythm. ABDOMEN: Soft, no tenderness. LABS: Creatinine 0.84. Blood culture negative. DIAGNOSTIC IMPRESSION AND PLAN: Patient with left septic arthritis, failing multiple treatments, currently with antibiotic spacer. The patient has been referred to [facility] for surgical repair of the same. As for antibiotic, he will be continued on vancomycin pharmacy to dose while monitoring his clinical course and medications closely. MMODL / IJN: [id number] /
== END 2018-12-19 13:22 | DRG 560 ==
LOC: EC 20:22 → 4MS4W 12-13 03:05 → OBSVTOIN 12-13 14:20
PROVIDERS: ADMIT Family Medicine; ATTEND Family Medicine
PROC: 0S9D3ZX Drainage of Left Knee Joint, Percutaneous Approach, Diagnostic (ICD-10-PCS; principal; 2018-12-12)
PROC: 05HD33Z Insertion of Infusion Device into Right Cephalic Vein, Percutaneous Approach (ICD-10-PCS; 2018-12-14 15:05)
PROC: 02HV33Z Insertion of Infusion Device into Superior Vena Cava, Percutaneous Approach (ICD-10-PCS; 2018-12-16)
DX: T84.54XA Infection and inflammatory reaction due to internal left knee prosthesis, initial encounter (principal); J96.11 Chronic respiratory failure with hypoxia; M00.00 Staphylococcal arthritis, unspecified joint; B95.62 Methicillin resistant Staphylococcus aureus infection as the cause of diseases classified elsewhere; D64.9 Anemia, unspecified; E16.2 Hypoglycemia, unspecified; F10.20 Alcohol dependence, uncomplicated; F17.210 Nicotine dependence, cigarettes, uncomplicated; F32.9 Major depressive disorder, single episode, unspecified; F41.9 Anxiety disorder, unspecified; G40.909 Epilepsy, unspecified, not intractable, without status epilepticus; G89.29 Other chronic pain; Z86.711 Personal history of pulmonary embolism; Z79.01 Long term (current) use of anticoagulants; Z88.5 Allergy status to narcotic agent; J44.9 Chronic obstructive pulmonary disease, unspecified; K21.9 Gastro-esophageal reflux disease without esophagitis; Z87.19 Personal history of other diseases of the digestive system; M79.2 Neuralgia and neuritis, unspecified; Z79.899 Other long term (current) drug therapy; Z80.3 Family history of malignant neoplasm of breast; Z82.49 Family history of ischemic heart disease and other diseases of the circulatory system; Z86.14 Personal history of Methicillin resistant Staphylococcus aureus infection; Z86.718 Personal history of other venous thrombosis and embolism; Z96.653 Presence of artificial knee joint, bilateral; R29.6 Repeated falls; Z91.81 History of falling; K57.90 Diverticulosis of intestine, part unspecified, without perforation or abscess without bleeding; M25.462 Effusion, left knee; E86.0 Dehydration
CPT/HCPCS: 20610; 36410; 36415; 36573; 76937; 80048; 80053; 80202; 82550; 82565; 83605; 85025; 85027; 85610; 85652; 85730; 86140; 86850; 86900; 86901; 86920; 87040; 87070; 87077; 87186; 87205; 89050; 89060; 93005; 96365; 96366; 96367; 96372; 96375; 96376; 99285

== ENCOUNTER → 2019-03-15 | Outpatient (CLI) | payer MEDICARE, OTHER ==
[2019-03-15 11:43] LABS: Anisocytosis Slight; Basophils # (A) 0.1 k/uL (0-0.2); Basophils % (A) 1 %; Eosinophils # (A) 0.4 k/uL (0-0.7); Eosinophils % (A) 6 %; HCT 33.8 % (39.0-53.0); HGB 9.9 gm/dL (13.0-17.5); Hypochromasia Marked; Lymphocytes # (A) 2.2 k/uL (1.0-4.8); Lymphocytes % (A) 28 %; MCH 25.4 pg (25.0-35.0); MCHC 29.2 g/dL (31.0-37.0); MCV 86.9 fL (80.0-100.0); Mean Platelet Volume 5.7; Monocytes # (A) 0.4 k/uL (0-1.0); Monocytes % (A) 5 %; Neutrophils # (A) 4.2 k/uL (1.3-7.7); Neutrophils % (A) 56 %; Platelet Count 439 k/uL (150-450); RBC 3.89 m/uL (4.30-5.90); RDW 16.1 % (11.5-15.5); WBC 7.6 k/uL (3.8-10.6)
[2019-03-15 17:14] LABS: Hemoglobin A1C 5.4 % (4.0-6.0)
[2019-03-15 19:11] LABS: African American GFR (CKD) 95.1 (60.0-200.0); Albumin 3.7 g/dL (3.80-4.90); Calcium 8.4 mg/dL (8.7-10.3); Potassium 4.7 mmol/L (3.5-5.5)
== END | disposition home or self-care (01) ==
LOC: LABWHC1 10:32
PROVIDERS: ATTEND Orthopaedic Surgery
DX: Z01.812 Encounter for preprocedural laboratory examination (principal); T84.54XA Infection and inflammatory reaction due to internal left knee prosthesis, initial encounter
CPT/HCPCS: 36415; 80048; 82040; 83036; 85025; 87070

== ENCOUNTER 2019-07-09 21:56 | Inpatient (IN) | payer MEDICARE, OTHER ==
[2019-07-09] MEDS ORDERED: SODIUM CHLORIDE 0.9% 500 ML 500 ML IV SCH (22:30)
[2019-07-09] MEDS ORDERED: HYDROcodone/APAP 7.5-325MG 1 EACH TAB PO STA (23:10)
--- NOTE | 2019-07-09 23:25 | US ---
EXAMINATION TYPE: US venous doppler duplex LE LT DATE OF EXAM: 07/09/2019 11:11 PM COMPARISON: NONE CLINICAL HISTORY: edema, h/o PE. Patient has extensive, rock hard, edema on left leg that has been re cently sutured from distal thigh, and over knee cap. Patient is in severe pain and unable to move swo llen rigid leg at all. No h/o dvt, h/o PE 2018 SIDE PERFORMED: Left TECHNIQUE: The lower extremity deep venous system is examined utilizing real time linear array sonog jackie with graded compression, doppler sonography and color-flow sonography. VESSELS IMAGED: External Iliac Vein (EIV) Common Femoral Vein Deep Femoral Vein Greater Saphenous Vein * Femoral Vein Popliteal Vein Small Saphenous Vein * Proximal Calf Veins (* superficial vessels) Left Leg: very limited exam due to extensive swollen left leg, patients pain tolerance and inabili ty for ultrasound to fully penetrate vessels. Limited views of femoral vein and popiteal vein yielded good blood flow, but unable to access groin o r even attempt compression images. Without color doppler, tech was unable o visualize vessels. IMPRESSION: Limited exam shows no evidence of deep vein thrombosis in the left leg.
--- NOTE | 2019-07-09 23:27 | ED ---
General Adult HPI - General Chief complaint: Extremity Injury, Lower Stated complaint: wound infection Time Seen by Provider: 07/09/19 22:02 Source: patient, RN notes reviewed Mode of arrival: EMS Limitations: no limitations - History of Present Illness Initial comments: 59-year-old male with a complicated past medical history including DVT, PE currently on Xarelto presents to the emergency department for possible left knee infection. Patient has had up to 7 surgeries on the left knee according to the patient and has had the prosthesis removed due to chronic infection. I believe patient had surgery in February and twice in March on the left knee. He was sent from [facility] for increasing infection of the left knee. I called the nurse who stated that they noticed increased redness and drainage from the left knee yesterday. They have not noticed any fevers. [facility] Nurses unsure where patient's last surgery was completed or by whom. Patient states most recent surgeon was Dr Junaid Lo from [facility] in [facility]. patient [facility] for this problem in the past as well. Patient is currently receiving vancomycin through his PICC line for infection of the left knee. Patient has no other complaints at this time including shortness of breath, chest pain, abdominal pain, nausea or vomiting, headache, or visual changes. - Related Data Home Medications Medication Instructions Recorded Confirmed Pantoprazole [Protonix] 40 mg PO DAILY@0800 05/06/18 07/10/19 Rivaroxaban [Xarelto] 20 mg PO DAILY@0800 05/06/18 07/10/19 Magnesium Oxide [Mag-Ox] 400 mg PO BID@0800,1600 07/19/18 07/10/19 ALPRAZolam [Xanax] 1 mg PO Q6H PRN 07/10/19 07/10/19 Acetaminophen Tab [Tylenol Tab] 1,000 mg PO Q8H 07/10/19 07/10/19 Aspirin EC [Ecotrin Low Dose] 81 mg PO BID 07/10/19 07/10/19 Celecoxib [CeleBREX] 200 mg PO BID@0800,1600 07/10/19 07/10/19 Cephalexin [Keflex] 500 mg PO BID@0800,199907/10/19 07/10/19 Colloidal Oatmeal [Eucerin Eczema 1 applic TOPICAL Q12H PRN 07/10/19 07/10/19 Relief] Docusate [Colace] 100 mg PO Q12H PRN 07/10/19 07/10/19 Ferrous Sulfate [Feosol] 325 mg PO BID@0800,1600 07/10/19 07/10/19 Furosemide [Lasix] 40 mg PO DAILY@0800 07/10/19 07/10/19 Heparin 100units/Ml 5 ml IV Q12H 07/10/19 07/10/19 Ipratropium-Albuterol Nebulize 3 ml INHALATION RT-Q6H PRN 07/10/19 07/10/19 [Duoneb 0.5 mg-3 mg/3 ml Soln] Lactobacillus Acidophilus 1 tab PO BID@0800,159907/10/19 07/10/19 [Acidophilus] Miconazole Nitrate [Desenex] 1 applic TOPICAL Q12H PRN 07/10/19 07/10/19 Midodrine [ProAmatine] 10 mg PO Q8H 07/10/19 07/10/19 Multivitamins, Thera [Multivitamin 1 tab PO DAILY@0800 07/10/19 07/10/19 (formulary)] Nasal Moisturizine [place] 1 spray EA NOSTRIL Q12H PRN 07/10/19 07/10/19 Ondansetron [Zofran] 4 mg PO Q8H PRN 07/10/19 07/10/19 Potassium Chloride ER [K-Dur 10] 10 meq PO BID@0800,1600 07/10/19 07/10/19 S.boulardii/B.coagulans/Fos 942 mg PO BID@0800,1600 07/10/19 07/10/19 [Diff-Stat 471 mg Capsule] Sodium Chloride Irrig Solution 10 ml IV Q12H 07/10/19 07/10/19 [Saline 0.9% Irrigation] Sucralfate [Carafate] 1 gm PO QID 07/10/19 07/10/19 Tamsulosin [Flomax] 0.4 mg PO DAILY@0800 07/10/19 07/10/19 Vancomycin 1,000 mg IVPB HS@199907/10/19 07/10/19 guaiFENesin [guaiFENesin Oral 200 mg PO QID 07/10/19 07/10/19 Solution] oxyCODONE HCL [OxyIR] 10 mg PO Q6H PRN 07/10/19 07/10/19 Allergies Allergy/AdvReac Type Severity Reaction Status Date / Time tramadol AdvReac Mild Itching Verified 07/10/19 11:57 Review of Systems ROS Statement: Those systems with pertinent positive or pertinent negative responses have been documented in the HPI. ROS Other: All systems not noted in ROS Statement are negative. Past Medical History Past Medical History: Deep Vein Thrombosis (DVT), GERD/Reflux, Osteoarthritis (OA), Pulmonary Embolus (PE), Seizure Disorder, Syncope Additional Past Medical History / Comment(s): Alcoholism, recent hospitalization for bilateral pulmonary embolism with clot occluding the left pulmonary artery and evidence of right ventricular strain pattern maintained on anticoagulation, COPD, chronic hypoxic respiratory failure, FEV1 of 51% of predicted with chronic hypoxic respiratory failure, chronic smoker carries more than on the PACU smoking history, alcoholism, history of delirium tremens, history of recurrent falls, history of rib fractures related to falls, GERD, diverticulosis, seizure disorder, osteoarthritis, history of small bowel obstruction secondary to incar cerated right inguinal hernia, History of Any Multi-Drug Resistant Organisms: MRSA Date of last positivie culture/infection: 12/13/18 MDRO Source:: Knee Aspirate Past Surgical History: Orthopedic Surgery Additional Past Surgical History / Comment(s): Colonoscopies and polypectomies, 10/21/15 normal cardiac cath, multiple inguinal hernia surg., bilateral knee arthroscopies and pt states bilateral knee arthroplasties."had blood clots removed from lungs at [facility], i'not sure what they did". Knee surgery- 7 surgeries on the left knee Past Anesthesia/Blood Transfusion Reactions: No Reported Reaction Past Psychological History: Anxiety, Depression Smoking Status: Current some day smoker Past Alcohol Use History: Occasional Past Drug Use History: None Reported - Past Family History Father Family Medical History: Coronary Artery Disease (CAD), Myocardial Infarction (RI) Additional Family Medical History / Comment(s): Father of a RI at the age of 73 yrs. Mother Family Medical History: Cancer Additional Family Medical History / Comment(s): BREAST CA General Exam - General Exam Comments Initial Comments: Left knee: Patient has large incision noted along the anterior aspect of the left knee. This is somewhat erythematous but may be related to healing. There is edema with increased warmth of the left knee. Patient unable to flex left knee however I think this is related to his surgery. Right lower extremities: Patient has mild erythema noted of the left calf. He does have pitting edema of the left thigh. Full range of motion of the right lower extremity. Limitations: no limitations General appearance: alert, in no apparent distress Head exam: Present: atraumatic, normocephalic, normal inspection Eye exam: Present: normal appearance, PERRL, EOMI. Absent: scleral icterus, conjunctival injection, periorbital swelling ENT exam: Present: normal exam, mucous membranes moist Neck exam: Present: normal inspection, full ROM. Absent: tenderness, meningismus, lymphadenopathy Respiratory exam: Present: normal lung sounds bilaterally. Absent: respiratory distress, wheezes, rales, rhonchi, stridor Cardiovascular Exam: Present: regular rate, normal rhythm, normal heart sounds. Absent: systolic murmur, diastolic murmur, rubs, gallop, clicks Course Vital Signs 07/09/19 07/10/19 21:58 00:47 Temperature 97.1 F L 98.9 F Pulse Rate 68 69 Respiratory 18 18 Rate Blood Pressure 115/94 120/90 O2 Sat by Pulse 94 L 95 Oximetry Medical Decision Making - Medical Decision Making Patient was seen and evaluated upon arrival. HPI obtained to the best of my ability. Physical exam as documented. Ultrasound of the left lower extremity showed a limited exam however no evidence of DVT in the left leg. Chest x-ray showed slight increased lung markings without definite acute lung disease. Normal heart. No adverse change. X-ray of the left knee showed removal of the articular component of the knee prosthesis compared to last exam. There is bone cement occupying the spacer no sign of osteomyelitis. No fracture. Care was signed out to Dr. Maldonado at midnight pending laboratory evaluation. - Lab Data Result diagrams: 07/09/19 23:45 07/09/19 23:45 Lab Results 07/09/19 07/09/19 07/09/19 Range/Units 23:45 23:45 23:45 WBC 10.3 (3.8-10.6) k/uL RBC 3.46 L (4.30-5.90) m/uL Hgb 9.3 L (13.0-17.5) gm/dL Hct 34.8 L (39.0-53.0) % MCV 100.6 H (80.0-100.0) fL MCH 27.0 (25.0-35.0) pg MCHC 26.8 L (31.0-37.0) g/dL RDW 24.2 H (11.5-15.5) % Plt Count 598 H (150-450) k/uL Neutrophils % 60 % Lymphocytes % 21 % Monocytes % 7 % Eosinophils % 6 % Basophils % 1 % Neutrophils # 6.2 (1.3-7.7) k/uL Lymphocytes # 2.2 (1.0-4.8) k/uL Monocytes # 0.7 (0-1.0) k/uL Eosinophils # 0.6 (0-0.7) k/uL Basophils # 0.1 (0-0.2) k/uL Manual Slide Review Performed Polychromasia Present Hypochromasia Marked Poikilocytosis Slight Poikilocytosis (manual Present Basophilic Stippling Present Anisocytosis Marked Macrocytosis Marked A Sodium 141 (137-145) mmol/L Potassium 4.7 (3.5-5.1) mmol/L Chloride 110 H (98-107) mmol/L Carbon Dioxide 18 L (22-30) mmol/L Anion Gap 13 mmol/L BUN 25 H (9-20) mg/dL Creatinine 1.87 H (0.66-1.25) mg/dL Est GFR (CKD-EPI)AfAm 45 (>60 ml/min/1.73 sqM) Est GFR (CKD-EPI)NonAf 39 (>60 ml/min/1.73 sqM) Glucose 97 (74-99) mg/dL Lactic Ac Sepsis Rflx Plasma Lactic Acid Chet 2.1 H* (0.7-2.0) mmol/L Calcium 8.5 (8.4-10.2) mg/dL Total Bilirubin 0.7 (0.2-1.3) mg/dL AST 19 (17-59) U/L ALT 8 (4-49) U/L Alkaline Phosphatase 105 (38-126) U/L Troponin I (0.000-0.034) ng/mL C-Reactive Protein 63.5 H (<10.0) mg/L NT-Pro-B Natriuret Pep pg/mL Total Protein 6.6 (6.3-8.2) g/dL Albumin 3.4 L (3.5-5.0) g/dL Random Vancomycin ug/mL 07/09/19 07/09/19 07/09/19 Range/Units 23:45 23:45 23:45 WBC (3.8-10.6) k/uL RBC (4.30-5.90) m/uL Hgb (13.0-17.5) gm/dL Hct (39.0-53.0) % MCV (80.0-100.0) fL MCH (25.0-35.0) pg MCHC (31.0-37.0) g/dL RDW (11.5-15.5) % Plt Count (150-450) k/uL Neutrophils % % Lymphocytes % % Monocytes % % Eosinophils % % Basophils % % Neutrophils # (1.3-7.7) k/uL Lymphocytes # (1.0-4.8) k/uL Monocytes # (0-1.0) k/uL Eosinophils # (0-0.7) k/uL Basophils # (0-0.2) k/uL Manual Slide Review Polychromasia Hypochromasia Poikilocytosis Poikilocytosis (manual Basophilic Stippling Anisocytosis Macrocytosis Sodium (137-145) mmol/L Potassium (3.5-5.1) mmol/L Chloride (98-107) mmol/L Carbon Dioxide (22-30) mmol/L Anion Gap mmol/L BUN (9-20) mg/dL Creatinine (0.66-1.25) mg/dL Est GFR (CKD-EPI)AfAm (>60 ml/min/1.73 sqM) Est GFR (CKD-EPI)NonAf (>60 ml/min/1.73 sqM) Glucose (74-99) mg/dL Lactic Ac Sepsis Rflx Plasma Lactic Acid Chet (0.7-2.0) mmol/L Calcium (8.4-10.2) mg/dL Total Bilirubin (0.2-1.3) mg/dL AST (17-59) U/L ALT (4-49) U/L Alkaline Phosphatase (38-126) U/L Troponin I <0.012 (0.000-0.034) ng/mL C-Reactive Protein (<10.0) mg/L NT-Pro-B Natriuret Pep 9650 pg/mL Total Protein (6.3-8.2) g/dL Albumin (3.5-5.0) g/dL Random Vancomycin 18.6 ug/mL 07/10/19 Range/Units 00:33 WBC (3.8-10.6) k/uL RBC (4.30-5.90) m/uL Hgb (13.0-17.5) gm/dL Hct (39.0-53.0) % MCV (80.0-100.0) fL MCH (25.0-35.0) pg MCHC (31.0-37.0) g/dL RDW (11.5-15.5) % Plt Count (150-450) k/uL Neutrophils % % Lymphocytes % % Monocytes % % Eosinophils % % Basophils % % Neutrophils # (1.3-7.7) k/uL Lymphocytes # (1.0-4.8) k/uL Monocytes # (0-1.0) k/uL Eosinophils # (0-0.7) k/uL Basophils # (0-0.2) k/uL Manual Slide Review Polychromasia Hypochromasia Poikilocytosis Poikilocytosis (manual Basophilic Stippling Anisocytosis Macrocytosis Sodium (137-145) mmol/L Potassium (3.5-5.1) mmol/L Chloride (98-107) mmol/L Carbon Dioxide (22-30) mmol/L Anion Gap mmol/L BUN (9-20) mg/dL Creatinine (0.66-1.25) mg/dL Est GFR (CKD-EPI)AfAm (>60 ml/min/1.73 sqM) Est GFR (CKD-EPI)NonAf (>60 ml/min/1.73 sqM) Glucose (74-99) mg/dL Lactic Ac Sepsis Rflx Y Plasma Lactic Acid Chet (0.7-2.0) mmol/L Calcium (8.4-10.2) mg/dL Total Bilirubin (0.2-1.3) mg/dL AST (17-59) U/L ALT (4-49) U/L Alkaline Phosphatase (38-126) U/L Troponin I (0.000-0.034) ng/mL C-Reactive Protein (<10.0) mg/L NT-Pro-B Natriuret Pep pg/mL Total Protein (6.3-8.2) g/dL Albumin (3.5-5.0) g/dL Random Vancomycin ug/mL Disposition Clinical Impression: Chronic infection of knee Disposition: ADMITTED IP TO THIS HOSP
--- NOTE | 2019-07-10 00:07 | XR ---
EXAMINATION TYPE: XR chest 2V DATE OF EXAM: 07/09/2019 COMPARISON: 11/25/2018 HISTORY: Leg edema TECHNIQUE: FINDINGS: There is mild coarsening of the lung markings. Heart size is normal. There are no hilar mas ses. There is no pleural effusion. There is left-sided central venous catheter with tip in the superi or vena cava. Bony thorax is intact. IMPRESSION: Slight increased lung markings. No definite acute lung disease. Normal heart. No adverse change compared to old exam.
--- NOTE | 2019-07-10 00:09 | XR ---
EXAMINATION TYPE: XR knee complete LT DATE OF EXAM: 07/09/2019 COMPARISON: 12/12/2018 HISTORY: Knee pain TECHNIQUE: 3 views FINDINGS: There is bone cement in the knee related to removal of the prosthesis. There are pins in th e distal femur and proximal tibia. Bones are in anatomic position. I see no focal bone destruction. IMPRESSION: There is removal of the articular components of the knee prosthesis compared to last exam . There is bone cement occupying the space. No sign of osteomyelitis. No fracture seen.
[2019-07-10 00:15] LABS: Albumin 3.4 g/dL (3.5-5.0); Calcium 8.5 mg/dL (8.4-10.2); Potassium 4.7 mmol/L (3.5-5.1); Total Bilirubin 0.7 mg/dL (0.2-1.3); Total Protein 6.6 g/dL (6.3-8.2)
[2019-07-10] MEDS ORDERED: VANCOMYCIN IV PER PHARMACY 1 EACH MISC MISCELLANE PRN (00:19)
[2019-07-10 00:20] LABS: Anisocytosis Marked; Basophils # (A) 0.1 k/uL (0-0.2); Basophils % (A) 1 %; Eosinophils # (A) 0.6 k/uL (0-0.7); Eosinophils % (A) 6 %; HCT 34.8 % (39.0-53.0); HGB 9.3 gm/dL (13.0-17.5); Hypochromasia Marked; Lymphocytes # (A) 2.2 k/uL (1.0-4.8); Lymphocytes % (A) 21 %; MCHC 26.8 g/dL (31.0-37.0); MCV 100.6 fL (80.0-100.0); Macrocytosis Marked; Mean Platelet Volume 6.8; Monocytes # (A) 0.7 k/uL (0-1.0); Monocytes % (A) 7 %; Neutrophils # (A) 6.2 k/uL (1.3-7.7); Neutrophils % (A) 60 %; Platelet Count 598 k/uL (150-450); Poikilocytosis Slight; RBC 3.46 m/uL (4.30-5.90); RDW 24.2 % (11.5-15.5); WBC 10.3 k/uL (3.8-10.6)
[2019-07-10] MEDS ORDERED: SODIUM CHLORIDE 0.9% 500 ML 500 ML IV STA (00:20)
[2019-07-10 00:32] LABS: C Reactive Protein 63.5 mg/L (<10.0)
[2019-07-10 00:46] LABS: Basophilic Stippling Present; Poikilocytosis (M) Present; Polychromasia Present
[2019-07-10] MEDS ORDERED: ONDANSETRON 4 MG/2 ML VIAL IVP PRN (00:59)
[2019-07-10] MEDS ORDERED: NALOXONE 0.4 MG/ML 1 ML VIAL IV PRN (00:59)
[2019-07-10] MEDS ORDERED: MORPHINE SULFATE 4 MG/ML SYRINGE IV PRN (00:59)
[2019-07-10] MEDS ORDERED: VANCOMYCIN 1,000 MG in SODIUM CHLORIDE 0.9% 250 ML IVPB STA (01:04)
[2019-07-10] MEDS: HYDROmorphone 0.5 MG/0.5 ML SYRINGE IVP PRN ×4 (04:08→21:03)
[2019-07-10] MEDS: PANTOPRAZOLE 40 MG TABLET PO SCH (09:43)
--- NOTE | 2019-07-10 11:39 | P.CNOR ---
History of Present Illness - HPI Consult date: 07/10/19 Consult reason: other (Chronic left knee infection) History of present illness: The patient is a 59 y/o male who is known to our practice with a history of recurrent left knee infection. His last surgery with Dr. Bassem Traylor was in April 2018 when an antibiotic spacer was placed. We last saw him in November 2018 during an admission for fever and nausea. He has been following with Dr. Junaid Yanes out of [place], [place] and in the [facility] office as well. The patient's last surgery was on 06/13/2019 and 06/20/2019 at [facility]. He went to [facility] for continued physical therapy. He was sent to the ER last night for further evaluation of wound drainage and redness of the incision. Sutures are still in place. He denies fever, chills, and rigors. Upon exam in the ER, his white count is 10.3 and CRP is 63.5. Doppler is negative for DVT. He states he is currently receiving IV antibiotics at skilled rehab. Review of Systems Constitutional: Denies chills, Denies fever Cardiovascular: Denies chest pain, Denies shortness of breath Respiratory: Denies cough Gastrointestinal: Denies abdominal pain, Denies diarrhea, Denies nausea, Denies vomiting Musculoskeletal: left: knee pain, knee stiffness, knee swelling Past Medical History Past Medical History: Deep Vein Thrombosis (DVT), GERD/Reflux, Osteoarthritis (OA), Pulmonary Embolus (PE), Seizure Disorder, Syncope Additional Past Medical History / Comment(s): Alcoholism, recent hospitalization for bilateral pulmonary embolism with clot occluding the left pulmonary artery and evidence of right ventricular strain pattern maintained on anticoagulation, COPD, chronic hypoxic respiratory failure, FEV1 of 51% of predicted with chronic hypoxic respiratory failure, chronic smoker carries more than on the PACU smoking history, alcoholism, history of delirium tremors, history of recurrent falls, history of rib fractures related to falls, GERD, diverticulosis, seizure disorder, osteoarthritis, history of small bowel obstruction secondary to incarcerated right inguinal hernia, History of Any Multi-Drug Resistant Organisms: MRSA Year Discovered:: 12/13/18 MDRO Source:: Knee Aspirate Past Surgical History: Orthopedic Surgery Additional Past Surgical History / Comment(s): Colonoscopies and polypectomies, 10/21/15 normal cardiac cath, multiple inguinal hernia surg., bilateral knee arthroscopies and pt states bilateral knee arthroplasties."had blood clots removed from lungs at [facility], i'not sure what they did". Knee surgery- 7 surgeries on the left knee Past Anesthesia/Blood Transfusion Reactions: No Reported Reaction Past Psychological History: Anxiety, Depression Additional Psychological History / Comment(s): . Lives independently. Elderly mother. Significant other with health concerns. Ongoing tobacco use. Relates no alcohol use since his last hospital stay. Smoking Status: Former smoker Past Alcohol Use History: Occasional Additional Past Alcohol Use History / Comment(s): Patient is a smoker of a half a pack of cigarettes per day since she was 14 years of age. pt has been residing in [facility] for abx txt and has been smoke free. He does have history of heavy alcohol use.He is . He lives independently. Past Drug Use History: None Reported Additional Drug Use History / Comment(s): Pt states in the past he had used cocaine but none for 20years. He denies ever abusing prescription drugs. - Past Family History Father Family Medical History: Coronary Artery Disease (CAD), Myocardial Infarction ([place]) Additional Family Medical History / Comment(s): Father of a [place] at the age of 73 yrs. Mother Family Medical History: Cancer Additional Family Medical History / Comment(s): BREAST CA Medications and Allergies Home Medications Medication Instructions Recorded Confirmed Type Pantoprazole [Protonix] 40 mg PO DAILY 05/06/18 12/12/18 History Rivaroxaban [Xarelto] 20 mg PO DAILY 05/06/18 12/12/18 History Magnesium Oxide [Mag-Ox] 400 mg PO DAILY 07/19/18 12/12/18 History Thiamine HCl [Vitamin B-1] 100 mg PO DAILY 11/23/18 12/12/18 History Folic Acid 1 mg PO DAILY 12/12/18 12/12/18 History Artificial Tears-Hypromellose 2 drops BOTH EYES QID PRN bottle 12/19/18 Rx [Artificial Tear Drops] Ferrous Sulfate [Iron (65 MG 325 mg PO W/LUNCH tab 12/19/18 Rx Elemental)] Gabapentin [Neurontin] 100 mg PO BID #6 cap 12/19/18 Rx HYDROcodone/APAP 7.5-325MG [[place] 1 tab PO Q6H PRN #12 tab 12/19/18 Rx 7.5-325] Multivitamins, Thera [Multivitamin 1 tab PO DAILY #1 tablet 12/19/18 Rx (formulary)] Nicotine 21Mg/24Hr Patch [Habitrol] 1 patch TRANSDERM DAILY patch 12/19/18 Rx Sennosides-Docusate Sodium 2 each PO BID tab 12/19/18 Rx [Senokot-S] Vancomycin HCl in 5 % Dextrose 1 gm IV DIRECTED #30 plast..bag 12/19/18 Rx [Vancomycin 1 Gram/250 ml-D5w] Allergies Allergy/AdvReac Type Severity Reaction Status Date / Time tramadol AdvReac Mild Itching Verified 12/12/18 20:42 Physical Examination The patient is a 59 y/o male who is no acute distress. He is alert and oriented x2. Exam of the left knee reveals an incision with sutures in place. There is scabbing present. No active drainage is present today. There is some old drainage on the patient's sheets. Erythema is minimal. ROM of the knee was not performed due to the patient's knee fusion in the past. Calf is soft but moderately tender to touch. 2+ edema is present to the lower leg. Foot and ankle motion is ok. Neurological and circulatory status is intact. Results - Labs Labs: Abnormal Lab Results - Last 24 Hours (Table) 07/09/19 07/09/19 07/09/19 Range/Units 23:45 23:45 23:45 RBC 3.46 L (4.30-5.90) m/uL Hgb 9.3 L (13.0-17.5) gm/dL Hct 34.8 L (39.0-53.0) % MCV 100.6 H (80.0-100.0) fL MCHC 26.8 L (31.0-37.0) g/dL RDW 24.2 H (11.5-15.5) % Plt Count 598 H (150-450) k/uL Macrocytosis Marked A Chloride 110 H (98-107) mmol/L Carbon Dioxide 18 L (22-30) mmol/L BUN 25 H (9-20) mg/dL Creatinine 1.87 H (0.66-1.25) mg/dL Plasma Lactic Acid Chet 2.1 H* (0.7-2.0) mmol/L C-Reactive Protein 63.5 H (<10.0) mg/L Albumin 3.4 L (3.5-5.0) g/dL H & H 07/09/19 Range/Units 23:45 Hgb 9.3 L (13.0-17.5) gm/dL Hct 34.8 L (39.0-53.0) % Result Diagrams: 07/09/19 23:45 07/09/19 23:45 - Diagnostic results Knee x-ray: image reviewed (Three views of the left knee reveal rods in place. Fusion of the knee is incomplete. ) Assessment and Plan (1) Wound drainage Current Visit: Yes Status: Acute Code(s): T14.8XXA - OTHER INJURY OF UNSPECIFIED BODY REGION, INITIAL ENCOUNTER SNOMED Code(s): 839080513 (2) Infection of total left knee replacement Current Visit: Yes Status: Acute Code(s): T84.54XA - INFECT/INFLM REACTION DUE TO INTERNAL LEFT KNEE PROSTH, INIT; Z96.652 - PRESENCE OF LEFT ARTIFICIAL KNEE JOINT SNOMED Code(s): 529831662 (3) MRSA infection Current Visit: No Status: Acute Code(s): A49.02 - METHICILLIN RESIS STAPH INFECTION, UNSP SITE SNOMED Code(s): 821843142 Plan: The clinical and x-ray findings were discussed with the patient. Additional history and information was obtained from his significant other per nursing staff. The case was discussed with Dr. Bassem Traylor. Due to his recent surgery and his surgical history, we recommend transfer to care under Dr. Yanes at [facility] today for continuation of care. Continue nonweightbearing to the left lower extremity. Continue current antibiotic therapy until transfer. The case was discussed with Angie (Dr. Yanes's PA) at the [facility] office and they accept the transfer.
--- NOTE | 2019-07-10 13:10 | P.HPIM ---
History of Present Illness H&P Date: 07/10/19 Chief Complaint: L knee and R ankle pain Addy Villalpando is a 59-year-old male with past medical history significant for left knee septic arthritis with MRSA, COPD, DVT, PE, alcoholism. Patient has had multiple operations on the knee most recently 06/13/2019 and 06/20/[address] Junaid Yanes at [facility]. Patient states he had a fusion of the knee and this was recently reversed. He was recovering at [facility] when he complained of worsening left knee pain as well as new right ankle pain. He denies any fevers or chills. He states he has been completely unable to bear weight or bend his left knee, right ankle, or right knee without significant pain. As pt felt his pain was worsened he was transferred to the ED. In the ED his vitals were stable, sutures in place, WBC 10.3k, CRP 63.5, US negative for DVT. He has continued on vancomycin IV at subacute rehab. Review of Systems All systems: negative Constitutional: Reports as per HPI, Reports malaise, Denies chills, Denies fever Eyes: denies blurred vision, denies pain Ears, nose, mouth and throat: Denies headache, Denies sore throat Cardiovascular: Denies chest pain, Denies shortness of breath Respiratory: Denies cough Gastrointestinal: Denies abdominal pain, Denies diarrhea, Denies nausea, Denies vomiting Musculoskeletal: Denies myalgias Musculoskeletal: right: ankle pain, ankle stiffness, left: knee pain, knee stiffness, knee swelling Integumentary: Denies pruritus, Denies rash Neurological: Denies numbness, Denies weakness Psychiatric: Denies anxiety, Denies depression Endocrine: Denies fatigue, Denies weight change Past Medical History Past Medical History: Deep Vein Thrombosis (DVT), GERD/Reflux, Osteoarthritis (OA), Pulmonary Embolus (PE), Seizure Disorder, Syncope Additional Past Medical History / Comment(s): Alcoholism, recent hospitalization for bilateral pulmonary embolism with clot occluding the left pulmonary artery and evidence of right ventricular strain pattern maintained on anticoagulation, COPD, chronic hypoxic respiratory failure, FEV1 of 51% of predicted with chronic hypoxic respiratory failure, chronic smoker carries more than on the PACU smoking history, alcoholism, history of delirium tremors, history of recurrent falls, history of rib fractures related to falls, GERD, diverticulosis, seizure disorder, osteoarthritis, history of small bowel obstruction secondary to incarcerated right inguinal hernia, History of Any Multi-Drug Resistant Organisms: MRSA Date of last positivie culture/infection: 12/13/18 MDRO Source:: Knee Aspirate Past Surgical History: Orthopedic Surgery Additional Past Surgical History / Comment(s): Colonoscopies and polypectomies, 10/21/15 normal cardiac cath, multiple inguinal hernia surg., bilateral knee arthroscopies and pt states bilateral knee arthroplasties."had blood clots removed from lungs at [facility], i'not sure what they did". Knee surgery- 7 surgeries on the left knee Past Anesthesia/Blood Transfusion Reactions: No Reported Reaction Past Psychological History: Anxiety, Depression Additional Psychological History / Comment(s): . Lives independently. Elderly mother. Significant other with health concerns. Ongoing tobacco use. Relates no alcohol use since his last hospital stay. Smoking Status: Former smoker Past Alcohol Use History: Occasional Additional Past Alcohol Use History / Comment(s): Patient is a smoker of a half a pack of cigarettes per day since she was 14 years of age. pt has been residing in [facility] for abx txt and has been smoke free. He does have history of heavy alcohol use.He is . He lives independently. Past Drug Use History: None Reported Additional Drug Use History / Comment(s): Pt states in the past he had used cocaine but none for 20years. He denies ever abusing prescription drugs. - Past Family History Father Family Medical History: Coronary Artery Disease (CAD), Myocardial Infarction (OR) Additional Family Medical History / Comment(s): Father of a OR at the age of 73 yrs. Mother Family Medical History: Cancer Additional Family Medical History / Comment(s): BREAST CA Medications and Allergies Home Medications Medication Instructions Recorded Confirmed Type Pantoprazole [Protonix] 40 mg PO DAILY@0800 05/06/18 07/10/19 History Rivaroxaban [Xarelto] 20 mg PO DAILY@0800 05/06/18 07/10/19 History Magnesium Oxide [Mag-Ox] 400 mg PO BID@0800,1600 07/19/18 07/10/19 History ALPRAZolam [Xanax] 1 mg PO Q6H PRN 07/10/19 07/10/19 History Acetaminophen Tab [Tylenol Tab] 1,000 mg PO Q8H 07/10/19 07/10/19 History Aspirin EC [Ecotrin Low Dose] 81 mg PO BID 07/10/19 07/10/19 History Celecoxib [CeleBREX] 200 mg PO BID@0800,1600 07/10/19 07/10/19 History Cephalexin [Keflex] 500 mg PO BID@0800,199907/10/19 07/10/19 History Colloidal Oatmeal [Eucerin Eczema 1 applic TOPICAL Q12H PRN 07/10/19 07/10/19 History Relief] Docusate [Colace] 100 mg PO Q12H PRN 07/10/19 07/10/19 History Ferrous Sulfate [Feosol] 325 mg PO BID@0800,159907/10/19 07/10/19 History Furosemide [Lasix] 40 mg PO DAILY@0800 07/10/19 07/10/19 History Heparin 100units/Ml 5 ml IV Q12H 07/10/19 07/10/19 History Ipratropium-Albuterol Nebulize 3 ml INHALATION RT-Q6H PRN 07/10/19 07/10/19 History [Duoneb 0.5 mg-3 mg/3 ml Soln] Lactobacillus Acidophilus 1 tab PO BID@0800,159907/10/19 07/10/19 History [Acidophilus] Miconazole Nitrate [Desenex] 1 applic TOPICAL Q12H PRN 07/10/19 07/10/19 History Midodrine [ProAmatine] 10 mg PO Q8H 07/10/19 07/10/19 History Multivitamins, Thera [Multivitamin 1 tab PO DAILY@0800 07/10/19 07/10/19 History (formulary)] Nasal Moisturizine [place] 1 spray EA NOSTRIL Q12H PRN 07/10/19 07/10/19 History Ondansetron [Zofran] 4 mg PO Q8H PRN 07/10/19 07/10/19 History Potassium Chloride ER [K-Dur 10] 10 meq PO BID@0800,1600 07/10/19 07/10/19 History S.boulardii/B.coagulans/Fos 942 mg PO BID@0800,1600 07/10/19 07/10/19 History [Diff-Stat 471 mg Capsule] Sodium Chloride Irrig Solution 10 ml IV Q12H 07/10/19 07/10/19 History [Saline 0.9% Irrigation] Sucralfate [Carafate] 1 gm PO QID 07/10/19 07/10/19 History Tamsulosin [Flomax] 0.4 mg PO DAILY@0800 07/10/19 07/10/19 History Vancomycin 1,000 mg IVPB HS@2000 07/10/19 07/10/19 History guaiFENesin [guaiFENesin Oral 200 mg PO QID 07/10/19 07/10/19 History Solution] oxyCODONE HCL [OxyIR] 10 mg PO Q6H PRN 07/10/19 07/10/19 History Allergies Allergy/AdvReac Type Severity Reaction Status Date / Time tramadol AdvReac Mild Itching Verified 07/10/19 11:57 Physical Exam Vitals: Vital Signs Temp Pulse Pulse Resp BP BP Pulse Ox 07/10/19 07:17 98.3 F 77 16 116/74 90 L 07/10/19 02:04 97.5 F L 69 18 116/79 96 07/10/19 00:47 98.9 F 69 18 120/90 95 07/09/19 21:58 97.1 F L 68 18 115/94 94 L Intake and Output 07/09/19 07/10/19 07/10/19 22:59 06:59 14:59 Other: Voiding Method Urinal # Voids 1 Weight 77.111 kg 77.111 kg Gen: well-developed, well-nourished white male in no acute distress HEENT: normocephalic, atraumatic, mucous membranes moist Neck: Supple, no JVD, no thyromegaly CV: Regular rate and rhythm, no murmur, peripheral pulses 1+ Lungs: Normal effort, clear throughout Abdomen: Soft, nontender, nondistended Extremities: Left knee incision C/D/I. No drainage. Right ankle no effusion, no warmth, tender to palpation. Right ankle painful to forced dorsiflexion and plantarflexion Neuro: Alert and oriented 3, no focal deficits Skin: Bilateral lower extremity skin thickened, signs of stasis dermatitis Results CBC & Chem 7: 07/09/19 23:45 07/09/19 23:45 Labs: Abnormal Lab Results - Last 24 Hours (Table) 07/09/19 07/09/19 07/09/19 Range/Units 23:45 23:45 23:45 RBC 3.46 L (4.30-5.90) m/uL Hgb 9.3 L (13.0-17.5) gm/dL Hct 34.8 L (39.0-53.0) % MCV 100.6 H (80.0-100.0) fL MCHC 26.8 L (31.0-37.0) g/dL RDW 24.2 H (11.5-15.5) % Plt Count 598 H (150-450) k/uL Macrocytosis Marked A Chloride 110 H (98-107) mmol/L Carbon Dioxide 18 L (22-30) mmol/L BUN 25 H (9-20) mg/dL Creatinine 1.87 H (0.66-1.25) mg/dL Plasma Lactic Acid Chet 2.1 H* (0.7-2.0) mmol/L C-Reactive Protein 63.5 H (<10.0) mg/L Albumin 3.4 L (3.5-5.0) g/dL Thrombosis Risk Factor Assmnt - Choose All That Apply Any of the Below Risk Factors Present?: Yes Each Factor Represents 1 point: Age 41-60 years, Medical pt on bed rest, Obesity (BMI >25) Other Risk Factors: Yes Each Risk Factor Represents 3 Points: History of DVT/PE Thrombosis Risk Factor Assessment Total Risk Factor Score: 6 Thrombosis Risk Factor Assessment Level: High Risk Assessment and Plan (1) Infection of total left knee replacement Current Visit: Yes Status: Acute Code(s): T84.54XA - INFECT/INFLM REACTION DUE TO INTERNAL LEFT KNEE PROSTH, INIT; Z96.652 - PRESENCE OF LEFT ARTIFICIAL KNEE JOINT SNOMED Code(s): 318347420 (2) GERD (gastroesophageal reflux disease) Current Visit: No Status: Acute Code(s): K21.9 - GASTRO-ESOPHAGEAL REFLUX DISEASE WITHOUT ESOPHAGITIS SNOMED Code(s): 463618849 (3) History of MRSA infection Current Visit: No Status: Acute Code(s): Z86.14 - PERSONAL HISTORY OF METHICILLIN RESIS STAPH INFECTION SNOMED Code(s): 233155807 Plan: 1. L knee pain. History of recurrent septic arthritis s/p antibiotic spacer with Dr. Traylor in 2018 followed by fusion and subsequent TKA with Dr Yanes in 05/2019. Orthopedic surgery consulted and recommending pt be transferred to [facility] where he can be seen by his surgeon. Continue IV vancomycin and pain c ontrol 2. Recurrent L knee septic arthritis. ID consult. IV vancomycin 3. Hx DVT/PE. Continue xarelto 4. GERD. Continue protonix 5. Hx alcoholism
[2019-07-10] MEDS ORDERED: SODIUM CHLORIDE 0.65% NASAL SPRAY 44 ML BTL NASAL PRN (15:00)
[2019-07-10] MEDS ORDERED: COLLOIDAL OATMEAL TOPICAL PRN (15:00)
[2019-07-10] MEDS ORDERED: DOCUSATE 100 MG CAP PO PRN (15:00)
[2019-07-10] MEDS ORDERED: IPRATROPIUM-ALBUTEROL 3 ML NEB INHALATION PRN (15:00)
[2019-07-10] MEDS: ACETAMINOPHEN TAB 500 MG TAB PO SCH ×2 (15:13→22:39)
[2019-07-10] MEDS: ALPRAZolam 1 MG TAB PO PRN ×2 (15:15→21:03)
[2019-07-10] MEDS: SUCRALFATE 1 GM TAB PO SCH ×2 (17:02→21:03)
[2019-07-10] MEDS ORDERED: RIVAROXABAN 20 MG TAB PO SCH (17:30)
[2019-07-10] MEDS ORDERED: VANCOMYCIN 1,000 MG in SODIUM CHLORIDE 0.9% 250 ML IVPB SCH (21:00)
--- NOTE | 2019-07-10 23:25 | P.CONS ---
History of Present Illness - Reason for Consult Consult date: 07/10/19 Left knee septic arthritis Requesting physician: Reggie Edward - Chief Complaint Left hip pain swelling and redness x 1 day - History of Present Illness Patient is a 59 year old male with past medical history significant for recurrent MRSA left knee infection in this patient who did have multiple surgeries on his left knee and has been treated with multiple courses of antibiotic therapy, patient recently has been managed by orthopedics out of [facility] and his last surgery has been on 06/20/2019 with the patient did have placement of antibiotic spacer, subsequent the patient has been transferred to [facility] for rehabilitation and IV antibiotic therapy, yesterday patient seemed to have more redness of the left knee and some drainage for which the patient was sent to [facility] ER for further management, on arrival to the ER the patient has been afebrile his white count has been normal, he did have lower extremity Doppler was negative for any DVT, x-rays of the knee shows cement and no evidence of any Osteomyelitis patient has been continued on vancomycin twice daily was consulted for further recommendatio n. Patient currently denies having high-grade fever or chills, the patient continue complaining of pain to the left knee area more of a delayed aching pain intensity about 5-10 and no radiation some controlled with pain medication patient left knee incision still have the stitches on, with some gapping which of the wound and minimal drainage but no purulence, infection disease was consulted for further management of antibiotic therapy Review of Systems Positive point has been mentioned in the HPI rest of the systems are negative Past Medical History Past Medical History: Deep Vein Thrombosis (DVT), GERD/Reflux, Osteoarthritis (OA), Pulmonary Embolus (PE), Seizure Disorder, Syncope Additional Past Medical History / Comment(s): Alcoholism, recent hospitalization for bilateral pulmonary embolism with clot occluding the left pulmonary artery and evidence of right ventricular strain pattern maintained on anticoagulation, COPD, chronic hypoxic respiratory failure, FEV1 of 51% of predicted with chronic hypoxic respiratory failure, chronic smoker carries more than on the PACU smoking history, alcoholism, history of delirium tremors, history of recurrent falls, history of rib fractures related to falls, GERD, diverticulosis, seizure disorder, osteoarthritis, history of small bowel obstruction secondary to incarcerated right inguinal hernia, History of Any Multi-Drug Resistant Organisms: MRSA Year Discovered:: 12/13/18 MDRO Source:: Knee Aspirate Past Surgical History: Orthopedic Surgery Additional Past Surgical History / Comment(s): Colonoscopies and polypectomies, 10/21/15 normal cardiac cath, multiple inguinal hernia surg., bilateral knee arthroscopies and pt states bilateral knee arthroplasties."had blood clots removed from lungs at [facility], i'not sure what they did". Knee surgery- 7 surgeries on the left knee Past Anesthesia/Blood Transfusion Reactions: No Reported Reaction Past Psychological History: Anxiety, Depression Additional Psychological History / Comment(s): . Lives independently. Elderly mother. Significant other with health concerns. Ongoing tobacco use. Relates no alcohol use since his last hospital stay. Smoking Status: Former smoker Past Alcohol Use History: Occasional Additional Past Alcohol Use History / Comment(s): Patient is a smoker of a half a pack of cigarettes per day since she was 14 years of age. pt has been residing in [facility] for abx txt and has been smoke free. He does have history of heavy alcohol use.He is . He lives independently. Past Drug Use History: None Reported Additional Drug Use History / Comment(s): Pt states in the past he had used cocaine but none for 20years. He denies ever abusing prescription drugs. - Past Family History Father Family Medical History: Coronary Artery Disease (CAD), Myocardial Infarction (PR ) Additional Family Medical History / Comment(s): Father of a PR at the age of 73 yrs. Mother Family Medical History: Cancer Additional Family Medical History / Comment(s): BREAST CA Medications and Allergies Home Medications Medication Instructions Recorded Confirmed Type Pantoprazole [Protonix] 40 mg PO DAILY@0800 05/06/18 07/10/19 History Rivaroxaban [Xarelto] 20 mg PO DAILY@0800 05/06/18 07/10/19 History Magnesium Oxide [Mag-Ox] 400 mg PO BID@0800,1600 07/19/18 07/10/19 History ALPRAZolam [Xanax] 1 mg PO Q6H PRN 07/10/19 07/10/19 History Acetaminophen Tab [Tylenol Tab] 1,000 mg PO Q8H 07/10/19 07/10/19 History Aspirin EC [Ecotrin Low Dose] 81 mg PO BID 07/10/19 07/10/19 History Celecoxib [CeleBREX] 200 mg PO BID@0800,159907/10/19 07/10/19 History Cephalexin [Keflex] 500 mg PO BID@0800,199907/10/19 07/10/19 History Colloidal Oatmeal [Eucerin Eczema 1 applic TOPICAL Q12H PRN 07/10/19 07/10/19 History Relief] Docusate [Colace] 100 mg PO Q12H PRN 07/10/19 07/10/19 History Ferrous Sulfate [Feosol] 325 mg PO BID@0800,1600 07/10/19 07/10/19 History Furosemide [Lasix] 40 mg PO DAILY@0800 07/10/19 07/10/19 History Heparin 100units/Ml 5 ml IV Q12H 07/10/19 07/10/19 History Ipratropium-Albuterol Nebulize 3 ml INHALATION RT-Q6H PRN 07/10/19 07/10/19 History [Duoneb 0.5 mg-3 mg/3 ml Soln] Lactobacillus Acidophilus 1 tab PO BID@0800,159907/10/19 07/10/19 History [Acidophilus] Miconazole Nitrate [Desenex] 1 applic TOPICAL Q12H PRN 07/10/19 07/10/19 History Midodrine [ProAmatine] 10 mg PO Q8H 07/10/19 07/10/19 History Multivitamins, Thera [Multivitamin 1 tab PO DAILY@0800 07/10/19 07/10/19 History (formulary)] Nasal Moisturizine [place] 1 spray EA NOSTRIL Q12H PRN 07/10/19 07/10/19 History Ondansetron [Zofran] 4 mg PO Q8H PRN 07/10/19 07/10/19 History Potassium Chloride ER [K-Dur 10] 10 meq PO BID@0800,1600 07/10/19 07/10/19 History S.boulardii/B.coagulans/Fos 942 mg PO BID@0800,1600 07/10/19 07/10/19 History [Diff-Stat 471 mg Capsule] Sodium Chloride Irrig Solution 10 ml IV Q12H 07/10/19 07/10/19 History [Saline 0.9% Irrigation] Sucralfate [Carafate] 1 gm PO QID 07/10/19 07/10/19 History Tamsulosin [Flomax] 0.4 mg PO DAILY@0800 07/10/19 07/10/19 History Vancomycin 1,000 mg IVPB HS@2000 07/10/19 07/10/19 History guaiFENesin [guaiFENesin Oral 200 mg PO QID 07/10/19 07/10/19 History Solution] oxyCODONE HCL [OxyIR] 10 mg PO Q6H PRN 07/10/19 07/10/19 History Allergies Allergy/AdvReac Type Severity Reaction Status Date / Time tramadol AdvReac Mild Itching Verified 07/10/19 11:57 Physical Exam Vitals: Vital Signs Temp Pulse Pulse Resp BP BP Pulse Ox 07/10/19 07:17 98.3 F 77 16 116/74 90 L 07/10/19 02:04 97.5 F L 69 18 116/79 96 07/10/19 00:47 98.9 F 69 18 120/90 95 07/09/19 21:58 97.1 F L 68 18 115/94 94 L Intake and Output 07/09/19 07/10/19 07/10/19 22:59 06:59 14:59 Other: Voiding Method Urinal Urinal # Voids 1 1 Weight 77.111 kg 77.111 kg GENERAL DESCRIPTION: Middle-aged male lying in bed, no distress. No tachypnea or accessory muscle of respiration use. HEENT: Shows Pallor , no scleral icterus. Oral mucous membrane is dry. No pharyngeal erythema or thrush NECK: Trachea central, no thyromegaly. LUNGS: Unlabored breathing. Clear to auscultation anteriorly. No wheeze or crackle. HEART: S1, S2, regular rate and rhythm. No loud murmur ABDOMEN: Soft, no tenderness , guarding or rigidity, no organomegaly EXTREMITIES: Left knee incision with stitches intact minimal gapping some swelling and no significant redness or foul-smelling drainage SKIN: No rash, no masses palpable. NEUROLOGICAL: The patient is awake, alert, oriented x3, mood and affect normal. Results CBC & Chem 7: 07/09/19 23:45 07/09/19 23:45 Labs: Abnormal Lab Results - Last 24 Hours (Table) 07/09/19 07/09/19 07/09/19 Range/Units 23:45 23:45 23:45 RBC 3.46 L (4.30-5.90) m/uL Hgb 9.3 L (13.0-17.5) gm/dL Hct 34.8 L (39.0-53.0) % MCV 100.6 H (80.0-100.0) fL MCHC 26.8 L (31.0-37.0) g/dL RDW 24.2 H (11.5-15.5) % Plt Count 598 H (150-450) k/uL Macrocytosis Marked A Chloride 110 H (98-107) mmol/L Carbon Dioxide 18 L (22-30) mmol/L BUN 25 H (9-20) mg/dL Creatinine 1.87 H (0.66-1.25) mg/dL Plasma Lactic Acid Chet 2.1 H* (0.7-2.0) mmol/L C-Reactive Protein 63.5 H (<10.0) mg/L Albumin 3.4 L (3.5-5.0) g/dL Assessment and Plan Assessment: 1-patient with recurrent left knee infection in this patient who did have multiple surgeries on the left knee culture has been positive for MRSA in this patient has been very noncompliant with his treatment as the patient has missed multiple office visit with me and apparently did a follow-up within the ID physician after his last surgery now admitted to the hospital with more swelling and redness of his left knee however the patient currently is not running a fever and did not have any elevated white count (1) Infection of total left knee replacement Current Visit: Yes Status: Acute Code(s): T84.54XA - INFECT/INFLM REACTION DUE TO INTERNAL LEFT KNEE PROSTH, INIT; Z96.652 - PRESENCE OF LEFT ARTIFICIAL KNEE JOINT SNOMED Code(s): 962417702 Plan: 1-Vancomycin pharmacy to dose target trough of 15 while watching his kidney function and Vanco trough closely 2-agree with transfer the patient to his surgeon at [facility] Will follow on a clinical condition and cultures to further adjust medication if needed Thank you for this consultation will follow this patient along with you Time with Patient: Greater than 30
[2019-07-11] MEDS ORDERED: VANCOMYCIN 1,000 MG in SODIUM CHLORIDE 0.9% 250 ML IVPB SCH (01:30)
[2019-07-11] MEDS: HYDROmorphone 0.5 MG/0.5 ML SYRINGE IVP PRN ×2 (01:56→07:42)
[2019-07-11] MEDS: ALPRAZolam 1 MG TAB PO PRN ×2 (02:42→07:47)
[2019-07-11] MEDS: SUCRALFATE 1 GM TAB PO SCH (07:46)
[2019-07-11] MEDS: PANTOPRAZOLE 40 MG TABLET PO SCH (07:47)
[2019-07-11] MEDS: ACETAMINOPHEN TAB 500 MG TAB PO SCH (07:48)
[2019-07-11] MEDS ORDERED: TAMSULOSIN 0.4 MG CAP.ER.24H PO SCH (08:00)
[2019-07-11 08:43] VITALS: BP 101/65; PULSE 80; RESP 20; TEMP 98
[2019-07-11] MEDS ORDERED: SENNOSIDES-DOCUSATE SODIUM 1 EACH TAB PO SCH (09:00)
== END 2019-07-11 10:50 | disposition short-term general hospital (02) | DRG 560 ==
LOC: EC 21:56 → 4SSUR 07-10 01:01
PROVIDERS: ADMIT Family Medicine; ATTEND Family Medicine
DX: T84.54XA Infection and inflammatory reaction due to internal left knee prosthesis, initial encounter (principal); J96.11 Chronic respiratory failure with hypoxia; M00.9 Pyogenic arthritis, unspecified; F17.210 Nicotine dependence, cigarettes, uncomplicated; F32.9 Major depressive disorder, single episode, unspecified; F41.9 Anxiety disorder, unspecified; G40.909 Epilepsy, unspecified, not intractable, without status epilepticus; J44.9 Chronic obstructive pulmonary disease, unspecified; K21.9 Gastro-esophageal reflux disease without esophagitis; K57.90 Diverticulosis of intestine, part unspecified, without perforation or abscess without bleeding; M19.90 Unspecified osteoarthritis, unspecified site; R29.6 Repeated falls; M25.571 Pain in right ankle and joints of right foot; F10.20 Alcohol dependence, uncomplicated; Z79.01 Long term (current) use of anticoagulants; Z79.1 Long term (current) use of non-steroidal anti-inflammatories (NSAID); Z79.899 Other long term (current) drug therapy; Z96.653 Presence of artificial knee joint, bilateral; Z91.19 Patient's noncompliance with other medical treatment and regimen; Z86.718 Personal history of other venous thrombosis and embolism; Z86.711 Personal history of pulmonary embolism; Z86.14 Personal history of Methicillin resistant Staphylococcus aureus infection; Z88.5 Allergy status to narcotic agent; Z86.010 Personal history of colon polyps; Z80.3 Family history of malignant neoplasm of breast; Z82.49 Family history of ischemic heart disease and other diseases of the circulatory system; Y79.2 Prosthetic and other implants, materials and accessory orthopedic devices associated with adverse incidents
CPT/HCPCS: 36415; 71046; 80053; 80202; 83605; 83880; 84484; 85025; 86140; 87040; 96360; 96361; 99285

== ENCOUNTER 2019-07-19 13:36 | Inpatient (IN) | payer MEDICARE ==
[2019-07-19] MEDS ORDERED: SODIUM CHLORIDE 0.9% 500 ML 500 ML IV SCH (14:15)
--- NOTE | 2019-07-19 14:21 | ED ---
General Adult HPI <DarnellchenteTrevor Rosmery - Last Filed: 07/19/19 15:28> - General Source: patient, EMS, RN notes reviewed, old records reviewed Mode of arrival: EMS Limitations: altered mental status <Nemesio Rodas - Last Filed: 07/19/19 17:43> - General Chief complaint: Recheck/Abnormal Lab/Rx Stated complaint: Infection Time Seen by Provider: 07/19/19 13:40 - History of Present Illness Initial comments: This is a 59-year-old male who presents to the emergency department has a very poor historian and somewhat agitated and initially was refusing to answer any questions. EMS stated that family called because he was drinking alcohol and was not taking his medications as he was supposed to and the family stated that they were not going to take care of him because he is able to take care of himself and he won't do so. Patient states it's not true but he does admit to drinking he states he's supposed be taking his antibiotics currently but because he is here he does not take them. We called the family family stated he is not doing good job taking care of himself he is drinking mixing it with opiates and not always taken his antibiotics. Patient's family states that a 1. Possible for me think he needs to go to a shelter. Patient has not had any fevers or chills. Patient denies any chest pain or abdominal pain patient denies any problems breathing. Patient states she slid out of chair today onto his butt but denies any injury. (Nemesio Rodas) - Related Data Home Medications Medication Instructions Recorded Confirmed Rivaroxaban [Xarelto] 20 mg PO DAILY 05/06/18 07/19/19 ALPRAZolam [Xanax] 1 mg PO Q6H PRN 07/10/19 07/19/19 Acetaminophen Tab [Tylenol Tab] 1,000 mg PO Q8H 07/10/19 07/19/19 Ferrous Sulfate [Feosol] 325 mg PO BID 07/10/19 07/19/19 Ipratropium-Albuterol Nebulize 3 ml INHALATION RT-QID 07/10/19 07/19/19 [Duoneb 0.5 mg-3 mg/3 ml Soln] Multivitamins, Thera [Multivitamin 1 tab PO DAILY 07/10/19 07/19/19 (formulary)] Potassium Chloride ER [K-Dur 10] 10 meq PO BID 07/10/19 07/19/19 Sucralfate [Carafate] 1 gm PO BID 07/10/19 07/19/19 Tamsulosin [Flomax] 0.4 mg PO DAILY 07/10/19 07/19/19 Vancomycin 1,000 mg IVPB DAILY 07/10/19 07/19/19 guaiFENesin [guaiFENesin Oral 200 mg PO Q6H PRN 07/10/19 07/19/19 Solution] oxyCODONE HCL [OxyIR] 5 mg PO Q8H PRN 07/10/19 07/19/19 Furosemide [Lasix] 20 mg PO BID 07/19/19 07/19/19 Gabapentin [Neurontin] 300 mg PO TID 07/19/19 07/19/19 L.acidoph,Paracasei, B.lactis 1 cap PO BID 07/19/19 07/19/19 [Probiotic] Levothyroxine Sodium [Synthroid] 25 mcg PO AC-BRKFST 07/19/19 07/19/19 Loperamide [Imodium] 2 mg PO Q6H PRN 07/19/19 07/19/19 Pantoprazole Sodium [Protonix] 20 mg PO BID 07/19/19 07/19/19 Polyethylene Glycol 3350 [Miralax] 17 gm PO DAILY PRN 07/19/19 07/19/19 Allergies Allergy/AdvReac Type Severity Reaction Status Date / Time tramadol AdvReac Mild Itching Verified 07/10/19 11:57 Review of Systems ROS Other: All systems not noted in ROS Statement are negative. <Trevor Winston - Last Filed: 07/19/19 15:28> ROS Other: All systems not noted in ROS Statement are negative. <Nemesio Rodas - Last Filed: 07/19/19 17:43> ROS Statement: Those systems with pertinent positive or pertinent negative responses have been documented in the HPI. Past Medical History Past Medical History: Deep Vein Thrombosis (DVT), GERD/Reflux, Osteoarthritis (OA), Pulmonary Embolus (PE), Seizure Disorder, Syncope Additional Past Medical History / Comment(s): Alcoholism, recent hospitalization for bilateral pulmonary embolism with clot occluding the left pulmonary artery and evidence of right ventricular strain pattern maintained on anticoagulation, COPD, chronic hypoxic respiratory failure, FEV1 of 51% of predicted with chronic hypoxic respiratory failure, chronic smoker carries more than on the PACU smoking history, alcoholism, history of delirium tremens, history of recurrent falls, history of rib fractures related to falls, GERD, diverticulosis, seizure disorder, osteoarthritis, history of small bowel obstruction secondary to incarcerated right inguinal hernia, History of Any Multi-Drug Resistant Organisms: MRSA Date of last positivie culture/infection: 12/13/18 MDRO Source:: Knee Aspirate Past Surgical History: Orthopedic Surgery Additional Past Surgical History / Comment(s): Colonoscopies and polypectomies, 10/21/15 normal cardiac cath, multiple inguinal hernia surg., bilateral knee arthroscopies and pt states bilateral knee arthroplasties."had blood clots removed from lungs at [facility], i'not sure what they did". Knee surgery- 7 surgeries on the left knee Past Anesthesia/Blood Transfusion Reactions: No Reported Reaction Past Psychological History: Anxiety, Depression Smoking Status: Current some day smoker Past Alcohol Use History: Occasional Past Drug Use History: None Reported - Past Family History Father Family Medical History: Coronary Artery Disease (CAD), Myocardial Infarction ([place]) Additional Family Medical History / Comment(s): Father of a [place] at the age of 73 yrs. Mother Family Medical History: Cancer Additional Family Medical History / Comment(s): BREAST CA <Nemesio Rodas - Last Filed: 07/19/19 17:43> General Exam Limitations: altered mental status <Nemesio Rodas - Last Filed: 07/19/19 17:43> - General Exam Comments Initial Comments: GENERAL: Patient is well-developed and well-nourished. Patient is nontoxic and well- hydrated and is in no acute distress. Patient is very tired and I had to shake him to wake him up. ENT: Neck is soft and supple. No significant lymphadenopathy is noted. Oropharynx is clear. Moist mucous membranes. Neck has full range of motion without eliciting any pain. EYES: The sclera were anicteric and conjunctiva were pink and moist. Extraocular movements were intact and pupils were equal round and reactive to light. Eyelids were unremarkable. PULMONARY: Unlabored respirations. Good breath sounds bilaterally. No audible rales rhonchi or wheezing was noted. CARDIOVASCULAR: There is a regular rate and rhythm without any murmurs gallops or rubs. ABDOMEN: Soft and nontender with normal bowel sounds. SKIN: Skin is clear with no lesions or rashes and otherwise unremarkable. NEUROLOGIC: Patient is alert and oriented x3. Cranial nerves II through XII are grossly intact. Motor and sensory are also intact. Normal speech, volume and content. Symmetrical smile. MUSCULOSKELETAL: Left leg has edema and there is a healing incision on the left knee it is covered with the pain he but the bandage does not have any erythema around it. LYMPHATICS: No significant lymphadenopathy is noted PSYCHIATRIC: Normal psychiatric evaluation. (Nemesio Rodas) Course Vital Signs 07/19/19 07/19/19 07/19/19 13:40 13:41 13:46 Temperature 98.8 F Pulse Rate 100 100 Respiratory 18 20 Rate Blood Pressure 124/73 124/73 124/73 O2 Sat by Pulse 94 L 93 L 95 Oximetry 07/19/19 07/19/19 07/19/19 14:00 14:30 14:46 Temperature Pulse Rate 100 Respiratory 20 Rate Blood Pressure 124/73 97/62 108/73 O2 Sat by Pulse 100 99 95 Oximetry 07/19/19 07/19/19 07/19/19 15:00 15:30 16:00 Temperature Pulse Rate Respiratory Rate Blood Pressure 108/75 108/75 108/75 O2 Sat by Pulse 99 100 Oximetry 07/19/19 07/19/19 16:30 17:00 Temperature Pulse Rate Respiratory Rate Blood Pressure 96/65 99/70 O2 Sat by Pulse 98 99 Oximetry Procedures <Trevor Winston - Last Filed: 07/19/19 15:28> - Procedures Initial comment: Ultrasound-guided 18-gauge peripheral IV in the right brachial. sterile technique was used. Patient tolerated procedure well. Needle was confirmed in the vein. There was good aspiration and no resistance with pushing fluids (Trevor Winston) Medical Decision Making - Lab Data Result diagrams: 07/19/19 15:30 07/19/19 15:30 <Nemesio Rodas - Last Filed: 07/19/19 17:43> - Medical Decision Making EKG shows sinus tachycardia at 103 bpm DC interval 144 QRS is 88 QT interval 366 QTC is 479. Patient has T-wave inversions in leads V1 through V4. Patient has no complaints of difficulty shortness of breath or chest pain I spoke with Dr. Dillon he agrees to admit the patient admitted the patient wrote admitting orders (Nemesio Rodas) - Lab Data Lab Results 07/19/19 07/19/19 07/19/19 Range/Units 14:45 15:30 15:30 WBC 11.9 H (3.8-10.6) k/uL RBC 4.05 L (4.30-5.90) m/uL Hgb 11.2 L (13.0-17.5) gm/dL Hct 38.9 L (39.0-53.0) % MCV 96.0 (80.0-100.0) fL MCH 27.7 (25.0-35.0) pg MCHC 28.9 L (31.0-37.0) g/dL RDW 20.8 H (11.5-15.5) % Plt Count 369 (150-450) k/uL Neutrophils % 77 % Lymphocytes % 10 % Monocytes % 8 % Eosinophils % 2 % Basophils % 1 % Neutrophils # 9.1 H (1.3-7.7) k/uL Lymphocytes # 1.2 (1.0-4.8) k/uL Monocytes # 1.0 (0-1.0) k/uL Eosinophils # 0.3 (0-0.7) k/uL Basophils # 0.1 (0-0.2) k/uL Hypochromasia Marked Poikilocytosis Slight Anisocytosis Moderate Macrocytosis Slight PT (9.0-12.0) sec INR (<1.2) APTT (22.0-30.0) sec Sodium 135 L (137-145) mmol/L Potassium 4.2 (3.5-5.1) mmol/L Chloride 99 (98-107) mmol/L Carbon Dioxide 25 (22-30) mmol/L Anion Gap 11 mmol/L BUN 12 (9-20) mg/dL Creatinine 0.93 (0.66-1.25) mg/dL Est GFR (CKD-EPI)AfAm >90 (>60 ml/min/1.73 sqM) Est GFR (CKD-EPI)NonAf 90 (>60 ml/min/1.73 sqM) Glucose 84 (74-99) mg/dL Plasma Lactic Acid Chet (0.7-2.0) mmol/L Calcium 9.0 (8.4-10.2) mg/dL Total Bilirubin 1.1 (0.2-1.3) mg/dL AST 29 (17-59) U/L ALT 8 (4-49) U/L Alkaline Phosphatase 125 (38-126) U/L Total Protein 6.7 (6.3-8.2) g/dL Albumin 3.5 (3.5-5.0) g/dL Urine Color Yellow Urine Appearance Clear (Clear) Urine pH 6.5 (5.0-8.0) Ur Specific Hooker 1.012 (1.001-1.035) Urine Protein Negative (Negative) Urine Glucose (UA) Negative (Negative) Urine Ketones 1+ H (Negative) Urine Blood Negative (Negative) Urine Nitrite Negative (Negative) Urine Bilirubin Negative (Negative) Urine Urobilinogen <2.0 (<2.0) mg/dL Ur Leukocyte Esterase Negative (Negative) Serum Alcohol <10 mg/dL 07/19/19 07/19/19 Range/Units 15:30 15:30 WBC (3.8-10.6) k/uL RBC (4.30-5.90) m/uL Hgb (13.0-17.5) gm/dL Hct (39.0-53.0) % MCV (80.0-100.0) fL MCH (25.0-35.0) pg MCHC (31.0-37.0) g/dL RDW (11.5-15.5) % Plt Count (150-450) k/uL Neutrophils % % Lymphocytes % % Monocytes % % Eosinophils % % Basophils % % Neutrophils # (1.3-7.7) k/uL Lymphocytes # (1.0-4.8) k/uL Monocytes # (0-1.0) k/uL Eosinophils # (0-0.7) k/uL Basophils # (0-0.2) k/uL Hypochromasia Poikilocytosis Anisocytosis Macrocytosis PT 12.8 H (9.0-12.0) sec INR 1.3 H (<1.2) APTT 28.2 (22.0-30.0) sec Sodium (137-145) mmol/L Potassium (3.5-5.1) mmol/L Chloride (98-107) mmol/L Carbon Dioxide (22-30) mmol/L Anion Gap mmol/L BUN (9-20) mg/dL Creatinine (0.66-1.25) mg/dL Est GFR (CKD-EPI)AfAm (>60 ml/min/1.73 sqM) Est GFR (CKD-EPI)NonAf (>60 ml/min/1.73 sqM) Glucose (74-99) mg/dL Plasma Lactic Acid Chet 1.0 (0.7-2.0) mmol/L Calcium (8.4-10.2) mg/dL Total Bilirubin (0.2-1.3) mg/dL AST (17-59) U/L ALT (4-49) U/L Alkaline Phosphatase (38-126) U/L Total Protein (6.3-8.2) g/dL Albumin (3.5-5.0) g/dL Urine Color Urine Appearance (Clear) Urine pH (5.0-8.0) Ur Specific Hook[place] (1.001-1.035) Urine Protein (Negative) Urine Glucose (UA) (Negative) Urine Ketones (Negative) Urine Blood (Negative) Urine Nitrite (Negative) Urine Bilirubin (Negative) Urine Urobilinogen (<2.0) mg/dL Ur Leukocyte Esterase (Negative) Serum Alcohol mg/dL Disposition <Trevor Winston - Last Filed: 07/19/19 15:28> Time of Disposition: 17:28 <Nemesio Rodas - Last Filed: 07/19/19 17:43> Clinical Impression: Noncompliance with medication regimen, Alcohol abuse, Septic joint Disposition: ADMITTED IP TO THIS HOSP Referrals: None,Stated [REFERRING] - 1-2 days
[2019-07-19 15:50] LABS: ALT 8 U/L (4-49); AST 29 U/L (17-59); African American GFR (CKD) >90 (>60 ml/min/1.73 sqM); Albumin 3.5 g/dL (3.5-5.0); Alcohol <10 mg/dL; Alkaline Phosphatase 125 U/L (38-126); Anion Gap 11 mmol/L; Anisocytosis Moderate; Basophils # (A) 0.1 k/uL (0-0.2); Basophils % (A) 1 %; Blood Urea Nitrogen 12 mg/dL (9-20); Carbon Dioxide 25 mmol/L (22-30); Chloride 99 mmol/L (98-107); Eosinophils # (A) 0.3 k/uL (0-0.7); Eosinophils % (A) 2 %; Glucose 84 mg/dL (74-99); HCT 38.9 % (39.0-53.0); HGB 11.2 gm/dL (13.0-17.5); Hypochromasia Marked; Lymphocytes # (A) 1.2 k/uL (1.0-4.8); Lymphocytes % (A) 10 %; MCH 27.7 pg (25.0-35.0); MCHC 28.9 g/dL (31.0-37.0); Macrocytosis Slight; Monocytes % (A) 8 %; Neutrophils # (A) 9.1 k/uL (1.3-7.7); Neutrophils % (A) 77 %; Non-African American GFR(CKD) 90 (>60 ml/min/1.73 sqM); Platelet Count 369 k/uL (150-450); Poikilocytosis Slight; Potassium 4.2 mmol/L (3.5-5.1); RBC 4.05 m/uL (4.30-5.90); RDW 20.8 % (11.5-15.5); Sodium 135 mmol/L (137-145); Total Bilirubin 1.1 mg/dL (0.2-1.3); Total Protein 6.7 g/dL (6.3-8.2); WBC 11.9 k/uL (3.8-10.6)
[2019-07-19 16:00] LABS: INR 1.3 (<1.2); Partial Thromboplastin Time 28.2 sec (22.0-30.0); Prothrombin Time 12.8 sec (9.0-12.0)
[2019-07-19 16:12] LABS: Appearance,Urine Clear (Clear); Bilirubin,Urine Negative (Negative); Blood,Urine Negative (Negative); Color,Urine Yellow; Glucose,Urine (UA) Negative (Negative); Ketones,Urine 1+ (Negative); Leukocyte Esterase,Urine Negative (Negative); Nitrite,Urine Negative (Negative); PH, Urine 6.5 (5.0-8.0); Protein,Urine Negative (Negative); Specific Gravity,Urine 1.012 (1.001-1.035); Urobilinogen,Urine <2.0 mg/dL (<2.0)
[2019-07-19] MEDS ORDERED: SODIUM CHLORIDE 0.9% 1,000 ML IV ONE (17:33)
[2019-07-19] MEDS ORDERED: VANCOMYCIN IV PER PHARMACY 1 EACH MISC MISCELLANE PRN (17:44)
[2019-07-19] MEDS ORDERED: VANCOMYCIN 1,250 MG in SODIUM CHLORIDE 0.9% 250 ML IVPB ONE (18:00)
[2019-07-19] MEDS ORDERED: VANCOMYCIN 1,000 MG in SODIUM CHLORIDE 0.9% 250 ML IVPB ONE (19:00)
[2019-07-19] MEDS ORDERED: POLYETHYLENE GLYCOL 3350 17 GM POWD.PACK PO PRN (20:42)
[2019-07-19] MEDS ORDERED: IPRATROPIUM-ALBUTEROL 3 ML NEB INHALATION PRN (20:48)
--- NOTE | 2019-07-19 21:27 | XR ---
EXAMINATION TYPE: XR chest 1V portable DATE OF EXAM: 07/19/2019 COMPARISON: 07/09/2019 HISTORY: Leg edema. TECHNIQUE: FINDINGS: There is a mild pulmonary interstitial edema. There is bilateral infiltrates at the lung ba ses. There are no hilar masses. Heart size is fairly normal. IMPRESSION: Increasing pulmonary interstitial edema compared to last exam could relate to acute conge stive heart failure. Pulmonary interstitial fibrosis is possible.
[2019-07-19] MEDS: FERROUS SULFATE 325 MG TAB PO SCH (21:36)
[2019-07-19] MEDS: GABAPENTIN 300 MG CAP PO SCH (21:36)
[2019-07-19] MEDS: FUROSEMIDE 20 MG TAB PO SCH (21:36)
[2019-07-19] MEDS: POTASSIUM CHLORIDE ER 10 MEQ TAB.ER.PRT PO SCH (21:36)
[2019-07-19] MEDS ORDERED: FUROSEMIDE 10 MG/ML 4 ML VIAL IV STA (21:51)
[2019-07-20] MEDS ORDERED: LORazepam 2 MG/ML INJ IV PRN ×2 (02:06)
[2019-07-20] MEDS: ACETAMINOPHEN TAB 500 MG TAB PO SCH ×4 (02:21→23:25)
[2019-07-20] MEDS: LORazepam 2 MG/ML INJ IV PRN ×2 (02:48→18:17)
[2019-07-20] MEDS ORDERED: IPRATROPIUM-ALBUTEROL 3 ML NEB INHALATION SCH (08:00)
[2019-07-20] MEDS ORDERED: BUDESONIDE 0.5 MG/2 ML NEBU INHALATION SCH (08:00)
--- NOTE | 2019-07-20 09:23 | P.CRDCN ---
History of Present Illness Consult date: 07/20/19 Requesting physician: Reggie Edward Consult reason: congestive heart failure History of present illness: This is a 59-year-old gentleman with significant history for chronic knee pain status post postoperative infection, COPD, history of DVT, prior GI bleed, pulmonary embolism, alcoholism, nicotine dependence, opiate use, seizure disorder, who was brought to the emergency room by EMS. Apparently the family called EMS because the patient was drinking significant amounts of alcohol and was not taking his medications or taking care of himself. Apparently on arrival here the patient was quite agitated and anxious. At the time of my evaluation this morning, patient does appear to have some tremors, he is answering questions however not all of them appropriately, he appears to be intermittently confused. The patient thinks that he's here because his knee hurts. EKG on arrival here shows a sinus tachycardia with ST-T wave changes noted in the anterior leads. Chest x-ray shows increasing pulmonary interstitial edema compared with prior. Blood pressure 116/60 with a heart rate in the 90s, 98% on 2 L of oxygen. White blood cell count 11.9, hemoglobin 11.2, platelet count 369. D-dimer 1.96, sodium 135, potassium 4.2, BUN 12, creatinine 0.9. BNP level 4330. Serum alcohol less than 10. According to the patient, he does feel short of breath, much more than his usual. A cardiology consultation was requested for congestive cardiac failure. Patient did receive a one-time dose of IV Lasix in the emergency room and is currently on oral diuretics. Past Medical History Past Medical History: Deep Vein Thrombosis (DVT), GERD/Reflux, Osteoarthritis (OA), Pulmonary Embolus (PE), Seizure Disorder, Syncope Additional Past Medical History / Comment(s): Alcoholism, recent hospitalization for bilateral pulmonary embolism with clot occluding the left pulmonary artery and evidence of right ventricular strain pattern maintained on anticoagulation, COPD, chronic hypoxic respiratory failure, FEV1 of 51% of predicted with chronic hypoxic respiratory failure, chronic smoker carries more than on the PACU smoking history, alcoholism, history of delirium tremens, history of recurrent falls, history of rib fractures related to falls, GERD, diverticulosis, seizure disorder, osteoarthritis, history of small bowel obstruction secondary to incarcerated right inguinal hernia, History of Any Multi-Drug Resistant Organisms: MRSA Date of last positivie culture/infection: 12/13/18 MDRO Source:: Knee Aspirate Past Surgical History: Orthopedic Surgery Additional Past Surgical History / Comment(s): Colonoscopies and polypectomies, 10/21/15 normal cardiac cath, multiple inguinal hernia surg., bilateral knee arthroscopies and pt states bilateral knee arthroplasties."had blood clots removed from lungs at [facility], i'not sure what they did". Knee surgery- 7 surgeries on the left knee Past Anesthesia/Blood Transfusion Reactions: No Reported Reaction Past Psychological History: Anxiety, Depression Additional Psychological History / Comment(s): . Lives independently. Elderly mother. Significant other with health concerns. Ongoing tobacco use. Relates no alcohol use since his last hospital stay. Smoking Status: Current some day smoker Past Alcohol Use History: Occasional Additional Past Alcohol Use History / Comment(s): Patient is a smoker of a half a pack of cigarettes per day since he was 14 years of age.. He does have history of heavy alcohol use. He is . He lives independently. Past Drug Use History: None Reported Additional Drug Use History / Comment(s): Pt states in the past he had used cocaine but none for 20 years. He denies ever abusing prescription drugs. - Past Family History Father Family Medical History: Coronary Artery Disease (CAD), Myocardial Infarction ([place]) Additional Family Medical History / Comment(s): Father of a [place] at the age of 73 yrs. Mother Family Medical History: Cancer Additional Family Medical History / Comment(s): BREAST CA Medications and Allergies Home Medications Medication Instructions Recorded Confirmed Type Rivaroxaban [Xarelto] 20 mg PO DAILY 05/06/18 07/19/19 History ALPRAZolam [Xanax] 1 mg PO Q6H PRN 07/10/19 07/19/19 History Acetaminophen Tab [Tylenol Tab] 1,000 mg PO Q8H 07/10/19 07/19/19 History Ferrous Sulfate [Feosol] 325 mg PO BID 07/10/19 07/19/19 History Ipratropium-Albuterol Nebulize 3 ml INHALATION RT-QID 07/10/19 07/19/19 History [Duoneb 0.5 mg-3 mg/3 ml Soln] Multivitamins, Thera [Multivitamin 1 tab PO DAILY 07/10/19 07/19/19 History (formulary)] Potassium Chloride ER [K-Dur 10] 10 meq PO BID 07/10/19 07/19/19 History Sucralfate [Carafate] 1 gm PO BID 07/10/19 07/19/19 History Tamsulosin [Flomax] 0.4 mg PO DAILY 07/10/19 07/19/19 History Vancomycin 1,000 mg IVPB DAILY 07/10/19 07/19/19 History guaiFENesin [guaiFENesin Oral 200 mg PO Q6H PRN 07/10/19 07/19/19 History Solution] oxyCODONE HCL [OxyIR] 5 mg PO Q8H PRN 07/10/19 07/19/19 History Furosemide [Lasix] 20 mg PO BID 07/19/19 07/19/19 History Gabapentin [Neurontin] 300 mg PO TID 07/19/19 07/19/19 History L.acidoph,Paracasei, B.lactis 1 cap PO BID 07/19/19 07/19/19 History [Probiotic] Levothyroxine Sodium [Synthroid] 25 mcg PO AC-BRKFST 07/19/19 07/19/19 History Loperamide [Imodium] 2 mg PO Q6H PRN 07/19/19 07/19/19 History Pantoprazole Sodium [Protonix] 20 mg PO BID 07/19/19 07/19/19 History Polyethylene Glycol 3350 [Miralax] 17 gm PO DAILY PRN 07/19/19 07/19/19 History Allergies Allergy/AdvReac Type Severity Reaction Status Date / Time tramadol AdvReac Mild Itching Verified 07/10/19 11:57 Physical Exam Vitals: Vital Signs Temp Pulse Pulse Resp BP BP Pulse Ox 07/19/19 21:57 38 H 07/19/19 21:25 84 07/19/19 21:17 84 07/19/19 20:58 98.4 F 91 36 H 117/64 98 07/19/19 18:48 98.1 F 54 L 18 131/78 99 07/19/19 18:08 16 07/19/19 17:00 99/70 99 07/19/19 16:30 96/65 98 07/19/19 16:00 108/75 100 02/26/20 15:30 108/75 07/19/19 15:00 108/75 99 07/19/19 14:46 100 20 108/73 95 07/19/19 14:30 97/62 99 07/19/19 14:00 124/73 100 07/19/19 13:46 100 20 124/73 95 07/19/19 13:41 124/73 93 L 07/19/19 13:40 98.8 F 100 18 124/73 94 L Intake and Output 07/19/19 07/20/19 07/20/19 22:59 06:59 14:59 Intake Total 150 Output Total 300 650 Balance -150 -650 Intake: Intake, IV Titration 150 Amount Sodium Chloride 0.9% 1, 150 000 ml @ 75 mls/hr IV . [id number] ONE Rx#:[id number] Output: Urine 300 650 Other: Voiding Method Urinal Weight 70.307 kg PHYSICAL EXAMINATION: GENERAL: 59-year-old gentleman in no acute distress at the time of my examination HEENT: Head is atraumatic, normocephalic. Pupils equal, round. Sclera anicteric. Conjunctiva are clear. Mucous membranes of the mouth are moist. Neck is supple. There is no elevated jugular venous pressure. No carotid bruit is heard. HEART EXAMINATION: Heart S1, S2 normal. No murmur or gallop heard. CHEST EXAMINATION: Lungs are clear to auscultation and precussion. No chest wall tenderness is noted on palpation or with deep breathing. ABDOMEN: Soft, nontender. Bowel sounds are heard. No organomegaly noted. EXTREMITIES:[ 2+ peripheral pulses with trace evidence of peripheral edema , left knee incision with redness noted. NEUROLOGIC patient is awake, alert and oriented 2 . . Results 07/19/19 15:30 07/19/19 15:30 Cardiac Enzymes 07/19/19 Range/Units 15:30 AST 29 (17-59) U/L Coagulation 07/19/19 Range/Units 15:30 PT 12.8 H (9.0-12.0) sec APTT 28.2 (22.0-30.0) sec CBC 07/19/19 Range/Units 15:30 WBC 11.9 H (3.8-10.6) k/uL RBC 4.05 L (4.30-5.90) m/uL Hgb 11.2 L (13.0-17.5) gm/dL Hct 38.9 L (39.0-53.0) % Plt Count 369 (150-450) k/uL Comprehensive Metabolic Panel 07/19/19 Range/Units 15:30 Sodium 135 L (137-145) mmol/L Potassium 4.2 (3.5-5.1) mmol/L Chloride 99 (98-107) mmol/L Carbon Dioxide 25 (22-30) mmol/L BUN 12 (9-20) mg/dL Creatinine 0.93 (0.66-1.25) mg/dL Glucose 84 (74-99) mg/dL Calcium 9.0 (8.4-10.2) mg/dL AST 29 (17-59) U/L ALT 8 (4-49) U/L Alkaline Phosphatase 125 (38-126) U/L Total Protein 6.7 (6.3-8.2) g/dL Albumin 3.5 (3.5-5.0) g/dL Current Medications Generic Name Dose Route Start Last Admin Trade Name Freq PRN Reason Stop Dose Admin Acetaminophen 1,000 mg 07/20/19 00:00 07/20/19 02:21 Tylenol Tab PO Not Given Q8HR ALVA Albuterol/Ipratropium 3 ml 07/20/19 08:00 07/20/19 08:34 Duoneb 0.5 Mg-3 Mg/3 Ml Soln INHALATION 3 ml RT-QID ALVA Administration Albuterol/Ipratropium 3 ml 07/19/19 20:48 07/19/19 21:17 Duoneb 0.5 Mg-3 Mg/3 Ml Soln INHALATION 3 ml RT-Q4H PRN Administration Shortness Of Breath Or Wheezing Budesonide 0.5 mg 07/20/19 08:00 07/20/19 08:34 Pulmicort INHALATION 0.5 mg RT-BID ALVA Administration Ferrous Sulfate 325 mg 07/19/19 21:00 07/19/19 21:36 Feosol PO 325 mg BID ALVA Administration Furosemide 20 mg 07/19/19 21:00 07/19/19 21:36 Lasix PO 20 mg BID ALVA Administration Gabapentin 300 mg 07/19/19 22:00 07/19/19 21:36 Neurontin PO 300 mg TID ALVA Administration Vancomycin HCl 1,000 mg/ 250 mls @ 125 mls/hr 07/20/19 19:00 Sodium Chloride IVPB Q24H ALVA Levothyroxine Sodium 25 mcg 07/20/19 06:30 Synthroid PO 0630 ALVA Lorazepam 1 mg 07/20/19 02:06 07/20/19 02:48 Ativan IV 1 mg Q2HR PRN Administration CIWA 8 or 9 Lorazepam 1 mg 07/20/19 02:06 Ativan IV Q1HR PRN CIWA 10 to 15 Lorazepam 2 mg 07/20/19 02:06 Ativan IV 07/22/19 02:06 Q10M PRN CIWA 16 or higher Miscellaneous Information 0 each 07/20/19 18:00 Vancomycin Trough Due MISCELLANE 07/20/19 18:01 DIRECTED ONE Multivitamins 1 each 07/20/19 09:00 Theragran PO DAILY [facility] Oxycodone HCl 5 mg 07/19/19 20:42 Oxyir PO Q8H PRN Pain Polyethylene Glycol 17 gm 07/19/19 20:42 Miralax PO DAILY PRN Constipation Potassium Chloride 10 meq 07/19/19 21:00 07/19/19 21:36 K-Dur 10 PO 10 meq BID ALVA Administration Rivaroxaban 20 mg 07/20/19 09:00 Xarelto PO DAILY [facility] Tamsulosin HCl 0.4 mg 07/20/19 09:00 Flomax PO DAILY ALVA Thiamine HCl 100 mg 07/20/19 17:30 Vitamin B-1 PO BID-W/MEALS ALVA Intake and Output 07/19/19 07/20/19 07/20/19 22:59 06:59 14:59 Intake Total 150 Output Total 300 650 Balance -150 -650 Intake: Intake, IV Titration 150 Amount Sodium Chloride 0.9% 1, 150 000 ml @ 75 mls/hr IV . [id number] ONE Rx#:[id number] Output: Urine 300 650 Other: Voiding Method Urinal Weight 70.307 kg 07/19/19 15:30 07/19/19 15:30 EKG Interpretations (text) EKG shows sinus tachycardia with ST-T wave changes noted in the anterior leads Assessment and Plan Plan: Assessment and plan #1 congestive heart failure, diastolic acute on chronic. 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 Repeat his chest x-ray in the morning. Repeat echocardiogram with Doppler study. Patient's d-dimer just came back elevated at 1.9, according to the family, the patient has not been taking his medication regularly, we would recommend the patient undergo a CT of the chest to rule out recurrent pulmonary embolism. Further recommendations to follow. DNP note has been reviewed, I agree with a documented findings and plan of care. Patient was seen and examined.
[2019-07-20] MEDS ORDERED: IPRATROPIUM-ALBUTEROL 3 ML NEB INHALATION PRN (10:27)
--- NOTE | 2019-07-20 10:27 | P.CNPUL ---
History of Present Illness Consult date: 07/20/19 Reason for consult: dyspnea, cough, other Chief complaint: Falls, weakness, pain, cough, congestion History of present illness: 59-year-old male patient of Dr. 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 Other medical history includes GERD/reflux, osteoarthritis, chronic alcoholism with history of acute alcohol withdrawal and delirium tremens, history of recurrent falls and rib fractures related to falls, history of GI bleeding, seizure disorder, bowel obstruction secondary to inca rcerated right inguinal hernia. Patient presented to the hospital on O2 2019 for evaluation of altered mental status, patient was somewhat agitated, refusing to answer any questions. Mostly history was obtained from the chart, this morning patient is awake and alert, however irritable. Apparently EMS was called by the family for concerns of continued alcohol abuse and patient was not taking his medications as he was supposed to. He also had concerns of patient not taking good care of himself and concerns about mixing his opiates with alcohol and not taking his antibiotics. During my interview patient states that he fell off the chair yesterday and had difficulty getting up, he states he has pain all over and particularly in his left knee which has been ongoing for quite some time. he relates that he had some shortness of breath and some sternal chest discomfort but states that he has had that for years and that has not changed significantly. Denies any hemoptysis, does have chest congestion and some yellow phlegm production. He states he has been taking his blood thinners every day, denies any increased swelling in his left knee, which is currently in the leg immobilizer. Denies losing consciousness he states he just slid off the chair and could not get up. Denied any fever or chills. He was recently seen by orthopedic service on O2 2019 and was transferred to [facility] Dr. Yanes, it is unclear whether the patient was hospitalized but she is on IV vancomycin. Admission chest x-ray shows increasing pulmonary interstitial edema. he was given a dose of IV Lasix, and started on oral Lasix, he has been afebrile, hemodynamically stable, she is on 5 L of oxygen, and his pulse ox is around 93% he is very weak, congestive cough with production of thick yellow sputum, his IV vancomycin has been restarted. Lab work has been reviewed showing no significant leukocytosis, with white blood cell count of 11.9, hemoglobin of 11.2, d-dimer was elevated at 1.96, a CT angios of the chest is pending although patient denies noncompliance with his blood thinners. Serum sodium was 135, the rest of the electrolytes and renal profile are within normal limits, LFTs are within normal limits, plasma lactic acid is not elevated at 1.0, proBNP was 4330. Serum alcohol was less than 10, urinalysis showed 1+ ketones but no evidence of urinary tract infection. Review of Systems All systems: negative Constitutional: Reports weakness, Denies chills, Denies fever Eyes: denies blurred vision, denies pain Ears, nose, mouth and throat: Denies headache, Denies sore throat Cardiovascular: Reports chest pain, Denies shortness of breath Respiratory: Reports congestion, Reports cough with sputum, Reports dyspnea, Reports respiratory infections, Denies cough Gastrointestinal: Denies abdominal pain, Denies diarrhea, Denies nausea, Denies vomiting Musculoskeletal: Reports frequent falls, Reports gait dysfunction, Reports limitation of motion, Denies myalgias Musculoskeletal: left: knee pain Integumentary: Denies pruritus, Denies rash Neurological: Reports balance difficulties, Reports change in mentation, Reports confusion, Reports gait dysfunction, Reports lack of coordination, Reports weakness, Denies numbness Psychiatric: Reports confusion, Denies anxiety, Denies depression Endocrine: Denies fatigue, Denies weight change Past Medical History Past Medical History: Deep Vein Thrombosis (DVT), GERD/Reflux, Osteoarthritis (OA), Pulmonary Embolus (PE), Seizure Disorder, Syncope Additional Past Medical History / Comment(s): Alcoholism, recent hospitalization for bilateral pulmonary embolism with clot occluding the left pulmonary artery and evidence of right ventricular strain pattern maintained on anticoagulation, COPD, chronic hypoxic respiratory failure, FEV1 of 51% of predicted with chronic hypoxic respiratory failure, chronic smoker carries more than on the PACU smoking history, alcoholism, history of delirium tremens, history of recurrent falls, history of rib fractures related to falls, GERD, diverticulosis, seizure disorder, osteoarthritis, history of small bowel obstruction secondary to incarcerated right inguinal hernia, History of Any Multi-Drug Resistant Organisms: MRSA Date of last positivie culture/infection: 12/13/18 MDRO Source:: Knee Aspirate Past Surgical History: Orthopedic Surgery Additional Past Surgical History / Comment(s): Colonoscopies and polypectomies, 10/21/15 normal cardiac cath, multiple inguinal hernia surg., bilateral knee arthroscopies and pt states bilateral knee arthroplasties."had blood clots removed from lungs at [facility], i'not sure what they did". Knee surgery- 7 surgeries on the left knee Past Anesthesia/Blood Transfusion Reactions: No Reported Reaction Past Psychological History: Anxiety, Depression Additional Psychological History / Comment(s): . Lives independently. Elderly mother. Significant other with health concerns. Ongoing tobacco use. Relates no alcohol use since his last hospital stay. Smoking Status: Current some day smoker Past Alcohol Use History: Occasional Additional Past Alcohol Use History / Comment(s): Patient is a smoker of a half a pack of cigarettes per day since he was 14 years of age.. He does have history of heavy alcohol use. He is . He lives independently. Past Drug Use History: None Reported Additional Drug Use History / Comment(s): Pt states in the past he had used cocaine but none for 20 years. He denies ever abusing prescription drugs. - Past Family History Father Family Medical History: Coronary Artery Disease (CAD), Myocardial Infarction (ND) Additional Family Medical History / Comment(s): Father of a ND at the age of 73 yrs. Mother Family Medical History: Cancer Additional Family Medical History / Comment(s): BREAST CA Medications and Allergies Home Medications Medication Instructions Recorded Confirmed Type Rivaroxaban [Xarelto] 20 mg PO DAILY 05/06/18 07/19/19 History ALPRAZolam [Xanax] 1 mg PO Q6H PRN 07/10/19 07/19/19 History Acetaminophen Tab [Tylenol Tab] 1,000 mg PO Q8H 07/10/19 07/19/19 History Ferrous Sulfate [Feosol] 325 mg PO BID 07/10/19 07/19/19 History Ipratropium-Albuterol Nebulize 3 ml INHALATION RT-QID 07/10/19 07/19/19 History [Duoneb 0.5 mg-3 mg/3 ml Soln] Multivitamins, Thera [Multivitamin 1 tab PO DAILY 07/10/19 07/19/19 History (formulary)] Potassium Chloride ER [K-Dur 10] 10 meq PO BID 07/10/19 07/19/19 History Sucralfate [Carafate] 1 gm PO BID 07/10/19 07/19/19 History Tamsulosin [Flomax] 0.4 mg PO DAILY 07/10/19 07/19/19 History Vancomycin 1,000 mg IVPB DAILY 07/10/19 07/19/19 History guaiFENesin [guaiFENesin Oral 200 mg PO Q6H PRN 07/10/19 07/19/19 History Solution] oxyCODONE HCL [OxyIR] 5 mg PO Q8H PRN 07/10/19 07/19/19 History Furosemide [Lasix] 20 mg PO BID 07/19/19 07/19/19 History Gabapentin [Neurontin] 300 mg PO TID 07/19/19 07/19/19 History L.acidoph,Paracasei, B.lactis 1 cap PO BID 07/19/19 07/19/19 History [Probiotic] Levothyroxine Sodium [Synthroid] 25 mcg PO AC-BRKFST 07/19/19 07/19/19 History Loperamide [Imodium] 2 mg PO Q6H PRN 07/19/19 07/19/19 History Pantoprazole Sodium [Protonix] 20 mg PO BID 07/19/19 07/19/19 History Polyethylene Glycol 3350 [Miralax] 17 gm PO DAILY PRN 07/19/19 07/19/19 History Allergies Allergy/AdvReac Type Severity Reaction Status Date / Time tramadol AdvReac Mild Itching Verified 07/10/19 11:57 Physical Exam Vitals: Vital Signs Temp Pulse Pulse Resp BP BP Pulse Ox 07/20/19 08:55 80 07/20/19 08:37 86 07/19/19 21:57 38 H 07/19/19 21:25 84 07/19/19 21:17 84 07/19/19 20:58 98.4 F 91 36 H 117/64 98 07/19/19 18:48 98.1 F 54 L 18 131/78 99 07/19/19 18:08 16 07/19/19 17:00 99/70 99 07/19/19 16:30 96/65 98 07/19/19 16:00 108/75 100 07/19/19 15:30 108/75 07/19/19 15:00 108/75 99 07/19/19 14:46 100 20 108/73 95 07/19/19 14:30 97/62 99 07/19/19 14:00 124/73 100 07/19/19 13:46 100 20 124/73 95 07/19/19 13:41 124/73 93 L 07/19/19 13:40 98.8 F 100 18 124/73 94 L Intake and Output 07/19/19 07/20/19 07/20/19 22:59 06:59 14:59 Intake Total 150 120 Output Total 300 650 Balance -150 -650 120 Intake: Intake, IV Titration 150 Amount Sodium Chloride 0.9% 1, 150 000 ml @ 75 mls/hr IV . [id number] ONE Rx#:[id number] Oral 120 Output: Urine 300 650 Other: Voiding Method Urinal # Voids 1 Weight 70.307 kg GENERAL EXAM: Alert, thin-looking 59-year-old white male, irritable with conversation, currently on 5 L of oxygen with a pulse ox of 93%, and moderate amount of generalized discomfort patient states he has pain all over following his fall at home, including in his left knee HEAD: Normocephalic/atraumatic. EYES: Normal reaction of pupils, equal size. Conjunctiva pink, sclera white. NOSE: Clear with pink turbinates. THROAT: No erythema or exudates. NECK: No masses, no JVD, no thyroid enlargement, no adenopathy. CHEST: No chest wall deformity. Symmetrical expansion. LUNGS: Diminished air entry with scattered rhonchi, and some expiratory wheezes, frequent congested cough with production of large amount of yellow sputum CVS: Regular rate and rhythm, normal S1 and S2, no gallops, no murmurs, no rubs ABDOMEN: Soft, nontender. No hepatosplenomegaly, normal bowel sounds, no guarding or rigidity. EXTREMITIES: No clubbing, improving lower extremity edema with some wrinkles in his lower extremities, chronic changes of venous stasis, no cyanosis, 2+ pulses and upper and lower extremities. MUSCULOSKELETAL: Muscle strength and tone normal. SPINE: No scoliosis or deformity SKIN: Left leg immobilizer in place CENTRAL NERVOUS SYSTEM: Alert and oriented -2. No focal deficits, tone is normal in all 4 extremities. PSYCHIATRIC: Alert and oriented -2. Irritable, he states he has not drank in a while, and she states he only drinks one or 2 beers occasionally Results - Laboratory Findings CBC and BMP: 07/19/19 15:30 07/19/19 15:30 ABG WBC 11.9 k/uL (3.8-10.6) H 07/19/19 15:30 RBC 4.05 m/uL (4.30-5.90) L 07/19/19 15:30 Hgb 11.2 gm/dL (13.0-17.5) L 07/19/19 15:30 Hct 38.9 % (39.0-53.0) L 07/19/19 15:30 MCV 96.0 fL (80.0-100.0) 07/19/19 15:30 MCH 27.7 pg (25.0-35.0) 07/19/19 15:30 MCHC 28.9 g/dL (31.0-37.0) L 07/19/19 15:30 RDW 20.8 % (11.5-15.5) H 07/19/19 15:30 Plt Count 369 k/uL (150-450) 07/19/19 15:30 Neutrophils % 77 % 07/19/19 15:30 Lymphocytes % 10 % 07/19/19 15:30 Monocytes % 8 % 07/19/19 15:30 Eosinophils % 2 % 07/19/19 15:30 Basophils % 1 % 07/19/19 15:30 Neutrophils # 9.1 k/uL (1.3-7.7) H 07/19/19 15:30 Lymphocytes # 1.2 k/uL (1.0-4.8) 07/19/19 15:30 Monocytes # 1.0 k/uL (0-1.0) 07/19/19 15:30 Eosinophils # 0.3 k/uL (0-0.7) 07/19/19 15:30 Basophils # 0.1 k/uL (0-0.2) 07/19/19 15:30 Hypochromasia Marked 07/19/19 15:30 Poikilocytosis Slight 07/19/19 15:30 Anisocytosis Moderate 07/19/19 15:30 Macrocytosis Slight 07/19/19 15:30 PT 12.8 sec (9.0-12.0) H 07/19/19 15:30 INR 1.3 (<1.2) H 07/19/19 15:30 APTT 28.2 sec (22.0-30.0) 07/19/19 15:30 D-Dimer 1.96 mg/L FEU (<0.60) H 07/19/19 23:02 Sodium 135 mmol/L (137-145) L 07/19/19 15:30 Potassium 4.2 mmol/L (3.5-5.1) 07/19/19 15:30 Chloride 99 mmol/L (98-107) 07/19/19 15:30 Carbon Dioxide 25 mmol/L (22-30) 07/19/19 15:30 Anion Gap 11 mmol/L 07/19/19 15:30 BUN 12 mg/dL (9-20) 07/19/19 15:30 Creatinine 0.93 mg/dL (0.66-1.25) 07/19/19 15:30 Est GFR (CKD-EPI)AfAm >90 (>60 ml/min/1.73 sqM) 07/19/19 15:30 Est GFR (CKD-EPI)NonAf 90 (>60 ml/min/1.73 sqM) 07/19/19 15:30 Glucose 84 mg/dL (74-99) 07/19/19 15:30 Plasma Lactic Acid Chet 1.0 mmol/L (0.7-2.0) 07/19/19 15:30 Calcium 9.0 mg/dL (8.4-10.2) 07/19/19 15:30 Total Bilirubin 1.1 mg/dL (0.2-1.3) 07/19/19 15:30 AST 29 U/L (17-59) 07/19/19 15:30 ALT 8 U/L (4-49) 07/19/19 15:30 Alkaline Phosphatase 125 U/L (38-126) 07/19/19 15:30 NT-Pro-B Natriuret Pep 4330 pg/mL 07/19/19 23:02 Total Protein 6.7 g/dL (6.3-8.2) 07/19/19 15:30 Albumin 3.5 g/dL (3.5-5.0) 07/19/19 15:30 Urine Color Yellow 07/19/19 14:45 Urine Appearance Clear (Clear) 07/19/19 14:45 Urine pH 6.5 (5.0-8.0) 07/19/19 14:45 Ur Specific [place] 1.012 (1.001-1.035) 07/19/19 14:45 Urine Protein Negative (Negative) 07/19/19 14:45 Urine Glucose (UA) Negative (Negative) 07/19/19 14:45 Urine Ketones 1+ (Negative) H 07/19/19 14:45 Urine Blood Negative (Negative) 07/19/19 14:45 Urine Nitrite Negative (Negative) 07/19/19 14:45 Urine Bilirubin Negative (Negative) 07/19/19 14:45 Urine Urobilinogen <2.0 mg/dL (<2.0) 07/19/19 14:45 Ur Leukocyte Esterase Negative (Negative) 07/19/19 14:45 Serum Alcohol <10 mg/dL 07/19/19 15:30 PT/INR, D-dimer PT 12.8 sec (9.0-12.0) H 07/19/19 15:30 INR 1.3 (<1.2) H 07/19/19 15:30 D-Dimer 1.96 mg/L FEU (<0.60) H 07/19/19 23:02 Abnormal lab findings: Abnormal Labs 07/19/19 07/19/19 07/19/19 14:45 15:30 15:30 WBC 11.9 H RBC 4.05 L Hgb 11.2 L Hct 38.9 L MCHC 28.9 L RDW 20.8 H Neutrophils # 9.1 H PT INR D-Dimer Sodium 135 L Urine Ketones 1+ H 07/19/19 07/19/19 15:30 23:02 WBC RBC Hgb Hct MCHC RDW Neutrophils # PT 12.8 H INR 1.3 H D-Dimer 1.96 H Sodium Urine Ketones - Diagnostic Findings Chest x-ray: report reviewed, image reviewed Assessment and Plan Plan: Assessment: #1. Acute on chronic hypoxic respiratory failure related to mild exacerbation of COPD and mild fluid overload later to acute exacerbation of CHF with p reviously documented preserved EF of 55% #2. Elevated d-dimer of 1.92, CT angios chest is pending, patient is on Xarelto, however it is not clear if he was compliant with it #3. 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 Left total knee arthroplasty status post MRSA infections, that is post revision and removal of hardware and placement of antibiotic spacer #5. Altered mental status, possibly related to acute alcohol withdrawal #6. History of alcohol abuse with history of acute alcohol withdrawal and delirium tremens #7. History of DVT and pulmonary embolism with right ventricular strain status post thrombectomy in November 2018, on chronic anticoagulation with Xarelto. Patient also has a history of IVC filter placement #8. Recurrent falls at home, gait dysfunction #9. COPD, baseline FEV1 of 51% of predicted, stage 2, with chronic hypoxic respiratory failure #10. Chronic smoker #11. Seizure disorder #12. History of GI bleeding, patient had a EGD in February 2018 which showed linear erosions or ulcerations in the mid and distal esophagus, esophagitis and moderate size hiatal hernia #13. Anxiety/depression Plan: Continue oral Lasix, chest x-ray has been reviewed and is consistent with mild fluid overload, interstitial edema. We'll continue breathing treatments, send a sputum for analysis, patient is on IV vancomycin for left knee chronic septic arthritis. No significant leukocytosis, no fever or chills. Patient has been having recurrent falls and difficulty caring for himself at home. She denies ongoing alcohol abuse we will keep him on CIWA protocol, maintain safety precautions, ID service is following, cardiology is following, CT angios was completed. Continue oral anticoagulation. We'll continue to follow I performed a history & physical examination of the patient and discussed their management with my nurse practitioner, Yennifer Irby. I reviewed the nurse practitioner's note and agree with the documented findings and plan of care. Lung sounds are positive for diffuse rhonchi. The findings and the impression was discussed with the patient. I attest to the documentation by the nurse practitioner. Time with Patient: Greater than 30
--- NOTE | 2019-07-20 10:31 | CT ---
EXAMINATION TYPE: CT angio chest DATE OF EXAM: 07/20/2019 COMPARISON: CTA chest November 25, 2018 and older CTs HISTORY: Possible PE; History of PE CT DLP: 288.1 mGycm. Automated Exposure Control for Dose Reduction was Utilized. CONTRAST: CTA scan of the thorax is performed without and with IV Contrast, patient injected with 100 ml mL of Isovue 370, pulmonary embolism protocol. MIP Images are created on CT scanner and reviewed. FINDINGS: LUNGS: Background fairly severe underlying emphysematous change is redemonstrated. Exam is suboptimal as there is significant respiratory motion artifact limiting evaluation for subcentimeter nodules. T here is some dependent right basilar atelectasis and/or consolidation. There is trace right pleural e ffusion. No suspicious focal consolidation. No pneumothorax bilaterally. MEDIASTINUM: There is a suboptimal study with near equal contrast in right and left heart systems but no convincing CT evidence for acute pulmonary embolism. Enlarged pulmonary arteries consistent with underlying pulmonary hypertension redemonstrated. There are no greater than 1 cm hilar or mediastina l lymph nodes. No cardiomegaly or pericardial effusion is seen. OTHER: Spine is straightened on sagittal images. IMPRESSION: Suboptimal study without CT evidence for acute pulmonary embolism. Advanced emphysematous change without suspicious acute pulmonary process. Underlying pulmonary hypertension noted.
[2019-07-20] MEDS: POTASSIUM CHLORIDE ER 10 MEQ TAB.ER.PRT PO SCH ×2 (11:33→21:26)
[2019-07-20] MEDS: GABAPENTIN 300 MG CAP PO SCH ×3 (11:33→21:26)
[2019-07-20] MEDS: TAMSULOSIN 0.4 MG CAP.ER.24H PO SCH (11:33)
[2019-07-20] MEDS: RIVAROXABAN 20 MG TAB PO SCH (11:33)
[2019-07-20] MEDS: FERROUS SULFATE 325 MG TAB PO SCH ×2 (11:33→21:26)
[2019-07-20] MEDS: LEVOTHYROXINE 25 MCG TAB PO SCH (11:34)
[2019-07-20] MEDS: MULTIVITAMINS, THERA 1 EACH TAB PO SCH (11:34)
[2019-07-20] MEDS: FUROSEMIDE 10 MG/ML 4 ML VIAL IV SCH (11:34)
[2019-07-20] MEDS: IPRATROPIUM-ALBUTEROL 3 ML NEB INHALATION SCH ×3 (11:42→19:22)
[2019-07-20] MEDS: FUROSEMIDE 20 MG TAB PO SCH (12:57)
--- NOTE | 2019-07-20 17:00 | ECHOF ---
Referral Reason:chf MEASUREMENTS -------- HEIGHT: 172.7 cm WEIGHT: 70.3 kg BP: 96/75 IVSd: 1.2 cm (0.6 - 1.1) LVIDd: 4.5 cm (3.9 - 5.3) LVPWd: 0.9 cm (0.6 - 1.1) IVSs: 1.5 cm LVIDs: 3.0 cm LVPWs: 1.4 cm LA Diam: 3.6 cm (2.7 - 3.8) RVIDd: 3.8 cm (< 3.3) LAESV Index (A-L): 20.53 ml/m Ao Diam: 3.0 cm (2.0 - 3.7) AV Cusp: 2.0 cm (1.5 - 2.6) EPSS: 0.5 cm MV E Ej: 1.00 m/s MV DecT: 177 ms MV A Ej: 0.83 m/s MV E/A Ratio: 1.21 RAP: 5.00 mmHg RVSP: 55.49 mmHg MV EF SLOPE: 75.07 mm/s (70 - 150) MV EXCURSION: 17.57 mm (> 18.000) FINDINGS -------- Resting tachycardia (HR>100bpm). This was a technically good study. The left ventricular size is normal. There is borderline concentric left ventricular hypertrophy. Overall left ventricular systolic function is normal with, an EF between 60 - 65 %. The right ventricle is mild to moderately enlarged. Normal LA size by volume 22+/-6 ml/m2. The right atrium is mildly enlarged. Interatrial and interventricular septum intact. The aortic valve is trileaflet and appears structurally normal. The mitral valve leaflets are mildly thickened. There is trace mitral regurgitation. Moderate tricuspid regurgitation present. There is moderate to severe pulmonary hypertension. Trace/mild (physiologic) pulmonic regurgitation. The aortic root size is normal. Normal inferior vena cava with normal inspiratory collapse consistent with estimated right atrial pre ssure of 5 mmHg. There is no pericardial effusion. CONCLUSIONS -------- 1. Resting tachycardia (HR>100bpm). 2. This was a technically good study. 3. The left ventricular size is normal. 4. There is borderline concentric left ventricular hypertrophy. 5. Overall left ventricular systolic function is normal with, an EF between 60 - 65 %. 6. The right ventricle is mild to moderately enlarged. 7. Normal LA size by volume 22+/-6 ml/m2. 8. The right atrium is mildly enlarged. 9. Interatrial and interventricular septum intact. 10. The aortic valve is trileaflet and appears structurally normal. 11. The mitral valve leaflets are mildly thickened. 12. There is trace mitral regurgitation. 13. Moderate tricuspid regurgitation present. 14. There is moderate to severe pulmonary hypertension. 15. Trace/mild (physiologic) pulmonic regurgitation. 16. The aortic root size is normal. 17. Normal inferior vena cava with normal inspiratory collapse consistent with estimated right atrial pressure of 5 mmHg. 18. There is no pericardial effusion. [employer] SUPERVISOR: LISA Kirk
[2019-07-20] MEDS ORDERED: VANCOMYCIN TROUGH DUE 1 EACH MISC MISCELLANE ONE (18:00)
[2019-07-20] MEDS: THIAMINE 100 MG TAB PO SCH (18:13)
[2019-07-20] MEDS ORDERED: VANCOMYCIN 1,000 MG in SODIUM CHLORIDE 0.9% 250 ML IVPB SCH (19:00)
[2019-07-20] MEDS: BUDESONIDE 1 MG/2 ML NEBU INHALATION SCH (19:22)
--- NOTE | 2019-07-20 23:25 | P.HPIM ---
History of Present Illness H&P Date: 07/20/19 Chief Complaint: fall at home, septic knee Addy Villalpando is a 59 yo M with PMH of L knee septic arthritis, s/p multiple recent surgeries and on home vancomycin, COPD, alcoholism, history of DVT, prior GI bleed, pulmonary embolism, nicotine dependence, opiate use, seizure disorder, who was brought to the emergency room by EMS after pt fell out of his recliner at home. Pt was recently discharged from [facility] 2 days ago after recent procedure related to his L septic knee. Pt had not been taking care of himself at home, had been drinking a lot of alcohol and taking his norco in greater doses and more frequently then prescribed. Apparently he passed out in his chair so his mother called EMS. Pt was initially agitated in the ED, currently he complains mostly of his chronic knee pain. EKG on arrival here shows a sinus tachycardia with ST-T wave changes noted in the anterior leads. Chest x-ray shows increasing pulmonary interstitial edema compared with prior. Blood pressure 116/60 with a heart rate in the 90s, 98% on 2 L of oxygen. White blood cell count 11.9, hemoglobin 11.2, platelet count 369. D-dimer 1.96, sodium 135, potassium 4.2, BUN 12, creatinine 0.9. BNP level 4330. Serum alcohol less than 10. Review of Systems All systems: negative Constitutional: Reports malaise, Denies chills, Denies fever Eyes: denies blurred vision, denies pain Ears, nose, mouth and throat: Denies headache, Denies sore throat Cardiovascular: Reports dyspnea on exertion, Reports edema, Denies chest pain, Denies shortness of breath Respiratory: Denies cough Gastrointestinal: Denies abdominal pain, Denies diarrhea, Denies nausea, Denies vomiting Musculoskeletal: Reports gait dysfunction, Reports leg numbness/tingling, Reports limitation of motion, Reports muscle weakness, Denies myalgias Integumentary: Denies pruritus, Denies rash Neurological: Denies numbness, Denies weakness Psychiatric: Denies anxiety, Denies depression Endocrine: Denies fatigue, Denies weight change Past Medical History Past Medical History: Deep Vein Thrombosis (DVT), GERD/Reflux, Osteoarthritis (OA), Pulmonary Embolus (PE), Seizure Disorder, Syncope Additional Past Medical History / Comment(s): Alcoholism, recent hospitalization for bilateral pulmonary embolism with clot occluding the left pulmonary artery and evidence of right ventricular strain pattern maintained on anticoagulation, COPD, chronic hypoxic respiratory failure, FEV1 of 51% of predicted with chronic hypoxic respiratory failure, chronic smoker carries more than on the PACU smoking history, alcoholism, history of delirium tremens, history of recurrent falls, history of rib fractures related to falls, GERD, diverticulosis, seizure disorder, osteoarthritis, history of small bowel obstruction secondary to incarcerated right inguinal hernia, History of Any Multi-Drug Resistant Organisms: MRSA Date of last positivie culture/infection: 12/13/18 MDRO Source:: Knee Aspirate Past Surgical History: Orthopedic Surgery Additional Past Surgical History / Comment(s): Colonoscopies and polypectomies, 10/21/15 normal cardiac cath, multiple inguinal hernia surg., bilateral knee arthroscopies and pt states bilateral knee arthroplasties."had blood clots removed from lungs at [facility], i'not sure what they did". Knee surgery- 7 surgeries on the left knee Past Anesthesia/Blood Transfusion Reactions: No Reported Reaction Past Psychological History: Anxiety, Depression Additional Psychological History / Comment(s): . Lives independently. Elderly mother. Significant other with health concerns. Ongoing tobacco use. Relates no alcohol use since his last hospital stay. Smoking Status: Current some day smoker Past Alcohol Use History: Occasional Additional Past Alcohol Use History / Comment(s): Patient is a smoker of a half a pack of cigarettes per day since he was 14 years of age.. He does have history of heavy alcohol use. He is . He lives independently. Past Drug Use History: None Reported Additional Drug Use History / Comment(s): Pt states in the past he had used cocaine but none for 20 years. He denies ever abusing prescription drugs. - Past Family History Father Family Medical History: Coronary Artery Disease (CAD), Myocardial Infarction ([place]) Additional Family Medical History / Comment(s): Father of a [place] at the age of 73 yrs. Mother Family Medical History: Cancer Additional Family Medical History / Comment(s): BREAST CA Medications and Allergies Home Medications Medication Instructions Recorded Confirmed Type Rivaroxaban [Xarelto] 20 mg PO DAILY 05/06/18 07/19/19 History ALPRAZolam [Xanax] 1 mg PO Q6H PRN 07/10/19 07/19/19 History Acetaminophen Tab [Tylenol Tab] 1,000 mg PO Q8H 07/10/19 07/19/19 History Ferrous Sulfate [Feosol] 325 mg PO BID 07/10/19 07/19/19 History Ipratropium-Albuterol Nebulize 3 ml INHALATION RT-QID 07/10/19 07/19/19 History [Duoneb 0.5 mg-3 mg/3 ml Soln] Multivitamins, Thera [Multivitamin 1 tab PO DAILY 07/10/19 07/19/19 History (formulary)] Potassium Chloride ER [K-Dur 10] 10 meq PO BID 07/10/19 07/19/19 History Sucralfate [Carafate] 1 gm PO BID 07/10/19 07/19/19 History Tamsulosin [Flomax] 0.4 mg PO DAILY 07/10/19 07/19/19 History Vancomycin 1,000 mg IVPB DAILY 07/10/19 07/19/19 History guaiFENesin [guaiFENesin Oral 200 mg PO Q6H PRN 07/10/19 07/19/19 History Solution] oxyCODONE HCL [OxyIR] 5 mg PO Q8H PRN 07/10/19 07/19/19 History Furosemide [Lasix] 20 mg PO BID 07/19/19 07/19/19 History Gabapentin [Neurontin] 300 mg PO TID 07/19/19 07/19/19 History L.acidoph,Paracasei, B.lactis 1 cap PO BID 07/19/19 07/19/19 History [Probiotic] Levothyroxine Sodium [Synthroid] 25 mcg PO AC-BRKFST 07/19/19 07/19/19 History Loperamide [Imodium] 2 mg PO Q6H PRN 07/19/19 07/19/19 History Pantoprazole Sodium [Protonix] 20 mg PO BID 07/19/19 07/19/19 History Polyethylene Glycol 3350 [Miralax] 17 gm PO DAILY PRN 07/19/19 07/19/19 History Allergies Allergy/AdvReac Type Severity Reaction Status Date / Time tramadol AdvReac Mild Itching Verified 07/10/19 11:57 Physical Exam Vitals: Vital Signs Temp Pulse Pulse BP Pulse Ox 07/20/19 19:42 100 07/20/19 19:24 98 07/20/19 17:15 104 H 07/20/19 17:04 86 07/20/19 16:00 117 H 107/59 92 L 07/20/19 12:00 97.4 F L 104 H 132/76 96 07/20/19 11:55 84 07/20/19 11:45 84 07/20/19 08:55 80 07/20/19 08:37 86 07/20/19 08:00 84 95 Intake and Output 07/20/19 07/20/19 07/21/19 14:59 22:59 06:59 Intake Total 320 200 Balance 320 200 Intake: Oral 320 200 Other: # Voids 3 # Bowel Movements 1 General: well nourished, well developed, NAD. Vitals reviewed Eyes: PERRL, EOMI, conjunctiva normal HENT: normocephalic, mucus membranes moist Neck: supple, no JVD Lungs: normal respiratory effort, no wheezes or rales CV: Regular rate and rhythm, no murmur. Peripheral pulses 2+. 1+ edema marni Abdomen: soft, nondistended, no organomegaly MSK: tenderness throughout L knee Lymph: no cervical or axillary LAD Skin: warm and dry. L knee sutures in place Neuro: Alert and oriented. Limited insight. Mild resting tremor Results CBC & Chem 7: 07/19/19 15:30 07/19/19 15:30 Labs: Abnormal Lab Results - Last 24 Hours (Table) 07/19/19 Range/Units 23:02 D-Dimer 1.96 H (<0.60) mg/L FEU Microbiology - Last 24 Hours (Table) 07/19/19 15:30 Blood Culture - Preliminary Blood No Growth after 24 hours Thrombosis Risk Factor Assmnt - Choose All That Apply Any of the Below Risk Factors Present?: Yes Each Factor Represents 1 point: Abnormal pulmonary function (COPD), Age 41-60 years, Medical pt on bed rest, Sepsis (< 1month), Serious lung disease incl. pneumonia (< 1month) Each Risk Factor Represents 3 Points: Family history of DVT/PE, History of DVT/PE Thrombosis Risk Factor Assessment Total Risk Factor Score: 11 Thrombosis Risk Factor Assessment Level: High Risk Assessment and Plan (1) Acute exacerbation of CHF (congestive heart failure) Current Visit: Yes Status: Acute Code(s): I50.9 - HEART FAILURE, UNSPECIFIED SNOMED Code(s): 570139779 (2) ETOH abuse Current Visit: Yes Status: Acute Code(s): F10.10 - ALCOHOL ABUSE, UNCOMPLICATED SNOMED Code(s): 96478751 (3) Noncompliance with medication regimen Current Visit: Yes Status: Acute Code(s): Z91.14 - PATIENT'S OTHER NONCOMPLIANCE WITH MEDICATION REGIMEN SNOMED Code(s): 045367911 (4) Septic joint Current Visit: Yes Status: Acute Code(s): M00.9 - PYOGENIC ARTHRITIS, UNSPECIFIED SNOMED Code(s): 371081009 Plan: 1. L septic knee. Continue with IV vancomycin, pharmacy to dose. ID consult 2. Acute exacerbation of CHF. likely secondary to recent heavy beer use. IV lasix. Cardiology consultation 3. Pulmonary edema 4. COPD. Pulmonary consult. Duoenbs 5. Elevated D-dimer. Hx PE. Obtain CTA. Continue xarelto
--- NOTE | 2019-07-20 23:54 | P.CONS ---
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 in this patient who did have multiple surgeries done at this as well as outside facility , now surgery has been done at [facility] with the patient did have antibiotic spacer placement and the patient was supposed to be on IV vancomycin at home apparently the patient has not been very compliant with his IV medication and has been drinking heavily patient said that he fell out of his chair and was unable to get up hence he called the EMS who subsequently brought the patient to the [facility] ER on arrival to the ER the patient has been afebrile white count was mild elevated 11.9 kidney function has been normal urine was negative Vanco trough was 9.1 serum alcohol less than 10 patient did have blood cultures drawn chest x-ray increasing pulmonary interstitial edema patient has been admitted to the hospital infectious disease was consulted for further recommendation regarding antibiotic therapy. Review of Systems Positive point has been mentioned in HPI rest of the systems are negative Past Medical History Past Medical History: Deep Vein Thrombosis (DVT), GERD/Reflux, Osteoarthritis (OA), Pulmonary Embolus (PE), Seizure Disorder, Syncope Additional Past Medical History / Comment(s): Alcoholism, recent hospitalization for bilateral pulmonary embolism with clot occluding the left pulmonary artery and evidence of right ventricular strain pattern maintained on anticoagulation, COPD, chronic hypoxic respiratory failure, FEV1 of 51% of predicted with chronic hypoxic respiratory failure, chronic smoker carries more than on the PACU smoking history, alcoholism, history of delirium tremens, history of recurrent falls, history of rib fractures related to falls, GERD, diverticulosis, seizure disorder, osteoarthritis, history of small bowel obstruction secondary to incarcerated right inguinal hernia, History of Any Multi-Drug Resistant Organisms: MRSA Year Discovered:: 12/13/18 MDRO Source:: Knee Aspirate Past Surgical History: Orthopedic Surgery Additional Past Surgical History / Comment(s): Colonoscopies and polypectomies, 10/21/15 normal cardiac cath, multiple inguinal hernia surg., bilateral knee arthroscopies and pt states bilateral knee arthroplasties."had blood clots removed from lungs at [facility], i'not sure what they did". Knee surgery- 7 surgeries on the left knee Past Anesthesia/Blood Transfusion Reactions: No Reported Reaction Past Psychological History: Anxiety, Depression Additional Psychological History / Comment(s): . Lives independently. Elderly mother. Significant other with health concerns. Ongoing tobacco use. Relates no alcohol use since his last hospital stay. Smoking Status: Current some day smoker Past Alcohol Use History: Occasional Additional Past Alcohol Use History / Comment(s): Patient is a smoker of a half a pack of cigarettes per day since he was 14 years of age.. He does have history of heavy alcohol use. He is . He lives independently. Past Drug Use History: None Reported Additional Drug Use History / Comment(s): Pt states in the past he had used cocaine but none for 20 years. He denies ever abusing prescription drugs. - Past Family History Father Family Medical History: Coronary Artery Disease (CAD), Myocardial Infarction ([place]) Additional Family Medical History / Comment(s): Father of a [place] at the age of 73 yrs. Mother Family Medical History: Cancer Additional Family Medical History / Comment(s): BREAST CA Medications and Allergies Home Medications Medication Instructions Recorded Confirmed Type Rivaroxaban [Xarelto] 20 mg PO DAILY 05/06/18 07/19/19 History ALPRAZolam [Xanax] 1 mg PO Q6H PRN 07/10/19 07/19/19 History Acetaminophen Tab [Tylenol Tab] 1,000 mg PO Q8H 07/10/19 07/19/19 History Ferrous Sulfate [Feosol] 325 mg PO BID 07/10/19 07/19/19 History Ipratropium-Albuterol Nebulize 3 ml INHALATION RT-QID 07/10/19 07/19/19 History [Duoneb 0.5 mg-3 mg/3 ml Soln] Multivitamins, Thera [Multivitamin 1 tab PO DAILY 07/10/19 07/19/19 History (formulary)] Potassium Chloride ER [K-Dur 10] 10 meq PO BID 07/10/19 07/19/19 History Sucralfate [Carafate] 1 gm PO BID 07/10/19 07/19/19 History Tamsulosin [Flomax] 0.4 mg PO DAILY 07/10/19 07/19/19 History Vancomycin 1,000 mg IVPB DAILY 07/10/19 07/19/19 History guaiFENesin [guaiFENesin Oral 200 mg PO Q6H PRN 07/10/19 07/19/19 History Solution] oxyCODONE HCL [OxyIR] 5 mg PO Q8H PRN 07/10/19 07/19/19 History Furosemide [Lasix] 20 mg PO BID 07/19/19 07/19/19 History Gabapentin [Neurontin] 300 mg PO TID 07/19/19 07/19/19 History L.acidoph,Paracasei, B.lactis 1 cap PO BID 07/19/19 07/19/19 History [Probiotic] Levothyroxine Sodium [Synthroid] 25 mcg PO AC-BRKFST 07/19/19 07/19/19 History Loperamide [Imodium] 2 mg PO Q6H PRN 07/19/19 07/19/19 History Pantoprazole Sodium [Protonix] 20 mg PO BID 07/19/19 07/19/19 History Polyethylene Glycol 3350 [Miralax] 17 gm PO DAILY PRN 07/19/19 07/19/19 History Allergies Allergy/AdvReac Type Severity Reaction Status Date / Time tramadol AdvReac Mild Itching Verified 07/10/19 11:57 Physical Exam Vitals: Vital Signs Temp Pulse Pulse Resp BP BP Pulse Ox 07/20/19 08:55 80 07/20/19 08:37 86 07/19/19 21:57 38 H 07/19/19 21:25 84 07/19/19 21:17 84 07/19/19 20:58 98.4 F 91 36 H 117/64 98 07/19/19 18:48 98.1 F 54 L 18 131/78 99 07/19/19 18:08 16 07/19/19 17:00 99/70 99 07/19/19 16:30 96/65 98 07/19/19 16:00 108/75 100 07/19/19 15:30 108/75 07/19/19 15:00 108/75 99 07/19/19 14:46 100 20 108/73 95 07/19/19 14:30 97/62 99 07/19/19 14:00 124/73 100 07/19/19 13:46 100 20 124/73 95 07/19/19 13:41 124/73 93 L 07/19/19 13:40 98.8 F 100 18 124/73 94 L Intake and Output 07/19/19 07/20/19 07/20/19 22:59 06:59 14:59 Intake Total 150 Output Total 300 650 Balance -150 -650 Intake: Intake, IV Titration 150 Amount Sodium Chloride 0.9% 1, 150 000 ml @ 75 mls/hr IV . [id number] Rx#:[id number] Output: Urine 300 650 Other: Voiding Method Urinal Weight 70.307 kg GENERAL DESCRIPTION: Middle-aged male lying in bed, no distress. No tachypnea or accessory muscle of respiration use. HEENT: Shows Pallor , no scleral icterus. Oral mucous membrane is dry. NECK: Trachea central, no thyromegaly. LUNGS: Unlabored breathing. Clear to auscultation anteriorly. No wheeze or crackle. HEART: S1, S2, regular rate and rhythm. ABDOMEN: Soft, no tenderness , guarding or rigidity EXTREMITIES: Left knee incision did have stitches still intact minimal slough at the midline part of the incision there is some surrounding swelling but no redness or foul-smelling drainage. SKIN: No rash, no masses palpable. NEUROLOGICAL: The patient is awake, alert, oriented x3, mood and affect normal. Results CBC & Chem 7: 07/19/19 15:30 07/19/19 15:30 Labs: Abnormal Lab Results - Last 24 Hours (Table) 07/19/19 07/19/19 07/19/19 Range/Units 14:45 15:30 15:30 WBC 11.9 H (3.8-10.6) k/uL RBC 4.05 L (4.30-5.90) m/uL Hgb 11.2 L (13.0-17.5) gm/dL Hct 38.9 L (39.0-53.0) % MCHC 28.9 L (31.0-37.0) g/dL RDW 20.8 H (11.5-15.5) % Neutrophils # 9.1 H (1.3-7.7) k/uL PT (9.0-12.0) sec INR (<1.2) D-Dimer (<0.60) mg/L FEU Sodium 135 L (137-145) mmol/L Urine Ketones 1+ H (Negative) 07/19/19 07/19/19 Range/Units 15:30 23:02 WBC (3.8-10.6) k/uL RBC (4.30-5.90) m/uL Hgb (13.0-17.5) gm/dL Hct (39.0-53.0) % MCHC (31.0-37.0) g/dL RDW (11.5-15.5) % Neutrophils # (1.3-7.7) k/uL PT 12.8 H (9.0-12.0) sec INR 1.3 H (<1.2) D-Dimer 1.96 H (<0.60) mg/L FEU Sodium (137-145) mmol/L Urine Ketones (Negative) Assessment and Plan Assessment: -patient with recurrent infection of the left knee secondary to MRSA in this patient who did have multiple surgeries to the left knee with recent surgery done at [facility] in this patient who did have an antibiotic spacer placement.the patient has been able to hospital for unable to take care of himself drinking heavily and not taking his medication as prescribed, patient did have issues with noncompliance in the past (1) Infection of total left knee replacement Current Visit: No Status: Acute Code(s): T84.54XA - INFECT/INFLM REACTION DUE TO INTERNAL LEFT KNEE PROSTH, INIT; Z96.652 - PRESENCE OF LEFT ARTIFICIAL KNEE JOINT SNOMED Code(s): 906845108 Plan: 1-vancomycin pharmacy to dose her with a target trough of 15 while watching her kidney function and Vanco trough closely. 2-dry Aquacel dressing to the left knee incision to be changed every 48 hour 3-patient will likely benefit from placement, So he can complete his antibiotic therapy We will follow on clinical condition and cultures to further adjust medication if needed Thank you for this consultation we will follow the patient along with you Time with Patient: Greater than 30
[2019-07-21] MEDS: THIAMINE 100 MG TAB PO SCH ×2 (06:21→17:07)
[2019-07-21] MEDS: LEVOTHYROXINE 25 MCG TAB PO SCH (06:21)
[2019-07-21 07:23] LABS: African American GFR (CKD) >90 (>60 ml/min/1.73 sqM); Non-African American GFR(CKD) >90 (>60 ml/min/1.73 sqM)
[2019-07-21] MEDS: BUDESONIDE 1 MG/2 ML NEBU INHALATION SCH ×2 (08:48→20:34)
[2019-07-21] MEDS: IPRATROPIUM-ALBUTEROL 3 ML NEB INHALATION SCH ×4 (08:48→20:34)
[2019-07-21] MEDS: TAMSULOSIN 0.4 MG CAP.ER.24H PO SCH (09:08)
[2019-07-21] MEDS: ACETAMINOPHEN TAB 500 MG TAB PO SCH ×4 (09:11→23:54)
[2019-07-21] MEDS: FERROUS SULFATE 325 MG TAB PO SCH ×2 (09:12→20:30)
[2019-07-21] MEDS: FUROSEMIDE 10 MG/ML 4 ML VIAL IV SCH (09:12)
[2019-07-21] MEDS: RIVAROXABAN 20 MG TAB PO SCH (09:12)
[2019-07-21] MEDS: MULTIVITAMINS, THERA 1 EACH TAB PO SCH (09:12)
[2019-07-21] MEDS: POTASSIUM CHLORIDE ER 10 MEQ TAB.ER.PRT PO SCH ×2 (09:12→20:30)
[2019-07-21] MEDS: GABAPENTIN 300 MG CAP PO SCH ×3 (09:12→22:54)
[2019-07-21] MEDS: VANCOMYCIN 1,000 MG in SODIUM CHLORIDE 0.9% 250 ML IVPB SCH (12:39)
[2019-07-21] MEDS ORDERED: VANCOMYCIN 1,000 MG in SODIUM CHLORIDE 0.9% 250 ML IVPB SCH (13:00)
--- NOTE | 2019-07-21 15:04 | P.PN ---
Subjective Progress Note Date: 07/21/19 Principal diagnosis: Heart failure with preserved LV function This is a pleasant 59-year-old gentleman with heart failure with preserved LV function, history of DVT/PE on oral anticoagulation, as well as multiple comorbid conditions, was admitted to the hospital with heart failure exacerbation secondary to diastolic dysfunction. The echocardiogram revealed normal LV function with moderate TR and severe pulmonary hypertension. He was seen today, 07/21/2019. He stated that the shortness of breath is better if he still have mild bilateral lower extremity edema. He continues to be on Lasix IV and the creatinine continues to be stable without advice keeping the patient on IV Lasix for additional 24 hours function and electrolytes. Objective - Vital Signs Vital signs: Vital Signs Temp 99.2 F 07/21/19 11:52 Pulse 104 H 07/21/19 12:15 Resp 20 07/21/19 11:52 BP 100/61 07/21/19 11:52 Pulse Ox 97 07/21/19 11:52 Intake & Output 07/20/19 07/21/19 07/21/19 18:59 06:59 18:59 Intake Total 520 850 Output Total 1200 950 Balance 520 -1200 -100 Intake: IV 250 Vancomycin 1,000 mg In 250 Sodium Chloride 0.9% 250 ml @ 125 mls/hr IVPB Q16H [facility] Rx#:[id number] Oral 520 600 Output: Urine 1200 950 Other: Voiding Method Urinal Urinal # Voids 3 # Bowel Movements 1 - Constitutional General appearance: Present: no acute distress - Respiratory Respiratory: bilateral: diminished - Cardiovascular Heart sounds: normal: S1, S2 - Labs CBC & Chem 7: 07/19/19 15:30 07/21/19 06:35 Labs: Microbiology - Last 24 Hours (Table) 07/19/19 15:30 Blood Culture - Preliminary Blood No Growth after 24 hours Assessment and Plan Assessment: Assessment #1 congestive heart failure exacerbation secondary to diastole dysfunction #2 history of DVT/PE #3 multiple comorbid conditions Plan #1 continue IV Lasix for additional 24 hours #2 continue monitor the kidney function and electrolytes #3 follow-up with the patient
--- NOTE | 2019-07-21 15:45 | PN ---
PROGRESS NOTE DATE OF SERVICE: 07/21/2019 REASON FOR FOLLOWUP: Left knee septic arthritis MRSA. INTERVAL HISTORY: The patient is currently afebrile, has been breathing comfortably. Denies having any chest pain. No cough and no worsening pain to the left knee area. No nausea, no vomiting, no diarrhea. PHYSICAL EXAMINATION: Blood pressure 100/61 with a pulse of 99, temperature 99.2. He is 95% on 5 L nasal cannula. General description is a middle-aged male, lying in bed in no distress. RESPIRATORY SYSTEM: Unlabored breathing, clear to auscultation anteriorly. HEART: S1, S2. Regular rate and rhythm. ABDOMEN: Soft, no tenderness. Left knee is currently dressed up. LABS: Creatinine 0.97. Blood culture on this admission has been negative so far. DIAGNOSTIC IMPRESSION AND PLAN: Patient with left knee septic arthritis. This patient did have multiple surgeries on the same knee. Currently with , Patient is currently on vancomycin, pharmacy to dose. We will need to therapy for which the patient will benefit for in view of noncompliance with IV antibiotic in the outpatient setting. Continue supportive care. MMODL / IJN: [id number] /
--- NOTE | 2019-07-21 15:52 | P.PN ---
Subjective Progress Note Date: 07/21/19 Addy Villalpando is a 59 yo M with PMH of L knee septic arthritis, s/p multiple recent surgeries and on home vancomycin, COPD, alcoholism, history of DVT, prior GI bleed, pulmonary embolism, nicotine dependence, opiate use, seizure disorder, who was brought to the emergency room by EMS after pt fell out of his recliner at home. Pt was recently discharged from [facility] 2 days ago after recent procedure related to his L septic knee. Pt had not been taking care of himself at home, had been drinking a lot of alcohol and taking his norco in greater doses and more frequently then prescribed. Apparently he passed out in his chair so his mother called EMS. Pt was initially agitated in the ED, currently he complains mostly of his chronic knee pain. EKG on arrival here shows a sinus tachycardia with ST-T wave changes noted in the anterior leads. Chest x-ray shows increasing pulmonary interstitial edema compared with prior. Blood pressure 116/60 with a heart rate in the 90s, 98% on 2 L of oxygen. White blood cell count 11.9, hemoglobin 11.2, platelet count 369. D-dimer 1.96, sodium 135, potassium 4.2, BUN 12, creatinine 0.9. BNP level 4330. Serum alcohol less than 10. 07/21/2019 oxygen requirements worsened, now requiring 5 L nasal cannula to maintain O2 sats of 90%. Complains of occasional nonproductive cough throughout the night. Some airway congestion otherwise clear. Diuresing well on Lasix IV push, edema significantly improved-minimal. Maintained on vancomycin, creatinine 0.87.CTA reported without evidence of acute PE, advanced emphysematous change with underlying pulmonary hypertension. Objective - Vital Signs Vital signs: Vital Signs Temp 99.2 F 07/21/19 11:52 Pulse 104 H 07/21/19 12:15 Resp 20 07/21/19 11:52 BP 100/61 07/21/19 11:52 Pulse Ox 97 07/21/19 11:52 Intake & Output 07/20/19 07/21/19 07/21/19 18:59 06:59 18:59 Intake Total 520 850 Output Total 1200 950 Balance 520 -1200 -100 Intake: IV 250 Vancomycin 1,000 mg In 250 Sodium Chloride 0.9% 250 ml @ 125 mls/hr IVPB Q16H [facility] Rx#:[id number] Oral 520 600 Output: Urine 1200 950 Other: Voiding Method Urinal Urinal # Voids 3 # Bowel Movements 1 - Exam General: well nourished, well developed, NAD. Vitals reviewed Eyes: PERRL, EOMI, conjunctiva normal, oral mucosa moist HENT: normocephalic, mucus membranes moist Neck: supple, no JVD Lungs: normal respiratory effort, no wheezes or rales CV: Regular rate and rhythm, no murmur. Peripheral pulses 2+. No edema Abdomen: soft, nondistended, no organomegaly MSK: tenderness throughout L knee Lymph: no cervical or axillary LAD Skin: warm and dry. L knee sutures in place Neuro: Alert and oriented. Limited insight. Mild resting tremor - Labs CBC & Chem 7: 07/19/19 15:30 07/21/19 06:35 Labs: Microbiology - Last 24 Hours (Table) 07/19/19 15:30 Blood Culture - Preliminary Blood No Growth after 24 hours Assessment and Plan Assessment: (1) Acute exacerbation of CHF (congestive heart failure) Current Visit: Yes Status: Acute Code(s): I50.9 - HEART FAILURE, UNSPECIFIED SNOMED Code(s): 055697913 (2) ETOH abuse Current Visit: Yes Status: Acute Code(s): F10.10 - ALCOHOL ABUSE, UNCOMPLICATED SNOMED Code(s): 50105580 (3) Noncompliance with medication regimen Current Visit: Yes Status: Acute Code(s): Z91.14 - PATIENT'S OTHER NONCOMPLIANCE WITH MEDICATION REGIMEN SNOMED Code(s): 893828590 (4) Septic joint, left knee,MRSA Current Visit: Yes Status: Acute Code(s): M00.9 - PYOGENIC ARTHRITIS, UNSPECIFIED SNOMED Code(s): 697565214 (5)history of DVT/PE, Without evidence of acute PE per CTA,on Xarelto (6) Pulmonary hypertension. (7) COPD (8) chronic hypoxic respiratory failure, wears 2 L nasal cannula O2 at home Plan: Continue on current medication regime ,monitoring and sent to medical treatment. Aggressive pulmonary toileting, continue on nebulized bronchodilators . Maintaining on Lasix IV push for another 24 hours as per cardiology. Weaning of oxygen in progress. Vancomycin with pharmacy dosing/Wound Care as per ID. Close monitoring of renal function, electrolytes with repeat labs ordered for a.m. Continue CIWA protocol. Discharge planning in progress for subacute rehab., Pending pulmonary/ID clearance. The impression and plan of care has been dictated as directed. : I performed a history and examination of this patient, discussed the same with the dictator. I agree with the dictator's note ,documented as a scribe. Any additional findings or plans will be noted.
[2019-07-21] MEDS: LORazepam 2 MG/ML INJ IV PRN (20:30)
[2019-07-21] MEDS ORDERED: HYDROcodone/APAP 10-325MG 1 EACH TAB PO ONE (20:45)
[2019-07-22] MEDS: VANCOMYCIN 1,000 MG in SODIUM CHLORIDE 0.9% 250 ML IVPB SCH ×2 (05:34→20:51)
[2019-07-22] MEDS ORDERED: HYDROcodone/APAP 10-325MG 1 EACH TAB PO ONE (05:40)
[2019-07-22] MEDS: LEVOTHYROXINE 25 MCG TAB PO SCH (05:43)
[2019-07-22] MEDS: THIAMINE 100 MG TAB PO SCH ×2 (05:43→16:09)
[2019-07-22 06:35] LABS: Anisocytosis Slight; Basophils # (A) 0.1 k/uL (0-0.2); Basophils % (A) 0 %; Eosinophils # (A) 0.6 k/uL (0-0.7); Eosinophils % (A) 4 %; HCT 32.4 % (39.0-53.0); Hypochromasia Marked; Lymphocytes # (A) 1.7 k/uL (1.0-4.8); Lymphocytes % (A) 13 %; MCH 27.7 pg (25.0-35.0); MCHC 28.6 g/dL (31.0-37.0); MCV 97.1 fL (80.0-100.0); Macrocytosis Slight; Mean Platelet Volume 7.3; Monocytes # (A) 0.9 k/uL (0-1.0); Monocytes % (A) 7 %; Neutrophils # (A) 9.8 k/uL (1.3-7.7); Neutrophils % (A) 72 %; Platelet Count 348 k/uL (150-450); Poikilocytosis Slight; RBC 3.34 m/uL (4.30-5.90); RDW 19.3 % (11.5-15.5); WBC 13.7 k/uL (3.8-10.6)
[2019-07-22 06:40] LABS: HGB 9.3 gm/dL (13.0-17.5)
[2019-07-22 06:47] LABS: African American GFR (CKD) >90 (>60 ml/min/1.73 sqM); Anion Gap 6 mmol/L; Blood Urea Nitrogen 13 mg/dL (9-20); Calcium 7.7 mg/dL (8.4-10.2); Carbon Dioxide 29 mmol/L (22-30); Chloride 100 mmol/L (98-107); Glucose 100 mg/dL (74-99); Non-African American GFR(CKD) >90 (>60 ml/min/1.73 sqM); Potassium 3.7 mmol/L (3.5-5.1); Sodium 135 mmol/L (137-145)
[2019-07-22] MEDS: FUROSEMIDE 10 MG/ML 4 ML VIAL IV SCH (09:22)
[2019-07-22] MEDS: ACETAMINOPHEN TAB 500 MG TAB PO SCH ×3 (09:22→23:38)
[2019-07-22] MEDS: TAMSULOSIN 0.4 MG CAP.ER.24H PO SCH (09:22)
[2019-07-22] MEDS: GABAPENTIN 300 MG CAP PO SCH ×3 (09:22→22:24)
[2019-07-22] MEDS: RIVAROXABAN 20 MG TAB PO SCH (09:22)
[2019-07-22] MEDS: FERROUS SULFATE 325 MG TAB PO SCH ×2 (09:23→20:52)
[2019-07-22] MEDS: POTASSIUM CHLORIDE ER 10 MEQ TAB.ER.PRT PO SCH ×2 (09:23→20:52)
[2019-07-22] MEDS: MULTIVITAMINS, THERA 1 EACH TAB PO SCH (09:23)
[2019-07-22] MEDS: IPRATROPIUM-ALBUTEROL 3 ML NEB INHALATION SCH ×4 (09:28→21:19)
[2019-07-22] MEDS: BUDESONIDE 1 MG/2 ML NEBU INHALATION SCH ×2 (09:28→21:19)
[2019-07-22] MEDS: LORazepam 2 MG/ML INJ IV PRN ×3 (09:37→21:49)
--- NOTE | 2019-07-22 17:12 | PN ---
PROGRESS NOTE DATE OF SERVICE: 07/22/2019 REASON FOR FOLLOWUP: Left knee septic arthritis. INTERVAL HISTORY: The patient is currently afebrile. The patient has been breathing comfortably. Denies having any chest pain, shortness of breath or cough. No nausea, no vomiting. No abdominal pain. No diarrhea. PHYSICAL EXAMINATION: Blood pressure 103/63 with a pulse of 100, temperature 98. He is 94% on 3 L nasal cannula. General description is a middle-aged male lying in bed in no distress. RESPIRATORY SYSTEM: Unlabored breathing, clear to auscultation anteriorly. HEART: S1, S2. Regular rate and rhythm. ABDOMEN: Soft. No tenderness. LABS: Hemoglobin 9.3, white count 13.7, BUN of 13, creatinine 0.73. DIAGNOSTIC IMPRESSION AND PLAN: 1. Patient with left knee septic arthritis, MRSA, in this patient who did have multiple surgeries. Will have the patient continue vancomycin pharmacy to dose, currently getting q.16 hours. Waiting for placement because of noncompliance with outpatient IV antibiotic and continue supportive care. 2. The patient with white count slight elevation that will be monitor closely. Continue supportive care. MMODL / IJN: [id number] /
--- NOTE | 2019-07-22 21:48 | P.PN ---
Subjective Progress Note Date: 07/22/19 Principal diagnosis: acute CHF with diastolic dysfunction Left knee septic arthritis Addy Villalpando is a 59 yo M with PMH of L knee septic arthritis, s/p multiple recent surgeries and on home vancomycin, COPD, alcoholism, history of DVT, prior GI bleed, pulmonary embolism, nicotine dependence, opiate use, seizure disorder, who was brought to the emergency room by EMS after pt fell out of his recliner at home. Pt was recently discharged from [facility] 2 days ago after recent procedure related to his L septic knee. Pt had not been taking care of himself at home, had been drinking a lot of alcohol and taking his norco in greater doses and more frequently then prescribed. Apparently he passed out in his chair so his mother called EMS. Pt was initially agitated in the ED, currently he complains mostly of his chronic knee pain. EKG on arrival here shows a sinus tachycardia with ST-T wave changes noted in the anterior leads. Chest x-ray shows increasing pulmonary interstitial edema compared with prior. Blood pressure 116/60 with a heart rate in the 90s, 98% on 2 L of oxygen. White blood cell count 11.9, hemoglobin 11.2, platelet count 369. D-dimer 1.96, sodium 135, potassium 4.2, BUN 12, creatinine 0.9. BNP level 4330. Serum alcohol less than 10. 07/21/2019 oxygen requirements worsened, now requiring 5 L nasal cannula to maintain O2 sats of 90%. Complains of occasional nonproductive cough throughout the night. Some airway congestion otherwise clear. Diuresing well on Lasix IV push, edema significantly improved-minimal. Maintained on vancomycin, creatinine 0.87.CTA reported without evidence of acute PE, advanced emphysematous change with underlying pulmonary hypertension. Objective - Vital Signs Vital signs: Vital Signs Temp 96.6 F L 07/22/19 08:00 Pulse 100 07/22/19 13:23 Resp 16 07/22/19 12:00 BP 103/63 07/22/19 12:00 Pulse Ox 94 L 07/22/19 12:00 Intake & Output 07/21/19 07/22/19 07/22/19 18:59 06:59 18:59 Intake Total 1210 230 480 Output Total 680 349 9697 Balance 260 -595 -1170 Intake: IV 250 10 Invasive Line 1 10 Vancomycin 1,000 mg In 250 Sodium Chloride 0.9% 250 ml @ 125 mls/hr IVPB Q16H [facility] Rx#:[id number] Oral 960 220 480 Output: Urine 043 518 9427 Other: Voiding Method Urinal Urinal Urinal # Voids 1 # Bowel Movements 1 - Exam General: well nourished, well developed, NAD. Vitals reviewed Eyes: PERRL, EOMI, conjunctiva normal, oral mucosa moist HENT: normocephalic, mucus membranes moist Neck: supple, no JVD Lungs: normal respiratory effort, no wheezes or rales CV: Regular rate and rhythm, no murmur. Peripheral pulses 2+. No edema Abdomen: soft, nondistended, no organomegaly MSK: tenderness throughout L knee.surgical site intact. Lymph: no cervical or axillary LAD Skin: warm and dry. L knee sutures in place Neuro: Alert and oriented. Limited insight. Mild resting tremor - Labs CBC & Chem 7: 07/22/19 05:51 07/22/19 05:51 Labs: Abnormal Lab Results - Last 24 Hours (Table) 07/22/19 07/22/19 Range/Units 05:51 05:51 WBC 13.7 H (3.8-10.6) k/uL RBC 3.34 L (4.30-5.90) m/uL Hgb 9.3 L D (13.0-17.5) gm/dL Hct 32.4 L (39.0-53.0) % MCHC 28.6 L (31.0-37.0) g/dL RDW 19.3 H (11.5-15.5) % Neutrophils # 9.8 H (1.3-7.7) k/uL Sodium 135 L (137-145) mmol/L Glucose 100 H (74-99) mg/dL Calcium 7.7 L (8.4-10.2) mg/dL Microbiology - Last 24 Hours (Table) 07/21/19 09:30 Gram Stain - Preliminary Sputum 07/19/19 15:30 Blood Culture - Preliminary Blood No Growth after 48 hours Assessment and Plan Assessment: acute on chronic CHF with diastolic dysfunction Left knee septic arthritis Noncompliance with medications at home Severe alcohol abuse history of DVT/PE, Without evidence of acute PE per CTA,on Xarelto Pulmonary hypertension. COPD chronic hypoxic respiratory failure, wears 2 L nasal cannula O2 at home DVT prophylaxis Patient is on xarelto already Plan: Patient is being continued on IV Lasix. His breathing status is improving. Currently on IV antibiotics- vancomycin septic left knee arthritis. Patient is noncompliant with medications at home. Possible transfer to rehab to complete antibiotic course. ID is following. Time with Patient: Greater than 30
[2019-07-22] MEDS ORDERED: PANTOPRAZOLE 40 MG TABLET PO STA (22:04)
[2019-07-23] MEDS: THIAMINE 100 MG TAB PO SCH ×2 (04:48→17:36)
[2019-07-23] MEDS: PANTOPRAZOLE 40 MG TABLET PO SCH (04:48)
[2019-07-23] MEDS: LEVOTHYROXINE 25 MCG TAB PO SCH (04:48)
[2019-07-23] MEDS: GABAPENTIN 300 MG CAP PO SCH ×3 (08:55→22:07)
[2019-07-23] MEDS: TAMSULOSIN 0.4 MG CAP.ER.24H PO SCH (08:55)
[2019-07-23] MEDS: RIVAROXABAN 20 MG TAB PO SCH (08:55)
[2019-07-23] MEDS: MULTIVITAMINS, THERA 1 EACH TAB PO SCH (08:55)
[2019-07-23] MEDS: ACETAMINOPHEN TAB 500 MG TAB PO SCH ×2 (08:55→17:35)
[2019-07-23] MEDS: FERROUS SULFATE 325 MG TAB PO SCH ×2 (08:56→22:06)
[2019-07-23] MEDS: POTASSIUM CHLORIDE ER 10 MEQ TAB.ER.PRT PO SCH ×2 (08:56→22:06)
[2019-07-23] MEDS: FUROSEMIDE 10 MG/ML 4 ML VIAL IV SCH (08:56)
[2019-07-23] MEDS: BUDESONIDE 1 MG/2 ML NEBU INHALATION SCH ×2 (09:02→20:53)
[2019-07-23] MEDS: IPRATROPIUM-ALBUTEROL 3 ML NEB INHALATION SCH ×4 (09:02→20:53)
[2019-07-23] MEDS: LORazepam 2 MG/ML INJ IV PRN ×2 (10:54→17:41)
[2019-07-23] MEDS ORDERED: VANCOMYCIN TROUGH DUE 1 EACH MISC MISCELLANE ONE (12:00)
[2019-07-23] MEDS: VANCOMYCIN 1,000 MG in SODIUM CHLORIDE 0.9% 250 ML IVPB SCH (12:54)
--- NOTE | 2019-07-23 18:10 | PN ---
PROGRESS NOTE DATE OF SERVICE: 07/23/2019 REASON FOR FOLLOWUP: Left knee septic arthritis. INTERVAL HISTORY: The patient is currently afebrile, has been breathing comfortably. The patient denies having any chest pain. No cough. No abdominal pain and no worsening pain in the left knee area. PHYSICAL EXAMINATION: Blood pressure 105/65 with a pulse of 100, temperature of 98. He is 94% on room air. General description is a middle-aged male lying in bed in no distress. Respiratory system: Unlabored breathing. Clear to auscultation anteriorly. Heart S1, S2. Regular rate and rhythm. Abdomen soft, no tenderness. Left knee is currently dressed up. LABS: White count is down to 13.7, creatinine 0.70. Vanco trough is 14. Blood and sputum cultures have been negative. DIAGNOSTIC IMPRESSION AND PLAN: Patient with left knee septic arthritis in this patient who did have recurrent . The patient is currently covered with vancomycin. Pharmacy to dose, target of 15 to continue to finish a 6 week course of therapy with close outpatient followup. Continue supportive care. MMODL / IJN: [id number] /
--- NOTE | 2019-07-23 21:50 | P.PN ---
Subjective Progress Note Date: 07/23/19 Principal diagnosis: acute CHF with diastolic dysfunction Left knee septic arthritis Addy Villalpando is a 59 yo M with PMH of L knee septic arthritis, s/p multiple recent surgeries and on home vancomycin, COPD, alcoholism, history of DVT, prior GI bleed, pulmonary embolism, nicotine dependence, opiate use, seizure disorder, who was brought to the emergency room by EMS after pt fell out of his recliner at home. Pt was recently discharged from [facility] 2 days ago after recent procedure related to his L septic knee. Pt had not been taking care of himself at home, had been drinking a lot of alcohol and taking his norco in greater doses and more frequently then prescribed. Apparently he passed out in his chair so his mother called EMS. Pt was initially agitated in the ED, currently he complains mostly of his chronic knee pain. EKG on arrival here shows a sinus tachycardia with ST-T wave changes noted in the anterior leads. Chest x-ray shows increasing pulmonary interstitial edema compared with prior. Blood pressure 116/60 with a heart rate in the 90s, 98% on 2 L of oxygen. White blood cell count 11.9, hemoglobin 11.2, platelet count 369. D-dimer 1.96, sodium 135, potassium 4.2, BUN 12, creatinine 0.9. BNP level 4330. Serum alcohol less than 10. 07/21/2019 oxygen requirements worsened, now requiring 5 L nasal cannula to maintain O2 sats of 90%. Complains of occasional nonproductive cough throughout the night. Some airway congestion otherwise clear. Diuresing well on Lasix IV push, edema significantly improved-minimal. Maintained on vancomycin, creatinine 0.87.CTA reported without evidence of acute PE, advanced emphysematous change with underlying pulmonary hypertension. patient is currently lying in the bed Saturating well on 3 L oxygen via nasal cannula. Patient is being continued on IV Lasix40 mg daily. Breathing status is improving otherwise. No complaints of chest pain. No nausea vomiting or abdominal pain . Or diarrhea. Patient is being continued on antibiotics the form of vancomycin. anticipate to be discharged to home with home care versus rehab to complete the antibiotic course. Gradually titrate down oxygen to room air. Active Medications Acetaminophen (Tylenol Tab) 1,000 mg PO Q8HR [facility] Last Admin: 03/01/20 17:35 Dose: 1,000 mg Documented by: Albuterol/Ipratropium (Duoneb 0.5 Mg-3 Mg/3 Ml Soln) 3 ml INHALATION RT-QID [facility] Last Admin: 07/23/19 20:53 Dose: 3 ml Documented by: Albuterol/Ipratropium (Duoneb 0.5 Mg-3 Mg/3 Ml Soln) 3 ml INHALATION RT-Q2H PRN PRN Reason: Shortness Of Breath Or Wheezing Budesonide (Pulmicort) 1 mg INHALATION RT-BID [facility] Last Admin: 07/23/19 20:53 Dose: 1 mg Documented by: Ferrous Sulfate (Feosol) 325 mg PO BID [facility] Last Admin: 07/23/19 08:56 Dose: 325 mg Documented by: Furosemide (Lasix) 40 mg IV DAILY [facility] Last Admin: 07/23/19 08:56 Dose: 40 mg Documented by: Gabapentin (Neurontin) 300 mg PO TID [facility] Last Admin: 07/23/19 17:35 Dose: 300 mg Documented by: Vancomycin HCl 1,000 mg/ (Sodium Chloride) 250 mls @ 125 mls/hr IVPB Q16H [facility] Last Admin: 07/23/19 12:54 Dose: 125 mls/hr Documented by: Levothyroxine Sodium (Synthroid) 25 mcg PO 0630 [facility] Last Admin: 07/23/19 04:48 Dose: 25 mcg Documented by: Lorazepam (Ativan) 1 mg IV Q2HR PRN PRN Reason: CIWA 8 or 9 Last Admin: 07/23/19 17:41 Dose: 1 mg Documented by: Lorazepam (Ativan) 1 mg IV Q1HR PRN PRN Reason: CIWA 10 to 15 Multivitamins (Theragran) 1 each PO DAILY [facility] Last Admin: 07/23/19 08:55 Dose: 1 each Documented by: Oxycodone HCl (Oxyir) 5 mg PO Q8H PRN PRN Reason: Pain Last Admin: 07/23/19 13:07 Dose: 5 mg Documented by: Pantoprazole Sodium (Protonix) 40 mg PO DAILY@0730 [facility] Last Admin: 07/23/19 04:48 Dose: 40 mg Documented by: Polyethylene Glycol (Miralax) 17 gm PO DAILY PRN PRN Reason: Constipation Last Admin: 07/22/19 16:10 Dose: 17 gm Documented by: Potassium Chloride (K-Dur 10) 10 meq PO BID [facility] Last Admin: 07/23/19 08:56 Dose: 10 meq Documented by: Rivaroxaban (Xarelto) 20 mg PO DAILY [facility] Last Admin: 07/23/19 08:55 Dose: 20 mg Documented by: Tamsulosin HCl (Flomax) 0.4 mg PO DAILY [facility] Last Admin: 07/23/19 08:55 Dose: 0.4 mg Documented by: Thiamine HCl (Vitamin B-1) 100 mg PO BID-W/MEALS [facility] Last Admin: 07/23/19 17:36 Dose: 100 mg Documented by: Objective - Vital Signs Vital signs: Vital Signs Temp 96.4 F L 07/23/19 08:00 Pulse 100 07/23/19 12:43 Resp 16 07/23/19 12:00 BP 105/55 07/23/19 12:00 Pulse Ox 94 L 07/23/19 12:00 Intake & Output 07/22/19 07/23/19 07/23/19 18:59 06:59 18:59 Intake Total 1858 Output Total 3150 1550 1200 Balance -1292 -1550 -1200 Intake: Intake, IV Titration 250 Amount Vancomycin 1,000 mg In 250 Sodium Chloride 0.9% 250 ml @ 125 mls/hr IVPB Q16H [facility] Rx#:[id number] Oral 1608 Output: Urine 3150 1550 1200 Other: Voiding Method Urinal Urinal Urinal # Voids 1 # Bowel Movements 1 - Exam General: well nourished, well developed, NAD. Vitals reviewed Eyes: PERRL, EOMI, conjunctiva normal, oral mucosa moist HENT: normocephalic, mucus membranes moist Neck: supple, no JVD Lungs: normal respiratory effort, no wheezes or rales. Bibasilar diminished air entry. CV: Regular rate and rhythm, no murmur. Peripheral pulses 2+. No edema Abdomen: soft, nondistended, no organomegaly MSK: tenderness throughout L knee.surgical site intact. Lymph: no cervical or axillary LAD Skin: warm and dry. L knee sutures in place Neuro: Alert and oriented. Limited insight. Mild resting tremor - Labs CBC & Chem 7: 07/22/19 05:51 07/22/19 05:51 Labs: Microbiology - Last 24 Hours (Table) 07/21/19 09:30 Gram Stain - Final Sputum Sputum Culture - Final 07/19/19 15:30 Blood Culture - Preliminary Blood No Growth after 72 hours Assessment and Plan Assessment: acute on chronic CHF with diastolic dysfunction Left knee septic arthritis Noncompliance with medications at home Severe alcohol abuse history of DVT/PE, Without evidence of acute PE per CTA,on Xarelto Pulmonary hypertension. COPD chronic hypoxic respiratory failure, wears 2 L nasal cannula O2 at home DVT prophylaxis Patient is on xarelto already Plan: Patient is being continued on IV Lasix. His breathing status is improving. Currently on IV antibiotics- vancomycin septic left knee arthritis. Patient is noncompliant with medications at home. Possible transfer to rehab to complete antibiotic course. ID is following. Time with Patient: Greater than 30
[2019-07-24] MEDS: ACETAMINOPHEN TAB 500 MG TAB PO SCH ×3 (00:51→15:38)
[2019-07-24] MEDS: VANCOMYCIN 1,000 MG in SODIUM CHLORIDE 0.9% 250 ML IVPB SCH (05:38)
[2019-07-24] MEDS: LEVOTHYROXINE 25 MCG TAB PO SCH (05:38)
[2019-07-24 07:06] LABS: Anisocytosis Moderate; Basophils # (A) 0.1 k/uL (0-0.2); Basophils % (A) 1 %; Eosinophils # (A) 1.1 k/uL (0-0.7); Eosinophils % (A) 11 %; HCT 34.2 % (39.0-53.0); HGB 9.7 gm/dL (13.0-17.5); Hypochromasia Marked; Lymphocytes # (A) 1.3 k/uL (1.0-4.8); Lymphocytes % (A) 13 %; MCH 28.2 pg (25.0-35.0); MCHC 28.4 g/dL (31.0-37.0); MCV 99.1 fL (80.0-100.0); Macrocytosis Moderate; Mean Platelet Volume 7.2; Monocytes # (A) 0.5 k/uL (0-1.0); Monocytes % (A) 5 %; Neutrophils # (A) 6.9 k/uL (1.3-7.7); Neutrophils % (A) 67 %; Platelet Count 320 k/uL (150-450); RBC 3.46 m/uL (4.30-5.90); RDW 20.2 % (11.5-15.5); WBC 10.3 k/uL (3.8-10.6)
[2019-07-24 07:16] LABS: African American GFR (CKD) >90 (>60 ml/min/1.73 sqM); Anion Gap 7 mmol/L; Blood Urea Nitrogen 16 mg/dL (9-20); Calcium 8.4 mg/dL (8.4-10.2); Carbon Dioxide 25 mmol/L (22-30); Chloride 103 mmol/L (98-107); Glucose 101 mg/dL (74-99); Non-African American GFR(CKD) >90 (>60 ml/min/1.73 sqM); Potassium 4.5 mmol/L (3.5-5.1); Sodium 135 mmol/L (137-145)
[2019-07-24 07:50] VITALS: RESP 18
[2019-07-24] MEDS: MULTIVITAMINS, THERA 1 EACH TAB PO SCH (08:11)
[2019-07-24] MEDS: PANTOPRAZOLE 40 MG TABLET PO SCH (08:11)
[2019-07-24] MEDS: THIAMINE 100 MG TAB PO SCH ×2 (08:11→17:39)
[2019-07-24] MEDS: RIVAROXABAN 20 MG TAB PO SCH (08:12)
[2019-07-24] MEDS: FERROUS SULFATE 325 MG TAB PO SCH (08:12)
[2019-07-24] MEDS: TAMSULOSIN 0.4 MG CAP.ER.24H PO SCH (08:12)
[2019-07-24] MEDS: GABAPENTIN 300 MG CAP PO SCH ×2 (08:12→15:39)
[2019-07-24] MEDS: FUROSEMIDE 10 MG/ML 4 ML VIAL IV SCH (08:12)
[2019-07-24] MEDS: POTASSIUM CHLORIDE ER 10 MEQ TAB.ER.PRT PO SCH (08:27)
[2019-07-24] MEDS ORDERED: guaiFENesin SYRUP 100MG/5ML 200 MG/10 ML CUP PO PRN (08:41)
[2019-07-24] MEDS: BUDESONIDE 1 MG/2 ML NEBU INHALATION SCH (09:17)
[2019-07-24] MEDS: IPRATROPIUM-ALBUTEROL 3 ML NEB INHALATION SCH ×3 (09:17→16:54)
--- NOTE | 2019-07-24 12:31 | PN ---
PROGRESS NOTE DATE OF SERVICE: 07/24/2019 REASON FOR FOLLOWUP: Left knee septic arthritis. INTERVAL HISTORY: The patient is currently afebrile, has been breathing comfortably. Denies having any chest pain or any cough. No nausea, no vomiting. No abdominal pain or any worsening pain to the left knee area. PHYSICAL EXAMINATION: Blood pressure 103/67 with the pulse of 87, temperature 98.3. He is 97% on 2 L nasal cannula. General description is a middle-aged male up in the bed in no distress. RESPIRATORY SYSTEM: Unlabored breathing, clear to auscultation. HEART: S1, S2. Regular rate and rhythm. ABDOMEN: Soft, no tenderness. The left knee incision is currently of with some . No significant redness. LABS: Hemoglobin 9.7, white count 10.3, BUN of 16, creatinine 0.86. Blood culture has been negative. Sputum has been negative. DIAGNOSTIC IMPRESSION AND PLAN: Patient with left knee septic arthritis in this patient who did have multiple surgeries recently has been done at [facility]. Patient's wound is gapping out and will benefit from evaluation by his surgeon as soon as possible. The patient apparently does have an appointment to see the surgeon on Wednesday, may transfer to his facility. For now continue with vancomycin. Local wound care with dry Aquacel Silver dressing. Continue supportive care. MMODL / IJN: [id number] /
--- NOTE | 2019-07-24 14:07 | P.DS ---
Providers Date of admission: 07/19/19 17:51 Expected date of discharge: 07/24/19 Attending physician: Reggie Edward MD Consults: 07/19/19 17:33 Consult Physician Urgent Consulting Provider: Kelechi Hill Consult Reason/Comments: Septic knee Do you want consulting provider notified?: Yes 07/19/19 22:17 Consult Physician Urgent Consulting Provider: Gasotn Hummel Consult Reason/Comments: new chf Do you want consulting provider notified?: Yes 07/19/19 22:18 Consult Physician Urgent Consulting Provider: Alejandra Hermosillo Consult Reason/Comments: dyspnea Do you want consulting provider notified?: Yes Primary care physician: Reggie Edward MD Hospital Course: Final Diagnoses: (1) Acute on chronic exacerbation of CHF (congestive heart failure), diastolic dysfunction Current Visit: Yes Status: Acute Code(s): I50.9 - HEART FAILURE, UNSPECIFIED SNOMED Code(s): 647897843 (2) ETOH abuse Current Visit: Yes Status: Acute Code(s): F10.10 - ALCOHOL ABUSE, UNCOMPLIC ATED SNOMED Code(s): 55689223 (3) Noncompliance with medication regimen Current Visit: Yes Status: Acute Code(s): Z91.14 - PATIENT'S OTHER NONCOMPLIANCE WITH MEDICATION REGIMEN SNOMED Code(s): 856253564 (4) Septic joint, left knee,MRSA Current Visit: Yes Status: Acute Code(s): M00.9 - PYOGENIC ARTHRITIS, UNSPECIFIED SNOMED Code(s): 630372897 (5)history of DVT/PE, Without evidence of acute PE per CTA,on Xarelto (6) Pulmonary hypertension. (7) COPD (8) chronic hypoxic respiratory failure, wears 2 L nasal cannula O2 at home Hospital course: Addy Villalpando is a 59 yo M with PMH of L knee septic arthritis, s/p multiple recent surgeries and on home vancomycin, COPD, alcoholism, history of DVT, prior GI bleed, pulmonary embolism, nicotine dependence, opiate use, seizure disorder, who was brought to the emergency room by EMS after pt fell out of his recliner at home. Pt was recently discharged from [facility] 2 days ago after recent procedure related to his L septic knee. Pt had not been taking care of himself at home, had been drinking a lot of alcohol and taking his norco in greater doses and more frequently then prescribed. Apparently he passed out in his chair so his mother called EMS. Pt was initially agitated in the ED, currently he complains mostly of his chronic knee pain. EKG on arrival here shows a sinus tachycardia with ST-T wave changes noted in the anterior leads. Chest x-ray shows increasing pulmonary interstitial edema compared with prior. Blood pressure 116/60 with a heart rate in the 90s, 98% on 2 L of oxygen. White blood cell count 11.9, hemoglobin 11.2, platelet count 369. D-dimer 1.96, sodium 135, potassium 4.2, BUN 12, creatinine 0.9. BNP level 4330. Serum alcohol less than 10. 07/21/2019 oxygen requirements worsened, now requiring 5 L nasal cannula to maintain O2 sats of 90%. Complains of occasional nonproductive cough throughout the night. Some airway congestion otherwise clear. Diuresing well on Lasix IV push, edema significantly improved-minimal. Maintained on vancomycin, creatinine 0.87.CTA reported without evidence of acute PE, advanced emphysematous change with underlying pulmonary hypertension. Significant clinical improvement. Patient is being discharged to [facility] subacute rehab in stable condition with guarded prognosis, pending discharge antibiotics/clearance from infectious disease. - Exam General: A&O X3, NAD Lungs: normal respiratory effort, no wheezes or rales CV: Regular rate and rhythm, no murmur. Peripheral pulses 2+. No edema Abdomen: soft, nondistended, no organomegaly,+BS MSK: tenderness throughout L knee Skin: warm and dry. L knee sutures in place Neuro: Alert and oriented. Limited insight. Mild resting tremor The impression and plan of care has been dictated as directed. : I performed a history and examination of this patient, discussed the same with the dictator. I agree with the dictator's note ,documented as a scribe. Any additional findings or plans will be noted. Patient Condition at Discharge: Stable Plan - Discharge Summary New Discharge Prescriptions: New Ipratropium-Albuterol Nebulize [Duoneb 0.5 mg-3 mg/3 ml Soln] 3 ml INHALATION RT-QID ml Ipratropium-Albuterol Nebulize [Duoneb 0.5 mg-3 mg/3 ml Soln] 3 ml INHALATION Q4H PRN ml PRN Reason: Shortness Of Breath Or Wheezing Pantoprazole [Protonix] 40 mg PO DAILY@0730 rosita. Budesonide [Pulmicort] 1 mg INHALATION RT-BID ml guaiFENesin SYRUP 100MG/5ML [Robitussin] 200 mg PO TID PRN ml PRN Reason: Cough Thiamine [Vitamin B-1] 100 mg PO DAILY tab Continue Rivaroxaban [Xarelto] 20 mg PO DAILY Sucralfate [Carafate] 1 gm PO BID Acetaminophen Tab [Tylenol] 1,000 mg PO Q8H Potassium Chloride ER [K-Dur 10] 10 meq PO BID Ferrous Sulfate [Iron (65 MG Elemental)] 325 mg PO BID Vancomycin 1,000 mg IVPB DAILY Multivitamins, Thera [Multivitamin (formulary)] 1 tab PO DAILY Tamsulosin [Flomax] 0.4 mg PO DAILY Furosemide [Lasix] 20 mg PO BID L.acidoph,Paracasei, B.lactis [Probiotic] 1 cap PO BID Levothyroxine Sodium [Synthroid] 25 mcg PO AC-BRKFST Polyethylene Glycol 3350 [Miralax] 17 gm PO DAILY PRN PRN Reason: Constipation Gabapentin [Neurontin] 300 mg PO TID #9 cap oxyCODONE HCL [OxyIR] 5 mg PO Q8H PRN #9 tab PRN Reason: Pain Discontinued ALPRAZolam [Xanax] 1 mg PO Q6H PRN PRN Reason: Anxiety Ipratropium-Albuterol Nebulize [Duoneb 0.5 mg-3 mg/3 ml Soln] 3 ml INHALATION RT-QID guaiFENesin [guaiFENesin Oral Solution] 200 mg PO Q6H PRN PRN Reason: Cough Loperamide [Imodium] 2 mg PO Q6H PRN PRN Reason: Diarrhea Pantoprazole Sodium [Protonix] 20 mg PO BID Discharge Medication List Rivaroxaban [Xarelto] 20 mg PO DAILY 05/06/18 [History] Acetaminophen Tab [Tylenol] 1,000 mg PO Q8H 07/10/19 [History] Ferrous Sulfate [Iron (65 MG Elemental)] 325 mg PO BID 07/10/19 [History] Multivitamins, Thera [Multivitamin (formulary)] 1 tab PO DAILY 07/10/19 [History] Potassium Chloride ER [K-Dur 10] 10 meq PO BID 07/10/19 [History] Sucralfate [Carafate] 1 gm PO BID 07/10/19 [History] Tamsulosin [Flomax] 0.4 mg PO DAILY 07/10/19 [History] Vancomycin 1,000 mg IVPB DAILY 07/10/19 [History] Furosemide [Lasix] 20 mg PO BID 07/19/19 [History] L.acidoph,Paracasei, B.lactis [Probiotic] 1 cap PO BID 07/19/19 [History] Levothyroxine Sodium [Synthroid] 25 mcg PO AC-BRKFST 07/19/19 [History] Polyethylene Glycol 3350 [Miralax] 17 gm PO DAILY PRN 07/19/19 [History] Budesonide [Pulmicort] 1 mg INHALATION RT-BID ml 07/24/19 [Rx] Gabapentin [Neurontin] 300 mg PO TID #9 cap 07/24/19 [Rx] Ipratropium-Albuterol Nebulize [Duoneb 0.5 mg-3 mg/3 ml Soln] 3 ml INHALATION Q4H PRN ml 07/24/19 [Rx] Ipratropium-Albuterol Nebulize [Duoneb 0.5 mg-3 mg/3 ml Soln] 3 ml INHALATION RT-QID ml 07/24/19 [Rx] Pantoprazole [Protonix] 40 mg PO DAILY@0730 tablet. 07/24/19 [Rx] Thiamine [Vitamin B-1] 100 mg PO DAILY tab 07/24/19 [Rx] guaiFENesin SYRUP 100MG/5ML [Robitussin] 200 mg PO TID PRN ml 07/24/19 [Rx] oxyCODONE HCL [OxyIR] 5 mg PO Q8H PRN #9 tab 07/24/19 [Rx] Follow up Appointment(s)/Referral(s): Junaid Yanes MD [REFERRING] - 07/26/19 10:45 am None,Stated [REFERRING] - 1-2 days Activity/Diet/Wound Care/Special Instructions: jasmyne medi/iv abx Local wound care with dry Aquacel Silver dressing as per ID
[2019-07-24 14:33] VITALS: BP 112/61; PULSE 106; TEMP 97.9
== END 2019-07-24 18:36 | DRG 291 ==
LOC: EC 13:36 → OBSVTOIN 17:51 → 5NMEDONC 17:51 → 3SCARD 23:05 → 4SSUR 07-24 05:33
PROVIDERS: ADMIT Family Medicine; ATTEND Family Medicine
PROC: 05H933Z Insertion of Infusion Device into Right Brachial Vein, Percutaneous Approach (ICD-10-PCS; principal; 2019-07-19)
DX: I50.33 Acute on chronic diastolic (congestive) heart failure (principal); J96.21 Acute and chronic respiratory failure with hypoxia; J44.1 Chronic obstructive pulmonary disease with (acute) exacerbation; F10.239 Alcohol dependence with withdrawal, unspecified; M00.062 Staphylococcal arthritis, left knee; K21.9 Gastro-esophageal reflux disease without esophagitis; E03.9 Hypothyroidism, unspecified; T36.8X6A Underdosing of other systemic antibiotics, initial encounter; Z91.128 Patient's intentional underdosing of medication regimen for other reason; F11.10 Opioid abuse, uncomplicated; F17.210 Nicotine dependence, cigarettes, uncomplicated; F32.9 Major depressive disorder, single episode, unspecified; F41.9 Anxiety disorder, unspecified; G40.909 Epilepsy, unspecified, not intractable, without status epilepticus; G89.29 Other chronic pain; B95.62 Methicillin resistant Staphylococcus aureus infection as the cause of diseases classified elsewhere; Z96.653 Presence of artificial knee joint, bilateral; I08.1 Rheumatic disorders of both mitral and tricuspid valves; I27.20 Pulmonary hypertension, unspecified; K59.00 Constipation, unspecified; R29.6 Repeated falls; W07.XXXA Fall from chair, initial encounter; Y92.009 Unspecified place in unspecified non-institutional (private) residence as the place of occurrence of the external cause; Z79.01 Long term (current) use of anticoagulants; Z79.890 Hormone replacement therapy; Z79.899 Other long term (current) drug therapy; Z80.3 Family history of malignant neoplasm of breast; Z82.49 Family history of ischemic heart disease and other diseases of the circulatory system; Z86.711 Personal history of pulmonary embolism; Z86.718 Personal history of other venous thrombosis and embolism; Z91.19 Patient's noncompliance with other medical treatment and regimen; Z95.828 Presence of other vascular implants and grafts; Z99.81 Dependence on supplemental oxygen; R79.1 Abnormal coagulation profile; Z87.11 Personal history of peptic ulcer disease; Z79.891 Long term (current) use of opiate analgesic; R45.1 Restlessness and agitation; M19.90 Unspecified osteoarthritis, unspecified site
CPT/HCPCS: 36415; 71045; 71275; 80048; 80053; 80202; 80320; 81003; 82565; 83605; 83880; 85025; 85379; 85610; 85730; 87040; 87070; 87205; 93005; 93306; 94640

== ENCOUNTER 2019-08-01 15:11 | Emergency (ER) | payer MEDICARE ==
[2019-08-01 15:27] VITALS: BP 102/63; PULSE 93; RESP 20; TEMP 98
--- NOTE | 2019-08-01 16:28 | ED ---
Recheck HPI - General Chief Complaint: Recheck/Abnormal Lab/Rx Stated Complaint: picc line problems Time Seen by Provider: 08/01/19 15:29 Source: patient Mode of arrival: wheelchair Limitations: no limitations - History of Present Illness Initial Comments: Patient is a 59-year-old male presenting to the emergency department requesting a new PICC line. Patient states he has had a PICC line in place for persistent infection in his left knee however the PICC line fell out 2 days ago. He has not had his vancomycin medication in 2 or 3 days. He states he called his doctor's office however they are on vacation, he then called his nurse who recommended he go into the ER for a new PICC line. He sees an infectious disease doctor in [facility]. Patient states he is an extremely hard poke. He denies any recent fever, chills, nausea, vomiting. He has no other complaints at this time. Upon arrival to the ER, his vital signs are stable, afebrile. - Related Data Home Medications Medication Instructions Recorded Confirmed Rivaroxaban [Xarelto] 20 mg PO DAILY 05/06/18 07/19/19 Acetaminophen Tab [Tylenol] 1,000 mg PO Q8H 07/10/19 07/19/19 Ferrous Sulfate [Iron (65 MG 325 mg PO BID 07/10/19 07/19/19 Elemental)] Multivitamins, Thera [Multivitamin 1 tab PO DAILY 07/10/19 07/19/19 (formulary)] Potassium Chloride ER [K-Dur 10] 10 meq PO BID 07/10/19 07/19/19 Sucralfate [Carafate] 1 gm PO BID 07/10/19 07/19/19 Tamsulosin [Flomax] 0.4 mg PO DAILY 07/10/19 07/19/19 Furosemide [Lasix] 20 mg PO BID 07/19/19 07/19/19 L.acidoph,Paracasei, B.lactis 1 cap PO BID 07/19/19 07/19/19 [Probiotic] Levothyroxine Sodium [Synthroid] 25 mcg PO AC-BRKFST 07/19/19 07/19/19 Polyethylene Glycol 3350 [Miralax] 17 gm PO DAILY PRN 07/19/19 07/19/19 Previous Rx's Medication Instructions Recorded Budesonide [Pulmicort] 1 mg INHALATION RT-BID ml 07/24/19 Gabapentin [Neurontin] 300 mg PO TID #9 cap 07/24/19 Ipratropium-Albuterol Nebulize 3 ml INHALATION Q4H PRN ml 07/24/19 [Duoneb 0.5 mg-3 mg/3 ml Soln] Ipratropium-Albuterol Nebulize 3 ml INHALATION RT-QID ml 07/24/19 [Duoneb 0.5 mg-3 mg/3 ml Soln] Pantoprazole [Protonix] 40 mg PO DAILY@0730 tablet. 07/24/19 Thiamine [Vitamin B-1] 100 mg PO DAILY tab 07/24/19 Vancomycin HCl in 5 % Dextrose 1 gm IV Q12HR #60 plast..bag 07/24/19 [Vancomycin 1 Gram/250 ml-D5w] guaiFENesin SYRUP 100MG/5ML 200 mg PO TID PRN ml 07/24/19 [Robitussin] guaiFENesin [Mucinex] 1,200 mg PO Q12HR #1 tablet.er 07/24/19 oxyCODONE HCL [OxyIR] 5 mg PO Q8H PRN #9 tab 07/24/19 Allergies Allergy/AdvReac Type Severity Reaction Status Date / Time tramadol AdvReac Mild Itching Verified 07/10/19 11:57 Review of Systems ROS Statement: Those systems with pertinent positive or pertinent negative responses have been documented in the HPI. ROS Other: All systems not noted in ROS Statement are negative. Past Medical History Past Medical History: Deep Vein Thrombosis (DVT), GERD/Reflux, Osteoarthritis (OA), Pulmonary Embolus (PE), Seizure Disorder, Syncope Additional Past Medical History / Comment(s): Alcoholism, recent hospitalization for bilateral pulmonary embolism with clot occluding the left pulmonary artery and evidence of right ventricular strain pattern maintained on anticoagulation, COPD, chronic hypoxic respiratory failure, FEV1 of 51% of predicted with chronic hypoxic respiratory failure, chronic smoker carries more than on the PACU smoking history, alcoholism, history of delirium tremens, history of recurrent falls, history of rib fractures related to falls, GERD, diverticulosis, seizure disorder, osteoarthritis, history of small bowel obstruction secondary to incarcerated right inguinal hernia, History of Any Multi-Drug Resistant Organisms: MRSA Date of last positivie culture/infection: 12/13/18 MDRO Source:: Knee Aspirate Past Surgical History: Orthopedic Surgery Additional Past Surgical History / Comment(s): Colonoscopies and polypectomies, 10/21/15 normal cardiac cath, multiple inguinal hernia surg., bilateral knee arthroscopies and pt states bilateral knee arthroplasties."had blood clots removed from lungs at [facility], i'not sure what they did". Knee surg ashlee- 7 surgeries on the left knee Past Anesthesia/Blood Transfusion Reactions: No Reported Reaction Past Psychological History: Anxiety, Depression Smoking Status: Current some day smoker Past Alcohol Use History: Occasional Past Drug Use History: None Reported - Past Family History Father Family Medical History: Coronary Artery Disease (CAD), Myocardial Infarction ([place]) Additional Family Medical History / Comment(s): Father of a [place] at the age of 73 yrs. Mother Family Medical History: Cancer Additional Family Medical History / Comment(s): BREAST CA General Exam - General Exam Comments Initial Comments: GENERAL: Well-appearing, well-nourished and in no acute distress. HEAD: Atraumatic, normocephalic. EYES: Pupils equal round and reactive to light, extraocular movements intact, sclera anicteric, conjunctiva are normal. ENT: TMs normal, nares patent, oropharynx clear without exudates. Moist mucous membranes. NECK: Normal range of motion, supple without lymphadenopathy or JVD. LUNGS: Breath sounds clear to auscultation bilaterally and equal. No wheezes rales or rhonchi. HEART: Regular rate and rhythm without murmurs, rubs or gallops. ABDOMEN: Soft, nontender, normoactive bowel sounds. No guarding, no rebound. No masses appreciated. : Deferred EXTREMITIES: Patient has a knee immobilizer on the left lower extremity. No pitting or edema. No clubbing or cyanosis. PICC line was in left AC area. Skin is clean and dry, no signs of infection, no erythema. NEUROLOGICAL: Normal speech. PSYCH: Normal mood, normal affect. SKIN: Warm, Dry, normal turgor, no rashes or lesions noted. Limitations: no limitations Course Vital Signs 08/01/19 08/01/19 15:26 16:50 Temperature 98.0 F 98.0 F Pulse Rate 93 93 Respiratory 20 20 Rate Blood Pressure 102/63 102/63 O2 Sat by Pulse 95 95 Oximetry Medical Decision Making - Medical Decision Making Patient is a 59-year-old male here requesting a new PICC line. Vitals are stable, afebrile. Patient sees an infectious disease doctor in [facility]. I discussed with patient that we do not insert new PICC lines in the emergency department. We attempted to contact the [employer] who does not perform these procedures in the ER. Interventional radiology is gone for today. We did recommend starting an IV for 1 dose of vancomycin however patient declined this. He states he will discuss his doctor tomorrow. He is requesting to be discharged. Patient is stable for discharge. Return parameters were discussed with the patient and he verbalized understanding. Case discussed with Dr. Rodas. Disposition Clinical Impression: Displacement of peripherally inserted central catheter (PICC) Disposition: HOME SELF-CARE Condition: Stable Instructions (If sedation given, give patient instructions): Normal Exam (ED) Additional Instructions: Please return to the Emergency Department if symptoms worsen or any other concerns. Follow-up with PCP as discussed tomorrow. Is patient prescribed a controlled substance at d/c from ED?: No Referrals: Reggie Edward MD [Primary Care Provider] - 1-2 days
== END 2019-08-01 16:50 | disposition home or self-care (01) ==
LOC: EC 15:11
DX: T82.524A Displacement of infusion catheter, initial encounter (principal); M00.9 Pyogenic arthritis, unspecified; K21.9 Gastro-esophageal reflux disease without esophagitis; M19.90 Unspecified osteoarthritis, unspecified site; F17.200 Nicotine dependence, unspecified, uncomplicated; Z88.5 Allergy status to narcotic agent; Z79.01 Long term (current) use of anticoagulants; Z79.890 Hormone replacement therapy; Z79.891 Long term (current) use of opiate analgesic; Z79.899 Other long term (current) drug therapy; Z86.14 Personal history of Methicillin resistant Staphylococcus aureus infection; Z86.711 Personal history of pulmonary embolism; Z86.718 Personal history of other venous thrombosis and embolism; Z96.653 Presence of artificial knee joint, bilateral; Z97.8 Presence of other specified devices
CPT/HCPCS: 99282

== ENCOUNTER → 2019-09-29 | Outpatient (CLI) | payer MEDICARE | END | disposition home or self-care (01) | LOC: LABWHC1 07:33 | PROVIDERS: ATTEND Orthopaedic Surgery | DX: Z53.9 Procedure and treatment not carried out, unspecified reason (principal) ==

== ENCOUNTER 2019-10-10 13:32 | Inpatient (IN) | payer MEDICARE ==
[2019-10-10] MEDS ORDERED: SODIUM CHLORIDE 0.9% 1,000 ML IV STA ×2 (13:51→14:25)
[2019-10-10] MEDS ORDERED: ONDANSETRON 4 MG/2 ML VIAL IVP STA (13:51)
[2019-10-10] MEDS ORDERED: PANTOPRAZOLE 40 MG/10 ML VIAL IVP ONE (13:52)
[2019-10-10] MEDS: SODIUM CHLORIDE 0.9% 1,000 ML IV STA ×2 (14:18→17:55)
[2019-10-10 14:24] LABS: Anisocytosis Slight; Basophils # (A) 0.1 k/uL (0-0.2); Basophils % (A) 0 %; Eosinophils # (A) 0.2 k/uL (0-0.7); Eosinophils % (A) 1 %; HCT 32.5 % (39.0-53.0); HGB 9.2 gm/dL (13.0-17.5); Hypochromasia Marked; Lymphocytes # (A) 0.8 k/uL (1.0-4.8); Lymphocytes % (A) 5 %; MCH 24.9 pg (25.0-35.0); MCHC 28.1 g/dL (31.0-37.0); MCV 88.5 fL (80.0-100.0); Mean Platelet Volume 7.6; Monocytes # (A) 0.9 k/uL (0-1.0); Monocytes % (A) 6 %; Neutrophils # (A) 14.5 k/uL (1.3-7.7); Neutrophils % (A) 87 %; Platelet Count 377 k/uL (150-450); Poikilocytosis Slight; RBC 3.67 m/uL (4.30-5.90); RDW 19.3 % (11.5-15.5); WBC 16.7 k/uL (3.8-10.6)
[2019-10-10] MEDS ORDERED: OCTREOTIDE 100 MCG/ML INJ IVP STA (14:25)
[2019-10-10 14:28] LABS: African American GFR (CKD) >90 (>60 ml/min/1.73 sqM); Anion Gap 15 mmol/L; Blood Urea Nitrogen 13 mg/dL (9-20); Carbon Dioxide 30 mmol/L (22-30); Chloride 94 mmol/L (98-107); Glucose 146 mg/dL (74-99); Potassium 4.1 mmol/L (3.5-5.1); Sodium 139 mmol/L (137-145)
[2019-10-10 14:29] LABS: ALT 11 U/L (4-49); AST 29 U/L (17-59); Alcohol 47 mg/dL; Alkaline Phosphatase 129 U/L (38-126); Amylase 55 U/L (30-110); Non-African American GFR(CKD) >90 (>60 ml/min/1.73 sqM); Total Bilirubin 0.9 mg/dL (0.2-1.3); Total Protein 7.1 g/dL (6.3-8.2)
[2019-10-10] MEDS ORDERED: LORazepam 2 MG/ML INJ IV STA (14:33)
[2019-10-10] MEDS ORDERED: METOCLOPRAMIDE 5 MG/ML 2 ML VIAL IVP STA (14:36)
--- NOTE | 2019-10-10 14:45 | ED ---
General Adult HPI - General Source: patient, EMS, RN notes reviewed, old records reviewed Mode of arrival: EMS Limitations: no limitations <Luiza May - Last Filed: 10/10/19 15:47> <Rosa Maria Esposito - Last Filed: 10/10/19 16:36> - General Chief complaint: Nausea/Vomiting/Diarrhea Stated complaint: Nausea,Vomiting Time Seen by Provider: 10/10/19 13:35 - History of Present Illness Initial comments: Patient is a 59-year-old male who presents emergency department today for evaluation with chief complaint of nausea vomiting for the past 24 hours. He reports his history of alcohol abuse. He reports that he's had multiple buckets of coffee ground emesis around home according to EMS. He arrives to Emergency Department after receiving Zofran from EMS with persistent vomiting. Patient reports that he is currently on Xarelto also with a history of PEs. 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 Patient states that he did drink last night and reports to drinking a few beers daily. (Luiza May) - Related Data Home Medications Medication Instructions Recorded Confirmed Rivaroxaban [Xarelto] 20 mg PO DAILY 05/06/18 07/19/19 Acetaminophen Tab [Tylenol] 1,000 mg PO Q8H 07/10/19 07/19/19 Ferrous Sulfate [Iron (65 MG 325 mg PO BID 07/10/19 07/19/19 Elemental)] Multivitamins, Thera [Multivitamin 1 tab PO DAILY 07/10/19 07/19/19 (formulary)] Potassium Chloride ER [K-Dur 10] 10 meq PO BID 07/10/19 07/19/19 Sucralfate [Carafate] 1 gm PO BID 07/10/19 07/19/19 Tamsulosin [Flomax] 0.4 mg PO DAILY 07/10/19 07/19/19 Furosemide [Lasix] 20 mg PO BID 07/19/19 07/19/19 L.acidoph,Paracasei, B.lactis 1 cap PO BID 07/19/19 07/19/19 [Probiotic] Levothyroxine Sodium [Synthroid] 25 mcg PO AC-BRKFST 07/19/19 07/19/19 Polyethylene Glycol 3350 [Miralax] 17 gm PO DAILY PRN 07/19/19 07/19/19 Previous Rx's Medication Instructions Recorded Budesonide [Pulmicort] 1 mg INHALATION RT-BID ml 07/24/19 Gabapentin [Neurontin] 300 mg PO TID #9 cap 07/24/19 Ipratropium-Albuterol Nebulize 3 ml INHALATION Q4H PRN ml 07/24/19 [Duoneb 0.5 mg-3 mg/3 ml Soln] Ipratropium-Albuterol Nebulize 3 ml INHALATION RT-QID ml 07/24/19 [Duoneb 0.5 mg-3 mg/3 ml Soln] Pantoprazole [Protonix] 40 mg PO DAILY@0730 tablet.dr 07/24/19 Thiamine [Vitamin B-1] 100 mg PO DAILY tab 07/24/19 Vancomycin HCl in 5 % Dextrose 1 gm IV Q12HR #60 plast..bag 07/24/19 [Vancomycin 1 Gram/250 ml-D5w] guaiFENesin SYRUP 100MG/5ML 200 mg PO TID PRN ml 07/24/19 [Robitussin] guaiFENesin [Mucinex] 1,200 mg PO Q12HR #1 tablet.er 07/24/19 oxyCODONE HCL [OxyIR] 5 mg PO Q8H PRN #9 tab 07/24/19 Allergies Allergy/AdvReac Type Severity Reaction Status Date / Time tramadol AdvReac Mild Itching Verified 07/10/19 11:57 Review of Systems ROS Other: All systems not noted in ROS Statement are negative. <Luiza May - Last Filed: 10/10/19 15:47> ROS Other: All systems not noted in ROS Statement are negative. <Rosa Maria Esposito - Last Filed: 10/10/19 16:36> ROS Statement: Those systems with pertinent positive or pertinent negative responses have been documented in the HPI. Past Medical History Past Medical History: Deep Vein Thrombosis (DVT), GERD/Reflux, Osteoarthritis (OA), Pulmonary Embolus (PE), Seizure Disorder, Syncope Additional Past Medical History / Comment(s): Alcoholism, recent hospitalization for bilateral pulmonary embolism with clot occluding the left pulmonary artery and evidence of right ventricular strain pattern maintained on anticoagulation, COPD, chronic hypoxic respiratory failure, FEV1 of 51% of predicted with chronic hypoxic respiratory failure, chronic smoker carries more than on the PACU smoking history, alcoholism, history of delirium tremens, history of recurrent falls, history of rib fractures related to falls, GERD, diverticulosis, seizure disorder, osteoarthritis, history of small bowel obstruction secondary to incarcerated right inguinal hernia, History of Any Multi-Drug Resistant Organisms: MRSA Date of last positivie culture/infection: 12/13/18 MDRO Source:: Knee Aspirate Past Surgical History: Orthopedic Surgery Additional Past Surgical History / Comment(s): Colonoscopies and polypectomies, 10/21/15 normal cardiac cath, multiple inguinal hernia surg., bilateral knee arthroscopies and pt states bilateral knee arthroplasties."had blood clots removed from lungs at [facility], i'not sure what they did". Knee surgery- 7 surgeries on the left knee Past Anesthesia/Blood Transfusion Reactions: No Reported Reaction Past Psychological History: Anxiety, Depression Smoking Status: Current some day smoker Past Alcohol Use History: Occasional Past Drug Use History: None Reported - Past Family History Father Family Medical History: Coronary Artery Disease (CAD), Myocardial Infarction (NH) Additional Family Medical History / Comment(s): Father of a NH at the age of 73 yrs. Mother Family Medical History: Cancer Additional Family Medical History / Comment(s): BREAST CA <Luiza May - Last Filed: 10/10/19 15:47> General Exam Limitations: no limitations General appearance: alert, in no apparent distress Head exam: Present: atraumatic, normocephalic, normal inspection Eye exam: Present: normal appearance, PERRL, EOMI. Absent: scleral icterus, conjunctival injection, periorbital swelling ENT exam: Present: normal exam, mucous membranes moist Neck exam: Present: normal inspection. Absent: tenderness, meningismus, lymphadenopathy Respiratory exam: Present: normal lung sounds bilaterally. Absent: respiratory distress, wheezes, rales, rhonchi, stridor Cardiovascular Exam: Present: regular rate, normal rhythm, normal heart sounds. Absent: systolic murmur, diastolic murmur, rubs, gallop, clicks GI/Abdominal exam: Present: soft, tenderness (Epigastric tenderness.), normal bowel sounds. Absent: distended, guarding, rebound, rigid Extremities exam: Present: normal inspection, full ROM, normal capillary refill, other (knee immobilizer over L knee). Absent: tenderness, pedal edema, joint swelling, calf tenderness Back exam: Present: normal inspection Neurological exam: Present: alert, oriented X3, CN II-XII intact Psychiatric exam: Present: normal affect, anxious Skin exam: Present: warm, dry, intact, normal color. Absent: rash <LiloLuiza najera - Last Filed: 10/10/19 15:47> - General Exam Comments Initial Comments: 59-year-old male. Alert and oriented. Patient's in moderate discomfort, retching. Black tinged emesis. (Luiza May) Course <CintiaLuiza garcia - Last Filed: 10/10/19 15:47> Vital Signs 10/10/19 10/10/19 10/10/19 13:34 15:02 15:42 Temperature 97.6 F Pulse Rate 126 H 97 120 H Respiratory 18 18 18 Rate Blood Pressure 128/70 126/77 137/76 O2 Sat by Pulse 94 L 95 Oximetry - Reevaluation(s) Reevaluation #1: 10/10/19 15:48 Patient is reevaluated this time, is resting comfortably in bed after receiving 1 mg of Ativan, no current vomiting and this has subsided for the last 30 minutes. Patient received A GUIDED IV BY DR. ESPOSITO. IS CURRENTLY RECEIVING A SECOND LITER BOLUS. PATIENT INFORMED HE'LL BE ADMITTED TO BE TRANSFERRED TO THE ICU. (Luiza May) Medical Decision Making - Lab Data Result diagrams: 10/10/19 13:58 10/10/19 13:58 - Radiology Data Radiology results: report reviewed <Luiza May - Last Filed: 10/10/19 15:47> - Lab Data Result diagrams: 10/10/19 13:58 10/10/19 13:58 <Rosa Maria Esposito - Last Filed: 10/10/19 16:36> - Medical Decision Making 59-year-old male, history of alcoholism presents emergency department today with a concern for active upper GI bleed. Patient had multiple episodes of vomiting with coffee-ground black emesis. Patient arrives emergency department retching, was tachycardic in 125 bpm. Patient appeared in significant distress. IVs were established Patient started IV fluids, given Protonix, Zofran, Reglan and octreotide. Hemoglobin is slightly 9.2. This seems to be relatively stable but a repeat CBC will be completed in 4 hours. Patient also is on Xarelto. Patient understands he will be admitted, and Dr. Esposito discussed with Dr. Edward, Dr. Gale, and Dr. Hermosillo. Patient will be going to ICU for active upper GI bleed. (Luiza May) I was available for consultation in the emergency department. The history and physical exam were done by the midlevel provider. I was consulted for this patients care. I reviewed the case with the midlevel provider and based on their presentation of the patient, I agree with the assessment, medical decision making and plan of care as documented. I performed ultrasound guided IV to the patients RUE. I discussed the case with Dr. Bocanegra, Dr. Gale and Dr. Heromsillo. Patient remained in stable condition awaiting ICU bed Chart was dictated using [employer] dictation software. Attempts were made to correct any dictation errors however some typographical errors may persist. Patient was seen during the [facility] emergency due to the Covid-19 pandemic. (Rosa Maria Esposito) - Lab Data Lab Results 10/10/19 10/10/19 10/10/19 Range/Units 13:58 13:58 13:58 WBC 16.7 H (3.8-10.6) k/uL RBC 3.67 L (4.30-5.90) m/uL Hgb 9.2 L (13.0-17.5) gm/dL Hct 32.5 L (39.0-53.0) % MCV 88.5 (80.0-100.0) fL MCH 24.9 L (25.0-35.0) pg MCHC 28.1 L (31.0-37.0) g/dL RDW 19.3 H (11.5-15.5) % Plt Count 377 (150-450) k/uL Neutrophils % 87 % Lymphocytes % 5 % Monocytes % 6 % Eosinophils % 1 % Basophils % 0 % Neutrophils # 14.5 H (1.3-7.7) k/uL Lymphocytes # 0.8 L (1.0-4.8) k/uL Monocytes # 0.9 (0-1.0) k/uL Eosinophils # 0.2 (0-0.7) k/uL Basophils # 0.1 (0-0.2) k/uL Hypochromasia Marked Poikilocytosis Slight Anisocytosis Slight PT (9.0-12.0) sec INR (<1.2) APTT (22.0-30.0) sec Sodium 139 (137-145) mmol/L Potassium 4.1 (3.5-5.1) mmol/L Chloride 94 L (98-107) mmol/L Carbon Dioxide 30 (22-30) mmol/L Anion Gap 15 mmol/L BUN 13 (9-20) mg/dL Creatinine 0.82 (0.66-1.25) mg/dL Est GFR (CKD-EPI)AfAm >90 (>60 ml/min/1.73 sqM) Est GFR (CKD-EPI)NonAf >90 (>60 ml/min/1.73 sqM) Glucose 146 H (74-99) mg/dL Plasma Lactic Acid Chet (0.7-2.0) mmol/L Calcium 9.0 (8.4-10.2) mg/dL Magnesium (1.6-2.3) mg/dL Total Bilirubin 0.9 (0.2-1.3) mg/dL AST 29 (17-59) U/L ALT 11 (4-49) U/L Alkaline Phosphatase 129 H (38-126) U/L Troponin I (0.000-0.034) ng/mL Total Protein 7.1 (6.3-8.2) g/dL Albumin 4.0 (3.5-5.0) g/dL Amylase 55 (30-110) U/L Lipase 87 (23-300) U/L Gastric Occult Blood (Negative) Serum Alcohol 47 mg/dL Blood Type A Positive Blood Type Recheck A Pos Bld Type Recheck Status No Antibody Screen NEGATIVE Spec Expiration Date 10/13/2019235710/10/19 10/10/19 10/10/19 Range/Units 13:58 13:58 13:58 WBC (3.8-10.6) k/uL RBC (4.30-5.90) m/uL Hgb (13.0-17.5) gm/dL Hct (39.0-53.0) % MCV (80.0-100.0) fL MCH (25.0-35.0) pg MCHC (31.0-37.0) g/dL RDW (11.5-15.5) % Plt Count (150-450) k/uL Neutrophils % % Lymphocytes % % Monocytes % % Eosinophils % % Basophils % % Neutrophils # (1.3-7.7) k/uL Lymphocytes # (1.0-4.8) k/uL Monocytes # (0-1.0) k/uL Eosinophils # (0-0.7) k/uL Basophils # (0-0.2) k/uL Hypochromasia Poikilocytosis Anisocytosis PT (9.0-12.0) sec INR (<1.2) APTT 22.6 (22.0-30.0) sec Sodium (137-145) mmol/L Potassium (3.5-5.1) mmol/L Chloride (98-107) mmol/L Carbon Dioxide (22-30) mmol/L Anion Gap mmol/L BUN (9-20) mg/dL Creatinine (0.66-1.25) mg/dL Est GFR (CKD-EPI)AfAm (>60 ml/min/1.73 sqM) Est GFR (CKD-EPI)NonAf (>60 ml/min/1.73 sqM) Glucose (74-99) mg/dL Plasma Lactic Acid Chet 5.5 H* (0.7-2.0) mmol/L Calcium (8.4-10.2) mg/dL Magnesium (1.6-2.3) mg/dL Total Bilirubin (0.2-1.3) mg/dL AST (17-59) U/L ALT (4-49) U/L Alkaline Phosphatase (38-126) U/L Troponin I <0.012 (0.000-0.034) ng/mL Total Protein (6.3-8.2) g/dL Albumin (3.5-5.0) g/dL Amylase (30-110) U/L Lipase (23-300) U/L Gastric Occult Blood (Negative) Serum Alcohol mg/dL Blood Type Blood Type Recheck Bld Type Recheck Status Antibody Screen Spec Expiration Date 05/19/20 05/19/20 05/19/20 Range/Units 13:58 13:58 14:37 WBC (3.8-10.6) k/uL RBC (4.30-5.90) m/uL Hgb (13.0-17.5) gm/dL Hct (39.0-53.0) % MCV (80.0-100.0) fL MCH (25.0-35.0) pg MCHC (31.0-37.0) g/dL RDW (11.5-15.5) % Plt Count (150-450) k/uL Neutrophils % % Lymphocytes % % Monocytes % % Eosinophils % % Basophils % % Neutrophils # (1.3-7.7) k/uL Lymphocytes # (1.0-4.8) k/uL Monocytes # (0-1.0) k/uL Eosinophils # (0-0.7) k/uL Basophils # (0-0.2) k/uL Hypochromasia Poikilocytosis Anisocytosis PT 11.6 (9.0-12.0) sec INR 1.1 (<1.2) APTT (22.0-30.0) sec Sodium (137-145) mmol/L Potassium (3.5-5.1) mmol/L Chloride (98-107) mmol/L Carbon Dioxide (22-30) mmol/L Anion Gap mmol/L BUN (9-20) mg/dL Creatinine (0.66-1.25) mg/dL Est GFR (CKD-EPI)AfAm (>60 ml/min/1.73 sqM) Est GFR (CKD-EPI)NonAf (>60 ml/min/1.73 sqM) Glucose (74-99) mg/dL Plasma Lactic Acid Chet (0.7-2.0) mmol/L Calcium (8.4-10.2) mg/dL Magnesium 1.7 (1.6-2.3) mg/dL Total Bilirubin (0.2-1.3) mg/dL AST (17-59) U/L ALT (4-49) U/L Alkaline Phosphatase (38-126) U/L Troponin I (0.000-0.034) ng/mL Total Protein (6.3-8.2) g/dL Albumin (3.5-5.0) g/dL Amylase (30-110) U/L Lipase (23-300) U/L Gastric Occult Blood Positive (Negative) Serum Alcohol mg/dL Blood Type Blood Type Recheck Bld Type Recheck Status Antibody Screen Spec Expiration Date 10/10/19 14:46 EKG performed at 1357 shows sinus tachycardia of right ventricular hypertrophy. ST and T wave abnormality consider anterolateral ischemia. Abnormal EKG. Ventricular rate of 120 beats were minute. Was 192 ms. QRS duration is 74 ms. QT QTc is 314/458 ms. (Luiza May) Critical Care Time Critical Care Time: Yes Total Critical Care Time: 35 (mins) <Luiza May - Last Filed: 10/10/19 15:47> Disposition Is patient prescribed a controlled substance at d/c from ED?: No Time of Disposition: 15:54 <Luiza May - Last Filed: 10/10/19 15:47> <Rosa Maria Esposito - Last Filed: 10/10/19 16:36> Clinical Impression: Upper GI bleed, ETOH abuse, Pain in left knee Disposition: ADMITTED IP TO THIS HOSP Condition: Poor
[2019-10-10 14:59] LABS: INR 1.1 (<1.2); Prothrombin Time 11.6 sec (9.0-12.0)
--- NOTE | 2019-10-10 15:54 | XR ---
EXAMINATION TYPE: XR chest 1V DATE OF EXAM: 10/10/2019 COMPARISON: 07/19/2019 INDICATION: Vomiting blood x1 day TECHNIQUE: Single frontal view of the chest is obtained. FINDINGS: The heart size is normal. The pulmonary vasculature is normal. No suspicious infiltrates are evident. Tracheobronchial tree is visualized is normal. There appears to be an old fracture of the eighth and ninth posterior lateral ribs. These were presen t previously. IMPRESSION: 1. No acute pulmonary process. 2. Healing left lower rib fractures
[2019-10-10] MEDS ORDERED: ONDANSETRON 4 MG/2 ML VIAL IVP PRN (15:56)
[2019-10-10] MEDS ORDERED: NALOXONE 0.4 MG/ML 1 ML VIAL IV PRN (15:56)
[2019-10-10] MEDS ORDERED: THIAMINE 100 MG/ML 2 ML VIAL IM STA (16:00)
[2019-10-10] MEDS ORDERED: LORazepam 2 MG/ML INJ IV PRN ×2 (16:00)
[2019-10-10] MEDS: HYDROmorphone 0.5 MG/0.5 ML SYRINGE IVP PRN ×3 (16:33→23:11)
[2019-10-10 17:34] LABS: Glucose,Whole Blood 130 mg/dL (75-99)
[2019-10-10] MEDS: THIAMINE 100 MG TAB PO SCH (17:54)
[2019-10-10] MEDS: SODIUM CHLORIDE 0.9% 1,000 ML IV SCH (17:55)
[2019-10-10 18:19] LABS: Anisocytosis Slight; Basophils # (A) 0.1 k/uL (0-0.2); Basophils % (A) 0 %; Eosinophils # (A) 0.2 k/uL (0-0.7); Eosinophils % (A) 1 %; HCT 26.9 % (39.0-53.0); Hypochromasia Marked; Lymphocytes # (A) 0.4 k/uL (1.0-4.8); Lymphocytes % (A) 2 %; MCH 24.3 pg (25.0-35.0); MCHC 27.2 g/dL (31.0-37.0); MCV 89.4 fL (80.0-100.0); Monocytes # (A) 0.8 k/uL (0-1.0); Monocytes % (A) 5 %; Neutrophils # (A) 16.5 k/uL (1.3-7.7); Neutrophils % (A) 91 %; Platelet Count 231 k/uL (150-450); RBC 3.02 m/uL (4.30-5.90); RDW 19.6 % (11.5-15.5); WBC 18.2 k/uL (3.8-10.6)
[2019-10-10 18:27] LABS: HGB 7.3 gm/dL (13.0-17.5)
[2019-10-10] MEDS ORDERED: THIAMINE 100 MG/ML 2 ML VIAL IM ONE (19:00)
[2019-10-10] MEDS: LORazepam 2 MG/ML INJ IV PRN (19:56)
[2019-10-10] MEDS: PANTOPRAZOLE 40 MG/10 ML VIAL IV SCH (19:56)
[2019-10-10] MEDS: NICOTINE 21MG/24HR PATCH TRANSDERM SCH (22:55)
[2019-10-11] MEDS: LORazepam 2 MG/ML INJ IV PRN ×5 (00:05→23:59)
[2019-10-11] MEDS: HYDROmorphone 0.5 MG/0.5 ML SYRINGE IVP PRN ×5 (03:17→23:58)
[2019-10-11] MEDS: SODIUM CHLORIDE 0.9% 1,000 ML IV SCH ×2 (04:48→15:04)
[2019-10-11 05:09] LABS: Anisocytosis Slight; Basophils % (A) 0 %; Eosinophils # (A) 0.1 k/uL (0-0.7); Eosinophils % (A) 1 %; HCT 29.5 % (39.0-53.0); HGB 8.3 gm/dL (13.0-17.5); Hypochromasia Marked; Lymphocytes # (A) 0.9 k/uL (1.0-4.8); Lymphocytes % (A) 5 %; MCHC 28.1 g/dL (31.0-37.0); MCV 92.5 fL (80.0-100.0); Mean Platelet Volume 8.2; Monocytes # (A) 0.9 k/uL (0-1.0); Monocytes % (A) 4 %; Neutrophils # (A) 18.8 k/uL (1.3-7.7); Neutrophils % (A) 89 %; Platelet Count 185 k/uL (150-450); Poikilocytosis Moderate; RBC 3.19 m/uL (4.30-5.90); RDW 18.9 % (11.5-15.5)
[2019-10-11 05:22] LABS: African American GFR (CKD) >90 (>60 ml/min/1.73 sqM); Anion Gap 3 mmol/L; Blood Urea Nitrogen 10 mg/dL (9-20); Calcium 7.5 mg/dL (8.4-10.2); Carbon Dioxide 30 mmol/L (22-30); Chloride 104 mmol/L (98-107); Glucose 110 mg/dL (74-99); Non-African American GFR(CKD) >90 (>60 ml/min/1.73 sqM); Sodium 137 mmol/L (137-145)
[2019-10-11] MEDS: THIAMINE 100 MG TAB PO SCH ×2 (07:29→15:02)
[2019-10-11] MEDS: PANTOPRAZOLE 40 MG/10 ML VIAL IV SCH ×2 (07:33→20:13)
[2019-10-11] MEDS: NICOTINE 21MG/24HR PATCH TRANSDERM SCH (07:34)
[2019-10-11] MEDS ORDERED: IPRATROPIUM-ALBUTEROL 3 ML NEB INHALATION PRN (08:10)
--- NOTE | 2019-10-11 08:15 | XR ---
EXAMINATION TYPE: XR chest 1V DATE OF EXAM: 10/11/2019 COMPARISON: Prior chest 10/10/[address] 07/20/2019 HISTORY: Difficulty breathing TECHNIQUE: Single frontal view of the chest is obtained. FINDINGS: Findings are stable compared to prior exam. There is blunting of the costophrenic angles. Heart healing left-sided rib fractures again noted. Size is unchanged. No evident pneumothorax. There are overlying cardiac leads. Interstitium is mildly increased, there is underlying emphysema. Promin ence of the pulmonary artery could be indicative of underlying pulmonary artery hypertension. IMPRESSION: No acute process. Emphysema and additional findings above.
--- NOTE | 2019-10-11 11:51 | P.CNPUL ---
History of Present Illness Consult date: 10/11/19 Requesting physician: Reggie Edward Reason for consult: other (Upper GI bleeding) Chief complaint: Coffee-ground emesis History of present illness: This is a 59-year-old white male with history of alcoholism, deep vein thrombosis, maintained on Xarelto, degenerative joint disease, previous history of osteomyelitis involving left knee arthroplasty, GERD, pulmonary embolism, seizure disorder, chronic obstructive pulmonary disease, FEV1 is in the range of 51%, chronic hypoxic respiratory failure, history of incarcerated right inguinal hernia. Patient presented to the ER last night with 24-hour history of coffee- ground emesis. Patient was brought in by EMS, and he was noted to have a low hemoglobin, of 7.3. Patient was also noted to have positive gastric occult blood, his alcohol level was 47 on presentation, and his riley virus PCR was negative. Considering his active upper GI bleeding and low hemoglobin, patient was admitted to the intensive care unit, and I was asked to see him on consultation. In the meantime his anticoagulation treatment is on hold, patient is yet to be seen by gastroenterology on consultation for possible EGD. Patient was placed on Protonix, and he was given 1 unit of packed RBCs so far. Hemoglobin is 8.3 today. Patient is feeling better, and no further episodes of emesis or coffee-ground emesis since early this morning. Patient drinks on the average of 3-5 beers per day, he has been treated recently for osteomyelitis involving the left knee, multiple surgeries and multiple arthrocentesis procedures done in the past. Normally follows up with Dr. Hill for his left knee osteomyelitis. Patient cannot have any weightbearing on his left lower extremity because of his left knee. Review of Systems Constitutional: Reports weakness, Denies chills, Denies fever Eyes: denies blurred vision, denies pain Ears, nose, mouth and throat: Denies headache, Denies sore throat Cardiovascular: Reports chest pain, Denies shortness of breath Respiratory: Denies cough wheezing shortness of breath. Gastrointestinal: As noted in HPI. Coffee-ground emesis. Musculoskeletal: Reports frequent falls, Reports gait dysfunction, Reports limitation of motion, Denies myalgias patient is not ambulatory, cannot bear weight on the left knee because of recurrent and chronic infections involving the left knee joint. Musculoskeletal: left: knee pain, chronic pain and poor ambulation because of left knee. Integumentary: Denies pruritus, Denies rash Neurological: Denies headache blurred vision or dizziness. Psychiatric: Reports confusion, Denies anxiety, Denies depression Endocrine: Denies any cold or heat intolerance. Past Medical History Past Medical History: Deep Vein Thrombosis (DVT), GERD/Reflux, Osteoarthritis (OA), Pulmonary Embolus (PE), Seizure Disorder, Syncope Additional Past Medical History / Comment(s): Alcoholism, recent hospitalization for bilateral pulmonary embolism with clot occluding the left pulmonary artery and evidence of right ventricular strain pattern maintained on anticoagulation, COPD, chronic hypoxic respiratory failure, FEV1 of 51% of predicted with chronic hypoxic respiratory failure, chronic smoker carries more than on the PACU smoking history, alcoholism, history of delirium tremens, history of recurrent falls, history of rib fractures related to falls, GERD, diverticulosis, seizure disorder, osteoarthritis, history of small bowel obstruction secondary to incarcerated right inguinal hernia, History of Any Multi-Drug Resistant Organisms: MRSA Date of last positivie culture/infection: 12/13/18 MDRO Source:: Knee Aspirate Past Surgical History: Orthopedic Surgery Additional Past Surgical History / Comment(s): Colonoscopies and polypectomies, 10/21/15 normal cardiac cath, multiple inguinal hernia surg., bilateral knee arthroscopies and pt states bilateral knee arthroplasties."had blood clots removed from lungs at [facility], i'not sure what they did". Knee surgery- 7 surgeries on the left knee Past Anesthesia/Blood Transfusion Reactions: No Reported Reaction Past Psychological History: Anxiety, Depression Additional Psychological History / Comment(s): . Lives independently. Elderly mother. Significant other with health concerns. Ongoing tobacco use. Relates no alcohol use since his last hospital stay. Smoking Status: Current every day smoker Past Alcohol Use History: Occasional Additional Past Alcohol Use History / Comment(s): Patient is a smoker of a half a pack of cigarettes per day since he was 14 years of age.. He does have history of heavy alcohol use. He is . He lives independently. Past Drug Use History: None Reported Additional Drug Use History / Comment(s): Pt states in the past he had used cocaine but none for 20 years. He denies ever abusing prescription drugs. - Past Family History Father Family Medical History: Coronary Artery Disease (CAD), Myocardial Infarction ([place]) Additional Family Medical History / Comment(s): Father of a [place] at the age of 73 yrs. Mother Family Medical History: Cancer Additional Family Medical History / Comment(s): BREAST CA Medications and Allergies Home Medications Medication Instructions Recorded Confirmed Type Multivitamins, Thera [Multivitamin 1 tab PO DAILY 07/10/19 10/10/19 History (formulary)] Thiamine [Vitamin B-1] 100 mg PO DAILY tab 07/24/19 10/10/19 Rx Folic Acid 1 mg PO DAILY 10/10/19 10/10/19 History HYDROcodone/APAP 10-325MG [[place] 1 tab PO Q4H PRN 10/10/19 10/10/19 History 10-325] Ipratropium-Albuterol Nebulize 3 ml INHALATION RT-QID PRN 10/10/19 10/10/19 History [Duoneb 0.5 mg-3 mg/3 ml Soln] Loperamide [Imodium] 2 mg PO Q6H PRN 10/10/19 10/10/19 History Magnesium Oxide 400 mg PO HS 10/10/19 10/10/19 History Pantoprazole [Protonix] 40 mg PO DAILY 10/10/19 10/10/19 History Rivaroxaban [Xarelto] 20 mg PO DAILY 10/10/19 10/10/19 History Varenicline Tartrate [Chantix See Taper PO DIRECTED 10/10/19 10/10/19 History Starter Pack] busPIRone HCl [Buspar] 10 mg PO BID 10/10/19 10/10/19 History hydrOXYzine PAMOATE [Vistaril] 25 mg PO BID PRN 10/10/19 10/10/19 History traZODone HCL 50 mg PO HS 10/10/19 10/10/19 History Allergies Allergy/AdvReac Type Severity Reaction Status Date / Time tramadol AdvReac Mild Rash/Hives Verified 10/10/19 16:56 Physical Exam Vitals: Vital Signs Temp Pulse Pulse Resp BP BP Pulse Ox 10/11/19 07:00 96 14 102/66 99 10/11/19 06:00 94 15 91/62 97 10/11/19 05:00 103 H 13 98/58 97 10/11/19 04:00 98.5 F 113 H 16 104/72 96 10/11/19 03:00 114 H 10 L 93/66 97 10/11/19 02:00 93 12 104/67 92 L 10/11/19 01:00 90 12 98 10/11/19 00:26 107 H 13 107/81 100 10/11/19 00:00 98.2 F 104 H 10 L 109/87 99 10/10/19 23:02 98.4 F 109 H 19 107/75 10/10/19 23:00 109 H 33 H 109/82 99 10/10/19 22:00 104 H 11 L 103/78 99 10/10/19 21:03 98.1 F 105 H 6 L 117/76 10/10/19 21:00 104 H 13 110/79 100 10/10/19 20:33 97.9 F 110 H 19 118/83 10/10/19 20:23 98.4 F 110 H 19 110/73 99 10/10/19 20:00 98.4 F 109 H 5 L 122/88 97 10/10/19 19:00 112 H 15 129/101 100 10/10/19 18:00 112 H 12 99 10/10/19 17:50 108 H 8 L 99 10/10/19 17:40 113 H 10 L 135/88 98 10/10/19 17:35 98.3 F 115 H 18 135/88 94 L 10/10/19 17:30 98.3 F 117 H 10 L 84 L 10/10/19 17:14 98.3 F 112 H 18 137/81 99 10/10/19 16:35 112 H 18 137/81 99 10/10/19 15:42 120 H 18 137/76 10/10/19 15:02 97 18 126/77 95 10/10/19 13:34 97.6 F 126 H 18 128/70 94 L Intake and Output 10/10/19 10/11/19 10/11/19 22:59 06:59 14:59 Intake Total 500 1110 200 Output Total 600 225 50 Balance -100 885 150 Intake: IV 500 700 200 Sodium Chloride 0.9% 1, 500 700 200 000 ml @ 100 mls/hr IV . Q10H [facility] Rx#:[id number] Intake, IV Titration 100 Amount Sodium Chloride 0.9% 1, 100 000 ml @ 100 mls/hr IV . Q10H [facility] Rx#:[id number] Blood Product 0 310 Rc As-1 Unit 0 310 [id number] Output: Urine 600 225 50 Other: Voiding Method Urinal Urinal Urinal Weight 72.575 kg 63.8 kg GENERAL EXAM: Alert, thin-looking 59-year-old white male, in no distress. HEAD: Normocephalic/atraumatic. EYES: Normal reaction of pupils, equal size. Conjunctiva pink, sclera white. NOSE: Clear with pink turbinates. THROAT: No erythema or exudates. NECK: No masses, no JVD, no thyroid enlargement, no adenopathy. CHEST: No chest wall deformity. Symmetrical expansion. LUNGS: Diminished air entry with scattered rhonchi, and wheezing on forced expiratory maneuver. CVS: Regular rate and rhythm, normal S1 and S2, no gallops, no murmurs, no rubs ABDOMEN: Soft, nontender. No hepatosplenomegaly, normal bowel sounds, no g uarding or rigidity. EXTREMITIES: No clubbing, surgical scars and surgical changes noted on the left knee MUSCULOSKELETAL: Muscle strength and tone normal. SPINE: No scoliosis or deformity SKIN: Surgical changes/left knee otherwise unremarkable. CENTRAL NERVOUS SYSTEM: Alert and oriented -2. No focal deficits, tone is normal in all 4 extremities. PSYCHIATRIC: normal mental status examination. Normal mood and affect. Results - Laboratory Findings CBC and BMP: 10/11/19 04:53 10/11/19 04:53 PT/INR, D-dimer PT 11.6 sec (9.0-12.0) 10/10/19 13:58 INR 1.1 (<1.2) 10/10/19 13:58 Abnormal lab findings: Abnormal Labs 10/10/19 10/10/19 10/10/19 13:58 13:58 13:58 WBC 16.7 H RBC 3.67 L Hgb 9.2 L Hct 32.5 L MCH 24.9 L MCHC 28.1 L RDW 19.3 H Neutrophils # 14.5 H Lymphocytes # 0.8 L Chloride 94 L Creatinine Glucose 146 H POC Glucose (mg/dL) Plasma Lactic Acid Chet Calcium Alkaline Phosphatase 129 H Crossmatch See Detail 10/10/19 10/10/19 10/10/19 13:58 17:32 18:02 WBC 18.2 H RBC 3.02 L Hgb 7.3 L D Hct 26.9 L MCH 24.3 L MCHC 27.2 L RDW 19.6 H Neutrophils # 16.5 H Lymphocytes # 0.4 L Chloride Creatinine Glucose POC Glucose (mg/dL) 130 H Plasma Lactic Acid Chet 5.5 H* Calcium Alkaline Phosphatase Crossmatch 10/11/19 10/11/19 04:53 04:53 WBC 21.0 H RBC 3.19 L Hgb 8.3 L Hct 29.5 L MCH MCHC 28.1 L RDW 18.9 H Neutrophils # 18.8 H Lymphocytes # 0.9 L Chloride Creatinine 0.61 L Glucose 110 H POC Glucose (mg/dL) Plasma Lactic Acid Chet Calcium 7.5 L Alkaline Phosphatase Crossmatch - Diagnostic Findings Chest x-ray: image reviewed (Chest x-ray showed COPD changes otherwise unremarkable.) Assessment and Plan Assessment: Impression: Acute upper GI bleeding, differential diagnoses includes erosive gastritis, peptic ulcer disease, and esophageal varices. 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 History of alcohol abuse Gait dysfunction secondary to left knee osteoarthritis and osteomyelitis Chronic smoker History of seizure disorder History of previous GI bleeding and EGD back in February of 2018 showed linear erosions and ulceration in the mid and distal esophagus. There was also ev idence of esophagitis and moderate sized hiatal hernia. Generalized anxiety disorder. Recommendation: Keep patient nothing by mouth for now. Transfuse to a hemoglobin above 7. And monitor serial hemoglobin and hematocrit. GI consultation for possible EGD Protonix 40 mg IV push twice a day [facility] protocol for alcohol withdrawal Infectious disease to evaluate for his left knee chronic issues, patient was seen on outpatient basis and he was receiving antibiotics by infectious disease. Bronchodilators for underlying COPD Hold Xarelto for now, will closely monitor for deep vein thrombosis or thromb oembolic disease. If patient could not be started on Xarelto again, may have consider IVC filter. Resume home meds. Except Xarelto. We'll continue to follow. Time with Patient: Greater than 30
[2019-10-11] MEDS: IPRATROPIUM-ALBUTEROL 3 ML NEB INHALATION SCH ×2 (12:27→20:14)
--- NOTE | 2019-10-11 13:21 | P.CONS ---
History of Present Illness - Reason for Consult Consult date: 10/11/19 Coffee-ground emesis Requesting physician: Reggie Edward - Chief Complaint Vomiting blood - History of Present Illness 59-year-old male with a medical history significant for EtOH abuse, history of osteomyelitis involving left knee arthroplasty, GERD, DVT and PE on Xarelto therapy, and COPD who presented to the hospital due to concerns over nausea, vomiting and vomiting of blood. The patient reports multiple episodes of vomiting of nonbloody nonbilious emesis yesterday. However he reports that this subsequently turned into vomiting of black coffee-ground material. He denies any pain in the abdomen but does report some soreness. Last bowel movement was last night and normal in color with no melena or gross bleeding noted. The patient does have a history of alcohol abuse and reports generally drinking 3-5 beers daily. He previously had presented for similar complaints in February 2018 when EGD was performed and significant for LA grade D esophagitis and a moderate hiatal hernia. On current presentation patient was found to have a hemoglobin of 7.3, currently 8.3 after 1 unit of packed red blood cells with gastric occult testing positive, total bilirubin 0.9, alkaline phosphatase 129, AST 29 and ALT 11. No further vomiting since presentation however the patient did fail a swallowing evaluation. Review of Systems REVIEW OF SYSTEMS: CONSTITUTIONAL: Denies any fevers, chills, weight change or fatigue. CARDIOVASCULAR: Denies any chest pain, palpitations high or low blood pressures RESPIRATORY: Denies any shortness of breath, hemoptysis or cough. GENITOURINARY: No dysuria or hematuria. MUSCULOSKELETAL: No weakness reported. SKIN: Denies any new rashes or lesions, jaundice or pallor. PSYCHIATRIC: Denies any depression or anxiety. NEUROLOGY: Denies headache, denies any new focal deficits. EARS/NOSE/THROAT: No recent hearing change, congestion, nasal discharge or sore throat. EYES: No pain in eyes, discharge or change in vision. GASTROINTESTINAL: As per HPI. Past Medical History Past Medical History: Deep Vein Thrombosis (DVT), GERD/Reflux, Osteoarthritis (OA), Pulmonary Embolus (PE), Seizure Disorder, Syncope Additional Past Medical History / Comment(s): Alcoholism, recent hospitalization for bilateral pulmonary embolism with clot occluding the left pulmonary artery and evidence of right ventricular strain pattern maintained on anticoagulation, COPD, chronic hypoxic respiratory failure, FEV1 of 51% of predicted with chronic hypoxic respiratory failure, chronic smoker carries more than on the PACU smoking history, alcoholism, history of delirium tremens, history of recurrent falls, history of rib fractures related to falls, GERD, diverticulosis, seizure disorder, osteoarthritis, history of small bowel obstruction secondary to incarcerated right inguinal hernia, History of Any Multi-Drug Resistant Organisms: MRSA Year Discovered:: 12/13/18 MDRO Source:: Knee Aspirate Past Surgical History: Orthopedic Surgery Additional Past Surgical History / Comment(s): Colonoscopies and polypectomies, 10/21/15 normal cardiac cath, multiple inguinal hernia surg., bilateral knee arthroscopies and pt states bilateral knee arthroplasties."had blood clots removed from lungs at [facility], i'not sure what they did". Knee surgery- 7 surgeries on the left knee Past Anesthesia/Blood Transfusion Reactions: No Reported Reaction Past Psychological History: Anxiety, Depression Additional Psychological History / Comment(s): . Lives independently. Elderly mother. Significant other with health concerns. Ongoing tobacco use. Relates no alcohol use since his last hospital stay. Smoking Status: Current every day smoker Past Alcohol Use History: Occasional Additional Past Alcohol Use History / Comment(s): Patient is a smoker of a half a pack of cigarettes per day since he was 14 years of age.. He does have history of heavy alcohol use. He is . He lives independently. Past Drug Use History: None Reported Additional Drug Use History / Comment(s): Pt states in the past he had used cocaine but none for 20 years. He denies ever abusing prescription drugs. - Past Family History Father Family Medical History: Coronary Artery Disease (CAD), Myocardial Infarction ([place]) Additional Family Medical History / Comment(s): Father of a [place] at the age of 73 yrs. Mother Family Medical History: Cancer Additional Family Medical History / Comment(s): BREAST CA Medications and Allergies Home Medications Medication Instructions Recorded Confirmed Type Multivitamins, Thera [Multivitamin 1 tab PO DAILY 07/10/19 10/10/19 History (formulary)] Thiamine [Vitamin B-1] 100 mg PO DAILY tab 07/24/19 10/10/19 Rx Folic Acid 1 mg PO DAILY 10/10/19 10/10/19 History HYDROcodone/APAP 10-325MG [[place] 1 tab PO Q4H PRN 10/10/19 10/10/19 History 10-325] Ipratropium-Albuterol Nebulize 3 ml INHALATION RT-QID PRN 10/10/19 10/10/19 History [Duoneb 0.5 mg-3 mg/3 ml Soln] Loperamide [Imodium] 2 mg PO Q6H PRN 10/10/19 10/10/19 History Magnesium Oxide 400 mg PO HS 10/10/19 10/10/19 History Pantoprazole [Protonix] 40 mg PO DAILY 10/10/19 10/10/19 History Rivaroxaban [Xarelto] 20 mg PO DAILY 10/10/19 10/10/19 History Varenicline Tartrate [Chantix See Taper PO DIRECTED 10/10/19 10/10/19 History Starter Pack] busPIRone HCl [Buspar] 10 mg PO BID 10/10/19 10/10/19 History hydrOXYzine PAMOATE [Vistaril] 25 mg PO BID PRN 10/10/19 10/10/19 History traZODone HCL 50 mg PO HS 10/10/19 10/10/19 History Allergies Allergy/AdvReac Type Severity Reaction Status Date / Time tramadol AdvReac Mild Rash/Hives Verified 10/10/19 16:56 Physical Exam Vitals: Vital Signs Temp Pulse Pulse Resp BP BP Pulse Ox 10/11/19 11:00 104 H 12 111/69 10/11/19 10:00 98 15 97/66 98 10/11/19 09:00 103 H 16 111/74 100 10/11/19 08:00 98.9 F 98 16 105/73 100 10/11/19 07:00 96 14 102/66 99 10/11/19 06:00 94 15 91/62 97 10/11/19 05:00 103 H 13 98/58 97 10/11/19 04:00 98.5 F 113 H 16 104/72 96 10/11/19 03:00 114 H 10 L 93/66 97 10/11/19 02:00 93 12 104/67 92 L 10/11/19 01:00 90 12 98 10/11/19 00:26 107 H 13 107/81 100 10/11/19 00:00 98.2 F 104 H 10 L 109/87 99 10/10/19 23:02 98.4 F 109 H 19 107/75 10/10/19 23:00 109 H 33 H 109/82 99 10/10/19 22:00 104 H 11 L 103/78 99 10/10/19 21:03 98.1 F 105 H 6 L 117/76 10/10/19 21:00 104 H 13 110/79 100 10/10/19 20:33 97.9 F 110 H 19 118/83 10/10/19 20:23 98.4 F 110 H 19 110/73 99 10/10/19 20:00 98.4 F 109 H 5 L 122/88 97 10/10/19 19:00 112 H 15 129/101 100 10/10/19 18:00 112 H 12 99 10/10/19 17:50 108 H 8 L 99 10/10/19 17:40 113 H 10 L 135/88 98 10/10/19 17:35 98.3 F 115 H 18 135/88 94 L 10/10/19 17:30 98.3 F 117 H 10 L 84 L 10/10/19 17:14 98.3 F 112 H 18 137/81 99 10/10/19 16:35 112 H 18 137/81 99 10/10/19 15:42 120 H 18 137/76 10/10/19 15:02 97 18 126/77 95 10/10/19 13:34 97.6 F 126 H 18 128/70 94 L Intake and Output 10/10/19 10/11/19 10/11/19 22:59 06:59 14:59 Intake Total 500 1110 300 Output Total 600 225 200 Balance -100 885 100 Intake: IV 500 700 300 Sodium Chloride 0.9% 1, 500 700 300 000 ml @ 100 mls/hr IV . Q10H [facility] Rx#:[id number] Intake, IV Titration 100 Amount Sodium Chloride 0.9% 1, 100 000 ml @ 100 mls/hr IV . Q10H [facility] Rx#:[id number] Blood Product 0 310 Rc As-1 Unit 0 310 [id number] Output: Urine 600 225 200 Other: Voiding Method Urinal Urinal Urinal Weight 72.575 kg 63.8 kg On physical examination, patient appears comfortable in no apparent distress. HEAD: Normocephalic, atraumatic. EYES: No scleral icterus. No conjunctival injection. MOUTH: No lesions, tongue midline. NECK: Trachea midline, no gross abnormalities. CHEST: Clear to auscultation with no wheezing or rhonchi appreciated. HEART: Regular rate and rhythm. ABDOMEN: Soft, nontender. Bowel sounds are positive. No organomegaly. No guarding or rigidity. EXTREMITIES: No pedal edema. SKIN: No rashes, no jaundice. NEUROLOGIC: Alert and oriented x3. No focal deficits. Results CBC & Chem 7: 10/11/19 04:53 10/11/19 04:53 Labs: Abnormal Lab Results - Last 24 Hours (Table) 10/10/19 10/10/19 10/10/19 Range/Units 13:58 13:58 13:58 WBC 16.7 H (3.8-10.6) k/uL RBC 3.67 L (4.30-5.90) m/uL Hgb 9.2 L (13.0-17.5) gm/dL Hct 32.5 L (39.0-53.0) % MCH 24.9 L (25.0-35.0) pg MCHC 28.1 L (31.0-37.0) g/dL RDW 19.3 H (11.5-15.5) % Neutrophils # 14.5 H (1.3-7.7) k/uL Lymphocytes # 0.8 L (1.0-4.8) k/uL Chloride 94 L (98-107) mmol/L Creatinine (0.66-1.25) mg/dL Glucose 146 H (74-99) mg/dL POC Glucose (mg/dL) (75-99) mg/dL Plasma Lactic Acid Chet (0.7-2.0) mmol/L Calcium (8.4-10.2) mg/dL Alkaline Phosphatase 129 H (38-126) U/L Crossmatch See Detail 10/10/19 10/10/19 10/10/19 Range/Units 13:58 17:32 18:02 WBC 18.2 H (3.8-10.6) k/uL RBC 3.02 L (4.30-5.90) m/uL Hgb 7.3 L D (13.0-17.5) gm/dL Hct 26.9 L (39.0-53.0) % MCH 24.3 L (25.0-35.0) pg MCHC 27.2 L (31.0-37.0) g/dL RDW 19.6 H (11.5-15.5) % Neutrophils # 16.5 H (1.3-7.7) k/uL Lymphocytes # 0.4 L (1.0-4.8) k/uL Chloride (98-107) mmol/L Creatinine (0.66-1.25) mg/dL Glucose (74-99) mg/dL POC Glucose (mg/dL) 130 H (75-99) mg/dL Plasma Lactic Acid Chet 5.5 H* (0.7-2.0) mmol/L Calcium (8.4-10.2) mg/dL Alkaline Phosphatase (38-126) U/L Crossmatch 10/11/19 10/11/19 Range/Units 04:53 04:53 WBC 21.0 H (3.8-10.6) k/uL RBC 3.19 L (4.30-5.90) m/uL Hgb 8.3 L (13.0-17.5) gm/dL Hct 29.5 L (39.0-53.0) % MCH (25.0-35.0) pg MCHC 28.1 L (31.0-37.0) g/dL RDW 18.9 H (11.5-15.5) % Neutrophils # 18.8 H (1.3-7.7) k/uL Lymphocytes # 0.9 L (1.0-4.8) k/uL Chloride (98-107) mmol/L Creatinine 0.61 L (0.66-1.25) mg/dL Glucose 110 H (74-99) mg/dL POC Glucose (mg/dL) (75-99) mg/dL Plasma Lactic Acid Chet (0.7-2.0) mmol/L Calcium 7.5 L (8.4-10.2) mg/dL Alkaline Phosphatase (38-126) U/L Crossmatch Chest x-ray: report reviewed (Chest x-ray significant for emphysema with no acute process noted) Assessment and Plan (1) Upper GI bleed Narrative/Plan: 59-year-old male with multiple medical comorbidities on anticoagulation therapy for prior history of DVT/PE who presented to the hospital reporting coffee- ground emesis. The patient reports initially having multiple episodes of nonbloody emesis however this subsequently turned into coffee-ground emesis. The patient has a history of alcohol abuse. He was previously seen for similar complaints in 2018 at which time EGD was performed in February 2018 significant for LA grade D esophagitis with a moderate size hiatal hernia and no esophageal varices noted at that time. Laboratory work on presentation was significant for a depressed hemoglobin of 7.3 subsequently 8.3 after transfusion of 1 unit of packed red blood cells. Unknown etiology, may represent Parul-Barrera tear in the setting of nausea and vomiting, esophagitis, gastritis, peptic ulcer disease or other etiology. No further episodes since presentation or reports of melanotic stool. Current Visit: Yes Status: Acute Code(s): K92.2 - GASTROINTESTINAL HEMORRHAGE, UNSPECIFIED SNOMED Code(s): 41311516 (2) ETOH abuse Current Visit: Yes Status: Acute Code(s): F10.10 - ALCOHOL ABUSE, UNCOMPLIC ATED SNOMED Code(s): 97584980 (3) Acute blood loss anemia Current Visit: No Status: Acute Code(s): D62 - ACUTE POSTHEMORRHAGIC ANEMIA SNOMED Code(s): 454662840 (4) Coffee ground emesis Current Visit: No Status: Acute Code(s): K92.0 - HEMATEMESIS SNOMED Code(s): 31988348 Plan: Supportive care Continue to monitor hemoglobin and hematocrit and transfuse as needed Patient would be okay for clear liquid diet, however failed swallow evaluation Alcohol abstinence Protonix 40 mg IV twice daily Continue ICU care Nothing by mouth after midnight Plan for EGD tomorrow for further evaluation Thank you for allowing us to participate in the care of the patient we will continue to follow
[2019-10-11] MEDS: SYMBICORT 160-4.5 MCG INHALER INHALATION SCH (20:30)
[2019-10-12] MEDS: SODIUM CHLORIDE 0.9% 1,000 ML IV SCH ×3 (00:11→16:08)
[2019-10-12] MEDS ORDERED: IOPAMIDOL CONTRAST (ORAL USE) VIAL PO PRN (00:56)
--- NOTE | 2019-10-12 00:56 | P.CONS ---
History of Present Illness - Reason for Consult Consult date: 10/11/19 leukocytosis , knee infection Requesting physician: Alejandra Hermosillo - Chief Complaint vomiting and hematemeis x few days - History of Present Illness Patient is a 59-year-old male with past medical history significant for left knee infection with MRSA for which the patient did have multiple surgeries done lately the patient has been followed by Dr. Lo at [facility] patient mention he has been off antibiotics for the last few weeks as his orthopedics is planning on aspiration of his knee to make sure that infection is gone patient has been brought to the ER yesterday for evaluation of nausea and vomiting for 24 hours in this patient who did have history of alcohol abuse and has been complaining of multiple bouts of withdrawal coffee-ground emesis patient has been complaining of pain in the epigastric area for a few sharp and burning intensity of the 7 out of 10 with no radiation and associated nausea vomiting denies any diarrhea no chest pain or shortness of the cough patient denies any worsening pain to her left knee with incision is currently healed and there is no drainage patient was noticed to have a white count of 19,000 subsequently white was up to 21,000 that prompted this infectious disease consultation we did have blood cultures are currently pending chest x-ray was negative for acute pulmonary process. Review of Systems Positive point has been mentioned in HPI rest of the systems are negative Past Medical History Past Medical History: Deep Vein Thrombosis (DVT), GERD/Reflux, Osteoarthritis (OA), Pulmonary Embolus (PE), Seizure Disorder, Syncope Additional Past Medical History / Comment(s): Alcoholism, recent hospitalization for bilateral pulmonary embolism with clot occluding the left pulmonary artery and evidence of right ventricular strain pattern maintained on anticoagulation, COPD, chronic hypoxic respiratory failure, FEV1 of 51% of predicted with chronic hypoxic respiratory failure, chronic smoker carries more than on the PACU smoking history, alcoholism, history of delirium tremens, history of recurrent falls, history of rib fractures related to falls, GERD, diverticulosis, seizure disorder, osteoarthritis, history of small bowel obstruction secondary to incarcerated right inguinal hernia, History of Any Multi-Drug Resistant Organisms: MRSA Year Discovered:: 12/13/18 MDRO Source:: Knee Aspirate Past Surgical History: Orthopedic Surgery Additional Past Surgical History / Comment(s): Colonoscopies and polypectomies, 10/21/15 normal cardiac cath, multiple inguinal hernia surg., bilateral knee arthroscopies and pt states bilateral knee arthroplasties."had blood clots removed from lungs at [facility], i'not sure what they did". Knee surgery- 7 surgeries on the left knee Past Anesthesia/Blood Transfusion Reactions: No Reported Reaction Past Psychological History: Anxiety, Depression Additional Psychological History / Comment(s): . Lives independently. Elderly mother. Significant other with health concerns. Ongoing tobacco use. Relates no alcohol use since his last hospital stay. Smoking Status: Current every day smoker Past Alcohol Use History: Occasional Additional Past Alcohol Use History / Comment(s): Patient is a smoker of a half a pack of cigarettes per day since he was 14 years of age.. He does have history of heavy alcohol use. He is . He lives independently. Past Drug Use History: None Reported Additional Drug Use History / Comment(s): Pt states in the past he had used cocaine but none for 20 years. He denies ever abusing prescription drugs. - Past Family History Father Family Medical History: Coronary Artery Disease (CAD), Myocardial Infarction ([place]) Additional Family Medical History / Comment(s): Father of a [place] at the age of 73 yrs. Mother Family Medical History: Cancer Additional Family Medical History / Comment(s): BREAST [place] Medications and Allergies Home Medications Medication Instructions Recorded Confirmed Type Multivitamins, Thera [Multivitamin 1 tab PO DAILY 07/10/19 10/10/19 History (formulary)] Thiamine [Vitamin B-1] 100 mg PO DAILY tab 07/24/19 10/10/19 Rx Folic Acid 1 mg PO DAILY 10/10/19 10/10/19 History HYDROcodone/APAP 10-325MG [[place] 1 tab PO Q4H PRN 10/10/19 10/10/19 History 10-325] Ipratropium-Albuterol Nebulize 3 ml INHALATION RT-QID PRN 10/10/19 10/10/19 History [Duoneb 0.5 mg-3 mg/3 ml Soln] Loperamide [Imodium] 2 mg PO Q6H PRN 10/10/19 10/10/19 History Magnesium Oxide 400 mg PO HS 10/10/19 10/10/19 History Pantoprazole [Protonix] 40 mg PO DAILY 10/10/19 10/10/19 History Rivaroxaban [Xarelto] 20 mg PO DAILY 10/10/19 10/10/19 History Varenicline Tartrate [Chantix See Taper PO DIRECTED 10/10/19 10/10/19 History Starter Pack] busPIRone HCl [Buspar] 10 mg PO BID 10/10/19 10/10/19 History hydrOXYzine PAMOATE [Vistaril] 25 mg PO BID PRN 10/10/19 10/10/19 History traZODone HCL 50 mg PO HS 10/10/19 10/10/19 History Allergies Allergy/AdvReac Type Severity Reaction Status Date / Time tramadol AdvReac Mild Rash/Hives Verified 10/10/19 16:56 Physical Exam Vitals: Vital Signs Temp Pulse Resp BP Pulse Ox 10/12/19 00:00 98.7 F 112 H 23 122/78 96 10/11/19 23:00 110 H 19 117/71 99 10/11/19 22:00 110 H 18 106/71 97 10/11/19 21:00 122 H 26 H 115/76 89 L 10/11/19 20:16 113 H 10/11/19 20:00 98.1 F 106 H 35 H 117/85 94 L 10/11/19 19:00 98 11 L 115/77 99 10/11/19 18:00 101 H 18 117/74 99 10/11/19 17:00 97 6 L 113/74 100 10/11/19 16:00 101 H 16 117/77 100 10/11/19 15:00 112 H 12 118/73 94 L 10/11/19 14:00 98 16 116/74 100 10/11/19 13:00 112 H 6 L 112/72 94 L 10/11/19 12:38 107 H 10/11/19 12:27 105 H 10/11/19 12:00 97.8 F 106 H 17 115/81 97 10/11/19 11:00 104 H 12 111/69 10/11/19 10:00 98 15 97/66 98 10/11/19 09:00 103 H 16 111/74 100 10/11/19 08:00 98.9 F 98 16 105/73 100 10/11/19 07:00 96 14 102/66 99 10/11/19 06:00 94 15 91/62 97 10/11/19 05:00 103 H 13 98/58 97 10/11/19 04:00 98.5 F 113 H 16 104/72 96 10/11/19 03:00 114 H 10 L 93/66 97 10/11/19 02:00 93 12 104/67 92 L 10/11/19 01:00 90 12 98 Intake and Output 10/11/19 10/11/19 10/12/19 14:59 22:59 06:59 Intake Total 600 800 200 Output Total 400 325 175 Balance 200 475 25 Intake: IV 600 800 200 Sodium Chloride 0.9% 1, 600 800 200 000 ml @ 100 mls/hr IV . Q10H [facility] Rx#:[id number] Output: Urine 400 325 175 Other: Voiding Method Urinal Urinal Urinal GENERAL DESCRIPTION: Middle-aged male lying in bed, no distress. No tachypnea or accessory muscle of respiration use. HEENT: Shows Pallor , no scleral icterus. Oral mucous membrane is dry. NECK: Trachea central, no thyromegaly. LUNGS: Unlabored breathing. Clear to auscultation anteriorly. No wheeze or crackle. HEART: S1, S2, regular rate and rhythm. ABDOMEN: Soft, mild epigastric tenderness , guarding or rigidity EXTREMITIES: Left knee incision is currently healed there is no swelling and no warmth to the knee area and no wound and no drainage sKIN: No rash, no masses palpable. NEUROLOGICAL: The patient is awake, alert, oriented x3, mood and affect normal. Results CBC & Chem 7: 10/11/19 04:53 10/11/19 04:53 Labs: Abnormal Lab Results - Last 24 Hours (Table) 10/11/19 10/11/19 Range/Units 04:53 04:53 WBC 21.0 H (3.8-10.6) k/uL RBC 3.19 L (4.30-5.90) m/uL Hgb 8.3 L (13.0-17.5) gm/dL Hct 29.5 L (39.0-53.0) % MCHC 28.1 L (31.0-37.0) g/dL RDW 18.9 H (11.5-15.5) % Neutrophils # 18.8 H (1.3-7.7) k/uL Lymphocytes # 0.9 L (1.0-4.8) k/uL Creatinine 0.61 L (0.66-1.25) mg/dL Glucose 110 H (74-99) mg/dL Calcium 7.5 L (8.4-10.2) mg/dL Microbiology - Last 24 Hours (Table) 10/10/19 15:00 Blood Culture - Preliminary Blood No Growth after 24 hours Assessment and Plan Assessment: patient with leukocytosis which is likely multifactorial possible reactive in this patient did have a history of alcohol abuse and is present to the hospital with vomiting and hematemesis however underlying abdominal pathology such as pancreatitis plantarly excluded to be the likely source for this elevated white count currently with no other obvious focus of infection chest x-ray was negative in the left knee currently with no obvious infection (1) Leukocytosis Current Visit: Yes Status: Acute Code(s): D72.829 - ELEVATED WHITE BLOOD CELL COUNT, UNSPECIFIED SNOMED Code(s): 350533447 Plan: 1-we will start the patient on Zosyn 3.375 g every 8 hour 2-check a CT abdominal pelvis with oral contrast once his nausea vomiting improves 3-IV fluid We will follow on clinical condition and cultures to further adjust medication if needed Thank you for this consultation we will follow the patient along with you Time with Patient: Greater than 30
[2019-10-12] MEDS: PIPERACILLIN-TAZOBACTAM 3.375 GM in SODIUM CHLORIDE 0.9% 100 ML IVPB SCH ×3 (02:26→16:07)
[2019-10-12] MEDS: HYDROmorphone 0.5 MG/0.5 ML SYRINGE IVP PRN ×4 (05:10→22:04)
[2019-10-12] MEDS: NICOTINE 21MG/24HR PATCH TRANSDERM SCH (05:14)
[2019-10-12] MEDS: THIAMINE 100 MG TAB PO SCH ×2 (06:10→16:06)
[2019-10-12] MEDS: IPRATROPIUM-ALBUTEROL 3 ML NEB INHALATION SCH ×3 (07:57→18:57)
[2019-10-12] MEDS: SYMBICORT 160-4.5 MCG INHALER INHALATION SCH ×2 (07:57→18:57)
[2019-10-12] MEDS: PANTOPRAZOLE 40 MG/10 ML VIAL IV SCH ×2 (08:05→20:44)
--- NOTE | 2019-10-12 08:05 | XR ---
EXAMINATION TYPE: XR chest 1V DATE OF EXAM: 10/12/2019 COMPARISON: Prior chest x-ray 10/11/2019 HISTORY: Gastrointestinal bleeding, difficulty breathing TECHNIQUE: Single frontal view of the chest is obtained. FINDINGS: Patient is rotated and there are overlying cardiac leads. Pleural parenchymal changes are similar to prior exam. Heart size is unchanged. There is no evident pneumothorax or pleural effusion. IMPRESSION: Emphysema, interstitial changes are present.
[2019-10-12] MEDS: LORazepam 2 MG/ML INJ IV PRN ×2 (08:07→17:48)
--- NOTE | 2019-10-12 09:02 | P.HPIM ---
History of Present Illness H&P Date: 10/11/19 Chief Complaint: hematemesis Addy Villalpando is a 59-year-old male with a medical history significant for EtOH abuse, history of osteomyelitis involving left knee arthroplasty, GERD, DVT and PE on Xarelto, and COPD who presented to the hospital after multiple episodes of hematemesis at home. He states that since his last discharge from [facility] he has been spending most of his time resting and drinking beer. He reports drinking about 5 beer per day as well as his prescribed [place]. Pt states he initiallly vomited stomach contents but then noticed bright blood and coffee ground so called EMS. He reports normal bowel movements and denies melena. On presentation patient was found to have a hemoglobin of 7.3, currently 8.3 after 1 unit of packed red blood cells with gastric occult testing positive, total bilirubin 0.9, alkaline phosphatase 129, AST 29 and ALT 11. No further vomiting since presentation however the patient did fail a swallowing evaluation. Review of Systems All systems: negative Constitutional: Reports as per HPI, Reports malaise, Denies chills, Denies fever Eyes: denies blurred vision, denies pain Ears, nose, mouth and throat: Denies headache, Denies sore throat Cardiovascular: Denies chest pain, Denies shortness of breath Respiratory: Denies cough Gastrointestinal: Reports as per HPI, Reports abdominal pain, Reports coffee ground emesis, Reports nausea, Reports vomiting, Denies diarrhea Musculoskeletal: Denies myalgias Integumentary: Denies pruritus, Denies rash Neurological: Denies numbness, Denies weakness Psychiatric: Denies anxiety, Denies depression Endocrine: Denies fatigue, Denies weight change Past Medical History Past Medical History: Deep Vein Thrombosis (DVT), GERD/Reflux, Osteoarthritis (OA), Pulmonary Embolus (PE), Seizure Disorder, Syncope Additional Past Medical History / Comment(s): Alcoholism, recent hospitalization for bilateral pulmonary embolism with clot occluding the left pulmonary artery and evidence of right ventricular strain pattern maintained on anticoagulation, COPD, chronic hypoxic respiratory failure, FEV1 of 51% of predicted with chronic hypoxic respiratory failure, chronic smoker carries more than on the PACU sm oking history, alcoholism, history of delirium tremens, history of recurrent falls, history of rib fractures related to falls, GERD, diverticulosis, seizure disorder, osteoarthritis, history of small bowel obstruction secondary to incarcerated right inguinal hernia, History of Any Multi-Drug Resistant Organisms: MRSA Date of last positivie culture/infection: 12/13/18 MDRO Source:: Knee Aspirate Past Surgical History: Orthopedic Surgery Additional Past Surgical History / Comment(s): Colonoscopies and polypectomies, 10/21/15 normal cardiac cath, multiple inguinal hernia surg., bilateral knee arthroscopies and pt states bilateral knee arthroplasties."had blood clots iva lizzette [facility], i'not sure what they did". Knee surgery- 7 surgeries on the left knee Past Anesthesia/Blood Transfusion Reactions: No Reported Reaction Past Psychological History: Anxiety, Depression Additional Psychological History / Comment(s): . Lives independently. Elderly mother. Significant other with health concerns. Ongoing tobacco use. Relates no alcohol use since his last hospital stay. Smoking Status: Current every day smoker Past Alcohol Use History: Occasional Additional Past Alcohol Use History / Comment(s): Patient is a smoker of a half a pack of cigarettes per day since he was 14 years of age.. He does have history of heavy alcohol use. He is . He lives independently. Past Drug Use History: None Reported Additional Drug Use History / Comment(s): Pt states in the past he had used cocaine but none for 20 years. He denies ever abusing prescription drugs. - Past Family History Father Family Medical History: Coronary Artery Disease (CAD), Myocardial Infarction ([place]) Additional Family Medical History / Comment(s): Father of a [place] at the age of 73 yrs. Mother Family Medical History: Cancer Additional Family Medical History / Comment(s): BREAST CA Medications and Allergies Home Medications Medication Instructions Recorded Confirmed Type Multivitamins, Thera [Multivitamin 1 tab PO DAILY 07/10/19 10/10/19 History (formulary)] Thiamine [Vitamin B-1] 100 mg PO DAILY tab 07/24/19 10/10/19 Rx Folic Acid 1 mg PO DAILY 10/10/19 10/10/19 History HYDROcodone/APAP 10-325MG [[place] 1 tab PO Q4H PRN 10/10/19 10/10/19 History 10-325] Ipratropium-Albuterol Nebulize 3 ml INHALATION RT-QID PRN 10/10/19 10/10/19 History [Duoneb 0.5 mg-3 mg/3 ml Soln] Loperamide [Imodium] 2 mg PO Q6H PRN 10/10/19 10/10/19 History Magnesium Oxide 400 mg PO HS 10/10/19 10/10/19 History Pantoprazole [Protonix] 40 mg PO DAILY 10/10/19 10/10/19 History Rivaroxaban [Xarelto] 20 mg PO DAILY 10/10/19 10/10/19 History Varenicline Tartrate [Chantix See Taper PO DIRECTED 10/10/19 10/10/19 History Starter Pack] busPIRone HCl [Buspar] 10 mg PO BID 10/10/19 10/10/19 History hydrOXYzine PAMOATE [Vistaril] 25 mg PO BID PRN 10/10/19 10/10/19 History traZODone HCL 50 mg PO HS 10/10/19 10/10/19 History Allergies Allergy/AdvReac Type Severity Reaction Status Date / Time tramadol AdvReac Mild Rash/Hives Verified 10/10/19 16:56 Physical Exam Vitals: Vital Signs Temp Pulse Resp BP Pulse Ox 10/12/19 08:10 130 H 10/12/19 07:57 133 H 10/12/19 07:00 119/73 95 10/12/19 06:00 137 H 10/12/19 05:04 112 H 22 105/68 99 10/12/19 04:00 112 H 22 113/77 100 10/12/19 03:00 28 H 117/77 97 10/12/19 02:00 137 H 12 131/93 10/12/19 01:00 115 H 8 L 118/78 99 10/12/19 00:03 112 H 24 115/73 96 10/12/19 00:00 98.7 F 112 H 23 122/78 96 10/11/19 23:00 110 H 19 117/71 99 10/11/19 22:00 110 H 18 106/71 97 10/11/19 21:00 122 H 26 H 115/76 89 L 10/11/19 20:16 113 H 10/11/19 20:00 98.1 F 106 H 35 H 117/85 94 L 10/11/19 19:00 98 11 L 115/77 99 10/11/19 18:00 101 H 18 117/74 99 10/11/19 17:00 97 6 L 113/74 100 10/11/19 16:00 101 H 16 117/77 100 10/11/19 15:00 112 H 12 118/73 94 L 10/11/19 14:00 98 16 116/74 100 10/11/19 13:00 112 H 6 L 112/72 94 L 10/11/19 12:38 107 H 10/11/19 12:27 105 H 10/11/19 12:00 97.8 F 106 H 17 115/81 97 10/11/19 11:00 104 H 12 111/69 10/11/19 10:00 98 15 97/66 98 10/11/19 09:00 103 H 16 111/74 100 Intake and Output 10/11/19 10/12/19 10/12/19 22:59 06:59 14:59 Intake Total 800 1050 100 Output Total 325 300 0 Balance 475 750 100 Intake: IV 800 800 100 Sodium Chloride 0.9% 1, 800 800 100 000 ml @ 100 mls/hr IV . Q10H [facility] Rx#:[id number] Intake, IV Titration 250 Amount Piperacillin-Tazobactam 3 250 .375 gm In Sodium Chloride 0.9% 100 ml @ 25 mls/hr IVPB Q8H [facility] Rx#: [id number] Output: Urine 325 300 0 Other: Voiding Method Urinal Urinal # Bowel Movements 1 Weight 71.2 kg Gen.: Thin white male in no acute distress. Vitals reviewed HEENT: Normocephalic, atraumatic, mucous membranes moist Neck: Supple, no thyromegaly, no JVD Lymph: No cervical or axillary lymphadenopathy Cardio: Regular rate and rhythm, no murmur Lungs: Normal respiratory effort, clear throughout Abdomen: Soft, mild generalized tenderness, normal bowel sounds Extremities: Left lower extremity no erythema, generalized tenderness around left knee Neuro: Alert and oriented 3, no focal deficits Skin: Warm and dry Results CBC & Chem 7: 10/11/19 04:53 10/11/19 04:53 Labs: Microbiology - Last 24 Hours (Table) 10/10/19 15:00 Blood Culture - Preliminary Blood No Growth after 24 hours Thrombosis Risk Factor Assmnt - Choose All That Apply Any of the Below Risk Factors Present?: Yes Each Factor Represents 1 point: Age 41-60 years Thrombosis Risk Factor Assessment Total Risk Factor Score: 1 Thrombosis Risk Factor Assessment Level: Low Risk Assessment and Plan (1) ETOH abuse Current Visit: Yes Status: Acute Code(s): F10.10 - ALCOHOL ABUSE, UNCOMPLICATED SNOMED Code(s): 47222437 (2) Pain in left knee Current Visit: Yes Status: Acute Code(s): M25.562 - PAIN IN LEFT KNEE SNOMED Code(s): 49073504 (3) Upper GI bleed Current Visit: Yes Status: Acute Code(s): K92.2 - GASTROINTESTINAL HEMORR YULI, UNSPECIFIED SNOMED Code(s): 16749760 (4) Acute blood loss anemia Current Visit: No Status: Acute Code(s): D62 - ACUTE POSTHEMORRHAGIC ANEMIA SNOMED Code(s): 631670846 (5) Chronic infection of knee Current Visit: No Status: Acute Code(s): M00.9 - PYOGENIC ARTHRITIS, UNSPECIFIED SNOMED Code(s): 642978275 (6) High risk for readmission Current Visit: No Status: Acute Code(s): Z91.89 - OTH PERSONAL RISK FACTORS, NOT ELSEWHERE CLASSIFIED SNOMED Code(s): 293583610 (7) History of MRSA infection Current Visit: No Status: Acute Code(s): Z86.14 - PERSONAL HISTORY OF METHICILLIN RESIS STAPH INFECTION SNOMED Code(s): 429973616 (8) History of pulmonary embolism Current Visit: No Status: Acute Code(s): Z86.711 - PERSONAL HISTORY OF PULMONARY EMBOLISM SNOMED Code(s): 933972622 (9) 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 Current Visit: No Status: Acute Code(s): Z86.19 - PERSONAL HISTORY OF OTHER INFECTIOUS AND PARASITIC DISEASES; Z98.890 - OTHER SPECIFIED POSTPROCEDURAL STATES SNOMED Code(s): 349619185 (10) Noncompliance with medication regimen Current Visit: No Status: Acute Code(s): Z91.14 - PATIENT'S OTHER NONCOMPLIANCE WITH MEDICATION REGIMEN SNOMED Code(s): 134389627 Plan: 1. Upper GI bleed. Admit to ICU, GI consult. Nothing by mouth. Hold anticoagulation. IV Protonix twice a day 2. Acute blood loss anemia. Secondary to above. Transfused 1 unit, continue to monitor hemoglobin 3. Chronic septic arthritis of left knee. Leukocytosis. He has been off of antibiotics for approximately 3 weeks and is awaiting drainage and culture of the knee next week. Leukocytosis possibly reactive versus septic. ID consult 4. Alcohol abuse. CIWA protocol 5. COPD
--- NOTE | 2019-10-12 11:04 | P.PN ---
Subjective Progress Note Date: 10/12/19 Principal diagnosis: Acute upper GI bleeding This is a 59-year-old white male with history of alcoholism, deep vein thrombosis, maintained on Xarelto, degenerative joint disease, previous history of osteomyelitis involving left knee arthroplasty, GERD, pulmonary embolism, seizure disorder, chronic obstructive pulmonary disease, FEV1 is in the range of 51%, chronic hypoxic respiratory failure, history of incarcerated right inguinal hernia. Patient presented to the ER last night with 24-hour history of coffee- ground emesis. Patient was brought in by EMS, and he was noted to have a low hemoglobin, of 7.3. Patient was also noted to have positive gastric occult blood, his alcohol level was 47 on presentation, and his riley virus PCR was negative. Considering his active upper GI bleeding and low hemoglobin, patient was admitted to the intensive care unit, and I was asked to see him on consultation. In the meantime his anticoagulation treatment is on hold, patient is yet to be seen by gastroenterology on consultation for possible EGD. Patient was placed on Protonix, and he was given 1 unit of packed RBCs so far. Hemoglobin is 8.3 today. Patient is feeling better, and no further episodes of emesis or coffee-ground emesis since early this morning. Patient drinks on the average of 3-5 beers per day, he has been treated recently for osteomyelitis involving the left knee, multiple surgeries and multiple arthrocentesis procedures done in the past. Normally follows up with Dr. Hill for his left knee osteomyelitis. Patient cannot have any weightbearing on his left lower extremity because of his left knee. Patient was reevaluated today on 10/12/19, patient remains in the intensive care unit. Patient is not experiencing any active bleeding at this point, feels better, hemoglobin today is 8.3. Received since admission 1 unit of packed RBCs. Patient is scheduled to have EGD today. He was seen by infectious disease on consultation, and did not feel that the patient had active infection of the left knee joint. However considering his leukocytosis, he recommended starting the patient on Zosyn. Patient is feeling better, continues to have some difficulty swallowing, and hopefully that will be assessed by GI today while the patient is having EGD. His WBC count is 21 hemoglobin is 8.3 electrolytes are normal renal profile is normal. PCR for covid 19 is negative. Objective - Vital Signs Vital signs: Vital Signs Temp 97.6 F 05/21/20 08:00 Pulse 117 H 10/12/19 10:00 Resp 18 10/12/19 10:00 BP 117/75 10/12/19 10:00 Pulse Ox 99 10/12/19 10:00 Intake & Output 10/11/19 10/12/19 10/12/19 18:59 06:59 18:59 Intake Total 1100 1350 400 Output Total 650 375 200 Balance 450 975 200 Weight 71.2 kg Intake: IV 1100 1100 300 Sodium Chloride 0.9% 1, 1100 1100 300 000 ml @ 100 mls/hr IV . Q10H [facility] Rx#:[id number] Intake, IV Titration 250 100 Amount Piperacillin-Tazobactam 3 250 100 .375 gm In Sodium Chloride 0.9% 100 ml @ 25 mls/hr IVPB Q8H [facility] Rx#: [id number] Output: Urine 650 375 200 Other: Voiding Method Urinal Urinal Urinal # Bowel Movements 1 1 - Exam GENERAL EXAM: Alert, thin-looking 59-year-old white male, in no distress. HEAD: Normocephalic/atraumatic. EYES: Normal reaction of pupils, equal size. Conjunctiva pink, sclera white. NOSE: Clear with pink turbinates. THROAT: No erythema or exudates. NECK: No masses, no JVD, no thyroid enlargement, no adenopathy. CHEST: No chest wall deformity. Symmetrical expansion. LUNGS: Diminished breath sounds bilaterally, no rhonchi no wheezes.. CVS: Regular rate and rhythm, normal S1 and S2, no gallops, no murmurs, no rubs ABDOMEN: Soft, nontender. No hepatosplenomegaly, normal bowel sounds, no guarding or rigidity. EXTREMITIES: No clubbing, surgical scars and surgical changes noted on the left knee MUSCULOSKELETAL: Muscle strength and tone normal. SPINE: No scoliosis or deformity SKIN: Surgical changes/left knee otherwise unremarkable. CENTRAL NERVOUS SYSTEM: Alert and oriented -2. No focal deficits, tone is normal in all 4 extremities. PSYCHIATRIC: normal mental status examination. Normal mood and affect. - Labs CBC & Chem 7: 10/11/19 04:53 10/11/19 04:53 Labs: Microbiology - Last 24 Hours (Table) 10/10/19 15:00 Blood Culture - Preliminary Blood No Growth after 24 hours Assessment and Plan Assessment: Impression: Acute upper GI bleeding, differential diagnoses includes erosive gastritis, peptic ulcer disease, and esophageal varices. Patient is scheduled to undergo EGD today. Dysphagia, that is to be addressed by gastroenterology, otherwise we'll consider further workup for his dysphagia. 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 History of alcohol abuse Gait dysfunction secondary to left knee osteoarthritis and osteomyelitis Chronic smoker History of seizure disorder History of previous GI bleeding and EGD back in February of 2018 showed linear erosions and ulceration in the mid and distal esophagus. There was also evidence of esophagitis and moderate sized hiatal hernia. Generalized anxiety disorder. Recommendation: Keep patient nothing by mouth for now. Continue to monitor hemoglobin. EGD today. Protonix 40 mg IV push twice a day CIWA protocol for alcohol withdrawal Continue Zosyn empirically as per infectious disease. Continue Bronchodilators for underlying COPD Continue to hold Xarelto for now. Transfer patient out of the ICU to a regular medical floor today. We'll continue to follow. Time with Patient: Less than 30
[2019-10-12] MEDS ORDERED: LIDOCAINE 1% INJ 10MG/ML (20 ML MDV) ONE (12:09)
[2019-10-12] MEDS ORDERED: PROPOFOL 10 MG/ML 20 ML VIAL IV ONE (12:09)
[2019-10-12] MEDS ORDERED: IV FLUID CONTINUATION 1,000 ML IV ONE ×2 (12:15)
--- NOTE | 2019-10-12 12:25 | P.PCN ---
Date of Procedure: 10/12/19 Procedure(s) Performed: BRIEF HISTORY: Patient is a 59-year-old, pleasant, white male admitted to the hospital with acute upper GI bleed. Had multiple episodes of coffee-ground emesis. He was on Xarelto which has been on hold. Received 1 unit of blood transfusion. He scheduled for an upper endoscopy to evaluate further.. PROCEDURE PERFORMED: Esophagogastroduodenoscopy with biopsy. PREOPERATIVE DIAGNOSIS: Acute upper GI bleed. IV sedation per anesthesia. PROCEDURE: After informed consent was obtained, the patient was brought into the endoscopy unit. IV sedation was administered by Anesthesia under continuous monitoring. Initially the Olympus GIF-140 video endoscope was inserted into the mouth. Esophagus intubated without any difficulty. It was gradually advanced into the stomach and duodenum and carefully examined. The bulb and the second part of the duodenum appeared normal. The scope at this time was withdrawn to the stomach, adequately insufflated with air, and upon careful examination, mucosa of the antrum had gastritis. There were thickened folds noted in the body the stomach and biopsies were done from this area. The rest of the cardia and the fundus appeared normal. The scope was then withdrawn into the esophagus. The GE junction was located at 40 cm from the incisors. there was severe ulcerative esophagitis noted involving the distal esophagus extending from 30-40 cm from the incisors with one ulcer that was very deep at the GE junction but no active bleeding. Also there was evidence of Borges's esophagus extending from 35-40 cm from the incisors which was biopsied. The rest of the esophagus appeared normal and the patient tolerated the procedure well. IMPRESSION: 1. Severe ulcerative esophagitis extending from 30-40 cm from the incisors consistent with LA grade B reflux esophagitis. 2. Borges's esophagus 3. Thickened folds in the gastric body the stomach status post biopsy. RECOMMENDATIONS: The findings of this examination were discussed with the patient. He will be continued with Protonix 40 mg twice daily. Start him on a clear liquid diet and advance as tolerated. Anticoagulation can be resumed in 2 days
--- NOTE | 2019-10-12 13:18 | P.PN ---
Subjective Progress Note Date: 10/12/19 Patient is a 59-year-old male with past medical history significant for left knee infection with MRSA for which the patient did have multiple surgeries done lately the patient has been followed by Dr. Lo at [facility] patient mention he has been off antibiotics for the last few weeks as his orthopedics is planning on aspiration of his knee to make sure that infection is gone patient has been brought to the ER yesterday for evaluation of nausea and vomiting for 24 hours in this patient who did have history of alcohol abuse and has been complaining of multiple bouts of withdrawal coffee-ground emesis patient has been complaining of pain in the epigastric area for a few sharp and burning intensity of the 7 out of 10 with no radiation and associated nausea vomiting denies any diarrhea no chest pain or shortness of the cough patient denies any worsening pain to her left knee with incision is currently healed and there is no drainage patient was noticed to have a white count of 19,000 subsequently white was up to 21,000 that prompted this infectious disease consultation we did have blood cultures are currently pending chest x-ray was negative for acute pulmonary process. 10/12/2019 continues on gentle IV fluid hydration. NPO,EGD pending. Hemoglobin 8.3. No further nausea or vomiting. Spitting up whitish phlegm, nonbloody. No further bleeding reported. Complains of sore throat, denies cough. Maintained on Zosyn as per ID. Afebrile, WBC 21, preliminary blood cultures reporting no growth. Renal function normal .Telemetry sinus tachycardia Objective - Vital Signs Vital signs: Vital Signs Temp 98.7 F 10/12/19 00:00 Pulse 130 H 10/12/19 08:10 Resp 22 10/12/19 05:04 BP 119/73 10/12/19 07:00 Pulse Ox 95 10/12/19 07:00 Intake & Output 10/11/19 10/12/19 10/12/19 18:59 06:59 18:59 Intake Total 1100 1350 100 Output Total 650 375 0 Balance 450 975 100 Weight 71.2 kg Intake: IV 1100 1100 100 Sodium Chloride 0.9% 1, 1100 1100 100 000 ml @ 100 mls/hr IV . Q10H [facility] Rx#:[id number] Intake, IV Titration 250 Amount Piperacillin-Tazobactam 3 250 .375 gm In Sodium Chloride 0.9% 100 ml @ 25 mls/hr IVPB Q8H [facility] Rx#: [id number] Output: Urine 650 375 0 Other: Voiding Method Urinal Urinal # Bowel Movements 1 - Exam GENERAL DESCRIPTION: Sitting up in bed, alert and oriented 3, no acute distress no distress. HEENT: Normocephalic, atraumatic, oral mucosa dry NECK: Supple, no JVD ,Trachea central, no thyromegaly. No cervical or axillary lymphadenopathy LUNGS: Unlabored breathing. Clear to auscultation anteriorly. No wheezing, no crackles HEART: S1, S2, mild tachycardia, regular rhyth. No murmur. ABDOMEN: Soft, soft diffuse tenderness , guarding or rigidity. Positive bowel sounds EXTREMITIES: Left knee with generalized tenderness, incision healed,no edema ,no warmth, no drainage sKIN: No rash, no masses palpable. NEUROLOGICAL: The patient is awake, alert, oriented x3, mood and affect normal. - Labs CBC & Chem 7: 10/11/19 04:53 10/11/19 04:53 Labs: Microbiology - Last 24 Hours (Table) 10/10/19 15:00 Blood Culture - Preliminary Blood No Growth after 24 hours Assessment and Plan Assessment: (1) ETOH abuse Current Visit: Yes Status: Acute Code(s): F10.10 - ALCOHOL ABUSE, UNCOMPLICATED SNOMED Code(s): 95269489 (2) Pain in left knee Current Visit: Yes Status: Acute Code(s): M25.562 - PAIN IN LEFT KNEE SNOMED Code(s): 65087006 (3) Upper GI bleed Current Visit: Yes Status: Acute Code(s): K92.2 - GASTROINTESTINAL HEMORRHAGE, UNSPECIFIED SNOMED Code(s): 72260076 (4) Acute blood loss anemia, secondary to the above ,status post transfusion of packed RBCs Current Visit: No Status: Acute Code(s): D62 - ACUTE POSTHEMORRHAGIC ANEMIA SNOMED Code(s): 632635734 (5) Chronic infection of knee. Chronic septic left knee arthritis. Current Visit: No Status: Acute Code(s): M00.9 - PYOGENIC ARTHRITIS, UNSPECIFIED SNOMED Code(s): 277959316 (6) High risk for readmission Current Visit: No Status: Acute Code(s): Z91.89 - OTH PERSONAL RISK FACTORS, NOT ELSEWHERE CLASSIFIED SNOMED Code(s): 555528673 (7) History of MRSA infection Current Visit: No Status: Acute Code(s): Z86.14 - PERSONAL HISTORY OF METHICILLIN RESIS STAPH INFECTION SNOMED Code(s): 216149362 (8) History of pulmonary embolism Current Visit: No Status: Acute Code(s): Z86.711 - PERSONAL HISTORY OF PULMONARY EMBOLISM SNOMED Code(s): 929982247 (9) 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 Current Visit: No Status: Acute Code(s): Z86.19 - PERSONAL HISTORY OF OTHER INFECTIOUS AND PARASITIC DISEASES; Z98.890 - OTHER SPECIFIED POSTPROCEDURAL STATES SNOMED Code(s): 664757853 (10) Noncompliance with medication regimen Current Visit: No Status: Acute Code(s): Z91.14 - PATIENT'S OTHER NONCOMPLIANCE WITH MEDICATION REGIMEN SNOMED Code(s): 118183046 (11) leukocytosis possibly reactive, possibly septic (12) COPD Plan: Continue on current medication regime ,monitoring and symptomatic treatment. Anticoagulation remains on hold.NPO, EGD pending. Maintain on PPI. Maintain CIWA protocol. IV antibiotics as per infectious disease. Nebulized bronchodilators. Cleared for transfer out of ICU as per data deliverables manager. The impression and plan of care has been dictated as directed. : I performed a history and examination of this patient, discussed the same with the dictator. I agree with the dictator's note ,documented as a scribe. Any additional findings or plans will be noted.
--- NOTE | 2019-10-12 20:27 | PN ---
PROGRESS NOTE DATE OF SERVICE: 10/12/2019 REASON FOR FOLLOWUP: 1. Leukocytosis. 2. Chronic infection of the left knee area. INTERVAL HISTORY: The patient is currently afebrile. Patient is breathing comfortably. Denies having any chest pain or shortness of breath or cough. Abdominal discomfort has improved. No further vomiting or nausea or any worsening pain to the left knee area. PHYSICAL EXAMINATION: Blood pressure 119/72 with a pulse of 124, temperature 98.7. He is 99% on 4 L nasal cannula. General description is a middle-aged male up in the bed in no distress. Respiratory system: Unlabored breathing. Clear to auscultation anteriorly. Heart S1, S2. Regular rate and rhythm. ABDOMEN: Soft, no tenderness. Left knee currently with no swelling, redness or any drainage. LABS: No new labs been obtained today. Blood culture has been negative. DIAGNOSTIC IMPRESSION AND PLAN: Patient with leukocytosis possible reactive in this patient admitted to the hospital with gastrointestinal bleed status post EGD. The patient is covered with Zosyn and repeat CBC inflammatory markers tomorrow for need for any further workup. Continue supportive care. MMODL / IJN: [id number] /
[2019-10-13] MEDS: PIPERACILLIN-TAZOBACTAM 3.375 GM in SODIUM CHLORIDE 0.9% 100 ML IVPB SCH ×3 (00:37→17:24)
[2019-10-13] MEDS: HYDROmorphone 0.5 MG/0.5 ML SYRINGE IVP PRN ×3 (01:07→07:24)
[2019-10-13] MEDS: LORazepam 2 MG/ML INJ IV PRN ×4 (02:40→20:23)
[2019-10-13] MEDS: SODIUM CHLORIDE 0.9% 1,000 ML IV SCH ×2 (07:29→13:21)
[2019-10-13] MEDS: THIAMINE 100 MG TAB PO SCH ×2 (07:33→17:22)
[2019-10-13] MEDS: PANTOPRAZOLE 40 MG/10 ML VIAL IV SCH ×2 (07:36→20:24)
[2019-10-13] MEDS: NICOTINE 21MG/24HR PATCH TRANSDERM SCH (07:40)
[2019-10-13] MEDS: IPRATROPIUM-ALBUTEROL 3 ML NEB INHALATION SCH ×3 (09:13→19:57)
[2019-10-13] MEDS: SYMBICORT 160-4.5 MCG INHALER INHALATION SCH ×2 (09:13→19:58)
--- NOTE | 2019-10-13 10:51 | P.PN ---
Subjective Progress Note Date: 10/13/19 Patient is a 59-year-old male with past medical history significant for left knee infection with MRSA for which the patient did have multiple surgeries done lately the patient has been followed by Dr. Lo at [facility] patient mention he has been off antibiotics for the last few weeks as his orthopedics is planning on aspiration of his knee to make sure that infection is gone patient has been brought to the ER yesterday for evaluation of nausea and vomiting for 24 hours in this patient who did have history of alcohol abuse and has been complaining of multiple bouts of withdrawal coffee-ground emesis patient has been complaining of pain in the epigastric area for a few sharp and burning intensity of the 7 out of 10 with no radiation and associated nausea vomiting denies any diarrhea no chest pain or shortness of the cough patient denies any worsening pain to her left knee with incision is currently healed and there is no drainage patient was noticed to have a white count of 19,000 subsequently white was up to 21,000 that prompted this infectious disease consultation we did have blood cultures are currently pending chest x-ray was negative for acute pulmonary process. 10/12/2019 continues on gentle IV fluid hydration. NPO,EGD pending. Hemoglobin 8.3. No further nausea or vomiting. Spitting up whitish phlegm, nonbloody. No further bleeding reported. Complains of sore throat, denies cough. Maintained on Zosyn as per ID. Afebrile, WBC 21, preliminary blood cultures reporting no growth. Renal function normal .Telemetry sinus tachycardia 10/13/2019 completed EGD yesterday with biopsy reporting severe ulcerative esophagitis, LA grade B reflux esophagitis, Borges's esophagus, thickened folds in the gastric body, the stomach. Maintained on PPI. Tolerating clear liquid diet. Anticoagulation remains on hold with clearance to resume in 2 days as per GI. Hemoglobin pending with no signs/symptoms of further bleeding. Afebrile, tachycardic, currently in the low 100s, WBC up to 21. Objective - Vital Signs Vital signs: Vital Signs Temp 98.0 F 10/13/19 04:16 Pulse 109 H 10/13/19 04:16 Resp 18 10/13/19 04:16 BP 118/74 10/13/19 04:16 Pulse Ox 92 L 10/13/19 04:16 Intake & Output 10/12/19 10/13/19 10/13/19 18:59 06:59 18:59 Intake Total 1400 1120 Output Total 500 Balance 900 1120 Intake: IV 900 Sodium Chloride 0.9% 1, 700 000 ml @ 100 mls/hr IV . Q10H [facility] Rx#:[id number] Intake, IV Titration 100 Amount Piperacillin-Tazobactam 3 100 .375 gm In Sodium Chloride 0.9% 100 ml @ 25 mls/hr IVPB Q8H [facility] Rx#: [id number] Oral 400 1120 Output: Urine 500 Other: Voiding Method Urinal Toilet Urinal # Voids 1 # Bowel Movements 1 1 - Exam GENERAL DESCRIPTION: Sitting up in chair, no acute distress, mild anxiety HEENT: Normocephalic, atraumatic, oral mucosa moist NECK: Supple, no JVD ,Trachea central, no thyromegaly. LUNGS: Unlabored breathing. Clear to auscultation anteriorly. HEART: S1, S2, mild tachycardia, regular rhyth. No murmur. ABDOMEN: Soft, nontender, no guarding or rigidity. Positive bowel sounds EXTREMITIES: Left leg brace present sKIN: No rash, skin warm and dry NEUROLOGICAL: The patient is awake, alert, oriented x3, mood and affect normal. - Labs CBC & Chem 7: 10/11/19 04:53 10/11/19 04:53 Labs: Microbiology - Last 24 Hours (Table) 10/10/19 15:00 Blood Culture - Preliminary Blood No Growth after 48 hours Assessment and Plan Assessment: (1) ETOH abuse Current Visit: Yes Status: Acute Code(s): F10.10 - ALCOHOL ABUSE, UNCOMPLICATED SNOMED Code(s): 67785483 (2) Pain in left knee Current Visit: Yes Status: Acute Code(s): M25.562 - PAIN IN LEFT KNEE SNOMED Code(s): 58828767 (3) Upper GI bleed status post EGD reporting severe ulcerative esophagitis, LA grade B reflux esophagitis, Borges's esophagus, thickened folds in the gastric body of stomach. Biopsies pending. Current Visit: Yes Status: Acute Code(s): K92.2 - GASTROINTESTINAL HEMORRHAGE, UNSPECIFIED SNOMED Code(s): 91461382 (4) Acute blood loss anemia, secondary to the above ,status post transfusion of packed RBCs Current Visit: No Status: Acute Code(s): D62 - ACUTE POSTHEMORRHAGIC ANEMIA SNOMED Code(s): 277894737 (5) Chronic infection of knee. Chronic septic left knee arthritis. Current Visit: No Status: Acute Code(s): M00.9 - PYOGENIC ARTHRITIS, UNSPECIFIED SNOMED Code(s): 589479130 (6) High risk for readmission Current Visit: No Status: Acute Code(s): Z91.89 - OTH PERSONAL RISK FACTORS, NOT ELSEWHERE CLASSIFIED SNOMED Code(s): 549434814 (7) History of MRSA infection Current Visit: No Status: Acute Code(s): Z86.14 - PERSONAL HISTORY OF METHICILLIN RESIS STAPH INFECTION SNOMED Code(s): 362254289 (8) History of pulmonary embolism Current Visit: No Status: Acute Code(s): Z86.711 - PERSONAL HISTORY OF PULMONARY EMBOLISM SNOMED Code(s): 003978020 (9) 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 Current Visit: No Status: Acute Code(s): Z86.19 - PERSONAL HISTORY OF OTHER INFECTIOUS AND PARASITIC DISEASES; Z98.890 - OTHER SPECIFIED POSTPROCEDURAL STATES SNOMED Code(s): 388581892 (10) Noncompliance with medication regimen Current Visit: No Status: Acute Code(s): Z91.14 - PATIENT'S OTHER NONCOMPLIANCE WITH MEDICATION REGIMEN SNOMED Code(s): 130582750 (11) leukocytosis possibly reactive, possibly septic (12) COPD Plan: Continue on current medication regime ,monitoring and symptomatic treatment. Anticoagulation remains on hold.advance diet as per GI. Carafate added to med regime.continue on PPI. Maintain CIWA protocol. Close monitoring of CBC with repeat labs ordered for a.m. Discharge planning in progress for tomorrow. The impression and plan of care has been dictated as directed. : I performed a history and examination of this patient, discussed the same with the dictator. I agree with the dictator's note ,documented as a scribe. Any additional findings or plans will be noted.
--- NOTE | 2019-10-13 12:04 | P.PN ---
Subjective Progress Note Date: 10/13/19 Principal diagnosis: Acute GI bleed This is a 59-year-old white male with history of alcoholism, deep vein thrombosis, maintained on Xarelto, degenerative joint disease, previous history of osteomyelitis involving left knee arthroplasty, GERD, pulmonary embolism, seizure disorder, chronic obstructive pulmonary disease, FEV1 is in the range of 51%, chronic hypoxic respiratory failure, history of incarcerated right inguinal hernia. Patient presented to the ER last night with 24-hour history of coffee- ground emesis. Patient was brought in by EMS, and he was noted to have a low hemoglobin, of 7.3. Patient was also noted to have positive gastric occult blood, his alcohol level was 47 on presentation, and his riley virus PCR was negative. Considering his active upper GI bleeding and low hemoglobin, patient was admitted to the intensive care unit, and I was asked to see him on consultation. In the meantime his anticoagulation treatment is on hold, patient is yet to be seen by gastroenterology on consultation for possible EGD. Patient was placed on Protonix, and he was given 1 unit of packed RBCs so far. Hemoglobin is 8.3 today. Patient is feeling better, and no further episodes of emesis or coffee-ground emesis since early this morning. Patient drinks on the average of 3-5 beers per day, he has been treated recently for osteomyelitis involving the left knee, multiple surgeries and multiple arthrocentesis procedures done in the past. Normally follows up with Dr. Hill for his left knee osteomyelitis. Patient cannot have any weightbearing on his left lower extremity because of his left knee. Patient was reevaluated today on 10/12/19, patient remains in the intensive care unit. Patient is not experiencing any active bleeding at this point, feels better, hemoglobin today is 8.3. Received since admission 1 unit of packed RBCs. Patient is scheduled to have EGD today. He was seen by infectious disease on consultation, and did not feel that the patient had active infection of the left knee joint. However considering his leukocytosis, he recommended starting the patient on Zosyn. Patient is feeling better, continues to have some difficulty swallowing, and hopefully that will be assessed by GI today while the patient is having EGD. His WBC count is 21 hemoglobin is 8.3 electrolytes are normal renal profile is normal. PCR for covid 19 is negative. Patient is seen today 10/13/2019 in follow-up on the regular medical floor. He is currently sitting up at the bedside. Awake and alert in no acute distress. He did undergo EGD yesterday and was found to have severe ulcerated esophagitis extending from 30-40 cm from the incisors consistent with LA grade B reflux esophagitis. He also has Borges's is having gas. Thickened folds in the gastric body of the stomach and status post biopsy. Pathology pending. No further bleeding noted. He is status post 1 unit of packed red blood cells this admission. Most recent hemoglobin 8.3. Objective - Vital Signs Vital signs: Vital Signs Temp 98.0 F 10/13/19 04:16 Pulse 109 H 10/13/19 04:16 Resp 18 10/13/19 04:16 BP 118/74 10/13/19 04:16 Pulse Ox 92 L 10/13/19 04:16 Intake & Output 10/12/19 10/13/19 10/13/19 18:59 06:59 18:59 Intake Total 1400 1120 Output Total 500 Balance 900 1120 Intake: IV 900 Sodium Chloride 0.9% 1, 700 000 ml @ 100 mls/hr IV . Q10H [facility] Rx#:[id number] Intake, IV Titration 100 Amount Piperacillin-Tazobactam 3 100 .375 gm In Sodium Chloride 0.9% 100 ml @ 25 mls/hr IVPB Q8H [facility] Rx#: [id number] Oral 400 1120 Output: Urine 500 Other: Voiding Method Urinal Toilet Urinal # Voids 1 # Bowel Movements 1 1 - Exam GENERAL EXAM: Alert, pleasant 59-year-old gentleman, comfortable in no apparent distress. HEAD: Normocephalic. EYES: Normal reaction of pupils, equal size. NOSE: Clear with pink turbinates. THROAT: No erythema or exudates. NECK: No masses, no JVD. CHEST: No chest wall deformity. LUNGS: Equal air entry with no crackles, wheeze, rhonchi or dullness. CVS: S1 and S2 normal with no audible murmur, regular rhythm. ABDOMEN: No hepatosplenomegaly, normal bowel sounds, no guarding or rigidity. SPINE: No scoliosis or deformity SKIN: No rashes CENTRAL NERVOUS SYSTEM: No focal deficits, tone is normal in all 4 extremities. EXTREMITIES: There is no peripheral edema. No clubbing, no cyanosis. Peripheral pulses are intact. - Labs CBC & Chem 7: 10/11/19 04:53 10/11/19 04:53 Labs: Microbiology - Last 24 Hours (Table) 10/10/19 15:00 Blood Culture - Preliminary Blood No Growth after 48 hours Assessment and Plan Assessment: Acute upper GI bleeding, differential diagnoses includes erosive gastritis, peptic ulcer disease, and esophageal varices. EGD from 10/12/2019 revealed severe ulcerative esophagitis extending from 30-40 cm from the incisors consistent with LA grade B reflux esophagitis. Borges's esophagus. Thickened folds in the gastric body of the stomach status post biopsy. Pathology pending. Dysphagia, that is to be addressed by gastroenterology, otherwise we'll consider further workup for his dysphagia. 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 History of alcohol abuse Gait dysfunction secondary to left knee osteoarthritis and osteomyelitis Chronic smoker History of seizure disorder History of previous GI bleeding and EGD back in February of 2018 showed linear erosions and ulceration in the mid and distal esophagus. There was also evidence of esophagitis and moderate sized hiatal hernia. Generalized anxiety disorder Plan The patient was seen and evaluated by Dr. Hermosillo Currently stable from the pulmonary and critical care standpoint Remains on Protonix and Carafate Home once cleared medically We'll see him on as-needed basis I, the cosigning physician, performed a history & physical examination of the patient. Lungs sounds are clear. Maintaining good O2 saturations in the 90s on room air. I discussed the assessment and plan of care with my nurse practitioner, Paz Burgess. I attest to the above note as dictated by her.
[2019-10-13] MEDS: SUCRALFATE 1 GM TAB PO SCH ×3 (13:21→20:24)
--- NOTE | 2019-10-13 15:49 | PN ---
PROGRESS NOTE DATE OF SERVICE: 10/13/2019 Patient is a 59-year-old pleasant white male with history of heavy alcoholism, admitted to the OR with history of DVT and Xarelto, admitted to the hospital with acute upper GI bleed. He underwent an upper endoscopy yesterday that revealed severe LA grade D reflux esophagitis with ulcerations and erosions involving the mid and distal esophagus. He is presently on Protonix 40 mg daily. He received 1 unit of PRBC transfusion and he was transferred from the intensive care unit yesterday. He denies any symptoms. He denies any abdominal pain. He is on a soft diet, tolerating well. Has some dysphagia and odynophagia. PHYSICAL EXAMINATION: Appears comfortable, in no apparent distress. Vital signs are stable, blood pressure 118/74, pulse is 109, temperature is 98. HEENT: Examination unremarkable. Conjunctivae are pink. Sclerae nonicteric. Oral cavity no lesions. NECK: No JVD or lymph node enlargement. CHEST: Clear to auscultation. HEART: Regular rate and rhythm. ABDOMEN: Soft. Bowel sounds are positive. Mild tenderness in the epigastric area. EXTREMITIES: No pedal edema. SKIN: No rashes. NEUROLOGIC: Alert and oriented x3. No focal deficits. LABS: Done today WBC is 21, hemoglobin 8.3, platelets normal. Basic metabolic panel is within normal limits. IMPRESSION: 1. Acute upper gastrointestinal bleed, status post EGD yesterday that revealed severe LA grade D reflux esophagitis with ulcerations in the distal esophagus. Presently on Protonix 40 mg twice daily. No further episodes of nausea, vomiting, or bleeding. 2. Mild dysphagia secondary to severe esophagitis. 3. History of DVT, was on Xarelto which is currently on hold. 4. Chronic obstructive pulmonary disease. RECOMMENDATION: 1. Continue with Protonix 40 mg twice daily. 2. Soft diet. 3. Anti-reflux measures. 4. Abstinence from alcohol. 5. Repeat CBC in the morning. 6. Will follow with you closely. Thank you for this consultation. MMODL / IJN: [id number] /
[2019-10-13] MEDS: HYDROcodone/APAP 10-325MG 1 EACH TAB PO PRN ×2 (17:22→23:06)
--- NOTE | 2019-10-13 17:38 | PN ---
PROGRESS NOTE DATE OF SERVICE: 10/13/2019 REASON FOR FOLLOWUP: 1. Leukocytosis with a question of reactive versus abdominal source. 2. Left knee infection. INTERVAL HISTORY: The patient is currently afebrile. The patient is breathing comfortably. No further vomiting. Abdominal discomfort has improved. No chest pain or shortness of breath or cough. No worsening pain to the left knee area. PHYSICAL EXAMINATION: Blood pressure 118/74 with a pulse of 109, temperature 98. He is 92% on 2 L nasal cannula. General description is a middle-aged male up in the chair in no distress. RESPIRATORY SYSTEM: Unlabored breathing. Clear to auscultation anteriorly. HEART: S1, S2. Regular rate and rhythm. ABDOMEN: Soft. No tenderness. LABS: No new labs have been obtained today. Blood culture has been negative. DIAGNOSTIC IMPRESSION AND PLAN: 1. Patient with leukocytosis which could be reactive in this patient admitted to hospital with acute gastrointestinal bleed, status post esophagogastroduodenoscopy. The patient's culture is so far negative. Will repeat a CBC to make sure white count normalized before adjusting antibiotic further. 2. Patient with a chronic infection to the left knee. However, there is currently no evidence of any cellulitis to the left knee; hence will hold on any Gram-positive coverage at this point. MMODL / IJN: [id number] /
[2019-10-13] MEDS: MORPHINE SULFATE 4 MG/ML SYRINGE IV PRN ×2 (18:02→21:56)
[2019-10-13 20:16] LABS: Anisocytosis Slight; Basophils # (A) 0.1 k/uL (0-0.2); Basophils % (A) 1 %; Eosinophils # (A) 0.3 k/uL (0-0.7); Eosinophils % (A) 3 %; HCT 31.9 % (39.0-53.0); Hypochromasia Marked; Lymphocytes # (A) 1.6 k/uL (1.0-4.8); Lymphocytes % (A) 18 %; MCH 26.6 pg (25.0-35.0); MCHC 28.2 g/dL (31.0-37.0); MCV 94.4 fL (80.0-100.0); Macrocytosis Slight; Mean Platelet Volume 8.4; Monocytes # (A) 0.6 k/uL (0-1.0); Monocytes % (A) 7 %; Neutrophils # (A) 6.2 k/uL (1.3-7.7); Neutrophils % (A) 68 %; Platelet Count 153 k/uL (150-450); Poikilocytosis Moderate; RBC 3.38 m/uL (4.30-5.90); RDW 19.2 % (11.5-15.5); WBC 9.1 k/uL (3.8-10.6)
[2019-10-13 20:28] LABS: ALT 9 U/L (4-49); AST 23 U/L (17-59); African American GFR (CKD) >90 (>60 ml/min/1.73 sqM); Albumin 2.9 g/dL (3.5-5.0); Alkaline Phosphatase 78 U/L (38-126); Anion Gap 10 mmol/L; Blood Urea Nitrogen 4 mg/dL (9-20); Calcium 8.3 mg/dL (8.4-10.2); Carbon Dioxide 21 mmol/L (22-30); Chloride 107 mmol/L (98-107); Glucose 125 mg/dL (74-99); Non-African American GFR(CKD) >90 (>60 ml/min/1.73 sqM); Potassium 3.1 mmol/L (3.5-5.1); Sodium 138 mmol/L (137-145); Total Bilirubin 0.9 mg/dL (0.2-1.3); Total Protein 5.8 g/dL (6.3-8.2)
[2019-10-13] MEDS ORDERED: POTASSIUM CHLORIDE ER 20 MEQ TAB.ER PO STA (22:55)
[2019-10-13] MEDS ORDERED: Potassium Replacement Protocol 1 EACH MISC MISCELLANE PRN (22:55)
[2019-10-14] MEDS: PIPERACILLIN-TAZOBACTAM 3.375 GM in SODIUM CHLORIDE 0.9% 100 ML IVPB SCH ×2 (01:14→08:44)
[2019-10-14] MEDS: SODIUM CHLORIDE 0.9% 1,000 ML IV SCH ×2 (01:16→09:30)
[2019-10-14] MEDS: MORPHINE SULFATE 4 MG/ML SYRINGE IV PRN ×2 (02:37→06:35)
[2019-10-14] MEDS: LORazepam 2 MG/ML INJ IV PRN (03:56)
[2019-10-14] MEDS: HYDROcodone/APAP 10-325MG 1 EACH TAB PO PRN (04:54)
[2019-10-14 07:30] LABS: African American GFR (CKD) >90 (>60 ml/min/1.73 sqM); Anion Gap 8 mmol/L; Blood Urea Nitrogen 4 mg/dL (9-20); C Reactive Protein 51.7 mg/L (<10.0); Calcium 7.8 mg/dL (8.4-10.2); Carbon Dioxide 19 mmol/L (22-30); Chloride 108 mmol/L (98-107); Glucose 97 mg/dL (74-99); Non-African American GFR(CKD) >90 (>60 ml/min/1.73 sqM); Potassium 4.7 mmol/L (3.5-5.1); Sodium 135 mmol/L (137-145)
[2019-10-14] MEDS: IPRATROPIUM-ALBUTEROL 3 ML NEB INHALATION SCH (07:59)
[2019-10-14] MEDS: SYMBICORT 160-4.5 MCG INHALER INHALATION SCH (07:59)
[2019-10-14 08:44] LABS: Anisocytosis Moderate; HCT 33.4 % (39.0-53.0); HGB 9.7 gm/dL (13.0-17.5); Hypochromasia Marked; MCH 26.3 pg (25.0-35.0); MCHC 29.2 g/dL (31.0-37.0); MCV 90.2 fL (80.0-100.0); Mean Platelet Volume 9.4; Platelet Count 145 k/uL (150-450); Poikilocytosis Moderate; RDW 20.1 % (11.5-15.5); WBC 8.4 k/uL (3.8-10.6)
[2019-10-14] MEDS: THIAMINE 100 MG TAB PO SCH (08:45)
[2019-10-14] MEDS: NICOTINE 21MG/24HR PATCH TRANSDERM SCH (08:45)
[2019-10-14] MEDS: SUCRALFATE 1 GM TAB PO SCH (08:45)
[2019-10-14] MEDS: PANTOPRAZOLE 40 MG/10 ML VIAL IV SCH (08:45)
[2019-10-14 08:48] LABS: Eosinophils # (M) 0.25 k/uL (0-0.7); Monocytes # (M) 0.84 k/uL (0-1.0); Neutrophils % (M) 56 %; Nucleated Red Blood Cells 0 /100 WBC (0-0); Total Cells Counted 100
[2019-10-14 12:15] VITALS: BP 123/85; PULSE 107; RESP 19; TEMP 98.4
--- NOTE | 2019-10-14 13:07 | PN ---
PROGRESS NOTE DATE OF SERVICE: 10/14/2019 The patient is a 59-year-old white male admitted to hospital with acute upper GI bleed. He had an upper endoscopy done 2 days ago that showed severe reflux esophagitis with ulcerations in the distal esophagus. On Protonix 40 mg twice daily as well as Carafate. He is doing much better. Eating well. Abdominal pain has resolved. No further episodes of bleeding. PHYSICAL EXAMINATION: Appears comfortable in no apparent distress. VITAL SIGNS: Stable. Blood pressure 117/80, pulse rate 99, temperature 98. HEENT examination unremarkable. Conjunctivae pink. Sclerae anicteric. Oral cavity no lesions. NECK: No JVD or lymph node enlargement. CHEST: Clear to auscultation. HEART: Regular rate and rhythm. ABDOMEN: Soft. Bowel sounds are positive. No organomegaly. EXTREMITIES: No pedal edema. SKIN no rashes. NEURO he is alert and oriented x3. No focal deficits. LABS: From today WBC 8.4, hemoglobin 9.7, and platelets 145. IMPRESSION: 1. Upper gastrointestinal bleed, status post EGD three days ago that showed severe reflux esophagitis with multiple ulcerations in the distal esophagus. On Protonix 40 mg twice daily, doing better. 2. History of heavy alcohol abuse. 3. History of anxiety and depression. RECOMMENDATIONS: 1. Continue with Protonix and Carafate. 2. Advance diet as tolerated. 3. Abstinence from alcohol. 4. We will follow him closely. Thank you for this consultation. MMODL / IJN: [id number] /
--- NOTE | 2019-10-15 00:10 | DS ---
DISCHARGE SUMMARY DATE OF SERVICE: 10/14/2019 FINAL DIAGNOSES: 1. Acute upper gastrointestinal bleeding, status post EGD showing severe ulcerative esophagitis grade B. 2. History of ETOH. 3. Left knee pain. 4. Acute blood loss anemia secondary from upper gastrointestinal bleed. 5. History of deep vein thrombosis. 6. History of gastroesophageal reflux disease. 7. History of degenerative joint disease. 8. History of pulmonary embolism. 9. History of seizure disorder. 10.History of EtOH. 11.History of bilateral pulmonary embolism. 12.History of chronic hypoxic respiratory failure. 13.History of delirium tremens. 14.History of recurrent falls. 15.History of diverticulosis. 16.History of degenerative joint disease. 17.History of anxiety, depression. 18.FULL CODE. DISCHARGE DISPOSITION: The patient will be discharged in stable condition with guarded prognosis. Total time taken 35 minutes. HISTORY OF PRESENT ILLNESS: This 59-year-old gentleman with a past medical history of multiple medical problems followed by Dr. Reggie Edward in the outpatient setting was admitted with history of upper gastrointestinal bleed. The patient also had acute blood loss. The patient monitored closely and the patient was given 1 unit transfusion. Hemoglobin stabilized at 9.7. Patient is extremely keen on going home at this time. EGD showed findings as above and the anticoagulants to be started in the outpatient setting as soon as the bleeding stabilizes otherwise currently. Other biopsies are pending at this time. Also recommend close followup with Infectious Disease and as well as multiple consults on the case as well. Dr. Gale saw the patient during the hospitalization. Please refer to the multiple progress notes and consultation notes for further information. Once again, the patient is stable currently, but the patient is extremely keen on going home and the patient discharged in stable condition. Guarded prognosis. On exam, vitals are stable. Abdomen soft. CARDIOVASCULAR SYSTEM: No focal deficits. Hemoglobin 9.7. DISCHARGE INSTRUCTIONS/MEDICATION: 1. Diet is cardiac diet. 2. Activity limited until followup. 3. Follow up with Dr. Edward in 2-3 days. 4. CBC and continued followup. 5. Addressing the anticoagulation. DISCHARGE MEDICATIONS: 1. BuSpar 10 mg p.o. b.i.d. 2. Chantix as before. 3. Albuterol q.4 hours. 4. Folic acid 1 mg daily. 5. Imodium 2 mg q.6h p.r.n. magnesium oxide 400 mg q.h.s. multivitamins 1. 6. [place] 10 mg q.4 p.r.n. 7. Trazodone 50 mg q.h.s. 8. Vistaril 25 mg p.o. b.i.d. 9. Augmentin 875 mg p.o. b.i.d. for 3 days. 10.Carafate 1 g a.c. and q.h.s. 11.Protonix 40 mg p.o. b.i.d. 12.Thiamine 100 mg daily. 13.Xarelto 20 mg p.o. daily to be restarted in few days once the patient is stabilized in the outpatient setting and monitor hemoglobin closely subsequently. 14.Follow up with Dr. Edward and as well. 15.Follow up with Gastroenterology as advised. Once again, the patient being discharged in stable condition. Guarded prognosis. MMODL / IJN: [id number] /
== END 2019-10-14 12:18 | disposition home health service (06) | DRG 381 ==
LOC: EC 13:32 → 2SICU 15:46 → 5NMEDONC 10-12 15:42
PROVIDERS: ADMIT Family Medicine; ATTEND Family Medicine
PROC: 0DB58ZX Excision of Esophagus, Via Natural or Artificial Opening Endoscopic, Diagnostic (ICD-10-PCS; principal; 2019-10-12 13:00)
PROC: 30233N1 Transfusion of Nonautologous Red Blood Cells into Peripheral Vein, Percutaneous Approach (ICD-10-PCS; principal; 2019-10-12 13:00)
PROC: 0DB78ZX Excision of Stomach, Pylorus, Via Natural or Artificial Opening Endoscopic, Diagnostic (ICD-10-PCS; principal; 2019-10-12 13:00)
DX: K22.11 Ulcer of esophagus with bleeding (principal); D62 Acute posthemorrhagic anemia; M86.9 Osteomyelitis, unspecified; J96.11 Chronic respiratory failure with hypoxia; M86.662 Other chronic osteomyelitis, left tibia and fibula; K21.9 Gastro-esophageal reflux disease without esophagitis; K29.51 Unspecified chronic gastritis with bleeding; M19.90 Unspecified osteoarthritis, unspecified site; K44.9 Diaphragmatic hernia without obstruction or gangrene; F41.1 Generalized anxiety disorder; F32.9 Major depressive disorder, single episode, unspecified; F17.200 Nicotine dependence, unspecified, uncomplicated; G40.909 Epilepsy, unspecified, not intractable, without status epilepticus; J44.9 Chronic obstructive pulmonary disease, unspecified; K21.0 Gastro-esophageal reflux disease with esophagitis; F10.10 Alcohol abuse, uncomplicated; M17.12 Unilateral primary osteoarthritis, left knee; Z11.59 Encounter for screening for other viral diseases; Z96.653 Presence of artificial knee joint, bilateral; Z79.01 Long term (current) use of anticoagulants; Z79.899 Other long term (current) drug therapy; Z79.890 Hormone replacement therapy; Z88.8 Allergy status to other drugs, medicaments and biological substances; Z82.49 Family history of ischemic heart disease and other diseases of the circulatory system; Z86.718 Personal history of other venous thrombosis and embolism; Z86.711 Personal history of pulmonary embolism; Z87.19 Personal history of other diseases of the digestive system; Z91.14 Patient's other noncompliance with medication regimen; Z86.14 Personal history of Methicillin resistant Staphylococcus aureus infection; Z80.3 Family history of malignant neoplasm of breast; Z98.890 Other specified postprocedural states; Z91.81 History of falling; Z86.19 Personal history of other infectious and parasitic diseases
CPT/HCPCS: 36410; 36415; 43239; 71045; 76937; 80048; 80053; 80320; 82150; 82271; 83605; 83690; 83735; 84484; 85025; 85610; 85730; 86140; 86850; 86900; 86901; 86920; 87040; 87635; 88305; 93005; 94640; 96361; 96374; 96375; 99291

== ENCOUNTER 2019-10-31 09:54 | Observation (INO) | payer MEDICARE ==
[2019-10-31] MEDS ORDERED: SODIUM CHLORIDE 0.9% 500 ML 500 ML IV STA (10:26)
[2019-10-31] MEDS ORDERED: ONDANSETRON 4 MG/2 ML VIAL IVP STA (10:26)
[2019-10-31] MEDS ORDERED: MORPHINE SULFATE 4 MG/ML SYRINGE IV STA (10:26)
[2019-10-31] MEDS ORDERED: SODIUM CHLORIDE 0.9% 1,000 ML IV STA (10:26)
[2019-10-31] MEDS ORDERED: PANTOPRAZOLE 40 MG/10 ML VIAL IVP STA (10:26)
--- NOTE | 2019-10-31 10:30 | ED ---
General Adult HPI - General Chief complaint: Nausea/Vomiting/Diarrhea Stated complaint: Vomiting Time Seen by Provider: 10/31/19 09:55 Source: patient, EMS, RN notes reviewed Mode of arrival: EMS Limitations: no limitations - History of Present Illness Initial comments: Patient is a pleasant 59-year-old male presenting to the emergency department with nausea vomiting. Onset of symptoms was yesterday. Symptoms have continued. Symptoms are slightly improved with medication by EMS. Patient denies abdominal discomfort. Patient denies chest pain. Patient does admit to feeling a little bit lightheaded that he attributes to vomiting and maybe been a little bit dehydrated. Patient does have history of similar symptoms previously however is not a frequent problem. Patient is unclear why. No fevers. Patient was on [place] tends every 4 hours until around 2-3 days ago when he suddenly stopped. - Related Data Home Medications Medication Instructions Recorded Confirmed Multivitamins, Thera [Multivitamin 1 tab PO DAILY 07/10/19 10/10/19 (formulary)] Folic Acid 1 mg PO DAILY 10/10/19 10/10/19 HYDROcodone/APAP 10-325MG [[place] 1 tab PO Q4H PRN 10/10/19 10/10/19 10-325] Ipratropium-Albuterol Nebulize 3 ml INHALATION RT-QID PRN 10/10/19 10/10/19 [Duoneb 0.5 mg-3 mg/3 ml Soln] Loperamide [Imodium] 2 mg PO Q6H PRN 10/10/19 10/10/19 Magnesium Oxide 400 mg PO HS 10/10/19 10/10/19 Varenicline Tartrate [Chantix See Taper PO DIRECTED 10/10/19 10/10/19 Starter Pack] busPIRone HCl [Buspar] 10 mg PO BID 10/10/19 10/10/19 hydrOXYzine PAMOATE [Vistaril] 25 mg PO BID PRN 10/10/19 10/10/19 traZODone HCL 50 mg PO HS 10/10/19 10/10/19 Previous Rx's Medication Instructions Recorded Thiamine [Vitamin B-1] 100 mg PO DAILY tab 07/24/19 Amoxicillin/Potassium Clav 1 tab PO Q12HR 3 Days #6 tab 10/14/19 [Augmentin 875-125 Tablet] Pantoprazole [Protonix] 40 mg PO BID #60 tab 10/14/19 Rivaroxaban [Xarelto] 20 mg PO DAILY #1 10/14/19 Sucralfate [Carafate] 1 gm PO ACHS #120 tab 10/14/19 Allergies Allergy/AdvReac Type Severity Reaction Status Date / Time tramadol AdvReac Mild Rash/Hives Verified 10/31/19 10:00 Review of Systems ROS Statement: Those systems with pertinent positive or pertinent negative responses have been documented in the HPI. ROS Other: All systems not noted in ROS Statement are negative. Constitutional: Denies: fever Eyes: Denies: eye pain ENT: Denies: ear pain Respiratory: Denies: dyspnea Cardiovascular: Denies: chest pain, palpitations Endocrine: Denies: fatigue Gastrointestinal: Reports: nausea, vomiting. Denies: abdominal pain, diarrhea, constipation Genitourinary: Denies: dysuria Musculoskeletal: Reports: arthralgia (Chronic left knee pain, unchanged). Denies: back pain Skin: Denies: rash Neurological: Denies: weakness Past Medical History Past Medical History: Deep Vein Thrombosis (DVT), GERD/Reflux, Osteoarthritis (OA), Pulmonary Embolus (PE), Seizure Disorder, Syncope Additional Past Medical History / Comment(s): Alcoholism, recent hospitalization for bilateral pulmonary embolism with clot occluding the left pulmonary artery and evidence of right ventricular strain pattern maintained on anticoagulation, COPD, chronic hypoxic respiratory failure, FEV1 of 51% of predicted with chronic hypoxic respiratory failure, chronic smoker carries more than on the PACU smoking history, alcoholism, history of delirium tremens, history of recurrent falls, history of rib fractures related to falls, GERD, diverticulosis, seizure disorder, osteoarthritis, history of small bowel obstruction secondary to incarcerated right inguinal hernia, History of Any Multi-Drug Resistant Organisms: MRSA Date of last positivie culture/infection: 12/13/18 MDRO Source:: Knee Aspirate Past Surgical History: Orthopedic Surgery Additional Past Surgical History / Comment(s): Colonoscopies and polypectomies, 10/21/15 normal cardiac cath, multiple inguinal hernia surg., bilateral knee arthroscopies and pt states bilateral knee arthroplasties."had blood clots removed from lungs at [facility], i'not sure what they did". Knee surgery- 7 surgeries on the left knee Past Anesthesia/Blood Transfusion Reactions: No Reported Reaction Past Psychological History: Anxiety, Depression Smoking Status: Current every day smoker Past Alcohol Use History: Abuse, Daily Past Drug Use History: None Reported - Past Family History Father Family Medical History: Coronary Artery Disease (CAD), Myocardial Infarction (MA) Additional Family Medical History / Comment(s): Father of a MA at the age of 73 yrs. Mother Family Medical History: Cancer Additional Family Medical History / Comment(s): BREAST CA General Exam Limitations: no limitations General appearance: alert, in no apparent distress Head exam: Present: normocephalic Eye exam: Present: normal appearance, PERRL ENT exam: Present: normal oropharynx Neck exam: Present: normal inspection Respiratory exam: Present: normal lung sounds bilaterally Cardiovascular Exam: Present: regular rate, normal rhythm GI/Abdominal exam: Present: soft, normal bowel sounds. Absent: distended, tenderness, guarding, rebound, rigid, pulsatile mass Extremities exam: Present: other (Postsurgical changes left knee). Absent: pedal edema, calf tenderness Neurological exam: Present: alert. Absent: motor sensory deficit Psychiatric exam: Present: normal affect, normal mood Skin exam: Present: normal color Course Vital Signs 10/31/19 10/31/19 10/31/19 09:56 10:30 11:00 Temperature 98.5 F Pulse Rate 81 81 80 Respiratory 18 18 18 Rate Blood Pressure 130/83 113/98 120/99 O2 Sat by Pulse 100 95 95 Oximetry 10/31/19 10/31/19 12:00 13:00 Temperature Pulse Rate 82 82 Respiratory 18 18 Rate Blood Pressure 141/84 142/88 O2 Sat by Pulse 94 L 94 L Oximetry EKG Findings - EKG Comments: EKG Findings:: Normal sinus rhythm 82. NV 152. QRS 86. QT 462. QTC 539. Right axis. Low QRS voltage. Q waves in leads V1 and V2. Q waves inverted inferior as well as V3 through V6. Medical Decision Making - Medical Decision Making Patient reevaluated and feeling better. Patient updated on results and plan. Secondary to changes with EKG case was discussed with Dr. Harry who will agree to admit his patient. He also agrees with cardiology consult. - Lab Data Result diagrams: 10/31/19 11:08 10/31/19 11:08 Lab Results 10/31/19 10/31/19 10/31/19 Range/Units 11:08 11:08 11:08 WBC 6.8 (3.8-10.6) k/uL RBC 4.00 L (4.30-5.90) m/uL Hgb 10.1 L (13.0-17.5) gm/dL Hct 35.0 L (39.0-53.0) % MCV 87.6 (80.0-100.0) fL MCH 25.2 (25.0-35.0) pg MCHC 28.7 L (31.0-37.0) g/dL RDW 20.3 H (11.5-15.5) % Plt Count 179 (150-450) k/uL Neutrophils % 77 % Lymphocytes % 18 % Monocytes % 3 % Eosinophils % 1 % Basophils % 0 % Neutrophils # 5.3 (1.3-7.7) k/uL Lymphocytes # 1.3 (1.0-4.8) k/uL Monocytes # 0.2 (0-1.0) k/uL Eosinophils # 0.0 (0-0.7) k/uL Basophils # 0.0 (0-0.2) k/uL Hypochromasia Marked Poikilocytosis Slight Anisocytosis Moderate PT 13.2 H (9.0-12.0) sec INR 1.3 H (<1.2) APTT 26.1 (22.0-30.0) sec Sodium 140 (137-145) mmol/L Potassium 3.4 L (3.5-5.1) mmol/L Chloride 106 (98-107) mmol/L Carbon Dioxide 24 (22-30) mmol/L Anion Gap 10 mmol/L BUN 13 (9-20) mg/dL Creatinine 0.86 (0.66-1.25) mg/dL Est GFR (CKD-EPI)AfAm >90 (>60 ml/min/1.73 sqM) Est GFR (CKD-EPI)NonAf >90 (>60 ml/min/1.73 sqM) Glucose 95 (74-99) mg/dL Calcium 7.4 L (8.4-10.2) mg/dL Total Bilirubin 1.4 H (0.2-1.3) mg/dL AST 56 (17-59) U/L ALT 14 (4-49) U/L Alkaline Phosphatase 197 H (38-126) U/L Creatine Kinase 30 L (55-170) U/L Troponin I (0.000-0.034) ng/mL Total Protein 6.0 L (6.3-8.2) g/dL Albumin 2.8 L (3.5-5.0) g/dL Amylase 48 (30-110) U/L Lipase 215 (23-300) U/L 10/31/19 Range/Units 11:08 WBC (3.8-10.6) k/uL RBC (4.30-5.90) m/uL Hgb (13.0-17.5) gm/dL Hct (39.0-53.0) % MCV (80.0-100.0) fL MCH (25.0-35.0) pg MCHC (31.0-37.0) g/dL RDW (11.5-15.5) % Plt Count (150-450) k/uL Neutrophils % % Lymphocytes % % Monocytes % % Eosinophils % % Basophils % % Neutrophils # (1.3-7.7) k/uL Lymphocytes # (1.0-4.8) k/uL Monocytes # (0-1.0) k/uL Eosinophils # (0-0.7) k/uL Basophils # (0-0.2) k/uL Hypochromasia Poikilocytosis Anisocytosis PT (9.0-12.0) sec INR (<1.2) APTT (22.0-30.0) sec Sodium (137-145) mmol/L Potassium (3.5-5.1) mmol/L Chloride (98-107) mmol/L Carbon Dioxide (22-30) mmol/L Anion Gap mmol/L BUN (9-20) mg/dL Creatinine (0.66-1.25) mg/dL Est GFR (CKD-EPI)AfAm (>60 ml/min/1.73 sqM) Est GFR (CKD-EPI)NonAf (>60 ml/min/1.73 sqM) Glucose (74-99) mg/dL Calcium (8.4-10.2) mg/dL Total Bilirubin (0.2-1.3) mg/dL AST (17-59) U/L ALT (4-49) U/L Alkaline Phosphatase (38-126) U/L Creatine Kinase (55-170) U/L Troponin I <0.012 (0.000-0.034) ng/mL Total Protein (6.3-8.2) g/dL Albumin (3.5-5.0) g/dL Amylase (30-110) U/L Lipase (23-300) U/L - Radiology Data Radiology results: image reviewed (Chest x-ray shows no acute process. KUB shows no acute process) Disposition Clinical Impression: Vomiting, T wave inversion in EKG Disposition: ADMITTED IP TO THIS HOSP Is patient prescribed a controlled substance at d/c from ED?: No Referrals: Reggie Edward MD [Primary Care Provider] - 1-2 days Decision Time: 13:46
[2019-10-31] MEDS ORDERED: LORazepam 2 MG/ML INJ IV STA (11:11)
[2019-10-31 11:27] LABS: Anisocytosis Moderate; Basophils % (A) 0 %; Eosinophils % (A) 1 %; HGB 10.1 gm/dL (13.0-17.5); Hypochromasia Marked; Lymphocytes # (A) 1.3 k/uL (1.0-4.8); Lymphocytes % (A) 18 %; MCH 25.2 pg (25.0-35.0); MCHC 28.7 g/dL (31.0-37.0); MCV 87.6 fL (80.0-100.0); Mean Platelet Volume 7.5; Monocytes # (A) 0.2 k/uL (0-1.0); Monocytes % (A) 3 %; Neutrophils # (A) 5.3 k/uL (1.3-7.7); Neutrophils % (A) 77 %; Platelet Count 179 k/uL (150-450); Poikilocytosis Slight; RDW 20.3 % (11.5-15.5); WBC 6.8 k/uL (3.8-10.6)
[2019-10-31 11:35] LABS: ALT 14 U/L (4-49); AST 56 U/L (17-59); African American GFR (CKD) >90 (>60 ml/min/1.73 sqM); Albumin 2.8 g/dL (3.5-5.0); Alkaline Phosphatase 197 U/L (38-126); Amylase 48 U/L (30-110); Anion Gap 10 mmol/L; Blood Urea Nitrogen 13 mg/dL (9-20); Calcium 7.4 mg/dL (8.4-10.2); Carbon Dioxide 24 mmol/L (22-30); Chloride 106 mmol/L (98-107); Creatine Kinase 30 U/L (55-170); Glucose 95 mg/dL (74-99); Non-African American GFR(CKD) >90 (>60 ml/min/1.73 sqM); Potassium 3.4 mmol/L (3.5-5.1); Sodium 140 mmol/L (137-145); Total Bilirubin 1.4 mg/dL (0.2-1.3)
[2019-10-31 11:38] LABS: INR 1.3 (<1.2); Partial Thromboplastin Time 26.1 sec (22.0-30.0); Prothrombin Time 13.2 sec (9.0-12.0)
--- NOTE | 2019-10-31 11:55 | XR ---
EXAMINATION TYPE: XR chest 2V DATE OF EXAM: 10/31/2019 COMPARISON: Prior chest x-ray 10/12/2019 HISTORY: Abdominal pain TECHNIQUE: Frontal and lateral views of the chest are obtained. FINDINGS: There is no focal air space opacity, pleural effusion, or pneumothorax seen. Suspect some chronic pleural reaction left costophrenic angle. The cardiac silhouette size is within normal limit s. The osseous structures are remarkable for previously identified fracture of the left eighth rib, there may be pseudarthrosis, ninth rib shows healed fracture appearance. There are overlying cardiac leads. Chronic acromioclavicular separation changes suspected in the right shoulder. IMPRESSION: No acute cardiopulmonary process.
--- NOTE | 2019-10-31 11:57 | XR ---
KUB HISTORY: Abdominal pain Frontal KUB submitted and correlated to prior exam 01/28/2018 Metallic coils again noted in the right lower quadrant. Inferior vena cava filter has been placed in the interval, nose of the filter is at approximately the L2-3 disc space level. Probable vascular augie cifications are present within the pelvis. There is no evident pneumoperitoneum or bowel obstruction. Degenerative disc changes are present within the visualized spine. IMPRESSION: Postprocedural changes. No acute abnormality is evident.
[2019-10-31] MEDS ORDERED: NALOXONE 0.4 MG/ML 1 ML VIAL IV PRN (13:46)
[2019-10-31] MEDS ORDERED: ONDANSETRON 4 MG/2 ML VIAL IVP PRN (13:46)
[2019-10-31] MEDS ORDERED: MORPHINE SULFATE 4 MG/ML SYRINGE IV PRN (13:46)
[2019-10-31] MEDS ORDERED: LORazepam 2 MG/ML INJ IV PRN ×2 (17:10)
[2019-10-31] MEDS: HYDROcodone/APAP 10-325MG 1 EACH TAB PO SCH ×2 (17:19→21:18)
[2019-10-31] MEDS: THIAMINE 100 MG TAB PO SCH (18:01)
[2019-10-31] MEDS: SUCRALFATE 1 GM TAB PO SCH ×2 (18:01→21:17)
[2019-10-31] MEDS: CALCIUM CARBONATE 500 MG CHEWABLE PO SCH ×2 (18:01→21:17)
[2019-10-31] MEDS ORDERED: MAGNESIUM SULFATE-D5W PMX 1 GM in DEXTROSE/WATER 1 100ML.BAG IVPB ONE (19:00)
[2019-10-31] MEDS: traZODone HCL 50 MG TAB PO SCH (21:17)
[2019-10-31] MEDS: MAGNESIUM OXIDE 400 MG TAB PO SCH (21:17)
[2019-10-31] MEDS: busPIRone HCl 10 MG TAB PO SCH (21:18)
[2019-11-01] MEDS: SUCRALFATE 1 GM TAB PO SCH ×4 (06:51→20:06)
[2019-11-01] MEDS: THIAMINE 100 MG TAB PO SCH ×2 (06:51→17:34)
[2019-11-01] MEDS: SODIUM CHLORIDE 0.9% 1,000 ML IV SCH ×2 (07:51→17:16)
[2019-11-01] MEDS: CALCIUM CARBONATE 500 MG CHEWABLE PO SCH ×3 (08:16→20:06)
[2019-11-01] MEDS: FOLIC ACID 1 MG TAB PO SCH ×2 (08:16→08:26)
[2019-11-01] MEDS: MULTIVITAMINS, THERA 1 EACH TAB PO SCH ×2 (08:16→08:26)
[2019-11-01] MEDS: busPIRone HCl 10 MG TAB PO SCH ×2 (08:16→20:06)
[2019-11-01] MEDS: RIVAROXABAN 20 MG TAB PO SCH (08:16)
[2019-11-01] MEDS: HYDROcodone/APAP 10-325MG 1 EACH TAB PO SCH (08:17)
[2019-11-01] MEDS ORDERED: PANTOPRAZOLE 40 MG/10 ML VIAL IV SCH (09:00)
[2019-11-01] MEDS: LORazepam 2 MG/ML INJ IV PRN ×2 (09:06→15:34)
[2019-11-01 10:55] LABS: African American GFR (CKD) >90 (>60 ml/min/1.73 sqM); Anion Gap 5 mmol/L; Blood Urea Nitrogen 11 mg/dL (9-20); Calcium 7.1 mg/dL (8.4-10.2); Carbon Dioxide 25 mmol/L (22-30); Chloride 106 mmol/L (98-107); Glucose 135 mg/dL (74-99); Magnesium 1.6 mg/dL (1.6-2.3); Non-African American GFR(CKD) >90 (>60 ml/min/1.73 sqM); Potassium 3.4 mmol/L (3.5-5.1); Sodium 136 mmol/L (137-145)
[2019-11-01] MEDS ORDERED: MAGNESIUM OXIDE 400 MG TAB PO STA (11:46)
[2019-11-01] MEDS ORDERED: POTASSIUM CHLORIDE ER 20 MEQ TAB.ER PO STA (11:47)
--- NOTE | 2019-11-01 12:00 | ECHOF ---
Referral Reason:abnormal ekg MEASUREMENTS -------- HEIGHT: 172.7 cm WEIGHT: 69.4 kg BP: RVIDd: 4.2 cm (< 3.3) IVSd: 0.9 cm (0.6 - 1.1) LVIDd: 3.8 cm (3.9 - 5.3) LVPWd: 1.0 cm (0.6 - 1.1) IVSs: 1.5 cm LVIDs: 2.3 cm LVPWs: 1.6 cm LAESV Index (A-L): 21.12 ml/m Ao Diam: 3.2 cm (2.0 - 3.7) AV Cusp: 1.8 cm (1.5 - 2.6) LA Diam: 2.5 cm (2.7 - 3.8) MV EXCURSION: 20.477 mm (> 18.000) MV EF SLOPE: 72 mm/s (70 - 150) EPSS: 0.5 cm MV E Ej: 0.57 m/s MV DecT: 243 ms MV A Ej: 0.70 m/s MV E/A Ratio: 0.82 RAP: 5.00 mmHg RVSP: 21.98 mmHg TAPSE: 16.31 mm FINDINGS -------- Sinus rhythm. This was a technically good study. The left ventricular size is normal. Left ventricular wall thickness is normal. Overall left vent ricular systolic function is normal with, an EF between 55 - 60 %. There is paradoxical/dysynergic septal motion consistent with right ventricular volume overload and/or elevated right ventricular end -diastolic pressure. The right ventricle is severely enlarged. The left atrial size is normal. Normal LA size by volume 22+/-6 ml/m2. The right atrial size is normal. The aortic valve is trileaflet and appears structurally normal. The mitral valve is normal. There is trace mitral regurgitation. The tricuspid valve appears structurally normal. Mild tricuspid regurgitation present. Right vent ricular systolic pressure is normal at < 35 mmHg. There is no pulmonic regurgitation present. The aortic root size is normal. Normal inferior vena cava with normal inspiratory collapse consistent with estimated right atrial pre ssure of 5 mmHg. There is no pericardial effusion. CONCLUSIONS -------- 1. Sinus rhythm. 2. This was a technically good study. 3. The left ventricular size is normal. 4. Left ventricular wall thickness is normal. 5. Overall left ventricular systolic function is normal with, an EF between 55 - 60 %. 6. There is paradoxical/dysynergic septal motion consistent with right ventricular volume overload an d/or elevated right ventricular end-diastolic pressure. 7. The right ventricle is severely enlarged. 8. The left atrial size is normal. 9. Normal LA size by volume 22+/-6 ml/m2. 10. The right atrial size is normal. 11. The aortic valve is trileaflet and appears structurally normal. 12. The mitral valve is normal. 13. There is trace mitral regurgitation. 14. The tricuspid valve appears structurally normal. 15. Mild tricuspid regurgitation present. 16. Right ventricular systolic pressure is normal at < 35 mmHg. 17. There is no pulmonic regurgitation present. 18. The aortic root size is normal. 19. Normal inferior vena cava with normal inspiratory collapse consistent with estimated right atrial pressure of 5 mmHg. 20. There is no pericardial effusion. PIN INSERTER REGULATOR: Angie العلي RDCS
[2019-11-01] MEDS: NICOTINE 14MG/24HR PATCH TRANSDERM SCH (12:33)
[2019-11-01] MEDS: HYDROcodone/APAP 10-325MG 1 EACH TAB PO PRN ×2 (13:56→20:07)
[2019-11-01 14:14] VITALS: BMI 23.2
--- NOTE | 2019-11-01 14:26 | CONS ---
CONSULTATION Mr. Villalpando is a 59-year-old male with known history of chronic tobacco and alcohol intake, history of pulmonary embolism 2018, recent GI bleeding, who came into the hospital with symptoms of nausea, but no bleeding. Cardiology consultation was requested because of abnormal EKG. The patient denies any prior history of obstructive coronary artery disease. He has dyspnea on exertion. He has no chest pain. No dizziness. No palpitation. No syncope. Has peripheral edema more on the left side. Apparently had multiple surgical intervention. He has no prior documented history of congestive heart failure. He was admitted to the hospital recently with an episode of GI bleeding. His coronary risk factors are remarkable for the smoking, he is nondiabetic. He was told that he is borderline hypertension, but not treated. MEDICATIONS: Reveal trazodone, Zestril, BuSpar, thiamine, Carafate, Xarelto, Imodium, DuoNeb, and [place]. REVIEW OF SYSTEMS: RESPIRATORY SYSTEM: Had dyspnea on exertion and cough and chronic obstructive lung disease. GI SYSTEM: He had recent GI bleeding. He had nausea but no recurrence of the GI bleeding. SYSTEM: No dysuria or hematuria. NERVOUS SYSTEM: No stroke or seizure. PHYSICAL EXAMINATION: A 59-year-old male, alert, oriented, in no apparent distress. Blood pressure 118/70 with a heart rate in the 80s. HEAD: Normocephalic. EYES: Sclerae nonicteric. NECK: Good upstroke, no bruit, no jugular venous distention. LUNGS: With decreased air exchange bilaterally, no wheezes. HEART: Regular rate and rhythm, S1, S2, plus S4 and a systolic murmur at the base. No diastolic murmur, no rub. ABDOMEN: Soft, nontender, positive bowel sounds, no organomegaly. EXTREMITIES: With chronic skin changes. Trace edema bilaterally. LAB DATA: Revealed hemoglobin of 10.1. His BUN and creatinine of 13 and 0.86. Troponin less than 0.012. Lipase is 215. EKG revealed a sinus mechanism with T-wave inversion in the anterolateral leads that was noted in the past. IMPRESSION: 1. Nausea. Workup in progress, etiology unclear with a recent episode of GI bleeding. 2. History of chronic tobacco use. 3. History of chronic alcohol intake. 4. Abnormal EKG, that was noted in the past. RECOMMENDATION: From the cardiac standpoint, I see no evidence for acute coronary artery syndrome. He had similar EKG changes and in the past. I will obtain echocardiogram to evaluate the systolic function. If there is no segmental wall motion abnormality, then no further cardiac workup will be needed at this point. He may require further cardiac workup as an outpatient. Thank you for this consult. Will follow with you. HATTIE / SAMANTHA: [id number] / MTDD
[2019-11-01 17:10] VITALS: RESP 18
[2019-11-01] MEDS: MAGNESIUM OXIDE 400 MG TAB PO SCH (20:06)
[2019-11-01] MEDS: traZODone HCL 50 MG TAB PO SCH (20:06)
[2019-11-02] MEDS ORDERED: HYDROcodone/APAP 10-325MG 1 EACH TAB ONE (02:00)
[2019-11-02] MEDS: SUCRALFATE 1 GM TAB PO SCH ×2 (05:44→11:37)
[2019-11-02] MEDS: THIAMINE 100 MG TAB PO SCH (05:44)
[2019-11-02] MEDS: busPIRone HCl 10 MG TAB PO SCH (08:07)
[2019-11-02] MEDS: NICOTINE 14MG/24HR PATCH TRANSDERM SCH (08:07)
[2019-11-02] MEDS: FOLIC ACID 1 MG TAB PO SCH (08:07)
[2019-11-02] MEDS: CALCIUM CARBONATE 500 MG CHEWABLE PO SCH (08:07)
[2019-11-02] MEDS: RIVAROXABAN 20 MG TAB PO SCH (08:08)
[2019-11-02] MEDS: MULTIVITAMINS, THERA 1 EACH TAB PO SCH (08:08)
[2019-11-02] MEDS: HYDROcodone/APAP 10-325MG 1 EACH TAB PO PRN ×2 (08:11→14:15)
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
[2019-11-02] MEDS ORDERED: PANTOPRAZOLE 40 MG TABLET PO SCH (09:00)
[2019-11-02] MEDS ORDERED: Potassium Replacement Protocol 1 EACH MISC MISCELLANE PRN ×2 (11:16→11:26)
[2019-11-02] MEDS ORDERED: Magnesium Replacement Protocol 1 EACH MISC MISCELLANE PRN (11:17)
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
[2019-11-02] MEDS: POTASSIUM CHLORIDE ER 20 MEQ TAB.ER PO SCH ×2 (11:37→14:16)
[2019-11-02 12:33] VITALS: BP 118/65; PULSE 78; TEMP 98
--- NOTE | 2019-11-02 12:35 | P.PN ---
Subjective Progress Note Date: 11/02/19 This a 59-year-old gentleman with history of chronic tobacco and alcohol abuse, history of PE in 2018, recent history of GI bleeding, came to the hospital with symptoms of nausea without bleeding. We were asked to see the patient in consultation due to an abnormal EKG however this was noted in the past. Echocardiogram this admission showed normal LV systolic function with an ejection fraction of 55-60% and enlarged RV. Troponins were negative 3. Patient is hoping to be discharged home today. He is overall feeling better. He has no further nausea. Objective - Vital Signs Vital signs: Vital Signs Temp 98.1 F 11/02/19 07:50 Pulse 80 11/02/19 07:50 Resp 18 11/02/19 07:50 BP 130/80 11/02/19 07:50 Pulse Ox 99 11/02/19 07:50 Intake & Output 11/01/19 11/02/19 11/02/19 18:59 06:59 18:59 Intake Total 480 Output Total 500 850 750 Balance -20 -850 -750 Weight 69.4 kg 65.5 kg Intake: Oral 480 Output: Urine 500 850 750 Other: # Voids 1 # Bowel Movements 1 - Exam PHYSICAL EXAMINATION: HEENT: Head is atraumatic, normocephalic. Pupils equal, round. Neck is supple. There is no elevated jugular venous pressure. HEART EXAMINATION: Heart sounds regular, S1 and S2 normal. No murmur or gallop heard. CHEST EXAMINATION: Lungs reveal diminished air entry bilaterally. No chest wall tenderness is noted on palpation or with deep breathing. ABDOMEN: Soft, nontender. Bowel sounds are heard. No organomegaly noted. EXTREMITIES: 2+ peripheral pulses with evidence of trace peripheral edema and chronic skin changes. NEUROLOGIC patient is awake, alert and oriented x3. . - Labs CBC & Chem 7: 10/31/19 11:08 11/01/19 09:26 Assessment and Plan Assessment: #1 nausea, resolved #2 chronic tobacco use #3 chronic alcohol intake #4 abnormal EKG, noted in the past #5 history of PE #6 history of recent GI bleeding Plan: From cardiology's perspective, patient is stable for discharge home. He'll follow up in the office in about 3-4 weeks. BRANCH CUSTOMER SERVICE REPRESENTATIVE note has been reviewed, I agree with a documented findings and plan of care. Patient was seen and examined.
== END 2019-11-02 14:27 | disposition home or self-care (01) ==
LOC: EC 09:54 → 1SOBS 13:46 → 3SCARD 17:01
PROVIDERS: ADMIT Family Medicine; ATTEND Family Medicine
DX: F11.23 Opioid dependence with withdrawal (principal); F10.239 Alcohol dependence with withdrawal, unspecified; R94.31 Abnormal electrocardiogram [ECG] [EKG]; E87.6 Hypokalemia; E83.42 Hypomagnesemia; M79.2 Neuralgia and neuritis, unspecified; R17 Unspecified jaundice; D64.9 Anemia, unspecified; R03.0 Elevated blood-pressure reading, without diagnosis of hypertension; E88.09 Other disorders of plasma-protein metabolism, not elsewhere classified; F41.9 Anxiety disorder, unspecified; J44.9 Chronic obstructive pulmonary disease, unspecified; G89.29 Other chronic pain; K21.9 Gastro-esophageal reflux disease without esophagitis; K22.70 Barrett's esophagus without dysplasia; M25.562 Pain in left knee; M19.90 Unspecified osteoarthritis, unspecified site; G40.909 Epilepsy, unspecified, not intractable, without status epilepticus; F17.200 Nicotine dependence, unspecified, uncomplicated; Z99.81 Dependence on supplemental oxygen; Z91.81 History of falling; Z86.711 Personal history of pulmonary embolism; Z87.01 Personal history of pneumonia (recurrent); Z86.14 Personal history of Methicillin resistant Staphylococcus aureus infection; Z87.19 Personal history of other diseases of the digestive system; Z86.010 Personal history of colon polyps; Z96.653 Presence of artificial knee joint, bilateral; Z79.899 Other long term (current) drug therapy; Z79.01 Long term (current) use of anticoagulants; Z88.5 Allergy status to narcotic agent; Z82.49 Family history of ischemic heart disease and other diseases of the circulatory system; Z80.3 Family history of malignant neoplasm of breast; Z20.828 Contact with and (suspected) exposure to other viral communicable diseases
CPT/HCPCS: 96376 ×2; 96365; 96375; 99285; 36415; 93005; 93306; 97162; 97166; 36410; 76937; 80053; 80048; 82150; 82550; 83690; 83735 ×2; 84484; 85025; 85610; 85730; 71046; 74018; G0378 ×4; U0003; S4990 ×2; J2060 ×2; J2270; J2405; J3475; C9113 ×2

== ENCOUNTER 2019-11-15 09:02 | Day surgery (SDC) | payer MEDICARE ==
[2019-11-15] MEDS ORDERED: ALPRAZolam 0.5 MG TAB PO ONE (09:08)
[2019-11-15 09:40] VITALS: BP 122/80; PULSE 93; RESP 16; TEMP 98.5
--- NOTE | 2019-11-15 17:04 | US ---
EXAMINATION TYPE: US discontinued arthrocentesis left knee DATE OF EXAM: 11/15/2019 CLINICAL DATA: 59-year-old male with a antibiotic impregnated cement spacer after failed left knee r [facility], [facility]. Assess for infection. COMPARISON: Radiographs 07/09/2019 TECHNIQUE AND FINDINGS: Scanning along the suprapatellar region along the intended access site for joint fluid shows no appre ciable effusion for aspiration. Findings relayed to the patient. Aspiration is canceled at this time. IMPRESSION: Cement spacer left knee arthroplasty referred for arthrocentesis to assess for infection. The procedu re was canceled after initial scanning and no fluid for aspiration is identified.
== END 2019-11-15 10:20 | disposition home or self-care (01) ==
LOC: RADPROMAIN 09:02
PROVIDERS: ATTEND Orthopaedic Surgery
DX: T84.54XA Infection and inflammatory reaction due to internal left knee prosthesis, initial encounter (principal); Z53.8 Procedure and treatment not carried out for other reasons
CPT/HCPCS: 76536

== ENCOUNTER 2020-01-01 21:04 | Observation (INO) | payer MEDICARE ==
--- NOTE | 2020-01-01 21:29 | ED ---
General Adult HPI - General Chief complaint: Chest Pain Stated complaint: Chest Pain Time Seen by Provider: 01/01/20 21:14 Source: patient, EMS Mode of arrival: EMS Limitations: no limitations - History of Present Illness Initial comments: Dictation was produced using [employer] dictation software. please excuse any grammatical, word or spelling errors. This patient was cared for during a federal and state declared state of emergency secondary to Covid 19 Chief Complaint: 59-year-old male past nuchal history of COPD, PE, seizures presents with chest pain History of Present Illness: 59-year-old male is brought in by EMS for chest caesar n. Patient is a poor historian. He is inebriated. Patient states he had chest pain for approximately 5 hours. Patient states the pain is substernal. Denies any radiation to the shoulders or jaw. No associated diaphoresis. Patient lives at home. He had 212 ounce beers just prior to arrival. The ROS documented in this emergency department record has been reviewed and confirmed by me. Those systems with pertinent positive or negative responses have been documented in the HPI. All other systems are other negative and/or noncontributory. PHYSICAL EXAM: General Impression: Alert and oriented x3, not in acute distress, inebriated HEENT: Normocephalic atraumatic, extra-ocular movements intact, pupils equal and reactive to light bilaterally, mucous membranes moist, mild icterus Cardiovascular: Heart regular rate and rhythm Chest: Able to complete full sentences, no retractions, no tachypnea Abdomen: abdomen soft, non-tender, non-distended, no organomegaly Musculoskeletal: Pulses present and equal in all extremities, no peripheral edema Motor: no focal deficits noted Neurological: CN II-XII grossly intact, no focal motor or sensory deficits noted Skin: Intact with no visualized rashes Psych: Normal affect and mood ED course: 59-year-old male presents with chest pain. All signs upon arrival shows heart rate of 109, 94% on 2 L via cannula. Laboratory evaluation obtained. CBC shows hemoglobin 9.4. This appears to be around patient's baseline. Rest of CBC is patient's baseline. Metabolic panel shows potassium 2.8. Patient given oral potassium. He does have calcium of 7.0 magnesium 1.5. Lipase levels 45. Serum alcohol is 410. Chest x-ray is nonacute. Repeat EKG performed showed no dynamic changes. Patient be admitted for electrolyte abnormalities and EtOH intoxication. Patient case was discussed with Dr. Roche who is willing to accept patients care. EKG interpretation: Ventricular rate 109, sinus tachycardia,. 144, QRS 94, QTC 479. No KS prolongation, no QTC prolongation, no ST or T-wave changes noted. EKG compared to EKG from 10/31/2019 showing no changes. - Related Data Home Medications Medication Instructions Recorded Confirmed Multivitamins, Thera [Multivitamin 1 tab PO DAILY 07/10/19 11/15/19 (formulary)] Folic Acid 1 mg PO DAILY 10/10/19 11/15/19 HYDROcodone/APAP 10-325MG [[place] 1 tab PO Q4H PRN 10/10/19 11/15/19 10-325] Ipratropium-Albuterol Nebulize 3 ml INHALATION RT-QID PRN 10/10/19 11/15/19 [Duoneb 0.5 mg-3 mg/3 ml Soln] Loperamide [Imodium] 2 mg PO Q6H PRN 10/10/19 11/15/19 Magnesium Oxide 400 mg PO HS 10/10/19 11/15/19 Varenicline Tartrate [Chantix See Taper PO DIRECTED 10/10/19 11/15/19 Starter Pack] busPIRone HCl [Buspar] 10 mg PO BID 10/10/19 11/15/19 hydrOXYzine pamoate [Vistaril] 25 mg PO BID PRN 10/10/19 11/15/19 traZODone HCL 50 mg PO HS 10/10/19 11/15/19 Potassium Chloride [K-Tab ER] 20 meq PO DAILY 11/06/19 11/15/19 Previous Rx's Medication Instructions Recorded Thiamine [Vitamin B-1] 100 mg PO DAILY tab 07/24/19 Pantoprazole [Protonix] 40 mg PO BID #60 tab 10/14/19 Rivaroxaban [Xarelto] 20 mg PO DAILY #1 10/14/19 Sucralfate [Carafate] 1 gm PO ACHS #120 tab 10/14/19 Nicotine 14Mg/24Hr Patch [Habitrol] 1 patch TRANSDERM DAILY #30 patch 11/02/19 Allergies Allergy/AdvReac Type Severity Reaction Status Date / Time tramadol Allergy Mild Rash/Hives Verified 11/15/19 09:42 Review of Systems ROS Statement: Those systems with pertinent positive or pertinent negative responses have been documented in the HPI. ROS Other: All systems not noted in ROS Statement are negative. Past Medical History Past Medical History: COPD, GERD/Reflux, Osteoarthritis (OA), Pneumonia, Pulmonary Embolus (PE), Respiratory Disorder, Seizure Disorder, Syncope Additional Past Medical History / Comment(s): acute upper GI bleed/acute blood loss anemia. Other hx: ETOH abuse, delirium tremors, last seizure many years ago, falls, rib fractures d/t falls, chronic hypoxic respiratory failure, home oxygen prn, diverticulosis, gastritis, ulcerative esophagitis, Borges's esophagus, bilateral pulmonary embolisms, L knee pain/unable to bend d/t rodding, SBO as a child/incarcerated R inguinal hernia, History of Any Multi-Drug Resistant Organisms: MRSA Date of last positivie culture/infection: 12/13/18 MDRO Source:: Knee Aspirate Past Surgical History: Appendectomy, Joint Replacement, Orthopedic Surgery, Tonsillectomy Additional Past Surgical History / Comment(s): Colonoscopies and polypectomies, EGD, 10/21/15 normal cardiac cath, multiple inguinal hernia surg., bilateral knee arthroscopies, bilateral knee arthroplasties, 8 surgeries on L knee-rodded, "had blood clots removed from lungs at [facility] Past Anesthesia/Blood Transfusion Reactions: No Reported Reaction Additional Past Anesthesia/Blood Transfusion Reaction / Comment(s): Pt has received blood in past without reactions. Past Psychological History: Anxiety, Depression Smoking Status: Current every day smoker Past Alcohol Use History: Abuse, Daily Past Drug Use History: None Reported - Past Family History Father Family Medical History: Coronary Artery Disease (CAD), Myocardial Infarction (SD) Additional Family Medical History / Comment(s): Father of a SD at the age of 73 yrs. Mother Family Medical History: Cancer Additional Family Medical History / Comment(s): BREAST CA. Mother is living General Exam Limitations: no limitations Course Vital Signs 01/01/20 01/01/20 21:08 22:28 Temperature 98.0 F Pulse Rate 109 H Pulse Rate [ 80 Bilateral] Respiratory 16 Rate Blood Pressure 85/75 O2 Sat by Pulse 94 L Oximetry Medical Decision Making - Lab Data Result diagrams: 01/01/20 21:44 01/01/20 21:44 Lab Results 01/01/20 01/01/20 01/01/20 Range/Units 21:44 21:44 21:44 WBC 8.3 (3.8-10.6) k/uL RBC 3.61 L (4.30-5.90) m/uL Hgb 9.4 L (13.0-17.5) gm/dL Hct 32.6 L (39.0-53.0) % MCV 90.4 (80.0-100.0) fL MCH 26.2 (25.0-35.0) pg MCHC 29.0 L (31.0-37.0) g/dL RDW 20.9 H (11.5-15.5) % Plt Count 323 (150-450) k/uL Neutrophils % 60 % Lymphocytes % 21 % Monocytes % 10 % Eosinophils % 3 % Basophils % 2 % Neutrophils # 5.0 (1.3-7.7) k/uL Lymphocytes # 1.7 (1.0-4.8) k/uL Monocytes # 0.8 (0-1.0) k/uL Eosinophils # 0.3 (0-0.7) k/uL Basophils # 0.2 (0-0.2) k/uL Hypochromasia Marked Poikilocytosis Slight Anisocytosis Moderate Sodium 136 L (137-145) mmol/L Potassium 2.8 L (3.5-5.1) mmol/L Chloride 96 L (98-107) mmol/L Carbon Dioxide 28 (22-30) mmol/L Anion Gap 12 mmol/L BUN 11 (9-20) mg/dL Creatinine 0.82 (0.66-1.25) mg/dL Est GFR (CKD-EPI)AfAm >90 (>60 ml/min/1.73 sqM) Est GFR (CKD-EPI)NonAf >90 (>60 ml/min/1.73 sqM) Glucose 141 H (74-99) mg/dL Calcium 7.0 L (8.4-10.2) mg/dL Magnesium 1.5 L (1.6-2.3) mg/dL Total Bilirubin 0.5 (0.2-1.3) mg/dL AST 43 (17-59) U/L ALT 16 (4-49) U/L Alkaline Phosphatase 190 H (38-126) U/L Troponin I 0.014 (0.000-0.034) ng/mL Total Protein 5.7 L (6.3-8.2) g/dL Albumin 2.9 L (3.5-5.0) g/dL Lipase 405 H (23-300) U/L Serum Alcohol 410 H* mg/dL Disposition Clinical Impression: Alcohol intoxication Disposition: ADMITTED IP TO THIS HOSP Condition: Fair Referrals: Reggie Edward MD [Primary Care Provider] - 1-2 days Decision Time: 22:35
--- NOTE | 2020-01-01 21:51 | XR ---
EXAMINATION TYPE: XR chest 1V portable DATE OF EXAM: 01/01/2020 COMPARISON: Chest x-ray October 31, 2019. HISTORY: Chest pain. TECHNIQUE: Single frontal view of the chest is obtained. FINDINGS: There is chronic parenchymal changes bilaterally without suspicious focal air space opacit y, pleural effusion, or pneumothorax seen. The cardiac silhouette size is upper limits of normal wit h atherosclerotic change aortic knob. The osseous structures are intact. IMPRESSION: Chronic changes without new acute pulmonary process.
[2020-01-01 21:54] LABS: Anisocytosis Moderate; Basophils # (A) 0.2 k/uL (0-0.2); Basophils % (A) 2 %; Eosinophils # (A) 0.3 k/uL (0-0.7); Eosinophils % (A) 3 %; HCT 32.6 % (39.0-53.0); HGB 9.4 gm/dL (13.0-17.5); Hypochromasia Marked; Lymphocytes # (A) 1.7 k/uL (1.0-4.8); Lymphocytes % (A) 21 %; MCH 26.2 pg (25.0-35.0); MCV 90.4 fL (80.0-100.0); Mean Platelet Volume 7.6; Monocytes # (A) 0.8 k/uL (0-1.0); Monocytes % (A) 10 %; Neutrophils % (A) 60 %; Platelet Count 323 k/uL (150-450); Poikilocytosis Slight; RBC 3.61 m/uL (4.30-5.90); RDW 20.9 % (11.5-15.5); WBC 8.3 k/uL (3.8-10.6)
[2020-01-01 22:05] LABS: ALT 16 U/L (4-49); AST 43 U/L (17-59); African American GFR (CKD) >90 (>60 ml/min/1.73 sqM); Albumin 2.9 g/dL (3.5-5.0); Alkaline Phosphatase 190 U/L (38-126); Anion Gap 12 mmol/L; Blood Urea Nitrogen 11 mg/dL (9-20); Carbon Dioxide 28 mmol/L (22-30); Chloride 96 mmol/L (98-107); Glucose 141 mg/dL (74-99); Magnesium 1.5 mg/dL (1.6-2.3); Non-African American GFR(CKD) >90 (>60 ml/min/1.73 sqM); Potassium 2.8 mmol/L (3.5-5.1); Sodium 136 mmol/L (137-145); Total Bilirubin 0.5 mg/dL (0.2-1.3); Total Protein 5.7 g/dL (6.3-8.2)
[2020-01-01 22:19] LABS: Alcohol 410 mg/dL
[2020-01-01] MEDS ORDERED: MAGNESIUM OXIDE 400 MG TAB PO STA (22:33)
[2020-01-01] MEDS ORDERED: POTASSIUM CHLORIDE ER 20 MEQ TAB.ER PO STA (22:33)
[2020-01-01] MEDS ORDERED: CALCIUM GLUCONATE 1 GM in SODIUM CHLORIDE 0.9% 100 ML IVPB ONE (22:34)
[2020-01-01] MEDS ORDERED: NALOXONE 0.4 MG/ML 1 ML VIAL IV PRN (22:35)
[2020-01-01] MEDS ORDERED: ONDANSETRON 4 MG/2 ML VIAL IVP PRN (22:35)
[2020-01-01] MEDS ORDERED: THIAMINE 100 MG/ML 2 ML VIAL IM STA (22:37)
[2020-01-01] MEDS ORDERED: LORazepam 2 MG/ML INJ IV PRN ×3 (22:37)
[2020-01-01] MEDS ORDERED: ASPIRIN 81 MG PO STA (22:37)
[2020-01-01] MEDS: THIAMINE 100 MG TAB PO SCH ×2 (23:03→23:13)
[2020-01-01] MEDS: MULTIVITAMINS, THERA 1 EACH TAB PO SCH (23:13)
[2020-01-01] MEDS: SODIUM CHLORIDE 0.9% 1,000 ML IV SCH (23:15)
[2020-01-01] MEDS ORDERED: QUEtiapine 50 MG TAB PO STA (23:35)
[2020-01-02] MEDS: MULTIVITAMINS, THERA 1 EACH TAB PO SCH (08:58)
[2020-01-02] MEDS: PANTOPRAZOLE 40 MG TABLET PO SCH ×2 (08:58→16:38)
[2020-01-02] MEDS: SODIUM CHLORIDE 0.9% 1,000 ML IV SCH ×2 (08:59→16:38)
[2020-01-02] MEDS ORDERED: RIVAROXABAN 20 MG TAB PO SCH (09:00)
[2020-01-02] MEDS: HYDROcodone/APAP 10-325MG 1 EACH TAB PO PRN ×2 (09:02→16:38)
[2020-01-02 09:07] VITALS: TEMP 98.4
[2020-01-02 09:11] LABS: Anisocytosis Moderate; Basophils # (A) 0.1 k/uL (0-0.2); Basophils % (A) 2 %; Eosinophils # (A) 0.3 k/uL (0-0.7); Eosinophils % (A) 5 %; HCT 30.2 % (39.0-53.0); HGB 8.5 gm/dL (13.0-17.5); Hypochromasia Marked; Lymphocytes # (A) 1.4 k/uL (1.0-4.8); Lymphocytes % (A) 23 %; MCH 26.3 pg (25.0-35.0); MCHC 28.3 g/dL (31.0-37.0); MCV 92.9 fL (80.0-100.0); Macrocytosis Slight; Mean Platelet Volume 7.5; Monocytes # (A) 0.5 k/uL (0-1.0); Monocytes % (A) 8 %; Neutrophils # (A) 3.5 k/uL (1.3-7.7); Neutrophils % (A) 58 %; Platelet Count 238 k/uL (150-450); Poikilocytosis Slight; RBC 3.25 m/uL (4.30-5.90); RDW 20.3 % (11.5-15.5)
[2020-01-02 09:17] LABS: ALT 13 U/L (4-49); AST 31 U/L (17-59); African American GFR (CKD) >90 (>60 ml/min/1.73 sqM); Albumin 2.5 g/dL (3.5-5.0); Alkaline Phosphatase 171 U/L (38-126); Anion Gap 8 mmol/L; Blood Urea Nitrogen 8 mg/dL (9-20); Carbon Dioxide 28 mmol/L (22-30); Chloride 102 mmol/L (98-107); Glucose 83 mg/dL (74-99); Magnesium 1.6 mg/dL (1.6-2.3); Non-African American GFR(CKD) >90 (>60 ml/min/1.73 sqM); Sodium 138 mmol/L (137-145); Total Bilirubin 0.4 mg/dL (0.2-1.3)
[2020-01-02] MEDS ORDERED: Potassium Replacement Protocol 1 EACH MISC MISCELLANE PRN (11:05)
[2020-01-02] MEDS ORDERED: Magnesium Replacement Protocol 1 EACH MISC MISCELLANE PRN (11:09)
[2020-01-02] MEDS: MAGNESIUM SULFATE-D5W PMX 1 GM in DEXTROSE/WATER 1 100ML.BAG IVPB SCH ×2 (11:39→13:03)
[2020-01-02] MEDS: POTASSIUM CHLORIDE ER 20 MEQ TAB.ER PO SCH ×2 (11:39→13:03)
[2020-01-02] MEDS ORDERED: NICOTINE 21MG/24HR PATCH TRANSDERM STA (12:52)
[2020-01-02 16:18] VITALS: BP 103/70; PULSE 103; RESP 16
[2020-01-02 16:29] LABS: Magnesium 2.1 mg/dL (1.6-2.3); Potassium 3.2 mmol/L (3.5-5.1)
[2020-01-02] MEDS: THIAMINE 100 MG TAB PO SCH (16:38)
== END 2020-01-02 17:15 | disposition home or self-care (01) ==
LOC: EC 21:04 → 1SOBS 22:37
PROVIDERS: ADMIT Family Medicine; ATTEND Family Medicine
DX: F10.129 Alcohol abuse with intoxication, unspecified (principal); F17.200 Nicotine dependence, unspecified, uncomplicated; G40.909 Epilepsy, unspecified, not intractable, without status epilepticus; J44.9 Chronic obstructive pulmonary disease, unspecified; J96.11 Chronic respiratory failure with hypoxia; K22.70 Barrett's esophagus without dysplasia; Y90.8 Blood alcohol level of 240 mg/100 ml or more; Z79.01 Long term (current) use of anticoagulants; Z80.3 Family history of malignant neoplasm of breast; Z82.49 Family history of ischemic heart disease and other diseases of the circulatory system; Z86.711 Personal history of pulmonary embolism; Z87.19 Personal history of other diseases of the digestive system; Z96.653 Presence of artificial knee joint, bilateral
CPT/HCPCS: 96366; 96367; 96375; 96365; 99285; 36415; 93005; 80053 ×2; 83690; 83735 ×2; 84132; 84484; 85025 ×2; 71045; G0378 ×2; G0480; S4990; J2060; J3475; J0610; 80320

== ENCOUNTER → 2020-01-08 | Day surgery (SDC) | payer MEDICARE ==
[2020-01-05 12:29] VITALS: BMI 24.7
[~2020-01-08] MED LIST changes: -ACETAMINOPHEN TAB 500 MG TAB PO ONE; -DEXAMETHASONE SOD PHOSPHATE 10 MG/ML 1 ML VIAL IV ONE; -HYDROmorphone 0.5 MG/0.5 ML SYRINGE IVP PRN; +LIDOCAINE 1% INJ 10MG/ML (20 ML MDV) SQ ONE; -MELOXICAM 7.5 MG TAB PO ONE; -MIDAZOLAM (PF) 2 MG/2 ML VIAL IV PRN; -ONDANSETRON 4 MG/2 ML VIAL IVP ONE; -SCOPOLAMINE 1.5MG/72HR PATCH TRANSDERM ONE; -TRANEXAMIC ACID 1,000 MG in SODIUM CHLORIDE 0.9% 50 ML IVPB ONE; -ceFAZolin IN SWFI 2 GM/20 ML SYRINGE IVP ONE
[2020-01-08 12:17] VITALS: BP 120/83; PULSE 116; RESP 16; TEMP 98.2
--- NOTE | 2020-01-08 20:57 | IR ---
EXAMINATION TYPE: IR cvc insert >=5 years DATE OF EXAM: 01/08/2020 COMPARISON: Chest radiograph 01/01/2020 CLINICAL HISTORY: Infection, need for long-term antibiotics SCREENER PERFUMER: Dr. Roseanne Soto PROCEDURE: The procedure was discussed with the patient. The risks, complications, benefits, and alternatives we re discussed and any questions were answered. Informed consent was obtained. The patient was placed s upine. Maximal barrier technique utilized. The skin overlying the left basilic vein was localized with ultra sound and noted to be compressible and patent. An ultrasound image was obtained and submitted on the patient's chart. Sterile technique utilized with the ultrasound machine. The skin overlying was prep ped and draped and Lidocaine used for local anesthesia. Access was gained to the vein under ultrasoun d guidance with a 21 gauge needle and a 0.018 inch wire was advanced. A skin mohan was made with a sca lpel. Access site was dilated with Peel-Away sheath. 4 FR single lumen catheter tailored to the appro priate length of 44 cm and advanced such that the distal tip is at the cavoatrial junction. Spot imag e was obtained verifying PICC placement. Catheter was fixed to the skin and a sterile dressing was pl aced following hemostasis. Catheter was aspirated and flushed with saline. Patient was discharged fro m the radiology department in stable condition without immediate complication. Fluoro time: 0.2 minutes Fluoroscopic images obtained: 6 IMPRESSION: Status post ultrasound-guided and fluoroscopic-guided PICC placement, ready for use.
== END ==
LOC: CATHCVL 11:38
PROVIDERS: ATTEND Radiology Diagnostic Radiology
DX: T84.54XA Infection and inflammatory reaction due to internal left knee prosthesis, initial encounter (principal); M25.562 Pain in left knee; F17.210 Nicotine dependence, cigarettes, uncomplicated; Z89.522 Acquired absence of left knee; Z79.01 Long term (current) use of anticoagulants; Z79.891 Long term (current) use of opiate analgesic; Z79.899 Other long term (current) drug therapy
CPT/HCPCS: 36573; C1751; C1769; J2001

== ENCOUNTER → 2020-01-09 | Outpatient (CLI) | payer MEDICARE ==
[~2020-01-09] MED LIST changes: +AMINOPHYLLINE 500 MG/20 ML VIAL IV ONE; -LIDOCAINE 1% INJ 10MG/ML (20 ML MDV) SQ ONE; +REGADENOSON 0.4 MG/5 ML SYRINGE IV ONE
--- NOTE | 2020-01-09 12:35 | NM ---
EXAMINATION TYPE: NM stress lexiscan cardiolite DATE OF EXAM: 01/09/2020 COMPARISON: 03/08/2014 HISTORY: Chest pain TECHNIQUE: After the intravenous administration of 10.18 mCi Tc 99m Sestamibi - Cardiolite resting S PECT images acquired 60 minutes post injection. The patient received 0.4mg Lexiscan, 24.5 mCi Tc 99m Sestamibi - Stress images obtained [address] injection FINDINGS: Review of stress and rest SPECT images demonstrates no distinct perfusion abnormality. Gated analysi s shows normal wall motion with an estimated left ventricular ejection fraction of 70 %. IMPRESSION: No scintigraphic evidence for reversible ischemia.
--- NOTE | 2020-01-10 14:12 | EST ---
EXERCISE STRESS DATE OF SERVICE: 01/10/2020 AGE: 59 SEX: M HT: 68" WT: 160 lbs PROTOCOL: Lexiscan Cardiolite STAGE: DURATION OF EXERCISE: HEART RATE REST: 92 BLOOD PRESSURE REST: 122/80 MAXIMUM HEART RATE ACHIEVED: 111 MAXIMUM BLOOD PRESSURE: 122/80 85% MPHR: 100% MPHR: METS: INDICATIONS: Chest pain. REFERRING PHYSICIAN: Dr. Hummel. STRESS DATA: Heart rate 92, pressure is 122/80 mmHg. Baseline EKG showed sinus mechanism. The patient was given 0.4 mg of Lexiscan over 15 seconds per protocol. Max heart rate was 111 beats per minute and maximum pressure was 122/80 mmHg. Clinically, the patient did not have any symptoms. The EKG did not show any changes compared to baseline. CONCLUSION: 1. Nondiagnostic electrocardiogram stress testing in response to Lexiscan. 2. Please follow up on the Cardiolite portion on a separate report from Radiology Department. MMODL / IJN: [id number] /
== END | disposition home or self-care (01) ==
LOC: RADNMMAIN 08:01
PROVIDERS: ATTEND Internal Medicine Interventional Cardiology
DX: Z01.810 Encounter for preprocedural cardiovascular examination (principal); Z88.6 Allergy status to analgesic agent
CPT/HCPCS: 93017; 78452; A9500; J0280; J2785

== ENCOUNTER 2020-01-18 08:50 | Emergency (ER) | payer MEDICARE, OTHER ==
[2020-01-18 08:59] VITALS: RESP 18
[2020-01-18] MEDS ORDERED: ONDANSETRON 4 MG/2 ML VIAL IVP STA (09:21)
[2020-01-18] MEDS ORDERED: SODIUM CHLORIDE 0.9% 1,000 ML IV STA (09:21)
[2020-01-18] MEDS ORDERED: PANTOPRAZOLE 40 MG/10 ML VIAL IVP STA (09:22)
--- NOTE | 2020-01-18 09:43 | ED ---
General Adult HPI - General Chief complaint: Nausea/Vomiting/Diarrhea Stated complaint: NVD Time Seen by Provider: 01/18/20 08:51 Source: patient, RN notes reviewed, old records reviewed Mode of arrival: EMS - History of Present Illness Initial comments: Patient is a 59-year-old male process returns today with 2 days of nausea and vomiting. Patient reports that he is a significant abdominal pain associated with nausea and vomiting. He reports not able to keep any of his food down for the past day. Patient does have a PICC line due to poor vascular ascess. . He states that he just needs nausea medication at home and feel better. He is not given anything by EMS prior to arrival. - Related Data Home Medications Medication Instructions Recorded Confirmed HYDROcodone/APAP 10-325MG [[place] 1 tab PO QID 10/10/19 01/18/20 10-325] busPIRone HCl [Buspar] 10 mg PO DIRECTED 10/10/19 01/18/20 Pantoprazole [Protonix] 40 mg PO DAILY 01/03/20 01/18/20 hydrOXYzine pamoate [hydrOXYzine 25 mg PO BID PRN 01/18/20 01/18/20 PAMOATE] Previous Rx's Medication Instructions Recorded Rivaroxaban [Xarelto] 20 mg PO DAILY #1 10/14/19 Ondansetron Odt [Zofran Odt] 4 mg PO Q8HR PRN #12 tab 01/18/20 Allergies Allergy/AdvReac Type Severity Reaction Status Date / Time tramadol Allergy Mild Rash/Hives Verified 01/08/20 12:11 Review of Systems ROS Statement: Those systems with pertinent positive or pertinent negative responses have been documented in the HPI. ROS Other: All systems not noted in ROS Statement are negative. Past Medical History Past Medical History: COPD, GERD/Reflux, Osteoarthritis (OA), Pneumonia, Pulmonary Embolus (PE), Respiratory Disorder, Seizure Disorder, Syncope Additional Past Medical History / Comment(s): acute upper GI bleed/acute blood loss anemia.Other hx: ETOH abuse, delirium tremors, last seizure many years ago, falls, rib fractures d/t falls, chronic hypoxic respiratory failure, home oxygen prn, diverticulosis, gastritis, ulcerative esophagitis, Borges's esophagus, bilateral pulmonary embolisms, L knee pain/unable to bend d/t rodding, SBO as a child/incarcerated R inguinal hernia, History of Any Multi-Drug Resistant Organisms: MRSA Date of last positivie culture/infection: 12/13/18 MDRO Source:: Knee Aspirate Past Surgical History: Appendectomy, Joint Replacement, Orthopedic Surgery, Tonsillectomy Additional Past Surgical History / Comment(s): Colonoscopies and polypectomies, EGD, 10/21/15 normal cardiac cath, multiple inguinal hernia surg., bilateral knee arthroscopies, bilateral knee arthroplasties, 8 surgeries on L knee-rodded, "had blood clots removed from lungs at [facility] Past Anesthesia/Blood Transfusion Reactions: No Reported Reaction Additional Past Anesthesia/Blood Transfusion Reaction / Comment(s): Pt has received blood in past without reactions. Past Psychological History: Anxiety, Depression Smoking Status: Current every day smoker Past Alcohol Use History: Abuse, Daily Past Drug Use History: None Reported - Past Family History Father Family Medical History: Coronary Artery Disease (CAD), Myocardial Infarction ( MT) Additional Family Medical History / Comment(s): Father of a MT at the age of 73 yrs. Mother Family Medical History: Cancer Additional Family Medical History / Comment(s): BREAST CA. Mother is living General Exam General appearance: alert, in no apparent distress Head exam: Present: atraumatic, normocephalic, normal inspection Eye exam: Present: normal appearance, PERRL, EOMI. Absent: scleral icterus, conjunctival injection, periorbital swelling ENT exam: Present: normal exam, mucous membranes moist Neck exam: Present: normal inspection. Absent: tenderness, meningismus, lymphadenopathy Respiratory exam: Present: normal lung sounds bilaterally. Absent: respiratory distress, wheezes, rales, rhonchi, stridor Cardiovascular Exam: Present: regular rate, normal rhythm, normal heart sounds. Absent: systolic murmur, diastolic murmur, rubs, gallop, clicks GI/Abdominal exam: Present: soft, normal bowel sounds. Absent: distended, tenderness, guarding, rebound, rigid Extremities exam: Present: normal inspection, full ROM, normal capillary refill. Absent: tenderness, pedal edema, joint swelling, calf tenderness Back exam: Present: normal inspection Neurological exam: Present: alert, oriented X3, CN II-XII intact Psychiatric exam: Present: normal affect, normal mood Skin exam: Present: warm, dry, intact, normal color. Absent: rash Course Vital Signs 01/18/20 08:53 Temperature 98 F Pulse Rate 98 Respiratory 18 Rate Blood Pressure 128/89 O2 Sat by Pulse 90 L Oximetry Medical Decision Making - Medical Decision Making 59-year-old male history of alcohol symptoms return today for nausea vomiting for the past day. Denies any abdominal pain. No tenderness. Is given IV fluids and Zofran. On reevaluation is feeling much better. Patient was advised to follow-up with primary care doctor. Agus has increased from previous. He states he feels well otherwise be discharged home. - Lab Data Result diagrams: 01/18/20 09:43 01/18/20 09:43 Lab Results 01/18/20 01/18/20 Range/Units 09:43 09:43 WBC 6.1 (3.8-10.6) k/uL RBC 3.53 L (4.30-5.90) m/uL Hgb 9.3 L (13.0-17.5) gm/dL Hct 31.7 L (39.0-53.0) % MCV 90.0 (80.0-100.0) fL MCH 26.3 (25.0-35.0) pg MCHC 29.2 L (31.0-37.0) g/dL RDW 20.2 H (11.5-15.5) % Plt Count 208 (150-450) k/uL Neutrophils % 66 % Lymphocytes % 16 % Monocytes % 12 % Eosinophils % 2 % Basophils % 1 % Neutrophils # 4.0 (1.3-7.7) k/uL Lymphocytes # 1.0 (1.0-4.8) k/uL Monocytes # 0.7 (0-1.0) k/uL Eosinophils # 0.1 (0-0.7) k/uL Basophils # 0.1 (0-0.2) k/uL Manual Slide Review Performed Hypochromasia Marked Poikilocytosis Slight Anisocytosis Moderate Sodium 134 L (137-145) mmol/L Potassium 3.5 (3.5-5.1) mmol/L Chloride 98 (98-107) mmol/L Carbon Dioxide 27 (22-30) mmol/L Anion Gap 9 mmol/L BUN 17 (9-20) mg/dL Creatinine 0.88 (0.66-1.25) mg/dL Est GFR (CKD-EPI)AfAm >90 (>60 ml/min/1.73 sqM) Est GFR (CKD-EPI)NonAf >90 (>60 ml/min/1.73 sqM) Glucose 98 (74-99) mg/dL Calcium 6.9 L (8.4-10.2) mg/dL Total Bilirubin 0.9 (0.2-1.3) mg/dL AST 30 (17-59) U/L ALT 8 (4-49) U/L Alkaline Phosphatase 151 H (38-126) U/L Total Protein 6.0 L (6.3-8.2) g/dL Albumin 3.1 L (3.5-5.0) g/dL Amylase 30 (30-110) U/L Lipase 94 (23-300) U/L Serum Alcohol <10 mg/dL Disposition Clinical Impression: Nausea & vomiting Disposition: HOME SELF-CARE Condition: Good Instructions (If sedation given, give patient instructions): Acute Nausea and Vomiting (ED) Additional Instructions: Please use medication as discussed. Please follow up with family doctor if symp toms have not improved over the next two days. Please return to the emergency room if your symptoms increase or worsen or for any other concerns. Prescriptions: Ondansetron Odt [Zofran Odt] 4 mg PO Q8HR PRN #12 tab PRN Reason: Nausea Is patient prescribed a controlled substance at d/c from ED?: No Referrals: Reggie Edward MD [Primary Care Provider] - 1-2 days Time of Disposition: 11:17
[2020-01-18] MEDS ORDERED: MORPHINE SULFATE 4 MG/ML SYRINGE IVP STA (10:05)
[2020-01-18 10:10] LABS: Anisocytosis Moderate; Basophils # (A) 0.1 k/uL (0-0.2); Basophils % (A) 1 %; Eosinophils # (A) 0.1 k/uL (0-0.7); Eosinophils % (A) 2 %; HCT 31.7 % (39.0-53.0); HGB 9.3 gm/dL (13.0-17.5); Hypochromasia Marked; Lymphocytes % (A) 16 %; MCH 26.3 pg (25.0-35.0); MCHC 29.2 g/dL (31.0-37.0); Mean Platelet Volume 8.1; Monocytes # (A) 0.7 k/uL (0-1.0); Monocytes % (A) 12 %; Neutrophils % (A) 66 %; Platelet Count 208 k/uL (150-450); Poikilocytosis Slight; RBC 3.53 m/uL (4.30-5.90); RDW 20.2 % (11.5-15.5); WBC 6.1 k/uL (3.8-10.6)
[2020-01-18 10:12] LABS: ALT 8 U/L (4-49); AST 30 U/L (17-59); African American GFR (CKD) >90 (>60 ml/min/1.73 sqM); Albumin 3.1 g/dL (3.5-5.0); Alcohol <10 mg/dL; Alkaline Phosphatase 151 U/L (38-126); Amylase 30 U/L (30-110); Anion Gap 9 mmol/L; Blood Urea Nitrogen 17 mg/dL (9-20); Calcium 6.9 mg/dL (8.4-10.2); Carbon Dioxide 27 mmol/L (22-30); Chloride 98 mmol/L (98-107); Glucose 98 mg/dL (74-99); Non-African American GFR(CKD) >90 (>60 ml/min/1.73 sqM); Potassium 3.5 mmol/L (3.5-5.1); Sodium 134 mmol/L (137-145); Total Bilirubin 0.9 mg/dL (0.2-1.3)
[2020-01-18] MEDS ORDERED: LORazepam 2 MG/ML INJ IV STA (10:23)
[2020-01-18] MEDS ORDERED: HYDROcodone/APAP 5-325MG 1 EACH TAB PO STA (10:23)
[2020-01-18] MEDS ORDERED: SODIUM CHLORIDE 0.9% 1,000 ML IV SCH (10:45)
[2020-01-18 11:16] LABS: Appearance,Urine Clear (Clear); Bilirubin,Urine Negative (Negative); Blood,Urine Negative (Negative); Color,Urine Yellow; Glucose,Urine (UA) Negative (Negative); Ketones,Urine Negative (Negative); Leukocyte Esterase,Urine Negative (Negative); Nitrite,Urine Negative (Negative); Protein,Urine Trace (Negative); Specific Gravity,Urine 1.013 (1.001-1.035); Urobilinogen,Urine <2.0 mg/dL (<2.0)
[2020-01-18] MEDS ORDERED: ONDANSETRON 4 MG ODT STARTER PACK 2 TAB BTL PO STA (11:31)
[2020-01-18 11:47] VITALS: BP 143/95; PULSE 97; TEMP 97.6
== END 2020-01-18 11:50 | disposition home or self-care (01) ==
LOC: EC 08:50
DX: R11.2 Nausea with vomiting, unspecified (principal); R10.9 Unspecified abdominal pain; K21.9 Gastro-esophageal reflux disease without esophagitis; F41.9 Anxiety disorder, unspecified; F32.9 Major depressive disorder, single episode, unspecified; M19.90 Unspecified osteoarthritis, unspecified site; J96.11 Chronic respiratory failure with hypoxia; F17.200 Nicotine dependence, unspecified, uncomplicated; Z79.891 Long term (current) use of opiate analgesic; Z88.5 Allergy status to narcotic agent; Z86.711 Personal history of pulmonary embolism; Z96.653 Presence of artificial knee joint, bilateral; Z79.899 Other long term (current) drug therapy; Z99.81 Dependence on supplemental oxygen; Z87.19 Personal history of other diseases of the digestive system; Z86.14 Personal history of Methicillin resistant Staphylococcus aureus infection
CPT/HCPCS: 36415; 80053; 82150; 83690; 85025; 81003; 99284; 96374; 96375 ×2; 96361 ×2; G0480; J2060; J2405; S0119; C9113; 80320

== ENCOUNTER 2020-01-29 17:29 | Observation (INO) | payer MEDICARE ==
[2020-01-29] MEDS ORDERED: HYDROcodone/APAP 5-325MG 1 EACH TAB PO STA (17:49)
[2020-01-29] MEDS ORDERED: SODIUM CHLORIDE 0.9% 500 ML 500 ML IV STA (17:49)
[2020-01-29 18:27] LABS: Appearance,Urine Clear (Clear); Bilirubin,Urine 1+ (Negative); Blood,Urine Negative (Negative); Color,Urine Yellow; Glucose,Urine (UA) Negative (Negative); Ketones,Urine Negative (Negative); Leukocyte Esterase,Urine Negative (Negative); Nitrite,Urine Negative (Negative); PH, Urine 6.5 (5.0-8.0); Protein,Urine Trace (Negative); Specific Gravity,Urine 1.009 (1.001-1.035); Urobilinogen,Urine <2.0 mg/dL (<2.0)
[2020-01-29 18:31] LABS: Anisocytosis Moderate; Basophils # (A) 0.1 k/uL (0-0.2); Basophils % (A) 2 %; Eosinophils # (A) 0.1 k/uL (0-0.7); Eosinophils % (A) 1 %; HCT 33.9 % (39.0-53.0); HGB 9.4 gm/dL (13.0-17.5); Hypochromasia Marked; Lymphocytes # (A) 0.9 k/uL (1.0-4.8); Lymphocytes % (A) 11 %; MCH 24.5 pg (25.0-35.0); MCHC 27.7 g/dL (31.0-37.0); MCV 88.6 fL (80.0-100.0); Mean Platelet Volume 6.8; Monocytes # (A) 0.6 k/uL (0-1.0); Monocytes % (A) 8 %; Neutrophils # (A) 5.9 k/uL (1.3-7.7); Neutrophils % (A) 75 %; Platelet Count 278 k/uL (150-450); Poikilocytosis Slight; RBC 3.82 m/uL (4.30-5.90); RDW 20.4 % (11.5-15.5); WBC 7.9 k/uL (3.8-10.6)
[2020-01-29 18:37] LABS: INR 1.1 (<1.2); Partial Thromboplastin Time 28.2 sec (22.0-30.0); Prothrombin Time 11.5 sec (9.0-12.0)
[2020-01-29 18:38] LABS: ALT 77 U/L (4-49); AST 245 U/L (17-59); African American GFR (CKD) >90 (>60 ml/min/1.73 sqM); Albumin 2.5 g/dL (3.5-5.0); Alkaline Phosphatase 548 U/L (38-126); Anion Gap 12 mmol/L; Blood Urea Nitrogen 5 mg/dL (9-20); Calcium 6.8 mg/dL (8.4-10.2); Carbon Dioxide 24 mmol/L (22-30); Chloride 100 mmol/L (98-107); Creatine Kinase 27 U/L (55-170); Glucose 99 mg/dL (74-99); Magnesium 1.4 mg/dL (1.6-2.3); Non-African American GFR(CKD) >90 (>60 ml/min/1.73 sqM); Potassium 3.2 mmol/L (3.5-5.1); Sodium 136 mmol/L (137-145); Total Bilirubin 1.7 mg/dL (0.2-1.3); Total Protein 5.3 g/dL (6.3-8.2)
--- NOTE | 2020-01-29 18:40 | ED ---
General Adult HPI - General Chief complaint: Fever Stated complaint: fever Time Seen by Provider: 01/29/20 17:37 Source: patient, EMS, RN notes reviewed, old records reviewed Mode of arrival: EMS - History of Present Illness Initial comments: 60-year-old male presenting for evaluation of feeling well, generalized weakness and fatigue. He states this has been ongoing for the past one day. He denies cough or dyspnea. Denies sore throat. Denies chest pain. Denies abdominal pain nausea vomiting. Denies dysuria or hematuria. He does complain of left leg pain which is chronic. He's had multiple orthopedic surgeries. He currently has an indwelling PICC line which was placed secondary to difficult IV access. - Related Data Home Medications Medication Instructions Recorded Confirmed HYDROcodone/APAP 10-325MG [[place] 1 tab PO QID 10/10/19 01/18/20 10-325] busPIRone HCl [Buspar] 10 mg PO DIRECTED 10/10/19 01/18/20 Pantoprazole [Protonix] 40 mg PO DAILY 01/03/20 01/18/20 hydrOXYzine pamoate [hydrOXYzine 25 mg PO BID PRN 01/18/20 01/18/20 PAMOATE] Previous Rx's Medication Instructions Recorded Rivaroxaban [Xarelto] 20 mg PO DAILY #1 10/14/19 Ondansetron Odt [Zofran Odt] 4 mg PO Q8HR PRN #12 tab 01/18/20 Allergies Allergy/AdvReac Type Severity Reaction Status Date / Time tramadol Allergy Mild Rash/Hives Verified 01/29/20 17:36 Review of Systems ROS Statement: Those systems with pertinent positive or pertinent negative responses have been documented in the HPI. ROS Other: All systems not noted in ROS Statement are negative. Past Medical History Past Medical History: COPD, GERD/Reflux, Osteoarthritis (OA), Pneumonia, Pulmonary Embolus (PE), Respiratory Disorder, Seizure Disorder, Syncope Additional Past Medical History / Comment(s): acute upper GI bleed/acute blood loss anemia.Other hx: ETOH abuse, delirium tremors, last seizure many years ago, falls, rib fractures d/t falls, chronic hypoxic respiratory failure, home oxygen prn, diverticulosis, gastritis, ulcerative esophagitis, Borges's eso phagus, bilateral pulmonary embolisms, L knee pain/unable to bend d/t rodding, SBO as a child/incarcerated R inguinal hernia, History of Any Multi-Drug Resistant Organisms: MRSA Date of last positivie culture/infection: 12/13/18 MDRO Source:: Knee Aspirate Past Surgical History: Appendectomy, Joint Replacement, Orthopedic Surgery, Tonsillectomy Additional Past Surgical History / Comment(s): Colonoscopies and polypectomies, EGD, 10/21/15 normal cardiac cath, multiple inguinal hernia surg., bilateral knee arthroscopies, bilateral knee arthroplasties, 8 surgeries on L knee-rodded, "had blood clots removed from lungs at [facility] Past Anesthesia/Blood Transfusion Reactions: No Reported Reaction Additional Past Anesthesia/Blood Transfusion Reaction / Comment(s): Pt has received blood in past without reactions. Past Psychological History: Anxiety, Depression Smoking Status: Current every day smoker Past Alcohol Use History: Abuse, Daily Past Drug Use History: None Reported - Past Family History Father Family Medical History: Coronary Artery Disease (CAD), Myocardial Infarction (IN) Additional Family Medical History / Comment(s): Father of a IN at the age of 73 yrs. Mother Family Medical History: Cancer Additional Family Medical History / Comment(s): BREAST CA. Mother is living General Exam General appearance: alert, in no apparent distress, appears intoxicated Head exam: Present: atraumatic, normocephalic Eye exam: Present: normal appearance. Absent: PERRL, EOMI ENT exam: Present: mucous membranes dry Neck exam: Present: normal inspection Respiratory exam: Present: normal lung sounds bilaterally. Absent: respiratory distress, wheezes Cardiovascular Exam: Present: regular rate, normal rhythm GI/Abdominal exam: Present: soft. Absent: distended, tenderness, guarding, rebound Extremities exam: Present: other (Erythema, induration of the left leg, patient states this is chronic) Neurological exam: Present: alert, oriented X3, CN II-XII intact. Absent: motor sensory deficit Skin exam: Present: warm, dry, intact. Absent: cyanosis, diaphoretic Course Vital Signs 01/29/20 17:30 Temperature 99.0 F Pulse Rate 110 H Respiratory 16 Rate Blood Pressure 102/78 O2 Sat by Pulse 94 L Oximetry EKG Findings - EKG Comments: EKG Findings:: EKG: Normal sinus rhythm, rightward axis, pulmonary disease pattern, incomplete right bundle, rate of 98, MS interval 146, QRS duration 96, QTC 492, no ST segment elevation, no change compared to previous EKG one month ago. Medical Decision Making - Medical Decision Making 60-year-old male presenting with chief complaint of not feeling well, he is intoxicated, alcohol is 260. He has a chest x-ray concerning for atypical pneumonia. Given the history of fever of 101 by EMS he will be treated with azithromycin and ceftriaxone. Additionally he has some anemia which is stable at 9.4. Lactic acid of 2.3. Potassium 3.2, magnesium 1.5. He has a transaminitis and hyperbilirubinemia. Ultrasound showing some gallbladder wall thickening with no other acute findings. I suspect this is related more to alcohol abuse rather than acute gallbladder or liver infection. Case discussed with Dr. Edward, will admit. - Lab Data Result diagrams: 01/29/20 18:09 01/29/20 18:09 Lab Results 01/29/20 01/29/20 01/29/20 Range/Units 18:09 18:09 18:09 WBC 7.9 (3.8-10.6) k/uL RBC 3.82 L (4.30-5.90) m/uL Hgb 9.4 L (13.0-17.5) gm/dL Hct 33.9 L (39.0-53.0) % MCV 88.6 (80.0-100.0) fL MCH 24.5 L (25.0-35.0) pg MCHC 27.7 L (31.0-37.0) g/dL RDW 20.4 H (11.5-15.5) % Plt Count 278 (150-450) k/uL Neutrophils % 75 % Lymphocytes % 11 % Monocytes % 8 % Eosinophils % 1 % Basophils % 2 % Neutrophils # 5.9 (1.3-7.7) k/uL Lymphocytes # 0.9 L (1.0-4.8) k/uL Monocytes # 0.6 (0-1.0) k/uL Eosinophils # 0.1 (0-0.7) k/uL Basophils # 0.1 (0-0.2) k/uL Hypochromasia Marked Poikilocytosis Slight Anisocytosis Moderate PT 11.5 (9.0-12.0) sec INR 1.1 (<1.2) APTT 28.2 (22.0-30.0) sec Sodium (137-145) mmol/L Potassium (3.5-5.1) mmol/L Chloride (98-107) mmol/L Carbon Dioxide (22-30) mmol/L Anion Gap mmol/L BUN (9-20) mg/dL Creatinine (0.66-1.25) mg/dL Est GFR (CKD-EPI)AfAm (>60 ml/min/1.73 sqM) Est GFR (CKD-EPI)NonAf (>60 ml/min/1.73 sqM) Glucose (74-99) mg/dL Lactic Ac Sepsis Rflx Plasma Lactic Acid Chet (0.7-2.0) mmol/L Calcium (8.4-10.2) mg/dL Magnesium (1.6-2.3) mg/dL Total Bilirubin (0.2-1.3) mg/dL AST (17-59) U/L ALT (4-49) U/L Alkaline Phosphatase (38-126) U/L Creatine Kinase (55-170) U/L Total Protein (6.3-8.2) g/dL Albumin (3.5-5.0) g/dL Urine Color Yellow Urine Appearance Clear (Clear) Urine pH 6.5 (5.0-8.0) Ur Specific [place] 1.009 (1.001-1.035) Urine Protein Trace H (Negative) Urine Glucose (UA) Negative (Negative) Urine Ketones Negative (Negative) Urine Blood Negative (Negative) Urine Nitrite Negative (Negative) Urine Bilirubin 1+ H (Negative) Urine Urobilinogen <2.0 (<2.0) mg/dL Ur Leukocyte Esterase Negative (Negative) Serum Alcohol mg/dL 01/29/20 01/29/20 01/29/20 Range/Units 18:09 18:09 18:44 WBC (3.8-10.6) k/uL RBC (4.30-5.90) m/uL Hgb (13.0-17.5) gm/dL Hct (39.0-53.0) % MCV (80.0-100.0) fL MCH (25.0-35.0) pg MCHC (31.0-37.0) g/dL RDW (11.5-15.5) % Plt Count (150-450) k/uL Neutrophils % % Lymphocytes % % Monocytes % % Eosinophils % % Basophils % % Neutrophils # (1.3-7.7) k/uL Lymphocytes # (1.0-4.8) k/uL Monocytes # (0-1.0) k/uL Eosinophils # (0-0.7) k/uL Basophils # (0-0.2) k/uL Hypochromasia Poikilocytosis Anisocytosis PT (9.0-12.0) sec INR (<1.2) APTT (22.0-30.0) sec Sodium 136 L (137-145) mmol/L Potassium 3.2 L (3.5-5.1) mmol/L Chloride 100 (98-107) mmol/L Carbon Dioxide 24 (22-30) mmol/L Anion Gap 12 mmol/L BUN 5 L (9-20) mg/dL Creatinine 0.81 (0.66-1.25) mg/dL Est GFR (CKD-EPI)AfAm >90 (>60 ml/min/1.73 sqM) Est GFR (CKD-EPI)NonAf >90 (>60 ml/min/1.73 sqM) Glucose 99 (74-99) mg/dL Lactic Ac Sepsis Rflx Y Plasma Lactic Acid Chet 2.3 H* (0.7-2.0) mmol/L Calcium 6.8 L (8.4-10.2) mg/dL Magnesium 1.4 L (1.6-2.3) mg/dL Total Bilirubin 1.7 H (0.2-1.3) mg/dL AST 245 H (17-59) U/L ALT 77 H (4-49) U/L Alkaline Phosphatase 548 H (38-126) U/L Creatine Kinase 27 L (55-170) U/L Total Protein 5.3 L (6.3-8.2) g/dL Albumin 2.5 L (3.5-5.0) g/dL Urine Color Urine Appearance (Clear) Urine pH (5.0-8.0) Ur Specific [place] (1.001-1.035) Urine Protein (Negative) Urine Glucose (UA) (Negative) Urine Ketones (Negative) Urine Blood (Negative) Urine Nitrite (Negative) Urine Bilirubin (Negative) Urine Urobilinogen (<2.0) mg/dL Ur Leukocyte Esterase (Negative) Serum Alcohol 265 H* mg/dL Disposition Clinical Impression: Dehydration, Hypokalemia, Alcohol withdrawal syndrome, ETOH abuse Disposition: ADMITTED IP TO THIS HOSP Condition: Stable Is patient prescribed a controlled substance at d/c from ED?: No Referrals: Reggie Edward MD [Primary Care Provider] - 1-2 days Decision to Admit Reason: Admit from EC Decision Date: 01/29/20 Decision Time: 21:06
[2020-01-29 18:44] LABS: Alcohol 265 mg/dL
--- NOTE | 2020-01-29 19:09 | XR ---
EXAMINATION TYPE: XR chest 2V DATE OF EXAM: 01/29/2020 COMPARISON: 01/01/2020 HISTORY: 60-year-old male with weakness and fever TECHNIQUE: AP and lateral views FINDINGS: Heart borderline enlarged. Diffuse interstitial opacity. Leftward patient rotation. Either subacute t o chronic ununited fractures of left posterolateral lower rib. No nina consolidation or pleural effu noe. Lateral view suggests some fine reticular densities. IMPRESSION: 1. Borderline heart size. 2. Diffuse fine interstitial change. Correlate for atypical pneumonias or interstitial pneumonitis. 3. Subacute versus chronic ununited fracture of the left posterolateral eighth rib.
--- NOTE | 2020-01-29 20:10 | US ---
EXAMINATION TYPE: US gallbladder DATE OF EXAM: 01/29/2020 COMPARISON: NONE CLINICAL HISTORY: 60-year-old male fever . Pain TECHNIQUE: Multiple sonographic images of the right upper quadrant are obtained. FINDINGS: EXAM MEASUREMENTS: Liver Length: 12 cm Gallbladder Wall: 3.5 mm CBD: .4 cm Right Kidney: 9.8 x 4.4 x 4.1 cm Pancreas: Obscured by bowel gas Liver: wnl Gallbladder: Mild wall thickening but no hydropic change, surrounding fluid, or shadowing calculi. Evidence for sonographic Laird's sign: No CBD: wnl Right Kidney: wnl IMPRESSION: 1. Mild nonspecific gallbladder wall thickening. Findings could reflect fluid overload state or could be reactive to some type of adjacent inflammation. If clinical concern for chronic cholecystitis, HI DA scan can be performed. No gallstones, hydropic change, surrounding fluid, or sonographic Laird si gn to indicate acute cholecystitis. 2. No biliary ductal dilatation. 3. Suboptimal visualization of the pancreas.
[2020-01-29] MEDS ORDERED: POTASSIUM CHLORIDE ER 20 MEQ TAB.ER PO STA (21:00)
[2020-01-29] MEDS ORDERED: NALOXONE 0.4 MG/ML 1 ML VIAL IV PRN (21:00)
[2020-01-29] MEDS ORDERED: AZITHROMYCIN 500 MG in SODIUM CHLORIDE 0.9% 250 ML IVPB STA (21:00)
[2020-01-29] MEDS ORDERED: cefTRIAXone IN SWFI 1,000 MG/10 ML SYRINGE IVP STA (21:00)
[2020-01-29] MEDS ORDERED: THIAMINE 100 MG/ML 2 ML VIAL IM STA (21:03)
[2020-01-29] MEDS ORDERED: LORazepam 2 MG/ML INJ IV PRN ×2 (21:03)
[2020-01-29] MEDS: 0.9% NACL WITH KCL 20 MEQ/L 1,000 ML IV SCH (23:08)
[2020-01-29] MEDS: HYDROcodone/APAP 5-325MG 1 EACH TAB PO PRN (23:19)
[2020-01-29] MEDS: THIAMINE 100 MG TAB PO SCH (23:22)
[2020-01-30] MEDS: ONDANSETRON 4 MG/2 ML VIAL IVP PRN ×4 (00:34→23:06)
[2020-01-30] MEDS: MAGNESIUM SULFATE-D5W PMX 1 GM in DEXTROSE/WATER 1 100ML.BAG IVPB SCH ×2 (00:34→02:09)
[2020-01-30] MEDS: busPIRone HCl 10 MG TAB PO SCH ×3 (00:34→20:22)
[2020-01-30] MEDS: HYDROcodone/APAP 5-325MG 1 EACH TAB PO PRN ×2 (03:43→08:36)
[2020-01-30] MEDS: THIAMINE 100 MG TAB PO SCH ×2 (08:22→16:26)
[2020-01-30] MEDS ORDERED: DIPHENOX-ATROP 2.5-0.025 MG 1 EACH TAB PO PRN (10:40)
[2020-01-30] MEDS: RIVAROXABAN 20 MG TAB PO SCH (11:09)
[2020-01-30] MEDS: HYDROcodone/APAP 10-325MG 1 EACH TAB PO PRN ×2 (12:40→22:17)
[2020-01-30] MEDS: NICOTINE 21MG/24HR PATCH TRANSDERM SCH (13:53)
[2020-01-30] MEDS ORDERED: LORazepam 0.5 MG TAB PO STA (14:00)
[2020-01-30] MEDS: SERTRALINE 25 MG TAB PO SCH (15:58)
[2020-01-30] MEDS: LORazepam 2 MG/ML INJ IV PRN (16:10)
[2020-01-30] MEDS ORDERED: PANTOPRAZOLE 40 MG TABLET PO STA (16:26)
[2020-01-30] MEDS: 0.9% NACL WITH KCL 20 MEQ/L 1,000 ML IV SCH (16:30)
[2020-01-30] MEDS ORDERED: AZITHROMYCIN 250 MG TAB PO SCH (21:00)
--- NOTE | 2020-01-30 23:15 | P.HPIM ---
History of Present Illness H&P Date: 01/29/20 Chief Complaint: malaise, nausea, vomiting Addy Villalpando is a 59 yo M with PMH of L knee septic arthritis s/p multiple revision surgeries and subsequent chronic knee pain, alcohol and tobacco abuse, hx PE, hx GIB who presented to the ED complaining of generalized malaise and weakness as well as vomiting. He has continued to drink beer throughout the day while awaiting his upcoming appointment with Orthopedic surgery to remove the nacho in his L knee. He had been vomiting fairly frequently and has been increasingly weak. On presentation P 110, T 99, WBC 7.9, procalcitonin 0.5. CXR with interstitial prominence. Review of Systems All systems: negative Constitutional: Reports fatigue, Reports malaise, Reports weakness, Denies chills, Denies fever Eyes: denies blurred vision, denies pain Ears, nose, mouth and throat: Denies headache, Denies sore throat Cardiovascular: Denies chest pain, Denies shortness of breath Respiratory: Denies cough Gastrointestinal: Denies abdominal pain, Denies diarrhea, Denies nausea, Denies vomiting Musculoskeletal: Denies myalgias Integumentary: Denies pruritus, Denies rash Neurological: Denies numbness, Denies weakness Psychiatric: Denies anxiety, Denies depression Endocrine: Denies fatigue, Denies weight change Past Medical History Past Medical History: COPD, GERD/Reflux, Osteoarthritis (OA), Pneumonia, Pulmonary Embolus (PE), Respiratory Disorder, Seizure Disorder, Syncope Additional Past Medical History / Comment(s): acute upper GI bleed/acute blood loss anemia.Other hx: ETOH abuse, delirium tremors, last seizure many years ago, falls, rib fractures d/t falls, chronic hypoxic respiratory failure, home oxygen prn, diverticulosis, gastritis, ulcerative esophagitis, Borges's esophagus, bilateral pulmonary embolisms, L knee pain/unable to bend d/t rodding, SBO as a child/incarcerated R inguinal hernia, History of Any Multi-Drug Resistant Organisms: MRSA Date of last positivie culture/infection: 12/13/18 MDRO Source:: Knee Aspirate Past Surgical History: Appendectomy, Joint Replacement, Orthopedic Surgery, Tonsillectomy Additional Past Surgical History / Comment(s): Colonoscopies and polypectomies, EGD, 10/21/15 normal cardiac cath, multiple inguinal hernia surg., bilateral knee arthroscopies, bilateral knee arthroplasties, 8 surgeries on L knee-rodded, "had blood clots removed from lungs at [facility] Past Anesthesia/Blood Transfusion Reactions: No Reported Reaction Additional Past Anesthesia/Blood Transfusion Reaction / Comment(s): Pt has received blood in past without reactions. Past Psychological History: Anxiety, Depression Additional Psychological History / Comment(s): Pt resides alone. He has home oxygen that he uses "very rarely" Smoking Status: Current every day smoker Past Alcohol Use History: Abuse, Daily Additional Past Alcohol Use History / Comment(s): Patient is a smoker of 2 pack of cigarettes per day. He does have history of heavy alcohol use. He drinks 3-4 beers a day. Past Drug Use History: None Reported Additional Drug Use History / Comment(s): Pt states in the past he had used cocaine but none for 20 years. He denies ever abusing prescription drugs. - Past Family History Father Family Medical History: Coronary Artery Disease (CAD), Myocardial Infarction (SD) Additional Family Medical History / Comment(s): Father of a SD at the age of 73 yrs. Mother Family Medical History: Cancer Additional Family Medical History / Comment(s): BREAST CA. Mother is living Medications and Allergies Home Medications Medication Instructions Recorded Confirmed Type HYDROcodone/APAP 10-325MG [[place] 1 tab PO QID PRN 10/10/19 01/29/20 History 10-325] busPIRone HCl [Buspar] 10 mg PO BID 10/10/19 01/29/20 History Rivaroxaban [Xarelto] 20 mg PO DAILY #1 10/14/19 01/29/20 Rx Pantoprazole [Protonix] 40 mg PO DAILY 01/03/20 01/29/20 History Multivitamins, Thera [Multivitamin 1 tab PO DAILY 01/29/20 01/29/20 History (formulary)] Ondansetron [Zofran] 4 mg PO Q8HR PRN 01/29/20 01/29/20 History Potassium Chloride [Klor-Con 20] 20 meq PO DAILY 01/29/20 01/29/20 History Thiamine [Vitamin B-1] 100 mg PO DAILY 01/29/20 01/29/20 History Allergies Allergy/AdvReac Type Severity Reaction Status Date / Time tramadol Allergy Mild Rash/Hives Verified 01/29/20 22:11 Physical Exam Vitals: Vital Signs Temp Pulse Resp BP Pulse Ox 01/30/20 19:43 98.7 F 96 14 122/86 97 01/30/20 15:10 97.5 F L 95 16 133/88 94 L 01/30/20 07:00 97.4 F L 99 16 137/81 95 01/29/20 23:33 98.3 F 102 H 14 115/79 97 Intake and Output 01/30/20 01/30/20 01/31/20 14:59 22:59 06:59 Output Total 125 Balance -125 Output: Urine 125 Other: # Bowel Movements 6 4 General: well nourished, well developed, NAD. Vitals reviewed Eyes: PERRL, EOMI, conjunctiva normal HENT: normocephalic, mucus membranes moist Neck: supple, no JVD Lungs: normal respiratory effort, no wheezes or rales CV: Regular rate and rhythm, no murmur. Peripheral pulses 2+ Abdomen: soft, nondistended, no organomegaly Lymph: no cervical or axillary LAD Skin: warm and dry. L knee tender to palpation Neuro: A&Ox3, normal mood and affect Results CBC & Chem 7: 01/29/20 18:09 01/29/20 18:09 Labs: Abnormal Lab Results - Last 24 Hours (Table) 01/30/20 01/30/20 01/30/20 Range/Units 01:37 05:00 05:44 Plasma Lactic Acid Chet 2.9 H* 3.2 H* (0.7-2.0) mmol/L Procalcitonin 0.45 H (0.02-0.09) ng/mL Microbiology - Last 24 Hours (Table) 01/29/20 18:09 Blood Culture - Preliminary Blood No Growth after 24 hours 01/30/20 08:20 Stool Culture - Preliminary Stool Thrombosis Risk Factor Assmnt - Choose All That Apply Each Factor Represents 1 point: Age 41-60 years, Medical pt on bed rest Thrombosis Risk Factor Assessment Total Risk Factor Score: 2 Thrombosis Risk Factor Assessment Level: Low Risk Assessment and Plan (1) Sepsis Current Visit: Yes Status: Acute Code(s): A41.9 - SEPSIS, UNSPECIFIED ORGANISM SNOMED Code(s): 97726577 (2) ETOH abuse Current Visit: Yes Status: Acute Code(s): F10.10 - ALCOHOL ABUSE, UNCOMPLICATED SNOMED Code(s): 42487948 (3) Withdrawal symptoms, alcohol Current Visit: Yes Status: Acute Code(s): F10.239 - ALCOHOL DEPENDENCE WITH WITHDRAWAL, UNSPECIFIED SNOMED Code(s): 806557284 (4) Acute anxiety Current Visit: No Status: Acute Code(s): F41.9 - ANXIETY DISORDER, UNSPECI FIED SNOMED Code(s): 09943805 (5) Cirrhosis Current Visit: Yes Status: Acute Code(s): K74.60 - UNSPECIFIED CIRRHOSIS OF LIVER SNOMED Code(s): 07414876 Plan: 1. Sepsis due to pneumonia. Follow blood cultures. Continue rocephin and azithromycin 2. Alcohol withdrawal. CIWA protocol 3. Anxiety. Start zoloft, continue buspar 4. Cirrhosis 5. Alcohol abuse 6. Hx PE. continue xarelto 7. Chronic L knee pain. Continue home [place]. Consider lowering dose with polysubstance use
[2020-01-31] MEDS: LORazepam 2 MG/ML INJ IV PRN (00:11)
[2020-01-31 02:14] VITALS: RESP 18
[2020-01-31] MEDS: HYDROcodone/APAP 10-325MG 1 EACH TAB PO PRN (04:30)
[2020-01-31 07:27] VITALS: BP 128/88; PULSE 108; TEMP 97.4
[2020-01-31] MEDS ORDERED: PANTOPRAZOLE 40 MG TABLET PO SCH (07:30)
[2020-01-31] MEDS: SERTRALINE 25 MG TAB PO SCH (07:56)
[2020-01-31] MEDS: THIAMINE 100 MG TAB PO SCH (07:57)
[2020-01-31] MEDS: busPIRone HCl 10 MG TAB PO SCH (07:57)
[2020-01-31] MEDS: RIVAROXABAN 20 MG TAB PO SCH (07:57)
[2020-01-31] MEDS: NICOTINE 21MG/24HR PATCH TRANSDERM SCH (07:57)
[2020-01-31] MEDS ORDERED: POTASSIUM CHLORIDE ER 20 MEQ TAB.ER PO STA (10:01)
[2020-01-31] MEDS ORDERED: MAGNESIUM OXIDE 400 MG TAB PO SCH (10:15)
--- NOTE | 2020-01-31 10:20 | P.DS ---
Providers Date of admission: 01/29/20 21:03 Expected date of discharge: 01/31/20 Attending physician: Reggie Edward MD Primary care physician: Reggie Edward MD Hospital Course: Final Diagnoses: (1) Sepsis secondary to pneumonia Current Visit: Yes Status: Acute Code(s): A41.9 - SEPSIS, UNSPECIFIED ORGANISM SNOMED Code(s): 77376374 (2) ETOH abuse Current Visit: Yes Status: Acute Code(s): F10.10 - ALCOHOL ABUSE, UNCOMPLIC ATED SNOMED Code(s): 60431367 (3) Withdrawal symptoms, alcohol Current Visit: Yes Status: Acute Code(s): F10.239 - ALCOHOL DEPENDENCE WITH WITHDRAWAL, UNSPECIFIED SNOMED Code(s): 231948957 (4) Acute anxiety, Zoloft initiated Current Visit: No Status: Acute Code(s): F41.9 - ANXIETY DISORDER, UNSPECIFIED SNOMED Code(s): 64844840 (5) Cirrhosis Current Visit: Yes Status: Acute Code(s): K74.60 - UNSPECIFIED CIRRHOSIS OF LIVER SNOMED Code(s): 14944900 (6) history of PE, on [facility] course:Chief Complaint: malaise, nausea, vomiting Addy Villalpando is a 59 yo M with PMH of L knee septic arthritis s/p multiple revision surgeries and subsequent chronic knee pain, alcohol and tobacco abuse, hx PE, hx GIB who presented to the ED complaining of generalized malaise and weakness as well as vomiting. He has continued to drink beer throughout the day while awaiting his upcoming appointment with Orthopedic surgery to remove the nacho in his L knee. He had been vomiting fairly frequently and has been increasingly weak. On presentation P 110, T 99, WBC 7.9, procalcitonin 0.5. CXR with interstitial prominence. Maintained on IV antibiotics, afebrile. Blood and stool cultures pending. No nausea, vomiting, or diarrhea this morning. No shakiness. Denies chest pain, palpitations or shortness of breath. No cough. Insistent on being discharged today. Recommended 1 more day of IV antibiotic therapy. Patient states his 85-year-old mother is having a nervous breakdown, regarding having to get coronavirus testing. Patient states unable to calm her down over the phone and must leave. Patient will be discharged home today in stable condition with care prognosis on both Augmentin and Zithromax. Stool and blood culture results to be faxed to PCPs office. Patient to follow-up with PCP in 2 days. Microbiology 01/29/20 18:09 Blood Blood Culture - Preliminary No Growth after 24 hours 01/30/20 08:20 Stool Stool Culture - Preliminary The impression and plan of care has been dictated as directed. : I performed a history and examination of this patient, discussed the same with the dictator. I agree with the dictator's note ,documented as a scribe. Any additional findings or plans will be noted. Patient Condition at Discharge: Stable Plan - Discharge Summary New Discharge Prescriptions: New Amoxic-Pot Clav 875-125Mg [Augmentin 875-125] 1 tab PO Q12HR 3 Days #6 tab Azithromycin [Zithromax] 500 mg PO DAILY 3 Days #3 tab Nicotine 21Mg/24Hr Patch [Habitrol] 1 patch TRANSDERM DAILY #30 patch Sertraline [Zoloft] 12.5 mg PO DAILY #30 tab Magnesium Oxide [Mag-Ox] 400 mg PO BID #20 tablet Continue busPIRone HCl [Buspar] 10 mg PO BID HYDROcodone/APAP 10-325MG [[place] 10-325] 1 tab PO QID PRN PRN Reason: pain Rivaroxaban [Xarelto] 20 mg PO DAILY #1 Pantoprazole [Protonix] 40 mg PO DAILY Ondansetron [Zofran] 4 mg PO Q8HR PRN PRN Reason: Nausea Thiamine [Vitamin B-1] 100 mg PO DAILY Multivitamins, Thera [Multivitamin (formulary)] 1 tab PO DAILY Potassium Chloride [Klor-Con 20] 20 meq PO DAILY Discharge Medication List HYDROcodone/APAP 10-325MG [[place] 10-325] 1 tab PO QID PRN 10/10/19 [History] busPIRone HCl [Buspar] 10 mg PO BID 10/10/19 [History] Rivaroxaban [Xarelto] 20 mg PO DAILY #1 10/14/19 [Rx] Pantoprazole [Protonix] 40 mg PO DAILY 01/03/20 [History] Multivitamins, Thera [Multivitamin (formulary)] 1 tab PO DAILY 01/29/20 [History] Ondansetron [Zofran] 4 mg PO Q8HR PRN 01/29/20 [History] Potassium Chloride [Klor-Con 20] 20 meq PO DAILY 01/29/20 [History] Thiamine [Vitamin B-1] 100 mg PO DAILY 01/29/20 [History] Amoxic-Pot Clav 875-125Mg [Augmentin 875-125] 1 tab PO Q12HR 3 Days #6 tab 01/31/20 [Rx] Azithromycin [Zithromax] 500 mg PO DAILY 3 Days #3 tab 01/31/20 [Rx] Magnesium Oxide [Mag-Ox] 400 mg PO BID #20 tablet 01/31/20 [Rx] Nicotine 21Mg/24Hr Patch [Habitrol] 1 patch TRANSDERM DAILY #30 patch 01/31/20 [Rx] Sertraline [Zoloft] 12.5 mg PO DAILY #30 tab 01/31/20 [Rx] Follow up Appointment(s)/Referral(s): [facility] [facility] [NON-STAFF] - (Call for housekeeping service. ) Reggie Edward MD [Primary Care Provider] - 1-2 days [facility], [NON-STAFF] - Ambulatory/Diagnostic Orders: Complete Blood Count w/diff [LAB.AMB] Time Frame: 3 Days, Location: None Selected
== END 2020-01-31 10:42 | disposition home health service (06) ==
LOC: EC 17:29 → 4SSUR 21:03 → INTOOBSV 21:03 → UNDODISIN 01-31 10:42
PROVIDERS: ADMIT Family Medicine; ATTEND Family Medicine
DX: A41.9 Sepsis, unspecified organism (principal); J18.9 Pneumonia, unspecified organism; F10.239 Alcohol dependence with withdrawal, unspecified; Y90.8 Blood alcohol level of 240 mg/100 ml or more; J96.11 Chronic respiratory failure with hypoxia; E86.0 Dehydration; J44.9 Chronic obstructive pulmonary disease, unspecified; K21.9 Gastro-esophageal reflux disease without esophagitis; M19.90 Unspecified osteoarthritis, unspecified site; Z86.711 Personal history of pulmonary embolism; K74.60 Unspecified cirrhosis of liver; G40.909 Epilepsy, unspecified, not intractable, without status epilepticus; Z87.19 Personal history of other diseases of the digestive system; F17.200 Nicotine dependence, unspecified, uncomplicated; Z91.81 History of falling; E87.6 Hypokalemia; R29.6 Repeated falls; K22.70 Barrett's esophagus without dysplasia; Z86.14 Personal history of Methicillin resistant Staphylococcus aureus infection; Z96.653 Presence of artificial knee joint, bilateral; Z87.39 Personal history of other diseases of the musculoskeletal system and connective tissue; Z87.01 Personal history of pneumonia (recurrent); Z87.81 Personal history of (healed) traumatic fracture; Z98.890 Other specified postprocedural states; F41.9 Anxiety disorder, unspecified; F32.9 Major depressive disorder, single episode, unspecified; Z82.49 Family history of ischemic heart disease and other diseases of the circulatory system; Z80.3 Family history of malignant neoplasm of breast; Z99.81 Dependence on supplemental oxygen; Z79.01 Long term (current) use of anticoagulants; Z79.891 Long term (current) use of opiate analgesic; Z79.899 Other long term (current) drug therapy; Z88.5 Allergy status to narcotic agent
CPT/HCPCS: 96376 ×3; 96361 ×2; 96366 ×2; 96367; 96375 ×2; 96365; 96372; 99285; 36415; 93005; 80053; 82550; 83605 ×2; 83735; 85025; 85610; 85730; 81003; 87040; 87324; 87045; 87046; 84145; 71046; 76705; G0378 ×3; G0480; U0003; S4990 ×2; J2060 ×2; J3411; J2405; J0456; J1642; J0696 ×2; J3475; 80320

== ENCOUNTER 2020-02-15 13:24 | Emergency (ER) | payer MEDICARE ==
[2020-02-15] MEDS ORDERED: IPRATROPIUM-ALBUTEROL 3 ML NEB INHALATION STA (13:30)
--- NOTE | 2020-02-15 13:34 | ED ---
General Adult HPI <Faustino Kat - Last Filed: 02/15/20 20:09> - General Source: patient, RN notes reviewed, old records reviewed <Nemesio Rodas - Last Filed: 02/15/20 20:46> - General Stated complaint: abn labs, weakness Time Seen by Provider: 02/15/20 13:24 - History of Present Illness Initial comments: This is a 60-year-old male who presents emergency department with past medical history significant for recent surgery about a week and a half ago on his left leg for removal arrived. Patient also has a history of COPD. Patient normally is on 3 L of oxygen at home. The visiting nurse saw him today and thought he was a little bit lethargic his oxygenation was low and they called paramedics. Patient himself has no complaints and stated he did not want to come. According to EMS the patient was confused at first for just a few minutes but once they got him sitting up and he started taking deep breaths his oxygenation came back to normal and he was no longer confused. Patient denies any headache patient denies numbness weakness. Patient denies any injury or trauma. Patient denies any lightheadedness dizziness or near syncopal episode. Patient denies any chest pain or palpitations. Patient denies any worsening shortness of breath with COPD patient states this is his baseline. Patient denies any recent fever chills or cough per patient denies abdominal pain. When EMS arrived at the scene patient's oxygen was off and once they turned it on patient became much more alert and his oxygenation came up into the high 90s. (Nemesio Rodas) - Related Data Home Medications Medication Instructions Recorded Confirmed HYDROcodone/APAP 10-325MG [[place] 1 tab PO QID PRN 10/10/19 02/15/20 10-325] busPIRone HCl [Buspar] 10 mg PO BID 10/10/19 02/15/20 Pantoprazole [Protonix] 40 mg PO DAILY 01/03/20 02/15/20 Multivitamins, Thera [Multivitamin 1 tab PO DAILY 01/29/20 02/15/20 (formulary)] Ondansetron [Zofran] 4 mg PO Q8HR PRN 01/29/20 02/15/20 Thiamine [Vitamin B-1] 100 mg PO DAILY 01/29/20 02/15/20 Acetaminophen [Tylenol] 1,500 mg PO ONCE PRN 02/15/20 02/15/20 Magnesium Oxide [Mag-Ox] 400 mg PO BID-W/MEALS 02/15/20 02/15/20 Sertraline [Zoloft] 50 mg PO DAILY 02/15/20 02/15/20 Previous Rx's Medication Instructions Recorded Rivaroxaban [Xarelto] 20 mg PO DAILY #1 10/14/19 Allergies Allergy/AdvReac Type Severity Reaction Status Date / Time tramadol Allergy Mild Rash/Hives Verified 02/15/20 16:12 Review of Systems ROS Other: All systems not noted in ROS Statement are negative. <Faustino Kat - Last Filed: 02/15/20 20:09> ROS Other: All systems not noted in ROS Statement are negative. <Nemesio Rodas - Last Filed: 02/15/20 20:46> ROS Statement: Those systems with pertinent positive or pertinent negative responses have been documented in the HPI. Past Medical History Past Medical History: COPD, GERD/Reflux, Osteoarthritis (OA), Pneumonia, Pulmonary Embolus (PE), Respiratory Disorder, Seizure Disorder, Syncope Additional Past Medical History / Comment(s): acute upper GI bleed/acute blood loss anemia.Other hx: ETOH abuse, delirium tremors, last seizure many years ago, falls, rib fractures d/t falls, chronic hypoxic respiratory failure, home oxygen prn, diverticulosis, gastritis, ulcerative esophagitis, Borges's esophagus, bilateral pulmonary embolisms, L knee pain/unable to bend d/t rodding, SBO as a child/incarcerated R inguinal hernia, History of Any Multi-Drug Resistant Organisms: MRSA Date of last positivie culture/infection: 12/13/18 MDRO Source:: Knee Aspirate Past Surgical History: Appendectomy, Joint Replacement, Orthopedic Surgery, Tonsillectomy Additional Past Surgical History / Comment(s): Colonoscopies and polypectomies, EGD, 10/21/15 normal cardiac cath, multiple inguinal hernia surg., bilateral knee arthroscopies, bilateral knee arthroplasties, 8 surgeries on L knee-rodded, "had blood clots removed from lungs at [facility] Past Anesthesia/Blood Transfusion Reactions: No Reported Reaction Additional Past Anesthesia/Blood Transfusion Reaction / Comment(s): Pt has received blood in past without reactions. Past Psychological History: Anxiety, Depression Additional Psychological History / Comment(s): Pt resides alone. He has home oxygen that he uses "very rarely" Smoking Status: Current every day smoker Past Alcohol Use History: Abuse, Daily Additional Past Alcohol Use History / Comment(s): Patient is a smoker of 2 pack of cigarettes per day. He does have history of heavy alcohol use. He drinks 3-4 beers a day. Past Drug Use History: None Reported Additional Drug Use History / Comment(s): Pt states in the past he had used cocaine but none for 20 years. He denies ever abusing prescription drugs. - Past Family History Father Family Medical History: Coronary Artery Disease (CAD), Myocardial Infarction (AR) Additional Family Medical History / Comment(s): Father of a AR at the age of 73 yrs. Mother Family Medical History: Cancer Additional Family Medical History / Comment(s): BREAST CA. Mother is living <Rodas,Nemesio - Last Filed: 02/15/20 20:46> General Exam <RodasNemesio - Last Filed: 02/15/20 20:46> - General Exam Comments Initial Comments: GENERAL: Patient is well-developed and well-nourished. Patient is nontoxic and well- hydrated and is in no acute distress. ENT: Neck is soft and supple. No significant lymphadenopathy is noted. Oropharynx is clear. Moist mucous membranes. Neck has full range of motion without eliciting any pain. EYES: The sclera were anicteric and conjunctiva were pink and moist. Extraocular movements were intact and pupils were equal round and reactive to light. Eyelids were unremarkable. PULMONARY: Unlabored respirations. Good breath sounds bilaterally. No audible rales rhonc hi or wheezing was noted. CARDIOVASCULAR: There is a regular rate and rhythm without any murmurs gallops or rubs. ABDOMEN: Soft and nontender with normal bowel sounds. SKIN: Skin is clear with no lesions or rashes and otherwise unremarkable. NEUROLOGIC: Patient is alert and oriented x3. Cranial nerves II through XII are grossly intact. Motor and sensory are also intact. Normal speech, volume and content. Symmetrical smile. MUSCULOSKELETAL: Patient has a cast from his foot all the way up to his upper thigh on the left. Toes have good cap refill LYMPHATICS: No significant lymphadenopathy is noted PSYCHIATRIC: Normal psychiatric evaluation. (Nemesio Rodas) Course Vital Signs 02/15/20 02/15/20 02/15/20 13:26 13:30 14:00 Temperature 98.2 F Pulse Rate 87 86 90 Respiratory 18 22 23 Rate Blood Pressure 108/79 108/79 103/80 O2 Sat by Pulse 96 98 98 Oximetry 02/15/20 02/15/20 02/15/20 14:15 14:25 15:00 Temperature Pulse Rate 86 87 90 Respiratory 18 Rate Blood Pressure 99/60 O2 Sat by Pulse 97 Oximetry 02/15/20 02/15/20 02/15/20 16:00 19:17 20:00 Temperature Pulse Rate 89 99 89 Respiratory 17 19 18 Rate Blood Pressure 98/65 99/77 120/90 O2 Sat by Pulse 98 98 99 Oximetry Procedures <Faustino Kat - Last Filed: 02/15/20 20:09> - Procedures Initial comment: AC peripheral IVs placed under ultrasound guidance. Patient is prepped with chlorhexidine, sterile precautions are used. IV is introduced into the antecubital vein under ultrasound guidance. There is no complications, patient's tolerates the procedure well. (Faustino Kat) Medical Decision Making - Lab Data Result diagrams: 02/15/20 13:55 02/15/20 13:55 <Faustino Kat - Last Filed: 02/15/20 20:09> - Lab Data Result diagrams: 02/15/20 13:55 02/15/20 13:55 <Nemesio Rodas - Last Filed: 02/15/20 20:46> - Medical Decision Making EKG shows normal sinus rhythm at 88 bpm. It was 148 dresses 98 QT interval 426 QTC is 5:15. Patient's EKG shows some T-wave inversions in the precordial leads V1 and V2 V3 and V4 which are seen on the old EKG. CT of the chest shows no PE. Patient has had no complaints since she's been in the emergency department. Patient is requesting go home. (Nemesio Rodas) - Lab Data Lab Results 02/15/20 02/15/20 02/15/20 Range/Units 13:55 13:55 13:55 WBC 5.3 (3.8-10.6) k/uL RBC 3.55 L (4.30-5.90) m/uL Hgb 9.2 L (13.0-17.5) gm/dL Hct 32.3 L (39.0-53.0) % MCV 90.8 (80.0-100.0) fL MCH 25.9 (25.0-35.0) pg MCHC 28.5 L (31.0-37.0) g/dL RDW 23.2 H (11.5-15.5) % Plt Count 356 (150-450) k/uL Neutrophils % 60 % Lymphocytes % 24 % Monocytes % 9 % Eosinophils % 2 % Basophils % 1 % Neutrophils # 3.2 (1.3-7.7) k/uL Lymphocytes # 1.3 (1.0-4.8) k/uL Monocytes # 0.5 (0-1.0) k/uL Eosinophils # 0.1 (0-0.7) k/uL Basophils # 0.1 (0-0.2) k/uL Hypochromasia Marked Anisocytosis Moderate Macrocytosis Slight PT 10.7 (9.0-12.0) sec INR 1.0 (<1.2) APTT 26.5 (22.0-30.0) sec D-Dimer 0.80 H (<0.60) mg/L FEU Sodium 142 (137-145) mmol/L Potassium 3.6 (3.5-5.1) mmol/L Chloride 105 (98-107) mmol/L Carbon Dioxide 27 (22-30) mmol/L Anion Gap 10 mmol/L BUN 7 L (9-20) mg/dL Creatinine 0.69 (0.66-1.25) mg/dL Est GFR (CKD-EPI)AfAm >90 (>60 ml/min/1.73 sqM) Est GFR (CKD-EPI)NonAf >90 (>60 ml/min/1.73 sqM) Glucose 94 (74-99) mg/dL Plasma Lactic Acid Chet (0.7-2.0) mmol/L Calcium 7.9 L (8.4-10.2) mg/dL Magnesium 1.7 (1.6-2.3) mg/dL Total Bilirubin 0.6 (0.2-1.3) mg/dL AST 24 (17-59) U/L ALT 6 (4-49) U/L Alkaline Phosphatase 178 H (38-126) U/L Troponin I (0.000-0.034) ng/mL Total Protein 5.7 L (6.3-8.2) g/dL Albumin 2.8 L (3.5-5.0) g/dL Urine Color Urine Appearance (Clear) Urine pH (5.0-8.0) Ur Specific [place] (1.001-1.035) Urine Protein (Negative) Urine Glucose (UA) (Negative) Urine Ketones (Negative) Urine Blood (Negative) Urine Nitrite (Negative) Urine Bilirubin (Negative) Urine Urobilinogen (<2.0) mg/dL Ur Leukocyte Esterase (Negative) 02/15/20 02/15/20 02/15/20 Range/Units 13:55 13:55 19:01 WBC (3.8-10.6) k/uL RBC (4.30-5.90) m/uL Hgb (13.0-17.5) gm/dL Hct (39.0-53.0) % MCV (80.0-100.0) fL MCH (25.0-35.0) pg MCHC (31.0-37.0) g/dL RDW (11.5-15.5) % Plt Count (150-450) k/uL Neutrophils % % Lymphocytes % % Monocytes % % Eosinophils % % Basophils % % Neutrophils # (1.3-7.7) k/uL Lymphocytes # (1.0-4.8) k/uL Monocytes # (0-1.0) k/uL Eosinophils # (0-0.7) k/uL Basophils # (0-0.2) k/uL Hypochromasia Anisocytosis Macrocytosis PT (9.0-12.0) sec INR (<1.2) APTT (22.0-30.0) sec D-Dimer (<0.60) mg/L FEU Sodium (137-145) mmol/L Potassium (3.5-5.1) mmol/L Chloride (98-107) mmol/L Carbon Dioxide (22-30) mmol/L Anion Gap mmol/L BUN (9-20) mg/dL Creatinine (0.66-1.25) mg/dL Est GFR (CKD-EPI)AfAm (>60 ml/min/1.73 sqM) Est GFR (CKD-EPI)NonAf (>60 ml/min/1.73 sqM) Glucose (74-99) mg/dL Plasma Lactic Acid Chet 2.0 (0.7-2.0) mmol/L Calcium (8.4-10.2) mg/dL Magnesium (1.6-2.3) mg/dL Total Bilirubin (0.2-1.3) mg/dL AST (17-59) U/L ALT (4-49) U/L Alkaline Phosphatase (38-126) U/L Troponin I <0.012 (0.000-0.034) ng/mL Total Protein (6.3-8.2) g/dL Albumin (3.5-5.0) g/dL Urine Color Light Yellow Urine Appearance Clear (Clear) Urine pH 7.5 (5.0-8.0) Ur Specific [place] 1.005 (1.001-1.035) Urine Protein Negative (Negative) Urine Glucose (UA) Negative (Negative) Urine Ketones Negative (Negative) Urine Blood Negative (Negative) Urine Nitrite Negative (Negative) Urine Bilirubin Negative (Negative) Urine Urobilinogen <2.0 (<2.0) mg/dL Ur Leukocyte Esterase Negative (Negative) Disposition <Faustino Kat - Last Filed: 02/15/20 20:09> Is patient prescribed a controlled substance at d/c from ED?: No Time of Disposition: 20:46 <Nemesio Rodas - Last Filed: 02/15/20 20:46> Clinical Impression: Dyspnea Disposition: HOME SELF-CARE Condition: Good Instructions (If sedation given, give patient instructions): Dyspnea (ED) Referrals: Reggie Edward MD [Primary Care Provider] - 1-2 days
[2020-02-15 14:21] LABS: Anisocytosis Moderate; Basophils # (A) 0.1 k/uL (0-0.2); Basophils % (A) 1 %; Eosinophils # (A) 0.1 k/uL (0-0.7); Eosinophils % (A) 2 %; HCT 32.3 % (39.0-53.0); HGB 9.2 gm/dL (13.0-17.5); Hypochromasia Marked; Lymphocytes # (A) 1.3 k/uL (1.0-4.8); Lymphocytes % (A) 24 %; MCH 25.9 pg (25.0-35.0); MCHC 28.5 g/dL (31.0-37.0); MCV 90.8 fL (80.0-100.0); Macrocytosis Slight; Mean Platelet Volume 6.9; Monocytes # (A) 0.5 k/uL (0-1.0); Monocytes % (A) 9 %; Neutrophils # (A) 3.2 k/uL (1.3-7.7); Neutrophils % (A) 60 %; Platelet Count 356 k/uL (150-450); RBC 3.55 m/uL (4.30-5.90); RDW 23.2 % (11.5-15.5); WBC 5.3 k/uL (3.8-10.6)
[2020-02-15 14:29] LABS: ALT 6 U/L (4-49); AST 24 U/L (17-59); African American GFR (CKD) >90 (>60 ml/min/1.73 sqM); Albumin 2.8 g/dL (3.5-5.0); Alkaline Phosphatase 178 U/L (38-126); Anion Gap 10 mmol/L; Blood Urea Nitrogen 7 mg/dL (9-20); Calcium 7.9 mg/dL (8.4-10.2); Carbon Dioxide 27 mmol/L (22-30); Chloride 105 mmol/L (98-107); Glucose 94 mg/dL (74-99); Magnesium 1.7 mg/dL (1.6-2.3); Non-African American GFR(CKD) >90 (>60 ml/min/1.73 sqM); Potassium 3.6 mmol/L (3.5-5.1); Sodium 142 mmol/L (137-145); Total Bilirubin 0.6 mg/dL (0.2-1.3); Total Protein 5.7 g/dL (6.3-8.2)
[2020-02-15 14:30] LABS: Partial Thromboplastin Time 26.5 sec (22.0-30.0); Prothrombin Time 10.7 sec (9.0-12.0)
[2020-02-15 14:47] LABS: D-Dimer 0.8 mg/L FEU (<0.60)
[2020-02-15 19:16] LABS: Appearance,Urine Clear (Clear); Bilirubin,Urine Negative (Negative); Blood,Urine Negative (Negative); Color,Urine Light Yellow; Glucose,Urine (UA) Negative (Negative); Ketones,Urine Negative (Negative); Leukocyte Esterase,Urine Negative (Negative); Nitrite,Urine Negative (Negative); PH, Urine 7.5 (5.0-8.0); Protein,Urine Negative (Negative); Specific Gravity,Urine 1.005 (1.001-1.035); Urobilinogen,Urine <2.0 mg/dL (<2.0)
--- NOTE | 2020-02-15 19:54 | XR ---
EXAMINATION: XR chest 2V DATE AND TIME: 02/15/2020 6:49 PM CLINICAL INDICATION: PHH; Weakness TECHNIQUE: Departmental protocol COMPARISON: 12/11/2019 FINDINGS: There is a rather subtle pattern of bilateral perihilar ill-defined streak-like bands of ad ded opacities, only partially visualized on the frontal and lateral radiographs. The vast bulk of the pulmonary parenchyma is well expanded and clear bilaterally. The perihilar findings could represent mild bilateral perihilar subsegmental atelectasis, but also can correlate with a clinical diagnosis o f bronchitis or developing bronchopneumonia. The pleural spaces are negative. The cardiac silhouette remains borderline enlarged. The remainder of the mediastinal silhouette is un remarkable. The skeletal structures and soft tissues are negative for acute findings. IMPRESSION: Mild bilateral perihilar streak-like ill-defined opacities.
[2020-02-15 20:14] VITALS: RESP 18
--- NOTE | 2020-02-15 20:33 | CT ---
EXAMINATION TYPE: CT chest angio for PE contrast and with 3-D reconstruction renderings DATE OF EXAM: 02/15/2020 COMPARISON: 12/01/2017 HISTORY: Cough. SOB. Elevated d-dimer CT DLP: 248.3 mGycm Automated exposure control for dose reduction was used. CONTRAST: CT Chest for pulmonary embolism performed with with IV Contrast, patient injected with 100 mL of Isovue 370. FINDINGS: AIRWAYS, LUNGS, AND PLEURAL SPACES: The previous is seen coarse interstitial pattern consistent with chronic interstitial lung changes redemonstrated. On the present CT there is a subtle [place] pattern in the upper and midlung zones bilaterally, a nonspecific finding which can correlate wi th clinical pneumonitis. There is no dependent pulmonary edema pattern. The pleural spaces are negati ve. Airways are unremarkable. Lungs are grossly clear, there is no concerning parenchymal mass or nod ule identified. There is no pleural effusion or pneumothorax seen. The tracheobronchial tree is pa tent. MEDIASTINUM: There is satisfactory enhancement of the pulmonary artery and its branches; there is no CT evidence for pulmonary embolism. The ascending aorta is mildly enlarged in caliber, unchanged, ad suring just over 4 cm caliber. Scattered atherosclerotic intimal calcifications are seen throughout t he visualized arterial anatomy. There is mild/moderate cardiomegaly and coronary calcifications. There is no pericardial effusion. Th ere is prominent right ventricular and right atrial dilation, with mass effect upon the left ventricl e and with dilation of the pulmonary arterial tree, consistent with a clinical diagnosis of pulmonary hypertension. There is no pericardial effusion. Esophageal distention is also redemonstrated, etiology unclear. No mediastinal or hilar adenopathy. OTHER: No additional significant abnormality is seen. IMPRESSION: 1. Negative for pulmonary embolism. 2. Chronic interstitial lung changes with evidence of pulmonary hypertension and right heart chamber enlargement, as discussed.
[2020-02-15 21:49] VITALS: BP 108/67; PULSE 77; TEMP 98
== END 2020-02-15 21:34 | disposition home or self-care (01) ==
LOC: EC 13:24
DX: R06.00 Dyspnea, unspecified (principal); F41.9 Anxiety disorder, unspecified; F32.9 Major depressive disorder, single episode, unspecified; F17.200 Nicotine dependence, unspecified, uncomplicated; K21.9 Gastro-esophageal reflux disease without esophagitis; Z79.899 Other long term (current) drug therapy; Z88.6 Allergy status to analgesic agent; Z86.14 Personal history of Methicillin resistant Staphylococcus aureus infection; Z96.653 Presence of artificial knee joint, bilateral
CPT/HCPCS: 99285; 36573; 36415; 94640; 93005; 85379; 80053; 83605; 83735; 84484; 85025; 85610; 85730; 81003; 71046; 71275; Q9967